=== PATIENT | female | born 1970 | race Caucasian/White ===

== ENCOUNTER 2017-05-04 23:06 | Inpatient (IN) | payer OTHER ==
[~2017-05-04] VITALS: Ht 165.1 cm; Wt 106.1 kg
[2017-05-05] VITALS (10 sets, daily range): BP systolic 104–139; BP diastolic 58–90
[2017-05-05] MEDS ORDERED: PROVENTIL HFA6.7 GM IH (00:58)
[2017-05-05] MEDS ORDERED: DEXT30CA6 PO (00:58)
[2017-05-05] MEDS ORDERED: FLUT1DIS5 IH (00:58)
[2017-05-05] MEDS ORDERED: BUSP10TA PO (00:58)
[2017-05-05] MEDS ORDERED: RIVA15TA PO (00:58)
[2017-05-05] MEDS ORDERED: TRAZ50TA15 PO (00:58)
[2017-05-05] MEDS ORDERED: METO100T11 PO (00:58)
[2017-05-05] MEDS ORDERED: TRAZ300T2 PO (00:58)
[2017-05-05] MEDS ORDERED: SUCR1TAB35 PO (00:58)
[2017-05-05] MEDS ORDERED: PANT40TA3 PO (00:58)
[2017-05-05] MEDS ORDERED: LOVA40TA2 PO (00:58)
[2017-05-05] MEDS ORDERED: ALPR0.5T PO (00:58)
[2017-05-05] MEDS ORDERED: MELO15TA23 PO (00:58)
[2017-05-05] MEDS ORDERED: TRAM50TA PO (00:58)
[2017-05-05] MEDS ORDERED: CYCL1DRO EACHEYE (00:58)
[2017-05-05] MEDS ORDERED: NON FORMULARY ITEM (Albuterol Sulfate (Proventil Hfa Inhaler) 2 PUFF) IH PRN (02:15)
[2017-05-05] MEDS ORDERED: ACETAMINOPHEN 325 MG TABLET. PO PRN (02:15)
[2017-05-05] MEDS ORDERED: traZODone 50 MG TABLET. PO PRN (02:15)
[2017-05-05] MEDS ORDERED: NON FORMULARY ITEM (Fluticasone/Salmeterol (Advair 500-50 Diskus) 1 PUFF) IH SCH (02:30)
[2017-05-05] MEDS: cycloSPORINE 0.05% OPTH 1 DROP DROPERETTE OU SCH ×3 (02:43→20:50)
[2017-05-05] MEDS: busPIRone 10 MG TABLET. PO SCH ×2 (02:43→20:50)
[2017-05-05] MEDS: CETIRIZINE HCL 10 MG TABLET. PO SCH ×2 (02:43→20:50)
[2017-05-05] MEDS: SUCRALFATE 1 GM TABLET. PO SCH ×5 (02:43→22:03)
[2017-05-05] MEDS: PANTOPRAZOLE 40 MG TABLET.DR. PO SCH ×3 (02:43→17:07)
[2017-05-05] MEDS: ALPRAZolam 0.5 MG TABLET PO PRN ×2 (02:43→22:16)
[2017-05-05] MEDS: traMADol 50 MG TABLET PO PRN ×3 (02:50→22:17)
[2017-05-05] MEDS: traZODone 100 MG TABLET. PO SCH ×2 (03:00→20:50)
[2017-05-05] MEDS ORDERED: ALBUTEROL SULFATE 2.5 MG/3 ML NEBU. NEB PRN (03:15)
[2017-05-05 05:49] LABS: BASO % 1 % (0-3); EOS % 4 % (0-3); HEMATOCRIT 31.9 % (36.0-47.0); LYMPH # 2.7 x10^3/uL (1.0-4.8); LYMPH % 39 % (24-48); MEAN CORPUSCULAR HEMOGLOBIN 31 pg (25-35); MEAN CORPUSCULAR HGB CONC 34 g/dL (31-37); MEAN CORPUSCULAR VOLUME 91 fL (79-100); MONO % 9 % (0-9); NEUT % 47 % (31-73); PLATELET COUNT 228 x10^3/uL (140-400); RED BLOOD COUNT 3.52 x10^6/uL (3.50-5.40); RED CELL DISTRIBUTION WIDTH 13.4 % (11.5-14.5)
[2017-05-05 06:03] LABS: INR 1.1 (0.8-1.1); PROTHROMBIN TIME PATIENT 13.5 SEC (11.7-14.0)
[2017-05-05 06:06] LABS: ALBUMIN/GLOBULIN RATIO 0.9 (1.0-1.7); CALCIUM 7.6 mg/dL (8.5-10.1); CREATININE 0.9 mg/dL (0.6-1.0); GFR 67.7; POTASSIUM 3.5 mmol/L (3.5-5.1); TOTAL BILIRUBIN 0.3 mg/dL (0.2-1.0); TOTAL PROTEIN 6.5 g/dL (6.4-8.2)
[2017-05-05] MEDS: BUDESONIDE 0.5 MG/2 ML NEBU. NEB SCH ×2 (07:31→20:09)
[2017-05-05] MEDS: ALBUTEROL SULFATE 2.5 MG/3 ML NEBU. NEB SCH ×4 (07:32→20:09)
[2017-05-05] MEDS: FLUTICASONE 50MCG/NASAL SPRAY 16GM BOTTLE. NS SCH (08:18)
[2017-05-05] MEDS: METOPROLOL SUCC 24HR ER 100 MG TAB.ER.24H. PO SCH (08:24)
[2017-05-05] MEDS: HYDROcodone/APAP 5/325MG 1 TAB TABLET PO PRN ×2 (08:37→19:57)
[2017-05-05] MEDS ORDERED: AMPHETAMINE PO SCH (09:00)
[2017-05-05] MEDS ORDERED: DEXTROAMPHETAMINE PO SCH (09:00)
--- NOTE | 2017-05-05 09:06 | PDOC1 ---
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 DID NOT TAKE this med. She then went to urinate, and had large amount of blood and blood clots in her underwear. She then had onset of abd pain, first in upper abdomen, then lower pain with some cramping consistency. Her PE was years ago , but she has persistently high D-dimer, without worsening dyspnea Pain currently 04/30, no stool since arriving here just after midnight. Past Medical History Cardiovascular: HTN, Hyperlipidemia Pulmonary: Pulmonary embolus GI: No pertinent hx Heme/Onc: No pertinent hx Hepatobiliary: No pertinent hx Psych: Anxiety Musculoskeletal: low back pain Rheumatologic: No pertinent hx ENT: No pertinent hx Renal/: No pertinent hx Endocrine: No pertinent hx Family History Family History: No Significant Social History Smoke: No ALCOHOL: none Drugs: None Current Medications Current Medications Current Medications Ondansetron HCl (Zofran) 4 mg PRN Q6HRS PRN IV NAUSEA/VOMITING; Start 05/05/17 at 02:15 Acetaminophen (Tylenol) 650 mg PRN Q6HRS PRN PO PAIN Last administered on 02:44; Start 05/05/17 at 02:15 Acetaminophen/ Hydrocodone Bitart (Lortab 5/325) 1 tab PRN Q6HRS PRN PO PAIN Last administered on 05/05/17 08:37; Start 05/05/17 at 02:15 Alprazolam (Xanax) 0.5 mg PRN DAILY PRN PO ANXIETY / AGITATION Last administered on 05/05/17 02:43; Start 05/05/17 at 02:15 Buspirone HCl (Buspar) 20 mg HS PO Last administered on 05/05/17 02:43; Start 05/05/17 at 02:30 Cyclosporine (Restasis) 1 drop BID OU Last administered on 05/05/17 08:18; Start 05/05/17 at 02:30 Metoprolol Succinate (Toprol Xl) 100 mg DAILY PO Last administered on 08:24; Start 05/05/17 at 09:00 Pantoprazole Sodium (Protonix) 40 mg BIDBFRMEAL PO Last administered on 08:17; Start 05/05/17 at 02:30 Sucralfate (Carafate) 1 gm QID PO Last administered on 05/05/17 08:17; Start 05/05/17 at 02:30 Tramadol HCl (Ultram) 100 mg PRN Q6HRS PRN PO PAIN Last administered on 02:50; Start 05/05/17 at 02:15 Trazodone HCl (Desyrel) 50 mg PRN DAILY PRN PO ANXIETY; Start 05/05/17 at 02:15 Non-Formulary Medication 2 puff PRN Q12HRS PRN IH FOR ASTHMA; Start 05/05/17 at 02:15; Status UNV Non-Formulary Medication 30 mg DAILY PO ; Start 05/05/17 at 09:00; Status UNV Non-Formulary Medication 1 puff BID IH ; Start 05/05/17 at 02:30; Status UNV Atorvastatin Calcium (Lipitor) 10 mg HS PO ; Start 05/05/17 at 21:00 Trazodone HCl (Desyrel) 300 mg HS PO Last administered on 05/05/17 03:00; Start 05/05/17 at 03:00 Cetirizine HCl (ZyrTEC) 10 mg QHS PO Last administered on 05/05/17 02:43; Start 05/05/17 at 02:30 Fluticasone Propionate (Flonase) 2 spray DAILY NS Last administered on 08:18; Start 05/05/17 at 09:00 Albuterol Sulfate (Ventolin Neb Soln) 2.5 mg PRN Q12HRS PRN NEB SHORTNESS OF BREATH; Start 05/05/17 at 03:15 Budesonide (Pulmicort) 0.5 mg RTBID NEB Last administered on 05/05/17 07:31; Start 05/05/17 at 08:00 Albuterol Sulfate (Ventolin Neb Soln) 2.5 mg RTQID NEB Last administered on 07:32; Start 05/05/17 at 08:00 Active Scripts Active Reported Restasis (Cyclosporine) 1 Each Droperette 1 Drop EACHEYE BID Proventil Hfa Inhaler (Albuterol Sulfate) 6.7 Gm Hfa.aer.ad 2 Puff IH PRN Q12HRS PRN Advair 500-50 Diskus (Fluticasone/Salmeterol) 1 Each Disk.w.dev 1 Puff IH BID Tramadol Hcl 50 Mg Tablet 100 Mg PO Q6H PRN Meloxicam 15 Mg Tablet 15 Mg PO DAILY Lovastatin 40 Mg Tablet 40 Mg PO HS Adderall Xr 30 Mg Capsule (Dextroamphetamine/Amphetamine) 30 Mg Cap.er.24h 30 Mg PO DAILY Xanax (Alprazolam) 0.5 Mg Tablet 0.5 Mg PO PRN DAILY PRN Trazodone Hcl 50 Mg Tablet 50 Mg PO PRN DAILY PRN Trazodone Hcl 300 Mg Tablet 300 Mg PO HS Protonix (Pantoprazole Sodium) 40 Mg Tablet.dr 40 Mg PO BID Carafate (Sucralfate) 1 Gm Tablet 1 Tab PO QID Xarelto (Rivaroxaban) 15 Mg Tablet 15 Mg PO DAILY Metoprolol Succinate ( Xl ) (Metoprolol Succinate) 100 Mg Tab.er.24h 100 Mg PO DAILY Buspirone Hcl 10 Mg Tablet 20 Mg PO HS Allergies Allergies: Coded Allergies: codeine (Verified Allergy, Unknown, 05/05/17) morphine (Verified Allergy, Unknown, 05/05/17) ROS General: YES: Malaise, No: Chills, Night Sweats, Fatigue, Appetite, Other PSYCHOLOGICAL ROS: YES: Anxiety, Sleep disturbances, No: Behavioral Disorder, Concentration difficultie, Decreased libido, Depression, Disorientation, Hallucinations, Hostility, Irritablity, Memory difficulties, Mood Swings, Obsessive thoughts, Physical abuse Eyes: No Blurry vision, No Decreased vision, No Double vision, No Dry eyes, No Excessive tearing, No Eye Pain, No Itchy Eyes, No Loss of vision, No Photophobia , No Scotomata, No Uses contacts, No Uses glasses, No Other HEENT: No: Heacaches, Visual Changes, Hearing change, Nasal congestion, Nasal discharge, Oral lesions, Sinus pain, Sore Throat, Epistaxis, Sneezing, Snoring, Tinnitus, Vertigo, Vocal changes, Other Respiratory: No: Cough, Hemoptysis, Orthopnea, Pleuritic Pain, Shortness of breath, SOB with excertion, Sputum Changes, Stridor, Tachypnea, Wheezing, Other Cardiovascular: No Chest Pain, No Palpitations, No Orthopnea, No Paroxysmal Noc. Dyspnea, No Edema, No Lt Headedness, No Other Gastrointestinal: Yes Abdominal Pain, Yes Hematochezia, No Nausea, No Vomiting, No Diarrhea, No Constipation, No Melena, No Other Genitourinary: No Dysuria, No Frequency, No Incontinence, No Hematuria, No Retention, No Discharge, No Urgency, No Pain, No Flank Pain, No Other, No , No , No , No , No , No , No Musculoskeletal: No Gait Disturbance, No Joint Pain, No Joint Stiffness, No Joint Swelling, No Muscle Pain, No Muscular Weakness, No Pain In:, No Swelling In:, No Other Neurological: No Behavorial Changes, No Bowel/Bladder ControlChng, No Confusion , No Dizziness, No Gait Disturbance, No Headaches, No Impaired Coord/balance, No Memory Loss, No Numbness/Tingling, No Seizures, No Speech Problems, No Tremors, No Visual Changes, No Weakness, No Other Skin: No Dry Skin, No Eczema, No Hair Changes, No Lumps, No Mole Changes, No Mottling, No Nail Changes, No Pruritus, No Rash, No Skin Lesion Changes, No Other, No Acne Physical Exam General: Alert, Oriented X3, Cooperative, mild distress HEENT: Atraumatic, PERRLA, Mucous membr. moist/pink Lungs: Clear to auscultation, Normal air movement Heart: S1S2, no murmurs Abdomen: Normal bowel sounds, Soft (tender, no peritoneal sign, no guarding, no rebound, ) Rectal Exam: not examined PELVIC: Nml ext uterus Extremities: No cyanosis, No edema, Normal pulses Neuro: Normal gait, Normal tone, Sensation intact Psych/Mental Status: Mood NL Vitals Vitals Vital Signs Date Time Temp Pulse Resp B/P (MAP) Pulse Ox O2 Delivery O2 Flow Rate FiO2 05/05/17 08:37 Room Air 05/05/17 08:24 78 107/77 05/05/17 07:32 94 05/05/17 07:00 97.9 16 97.9 Labs Labs Laboratory Tests Test 05/05/17 05:30 White Blood Count 7.0 x10^3/uL (4.0-11.0) Red Blood Count 3.52 x10^6/uL (3.50-5.40) Hemoglobin 11.0 g/dL (12.0-15.5) Hematocrit 31.9 % (36.0-47.0) Mean Corpuscular Volume 91 fL (79-100) Mean Corpuscular Hemoglobin 31 pg (25-35) Mean Corpuscular Hemoglobin Concent 34 g/dL (31-37) Red Cell Distribution Width 13.4 % (11.5-14.5) Platelet Count 228 x10^3/uL (140-400) Neutrophils (%) (Auto) 47 % (31-73) Lymphocytes (%) (Auto) 39 % (24-48) Monocytes (%) (Auto) 9 % (0-9) Eosinophils (%) (Auto) 4 % (0-3) Basophils (%) (Auto) 1 % (0-3) Neutrophils # (Auto) 3.3 x10^3uL (1.8-7.7) Lymphocytes # (Auto) 2.7 x10^3/uL (1.0-4.8) Monocytes # (Auto) 0.6 x10^3/uL (0.0-1.1) Eosinophils # (Auto) 0.3 x10^3/uL (0.0-0.7) Basophils # (Auto) 0.0 x10^3/uL (0.0-0.2) Prothrombin Time 13.5 SEC (11.7-14.0) Prothromb Time International Ratio 1.1 (0.8-1.1) Sodium Level 142 mmol/L (136-145) Potassium Level 3.5 mmol/L (3.5-5.1) Chloride Level 106 mmol/L (98-107) Carbon Dioxide Level 29 mmol/L (21-32) Anion Gap 7 (6-14) Blood Urea Nitrogen 11 mg/dL (7-20) Creatinine 0.9 mg/dL (0.6-1.0) Estimated GFR (Cockcroft-Gault) 67.7 BUN/Creatinine Ratio 12 (6-20) Glucose Level 98 mg/dL (70-99) Calcium Level 7.6 mg/dL (8.5-10.1) Total Bilirubin 0.3 mg/dL (0.2-1.0) Aspartate Amino Transf (AST/SGOT) 27 U/L (15-37) Alanine Aminotransferase (ALT/SGPT) 44 U/L (14-59) Alkaline Phosphatase 83 U/L (46-116) Total Protein 6.5 g/dL (6.4-8.2) Albumin 3.0 g/dL (3.4-5.0) Albumin/Globulin Ratio 0.9 (1.0-1.7) Laboratory Tests Test 05/05/17 05:30 White Blood Count 7.0 x10^3/uL (4.0-11.0) Red Blood Count 3.52 x10^6/uL (3.50-5.40) Hemoglobin 11.0 g/dL (12.0-15.5) Hematocrit 31.9 % (36.0-47.0) Mean Corpuscular Volume 91 fL (79-100) Mean Corpuscular Hemoglobin 31 pg (25-35) Mean Corpuscular Hemoglobin Concent 34 g/dL (31-37) Red Cell Distribution Width 13.4 % (11.5-14.5) Platelet Count 228 x10^3/uL (140-400) Neutrophils (%) (Auto) 47 % (31-73) Lymphocytes (%) (Auto) 39 % (24-48) Monocytes (%) (Auto) 9 % (0-9) Eosinophils (%) (Auto) 4 % (0-3) Basophils (%) (Auto) 1 % (0-3) Neutrophils # (Auto) 3.3 x10^3uL (1.8-7.7) Lymphocytes # (Auto) 2.7 x10^3/uL (1.0-4.8) Monocytes # (Auto) 0.6 x10^3/uL (0.0-1.1) Eosinophils # (Auto) 0.3 x10^3/uL (0.0-0.7) Basophils # (Auto) 0.0 x10^3/uL (0.0-0.2) Prothrombin Time 13.5 SEC (11.7-14.0) Prothromb Time International Ratio 1.1 (0.8-1.1) Sodium Level 142 mmol/L (136-145) Potassium Level 3.5 mmol/L (3.5-5.1) Chloride Level 106 mmol/L (98-107) Carbon Dioxide Level 29 mmol/L (21-32) Anion Gap 7 (6-14) Blood Urea Nitrogen 11 mg/dL (7-20) Creatinine 0.9 mg/dL (0.6-1.0) Estimated GFR (Cockcroft-Gault) 67.7 BUN/Creatinine Ratio 12 (6-20) Glucose Level 98 mg/dL (70-99) Calcium Level 7.6 mg/dL (8.5-10.1) Total Bilirubin 0.3 mg/dL (0.2-1.0) Aspartate Amino Transf (AST/SGOT) 27 U/L (15-37) Alanine Aminotransferase (ALT/SGPT) 44 U/L (14-59) Alkaline Phosphatase 83 U/L (46-116) Total Protein 6.5 g/dL (6.4-8.2) Albumin 3.0 g/dL (3.4-5.0) Albumin/Globulin Ratio 0.9 (1.0-1.7) VTE Prophylaxis Ordered VTE Prophylaxis Devices: Yes VTE Pharmacological Prophylaxi: Contraindicated Assessment/Plan Assessment/Plan BRBPR, Hematochezia, acute blood loss Prior PE, coagulopathy, 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 ANNELIESE CHAVES MD May 05, 2017 09:05
[2017-05-05] MEDS: POTASSIUM CL 20MEQ D5-0.45NACL 1,000 ML IV SCH ×2 (10:13→22:02)
--- NOTE | 2017-05-05 10:28 | PDOC2 ---
GI CONSULT Reason For Consult: Rectal bleeding HPI: HPI: 47 y/o female transferred from [facility]. PMH significant for PE, stopped Xarelto in 01/2017, was advised to restart yesterday but didn't. Takes ASA QD, Meloxicam QD , pantoprazole QD-BID, and Carafate QID. Had all teeth pulled earlier this month, additionally took 6-8 ibuprofen at a time, stopped 8 days ago. Has been vomiting nightly, no hematemesis. Yesterday passed blood clots w/ stool, then had another episode of straight red blood. Upper abd pain and "firmness" spreading down. Intentional weight loss, 11 pounds. Last EGD in 2013 w/ Dr. Caterina Condon, only hiatal hernia. Colonoscopy long ago. Hgb 11.5 (now 11), INR 1.1, CMP unremarkable, hemoccult positive. PMH: PMH: HTN, HLD, PE, asthma, KRISS, GERD, hiatal hernia, DM, nephrolithiasis, ADHD, anxiety, , hysterectomy, appendectomy, cholecystectomy FH: Family History: Other (Crohn's, pancreatitis) Social History: Smoke: <1 pack per day ALCOHOL: none Drugs: None ROS: GEN: Denies fevers, chills, sweats HEENT: Denies blurred vision, sore throat CV: Denies chest pain RESP: Denies shortness of air, cough GI: Per HPI : Denies hematuria, dysuria ENDO: +weight loss NEURO: Denies confusion, dizziness MSK: +fatigue +arthritis SKIN: Denies jaundice, pruritus Vitals: Vitals: Vital Signs Date Time Temp Pulse Resp B/P (MAP) Pulse Ox O2 Delivery O2 Flow Rate FiO2 05/05/17 09:40 Room Air 05/05/17 08:24 78 107/77 05/05/17 07:32 94 05/05/17 07:00 97.9 16 97.9 Labs: Labs: Laboratory Tests Test 05/05/17 05:30 White Blood Count 7.0 x10^3/uL (4.0-11.0) Red Blood Count 3.52 x10^6/uL (3.50-5.40) Hemoglobin 11.0 g/dL (12.0-15.5) Hematocrit 31.9 % (36.0-47.0) Mean Corpuscular Volume 91 fL (79-100) Mean Corpuscular Hemoglobin 31 pg (25-35) Mean Corpuscular Hemoglobin Concent 34 g/dL (31-37) Red Cell Distribution Width 13.4 % (11.5-14.5) Platelet Count 228 x10^3/uL (140-400) Neutrophils (%) (Auto) 47 % (31-73) Lymphocytes (%) (Auto) 39 % (24-48) Monocytes (%) (Auto) 9 % (0-9) Eosinophils (%) (Auto) 4 % (0-3) Basophils (%) (Auto) 1 % (0-3) Neutrophils # (Auto) 3.3 x10^3uL (1.8-7.7) Lymphocytes # (Auto) 2.7 x10^3/uL (1.0-4.8) Monocytes # (Auto) 0.6 x10^3/uL (0.0-1.1) Eosinophils # (Auto) 0.3 x10^3/uL (0.0-0.7) Basophils # (Auto) 0.0 x10^3/uL (0.0-0.2) Prothrombin Time 13.5 SEC (11.7-14.0) Prothromb Time International Ratio 1.1 (0.8-1.1) Sodium Level 142 mmol/L (136-145) Potassium Level 3.5 mmol/L (3.5-5.1) Chloride Level 106 mmol/L (98-107) Carbon Dioxide Level 29 mmol/L (21-32) Anion Gap 7 (6-14) Blood Urea Nitrogen 11 mg/dL (7-20) Creatinine 0.9 mg/dL (0.6-1.0) Estimated GFR (Cockcroft-Gault) 67.7 BUN/Creatinine Ratio 12 (6-20) Glucose Level 98 mg/dL (70-99) Calcium Level 7.6 mg/dL (8.5-10.1) Total Bilirubin 0.3 mg/dL (0.2-1.0) Aspartate Amino Transf (AST/SGOT) 27 U/L (15-37) Alanine Aminotransferase (ALT/SGPT) 44 U/L (14-59) Alkaline Phosphatase 83 U/L (46-116) Total Protein 6.5 g/dL (6.4-8.2) Albumin 3.0 g/dL (3.4-5.0) Albumin/Globulin Ratio 0.9 (1.0-1.7) Allergies: Coded Allergies: codeine (Verified Allergy, Unknown, 05/05/17) morphine (Verified Allergy, Unknown, 05/05/17) Medications: Current Medications Medications (Trade) Dose Ordered Sig/Nikki Route PRN Reason Start Time Stop Time Status Last Admin Dose Admin Acetaminophen (Tylenol) 650 mg PRN Q6HRS PRN PO PAIN 05/05/17 02:15 05/05/17 02:44 Acetaminophen/ Hydrocodone Bitart (Lortab 5/325) 1 tab PRN Q6HRS PRN PO PAIN 05/05/17 02:15 05/05/17 08:37 Alprazolam (Xanax) 0.5 mg PRN DAILY PRN PO ANXIETY / AGITATION 05/05/17 02:15 05/05/17 02:43 Buspirone HCl (Buspar) 20 mg HS PO 05/05/17 02:30 05/05/17 02:43 Cyclosporine (Restasis) 1 drop BID OU 05/05/17 02:30 05/05/17 08:18 Metoprolol Succinate (Toprol Xl) 100 mg DAILY PO 05/05/17 09:00 05/05/17 08:24 Pantoprazole Sodium (Protonix) 40 mg BIDBFRMEAL PO 05/05/17 02:30 05/05/17 08:17 Sucralfate (Carafate) 1 gm QID PO 05/05/17 02:30 05/05/17 08:17 Tramadol HCl (Ultram) 100 mg PRN Q6HRS PRN PO PAIN 05/05/17 02:15 05/05/17 02:50 Trazodone HCl (Desyrel) 300 mg HS PO 05/05/17 03:00 05/05/17 03:00 Cetirizine HCl (ZyrTEC) 10 mg QHS PO 05/05/17 02:30 05/05/17 02:43 Fluticasone Propionate (Flonase) 2 spray DAILY NS 05/05/17 09:00 05/05/17 08:18 Budesonide (Pulmicort) 0.5 mg RTBID NEB 05/05/17 08:00 05/05/17 07:31 Albuterol Sulfate (Ventolin Neb Soln) 2.5 mg RTQID NEB 05/05/17 08:00 05/05/17 07:32 Potassium Chloride/Dextrose/ Sod Cl 1,000 ml @ 125 mls/hr Q8H IV 05/05/17 09:15 05/05/17 10:13 Imaging: Imaging: Reviewed per [facility] recs. PE: GEN: NAD, overweight HEENT: Atraumatic, PERRL LUNGS: CTAB anteriorly HEART: RRR ABD: BS+, epigastric pain to BUQ, less so lower EXTREMITY: No edema SKIN: No rashes, no jaundice NEURO/PSYCH: A & O 3 A/P: A/P: Vomiting, rectal bleeding, abdominal pain, NSAID use -vomiting during the night recently -rectal bleeding started yesterday GERD -on PPI QD-BID -last EGD 2013 w/ hiatal hernia CRC screen -colonoscopy long ago H/o PE, elevated D-dimer recently -has not restarted Xarelto -per primary OA, recent dental extractions -- NPO for EGD this afternoon. If unrevealing, colonoscopy tomorrow after prep. Called to GI lab, medical receptionist assistant on floor. KARY VELASQUEZ May 05, 2017 10:28
[2017-05-05] MEDS ORDERED: NICOTINE POLACRILEX 2MG GUM PACKAGE of 12. BC PRN (11:45)
[2017-05-05] MEDS ORDERED: NICOTINE 21MG PATCH. TD PRN (11:45)
[2017-05-05] MEDS: ONDANSETRON PF 4 MG/2 ML VIAL. IV PRN ×2 (12:24→19:57)
[2017-05-05] MEDS: fentaNYL PF VIAL 100 MCG/2 ML VIAL IV PRN ×2 (12:25→15:53)
[2017-05-05 12:59] LABS: HEMATOCRIT 31.5 % (36.0-47.0); HEMOGLOBIN 10.9 g/dL (12.0-15.5)
[2017-05-05] MEDS ORDERED: IV NORMAL SALINE 1000ML BAG 1,000 ML IV SCH (14:00)
--- NOTE | 2017-05-05 14:26 | ACF ---
Admission Forms Criteria GASTROINTESTINAL BLEEDING Clinical Indications for Inpatient Care (Place 'X' for any and all applicable criteria): Ongoing inpatient care may be indicated for gastrointestinal bleeding with ANY ONE of the following (4)(20)(21)(22)(23)(24): [X ]I. Active bleeding (eg, fresh voluminous blood in emesis or nasogastric aspirate, or per rectum) [ ]II. Hemodynamic instability [ ]III. Anticoagulation therapy or coagulopathy ((eg, advanced liver disease, irreversible anticoagulation) [ ]IV. Ischemic colitis (22) [ ]V. Endoscopy showing arterial bleeding, adherent clot, nonbleeding visible vessel, varices, flat red spots, ulcer size greater than 2 cm, or portal hypertensive gastropathy [ ]. High-risk low platelet count [ ]VII. Anemia requiring inpatient care as indicated by ANY ONE of the following a)[ ] Cognitive impairment b)[ ] Syncope c)[ ] Heart failure d)[ ] Chest pain e)[ ] Dyspnea f)[ ] Other findings suggesting inadequate perfusion (eg, peripheral or myocardial ischemia, end organ dysfunction) [ ]VIII. High-risk low platelet count [ ]IX. Suspected variceal cause of bleeding as indicated by ANY ONE of the following(27)(28): a)[ ] Known varices b)[ ] Hepatomegaly or splenomegaly c)[ ] Ascites d)[ ] Jaundice or scleral icterus e)[ ] History of liver disease (eg, cirrhosis) f)[ ] Physical findings of portal hypertension (eg, caput medusa) g)[ ] Comorbid disorder indicating risk for portal vein thrombosis (eg , abdominal surgery, sepsis, shock, exchange transfusion, prior umbilical vein catheterization) Extended stay may be needed until ALL of the following are present(20)(38)(47): [ ]a) Hemodynamic stability [ ]b) No evidence of active bleeding (eg, stable Hematocrit) [ ]c) Platelet count, prothrombin time, and partial thromboplastin time acceptable for next level of care [ ]d) Surgical or other acute intervention not needed [ ]e) Oral hydration and diet tolerated The original [email or web address] content created by [employer] has been revised. The portions of the content which have been revised are identified through the use of italic text or in bold, and [employer] has neither reviewed nor approved the modified material. All other unmodified content is copyright [facility]. Please see references footnoted in the original [facility] edition 2016 Admission Criteria Met?: Yes GENIE KINGSLEY May 05, 2017 14:26
[2017-05-05] MEDS ORDERED: LIDOCAINE 2% PF Vial for OR 5 ML VIAL. ONE (14:39)
[2017-05-05] MEDS ORDERED: PROPOFOL 20 ML IV ONE (14:39)
--- NOTE | 2017-05-05 14:50 | PDOC4 ---
Operative Note Operative Note EGD Meds Propofol per anesthesia Pre-op dx melena/acute blood loss anemia Post-op dx non-erosive gastritis Plan clear liquids colonoscopy after prep in am YUKO DAMON MD May 05, 2017 14:50
[2017-05-05] MEDS ORDERED: BISACODYL 5 MG TABLET.DR. PO ONE ×3 (15:00→17:00)
[2017-05-05] MEDS ORDERED: POLYETHYLENE GLYCOL 3350 238 GM POWDER PO ONE (15:00)
--- NOTE | 2017-05-05 17:02 | PDOC ---
Provider Note Provider Note Hem Onc consult: -Hematochezia, acute blood loss - GI w/u ongoing. -Prior PE 2014, agree not to resume xarelto due to GI bleed. -Ecchymoses due to aspirin. see dictation [id number] KAYDEN MATHIS MD May 05, 2017 17:02
[2017-05-05 17:25] LABS: % SAT IRON 34 % (15-34); IRON,SERUM 87 ug/dL (50-170)
[2017-05-05 17:54] LABS: VITAMIN-B12 448 pg/mL (247-911)
[2017-05-05] MEDS ORDERED: ATORVASTATIN CALCIUM 10 MG TABLET. PO SCH (21:00)
[2017-05-06] VITALS (7 sets, daily range): BP systolic 110–145; BP diastolic 58–104
[2017-05-06] MEDS: POTASSIUM CL 20MEQ D5-0.45NACL 1,000 ML IV SCH ×3 (01:15→17:15)
[2017-05-06] MEDS: HYDROcodone/APAP 5/325MG 1 TAB TABLET PO PRN (03:32)
--- NOTE | 2017-05-06 03:41 | CONS ---
DATE OF CONSULTATION: 05/05/2017 REQUESTING PHYSICIAN: Dr. Lulu Man. REASON FOR CONSULTATION: Anemia due to GI bleed and history of pulmonary embolism and the patient has easy bruisability. HISTORY OF PRESENT ILLNESS: The patient is a 47-year-old female who reports having had a pneumonia in 02/2015 requiring hospitalization. On 04/27/2015, she developed pulmonary embolism and she was started on Xarelto. In 01/2017, the Xarelto was discontinued as her D-dimer had improved as per the patient. On 04/19/2017, she was noted to have an elevated D-dimer and she was asked to resume Xarelto, but she has not yet resumed it. She was evaluated by Hematology/Oncology at [facility] on 05/02/2017 for a consultation and she was recommended to resume Xarelto. She also underwent further laboratory evaluation on 05/02/2017 and her D-dimer was 1.06. Protein C activity was 114, protein S activity was 98, prothrombin gene mutation was negative. Beta-2 glycoprotein levels were normal. Cardiolipin IgM antibody was mildly elevated at 15. She denies any recurrence of pulmonary embolism. There is no history of DVT. She was started on aspirin on 05/02/2017 and then she noticed easy bruisability since the initiation of aspirin. On 05/04/2017, she noticed bright red blood in the stools and hence she came into the Emergency Room at [facility]. She underwent CT scan of the abdomen and pelvis that did not reveal any acute abnormalities and she was transferred to [facility]. She was evaluated by Gastroenterology and she underwent an upper endoscopy on 05/05/2017 that revealed nonerosive gastritis. She is going to have a colonoscopy on 05/06/2017. She denies nosebleeds or gum bleeding. No hematuria or hemoptysis, no hematemesis. She does have nausea, vomiting at times. PAST MEDICAL HISTORY: Hypertension, hyperlipidemia, pulmonary embolism in 2014, bronchial asthma, obstructive sleep apnea, GERD, hiatal hernia, diabetes mellitus, nephrolithiasis, ADHD, anxiety, caesarean section, hysterectomy, appendectomy, and cholecystectomy. FAMILY HISTORY: Positive for Crohn disease and pancreatitis. SOCIAL HISTORY: She smokes less than 1 pack a day. No alcohol abuse. REVIEW OF SYSTEMS: A 12-point review of system was performed. Pertinent positives are mentioned in the history of present illness. Rest of the system review is negative. PHYSICAL EXAMINATION: GENERAL APPEARANCE: The patient is a 47-year-old female who is in no acute cardiorespiratory distress. VITAL SIGNS: Blood pressure 135/90, temperature 97.7. HEENT: Atraumatic, normocephalic. Eyes: No icterus. NECK: Supple. CHEST: Bilaterally symmetrical. HEART: S1, S2 normal. ABDOMEN: Soft, nontender. CENTRAL NERVOUS SYSTEM: No focal neurological deficits. LYMPHATICS: No lymphadenopathy. SKIN: No rashes. PSYCHOLOGIC: Mood and affect are appropriate. MUSCULOSKELETAL: No joint effusions. LABORATORY DATA: WBC 7, hemoglobin 11, platelet count 228, creatinine 0.9. IMPRESSION AND PLAN: 1. Anemia secondary to gastrointestinal bleed. She has evidence of bright red blood in the stools. GI has been consulted. EGD was done on 05/05/2017 that revealed nonerosive gastritis. Colonoscopy is pending. She was started on aspirin on 05/02/2017. She has not resumed Xarelto as yet. I will await GI workup. I have advised her not to resume Xarelto because of the recent GI bleed, I have also advised her to follow up with her field radio operator at [facility] upon discharge. 2. Pulmonary embolism in 2014 and she was on Xarelto up until 01/2017. She was advised to resume Xarelto on 05/02/2017, but she has not yet done that. I would agree to defer Xarelto because of GI bleed. I have advised her to see her field radio operator at [facility]. 3. Gastrointestinal bleed, I appreciate gastroenterology evaluation and management. 4. Ecchymosis, which started on 05/03/2017. She started aspirin on 05/02/2017 which is the likely etiology of ecchymosis. I do not suspect a primary hematologic disorder. I do not suspect a bleeding disorder as she has had surgeries in the past which was not associated with any bleeding events. Hence, I do not suspect von Willebrand disease. KAYDEN MATHIS MD DR: VIKRAM/violetta JOB#: [id number] / [id number] MTDD
[2017-05-06] MEDS: IV RINGERS,LACTATED 1000ML 1,000 ML IV SCH ×2 (06:52→14:51)
[2017-05-06] MEDS ORDERED: MIDAZOLAM HCL/PF 2 MG/2 ML VIAL. IV PRN (07:00)
[2017-05-06] MEDS ORDERED: IV RINGERS,LACTATED 1000ML 1,000 ML IV SCH (07:00)
[2017-05-06] MEDS ORDERED: LIDOCAINE 1% 1 ML SYRINGE. ID PRN ×2 (07:00)
[2017-05-06] MEDS ORDERED: ONDANSETRON PF 4 MG/2 ML VIAL. IV PRN (07:00)
[2017-05-06] MEDS ORDERED: PROCHLORPERAZINE 10 MG/2 ML VIAL. IV PRN (07:00)
[2017-05-06] MEDS ORDERED: fentaNYL PF VIAL 100 MCG/2 ML VIAL IV PRN ×4 (07:00)
[2017-05-06] MEDS ORDERED: PROPOFOL 40 ML IV ONE (07:30)
[2017-05-06] MEDS ORDERED: LIDOCAINE 2% PF Vial for OR 5 ML VIAL. ONE (07:30)
[2017-05-06] MEDS: BUDESONIDE 0.5 MG/2 ML NEBU. NEB SCH ×2 (08:00→11:01)
[2017-05-06] MEDS: ALBUTEROL SULFATE 2.5 MG/3 ML NEBU. NEB SCH ×3 (08:00→15:27)
--- NOTE | 2017-05-06 08:00 | PDOC4 ---
Operative Note Operative Note Colonoscopy Meds propofol per anesthesia Pre-op dx acute blood loss anemia/hematochezia Post-op dx internal hemorrhoids Plan advance diet and activity resume anticoagulation YUKO DAMON MD May 06, 2017 08:00
[2017-05-06] MEDS: SUCRALFATE 1 GM TABLET. PO SCH ×3 (09:03→17:28)
[2017-05-06] MEDS: METOPROLOL SUCC 24HR ER 100 MG TAB.ER.24H. PO SCH (09:03)
[2017-05-06] MEDS: PANTOPRAZOLE 40 MG TABLET.DR. PO SCH ×2 (09:03→17:28)
[2017-05-06] MEDS: cycloSPORINE 0.05% OPTH 1 DROP DROPERETTE OU SCH (09:04)
[2017-05-06] MEDS: traMADol 50 MG TABLET PO PRN (09:04)
[2017-05-06] MEDS: FLUTICASONE 50MCG/NASAL SPRAY 16GM BOTTLE. NS SCH (09:08)
[2017-05-06 10:13] LABS: BASO % 1 % (0-3); EOS % 4 % (0-3); HEMATOCRIT 33.8 % (36.0-47.0); HEMOGLOBIN 11.1 g/dL (12.0-15.5); LYMPH # 2.1 x10^3/uL (1.0-4.8); LYMPH % 34 % (24-48); MEAN CORPUSCULAR HEMOGLOBIN 31 pg (25-35); MEAN CORPUSCULAR HGB CONC 33 g/dL (31-37); MEAN CORPUSCULAR VOLUME 94 fL (79-100); MONO % 7 % (0-9); NEUT % 54 % (31-73); PLATELET COUNT 223 x10^3/uL (140-400); RED CELL DISTRIBUTION WIDTH 13.5 % (11.5-14.5); WHITE BLOOD COUNT 6.1 x10^3/uL (4.0-11.0)
--- NOTE | 2017-05-06 11:17 | PDOC ---
PROGRESS NOTES Subjective Subjective c/c - f/u of anemia/ h/o PE Objective Objective Vital Signs Date Time Temp Pulse Resp B/P (MAP) Pulse Ox O2 Delivery O2 Flow Rate FiO2 05/06/17 11:04 95 Room Air 05/06/17 09:30 78 22 119/66 (83) 05/06/17 09:15 97.6 97.6 05/06/17 08:01 4 Intake and Output 05/06/17 07:00 Intake Total 1980 ml Output Total 1950 ml Balance 30 ml Intake Oral 1980 ml Output Urine Total 1250 ml Urine/Stool Mix 700 ml Physical Exam Heart: Normal S1, Normal S2 General: Alert, Oriented X3 Lungs: Clear to auscultation Neuro: Normal speech Psych/Mental Status: Mental status NL Assessment Assessment IMPRESSION AND PLAN: 1. Anemia secondary to gastrointestinal bleed. She has evidence of bright red blood in the stools. GI has been consulted. EGD was done on 05/05/2017 that revealed nonerosive gastritis. Colonoscopy 05/06/17: internal hemorrhoids. Her PE event followed a period of hospitalization for pneumonia, hence it was a provoked event. In view of her recent bleed, risks of anticoagulation outweigh benefits and hence I would not restart xarelto. I have also advised her to follow up with her assistant superintendent at [facility] upon discharge for his opinion. 2. Pulmonary embolism in 2014 and she was on Xarelto up until 01/2017. She was advised to resume Xarelto on 05/02/2017, but she has not yet done that. Her PE event followed a period of hospitalization for pneumonia, hence it was a provoked event. In view of her recent bleed, risks of anticoagulation outweigh benefits and hence I would not restart xarelto. I have advised her to see her assistant superintendent at [facility]. 3. Gastrointestinal bleed, I appreciate gastroenterology evaluation and management. 4. Ecchymosis, which started on 05/03/2017. She started aspirin on 05/02/2017 which is the likely etiology of ecchymosis. I do not suspect a primary hematologic disorder. I do not suspect a bleeding disorder as she has had surgeries in the past which was not associated with any bleeding events. Hence, I do not suspect von Willebrand disease. Comment Review of Relevant I have reviewed the following items mustapha (where applicable) has been applied. Labs Laboratory Tests Test 05/05/17 05:30 05/05/17 12:45 05/06/17 09:45 White Blood Count 7.0 x10^3/uL (4.0-11.0) 6.1 x10^3/uL (4.0-11.0) Red Blood Count 3.52 x10^6/uL (3.50-5.40) 3.60 x10^6/uL (3.50-5.40) Hemoglobin 11.0 g/dL (12.0-15.5) 10.9 g/dL (12.0-15.5) 11.1 g/dL (12.0-15.5) Hematocrit 31.9 % (36.0-47.0) 31.5 % (36.0-47.0) 33.8 % (36.0-47.0) Mean Corpuscular Volume 91 fL (79-100) 94 fL (79-100) Mean Corpuscular Hemoglobin 31 pg (25-35) 31 pg (25-35) Mean Corpuscular Hemoglobin Concent 34 g/dL (31-37) 35 g/dL (31-37) 33 g/dL (31-37) Red Cell Distribution Width 13.4 % (11.5-14.5) 13.5 % (11.5-14.5) Platelet Count 228 x10^3/uL (140-400) 223 x10^3/uL (140-400) Neutrophils (%) (Auto) 47 % (31-73) 54 % (31-73) Lymphocytes (%) (Auto) 39 % (24-48) 34 % (24-48) Monocytes (%) (Auto) 9 % (0-9) 7 % (0-9) Eosinophils (%) (Auto) 4 % (0-3) 4 % (0-3) Basophils (%) (Auto) 1 % (0-3) 1 % (0-3) Neutrophils # (Auto) 3.3 x10^3uL (1.8-7.7) 3.3 x10^3uL (1.8-7.7) Lymphocytes # (Auto) 2.7 x10^3/uL (1.0-4.8) 2.1 x10^3/uL (1.0-4.8) Monocytes # (Auto) 0.6 x10^3/uL (0.0-1.1) 0.4 x10^3/uL (0.0-1.1) Eosinophils # (Auto) 0.3 x10^3/uL (0.0-0.7) 0.3 x10^3/uL (0.0-0.7) Basophils # (Auto) 0.0 x10^3/uL (0.0-0.2) 0.0 x10^3/uL (0.0-0.2) Prothrombin Time 13.5 SEC (11.7-14.0) Prothromb Time International Ratio 1.1 (0.8-1.1) Sodium Level 142 mmol/L (136-145) Potassium Level 3.5 mmol/L (3.5-5.1) Chloride Level 106 mmol/L (98-107) Carbon Dioxide Level 29 mmol/L (21-32) Anion Gap 7 (6-14) Blood Urea Nitrogen 11 mg/dL (7-20) Creatinine 0.9 mg/dL (0.6-1.0) Estimated GFR (Cockcroft-Gault) 67.7 BUN/Creatinine Ratio 12 (6-20) Glucose Level 98 mg/dL (70-99) Calcium Level 7.6 mg/dL (8.5-10.1) Total Bilirubin 0.3 mg/dL (0.2-1.0) Aspartate Amino Transf (AST/SGOT) 27 U/L (15-37) Alanine Aminotransferase (ALT/SGPT) 44 U/L (14-59) Alkaline Phosphatase 83 U/L (46-116) Total Protein 6.5 g/dL (6.4-8.2) Albumin 3.0 g/dL (3.4-5.0) Albumin/Globulin Ratio 0.9 (1.0-1.7) Iron Level 87 ug/dL (50-170) Total Iron Binding Capacity 259 ug/dL (250-450) Iron Saturation 34 % (15-34) Ferritin 49 ng/mL (8-252) Vitamin B12 Level 448 pg/mL (247-911) Laboratory Tests Test 05/05/17 12:45 05/06/17 09:45 Hemoglobin 10.9 g/dL (12.0-15.5) 11.1 g/dL (12.0-15.5) Hematocrit 31.5 % (36.0-47.0) 33.8 % (36.0-47.0) Mean Corpuscular Hemoglobin Concent 35 g/dL (31-37) 33 g/dL (31-37) Iron Level 87 ug/dL (50-170) Total Iron Binding Capacity 259 ug/dL (250-450) Iron Saturation 34 % (15-34) Ferritin 49 ng/mL (8-252) Vitamin B12 Level 448 pg/mL (247-911) White Blood Count 6.1 x10^3/uL (4.0-11.0) Red Blood Count 3.60 x10^6/uL (3.50-5.40) Mean Corpuscular Volume 94 fL (79-100) Mean Corpuscular Hemoglobin 31 pg (25-35) Red Cell Distribution Width 13.5 % (11.5-14.5) Platelet Count 223 x10^3/uL (140-400) Neutrophils (%) (Auto) 54 % (31-73) Lymphocytes (%) (Auto) 34 % (24-48) Monocytes (%) (Auto) 7 % (0-9) Eosinophils (%) (Auto) 4 % (0-3) Basophils (%) (Auto) 1 % (0-3) Neutrophils # (Auto) 3.3 x10^3uL (1.8-7.7) Lymphocytes # (Auto) 2.1 x10^3/uL (1.0-4.8) Monocytes # (Auto) 0.4 x10^3/uL (0.0-1.1) Eosinophils # (Auto) 0.3 x10^3/uL (0.0-0.7) Basophils # (Auto) 0.0 x10^3/uL (0.0-0.2) Medications Current Medications Ondansetron HCl (Zofran) 4 mg PRN Q6HRS PRN IV NAUSEA/VOMITING Last administered on 05/05/17 19:57; Start 05/05/17 at 02:15 Acetaminophen (Tylenol) 650 mg PRN Q6HRS PRN PO PAIN Last administered on 02:44; Start 05/05/17 at 02:15 Acetaminophen/ Hydrocodone Bitart (Lortab 5/325) 1 tab PRN Q6HRS PRN PO PAIN Last administered on 05/06/17 03:32; Start 05/05/17 at 02:15 Alprazolam (Xanax) 0.5 mg PRN DAILY PRN PO ANXIETY / AGITATION Last administered on 05/05/17 22:16; Start 05/05/17 at 02:15 Buspirone HCl (Buspar) 20 mg HS PO Last administered on 05/05/17 20:50; Start 05/05/17 at 02:30 Cyclosporine (Restasis) 1 drop BID OU Last administered on 05/06/17 09:04; Start 05/05/17 at 02:30 Metoprolol Succinate (Toprol Xl) 100 mg DAILY PO Last administered on 09:03; Start 05/05/17 at 09:00 Pantoprazole Sodium (Protonix) 40 mg BIDBFRMEAL PO Last administered on 09:03; Start 05/05/17 at 02:30 Sucralfate (Carafate) 1 gm QID PO Last administered on 05/06/17 09:03; Start 05/05/17 at 02:30 Tramadol HCl (Ultram) 100 mg PRN Q6HRS PRN PO PAIN Last administered on 09:04; Start 05/05/17 at 02:15 Trazodone HCl (Desyrel) 50 mg PRN DAILY PRN PO ANXIETY; Start 05/05/17 at 02:15 Non-Formulary Medication 2 puff PRN Q12HRS PRN IH FOR ASTHMA; Start 05/05/17 at 02:15; Status UNV Non-Formulary Medication 30 mg DAILY PO ; Start 05/05/17 at 09:00; Stop at 10:24; Status DC Non-Formulary Medication 1 puff BID IH ; Start 05/05/17 at 02:30; Status UNV Atorvastatin Calcium (Lipitor) 10 mg HS PO Last administered on 05/05/17 20:50 ; Start 05/05/17 at 21:00 Trazodone HCl (Desyrel) 300 mg HS PO Last administered on 05/05/17 20:50; Start 05/05/17 at 03:00 Cetirizine HCl (ZyrTEC) 10 mg QHS PO Last administered on 05/05/17 20:50; Start 05/05/17 at 02:30 Fluticasone Propionate (Flonase) 2 spray DAILY NS Last administered on 09:08; Start 05/05/17 at 09:00 Albuterol Sulfate (Ventolin Neb Soln) 2.5 mg PRN Q12HRS PRN NEB SHORTNESS OF BREATH; Start 05/05/17 at 03:15 Budesonide (Pulmicort) 0.5 mg RTBID NEB Last administered on 05/06/17 11:01; Start 05/05/17 at 08:00 Albuterol Sulfate (Ventolin Neb Soln) 2.5 mg RTQID NEB Last administered on 11:01; Start 05/05/17 at 08:00 Potassium Chloride/Dextrose/ Sod Cl 1,000 ml @ 125 mls/hr Q8H IV Last administered on 05/06/17 09:04; Start 05/05/17 at 09:15 Nicotine (Nicoderm Cq 21mg) 1 patch PRN DAILY PRN TD SMOKING CESSATION Last administered on 05/05/17 12:24; Start 05/05/17 at 11:45 Nicotine Polacrilex (Nicorette Gum) 1 each PRN Q1HR PRN BC SMOKING CESSATION; Start 05/05/17 at 11:45 Fentanyl Citrate (Fentanyl 2ml Vial) 50 mcg PRN Q2HR PRN IV PAIN Last administered on 05/05/17 15:53; Start 05/05/17 at 12:00 Sodium Chloride 1,000 ml @ 0 mls/hr Q0M IV Last administered on 05/05/17 13: 51; Start 05/05/17 at 14:00 Propofol 20 ml @ As Directed STK-MED ONCE IV ; Start 05/05/17 at 14:39; Stop at 14:40; Status DC Lidocaine HCl (Lidocaine Pf 2% Vial) 5 ml STK-MED ONCE .ROUTE ; Start 05/05/17 at 14:39; Stop 05/05/17 at 14:40; Status DC Polyethylene Glycol (miraLAX Powder BULK BOTTLE) 238 gm 1X ONCE PO Last administered on 05/05/17 15:54; Start 05/05/17 at 15:00; Stop 05/05/17 at 15:01 ; Status DC Bisacodyl (Dulcolax Tab) 5 mg 1X ONCE PO Last administered on 05/05/17 15:54 ; Start 05/05/17 at 15:00; Stop 05/05/17 at 15:01; Status DC Ondansetron HCl (Zofran) 4 mg PRN Q6HRS PRN IV NAUSEA/VOMITING; Start 05/06/17 at 07:00; Stop 05/07/17 at 06:59 Fentanyl Citrate (Fentanyl 2ml Vial) 25 mcg PRN Q5MIN PRN IV MILD PAIN; Start 05/06/17 at 07:00; Stop 05/07/17 at 06:59 Fentanyl Citrate (Fentanyl 2ml Vial) 50 mcg PRN Q5MIN PRN IV MODERATE PAIN; Start 05/06/17 at 07:00; Stop 05/07/17 at 06:59 Ringer's Solution 1,000 ml @ 30 mls/hr Q24H IV Last administered on 05/06/17 06:52; Start 05/06/17 at 07:00; Stop 05/06/17 at 18:59 Lidocaine HCl 2 ml PRN 1X PRN ID PRIOR TO IV START; Start 05/06/17 at 07:00; Stop 05/07/17 at 06:59 Prochlorperazine Edisylate (Compazine) 5 mg PACU PRN PRN IV NAUSEA, MRX1; Start 05/06/17 at 07:00; Stop 05/07/17 at 06:59 Bisacodyl (Dulcolax Tab) 5 mg 1X ONCE PO Last administered on 05/05/17 15:54 ; Start 05/05/17 at 15:45; Stop 05/05/17 at 15:46; Status DC Bisacodyl (Dulcolax Tab) 10 mg 1X ONCE PO Last administered on 05/05/17 19:57 ; Start 05/05/17 at 17:00; Stop 05/05/17 at 17:01; Status DC Midazolam HCl (Versed) 2 mg PRN 1X PRN IV PRIOR TO PROCEDURE; Start 05/06/17 at 07:00; Stop 05/07/17 at 06:59 Fentanyl Citrate (Fentanyl 2ml Vial) 25 mcg PRN Q5MIN PRN IV X 2 DOSES FOR PAIN ; Start 05/06/17 at 07:00; Stop 05/07/17 at 06:59 Fentanyl Citrate (Fentanyl 2ml Vial) 50 mcg PRN Q5MIN PRN IV X 2 DOSES FOR PAIN ; Start 05/06/17 at 07:00; Stop 05/07/17 at 06:59 Ringer's Solution 1,000 ml @ 125 mls/hr Q8H IV Last administered on 05/06/17t 06:52; Start 05/06/17 at 06:51; Stop 05/06/17 at 18:50 Lidocaine HCl 2 ml 1X PRN PRN ID IV START; Start 05/06/17 at 07:00; Stop at 06:59 Propofol 40 ml @ As Directed STK-MED ONCE IV ; Start 05/06/17 at 07:30; Stop at 07:31; Status DC Lidocaine HCl (Lidocaine Pf 2% Vial) 5 ml STK-MED ONCE .ROUTE ; Start 05/06/17 at 07:30; Stop 05/06/17 at 07:31; Status DC Active Scripts Active Reported Restasis (Cyclosporine) 1 Each Droperette 1 Drop EACHEYE BID Proventil Hfa Inhaler (Albuterol Sulfate) 6.7 Gm Hfa.aer.ad 2 Puff IH PRN Q12HRS PRN Advair 500-50 Diskus (Fluticasone/Salmeterol) 1 Each Disk.w.dev 1 Puff IH BID Tramadol Hcl 50 Mg Tablet 100 Mg PO Q6H PRN Meloxicam 15 Mg Tablet 15 Mg PO DAILY Lovastatin 40 Mg Tablet 40 Mg PO HS Adderall Xr 30 Mg Capsule (Dextroamphetamine/Amphetamine) 30 Mg Cap.er.24h 30 Mg PO DAILY Xanax (Alprazolam) 0.5 Mg Tablet 0.5 Mg PO PRN DAILY PRN Trazodone Hcl 50 Mg Tablet 50 Mg PO PRN DAILY PRN Trazodone Hcl 300 Mg Tablet 300 Mg PO HS Protonix (Pantoprazole Sodium) 40 Mg Tablet.dr 40 Mg PO BID Carafate (Sucralfate) 1 Gm Tablet 1 Tab PO QID Xarelto (Rivaroxaban) 15 Mg Tablet 15 Mg PO DAILY Metoprolol Succinate ( Xl ) (Metoprolol Succinate) 100 Mg Tab.er.24h 100 Mg PO DAILY Buspirone Hcl 10 Mg Tablet 20 Mg PO HS Vitals/I & O Vital Sign - Last 24 Hours 05/05/17 05/05/17 05/05/17 05/05/17 11:18 12:25 13:42 14:50 Temp 98.0 97.7 98.0 97.7 Pulse 76 83 Resp 20 20 B/P (MAP) 119/76 Pulse Ox 93 99 99 O2 Delivery Room Air Room Air Room Air 05/05/17 05/05/17 05/05/17 05/05/17 15:05 15:17 15:30 15:37 Pulse 77 79 71 Resp 20 20 B/P (MAP) 110/63 107/61 139/76 (97) Pulse Ox 92 93 100 97 O2 Delivery Room Air 05/05/17 05/05/17 05/05/17 05/05/17 15:45 15:53 15:54 16:00 Pulse 78 89 B/P (MAP) 119/58 (78) 129/75 (93) Pulse Ox 98 98 O2 Delivery Room Air Room Air 05/05/17 05/05/17 05/05/17 05/05/17 16:15 16:30 17:07 19:00 Temp 98.5 98.5 Pulse 86 78 Resp 20 B/P (MAP) 135/90 (105) 113/73 (86) Pulse Ox 93 95 O2 Delivery Room Air Room Air Room Air 05/05/17 05/05/17 05/05/17 05/05/17 19:57 20:10 20:11 22:17 Resp 20 20 Pulse Ox 98 98 O2 Delivery Room Air Room Air Room Air Room Air 05/05/17 05/06/17 05/06/17 05/06/17 23:00 03:00 03:32 06:46 Temp 98.6 98.3 97.8 98.6 98.3 97.8 Pulse 88 84 70 Resp 20 20 20 20 B/P (MAP) 104/73 (83) 110/75 (87) Pulse Ox 94 95 98 O2 Delivery Room Air Room Air Room Air 05/06/17 05/06/17 05/06/17 05/06/17 06:49 08:00 08:01 08:15 Temp 96.9 96.9 Pulse 75 70 Resp 16 16 B/P (MAP) 99/54 100/69 Pulse Ox 93 97 O2 Delivery Room Air Room Air Nasal Cannula Room Air O2 Flow Rate 4 05/06/17 05/06/17 05/06/17 05/06/17 08:21 08:45 09:00 09:03 Temp 97.8 97.8 Pulse 60 91 96 74 Resp 18 20 18 B/P (MAP) 104/60 119/58 (78) 131/88 (102) 125/104 Pulse Ox 97 98 99 O2 Delivery Room Air Room Air Room Air 05/06/17 05/06/17 05/06/17 05/06/17 09:04 09:15 09:30 11:04 Temp 97.6 97.6 Pulse 82 78 Resp 20 22 B/P (MAP) 136/84 (101) 119/66 (83) Pulse Ox 98 98 95 O2 Delivery Room Air Room Air Intake and Output 05/05/17 05/05/17 05/06/17 15:00 23:00 07:00 Intake Total 500 ml 1000 ml 480 ml Output Total 1250 ml 700 ml Balance 500 ml -250 ml -220 ml KAYDEN MATHIS MD May 06, 2017 11:17
[2017-05-06] MEDS ORDERED: FOLIC/VIT B COMP W-C (RENAL) TABLET. PO SCH (11:45)
[2017-05-06] MEDS ORDERED: POTASSIUM CHLORIDE 20 MEQ TABLET.ER. PO ONE (11:45)
[2017-05-06] MEDS ORDERED: VITAMIN B12,B9,B6 COMPLEX 1 TABLET. PO SCH (11:45)
--- NOTE | 2017-05-06 11:50 | PDOC ---
PROGRESS NOTES Chief Complaint Chief Complaint BRBPR, Hematochezia, acute blood loss, internal hemorrhoid w. acute bleeding Prior PE, coagulopathy, may resume Xarelto obesity, BMI 39 anxity lipids asthma Vitals Vitals Vital Signs Date Time Temp Pulse Resp B/P (MAP) Pulse Ox O2 Delivery O2 Flow Rate FiO2 05/06/17 11:04 95 Room Air 05/06/17 10:00 82 16 117/78 (91) 05/06/17 09:15 97.6 97.6 05/06/17 08:01 4 Physical Exam General: Alert, Oriented X3 Heart: Normal S1, Normal S2 Abdomen: Normal bowel sounds, Soft Extremities: No cyanosis, No edema, Normal pulses Labs LABS Laboratory Tests Test 05/05/17 12:45 05/06/17 09:45 Hemoglobin 10.9 g/dL (12.0-15.5) 11.1 g/dL (12.0-15.5) Hematocrit 31.5 % (36.0-47.0) 33.8 % (36.0-47.0) Mean Corpuscular Hemoglobin Concent 35 g/dL (31-37) 33 g/dL (31-37) Iron Level 87 ug/dL (50-170) Total Iron Binding Capacity 259 ug/dL (250-450) Iron Saturation 34 % (15-34) Ferritin 49 ng/mL (8-252) Vitamin B12 Level 448 pg/mL (247-911) White Blood Count 6.1 x10^3/uL (4.0-11.0) Red Blood Count 3.60 x10^6/uL (3.50-5.40) Mean Corpuscular Volume 94 fL (79-100) Mean Corpuscular Hemoglobin 31 pg (25-35) Red Cell Distribution Width 13.5 % (11.5-14.5) Platelet Count 223 x10^3/uL (140-400) Neutrophils (%) (Auto) 54 % (31-73) Lymphocytes (%) (Auto) 34 % (24-48) Monocytes (%) (Auto) 7 % (0-9) Eosinophils (%) (Auto) 4 % (0-3) Basophils (%) (Auto) 1 % (0-3) Neutrophils # (Auto) 3.3 x10^3uL (1.8-7.7) Lymphocytes # (Auto) 2.1 x10^3/uL (1.0-4.8) Monocytes # (Auto) 0.4 x10^3/uL (0.0-1.1) Eosinophils # (Auto) 0.3 x10^3/uL (0.0-0.7) Basophils # (Auto) 0.0 x10^3/uL (0.0-0.2) Review of Systems Review of Systems no n.v.d Comment Review of Relevant I have reviewed the following items mustapha (where applicable) has been applied. Labs Laboratory Tests Test 05/05/17 05:30 05/05/17 12:45 05/06/17 09:45 White Blood Count 7.0 x10^3/uL (4.0-11.0) 6.1 x10^3/uL (4.0-11.0) Red Blood Count 3.52 x10^6/uL (3.50-5.40) 3.60 x10^6/uL (3.50-5.40) Hemoglobin 11.0 g/dL (12.0-15.5) 10.9 g/dL (12.0-15.5) 11.1 g/dL (12.0-15.5) Hematocrit 31.9 % (36.0-47.0) 31.5 % (36.0-47.0) 33.8 % (36.0-47.0) Mean Corpuscular Volume 91 fL (79-100) 94 fL (79-100) Mean Corpuscular Hemoglobin 31 pg (25-35) 31 pg (25-35) Mean Corpuscular Hemoglobin Concent 34 g/dL (31-37) 35 g/dL (31-37) 33 g/dL (31-37) Red Cell Distribution Width 13.4 % (11.5-14.5) 13.5 % (11.5-14.5) Platelet Count 228 x10^3/uL (140-400) 223 x10^3/uL (140-400) Neutrophils (%) (Auto) 47 % (31-73) 54 % (31-73) Lymphocytes (%) (Auto) 39 % (24-48) 34 % (24-48) Monocytes (%) (Auto) 9 % (0-9) 7 % (0-9) Eosinophils (%) (Auto) 4 % (0-3) 4 % (0-3) Basophils (%) (Auto) 1 % (0-3) 1 % (0-3) Neutrophils # (Auto) 3.3 x10^3uL (1.8-7.7) 3.3 x10^3uL (1.8-7.7) Lymphocytes # (Auto) 2.7 x10^3/uL (1.0-4.8) 2.1 x10^3/uL (1.0-4.8) Monocytes # (Auto) 0.6 x10^3/uL (0.0-1.1) 0.4 x10^3/uL (0.0-1.1) Eosinophils # (Auto) 0.3 x10^3/uL (0.0-0.7) 0.3 x10^3/uL (0.0-0.7) Basophils # (Auto) 0.0 x10^3/uL (0.0-0.2) 0.0 x10^3/uL (0.0-0.2) Prothrombin Time 13.5 SEC (11.7-14.0) Prothromb Time International Ratio 1.1 (0.8-1.1) Sodium Level 142 mmol/L (136-145) Potassium Level 3.5 mmol/L (3.5-5.1) Chloride Level 106 mmol/L (98-107) Carbon Dioxide Level 29 mmol/L (21-32) Anion Gap 7 (6-14) Blood Urea Nitrogen 11 mg/dL (7-20) Creatinine 0.9 mg/dL (0.6-1.0) Estimated GFR (Cockcroft-Gault) 67.7 BUN/Creatinine Ratio 12 (6-20) Glucose Level 98 mg/dL (70-99) Calcium Level 7.6 mg/dL (8.5-10.1) Total Bilirubin 0.3 mg/dL (0.2-1.0) Aspartate Amino Transf (AST/SGOT) 27 U/L (15-37) Alanine Aminotransferase (ALT/SGPT) 44 U/L (14-59) Alkaline Phosphatase 83 U/L (46-116) Total Protein 6.5 g/dL (6.4-8.2) Albumin 3.0 g/dL (3.4-5.0) Albumin/Globulin Ratio 0.9 (1.0-1.7) Iron Level 87 ug/dL (50-170) Total Iron Binding Capacity 259 ug/dL (250-450) Iron Saturation 34 % (15-34) Ferritin 49 ng/mL (8-252) Vitamin B12 Level 448 pg/mL (247-911) Laboratory Tests Test 05/05/17 12:45 05/06/17 09:45 Hemoglobin 10.9 g/dL (12.0-15.5) 11.1 g/dL (12.0-15.5) Hematocrit 31.5 % (36.0-47.0) 33.8 % (36.0-47.0) Mean Corpuscular Hemoglobin Concent 35 g/dL (31-37) 33 g/dL (31-37) Iron Level 87 ug/dL (50-170) Total Iron Binding Capacity 259 ug/dL (250-450) Iron Saturation 34 % (15-34) Ferritin 49 ng/mL (8-252) Vitamin B12 Level 448 pg/mL (247-911) White Blood Count 6.1 x10^3/uL (4.0-11.0) Red Blood Count 3.60 x10^6/uL (3.50-5.40) Mean Corpuscular Volume 94 fL (79-100) Mean Corpuscular Hemoglobin 31 pg (25-35) Red Cell Distribution Width 13.5 % (11.5-14.5) Platelet Count 223 x10^3/uL (140-400) Neutrophils (%) (Auto) 54 % (31-73) Lymphocytes (%) (Auto) 34 % (24-48) Monocytes (%) (Auto) 7 % (0-9) Eosinophils (%) (Auto) 4 % (0-3) Basophils (%) (Auto) 1 % (0-3) Neutrophils # (Auto) 3.3 x10^3uL (1.8-7.7) Lymphocytes # (Auto) 2.1 x10^3/uL (1.0-4.8) Monocytes # (Auto) 0.4 x10^3/uL (0.0-1.1) Eosinophils # (Auto) 0.3 x10^3/uL (0.0-0.7) Basophils # (Auto) 0.0 x10^3/uL (0.0-0.2) Medications Current Medications Ondansetron HCl (Zofran) 4 mg PRN Q6HRS PRN IV NAUSEA/VOMITING Last administered on 05/05/17 19:57; Start 05/05/17 at 02:15 Acetaminophen (Tylenol) 650 mg PRN Q6HRS PRN PO PAIN Last administered on 02:44; Start 05/05/17 at 02:15 Acetaminophen/ Hydrocodone Bitart (Lortab 5/325) 1 tab PRN Q6HRS PRN PO PAIN Last administered on 05/06/17 03:32; Start 05/05/17 at 02:15 Alprazolam (Xanax) 0.5 mg PRN DAILY PRN PO ANXIETY / AGITATION Last administered on 05/05/17 22:16; Start 05/05/17 at 02:15 Buspirone HCl (Buspar) 20 mg HS PO Last administered on 05/05/17 20:50; Start 05/05/17 at 02:30 Cyclosporine (Restasis) 1 drop BID OU Last administered on 05/06/17 09:04; Start 05/05/17 at 02:30 Metoprolol Succinate (Toprol Xl) 100 mg DAILY PO Last administered on 09:03; Start 05/05/17 at 09:00 Pantoprazole Sodium (Protonix) 40 mg BIDBFRMEAL PO Last administered on 09:03; Start 05/05/17 at 02:30 Sucralfate (Carafate) 1 gm QID PO Last administered on 05/06/17 09:03; Start 05/05/17 at 02:30 Tramadol HCl (Ultram) 100 mg PRN Q6HRS PRN PO PAIN Last administered on 09:04; Start 05/05/17 at 02:15 Trazodone HCl (Desyrel) 50 mg PRN DAILY PRN PO ANXIETY; Start 05/05/17 at 02:15 Non-Formulary Medication 2 puff PRN Q12HRS PRN IH FOR ASTHMA; Start 05/05/17 at 02:15; Status UNV Non-Formulary Medication 30 mg DAILY PO ; Start 05/05/17 at 09:00; Stop at 10:24; Status DC Non-Formulary Medication 1 puff BID IH ; Start 05/05/17 at 02:30; Status UNV Atorvastatin Calcium (Lipitor) 10 mg HS PO Last administered on 05/05/17 20:50 ; Start 05/05/17 at 21:00 Trazodone HCl (Desyrel) 300 mg HS PO Last administered on 05/05/17 20:50; Start 05/05/17 at 03:00 Cetirizine HCl (ZyrTEC) 10 mg QHS PO Last administered on 05/05/17 20:50; Start 05/05/17 at 02:30 Fluticasone Propionate (Flonase) 2 spray DAILY NS Last administered on 09:08; Start 05/05/17 at 09:00 Albuterol Sulfate (Ventolin Neb Soln) 2.5 mg PRN Q12HRS PRN NEB SHORTNESS OF BREATH; Start 05/05/17 at 03:15 Budesonide (Pulmicort) 0.5 mg RTBID NEB Last administered on 05/06/17 11:01; Start 05/05/17 at 08:00 Albuterol Sulfate (Ventolin Neb Soln) 2.5 mg RTQID NEB Last administered on 11:01; Start 05/05/17 at 08:00 Potassium Chloride/Dextrose/ Sod Cl 1,000 ml @ 125 mls/hr Q8H IV Last administered on 05/06/17 09:04; Start 05/05/17 at 09:15 Nicotine (Nicoderm Cq 21mg) 1 patch PRN DAILY PRN TD SMOKING CESSATION Last administered on 05/05/17 12:24; Start 05/05/17 at 11:45 Nicotine Polacrilex (Nicorette Gum) 1 each PRN Q1HR PRN BC SMOKING CESSATION; Start 05/05/17 at 11:45 Fentanyl Citrate (Fentanyl 2ml Vial) 50 mcg PRN Q2HR PRN IV PAIN Last administered on 05/05/17 15:53; Start 05/05/17 at 12:00 Sodium Chloride 1,000 ml @ 0 mls/hr Q0M IV Last administered on 05/05/17 13: 51; Start 05/05/17 at 14:00 Propofol 20 ml @ As Directed STK-MED ONCE IV ; Start 05/05/17 at 14:39; Stop at 14:40; Status DC Lidocaine HCl (Lidocaine Pf 2% Vial) 5 ml STK-MED ONCE .ROUTE ; Start 05/05/17 at 14:39; Stop 05/05/17 at 14:40; Status DC Polyethylene Glycol (miraLAX Powder BULK BOTTLE) 238 gm 1X ONCE PO Last administered on 05/05/17 15:54; Start 05/05/17 at 15:00; Stop 05/05/17 at 15:01 ; Status DC Bisacodyl (Dulcolax Tab) 5 mg 1X ONCE PO Last administered on 05/05/17 15:54 ; Start 05/05/17 at 15:00; Stop 05/05/17 at 15:01; Status DC Ondansetron HCl (Zofran) 4 mg PRN Q6HRS PRN IV NAUSEA/VOMITING; Start 05/06/17 at 07:00; Stop 05/07/17 at 06:59 Fentanyl Citrate (Fentanyl 2ml Vial) 25 mcg PRN Q5MIN PRN IV MILD PAIN; Start 05/06/17 at 07:00; Stop 05/07/17 at 06:59 Fentanyl Citrate (Fentanyl 2ml Vial) 50 mcg PRN Q5MIN PRN IV MODERATE PAIN; Start 05/06/17 at 07:00; Stop 05/07/17 at 06:59 Ringer's Solution 1,000 ml @ 30 mls/hr Q24H IV Last administered on 05/06/17 06:52; Start 05/06/17 at 07:00; Stop 05/06/17 at 18:59 Lidocaine HCl 2 ml PRN 1X PRN ID PRIOR TO IV START; Start 05/06/17 at 07:00; Stop 05/07/17 at 06:59 Prochlorperazine Edisylate (Compazine) 5 mg PACU PRN PRN IV NAUSEA, MRX1; Start 05/06/17 at 07:00; Stop 05/07/17 at 06:59 Bisacodyl (Dulcolax Tab) 5 mg 1X ONCE PO Last administered on 05/05/17 15:54 ; Start 05/05/17 at 15:45; Stop 05/05/17 at 15:46; Status DC Bisacodyl (Dulcolax Tab) 10 mg 1X ONCE PO Last administered on 05/05/17 19:57 ; Start 05/05/17 at 17:00; Stop 05/05/17 at 17:01; Status DC Midazolam HCl (Versed) 2 mg PRN 1X PRN IV PRIOR TO PROCEDURE; Start 05/06/17 at 07:00; Stop 05/07/17 at 06:59 Fentanyl Citrate (Fentanyl 2ml Vial) 25 mcg PRN Q5MIN PRN IV X 2 DOSES FOR PAIN ; Start 05/06/17 at 07:00; Stop 05/07/17 at 06:59 Fentanyl Citrate (Fentanyl 2ml Vial) 50 mcg PRN Q5MIN PRN IV X 2 DOSES FOR PAIN ; Start 05/06/17 at 07:00; Stop 05/07/17 at 06:59 Ringer's Solution 1,000 ml @ 125 mls/hr Q8H IV Last administered on 05/06/17 06:52; Start 05/06/17 at 06:51; Stop 05/06/17 at 18:50 Lidocaine HCl 2 ml 1X PRN PRN ID IV START; Start 05/06/17 at 07:00; Stop at 06:59 Propofol 40 ml @ As Directed STK-MED ONCE IV ; Start 05/06/17 at 07:30; Stop at 07:31; Status DC Lidocaine HCl (Lidocaine Pf 2% Vial) 5 ml STK-MED ONCE .ROUTE ; Start 05/06/17 at 07:30; Stop 05/06/17 at 07:31; Status DC Vitamin B Complex (Folbic Tablet) 1 tab DAILY PO ; Start 05/06/17 at 11:45 Vitamin B Complex/ Vitamin C (Deisy-Juan) 1 tab DAILY PO ; Start 05/06/17 at 11: 45 Potassium Chloride (Klor-Con) 20 meq 1X ONCE PO ; Start 05/06/17 at 11:45; Stop 05/06/17 at 11:46; Status DC Potassium Chloride (Klor-Con) 20 meq DAILYWBKFT PO ; Start 05/07/17 at 08:00 Active Scripts Active Reported Restasis (Cyclosporine) 1 Each Droperette 1 Drop EACHEYE BID Proventil Hfa Inhaler (Albuterol Sulfate) 6.7 Gm Hfa.aer.ad 2 Puff IH PRN Q12HRS PRN Advair 500-50 Diskus (Fluticasone/Salmeterol) 1 Each Disk.w.dev 1 Puff IH BID Tramadol Hcl 50 Mg Tablet 100 Mg PO Q6H PRN Meloxicam 15 Mg Tablet 15 Mg PO DAILY Lovastatin 40 Mg Tablet 40 Mg PO HS Adderall Xr 30 Mg Capsule (Dextroamphetamine/Amphetamine) 30 Mg Cap.er.24h 30 Mg PO DAILY Xanax (Alprazolam) 0.5 Mg Tablet 0.5 Mg PO PRN DAILY PRN Trazodone Hcl 50 Mg Tablet 50 Mg PO PRN DAILY PRN Trazodone Hcl 300 Mg Tablet 300 Mg PO HS Protonix (Pantoprazole Sodium) 40 Mg Tablet.dr 40 Mg PO BID Carafate (Sucralfate) 1 Gm Tablet 1 Tab PO QID Xarelto (Rivaroxaban) 15 Mg Tablet 15 Mg PO DAILY Metoprolol Succinate ( Xl ) (Metoprolol Succinate) 100 Mg Tab.er.24h 100 Mg PO DAILY Buspirone Hcl 10 Mg Tablet 20 Mg PO HS Vitals/I & O Vital Sign - Last 24 Hours 05/05/17 05/05/17 05/05/17 05/05/17 12:25 13:42 14:50 15:05 Temp 98.0 97.7 98.0 97.7 Pulse 76 83 77 Resp 20 20 20 B/P (MAP) 119/76 110/63 Pulse Ox 99 99 92 O2 Delivery Room Air Room Air 05/05/17 05/05/17 05/05/17 05/05/17 15:17 15:30 15:37 15:45 Pulse 79 71 78 Resp 20 B/P (MAP) 107/61 139/76 (97) 119/58 (78) Pulse Ox 93 100 97 98 O2 Delivery Room Air 05/05/17 05/05/17 05/05/17 05/05/17 15:53 15:54 16:00 16:15 Pulse 89 86 B/P (MAP) 129/75 (93) 135/90 (105) Pulse Ox 98 93 O2 Delivery Room Air Room Air 05/05/17 05/05/17 05/05/17 05/05/17 16:30 19:00 19:57 20:10 Temp 98.5 98.5 Pulse 78 Resp 20 20 B/P (MAP) 113/73 (86) Pulse Ox 95 98 O2 Delivery Room Air Room Air Room Air Room Air 05/05/17 05/05/17 05/05/17 05/06/17 20:11 22:17 23:00 03:00 Temp 98.6 98.3 98.6 98.3 Pulse 88 84 Resp 20 20 20 B/P (MAP) 104/73 (83) 110/75 (87) Pulse Ox 98 94 95 O2 Delivery Room Air Room Air Room Air Room Air 05/06/17 05/06/17 05/06/17 05/06/17 03:32 06:46 06:49 08:00 Temp 97.8 97.8 Pulse 70 Resp 20 20 Pulse Ox 98 O2 Delivery Room Air Room Air Room Air 05/06/17 05/06/17 05/06/17 05/06/17 08:01 08:15 08:21 08:45 Temp 96.9 97.8 96.9 97.8 Pulse 75 70 60 91 Resp 16 16 18 20 B/P (MAP) 99/54 100/69 104/60 119/58 (78) Pulse Ox 93 97 97 98 O2 Delivery Nasal Cannula Room Air Room Air Room Air O2 Flow Rate 4 05/06/17 05/06/17 05/06/17 05/06/17 08:45 09:00 09:00 09:03 Temp 97.5 97.5 Pulse 71 96 74 74 Resp 16 18 16 B/P (MAP) 139/85 (103) 131/88 (102) 125/104 (111) 125/104 Pulse Ox 96 99 96 O2 Delivery Room Air Room Air Room Air 05/06/17 05/06/17 05/06/17 05/06/17 09:04 09:15 09:15 09:30 Temp 97.6 97.6 Pulse 81 82 77 Resp 18 20 18 B/P (MAP) 131/89 (103) 136/84 (101) 139/91 (107) Pulse Ox 97 98 94 O2 Delivery Room Air Room Air Room Air 05/06/17 05/06/17 05/06/1705/06/17 09:30 10:00 10:10 11:04 Pulse 78 82 Resp 22 16 B/P (MAP) 119/66 (83) 117/78 (91) Pulse Ox 98 97 95 O2 Delivery Room Air Room Air Room Air Intake and Output 05/05/17 05/05/17 05/06/17 15:00 23:00 07:00 Intake Total 500 ml 1000 ml 480 ml Output Total 1250 ml 700 ml Balance 500 ml -250 ml -220 ml ANNELIESE CHAVES MD May 06, 2017 11:49
[2017-05-06] MEDS ORDERED: TRAM50TA PO (11:51)
--- NOTE | 2017-05-06 11:59 | PDOC3 ---
Discharge Summary Visit Information Date of Admission: May 05, 2017 Date of Discharge: May 06, 2017 Admitting Diagnosis: GI bleed Final Diagnosis BRBPR, Hematochezia, acute blood loss, internal hemorrhoid w. acute bleeding Prior PE, obesity, BMI 39 anxity lipids asthma Brief Hospital Course Allergies Allergies Coded Allergies Type Severity Reaction Last Updated Verified codeine Allergy Intermediate 05/06/17 Yes morphine Allergy Intermediate 05/06/17 Yes Vital Signs Vital Signs Date Time Temp Pulse Resp B/P (MAP) Pulse Ox O2 Delivery O2 Flow Rate FiO2 05/06/17 11:04 95 Room Air 05/06/17 10:00 82 16 117/78 (91) 05/06/17 09:15 97.6 97.6 05/06/17 08:01 4 Lab Results Laboratory Tests Test 05/05/17 05:30 05/05/17 12:45 05/06/17 09:45 White Blood Count 7.0 x10^3/uL (4.0-11.0) 6.1 x10^3/uL (4.0-11.0) Red Blood Count 3.52 x10^6/uL (3.50-5.40) 3.60 x10^6/uL (3.50-5.40) Hemoglobin 11.0 g/dL (12.0-15.5) 10.9 g/dL (12.0-15.5) 11.1 g/dL (12.0-15.5) Hematocrit 31.9 % (36.0-47.0) 31.5 % (36.0-47.0) 33.8 % (36.0-47.0) Mean Corpuscular Volume 91 fL (79-100) 94 fL (79-100) Mean Corpuscular Hemoglobin 31 pg (25-35) 31 pg (25-35) Mean Corpuscular Hemoglobin Concent 34 g/dL (31-37) 35 g/dL (31-37) 33 g/dL (31-37) Red Cell Distribution Width 13.4 % (11.5-14.5) 13.5 % (11.5-14.5) Platelet Count 228 x10^3/uL (140-400) 223 x10^3/uL (140-400) Neutrophils (%) (Auto) 47 % (31-73) 54 % (31-73) Lymphocytes (%) (Auto) 39 % (24-48) 34 % (24-48) Monocytes (%) (Auto) 9 % (0-9) 7 % (0-9) Eosinophils (%) (Auto) 4 % (0-3) 4 % (0-3) Basophils (%) (Auto) 1 % (0-3) 1 % (0-3) Neutrophils # (Auto) 3.3 x10^3uL (1.8-7.7) 3.3 x10^3uL (1.8-7.7) Lymphocytes # (Auto) 2.7 x10^3/uL (1.0-4.8) 2.1 x10^3/uL (1.0-4.8) Monocytes # (Auto) 0.6 x10^3/uL (0.0-1.1) 0.4 x10^3/uL (0.0-1.1) Eosinophils # (Auto) 0.3 x10^3/uL (0.0-0.7) 0.3 x10^3/uL (0.0-0.7) Basophils # (Auto) 0.0 x10^3/uL (0.0-0.2) 0.0 x10^3/uL (0.0-0.2) Prothrombin Time 13.5 SEC (11.7-14.0) Prothromb Time International Ratio 1.1 (0.8-1.1) Sodium Level 142 mmol/L (136-145) Potassium Level 3.5 mmol/L (3.5-5.1) Chloride Level 106 mmol/L (98-107) Carbon Dioxide Level 29 mmol/L (21-32) Anion Gap 7 (6-14) Blood Urea Nitrogen 11 mg/dL (7-20) Creatinine 0.9 mg/dL (0.6-1.0) Estimated GFR (Cockcroft-Gault) 67.7 BUN/Creatinine Ratio 12 (6-20) Glucose Level 98 mg/dL (70-99) Calcium Level 7.6 mg/dL (8.5-10.1) Total Bilirubin 0.3 mg/dL (0.2-1.0) Aspartate Amino Transf (AST/SGOT) 27 U/L (15-37) Alanine Aminotransferase (ALT/SGPT) 44 U/L (14-59) Alkaline Phosphatase 83 U/L (46-116) Total Protein 6.5 g/dL (6.4-8.2) Albumin 3.0 g/dL (3.4-5.0) Albumin/Globulin Ratio 0.9 (1.0-1.7) Iron Level 87 ug/dL (50-170) Total Iron Binding Capacity 259 ug/dL (250-450) Iron Saturation 34 % (15-34) Ferritin 49 ng/mL (8-252) Vitamin B12 Level 448 pg/mL (247-911) Serum Folate > 24.00 ng/ml (3.2-20.0) Laboratory Tests Test 05/05/17 12:45 05/06/17 09:45 Hemoglobin 10.9 g/dL (12.0-15.5) 11.1 g/dL (12.0-15.5) Hematocrit 31.5 % (36.0-47.0) 33.8 % (36.0-47.0) Mean Corpuscular Hemoglobin Concent 35 g/dL (31-37) 33 g/dL (31-37) Iron Level 87 ug/dL (50-170) Total Iron Binding Capacity 259 ug/dL (250-450) Iron Saturation 34 % (15-34) Ferritin 49 ng/mL (8-252) Vitamin B12 Level 448 pg/mL (247-911) Serum Folate > 24.00 ng/ml (3.2-20.0) White Blood Count 6.1 x10^3/uL (4.0-11.0) Red Blood Count 3.60 x10^6/uL (3.50-5.40) Mean Corpuscular Volume 94 fL (79-100) Mean Corpuscular Hemoglobin 31 pg (25-35) Red Cell Distribution Width 13.5 % (11.5-14.5) Platelet Count 223 x10^3/uL (140-400) Neutrophils (%) (Auto) 54 % (31-73) Lymphocytes (%) (Auto) 34 % (24-48) Monocytes (%) (Auto) 7 % (0-9) Eosinophils (%) (Auto) 4 % (0-3) Basophils (%) (Auto) 1 % (0-3) Neutrophils # (Auto) 3.3 x10^3uL (1.8-7.7) Lymphocytes # (Auto) 2.1 x10^3/uL (1.0-4.8) Monocytes # (Auto) 0.4 x10^3/uL (0.0-1.1) Eosinophils # (Auto) 0.3 x10^3/uL (0.0-0.7) Basophils # (Auto) 0.0 x10^3/uL (0.0-0.2) Brief Hospital Course Ms. Alejo is a 47 old female, admit with maroon and blood clots per rectum, acute onset, and resolved over 24 + hours EGD clear, prepped then colon, Scope showed internal roids, coagulopathy, may resume Xarelto f/u primary care Discharge Information Condition at Discharge: Improved Follow Up: Weeks Disposition/Orders: D/C to Home Scheduled Buspirone Hcl (Buspirone Hcl), 20 MG PO HS, (Reported) Cyclosporine (Restasis), 1 DROP EACHEYE BID, (Reported) Dextroamphetamine/Amphetamine (Adderall Xr 30 Mg Capsule), 30 MG PO DAILY, ( Reported) Fluticasone/Salmeterol (Advair 500-50 Diskus), 1 PUFF IH BID, (Reported) Lovastatin (Lovastatin), 40 MG PO HS, (Reported) Meloxicam (Meloxicam), 15 MG PO DAILY, (Reported) Metoprolol Succinate (Metoprolol Succinate ( Xl )), 100 MG PO DAILY, (Reported) Pantoprazole Sodium (Protonix), 40 MG PO BID, (Reported) Rivaroxaban (Xarelto), 15 MG PO DAILY, (Reported) Sucralfate (Carafate), 1 TAB PO QID, (Reported) Trazodone Hcl (Trazodone Hcl), 300 MG PO HS, (Reported) Scheduled PRN Albuterol Sulfate (Proventil Hfa Inhaler), 2 PUFF IH PRN Q12HRS PRN for FOR ASTHMA, (Reported) Alprazolam (Xanax), 0.5 MG PO PRN DAILY PRN for ANXIETY / AGITATION, (Reported) Tramadol Hcl (Tramadol Hcl), 50 MG PO Q6H PRN for PAIN Trazodone Hcl (Trazodone Hcl), 50 MG PO PRN DAILY PRN for ANXIETY, (Reported) Patient Instructions Patient Instructions time > 30min ANNELIESE CHAVES MD May 06, 2017 11:59
[2017-05-06 13:21] LABS: FOLATE > 20.00 ng/ml (3.2-20.0)
[2017-05-07] MEDS ORDERED: POTASSIUM CHLORIDE 20 MEQ TABLET.ER. PO SCH (08:00)
== END 2017-05-06 17:30 | disposition home or self-care (01) | DRG 394 ==
LOC: 5 SOUTH 05-05 00:11
PROVIDERS: ADMIT Internal Medicine; ATTEND Internal Medicine
PROC: 0DJ08ZZ Inspection of Upper Intestinal Tract, Via Natural or Artificial Opening Endoscopic (ICD-10-PCS; 2017-05-05)
PROC: 0DJD8ZZ Inspection of Lower Intestinal Tract, Via Natural or Artificial Opening Endoscopic (ICD-10-PCS; principal; 2017-05-06 07:30)
DX: K64.8 Other hemorrhoids (principal); D68.9 Coagulation defect, unspecified; D62 Acute posthemorrhagic anemia; K29.70 Gastritis, unspecified, without bleeding; E11.9 Type 2 diabetes mellitus without complications; E78.5 Hyperlipidemia, unspecified; F17.210 Nicotine dependence, cigarettes, uncomplicated; F41.9 Anxiety disorder, unspecified; F90.9 Attention-deficit hyperactivity disorder, unspecified type; G47.33 Obstructive sleep apnea (adult) (pediatric); E66.9 Obesity, unspecified; I10 Essential (primary) hypertension; K44.9 Diaphragmatic hernia without obstruction or gangrene; M19.90 Unspecified osteoarthritis, unspecified site; T39.395A Adverse effect of other nonsteroidal anti-inflammatory drugs [NSAID], initial encounter; K21.9 Gastro-esophageal reflux disease without esophagitis; J45.909 Unspecified asthma, uncomplicated; Z90.710 Acquired absence of both cervix and uterus; Z90.49 Acquired absence of other specified parts of digestive tract; Z79.01 Long term (current) use of anticoagulants; Z79.82 Long term (current) use of aspirin; Z86.711 Personal history of pulmonary embolism; Z87.442 Personal history of urinary calculi; Z68.38 Body mass index [BMI] 38.0-38.9, adult; Z88.5 Allergy status to narcotic agent; Z88.8 Allergy status to other drugs, medicaments and biological substances; Y92.89 Other specified places as the place of occurrence of the external cause; Z83.79 Family history of other diseases of the digestive system; Z79.899 Other long term (current) drug therapy
CPT/HCPCS: 36415; 80053; 82607; 82728; 82746; 83540; 83550; 85014; 85018; 85027; 85610; 94250; 94640; 94760; 99406; J2405; J2704; J3010; J7030; J7120

== ENCOUNTER → 2017-06-13 | Outpatient (CLI) | payer OTHER ==
[2017-05-06 15:00] VITALS: BP 145/98
[~2017-06-13] MED LIST: ALPR0.5T PO; BUSP10TA PO; CYCL1DRO EACHEYE; DEXT30CA6 PO; FLUT1DIS5 IH; GADOBUTROL 10 MMOL/10 ML VIAL IV ONE; LOVA40TA2 PO; MELO15TA23 PO; METO100T11 PO; PANT40TA3 PO; PROVENTIL HFA6.7 GM IH; RIVA15TA PO; SUCR1TAB35 PO; TRAM50TA PO; TRAZ300T2 PO; TRAZ50TA15 PO
--- NOTE | 2017-06-13 14:44 | KCIC ---
EXAM: Lumbar spine MRI without and with contrast. HISTORY: Pain. TECHNIQUE: Multiplanar, multisequence magnetic resonance imaging of the lumbar spine was performed prior to and following the administration of 10 cc Gadavist intravenous contrast. COMPARISON: None. FINDINGS: There is minimal retrolisthesis of L5 on S1. There is disc desiccation and endplate remodeling at this level. There is also degenerative endplate remodeling and Schmorl's node formation at T11-T12 and T12-L1. There are a few small hemangiomas. No suspicious osseous lesion is seen. There is no suspicious marrow or soft tissue edema. No suspicious enhancing lesion is seen. There is a 3.0 cm left renal cyst. At L1-L2, there is no stenosis. At L2-L3, there is minimal facet arthropathy. There is no stenosis. As L3-L4, there is minimal facet arthropathy. There is no stenosis At L4-L5, there is a minimal disc bulge. There is minimal facet arthropathy. There is no stenosis. At L5-S1, there is a shallow posterior central disc protrusion superimposed on a disc bulge and endplate remodeling. There are right hemilaminectomy changes. There is slight enhancement along the left paracentral to lateral recess disc margin possibly due to scar/granulation tissue status post microdiscectomy surgery. This slightly effaces the left lateral recess and abuts the traversing left S1 nerve root. There is minimal bilateral superior foraminal stenosis. IMPRESSION: 1. Findings consistent with right hemilaminectomy and possible microdiscectomy surgery at L5-S1. There is a shallow posterior central disc protrusion and slight effacement of the left lateral recess at this level resulting in abutment of the traversing left S1 nerve root. There is also minimal bilateral superior foraminal stenosis at this level. 2. Minimal degenerative change at the remainder of the lumbar levels. Electronically signed by: Mone Pandey MD (06/13/2017 2:41 PM) [place] [id number]
== END | disposition home or self-care (01) ==
LOC: KCIC MRI 13:35
PROVIDERS: ATTEND Family Medicine
DX: M51.36 Other intervertebral disc degeneration, lumbar region (principal); M54.42 Lumbago with sciatica, left side; G89.29 Other chronic pain
CPT/HCPCS: 72158; A9585

== ENCOUNTER → 2017-07-15 | Outpatient (CLI) | payer MEDICAID, OTHER ==
[~2017-07-15] VITALS: Ht 165.1 cm; Wt 104.3 kg
[~2017-07-15] MED LIST changes: -GADOBUTROL 10 MMOL/10 ML VIAL IV ONE
[2017-07-15 12:29] VITALS: BP 105/69
--- NOTE | 2017-07-15 16:11 | RAD ---
Ultrasound of the right breast Indication: Abnormality seen on prior ultrasound. Patient presents for biopsy. Technique: Grayscale and color Doppler ultrasound of the right breast at 12:00 performed. Comparison: Previous ultrasound from 07/04/2017 Findings: Patient was consented for biopsy. Risks and benefits of the procedures were explained. Real-time scanning in multiple planes in the region of previously seen abnormality demonstrated no convincing evidence of soft tissue lesion. Minimally prominent ducts were seen in this region. No abnormal blood flow seen in this region. Impression: No convincing evidence of soft tissue lesion in the region of previously seen abnormality. Follow-up ultrasound in 6 months recommended. BI-RADS 3: Probably benign. Follow-up targeted right breast ultrasound in 6 months.
== END | disposition home or self-care (01) ==
LOC: US 12:03
PROVIDERS: ATTEND Family Medicine
DX: N63 Unspecified lump in breast (principal); R92.1 Mammographic calcification found on diagnostic imaging of breast; N64.89 Other specified disorders of breast; I10 Essential (primary) hypertension; F17.200 Nicotine dependence, unspecified, uncomplicated; Z79.01 Long term (current) use of anticoagulants
CPT/HCPCS: 76641

== ENCOUNTER 2019-11-01 12:23 | Inpatient (IN) | payer OTHER ==
[~2019-11-01] VITALS: Ht 165.1 cm; Wt 123.6 kg
[2019-11-01] VITALS (8 sets, daily range): BP systolic 88–111; BP diastolic 40–78
[~2019-11-01 12:23] MED LIST changes: +ALBU2.5V8 INH; +ALPR0.5T6 PO; +ALPR1TAB2 PO; +AMLO5TAB10 PO; +BYSTOLIC20 MG PO; +CEFD300C PO; +CETI10TA24 PO; +CRESTOR40 MG PO; +CYCL10TA2 PO; +DEXA4TAB PO; +DULO60CA6 PO; +Doxycycline Hyclate PO; +ENOX120D3 SQ; +FLUT16SP NS; +FLUT1DIS3 IH; +Fentanyl TD; +GABA600T7 PO; +INSU100C4 SQ; +INSU100V13 SQ; +LACT1CAP19 PO; +LEVO500T59 PO; +LIDO700A21 TP; +LINZESS145 MCG PO; +LOVA20TA2 PO; +METH-38 PO; +METH4TAB2 PO; +METO-247 PO; -METO100T11 PO; +NITR0.4T22 SL; +NYST15PO9 TP; +ONDA-84 PO; +OXYC1TAB15 PO; -PANT40TA3 PO; +PANT40TA77 PO; +POLY17PO29 PO; +POLY2500 PO; +PRED20TA PO; +PREG150C PO; +SENN-161 PO; +TRAM-48 PO; +TRAZ-118 PO; -TRAZ50TA15 PO; +ZOLP10TA PO
[2019-11-01] MEDS ORDERED: HYDROmorphone 2 MG/ML VIAL IVP STA ×2 (12:59→16:21)
[2019-11-01] MEDS ORDERED: ONDANSETRON PF 4 MG/2 ML VIAL. IV ONE (13:00)
[2019-11-01] MEDS ORDERED: IV NORMAL SALINE 500ML BAG 500 ML IV ONE ×2 (13:00→16:30)
--- NOTE | 2019-11-01 13:12 | EKG ---
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
[2019-11-01 13:13] LABS: BASO # 0.4 x10^3/uL (0.0-0.2); BASO % 1 % (0-3); EOS # 0.4 x10^3/uL (0.0-0.7); EOS % 0 % (0-3); HEMATOCRIT 28.3 % (36.0-47.0); HEMOGLOBIN 9.1 g/dL (12.0-15.5); LYMPH # 5.5 x10^3/uL (1.0-4.8); LYMPH % 7 % (24-48); MEAN CORPUSCULAR HEMOGLOBIN 29 pg (25-35); MEAN CORPUSCULAR HGB CONC 32 g/dL (31-37); MEAN CORPUSCULAR VOLUME 90 fL (79-100); MONO % 3 % (0-9); NEUT # 72.9 x10^3/uL (1.8-7.7); NEUT % 90 % (31-73); PLATELET COUNT 527 x10^3/uL (140-400); RED BLOOD COUNT 3.14 x10^6/uL (3.50-5.40); RED CELL DISTRIBUTION WIDTH 15.3 % (11.5-14.5)
[2019-11-01 13:18] LABS: PROTHROMBIN TIME PATIENT 14.8 SEC (11.7-14.0)
[2019-11-01 13:21] LABS: WHITE BLOOD COUNT 81.2 x10^3/uL (4.0-11.0)
[2019-11-01 13:30] LABS: CALCIUM 8.3 mg/dL (8.5-10.1); GFR 59.4; POTASSIUM 4.2 mmol/L (3.5-5.1)
--- NOTE | 2019-11-01 13:34 | PHYS DOC ---
Past Medical History Past Medical History: Diabetes-Type II, Hypertension, Other Additional Past Medical Histor: ELEVATED D-DIMER, PALPITATIONS, BACK PAIN, PE, brain tumor Past Surgical History: Appendectomy, Cholecystectomy, , Hysterectomy, Other Additional Past Surgical Histo: LOW BACK Alcohol Use: None Drug Use: None Adult General Chief Complaint Chief Complaint: CHEST PAIN HPI HPI Patient is a 49 year old female who presents with multiple complaints. The pat radha was seen in the ER on October 19 and diagnosed with a brain tumor. The patient states that she's been having right-sided weakness due to this but states that today her left knee gave out started having left-sided weakness. The patient also been having intermittent chest pains been ongoing she states due to anxiety. The patient also states was on Lovenox her recent hospital visit and states she's been having abdominal bruising and pain to the right side of her abdomen. She also started having intermittent nosebleeds yesterday. Reports her pain is 10 out of 10 in severity. Review of Systems Review of Systems Constitutional: Denies fever or chills [] Eyes: Denies change in visual acuity, redness, or eye pain [] HENT: Denies nasal congestion or sore throat [] Respiratory: Denies cough or shortness of breath [] Cardiovascular: No additional information not addressed in HPI [] GI: Reports abdominal pain, Denies nausea, vomiting, bloody stools or diarrhea [] : Denies dysuria or hematuria [] Musculoskeletal: Denies back pain or joint pain [] Integument: Denies rash or skin lesions [] Neurologic: Reports headache, Right sided weakness, and weakness on left side. Endocrine: Denies polyuria or polydipsia [] Complete systems were reviewed and found to be within normal limits, except as documented in this note. Current Medications Current Medications Current Medications Medications (Trade) Dose Ordered Sig/Nikki Start Time Stop Time Status Last Admin Dose Admin Albuterol Sulfate (Ventolin Neb Soln) 2.5 mg PRN Q6HRS PRN 11/01/19 16:30 UNV Alprazolam (Xanax) 0.25 mg PRN TID PRN 11/01/19 16:30 UNV Amlodipine Besylate (Norvasc) 5 mg DAILY 11/02/19 09:00 UNV Cyclosporine (Restasis) 1 drop BID 11/01/19 21:00 UNV Dextrose (Dextrose 50%-Water Syringe) 12.5 gm PRN Q15MIN PRN 11/01/19 16:30 UNV Fluticasone Propionate (Flonase) 2 spray DAILY 11/02/19 09:00 UNV Hydromorphone HCl (Dilaudid) 0.5 mg 1X STAT 11/01/19 16:21 11/01/19 16:23 DC Info (CONTRAST GIVEN -- Rx MONITORING) 1 each PRN DAILY PRN 11/01/19 14:00 11/03/19 13:59 Insulin Human Lispro (HumaLOG) 0-9 UNITS TIDAC 11/01/19 16:30 UNV Iohexol (Omnipaque 300 Mg/ml) 75 ml 1X ONCE 11/01/19 13:45 11/01/19 13:46 DC 11/01/19 14:08 75 ML Lactobacillus Rhamnosus (Culturelle) 1 cap BID 11/01/19 21:00 UNV Lidocaine (Lidoderm) 1 patch DAILY 11/02/19 09:00 UNV Metoprolol Succinate (Toprol Xl) 100 mg HS 11/01/19 21:00 UNV Non-Formulary Medication (Insulin Detemir (Levemir)) 30 unit HS 11/01/19 21:00 UNV Non-Formulary Medication (Ondansetron Hcl ) 2 tab PRN Q8HRS PRN 11/01/19 16:30 UNV Non-Formulary Medication (Polyethylene Glycol 3350 ) 17 gm PRN PRN 11/01/19 16:30 UNV Non-Formulary Medication (Rosuvastatin Calcium (Crestor)) 0.5 tab DAILY 11/02/19 09:00 UNV Nystatin (Nystop) 1 lauren BID 11/01/19 21:00 UNV Ondansetron HCl (Zofran) 4 mg 1X ONCE 11/01/19 13:00 11/01/19 13:13 DC 11/01/19 13:26 4 MG Pantoprazole Sodium (Protonix) 40 mg DAILY 11/02/19 09:00 UNV Senna/Docusate Sodium (Senna Plus) 1 tab BID 11/01/19 21:00 UNV Sodium Chloride 500 ml @ 500 mls/hr 1X ONCE 11/01/19 16:30 11/01/19 17:29 Sucralfate (Carafate) 1 gm TID 11/01/19 21:00 UNV Tramadol HCl (Ultram) 50 mg PRN Q8HRS PRN 11/01/19 16:30 UNV Allergies Allergies Allergies Coded Allergies Type Severity Reaction Last Updated Verified azithromycin Allergy Intermediate 10/12/19 Yes codeine Allergy Intermediate 05/06/17 Yes morphine Allergy Intermediate 11/01/19 Yes Physical Exam Physical Exam Constitutional: Well developed, well nourished, no acute distress, non-toxic appearance. [] HENT: Normocephalic, atraumatic, bilateral external ears normal, oropharynx moist, no oral exudates, nose normal. [] Eyes: PERRLA, EOMI, conjunctiva normal, no discharge. [] Neck: Normal range of motion, no tenderness, supple, no stridor. [] Cardiovascular:Heart rate regular rhythm, no murmur [] Lungs & Thorax: Bilateral breath sounds clear to auscultation [] Abdomen: Bowel sounds normal, ecchymosis to R sided of abdomen, hard to touch, no masses, no pulsatile masses. [] Skin: Warm, dry, no erythema, no rash, pale Back: No tenderness, no CVA tenderness. [] Extremities: No tenderness, no cyanosis, no clubbing, ROM intact, no edema. [] Neurologic: Alert and oriented X 3, normal motor function, normal sensory function, no focal deficits noted. [] Psychologic: Affect normal, judgement normal, mood normal. [] Current Patient Data Vital Signs Vital Signs Date Time Temp Pulse Resp B/P (MAP) Pulse Ox O2 Delivery O2 Flow Rate FiO2 11/01/19 13:36 106 21 96/77 (83) 98 Room Air 11/01/19 12:37 98.3 98.3 Lab Values Laboratory Tests Test 11/01/19 12:55 11/01/19 13:50 White Blood Count 81.2 x10^3/uL (4.0-11.0) *H Red Blood Count 3.14 x10^6/uL (3.50-5.40) L Hemoglobin 9.1 g/dL (12.0-15.5) L Hematocrit 28.3 % (36.0-47.0) L Mean Corpuscular Volume 90 fL (79-100) Mean Corpuscular Hemoglobin 29 pg (25-35) Mean Corpuscular Hemoglobin Concent 32 g/dL (31-37) Red Cell Distribution Width 15.3 % (11.5-14.5) H Platelet Count 527 x10^3/uL (140-400) H Neutrophils (%) (Auto) 90 % (31-73) H Lymphocytes (%) (Auto) 7 % (24-48) L Monocytes (%) (Auto) 3 % (0-9) Eosinophils (%) (Auto) 0 % (0-3) Basophils (%) (Auto) 1 % (0-3) Neutrophils # (Auto) 72.9 x10^3/uL (1.8-7.7) H Lymphocytes # (Auto) 5.5 x10^3/uL (1.0-4.8) H Monocytes # (Auto) 2.0 x10^3/uL (0.0-1.1) H Eosinophils # (Auto) 0.4 x10^3/uL (0.0-0.7) Basophils # (Auto) 0.4 x10^3/uL (0.0-0.2) H Platelet Estimate Pending Prothrombin Time 14.8 SEC (11.7-14.0) H Prothrombin Time INR 1.2 (0.8-1.1) H Activated Partial Thromboplast Time 34 SEC (24-38) Sodium Level 135 mmol/L (136-145) L Potassium Level 4.2 mmol/L (3.5-5.1) Chloride Level 100 mmol/L (98-107) Carbon Dioxide Level 28 mmol/L (21-32) Anion Gap 7 (6-14) Blood Urea Nitrogen 31 mg/dL (7-20) H Creatinine 1.0 mg/dL (0.6-1.0) Estimated GFR (Cockcroft-Gault) 59.4 BUN/Creatinine Ratio 31 (6-20) H Glucose Level 364 mg/dL (70-99) H Calcium Level 8.3 mg/dL (8.5-10.1) L Magnesium Level 1.8 mg/dL (1.8-2.4) Total Bilirubin 0.5 mg/dL (0.2-1.0) Aspartate Amino Transferase (AST) 32 U/L (15-37) Alanine Aminotransferase (ALT) 56 U/L (14-59) Alkaline Phosphatase 61 U/L (46-116) Creatine Kinase 23 U/L (26-192) L Troponin I Quantitative < 0.017 ng/mL (0.000-0.055) Total Protein 6.0 g/dL (6.4-8.2) L Albumin 3.0 g/dL (3.4-5.0) L Albumin/Globulin Ratio 1.0 (1.0-1.7) Lactic Acid Level 2.6 mmol/L (0.4-2.0) H Laboratory Tests 11/01/19 12:55 Laboratory Tests 11/01/19 12:55 EKG EKG EKG interpreted by Dr. Peterson Sinus tachycardia at 101. [] Radiology/Procedures Radiology/Procedures [facility] [address] [place] [address] IMAGING REPORT Signed PATIENT: ANKIT MCGREGOR LACCOUNT: [id number] : 1970 LOCATION: ER AGE: 49 SEX: F EXAM STATUS: REG ER ORD. PHYSICIAN: YOSSI JONES APRN REASON: abd bruising, pain, RLQ PROCEDURE: CT ABD PELV W/ IV CONTRST ONLY CT ABD PELV W/ IV CONTRST ONLY Indication: Abdominal bruising, pain, right lower quadrant pain. Exposure: One or more of the following individualized dose reduction techniques were utilized for this examination: 1. Automated exposure control 2. Adjustment of the mA and/or kV according to patient size 3. Use of iterative reconstruction technique. Technique: Intravenous contrast was given. No oral contrast per request. Comparison: None FINDINGS: Linear atelectasis in the lung bases. Liver and spleen appear unremarkable. Pancreas appears unremarkable. No evidence of adrenal mass. Kidneys demonstrate symmetric enhancement. Low-density lesion lower pole left kidney measures 27 mm and 20 Hounsfield units, most likely a cyst. No hydronephrosis. Gallbladder surgically absent. Aorta is nonaneurysmal. Incidentally noted retroaortic left renal vein. No significant lymph node enlargement. No significant distention of distal esophagus and stomach. No significant small bowel distention. No evidence of acute colitis. Moderate stool throughout colon. The appendix is not clearly visualized. No evidence of pneumoperitoneum or ascites. Urinary bladder appears unremarkable. No evidence of pelvic mass. Large complex collection in the subcutaneous tissues of the right abdomen. Density characteristics suggest hemorrhagic content. The bulk of the primary collection measures about 23 cm AP by 8 cm wide by 15 cm height. There is some linear hyperdensity within the collection compatible with active extravasation of blood. Extensive stranding within the surrounding fat. There are numerous smaller areas of subcutaneous nodularity may represent additional small hematomas. Mass effect from the collection indents the abdominal wall slightly. Degenerative spondylosis. Mild anterior wedging of the T12 vertebrae. No acute fracture or aggressive bone destruction IMPRESSION: 1. Large complex collection in the right subcutaneous flank, compatible with a massive hematoma including a component of active hemorrhage. 2. Left renal lesion most compatible with a cyst. FOR INTERNAL CODING PURPOSES Critical result: Findings discussed with Dr. Yossi Jones in the emergency room by telephone at 11/01/2019 2:50 PM. RESULT CODE: (C) Electronically signed by: Yossi Mayfield MD (11/01/2019 2:51 PM) [id number] DICTATED and SIGNED BY: YOSSI MAYFIELD MD DATE: 11/01/19 1454 [][address] [id number] IMAGING REPORT Signed PATIENT: ANKIT MCGREGOR LACCOUNT: [id number] : 1970 LOCATION: ER AGE: 49 SEX: F EXAM STATUS: REG ER ORD. PHYSICIAN: YOSSI JONES APRN REASON: elevated white count, weakness PROCEDURE: PORTABLE CHEST 1V PORTABLE CHEST 1V History: Elevated white count. Weakness. Comparison: October 21, 2019. Findings: Right basilar patchy opacity, unchanged. No pleural effusion. No pneumothorax. Unchanged heart size. Elevation of the right hemidiaphragm, unchanged. Impression: 1. Patchy right basilar opacity, most likely atelectasis, unchanged. Electronically signed by: Sunny Whaley DO (11/01/2019 2:14 PM) [id number] DICTATED and SIGNED BY: SUNNY WHALEY DO DATE: 11/01/19 1414 Course & Med Decision Making Course & Med Decision Making Pertinent Labs and Imaging studies reviewed. (See chart for details) Will get labs, chest x-ray, ua, CT abdomen and give supportive care. Labs: Lactic 2.6 WBC 81.3 Hemoglobin 9.1 (Down from 14.2) Lactic is elevated at 2.6, do not believe this is from sepsis but will give a 1500 mL bolus of NS to cover sepsis fluids. IMPRESSION: 1. Large complex collection in the right subcutaneous flank, compatible with a massive hematoma including a component of active hemorrhage. 2. Left renal lesion most compatible with a cyst. Impression: 1. Patchy right basilar opacity, most likely atelectasis, unchanged. Discussed with Dr. Wadsworth at [address] report. He states patient is not a candidate for surgery at this time. Discussed with Dr. Pimentel at 1530 about WBC and he believes the WBC is reactive in nature. Will page Dr. Penn to discuss patient. Will also consult Dr. Clark from Neurosurgery. Discussed with Dr. Penn who agrees to admission. Dragon Disclaimer Dragon Disclaimer This electronic medical record was generated, in whole or in part, using a voice recognition dictation system. Departure Departure Impression: Primary Impression: Generalized weakness Additional Impressions: Abdominal hemorrhage Lactic acidosis Leukocytosis Disposition: ADMITTED INPATIENT Admitting Physician: MAGGI Condition: CRITICAL Referrals: LADY MOSLEY APRN (PCP) Problem Qualifiers Additional Impressions: Leukocytosis Leukocytosis type: unspecified Qualified Codes: D72.829 - Elevated white blood cell count, unspecified YOSSI JONES APRN Nov 01, 2019 13:34
[2019-11-01 13:39] LABS: MAGNESIUM 1.8 mg/dL (1.8-2.4); TOTAL BILIRUBIN 0.5 mg/dL (0.2-1.0)
[2019-11-01] MEDS ORDERED: IOHEXOL 300 MG/ML 100ML VIAL. IV ONE (13:45)
[2019-11-01] MEDS ORDERED: CONTRAST GIVEN. MC PRN (14:00)
--- NOTE | 2019-11-01 14:17 | RAD ---
PORTABLE CHEST 1V History: Elevated white count. Weakness. Comparison: October 21, 2019. Findings: Right basilar patchy opacity, unchanged. No pleural effusion. No pneumothorax. Unchanged heart size. Elevation of the right hemidiaphragm, unchanged. Impression: 1. Patchy right basilar opacity, most likely atelectasis, unchanged. Electronically signed by: Sunny Whaley DO (11/01/2019 2:14 PM) [id number]
--- NOTE | 2019-11-01 14:47 | PDOC1 ---
History and Physical Date of Admission Date of Admission DATE: 11/01/19 TIME: 14:47 Identification/Chief Complaint Chief Complaint Abdominal pain Source Source: Patient History of Present Illness History of Present Illness Ms Alejo is a 49-year-old female w/ PMHx Anxiety, CAD, Diabetes, High Cholesterol, Hypertension, Kidney Stones, Ovarian Cyst, Pneumonia, pulmonary embolism, tachycardia who comes to ED with presyncope. On her way to Oncology today her left leg gave out on her and she felt like she was floating. She's been having abdominal bruising and pain to the right side of her abdomen with swelling and the bruise feels so tense that she thinks an alien or baby is going to burst out. She also started having intermittent nosebleeds yesterday and again today. Reports her pain is 10 out of 10 in severity. . She is still a little confused, better than prior admit. She was feeling uncoordinated and notes her headache she has been having EKG shows a sinus rhythm at 94 bpm, normal axis, QTC 466 ms, no ST elevation. No CP or SOB. Labs concerning for WBC of 81 CT abdomen shows large right subcutaneous hematoma with active bleeding. Past Medical History Cardiovascular: HTN, Hyperlipidemia, Other Pulmonary: Asthma, Pulmonary embolus, Other CENTRAL NERVOUS SYSTEM: Periperal neuropathy, Other GI: Peptic Ulcer disease, Other Heme/Onc: No pertinent hx Hepatobiliary: No pertinent hx Psych: Anxiety, Depression, Other Musculoskeletal: low back pain Rheumatologic: No pertinent hx Infectious disease: No pertinent hx Renal/: Other Endocrine: Diabetes Past Surgical History Past Surgical History: Appendectomy, Cholecystectomy, , Hysterectomy, Other Family History Family History: Coronary Artery Disease, Hypertension Social History Smoke: No ALCOHOL: occassional Drugs: None Current Medications Current Medications Current Medications Sodium Chloride 500 ml @ 500 mls/hr 1X ONCE IV Last administered on 11/01/19at 13:00; Start 11/01/19 at 13:00; Stop 11/01/19 at 13:59; Status DC Ondansetron HCl (Zofran) 4 mg 1X ONCE IV Last administered on 11/01/19at 13:26; Start 11/01/19 at 13:00; Stop 11/01/19 at 13:13; Status DC Hydromorphone HCl (Dilaudid) 0.5 mg 1X STAT IVP Last administered on 11/01/19at 13:26; Start 11/01/19 at 12:59; Stop 11/01/19 at 13:13; Status DC Iohexol (Omnipaque 300 Mg/ml) 75 ml 1X ONCE IV Last administered on 11/01/19at 14:08; Start 11/01/19 at 13:45; Stop 11/01/19 at 13:46; Status DC Info (CONTRAST GIVEN -- Rx MONITORING) 1 each PRN DAILY PRN MC SEE COMMENTS; Start 11/01/19 at 14:00; Stop 11/03/19 at 13:59 Active Scripts Active Enoxaparin Sodium 120 Mg/0.8 Ml Disp.syrin 120 Mg SQ Q12HR 28 Days Dexamethasone 4 Mg Tablet 4 Mg PO BID 14 Days Culturelle (Lactobacillus Rhamnosus Gg) 1 Each Cap.sprink 1 Cap PO BID 30 Days Amlodipine Besylate 5 Mg Tablet 5 Mg PO DAILY 30 Days Cefdinir 300 Mg Capsule 300 Mg PO BID 10 Days Reported Cymbalta (Duloxetine Hcl) 60 Mg Capsule.dr 1 Cap PO BID Lyrica (Pregabalin) 150 Mg Capsule 1 Cap PO BID Novolog (Insulin Aspart) 100 Unit/1 Ml Cartridge 10-45 Unit SQ QIDACHS Levemir (Insulin Detemir) 100 Unit/1 Ml Vial 30 Unit SQ HS Linzess (Linaclotide) 145 Mcg Capsule 145 Mcg PO PRN PRN Crestor (Rosuvastatin Calcium) 40 Mg Tablet 0.5 Tab PO DAILY Polyethylene Glycol 3350 2,500 Gm Powder 17 Gm PO PRN PRN Xanax (Alprazolam) 1 Mg Tablet 1 Tab PO TID Restasis (Cyclosporine) 1 Each Droperette 1 Drop EACHEYE BID Proair Hfa Inhaler (Albuterol Sulfate) 8.5 Gm Hfa.aer.ad 1 Puff INH PRN Q6HRS PRN Tramadol Hcl 50 Mg Tablet 1 Tab PO PRN Q8HRS PRN Ondansetron Hcl 4 Mg Tablet 2 Tab PO PRN Q8HRS PRN Nystatin 15 Gm Powder 1 Raza TP BID Lidocaine PATCH (Lidocaine) 1 Each Adh..patch 1 Each TP DAILY Fluticasone Propionate Nasal Largo (Fluticasone Propionate) 16 Gm Largo.susp 2 Largo NS DAILY Percocet 5-325 Mg Tablet (Oxycodone/Acetaminophen) 1 Each Tablet 1-2 Tab PO Q4-6HRS PRN LAST DOSE AT NEXT DOSE Senna-Docusate Sodium Tablet (Sennosides/Docusate Sodium) 1 Each Tablet 1 Each PO BID LAST DOSE THIS AM NEXT DOSE TONIGHT Robaxin-750 (Methocarbamol) 750 Mg Tablet 1 Tab PO TID LAST DOSE AT 1400 (2PM) MAY HAVE THE NEXT DOSE AT 10 PM Protonix (Pantoprazole Sodium) 40 Mg Tablet.dr 40 Mg PO DAILY LST DOSE THIS AM NEXT DOSE TOMORROW AM Carafate (Sucralfate) 1 Gm Tablet 1 Tab PO TID Meds not given this hospital admission. May resume home medications as approved by Physician. MAY TAKE WHEN AVAILABLE Xarelto (Rivaroxaban) 15 Mg Tablet 15 Mg PO DAILY Meds not given this hospital admission. May resume home medications as approved by Physician. MAY RESUME WHEN AVAILABLE Metoprolol Succinate ( Xl ) (Metoprolol Succinate) 100 Mg Tab.er.24h 100 Mg PO HS LAST DOSE THIS AM NEXT DOSE TOMORROW AM Allergies Allergies: Coded Allergies: azithromycin (Verified Allergy, Intermediate, 10/12/19) codeine (Verified Allergy, Intermediate, 05/06/17) morphine (Verified Allergy, Intermediate, 11/01/19) Tolerates hydromorphone and oxycodone ROS General: YES: Fatigue, Malaise; No: Chills, Night Sweats, Appetite, Other PSYCHOLOGICAL ROS: YES: Anxiety, Disorientation; No: Behavioral Disorder, Concentration difficultie, Decreased libido, Depression, Hallucinations, Hostility, Irritablity, Memory difficulties, Mood Swings, Obsessive thoughts, Physical abuse, Sexual abuse, Sleep disturbances, Suicidal ideation, Other Eyes: No Blurry vision, No Decreased vision, No Double vision, No Dry eyes, No Excessive tearing, No Eye Pain, No Itchy Eyes, No Loss of vision, No Photophobia, No Scotomata, No Uses contacts, No Uses glasses, No Other HEENT: YES: Epistaxis; No: Heacaches, Visual Changes, Hearing change, Nasal congestion, Nasal discharge, Oral lesions, Sinus pain, Sore Throat, Sneezing, Snoring, Tinnitus, Vertigo, Vocal changes, Other ALLERGY AND IMMUNOLOGY: No: Hives, Insect Bite Sensitivity, Itchy/Watery Eyes, Nasal Congestion, Post Nasal Drip, Seasonal Allergies, Other Hematological and Lymphatic: YES: Bleeding Problems, Blood Clots; No: Blood Transfusions, Brusing, Night Sweats, Pallor, Swollen Lymph Nodes, Other ENDOCRINE: No: Breast Changes, Galactorrhea, Hair Pattern Changes, Hot Flashes, Malaise/lethargy, Mood Swings, Palpitations, Polydipsia/polyuria, Skin Changes, Temperature Intolerance, Unexpected Weight Changes, Other Breast: No New/Changing Breast Lumps, No Nipple changes, No Nipple discharge, No Other Respiratory: No: Cough, Hemoptysis, Orthopnea, Pleuritic Pain, Shortness of breath, SOB with excertion, Sputum Changes, Stridor, Tachypnea, Wheezing, Other Cardiovascular: No Chest Pain, No Palpitations, No Orthopnea, No Paroxysmal Noc. Dyspnea, No Edema, No Lt Headedness, No Other Gastrointestinal: Yes Nausea, Yes Abdominal Pain; No Vomiting, No Diarrhea, No Constipation, No Melena, No Hematochezia, No Other Genitourinary: No Dysuria, No Frequency, No Incontinence, No Hematuria, No Retention, No Discharge, No Urgency, No Pain, No Flank Pain, No Other, No , No , No , No , No , No , No Musculoskeletal: No Gait Disturbance, No Joint Pain, No Joint Stiffness, No Joint Swelling, No Muscle Pain, No Muscular Weakness, No Pain In:, No Swelling In:, No Other Neurological: No Behavorial Changes, No Bowel/Bladder ControlChng, No Confusion, No Dizziness, No Gait Disturbance, No Headaches, No Impaired Coord/balance, No Memory Loss, No Numbness/Tingling, No Seizures, No Speech Problems, No Tremors, No Visual Changes, No Weakness, No Other Skin: No Dry Skin, No Eczema, No Hair Changes, No Lumps, No Mole Changes, No Mottling, No Nail Changes, No Pruritus, No Rash, No Skin Lesion Changes, No Other, No Acne Physical Exam General: Alert, Cooperative, mild distress HEENT: Atraumatic, PERRLA, EOMI, Mucous membr. moist/pink Lungs: Clear to auscultation, Normal air movement Heart: S1S2, RRR, no thrills, no rubs, no gallops, no murmurs Abdomen: Normal bowel sounds, Other (RLQ tender and tense) Rectal Exam: not examined Extremities: No clubbing, No cyanosis, No edema, Normal pulses, No tenderness/swelling Skin: Other (Ecchymosis on right abdomen) Neuro: Normal speech, Strength at 5/5 X4 ext, Normal tone, Sensation intact, Cranial nerves 3-12 NL, Reflexes 2+ Vitals Vitals Vital Signs Date Time Temp Pulse Resp B/P (MAP) Pulse Ox O2 Delivery O2 Flow Rate FiO2 11/01/19 13:36 106 21 96/77 (83) 98 Room Air 11/01/19 12:37 98.3 98.3 Labs Labs Laboratory Tests Test 11/01/19 12:55 11/01/19 13:50 White Blood Count 81.2 x10^3/uL (4.0-11.0) Red Blood Count 3.14 x10^6/uL (3.50-5.40) Hemoglobin 9.1 g/dL (12.0-15.5) Hematocrit 28.3 % (36.0-47.0) Mean Corpuscular Volume 90 fL (79-100) Mean Corpuscular Hemoglobin 29 pg (25-35) Mean Corpuscular Hemoglobin Concent 32 g/dL (31-37) Red Cell Distribution Width 15.3 % (11.5-14.5) Platelet Count 527 x10^3/uL (140-400) Neutrophils (%) (Auto) 90 % (31-73) Lymphocytes (%) (Auto) 7 % (24-48) Monocytes (%) (Auto) 3 % (0-9) Eosinophils (%) (Auto) 0 % (0-3) Basophils (%) (Auto) 1 % (0-3) Neutrophils # (Auto) 72.9 x10^3/uL (1.8-7.7) Lymphocytes # (Auto) 5.5 x10^3/uL (1.0-4.8) Monocytes # (Auto) 2.0 x10^3/uL (0.0-1.1) Eosinophils # (Auto) 0.4 x10^3/uL (0.0-0.7) Basophils # (Auto) 0.4 x10^3/uL (0.0-0.2) Prothrombin Time 14.8 SEC (11.7-14.0) Prothromb Time International Ratio 1.2 (0.8-1.1) Activated Partial Thromboplast Time 34 SEC (24-38) Sodium Level 135 mmol/L (136-145) Potassium Level 4.2 mmol/L (3.5-5.1) Chloride Level 100 mmol/L (98-107) Carbon Dioxide Level 28 mmol/L (21-32) Anion Gap 7 (6-14) Blood Urea Nitrogen 31 mg/dL (7-20) Creatinine 1.0 mg/dL (0.6-1.0) Estimated GFR (Cockcroft-Gault) 59.4 BUN/Creatinine Ratio 31 (6-20) Glucose Level 364 mg/dL (70-99) Calcium Level 8.3 mg/dL (8.5-10.1) Magnesium Level 1.8 mg/dL (1.8-2.4) Total Bilirubin 0.5 mg/dL (0.2-1.0) Aspartate Amino Transf (AST/SGOT) 32 U/L (15-37) Alanine Aminotransferase (ALT/SGPT) 56 U/L (14-59) Alkaline Phosphatase 61 U/L (46-116) Creatine Kinase 23 U/L (26-192) Troponin I Quantitative < 0.017 ng/mL (0.000-0.055) Total Protein 6.0 g/dL (6.4-8.2) Albumin 3.0 g/dL (3.4-5.0) Albumin/Globulin Ratio 1.0 (1.0-1.7) Lactic Acid Level 2.6 mmol/L (0.4-2.0) Laboratory Tests Test 11/01/19 12:55 11/01/19 13:50 White Blood Count 81.2 x10^3/uL (4.0-11.0) Red Blood Count 3.14 x10^6/uL (3.50-5.40) Hemoglobin 9.1 g/dL (12.0-15.5) Hematocrit 28.3 % (36.0-47.0) Mean Corpuscular Volume 90 fL (79-100) Mean Corpuscular Hemoglobin 29 pg (25-35) Mean Corpuscular Hemoglobin Concent 32 g/dL (31-37) Red Cell Distribution Width 15.3 % (11.5-14.5) Platelet Count 527 x10^3/uL (140-400) Neutrophils (%) (Auto) 90 % (31-73) Lymphocytes (%) (Auto) 7 % (24-48) Monocytes (%) (Auto) 3 % (0-9) Eosinophils (%) (Auto) 0 % (0-3) Basophils (%) (Auto) 1 % (0-3) Neutrophils # (Auto) 72.9 x10^3/uL (1.8-7.7) Lymphocytes # (Auto) 5.5 x10^3/uL (1.0-4.8) Monocytes # (Auto) 2.0 x10^3/uL (0.0-1.1) Eosinophils # (Auto) 0.4 x10^3/uL (0.0-0.7) Basophils # (Auto) 0.4 x10^3/uL (0.0-0.2) Prothrombin Time 14.8 SEC (11.7-14.0) Prothromb Time International Ratio 1.2 (0.8-1.1) Activated Partial Thromboplast Time 34 SEC (24-38) Sodium Level 135 mmol/L (136-145) Potassium Level 4.2 mmol/L (3.5-5.1) Chloride Level 100 mmol/L (98-107) Carbon Dioxide Level 28 mmol/L (21-32) Anion Gap 7 (6-14) Blood Urea Nitrogen 31 mg/dL (7-20) Creatinine 1.0 mg/dL (0.6-1.0) Estimated GFR (Cockcroft-Gault) 59.4 BUN/Creatinine Ratio 31 (6-20) Glucose Level 364 mg/dL (70-99) Calcium Level 8.3 mg/dL (8.5-10.1) Magnesium Level 1.8 mg/dL (1.8-2.4) Total Bilirubin 0.5 mg/dL (0.2-1.0) Aspartate Amino Transf (AST/SGOT) 32 U/L (15-37) Alanine Aminotransferase (ALT/SGPT) 56 U/L (14-59) Alkaline Phosphatase 61 U/L (46-116) Creatine Kinase 23 U/L (26-192) Troponin I Quantitative < 0.017 ng/mL (0.000-0.055) Total Protein 6.0 g/dL (6.4-8.2) Albumin 3.0 g/dL (3.4-5.0) Albumin/Globulin Ratio 1.0 (1.0-1.7) Lactic Acid Level 2.6 mmol/L (0.4-2.0) Images Images CXR - Patchy right basilar opacity, most likely atelectasis, unchanged. CT abdomen - Linear atelectasis in the lung bases. Liver and spleen appear unrem arkable. Pancreas appears unremarkable. No evidence of adrenal mass. Kidneys demonstrate symmetric enhancement. Low-density lesion lower pole left kidney measures 27 mm and 20 Hounsfield units, most likely a cyst. No hydronephrosis. Gallbladder surgically absent. Aorta is nonaneurysmal. Incidentally noted retroaortic left renal vein. No significant lymph node enlargement. No significant distention of distal esophagus and stomach. No significant small bowel distention. No evidence of acute colitis. Moderate stool throughout colon. The appendix is not clearly visualized. No evidence of pneumoperitoneum or ascites. Urinary bladder appears unremarkable. No evidence of pelvic mass. Large complex collection in the subcutaneous tissues of the right abdomen. Density characteristics suggest hemorrhagic content. The bulk of the primary collection measures about 23 cm AP by 8 cm wide by 15 cm height. There is some linear hyperdensity within the collection compatible with active extravasation of blood. Extensive stranding within the surrounding fat. There are numerous smaller areas of subcutaneous nodularity may represent additional small hematom as. Mass effect from the collection indents the abdominal wall slightly. Degenerative spondylosis. Mild anterior wedging of the T12 vertebrae. No acute fracture or aggressive bone destruction IMPRESSION: 1. Large complex collection in the right subcutaneous flank, compatible with a massive hematoma including a component of active hemorrhage. 2. Left renal lesion most compatible with a cyst. VTE Prophylaxis Ordered VTE Prophylaxis Devices: Yes VTE Pharmacological Prophylaxi: No Assessment/Plan Assessment/Plan A/P: Abdominal pain - with swelling - large hematoma Elevated WBC - much higher now. This needs hematology. Will get smear with pathology Acute encephalopathy - likely metabolic with meds - narcotics and benzos and brain mass, possibly toxic as well Brain Mass - meningioma with midline shifting, vasogenic edema. On steroids - Left parietal extra-axial solid enhancing mass has imaging characteristicssuggestive of a meningioma. surgery planned this coming tuesday DM2 - basal bolus plus regimen of insulin Chronic Back Pain and Sciatica Rt Leg Hx PE - sees hematology, on xarelto transitioned to lovenox. Consult hematology for further recs Hypotension - new, will hold her amlodipine Epistaxis - possibly lovenox, though I am more concerned about a hematologic malignancy FEN - General diet PPX - Xarelto--> Lovenox FULL CODE Dispo - inpatient DEVEN BAZZI MD Nov 01, 2019 14:47
--- NOTE | 2019-11-01 14:54 | RAD ---
CT ABD PELV W/ IV CONTRST ONLY Indication: Abdominal bruising, pain, right lower quadrant pain. Exposure: One or more of the following individualized dose reduction techniques were utilized for this examination: 1. Automated exposure control 2. Adjustment of the mA and/or kV according to patient size 3. Use of iterative reconstruction technique. Technique: Intravenous contrast was given. No oral contrast per request. Comparison: None FINDINGS: Linear atelectasis in the lung bases. Liver and spleen appear unremarkable. Pancreas appears unremarkable. No evidence of adrenal mass. Kidneys demonstrate symmetric enhancement. Low-density lesion lower pole left kidney measures 27 mm and 20 Hounsfield units, most likely a cyst. No hydronephrosis. Gallbladder surgically absent. Aorta is nonaneurysmal. Incidentally noted retroaortic left renal vein. No significant lymph node enlargement. No significant distention of distal esophagus and stomach. No significant small bowel distention. No evidence of acute colitis. Moderate stool throughout colon. The appendix is not clearly visualized. No evidence of pneumoperitoneum or ascites. Urinary bladder appears unremarkable. No evidence of pelvic mass. Large complex collection in the subcutaneous tissues of the right abdomen. Density characteristics suggest hemorrhagic content. The bulk of the primary collection measures about 23 cm AP by 8 cm wide by 15 cm height. There is some linear hyperdensity within the collection compatible with active extravasation of blood. Extensive stranding within the surrounding fat. There are numerous smaller areas of subcutaneous nodularity may represent additional small hematomas. Mass effect from the collection indents the abdominal wall slightly. Degenerative spondylosis. Mild anterior wedging of the T12 vertebrae. No acute fracture or aggressive bone destruction IMPRESSION: 1. Large complex collection in the right subcutaneous flank, compatible with a massive hematoma including a component of active hemorrhage. 2. Left renal lesion most compatible with a cyst. FOR INTERNAL CODING PURPOSES Critical result: Findings discussed with Dr. Yossi Boateng in the emergency room by telephone at 11/01/2019 2:50 PM. RESULT CODE: (C) Electronically signed by: Yossi Mayfield MD (11/01/2019 2:51 PM) [id number]
[2019-11-01] MEDS ORDERED: ONDANSETRON PF 4 MG/2 ML VIAL. IV PRN (16:30)
[2019-11-01] MEDS ORDERED: traMADol 50 MG TABLET PO PRN (16:30)
[2019-11-01] MEDS ORDERED: ALBUTEROL SULFATE 2.5 MG/3 ML NEBU. INH PRN (16:30)
[2019-11-01] MEDS ORDERED: DEXTROSE 50% 25 GM / 50ML DISP.SYRIN. IV PRN (16:30)
[2019-11-01] MEDS ORDERED: ALPRAZolam 1 MG TABLET PO PRN (16:30)
[2019-11-01] MEDS ORDERED: IV NORMAL SALINE 1000ML BAG 1,000 ML IV ONE (16:30)
[2019-11-01 16:38] LABS: % BANDS 11 % (0-9); % LYMPHS 4 % (24-48); % METAS 6 % (0-0); % MONOS 2 % (0-10); % PROS 1 % (0-0)
[2019-11-01 16:42] LABS: PLT ESTIMATE INCREASED (ADEQUATE); POLYCHROMASIA SLIGHT
[2019-11-01 16:44] LABS: % MYELOS 15 % (0-0)
[2019-11-01] MEDS: INSULIN LISPRO 300 UNITS/3 ML VIAL. SQ SCH (18:21)
--- NOTE | 2019-11-01 18:23 | NUR ---
Patient arrived on unit at 1730. A/O, able to answer all admission requirements. Patient has large bruise that she states is related to Lovenox shots she was d/c with upon her last admission last week from [facility]. Large bruise on R lateral side of abdomen marked-- patient states its very painful. Pt's abdomen is purple and firm in area of bruise. Patient has cell phone, wallet, clothing in room. States she does not want anything stored in safe. States she has no money with her. No changes to home medications since patient's last admission, Pharmacy verified. See assessments, VS.
[2019-11-01] MEDS: cefTRIAXone IV Push 1 GM VIAL. IVP SCH (18:45)
[2019-11-01] MEDS: SENNOSIDES/DOCUSATE 8.6/50MG TABLET. PO SCH (20:40)
[2019-11-01] MEDS: NYSTATIN TOPICAL POWDER 15GM BOTTLE. TP SCH (20:40)
[2019-11-01] MEDS: LIDOCAINE (700MG/PATCH) PATCH. TP SCH (20:40)
[2019-11-01] MEDS: cycloSPORINE 0.05% OPHTH DROPERETTE. OU SCH (20:41)
[2019-11-01] MEDS: ATORVASTATIN CALCIUM 40 MG TABLET. PO SCH (20:41)
[2019-11-01] MEDS: LACTOBACILLUS RHAMNOSUS GG 1 CAPSULE. PO SCH (20:41)
[2019-11-01] MEDS: METOPROLOL SUCC 24HR ER 100 MG TAB.ER.24H. PO SCH (20:41)
[2019-11-01] MEDS: INSULIN GLARGINE SYRINGE. SQ SCH (20:42)
[2019-11-01] MEDS: HYDROmorphone 2 MG/ML VIAL IV PRN (20:42)
[2019-11-01] MEDS ORDERED: PATCH REMOVAL. MC SCH (21:00)
[2019-11-01] MEDS: ALPRAZolam 0.25 MG TABLET PO PRN (22:36)
[2019-11-02] VITALS (35 sets, daily range): BP systolic 72–116; BP diastolic 52–74
[2019-11-02] MEDS ORDERED: ALBUMIN HUMAN 5% 500 ML IV ONE (02:00)
[2019-11-02] MEDS: HYDROmorphone 2 MG/ML VIAL IV PRN ×4 (04:23→22:25)
[2019-11-02 06:20] LABS: BASO # 0.2 x10^3/uL (0.0-0.2); BASO % 0 % (0-3); EOS # 0.3 x10^3/uL (0.0-0.7); EOS % 0 % (0-3); HEMATOCRIT 21.3 % (36.0-47.0); LYMPH # 8.5 x10^3/uL (1.0-4.8); LYMPH % 12 % (24-48); MEAN CORPUSCULAR HEMOGLOBIN 28 pg (25-35); MEAN CORPUSCULAR HGB CONC 31 g/dL (31-37); MEAN CORPUSCULAR VOLUME 91 fL (79-100); MONO # 2.3 x10^3/uL (0.0-1.1); MONO % 3 % (0-9); NEUT # 62.9 x10^3/uL (1.8-7.7); NEUT % 85 % (31-73); PLATELET COUNT 450 x10^3/uL (140-400); RED BLOOD COUNT 2.33 x10^6/uL (3.50-5.40); RED CELL DISTRIBUTION WIDTH 15.7 % (11.5-14.5)
[2019-11-02 06:27] LABS: CALCIUM 7.5 mg/dL (8.5-10.1); CREATININE 0.9 mg/dL (0.6-1.0); GFR 67.1; POTASSIUM 4.2 mmol/L (3.5-5.1)
[2019-11-02 06:30] LABS: HEMOGLOBIN 6.6 g/dL (12.0-15.5); WHITE BLOOD COUNT 74.2 x10^3/uL (4.0-11.0)
[2019-11-02] MEDS ORDERED: diphenhydrAMINE ORAL ELIXIR 12.5 MG/5 ML ML PO PRN (06:45)
[2019-11-02] MEDS ORDERED: diphenhydrAMINE HCL 25 MG CAPSULE PO PRN (06:45)
[2019-11-02] MEDS ORDERED: ACETAMINOPHEN 325 MG TABLET. PO PRN (06:45)
[2019-11-02] MEDS: SUCRALFATE 1 GM TABLET. PO SCH ×4 (07:30→16:55)
[2019-11-02] MEDS: INSULIN LISPRO 300 UNITS/3 ML VIAL. SQ SCH ×4 (07:30→21:22)
[2019-11-02] MEDS: LACTOBACILLUS RHAMNOSUS GG 1 CAPSULE. PO SCH ×2 (07:45→21:16)
[2019-11-02] MEDS: ALPRAZolam 0.25 MG TABLET PO PRN ×2 (07:48→16:55)
[2019-11-02] MEDS: ONDANSETRON ODT 4 MG TAB.RAPDIS. PO PRN (07:48)
[2019-11-02] MEDS: PANTOPRAZOLE 40 MG TABLET.DR. PO SCH (07:50)
--- NOTE | 2019-11-02 08:26 | PDOC ---
PROGRESS NOTES Chief Complaint Chief Complaint A/P: Abdominal pain - with swelling - large hematoma. Pain control, consult general surgery Acute blood loss anemia - likely 2/2 large right sided abdominal wall hematoma. Given the acute drop in Hb this bleed is acute. Transfused 2u 11/02 Elevated WBC - much higher now. This needs hematology. Will get smear with pathology. Bone marrow biopsy is recommended Acute encephalopathy - likely metabolic with meds - narcotics and benzos and brain mass, possibly toxic as well Brain Mass - meningioma with midline shifting, vasogenic edema. On steroids - Left parietal extra-axial solid enhancing mass has imaging characteristics suggestive of a meningioma. surgery planned this coming tuesday DM2 - basal bolus plus regimen of insulin Chronic Back Pain and Sciatica Rt Leg Hx PE - sees hematology, on xarelto transitioned to lovenox. Consult hematology for further recs Hypotension - new, will hold her amlodipine Epistaxis - possibly lovenox, though I am more concerned about a hematologic malignancy FEN - General diet PPX - Contraindicated FULL CODE Dispo - inpatient History of Present Illness History of Present Illness Ms Alejo is a 49-year-old female w/ PMHx Anxiety, CAD, Diabetes, High Cholesterol, Hypertension, Kidney Stones, Ovarian Cyst, Pneumonia, pulmonary embolism, tachycardia who comes to ED with presyncope. On her way to Oncology today her left leg gave out on her and she felt like she was floating. She's been having abdominal bruising and pain to the right side of her abdomen with swelling and the bruise feels so tense that she thinks an alien or baby is going to burst out. CT abdomen shows large right subcutaneous hematoma with active bleeding. She also started having intermittent nosebleeds day prior to admit and again day of admission. EKG shows a sinus rhythm at 94 bpm, normal axis, QTC 466 ms, no ST elevation. Labs concerning for WBC of 81. Hb 6.6 today. ordered 2u PRBC. She is still a little confused, better than prior admit. She was feeling uncoordinated and notes her headache she has been having. Reports her pain is 10 out of 10 in severity. No CP or SOB. Vitals Vitals Vital Signs Date Time Temp Pulse Resp B/P (MAP) Pulse Ox O2 Delivery O2 Flow Rate FiO2 11/02/19 07:00 91 24 94/66 (75) 98 Room Air 11/02/19 05:20 2.0 11/01/19 20:00 98.0 98.0 Physical Exam General: Alert, Cooperative, mild distress Lungs: Wheezing Abdomen: Normal bowel sounds, Other (RLQ tender and tense) Extremities: No clubbing, No cyanosis, No edema, Normal pulses, No tenderness/swelling Skin: Other (Ecchymosis on right abdomen) Labs LABS Laboratory Tests Test 11/01/19 12:55 11/01/19 13:50 11/01/19 17:07 11/01/19 18:00 White Blood Count 81.2 x10^3/uL (4.0-11.0) Red Blood Count 3.14 x10^6/uL (3.50-5.40) Hemoglobin 9.1 g/dL (12.0-15.5) Hematocrit 28.3 % (36.0-47.0) Mean Corpuscular Volume 90 fL (79-100) Mean Corpuscular Hemoglobin 29 pg (25-35) Mean Corpuscular Hemoglobin Concent 32 g/dL (31-37) Red Cell Distribution Width 15.3 % (11.5-14.5) Platelet Count 527 x10^3/uL (140-400) Neutrophils (%) (Auto) 90 % (31-73) Lymphocytes (%) (Auto) 7 % (24-48) Monocytes (%) (Auto) 3 % (0-9) Eosinophils (%) (Auto) 0 % (0-3) Basophils (%) (Auto) 1 % (0-3) Neutrophils # (Auto) 72.9 x10^3/uL (1.8-7.7) Lymphocytes # (Auto) 5.5 x10^3/uL (1.0-4.8) Monocytes # (Auto) 2.0 x10^3/uL (0.0-1.1) Eosinophils # (Auto) 0.4 x10^3/uL (0.0-0.7) Basophils # (Auto) 0.4 x10^3/uL (0.0-0.2) Segmented Neutrophils % 61 % (35-66) Band Neutrophils % 11 % (0-9) Lymphocytes % 4 % (24-48) Monocytes % 2 % (0-10) Metamyelocytes % 6 % (0-0) Myelocytes % 15 % (0-0) Promyelocytes % 1 % (0-0) Platelet Estimate Increased (ADEQUATE) Large Platelets Few Giant Platelets Occ Polychromasia Slight Prothrombin Time 14.8 SEC (11.7-14.0) Prothromb Time International Ratio 1.2 (0.8-1.1) Activated Partial Thromboplast Time 34 SEC (24-38) Sodium Level 135 mmol/L (136-145) Potassium Level 4.2 mmol/L (3.5-5.1) Chloride Level 100 mmol/L (98-107) Carbon Dioxide Level 28 mmol/L (21-32) Anion Gap 7 (6-14) Blood Urea Nitrogen 31 mg/dL (7-20) Creatinine 1.0 mg/dL (0.6-1.0) Estimated GFR (Cockcroft-Gault) 59.4 BUN/Creatinine Ratio 31 (6-20) Glucose Level 364 mg/dL (70-99) Calcium Level 8.3 mg/dL (8.5-10.1) Magnesium Level 1.8 mg/dL (1.8-2.4) Total Bilirubin 0.5 mg/dL (0.2-1.0) Aspartate Amino Transf (AST/SGOT) 32 U/L (15-37) Alanine Aminotransferase (ALT/SGPT) 56 U/L (14-59) Alkaline Phosphatase 61 U/L (46-116) Creatine Kinase 23 U/L (26-192) Troponin I Quantitative < 0.017 ng/mL (0.000-0.055) Total Protein 6.0 g/dL (6.4-8.2) Albumin 3.0 g/dL (3.4-5.0) Albumin/Globulin Ratio 1.0 (1.0-1.7) Lactic Acid Level 2.6 mmol/L (0.4-2.0) 2.3 mmol/L (0.4-2.0) Glucose (Fingerstick) 248 mg/dL (70-99) Test 11/01/19 20:46 11/02/19 04:45 11/02/19 07:47 Glucose (Fingerstick) 165 mg/dL (70-99) 203 mg/dL (70-99) White Blood Count 74.2 x10^3/uL (4.0-11.0) Red Blood Count 2.33 x10^6/uL (3.50-5.40) Hemoglobin 6.6 g/dL (12.0-15.5) Hematocrit 21.3 % (36.0-47.0) Mean Corpuscular Volume 91 fL (79-100) Mean Corpuscular Hemoglobin 28 pg (25-35) Mean Corpuscular Hemoglobin Concent 31 g/dL (31-37) Red Cell Distribution Width 15.7 % (11.5-14.5) Platelet Count 450 x10^3/uL (140-400) Neutrophils (%) (Auto) 85 % (31-73) Lymphocytes (%) (Auto) 12 % (24-48) Monocytes (%) (Auto) 3 % (0-9) Eosinophils (%) (Auto) 0 % (0-3) Basophils (%) (Auto) 0 % (0-3) Neutrophils # (Auto) 62.9 x10^3/uL (1.8-7.7) Lymphocytes # (Auto) 8.5 x10^3/uL (1.0-4.8) Monocytes # (Auto) 2.3 x10^3/uL (0.0-1.1) Eosinophils # (Auto) 0.3 x10^3/uL (0.0-0.7) Basophils # (Auto) 0.2 x10^3/uL (0.0-0.2) Sodium Level 137 mmol/L (136-145) Potassium Level 4.2 mmol/L (3.5-5.1) Chloride Level 103 mmol/L (98-107) Carbon Dioxide Level 28 mmol/L (21-32) Anion Gap 6 (6-14) Blood Urea Nitrogen 29 mg/dL (7-20) Creatinine 0.9 mg/dL (0.6-1.0) Estimated GFR (Cockcroft-Gault) 67.1 Glucose Level 189 mg/dL (70-99) Calcium Level 7.5 mg/dL (8.5-10.1) Assessment and Plan Assessmemt and Plan Problems Medical Problems: (1) Abdominal hemorrhage Status: Acute (2) Generalized weakness Status: Acute (3) Lactic acidosis Status: Acute (4) Leukocytosis Status: Acute Comment Review of Relevant I have reviewed the following items mustapha (where applicable) has been applied. Labs Laboratory Tests Test 11/01/19 12:55 11/01/19 13:50 11/01/19 17:07 11/01/19 18:00 White Blood Count 81.2 x10^3/uL (4.0-11.0) Red Blood Count 3.14 x10^6/uL (3.50-5.40) Hemoglobin 9.1 g/dL (12.0-15.5) Hematocrit 28.3 % (36.0-47.0) Mean Corpuscular Volume 90 fL (79-100) Mean Corpuscular Hemoglobin 29 pg (25-35) Mean Corpuscular Hemoglobin Concent 32 g/dL (31-37) Red Cell Distribution Width 15.3 % (11.5-14.5) Platelet Count 527 x10^3/uL (140-400) Neutrophils (%) (Auto) 90 % (31-73) Lymphocytes (%) (Auto) 7 % (24-48) Monocytes (%) (Auto) 3 % (0-9) Eosinophils (%) (Auto) 0 % (0-3) Basophils (%) (Auto) 1 % (0-3) Neutrophils # (Auto) 72.9 x10^3/uL (1.8-7.7) Lymphocytes # (Auto) 5.5 x10^3/uL (1.0-4.8) Monocytes # (Auto) 2.0 x10^3/uL (0.0-1.1) Eosinophils # (Auto) 0.4 x10^3/uL (0.0-0.7) Basophils # (Auto) 0.4 x10^3/uL (0.0-0.2) Segmented Neutrophils % 61 % (35-66) Band Neutrophils % 11 % (0-9) Lymphocytes % 4 % (24-48) Monocytes % 2 % (0-10) Metamyelocytes % 6 % (0-0) Myelocytes % 15 % (0-0) Promyelocytes % 1 % (0-0) Platelet Estimate Increased (ADEQUATE) Large Platelets Few Giant Platelets Occ Polychromasia Slight Prothrombin Time 14.8 SEC (11.7-14.0) Prothromb Time International Ratio 1.2 (0.8-1.1) Activated Partial Thromboplast Time 34 SEC (24-38) Sodium Level 135 mmol/L (136-145) Potassium Level 4.2 mmol/L (3.5-5.1) Chloride Level 100 mmol/L (98-107) Carbon Dioxide Level 28 mmol/L (21-32) Anion Gap 7 (6-14) Blood Urea Nitrogen 31 mg/dL (7-20) Creatinine 1.0 mg/dL (0.6-1.0) Estimated GFR (Cockcroft-Gault) 59.4 BUN/Creatinine Ratio 31 (6-20) Glucose Level 364 mg/dL (70-99) Calcium Level 8.3 mg/dL (8.5-10.1) Magnesium Level 1.8 mg/dL (1.8-2.4) Total Bilirubin 0.5 mg/dL (0.2-1.0) Aspartate Amino Transf (AST/SGOT) 32 U/L (15-37) Alanine Aminotransferase (ALT/SGPT) 56 U/L (14-59) Alkaline Phosphatase 61 U/L (46-116) Creatine Kinase 23 U/L (26-192) Troponin I Quantitative < 0.017 ng/mL (0.000-0.055) Total Protein 6.0 g/dL (6.4-8.2) Albumin 3.0 g/dL (3.4-5.0) Albumin/Globulin Ratio 1.0 (1.0-1.7) Lactic Acid Level 2.6 mmol/L (0.4-2.0) 2.3 mmol/L (0.4-2.0) Glucose (Fingerstick) 248 mg/dL (70-99) Test 11/01/19 20:46 11/02/19 04:45 11/02/19 07:47 Glucose (Fingerstick) 165 mg/dL (70-99) 203 mg/dL (70-99) White Blood Count 74.2 x10^3/uL (4.0-11.0) Red Blood Count 2.33 x10^6/uL (3.50-5.40) Hemoglobin 6.6 g/dL (12.0-15.5) Hematocrit 21.3 % (36.0-47.0) Mean Corpuscular Volume 91 fL (79-100) Mean Corpuscular Hemoglobin 28 pg (25-35) Mean Corpuscular Hemoglobin Concent 31 g/dL (31-37) Red Cell Distribution Width 15.7 % (11.5-14.5) Platelet Count 450 x10^3/uL (140-400) Neutrophils (%) (Auto) 85 % (31-73) Lymphocytes (%) (Auto) 12 % (24-48) Monocytes (%) (Auto) 3 % (0-9) Eosinophils (%) (Auto) 0 % (0-3) Basophils (%) (Auto) 0 % (0-3) Neutrophils # (Auto) 62.9 x10^3/uL (1.8-7.7) Lymphocytes # (Auto) 8.5 x10^3/uL (1.0-4.8) Monocytes # (Auto) 2.3 x10^3/uL (0.0-1.1) Eosinophils # (Auto) 0.3 x10^3/uL (0.0-0.7) Basophils # (Auto) 0.2 x10^3/uL (0.0-0.2) Sodium Level 137 mmol/L (136-145) Potassium Level 4.2 mmol/L (3.5-5.1) Chloride Level 103 mmol/L (98-107) Carbon Dioxide Level 28 mmol/L (21-32) Anion Gap 6 (6-14) Blood Urea Nitrogen 29 mg/dL (7-20) Creatinine 0.9 mg/dL (0.6-1.0) Estimated GFR (Cockcroft-Gault) 67.1 Glucose Level 189 mg/dL (70-99) Calcium Level 7.5 mg/dL (8.5-10.1) Laboratory Tests Test 11/01/19 12:55 11/01/19 13:50 11/01/19 17:07 11/01/19 18:00 White Blood Count 81.2 x10^3/uL (4.0-11.0) Red Blood Count 3.14 x10^6/uL (3.50-5.40) Hemoglobin 9.1 g/dL (12.0-15.5) Hematocrit 28.3 % (36.0-47.0) Mean Corpuscular Volume 90 fL (79-100) Mean Corpuscular Hemoglobin 29 pg (25-35) Mean Corpuscular Hemoglobin Concent 32 g/dL (31-37) Red Cell Distribution Width 15.3 % (11.5-14.5) Platelet Count 527 x10^3/uL (140-400) Neutrophils (%) (Auto) 90 % (31-73) Lymphocytes (%) (Auto) 7 % (24-48) Monocytes (%) (Auto) 3 % (0-9) Eosinophils (%) (Auto) 0 % (0-3) Basophils (%) (Auto) 1 % (0-3) Neutrophils # (Auto) 72.9 x10^3/uL (1.8-7.7) Lymphocytes # (Auto) 5.5 x10^3/uL (1.0-4.8) Monocytes # (Auto) 2.0 x10^3/uL (0.0-1.1) Eosinophils # (Auto) 0.4 x10^3/uL (0.0-0.7) Basophils # (Auto) 0.4 x10^3/uL (0.0-0.2) Segmented Neutrophils % 61 % (35-66) Band Neutrophils % 11 % (0-9) Lymphocytes % 4 % (24-48) Monocytes % 2 % (0-10) Metamyelocytes % 6 % (0-0) Myelocytes % 15 % (0-0) Promyelocytes % 1 % (0-0) Platelet Estimate Increased (ADEQUATE) Large Platelets Few Giant Platelets Occ Polychromasia Slight Prothrombin Time 14.8 SEC (11.7-14.0) Prothromb Time International Ratio 1.2 (0.8-1.1) Activated Partial Thromboplast Time 34 SEC (24-38) Sodium Level 135 mmol/L (136-145) Potassium Level 4.2 mmol/L (3.5-5.1) Chloride Level 100 mmol/L (98-107) Carbon Dioxide Level 28 mmol/L (21-32) Anion Gap 7 (6-14) Blood Urea Nitrogen 31 mg/dL (7-20) Creatinine 1.0 mg/dL (0.6-1.0) Estimated GFR (Cockcroft-Gault) 59.4 BUN/Creatinine Ratio 31 (6-20) Glucose Level 364 mg/dL (70-99) Calcium Level 8.3 mg/dL (8.5-10.1) Magnesium Level 1.8 mg/dL (1.8-2.4) Total Bilirubin 0.5 mg/dL (0.2-1.0) Aspartate Amino Transf (AST/SGOT) 32 U/L (15-37) Alanine Aminotransferase (ALT/SGPT) 56 U/L (14-59) Alkaline Phosphatase 61 U/L (46-116) Creatine Kinase 23 U/L (26-192) Troponin I Quantitative < 0.017 ng/mL (0.000-0.055) Total Protein 6.0 g/dL (6.4-8.2) Albumin 3.0 g/dL (3.4-5.0) Albumin/Globulin Ratio 1.0 (1.0-1.7) Lactic Acid Level 2.6 mmol/L (0.4-2.0) 2.3 mmol/L (0.4-2.0) Glucose (Fingerstick) 248 mg/dL (70-99) Test 11/01/19 20:46 11/02/19 04:45 11/02/19 07:47 Glucose (Fingerstick) 165 mg/dL (70-99) 203 mg/dL (70-99) White Blood Count 74.2 x10^3/uL (4.0-11.0) Red Blood Count 2.33 x10^6/uL (3.50-5.40) Hemoglobin 6.6 g/dL (12.0-15.5) Hematocrit 21.3 % (36.0-47.0) Mean Corpuscular Volume 91 fL (79-100) Mean Corpuscular Hemoglobin 28 pg (25-35) Mean Corpuscular Hemoglobin Concent 31 g/dL (31-37) Red Cell Distribution Width 15.7 % (11.5-14.5) Platelet Count 450 x10^3/uL (140-400) Neutrophils (%) (Auto) 85 % (31-73) Lymphocytes (%) (Auto) 12 % (24-48) Monocytes (%) (Auto) 3 % (0-9) Eosinophils (%) (Auto) 0 % (0-3) Basophils (%) (Auto) 0 % (0-3) Neutrophils # (Auto) 62.9 x10^3/uL (1.8-7.7) Lymphocytes # (Auto) 8.5 x10^3/uL (1.0-4.8) Monocytes # (Auto) 2.3 x10^3/uL (0.0-1.1) Eosinophils # (Auto) 0.3 x10^3/uL (0.0-0.7) Basophils # (Auto) 0.2 x10^3/uL (0.0-0.2) Sodium Level 137 mmol/L (136-145) Potassium Level 4.2 mmol/L (3.5-5.1) Chloride Level 103 mmol/L (98-107) Carbon Dioxide Level 28 mmol/L (21-32) Anion Gap 6 (6-14) Blood Urea Nitrogen 29 mg/dL (7-20) Creatinine 0.9 mg/dL (0.6-1.0) Estimated GFR (Cockcroft-Gault) 67.1 Glucose Level 189 mg/dL (70-99) Calcium Level 7.5 mg/dL (8.5-10.1) Medications Current Medications Sodium Chloride 500 ml @ 500 mls/hr 1X ONCE IV Last administered on 11/01/19at 13:00; Start 11/01/19 at 13:00; Stop 11/01/19 at 13:59; Status DC Ondansetron HCl (Zofran) 4 mg 1X ONCE IV Last administered on 11/01/19at 13:26; Start 11/01/19 at 13:00; Stop 11/01/19 at 13:13; Status DC Hydromorphone HCl (Dilaudid) 0.5 mg 1X STAT IVP Last administered on 11/01/19at 13:26; Start 11/01/19 at 12:59; Stop 11/01/19 at 13:13; Status DC Iohexol (Omnipaque 300 Mg/ml) 75 ml 1X ONCE IV Last administered on 11/01/19at 14:08; Start 11/01/19 at 13:45; Stop 11/01/19 at 13:46; Status DC Info (CONTRAST GIVEN -- Rx MONITORING) 1 each PRN DAILY PRN MC SEE COMMENTS; Start 11/01/19 at 14:00; Stop 11/03/19 at 13:59 Hydromorphone HCl (Dilaudid) 0.5 mg 1X STAT IVP Last administered on 11/01/19at 16:53; Start 11/01/19 at 16:21; Stop 11/01/19 at 16:23; Status DC Sodium Chloride 1,000 ml @ 1,000 mls/hr 1X ONCE IV Last administered on 11/01 16:30; Start 11/01/19 at 16:30; Stop 11/01/19 at 17:29; Status DC Sodium Chloride 500 ml @ 500 mls/hr 1X ONCE IV Last administered on 11/01/19at 16:30; Start 11/01/19 at 16:30; Stop 11/01/19 at 17:29; Status DC Albuterol Sulfate (Ventolin Neb Soln) 2.5 mg PRN Q6HRS PRN INH SHORTNESS OF BREATH; Start 11/01/19 at 16:30 Alprazolam (Xanax) 0.25 mg PRN TID PRN PO anxiety; Start 11/01/19 at 16:30; Stop 11/01/19 at 17:11; Status DC Amlodipine Besylate (Norvasc) 5 mg DAILY PO ; Start 11/02/19 at 09:00 Cyclosporine (Restasis) 1 drop BID OU Last administered on 11/01/19at 20:41; Start 11/01/19 at 21:00 Fluticasone Propionate (Flonase) 2 spray DAILY NS ; Start 11/02/19 at 09:00 Lactobacillus Rhamnosus (Culturelle) 1 cap BID PO Last administered on 11/01/19at 20:41; Start 11/01/19 at 21:00 Lidocaine (Lidoderm) 1 patch DAILY TP ; Start 11/02/19 at 09:00; Stop 11/01/19 at 20:34; Status DC Metoprolol Succinate (Toprol Xl) 100 mg HS PO Last administered on 11/01/19at 20:41; Start 11/01/19 at 21:00 Nystatin (Nystop) 1 raza BID TP Last administered on 11/01/19 20:40; Start 11/01/19 at 21:00 Pantoprazole Sodium (Protonix) 40 mg DAILYAC PO Last administered on 11/02/19at 07:50; Start 11/02/19 at 07:30 Senna/Docusate Sodium (Senna Plus) 1 tab BID PO Last administered on 11/01/19at 20:40; Start 11/01/19 at 21:00 Sucralfate (Carafate) 1 gm TIDAC PO Last administered on 11/02/19at 07:30; Start 11/01/19 at 17:30 Tramadol HCl (Ultram) 50 mg PRN Q8HRS PRN PO PAIN; Start 11/01/19 at 16:30; Stop 11/01/19 at 19:43; Status DC Insulin Glargine (Lantus Syringe) 30 unit QHS SQ Last administered on 11/01/19at 20:42; Start 11/01/19 at 21:00 Ondansetron HCl (Zofran Odt) 8 mg PRN Q8HRS PRN PO NAUSEA/VOMITING Last administered on 11/02/19 07:48; Start 11/01/19 at 17:15 Polyethylene Glycol (miraLAX PACKET) 17 gm PRN DAILY PRN PO CONSTIPATION; Start 11/01/19 at 17:11 Atorvastatin Calcium (Lipitor) 80 mg QHS PO Last administered on 11/01/19at 20:41; Start 11/01/19 at 21:00 Insulin Human Lispro (HumaLOG) 0-9 UNITS TIDAC SQ Last administered on 11/01/19at 18:21; Start 11/01/19 at 16:30 Dextrose (Dextrose 50%-Water Syringe) 12.5 gm PRN Q15MIN PRN IV SEE COMMENTS; Start 11/01/19 at 16:30 Ondansetron HCl (Zofran) 4 mg PRN Q8HRS PRN IV NAUSEA/VOMITING; Start 11/01/19 at 16:30; Stop 11/02/19 at 16:29 Alprazolam (Xanax) 0.25 mg PRN TID PRN PO anxiety Last administered on 11/02 07:48; Start 11/01/19 at 17:11 Miscellaneous (Lidoderm Patch Removal) 1 ea QHS MC ; Start 11/01/19 at 21:00; Stop 11/01/19 at 20:34; Status DC Ceftriaxone Sodium (Rocephin) 1 gm QHS IVP Last administered on 11/01/19at 18:45; Start 11/01/19 at 18:45 Tramadol HCl (Ultram) 50 mg PRN Q8HRS PRN PO PAIN; Start 11/01/19 at 19:45 Hydromorphone HCl (Dilaudid) 1 mg PRN Q4HRS PRN IV PAIN Last administered on 11/02/19at 04:23; Start 11/01/19 at 20:15 Lidocaine (Lidoderm) 1 patch QHS TP Last administered on 11/01/19at 20:40; Start 11/01/19 at 21:00 Miscellaneous (Lidoderm Patch Removal) 1 ea DAILY MC ; Start 11/02/19 at 09:00 Albumin Human 500 ml @ 125 mls/hr 1X ONCE IV ; Start 11/02/19 at 02:00; Stop 11/02/19 at 05:59; Status Cancel Acetaminophen (Tylenol) 650 mg 1X PRN PRN PO PRE-TRANSFUSION; Start 11/02/19 at 06:45 Diphenhydramine HCl (Benadryl Oral Elixir) 12.5 mg 1X PRN PRN PO PRE- TRANSFUSION; Start 11/02/19 at 06:45 Diphenhydramine HCl (Benadryl) 25 mg PRN 1X PRN PO PRE-TRANSFUSION; Start 11/02/19 at 06:45 Active Scripts Active Enoxaparin Sodium 120 Mg/0.8 Ml Disp.syrin 120 Mg SQ Q12HR 28 Days Dexamethasone 4 Mg Tablet 4 Mg PO BID 14 Days Culturelle (Lactobacillus Rhamnosus Gg) 1 Each Cap.sprink 1 Cap PO BID 30 Days Amlodipine Besylate 5 Mg Tablet 5 Mg PO DAILY 30 Days Cefdinir 300 Mg Capsule 300 Mg PO BID 10 Days Reported Cymbalta (Duloxetine Hcl) 60 Mg Capsule.dr 1 Cap PO BID Lyrica (Pregabalin) 150 Mg Capsule 1 Cap PO BID Novolog (Insulin Aspart) 100 Unit/1 Ml Cartridge 10-45 Unit SQ QIDACHS Levemir (Insulin Detemir) 100 Unit/1 Ml Vial 30 Unit SQ HS Linzess (Linaclotide) 145 Mcg Capsule 145 Mcg PO PRN PRN Crestor (Rosuvastatin Calcium) 40 Mg Tablet 0.5 Tab PO DAILY Polyethylene Glycol 3350 2,500 Gm Powder 17 Gm PO PRN PRN Xanax (Alprazolam) 1 Mg Tablet 1 Tab PO TID Restasis (Cyclosporine) 1 Each Droperette 1 Drop EACHEYE BID Proair Hfa Inhaler (Albuterol Sulfate) 8.5 Gm Hfa.aer.ad 1 Puff INH PRN Q6HRS PRN Tramadol Hcl 50 Mg Tablet 1 Tab PO PRN Q8HRS PRN Ondansetron Hcl 4 Mg Tablet 2 Tab PO PRN Q8HRS PRN Nystatin 15 Gm Powder 1 Raza TP BID Lidocaine PATCH (Lidocaine) 1 Each Adh..patch 1 Each TP DAILY Fluticasone Propionate Nasal Rodanthe (Fluticasone Propionate) 16 Gm Rodanthe.susp 2 Rodanthe NS DAILY Percocet 5-325 Mg Tablet (Oxycodone/Acetaminophen) 1 Each Tablet 1-2 Tab PO Q4-6HRS PRN LAST DOSE AT NEXT DOSE Senna-Docusate Sodium Tablet (Sennosides/Docusate Sodium) 1 Each Tablet 1 Each PO BID LAST DOSE THIS AM NEXT DOSE TONIGHT Robaxin-750 (Methocarbamol) 750 Mg Tablet 1 Tab PO TID LAST DOSE AT 1400 (2PM) MAY HAVE THE NEXT DOSE AT 10 PM Protonix (Pantoprazole Sodium) 40 Mg Tablet.dr 40 Mg PO DAILY LST DOSE THIS AM NEXT DOSE TOMORROW AM Carafate (Sucralfate) 1 Gm Tablet 1 Tab PO TID Meds not given this hospital admission. May resume home medications as approved by Physician. MAY TAKE WHEN AVAILABLE Xarelto (Rivaroxaban) 15 Mg Tablet 15 Mg PO DAILY Meds not given this hospital admission. May resume home medications as approved by Physician. MAY RESUME WHEN AVAILABLE Metoprolol Succinate ( Xl ) (Metoprolol Succinate) 100 Mg Tab.er.24h 100 Mg PO HS LAST DOSE THIS AM NEXT DOSE TOMORROW AM Vitals/I & O Vital Sign - Last 24 Hours 11/01/19 11/01/19 11/01/19 11/01/19 12:37 13:06 13:26 13:36 Temp 98.3 98.3 Pulse 108 108 106 Resp 18 20 18 21 B/P (MAP) 99/63 (75) 91/71 (78) 96/77 (83) Pulse Ox 99 99 96 98 O2 Delivery Room Air Room Air Room Air Room Air 11/01/19 11/01/19 11/01/19 12/12/19 14:36 15:36 16:36 16:53 Pulse 106 114 110 Resp 22 19 17 18 B/P (MAP) 99/71 (80) 126/73 (90) 121/75 (90) Pulse Ox 98 96 100 95 O2 Delivery Room Air Room Air Room Air Room Air 11/01/19 11/01/19 11/01/19 11/01/19 17:30 18:00 18:00 18:05 Temp 98.9 98.9 Pulse 110 101 110 Resp 16 16 18 B/P (MAP) 104/78 (87) 99/75 (83) 103/70 (81) Pulse Ox 100 100 99 O2 Delivery Room Air Room Air Room Air Room Air 11/01/19 11/01/19 11/01/19 11/01/19 19:00 20:00 20:00 20:41 Temp 98.0 98.0 Pulse 99 100 99 Resp 20 20 B/P (MAP) 96/64 (75) 111/61 (78) 96/64 Pulse Ox 100 100 O2 Delivery Room Air Nasal Cannula Room Air O2 Flow Rate 2.0 11/01/19 11/01/19 11/01/19 11/01/19 20:42 21:00 22:00 23:00 Pulse 99 99 99 Resp 20 20 20 B/P (MAP) 88/40 (56) 94/59 (71) 103/68 (80) Pulse Ox 100 100 100 100 O2 Delivery Room Air Room Air Room Air Room Air 11/01/19 11/01/19 11/02/19 11/02/19 23:59 23:59 01:00 02:00 Pulse 100 100 101 Resp 23 23 28 B/P (MAP) 105/72 (83) 103/68 (80) 96/69 (78) Pulse Ox 100 93 96 O2 Delivery Room Air Room Air Room Air Room Air 11/02/19 11/02/19 11/02/19 11/02/19 03:00 04:00 04:00 04:23 Pulse 98 98 Resp 28 28 B/P (MAP) 97/72 (80) 94/63 (73) Pulse Ox 96 96 96 O2 Delivery Room Air Room Air Room Air Room Air O2 Flow Rate 2.0 11/02/19 11/02/19 11/02/19 11/02/19 05:00 05:20 06:02 07:00 Pulse 91 91 91 Resp 28 28 24 B/P (MAP) 97/68 (78) 97/68 (78) 94/66 (75) Pulse Ox 96 96 96 98 O2 Delivery Room Air Room Air Room Air Room Air O2 Flow Rate 2.0 Intake and Output 11/01/19 11/01/19 11/02/19 15:00 23:00 07:00 Intake Total 1000 ml 100 ml 0 ml Output Total 0 ml 0 ml Balance 1000 ml 100 ml 0 ml DEVEN [email or web address] MD Nov 02, 2019 08:26
--- NOTE | 2019-11-02 08:38 | PDOC2 ---
CONSULT Date of Consult Date of Consult DATE: 11/02/19 TIME: 08:26 Reason for consultation: Leukocytosis Consult: Hematology oncology, Dr. Enedelia Yousif History of present illness: She is a 49-year-old female who had been admitted recently with some mental status changes and a brain mass, mental status changes thought due to meds taken at home, given steroids, and planned for resection of meningioma this tuesday after treatment for pneumonia noted at last admit, had what we thought was a leukemoid reaction with white blood cells up to the 30,000 range on steroids but unfortunately they've risen to 80,000 and now there is a concern that this may be a leukemia or lymphoma process causing her brain mass and leukocytosis, associated with weight loss. Having abdominal pain, acute, severe, worsened due to Lovenox (was to be on indefinite anticoagulation for history of thrombosis) and active bleeding with hematoma, has improved a little bit with ice pack and since blood thinners have stopped, and she's in the ICU, her leg almost gave out on her yesterday and she was having some presyncope. Past medical history: Anxiety, depression Coronary artery disease Diabetes mellitus 2 Hyperlipidemia Hypertension Kidney stones Ovarian cyst Recent pneumonia History of pulmonary embolism Assessment Peripheral neuropathy Peptic ulcer disease Low back pain Past surgical history: Appendectomy Cholecystectomy section Hysterectomy Allergies: Azithromycin, codeine, morphine Medications: See attached list Social history: Occasional alcohol, no tobacco Family history: Coronary artery disease and hypertension and ovarian and liver cancer Review of systems: Numbness and tingling, back pain, headache, abdominal pain, anxiety with health, weight loss, hematoma on the abdomen, fatigue, slight confusion, left leg weakness, joint pains, otherwise 10 point review of systems negative. Physical exam: Vitals reviewed Gen.: Obese female, easily tearful, resting in bed HEENT: mucous membranes moist, head normocephalic atraumatic Neck: Supple, no lymphadenopathy Lymph nodes: No palpable lymphadenopathy neck or axilla on limited exam Lungs: Breathing comfortably w/o respiratory distress Heart: Regular rate and rhythm Abdomen: Soft, obese, tenderness over hematoma which is large and demarcated, some firm hematoma in the Center, has been decreasing a bit since blood thinners stopped Extremities: No cyanosis or edema Skin: No obvious rashes or skin breakdown other than significant bruising mainly over her abdomen Neuro: Alert and oriented 3 Psych: depressed mood and pleasant affect Lab reviewed: White blood cells 74,000, hemoglobin 6.6, platelets of 450, MCV of 91, early cells noted on manual differential INR 1.2 PTT of 34 Creatinine is 0.9 Rads reviewed: Chest x-ray with patchy right basilar opacity, most likely atelectasis, unchanged Abdominal pelvic CT 01 November 2019 showed large complex collection right subcutaneous flank consistent with massive hematoma including component of active hemorrhage, left renal lesion most consistent with a cyst Case discussed with: Patient, her nurse, admitting physician, and records reviewed in [facility] including labs and radiology, please see note for summary details. 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 with a recently noted brain mass that was thought to be meningioma pending resection however unfortunately she has had weight loss and increasing leukocytosis with early cells on her smear concerning for hematologic process such as high-grade leukemia or lymphoma with potentially [employer] SPECIALIST involvement Leukocytosis: Bone marrow biopsy today Hematoma: Improving a bit as anticoagulation has stopped Anemia: We'll check iron labs and she is getting 2 units today, but due to hemorrhage from this hematoma that has seemed to improve a bit after stopping a nticoagulation though we'll keep a close eye on CBCs Brain mass: Hematologic? Await bone marrow biopsy Thank you kindly for this consultation, will follow, on-call physician is available over the weekend but please don't hesitate to call with any questions. Past Medical History Cardiovascular: HTN, Hyperlipidemia, Other Pulmonary: Asthma, Pulmonary embolus, Other CENTRAL NERVOUS SYSTEM: Periperal neuropathy, Other GI: Peptic Ulcer disease, Other Heme/Onc: No pertinent hx Hepatobiliary: No pertinent hx Psych: Anxiety, Depression, Other Musculoskeletal: low back pain Rheumatologic: No pertinent hx Infectious disease: No pertinent hx Renal/: Other Endocrine: Diabetes Past Surgical History Past Surgical History: Appendectomy, Cholecystectomy, , Hysterectomy, Other Family History Family History: Coronary Artery Disease, Hypertension Social History No ALCOHOL: occassional Drugs: None Lives: with Family Current Problem List Problem List Problems Medical Problems: (1) Abdominal hemorrhage Status: Acute (2) Generalized weakness Status: Acute (3) Lactic acidosis Status: Acute (4) Leukocytosis Status: Acute Current Medications Current Medications Current Medications Sodium Chloride 500 ml @ 500 mls/hr 1X ONCE IV Last administered on 11/01/19at 13:00; Start 11/01/19 at 13:00; Stop 11/01/19 at 13:59; Status DC Ondansetron HCl (Zofran) 4 mg 1X ONCE IV Last administered on 11/01/19at 13:26; Start 11/01/19 at 13:00; Stop 11/01/19 at 13:13; Status DC Hydromorphone HCl (Dilaudid) 0.5 mg 1X STAT IVP Last administered on 11/01at 13:26; Start 11/01/19 at 12:59; Stop 11/01/19 at 13:13; Status DC Iohexol (Omnipaque 300 Mg/ml) 75 ml 1X ONCE IV Last administered on 11/01/19at 14:08; Start 11/01/19 at 13:45; Stop 11/01/19 at 13:46; Status DC Info (CONTRAST GIVEN -- Rx MONITORING) 1 each PRN DAILY PRN MC SEE COMMENTS; Start 11/01/19 at 14:00; Stop 11/03/19 at 13:59 Hydromorphone HCl (Dilaudid) 0.5 mg 1X STAT IVP Last administered on 11/01/19at 16:53; Start 11/01/19 at 16:21; Stop 11/01/19 at 16:23; Status DC Sodium Chloride 1,000 ml @ 1,000 mls/hr 1X ONCE IV Last administered on 11/01/19at 16:30; Start 11/01/19 at 16:30; Stop 11/01/19 at 17:29; Status DC Sodium Chloride 500 ml @ 500 mls/hr 1X ONCE IV Last administered on 11/01/19at 16:30; Start 11/01/19 at 16:30; Stop 11/01/19 at 17:29; Status DC Albuterol Sulfate (Ventolin Neb Soln) 2.5 mg PRN Q6HRS PRN INH SHORTNESS OF BREATH; Start 11/01/19 at 16:30 Alprazolam (Xanax) 0.25 mg PRN TID PRN PO anxiety; Start 11/01/19 at 16:30; Stop 11/01/19 at 17:11; Status DC Amlodipine Besylate (Norvasc) 5 mg DAILY PO ; Start 11/02/19 at 09:00 Cyclosporine (Restasis) 1 drop BID OU Last administered on 11/01/19 20:41; Start 11/01/19 at 21:00 Fluticasone Propionate (Flonase) 2 spray DAILY NS ; Start 11/02/19 at 09:00 Lactobacillus Rhamnosus (Culturelle) 1 cap BID PO Last administered on 11/01/19 20:41; Start 11/01/19 at 21:00 Lidocaine (Lidoderm) 1 patch DAILY TP ; Start 11/02/19 at 09:00; Stop 11/01/19 at 20:34; Status DC Metoprolol Succinate (Toprol Xl) 100 mg HS PO Last administered on 11/01/19 20:41; Start 11/01/19 at 21:00 Nystatin (Nystop) 1 raza BID TP Last administered on 11/01/19 20:40; Start 11/01/19 at 21:00 Pantoprazole Sodium (Protonix) 40 mg DAILYAC PO Last administered on 11/02/19 07:50; Start 11/02/19 at 07:30 Senna/Docusate Sodium (Senna Plus) 1 tab BID PO Last administered on 11/01/19 20:40; Start 11/01/19 at 21:00 Sucralfate (Carafate) 1 gm TIDAC PO Last administered on 11/02/19 07:30; Start 11/01/19 at 17:30 Tramadol HCl (Ultram) 50 mg PRN Q8HRS PRN PO PAIN; Start 11/01/19 at 16:30; Stop 11/01/19 at 19:43; Status DC Insulin Glargine (Lantus Syringe) 30 unit QHS SQ Last administered on 11/01/19 20:42; Start 11/01/19 at 21:00 Ondansetron HCl (Zofran Odt) 8 mg PRN Q8HRS PRN PO NAUSEA/VOMITING Last administered on 11/02/19 07:48; Start 11/01/19 at 17:15 Polyethylene Glycol (miraLAX PACKET) 17 gm PRN DAILY PRN PO CONSTIPATION; Start 11/01/19 at 17:11 Atorvastatin Calcium (Lipitor) 80 mg QHS PO Last administered on 11/01/19 20:41; Start 11/01/19 at 21:00 Insulin Human Lispro (HumaLOG) 0-9 UNITS TIDAC SQ Last administered on 11/01/19at 18:21; Start 11/01/19 at 16:30 Dextrose (Dextrose 50%-Water Syringe) 12.5 gm PRN Q15MIN PRN IV SEE COMMENTS; Start 11/01/19 at 16:30 Ondansetron HCl (Zofran) 4 mg PRN Q8HRS PRN IV NAUSEA/VOMITING; Start 11/01/19 at 16:30; Stop 11/02/19 at 16:29 Alprazolam (Xanax) 0.25 mg PRN TID PRN PO anxiety Last administered on 11/02/19at 07:48; Start 11/01/19 at 17:11 Miscellaneous (Lidoderm Patch Removal) 1 ea QHS MC ; Start 11/01/19 at 21:00; Stop 11/01/19 at 20:34; Status DC Ceftriaxone Sodium (Rocephin) 1 gm QHS IVP Last administered on 11/01/19at 18:45; Start 11/01/19 at 18:45 Tramadol HCl (Ultram) 50 mg PRN Q8HRS PRN PO PAIN; Start 11/01/19 at 19:45 Hydromorphone HCl (Dilaudid) 1 mg PRN Q4HRS PRN IV PAIN Last administered on 11/02/19at 04:23; Start 11/01/19 at 20:15 Lidocaine (Lidoderm) 1 patch QHS TP Last administered on 11/01/19at 20:40; Start 11/01/19 at 21:00 Miscellaneous (Lidoderm Patch Removal) 1 ea DAILY MC ; Start 11/02/19 at 09:00 Albumin Human 500 ml @ 125 mls/hr 1X ONCE IV ; Start 11/02/19 at 02:00; Stop 11/02/19 at 05:59; Status Cancel Acetaminophen (Tylenol) 650 mg 1X PRN PRN PO PRE-TRANSFUSION; Start 11/02/19 at 06:45 Diphenhydramine HCl (Benadryl Oral Elixir) 12.5 mg 1X PRN PRN PO PRE- TRANSFUSION; Start 11/02/19 at 06:45 Diphenhydramine HCl (Benadryl) 25 mg PRN 1X PRN PO PRE-TRANSFUSION; Start 11/02/19 at 06:45 Active Scripts Active Enoxaparin Sodium 120 Mg/0.8 Ml Disp.syrin 120 Mg SQ Q12HR 28 Days Dexamethasone 4 Mg Tablet 4 Mg PO BID 14 Days Culturelle (Lactobacillus Rhamnosus Gg) 1 Each Cap.sprink 1 Cap PO BID 30 Days Amlodipine Besylate 5 Mg Tablet 5 Mg PO DAILY 30 Days Cefdinir 300 Mg Capsule 300 Mg PO BID 10 Days Reported Cymbalta (Duloxetine Hcl) 60 Mg Capsule.dr 1 Cap PO BID Lyrica (Pregabalin) 150 Mg Capsule 1 Cap PO BID Novolog (Insulin Aspart) 100 Unit/1 Ml Cartridge 10-45 Unit SQ QIDACHS Levemir (Insulin Detemir) 100 Unit/1 Ml Vial 30 Unit SQ HS Linzess (Linaclotide) 145 Mcg Capsule 145 Mcg PO PRN PRN Crestor (Rosuvastatin Calcium) 40 Mg Tablet 0.5 Tab PO DAILY Polyethylene Glycol 3350 2,500 Gm Powder 17 Gm PO PRN PRN Xanax (Alprazolam) 1 Mg Tablet 1 Tab PO TID Restasis (Cyclosporine) 1 Each Droperette 1 Drop EACHEYE BID Proair Hfa Inhaler (Albuterol Sulfate) 8.5 Gm Hfa.aer.ad 1 Puff INH PRN Q6HRS PRN Tramadol Hcl 50 Mg Tablet 1 Tab PO PRN Q8HRS PRN Ondansetron Hcl 4 Mg Tablet 2 Tab PO PRN Q8HRS PRN Nystatin 15 Gm Powder 1 Raza TP BID Lidocaine PATCH (Lidocaine) 1 Each Adh..patch 1 Each TP DAILY Fluticasone Propionate Nasal [place] (Fluticasone Propionate) 16 Gm [place].susp 2 [place] NS DAILY Percocet 5-325 Mg Tablet (Oxycodone/Acetaminophen) 1 Each Tablet 1-2 Tab PO Q4-6HRS PRN LAST DOSE AT NEXT DOSE Senna-Docusate Sodium Tablet (Sennosides/Docusate Sodium) 1 Each Tablet 1 Each PO BID LAST DOSE THIS AM NEXT DOSE TONIGHT Robaxin-750 (Methocarbamol) 750 Mg Tablet 1 Tab PO TID LAST DOSE AT 1400 (2PM) MAY HAVE THE NEXT DOSE AT 10 PM Protonix (Pantoprazole Sodium) 40 Mg Tablet.dr 40 Mg PO DAILY LST DOSE THIS AM NEXT DOSE TOMORROW AM Carafate (Sucralfate) 1 Gm Tablet 1 Tab PO TID Meds not given this hospital admission. May resume home medications as approved by Physician. MAY TAKE WHEN AVAILABLE Xarelto (Rivaroxaban) 15 Mg Tablet 15 Mg PO DAILY Meds not given this hospital admission. May resume home medications as approved by Physician. MAY RESUME WHEN AVAILABLE Metoprolol Succinate ( Xl ) (Metoprolol Succinate) 100 Mg Tab.er.24h 100 Mg PO HS LAST DOSE THIS AM NEXT DOSE TOMORROW AM Allergies Allergies: Coded Allergies: azithromycin (Verified Allergy, Intermediate, 10/12/19) codeine (Verified Allergy, Intermediate, 05/06/17) morphine (Verified Allergy, Intermediate, 11/01/19) Tolerates hydromorphone and oxycodone Vitals VITALS Vital Signs Date Time Temp Pulse Resp B/P (MAP) Pulse Ox O2 Delivery O2 Flow Rate FiO2 11/02/19 07:00 91 24 94/66 (75) 98 Room Air 11/02/19 05:20 2.0 11/01/19 20:00 98.0 98.0 Labs Labs Laboratory Tests Test 11/01/19 12:55 11/01/19 13:50 11/01/19 17:07 11/01/19 18:00 White Blood Count 81.2 x10^3/uL (4.0-11.0) Red Blood Count 3.14 x10^6/uL (3.50-5.40) Hemoglobin 9.1 g/dL (12.0-15.5) Hematocrit 28.3 % (36.0-47.0) Mean Corpuscular Volume 90 fL (79-100) Mean Corpuscular Hemoglobin 29 pg (25-35) Mean Corpuscular Hemoglobin Concent 32 g/dL (31-37) Red Cell Distribution Width 15.3 % (11.5-14.5) Platelet Count 527 x10^3/uL (140-400) Neutrophils (%) (Auto) 90 % (31-73) Lymphocytes (%) (Auto) 7 % (24-48) Monocytes (%) (Auto) 3 % (0-9) Eosinophils (%) (Auto) 0 % (0-3) Basophils (%) (Auto) 1 % (0-3) Neutrophils # (Auto) 72.9 x10^3/uL (1.8-7.7) Lymphocytes # (Auto) 5.5 x10^3/uL (1.0-4.8) Monocytes # (Auto) 2.0 x10^3/uL (0.0-1.1) Eosinophils # (Auto) 0.4 x10^3/uL (0.0-0.7) Basophils # (Auto) 0.4 x10^3/uL (0.0-0.2) Segmented Neutrophils % 61 % (35-66) Band Neutrophils % 11 % (0-9) Lymphocytes % 4 % (24-48) Monocytes % 2 % (0-10) Metamyelocytes % 6 % (0-0) Myelocytes % 15 % (0-0) Promyelocytes % 1 % (0-0) Platelet Estimate Increased (ADEQUATE) Large Platelets Few Giant Platelets Occ Polychromasia Slight Prothrombin Time 14.8 SEC (11.7-14.0) Prothromb Time International Ratio 1.2 (0.8-1.1) Activated Partial Thromboplast Time 34 SEC (24-38) Sodium Level 135 mmol/L (136-145) Potassium Level 4.2 mmol/L (3.5-5.1) Chloride Level 100 mmol/L (98-107) Carbon Dioxide Level 28 mmol/L (21-32) Anion Gap 7 (6-14) Blood Urea Nitrogen 31 mg/dL (7-20) Creatinine 1.0 mg/dL (0.6-1.0) Estimated GFR (Cockcroft-Gault) 59.4 BUN/Creatinine Ratio 31 (6-20) Glucose Level 364 mg/dL (70-99) Calcium Level 8.3 mg/dL (8.5-10.1) Magnesium Level 1.8 mg/dL (1.8-2.4) Total Bilirubin 0.5 mg/dL (0.2-1.0) Aspartate Amino Transf (AST/SGOT) 32 U/L (15-37) Alanine Aminotransferase (ALT/SGPT) 56 U/L (14-59) Alkaline Phosphatase 61 U/L (46-116) Creatine Kinase 23 U/L (26-192) Troponin I Quantitative < 0.017 ng/mL (0.000-0.055) Total Protein 6.0 g/dL (6.4-8.2) Albumin 3.0 g/dL (3.4-5.0) Albumin/Globulin Ratio 1.0 (1.0-1.7) Lactic Acid Level 2.6 mmol/L (0.4-2.0) 2.3 mmol/L (0.4-2.0) Glucose (Fingerstick) 248 mg/dL (70-99) Test 11/01/19 20:46 11/02/19 04:45 11/02/19 07:47 Glucose (Fingerstick) 165 mg/dL (70-99) 203 mg/dL (70-99) White Blood Count 74.2 x10^3/uL (4.0-11.0) Red Blood Count 2.33 x10^6/uL (3.50-5.40) Hemoglobin 6.6 g/dL (12.0-15.5) Hematocrit 21.3 % (36.0-47.0) Mean Corpuscular Volume 91 fL (79-100) Mean Corpuscular Hemoglobin 28 pg (25-35) Mean Corpuscular Hemoglobin Concent 31 g/dL (31-37) Red Cell Distribution Width 15.7 % (11.5-14.5) Platelet Count 450 x10^3/uL (140-400) Neutrophils (%) (Auto) 85 % (31-73) Lymphocytes (%) (Auto) 12 % (24-48) Monocytes (%) (Auto) 3 % (0-9) Eosinophils (%) (Auto) 0 % (0-3) Basophils (%) (Auto) 0 % (0-3) Neutrophils # (Auto) 62.9 x10^3/uL (1.8-7.7) Lymphocytes # (Auto) 8.5 x10^3/uL (1.0-4.8) Monocytes # (Auto) 2.3 x10^3/uL (0.0-1.1) Eosinophils # (Auto) 0.3 x10^3/uL (0.0-0.7) Basophils # (Auto) 0.2 x10^3/uL (0.0-0.2) Sodium Level 137 mmol/L (136-145) Potassium Level 4.2 mmol/L (3.5-5.1) Chloride Level 103 mmol/L (98-107) Carbon Dioxide Level 28 mmol/L (21-32) Anion Gap 6 (6-14) Blood Urea Nitrogen 29 mg/dL (7-20) Creatinine 0.9 mg/dL (0.6-1.0) Estimated GFR (Cockcroft-Gault) 67.1 Glucose Level 189 mg/dL (70-99) Calcium Level 7.5 mg/dL (8.5-10.1) Laboratory Tests Test 11/01/19 12:55 11/01/19 13:50 11/01/19 17:07 11/01/19 18:00 White Blood Count 81.2 x10^3/uL (4.0-11.0) Red Blood Count 3.14 x10^6/uL (3.50-5.40) Hemoglobin 9.1 g/dL (12.0-15.5) Hematocrit 28.3 % (36.0-47.0) Mean Corpuscular Volume 90 fL (79-100) Mean Corpuscular Hemoglobin 29 pg (25-35) Mean Corpuscular Hemoglobin Concent 32 g/dL (31-37) Red Cell Distribution Width 15.3 % (11.5-14.5) Platelet Count 527 x10^3/uL (140-400) Neutrophils (%) (Auto) 90 % (31-73) Lymphocytes (%) (Auto) 7 % (24-48) Monocytes (%) (Auto) 3 % (0-9) Eosinophils (%) (Auto) 0 % (0-3) Basophils (%) (Auto) 1 % (0-3) Neutrophils # (Auto) 72.9 x10^3/uL (1.8-7.7) Lymphocytes # (Auto) 5.5 x10^3/uL (1.0-4.8) Monocytes # (Auto) 2.0 x10^3/uL (0.0-1.1) Eosinophils # (Auto) 0.4 x10^3/uL (0.0-0.7) Basophils # (Auto) 0.4 x10^3/uL (0.0-0.2) Segmented Neutrophils % 61 % (35-66) Band Neutrophils % 11 % (0-9) Lymphocytes % 4 % (24-48) Monocytes % 2 % (0-10) Metamyelocytes % 6 % (0-0) Myelocytes % 15 % (0-0) Promyelocytes % 1 % (0-0) Platelet Estimate Increased (ADEQUATE) Large Platelets Few Giant Platelets Occ Polychromasia Slight Prothrombin Time 14.8 SEC (11.7-14.0) Prothromb Time International Ratio 1.2 (0.8-1.1) Activated Partial Thromboplast Time 34 SEC (24-38) Sodium Level 135 mmol/L (136-145) Potassium Level 4.2 mmol/L (3.5-5.1) Chloride Level 100 mmol/L (98-107) Carbon Dioxide Level 28 mmol/L (21-32) Anion Gap 7 (6-14) Blood Urea Nitrogen 31 mg/dL (7-20) Creatinine 1.0 mg/dL (0.6-1.0) Estimated GFR (Cockcroft-Gault) 59.4 BUN/Creatinine Ratio 31 (6-20) Glucose Level 364 mg/dL (70-99) Calcium Level 8.3 mg/dL (8.5-10.1) Magnesium Level 1.8 mg/dL (1.8-2.4) Total Bilirubin 0.5 mg/dL (0.2-1.0) Aspartate Amino Transf (AST/SGOT) 32 U/L (15-37) Alanine Aminotransferase (ALT/SGPT) 56 U/L (14-59) Alkaline Phosphatase 61 U/L (46-116) Creatine Kinase 23 U/L (26-192) Troponin I Quantitative < 0.017 ng/mL (0.000-0.055) Total Protein 6.0 g/dL (6.4-8.2) Albumin 3.0 g/dL (3.4-5.0) Albumin/Globulin Ratio 1.0 (1.0-1.7) Lactic Acid Level 2.6 mmol/L (0.4-2.0) 2.3 mmol/L (0.4-2.0) Glucose (Fingerstick) 248 mg/dL (70-99) Test 11/01/19 20:46 11/02/19 04:45 11/02/19 07:47 Glucose (Fingerstick) 165 mg/dL (70-99) 203 mg/dL (70-99) White Blood Count 74.2 x10^3/uL (4.0-11.0) Red Blood Count 2.33 x10^6/uL (3.50-5.40) Hemoglobin 6.6 g/dL (12.0-15.5) Hematocrit 21.3 % (36.0-47.0) Mean Corpuscular Volume 91 fL (79-100) Mean Corpuscular Hemoglobin 28 pg (25-35) Mean Corpuscular Hemoglobin Concent 31 g/dL (31-37) Red Cell Distribution Width 15.7 % (11.5-14.5) Platelet Count 450 x10^3/uL (140-400) Neutrophils (%) (Auto) 85 % (31-73) Lymphocytes (%) (Auto) 12 % (24-48) Monocytes (%) (Auto) 3 % (0-9) Eosinophils (%) (Auto) 0 % (0-3) Basophils (%) (Auto) 0 % (0-3) Neutrophils # (Auto) 62.9 x10^3/uL (1.8-7.7) Lymphocytes # (Auto) 8.5 x10^3/uL (1.0-4.8) Monocytes # (Auto) 2.3 x10^3/uL (0.0-1.1) Eosinophils # (Auto) 0.3 x10^3/uL (0.0-0.7) Basophils # (Auto) 0.2 x10^3/uL (0.0-0.2) Sodium Level 137 mmol/L (136-145) Potassium Level 4.2 mmol/L (3.5-5.1) Chloride Level 103 mmol/L (98-107) Carbon Dioxide Level 28 mmol/L (21-32) Anion Gap 6 (6-14) Blood Urea Nitrogen 29 mg/dL (7-20) Creatinine 0.9 mg/dL (0.6-1.0) Estimated GFR (Cockcroft-Gault) 67.1 Glucose Level 189 mg/dL (70-99) Calcium Level 7.5 mg/dL (8.5-10.1) ENEDELIA YOUSIF MD Nov 02, 2019 08:38
[2019-11-02] MEDS: amLODIPine BESYLATE 5 MG TABLET PO SCH (09:00)
[2019-11-02] MEDS: PATCH REMOVAL. MC SCH (09:00)
[2019-11-02] MEDS ORDERED: LIDOCAINE (700MG/PATCH) PATCH. TP SCH (09:00)
--- NOTE | 2019-11-02 10:00 | PDOC2 ---
CONSULT Date of Consult Date of Consult DATE: 11/02/19 TIME: 09:55 Reason for Consult Reason for Consult: right flank hematoma Referring Physician Referring Physician: Dr. Penn Identification/Chief Complaint Chief Complaint right flank pain Source Source: Chart review, Patient History of Present Illness Reason for Visit: 49 yo F with right leg weakness and trauma to right flank. Has been on anticoagulants for hx of clotting. C/o right flank pain. Awake and appropriate currently. Past Medical History Cardiovascular: HTN, Hyperlipidemia, Other Pulmonary: Asthma, Pulmonary embolus, Other CENTRAL NERVOUS SYSTEM: Periperal neuropathy, Other GI: Peptic Ulcer disease, Other Heme/Onc: No pertinent hx Hepatobiliary: No pertinent hx Psych: Anxiety, Depression, Other Musculoskeletal: low back pain Rheumatologic: No pertinent hx Infectious disease: No pertinent hx Renal/: Other Endocrine: Diabetes Past Surgical History Past Surgical History: Appendectomy, Cholecystectomy, , Hysterectomy, Other Family History Family History: Coronary Artery Disease, Hypertension Social History No ALCOHOL: occassional Drugs: None Lives: with Family Current Problem List Problem List Problems Medical Problems: (1) Abdominal hemorrhage Status: Acute (2) Generalized weakness Status: Acute (3) Lactic acidosis Status: Acute (4) Leukocytosis Status: Acute Current Medications Current Medications Current Medications Sodium Chloride 500 ml @ 500 mls/hr 1X ONCE IV Last administered on 11/01/19at 13:00; Start 11/01/19 at 13:00; Stop 11/01/19 at 13:59; Status DC Ondansetron HCl (Zofran) 4 mg 1X ONCE IV Last administered on 11/01/19at 13:26; Start 11/01/19 at 13:00; Stop 11/01/19 at 13:13; Status DC Hydromorphone HCl (Dilaudid) 0.5 mg 1X STAT IVP Last administered on 11/01/19at 13:26; Start 11/01/19 at 12:59; Stop 11/01/19 at 13:13; Status DC Iohexol (Omnipaque 300 Mg/ml) 75 ml 1X ONCE IV Last administered on 11/01/19at 14:08; Start 11/01/19 at 13:45; Stop 11/01/19 at 13:46; Status DC Info (CONTRAST GIVEN -- Rx MONITORING) 1 each PRN DAILY PRN MC SEE COMMENTS; Start 11/01/19 at 14:00; Stop 11/03/19 at 13:59 Hydromorphone HCl (Dilaudid) 0.5 mg 1X STAT IVP Last administered on 11/01/19at 16:53; Start 11/01/19 at 16:21; Stop 11/01/19 at 16:23; Status DC Sodium Chloride 1,000 ml @ 1,000 mls/hr 1X ONCE IV Last administered on 11/01/19at 16:30; Start 11/01/19 at 16:30; Stop 11/01/19 at 17:29; Status DC Sodium Chloride 500 ml @ 500 mls/hr 1X ONCE IV Last administered on 11/01/19at 16:30; Start 11/01/19 at 16:30; Stop 11/01/19 at 17:29; Status DC Albuterol Sulfate (Ventolin Neb Soln) 2.5 mg PRN Q6HRS PRN INH SHORTNESS OF BREATH; Start 11/01/19 at 16:30 Alprazolam (Xanax) 0.25 mg PRN TID PRN PO anxiety; Start 11/01/19 at 16:30; Stop 11/01/19 at 17:11; Status DC Amlodipine Besylate (Norvasc) 5 mg DAILY PO ; Start 11/02/19 at 09:00 Cyclosporine (Restasis) 1 drop BID OU Last administered on 11/01/19at 20:41; Start 11/01/19 at 21:00 Fluticasone Propionate (Flonase) 2 spray DAILY NS ; Start 11/02/19 at 09:00 Lactobacillus Rhamnosus (Culturelle) 1 cap BID PO Last administered on at 20:41; Start 11/01/19 at 21:00 Lidocaine (Lidoderm) 1 patch DAILY TP ; Start 11/02/19 at 09:00; Stop 11/01/19 at 20:34; Status DC Metoprolol Succinate (Toprol Xl) 100 mg HS PO Last administered on 11/01/19at 20:41; Start 11/01/19 at 21:00 Nystatin (Nystop) 1 raza BID TP Last administered on 11/01/19at 20:40; Start 11/01/19 at 21:00 Pantoprazole Sodium (Protonix) 40 mg DAILYAC PO Last administered on 11/02/19 07:50; Start 11/02/19 at 07:30 Senna/Docusate Sodium (Senna Plus) 1 tab BID PO Last administered on 11/01/19 20:40; Start 11/01/19 at 21:00 Sucralfate (Carafate) 1 gm TIDAC PO Last administered on 11/02/19 07:30; Start 11/01/19 at 17:30 Tramadol HCl (Ultram) 50 mg PRN Q8HRS PRN PO PAIN; Start 11/01/19 at 16:30; Stop 11/01/19 at 19:43; Status DC Insulin Glargine (Lantus Syringe) 30 unit QHS SQ Last administered on 11/01/19 20:42; Start 11/01/19 at 21:00 Ondansetron HCl (Zofran Odt) 8 mg PRN Q8HRS PRN PO NAUSEA/VOMITING Last administered on 11/02/19 07:48; Start 11/01/19 at 17:15 Polyethylene Glycol (miraLAX PACKET) 17 gm PRN DAILY PRN PO CONSTIPATION; Start 11/01/19 at 17:11 Atorvastatin Calcium (Lipitor) 80 mg QHS PO Last administered on 11/01/19 20:41; Start 11/01/19 at 21:00 Insulin Human Lispro (HumaLOG) 0-9 UNITS TIDAC SQ Last administered on 11/01/19 18:21; Start 11/01/19 at 16:30 Dextrose (Dextrose 50%-Water Syringe) 12.5 gm PRN Q15MIN PRN IV SEE COMMENTS; Start 11/01/19 at 16:30 Ondansetron HCl (Zofran) 4 mg PRN Q8HRS PRN IV NAUSEA/VOMITING; Start 11/01/19 at 16:30; Stop 11/02/19 at 16:29 Alprazolam (Xanax) 0.25 mg PRN TID PRN PO anxiety Last administered on 11/02/19 07:48; Start 11/01/19 at 17:11 Miscellaneous (Lidoderm Patch Removal) 1 ea QHS MC ; Start 11/01/19 at 21:00; Stop 11/01/19 at 20:34; Status DC Ceftriaxone Sodium (Rocephin) 1 gm QHS IVP Last administered on 11/01/19at 18:45; Start 11/01/19 at 18:45 Tramadol HCl (Ultram) 50 mg PRN Q8HRS PRN PO PAIN; Start 11/01/19 at 19:45 Hydromorphone HCl (Dilaudid) 1 mg PRN Q4HRS PRN IV PAIN Last administered on 11/02/19at 04:23; Start 11/01/19 at 20:15 Lidocaine (Lidoderm) 1 patch QHS TP Last administered on 11/01/19at 20:40; Start 11/01/19 at 21:00 Miscellaneous (Lidoderm Patch Removal) 1 ea DAILY MC ; Start 11/02/19 at 09:00 Albumin Human 500 ml @ 125 mls/hr 1X ONCE IV ; Start 11/02/19 at 02:00; Stop 11/02/19 at 05:59; Status Cancel Acetaminophen (Tylenol) 650 mg 1X PRN PRN PO PRE-TRANSFUSION; Start 11/02/19 at 06:45 Diphenhydramine HCl (Benadryl Oral Elixir) 12.5 mg 1X PRN PRN PO PRE- TRANSFUSION; Start 11/02/19 at 06:45 Diphenhydramine HCl (Benadryl) 25 mg PRN 1X PRN PO PRE-TRANSFUSION; Start 11/02/19 at 06:45 Active Scripts Active Enoxaparin Sodium 120 Mg/0.8 Ml Disp.syrin 120 Mg SQ Q12HR 28 Days Dexamethasone 4 Mg Tablet 4 Mg PO BID 14 Days Culturelle (Lactobacillus Rhamnosus Gg) 1 Each Cap.sprink 1 Cap PO BID 30 Days Amlodipine Besylate 5 Mg Tablet 5 Mg PO DAILY 30 Days Cefdinir 300 Mg Capsule 300 Mg PO BID 10 Days Reported Cymbalta (Duloxetine Hcl) 60 Mg Capsule.dr 1 Cap PO BID Lyrica (Pregabalin) 150 Mg Capsule 1 Cap PO BID Novolog (Insulin Aspart) 100 Unit/1 Ml Cartridge 10-45 Unit SQ QIDACHS Levemir (Insulin Detemir) 100 Unit/1 Ml Vial 30 Unit SQ HS Linzess (Linaclotide) 145 Mcg Capsule 145 Mcg PO PRN PRN Crestor (Rosuvastatin Calcium) 40 Mg Tablet 0.5 Tab PO DAILY Polyethylene Glycol 3350 2,500 Gm Powder 17 Gm PO PRN PRN Xanax (Alprazolam) 1 Mg Tablet 1 Tab PO TID Restasis (Cyclosporine) 1 Each Droperette 1 Drop EACHEYE BID Proair Hfa Inhaler (Albuterol Sulfate) 8.5 Gm Hfa.aer.ad 1 Puff INH PRN Q6HRS PRN Tramadol Hcl 50 Mg Tablet 1 Tab PO PRN Q8HRS PRN Ondansetron Hcl 4 Mg Tablet 2 Tab PO PRN Q8HRS PRN Nystatin 15 Gm Powder 1 Raza TP BID Lidocaine PATCH (Lidocaine) 1 Each Adh..patch 1 Each TP DAILY Fluticasone Propionate Nasal [place] (Fluticasone Propionate) 16 Gm [place].susp 2 [place] NS DAILY Percocet 5-325 Mg Tablet (Oxycodone/Acetaminophen) 1 Each Tablet 1-2 Tab PO Q4-6HRS PRN LAST DOSE AT NEXT DOSE Senna-Docusate Sodium Tablet (Sennosides/Docusate Sodium) 1 Each Tablet 1 Each P O BID LAST DOSE THIS AM NEXT DOSE TONIGHT Robaxin-750 (Methocarbamol) 750 Mg Tablet 1 Tab PO TID LAST DOSE AT 1400 (2PM) MAY HAVE THE NEXT DOSE AT 10 PM Protonix (Pantoprazole Sodium) 40 Mg Tablet.dr 40 Mg PO DAILY LST DOSE THIS AM NEXT DOSE TOMORROW AM Carafate (Sucralfate) 1 Gm Tablet 1 Tab PO TID Meds not given this hospital admission. May resume home medications as approved by Physician. MAY TAKE WHEN AVAILABLE Xarelto (Rivaroxaban) 15 Mg Tablet 15 Mg PO DAILY Meds not given this hospital admission. May resume home medications as approved by Physician. MAY RESUME WHEN AVAILABLE Metoprolol Succinate ( Xl ) (Metoprolol Succinate) 100 Mg Tab.er.24h 100 Mg PO HS LAST DOSE THIS AM NEXT DOSE TOMORROW AM Allergies Allergies: Coded Allergies: azithromycin (Verified Allergy, Intermediate, 10/12/19) codeine (Verified Allergy, Intermediate, 05/06/17) morphine (Verified Allergy, Intermediate, 11/01/19) Tolerates hydromorphone and oxycodone ROS Gastrointestinal: Yes Abdominal Pain Musculoskeletal: Yes Muscular Weakness Physical Exam General: Alert, Oriented X3, Cooperative, moderate distress HEENT: Atraumatic Lungs: Normal air movement Abdomen: Soft, Other (morbidly obese, large (but appearing stable by markings) eccyhmosis of abd wall and right flank) Vitals VITALS Vital Signs Date Time Temp Pulse Resp B/P (MAP) Pulse Ox O2 Delivery O2 Flow Rate FiO2 11/02/19 08:55 98.6 88 20 80/59 98.6 11/02/19 07:00 98 Room Air 11/02/19 05:20 2.0 Labs Labs Laboratory Tests Test 11/01/19 12:55 11/01/19 13:50 11/01/19 17:07 11/01/19 18:00 White Blood Count 81.2 x10^3/uL (4.0-11.0) Red Blood Count 3.14 x10^6/uL (3.50-5.40) Hemoglobin 9.1 g/dL (12.0-15.5) Hematocrit 28.3 % (36.0-47.0) Mean Corpuscular Volume 90 fL (79-100) Mean Corpuscular Hemoglobin 29 pg (25-35) Mean Corpuscular Hemoglobin Concent 32 g/dL (31-37) Red Cell Distribution Width 15.3 % (11.5-14.5) Platelet Count 527 x10^3/uL (140-400) Neutrophils (%) (Auto) 90 % (31-73) Lymphocytes (%) (Auto) 7 % (24-48) Monocytes (%) (Auto) 3 % (0-9) Eosinophils (%) (Auto) 0 % (0-3) Basophils (%) (Auto) 1 % (0-3) Neutrophils # (Auto) 72.9 x10^3/uL (1.8-7.7) Lymphocytes # (Auto) 5.5 x10^3/uL (1.0-4.8) Monocytes # (Auto) 2.0 x10^3/uL (0.0-1.1) Eosinophils # (Auto) 0.4 x10^3/uL (0.0-0.7) Basophils # (Auto) 0.4 x10^3/uL (0.0-0.2) Segmented Neutrophils % 61 % (35-66) Band Neutrophils % 11 % (0-9) Lymphocytes % 4 % (24-48) Monocytes % 2 % (0-10) Metamyelocytes % 6 % (0-0) Myelocytes % 15 % (0-0) Promyelocytes % 1 % (0-0) Platelet Estimate Increased (ADEQUATE) Large Platelets Few Giant Platelets Occ Polychromasia Slight Prothrombin Time 14.8 SEC (11.7-14.0) Prothromb Time International Ratio 1.2 (0.8-1.1) Activated Partial Thromboplast Time 34 SEC (24-38) Sodium Level 135 mmol/L (136-145) Potassium Level 4.2 mmol/L (3.5-5.1) Chloride Level 100 mmol/L (98-107) Carbon Dioxide Level 28 mmol/L (21-32) Anion Gap 7 (6-14) Blood Urea Nitrogen 31 mg/dL (7-20) Creatinine 1.0 mg/dL (0.6-1.0) Estimated GFR (Cockcroft-Gault) 59.4 BUN/Creatinine Ratio 31 (6-20) Glucose Level 364 mg/dL (70-99) Calcium Level 8.3 mg/dL (8.5-10.1) Magnesium Level 1.8 mg/dL (1.8-2.4) Total Bilirubin 0.5 mg/dL (0.2-1.0) Aspartate Amino Transf (AST/SGOT) 32 U/L (15-37) Alanine Aminotransferase (ALT/SGPT) 56 U/L (14-59) Alkaline Phosphatase 61 U/L (46-116) Creatine Kinase 23 U/L (26-192) Troponin I Quantitative < 0.017 ng/mL (0.000-0.055) Total Protein 6.0 g/dL (6.4-8.2) Albumin 3.0 g/dL (3.4-5.0) Albumin/Globulin Ratio 1.0 (1.0-1.7) Lactic Acid Level 2.6 mmol/L (0.4-2.0) 2.3 mmol/L (0.4-2.0) Glucose (Fingerstick) 248 mg/dL (70-99) Test 11/01/19 20:46 11/02/19 04:45 11/02/19 07:47 Glucose (Fingerstick) 165 mg/dL (70-99) 203 mg/dL (70-99) White Blood Count 74.2 x10^3/uL (4.0-11.0) Red Blood Count 2.33 x10^6/uL (3.50-5.40) Hemoglobin 6.6 g/dL (12.0-15.5) Hematocrit 21.3 % (36.0-47.0) Mean Corpuscular Volume 91 fL (79-100) Mean Corpuscular Hemoglobin 28 pg (25-35) Mean Corpuscular Hemoglobin Concent 31 g/dL (31-37) Red Cell Distribution Width 15.7 % (11.5-14.5) Platelet Count 450 x10^3/uL (140-400) Neutrophils (%) (Auto) 85 % (31-73) Lymphocytes (%) (Auto) 12 % (24-48) Monocytes (%) (Auto) 3 % (0-9) Eosinophils (%) (Auto) 0 % (0-3) Basophils (%) (Auto) 0 % (0-3) Neutrophils # (Auto) 62.9 x10^3/uL (1.8-7.7) Lymphocytes # (Auto) 8.5 x10^3/uL (1.0-4.8) Monocytes # (Auto) 2.3 x10^3/uL (0.0-1.1) Eosinophils # (Auto) 0.3 x10^3/uL (0.0-0.7) Basophils # (Auto) 0.2 x10^3/uL (0.0-0.2) Sodium Level 137 mmol/L (136-145) Potassium Level 4.2 mmol/L (3.5-5.1) Chloride Level 103 mmol/L (98-107) Carbon Dioxide Level 28 mmol/L (21-32) Anion Gap 6 (6-14) Blood Urea Nitrogen 29 mg/dL (7-20) Creatinine 0.9 mg/dL (0.6-1.0) Estimated GFR (Cockcroft-Gault) 67.1 Glucose Level 189 mg/dL (70-99) Calcium Level 7.5 mg/dL (8.5-10.1) Iron Level 27 ug/dL (50-170) Total Iron Binding Capacity 233 ug/dL (250-450) Iron Saturation 12 % (15-34) Ferritin 82 ng/mL (8-252) Laboratory Tests Test 11/01/19 12:55 11/01/19 13:50 11/01/19 17:07 11/01/19 18:00 White Blood Count 81.2 x10^3/uL (4.0-11.0) Red Blood Count 3.14 x10^6/uL (3.50-5.40) Hemoglobin 9.1 g/dL (12.0-15.5) Hematocrit 28.3 % (36.0-47.0) Mean Corpuscular Volume 90 fL (79-100) Mean Corpuscular Hemoglobin 29 pg (25-35) Mean Corpuscular Hemoglobin Concent 32 g/dL (31-37) Red Cell Distribution Width 15.3 % (11.5-14.5) Platelet Count 527 x10^3/uL (140-400) Neutrophils (%) (Auto) 90 % (31-73) Lymphocytes (%) (Auto) 7 % (24-48) Monocytes (%) (Auto) 3 % (0-9) Eosinophils (%) (Auto) 0 % (0-3) Basophils (%) (Auto) 1 % (0-3) Neutrophils # (Auto) 72.9 x10^3/uL (1.8-7.7) Lymphocytes # (Auto) 5.5 x10^3/uL (1.0-4.8) Monocytes # (Auto) 2.0 x10^3/uL (0.0-1.1) Eosinophils # (Auto) 0.4 x10^3/uL (0.0-0.7) Basophils # (Auto) 0.4 x10^3/uL (0.0-0.2) Segmented Neutrophils % 61 % (35-66) Band Neutrophils % 11 % (0-9) Lymphocytes % 4 % (24-48) Monocytes % 2 % (0-10) Metamyelocytes % 6 % (0-0) Myelocytes % 15 % (0-0) Promyelocytes % 1 % (0-0) Platelet Estimate Increased (ADEQUATE) Large Platelets Few Giant Platelets Occ Polychromasia Slight Prothrombin Time 14.8 SEC (11.7-14.0) Prothromb Time International Ratio 1.2 (0.8-1.1) Activated Partial Thromboplast Time 34 SEC (24-38) Sodium Level 135 mmol/L (136-145) Potassium Level 4.2 mmol/L (3.5-5.1) Chloride Level 100 mmol/L (98-107) Carbon Dioxide Level 28 mmol/L (21-32) Anion Gap 7 (6-14) Blood Urea Nitrogen 31 mg/dL (7-20) Creatinine 1.0 mg/dL (0.6-1.0) Estimated GFR (Cockcroft-Gault) 59.4 BUN/Creatinine Ratio 31 (6-20) Glucose Level 364 mg/dL (70-99) Calcium Level 8.3 mg/dL (8.5-10.1) Magnesium Level 1.8 mg/dL (1.8-2.4) Total Bilirubin 0.5 mg/dL (0.2-1.0) Aspartate Amino Transf (AST/SGOT) 32 U/L (15-37) Alanine Aminotransferase (ALT/SGPT) 56 U/L (14-59) Alkaline Phosphatase 61 U/L (46-116) Creatine Kinase 23 U/L (26-192) Troponin I Quantitative < 0.017 ng/mL (0.000-0.055) Total Protein 6.0 g/dL (6.4-8.2) Albumin 3.0 g/dL (3.4-5.0) Albumin/Globulin Ratio 1.0 (1.0-1.7) Lactic Acid Level 2.6 mmol/L (0.4-2.0) 2.3 mmol/L (0.4-2.0) Glucose (Fingerstick) 248 mg/dL (70-99) Test 11/01/19 20:46 11/02/19 04:45 11/02/19 07:47 Glucose (Fingerstick) 165 mg/dL (70-99) 203 mg/dL (70-99) White Blood Count 74.2 x10^3/uL (4.0-11.0) Red Blood Count 2.33 x10^6/uL (3.50-5.40) Hemoglobin 6.6 g/dL (12.0-15.5) Hematocrit 21.3 % (36.0-47.0) Mean Corpuscular Volume 91 fL (79-100) Mean Corpuscular Hemoglobin 28 pg (25-35) Mean Corpuscular Hemoglobin Concent 31 g/dL (31-37) Red Cell Distribution Width 15.7 % (11.5-14.5) Platelet Count 450 x10^3/uL (140-400) Neutrophils (%) (Auto) 85 % (31-73) Lymphocytes (%) (Auto) 12 % (24-48) Monocytes (%) (Auto) 3 % (0-9) Eosinophils (%) (Auto) 0 % (0-3) Basophils (%) (Auto) 0 % (0-3) Neutrophils # (Auto) 62.9 x10^3/uL (1.8-7.7) Lymphocytes # (Auto) 8.5 x10^3/uL (1.0-4.8) Monocytes # (Auto) 2.3 x10^3/uL (0.0-1.1) Eosinophils # (Auto) 0.3 x10^3/uL (0.0-0.7) Basophils # (Auto) 0.2 x10^3/uL (0.0-0.2) Sodium Level 137 mmol/L (136-145) Potassium Level 4.2 mmol/L (3.5-5.1) Chloride Level 103 mmol/L (98-107) Carbon Dioxide Level 28 mmol/L (21-32) Anion Gap 6 (6-14) Blood Urea Nitrogen 29 mg/dL (7-20) Creatinine 0.9 mg/dL (0.6-1.0) Estimated GFR (Cockcroft-Gault) 67.1 Glucose Level 189 mg/dL (70-99) Calcium Level 7.5 mg/dL (8.5-10.1) Iron Level 27 ug/dL (50-170) Total Iron Binding Capacity 233 ug/dL (250-450) Iron Saturation 12 % (15-34) Ferritin 82 ng/mL (8-252) Images Images CT with right flank hematoma Assessment/Plan Assessment/Plan right flank hematoma, secondary to fall and anticoagulants agree with supportive care, holding anticoagulants and work up via hematology. Pt is unlikely to benefit from surgical intervention and should be self limiting will follow for possible intervention. Thanks for consult! MAXI DUKE MD Nov 02, 2019 10:00
--- NOTE | 2019-11-02 10:40 | RAD ---
Procedure: Ultrasound-guided placement of right internal jugular central venous [id number] 8:37 AM Clinical Indication: Venous Access for Blood Products Discussion: The risks and benefits of the procedure were discussed the patient and/or their outside sales representative insurance. Informed consent was obtained. A timeout procedure was performed. All elements of maximal sterile barrier technique including the use of a cap, mask, sterile gown, sterile gloves, large sterile sheet, appropriate hand hygiene, and 2% chlorhexidine for cutaneous antisepsis (or acceptable alternative antiseptic per current guidelines) were followed for this procedure. The patient was prepped and draped in the usual sterile fashion. Ultrasound interrogation of the right neck revealed patency and compressibility of the right internal jugular vein. A 21-gauge micropuncture was then used to gain access to this vein under ultrasound guidance. A hard copy ultrasound image was recorded. A guidewire was advanced centrally. 5 Polish sheath was placed. Over a wire following dilatation, a triple-lumen central venous catheter was advanced centrally. Catheter was found to flush and aspirate normally. Follow-up chest radiograph demonstrates tip at the cavoatrial junction. Catheter secured in place and a sterile dressing was applied. No immediate complications were identified. Impression: Successful ultrasound-guided placement of right internal jugular triple-lumen central venous catheter
--- NOTE | 2019-11-02 10:41 | NUR ---
SS following for discharge planning. SS reviewed pt chart. Pt is from home and is currently on room air. SS will continue to follow for discharge planning.
--- NOTE | 2019-11-02 11:27 | RAD ---
Examination: PORTABLE CHEST 1V History: Central line placement Comparison/Correlation: 11/01/2019 portable chest x-ray exam Findings: Supine portable frontal view of the chest was obtained. Right internal jugular catheter tip terminates overlying the right atrium. No pneumothorax. No definite effusion. Bony structures unremarkable. Right upper quadrant surgical clips are present. Impression: No infiltrate. An introducer catheter remains overlying the right atrium. No pneumothorax. Electronically signed by: Sen Pratt MD (11/02/2019 11:24 AM) [facility]
[2019-11-02] MEDS: IV NORMAL SALINE 1000ML BAG 1,000 ML IV SCH ×2 (12:00→22:24)
--- NOTE | 2019-11-02 12:06 | PDOC2 ---
CONSULT Date of Consult Date of Consult DATE: 11/02/19 TIME: 11:51 Reason for Consult Reason for Consult: f/u brain mass History of Present Illness Reason for Visit: 49F slated for craniotomy for brain mass debulking/resection next week presented to ED with near syncopal event and abdominal/flank hemorrhage. Also with reported uncontrolled epistaxis. Was on lovenox for chonic anticoagulation brid ge (normally on xarelto). Noted to have significantly increased leukocytosis WBC>80. Surgery was pending completion of abx tx of reported pneumonia and medical clearance optimization. Denies acute changes otherwise at this time. Past Medical History Cardiovascular: HTN, Hyperlipidemia, Other Pulmonary: Asthma, Pulmonary embolus, Other CENTRAL NERVOUS SYSTEM: Periperal neuropathy, Other GI: Peptic Ulcer disease, Other Heme/Onc: No pertinent hx Hepatobiliary: No pertinent hx Psych: Anxiety, Depression, Other Musculoskeletal: low back pain Rheumatologic: No pertinent hx Infectious disease: No pertinent hx Renal/: Other Endocrine: Diabetes Past Surgical History Past Surgical History: Appendectomy, Cholecystectomy, , Hysterectomy, Other Family History Family History: Coronary Artery Disease, Hypertension Social History No ALCOHOL: occassional Drugs: None Lives: with Family Current Problem List Problem List Problems Medical Problems: (1) Abdominal hemorrhage Status: Acute (2) Generalized weakness Status: Acute (3) Lactic acidosis Status: Acute (4) Leukocytosis Status: Acute Current Medications Current Medications Current Medications Sodium Chloride 500 ml @ 500 mls/hr 1X ONCE IV Last administered on 11/01/19at 13:00; Start 11/01/19 at 13:00; Stop 11/01/19 at 13:59; Status DC Ondansetron HCl (Zofran) 4 mg 1X ONCE IV Last administered on 11/01/19at 13:26; Start 11/01/19 at 13:00; Stop 11/01/19 at 13:13; Status DC Hydromorphone HCl (Dilaudid) 0.5 mg 1X STAT IVP Last administered on 11/01/19at 13:26; Start 11/01/19 at 12:59; Stop 11/01/19 at 13:13; Status DC Iohexol (Omnipaque 300 Mg/ml) 75 ml 1X ONCE IV Last administered on 11/01/19at 14:08; Start 11/01/19 at 13:45; Stop 11/01/19 at 13:46; Status DC Info (CONTRAST GIVEN -- Rx MONITORING) 1 each PRN DAILY PRN MC SEE COMMENTS; Start 11/01/19 at 14:00; Stop 11/03/19 at 13:59 Hydromorphone HCl (Dilaudid) 0.5 mg 1X STAT IVP Last administered on 11/01/19at 16:53; Start 11/01/19 at 16:21; Stop 11/01/19 at 16:23; Status DC Sodium Chloride 1,000 ml @ 1,000 mls/hr 1X ONCE IV Last administered on 11/01/19at 16:30; Start 11/01/19 at 16:30; Stop 11/01/19 at 17:29; Status DC Sodium Chloride 500 ml @ 500 mls/hr 1X ONCE IV Last administered on 11/01/19at 16:30; Start 11/01/19 at 16:30; Stop 11/01/19 at 17:29; Status DC Albuterol Sulfate (Ventolin Neb Soln) 2.5 mg PRN Q6HRS PRN INH SHORTNESS OF BREATH; Start 11/01/19 at 16:30 Alprazolam (Xanax) 0.25 mg PRN TID PRN PO anxiety; Start 11/01/19 at 16:30; Stop 11/01/19 at 17:11; Status DC Amlodipine Besylate (Norvasc) 5 mg DAILY PO ; Start 11/02/19 at 09:00 Cyclosporine (Restasis) 1 drop BID OU Last administered on 11/01/19at 20:41; Start 11/01/19 at 21:00 Fluticasone Propionate (Flonase) 2 spray DAILY NS ; Start 11/02/19 at 09:00 Lactobacillus Rhamnosus (Culturelle) 1 cap BID PO Last administered on 11/02/19at 07:45; Start 11/01/19 at 21:00 Lidocaine (Lidoderm) 1 patch DAILY TP ; Start 11/02/19 at 09:00; Stop 11/01/19 at 20:34; Status DC Metoprolol Succinate (Toprol Xl) 100 mg HS PO Last administered on 11/01/19at 20:41; Start 11/01/19 at 21:00 Nystatin (Nystop) 1 raza BID TP Last administered on 11/01/19 20:40; Start 11/01/19 at 21:00 Pantoprazole Sodium (Protonix) 40 mg DAILYAC PO Last administered on 11/02/19 07:50; Start 11/02/19 at 07:30 Senna/Docusate Sodium (Senna Plus) 1 tab BID PO Last administered on 11/01/19 20:40; Start 11/01/19 at 21:00 Sucralfate (Carafate) 1 gm TIDAC PO Last administered on 11/02/19 07:30; Start 11/01/19 at 17:30 Tramadol HCl (Ultram) 50 mg PRN Q8HRS PRN PO PAIN; Start 11/01/19 at 16:30; Stop 11/01/19 at 19:43; Status DC Insulin Glargine (Lantus Syringe) 30 unit QHS SQ Last administered on 9at 20:42; Start 11/01/19 at 21:00 Ondansetron HCl (Zofran Odt) 8 mg PRN Q8HRS PRN PO NAUSEA/VOMITING Last administered on 11/02/19 07:48; Start 11/01/19 at 17:15 Polyethylene Glycol (miraLAX PACKET) 17 gm PRN DAILY PRN PO CONSTIPATION; Start 11/01/19 at 17:11 Atorvastatin Calcium (Lipitor) 80 mg QHS PO Last administered on 11/01/19 20:41; Start 11/01/19 at 21:00 Insulin Human Lispro (HumaLOG) 0-9 UNITS TIDAC SQ Last administered on 11/01/19at 18:21; Start 11/01/19 at 16:30 Dextrose (Dextrose 50%-Water Syringe) 12.5 gm PRN Q15MIN PRN IV SEE COMMENTS; Start 11/01/19 at 16:30 Ondansetron HCl (Zofran) 4 mg PRN Q8HRS PRN IV NAUSEA/VOMITING; Start 11/01/19 at 16:30; Stop 11/02/19 at 16:29 Alprazolam (Xanax) 0.25 mg PRN TID PRN PO anxiety Last administered on 11/02/19 07:48; Start 11/01/19 at 17:11 Miscellaneous (Lidoderm Patch Removal) 1 ea QHS MC ; Start 11/01/19 at 21:00; Stop 11/01/19 at 20:34; Status DC Ceftriaxone Sodium (Rocephin) 1 gm QHS IVP Last administered on 11/01/19at 18:45; Start 11/01/19 at 18:45 Tramadol HCl (Ultram) 50 mg PRN Q8HRS PRN PO PAIN; Start 11/01/19 at 19:45 Hydromorphone HCl (Dilaudid) 1 mg PRN Q4HRS PRN IV PAIN Last administered on 11/02/19at 04:23; Start 11/01/19 at 20:15 Lidocaine (Lidoderm) 1 patch QHS TP Last administered on 11/01/19at 20:40; Start 11/01/19 at 21:00 Miscellaneous (Lidoderm Patch Removal) 1 ea DAILY MC Last administered on 11/02/19at 09:00; Start 11/02/19 at 09:00 Albumin Human 500 ml @ 125 mls/hr 1X ONCE IV ; Start 11/02/19 at 02:00; Stop 11/02/19 at 05:59; Status Cancel Acetaminophen (Tylenol) 650 mg 1X PRN PRN PO PRE-TRANSFUSION; Start 11/02/19 at 06:45 Diphenhydramine HCl (Benadryl Oral Elixir) 12.5 mg 1X PRN PRN PO PRE- TRANSFUSION; Start 11/02/19 at 06:45 Diphenhydramine HCl (Benadryl) 25 mg PRN 1X PRN PO PRE-TRANSFUSION; Start 11/02/19 at 06:45 Active Scripts Active Enoxaparin Sodium 120 Mg/0.8 Ml Disp.syrin 120 Mg SQ Q12HR 28 Days Dexamethasone 4 Mg Tablet 4 Mg PO BID 14 Days Culturelle (Lactobacillus Rhamnosus Gg) 1 Each Cap.sprink 1 Cap PO BID 30 Days Amlodipine Besylate 5 Mg Tablet 5 Mg PO DAILY 30 Days Cefdinir 300 Mg Capsule 300 Mg PO BID 10 Days Reported Cymbalta (Duloxetine Hcl) 60 Mg Capsule.dr 1 Cap PO BID Lyrica (Pregabalin) 150 Mg Capsule 1 Cap PO BID Novolog (Insulin Aspart) 100 Unit/1 Ml Cartridge 10-45 Unit SQ QIDACHS Levemir (Insulin Detemir) 100 Unit/1 Ml Vial 30 Unit SQ HS Linzess (Linaclotide) 145 Mcg Capsule 145 Mcg PO PRN PRN Crestor (Rosuvastatin Calcium) 40 Mg Tablet 0.5 Tab PO DAILY Polyethylene Glycol 3350 2,500 Gm Powder 17 Gm PO PRN PRN Xanax (Alprazolam) 1 Mg Tablet 1 Tab PO TID Restasis (Cyclosporine) 1 Each Droperette 1 Drop EACHEYE BID Proair Hfa Inhaler (Albuterol Sulfate) 8.5 Gm Hfa.aer.ad 1 Puff INH PRN Q6HRS PRN Tramadol Hcl 50 Mg Tablet 1 Tab PO PRN Q8HRS PRN Ondansetron Hcl 4 Mg Tablet 2 Tab PO PRN Q8HRS PRN Nystatin 15 Gm Powder 1 [place] TP BID Lidocaine PATCH (Lidocaine) 1 Each Adh..patch 1 Each TP DAILY Fluticasone Propionate Nasal [place] (Fluticasone Propionate) 16 Gm [place].susp 2 [place] NS DAILY Percocet 5-325 Mg Tablet (Oxycodone/Acetaminophen) 1 Each Tablet 1-2 Tab PO Q4-6HRS PRN LAST DOSE AT NEXT DOSE Senna-Docusate Sodium Tablet (Sennosides/Docusate Sodium) 1 Each Tablet 1 Each PO BID LAST DOSE THIS AM NEXT DOSE TONIGHT Robaxin-750 (Methocarbamol) 750 Mg Tablet 1 Tab PO TID LAST DOSE AT 1400 (2PM) MAY HAVE THE NEXT DOSE AT 10 PM Protonix (Pantoprazole Sodium) 40 Mg Tablet.dr 40 Mg PO DAILY LST DOSE THIS AM NEXT DOSE TOMORROW AM Carafate (Sucralfate) 1 Gm Tablet 1 Tab PO TID Meds not given this hospital admission. May resume home medications as approved by Physician. MAY TAKE WHEN AVAILABLE Xarelto (Rivaroxaban) 15 Mg Tablet 15 Mg PO DAILY Meds not given this hospital admission. May resume home medications as approved by Physician. MAY RESUME WHEN AVAILABLE Metoprolol Succinate ( Xl ) (Metoprolol Succinate) 100 Mg Tab.er.24h 100 Mg PO HS LAST DOSE THIS AM NEXT DOSE TOMORROW AM Allergies Allergies: Coded Allergies: azithromycin (Verified Allergy, Intermediate, 10/12/19) codeine (Verified Allergy, Intermediate, 05/06/17) morphine (Verified Allergy, Intermediate, 11/01/19) Tolerates hydromorphone and oxycodone Physical Exam Physical Exam AAOx4, NAD, depressed affect, CN 2-12 intact, LLANES 1/5 right DF/PF, 4/5 RLE RUE, 5/5 throughout LUE, LLE, sensation relatively altered LT left side relative to right Vitals VITALS Vital Signs Date Time Temp Pulse Resp B/P (MAP) Pulse Ox O2 Delivery O2 Flow Rate FiO2 11/02/19 11:32 98.6 77 16 116/65 98.6 11/02/19 11:00 99 Room Air 11/02/19 05:20 2.0 Labs Labs Laboratory Tests Test 11/01/19 12:55 11/01/19 13:50 11/01/19 17:07 11/01/19 18:00 White Blood Count 81.2 x10^3/uL (4.0-11.0) Red Blood Count 3.14 x10^6/uL (3.50-5.40) Hemoglobin 9.1 g/dL (12.0-15.5) Hematocrit 28.3 % (36.0-47.0) Mean Corpuscular Volume 90 fL (79-100) Mean Corpuscular Hemoglobin 29 pg (25-35) Mean Corpuscular Hemoglobin Concent 32 g/dL (31-37) Red Cell Distribution Width 15.3 % (11.5-14.5) Platelet Count 527 x10^3/uL (140-400) Neutrophils (%) (Auto) 90 % (31-73) Lymphocytes (%) (Auto) 7 % (24-48) Monocytes (%) (Auto) 3 % (0-9) Eosinophils (%) (Auto) 0 % (0-3) Basophils (%) (Auto) 1 % (0-3) Neutrophils # (Auto) 72.9 x10^3/uL (1.8-7.7) Lymphocytes # (Auto) 5.5 x10^3/uL (1.0-4.8) Monocytes # (Auto) 2.0 x10^3/uL (0.0-1.1) Eosinophils # (Auto) 0.4 x10^3/uL (0.0-0.7) Basophils # (Auto) 0.4 x10^3/uL (0.0-0.2) Segmented Neutrophils % 61 % (35-66) Band Neutrophils % 11 % (0-9) Lymphocytes % 4 % (24-48) Monocytes % 2 % (0-10) Metamyelocytes % 6 % (0-0) Myelocytes % 15 % (0-0) Promyelocytes % 1 % (0-0) Platelet Estimate Increased (ADEQUATE) Large Platelets Few Giant Platelets Occ Polychromasia Slight Prothrombin Time 14.8 SEC (11.7-14.0) Prothromb Time International Ratio 1.2 (0.8-1.1) Activated Partial Thromboplast Time 34 SEC (24-38) Sodium Level 135 mmol/L (136-145) Potassium Level 4.2 mmol/L (3.5-5.1) Chloride Level 100 mmol/L (98-107) Carbon Dioxide Level 28 mmol/L (21-32) Anion Gap 7 (6-14) Blood Urea Nitrogen 31 mg/dL (7-20) Creatinine 1.0 mg/dL (0.6-1.0) Estimated GFR (Cockcroft-Gault) 59.4 BUN/Creatinine Ratio 31 (6-20) Glucose Level 364 mg/dL (70-99) Calcium Level 8.3 mg/dL (8.5-10.1) Magnesium Level 1.8 mg/dL (1.8-2.4) Total Bilirubin 0.5 mg/dL (0.2-1.0) Aspartate Amino Transf (AST/SGOT) 32 U/L (15-37) Alanine Aminotransferase (ALT/SGPT) 56 U/L (14-59) Alkaline Phosphatase 61 U/L (46-116) Creatine Kinase 23 U/L (26-192) Troponin I Quantitative < 0.017 ng/mL (0.000-0.055) Total Protein 6.0 g/dL (6.4-8.2) Albumin 3.0 g/dL (3.4-5.0) Albumin/Globulin Ratio 1.0 (1.0-1.7) Lactic Acid Level 2.6 mmol/L (0.4-2.0) 2.3 mmol/L (0.4-2.0) Glucose (Fingerstick) 248 mg/dL (70-99) Test 11/01/19 20:46 11/02/19 04:45 11/02/19 07:47 11/02/19 11:41 Glucose (Fingerstick) 165 mg/dL (70-99) 203 mg/dL (70-99) 207 mg/dL (70-99) White Blood Count 74.2 x10^3/uL (4.0-11.0) Red Blood Count 2.33 x10^6/uL (3.50-5.40) Hemoglobin 6.6 g/dL (12.0-15.5) Hematocrit 21.3 % (36.0-47.0) Mean Corpuscular Volume 91 fL (79-100) Mean Corpuscular Hemoglobin 28 pg (25-35) Mean Corpuscular Hemoglobin Concent 31 g/dL (31-37) Red Cell Distribution Width 15.7 % (11.5-14.5) Platelet Count 450 x10^3/uL (140-400) Neutrophils (%) (Auto) 85 % (31-73) Lymphocytes (%) (Auto) 12 % (24-48) Monocytes (%) (Auto) 3 % (0-9) Eosinophils (%) (Auto) 0 % (0-3) Basophils (%) (Auto) 0 % (0-3) Neutrophils # (Auto) 62.9 x10^3/uL (1.8-7.7) Lymphocytes # (Auto) 8.5 x10^3/uL (1.0-4.8) Monocytes # (Auto) 2.3 x10^3/uL (0.0-1.1) Eosinophils # (Auto) 0.3 x10^3/uL (0.0-0.7) Basophils # (Auto) 0.2 x10^3/uL (0.0-0.2) Sodium Level 137 mmol/L (136-145) Potassium Level 4.2 mmol/L (3.5-5.1) Chloride Level 103 mmol/L (98-107) Carbon Dioxide Level 28 mmol/L (21-32) Anion Gap 6 (6-14) Blood Urea Nitrogen 29 mg/dL (7-20) Creatinine 0.9 mg/dL (0.6-1.0) Estimated GFR (Cockcroft-Gault) 67.1 Glucose Level 189 mg/dL (70-99) Calcium Level 7.5 mg/dL (8.5-10.1) Iron Level 27 ug/dL (50-170) Total Iron Binding Capacity 233 ug/dL (250-450) Iron Saturation 12 % (15-34) Ferritin 82 ng/mL (8-252) Laboratory Tests Test 11/01/19 12:55 11/01/19 13:50 11/01/19 17:07 11/01/19 18:00 White Blood Count 81.2 x10^3/uL (4.0-11.0) Red Blood Count 3.14 x10^6/uL (3.50-5.40) Hemoglobin 9.1 g/dL (12.0-15.5) Hematocrit 28.3 % (36.0-47.0) Mean Corpuscular Volume 90 fL (79-100) Mean Corpuscular Hemoglobin 29 pg (25-35) Mean Corpuscular Hemoglobin Concent 32 g/dL (31-37) Red Cell Distribution Width 15.3 % (11.5-14.5) Platelet Count 527 x10^3/uL (140-400) Neutrophils (%) (Auto) 90 % (31-73) Lymphocytes (%) (Auto) 7 % (24-48) Monocytes (%) (Auto) 3 % (0-9) Eosinophils (%) (Auto) 0 % (0-3) Basophils (%) (Auto) 1 % (0-3) Neutrophils # (Auto) 72.9 x10^3/uL (1.8-7.7) Lymphocytes # (Auto) 5.5 x10^3/uL (1.0-4.8) Monocytes # (Auto) 2.0 x10^3/uL (0.0-1.1) Eosinophils # (Auto) 0.4 x10^3/uL (0.0-0.7) Basophils # (Auto) 0.4 x10^3/uL (0.0-0.2) Segmented Neutrophils % 61 % (35-66) Band Neutrophils % 11 % (0-9) Lymphocytes % 4 % (24-48) Monocytes % 2 % (0-10) Metamyelocytes % 6 % (0-0) Myelocytes % 15 % (0-0) Promyelocytes % 1 % (0-0) Platelet Estimate Increased (ADEQUATE) Large Platelets Few Giant Platelets Occ Polychromasia Slight Prothrombin Time 14.8 SEC (11.7-14.0) Prothromb Time International Ratio 1.2 (0.8-1.1) Activated Partial Thromboplast Time 34 SEC (24-38) Sodium Level 135 mmol/L (136-145) Potassium Level 4.2 mmol/L (3.5-5.1) Chloride Level 100 mmol/L (98-107) Carbon Dioxide Level 28 mmol/L (21-32) Anion Gap 7 (6-14) Blood Urea Nitrogen 31 mg/dL (7-20) Creatinine 1.0 mg/dL (0.6-1.0) Estimated GFR (Cockcroft-Gault) 59.4 BUN/Creatinine Ratio 31 (6-20) Glucose Level 364 mg/dL (70-99) Calcium Level 8.3 mg/dL (8.5-10.1) Magnesium Level 1.8 mg/dL (1.8-2.4) Total Bilirubin 0.5 mg/dL (0.2-1.0) Aspartate Amino Transf (AST/SGOT) 32 U/L (15-37) Alanine Aminotransferase (ALT/SGPT) 56 U/L (14-59) Alkaline Phosphatase 61 U/L (46-116) Creatine Kinase 23 U/L (26-192) Troponin I Quantitative < 0.017 ng/mL (0.000-0.055) Total Protein 6.0 g/dL (6.4-8.2) Albumin 3.0 g/dL (3.4-5.0) Albumin/Globulin Ratio 1.0 (1.0-1.7) Lactic Acid Level 2.6 mmol/L (0.4-2.0) 2.3 mmol/L (0.4-2.0) Glucose (Fingerstick) 248 mg/dL (70-99) Test 11/01/19 20:46 11/02/19 04:45 11/02/19 07:47 11/02/19 11:41 Glucose (Fingerstick) 165 mg/dL (70-99) 203 mg/dL (70-99) 207 mg/dL (70-99) White Blood Count 74.2 x10^3/uL (4.0-11.0) Red Blood Count 2.33 x10^6/uL (3.50-5.40) Hemoglobin 6.6 g/dL (12.0-15.5) Hematocrit 21.3 % (36.0-47.0) Mean Corpuscular Volume 91 fL (79-100) Mean Corpuscular Hemoglobin 28 pg (25-35) Mean Corpuscular Hemoglobin Concent 31 g/dL (31-37) Red Cell Distribution Width 15.7 % (11.5-14.5) Platelet Count 450 x10^3/uL (140-400) Neutrophils (%) (Auto) 85 % (31-73) Lymphocytes (%) (Auto) 12 % (24-48) Monocytes (%) (Auto) 3 % (0-9) Eosinophils (%) (Auto) 0 % (0-3) Basophils (%) (Auto) 0 % (0-3) Neutrophils # (Auto) 62.9 x10^3/uL (1.8-7.7) Lymphocytes # (Auto) 8.5 x10^3/uL (1.0-4.8) Monocytes # (Auto) 2.3 x10^3/uL (0.0-1.1) Eosinophils # (Auto) 0.3 x10^3/uL (0.0-0.7) Basophils # (Auto) 0.2 x10^3/uL (0.0-0.2) Sodium Level 137 mmol/L (136-145) Potassium Level 4.2 mmol/L (3.5-5.1) Chloride Level 103 mmol/L (98-107) Carbon Dioxide Level 28 mmol/L (21-32) Anion Gap 6 (6-14) Blood Urea Nitrogen 29 mg/dL (7-20) Creatinine 0.9 mg/dL (0.6-1.0) Estimated GFR (Cockcroft-Gault) 67.1 Glucose Level 189 mg/dL (70-99) Calcium Level 7.5 mg/dL (8.5-10.1) Iron Level 27 ug/dL (50-170) Total Iron Binding Capacity 233 ug/dL (250-450) Iron Saturation 12 % (15-34) Ferritin 82 ng/mL (8-252) Assessment/Plan Assessment/Plan 49F with brain mass -hematology consult noted -bone bx pending medical stability -presently very high risk for craniotomy due to acute medical issues, will continue to follow and reassess BINH WELCH MD Nov 02, 2019 12:06
[2019-11-02 12:38] LABS: HEMATOCRIT 26.5 % (36.0-47.0); HEMOGLOBIN 8.5 g/dL (12.0-15.5)
[2019-11-02] MEDS: POLYETHYLENE GLYCOL 3350 17 GM PACKET. PO PRN (12:42)
[2019-11-02] MEDS: NYSTATIN TOPICAL POWDER 15GM BOTTLE. TP SCH ×2 (12:42→21:18)
[2019-11-02] MEDS: cycloSPORINE 0.05% OPHTH DROPERETTE. OU SCH ×2 (12:42→21:16)
[2019-11-02] MEDS: FLUTICASONE 50MCG/NASAL SPRAY 16GM BOTTLE. NS SCH (12:42)
[2019-11-02] MEDS: SENNOSIDES/DOCUSATE 8.6/50MG TABLET. PO SCH ×2 (12:42→21:16)
[2019-11-02] MEDS: traMADol 50 MG TABLET PO PRN (13:16)
--- NOTE | 2019-11-02 14:30 | NUR ---
Patient with active bleed to unstable for bone marrow biopsy at this time per Dr Alvarado.
[2019-11-02] MEDS: LACTULOSE for RECTAL 200 GM/300 ML SOLUTION. PR SCH ×2 (18:00→23:11)
[2019-11-02 18:49] LABS: HEMATOCRIT 24.7 % (36.0-47.0)
[2019-11-02 19:16] LABS: % SEGS 61 % (35-66)
[2019-11-02] MEDS: METOPROLOL SUCC 24HR ER 100 MG TAB.ER.24H. PO SCH (21:00)
[2019-11-02] MEDS: ATORVASTATIN CALCIUM 40 MG TABLET. PO SCH (21:16)
[2019-11-02] MEDS: cefTRIAXone IV Push 1 GM VIAL. IVP SCH (21:16)
[2019-11-02] MEDS: LIDOCAINE (700MG/PATCH) PATCH. TP SCH (21:17)
[2019-11-02] MEDS: INSULIN GLARGINE SYRINGE. SQ SCH (21:18)
[2019-11-03] VITALS (23 sets, daily range): BP systolic 87–123; BP diastolic 48–72
[2019-11-03] MEDS: LACTULOSE for RECTAL 200 GM/300 ML SOLUTION. PR SCH ×4 (04:43→23:21)
[2019-11-03] MEDS: HYDROmorphone 2 MG/ML VIAL IV PRN ×5 (06:10→21:19)
[2019-11-03 07:08] LABS: CALCIUM 7.4 mg/dL (8.5-10.1); CREATININE 0.6 mg/dL (0.6-1.0); GFR 107.2; POTASSIUM 3.9 mmol/L (3.5-5.1)
[2019-11-03 07:23] LABS: BASO # 0.1 x10^3/uL (0.0-0.2); BASO % 0 % (0-3); EOS # 0.1 x10^3/uL (0.0-0.7); EOS % 0 % (0-3); HEMATOCRIT 21.5 % (36.0-47.0); LYMPH # 4.1 x10^3/uL (1.0-4.8); LYMPH % 9 % (24-48); MEAN CORPUSCULAR HEMOGLOBIN 29 pg (25-35); MEAN CORPUSCULAR HGB CONC 33 g/dL (31-37); MEAN CORPUSCULAR VOLUME 89 fL (79-100); MONO # 1.3 x10^3/uL (0.0-1.1); MONO % 3 % (0-9); NEUT # 41.5 x10^3/uL (1.8-7.7); NEUT % 88 % (31-73); PLATELET COUNT 292 x10^3/uL (140-400); RED BLOOD COUNT 2.42 x10^6/uL (3.50-5.40); RED CELL DISTRIBUTION WIDTH 16.4 % (11.5-14.5)
[2019-11-03 07:49] LABS: WHITE BLOOD COUNT 47.1 x10^3/uL (4.0-11.0)
[2019-11-03] MEDS: IV NORMAL SALINE 1000ML BAG 1,000 ML IV SCH ×2 (07:51→17:38)
[2019-11-03] MEDS: traMADol 50 MG TABLET PO PRN (08:49)
[2019-11-03] MEDS: amLODIPine BESYLATE 5 MG TABLET PO SCH (09:00)
[2019-11-03] MEDS: PATCH REMOVAL. MC SCH (09:00)
--- NOTE | 2019-11-03 09:27 | PDOC ---
PROGRESS NOTES Chief Complaint Chief Complaint A/P: Abdominal pain - with swelling - large hematoma. Pain control, consult general surgery Acute blood loss anemia - likely 2/2 large right sided abdominal wall hematoma. Given the acute drop in Hb this bleed is acute. Transfused 2u 11/02 Elevated WBC - much higher now. This needs hematology. Will get smear with pathology. Bone marrow biopsy is recommended Acute encephalopathy - likely metabolic with meds - narcotics and benzos and brain mass, possibly toxic as well Brain Mass - meningioma with midline shifting, vasogenic edema. On steroids - Left parietal extra-axial solid enhancing mass has imaging characteristics suggestive of a meningioma. surgery planned this coming tuesday DM2 - basal bolus plus regimen of insulin Chronic Back Pain and Sciatica Rt Leg Hx PE - sees hematology, on xarelto transitioned to lovenox. Consult hematology for further recs Hypotension - new, will hold her amlodipine Epistaxis - possibly lovenox, though I am more concerned about a hematologic malignancy FEN - General diet PPX - Contraindicated FULL CODE Dispo - inpatient History of Present Illness History of Present Illness Ms Alejo is a 49-year-old female w/ PMHx Anxiety, CAD, Diabetes, High Cholesterol, Hypertension, Kidney Stones, Ovarian Cyst, Pneumonia, pulmonary embolism, tachycardia who comes to ED with presyncope. On her way to Oncology today her left leg gave out on her and she felt like she was floating. She's been having abdominal bruising and pain to the right side of her abdomen with swelling and the bruise feels so tense that she thinks an alien or baby is going to burst out. CT abdomen shows large right subcutaneous hematoma with active bleeding. She also started having intermittent nosebleeds day prior to admit and again day of admission. EKG shows a sinus rhythm at 94 bpm, normal axis, QTC 466 ms, no ST elevation. Labs concerning for WBC of 81. 11/02: Hb 6.6 today. ordered 2u PRBC. She is still a little confused, better than prior admit. She was feeling uncoordinated and notes her headache she has been having. Reports her pain is 10. Overnight had BM, pain better controlled. Hb 7 now s/p 2u PRBC. WBC 45. Still a bit confused. No further epistaxis. No CP or SOB. Vitals Vitals Vital Signs Date Time Temp Pulse Resp B/P (MAP) Pulse Ox O2 Delivery O2 Flow Rate FiO2 11/03/19 08:49 20 98 Room Air 11/03/19 07:00 94 96/57 (70) 11/03/19 06:10 2.0 11/03/19 05:00 98.6 98.6 Physical Exam General: Alert, Oriented X3, Cooperative, moderate distress Lungs: Wheezing Abdomen: Soft, Other (morbidly obese, large (but appearing stable by markings) eccyhmosis of abd wall and right flank) Extremities: No clubbing, No cyanosis, No edema, Normal pulses, No tenderness/swelling Skin: Other (Ecchymosis on right abdomen) Labs LABS Laboratory Tests Test 11/02/19 11:41 11/02/19 12:25 11/02/19 16:54 11/02/19 18:13 Glucose (Fingerstick) 207 mg/dL (70-99) 184 mg/dL (70-99) Hemoglobin 8.5 g/dL (12.0-15.5) 8.0 g/dL (12.0-15.5) Hematocrit 26.5 % (36.0-47.0) 24.7 % (36.0-47.0) Mean Corpuscular Hemoglobin Concent 32 g/dL (31-37) 33 g/dL (31-37) Test 11/02/19 21:20 11/03/19 06:30 Glucose (Fingerstick) 222 mg/dL (70-99) White Blood Count 47.1 x10^3/uL (4.0-11.0) Red Blood Count 2.42 x10^6/uL (3.50-5.40) Hemoglobin 7.0 g/dL (12.0-15.5) Hematocrit 21.5 % (36.0-47.0) Mean Corpuscular Volume 89 fL (79-100) Mean Corpuscular Hemoglobin 29 pg (25-35) Mean Corpuscular Hemoglobin Concent 33 g/dL (31-37) Red Cell Distribution Width 16.4 % (11.5-14.5) Platelet Count 292 x10^3/uL (140-400) Neutrophils (%) (Auto) 88 % (31-73) Lymphocytes (%) (Auto) 9 % (24-48) Monocytes (%) (Auto) 3 % (0-9) Eosinophils (%) (Auto) 0 % (0-3) Basophils (%) (Auto) 0 % (0-3) Neutrophils # (Auto) 41.5 x10^3/uL (1.8-7.7) Lymphocytes # (Auto) 4.1 x10^3/uL (1.0-4.8) Monocytes # (Auto) 1.3 x10^3/uL (0.0-1.1) Eosinophils # (Auto) 0.1 x10^3/uL (0.0-0.7) Basophils # (Auto) 0.1 x10^3/uL (0.0-0.2) Sodium Level 139 mmol/L (136-145) Potassium Level 3.9 mmol/L (3.5-5.1) Chloride Level 106 mmol/L (98-107) Carbon Dioxide Level 28 mmol/L (21-32) Anion Gap 5 (6-14) Blood Urea Nitrogen 21 mg/dL (7-20) Creatinine 0.6 mg/dL (0.6-1.0) Estimated GFR (Cockcroft-Gault) 107.2 Glucose Level 162 mg/dL (70-99) Calcium Level 7.4 mg/dL (8.5-10.1) Assessment and Plan Assessmemt and Plan Problems Medical Problems: (1) Abdominal hemorrhage Status: Acute (2) Generalized weakness Status: Acute (3) Lactic acidosis Status: Acute (4) Leukocytosis Status: Acute Comment Review of Relevant I have reviewed the following items mustapha (where applicable) has been applied. Labs Laboratory Tests Test 11/01/19 12:55 11/01/19 13:50 11/01/19 17:07 11/01/19 18:00 White Blood Count 81.2 x10^3/uL (4.0-11.0) Red Blood Count 3.14 x10^6/uL (3.50-5.40) Hemoglobin 9.1 g/dL (12.0-15.5) Hematocrit 28.3 % (36.0-47.0) Mean Corpuscular Volume 90 fL (79-100) Mean Corpuscular Hemoglobin 29 pg (25-35) Mean Corpuscular Hemoglobin Concent 32 g/dL (31-37) Red Cell Distribution Width 15.3 % (11.5-14.5) Platelet Count 527 x10^3/uL (140-400) Neutrophils (%) (Auto) 90 % (31-73) Lymphocytes (%) (Auto) 7 % (24-48) Monocytes (%) (Auto) 3 % (0-9) Eosinophils (%) (Auto) 0 % (0-3) Basophils (%) (Auto) 1 % (0-3) Neutrophils # (Auto) 72.9 x10^3/uL (1.8-7.7) Lymphocytes # (Auto) 5.5 x10^3/uL (1.0-4.8) Monocytes # (Auto) 2.0 x10^3/uL (0.0-1.1) Eosinophils # (Auto) 0.4 x10^3/uL (0.0-0.7) Basophils # (Auto) 0.4 x10^3/uL (0.0-0.2) Segmented Neutrophils % 61 % (35-66) Band Neutrophils % 11 % (0-9) Lymphocytes % 4 % (24-48) Monocytes % 2 % (0-10) Metamyelocytes % 6 % (0-0) Myelocytes % 15 % (0-0) Promyelocytes % 1 % (0-0) Platelet Estimate Increased (ADEQUATE) Large Platelets Few Giant Platelets Occ Polychromasia Slight Prothrombin Time 14.8 SEC (11.7-14.0) Prothromb Time International Ratio 1.2 (0.8-1.1) Activated Partial Thromboplast Time 34 SEC (24-38) Sodium Level 135 mmol/L (136-145) Potassium Level 4.2 mmol/L (3.5-5.1) Chloride Level 100 mmol/L (98-107) Carbon Dioxide Level 28 mmol/L (21-32) Anion Gap 7 (6-14) Blood Urea Nitrogen 31 mg/dL (7-20) Creatinine 1.0 mg/dL (0.6-1.0) Estimated GFR (Cockcroft-Gault) 59.4 BUN/Creatinine Ratio 31 (6-20) Glucose Level 364 mg/dL (70-99) Calcium Level 8.3 mg/dL (8.5-10.1) Magnesium Level 1.8 mg/dL (1.8-2.4) Total Bilirubin 0.5 mg/dL (0.2-1.0) Aspartate Amino Transf (AST/SGOT) 32 U/L (15-37) Alanine Aminotransferase (ALT/SGPT) 56 U/L (14-59) Alkaline Phosphatase 61 U/L (46-116) Creatine Kinase 23 U/L (26-192) Troponin I Quantitative < 0.017 ng/mL (0.000-0.055) Total Protein 6.0 g/dL (6.4-8.2) Albumin 3.0 g/dL (3.4-5.0) Albumin/Globulin Ratio 1.0 (1.0-1.7) Lactic Acid Level 2.6 mmol/L (0.4-2.0) 2.3 mmol/L (0.4-2.0) Glucose (Fingerstick) 248 mg/dL (70-99) Test 11/01/19 20:46 11/02/19 04:45 11/02/19 07:47 11/02/19 11:41 Glucose (Fingerstick) 165 mg/dL (70-99) 203 mg/dL (70-99) 207 mg/dL (70-99) White Blood Count 74.2 x10^3/uL (4.0-11.0) Red Blood Count 2.33 x10^6/uL (3.50-5.40) Hemoglobin 6.6 g/dL (12.0-15.5) Hematocrit 21.3 % (36.0-47.0) Mean Corpuscular Volume 91 fL (79-100) Mean Corpuscular Hemoglobin 28 pg (25-35) Mean Corpuscular Hemoglobin Concent 31 g/dL (31-37) Red Cell Distribution Width 15.7 % (11.5-14.5) Platelet Count 450 x10^3/uL (140-400) Neutrophils (%) (Auto) 85 % (31-73) Lymphocytes (%) (Auto) 12 % (24-48) Monocytes (%) (Auto) 3 % (0-9) Eosinophils (%) (Auto) 0 % (0-3) Basophils (%) (Auto) 0 % (0-3) Neutrophils # (Auto) 62.9 x10^3/uL (1.8-7.7) Lymphocytes # (Auto) 8.5 x10^3/uL (1.0-4.8) Monocytes # (Auto) 2.3 x10^3/uL (0.0-1.1) Eosinophils # (Auto) 0.3 x10^3/uL (0.0-0.7) Basophils # (Auto) 0.2 x10^3/uL (0.0-0.2) Sodium Level 137 mmol/L (136-145) Potassium Level 4.2 mmol/L (3.5-5.1) Chloride Level 103 mmol/L (98-107) Carbon Dioxide Level 28 mmol/L (21-32) Anion Gap 6 (6-14) Blood Urea Nitrogen 29 mg/dL (7-20) Creatinine 0.9 mg/dL (0.6-1.0) Estimated GFR (Cockcroft-Gault) 67.1 Glucose Level 189 mg/dL (70-99) Calcium Level 7.5 mg/dL (8.5-10.1) Iron Level 27 ug/dL (50-170) Total Iron Binding Capacity 233 ug/dL (250-450) Iron Saturation 12 % (15-34) Ferritin 82 ng/mL (8-252) Test 11/02/19 12:25 11/02/19 16:54 11/02/19 18:13 11/02/19 21:20 Hemoglobin 8.5 g/dL (12.0-15.5) 8.0 g/dL (12.0-15.5) Hematocrit 26.5 % (36.0-47.0) 24.7 % (36.0-47.0) Mean Corpuscular Hemoglobin Concent 32 g/dL (31-37) 33 g/dL (31-37) Glucose (Fingerstick) 184 mg/dL (70-99) 222 mg/dL (70-99) Test 11/03/19 06:30 White Blood Count 47.1 x10^3/uL (4.0-11.0) Red Blood Count 2.42 x10^6/uL (3.50-5.40) Hemoglobin 7.0 g/dL (12.0-15.5) Hematocrit 21.5 % (36.0-47.0) Mean Corpuscular Volume 89 fL (79-100) Mean Corpuscular Hemoglobin 29 pg (25-35) Mean Corpuscular Hemoglobin Concent 33 g/dL (31-37) Red Cell Distribution Width 16.4 % (11.5-14.5) Platelet Count 292 x10^3/uL (140-400) Neutrophils (%) (Auto) 88 % (31-73) Lymphocytes (%) (Auto) 9 % (24-48) Monocytes (%) (Auto) 3 % (0-9) Eosinophils (%) (Auto) 0 % (0-3) Basophils (%) (Auto) 0 % (0-3) Neutrophils # (Auto) 41.5 x10^3/uL (1.8-7.7) Lymphocytes # (Auto) 4.1 x10^3/uL (1.0-4.8) Monocytes # (Auto) 1.3 x10^3/uL (0.0-1.1) Eosinophils # (Auto) 0.1 x10^3/uL (0.0-0.7) Basophils # (Auto) 0.1 x10^3/uL (0.0-0.2) Sodium Level 139 mmol/L (136-145) Potassium Level 3.9 mmol/L (3.5-5.1) Chloride Level 106 mmol/L (98-107) Carbon Dioxide Level 28 mmol/L (21-32) Anion Gap 5 (6-14) Blood Urea Nitrogen 21 mg/dL (7-20) Creatinine 0.6 mg/dL (0.6-1.0) Estimated GFR (Cockcroft-Gault) 107.2 Glucose Level 162 mg/dL (70-99) Calcium Level 7.4 mg/dL (8.5-10.1) Laboratory Tests Test 11/02/19 11:41 11/02/19 12:25 11/02/19 16:54 11/02/19 18:13 Glucose (Fingerstick) 207 mg/dL (70-99) 184 mg/dL (70-99) Hemoglobin 8.5 g/dL (12.0-15.5) 8.0 g/dL (12.0-15.5) Hematocrit 26.5 % (36.0-47.0) 24.7 % (36.0-47.0) Mean Corpuscular Hemoglobin Concent 32 g/dL (31-37) 33 g/dL (31-37) Test 11/02/19 21:20 11/03/19 06:30 Glucose (Fingerstick) 222 mg/dL (70-99) White Blood Count 47.1 x10^3/uL (4.0-11.0) Red Blood Count 2.42 x10^6/uL (3.50-5.40) Hemoglobin 7.0 g/dL (12.0-15.5) Hematocrit 21.5 % (36.0-47.0) Mean Corpuscular Volume 89 fL (79-100) Mean Corpuscular Hemoglobin 29 pg (25-35) Mean Corpuscular Hemoglobin Concent 33 g/dL (31-37) Red Cell Distribution Width 16.4 % (11.5-14.5) Platelet Count 292 x10^3/uL (140-400) Neutrophils (%) (Auto) 88 % (31-73) Lymphocytes (%) (Auto) 9 % (24-48) Monocytes (%) (Auto) 3 % (0-9) Eosinophils (%) (Auto) 0 % (0-3) Basophils (%) (Auto) 0 % (0-3) Neutrophils # (Auto) 41.5 x10^3/uL (1.8-7.7) Lymphocytes # (Auto) 4.1 x10^3/uL (1.0-4.8) Monocytes # (Auto) 1.3 x10^3/uL (0.0-1.1) Eosinophils # (Auto) 0.1 x10^3/uL (0.0-0.7) Basophils # (Auto) 0.1 x10^3/uL (0.0-0.2) Sodium Level 139 mmol/L (136-145) Potassium Level 3.9 mmol/L (3.5-5.1) Chloride Level 106 mmol/L (98-107) Carbon Dioxide Level 28 mmol/L (21-32) Anion Gap 5 (6-14) Blood Urea Nitrogen 21 mg/dL (7-20) Creatinine 0.6 mg/dL (0.6-1.0) Estimated GFR (Cockcroft-Gault) 107.2 Glucose Level 162 mg/dL (70-99) Calcium Level 7.4 mg/dL (8.5-10.1) Microbiology 12/12/19 Blood Culture - Preliminary, Resulted NO GROWTH AFTER 1 DAY Medications Current Medications Sodium Chloride 500 ml @ 500 mls/hr 1X ONCE IV Last administered on 11/01/19at 13:00; Start 11/01/19 at 13:00; Stop 11/01/19 at 13:59; Status DC Ondansetron HCl (Zofran) 4 mg 1X ONCE IV Last administered on 11/01/19at 13: 26; Start 11/01/19 at 13:00; Stop 11/01/19 at 13:13; Status DC Hydromorphone HCl (Dilaudid) 0.5 mg 1X STAT IVP Last administered on 11/01/19at 13:26; Start 11/01/19 at 12:59; Stop 11/01/19 at 13:13; Status DC Iohexol (Omnipaque 300 Mg/ml) 75 ml 1X ONCE IV Last administered on 11/01/19at 14:08; Start 11/01/19 at 13:45; Stop 11/01/19 at 13:46; Status DC Info (CONTRAST GIVEN -- Rx MONITORING) 1 each PRN DAILY PRN MC SEE COMMENTS; Start 11/01/19 at 14:00; Stop 11/03/19 at 13:59 Hydromorphone HCl (Dilaudid) 0.5 mg 1X STAT IVP Last administered on 11/01/19at 16:53; Start 11/01/19 at 16:21; Stop 11/01/19 at 16:23; Status DC Sodium Chloride 1,000 ml @ 1,000 mls/hr 1X ONCE IV Last administered on 11/01/19at 16:30; Start 11/01/19 at 16:30; Stop 11/01/19 at 17:29; Status DC Sodium Chloride 500 ml @ 500 mls/hr 1X ONCE IV Last administered on 11/01/19at 16:30; Start 11/01/19 at 16:30; Stop 11/01/19 at 17:29; Status DC Albuterol Sulfate (Ventolin Neb Soln) 2.5 mg PRN Q6HRS PRN INH SHORTNESS OF BREATH; Start 11/01/19 at 16:30 Alprazolam (Xanax) 0.25 mg PRN TID PRN PO anxiety; Start 11/01/19 at 16:30; Stop 11/01/19 at 17:11; Status DC Amlodipine Besylate (Norvasc) 5 mg DAILY PO ; Start 11/02/19 at 09:00 Cyclosporine (Restasis) 1 drop BID OU Last administered on 11/02/19at 21:16; Start 11/01/19 at 21:00 Fluticasone Propionate (Flonase) 2 spray DAILY NS ; Start 11/02/19 at 09:00 Lactobacillus Rhamnosus (Culturelle) 1 cap BID PO Last administered on 11/02/19 21:16; Start 11/01/19 at 21:00 Lidocaine (Lidoderm) 1 patch DAILY TP ; Start 11/02/19 at 09:00; Stop 11/01/19 at 20:34; Status DC Metoprolol Succinate (Toprol Xl) 100 mg HS PO Last administered on 11/01/19 20:41; Start 11/01/19 at 21:00 Nystatin (Nystop) 1 raza BID TP Last administered on 11/02/19 21:18; Start 11/01/19 at 21:00 Pantoprazole Sodium (Protonix) 40 mg DAILYAC PO Last administered on 11/02/19 07:50; Start 11/02/19 at 07:30 Senna/Docusate Sodium (Senna Plus) 1 tab BID PO Last administered on 11/02/19 21:16; Start 11/01/19 at 21:00 Sucralfate (Carafate) 1 gm TIDAC PO Last administered on 11/02/19 16:55; Start 11/01/19 at 17:30 Tramadol HCl (Ultram) 50 mg PRN Q8HRS PRN PO PAIN; Start 11/01/19 at 16:30; Stop 11/01/19 at 19:43; Status DC Insulin Glargine (Lantus Syringe) 30 unit QHS SQ Last administered on 11/02/19 21:18; Start 11/01/19 at 21:00 Ondansetron HCl (Zofran Odt) 8 mg PRN Q8HRS PRN PO NAUSEA/VOMITING Last administered on 11/02/19 07:48; Start 11/01/19 at 17:15 Polyethylene Glycol (miraLAX PACKET) 17 gm PRN DAILY PRN PO CONSTIPATION Last administered on 11/02/19 12:42; Start 11/01/19 at 17:11 Atorvastatin Calcium (Lipitor) 80 mg QHS PO Last administered on 11/02/19 21:16; Start 11/01/19 at 21:00 Insulin Human Lispro (HumaLOG) 0-9 UNITS TIDAC SQ Last administered on 11/02/19 21:22; Start 11/01/19 at 16:30 Dextrose (Dextrose 50%-Water Syringe) 12.5 gm PRN Q15MIN PRN IV SEE COMMENTS; Start 11/01/19 at 16:30 Ondansetron HCl (Zofran) 4 mg PRN Q8HRS PRN IV NAUSEA/VOMITING; Start 11/01/19 at 16:30; Stop 11/02/19 at 16:29; Status DC Alprazolam (Xanax) 0.25 mg PRN TID PRN PO anxiety Last administered on 11/02/19 16:55; Start 11/01/19 at 17:11 Miscellaneous (Lidoderm Patch Removal) 1 ea QHS MC ; Start 11/01/19 at 21:00; Stop 11/01/19 at 20:34; Status DC Ceftriaxone Sodium (Rocephin) 1 gm QHS IVP Last administered on 11/02/19 21:16; Start 11/01/19 at 18:45 Tramadol HCl (Ultram) 50 mg PRN Q8HRS PRN PO PAIN Last administered on 11/03/19 08:49; Start 11/01/19 at 19:45 Hydromorphone HCl (Dilaudid) 1 mg PRN Q4HRS PRN IV PAIN Last administered on 11/03/19 06:10; Start 11/01/19 at 20:15 Lidocaine (Lidoderm) 1 patch QHS TP Last administered on 11/02/19 21:17; Start 11/01/19 at 21:00 Miscellaneous (Lidoderm Patch Removal) 1 ea DAILY MC Last administered on 11/02/19at 09:00; Start 11/02/19 at 09:00 Albumin Human 500 ml @ 125 mls/hr 1X ONCE IV ; Start 11/02/19 at 02:00; Stop 11/02/19 at 05:59; Status Cancel Acetaminophen (Tylenol) 650 mg 1X PRN PRN PO PRE-TRANSFUSION; Start 11/02/19 at 06:45 Diphenhydramine HCl (Benadryl Oral Elixir) 12.5 mg 1X PRN PRN PO PRE- TRANSFUSION; Start 11/02/19 at 06:45 Diphenhydramine HCl (Benadryl) 25 mg PRN 1X PRN PO PRE-TRANSFUSION; Start 11/02/19 at 06:45 Lactulose (LACTULOSE 300ML for RECTAL) 200 gm Q6HRS [place] Last administered on 11/02/19at 18:00; Start 11/02/19 at 18:00 Sodium Chloride 1,000 ml @ 100 mls/hr Q10H IV Last administered on 11/03/19at 07:51; Start 11/02/19 at 12:00 Active Scripts Active Enoxaparin Sodium 120 Mg/0.8 Ml Disp.syrin 120 Mg SQ Q12HR 28 Days Dexamethasone 4 Mg Tablet 4 Mg PO BID 14 Days Culturelle (Lactobacillus Rhamnosus Gg) 1 Each Cap.sprink 1 Cap PO BID 30 Days Amlodipine Besylate 5 Mg Tablet 5 Mg PO DAILY 30 Days Cefdinir 300 Mg Capsule 300 Mg PO BID 10 Days Reported Cymbalta (Duloxetine Hcl) 60 Mg Capsule.dr 1 Cap PO BID Lyrica (Pregabalin) 150 Mg Capsule 1 Cap PO BID Novolog (Insulin Aspart) 100 Unit/1 Ml Cartridge 10-45 Unit SQ QIDACHS Levemir (Insulin Detemir) 100 Unit/1 Ml Vial 30 Unit SQ HS Linzess (Linaclotide) 145 Mcg Capsule 145 Mcg PO PRN PRN Crestor (Rosuvastatin Calcium) 40 Mg Tablet 0.5 Tab PO DAILY Polyethylene Glycol 3350 2,500 Gm Powder 17 Gm PO PRN PRN Xanax (Alprazolam) 1 Mg Tablet 1 Tab PO TID Restasis (Cyclosporine) 1 Each Droperette 1 Drop EACHEYE BID Proair Hfa Inhaler (Albuterol Sulfate) 8.5 Gm Hfa.aer.ad 1 Puff INH PRN Q6HRS PRN Tramadol Hcl 50 Mg Tablet 1 Tab PO PRN Q8HRS PRN Ondansetron Hcl 4 Mg Tablet 2 Tab PO PRN Q8HRS PRN Nystatin 15 Gm Powder 1 [place]aza TP BID Lidocaine PATCH (Lidocaine) 1 Each Adh..patch 1 Each TP DAILY Fluticasone Propionate Nasal [place] (Fluticasone Propionate) 16 Gm [place].susp 2 [place] NS DAILY Percocet 5-325 Mg Tablet (Oxycodone/Acetaminophen) 1 Each Tablet 1-2 Tab PO Q4-6HRS PRN LAST DOSE AT NEXT DOSE Senna-Docusate Sodium Tablet (Sennosides/Docusate Sodium) 1 Each Tablet 1 Each PO BID LAST DOSE THIS AM NEXT DOSE TONIGHT Robaxin-750 (Methocarbamol) 750 Mg Tablet 1 Tab PO TID LAST DOSE AT 1400 (2PM) MAY HAVE THE NEXT DOSE AT 10 PM Protonix (Pantoprazole Sodium) 40 Mg Tablet.dr 40 Mg PO DAILY LST DOSE THIS AM NEXT DOSE TOMORROW AM Carafate (Sucralfate) 1 Gm Tablet 1 Tab PO TID Meds not given this hospital admission. May resume home medications as approved by Physician. MAY TAKE WHEN AVAILABLE Xarelto (Rivaroxaban) 15 Mg Tablet 15 Mg PO DAILY Meds not given this hospital admission. May resume home medications as approved by Physician. MAY RESUME WHEN AVAILABLE Metoprolol Succinate ( Xl ) (Metoprolol Succinate) 100 Mg Tab.er.24h 100 Mg PO HS LAST DOSE THIS AM NEXT DOSE TOMORROW AM Vitals/I & O Vital Sign - Last 24 Hours 11/02/19 11/02/19 11/02/19 11/02/19 09:30 09:45 10:00 10:19 Temp 99.3 99.3 Pulse 86 82 86 84 Resp 20 22 B/P (MAP) 91/62 (72) 95/57 (70) 97/60 (72) 97/60 Pulse Ox 96 O2 Delivery Room Air 11/02/19 11/02/19 11/02/19 11/02/19 10:34 10:53 11:00 11:32 Temp 99.3 98.6 99.3 98.6 Pulse 80 80 77 Resp 18 18 16 B/P (MAP) 98/64 96/59 (71) 116/65 Pulse Ox 99 O2 Delivery Room Air Room Air 11/02/19 11/02/19 11/02/19/13/19 12:00 12:00 13:00 13:16 Temp 98.6 98.6 Pulse 85 81 Resp 18 20 22 B/P (MAP) 101/54 (70) 107/74 (85) Pulse Ox 99 93 100 O2 Delivery Room Air Room Air Room Air Room Air 11/02/19 11/02/19 11/02/19 11/02/19 13:38 14:00 14:29 14:29 Pulse 79 Resp 22 20 16 16 B/P (MAP) 95/53 (67) Pulse Ox 98 92 95 95 O2 Delivery Room Air Room Air Room Air Room Air 11/02/19 11/02/19 11/02/19 11/02/19 15:00 15:55 16:00 17:00 Temp 98.9 98.9 Pulse 83 80 84 Resp 20 18 18 B/P (MAP) 97/55 (69) 87/63 (71) 115/74 (88) Pulse Ox 97 79 98 O2 Delivery Room Air Room Air Room Air Room Air 11/02/19 11/02/19 11/02/19 11/02/19 18:00 18:03 18:35 19:00 Pulse 84 97 Resp 18 20 16 22 B/P (MAP) 92/58 (69) 93/52 (66) Pulse Ox 98 99 99 98 O2 Delivery Room Air Room Air Room Air Room Air 11/02/19 11/02/19 11/02/19 11/02/19 20:00 20:00 21:00 21:00 Pulse 99 99 91 Resp 22 22 B/P (MAP) 96/55 (69) 96/55 101/56 (71) Pulse Ox 98 98 O2 Delivery Room Air Room Air Room Air 11/02/19 11/02/19 11/02/19 11/02/19 22:00 22:25 23:00 23:11 Pulse 94 94 Resp 20 20 B/P (MAP) 104/56 (72) 106/58 (74) Pulse Ox 98 98 98 98 O2 Delivery Room Air Room Air Room Air Room Air O2 Flow Rate 2.0 2.0 11/02/19 11/02/19 11/03/19 11/03/19 23:59 23:59 01:00 02:00 Pulse 93 92 88 Resp 20 20 16 B/P (MAP) 102/61 (75) 94/51 (65) 96/48 (64) Pulse Ox 95 95 95 O2 Delivery Room Air Room Air Room Air Room Air 11/03/19 11/03/19 11/03/19 11/03/19 03:00 04:00 04:00 05:00 Temp 98.6 98.6 98.6 98.6 Pulse 91 86 86 Resp 18 18 18 B/P (MAP) 90/52 (65) 87/50 (62) 87/50 (62) Pulse Ox 97 97 97 O2 Delivery Room Air Room Air Room Air Room Air 11/03/19 11/03/19 11/03/19 11/03/19 06:00 06:10 07:00 08:49 Pulse 100 94 Resp 20 20 20 B/P (MAP) 90/52 (65) 96/57 (70) Pulse Ox 97 97 96 98 O2 Delivery Room Air Room Air Room Air Room Air O2 Flow Rate 2.0 Intake and Output 11/02/19 11/02/19 11/03/19 15:00 23:00 07:00 Intake Total 2300 ml 794 ml 1025 ml Output Total 605 ml 395 ml 500 ml Balance 1695 ml 399 ml 525 ml Nutrition Consultation Dietary Evaluation: Recommendations by RD: Increase Calorie Intake, Protein supplementation Comments: REC ADA/cardiac diet, will adjust diet order as needed REC glucerna w/dinner trays and prn Ok to liberalize diet as needed to promote PO intake Expected Outcomes/Goals: PO intake to meet >75% est needs Interpretation of weight loss: >5% in 1 month Malnutrition Findings: Food and Nutrition Intake (Sev: <50% est energy req 5days Weight Status: Morbidly Obese DEVEN BAZZI MD Nov 03, 2019 09:27
--- NOTE | 2019-11-03 09:32 | PDOC ---
SURGICAL PROGRESS NOTE Subjective Pt reports feeling somewhat better today, kayla PO, passed stool with enema yesterday Vital Signs Vital Signs Date Time Temp Pulse Resp B/P (MAP) Pulse Ox O2 Delivery O2 Flow Rate FiO2 11/03/19 08:49 20 98 Room Air 11/03/19 07:00 94 96/57 (70) 11/03/19 06:10 2.0 11/03/19 05:00 98.6 98.6 I&O Intake and Output 11/03/19 07:00 Intake Total 4119 ml Output Total 1500 ml Balance 2619 ml Intake Oral 660 ml IV Total 1579 ml Blood Product IV Normal Saline Flush 1380 ml Other 500 ml Output Urine Total 1500 ml General: Alert, Cooperative, No acute distress Abdomen: Soft, Other (obese, diffuse TTP over ecchymosis) Labs Laboratory Tests Test 11/01/19 12:55 11/01/19 13:50 11/01/19 17:07 11/01/19 18:00 White Blood Count 81.2 x10^3/uL (4.0-11.0) Red Blood Count 3.14 x10^6/uL (3.50-5.40) Hemoglobin 9.1 g/dL (12.0-15.5) Hematocrit 28.3 % (36.0-47.0) Mean Corpuscular Volume 90 fL (79-100) Mean Corpuscular Hemoglobin 29 pg (25-35) Mean Corpuscular Hemoglobin Concent 32 g/dL (31-37) Red Cell Distribution Width 15.3 % (11.5-14.5) Platelet Count 527 x10^3/uL (140-400) Neutrophils (%) (Auto) 90 % (31-73) Lymphocytes (%) (Auto) 7 % (24-48) Monocytes (%) (Auto) 3 % (0-9) Eosinophils (%) (Auto) 0 % (0-3) Basophils (%) (Auto) 1 % (0-3) Neutrophils # (Auto) 72.9 x10^3/uL (1.8-7.7) Lymphocytes # (Auto) 5.5 x10^3/uL (1.0-4.8) Monocytes # (Auto) 2.0 x10^3/uL (0.0-1.1) Eosinophils # (Auto) 0.4 x10^3/uL (0.0-0.7) Basophils # (Auto) 0.4 x10^3/uL (0.0-0.2) Segmented Neutrophils % 61 % (35-66) Band Neutrophils % 11 % (0-9) Lymphocytes % 4 % (24-48) Monocytes % 2 % (0-10) Metamyelocytes % 6 % (0-0) Myelocytes % 15 % (0-0) Promyelocytes % 1 % (0-0) Platelet Estimate Increased (ADEQUATE) Large Platelets Few Giant Platelets Occ Polychromasia Slight Prothrombin Time 14.8 SEC (11.7-14.0) Prothromb Time International Ratio 1.2 (0.8-1.1) Activated Partial Thromboplast Time 34 SEC (24-38) Sodium Level 135 mmol/L (136-145) Potassium Level 4.2 mmol/L (3.5-5.1) Chloride Level 100 mmol/L (98-107) Carbon Dioxide Level 28 mmol/L (21-32) Anion Gap 7 (6-14) Blood Urea Nitrogen 31 mg/dL (7-20) Creatinine 1.0 mg/dL (0.6-1.0) Estimated GFR (Cockcroft-Gault) 59.4 BUN/Creatinine Ratio 31 (6-20) Glucose Level 364 mg/dL (70-99) Calcium Level 8.3 mg/dL (8.5-10.1) Magnesium Level 1.8 mg/dL (1.8-2.4) Total Bilirubin 0.5 mg/dL (0.2-1.0) Aspartate Amino Transf (AST/SGOT) 32 U/L (15-37) Alanine Aminotransferase (ALT/SGPT) 56 U/L (14-59) Alkaline Phosphatase 61 U/L (46-116) Creatine Kinase 23 U/L (26-192) Troponin I Quantitative < 0.017 ng/mL (0.000-0.055) Total Protein 6.0 g/dL (6.4-8.2) Albumin 3.0 g/dL (3.4-5.0) Albumin/Globulin Ratio 1.0 (1.0-1.7) Lactic Acid Level 2.6 mmol/L (0.4-2.0) 2.3 mmol/L (0.4-2.0) Glucose (Fingerstick) 248 mg/dL (70-99) Test 11/01/19 20:46 11/02/19 04:45 11/02/19 07:47 11/02/19 11:41 Glucose (Fingerstick) 165 mg/dL (70-99) 203 mg/dL (70-99) 207 mg/dL (70-99) White Blood Count 74.2 x10^3/uL (4.0-11.0) Red Blood Count 2.33 x10^6/uL (3.50-5.40) Hemoglobin 6.6 g/dL (12.0-15.5) Hematocrit 21.3 % (36.0-47.0) Mean Corpuscular Volume 91 fL (79-100) Mean Corpuscular Hemoglobin 28 pg (25-35) Mean Corpuscular Hemoglobin Concent 31 g/dL (31-37) Red Cell Distribution Width 15.7 % (11.5-14.5) Platelet Count 450 x10^3/uL (140-400) Neutrophils (%) (Auto) 85 % (31-73) Lymphocytes (%) (Auto) 12 % (24-48) Monocytes (%) (Auto) 3 % (0-9) Eosinophils (%) (Auto) 0 % (0-3) Basophils (%) (Auto) 0 % (0-3) Neutrophils # (Auto) 62.9 x10^3/uL (1.8-7.7) Lymphocytes # (Auto) 8.5 x10^3/uL (1.0-4.8) Monocytes # (Auto) 2.3 x10^3/uL (0.0-1.1) Eosinophils # (Auto) 0.3 x10^3/uL (0.0-0.7) Basophils # (Auto) 0.2 x10^3/uL (0.0-0.2) Sodium Level 137 mmol/L (136-145) Potassium Level 4.2 mmol/L (3.5-5.1) Chloride Level 103 mmol/L (98-107) Carbon Dioxide Level 28 mmol/L (21-32) Anion Gap 6 (6-14) Blood Urea Nitrogen 29 mg/dL (7-20) Creatinine 0.9 mg/dL (0.6-1.0) Estimated GFR (Cockcroft-Gault) 67.1 Glucose Level 189 mg/dL (70-99) Calcium Level 7.5 mg/dL (8.5-10.1) Iron Level 27 ug/dL (50-170) Total Iron Binding Capacity 233 ug/dL (250-450) Iron Saturation 12 % (15-34) Ferritin 82 ng/mL (8-252) Test 11/02/19 12:25 11/02/19 16:54 11/02/19 18:13 11/02/19 21:20 Hemoglobin 8.5 g/dL (12.0-15.5) 8.0 g/dL (12.0-15.5) Hematocrit 26.5 % (36.0-47.0) 24.7 % (36.0-47.0) Mean Corpuscular Hemoglobin Concent 32 g/dL (31-37) 33 g/dL (31-37) Glucose (Fingerstick) 184 mg/dL (70-99) 222 mg/dL (70-99) Test 11/03/19 06:30 White Blood Count 47.1 x10^3/uL (4.0-11.0) Red Blood Count 2.42 x10^6/uL (3.50-5.40) Hemoglobin 7.0 g/dL (12.0-15.5) Hematocrit 21.5 % (36.0-47.0) Mean Corpuscular Volume 89 fL (79-100) Mean Corpuscular Hemoglobin 29 pg (25-35) Mean Corpuscular Hemoglobin Concent 33 g/dL (31-37) Red Cell Distribution Width 16.4 % (11.5-14.5) Platelet Count 292 x10^3/uL (140-400) Neutrophils (%) (Auto) 88 % (31-73) Lymphocytes (%) (Auto) 9 % (24-48) Monocytes (%) (Auto) 3 % (0-9) Eosinophils (%) (Auto) 0 % (0-3) Basophils (%) (Auto) 0 % (0-3) Neutrophils # (Auto) 41.5 x10^3/uL (1.8-7.7) Lymphocytes # (Auto) 4.1 x10^3/uL (1.0-4.8) Monocytes # (Auto) 1.3 x10^3/uL (0.0-1.1) Eosinophils # (Auto) 0.1 x10^3/uL (0.0-0.7) Basophils # (Auto) 0.1 x10^3/uL (0.0-0.2) Sodium Level 139 mmol/L (136-145) Potassium Level 3.9 mmol/L (3.5-5.1) Chloride Level 106 mmol/L (98-107) Carbon Dioxide Level 28 mmol/L (21-32) Anion Gap 5 (6-14) Blood Urea Nitrogen 21 mg/dL (7-20) Creatinine 0.6 mg/dL (0.6-1.0) Estimated GFR (Cockcroft-Gault) 107.2 Glucose Level 162 mg/dL (70-99) Calcium Level 7.4 mg/dL (8.5-10.1) Laboratory Tests Test 11/02/19 11:41 11/02/19 12:25 11/02/19 16:54 11/02/19 18:13 Glucose (Fingerstick) 207 mg/dL (70-99) 184 mg/dL (70-99) Hemoglobin 8.5 g/dL (12.0-15.5) 8.0 g/dL (12.0-15.5) Hematocrit 26.5 % (36.0-47.0) 24.7 % (36.0-47.0) Mean Corpuscular Hemoglobin Concent 32 g/dL (31-37) 33 g/dL (31-37) Test 11/02/19 21:20 11/03/19 06:30 Glucose (Fingerstick) 222 mg/dL (70-99) White Blood Count 47.1 x10^3/uL (4.0-11.0) Red Blood Count 2.42 x10^6/uL (3.50-5.40) Hemoglobin 7.0 g/dL (12.0-15.5) Hematocrit 21.5 % (36.0-47.0) Mean Corpuscular Volume 89 fL (79-100) Mean Corpuscular Hemoglobin 29 pg (25-35) Mean Corpuscular Hemoglobin Concent 33 g/dL (31-37) Red Cell Distribution Width 16.4 % (11.5-14.5) Platelet Count 292 x10^3/uL (140-400) Neutrophils (%) (Auto) 88 % (31-73) Lymphocytes (%) (Auto) 9 % (24-48) Monocytes (%) (Auto) 3 % (0-9) Eosinophils (%) (Auto) 0 % (0-3) Basophils (%) (Auto) 0 % (0-3) Neutrophils # (Auto) 41.5 x10^3/uL (1.8-7.7) Lymphocytes # (Auto) 4.1 x10^3/uL (1.0-4.8) Monocytes # (Auto) 1.3 x10^3/uL (0.0-1.1) Eosinophils # (Auto) 0.1 x10^3/uL (0.0-0.7) Basophils # (Auto) 0.1 x10^3/uL (0.0-0.2) Sodium Level 139 mmol/L (136-145) Potassium Level 3.9 mmol/L (3.5-5.1) Chloride Level 106 mmol/L (98-107) Carbon Dioxide Level 28 mmol/L (21-32) Anion Gap 5 (6-14) Blood Urea Nitrogen 21 mg/dL (7-20) Creatinine 0.6 mg/dL (0.6-1.0) Estimated GFR (Cockcroft-Gault) 107.2 Glucose Level 162 mg/dL (70-99) Calcium Level 7.4 mg/dL (8.5-10.1) Problem List Problems Medical Problems: (1) Abdominal hemorrhage Status: Acute (2) Generalized weakness Status: Acute (3) Lactic acidosis Status: Acute (4) Leukocytosis Status: Acute Assessment/Plan abd wall echymosis cont supportive care and avoid anticoagulants, transfuse MAXI FREIRE MD Nov 03, 2019 09:31
[2019-11-03] MEDS: SUCRALFATE 1 GM TABLET. PO SCH ×3 (09:35→16:52)
[2019-11-03] MEDS: cycloSPORINE 0.05% OPHTH DROPERETTE. OU SCH ×2 (09:35→21:11)
[2019-11-03] MEDS: SENNOSIDES/DOCUSATE 8.6/50MG TABLET. PO SCH ×2 (09:35→21:18)
[2019-11-03] MEDS: PANTOPRAZOLE 40 MG TABLET.DR. PO SCH (09:35)
[2019-11-03] MEDS: LACTOBACILLUS RHAMNOSUS GG 1 CAPSULE. PO SCH ×2 (09:35→21:18)
[2019-11-03] MEDS: NYSTATIN TOPICAL POWDER 15GM BOTTLE. TP SCH ×2 (09:38→21:20)
[2019-11-03] MEDS: FLUTICASONE 50MCG/NASAL SPRAY 16GM BOTTLE. NS SCH (09:39)
--- NOTE | 2019-11-03 09:40 | PDOC ---
PROGRESS NOTES Subjective Subjective Denies acute changes. ROS - some headache, reports pressure/pain abdomen, reports unchanged sensation Objective Objective Vital Signs Date Time Temp Pulse Resp B/P (MAP) Pulse Ox O2 Delivery O2 Flow Rate FiO2 11/03/19 08:49 20 98 Room Air 11/03/19 07:00 94 96/57 (70) 11/03/19 06:10 2.0 11/03/19 05:00 98.6 98.6 Intake and Output 11/03/19 07:03 Intake Total 4119 ml Output Total 1500 ml Balance 2619 ml Intake Oral 660 ml IV Total 1579 ml Blood Product IV Normal Saline Flush 1380 ml Other 500 ml Output Urine Total 1500 ml Physical Exam Physical Exam AAOx3, NAD, LLANES strength unchanged, sensation unchanged to LT Assessment Assessment Problems Medical Problems: (1) Abdominal hemorrhage Status: Acute (2) Generalized weakness Status: Acute (3) Lactic acidosis Status: Acute (4) Leukocytosis Status: Acute Plan Plan of Care -marrow bx pending -craniotomy on hold/too high risk at this time Comment Review of Relevant I have reviewed the following items mustapha (where applicable) has been applied. Labs Laboratory Tests Test 11/01/19 12:55 11/01/19 13:50 11/01/19 17:07 11/01/19 18:00 White Blood Count 81.2 x10^3/uL (4.0-11.0) Red Blood Count 3.14 x10^6/uL (3.50-5.40) Hemoglobin 9.1 g/dL (12.0-15.5) Hematocrit 28.3 % (36.0-47.0) Mean Corpuscular Volume 90 fL (79-100) Mean Corpuscular Hemoglobin 29 pg (25-35) Mean Corpuscular Hemoglobin Concent 32 g/dL (31-37) Red Cell Distribution Width 15.3 % (11.5-14.5) Platelet Count 527 x10^3/uL (140-400) Neutrophils (%) (Auto) 90 % (31-73) Lymphocytes (%) (Auto) 7 % (24-48) Monocytes (%) (Auto) 3 % (0-9) Eosinophils (%) (Auto) 0 % (0-3) Basophils (%) (Auto) 1 % (0-3) Neutrophils # (Auto) 72.9 x10^3/uL (1.8-7.7) Lymphocytes # (Auto) 5.5 x10^3/uL (1.0-4.8) Monocytes # (Auto) 2.0 x10^3/uL (0.0-1.1) Eosinophils # (Auto) 0.4 x10^3/uL (0.0-0.7) Basophils # (Auto) 0.4 x10^3/uL (0.0-0.2) Segmented Neutrophils % 61 % (35-66) Band Neutrophils % 11 % (0-9) Lymphocytes % 4 % (24-48) Monocytes % 2 % (0-10) Metamyelocytes % 6 % (0-0) Myelocytes % 15 % (0-0) Promyelocytes % 1 % (0-0) Platelet Estimate Increased (ADEQUATE) Large Platelets Few Giant Platelets Occ Polychromasia Slight Prothrombin Time 14.8 SEC (11.7-14.0) Prothromb Time International Ratio 1.2 (0.8-1.1) Activated Partial Thromboplast Time 34 SEC (24-38) Sodium Level 135 mmol/L (136-145) Potassium Level 4.2 mmol/L (3.5-5.1) Chloride Level 100 mmol/L (98-107) Carbon Dioxide Level 28 mmol/L (21-32) Anion Gap 7 (6-14) Blood Urea Nitrogen 31 mg/dL (7-20) Creatinine 1.0 mg/dL (0.6-1.0) Estimated GFR (Cockcroft-Gault) 59.4 BUN/Creatinine Ratio 31 (6-20) Glucose Level 364 mg/dL (70-99) Calcium Level 8.3 mg/dL (8.5-10.1) Magnesium Level 1.8 mg/dL (1.8-2.4) Total Bilirubin 0.5 mg/dL (0.2-1.0) Aspartate Amino Transf (AST/SGOT) 32 U/L (15-37) Alanine Aminotransferase (ALT/SGPT) 56 U/L (14-59) Alkaline Phosphatase 61 U/L (46-116) Creatine Kinase 23 U/L (26-192) Troponin I Quantitative < 0.017 ng/mL (0.000-0.055) Total Protein 6.0 g/dL (6.4-8.2) Albumin 3.0 g/dL (3.4-5.0) Albumin/Globulin Ratio 1.0 (1.0-1.7) Lactic Acid Level 2.6 mmol/L (0.4-2.0) 2.3 mmol/L (0.4-2.0) Glucose (Fingerstick) 248 mg/dL (70-99) Test 11/01/19 20:46 11/02/19 04:45 11/02/19 07:47 11/02/19 11:41 Glucose (Fingerstick) 165 mg/dL (70-99) 203 mg/dL (70-99) 207 mg/dL (70-99) White Blood Count 74.2 x10^3/uL (4.0-11.0) Red Blood Count 2.33 x10^6/uL (3.50-5.40) Hemoglobin 6.6 g/dL (12.0-15.5) Hematocrit 21.3 % (36.0-47.0) Mean Corpuscular Volume 91 fL (79-100) Mean Corpuscular Hemoglobin 28 pg (25-35) Mean Corpuscular Hemoglobin Concent 31 g/dL (31-37) Red Cell Distribution Width 15.7 % (11.5-14.5) Platelet Count 450 x10^3/uL (140-400) Neutrophils (%) (Auto) 85 % (31-73) Lymphocytes (%) (Auto) 12 % (24-48) Monocytes (%) (Auto) 3 % (0-9) Eosinophils (%) (Auto) 0 % (0-3) Basophils (%) (Auto) 0 % (0-3) Neutrophils # (Auto) 62.9 x10^3/uL (1.8-7.7) Lymphocytes # (Auto) 8.5 x10^3/uL (1.0-4.8) Monocytes # (Auto) 2.3 x10^3/uL (0.0-1.1) Eosinophils # (Auto) 0.3 x10^3/uL (0.0-0.7) Basophils # (Auto) 0.2 x10^3/uL (0.0-0.2) Sodium Level 137 mmol/L (136-145) Potassium Level 4.2 mmol/L (3.5-5.1) Chloride Level 103 mmol/L (98-107) Carbon Dioxide Level 28 mmol/L (21-32) Anion Gap 6 (6-14) Blood Urea Nitrogen 29 mg/dL (7-20) Creatinine 0.9 mg/dL (0.6-1.0) Estimated GFR (Cockcroft-Gault) 67.1 Glucose Level 189 mg/dL (70-99) Calcium Level 7.5 mg/dL (8.5-10.1) Iron Level 27 ug/dL (50-170) Total Iron Binding Capacity 233 ug/dL (250-450) Iron Saturation 12 % (15-34) Ferritin 82 ng/mL (8-252) Test 11/02/19 12:25 11/02/19 16:54 11/02/19 18:13 11/02/19 21:20 Hemoglobin 8.5 g/dL (12.0-15.5) 8.0 g/dL (12.0-15.5) Hematocrit 26.5 % (36.0-47.0) 24.7 % (36.0-47.0) Mean Corpuscular Hemoglobin Concent 32 g/dL (31-37) 33 g/dL (31-37) Glucose (Fingerstick) 184 mg/dL (70-99) 222 mg/dL (70-99) Test 11/03/19 06:30 White Blood Count 47.1 x10^3/uL (4.0-11.0) Red Blood Count 2.42 x10^6/uL (3.50-5.40) Hemoglobin 7.0 g/dL (12.0-15.5) Hematocrit 21.5 % (36.0-47.0) Mean Corpuscular Volume 89 fL (79-100) Mean Corpuscular Hemoglobin 29 pg (25-35) Mean Corpuscular Hemoglobin Concent 33 g/dL (31-37) Red Cell Distribution Width 16.4 % (11.5-14.5) Platelet Count 292 x10^3/uL (140-400) Neutrophils (%) (Auto) 88 % (31-73) Lymphocytes (%) (Auto) 9 % (24-48) Monocytes (%) (Auto) 3 % (0-9) Eosinophils (%) (Auto) 0 % (0-3) Basophils (%) (Auto) 0 % (0-3) Neutrophils # (Auto) 41.5 x10^3/uL (1.8-7.7) Lymphocytes # (Auto) 4.1 x10^3/uL (1.0-4.8) Monocytes # (Auto) 1.3 x10^3/uL (0.0-1.1) Eosinophils # (Auto) 0.1 x10^3/uL (0.0-0.7) Basophils # (Auto) 0.1 x10^3/uL (0.0-0.2) Sodium Level 139 mmol/L (136-145) Potassium Level 3.9 mmol/L (3.5-5.1) Chloride Level 106 mmol/L (98-107) Carbon Dioxide Level 28 mmol/L (21-32) Anion Gap 5 (6-14) Blood Urea Nitrogen 21 mg/dL (7-20) Creatinine 0.6 mg/dL (0.6-1.0) Estimated GFR (Cockcroft-Gault) 107.2 Glucose Level 162 mg/dL (70-99) Calcium Level 7.4 mg/dL (8.5-10.1) Laboratory Tests Test 11/02/19 11:41 11/02/19 12:25 11/02/19 16:54 11/02/19 18:13 Glucose (Fingerstick) 207 mg/dL (70-99) 184 mg/dL (70-99) Hemoglobin 8.5 g/dL (12.0-15.5) 8.0 g/dL (12.0-15.5) Hematocrit 26.5 % (36.0-47.0) 24.7 % (36.0-47.0) Mean Corpuscular Hemoglobin Concent 32 g/dL (31-37) 33 g/dL (31-37) Test 11/02/19 21:20 11/03/19 06:30 Glucose (Fingerstick) 222 mg/dL (70-99) White Blood Count 47.1 x10^3/uL (4.0-11.0) Red Blood Count 2.42 x10^6/uL (3.50-5.40) Hemoglobin 7.0 g/dL (12.0-15.5) Hematocrit 21.5 % (36.0-47.0) Mean Corpuscular Volume 89 fL (79-100) Mean Corpuscular Hemoglobin 29 pg (25-35) Mean Corpuscular Hemoglobin Concent 33 g/dL (31-37) Red Cell Distribution Width 16.4 % (11.5-14.5) Platelet Count 292 x10^3/uL (140-400) Neutrophils (%) (Auto) 88 % (31-73) Lymphocytes (%) (Auto) 9 % (24-48) Monocytes (%) (Auto) 3 % (0-9) Eosinophils (%) (Auto) 0 % (0-3) Basophils (%) (Auto) 0 % (0-3) Neutrophils # (Auto) 41.5 x10^3/uL (1.8-7.7) Lymphocytes # (Auto) 4.1 x10^3/uL (1.0-4.8) Monocytes # (Auto) 1.3 x10^3/uL (0.0-1.1) Eosinophils # (Auto) 0.1 x10^3/uL (0.0-0.7) Basophils # (Auto) 0.1 x10^3/uL (0.0-0.2) Sodium Level 139 mmol/L (136-145) Potassium Level 3.9 mmol/L (3.5-5.1) Chloride Level 106 mmol/L (98-107) Carbon Dioxide Level 28 mmol/L (21-32) Anion Gap 5 (6-14) Blood Urea Nitrogen 21 mg/dL (7-20) Creatinine 0.6 mg/dL (0.6-1.0) Estimated GFR (Cockcroft-Gault) 107.2 Glucose Level 162 mg/dL (70-99) Calcium Level 7.4 mg/dL (8.5-10.1) Microbiology 11/01/19 Blood Culture - Preliminary, Resulted NO GROWTH AFTER 1 DAY Medications Current Medications Sodium Chloride 500 ml @ 500 mls/hr 1X ONCE IV Last administered on 10/21 01/09at 13:00; Start 11/01/19 at 13:00; Stop 11/01/19 at 13:59; Status DC Ondansetron HCl (Zofran) 4 mg 1X ONCE IV Last administered on 11/01/19at 13:26; Start 11/01/19 at 13:00; Stop 11/01/19 at 13:13; Status DC Hydromorphone HCl (Dilaudid) 0.5 mg 1X STAT IVP Last administered on 11/01/19at 13:26; Start 11/01/19 at 12:59; Stop 11/01/19 at 13:13; Status DC Iohexol (Omnipaque 300 Mg/ml) 75 ml 1X ONCE IV Last administered on 11/01/19at 14:08; Start 11/01/19 at 13:45; Stop 11/01/19 at 13:46; Status DC Info (CONTRAST GIVEN -- Rx MONITORING) 1 each PRN DAILY PRN MC SEE COMMENTS; Start 11/01/19 at 14:00; Stop 11/03/19 at 13:59 Hydromorphone HCl (Dilaudid) 0.5 mg 1X STAT IVP Last administered on 11/01/19at 16:53; Start 11/01/19 at 16:21; Stop 11/01/19 at 16:23; Status DC Sodium Chloride 1,000 ml @ 1,000 mls/hr 1X ONCE IV Last administered on 11/01/19at 16:30; Start 11/01/19 at 16:30; Stop 11/01/19 at 17:29; Status DC Sodium Chloride 500 ml @ 500 mls/hr 1X ONCE IV Last administered on 11/01/19at 16:30; Start 11/01/19 at 16:30; Stop 11/01/19 at 17:29; Status DC Albuterol Sulfate (Ventolin Neb Soln) 2.5 mg PRN Q6HRS PRN INH SHORTNESS OF BREATH; Start 11/01/19 at 16:30 Alprazolam (Xanax) 0.25 mg PRN TID PRN PO anxiety; Start 11/01/19 at 16:30; Stop 11/01/19 at 17:11; Status DC Amlodipine Besylate (Norvasc) 5 mg DAILY PO ; Start 11/02/19 at 09:00 Cyclosporine (Restasis) 1 drop BID OU Last administered on 11/02/19at 21:16; Start 11/01/19 at 21:00 Fluticasone Propionate (Flonase) 2 spray DAILY NS ; Start 11/02/19 at 09:00 Lactobacillus Rhamnosus (Culturelle) 1 cap BID PO Last administered on 11/02/19 21:16; Start 11/01/19 at 21:00 Lidocaine (Lidoderm) 1 patch DAILY TP ; Start 11/02/19 at 09:00; Stop 11/01/19 at 20:34; Status DC Metoprolol Succinate (Toprol Xl) 100 mg HS PO Last administered on 11/01/19 20:41; Start 11/01/19 at 21:00 Nystatin (Nystop) 1 raza BID TP Last administered on 11/02/19 21:18; Start 11/01/19 at 21:00 Pantoprazole Sodium (Protonix) 40 mg DAILYAC PO Last administered on 11/02/19 07:50; Start 11/02/19 at 07:30 Senna/Docusate Sodium (Senna Plus) 1 tab BID PO Last administered on 11/02/19 21:16; Start 11/01/19 at 21:00 Sucralfate (Carafate) 1 gm TIDAC PO Last administered on 11/02/19 16:55; Start 11/01/19 at 17:30 Tramadol HCl (Ultram) 50 mg PRN Q8HRS PRN PO PAIN; Start 11/01/19 at 16:30; Stop 11/01/19 at 19:43; Status DC Insulin Glargine (Lantus Syringe) 30 unit QHS SQ Last administered on 11/02/19 21:18; Start 11/01/19 at 21:00 Ondansetron HCl (Zofran Odt) 8 mg PRN Q8HRS PRN PO NAUSEA/VOMITING Last administered on 11/02/19 07:48; Start 11/01/19 at 17:15 Polyethylene Glycol (miraLAX PACKET) 17 gm PRN DAILY PRN PO CONSTIPATION Last administered on 11/02/19 12:42; Start 11/01/19 at 17:11 Atorvastatin Calcium (Lipitor) 80 mg QHS PO Last administered on 11/02/19 21:16; Start 11/01/19 at 21:00 Insulin Human Lispro (HumaLOG) 0-9 UNITS TIDAC SQ Last administered on 11/02/19 21:22; Start 11/01/19 at 16:30 Dextrose (Dextrose 50%-Water Syringe) 12.5 gm PRN Q15MIN PRN IV SEE COMMENTS; Start 11/01/19 at 16:30 Ondansetron HCl (Zofran) 4 mg PRN Q8HRS PRN IV NAUSEA/VOMITING; Start 11/01/19 at 16:30; Stop 11/02/19 at 16:29; Status DC Alprazolam (Xanax) 0.25 mg PRN TID PRN PO anxiety Last administered on 11/02/19at 16:55; Start 11/01/19 at 17:11 Miscellaneous (Lidoderm Patch Removal) 1 ea QHS MC ; Start 11/01/19 at 21:00; Stop 11/01/19 at 20:34; Status DC Ceftriaxone Sodium (Rocephin) 1 gm QHS IVP Last administered on 11/02/19at 21:16; Start 11/01/19 at 18:45 Tramadol HCl (Ultram) 50 mg PRN Q8HRS PRN PO PAIN Last administered on 11/03/19at 08:49; Start 11/01/19 at 19:45 Hydromorphone HCl (Dilaudid) 1 mg PRN Q4HRS PRN IV PAIN Last administered on 11/03/19at 06:10; Start 11/01/19 at 20:15 Lidocaine (Lidoderm) 1 patch QHS TP Last administered on 11/02/19at 21:17; Start 11/01/19 at 21:00 Miscellaneous (Lidoderm Patch Removal) 1 ea DAILY MC Last administered on 11/02/19at 09:00; Start 11/02/19 at 09:00 Albumin Human 500 ml @ 125 mls/hr 1X ONCE IV ; Start 11/02/19 at 02:00; Stop 11/02/19 at 05:59; Status Cancel Acetaminophen (Tylenol) 650 mg 1X PRN PRN PO PRE-TRANSFUSION; Start 11/02/19 at 06:45 Diphenhydramine HCl (Benadryl Oral Elixir) 12.5 mg 1X PRN PRN PO PRE-T RANSFUSION; Start 11/02/19 at 06:45 Diphenhydramine HCl (Benadryl) 25 mg PRN 1X PRN PO PRE-TRANSFUSION; Start 11/02/19 at 06:45 Lactulose (LACTULOSE 300ML for RECTAL) 200 gm Q6HRS MT Last administered on 11/02/19at 18:00; Start 11/02/19 at 18:00 Sodium Chloride 1,000 ml @ 100 mls/hr Q10H IV Last administered on 11/03/19at 07:51; Start 11/02/19 at 12:00 Active Scripts Active Enoxaparin Sodium 120 Mg/0.8 Ml Disp.syrin 120 Mg SQ Q12HR 28 Days Dexamethasone 4 Mg Tablet 4 Mg PO BID 14 Days Culturelle (Lactobacillus Rhamnosus Gg) 1 Each Cap.sprink 1 Cap PO BID 30 Days Amlodipine Besylate 5 Mg Tablet 5 Mg PO DAILY 30 Days Cefdinir 300 Mg Capsule 300 Mg PO BID 10 Days Reported Cymbalta (Duloxetine Hcl) 60 Mg Capsule.dr 1 Cap PO BID Lyrica (Pregabalin) 150 Mg Capsule 1 Cap PO BID Novolog (Insulin Aspart) 100 Unit/1 Ml Cartridge 10-45 Unit SQ QIDACHS Levemir (Insulin Detemir) 100 Unit/1 Ml Vial 30 Unit SQ HS Linzess (Linaclotide) 145 Mcg Capsule 145 Mcg PO PRN PRN Crestor (Rosuvastatin Calcium) 40 Mg Tablet 0.5 Tab PO DAILY Polyethylene Glycol 3350 2,500 Gm Powder 17 Gm PO PRN PRN Xanax (Alprazolam) 1 Mg Tablet 1 Tab PO TID Restasis (Cyclosporine) 1 Each Droperette 1 Drop EACHEYE BID Proair Hfa Inhaler (Albuterol Sulfate) 8.5 Gm Hfa.aer.ad 1 Puff INH PRN Q6HRS PRN Tramadol Hcl 50 Mg Tablet 1 Tab PO PRN Q8HRS PRN Ondansetron Hcl 4 Mg Tablet 2 Tab PO PRN Q8HRS PRN Nystatin 15 Gm Powder 1 Raza TP BID Lidocaine PATCH (Lidocaine) 1 Each Adh..patch 1 Each TP DAILY Fluticasone Propionate Nasal Hudson (Fluticasone Propionate) 16 Gm Hudson.susp 2 Hudson NS DAILY Percocet 5-325 Mg Tablet (Oxycodone/Acetaminophen) 1 Each Tablet 1-2 Tab PO Q4-6HRS PRN LAST DOSE AT NEXT DOSE Senna-Docusate Sodium Tablet (Sennosides/Docusate Sodium) 1 Each Tablet 1 Each PO BID LAST DOSE THIS AM NEXT DOSE TONIGHT Robaxin-750 (Methocarbamol) 750 Mg Tablet 1 Tab PO TID LAST DOSE AT 1400 (2PM) MAY HAVE THE NEXT DOSE AT 10 PM Protonix (Pantoprazole Sodium) 40 Mg Tablet.dr 40 Mg PO DAILY LST DOSE THIS AM NEXT DOSE TOMORROW AM Carafate (Sucralfate) 1 Gm Tablet 1 Tab PO TID Meds not given this hospital admission. May resume home medications as approved by Physician. MAY TAKE WHEN AVAILABLE Xarelto (Rivaroxaban) 15 Mg Tablet 15 Mg PO DAILY Meds not given this hospital admission. May resume home medications as approved by Physician. MAY RESUME WHEN AVAILABLE Metoprolol Succinate ( Xl ) (Metoprolol Succinate) 100 Mg Tab.er.24h 100 Mg PO HS LAST DOSE THIS AM NEXT DOSE TOMORROW AM Vitals/I & O Vital Sign - Last 24 Hours 11/02/19 11/02/19 11/02/19 11/02/19 09:45 10:00 10:19 10:34 Temp 99.3 99.3 99.3 99.3 Pulse 82 86 84 80 Resp 18 B/P (MAP) 95/57 (70) 97/60 (72) 97/60 98/64 Pulse Ox 96 O2 Delivery Room Air 11/02/19 11/02/19 11/02/19 11/02/19 10:53 11:00 11:32 12:00 Temp 98.6 98.6 Pulse 80 77 Resp 18 16 B/P (MAP) 96/59 (71) 116/65 Pulse Ox 99 O2 Delivery Room Air Room Air Room Air 11/02/19 11/02/19 11/02/19 11/02/19 12:00 13:00 13:16 13:38 Temp 98.6 98.6 Pulse 85 81 Resp 18 22 B/P (MAP) 101/54 (70) 107/74 (85) Pulse Ox 99 93 100 98 O2 Delivery Room Air Room Air Room Air Room Air 11/02/19 11/02/19 11/02/19 11/02/19 14:00 14:29 14:29 15:00 Pulse 79 83 Resp 20 16 16 20 B/P (MAP) 95/53 (67) 97/55 (69) Pulse Ox 92 95 95 97 O2 Delivery Room Air Room Air Room Air Room Air 11/02/19 11/02/19 11/02/19 11/02/19 15:55 16:00 17:00 18:00 Temp 98.9 98.9 Pulse 80 84 84 Resp 18 18 18 B/P (MAP) 87/63 (71) 115/74 (88) 92/58 (69) Pulse Ox 79 98 98 O2 Delivery Room Air Room Air Room Air Room Air 11/02/19 11/02/19 11/02/19 11/02/19 18:03 18:35 19:00 20:00 Pulse 97 99 Resp 20 16 22 22 B/P (MAP) 93/52 (66) 96/55 (69) Pulse Ox 99 99 98 98 O2 Delivery Room Air Room Air Room Air Room Air 11/02/19 11/02/19 11/02/19 11/02/19 20:00 21:00 21:00 22:00 Pulse 99 91 94 Resp 22 20 B/P (MAP) 96/55 101/56 (71) 104/56 (72) Pulse Ox 98 98 O2 Delivery Room Air Room Air Room Air 11/02/19 11/02/19 11/02/19 11/02/19 22:25 23:00 23:11 23:59 Pulse 94 93 Resp 20 20 B/P (MAP) 106/58 (74) 102/61 (75) Pulse Ox 98 98 98 95 O2 Delivery Room Air Room Air Room Air Room Air O2 Flow Rate 2.0 2.0 11/02/19 11/03/19 11/03/19 11/03/19 23:59 01:00 02:00 03:00 Pulse 92 88 91 Resp 20 16 18 B/P (MAP) 94/51 (65) 96/48 (64) 90/52 (65) Pulse Ox 95 95 97 O2 Delivery Room Air Room Air Room Air Room Air 11/03/19 11/03/19 11/03/19 11/03/19 04:00 04:00 05:00 06:00 Temp 98.6 98.6 98.6 98.6 Pulse 86 86 100 Resp 18 18 20 B/P (MAP) 87/50 (62) 87/50 (62) 90/52 (65) Pulse Ox 97 97 97 O2 Delivery Room Air Room Air Room Air Room Air 11/03/19 11/03/19 11/03/19 06:10 07:00 08:49 Pulse 94 Resp 20 20 B/P (MAP) 96/57 (70) Pulse Ox 97 96 98 O2 Delivery Room Air Room Air Room Air O2 Flow Rate 2.0 Intake and Output 11/02/19 11/02/19 11/03/19 15:03 23:03 07:03 Intake Total 2300 ml 794 ml 1025 ml Output Total 605 ml 395 ml 500 ml Balance 1695 ml 399 ml 525 ml Nutrition Consultation Dietary Evaluation: Recommendations by RD: Increase Calorie Intake, Protein supplementation Comments: REC ADA/cardiac diet, will adjust diet order as needed REC glucerna w/dinner trays and prn Ok to liberalize diet as needed to promote PO intake Expected Outcomes/Goals: PO intake to meet >75% est needs Interpretation of weight loss: >5% in 1 month Malnutrition Findings: Food and Nutrition Intake (Sev: <50% est energy req 5days Weight Status: Morbidly Obese BINH WELCH MD Nov 03, 2019 09:40
[2019-11-03 10:36] LABS: % BANDS 9 % (0-9); % LYMPHS 10 % (24-48); % METAS 6 % (0-0); % MONOS 2 % (0-10); % MYELOS 9 % (0-0); % PROS 4 % (0-0); % SEGS 60 % (35-66); NUCLEATED RBC 3; PLT ESTIMATE ADEQUATE (ADEQUATE)
[2019-11-03 10:37] LABS: ANISOCYTOSIS SLIGHT; POLYCHROMASIA OCCASIONAL
[2019-11-03] MEDS: INSULIN LISPRO 300 UNITS/3 ML VIAL. SQ SCH ×2 (12:21→16:30)
[2019-11-03] MEDS: METOPROLOL SUCC 24HR ER 100 MG TAB.ER.24H. PO SCH (21:00)
[2019-11-03] MEDS: INSULIN GLARGINE SYRINGE. SQ SCH (21:12)
[2019-11-03] MEDS: ATORVASTATIN CALCIUM 40 MG TABLET. PO SCH (21:18)
[2019-11-03] MEDS: LIDOCAINE (700MG/PATCH) PATCH. TP SCH (21:19)
[2019-11-03] MEDS: cefTRIAXone IV Push 1 GM VIAL. IVP SCH (21:19)
[2019-11-04] VITALS (18 sets, daily range): BP systolic 94–140; BP diastolic 58–87
[2019-11-04] MEDS: HYDROmorphone 2 MG/ML VIAL IV PRN ×5 (00:08→19:38)
[2019-11-04] MEDS: IV NORMAL SALINE 1000ML BAG 1,000 ML IV SCH ×2 (04:13→17:48)
[2019-11-04] MEDS: LACTULOSE for RECTAL 200 GM/300 ML SOLUTION. PR SCH ×2 (05:23→12:00)
[2019-11-04] MEDS: ALPRAZolam 0.25 MG TABLET PO PRN ×2 (05:58→21:53)
[2019-11-04] MEDS: traMADol 50 MG TABLET PO PRN ×3 (05:58→21:56)
[2019-11-04 06:35] LABS: BASO # 0.1 x10^3/uL (0.0-0.2); BASO % 0 % (0-3); EOS # 0.2 x10^3/uL (0.0-0.7); EOS % 1 % (0-3); HEMATOCRIT 21.1 % (36.0-47.0); LYMPH # 3.8 x10^3/uL (1.0-4.8); LYMPH % 10 % (24-48); MEAN CORPUSCULAR HEMOGLOBIN 30 pg (25-35); MEAN CORPUSCULAR HGB CONC 33 g/dL (31-37); MEAN CORPUSCULAR VOLUME 91 fL (79-100); MONO # 1.2 x10^3/uL (0.0-1.1); MONO % 3 % (0-9); NEUT % 86 % (31-73); PLATELET COUNT 275 x10^3/uL (140-400); RED BLOOD COUNT 2.33 x10^6/uL (3.50-5.40); RED CELL DISTRIBUTION WIDTH 16.5 % (11.5-14.5); WHITE BLOOD COUNT 37.2 x10^3/uL (4.0-11.0)
[2019-11-04 06:42] LABS: HEMOGLOBIN 6.9 g/dL (12.0-15.5)
[2019-11-04 06:46] LABS: CALCIUM 7.5 mg/dL (8.5-10.1); CREATININE 0.6 mg/dL (0.6-1.0); GFR 107.2; POTASSIUM 3.6 mmol/L (3.5-5.1)
[2019-11-04] MEDS: SENNOSIDES/DOCUSATE 8.6/50MG TABLET. PO SCH ×2 (07:40→21:54)
[2019-11-04] MEDS: LACTOBACILLUS RHAMNOSUS GG 1 CAPSULE. PO SCH ×2 (07:40→21:53)
[2019-11-04] MEDS: amLODIPine BESYLATE 5 MG TABLET PO SCH (07:41)
[2019-11-04] MEDS: SUCRALFATE 1 GM TABLET. PO SCH ×3 (07:41→16:30)
[2019-11-04] MEDS: PANTOPRAZOLE 40 MG TABLET.DR. PO SCH (07:41)
[2019-11-04] MEDS: NYSTATIN TOPICAL POWDER 15GM BOTTLE. TP SCH ×2 (07:41→21:00)
[2019-11-04] MEDS: FLUTICASONE 50MCG/NASAL SPRAY 16GM BOTTLE. NS SCH (07:42)
[2019-11-04] MEDS: PATCH REMOVAL. MC SCH (07:42)
[2019-11-04] MEDS: cycloSPORINE 0.05% OPHTH DROPERETTE. OU SCH ×2 (07:42→21:53)
[2019-11-04] MEDS: INSULIN LISPRO 300 UNITS/3 ML VIAL. SQ SCH ×3 (07:44→16:30)
--- NOTE | 2019-11-04 09:07 | PDOC ---
MONI [facility] TRIAL JUDGE 11/04/19 0907: SURGICAL PROGRESS NOTE Subjective still some pain--not getting worse Vital Signs Vital Signs Date Time Temp Pulse Resp B/P (MAP) Pulse Ox O2 Delivery O2 Flow Rate FiO2 11/04/19 08:13 98.3 101 16 116/72 98.3 11/04/19 07:23 97 11/04/19 07:22 Room Air 11/04/19 00:08 2.0 I&O Intake and Output 11/04/19 07:00 Intake Total 3242 ml Output Total 1225 ml Balance 2017 ml Intake Oral 980 ml IV Total 1102 ml Other 1160 ml Output Urine Total 1225 ml General: Alert, Oriented X3, Cooperative Abdomen: Soft, Other (right sided ecchymosis ) Labs Laboratory Tests Test 11/02/19 11:41 11/02/19 12:25 11/02/19 16:54 11/02/19 18:13 Glucose (Fingerstick) 207 mg/dL (70-99) 184 mg/dL (70-99) Hemoglobin 8.5 g/dL (12.0-15.5) 8.0 g/dL (12.0-15.5) Hematocrit 26.5 % (36.0-47.0) 24.7 % (36.0-47.0) Mean Corpuscular Hemoglobin Concent 32 g/dL (31-37) 33 g/dL (31-37) Test 11/02/19 21:20 11/03/19 06:30 11/03/19 12:17 11/03/19 16:50 Glucose (Fingerstick) 222 mg/dL (70-99) 178 mg/dL (70-99) 131 mg/dL (70-99) White Blood Count 47.1 x10^3/uL (4.0-11.0) Red Blood Count 2.42 x10^6/uL (3.50-5.40) Hemoglobin 7.0 g/dL (12.0-15.5) Hematocrit 21.5 % (36.0-47.0) Mean Corpuscular Volume 89 fL (79-100) Mean Corpuscular Hemoglobin 29 pg (25-35) Mean Corpuscular Hemoglobin Concent 33 g/dL (31-37) Red Cell Distribution Width 16.4 % (11.5-14.5) Platelet Count 292 x10^3/uL (140-400) Neutrophils (%) (Auto) 88 % (31-73) Lymphocytes (%) (Auto) 9 % (24-48) Monocytes (%) (Auto) 3 % (0-9) Eosinophils (%) (Auto) 0 % (0-3) Basophils (%) (Auto) 0 % (0-3) Neutrophils # (Auto) 41.5 x10^3/uL (1.8-7.7) Lymphocytes # (Auto) 4.1 x10^3/uL (1.0-4.8) Monocytes # (Auto) 1.3 x10^3/uL (0.0-1.1) Eosinophils # (Auto) 0.1 x10^3/uL (0.0-0.7) Basophils # (Auto) 0.1 x10^3/uL (0.0-0.2) Segmented Neutrophils % 60 % (35-66) Band Neutrophils % 9 % (0-9) Lymphocytes % 10 % (24-48) Monocytes % 2 % (0-10) Metamyelocytes % 6 % (0-0) Myelocytes % 9 % (0-0) Promyelocytes % 4 % (0-0) Nucleated Red Blood Cells 3 Platelet Estimate Adequate (ADEQUATE) Polychromasia Occasional Anisocytosis Slight Sodium Level 139 mmol/L (136-145) Potassium Level 3.9 mmol/L (3.5-5.1) Chloride Level 106 mmol/L (98-107) Carbon Dioxide Level 28 mmol/L (21-32) Anion Gap 5 (6-14) Blood Urea Nitrogen 21 mg/dL (7-20) Creatinine 0.6 mg/dL (0.6-1.0) Estimated GFR (Cockcroft-Gault) 107.2 Glucose Level 162 mg/dL (70-99) Calcium Level 7.4 mg/dL (8.5-10.1) Test 11/03/19 21:15 11/04/19 06:00 Glucose (Fingerstick) 172 mg/dL (70-99) White Blood Count 37.2 x10^3/uL (4.0-11.0) Red Blood Count 2.33 x10^6/uL (3.50-5.40) Hemoglobin 6.9 g/dL (12.0-15.5) Hematocrit 21.1 % (36.0-47.0) Mean Corpuscular Volume 91 fL (79-100) Mean Corpuscular Hemoglobin 30 pg (25-35) Mean Corpuscular Hemoglobin Concent 33 g/dL (31-37) Red Cell Distribution Width 16.5 % (11.5-14.5) Platelet Count 275 x10^3/uL (140-400) Neutrophils (%) (Auto) 86 % (31-73) Lymphocytes (%) (Auto) 10 % (24-48) Monocytes (%) (Auto) 3 % (0-9) Eosinophils (%) (Auto) 1 % (0-3) Basophils (%) (Auto) 0 % (0-3) Neutrophils # (Auto) 32.0 x10^3/uL (1.8-7.7) Lymphocytes # (Auto) 3.8 x10^3/uL (1.0-4.8) Monocytes # (Auto) 1.2 x10^3/uL (0.0-1.1) Eosinophils # (Auto) 0.2 x10^3/uL (0.0-0.7) Basophils # (Auto) 0.1 x10^3/uL (0.0-0.2) Sodium Level 138 mmol/L (136-145) Potassium Level 3.6 mmol/L (3.5-5.1) Chloride Level 103 mmol/L (98-107) Carbon Dioxide Level 29 mmol/L (21-32) Anion Gap 6 (6-14) Blood Urea Nitrogen 14 mg/dL (7-20) Creatinine 0.6 mg/dL (0.6-1.0) Estimated GFR (Cockcroft-Gault) 107.2 Glucose Level 154 mg/dL (70-99) Calcium Level 7.5 mg/dL (8.5-10.1) Laboratory Tests Test 11/03/19 12:17 11/03/19 16:50 11/03/19 21:15 11/04/19 06:00 Glucose (Fingerstick) 178 mg/dL (70-99) 131 mg/dL (70-99) 172 mg/dL (70-99) White Blood Count 37.2 x10^3/uL (4.0-11.0) Red Blood Count 2.33 x10^6/uL (3.50-5.40) Hemoglobin 6.9 g/dL (12.0-15.5) Hematocrit 21.1 % (36.0-47.0) Mean Corpuscular Volume 91 fL (79-100) Mean Corpuscular Hemoglobin 30 pg (25-35) Mean Corpuscular Hemoglobin Concent 33 g/dL (31-37) Red Cell Distribution Width 16.5 % (11.5-14.5) Platelet Count 275 x10^3/uL (140-400) Neutrophils (%) (Auto) 86 % (31-73) Lymphocytes (%) (Auto) 10 % (24-48) Monocytes (%) (Auto) 3 % (0-9) Eosinophils (%) (Auto) 1 % (0-3) Basophils (%) (Auto) 0 % (0-3) Neutrophils # (Auto) 32.0 x10^3/uL (1.8-7.7) Lymphocytes # (Auto) 3.8 x10^3/uL (1.0-4.8) Monocytes # (Auto) 1.2 x10^3/uL (0.0-1.1) Eosinophils # (Auto) 0.2 x10^3/uL (0.0-0.7) Basophils # (Auto) 0.1 x10^3/uL (0.0-0.2) Sodium Level 138 mmol/L (136-145) Potassium Level 3.6 mmol/L (3.5-5.1) Chloride Level 103 mmol/L (98-107) Carbon Dioxide Level 29 mmol/L (21-32) Anion Gap 6 (6-14) Blood Urea Nitrogen 14 mg/dL (7-20) Creatinine 0.6 mg/dL (0.6-1.0) Estimated GFR (Cockcroft-Gault) 107.2 Glucose Level 154 mg/dL (70-99) Calcium Level 7.5 mg/dL (8.5-10.1) Problem List Problems Medical Problems: (1) Abdominal hemorrhage Status: Acute (2) Generalized weakness Status: Acute (3) Lactic acidosis Status: Acute (4) Leukocytosis Status: Acute Assessment/Plan hematoma stable no surgical plans reviewed neurosurgery note MAXI DUKE MD 11/04/19 1625: SURGICAL PROGRESS NOTE Assessment/Plan Pt seen and examined. Agree with Ms. Choi's note Pt feels somewhat better abd soft cont supportive care. MONI CHOI APRN Nov 04, 2019 09:07 MAXI DUKE MD Nov 04, 2019 16:25
--- NOTE | 2019-11-04 10:52 | PDOC ---
PROGRESS NOTES Subjective Subjective Denies acute changes. Overall, states feels a little better. ROS - reports mild headache, reports tightness abdomen unchanged vs a little better, denies n/v Objective Objective Vital Signs Date Time Temp Pulse Resp B/P (MAP) Pulse Ox O2 Delivery O2 Flow Rate FiO2 11/04/19 10:17 17 98 Room Air 11/04/19 10:00 100 123/66 (85) 11/04/19 08:13 98.3 98.3 11/04/19 00:08 2.0 Intake and Output 11/04/19 07:00 Intake Total 3242 ml Output Total 1400 ml Balance 1842 ml Intake Oral 980 ml IV Total 1102 ml Other 1160 ml Output Urine Total 1400 ml Physical Exam Physical Exam AAOx4, NAD, LLANES, unchanged weakness RLE, sensation unchanged LT Assessment Assessment Problems Medical Problems: (1) Abdominal hemorrhage Status: Acute (2) Generalized weakness Status: Acute (3) Lactic acidosis Status: Acute (4) Leukocytosis Status: Acute Plan Plan of Care - neurologically with stable deficits - received tranfusion this AM - marrow bx pending Comment Review of Relevant I have reviewed the following items mustapha (where applicable) has been applied. Labs Laboratory Tests Test 11/02/19 11:41 11/02/19 12:25 11/02/19 16:54 11/02/19 18:13 Glucose (Fingerstick) 207 mg/dL (70-99) 184 mg/dL (70-99) Hemoglobin 8.5 g/dL (12.0-15.5) 8.0 g/dL (12.0-15.5) Hematocrit 26.5 % (36.0-47.0) 24.7 % (36.0-47.0) Mean Corpuscular Hemoglobin Concent 32 g/dL (31-37) 33 g/dL (31-37) Test 11/02/19 21:20 11/03/19 06:30 11/03/19 12:17 11/03/19 16:50 Glucose (Fingerstick) 222 mg/dL (70-99) 178 mg/dL (70-99) 131 mg/dL (70-99) White Blood Count 47.1 x10^3/uL (4.0-11.0) Red Blood Count 2.42 x10^6/uL (3.50-5.40) Hemoglobin 7.0 g/dL (12.0-15.5) Hematocrit 21.5 % (36.0-47.0) Mean Corpuscular Volume 89 fL (79-100) Mean Corpuscular Hemoglobin 29 pg (25-35) Mean Corpuscular Hemoglobin Concent 33 g/dL (31-37) Red Cell Distribution Width 16.4 % (11.5-14.5) Platelet Count 292 x10^3/uL (140-400) Neutrophils (%) (Auto) 88 % (31-73) Lymphocytes (%) (Auto) 9 % (24-48) Monocytes (%) (Auto) 3 % (0-9) Eosinophils (%) (Auto) 0 % (0-3) Basophils (%) (Auto) 0 % (0-3) Neutrophils # (Auto) 41.5 x10^3/uL (1.8-7.7) Lymphocytes # (Auto) 4.1 x10^3/uL (1.0-4.8) Monocytes # (Auto) 1.3 x10^3/uL (0.0-1.1) Eosinophils # (Auto) 0.1 x10^3/uL (0.0-0.7) Basophils # (Auto) 0.1 x10^3/uL (0.0-0.2) Segmented Neutrophils % 60 % (35-66) Band Neutrophils % 9 % (0-9) Lymphocytes % 10 % (24-48) Monocytes % 2 % (0-10) Metamyelocytes % 6 % (0-0) Myelocytes % 9 % (0-0) Promyelocytes % 4 % (0-0) Nucleated Red Blood Cells 3 Platelet Estimate Adequate (ADEQUATE) Polychromasia Occasional Anisocytosis Slight Sodium Level 139 mmol/L (136-145) Potassium Level 3.9 mmol/L (3.5-5.1) Chloride Level 106 mmol/L (98-107) Carbon Dioxide Level 28 mmol/L (21-32) Anion Gap 5 (6-14) Blood Urea Nitrogen 21 mg/dL (7-20) Creatinine 0.6 mg/dL (0.6-1.0) Estimated GFR (Cockcroft-Gault) 107.2 Glucose Level 162 mg/dL (70-99) Calcium Level 7.4 mg/dL (8.5-10.1) Test 11/03/19 21:15 11/04/19 06:00 Glucose (Fingerstick) 172 mg/dL (70-99) White Blood Count 37.2 x10^3/uL (4.0-11.0) Red Blood Count 2.33 x10^6/uL (3.50-5.40) Hemoglobin 6.9 g/dL (12.0-15.5) Hematocrit 21.1 % (36.0-47.0) Mean Corpuscular Volume 91 fL (79-100) Mean Corpuscular Hemoglobin 30 pg (25-35) Mean Corpuscular Hemoglobin Concent 33 g/dL (31-37) Red Cell Distribution Width 16.5 % (11.5-14.5) Platelet Count 275 x10^3/uL (140-400) Neutrophils (%) (Auto) 86 % (31-73) Lymphocytes (%) (Auto) 10 % (24-48) Monocytes (%) (Auto) 3 % (0-9) Eosinophils (%) (Auto) 1 % (0-3) Basophils (%) (Auto) 0 % (0-3) Neutrophils # (Auto) 32.0 x10^3/uL (1.8-7.7) Lymphocytes # (Auto) 3.8 x10^3/uL (1.0-4.8) Monocytes # (Auto) 1.2 x10^3/uL (0.0-1.1) Eosinophils # (Auto) 0.2 x10^3/uL (0.0-0.7) Basophils # (Auto) 0.1 x10^3/uL (0.0-0.2) Sodium Level 138 mmol/L (136-145) Potassium Level 3.6 mmol/L (3.5-5.1) Chloride Level 103 mmol/L (98-107) Carbon Dioxide Level 29 mmol/L (21-32) Anion Gap 6 (6-14) Blood Urea Nitrogen 14 mg/dL (7-20) Creatinine 0.6 mg/dL (0.6-1.0) Estimated GFR (Cockcroft-Gault) 107.2 Glucose Level 154 mg/dL (70-99) Calcium Level 7.5 mg/dL (8.5-10.1) Laboratory Tests Test 11/03/19 12:17 11/03/19 16:50 11/03/19 21:15 11/04/19 06:00 Glucose (Fingerstick) 178 mg/dL (70-99) 131 mg/dL (70-99) 172 mg/dL (70-99) White Blood Count 37.2 x10^3/uL (4.0-11.0) Red Blood Count 2.33 x10^6/uL (3.50-5.40) Hemoglobin 6.9 g/dL (12.0-15.5) Hematocrit 21.1 % (36.0-47.0) Mean Corpuscular Volume 91 fL (79-100) Mean Corpuscular Hemoglobin 30 pg (25-35) Mean Corpuscular Hemoglobin Concent 33 g/dL (31-37) Red Cell Distribution Width 16.5 % (11.5-14.5) Platelet Count 275 x10^3/uL (140-400) Neutrophils (%) (Auto) 86 % (31-73) Lymphocytes (%) (Auto) 10 % (24-48) Monocytes (%) (Auto) 3 % (0-9) Eosinophils (%) (Auto) 1 % (0-3) Basophils (%) (Auto) 0 % (0-3) Neutrophils # (Auto) 32.0 x10^3/uL (1.8-7.7) Lymphocytes # (Auto) 3.8 x10^3/uL (1.0-4.8) Monocytes # (Auto) 1.2 x10^3/uL (0.0-1.1) Eosinophils # (Auto) 0.2 x10^3/uL (0.0-0.7) Basophils # (Auto) 0.1 x10^3/uL (0.0-0.2) Sodium Level 138 mmol/L (136-145) Potassium Level 3.6 mmol/L (3.5-5.1) Chloride Level 103 mmol/L (98-107) Carbon Dioxide Level 29 mmol/L (21-32) Anion Gap 6 (6-14) Blood Urea Nitrogen 14 mg/dL (7-20) Creatinine 0.6 mg/dL (0.6-1.0) Estimated GFR (Cockcroft-Gault) 107.2 Glucose Level 154 mg/dL (70-99) Calcium Level 7.5 mg/dL (8.5-10.1) Microbiology 11/01/19 Blood Culture - Preliminary, Resulted NO GROWTH AFTER 2 DAYS Medications Current Medications Sodium Chloride 500 ml @ 500 mls/hr 1X ONCE IV Last administered on 11/01/19at 13:00; Start 11/01/19 at 13:00; Stop 11/01/19 at 13:59; Status DC Ondansetron HCl (Zofran) 4 mg 1X ONCE IV Last administered on 11/01/19at 13:26; Start 11/01/19 at 13:00; Stop 11/01/19 at 13:13; Status DC Hydromorphone HCl (Dilaudid) 0.5 mg 1X STAT IVP Last administered on 11/01/19at 13:26; Start 11/01/19 at 12:59; Stop 11/01/19 at 13:13; Status DC Iohexol (Omnipaque 300 Mg/ml) 75 ml 1X ONCE IV Last administered on 11/01/19at 14:08; Start 11/01/19 at 13:45; Stop 11/01/19 at 13:46; Status DC Info (CONTRAST GIVEN -- Rx MONITORING) 1 each PRN DAILY PRN MC SEE COMMENTS; Start 11/01/19 at 14:00; Stop 11/03/19 at 13:59; Status DC Hydromorphone HCl (Dilaudid) 0.5 mg 1X STAT IVP Last administered on 11/01/19at 16:53; Start 11/01/19 at 16:21; Stop 11/01/19 at 16:23; Status DC Sodium Chloride 1,000 ml @ 1,000 mls/hr 1X ONCE IV Last administered on 11/01/19at 16:30; Start 11/01/19 at 16:30; Stop 11/01/19 at 17:29; Status DC Sodium Chloride 500 ml @ 500 mls/hr 1X ONCE IV Last administered on 11/01/19at 16:30; Start 11/01/19 at 16:30; Stop 11/01/19 at 17:29; Status DC Albuterol Sulfate (Ventolin Neb Soln) 2.5 mg PRN Q6HRS PRN INH SHORTNESS OF BREATH; Start 11/01/19 at 16:30 Alprazolam (Xanax) 0.25 mg PRN TID PRN PO anxiety; Start 11/01/19 at 16:30; Stop 11/01/19 at 17:11; Status DC Amlodipine Besylate (Norvasc) 5 mg DAILY PO Last administered on 11/04/19 07:41; Start 11/02/19 at 09:00 Cyclosporine (Restasis) 1 drop BID OU Last administered on 11/04/19 07:42; Start 11/01/19 at 21:00 Fluticasone Propionate (Flonase) 2 spray DAILY NS Last administered on 11/04/19 07:42; Start 11/02/19 at 09:00 Lactobacillus Rhamnosus (Culturelle) 1 cap BID PO Last administered on 11/04/19 07:40; Start 11/01/19 at 21:00 Lidocaine (Lidoderm) 1 patch DAILY TP ; Start 11/02/19 at 09:00; Stop 11/01/19 at 20:34; Status DC Metoprolol Succinate (Toprol Xl) 100 mg HS PO Last administered on 11/01/19 20:41; Start 11/01/19 at 21:00 Nystatin (Nystop) 1 raza BID TP Last administered on 11/04/19 07:41; Start 11/01/19 at 21:00 Pantoprazole Sodium (Protonix) 40 mg DAILYAC PO Last administered on 11/04/19 07:41; Start 11/02/19 at 07:30 Senna/Docusate Sodium (Senna Plus) 1 tab BID PO Last administered on 11/04/19 07:40; Start 11/01/19 at 21:00 Sucralfate (Carafate) 1 gm TIDAC PO Last administered on 11/04/19 07:41; Start 11/01/19 at 17:30 Tramadol HCl (Ultram) 50 mg PRN Q8HRS PRN PO PAIN; Start 11/01/19 at 16:30; Stop 11/01/19 at 19:43; Status DC Insulin Glargine (Lantus Syringe) 30 unit QHS SQ Last administered on 11/03/19at 21:12; Start 11/01/19 at 21:00 Ondansetron HCl (Zofran Odt) 8 mg PRN Q8HRS PRN PO NAUSEA/VOMITING Last administered on 11/02/19 07:48; Start 11/01/19 at 17:15 Polyethylene Glycol (miraLAX PACKET) 17 gm PRN DAILY PRN PO CONSTIPATION Last administered on 11/02/19 12:42; Start 11/01/19 at 17:11 Atorvastatin Calcium (Lipitor) 80 mg QHS PO Last administered on 11/03/19 21:18; Start 11/01/19 at 21:00 Insulin Human Lispro (HumaLOG) 0-9 UNITS TIDAC SQ Last administered on 11/04/19 07:44; Start 11/01/19 at 16:30 Dextrose (Dextrose 50%-Water Syringe) 12.5 gm PRN Q15MIN PRN IV SEE COMMENTS; Start 11/01/19 at 16:30 Ondansetron HCl (Zofran) 4 mg PRN Q8HRS PRN IV NAUSEA/VOMITING; Start 11/01/19 at 16:30; Stop 11/02/19 at 16:29; Status DC Alprazolam (Xanax) 0.25 mg PRN TID PRN PO anxiety Last administered on 11/04/19 05:58; Start 11/01/19 at 17:11 Miscellaneous (Lidoderm Patch Removal) 1 ea QHS MC ; Start 11/01/19 at 21:00; Stop 11/01/19 at 20:34; Status DC Ceftriaxone Sodium (Rocephin) 1 gm QHS IVP Last administered on 11/03/19 21:19; Start 11/01/19 at 18:45 Tramadol HCl (Ultram) 50 mg PRN Q8HRS PRN PO PAIN Last administered on 10/21 05:58; Start 11/01/19 at 19:45 Hydromorphone HCl (Dilaudid) 1 mg PRN Q4HRS PRN IV PAIN Last administered on 11/04/19 09:29; Start 11/01/19 at 20:15 Lidocaine (Lidoderm) 1 patch QHS TP Last administered on 11/03/19 21:19; Start 11/01/19 at 21:00 Miscellaneous (Lidoderm Patch Removal) 1 ea DAILY MC Last administered on 12/15/19at 07:42; Start 11/02/19 at 09:00 Albumin Human 500 ml @ 125 mls/hr 1X ONCE IV ; Start 11/02/19 at 02:00; Stop 11/02/19 at 05:59; Status Cancel Acetaminophen (Tylenol) 650 mg 1X PRN PRN PO PRE-TRANSFUSION; Start 11/02/19 at 06:45; Stop 11/03/19 at 14:16; Status DC Diphenhydramine HCl (Benadryl Oral Elixir) 12.5 mg 1X PRN PRN PO PRE- TRANSFUSION; Start 11/02/19 at 06:45; Stop 11/03/19 at 14:16; Status DC Diphenhydramine HCl (Benadryl) 25 mg PRN 1X PRN PO PRE-TRANSFUSION; Start 11/02/19 at 06:45; Stop 11/03/19 at 14:16; Status DC Lactulose (LACTULOSE 300ML for RECTAL) 200 gm Q6HRS OK Last administered on 11/02/19at 18:00; Start 11/02/19 at 18:00 Sodium Chloride 1,000 ml @ 100 mls/hr Q10H IV Last administered on 11/04/19at 04:13; Start 11/02/19 at 12:00 Active Scripts Active Enoxaparin Sodium 120 Mg/0.8 Ml Disp.syrin 120 Mg SQ Q12HR 28 Days Dexamethasone 4 Mg Tablet 4 Mg PO BID 14 Days Culturelle (Lactobacillus Rhamnosus Gg) 1 Each Cap.sprink 1 Cap PO BID 30 Days Amlodipine Besylate 5 Mg Tablet 5 Mg PO DAILY 30 Days Cefdinir 300 Mg Capsule 300 Mg PO BID 10 Days Reported Cymbalta (Duloxetine Hcl) 60 Mg Capsule.dr 1 Cap PO BID Lyrica (Pregabalin) 150 Mg Capsule 1 Cap PO BID Novolog (Insulin Aspart) 100 Unit/1 Ml Cartridge 10-45 Unit SQ QIDACHS Levemir (Insulin Detemir) 100 Unit/1 Ml Vial 30 Unit SQ HS Linzess (Linaclotide) 145 Mcg Capsule 145 Mcg PO PRN PRN Crestor (Rosuvastatin Calcium) 40 Mg Tablet 0.5 Tab PO DAILY Polyethylene Glycol 3350 2,500 Gm Powder 17 Gm PO PRN PRN Xanax (Alprazolam) 1 Mg Tablet 1 Tab PO TID Restasis (Cyclosporine) 1 Each Droperette 1 Drop EACHEYE BID Proair Hfa Inhaler (Albuterol Sulfate) 8.5 Gm Hfa.aer.ad 1 Puff INH PRN Q6HRS PRN Tramadol Hcl 50 Mg Tablet 1 Tab PO PRN Q8HRS PRN Ondansetron Hcl 4 Mg Tablet 2 Tab PO PRN Q8HRS PRN Nystatin 15 Gm Powder 1 Raza TP BID Lidocaine PATCH (Lidocaine) 1 Each Adh..patch 1 Each TP DAILY Fluticasone Propionate Nasal [place] (Fluticasone Propionate) 16 Gm [place].susp 2 [place] NS DAILY Percocet 5-325 Mg Tablet (Oxycodone/Acetaminophen) 1 Each Tablet 1-2 Tab PO Q4-6HRS PRN LAST DOSE AT NEXT DOSE Senna-Docusate Sodium Tablet (Sennosides/Docusate Sodium) 1 Each Tablet 1 Each PO BID LAST DOSE THIS AM NEXT DOSE TONIGHT Robaxin-750 (Methocarbamol) 750 Mg Tablet 1 Tab PO TID LAST DOSE AT 1400 (2PM) MAY HAVE THE NEXT DOSE AT 10 PM Protonix (Pantoprazole Sodium) 40 Mg Tablet.dr 40 Mg PO DAILY LST DOSE THIS AM NEXT DOSE TOMORROW AM Carafate (Sucralfate) 1 Gm Tablet 1 Tab PO TID Meds not given this hospital admission. May resume home medications as approved by Physician. MAY TAKE WHEN AVAILABLE Xarelto (Rivaroxaban) 15 Mg Tablet 15 Mg PO DAILY Meds not given this hospital admission. May resume home medications as approved by Physician. MAY RESUME WHEN AVAILABLE Metoprolol Succinate ( Xl ) (Metoprolol Succinate) 100 Mg Tab.er.24h 100 Mg PO HS LAST DOSE THIS AM NEXT DOSE TOMORROW AM Vitals/I & O Vital Sign - Last 24 Hours 11/03/19 11/03/19 11/03/19 11/03/19 11:00 12:00 12:00 12:06 Temp 98.1 98.1 Pulse 90 88 Resp 19 16 16 B/P (MAP) 99/53 (68) 99/59 (72) Pulse Ox 98 95 98 O2 Delivery Room Air Room Air Room Air Room Air O2 Flow Rate 2.0 11/03/19 11/03/19 11/03/19 11/03/19 13:00 13:59 14:00 15:00 Pulse 98 94 97 Resp 16 14 17 16 B/P (MAP) 104/66 (79) 113/59 (77) 112/64 (80) Pulse Ox 100 100 99 99 O2 Delivery Room Air Room Air Room Air Room Air O2 Flow Rate 2.0 11/03/19 11/03/19 11/03/19 11/03/19 15:43 16:00 16:00 16:44 Temp 99.0 99.0 Pulse 98 Resp 20 20 12 B/P (MAP) 109/58 (75) Pulse Ox 100 99 100 O2 Delivery Room Air Room Air Room Air Room Air O2 Flow Rate 2.0 2.0 11/03/19 11/03/19 11/03/19 11/03/19 17:00 18:00 18:14 19:00 Pulse 108 100 99 Resp 22 20 22 20 B/P (MAP) 116/65 (82) 104/66 (79) 99/60 (73) Pulse Ox 96 96 100 96 O2 Delivery Room Air Room Air Room Air Room Air O2 Flow Rate 2.0 11/03/19 11/03/19 11/03/19 11/03/19 20:00 20:00 21:00 21:00 Temp 98.4 98.4 Pulse 110 110 99 Resp 20 20 B/P (MAP) 107/60 (76) 92/60 112/60 (77) Pulse Ox 96 97 O2 Delivery Room Air Room Air Room Air 11/03/19 11/03/19 11/03/19 11/03/19 21:19 22:00 23:00 23:52 Pulse 116 114 Resp 20 20 B/P (MAP) 120/70 (87) 123/71 (88) Pulse Ox 96 95 98 O2 Delivery Room Air Room Air Room Air Room Air O2 Flow Rate 2.0 11/04/19 11/04/19 11/04/19 11/04/19 00:08 01:00 02:00 04:00 Temp 98.3 98.3 Pulse 115 110 105 Resp 20 20 20 B/P (MAP) 126/68 (87) 117/71 (86) 120/73 (89) Pulse Ox 98 96 97 97 O2 Delivery Room Air Room Air Room Air Room Air O2 Flow Rate 2.0 11/04/19 11/04/19 11/04/19 11/04/19 04:15 05:00 06:00 07:00 Pulse 106 101 103 Resp 20 16 17 B/P (MAP) 118/73 (88) 137/77 (97) 123/71 (88) Pulse Ox 95 98 97 O2 Delivery Room Air Room Air Room Air Room Air 11/04/19 11/04/19 11/04/19 11/04/19 07:22 07:23 07:41 08:00 Temp 98.3 98.3 Pulse 103 100 Resp 17 17 17 B/P (MAP) 123/71 116/72 (87) Pulse Ox 97 97 96 O2 Delivery Room Air Room Air 11/04/19 11/04/19 11/04/19 11/04/19 08:00 08:13 09:00 09:29 Temp 98.3 98.3 Pulse 101 104 Resp 16 18 22 B/P (MAP) 116/72 140/87 (104) Pulse Ox 98 98 O2 Delivery Room Air Room Air Room Air 11/04/19 11/04/19 10:00 10:17 Pulse 100 Resp 16 17 B/P (MAP) 123/66 (85) Pulse Ox 98 98 O2 Delivery Room Air Room Air Intake and Output 11/03/19 11/03/19 11/04/19 15:00 23:00 07:00 Intake Total 240 ml 1400 ml 1602 ml Output Total 550 ml 275 ml 575 ml Balance -310 ml 1125 ml 1027 ml Nutrition Consultation Dietary Evaluation: Recommendations by RD: Increase Calorie Intake, Protein supplementation Comments: REC ADA/cardiac diet, will adjust diet order as needed REC glucerna w/dinner trays and prn Ok to liberalize diet as needed to promote PO intake Expected Outcomes/Goals: PO intake to meet >75% est needs Interpretation of weight loss: >5% in 1 month Malnutrition Findings: Food and Nutrition Intake (Sev: <50% est energy req 5days Weight Status: Morbidly Obese BINH WELCH MD Nov 04, 2019 10:52
--- NOTE | 2019-11-04 14:42 | PDOC ---
PROGRESS NOTES Chief Complaint Chief Complaint A/P: Abdominal pain - with swelling - large hematoma. Pain control, consult general surgery Acute blood loss anemia - likely 2/2 large right sided abdominal wall hematoma. Given the acute drop in Hb this bleed is acute. Transfused 2u 11/02 Elevated WBC - much higher now. This needs hematology. Will get smear with pathology. Bone marrow biopsy is recommended Acute encephalopathy - likely metabolic with meds - narcotics and benzos and brain mass, possibly toxic as well Brain Mass - meningioma with midline shifting, vasogenic edema. On steroids - Left parietal extra-axial solid enhancing mass has imaging characteristics suggestive of a meningioma. surgery planned this coming tuesday DM2 - basal bolus plus regimen of insulin Chronic Back Pain and Sciatica Rt Leg Hx PE - sees hematology, on xarelto transitioned to lovenox. Consult hematology for further recs Hypotension - new, will hold her amlodipine Epistaxis - possibly lovenox, though I am more concerned about a hematologic malignancy FEN - General diet PPX - Contraindicated FULL CODE Dispo - inpatient History of Present Illness History of Present Illness Ms Alejo is a 49-year-old female w/ PMHx Anxiety, CAD, Diabetes, High Cholesterol, Hypertension, Kidney Stones, Ovarian Cyst, Pneumonia, pulmonary embolism, tachycardia who comes to ED with presyncope. On her way to Oncology today her left leg gave out on her and she felt like she was floating. She's been having abdominal bruising and pain to the right side of her abdomen with swelling and the bruise feels so tense that she thinks an alien or baby is going to burst out. CT abdomen shows large right subcutaneous hematoma with active bleeding. She also started having intermittent nosebleeds day prior to admit and again day of admission. EKG shows a sinus rhythm at 94 bpm, normal axis, QTC 466 ms, no ST elevation. Labs concerning for WBC of 81. 11/02: Hb 6.6 today. ordered 2u PRBC. She is still a little confused, better than prior admit. She was feeling uncoordinated and notes her headache she has been having. Reports her pain is 10. 11/03: Overnight had BM, pain better controlled. Hb 7 now s/p 2u PRBC. WBC 45. Still a bit confused. No further epistaxis. No CP or SOB. WBC 27 today, Hb 6.9. D/w patient she states she is usually tachycardic. Her hematoma is slightly smaller today. Will defer transfusion for now. No CP or SOB. She has abdominal pain getting quite a bit of dilaudid, will transition to po oxycodone Vitals Vitals Vital Signs Date Time Temp Pulse Resp B/P (MAP) Pulse Ox O2 Delivery O2 Flow Rate FiO2 11/04/19 14:11 19 Room Air 11/04/19 14:00 112 96/62 (73) 11/04/19 13:48 98 2.0 11/04/19 12:00 98.3 98.3 Physical Exam General: Alert, Oriented X3, Cooperative Lungs: Wheezing Abdomen: Soft, Other (right sided ecchymosis ) Extremities: No clubbing, No cyanosis, No edema, Normal pulses, No tenderness/swelling Skin: Other (Ecchymosis on right abdomen) Labs LABS Laboratory Tests Test 11/03/19 16:50 11/03/19 21:15 11/04/19 06:00 11/04/19 11:50 Glucose (Fingerstick) 131 mg/dL (70-99) 172 mg/dL (70-99) 148 mg/dL (70-99) White Blood Count 37.2 x10^3/uL (4.0-11.0) Red Blood Count 2.33 x10^6/uL (3.50-5.40) Hemoglobin 6.9 g/dL (12.0-15.5) Hematocrit 21.1 % (36.0-47.0) Mean Corpuscular Volume 91 fL (79-100) Mean Corpuscular Hemoglobin 30 pg (25-35) Mean Corpuscular Hemoglobin Concent 33 g/dL (31-37) Red Cell Distribution Width 16.5 % (11.5-14.5) Platelet Count 275 x10^3/uL (140-400) Neutrophils (%) (Auto) 86 % (31-73) Lymphocytes (%) (Auto) 10 % (24-48) Monocytes (%) (Auto) 3 % (0-9) Eosinophils (%) (Auto) 1 % (0-3) Basophils (%) (Auto) 0 % (0-3) Neutrophils # (Auto) 32.0 x10^3/uL (1.8-7.7) Lymphocytes # (Auto) 3.8 x10^3/uL (1.0-4.8) Monocytes # (Auto) 1.2 x10^3/uL (0.0-1.1) Eosinophils # (Auto) 0.2 x10^3/uL (0.0-0.7) Basophils # (Auto) 0.1 x10^3/uL (0.0-0.2) Sodium Level 138 mmol/L (136-145) Potassium Level 3.6 mmol/L (3.5-5.1) Chloride Level 103 mmol/L (98-107) Carbon Dioxide Level 29 mmol/L (21-32) Anion Gap 6 (6-14) Blood Urea Nitrogen 14 mg/dL (7-20) Creatinine 0.6 mg/dL (0.6-1.0) Estimated GFR (Cockcroft-Gault) 107.2 Glucose Level 154 mg/dL (70-99) Calcium Level 7.5 mg/dL (8.5-10.1) Assessment and Plan Assessmemt and Plan Problems Medical Problems: (1) Abdominal hemorrhage Status: Acute (2) Generalized weakness Status: Acute (3) Lactic acidosis Status: Acute (4) Leukocytosis Status: Acute Comment Review of Relevant I have reviewed the following items mustapha (where applicable) has been applied. Labs Laboratory Tests Test 11/02/19 16:54 11/02/19 18:13 11/02/19 21:20 11/03/19 06:30 Glucose (Fingerstick) 184 mg/dL (70-99) 222 mg/dL (70-99) Hemoglobin 8.0 g/dL (12.0-15.5) 7.0 g/dL (12.0-15.5) Hematocrit 24.7 % (36.0-47.0) 21.5 % (36.0-47.0) Mean Corpuscular Hemoglobin Concent 33 g/dL (31-37) 33 g/dL (31-37) White Blood Count 47.1 x10^3/uL (4.0-11.0) Red Blood Count 2.42 x10^6/uL (3.50-5.40) Mean Corpuscular Volume 89 fL (79-100) Mean Corpuscular Hemoglobin 29 pg (25-35) Red Cell Distribution Width 16.4 % (11.5-14.5) Platelet Count 292 x10^3/uL (140-400) Neutrophils (%) (Auto) 88 % (31-73) Lymphocytes (%) (Auto) 9 % (24-48) Monocytes (%) (Auto) 3 % (0-9) Eosinophils (%) (Auto) 0 % (0-3) Basophils (%) (Auto) 0 % (0-3) Neutrophils # (Auto) 41.5 x10^3/uL (1.8-7.7) Lymphocytes # (Auto) 4.1 x10^3/uL (1.0-4.8) Monocytes # (Auto) 1.3 x10^3/uL (0.0-1.1) Eosinophils # (Auto) 0.1 x10^3/uL (0.0-0.7) Basophils # (Auto) 0.1 x10^3/uL (0.0-0.2) Segmented Neutrophils % 60 % (35-66) Band Neutrophils % 9 % (0-9) Lymphocytes % 10 % (24-48) Monocytes % 2 % (0-10) Metamyelocytes % 6 % (0-0) Myelocytes % 9 % (0-0) Promyelocytes % 4 % (0-0) Nucleated Red Blood Cells 3 Platelet Estimate Adequate (ADEQUATE) Polychromasia Occasional Anisocytosis Slight Sodium Level 139 mmol/L (136-145) Potassium Level 3.9 mmol/L (3.5-5.1) Chloride Level 106 mmol/L (98-107) Carbon Dioxide Level 28 mmol/L (21-32) Anion Gap 5 (6-14) Blood Urea Nitrogen 21 mg/dL (7-20) Creatinine 0.6 mg/dL (0.6-1.0) Estimated GFR (Cockcroft-Gault) 107.2 Glucose Level 162 mg/dL (70-99) Calcium Level 7.4 mg/dL (8.5-10.1) Test 11/03/19 12:17 11/03/19 16:50 11/03/19 21:15 11/04/19 06:00 Glucose (Fingerstick) 178 mg/dL (70-99) 131 mg/dL (70-99) 172 mg/dL (70-99) White Blood Count 37.2 x10^3/uL (4.0-11.0) Red Blood Count 2.33 x10^6/uL (3.50-5.40) Hemoglobin 6.9 g/dL (12.0-15.5) Hematocrit 21.1 % (36.0-47.0) Mean Corpuscular Volume 91 fL (79-100) Mean Corpuscular Hemoglobin 30 pg (25-35) Mean Corpuscular Hemoglobin Concent 33 g/dL (31-37) Red Cell Distribution Width 16.5 % (11.5-14.5) Platelet Count 275 x10^3/uL (140-400) Neutrophils (%) (Auto) 86 % (31-73) Lymphocytes (%) (Auto) 10 % (24-48) Monocytes (%) (Auto) 3 % (0-9) Eosinophils (%) (Auto) 1 % (0-3) Basophils (%) (Auto) 0 % (0-3) Neutrophils # (Auto) 32.0 x10^3/uL (1.8-7.7) Lymphocytes # (Auto) 3.8 x10^3/uL (1.0-4.8) Monocytes # (Auto) 1.2 x10^3/uL (0.0-1.1) Eosinophils # (Auto) 0.2 x10^3/uL (0.0-0.7) Basophils # (Auto) 0.1 x10^3/uL (0.0-0.2) Sodium Level 138 mmol/L (136-145) Potassium Level 3.6 mmol/L (3.5-5.1) Chloride Level 103 mmol/L (98-107) Carbon Dioxide Level 29 mmol/L (21-32) Anion Gap 6 (6-14) Blood Urea Nitrogen 14 mg/dL (7-20) Creatinine 0.6 mg/dL (0.6-1.0) Estimated GFR (Cockcroft-Gault) 107.2 Glucose Level 154 mg/dL (70-99) Calcium Level 7.5 mg/dL (8.5-10.1) Test 11/04/19 11:50 Glucose (Fingerstick) 148 mg/dL (70-99) Laboratory Tests Test 11/03/19 16:50 11/03/19 21:15 11/04/19 06:00 11/04/19 11:50 Glucose (Fingerstick) 131 mg/dL (70-99) 172 mg/dL (70-99) 148 mg/dL (70-99) White Blood Count 37.2 x10^3/uL (4.0-11.0) Red Blood Count 2.33 x10^6/uL (3.50-5.40) Hemoglobin 6.9 g/dL (12.0-15.5) Hematocrit 21.1 % (36.0-47.0) Mean Corpuscular Volume 91 fL (79-100) Mean Corpuscular Hemoglobin 30 pg (25-35) Mean Corpuscular Hemoglobin Concent 33 g/dL (31-37) Red Cell Distribution Width 16.5 % (11.5-14.5) Platelet Count 275 x10^3/uL (140-400) Neutrophils (%) (Auto) 86 % (31-73) Lymphocytes (%) (Auto) 10 % (24-48) Monocytes (%) (Auto) 3 % (0-9) Eosinophils (%) (Auto) 1 % (0-3) Basophils (%) (Auto) 0 % (0-3) Neutrophils # (Auto) 32.0 x10^3/uL (1.8-7.7) Lymphocytes # (Auto) 3.8 x10^3/uL (1.0-4.8) Monocytes # (Auto) 1.2 x10^3/uL (0.0-1.1) Eosinophils # (Auto) 0.2 x10^3/uL (0.0-0.7) Basophils # (Auto) 0.1 x10^3/uL (0.0-0.2) Sodium Level 138 mmol/L (136-145) Potassium Level 3.6 mmol/L (3.5-5.1) Chloride Level 103 mmol/L (98-107) Carbon Dioxide Level 29 mmol/L (21-32) Anion Gap 6 (6-14) Blood Urea Nitrogen 14 mg/dL (7-20) Creatinine 0.6 mg/dL (0.6-1.0) Estimated GFR (Cockcroft-Gault) 107.2 Glucose Level 154 mg/dL (70-99) Calcium Level 7.5 mg/dL (8.5-10.1) Microbiology 11/01/19 Blood Culture - Preliminary, Resulted NO GROWTH AFTER 2 DAYS Medications Current Medications Sodium Chloride 500 ml @ 500 mls/hr 1X ONCE IV Last administered on 11/01/19 at 13:00; Start 11/01/19 at 13:00; Stop 11/01/19 at 13:59; Status DC Ondansetron HCl (Zofran) 4 mg 1X ONCE IV Last administered on 11/01/19at 13:26; Start 11/01/19 at 13:00; Stop 11/01/19 at 13:13; Status DC Hydromorphone HCl (Dilaudid) 0.5 mg 1X STAT IVP Last administered on 11/01/19at 13:26; Start 11/01/19 at 12:59; Stop 11/01/19 at 13:13; Status DC Iohexol (Omnipaque 300 Mg/ml) 75 ml 1X ONCE IV Last administered on 11/01/19at 14:08; Start 11/01/19 at 13:45; Stop 11/01/19 at 13:46; Status DC Info (CONTRAST GIVEN -- Rx MONITORING) 1 each PRN DAILY PRN MC SEE COMMENTS; Start 11/01/19 at 14:00; Stop 11/03/19 at 13:59; Status DC Hydromorphone HCl (Dilaudid) 0.5 mg 1X STAT IVP Last administered on 11/01/19at 16:53; Start 11/01/19 at 16:21; Stop 11/01/19 at 16:23; Status DC Sodium Chloride 1,000 ml @ 1,000 mls/hr 1X ONCE IV Last administered on 11/01/19at 16:30; Start 11/01/19 at 16:30; Stop 11/01/19 at 17:29; Status DC Sodium Chloride 500 ml @ 500 mls/hr 1X ONCE IV Last administered on 11/01/19at 16:30; Start 11/01/19 at 16:30; Stop 11/01/19 at 17:29; Status DC Albuterol Sulfate (Ventolin Neb Soln) 2.5 mg PRN Q6HRS PRN INH SHORTNESS OF BREATH; Start 11/01/19 at 16:30 Alprazolam (Xanax) 0.25 mg PRN TID PRN PO anxiety; Start 11/01/19 at 16:30; Stop 11/01/19 at 17:11; Status DC Amlodipine Besylate (Norvasc) 5 mg DAILY PO Last administered on 11/04/19 07:41; Start 11/02/19 at 09:00 Cyclosporine (Restasis) 1 drop BID OU Last administered on 11/04/19 07:42; Start 11/01/19 at 21:00 Fluticasone Propionate (Flonase) 2 spray DAILY NS Last administered on 11/04/19 07:42; Start 11/02/19 at 09:00 Lactobacillus Rhamnosus (Culturelle) 1 cap BID PO Last administered on 11/04/19 07:40; Start 11/01/19 at 21:00 Lidocaine (Lidoderm) 1 patch DAILY TP ; Start 11/02/19 at 09:00; Stop 11/01/19 at 20:34; Status DC Metoprolol Succinate (Toprol Xl) 100 mg HS PO Last administered on 11/01/19 20:41; Start 11/01/19 at 21:00 Nystatin (Nystop) 1 raza BID TP Last administered on 11/04/19 07:41; Start 11/01/19 at 21:00 Pantoprazole Sodium (Protonix) 40 mg DAILYAC PO Last administered on 11/04/19 07:41; Start 11/02/19 at 07:30 Senna/Docusate Sodium (Senna Plus) 1 tab BID PO Last administered on 11/04/19 07:40; Start 11/01/19 at 21:00 Sucralfate (Carafate) 1 gm TIDAC PO Last administered on 11/04/19at 11:37; Start 11/01/19 at 17:30 Tramadol HCl (Ultram) 50 mg PRN Q8HRS PRN PO PAIN; Start 11/01/19 at 16:30; Stop 11/01/19 at 19:43; Status DC Insulin Glargine (Lantus Syringe) 30 unit QHS SQ Last administered on 11/03/19 21:12; Start 11/01/19 at 21:00 Ondansetron HCl (Zofran Odt) 8 mg PRN Q8HRS PRN PO NAUSEA/VOMITING Last administered on 11/02/19 07:48; Start 11/01/19 at 17:15 Polyethylene Glycol (miraLAX PACKET) 17 gm PRN DAILY PRN PO CONSTIPATION Last administered on 11/02/19 12:42; Start 11/01/19 at 17:11 Atorvastatin Calcium (Lipitor) 80 mg QHS PO Last administered on 11/03/19 21:18; Start 11/01/19 at 21:00 Insulin Human Lispro (HumaLOG) 0-9 UNITS TIDAC SQ Last administered on 11/04/19 07:44; Start 11/01/19 at 16:30 Dextrose (Dextrose 50%-Water Syringe) 12.5 gm PRN Q15MIN PRN IV SEE COMMENTS; Start 11/01/19 at 16:30 Ondansetron HCl (Zofran) 4 mg PRN Q8HRS PRN IV NAUSEA/VOMITING; Start 11/01/19 at 16:30; Stop 11/02/19 at 16:29; Status DC Alprazolam (Xanax) 0.25 mg PRN TID PRN PO anxiety Last administered on 11/04/19 05:58; Start 11/01/19 at 17:11 Miscellaneous (Lidoderm Patch Removal) 1 ea QHS MC ; Start 11/01/19 at 21:00; Stop 11/01/19 at 20:34; Status DC Ceftriaxone Sodium (Rocephin) 1 gm QHS IVP Last administered on 11/03/19 21:19; Start 11/01/19 at 18:45 Tramadol HCl (Ultram) 50 mg PRN Q8HRS PRN PO PAIN Last administered on 11/04/19 12:54; Start 11/01/19 at 19:45 Hydromorphone HCl (Dilaudid) 1 mg PRN Q4HRS PRN IV PAIN Last administered on 11/04/19 13:48; Start 11/01/19 at 20:15 Lidocaine (Lidoderm) 1 patch QHS TP Last administered on 11/03/19 21:19; Start 11/01/19 at 21:00 Miscellaneous (Lidoderm Patch Removal) 1 ea DAILY MC Last administered on 11/04/19 07:42; Start 11/02/19 at 09:00 Albumin Human 500 ml @ 125 mls/hr 1X ONCE IV ; Start 11/02/19 at 02:00; Stop 11/02/19 at 05:59; Status Cancel Acetaminophen (Tylenol) 650 mg 1X PRN PRN PO PRE-TRANSFUSION; Start 11/02/19 at 06:45; Stop 11/03/19 at 14:16; Status DC Diphenhydramine HCl (Benadryl Oral Elixir) 12.5 mg 1X PRN PRN PO PRE-TRANSFUS ION; Start 11/02/19 at 06:45; Stop 11/03/19 at 14:16; Status DC Diphenhydramine HCl (Benadryl) 25 mg PRN 1X PRN PO PRE-TRANSFUSION; Start 11/02/19 at 06:45; Stop 11/03/19 at 14:16; Status DC Lactulose (LACTULOSE 300ML for RECTAL) 200 gm Q6HRS ID Last administered on 11/02/19at 18:00; Start 11/02/19 at 18:00 Sodium Chloride 1,000 ml @ 100 mls/hr Q10H IV Last administered on 11/04/19at 04:13; Start 11/02/19 at 12:00 Active Scripts Active Enoxaparin Sodium 120 Mg/0.8 Ml Disp.syrin 120 Mg SQ Q12HR 28 Days Dexamethasone 4 Mg Tablet 4 Mg PO BID 14 Days Culturelle (Lactobacillus Rhamnosus Gg) 1 Each Cap.sprink 1 Cap PO BID 30 Days Amlodipine Besylate 5 Mg Tablet 5 Mg PO DAILY 30 Days Cefdinir 300 Mg Capsule 300 Mg PO BID 10 Days Reported Cymbalta (Duloxetine Hcl) 60 Mg Capsule.dr 1 Cap PO BID Lyrica (Pregabalin) 150 Mg Capsule 1 Cap PO BID Novolog (Insulin Aspart) 100 Unit/1 Ml Cartridge 10-45 Unit SQ QIDACHS Levemir (Insulin Detemir) 100 Unit/1 Ml Vial 30 Unit SQ HS Linzess (Linaclotide) 145 Mcg Capsule 145 Mcg PO PRN PRN Crestor (Rosuvastatin Calcium) 40 Mg Tablet 0.5 Tab PO DAILY Polyethylene Glycol 3350 2,500 Gm Powder 17 Gm PO PRN PRN Xanax (Alprazolam) 1 Mg Tablet 1 Tab PO TID Restasis (Cyclosporine) 1 Each Droperette 1 Drop EACHEYE BID Proair Hfa Inhaler (Albuterol Sulfate) 8.5 Gm Hfa.aer.ad 1 Puff INH PRN Q6HRS PRN Tramadol Hcl 50 Mg Tablet 1 Tab PO PRN Q8HRS PRN Ondansetron Hcl 4 Mg Tablet 2 Tab PO PRN Q8HRS PRN Nystatin 15 Gm Powder 1 Raza TP BID Lidocaine PATCH (Lidocaine) 1 Each Adh..patch 1 Each TP DAILY Fluticasone Propionate Nasal Wel[place] (Fluticasone Propionate) 16 Gm Weldon.susp 2 [place]don NS DAILY Percocet 5-325 Mg Tablet (Oxycodone/Acetaminophen) 1 Each Tablet 1-2 Tab PO Q4-6HRS PRN LAST DOSE AT NEXT DOSE Senna-Docusate Sodium Tablet (Sennosides/Docusate Sodium) 1 Each Tablet 1 Each PO BID LAST DOSE THIS AM NEXT DOSE TONIGHT Robaxin-750 (Methocarbamol) 750 Mg Tablet 1 Tab PO TID LAST DOSE AT 1400 (2PM) MAY HAVE THE NEXT DOSE AT 10 PM Protonix (Pantoprazole Sodium) 40 Mg Tablet.dr 40 Mg PO DAILY LST DOSE THIS AM NEXT DOSE TOMORROW AM Carafate (Sucralfate) 1 Gm Tablet 1 Tab PO TID Meds not given this hospital admission. May resume home medications as approved by Physician. MAY TAKE WHEN AVAILABLE Xarelto (Rivaroxaban) 15 Mg Tablet 15 Mg PO DAILY Meds not given this hospital admission. May resume home medications as approved by Physician. MAY RESUME WHEN AVAILABLE Metoprolol Succinate ( Xl ) (Metoprolol Succinate) 100 Mg Tab.er.24h 100 Mg PO HS LAST DOSE THIS AM NEXT DOSE TOMORROW AM Vitals/I & O Vital Sign - Last 24 Hours 11/03/19 11/03/19 11/03/19 11/03/19 15:00 15:43 16:00 16:00 Temp 99.0 99.0 Pulse 97 98 Resp 16 20 20 B/P (MAP) 112/64 (80) 109/58 (75) Pulse Ox 99 100 99 O2 Delivery Room Air Room Air Room Air Room Air O2 Flow Rate 2.0 11/03/19 11/03/19 11/03/19 11/03/19 16:44 17:00 18:00 18:14 Pulse 108 100 Resp 12 22 20 22 B/P (MAP) 116/65 (82) 104/66 (79) Pulse Ox 100 96 96 100 O2 Delivery Room Air Room Air Room Air Room Air O2 Flow Rate 2.0 2.0 11/03/19 11/03/19 11/03/19 11/03/19 19:00 20:00 20:00 21:00 Temp 98.4 98.4 Pulse 99 110 110 Resp 20 20 B/P (MAP) 99/60 (73) 107/60 (76) 92/60 Pulse Ox 96 96 O2 Delivery Room Air Room Air Room Air 11/03/19 11/03/19 11/03/19 11/03/19 21:00 21:19 22:00 23:00 Pulse 99 116 114 Resp 20 20 20 B/P (MAP) 112/60 (77) 120/70 (87) 123/71 (88) Pulse Ox 97 96 95 98 O2 Delivery Room Air Room Air Room Air Room Air O2 Flow Rate 2.0 11/03/19 11/04/19 11/04/19 11/04/19 23:52 00:08 01:00 02:00 Pulse 115 110 Resp 20 20 B/P (MAP) 126/68 (87) 117/71 (86) Pulse Ox 98 96 97 O2 Delivery Room Air Room Air Room Air Room Air O2 Flow Rate 2.0 11/04/19 11/04/19 11/04/19 11/04/19 04:00 04:15 05:00 06:00 Temp 98.3 98.3 Pulse 105 106 101 Resp 20 20 16 B/P (MAP) 120/73 (89) 118/73 (88) 137/77 (97) Pulse Ox 97 95 98 O2 Delivery Room Air Room Air Room Air Room Air 11/04/19 11/04/19 11/04/19 11/04/19 07:00 07:22 07:23 07:41 Pulse 103 103 Resp 17 17 17 B/P (MAP) 123/71 (88) 123/71 Pulse Ox 97 97 97 O2 Delivery Room Air Room Air 11/04/19 11/04/19 11/04/19 11/04/19 08:00 08:00 08:13 09:00 Temp 98.3 98.3 98.3 98.3 Pulse 100 101 104 Resp 17 16 18 B/P (MAP) 116/72 (87) 116/72 140/87 (104) Pulse Ox 96 98 O2 Delivery Room Air Room Air Room Air 11/04/19 11/04/19 11/04/19 11/04/19 09:29 10:00 10:17 10:30 Temp 98.4 98.4 Pulse 100 99 Resp 22 16 17 16 B/P (MAP) 123/66 (85) 134/71 Pulse Ox 98 98 98 O2 Delivery Room Air Room Air Room Air 11/04/19 11/04/19 11/04/19 11/04/19 11:00 12:00 12:00 12:54 Temp 98.3 98.3 Pulse 100 104 Resp 16 20 17 B/P (MAP) 134/71 (92) 94/62 (73) Pulse Ox 98 98 O2 Delivery Room Air Room Air Room Air Room Air O2 Flow Rate 2.0 11/04/19 11/04/19 11/04/19 11/04/19 13:00 13:48 14:00 14:11 Pulse 108 112 Resp 19 21 19 B/P (MAP) 103/58 (73) 96/62 (73) Pulse Ox 98 O2 Delivery Room Air Room Air Room Air Room Air O2 Flow Rate 2.0 11/04/19 14:11 Resp 19 O2 Delivery Room Air Intake and Output 11/03/19 11/03/19 11/04/19 15:00 23:00 07:00 Intake Total 240 ml 1400 ml 1602 ml Output Total 550 ml 275 ml 575 ml Balance -310 ml 1125 ml 1027 ml Nutrition Consultation Dietary Evaluation: Recommendations by RD: Increase Calorie Intake, Protein supplementation Comments: REC ADA/cardiac diet, will adjust diet order as needed REC glucerna w/dinner trays and prn Ok to liberalize diet as needed to promote PO intake Expected Outcomes/Goals: PO intake to meet >75% est needs Interpretation of weight loss: >5% in 1 month Malnutrition Findings: Food and Nutrition Intake (Sev: <50% est energy req 5days Weight Status: Morbidly Obese DEVEN BAZZI MD Nov 04, 2019 14:42
[2019-11-04] MEDS ORDERED: LACTULOSE 20 GM/30 ML SOLUTION. PO PRN (14:45)
--- NOTE | 2019-11-04 16:55 | NUR ---
Received orders to transfer pt to medical floor. Report called. VSS. PT here working with pt. Assisted pt to w/c. Pt to 563 per w/c. 2 bags of personal belongings, phone, and chargers all transferred with pt.
[2019-11-04] MEDS: oxyCODONE IR 5 MG TABLET PO PRN (17:47)
[2019-11-04] MEDS: INSULIN GLARGINE SYRINGE. SQ SCH (21:00)
[2019-11-04] MEDS: ATORVASTATIN CALCIUM 40 MG TABLET. PO SCH (21:53)
[2019-11-04] MEDS: cefTRIAXone IV Push 1 GM VIAL. IVP SCH (21:54)
[2019-11-04] MEDS: LIDOCAINE (700MG/PATCH) PATCH. TP SCH (21:55)
[2019-11-04] MEDS: METOPROLOL SUCC 24HR ER 100 MG TAB.ER.24H. PO SCH (21:56)
[2019-11-05] VITALS (18 sets, daily range): BP systolic 96–169; BP diastolic 59–99
[2019-11-05] MEDS: HYDROmorphone 2 MG/ML VIAL IV PRN ×5 (00:01→22:43)
[2019-11-05] MEDS: IV NORMAL SALINE 1000ML BAG 1,000 ML IV SCH ×3 (03:31→17:38)
[2019-11-05] MEDS: oxyCODONE IR 5 MG TABLET PO PRN ×3 (03:31→17:38)
[2019-11-05] MEDS: INSULIN LISPRO 300 UNITS/3 ML VIAL. SQ SCH ×3 (07:30→16:30)
[2019-11-05] MEDS: SUCRALFATE 1 GM TABLET. PO SCH ×3 (07:30→17:38)
[2019-11-05] MEDS ORDERED: LIDOCAINE WITH 8.4% SOD BICARB 3 ML DISP.SYRIN. ONE ×2 (08:13→08:14)
[2019-11-05] MEDS ORDERED: fentaNYL PF VIAL 100 MCG/2 ML VIAL ONE (08:40)
[2019-11-05] MEDS ORDERED: MIDAZOLAM HCL/PF 2 MG/2 ML VIAL. ONE (08:40)
[2019-11-05] MEDS ORDERED: MIDAZOLAM HCL/PF 2 MG/2 ML VIAL. IV ONE (08:45)
[2019-11-05] MEDS ORDERED: LIDOCAINE WITH 8.4% SOD BICARB 3 ML DISP.SYRIN. IJ ONE (08:45)
[2019-11-05] MEDS ORDERED: fentaNYL PF VIAL 100 MCG/2 ML VIAL IV ONE (08:45)
[2019-11-05] MEDS: PATCH REMOVAL. MC SCH (09:00)
--- NOTE | 2019-11-05 09:47 | PDOC ---
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 BMBx done today (was too unstable tuesday) Leukocytosis: Bone marrow biopsy done today, temperature 100.9, on antibiotics Hematoma: Improving as anticoagulation has stopped (held currently) Anemia: transfuse prn Hb <7, suspect AOCI Brain mass: Hematologic? Await bone marrow biopsy, recheck CT head as her VYAS is worsening, not on steroids Thank you kindly and please do not hesitate to call with questions. OBJECTIVE Vital Signs Vital Signs Date Time Temp Pulse Resp B/P (MAP) Pulse Ox O2 Delivery O2 Flow Rate FiO2 11/05/19 09:15 91 19 148/95 (112) 91 Nasal Cannula 2.0 11/05/19 09:05 95 16 100 Nasal Cannula 2.0 11/05/19 09:05 95 16 100 Nasal Cannula 2.0 11/05/19 09:00 101 10 100 Nasal Cannula 2.0 11/05/19 08:55 92 17 100 Nasal Cannula 2.0 11/05/19 08:50 92 20 100 Nasal Cannula 2.0 11/05/19 08:45 16 100 Nasal Cannula 2.0 11/05/19 07:00 97.8 89 19 126/77 (93) 93 Room Air 97.8 11/05/19 03:15 97.4 61 18 169/78 (108) 93 Room Air 97.4 11/04/19 23:00 100.9 116 20 114/74 (87) 98 Room Air 100.9 11/04/19 21:56 115 120/79 11/04/19 20:00 Room Air 11/04/19 18:00 99.1 120 20 108/66 (80) 96 Room Air 99.1 11/04/19 17:47 Room Air 11/04/19 15:00 98.3 110 20 118/68 (85) Room Air 98.3 11/04/19 14:11 19 Room Air 11/04/19 14:11 19 Room Air 11/04/19 14:00 112 21 96/62 (73) Room Air 11/04/19 13:48 21 98 Room Air 2.0 11/04/19 13:00 108 19 103/58 (73) Room Air 11/04/19 12:54 17 98 Room Air 2.0 11/04/19 12:00 Room Air 11/04/19 12:00 98.3 104 20 94/62 (73) Room Air 98.3 11/04/19 11:00 100 16 134/71 (92) 98 Room Air 11/04/19 10:30 98.4 99 16 134/71 98.4 11/04/19 10:17 17 98 Room Air 11/04/19 10:00 100 16 123/66 (85) 98 Room Air I & O Intake and Output 11/05/19 07:00 Intake Total 1540 ml Output Total 6250 ml Balance -4710 ml Intake Oral 490 ml IV Total 1000 ml Blood Product IV Normal Saline Flush 50 ml Output Urine Total 6250 ml COMMENT Lab Laboratory Tests Test 11/04/19 11:50 11/04/19 18:29 11/04/19 21:12 11/05/19 08:00 Glucose (Fingerstick) 148 mg/dL (70-99) 141 mg/dL (70-99) 158 mg/dL (70-99) 163 mg/dL (70-99) Nutrition Consultation Dietary Evaluation: Recommendations by RD: Increase Calorie Intake, Protein supplementation Comments: REC ADA/cardiac diet, will adjust diet order as needed REC glucerna w/dinner trays and prn Ok to liberalize diet as needed to promote PO intake Expected Outcomes/Goals: PO intake to meet >75% est needs Interpretation of weight loss: >5% in 1 month Malnutrition Findings: Food and Nutrition Intake (Sev: <50% est energy req 5days Weight Status: Morbidly Obese ENEDELIA HUYNH MD Nov 05, 2019 09:47
--- NOTE | 2019-11-05 10:18 | PDOC ---
PROGRESS NOTES Subjective Subjective Reports VYAS somewhat increased. Received marrow bx this AM. ROS - denies n/v, denies soa, denies cp Objective Objective Vital Signs Date Time Temp Pulse Resp B/P (MAP) Pulse Ox O2 Delivery O2 Flow Rate FiO2 11/05/19 09:15 91 19 148/95 (112) 91 Nasal Cannula 2.0 11/05/19 07:00 97.8 97.8 Intake and Output 11/05/19 07:00 Intake Total 1540 ml Output Total 6250 ml Balance -4710 ml Intake Oral 490 ml IV Total 1000 ml Blood Product IV Normal Saline Flush 50 ml Output Urine Total 6250 ml Physical Exam Physical Exam AAOx4, NAD, LLANES stable, sensation unchanged Assessment Assessment Problems Medical Problems: (1) Abdominal hemorrhage Status: Acute (2) Generalized weakness Status: Acute (3) Lactic acidosis Status: Acute (4) Leukocytosis Status: Acute Plan Plan of Care -await marrow bx result -crani on hold for now in light of new issues -review CT head when complete Comment Review of Relevant I have reviewed the following items mustapha (where applicable) has been applied. Labs Laboratory Tests Test 11/03/19 12:17 11/03/19 16:50 11/03/19 21:15 11/04/19 06:00 Glucose (Fingerstick) 178 mg/dL (70-99) 131 mg/dL (70-99) 172 mg/dL (70-99) White Blood Count 37.2 x10^3/uL (4.0-11.0) Red Blood Count 2.33 x10^6/uL (3.50-5.40) Hemoglobin 6.9 g/dL (12.0-15.5) Hematocrit 21.1 % (36.0-47.0) Mean Corpuscular Volume 91 fL (79-100) Mean Corpuscular Hemoglobin 30 pg (25-35) Mean Corpuscular Hemoglobin Concent 33 g/dL (31-37) Red Cell Distribution Width 16.5 % (11.5-14.5) Platelet Count 275 x10^3/uL (140-400) Neutrophils (%) (Auto) 86 % (31-73) Lymphocytes (%) (Auto) 10 % (24-48) Monocytes (%) (Auto) 3 % (0-9) Eosinophils (%) (Auto) 1 % (0-3) Basophils (%) (Auto) 0 % (0-3) Neutrophils # (Auto) 32.0 x10^3/uL (1.8-7.7) Lymphocytes # (Auto) 3.8 x10^3/uL (1.0-4.8) Monocytes # (Auto) 1.2 x10^3/uL (0.0-1.1) Eosinophils # (Auto) 0.2 x10^3/uL (0.0-0.7) Basophils # (Auto) 0.1 x10^3/uL (0.0-0.2) Sodium Level 138 mmol/L (136-145) Potassium Level 3.6 mmol/L (3.5-5.1) Chloride Level 103 mmol/L (98-107) Carbon Dioxide Level 29 mmol/L (21-32) Anion Gap 6 (6-14) Blood Urea Nitrogen 14 mg/dL (7-20) Creatinine 0.6 mg/dL (0.6-1.0) Estimated GFR (Cockcroft-Gault) 107.2 Glucose Level 154 mg/dL (70-99) Calcium Level 7.5 mg/dL (8.5-10.1) Test 11/04/19 11:50 11/04/19 18:29 11/04/19 21:12 11/05/19 08:00 Glucose (Fingerstick) 148 mg/dL (70-99) 141 mg/dL (70-99) 158 mg/dL (70-99) 163 mg/dL (70-99) Laboratory Tests Test 11/04/19 11:50 11/04/19 18:29 11/04/19 21:12 11/05/19 08:00 Glucose (Fingerstick) 148 mg/dL (70-99) 141 mg/dL (70-99) 158 mg/dL (70-99) 163 mg/dL (70-99) Microbiology 11/01/19 Blood Culture - Preliminary, Resulted NO GROWTH AFTER 3 DAYS Medications Current Medications Sodium Chloride 500 ml @ 500 mls/hr 1X ONCE IV Last administered on 11/01/19at 13:00; Start 11/01/19 at 13:00; Stop 11/01/19 at 13:59; Status DC Ondansetron HCl (Zofran) 4 mg 1X ONCE IV Last administered on 11/01/19at 13:26; Start 11/01/19 at 13:00; Stop 11/01/19 at 13:13; Status DC Hydromorphone HCl (Dilaudid) 0.5 mg 1X STAT IVP Last administered on 11/01/19at 13:26; Start 11/01/19 at 12:59; Stop 11/01/19 at 13:13; Status DC Iohexol (Omnipaque 300 Mg/ml) 75 ml 1X ONCE IV Last administered on 11/01/19at 14:08; Start 11/01/19 at 13:45; Stop 11/01/19 at 13:46; Status DC Info (CONTRAST GIVEN -- Rx MONITORING) 1 each PRN DAILY PRN MC SEE COMMENTS; Start 11/01/19 at 14:00; Stop 11/03/19 at 13:59; Status DC Hydromorphone HCl (Dilaudid) 0.5 mg 1X STAT IVP Last administered on 11/01/19at 16:53; Start 11/01/19 at 16:21; Stop 11/01/19 at 16:23; Status DC Sodium Chloride 1,000 ml @ 1,000 mls/hr 1X ONCE IV Last administered on 11/01/19at 16:30; Start 11/01/19 at 16:30; Stop 11/01/19 at 17:29; Status DC Sodium Chloride 500 ml @ 500 mls/hr 1X ONCE IV Last administered on 11/01/19at 16:30; Start 11/01/19 at 16:30; Stop 11/01/19 at 17:29; Status DC Albuterol Sulfate (Ventolin Neb Soln) 2.5 mg PRN Q6HRS PRN INH SHORTNESS OF BREATH; Start 11/01/19 at 16:30 Alprazolam (Xanax) 0.25 mg PRN TID PRN PO anxiety; Start 11/01/19 at 16:30; Stop 11/01/19 at 17:11; Status DC Amlodipine Besylate (Norvasc) 5 mg DAILY PO Last administered on 11/04/19at 07:41; Start 11/02/19 at 09:00 Cyclosporine (Restasis) 1 drop BID OU Last administered on 11/04/19at 21:53; Start 11/01/19 at 21:00 Fluticasone Propionate (Flonase) 2 spray DAILY NS Last administered on 11/04/19 07:42; Start 11/02/19 at 09:00 Lactobacillus Rhamnosus (Culturelle) 1 cap BID PO Last administered on 11/04/19 21:53; Start 11/01/19 at 21:00 Lidocaine (Lidoderm) 1 patch DAILY TP ; Start 11/02/19 at 09:00; Stop 11/01/19 at 20:34; Status DC Metoprolol Succinate (Toprol Xl) 100 mg HS PO Last administered on 11/04/19 21:56; Start 11/01/19 at 21:00 Nystatin (Nystop) 1 raza BID TP Last administered on 11/04/19 07:41; Start 11/01/19 at 21:00 Pantoprazole Sodium (Protonix) 40 mg DAILYAC PO Last administered on 11/04/19 07:41; Start 11/02/19 at 07:30 Senna/Docusate Sodium (Senna Plus) 1 tab BID PO Last administered on 11/04/19 21:54; Start 11/01/19 at 21:00 Sucralfate (Carafate) 1 gm TIDAC PO Last administered on 11/04/19 11:37; Start 11/01/19 at 17:30 Tramadol HCl (Ultram) 50 mg PRN Q8HRS PRN PO PAIN; Start 11/01/19 at 16:30; Stop 11/01/19 at 19:43; Status DC Insulin Glargine (Lantus Syringe) 30 unit QHS SQ Last administered on 11/04/19 21:00; Start 11/01/19 at 21:00 Ondansetron HCl (Zofran Odt) 8 mg PRN Q8HRS PRN PO NAUSEA/VOMITING Last administered on 11/02/19 07:48; Start 11/01/19 at 17:15 Polyethylene Glycol (miraLAX PACKET) 17 gm PRN DAILY PRN PO CONSTIPATION Last administered on 11/02/19 12:42; Start 11/01/19 at 17:11 Atorvastatin Calcium (Lipitor) 80 mg QHS PO Last administered on 11/04/19 21:53; Start 11/01/19 at 21:00 Insulin Human Lispro (HumaLOG) 0-9 UNITS TIDAC SQ Last administered on 11/04/19at 07:44; Start 11/01/19 at 16:30 Dextrose (Dextrose 50%-Water Syringe) 12.5 gm PRN Q15MIN PRN IV SEE COMMENTS; Start 11/01/19 at 16:30 Ondansetron HCl (Zofran) 4 mg PRN Q8HRS PRN IV NAUSEA/VOMITING; Start 11/01/19 at 16:30; Stop 11/02/19 at 16:29; Status DC Alprazolam (Xanax) 0.25 mg PRN TID PRN PO anxiety Last administered on 11/04/19 21:53; Start 11/01/19 at 17:11 Miscellaneous (Lidoderm Patch Removal) 1 ea QHS MC ; Start 11/01/19 at 21:00; Stop 11/01/19 at 20:34; Status DC Ceftriaxone Sodium (Rocephin) 1 gm QHS IVP Last administered on 11/04/19at 21:54; Start 11/01/19 at 18:45 Tramadol HCl (Ultram) 50 mg PRN Q8HRS PRN PO PAIN Last administered on 11/04 21:56; Start 11/01/19 at 19:45 Hydromorphone HCl (Dilaudid) 1 mg PRN Q4HRS PRN IV PAIN Last administered on 11/05/19 07:27; Start 11/01/19 at 20:15 Lidocaine (Lidoderm) 1 patch QHS TP Last administered on 11/04/19at 21:55; Start 11/01/19 at 21:00 Miscellaneous (Lidoderm Patch Removal) 1 ea DAILY MC Last administered on 11/04/19at 07:42; Start 11/02/19 at 09:00 Albumin Human 500 ml @ 125 mls/hr 1X ONCE IV ; Start 11/02/19 at 02:00; Stop 11/02/19 at 05:59; Status Cancel Acetaminophen (Tylenol) 650 mg 1X PRN PRN PO PRE-TRANSFUSION; Start 11/02/19 at 06:45; Stop 11/03/19 at 14:16; Status DC Diphenhydramine HCl (Benadryl Oral Elixir) 12.5 mg 1X PRN PRN PO PRE- TRANSFUSION; Start 11/02/19 at 06:45; Stop 11/03/19 at 14:16; Status DC Diphenhydramine HCl (Benadryl) 25 mg PRN 1X PRN PO PRE-TRANSFUSION; Start 11/02/19 at 06:45; Stop 11/03/19 at 14:16; Status DC Lactulose (LACTULOSE 300ML for RECTAL) 200 gm Q6HRS SD Last administered on 11/02/19at 18:00; Start 11/02/19 at 18:00; Stop 11/04/19 at 14:44; Status DC Sodium Chloride 1,000 ml @ 100 mls/hr Q10H IV Last administered on 11/05/19at 03:31; Start 11/02/19 at 12:00 Lactulose (Lactulose) 20 gm PRN DAILY PRN PO CONSTIPATION; Start 11/04/19 at 14:45 Oxycodone HCl (Roxicodone) 5 mg PRN Q6HRS PRN PO MODERATE TO SEVERE PAIN Last administered on 11/05/19at 03:31; Start 11/04/19 at 14:45 Lidocaine HCl (Buffered Lidocaine 1%) 3 ml STK-MED ONCE .ROUTE ; Start 11/05/19 at 08:13; Stop 11/05/19 at 08:13; Status DC Lidocaine HCl (Buffered Lidocaine 1%) 3 ml STK-MED ONCE .ROUTE ; Start 11/05/19 at 08:14; Stop 11/05/19 at 08:14; Status DC Midazolam HCl (Versed) 2 mg STK-MED ONCE .ROUTE ; Start 11/05/19 at 08:40; Stop 11/05/19 at 08:40; Status DC Fentanyl Citrate (Fentanyl 2ml Vial) 100 mcg STK-MED ONCE .ROUTE ; Start 11/05/19 at 08:40; Stop 11/05/19 at 08:41; Status DC Lidocaine HCl (Buffered Lidocaine 1%) 3 ml 1X ONCE IJ Last administered on 11/05/19at 08:45; Start 11/05/19 at 08:45; Stop 11/05/19 at 08:50; Status DC Midazolam HCl (Versed) 2 mg 1X ONCE IV Last administered on 11/05/19at 08:45; Start 11/05/19 at 08:45; Stop 11/05/19 at 08:50; Status DC Fentanyl Citrate (Fentanyl 2ml Vial) 100 mcg 1X ONCE IV Last administered on 11/05/19at 08:45; Start 11/05/19 at 08:45; Stop 11/05/19 at 08:50; Status DC Active Scripts Active Enoxaparin Sodium 120 Mg/0.8 Ml Disp.syrin 120 Mg SQ Q12HR 28 Days Dexamethasone 4 Mg Tablet 4 Mg PO BID 14 Days Culturelle (Lactobacillus Rhamnosus Gg) 1 Each Cap.sprink 1 Cap PO BID 30 Days Amlodipine Besylate 5 Mg Tablet 5 Mg PO DAILY 30 Days Cefdinir 300 Mg Capsule 300 Mg PO BID 10 Days Reported Cymbalta (Duloxetine Hcl) 60 Mg Capsule.dr 1 Cap PO BID Lyrica (Pregabalin) 150 Mg Capsule 1 Cap PO BID Novolog (Insulin Aspart) 100 Unit/1 Ml Cartridge 10-45 Unit SQ QIDACHS Levemir (Insulin Detemir) 100 Unit/1 Ml Vial 30 Unit SQ HS Linzess (Linaclotide) 145 Mcg Capsule 145 Mcg PO PRN PRN Crestor (Rosuvastatin Calcium) 40 Mg Tablet 0.5 Tab PO DAILY Polyethylene Glycol 3350 2,500 Gm Powder 17 Gm PO PRN PRN Xanax (Alprazolam) 1 Mg Tablet 1 Tab PO TID Restasis (Cyclosporine) 1 Each Droperette 1 Drop EACHEYE BID Proair Hfa Inhaler (Albuterol Sulfate) 8.5 Gm Hfa.aer.ad 1 Puff INH PRN Q6HRS PRN Tramadol Hcl 50 Mg Tablet 1 Tab PO PRN Q8HRS PRN Ondansetron Hcl 4 Mg Tablet 2 Tab PO PRN Q8HRS PRN Nystatin 15 Gm Powder 1 Raza TP BID Lidocaine PATCH (Lidocaine) 1 Each Adh..patch 1 Each TP DAILY Fluticasone Propionate Nasal [place] (Fluticasone Propionate) 16 Gm [place].susp 2 [place] NS DAILY Percocet 5-325 Mg Tablet (Oxycodone/Acetaminophen) 1 Each Tablet 1-2 Tab PO Q4-6HRS PRN LAST DOSE AT NEXT DOSE Senna-Docusate Sodium Tablet (Sennosides/Docusate Sodium) 1 Each Tablet 1 Each PO BID LAST DOSE THIS AM NEXT DOSE TONIGHT Robaxin-750 (Methocarbamol) 750 Mg Tablet 1 Tab PO TID LAST DOSE AT 1400 (2PM) MAY HAVE THE NEXT DOSE AT 10 PM Protonix (Pantoprazole Sodium) 40 Mg Tablet.dr 40 Mg PO DAILY LST DOSE THIS AM NEXT DOSE TOMORROW AM Carafate (Sucralfate) 1 Gm Tablet 1 Tab PO TID Meds not given this hospital admission. May resume home medications as approved by Physician. MAY TAKE WHEN AVAILABLE Xarelto (Rivaroxaban) 15 Mg Tablet 15 Mg PO DAILY Meds not given this hospital admission. May resume home medications as approved by Physician. MAY RESUME WHEN AVAILABLE Metoprolol Succinate ( Xl ) (Metoprolol Succinate) 100 Mg Tab.er.24h 100 Mg PO HS LAST DOSE THIS AM NEXT DOSE TOMORROW AM Vitals/I & O Vital Sign - Last 24 Hours 11/04/19 11/04/19 11/04/19 11/04/19 10:17 10:30 11:00 12:00 Temp 98.4 98.3 98.4 98.3 Pulse 99 100 104 Resp 17 16 16 20 B/P (MAP) 134/71 134/71 (92) 94/62 (73) Pulse Ox 98 98 O2 Delivery Room Air Room Air Room Air 11/04/19 11/04/19 11/04/19 11/04/19 12:00 12:54 13:00 13:48 Pulse 108 Resp 17 19 21 B/P (MAP) 103/58 (73) Pulse Ox 98 98 O2 Delivery Room Air Room Air Room Air Room Air O2 Flow Rate 2.0 2.0 11/04/19 11/04/19 11/04/19 11/04/19 14:00 14:11 14:11 15:00 Temp 98.3 98.3 Pulse 112 110 Resp 21 19 19 20 B/P (MAP) 96/62 (73) 118/68 (85) O2 Delivery Room Air Room Air Room Air Room Air 11/04/19 11/04/19 11/04/19 11/04/19 17:47 18:00 20:00 21:56 Temp 99.1 99.1 Pulse 120 115 Resp 20 B/P (MAP) 108/66 (80) 120/79 Pulse Ox 96 O2 Delivery Room Air Room Air Room Air 11/04/19 11/05/19 11/05/19 11/05/19 23:00 03:15 07:00 08:45 Temp 100.9 97.4 97.8 100.9 97.4 97.8 Pulse 116 61 89 Resp 20 18 19 16 B/P (MAP) 114/74 (87) 169/78 (108) 126/77 (93) Pulse Ox 98 93 93 100 O2 Delivery Room Air Room Air Room Air Nasal Cannula O2 Flow Rate 2.0 11/05/19 11/05/19 11/05/19 11/05/19 08:50 08:55 09:00 09:05 Pulse 92 92 101 95 Resp 20 17 10 16 Pulse Ox 100 100 100 100 O2 Delivery Nasal Cannula Nasal Cannula Nasal Cannula Nasal Cannula O2 Flow Rate 2.0 2.0 2.0 2.0 11/05/19 11/05/19 09:05 09:15 Pulse 95 91 Resp 16 19 B/P (MAP) 148/95 (112) Pulse Ox 100 91 O2 Delivery Nasal Cannula Nasal Cannula O2 Flow Rate 2.0 2.0 Intake and Output 11/04/19 11/04/19 11/05/19 15:00 23:00 07:00 Intake Total 290 ml 1250 ml Output Total 550 ml 3000 ml 2700 ml Balance -260 ml -3000 ml -1450 ml Nutrition Consultation Dietary Evaluation: Recommendations by RD: Increase Calorie Intake, Protein supplementation Comments: REC ADA/cardiac diet, will adjust diet order as needed REC glucerna w/dinner trays and prn Ok to liberalize diet as needed to promote PO intake Expected Outcomes/Goals: PO intake to meet >75% est needs Interpretation of weight loss: >5% in 1 month Malnutrition Findings: Food and Nutrition Intake (Sev: <50% est energy req 5days Weight Status: Morbidly Obese BINH WELCH MD Nov 05, 2019 10:18
--- NOTE | 2019-11-05 10:53 | RAD ---
CT-guided bone marrow biopsy. 11/05/2019 8:49 AM Indication: 49 yo f w/ wbc 81, brain mass, early cells on smear, lymph/leuk? wt loss Discussion: The risks and benefits of the procedure, including but not limited to, bleeding and infection were discussed patient. Informed consent was obtained. The patient was brought to the CT scanner and placed in the prone position. A timeout procedure was performed. Trial Judge CT imaging of the pelvis demonstrated left ilium amenable to bone marrow biopsy. The overlying soft tissues were prepped and draped using maximum sterile barrier technique. 1% lidocaine without epinephrine was administered for local anesthesia. Under intermittent CT guidance, an OncControl needle was advanced into the bone marrow of the left iliac crest. 2 Aspirates and 1 core biopsy samples were obtained. Samples were delivered to pathology was present at the time of procedure. The needle was removed and manual pressure held to achieve hemostasis. No immediate complications were identified. The procedure was performed under conscious sedation including continuous cardiopulmonary monitoring via dedicated sedation nurse. Sedation time: 20 minutes Impression: Successful CT-guided bone marrow biopsy of the left iliac crest . PQRS Compliance Statement: One or more of the following individualized dose reduction techniques were utilized for this examination: 1. Automated exposure control 2. Adjustment of the mA and/or kV according to patient size 3. Use of iterative reconstruction technique
[2019-11-05] MEDS: cycloSPORINE 0.05% OPHTH DROPERETTE. OU SCH ×2 (11:18→21:58)
[2019-11-05] MEDS: PANTOPRAZOLE 40 MG TABLET.DR. PO SCH (11:18)
[2019-11-05] MEDS: amLODIPine BESYLATE 5 MG TABLET PO SCH (11:18)
[2019-11-05] MEDS: SENNOSIDES/DOCUSATE 8.6/50MG TABLET. PO SCH ×2 (11:18→21:58)
[2019-11-05] MEDS: LACTOBACILLUS RHAMNOSUS GG 1 CAPSULE. PO SCH ×2 (11:19→21:58)
--- NOTE | 2019-11-05 11:26 | RAD ---
CT HEAD WO CONTRAST History: Worsening headache. Right-sided weakness. History of meningioma. Comparison: MRI brain October 19, 2019. Technique: Noncontrast CT imaging was performed of the head. Exposure: One or more of the following individualized dose reduction techniques were utilized for this examination: 1. Automated exposure control 2. Adjustment of the mA and/or kV according to patient size 3. Use of iterative reconstruction technique. Findings: Left frontal parietal extra-axial mass, difficult to characterize on noncontrast examination. Increased adjacent vasogenic edema within the left frontal lobe. Increased local mass effect. No hydrocephalus. No intracranial hemorrhage. Imaged orbits are unremarkable. Imaged paranasal sinuses and mastoid air cells are clear. Impression: 1. Left frontoparietal extra-axial mass with increased underlying vasogenic edema. Recommend MRI with and without contrast to further evaluate. Electronically signed by: Sunny Whaley DO (11/05/2019 11:23 AM) [id number]
--- NOTE | 2019-11-05 11:38 | PDOC ---
PROGRESS NOTES Chief Complaint Chief Complaint A/P: Abdominal pain - with swelling - large hematoma. Pain control, consult general surgery Acute blood loss anemia - likely 2/2 large right sided abdominal wall hematoma. Given the acute drop in Hb this bleed is acute. Transfused 2u 11/02 Elevated WBC - much higher now. This needs hematology. Will get smear with pathology. Bone marrow biopsy is recommended Acute encephalopathy - likely metabolic with meds - narcotics and benzos and brain mass, possibly toxic as well Brain Mass - meningioma with midline shifting, vasogenic edema. On steroids - Left parietal extra-axial solid enhancing mass has imaging characteristics suggestive of a meningioma. surgery planned this coming tuesday DM2 - basal bolus plus regimen of insulin Chronic Back Pain and Sciatica Rt Leg Hx PE - sees hematology, on xarelto transitioned to lovenox. 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 Hgb 6.9 yesterday - no result yet today heme onc on case WBc 37, PLAN: ff up rpt CBC today transfuse if hgb < 7 dw lab - did not draw yet, doing it now ff up CT head results - inc headache maintain bateman, inserted 11/02 Vitals Vitals Vital Signs Date Time Temp Pulse Resp B/P (MAP) Pulse Ox O2 Delivery O2 Flow Rate FiO2 11/05/19 11:18 88 126/75 11/05/19 10:30 19 99 Nasal Cannula 2.0 11/05/19 07:00 97.8 97.8 Physical Exam General: Alert, Oriented X3, Cooperative Heart: Regular rate, Normal S1, Normal S2 Lungs: Wheezing Abdomen: Soft, Other (right sided ecchymosis ) Extremities: No clubbing, No cyanosis, No edema, Normal pulses, No tenderness/swelling Skin: Other (Ecchymosis on right abdomen) Labs LABS Laboratory Tests Test 11/04/19 11:50 11/04/19 18:29 11/04/19 21:12 11/05/19 08:00 Glucose (Fingerstick) 148 mg/dL (70-99) 141 mg/dL (70-99) 158 mg/dL (70-99) 163 mg/dL (70-99) Review of Systems Review of Systems headache, weak, all else neg 14 pt Assessment and Plan Assessmemt and Plan Problems Medical Problems: (1) Abdominal hemorrhage Status: Acute (2) Generalized weakness Status: Acute (3) Lactic acidosis Status: Acute (4) Leukocytosis Status: Acute Comment Review of Relevant I have reviewed the following items mustapha (where applicable) has been applied. Labs Laboratory Tests Test 11/03/19 12:17 11/03/19 16:50 11/03/19 21:15 11/04/19 06:00 Glucose (Fingerstick) 178 mg/dL (70-99) 131 mg/dL (70-99) 172 mg/dL (70-99) White Blood Count 37.2 x10^3/uL (4.0-11.0) Red Blood Count 2.33 x10^6/uL (3.50-5.40) Hemoglobin 6.9 g/dL (12.0-15.5) Hematocrit 21.1 % (36.0-47.0) Mean Corpuscular Volume 91 fL (79-100) Mean Corpuscular Hemoglobin 30 pg (25-35) Mean Corpuscular Hemoglobin Concent 33 g/dL (31-37) Red Cell Distribution Width 16.5 % (11.5-14.5) Platelet Count 275 x10^3/uL (140-400) Neutrophils (%) (Auto) 86 % (31-73) Lymphocytes (%) (Auto) 10 % (24-48) Monocytes (%) (Auto) 3 % (0-9) Eosinophils (%) (Auto) 1 % (0-3) Basophils (%) (Auto) 0 % (0-3) Neutrophils # (Auto) 32.0 x10^3/uL (1.8-7.7) Lymphocytes # (Auto) 3.8 x10^3/uL (1.0-4.8) Monocytes # (Auto) 1.2 x10^3/uL (0.0-1.1) Eosinophils # (Auto) 0.2 x10^3/uL (0.0-0.7) Basophils # (Auto) 0.1 x10^3/uL (0.0-0.2) Sodium Level 138 mmol/L (136-145) Potassium Level 3.6 mmol/L (3.5-5.1) Chloride Level 103 mmol/L (98-107) Carbon Dioxide Level 29 mmol/L (21-32) Anion Gap 6 (6-14) Blood Urea Nitrogen 14 mg/dL (7-20) Creatinine 0.6 mg/dL (0.6-1.0) Estimated GFR (Cockcroft-Gault) 107.2 Glucose Level 154 mg/dL (70-99) Calcium Level 7.5 mg/dL (8.5-10.1) Test 11/04/19 11:50 11/04/19 18:29 11/04/19 21:12 11/05/19 08:00 Glucose (Fingerstick) 148 mg/dL (70-99) 141 mg/dL (70-99) 158 mg/dL (70-99) 163 mg/dL (70-99) Laboratory Tests Test 11/04/19 11:50 11/04/19 18:29 11/04/19 21:12 11/05/19 08:00 Glucose (Fingerstick) 148 mg/dL (70-99) 141 mg/dL (70-99) 158 mg/dL (70-99) 163 mg/dL (70-99) Microbiology 11/01/19 Blood Culture - Preliminary, Resulted NO GROWTH AFTER 3 DAYS Medications Current Medications Sodium Chloride 500 ml @ 500 mls/hr 1X ONCE IV Last administered on 11/01/19a t 13:00; Start 11/01/19 at 13:00; Stop 11/01/19 at 13:59; Status DC Ondansetron HCl (Zofran) 4 mg 1X ONCE IV Last administered on 11/01/19at 13:26; Start 11/01/19 at 13:00; Stop 11/01/19 at 13:13; Status DC Hydromorphone HCl (Dilaudid) 0.5 mg 1X STAT IVP Last administered on 11/01/19at 13:26; Start 11/01/19 at 12:59; Stop 11/01/19 at 13:13; Status DC Iohexol (Omnipaque 300 Mg/ml) 75 ml 1X ONCE IV Last administered on 11/01/19at 14:08; Start 11/01/19 at 13:45; Stop 11/01/19 at 13:46; Status DC Info (CONTRAST GIVEN -- Rx MONITORING) 1 each PRN DAILY PRN MC SEE COMMENTS; Start 11/01/19 at 14:00; Stop 11/03/19 at 13:59; Status DC Hydromorphone HCl (Dilaudid) 0.5 mg 1X STAT IVP Last administered on 11/01/19at 16:53; Start 11/01/19 at 16:21; Stop 11/01/19 at 16:23; Status DC Sodium Chloride 1,000 ml @ 1,000 mls/hr 1X ONCE IV Last administered on 11/01/19at 16:30; Start 11/01/19 at 16:30; Stop 11/01/19 at 17:29; Status DC Sodium Chloride 500 ml @ 500 mls/hr 1X ONCE IV Last administered on 11/01/19at 16:30; Start 11/01/19 at 16:30; Stop 11/01/19 at 17:29; Status DC Albuterol Sulfate (Ventolin Neb Soln) 2.5 mg PRN Q6HRS PRN INH SHORTNESS OF BREATH; Start 11/01/19 at 16:30 Alprazolam (Xanax) 0.25 mg PRN TID PRN PO anxiety; Start 11/01/19 at 16:30; Stop 11/01/19 at 17:11; Status DC Amlodipine Besylate (Norvasc) 5 mg DAILY PO Last administered on 11/05/19at 11:18; Start 11/02/19 at 09:00 Cyclosporine (Restasis) 1 drop BID OU Last administered on 11/05/19at 11:18; Start 11/01/19 at 21:00 Fluticasone Propionate (Flonase) 2 spray DAILY NS Last administered on 11/04/19at 07:42; Start 11/02/19 at 09:00 Lactobacillus Rhamnosus (Culturelle) 1 cap BID PO Last administered on 11/05/19at 11:19; Start 11/01/19 at 21:00 Lidocaine (Lidoderm) 1 patch DAILY TP ; Start 11/02/19 at 09:00; Stop 11/01/19 at 20:34; Status DC Metoprolol Succinate (Toprol Xl) 100 mg HS PO Last administered on 11/04/19at 21:56; Start 11/01/19 at 21:00 Nystatin (Nystop) 1 raza BID TP Last administered on 11/04/19at 07:41; Start 11/01/19 at 21:00 Pantoprazole Sodium (Protonix) 40 mg DAILYAC PO Last administered on 11/05/19 11:18; Start 11/02/19 at 07:30 Senna/Docusate Sodium (Senna Plus) 1 tab BID PO Last administered on 11/05/19 11:18; Start 11/01/19 at 21:00 Sucralfate (Carafate) 1 gm TIDAC PO Last administered on 11/05/19 11:18; Start 11/01/19 at 17:30 Tramadol HCl (Ultram) 50 mg PRN Q8HRS PRN PO PAIN; Start 11/01/19 at 16:30; Stop 11/01/19 at 19:43; Status DC Insulin Glargine (Lantus Syringe) 30 unit QHS SQ Last administered on 11/04/19at 21:00; Start 11/01/19 at 21:00 Ondansetron HCl (Zofran Odt) 8 mg PRN Q8HRS PRN PO NAUSEA/VOMITING Last administered on 11/02/19 07:48; Start 11/01/19 at 17:15 Polyethylene Glycol (miraLAX PACKET) 17 gm PRN DAILY PRN PO CONSTIPATION Last administered on 11/02/19 12:42; Start 11/01/19 at 17:11 Atorvastatin Calcium (Lipitor) 80 mg QHS PO Last administered on 11/04/19at 21:53; Start 11/01/19 at 21:00 Insulin Human Lispro (HumaLOG) 0-9 UNITS TIDAC SQ Last administered on 11/04/19 07:44; Start 11/01/19 at 16:30 Dextrose (Dextrose 50%-Water Syringe) 12.5 gm PRN Q15MIN PRN IV SEE COMMENTS; Start 11/01/19 at 16:30 Ondansetron HCl (Zofran) 4 mg PRN Q8HRS PRN IV NAUSEA/VOMITING; Start 11/01/19 at 16:30; Stop 11/02/19 at 16:29; Status DC Alprazolam (Xanax) 0.25 mg PRN TID PRN PO anxiety Last administered on 11/04/19 21:53; Start 11/01/19 at 17:11 Miscellaneous (Lidoderm Patch Removal) 1 ea QHS MC ; Start 11/01/19 at 21:00; Stop 11/01/19 at 20:34; Status DC Ceftriaxone Sodium (Rocephin) 1 gm QHS IVP Last administered on 11/04/19at 21:54; Start 11/01/19 at 18:45 Tramadol HCl (Ultram) 50 mg PRN Q8HRS PRN PO PAIN Last administered on 11/04/19 21:56; Start 11/01/19 at 19:45 Hydromorphone HCl (Dilaudid) 1 mg PRN Q4HRS PRN IV PAIN Last administered on 11/05/19 07:27; Start 11/01/19 at 20:15 Lidocaine (Lidoderm) 1 patch QHS TP Last administered on 11/04/19 21:55; Start 11/01/19 at 21:00 Miscellaneous (Lidoderm Patch Removal) 1 ea DAILY MC Last administered on 11/04/19at 07:42; Start 11/02/19 at 09:00 Albumin Human 500 ml @ 125 mls/hr 1X ONCE IV ; Start 11/02/19 at 02:00; Stop 11/02/19 at 05:59; Status Cancel Acetaminophen (Tylenol) 650 mg 1X PRN PRN PO PRE-TRANSFUSION; Start 11/02/19 at 06:45; Stop 11/03/19 at 14:16; Status DC Diphenhydramine HCl (Benadryl Oral Elixir) 12.5 mg 1X PRN PRN PO PRE-TRANSFUSI ON; Start 11/02/19 at 06:45; Stop 11/03/19 at 14:16; Status DC Diphenhydramine HCl (Benadryl) 25 mg PRN 1X PRN PO PRE-TRANSFUSION; Start 11/02/19 at 06:45; Stop 11/03/19 at 14:16; Status DC Lactulose (LACTULOSE 300ML for RECTAL) 200 gm Q6HRS ND Last administered on 11/02/19at 18:00; Start 11/02/19 at 18:00; Stop 11/04/19 at 14:44; Status DC Sodium Chloride 1,000 ml @ 100 mls/hr Q10H IV Last administered on 11/05/19at 11:22; Start 11/02/19 at 12:00 Lactulose (Lactulose) 20 gm PRN DAILY PRN PO CONSTIPATION; Start 11/04/19 at 14:45 Oxycodone HCl (Roxicodone) 5 mg PRN Q6HRS PRN PO MODERATE TO SEVERE PAIN Last administered on 11/05/19at 10:25; Start 11/04/19 at 14:45 Lidocaine HCl (Buffered Lidocaine 1%) 3 ml STK-MED ONCE .ROUTE ; Start 11/05/19 at 08:13; Stop 11/05/19 at 08:13; Status DC Lidocaine HCl (Buffered Lidocaine 1%) 3 ml STK-MED ONCE .ROUTE ; Start 11/05/19 at 08:14; Stop 11/05/19 at 08:14; Status DC Midazolam HCl (Versed) 2 mg STK-MED ONCE .ROUTE ; Start 11/05/19 at 08:40; Stop 11/05/19 at 08:40; Status DC Fentanyl Citrate (Fentanyl 2ml Vial) 100 mcg STK-MED ONCE .ROUTE ; Start 11/05/19 at 08:40; Stop 11/05/19 at 08:41; Status DC Lidocaine HCl (Buffered Lidocaine 1%) 3 ml 1X ONCE IJ Last administered on 11/05/19at 08:45; Start 11/05/19 at 08:45; Stop 11/05/19 at 08:50; Status DC Midazolam HCl (Versed) 2 mg 1X ONCE IV Last administered on 11/05/19at 08:45; Start 11/05/19 at 08:45; Stop 11/05/19 at 08:50; Status DC Fentanyl Citrate (Fentanyl 2ml Vial) 100 mcg 1X ONCE IV Last administered on 11/05/19at 08:45; Start 11/05/19 at 08:45; Stop 11/05/19 at 08:50; Status DC Active Scripts Active Enoxaparin Sodium 120 Mg/0.8 Ml Disp.syrin 120 Mg SQ Q12HR 28 Days Dexamethasone 4 Mg Tablet 4 Mg PO BID 14 Days Culturelle (Lactobacillus Rhamnosus Gg) 1 Each Cap.sprink 1 Cap PO BID 30 Days Amlodipine Besylate 5 Mg Tablet 5 Mg PO DAILY 30 Days Cefdinir 300 Mg Capsule 300 Mg PO BID 10 Days Reported Cymbalta (Duloxetine Hcl) 60 Mg Capsule.dr 1 Cap PO BID Lyrica (Pregabalin) 150 Mg Capsule 1 Cap PO BID Novolog (Insulin Aspart) 100 Unit/1 Ml Cartridge 10-45 Unit SQ QIDACHS Levemir (Insulin Detemir) 100 Unit/1 Ml Vial 30 Unit SQ HS Linzess (Linaclotide) 145 Mcg Capsule 145 Mcg PO PRN PRN Crestor (Rosuvastatin Calcium) 40 Mg Tablet 0.5 Tab PO DAILY Polyethylene Glycol 3350 2,500 Gm Powder 17 Gm PO PRN PRN Xanax (Alprazolam) 1 Mg Tablet 1 Tab PO TID Restasis (Cyclosporine) 1 Each Droperette 1 Drop EACHEYE BID Proair Hfa Inhaler (Albuterol Sulfate) 8.5 Gm Hfa.aer.ad 1 Puff INH PRN Q6HRS PRN Tramadol Hcl 50 Mg Tablet 1 Tab PO PRN Q8HRS PRN Ondansetron Hcl 4 Mg Tablet 2 Tab PO PRN Q8HRS PRN Nystatin 15 Gm Powder 1 Raza TP BID Lidocaine PATCH (Lidocaine) 1 Each Adh..patch 1 Each TP DAILY Fluticasone Propionate Nasal Wideman (Fluticasone Propionate) 16 Gm Wideman.susp 2 Wideman NS DAILY Percocet 5-325 Mg Tablet (Oxycodone/Acetaminophen) 1 Each Tablet 1-2 Tab PO Q4-6HRS PRN LAST DOSE AT NEXT DOSE Senna-Docusate Sodium Tablet (Sennosides/Docusate Sodium) 1 Each Tablet 1 Each PO BID LAST DOSE THIS AM NEXT DOSE TONIGHT Robaxin-750 (Methocarbamol) 750 Mg Tablet 1 Tab PO TID LAST DOSE AT 1400 (2PM) MAY HAVE THE NEXT DOSE AT 10 PM Protonix (Pantoprazole Sodium) 40 Mg Tablet.dr 40 Mg PO DAILY LST DOSE THIS AM NEXT DOSE TOMORROW AM Carafate (Sucralfate) 1 Gm Tablet 1 Tab PO TID Meds not given this hospital admission. May resume home medications as approved by Physician. MAY TAKE WHEN AVAILABLE Xarelto (Rivaroxaban) 15 Mg Tablet 15 Mg PO DAILY Meds not given this hospital admission. May resume home medications as approved by Physician. MAY RESUME WHEN AVAILABLE Metoprolol Succinate ( Xl ) (Metoprolol Succinate) 100 Mg Tab.er.24h 100 Mg PO HS LAST DOSE THIS AM NEXT DOSE TOMORROW AM Vitals/I & O Vital Sign - Last 24 Hours 11/04/19 11/04/19 11/04/19 11/04/19 12:00 12:00 12:54 13:00 Temp 98.3 98.3 Pulse 104 108 Resp 19 B/P (MAP) 94/62 (73) 103/58 (73) Pulse Ox 98 O2 Delivery Room Air Room Air Room Air Room Air O2 Flow Rate 2.0 11/04/19 11/04/19 11/04/19 11/04/19 13:48 14:00 14:11 14:11 Pulse 112 Resp 19 B/P (MAP) 96/62 (73) Pulse Ox 98 O2 Delivery Room Air Room Air Room Air Room Air O2 Flow Rate 2.0 11/04/19 11/04/19 11/04/19 11/04/19 15:00 17:47 18:00 20:00 Temp 98.3 99.1 98.3 99.1 Pulse 110 120 Resp 20 B/P (MAP) 118/68 (85) 108/66 (80) Pulse Ox 96 O2 Delivery Room Air Room Air Room Air Room Air 11/04/19 11/04/19 11/05/19 11/05/19 21:56 23:00 03:15 07:00 Temp 100.9 97.4 97.8 100.9 97.4 97.8 Pulse 115 116 61 89 Resp 20 18 19 B/P (MAP) 120/79 114/74 (87) 169/78 (108) 126/77 (93) Pulse Ox 98 93 93 O2 Delivery Room Air Room Air Room Air 11/05/19 11/05/19 11/05/19 11/05/19 08:45 08:50 08:55 09:00 Pulse 92 92 101 Resp 16 20 17 10 Pulse Ox 100 100 100 100 O2 Delivery Nasal Cannula Nasal Cannula Nasal Cannula Nasal Cannula O2 Flow Rate 2.0 2.0 2.0 2.0 11/05/19 11/05/19 11/05/19 11/05/19 09:05 09:05 09:15 09:15 Pulse 95 95 91 91 Resp B/P (MAP) 148/95 (112) 148/95 (112) Pulse Ox 100 100 91 91 O2 Delivery Nasal Cannula Nasal Cannula Nasal Cannula Nasal Cannula O2 Flow Rate 2.0 2.0 2.0 2.0 11/05/19 11/05/19 11/05/19 11/05/19 09:30 09:45 10:00 10:30 Pulse 88 89 82 85 Resp B/P (MAP) 143/83 (103) 141/82 (101) 125/77 (93) 124/79 (94) Pulse Ox 99 98 98 99 O2 Delivery Nasal Cannula Nasal Cannula Nasal Cannula Nasal Cannula O2 Flow Rate 2.0 2.0 2.0 2.0 11/05/19 11:18 Pulse 88 B/P (MAP) 126/75 Intake and Output 11/04/19 11/04/19 11/05/19 15:00 23:00 07:00 Intake Total 290 ml 1250 ml Output Total 550 ml 3000 ml 2700 ml Balance -260 ml -3000 ml -1450 ml Nutrition Consultation Dietary Evaluation: Recommendations by RD: Increase Calorie Intake, Protein supplementation Comments: REC ADA/cardiac diet, will adjust diet order as needed REC glucerna w/dinner trays and prn Ok to liberalize diet as needed to promote PO intake Expected Outcomes/Goals: PO intake to meet >75% est needs Interpretation of weight loss: >5% in 1 month Malnutrition Findings: Food and Nutrition Intake (Sev: <50% est energy req 5days Weight Status: Morbidly Obese RAFAEL CAT MD Nov 05, 2019 11:38
--- NOTE | 2019-11-05 11:41 | PDOC ---
MONI CHOI BUILDING MECHANIC 11/05/19 1141: SURGICAL PROGRESS NOTE Subjective down for CT Vital Signs Vital Signs Date Time Temp Pulse Resp B/P (MAP) Pulse Ox O2 Delivery O2 Flow Rate FiO2 11/05/19 11:18 88 126/75 11/05/19 10:30 19 99 Nasal Cannula 2.0 11/05/19 07:00 97.8 97.8 I&O Intake and Output 11/05/19 06:59 Intake Total 1540 ml Output Total 6325 ml Balance -4785 ml Intake Oral 490 ml IV Total 1000 ml Blood Product IV Normal Saline Flush 50 ml Output Urine Total 6325 ml Labs Laboratory Tests Test 11/03/19 12:17 11/03/19 16:50 11/03/19 21:15 11/04/19 06:00 Glucose (Fingerstick) 178 mg/dL (70-99) 131 mg/dL (70-99) 172 mg/dL (70-99) White Blood Count 37.2 x10^3/uL (4.0-11.0) Red Blood Count 2.33 x10^6/uL (3.50-5.40) Hemoglobin 6.9 g/dL (12.0-15.5) Hematocrit 21.1 % (36.0-47.0) Mean Corpuscular Volume 91 fL (79-100) Mean Corpuscular Hemoglobin 30 pg (25-35) Mean Corpuscular Hemoglobin Concent 33 g/dL (31-37) Red Cell Distribution Width 16.5 % (11.5-14.5) Platelet Count 275 x10^3/uL (140-400) Neutrophils (%) (Auto) 86 % (31-73) Lymphocytes (%) (Auto) 10 % (24-48) Monocytes (%) (Auto) 3 % (0-9) Eosinophils (%) (Auto) 1 % (0-3) Basophils (%) (Auto) 0 % (0-3) Neutrophils # (Auto) 32.0 x10^3/uL (1.8-7.7) Lymphocytes # (Auto) 3.8 x10^3/uL (1.0-4.8) Monocytes # (Auto) 1.2 x10^3/uL (0.0-1.1) Eosinophils # (Auto) 0.2 x10^3/uL (0.0-0.7) Basophils # (Auto) 0.1 x10^3/uL (0.0-0.2) Sodium Level 138 mmol/L (136-145) Potassium Level 3.6 mmol/L (3.5-5.1) Chloride Level 103 mmol/L (98-107) Carbon Dioxide Level 29 mmol/L (21-32) Anion Gap 6 (6-14) Blood Urea Nitrogen 14 mg/dL (7-20) Creatinine 0.6 mg/dL (0.6-1.0) Estimated GFR (Cockcroft-Gault) 107.2 Glucose Level 154 mg/dL (70-99) Calcium Level 7.5 mg/dL (8.5-10.1) Test 11/04/19 11:50 11/04/19 18:29 11/04/19 21:12 11/05/19 08:00 Glucose (Fingerstick) 148 mg/dL (70-99) 141 mg/dL (70-99) 158 mg/dL (70-99) 163 mg/dL (70-99) Laboratory Tests Test 11/04/19 11:50 11/04/19 18:29 11/04/19 21:12 11/05/19 08:00 Glucose (Fingerstick) 148 mg/dL (70-99) 141 mg/dL (70-99) 158 mg/dL (70-99) 163 mg/dL (70-99) Problem List Problems Medical Problems: (1) Abdominal hemorrhage Status: Acute (2) Generalized weakness Status: Acute (3) Lactic acidosis Status: Acute (4) Leukocytosis Status: Acute MAXI DUKE MD 11/05/19 1614: SURGICAL PROGRESS NOTE Assessment/Plan Pt seen and examined. Agree with Ms. Choi's note Pt feels better working with PT cont supportive care. MONI CHOI APRN Nov 05, 2019 11:41 MAXI DUKE MD Nov 05, 2019 16:14
[2019-11-05 12:15] LABS: BASO # 0.1 x10^3/uL (0.0-0.2); BASO % 0 % (0-3); EOS # 0.4 x10^3/uL (0.0-0.7); EOS % 1 % (0-3); HEMOGLOBIN 8.5 g/dL (12.0-15.5); LYMPH # 2.6 x10^3/uL (1.0-4.8); LYMPH % 9 % (24-48); MEAN CORPUSCULAR HEMOGLOBIN 30 pg (25-35); MEAN CORPUSCULAR HGB CONC 33 g/dL (31-37); MEAN CORPUSCULAR VOLUME 90 fL (79-100); MONO % 3 % (0-9); NEUT # 25.9 x10^3/uL (1.8-7.7); NEUT % 86 % (31-73); PLATELET COUNT 274 x10^3/uL (140-400); RED CELL DISTRIBUTION WIDTH 15.9 % (11.5-14.5)
[2019-11-05] MEDS: NYSTATIN TOPICAL POWDER 15GM BOTTLE. TP SCH ×2 (12:48→21:00)
[2019-11-05] MEDS: FLUTICASONE 50MCG/NASAL SPRAY 16GM BOTTLE. NS SCH (12:49)
--- NOTE | 2019-11-05 12:49 | NUR ---
SW following for discharge planning. Chart reviewed, discussed with RN, pt is a transfer from ICU. Pt having a bone marrow biopsy today. SW will continue to follow for discharge planning needs.
[2019-11-05] MEDS: LIDOCAINE (700MG/PATCH) PATCH. TP SCH (21:00)
[2019-11-05] MEDS: ALPRAZolam 0.25 MG TABLET PO PRN (21:58)
[2019-11-05] MEDS: METOPROLOL SUCC 24HR ER 100 MG TAB.ER.24H. PO SCH (21:58)
[2019-11-05] MEDS: cefTRIAXone IV Push 1 GM VIAL. IVP SCH (21:59)
[2019-11-05] MEDS: ATORVASTATIN CALCIUM 40 MG TABLET. PO SCH (21:59)
[2019-11-05] MEDS: traMADol 50 MG TABLET PO PRN (22:04)
[2019-11-05] MEDS: INSULIN GLARGINE SYRINGE. SQ SCH (22:14)
[2019-11-06] MEDS: IV NORMAL SALINE 1000ML BAG 1,000 ML IV SCH ×2 (03:37→17:51)
[2019-11-06] MEDS: HYDROmorphone 2 MG/ML VIAL IV PRN ×4 (03:37→19:29)
--- NOTE | 2019-11-06 04:46 | NUR ---
Patient had requested to hold the nystop and lidocaine patch at 2100, kept on mrad until this time, as patient not received.
[2019-11-06 06:06] LABS: BASO # 0.2 x10^3/uL (0.0-0.2); BASO % 1 % (0-3); EOS # 0.5 x10^3/uL (0.0-0.7); EOS % 2 % (0-3); HEMATOCRIT 25.3 % (36.0-47.0); HEMOGLOBIN 8.2 g/dL (12.0-15.5); LYMPH # 2.7 x10^3/uL (1.0-4.8); LYMPH % 9 % (24-48); MEAN CORPUSCULAR HEMOGLOBIN 29 pg (25-35); MEAN CORPUSCULAR HGB CONC 33 g/dL (31-37); MEAN CORPUSCULAR VOLUME 91 fL (79-100); MONO % 4 % (0-9); NEUT # 24.5 x10^3/uL (1.8-7.7); NEUT % 85 % (31-73); PLATELET COUNT 305 x10^3/uL (140-400); RED CELL DISTRIBUTION WIDTH 15.9 % (11.5-14.5); WHITE BLOOD COUNT 28.9 x10^3/uL (4.0-11.0)
[2019-11-06 07:00] VITALS: BP 116/61
[2019-11-06] MEDS: INSULIN LISPRO 300 UNITS/3 ML VIAL. SQ SCH ×3 (07:30→17:58)
[2019-11-06] MEDS: PATCH REMOVAL. MC SCH (09:00)
--- NOTE | 2019-11-06 09:03 | PDOC ---
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 BMBx pending, edema increasing on CT Leukocytosis: Bone marrow biopsy pending, low grade temp, on ceftriaxone Hematoma: Improving as anticoagulation has stopped (held currently) Anemia: transfuse prn Hb <7, suspect AOCI in addition to superficial abdom bleed w/ hematoma Brain mass: Hematologic? Await bone marrow biopsy, back on dex for edema increasing, defer further MRI to Neurosurg (apprec their assistance), w/ R leg weakness h/o clotting and RLE swelling: will check u/s RLE Thank you kindly and please do not hesitate to call with questions. OBJECTIVE Vital Signs Vital Signs Date Time Temp Pulse Resp B/P (MAP) Pulse Ox O2 Delivery O2 Flow Rate FiO2 11/06/19 07:00 97.8 81 19 116/61 (79) 97 Nasal Cannula 2.0 97.8 11/06/19 04:07 20 Nasal Cannula 11/06/19 03:37 18 Room Air 11/05/19 23:04 20 Room Air 11/05/19 23:04 20 Room Air 11/05/19 23:00 100.3 107 18 132/88 (103) 94 100.3 11/05/19 22:43 20 Nasal Cannula 11/05/19 22:04 20 Room Air 11/05/19 21:58 105 131/80 11/05/19 20:20 Room Air 11/05/19 19:08 19 Room Air 11/05/19 19:00 98.8 105 20 131/80 (97) 96 98.8 11/05/19 18:39 97 Room Air 2.0 11/05/19 18:38 Room Air 11/05/19 14:56 97.9 90 19 120/64 (82) 97 Nasal Cannula 2.0 97.9 11/05/19 13:31 94 19 115/59 (77) 98 Room Air 11/05/19 12:30 90 17 96/66 (76) 97 Room Air 11/05/19 11:30 85 19 139/79 (99) 97 Room Air 11/05/19 11:18 88 126/75 11/05/19 11:00 83 19 126/75 (92) 98 Room Air 11/05/19 10:30 85 19 124/79 (94) 99 Nasal Cannula 2.0 11/05/19 10:00 82 19 125/77 (93) 98 Nasal Cannula 2.0 11/05/19 09:45 89 19 141/82 (101) 98 Nasal Cannula 2.0 11/05/19 09:30 88 19 143/83 (103) 99 Nasal Cannula 2.0 11/05/19 09:15 91 19 148/95 (112) 91 Nasal Cannula 2.0 11/05/19 09:15 91 19 148/95 (112) 91 Nasal Cannula 2.0 11/05/19 09:05 95 16 100 Nasal Cannula 2.0 11/05/19 09:05 95 16 100 Nasal Cannula 2.0 11/05/19 09:00 101 10 100 Nasal Cannula 2.0 I & O Intake and Output 11/06/19 07:00 Intake Total 1600 ml Output Total 5100 ml Balance -3500 ml Intake Oral 600 ml IV Total 1000 ml Output Urine Total 5100 ml COMMENT Lab Laboratory Tests Test 11/05/19 11:36 11/05/19 12:05 11/05/19 16:40 11/05/19 21:17 Glucose (Fingerstick) 172 mg/dL (70-99) 137 mg/dL (70-99) 179 mg/dL (70-99) White Blood Count 30.0 x10^3/uL (4.0-11.0) Red Blood Count 2.90 x10^6/uL (3.50-5.40) Hemoglobin 8.5 g/dL (12.0-15.5) Hematocrit 26.0 % (36.0-47.0) Mean Corpuscular Volume 90 fL (79-100) Mean Corpuscular Hemoglobin 30 pg (25-35) Mean Corpuscular Hemoglobin Concent 33 g/dL (31-37) Red Cell Distribution Width 15.9 % (11.5-14.5) Platelet Count 274 x10^3/uL (140-400) Neutrophils (%) (Auto) 86 % (31-73) Lymphocytes (%) (Auto) 9 % (24-48) Monocytes (%) (Auto) 3 % (0-9) Eosinophils (%) (Auto) 1 % (0-3) Basophils (%) (Auto) 0 % (0-3) Neutrophils # (Auto) 25.9 x10^3/uL (1.8-7.7) Lymphocytes # (Auto) 2.6 x10^3/uL (1.0-4.8) Monocytes # (Auto) 1.0 x10^3/uL (0.0-1.1) Eosinophils # (Auto) 0.4 x10^3/uL (0.0-0.7) Basophils # (Auto) 0.1 x10^3/uL (0.0-0.2) Test 11/06/19 05:35 11/06/19 07:25 White Blood Count 28.9 x10^3/uL (4.0-11.0) Red Blood Count 2.80 x10^6/uL (3.50-5.40) Hemoglobin 8.2 g/dL (12.0-15.5) Hematocrit 25.3 % (36.0-47.0) Mean Corpuscular Volume 91 fL (79-100) Mean Corpuscular Hemoglobin 29 pg (25-35) Mean Corpuscular Hemoglobin Concent 33 g/dL (31-37) Red Cell Distribution Width 15.9 % (11.5-14.5) Platelet Count 305 x10^3/uL (140-400) Neutrophils (%) (Auto) 85 % (31-73) Lymphocytes (%) (Auto) 9 % (24-48) Monocytes (%) (Auto) 4 % (0-9) Eosinophils (%) (Auto) 2 % (0-3) Basophils (%) (Auto) 1 % (0-3) Neutrophils # (Auto) 24.5 x10^3/uL (1.8-7.7) Lymphocytes # (Auto) 2.7 x10^3/uL (1.0-4.8) Monocytes # (Auto) 1.0 x10^3/uL (0.0-1.1) Eosinophils # (Auto) 0.5 x10^3/uL (0.0-0.7) Basophils # (Auto) 0.2 x10^3/uL (0.0-0.2) Glucose (Fingerstick) 148 mg/dL (70-99) Nutrition Consultation Dietary Evaluation: Recommendations by RD: Increase Calorie Intake, Protein supplementation Comments: REC ADA/cardiac diet, will adjust diet order as needed REC glucerna w/dinner trays and prn Ok to liberalize diet as needed to promote PO intake Expected Outcomes/Goals: PO intake to meet >75% est needs Interpretation of weight loss: >5% in 1 month Malnutrition Findings: Food and Nutrition Intake (Sev: <50% est energy req 5days Weight Status: Morbidly Obese ENEDELIA HUYNH MD Nov 06, 2019 09:03
[2019-11-06] MEDS: cycloSPORINE 0.05% OPHTH DROPERETTE. OU SCH ×2 (09:29→20:50)
[2019-11-06] MEDS: PANTOPRAZOLE 40 MG TABLET.DR. PO SCH (09:29)
[2019-11-06] MEDS: SENNOSIDES/DOCUSATE 8.6/50MG TABLET. PO SCH ×2 (09:30→20:50)
[2019-11-06] MEDS: SUCRALFATE 1 GM TABLET. PO SCH ×3 (09:30→17:52)
[2019-11-06] MEDS: LACTOBACILLUS RHAMNOSUS GG 1 CAPSULE. PO SCH ×2 (09:30→20:50)
[2019-11-06] MEDS: amLODIPine BESYLATE 5 MG TABLET PO SCH (09:30)
[2019-11-06] MEDS: NYSTATIN TOPICAL POWDER 15GM BOTTLE. TP SCH ×2 (09:36→20:53)
[2019-11-06] MEDS: FLUTICASONE 50MCG/NASAL SPRAY 16GM BOTTLE. NS SCH (09:36)
--- NOTE | 2019-11-06 10:08 | RAD ---
EXAM: Right lower extremity venous Doppler. HISTORY: Right lower extremity pain/swelling. Prior deep venous thrombosis. COMPARISON: None. FINDINGS: Grayscale and Doppler analysis of the right lower extremity deep venous system was performed with graded compression and augmentation. The common femoral, greater saphenous, superficial femoral, popliteal and calf veins were assessed. There is no evidence of deep venous thrombosis. IMPRESSION: 1. No evidence of deep venous thrombosis. Electronically signed by: Tay Head MD (11/06/2019 10:05 AM) [facility]
[2019-11-06] MEDS: DEXAMETHASONE SOD PHOS 4 MG/ML VIAL IVP SCH ×3 (10:13→17:52)
[2019-11-06] MEDS: ALPRAZolam 0.25 MG TABLET PO PRN ×2 (10:20→21:22)
--- NOTE | 2019-11-06 10:44 | PDOC ---
MONI CHOI ASSISTANT BRANCH MANAGER 11/06/19 1044: SURGICAL PROGRESS NOTE Subjective less abdominal pain Vital Signs Vital Signs Date Time Temp Pulse Resp B/P (MAP) Pulse Ox O2 Delivery O2 Flow Rate FiO2 11/06/19 10:13 Room Air 11/06/19 09:31 3.0 11/06/19 09:30 81 116/61 11/06/19 07:00 97.8 19 97 97.8 I&O Intake and Output 11/06/19 07:00 Intake Total 1600 ml Output Total 5100 ml Balance -3500 ml Intake Oral 600 ml IV Total 1000 ml Output Urine Total 5100 ml General: Alert, Cooperative Abdomen: Soft, Other (eechymosis improving) Labs Laboratory Tests Test 11/04/19 11:50 11/04/19 18:29 11/04/19 21:12 11/05/19 08:00 Glucose (Fingerstick) 148 mg/dL (70-99) 141 mg/dL (70-99) 158 mg/dL (70-99) 163 mg/dL (70-99) Test 11/05/19 11:36 11/05/19 12:05 11/05/19 16:40 11/05/19 21:17 Glucose (Fingerstick) 172 mg/dL (70-99) 137 mg/dL (70-99) 179 mg/dL (70-99) White Blood Count 30.0 x10^3/uL (4.0-11.0) Red Blood Count 2.90 x10^6/uL (3.50-5.40) Hemoglobin 8.5 g/dL (12.0-15.5) Hematocrit 26.0 % (36.0-47.0) Mean Corpuscular Volume 90 fL (79-100) Mean Corpuscular Hemoglobin 30 pg (25-35) Mean Corpuscular Hemoglobin Concent 33 g/dL (31-37) Red Cell Distribution Width 15.9 % (11.5-14.5) Platelet Count 274 x10^3/uL (140-400) Neutrophils (%) (Auto) 86 % (31-73) Lymphocytes (%) (Auto) 9 % (24-48) Monocytes (%) (Auto) 3 % (0-9) Eosinophils (%) (Auto) 1 % (0-3) Basophils (%) (Auto) 0 % (0-3) Neutrophils # (Auto) 25.9 x10^3/uL (1.8-7.7) Lymphocytes # (Auto) 2.6 x10^3/uL (1.0-4.8) Monocytes # (Auto) 1.0 x10^3/uL (0.0-1.1) Eosinophils # (Auto) 0.4 x10^3/uL (0.0-0.7) Basophils # (Auto) 0.1 x10^3/uL (0.0-0.2) Test 11/06/19 05:35 11/06/19 07:25 White Blood Count 28.9 x10^3/uL (4.0-11.0) Red Blood Count 2.80 x10^6/uL (3.50-5.40) Hemoglobin 8.2 g/dL (12.0-15.5) Hematocrit 25.3 % (36.0-47.0) Mean Corpuscular Volume 91 fL (79-100) Mean Corpuscular Hemoglobin 29 pg (25-35) Mean Corpuscular Hemoglobin Concent 33 g/dL (31-37) Red Cell Distribution Width 15.9 % (11.5-14.5) Platelet Count 305 x10^3/uL (140-400) Neutrophils (%) (Auto) 85 % (31-73) Lymphocytes (%) (Auto) 9 % (24-48) Monocytes (%) (Auto) 4 % (0-9) Eosinophils (%) (Auto) 2 % (0-3) Basophils (%) (Auto) 1 % (0-3) Neutrophils # (Auto) 24.5 x10^3/uL (1.8-7.7) Lymphocytes # (Auto) 2.7 x10^3/uL (1.0-4.8) Monocytes # (Auto) 1.0 x10^3/uL (0.0-1.1) Eosinophils # (Auto) 0.5 x10^3/uL (0.0-0.7) Basophils # (Auto) 0.2 x10^3/uL (0.0-0.2) Glucose (Fingerstick) 148 mg/dL (70-99) Laboratory Tests Test 11/05/19 11:36 11/05/19 12:05 11/05/19 16:40 11/05/19 21:17 Glucose (Fingerstick) 172 mg/dL (70-99) 137 mg/dL (70-99) 179 mg/dL (70-99) White Blood Count 30.0 x10^3/uL (4.0-11.0) Red Blood Count 2.90 x10^6/uL (3.50-5.40) Hemoglobin 8.5 g/dL (12.0-15.5) Hematocrit 26.0 % (36.0-47.0) Mean Corpuscular Volume 90 fL (79-100) Mean Corpuscular Hemoglobin 30 pg (25-35) Mean Corpuscular Hemoglobin Concent 33 g/dL (31-37) Red Cell Distribution Width 15.9 % (11.5-14.5) Platelet Count 274 x10^3/uL (140-400) Neutrophils (%) (Auto) 86 % (31-73) Lymphocytes (%) (Auto) 9 % (24-48) Monocytes (%) (Auto) 3 % (0-9) Eosinophils (%) (Auto) 1 % (0-3) Basophils (%) (Auto) 0 % (0-3) Neutrophils # (Auto) 25.9 x10^3/uL (1.8-7.7) Lymphocytes # (Auto) 2.6 x10^3/uL (1.0-4.8) Monocytes # (Auto) 1.0 x10^3/uL (0.0-1.1) Eosinophils # (Auto) 0.4 x10^3/uL (0.0-0.7) Basophils # (Auto) 0.1 x10^3/uL (0.0-0.2) Test 11/06/19 05:35 11/06/19 07:25 White Blood Count 28.9 x10^3/uL (4.0-11.0) Red Blood Count 2.80 x10^6/uL (3.50-5.40) Hemoglobin 8.2 g/dL (12.0-15.5) Hematocrit 25.3 % (36.0-47.0) Mean Corpuscular Volume 91 fL (79-100) Mean Corpuscular Hemoglobin 29 pg (25-35) Mean Corpuscular Hemoglobin Concent 33 g/dL (31-37) Red Cell Distribution Width 15.9 % (11.5-14.5) Platelet Count 305 x10^3/uL (140-400) Neutrophils (%) (Auto) 85 % (31-73) Lymphocytes (%) (Auto) 9 % (24-48) Monocytes (%) (Auto) 4 % (0-9) Eosinophils (%) (Auto) 2 % (0-3) Basophils (%) (Auto) 1 % (0-3) Neutrophils # (Auto) 24.5 x10^3/uL (1.8-7.7) Lymphocytes # (Auto) 2.7 x10^3/uL (1.0-4.8) Monocytes # (Auto) 1.0 x10^3/uL (0.0-1.1) Eosinophils # (Auto) 0.5 x10^3/uL (0.0-0.7) Basophils # (Auto) 0.2 x10^3/uL (0.0-0.2) Glucose (Fingerstick) 148 mg/dL (70-99) Problem List Problems Medical Problems: (1) Abdominal hemorrhage Status: Acute (2) Generalized weakness Status: Acute (3) Lactic acidosis Status: Acute (4) Leukocytosis Status: Acute Assessment/Plan hematoma-stable, no surgical needs MAXI DUKE MD 11/06/19 1419: SURGICAL PROGRESS NOTE Assessment/Plan Pt seen and examined. Agree with Ms. Choi's note Pt feels better abd soft, obese cont supportive care No surgical plans, will sign off, but please call for questions. MONI CHOI APRN Nov 06, 2019 10:44 MAXI DUKE MD Nov 06, 2019 14:19
[2019-11-06 10:52] VITALS: BP 104/52
[2019-11-06] MEDS: oxyCODONE IR 5 MG TABLET PO PRN ×2 (11:41→17:52)
--- NOTE | 2019-11-06 11:45 | PDOC ---
PROGRESS NOTES Chief Complaint Chief Complaint FRonto parietal axial mass with increasing vasogenic edema - interval CT 11/05 Difftls include HIgh grade lymphoma, leukemia new dx S.p BOne marrow biopsy 11/05 Abdominal pain - with swelling - large hematoma. Acute blood loss anemia - s/p Transfused 2u 11/02 Elevated WBC - ALL vs Lymphoma Acute encephalopathy -POA, resolved HEadaches DM2 - basal bolus plus regimen of insulin Chronic Back Pain and Sciatica Rt Leg Hx PE - sees hematology, on xarelto POA History of Present Illness History of Present Illness large belly bruise stable HGb 8 after BT HEadaches stable iNterval CT worse brain edema has fransico has peripheral line eating ok, sleeping ok PLAN: Consult neuro Start decadron IV CLose neuro checks Ff up bone marrow biopsy - not yet avail today (could be ALL vs lymphoma) Updated pt - aware\\- left copy of CT head at bedside EARLIER ENTRY was on blood thinner LAST GREASER WBC 20s - 30s maintain bateman Vitals Vitals Vital Signs Date Time Temp Pulse Resp B/P (MAP) Pulse Ox O2 Delivery O2 Flow Rate FiO2 11/06/19 10:52 97.7 91 19 104/52 (69) 97 Room Air 97.7 11/06/19 09:31 3.0 Physical Exam General: Alert, Cooperative Heart: Regular rate, Normal S1, Normal S2 Lungs: Wheezing Abdomen: Soft, Other (eechymosis improving) Extremities: No clubbing, No cyanosis, No edema, Normal pulses, No tenderness/swelling Skin: Other (Ecchymosis on right abdomen) Labs LABS Laboratory Tests Test 11/05/19 12:05 11/05/19 16:40 11/05/19 21:17 11/06/19 05:35 White Blood Count 30.0 x10^3/uL (4.0-11.0) 28.9 x10^3/uL (4.0-11.0) Red Blood Count 2.90 x10^6/uL (3.50-5.40) 2.80 x10^6/uL (3.50-5.40) Hemoglobin 8.5 g/dL (12.0-15.5) 8.2 g/dL (12.0-15.5) Hematocrit 26.0 % (36.0-47.0) 25.3 % (36.0-47.0) Mean Corpuscular Volume 90 fL (79-100) 91 fL (79-100) Mean Corpuscular Hemoglobin 30 pg (25-35) 29 pg (25-35) Mean Corpuscular Hemoglobin Concent 33 g/dL (31-37) 33 g/dL (31-37) Red Cell Distribution Width 15.9 % (11.5-14.5) 15.9 % (11.5-14.5) Platelet Count 274 x10^3/uL (140-400) 305 x10^3/uL (140-400) Neutrophils (%) (Auto) 86 % (31-73) 85 % (31-73) Lymphocytes (%) (Auto) 9 % (24-48) 9 % (24-48) Monocytes (%) (Auto) 3 % (0-9) 4 % (0-9) Eosinophils (%) (Auto) 1 % (0-3) 2 % (0-3) Basophils (%) (Auto) 0 % (0-3) 1 % (0-3) Neutrophils # (Auto) 25.9 x10^3/uL (1.8-7.7) 24.5 x10^3/uL (1.8-7.7) Lymphocytes # (Auto) 2.6 x10^3/uL (1.0-4.8) 2.7 x10^3/uL (1.0-4.8) Monocytes # (Auto) 1.0 x10^3/uL (0.0-1.1) 1.0 x10^3/uL (0.0-1.1) Eosinophils # (Auto) 0.4 x10^3/uL (0.0-0.7) 0.5 x10^3/uL (0.0-0.7) Basophils # (Auto) 0.1 x10^3/uL (0.0-0.2) 0.2 x10^3/uL (0.0-0.2) Glucose (Fingerstick) 137 mg/dL (70-99) 179 mg/dL (70-99) Test 11/06/19 07:25 Glucose (Fingerstick) 148 mg/dL (70-99) Review of Systems Review of Systems headache, weak, all else neg Assessment and Plan Assessmemt and Plan Problems Medical Problems: (1) Abdominal hemorrhage Status: Acute (2) Generalized weakness Status: Acute (3) Lactic acidosis Status: Acute (4) Leukocytosis Status: Acute Comment Review of Relevant I have reviewed the following items mustapha (where applicable) has been applied. Labs Laboratory Tests Test 11/04/19 11:50 11/04/19 18:29 11/04/19 21:12 11/05/19 08:00 Glucose (Fingerstick) 148 mg/dL (70-99) 141 mg/dL (70-99) 158 mg/dL (70-99) 163 mg/dL (70-99) Test 11/05/19 11:36 11/05/19 12:05 11/05/19 16:40 11/05/19 21:17 Glucose (Fingerstick) 172 mg/dL (70-99) 137 mg/dL (70-99) 179 mg/dL (70-99) White Blood Count 30.0 x10^3/uL (4.0-11.0) Red Blood Count 2.90 x10^6/uL (3.50-5.40) Hemoglobin 8.5 g/dL (12.0-15.5) Hematocrit 26.0 % (36.0-47.0) Mean Corpuscular Volume 90 fL (79-100) Mean Corpuscular Hemoglobin 30 pg (25-35) Mean Corpuscular Hemoglobin Concent 33 g/dL (31-37) Red Cell Distribution Width 15.9 % (11.5-14.5) Platelet Count 274 x10^3/uL (140-400) Neutrophils (%) (Auto) 86 % (31-73) Lymphocytes (%) (Auto) 9 % (24-48) Monocytes (%) (Auto) 3 % (0-9) Eosinophils (%) (Auto) 1 % (0-3) Basophils (%) (Auto) 0 % (0-3) Neutrophils # (Auto) 25.9 x10^3/uL (1.8-7.7) Lymphocytes # (Auto) 2.6 x10^3/uL (1.0-4.8) Monocytes # (Auto) 1.0 x10^3/uL (0.0-1.1) Eosinophils # (Auto) 0.4 x10^3/uL (0.0-0.7) Basophils # (Auto) 0.1 x10^3/uL (0.0-0.2) Test 11/06/19 05:35 11/06/19 07:25 White Blood Count 28.9 x10^3/uL (4.0-11.0) Red Blood Count 2.80 x10^6/uL (3.50-5.40) Hemoglobin 8.2 g/dL (12.0-15.5) Hematocrit 25.3 % (36.0-47.0) Mean Corpuscular Volume 91 fL (79-100) Mean Corpuscular Hemoglobin 29 pg (25-35) Mean Corpuscular Hemoglobin Concent 33 g/dL (31-37) Red Cell Distribution Width 15.9 % (11.5-14.5) Platelet Count 305 x10^3/uL (140-400) Neutrophils (%) (Auto) 85 % (31-73) Lymphocytes (%) (Auto) 9 % (24-48) Monocytes (%) (Auto) 4 % (0-9) Eosinophils (%) (Auto) 2 % (0-3) Basophils (%) (Auto) 1 % (0-3) Neutrophils # (Auto) 24.5 x10^3/uL (1.8-7.7) Lymphocytes # (Auto) 2.7 x10^3/uL (1.0-4.8) Monocytes # (Auto) 1.0 x10^3/uL (0.0-1.1) Eosinophils # (Auto) 0.5 x10^3/uL (0.0-0.7) Basophils # (Auto) 0.2 x10^3/uL (0.0-0.2) Glucose (Fingerstick) 148 mg/dL (70-99) Laboratory Tests Test 11/05/19 12:05 11/05/19 16:40 11/05/19 21:17 11/06/19 05:35 White Blood Count 30.0 x10^3/uL (4.0-11.0) 28.9 x10^3/uL (4.0-11.0) Red Blood Count 2.90 x10^6/uL (3.50-5.40) 2.80 x10^6/uL (3.50-5.40) Hemoglobin 8.5 g/dL (12.0-15.5) 8.2 g/dL (12.0-15.5) Hematocrit 26.0 % (36.0-47.0) 25.3 % (36.0-47.0) Mean Corpuscular Volume 90 fL (79-100) 91 fL (79-100) Mean Corpuscular Hemoglobin 30 pg (25-35) 29 pg (25-35) Mean Corpuscular Hemoglobin Concent 33 g/dL (31-37) 33 g/dL (31-37) Red Cell Distribution Width 15.9 % (11.5-14.5) 15.9 % (11.5-14.5) Platelet Count 274 x10^3/uL (140-400) 305 x10^3/uL (140-400) Neutrophils (%) (Auto) 86 % (31-73) 85 % (31-73) Lymphocytes (%) (Auto) 9 % (24-48) 9 % (24-48) Monocytes (%) (Auto) 3 % (0-9) 4 % (0-9) Eosinophils (%) (Auto) 1 % (0-3) 2 % (0-3) Basophils (%) (Auto) 0 % (0-3) 1 % (0-3) Neutrophils # (Auto) 25.9 x10^3/uL (1.8-7.7) 24.5 x10^3/uL (1.8-7.7) Lymphocytes # (Auto) 2.6 x10^3/uL (1.0-4.8) 2.7 x10^3/uL (1.0-4.8) Monocytes # (Auto) 1.0 x10^3/uL (0.0-1.1) 1.0 x10^3/uL (0.0-1.1) Eosinophils # (Auto) 0.4 x10^3/uL (0.0-0.7) 0.5 x10^3/uL (0.0-0.7) Basophils # (Auto) 0.1 x10^3/uL (0.0-0.2) 0.2 x10^3/uL (0.0-0.2) Glucose (Fingerstick) 137 mg/dL (70-99) 179 mg/dL (70-99) Test 11/06/19 07:25 Glucose (Fingerstick) 148 mg/dL (70-99) Microbiology 11/01/19 Blood Culture - Preliminary, Resulted NO GROWTH AFTER 4 DAYS Medications Current Medications Sodium Chloride 500 ml @ 500 mls/hr 1X ONCE IV Last administered on 11/01/19at 13:00; Start 11/01/19 at 13:00; Stop 11/01/19 at 13:59; Status DC Ondansetron HCl (Zofran) 4 mg 1X ONCE IV Last administered on 11/01/19at 13:26; Start 11/01/19 at 13:00; Stop 11/01/19 at 13:13; Status DC Hydromorphone HCl (Dilaudid) 0.5 mg 1X STAT IVP Last administered on 11/01/19at 13:26; Start 11/01/19 at 12:59; Stop 11/01/19 at 13:13; Status DC Iohexol (Omnipaque 300 Mg/ml) 75 ml 1X ONCE IV Last administered on 11/01/19at 14:08; Start 11/01/19 at 13:45; Stop 11/01/19 at 13:46; Status DC Info (CONTRAST GIVEN -- Rx MONITORING) 1 each PRN DAILY PRN MC SEE COMMENTS; Start 11/01/19 at 14:00; Stop 11/03/19 at 13:59; Status DC Hydromorphone HCl (Dilaudid) 0.5 mg 1X STAT IVP Last administered on 11/01/19at 16:53; Start 11/01/19 at 16:21; Stop 11/01/19 at 16:23; Status DC Sodium Chloride 1,000 ml @ 1,000 mls/hr 1X ONCE IV Last administered on 11/01/19at 16:30; Start 11/01/19 at 16:30; Stop 11/01/19 at 17:29; Status DC Sodium Chloride 500 ml @ 500 mls/hr 1X ONCE IV Last administered on 11/01/19at 16:30; Start 11/01/19 at 16:30; Stop 11/01/19 at 17:29; Status DC Albuterol Sulfate (Ventolin Neb Soln) 2.5 mg PRN Q6HRS PRN INH SHORTNESS OF BREATH; Start 11/01/19 at 16:30 Alprazolam (Xanax) 0.25 mg PRN TID PRN PO anxiety; Start 11/01/19 at 16:30; Stop 11/01/19 at 17:11; Status DC Amlodipine Besylate (Norvasc) 5 mg DAILY PO Last administered on 11/06/19 09:30; Start 11/02/19 at 09:00 Cyclosporine (Restasis) 1 drop BID OU Last administered on 11/06/19 09:29; Start 11/01/19 at 21:00 Fluticasone Propionate (Flonase) 2 spray DAILY NS Last administered on 11/06/19 09:36; Start 11/02/19 at 09:00 Lactobacillus Rhamnosus (Culturelle) 1 cap BID PO Last administered on 11/06/19at 09:30; Start 11/01/19 at 21:00 Lidocaine (Lidoderm) 1 patch DAILY TP ; Start 11/02/19 at 09:00; Stop 11/01/19 at 20:34; Status DC Metoprolol Succinate (Toprol Xl) 100 mg HS PO Last administered on 11/05/19at 21:58; Start 11/01/19 at 21:00 Nystatin (Nystop) 1 raza BID TP Last administered on 11/06/19 09:36; Start 11/01/19 at 21:00 Pantoprazole Sodium (Protonix) 40 mg DAILYAC PO Last administered on 11/06/19at 09:29; Start 11/02/19 at 07:30 Senna/Docusate Sodium (Senna Plus) 1 tab BID PO Last administered on 11/06/19at 09:30; Start 11/01/19 at 21:00 Sucralfate (Carafate) 1 gm TIDAC PO Last administered on 11/06/19 09:30; Start 11/01/19 at 17:30 Tramadol HCl (Ultram) 50 mg PRN Q8HRS PRN PO PAIN; Start 11/01/19 at 16:30; Stop 11/01/19 at 19:43; Status DC Insulin Glargine (Lantus Syringe) 30 unit QHS SQ Last administered on 11/05/19at 22:14; Start 11/01/19 at 21:00 Ondansetron HCl (Zofran Odt) 8 mg PRN Q8HRS PRN PO NAUSEA/VOMITING Last administered on 11/02/19 07:48; Start 11/01/19 at 17:15 Polyethylene Glycol (miraLAX PACKET) 17 gm PRN DAILY PRN PO CONSTIPATION, 1ST CHOICE Last administered on 11/02/19 12:42; Start 11/01/19 at 17:11 Atorvastatin Calcium (Lipitor) 80 mg QHS PO Last administered on 11/05/19 21:59; Start 11/01/19 at 21:00 Insulin Human Lispro (HumaLOG) 0-9 UNITS TIDAC SQ Last administered on 11/05/19 12:58; Start 11/01/19 at 16:30 Dextrose (Dextrose 50%-Water Syringe) 12.5 gm PRN Q15MIN PRN IV SEE COMMENTS; Start 11/01/19 at 16:30 Ondansetron HCl (Zofran) 4 mg PRN Q8HRS PRN IV NAUSEA/VOMITING; Start 11/01/19 at 16:30; Stop 11/02/19 at 16:29; Status DC Alprazolam (Xanax) 0.25 mg PRN TID PRN PO anxiety Last administered on 11/06 10:20; Start 11/01/19 at 17:11 Miscellaneous (Lidoderm Patch Removal) 1 ea QHS MC ; Start 11/01/19 at 21:00; Stop 11/01/19 at 20:34; Status DC Ceftriaxone Sodium (Rocephin) 1 gm QHS IVP Last administered on 11/05/19at 21:59; Start 11/01/19 at 18:45 Tramadol HCl (Ultram) 50 mg PRN Q8HRS PRN PO MILD PAIN 1-3 Last administered on 11/05/19 22:04; Start 11/01/19 at 19:45 Hydromorphone HCl (Dilaudid) 1 mg PRN Q4HRS PRN IV PAIN Last administered on 11/06/19 09:31; Start 11/01/19 at 20:15 Lidocaine (Lidoderm) 1 patch QHS TP Last administered on 11/04/19 21:55; Start 11/01/19 at 21:00 Miscellaneous (Lidoderm Patch Removal) 1 ea DAILY MC Last administered on 11/06/19at 09:00; Start 11/02/19 at 09:00 Albumin Human 500 ml @ 125 mls/hr 1X ONCE IV ; Start 11/02/19 at 02:00; Stop 11/02/19 at 05:59; Status Cancel Acetaminophen (Tylenol) 650 mg 1X PRN PRN PO PRE-TRANSFUSION; Start 11/02/19 at 06:45; Stop 11/03/19 at 14:16; Status DC Diphenhydramine HCl (Benadryl Oral Elixir) 12.5 mg 1X PRN PRN PO PRE- TRANSFUSION; Start 11/02/19 at 06:45; Stop 11/03/19 at 14:16; Status DC Diphenhydramine HCl (Benadryl) 25 mg PRN 1X PRN PO PRE-TRANSFUSION; Start 11/02/19 at 06:45; Stop 11/03/19 at 14:16; Status DC Lactulose (LACTULOSE 300ML for RECTAL) 200 gm Q6HRS FL Last administered on 11/02/19at 18:00; Start 11/02/19 at 18:00; Stop 11/04/19 at 14:44; Status DC Sodium Chloride 1,000 ml @ 100 mls/hr Q10H IV Last administered on 11/06/19at 03:37; Start 11/02/19 at 12:00 Lactulose (Lactulose) 20 gm PRN DAILY PRN PO CONSTIPATION, 2ND CHOICE; Start 11/04/19 at 14:45 Oxycodone HCl (Roxicodone) 5 mg PRN Q6HRS PRN PO MODERATE TO SEVERE PAIN Last administered on 11/05/19at 17:38; Start 11/04/19 at 14:45 Lidocaine HCl (Buffered Lidocaine 1%) 3 ml STK-MED ONCE .ROUTE ; Start 11/05/19 at 08:13; Stop 11/05/19 at 08:13; Status DC Lidocaine HCl (Buffered Lidocaine 1%) 3 ml STK-MED ONCE .ROUTE ; Start 11/05/19 at 08:14; Stop 11/05/19 at 08:14; Status DC Midazolam HCl (Versed) 2 mg STK-MED ONCE .ROUTE ; Start 11/05/19 at 08:40; Stop 11/05/19 at 08:40; Status DC Fentanyl Citrate (Fentanyl 2ml Vial) 100 mcg STK-MED ONCE .ROUTE ; Start 11/05/19 at 08:40; Stop 11/05/19 at 08:41; Status DC Lidocaine HCl (Buffered Lidocaine 1%) 3 ml 1X ONCE IJ Last administered on 11/05/19at 08:45; Start 11/05/19 at 08:45; Stop 11/05/19 at 08:50; Status DC Midazolam HCl (Versed) 2 mg 1X ONCE IV Last administered on 11/05/19at 08:45; Start 11/05/19 at 08:45; Stop 11/05/19 at 08:50; Status DC Fentanyl Citrate (Fentanyl 2ml Vial) 100 mcg 1X ONCE IV Last administered on 11/05/19at 08:45; Start 11/05/19 at 08:45; Stop 11/05/19 at 08:50; Status DC Dexamethasone Sodium Phosphate (Decadron) 4 mg Q6HRS IVP Last administered on 11/06/19at 10:13; Start 11/06/19 at 09:00 Active Scripts Active Enoxaparin Sodium 120 Mg/0.8 Ml Disp.syrin 120 Mg SQ Q12HR 28 Days Dexamethasone 4 Mg Tablet 4 Mg PO BID 14 Days Culturelle (Lactobacillus Rhamnosus Gg) 1 Each Cap.sprink 1 Cap PO BID 30 Days Amlodipine Besylate 5 Mg Tablet 5 Mg PO DAILY 30 Days Cefdinir 300 Mg Capsule 300 Mg PO BID 10 Days Reported Cymbalta (Duloxetine Hcl) 60 Mg Capsule.dr 1 Cap PO BID Lyrica (Pregabalin) 150 Mg Capsule 1 Cap PO BID Novolog (Insulin Aspart) 100 Unit/1 Ml Cartridge 10-45 Unit SQ QIDACHS Levemir (Insulin Detemir) 100 Unit/1 Ml Vial 30 Unit SQ HS Linzess (Linaclotide) 145 Mcg Capsule 145 Mcg PO PRN PRN Crestor (Rosuvastatin Calcium) 40 Mg Tablet 0.5 Tab PO DAILY Polyethylene Glycol 3350 2,500 Gm Powder 17 Gm PO PRN PRN Xanax (Alprazolam) 1 Mg Tablet 1 Tab PO TID Restasis (Cyclosporine) 1 Each Droperette 1 Drop EACHEYE BID Proair Hfa Inhaler (Albuterol Sulfate) 8.5 Gm Hfa.aer.ad 1 Puff INH PRN Q6HRS PRN Tramadol Hcl 50 Mg Tablet 1 Tab PO PRN Q8HRS PRN Ondansetron Hcl 4 Mg Tablet 2 Tab PO PRN Q8HRS PRN Nystatin 15 Gm Powder 1 [place] TP BID Lidocaine PATCH (Lidocaine) 1 Each Adh..patch 1 Each TP DAILY Fluticasone Propionate Nasal [place] (Fluticasone Propionate) 16 Gm [place].susp 2 [place] NS DAILY Percocet 5-325 Mg Tablet (Oxycodone/Acetaminophen) 1 Each Tablet 1-2 Tab PO Q4-6HRS PRN LAST DOSE AT NEXT DOSE Senna-Docusate Sodium Tablet (Sennosides/Docusate Sodium) 1 Each Tablet 1 Each PO BID LAST DOSE THIS AM NEXT DOSE TONIGHT Robaxin-750 (Methocarbamol) 750 Mg Tablet 1 Tab PO TID LAST DOSE AT 1400 (2PM) MAY HAVE THE NEXT DOSE AT 10 PM Protonix (Pantoprazole Sodium) 40 Mg Tablet.dr 40 Mg PO DAILY LST DOSE THIS AM NEXT DOSE TOMORROW AM Carafate (Sucralfate) 1 Gm Tablet 1 Tab PO TID Meds not given this hospital admission. May resume home medications as approved by Physician. MAY TAKE WHEN AVAILABLE Xarelto (Rivaroxaban) 15 Mg Tablet 15 Mg PO DAILY Meds not given this hospital admission. May resume home medications as approved by Physician. MAY RESUME WHEN AVAILABLE Metoprolol Succinate ( Xl ) (Metoprolol Succinate) 100 Mg Tab.er.24h 100 Mg PO HS LAST DOSE THIS AM NEXT DOSE TOMORROW AM Vitals/I & O Vital Sign - Last 24 Hours 11/05/19 11/05/19 11/05/19 11/05/19 12:30 13:31 14:56 18:38 Temp 97.9 97.9 Pulse 90 94 90 Resp B/P (MAP) 96/66 (76) 115/59 (77) 120/64 (82) Pulse Ox 97 98 97 O2 Delivery Room Air Room Air Nasal Cannula Room Air O2 Flow Rate 2.0 11/05/19 11/05/19 11/05/19 11/05/19 18:39 19:00 19:08 20:20 Temp 98.8 98.8 Pulse 105 Resp 20 19 B/P (MAP) 131/80 (97) Pulse Ox 97 96 O2 Delivery Room Air Room Air Room Air O2 Flow Rate 2.0 11/05/19 11/05/19 11/05/19 11/05/19 21:58 22:04 22:43 23:00 Temp 100.3 100.3 Pulse 105 107 Resp 20 20 18 B/P (MAP) 131/80 132/88 (103) Pulse Ox 94 O2 Delivery Room Air Nasal Cannula 11/05/19 11/05/19 11/06/19 11/06/19 23:04 23:04 03:37 04:07 Resp 20 20 18 20 O2 Delivery Room Air Room Air Room Air Nasal Cannula 11/06/19 11/06/19 11/06/19 11/06/19 07:00 09:30 09:31 10:13 Temp 97.8 97.8 Pulse 81 81 Resp 19 B/P (MAP) 116/61 (79) 116/61 Pulse Ox 97 O2 Delivery Nasal Cannula Nasal Cannula Room Air O2 Flow Rate 2.0 3.0 11/06/19 10:52 Temp 97.7 97.7 Pulse 91 Resp 19 B/P (MAP) 104/52 (69) Pulse Ox 97 O2 Delivery Room Air Intake and Output 11/05/19 11/05/19 11/06/19 15:00 23:00 07:00 Intake Total 300 ml 300 ml 1000 ml Output Total 850 ml 850 ml 3400 ml Balance -550 ml -550 ml -2400 ml Nutrition Consultation Dietary Evaluation: Recommendations by RD: Increase Calorie Intake, Protein supplementation Comments: REC ADA/cardiac diet, will adjust diet order as needed REC glucerna w/dinner trays and prn Ok to liberalize diet as needed to promote PO intake Expected Outcomes/Goals: PO intake to meet >75% est needs Interpretation of weight loss: >5% in 1 month Malnutrition Findings: Food and Nutrition Intake (Sev: <50% est energy req 5days Weight Status: Morbidly Obese RAFAEL CAT MD Nov 06, 2019 11:45
--- NOTE | 2019-11-06 13:53 | PDOC2 ---
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 Vasogenic edema with 4 mm left to right midline shift Headaches. Cognitive impairment. Staring spells. HTN. HLD. DM. KRISS. ADHD. PE Hx. Leukocytosis. Obesity. RECOMMENDATIONS/PLAN: Pain control for headache. Decadron 4 mg IV q6h. Continue Lipitor HS. EEG. Treat medical diseases. Consulted Neurosurgery and Oncology.. Weight reduction. OT/PT. History of Present Illness This is a 49-year-old female patient with history of CAD, Diabetes, High Cholesterol, Hypertension, Kidney Stones, Ovarian Cyst, Pneumonia, pulmonary embolism, tachycardia was brought to the ER of [facility] with complaints of headaches and presyncope. She stated that she has been having chronic headaches in her left side frontal and temporal head for about 2 years and right LE weakness that gradually became worse and she was unable to walk. She was revealed a brain tumor in 09/2019, but her headaches and right LE weakness progressed. She has nausea but no vomiting. Past Medical History Cardiovascular: HTN, Hyperlipidemia, Other (tachycardia) Pulmonary: Asthma, Pulmonary embolus ( DVT, on [place]), Other (sleep apnea) CENTRAL NERVOUS SYSTEM: Periperal neuropathy, Other (right L5 radiculopathy) GI: Peptic Ulcer disease, Other (pancreatitis, hiatal hernia) Psych: Anxiety, Depression, Other (ADHD) Musculoskeletal: low back pain Renal/: Other (nephrolithiasis) Endocrine: Diabetes Past Surgical History Appendectomy, Cholecystectomy, , Hysterectomy (fbrioids), Other (lumbar laminectomy) Family History Cancer, CAD Social History ex smoker, no alcohol, disabled Allergies Coded Allergies: azithromycin (Verified Allergy, Intermediate, 10/12/19) codeine (Verified Allergy, Intermediate, 05/06/17) morphine (Verified Allergy, Intermediate, 05/06/17) ROS Negative for fever, chills, weight loss, shortness of breath, chest pain, indigestion, hematochezia, melena, and dysuria. Full 14-point review of systems is negative. MEDICATIONS: Refer to [facility] PHYSICAL EXAMINATION: General appearance in subacute distress. HEENT: Normocephalic and nontraumatic. Eyes, nose, ears, and throat are unremarkable. Hearing decrease. Neck is supple. No lymphadenopathy. No Crepitus. Cardiovascular: S1, S2, regular rate and rhythm. Pulmonary: Clear to auscultation bilaterally. Abdomen: Bowel sounds are positive. Abdomen is soft, nontender, and nondistended. Extremities: No rash, lesions, or edema. No restriction of range of motion NEUROLOGICAL EXAMINATION: Alert. Oriented to time, place and person. PERRL. EOMI. CN: no focal findings. Muscle tone: within normal. Muscle strength: 4 right UE, 1-2 right LE, 4+ left side. DTR: 1 Plantar reflex: Flexor response bilaterally Gait: not able to walk. Sensory exam: seemed mildly decreased to light touch in right LE below the knee. No cerebellar signs elicited. F-T-N test fine. Current Medications Current Medications Current Medications Sodium Chloride 500 ml @ 500 mls/hr 1X ONCE IV Last administered on 11/01/19at 13:00; Start 11/01/19 at 13:00; Stop 11/01/19 at 13:59; Status DC Ondansetron HCl (Zofran) 4 mg 1X ONCE IV Last administered on 11/01/19at 13:26; Start 11/01/19 at 13:00; Stop 11/01/19 at 13:13; Status DC Hydromorphone HCl (Dilaudid) 0.5 mg 1X STAT IVP Last administered on 11/01/19at 13:26; Start 11/01/19 at 12:59; Stop 11/01/19 at 13:13; Status DC Iohexol (Omnipaque 300 Mg/ml) 75 ml 1X ONCE IV Last administered on 11/01/19at 14:08; Start 11/01/19 at 13:45; Stop 11/01/19 at 13:46; Status DC Info (CONTRAST GIVEN -- Rx MONITORING) 1 each PRN DAILY PRN MC SEE COMMENTS; Start 11/01/19 at 14:00; Stop 11/03/19 at 13:59; Status DC Hydromorphone HCl (Dilaudid) 0.5 mg 1X STAT IVP Last administered on 11/01/19at 16:53; Start 11/01/19 at 16:21; Stop 11/01/19 at 16:23; Status DC Sodium Chloride 1,000 ml @ 1,000 mls/hr 1X ONCE IV Last administered on 11/01/19at 16:30; Start 11/01/19 at 16:30; Stop 11/01/19 at 17:29; Status DC Sodium Chloride 500 ml @ 500 mls/hr 1X ONCE IV Last administered on 11/01/19at 16:30; Start 11/01/19 at 16:30; Stop 11/01/19 at 17:29; Status DC Albuterol Sulfate (Ventolin Neb Soln) 2.5 mg PRN Q6HRS PRN INH SHORTNESS OF ASYRA ATH; Start 11/01/19 at 16:30 Alprazolam (Xanax) 0.25 mg PRN TID PRN PO anxiety; Start 11/01/19 at 16:30; Stop 11/01/19 at 17:11; Status DC Amlodipine Besylate (Norvasc) 5 mg DAILY PO Last administered on 11/06/19at 09:30; Start 11/02/19 at 09:00 Cyclosporine (Restasis) 1 drop BID OU Last administered on 11/06/19at 09:29; Start 11/01/19 at 21:00 Fluticasone Propionate (Flonase) 2 spray DAILY NS Last administered on 11/06/19 09:36; Start 11/02/19 at 09:00 Lactobacillus Rhamnosus (Culturelle) 1 cap BID PO Last administered on 11/06/19at 09:30; Start 11/01/19 at 21:00 Lidocaine (Lidoderm) 1 patch DAILY TP ; Start 11/02/19 at 09:00; Stop 11/01/19 at 20:34; Status DC Metoprolol Succinate (Toprol Xl) 100 mg HS PO Last administered on 11/05/19at 2 1:58; Start 11/01/19 at 21:00 Nystatin (Nystop) 1 raza BID TP Last administered on 11/06/19 09:36; Start 11/01/19 at 21:00 Pantoprazole Sodium (Protonix) 40 mg DAILYAC PO Last administered on 11/06/19at 09:29; Start 11/02/19 at 07:30 Senna/Docusate Sodium (Senna Plus) 1 tab BID PO Last administered on 11/06/19at 09:30; Start 11/01/19 at 21:00 Sucralfate (Carafate) 1 gm TIDAC PO Last administered on 11/06/19at 11:41; Start 11/01/19 at 17:30 Tramadol HCl (Ultram) 50 mg PRN Q8HRS PRN PO PAIN; Start 11/01/19 at 16:30; Stop 11/01/19 at 19:43; Status DC Insulin Glargine (Lantus Syringe) 30 unit QHS SQ Last administered on 1 01/06/19at 22:14; Start 11/01/19 at 21:00 Ondansetron HCl (Zofran Odt) 8 mg PRN Q8HRS PRN PO NAUSEA/VOMITING Last administered on 11/02/19at 07:48; Start 11/01/19 at 17:15 Polyethylene Glycol (miraLAX PACKET) 17 gm PRN DAILY PRN PO CONSTIPATION, 1ST CHOICE Last administered on 11/02/19at 12:42; Start 11/01/19 at 17:11 Atorvastatin Calcium (Lipitor) 80 mg QHS PO Last administered on 11/05/19at 21:59; Start 11/01/19 at 21:00 Insulin Human Lispro (HumaLOG) 0-9 UNITS TIDAC SQ Last administered on 9at 11:46; Start 11/01/19 at 16:30 Dextrose (Dextrose 50%-Water Syringe) 12.5 gm PRN Q15MIN PRN IV SEE COMMENTS; Start 11/01/19 at 16:30 Ondansetron HCl (Zofran) 4 mg PRN Q8HRS PRN IV NAUSEA/VOMITING; Start 11/01/19 at 16:30; Stop 11/02/19 at 16:29; Status DC Alprazolam (Xanax) 0.25 mg PRN TID PRN PO anxiety Last administered on 11/06/19at 10:20; Start 11/01/19 at 17:11 Miscellaneous (Lidoderm Patch Removal) 1 ea QHS MC ; Start 11/01/19 at 21:00; Stop 11/01/19 at 20:34; Status DC Ceftriaxone Sodium (Rocephin) 1 gm QHS IVP Last administered on 11/05/19at 21:59; Start 11/01/19 at 18:45 Tramadol HCl (Ultram) 50 mg PRN Q8HRS PRN PO MILD PAIN 1-3 Last administered on 11/05/19 22:04; Start 11/01/19 at 19:45 Hydromorphone HCl (Dilaudid) 1 mg PRN Q4HRS PRN IV PAIN Last administered on 11/06/19 09:31; Start 11/01/19 at 20:15 Lidocaine (Lidoderm) 1 patch QHS TP Last administered on 11/04/19at 21:55; Start 11/01/19 at 21:00 Miscellaneous (Lidoderm Patch Removal) 1 ea DAILY MC Last administered on 11/06/19 09:00; Start 11/02/19 at 09:00 Albumin Human 500 ml @ 125 mls/hr 1X ONCE IV ; Start 11/02/19 at 02:00; Stop 11/02/19 at 05:59; Status Cancel Acetaminophen (Tylenol) 650 mg 1X PRN PRN PO PRE-TRANSFUSION; Start 11/02/19 at 06:45; Stop 11/03/19 at 14:16; Status DC Diphenhydramine HCl (Benadryl Oral Elixir) 12.5 mg 1X PRN PRN PO PRE- TRANSFUSION; Start 11/02/19 at 06:45; Stop 11/03/19 at 14:16; Status DC Diphenhydramine HCl (Benadryl) 25 mg PRN 1X PRN PO PRE-TRANSFUSION; Start 11/02/19 at 06:45; Stop 11/03/19 at 14:16; Status DC Lactulose (LACTULOSE 300ML for RECTAL) 200 gm Q6HRS [place] Last administered on at 18:00; Start 11/02/19 at 18:00; Stop 11/04/19 at 14:44; Status DC Sodium Chloride 1,000 ml @ 100 mls/hr Q10H IV Last administered on 11/06/19at 03:37; Start 11/02/19 at 12:00 Lactulose (Lactulose) 20 gm PRN DAILY PRN PO CONSTIPATION, 2ND CHOICE; Start 11/04/19 at 14:45 Oxycodone HCl (Roxicodone) 5 mg PRN Q6HRS PRN PO MODERATE TO SEVERE PAIN Last administered on 11/06/19at 11:41; Start 11/04/19 at 14:45 Lidocaine HCl (Buffered Lidocaine 1%) 3 ml STK-MED ONCE .ROUTE ; Start 11/05/19 at 08:13; Stop 11/05/19 at 08:13; Status DC Lidocaine HCl (Buffered Lidocaine 1%) 3 ml STK-MED ONCE .ROUTE ; Start 11/05/19 at 08:14; Stop 11/05/19 at 08:14; Status DC Midazolam HCl (Versed) 2 mg STK-MED ONCE .ROUTE ; Start 11/05/19 at 08:40; Stop 11/05/19 at 08:40; Status DC Fentanyl Citrate (Fentanyl 2ml Vial) 100 mcg STK-MED ONCE .ROUTE ; Start 11/05/19 at 08:40; Stop 11/05/19 at 08:41; Status DC Lidocaine HCl (Buffered Lidocaine 1%) 3 ml 1X ONCE IJ Last administered on 11/05/19at 08:45; Start 11/05/19 at 08:45; Stop 11/05/19 at 08:50; Status DC Midazolam HCl (Versed) 2 mg 1X ONCE IV Last administered on 11/05/19at 08:45; Start 11/05/19 at 08:45; Stop 11/05/19 at 08:50; Status DC Fentanyl Citrate (Fentanyl 2ml Vial) 100 mcg 1X ONCE IV Last administered on 11/05/19at 08:45; Start 11/05/19 at 08:45; Stop 11/05/19 at 08:50; Status DC Dexamethasone Sodium Phosphate (Decadron) 4 mg Q6HRS IVP Last administered on 11/06/19at 10:13; Start 11/06/19 at 09:00 Active Scripts Active Enoxaparin Sodium 120 Mg/0.8 Ml Disp.syrin 120 Mg SQ Q12HR 28 Days Dexamethasone 4 Mg Tablet 4 Mg PO BID 14 Days Culturelle (Lactobacillus Rhamnosus Gg) 1 Each Cap.sprink 1 Cap PO BID 30 Days Amlodipine Besylate 5 Mg Tablet 5 Mg PO DAILY 30 Days Cefdinir 300 Mg Capsule 300 Mg PO BID 10 Days Reported Cymbalta (Duloxetine Hcl) 60 Mg Capsule.dr 1 Cap PO BID Lyrica (Pregabalin) 150 Mg Capsule 1 Cap PO BID Novolog (Insulin Aspart) 100 Unit/1 Ml Cartridge 10-45 Unit SQ QIDACHS Levemir (Insulin Detemir) 100 Unit/1 Ml Vial 30 Unit SQ HS Linzess (Linaclotide) 145 Mcg Capsule 145 Mcg PO PRN PRN Crestor (Rosuvastatin Calcium) 40 Mg Tablet 0.5 Tab PO DAILY Polyethylene Glycol 3350 2,500 Gm Powder 17 Gm PO PRN PRN Xanax (Alprazolam) 1 Mg Tablet 1 Tab PO TID Restasis (Cyclosporine) 1 Each Droperette 1 Drop EACHEYE BID Proair Hfa Inhaler (Albuterol Sulfate) 8.5 Gm Hfa.aer.ad 1 Puff INH PRN Q6HRS PRN Tramadol Hcl 50 Mg Tablet 1 Tab PO PRN Q8HRS PRN Ondansetron Hcl 4 Mg Tablet 2 Tab PO PRN Q8HRS PRN Nystatin 15 Gm Powder 1 Raza TP BID Lidocaine PATCH (Lidocaine) 1 Each Adh..patch 1 Each TP DAILY Fluticasone Propionate Nasal Kersey (Fluticasone Propionate) 16 Gm Kersey.susp 2 Kersey NS DAILY Percocet 5-325 Mg Tablet (Oxycodone/Acetaminophen) 1 Each Tablet 1-2 Tab PO Q4-6HRS PRN LAST DOSE AT NEXT DOSE Senna-Docusate Sodium Tablet (Sennosides/Docusate Sodium) 1 Each Tablet 1 Each PO BID LAST DOSE THIS AM NEXT DOSE TONIGHT Robaxin-750 (Methocarbamol) 750 Mg Tablet 1 Tab PO TID LAST DOSE AT 1400 (2PM) MAY HAVE THE NEXT DOSE AT 10 PM Protonix (Pantoprazole Sodium) 40 Mg Tablet.dr 40 Mg PO DAILY LST DOSE THIS AM NEXT DOSE TOMORROW AM Carafate (Sucralfate) 1 Gm Tablet 1 Tab PO TID Meds not given this hospital admission. May resume home medications as approved by Physician. MAY TAKE WHEN AVAILABLE Xarelto (Rivaroxaban) 15 Mg Tablet 15 Mg PO DAILY Meds not given this hospital admission. May resume home medications as approved by Physician. MAY RESUME WHEN AVAILABLE Metoprolol Succinate ( Xl ) (Metoprolol Succinate) 100 Mg Tab.er.24h 100 Mg PO HS LAST DOSE THIS AM NEXT DOSE TOMORROW AM Allergies Allergies: Allergies Coded Allergies Type Severity Reaction Last Updated Verified azithromycin Allergy Intermediate 10/12/19 Yes codeine Allergy Intermediate 05/06/17 Yes morphine Allergy Intermediate 11/01/19 Yes ROS Review of System The patient denies any associated fevers, chills, headache, ear pain, rhinorrhea, sore throat, stiff neck, productive cough, chest pain, shortness of breath, back or flank pain, abdominal pain, nausea, vomiting, diarrhea, constipation, dysuria, rash, numbness, weakness, tingling, incontinence, difficulty ambulating, or diaphoresis. Physical Exam Physical Exam General: Well developed, well nourished, no acute distress, well appearing HEENT: Pupils equally round and reactive to light, EOMI, no discharge, normal conjunctiva Neck: Supple, no nuchal rigidity, no JVD, trachea midline, no tenderness Cardiac: RRR, no murmurs, no gallops, no rubs Chest/Lungs: CTAB, no wheeze, no rhonchi, no crackles Abdomen: soft, non-distended, no guarding, no peritoneal signs, non-tender Back: No tenderness Extremities: no edema, pulses intact, non-tender,capillary refill <3 sec bilateral upper and lower extremities, Neuro: Alert and oriented x 4, no focal deficits, normal speech Vitals Vitals: Vital Signs Date Time Temp Pulse Resp B/P (MAP) Pulse Ox O2 Delivery O2 Flow Rate FiO2 11/06/19 11:41 Room Air 11/06/19 10:52 97.7 91 19 104/52 (69) 97 97.7 11/06/19 09:31 3.0 Labs Labs Laboratory Tests Test 11/04/19 18:29 11/04/19 21:12 11/05/19 08:00 11/05/19 11:36 Glucose (Fingerstick) 141 mg/dL (70-99) 158 mg/dL (70-99) 163 mg/dL (70-99) 172 mg/dL (70-99) Test 11/05/19 12:05 11/05/19 16:40 11/05/19 21:17 11/06/19 05:35 White Blood Count 30.0 x10^3/uL (4.0-11.0) 28.9 x10^3/uL (4.0-11.0) Red Blood Count 2.90 x10^6/uL (3.50-5.40) 2.80 x10^6/uL (3.50-5.40) Hemoglobin 8.5 g/dL (12.0-15.5) 8.2 g/dL (12.0-15.5) Hematocrit 26.0 % (36.0-47.0) 25.3 % (36.0-47.0) Mean Corpuscular Volume 90 fL (79-100) 91 fL (79-100) Mean Corpuscular Hemoglobin 30 pg (25-35) 29 pg (25-35) Mean Corpuscular Hemoglobin Concent 33 g/dL (31-37) 33 g/dL (31-37) Red Cell Distribution Width 15.9 % (11.5-14.5) 15.9 % (11.5-14.5) Platelet Count 274 x10^3/uL (140-400) 305 x10^3/uL (140-400) Neutrophils (%) (Auto) 86 % (31-73) 85 % (31-73) Lymphocytes (%) (Auto) 9 % (24-48) 9 % (24-48) Monocytes (%) (Auto) 3 % (0-9) 4 % (0-9) Eosinophils (%) (Auto) 1 % (0-3) 2 % (0-3) Basophils (%) (Auto) 0 % (0-3) 1 % (0-3) Neutrophils # (Auto) 25.9 x10^3/uL (1.8-7.7) 24.5 x10^3/uL (1.8-7.7) Lymphocytes # (Auto) 2.6 x10^3/uL (1.0-4.8) 2.7 x10^3/uL (1.0-4.8) Monocytes # (Auto) 1.0 x10^3/uL (0.0-1.1) 1.0 x10^3/uL (0.0-1.1) Eosinophils # (Auto) 0.4 x10^3/uL (0.0-0.7) 0.5 x10^3/uL (0.0-0.7) Basophils # (Auto) 0.1 x10^3/uL (0.0-0.2) 0.2 x10^3/uL (0.0-0.2) Glucose (Fingerstick) 137 mg/dL (70-99) 179 mg/dL (70-99) Test 11/06/19 07:25 11/06/19 11:32 Glucose (Fingerstick) 148 mg/dL (70-99) 204 mg/dL (70-99) Laboratory Tests Test 11/05/19 16:40 11/05/19 21:17 11/06/19 05:35 11/06/19 07:25 Glucose (Fingerstick) 137 mg/dL (70-99) 179 mg/dL (70-99) 148 mg/dL (70-99) White Blood Count 28.9 x10^3/uL (4.0-11.0) Red Blood Count 2.80 x10^6/uL (3.50-5.40) Hemoglobin 8.2 g/dL (12.0-15.5) Hematocrit 25.3 % (36.0-47.0) Mean Corpuscular Volume 91 fL (79-100) Mean Corpuscular Hemoglobin 29 pg (25-35) Mean Corpuscular Hemoglobin Concent 33 g/dL (31-37) Red Cell Distribution Width 15.9 % (11.5-14.5) Platelet Count 305 x10^3/uL (140-400) Neutrophils (%) (Auto) 85 % (31-73) Lymphocytes (%) (Auto) 9 % (24-48) Monocytes (%) (Auto) 4 % (0-9) Eosinophils (%) (Auto) 2 % (0-3) Basophils (%) (Auto) 1 % (0-3) Neutrophils # (Auto) 24.5 x10^3/uL (1.8-7.7) Lymphocytes # (Auto) 2.7 x10^3/uL (1.0-4.8) Monocytes # (Auto) 1.0 x10^3/uL (0.0-1.1) Eosinophils # (Auto) 0.5 x10^3/uL (0.0-0.7) Basophils # (Auto) 0.2 x10^3/uL (0.0-0.2) Test 11/06/19 11:32 Glucose (Fingerstick) 204 mg/dL (70-99) JOHNATHON OGLESBY MD Nov 06, 2019 13:53
[2019-11-06 15:00] VITALS: BP 110/64
--- NOTE | 2019-11-06 15:29 | PDOC ---
PROGRESS NOTES Subjective Subjective Denies acute changes. ROS - unchanged headache, RLE weakness grossly unchanged, denies soa or cp Objective Objective Vital Signs Date Time Temp Pulse Resp B/P (MAP) Pulse Ox O2 Delivery O2 Flow Rate FiO2 11/06/19 15:00 97.7 90 19 110/64 (79) 91 Room Air 97.7 11/06/19 09:31 3.0 Intake and Output 11/06/19 07:00 Intake Total 1600 ml Output Total 5100 ml Balance -3500 ml Intake Oral 600 ml IV Total 1000 ml Output Urine Total 5100 ml Physical Exam Physical Exam AAOx4, NAD, PERRL, EOMI, LLANES RDF and PF 2/5, sensation unchanged LT CT head some increased edema otherwise no other acute changes Assessment Assessment Problems Medical Problems: (1) Abdominal hemorrhage Status: Acute (2) Generalized weakness Status: Acute (3) Lactic acidosis Status: Acute (4) Leukocytosis Status: Acute Plan Plan of Care -marrow bx result pending - confer with heme regarding overall definitive plan/timing of potential interventions largely based on this result -agree with steroid re-initiation -continue to monitor for changes Comment Review of Relevant I have reviewed the following items mustapha (where applicable) has been applied. Labs Laboratory Tests Test 11/04/19 18:29 11/04/19 21:12 11/05/19 08:00 11/05/19 11:36 Glucose (Fingerstick) 141 mg/dL (70-99) 158 mg/dL (70-99) 163 mg/dL (70-99) 172 mg/dL (70-99) Test 11/05/19 12:05 11/05/19 16:40 11/05/19 21:17 11/06/19 05:35 White Blood Count 30.0 x10^3/uL (4.0-11.0) 28.9 x10^3/uL (4.0-11.0) Red Blood Count 2.90 x10^6/uL (3.50-5.40) 2.80 x10^6/uL (3.50-5.40) Hemoglobin 8.5 g/dL (12.0-15.5) 8.2 g/dL (12.0-15.5) Hematocrit 26.0 % (36.0-47.0) 25.3 % (36.0-47.0) Mean Corpuscular Volume 90 fL (79-100) 91 fL (79-100) Mean Corpuscular Hemoglobin 30 pg (25-35) 29 pg (25-35) Mean Corpuscular Hemoglobin Concent 33 g/dL (31-37) 33 g/dL (31-37) Red Cell Distribution Width 15.9 % (11.5-14.5) 15.9 % (11.5-14.5) Platelet Count 274 x10^3/uL (140-400) 305 x10^3/uL (140-400) Neutrophils (%) (Auto) 86 % (31-73) 85 % (31-73) Lymphocytes (%) (Auto) 9 % (24-48) 9 % (24-48) Monocytes (%) (Auto) 3 % (0-9) 4 % (0-9) Eosinophils (%) (Auto) 1 % (0-3) 2 % (0-3) Basophils (%) (Auto) 0 % (0-3) 1 % (0-3) Neutrophils # (Auto) 25.9 x10^3/uL (1.8-7.7) 24.5 x10^3/uL (1.8-7.7) Lymphocytes # (Auto) 2.6 x10^3/uL (1.0-4.8) 2.7 x10^3/uL (1.0-4.8) Monocytes # (Auto) 1.0 x10^3/uL (0.0-1.1) 1.0 x10^3/uL (0.0-1.1) Eosinophils # (Auto) 0.4 x10^3/uL (0.0-0.7) 0.5 x10^3/uL (0.0-0.7) Basophils # (Auto) 0.1 x10^3/uL (0.0-0.2) 0.2 x10^3/uL (0.0-0.2) Glucose (Fingerstick) 137 mg/dL (70-99) 179 mg/dL (70-99) Test 11/06/19 07:25 11/06/19 11:32 Glucose (Fingerstick) 148 mg/dL (70-99) 204 mg/dL (70-99) Laboratory Tests Test 11/05/19 16:40 11/05/19 21:17 11/06/19 05:35 11/06/19 07:25 Glucose (Fingerstick) 137 mg/dL (70-99) 179 mg/dL (70-99) 148 mg/dL (70-99) White Blood Count 28.9 x10^3/uL (4.0-11.0) Red Blood Count 2.80 x10^6/uL (3.50-5.40) Hemoglobin 8.2 g/dL (12.0-15.5) Hematocrit 25.3 % (36.0-47.0) Mean Corpuscular Volume 91 fL (79-100) Mean Corpuscular Hemoglobin 29 pg (25-35) Mean Corpuscular Hemoglobin Concent 33 g/dL (31-37) Red Cell Distribution Width 15.9 % (11.5-14.5) Platelet Count 305 x10^3/uL (140-400) Neutrophils (%) (Auto) 85 % (31-73) Lymphocytes (%) (Auto) 9 % (24-48) Monocytes (%) (Auto) 4 % (0-9) Eosinophils (%) (Auto) 2 % (0-3) Basophils (%) (Auto) 1 % (0-3) Neutrophils # (Auto) 24.5 x10^3/uL (1.8-7.7) Lymphocytes # (Auto) 2.7 x10^3/uL (1.0-4.8) Monocytes # (Auto) 1.0 x10^3/uL (0.0-1.1) Eosinophils # (Auto) 0.5 x10^3/uL (0.0-0.7) Basophils # (Auto) 0.2 x10^3/uL (0.0-0.2) Test 11/06/19 11:32 Glucose (Fingerstick) 204 mg/dL (70-99) Microbiology 11/01/19 Blood Culture - Preliminary, Resulted NO GROWTH AFTER 4 DAYS Medications Current Medications Sodium Chloride 500 ml @ 500 mls/hr 1X ONCE IV Last administered on 11/01/19at 13:00; Start 11/01/19 at 13:00; Stop 11/01/19 at 13:59; Status DC Ondansetron HCl (Zofran) 4 mg 1X ONCE IV Last administered on 11/01/19at 13:26; Start 11/01/19 at 13:00; Stop 11/01/19 at 13:13; Status DC Hydromorphone HCl (Dilaudid) 0.5 mg 1X STAT IVP Last administered on 11/01/19at 13:26; Start 11/01/19 at 12:59; Stop 11/01/19 at 13:13; Status DC Iohexol (Omnipaque 300 Mg/ml) 75 ml 1X ONCE IV Last administered on 11/01/19at 14:08; Start 11/01/19 at 13:45; Stop 11/01/19 at 13:46; Status DC Info (CONTRAST GIVEN -- Rx MONITORING) 1 each PRN DAILY PRN MC SEE COMMENTS; Start 11/01/19 at 14:00; Stop 11/03/19 at 13:59; Status DC Hydromorphone HCl (Dilaudid) 0.5 mg 1X STAT IVP Last administered on 11/01/19at 16:53; Start 11/01/19 at 16:21; Stop 11/01/19 at 16:23; Status DC Sodium Chloride 1,000 ml @ 1,000 mls/hr 1X ONCE IV Last administered on 11/01/19at 16:30; Start 11/01/19 at 16:30; Stop 11/01/19 at 17:29; Status DC Sodium Chloride 500 ml @ 500 mls/hr 1X ONCE IV Last administered on 11/01/19at 16:30; Start 11/01/19 at 16:30; Stop 11/01/19 at 17:29; Status DC Albuterol Sulfate (Ventolin Neb Soln) 2.5 mg PRN Q6HRS PRN INH SHORTNESS OF BREATH; Start 11/01/19 at 16:30 Alprazolam (Xanax) 0.25 mg PRN TID PRN PO anxiety; Start 11/01/19 at 16:30; Stop 11/01/19 at 17:11; Status DC Amlodipine Besylate (Norvasc) 5 mg DAILY PO Last administered on 11/06/19at 09:30; Start 11/02/19 at 09:00 Cyclosporine (Restasis) 1 drop BID OU Last administered on 11/06/19at 09:29; Start 11/01/19 at 21:00 Fluticasone Propionate (Flonase) 2 spray DAILY NS Last administered on 11/06/19 09:36; Start 11/02/19 at 09:00 Lactobacillus Rhamnosus (Culturelle) 1 cap BID PO Last administered on 11/06/19 09:30; Start 11/01/19 at 21:00 Lidocaine (Lidoderm) 1 patch DAILY TP ; Start 11/02/19 at 09:00; Stop 11/01/19 at 20:34; Status DC Metoprolol Succinate (Toprol Xl) 100 mg HS PO Last administered on 11/05/19 21:58; Start 11/01/19 at 21:00 Nystatin (Nystop) 1 raza BID TP Last administered on 11/06/19 09:36; Start 11/01/19 at 21:00 Pantoprazole Sodium (Protonix) 40 mg DAILYAC PO Last administered on 11/06/19 09:29; Start 11/02/19 at 07:30 Senna/Docusate Sodium (Senna Plus) 1 tab BID PO Last administered on 11/06/19 09:30; Start 11/01/19 at 21:00 Sucralfate (Carafate) 1 gm TIDAC PO Last administered on 11/06/19 11:41; Start 11/01/19 at 17:30 Tramadol HCl (Ultram) 50 mg PRN Q8HRS PRN PO PAIN; Start 11/01/19 at 16:30; Stop 11/01/19 at 19:43; Status DC Insulin Glargine (Lantus Syringe) 30 unit QHS SQ Last administered on 11/05/19 22:14; Start 11/01/19 at 21:00 Ondansetron HCl (Zofran Odt) 8 mg PRN Q8HRS PRN PO NAUSEA/VOMITING Last administered on 11/02/19 07:48; Start 11/01/19 at 17:15 Polyethylene Glycol (miraLAX PACKET) 17 gm PRN DAILY PRN PO CONSTIPATION, 1ST CHOICE Last administered on 11/02/19 12:42; Start 11/01/19 at 17:11 Atorvastatin Calcium (Lipitor) 80 mg QHS PO Last administered on 12/16/19at 21:59; Start 11/01/19 at 21:00 Insulin Human Lispro (HumaLOG) 0-9 UNITS TIDAC SQ Last administered on 11/06/19at 11:46; Start 11/01/19 at 16:30 Dextrose (Dextrose 50%-Water Syringe) 12.5 gm PRN Q15MIN PRN IV SEE COMMENTS; Start 11/01/19 at 16:30 Ondansetron HCl (Zofran) 4 mg PRN Q8HRS PRN IV NAUSEA/VOMITING; Start 11/01/19 at 16:30; Stop 11/02/19 at 16:29; Status DC Alprazolam (Xanax) 0.25 mg PRN TID PRN PO anxiety Last administered on at 10:20; Start 11/01/19 at 17:11 Miscellaneous (Lidoderm Patch Removal) 1 ea QHS MC ; Start 11/01/19 at 21:00; Stop 11/01/19 at 20:34; Status DC Ceftriaxone Sodium (Rocephin) 1 gm QHS IVP Last administered on 11/05/19at 21:59; Start 11/01/19 at 18:45 Tramadol HCl (Ultram) 50 mg PRN Q8HRS PRN PO MILD PAIN 1-3 Last administered on 11/05/19at 22:04; Start 11/01/19 at 19:45 Hydromorphone HCl (Dilaudid) 1 mg PRN Q4HRS PRN IV PAIN Last administered on 11/06/19at 14:42; Start 11/01/19 at 20:15 Lidocaine (Lidoderm) 1 patch QHS TP Last administered on 11/04/19at 21:55; Start 11/01/19 at 21:00 Miscellaneous (Lidoderm Patch Removal) 1 ea DAILY MC Last administered on 11/06/19at 09:00; Start 11/02/19 at 09:00 Albumin Human 500 ml @ 125 mls/hr 1X ONCE IV ; Start 11/02/19 at 02:00; Stop 11/02/19 at 05:59; Status Cancel Acetaminophen (Tylenol) 650 mg 1X PRN PRN PO PRE-TRANSFUSION; Start 11/02/19 at 06:45; Stop 11/03/19 at 14:16; Status DC Diphenhydramine HCl (Benadryl Oral Elixir) 12.5 mg 1X PRN PRN PO PRE- TRANSFUSION; Start 11/02/19 at 06:45; Stop 11/03/19 at 14:16; Status DC Diphenhydramine HCl (Benadryl) 25 mg PRN 1X PRN PO PRE-TRANSFUSION; Start 11/02/19 at 06:45; Stop 11/03/19 at 14:16; Status DC Lactulose (LACTULOSE 300ML for RECTAL) 200 gm Q6HRS AR Last administered on 11/02/19at 18:00; Start 11/02/19 at 18:00; Stop 11/04/19 at 14:44; Status DC Sodium Chloride 1,000 ml @ 100 mls/hr Q10H IV Last administered on 11/06/19at 03:37; Start 11/02/19 at 12:00 Lactulose (Lactulose) 20 gm PRN DAILY PRN PO CONSTIPATION, 2ND CHOICE; Start 11/04/19 at 14:45 Oxycodone HCl (Roxicodone) 5 mg PRN Q6HRS PRN PO MODERATE TO SEVERE PAIN Last administered on 11/06/19at 11:41; Start 11/04/19 at 14:45 Lidocaine HCl (Buffered Lidocaine 1%) 3 ml STK-MED ONCE .ROUTE ; Start 11/05/19 at 08:13; Stop 11/05/19 at 08:13; Status DC Lidocaine HCl (Buffered Lidocaine 1%) 3 ml STK-MED ONCE .ROUTE ; Start 11/05/19 at 08:14; Stop 11/05/19 at 08:14; Status DC Midazolam HCl (Versed) 2 mg STK-MED ONCE .ROUTE ; Start 11/05/19 at 08:40; Stop 11/05/19 at 08:40; Status DC Fentanyl Citrate (Fentanyl 2ml Vial) 100 mcg STK-MED ONCE .ROUTE ; Start 11/05/19 at 08:40; Stop 11/05/19 at 08:41; Status DC Lidocaine HCl (Buffered Lidocaine 1%) 3 ml 1X ONCE IJ Last administered on 11/05/19at 08:45; Start 11/05/19 at 08:45; Stop 11/05/19 at 08:50; Status DC Midazolam HCl (Versed) 2 mg 1X ONCE IV Last administered on 11/05/19at 08:45; Start 11/05/19 at 08:45; Stop 11/05/19 at 08:50; Status DC Fentanyl Citrate (Fentanyl 2ml Vial) 100 mcg 1X ONCE IV Last administered on 11/05/19at 08:45; Start 11/05/19 at 08:45; Stop 11/05/19 at 08:50; Status DC Dexamethasone Sodium Phosphate (Decadron) 4 mg Q6HRS IVP Last administered on 11/06/19at 13:30; Start 11/06/19 at 09:00 Active Scripts Active Enoxaparin Sodium 120 Mg/0.8 Ml Disp.syrin 120 Mg SQ Q12HR 28 Days Dexamethasone 4 Mg Tablet 4 Mg PO BID 14 Days Culturelle (Lactobacillus Rhamnosus Gg) 1 Each Cap.sprink 1 Cap PO BID 30 Days Amlodipine Besylate 5 Mg Tablet 5 Mg PO DAILY 30 Days Cefdinir 300 Mg Capsule 300 Mg PO BID 10 Days Reported Cymbalta (Duloxetine Hcl) 60 Mg Capsule.dr 1 Cap PO BID Lyrica (Pregabalin) 150 Mg Capsule 1 Cap PO BID Novolog (Insulin Aspart) 100 Unit/1 Ml Cartridge 10-45 Unit SQ QIDACHS Levemir (Insulin Detemir) 100 Unit/1 Ml Vial 30 Unit SQ HS Linzess (Linaclotide) 145 Mcg Capsule 145 Mcg PO PRN PRN Crestor (Rosuvastatin Calcium) 40 Mg Tablet 0.5 Tab PO DAILY Polyethylene Glycol 3350 2,500 Gm Powder 17 Gm PO PRN PRN Xanax (Alprazolam) 1 Mg Tablet 1 Tab PO TID Restasis (Cyclosporine) 1 Each Droperette 1 Drop EACHEYE BID Proair Hfa Inhaler (Albuterol Sulfate) 8.5 Gm Hfa.aer.ad 1 Puff INH PRN Q6HRS PRN Tramadol Hcl 50 Mg Tablet 1 Tab PO PRN Q8HRS PRN Ondansetron Hcl 4 Mg Tablet 2 Tab PO PRN Q8HRS PRN Nystatin 15 Gm Powder 1 Raza TP BID Lidocaine PATCH (Lidocaine) 1 Each Adh..patch 1 Each TP DAILY Fluticasone Propionate Nasal Radcliffe (Fluticasone Propionate) 16 Gm Radcliffe.susp 2 Radcliffe NS DAILY Percocet 5-325 Mg Tablet (Oxycodone/Acetaminophen) 1 Each Tablet 1-2 Tab PO Q4-6HRS PRN LAST DOSE AT NEXT DOSE Senna-Docusate Sodium Tablet (Sennosides/Docusate Sodium) 1 Each Tablet 1 Each PO BID LAST DOSE THIS AM NEXT DOSE TONIGHT Robaxin-750 (Methocarbamol) 750 Mg Tablet 1 Tab PO TID LAST DOSE AT 1400 (2PM) MAY HAVE THE NEXT DOSE AT 10 PM Protonix (Pantoprazole Sodium) 40 Mg Tablet.dr 40 Mg PO DAILY LST DOSE THIS AM NEXT DOSE TOMORROW AM Carafate (Sucralfate) 1 Gm Tablet 1 Tab PO TID Meds not given this hospital admission. May resume home medications as approved by Physician. MAY TAKE WHEN AVAILABLE Xarelto (Rivaroxaban) 15 Mg Tablet 15 Mg PO DAILY Meds not given this hospital admission. May resume home medications as approved by Physician. MAY RESUME WHEN AVAILABLE Metoprolol Succinate ( Xl ) (Metoprolol Succinate) 100 Mg Tab.er.24h 100 Mg PO HS LAST DOSE THIS AM NEXT DOSE TOMORROW AM Vitals/I & O Vital Sign - Last 24 Hours 11/05/19 11/05/19 11/05/19 11/05/19 18:38 18:39 19:00 19:08 Temp 98.8 98.8 Pulse 105 Resp 20 19 B/P (MAP) 131/80 (97) Pulse Ox 97 96 O2 Delivery Room Air Room Air Room Air O2 Flow Rate 2.0 11/05/19 11/05/19 11/05/19 11/05/19 20:20 21:58 22:04 22:43 Pulse 105 Resp 20 20 B/P (MAP) 131/80 O2 Delivery Room Air Room Air Nasal Cannula 11/05/19 11/05/19 11/05/19 11/06/19 23:00 23:04 23:04 03:37 Temp 100.3 100.3 Pulse 107 Resp 18 20 20 18 B/P (MAP) 132/88 (103) Pulse Ox 94 O2 Delivery Room Air Room Air Room Air 11/06/19 11/06/19 11/06/19 11/06/19 04:07 07:00 08:00 09:30 Temp 97.8 97.8 Pulse 81 81 Resp 20 19 B/P (MAP) 116/61 (79) 116/61 Pulse Ox 97 O2 Delivery Nasal Cannula Nasal Cannula Room Air O2 Flow Rate 2.0 11/06/19 11/06/19 11/06/19 11/06/19 09:31 10:13 10:52 11:41 Temp 97.7 97.7 Pulse 91 Resp 19 B/P (MAP) 104/52 (69) Pulse Ox 97 O2 Delivery Nasal Cannula Room Air Room Air Room Air O2 Flow Rate 3.0 11/06/19 11/06/19 11/06/19 13:30 14:42 15:00 Temp 97.7 97.7 Pulse 90 Resp 19 B/P (MAP) 110/64 (79) Pulse Ox 91 O2 Delivery Room Air Room Air Room Air Intake and Output 11/05/19 11/05/19 11/06/19 15:00 23:00 07:00 Intake Total 300 ml 300 ml 1000 ml Output Total 850 ml 850 ml 3400 ml Balance -550 ml -550 ml -2400 ml Nutrition Consultation Dietary Evaluation: Recommendations by RD: Increase Calorie Intake, Protein supplementation Comments: REC ADA/cardiac diet, will adjust diet order as needed REC glucerna w/dinner trays and prn Ok to liberalize diet as needed to promote PO intake Expected Outcomes/Goals: PO intake to meet >75% est needs Interpretation of weight loss: >5% in 1 month Malnutrition Findings: Food and Nutrition Intake (Sev: <50% est energy req 5days Weight Status: Morbidly Obese BINH WELCH MD Nov 06, 2019 15:29
--- NOTE | 2019-11-06 18:25 | EEG ---
DATE OF SERVICE: 11/06/2019 EEG NUMBER: [id number]. OBJECTIVE: This is a 49-year-old female patient with history of headache, confusional episode and seizure-like episode and she was found to have a brain tumor. EEG was requested to help rule out seizure. METHODS: Twenty electrodes were applied according to the international 10-20 electrode placement system. EKG monitoring, hyperventilation, intermittent photic stimulation, monopolar and bipolar montages are routinely utilized. The record was obtained on a digital system with video monitoring. FINDINGS: 1. Background: The patient was recorded in the awake and drowsy states. No actual sleep state was recorded. The overall background amplitude is 10-25 microvolts. A posterior dominant rhythm of 8-10 Hz is observed. 2. Abnormalities: No specific epileptiform discharge or electrographic seizure is seen. No focal or diffuse slowing. 3. Activation: Hyperventilation was performed with good efforts and normal response. Intermittent photic stimulation was performed with photic driving. No specific epileptiform discharge or electrographic seizure induced by hyperventilation or intermittent photic stimulation. IMPRESSION: This EEG is a normal study for the awake and drowsy states. No actual sleep state was recorded. No focal, lateralizing, specific epileptiform discharge or electrographic seizure is seen. JOHNATHON OGLESBY MD DR: ROSINA/violetta JOB#: [id number] / [id number] EDU
[2019-11-06 19:00] VITALS: BP 112/64
[2019-11-06] MEDS: ATORVASTATIN CALCIUM 40 MG TABLET. PO SCH (20:50)
[2019-11-06] MEDS: cefTRIAXone IV Push 1 GM VIAL. IVP SCH (20:50)
[2019-11-06] MEDS: LIDOCAINE (700MG/PATCH) PATCH. TP SCH (20:52)
[2019-11-06] MEDS: POLYETHYLENE GLYCOL 3350 17 GM PACKET. PO PRN (21:08)
[2019-11-06] MEDS: METOPROLOL SUCC 24HR ER 100 MG TAB.ER.24H. PO SCH (21:08)
[2019-11-06] MEDS: INSULIN GLARGINE SYRINGE. SQ SCH (21:16)
[2019-11-06 22:44] VITALS: BP 107/67
[2019-11-07] MEDS: DEXAMETHASONE SOD PHOS 4 MG/ML VIAL IVP SCH ×4 (00:02→17:14)
[2019-11-07] MEDS: HYDROmorphone 2 MG/ML VIAL IV PRN ×5 (00:04→17:15)
[2019-11-07] MEDS: oxyCODONE IR 5 MG TABLET PO PRN ×4 (01:19→21:41)
[2019-11-07 03:00] VITALS: BP 123/71
[2019-11-07] MEDS: IV NORMAL SALINE 1000ML BAG 1,000 ML IV SCH ×3 (03:57→21:43)
[2019-11-07] MEDS: ONDANSETRON ODT 4 MG TAB.RAPDIS. PO PRN ×2 (05:20→13:05)
[2019-11-07] MEDS: ALPRAZolam 0.25 MG TABLET PO PRN (05:20)
[2019-11-07 07:00] VITALS: BP 125/70
[2019-11-07] MEDS: PANTOPRAZOLE 40 MG TABLET.DR. PO SCH (07:22)
[2019-11-07] MEDS: SUCRALFATE 1 GM TABLET. PO SCH ×3 (07:22→17:14)
[2019-11-07] MEDS: SENNOSIDES/DOCUSATE 8.6/50MG TABLET. PO SCH ×2 (08:56→21:00)
[2019-11-07] MEDS: LACTOBACILLUS RHAMNOSUS GG 1 CAPSULE. PO SCH ×2 (08:57→21:41)
[2019-11-07] MEDS: amLODIPine BESYLATE 5 MG TABLET PO SCH (08:58)
[2019-11-07] MEDS: cycloSPORINE 0.05% OPHTH DROPERETTE. OU SCH ×2 (08:58→21:00)
[2019-11-07] MEDS: PATCH REMOVAL. MC SCH (09:00)
[2019-11-07] MEDS: NYSTATIN TOPICAL POWDER 15GM BOTTLE. TP SCH ×2 (09:00→21:00)
[2019-11-07] MEDS: FLUTICASONE 50MCG/NASAL SPRAY 16GM BOTTLE. NS SCH (09:00)
[2019-11-07] MEDS: INSULIN LISPRO 300 UNITS/3 ML VIAL. SQ SCH ×4 (09:07→17:25)
--- NOTE | 2019-11-07 09:31 | PDOC ---
PROGRESS NOTES Chief Complaint Chief Complaint FRonto parietal axial mass with increasing vasogenic edema - interval CT 11/05 Difftls include HIgh grade lymphoma, leukemia new dx S.p BOne marrow biopsy 11/05 Abdominal pain - with swelling - large hematoma. Acute blood loss anemia - s/p Transfused 2u 11/02 Elevated WBC - ALL vs Lymphoma Acute encephalopathy -POA, resolved HEadaches DM2 - basal bolus plus regimen of insulin Chronic Back Pain and Sciatica Rt Leg Hx PE - sees hematology, on xarelto POA History of Present Illness History of Present Illness Stable headache Anxious bec of all these going on and possible dx - has xanax 0.25 on file and has received 9 doses I Asked RN to ff up path results of BMA done this tuesday bec NS, heme onc all relying on this to see appropritae tx plan large belly bruise stable HGb 8 after BT has bateman has peripheral line eating ok, sleeping ok PLAN: cont decadron IV EEG CLose neuro checks Ff up bone marrow biopsy - EARLIER ENTRY 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 on 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 20s - 30s maintain bateman Vitals Vitals Vital Signs Date Time Temp Pulse Resp B/P (MAP) Pulse Ox O2 Delivery O2 Flow Rate FiO2 11/07/19 08:58 77 125/70 11/07/19 07:28 20 98 Nasal Cannula 3.0 11/07/19 07:00 97.4 97.4 Physical Exam General: Alert, Cooperative Heart: Regular rate, Normal S1, Normal S2 Lungs: Wheezing Abdomen: Soft, Other (eechymosis improving) Extremities: No clubbing, No cyanosis, No edema, Normal pulses, No tenderness/swelling Skin: Other (Ecchymosis on right abdomen) Labs LABS Laboratory Tests Test 11/06/19 11:32 11/06/19 17:07 11/06/19 21:11 11/07/19 07:58 Glucose (Fingerstick) 204 mg/dL (70-99) 292 mg/dL (70-99) 301 mg/dL (70-99) 343 mg/dL (70-99) Review of Systems Review of Systems headache, anxious, all else 14 pt neg Assessment and Plan Assessmemt and Plan Problems Medical Problems: (1) Abdominal hemorrhage Status: Acute (2) Generalized weakness Status: Acute (3) Lactic acidosis Status: Acute (4) Leukocytosis Status: Acute Comment Review of Relevant I have reviewed the following items mustapha (where applicable) has been applied. Labs Laboratory Tests Test 11/05/19 11:36 11/05/19 12:05 11/05/19 16:40 11/05/19 21:17 Glucose (Fingerstick) 172 mg/dL (70-99) 137 mg/dL (70-99) 179 mg/dL (70-99) White Blood Count 30.0 x10^3/uL (4.0-11.0) Red Blood Count 2.90 x10^6/uL (3.50-5.40) Hemoglobin 8.5 g/dL (12.0-15.5) Hematocrit 26.0 % (36.0-47.0) Mean Corpuscular Volume 90 fL (79-100) Mean Corpuscular Hemoglobin 30 pg (25-35) Mean Corpuscular Hemoglobin Concent 33 g/dL (31-37) Red Cell Distribution Width 15.9 % (11.5-14.5) Platelet Count 274 x10^3/uL (140-400) Neutrophils (%) (Auto) 86 % (31-73) Lymphocytes (%) (Auto) 9 % (24-48) Monocytes (%) (Auto) 3 % (0-9) Eosinophils (%) (Auto) 1 % (0-3) Basophils (%) (Auto) 0 % (0-3) Neutrophils # (Auto) 25.9 x10^3/uL (1.8-7.7) Lymphocytes # (Auto) 2.6 x10^3/uL (1.0-4.8) Monocytes # (Auto) 1.0 x10^3/uL (0.0-1.1) Eosinophils # (Auto) 0.4 x10^3/uL (0.0-0.7) Basophils # (Auto) 0.1 x10^3/uL (0.0-0.2) Test 11/06/19 05:35 11/06/19 07:25 11/06/19 11:32 11/06/19 17:07 White Blood Count 28.9 x10^3/uL (4.0-11.0) Red Blood Count 2.80 x10^6/uL (3.50-5.40) Hemoglobin 8.2 g/dL (12.0-15.5) Hematocrit 25.3 % (36.0-47.0) Mean Corpuscular Volume 91 fL (79-100) Mean Corpuscular Hemoglobin 29 pg (25-35) Mean Corpuscular Hemoglobin Concent 33 g/dL (31-37) Red Cell Distribution Width 15.9 % (11.5-14.5) Platelet Count 305 x10^3/uL (140-400) Neutrophils (%) (Auto) 85 % (31-73) Lymphocytes (%) (Auto) 9 % (24-48) Monocytes (%) (Auto) 4 % (0-9) Eosinophils (%) (Auto) 2 % (0-3) Basophils (%) (Auto) 1 % (0-3) Neutrophils # (Auto) 24.5 x10^3/uL (1.8-7.7) Lymphocytes # (Auto) 2.7 x10^3/uL (1.0-4.8) Monocytes # (Auto) 1.0 x10^3/uL (0.0-1.1) Eosinophils # (Auto) 0.5 x10^3/uL (0.0-0.7) Basophils # (Auto) 0.2 x10^3/uL (0.0-0.2) Glucose (Fingerstick) 148 mg/dL (70-99) 204 mg/dL (70-99) 292 mg/dL (70-99) Test 11/06/19 21:11 11/07/19 07:58 Glucose (Fingerstick) 301 mg/dL (70-99) 343 mg/dL (70-99) Laboratory Tests Test 11/06/19 11:32 11/06/19 17:07 11/06/19 21:11 11/07/19 07:58 Glucose (Fingerstick) 204 mg/dL (70-99) 292 mg/dL (70-99) 301 mg/dL (70-99) 343 mg/dL (70-99) Microbiology 11/01/19 Blood Culture - Final, Complete NO GROWTH AFTER 5 DAYS Medications Current Medications Sodium Chloride 500 ml @ 500 mls/hr 1X ONCE IV Last administered on 11/01/19at 13:00; Start 11/01/19 at 13:00; Stop 11/01/19 at 13:59; Status DC Ondansetron HCl (Zofran) 4 mg 1X ONCE IV Last administered on 11/01/19at 13:26; Start 11/01/19 at 13:00; Stop 11/01/19 at 13:13; Status DC Hydromorphone HCl (Dilaudid) 0.5 mg 1X STAT IVP Last administered on 11/01/19at 13:26; Start 11/01/19 at 12:59; Stop 11/01/19 at 13:13; Status DC Iohexol (Omnipaque 300 Mg/ml) 75 ml 1X ONCE IV Last administered on 11/01/19at 14:08; Start 11/01/19 at 13:45; Stop 11/01/19 at 13:46; Status DC Info (CONTRAST GIVEN -- Rx MONITORING) 1 each PRN DAILY PRN MC SEE COMMENTS; Start 11/01/19 at 14:00; Stop 11/03/19 at 13:59; Status DC Hydromorphone HCl (Dilaudid) 0.5 mg 1X STAT IVP Last administered on 11/01/19at 16:53; Start 11/01/19 at 16:21; Stop 11/01/19 at 16:23; Status DC Sodium Chloride 1,000 ml @ 1,000 mls/hr 1X ONCE IV Last administered on 11/08at 16:30; Start 11/01/19 at 16:30; Stop 11/01/19 at 17:29; Status DC Sodium Chloride 500 ml @ 500 mls/hr 1X ONCE IV Last administered on 11/01/19at 16:30; Start 11/01/19 at 16:30; Stop 11/01/19 at 17:29; Status DC Albuterol Sulfate (Ventolin Neb Soln) 2.5 mg PRN Q6HRS PRN INH SHORTNESS OF BREATH; Start 11/01/19 at 16:30 Alprazolam (Xanax) 0.25 mg PRN TID PRN PO anxiety; Start 11/01/19 at 16:30; Stop 11/01/19 at 17:11; Status DC Amlodipine Besylate (Norvasc) 5 mg DAILY PO Last administered on 11/07/19at 08:58; Start 11/02/19 at 09:00 Cyclosporine (Restasis) 1 drop BID OU Last administered on 11/07/19at 08:58; Start 11/01/19 at 21:00 Fluticasone Propionate (Flonase) 2 spray DAILY NS Last administered on 11/07/19 09:00; Start 11/02/19 at 09:00 Lactobacillus Rhamnosus (Culturelle) 1 cap BID PO Last administered on 11/07/19 08:57; Start 11/01/19 at 21:00 Lidocaine (Lidoderm) 1 patch DAILY TP ; Start 11/02/19 at 09:00; Stop 11/01/19 at 20:34; Status DC Metoprolol Succinate (Toprol Xl) 100 mg HS PO Last administered on 11/06/19 21:08; Start 11/01/19 at 21:00 Nystatin (Nystop) 1 raza BID TP Last administered on 11/07/19 09:00; Start 11/01/19 at 21:00 Pantoprazole Sodium (Protonix) 40 mg DAILYAC PO Last administered on 11/07/19 07:22; Start 11/02/19 at 07:30 Senna/Docusate Sodium (Senna Plus) 1 tab BID PO Last administered on 11/07/19 08:56; Start 11/01/19 at 21:00 Sucralfate (Carafate) 1 gm TIDAC PO Last administered on 11/07/19 07:22; Start 11/01/19 at 17:30 Tramadol HCl (Ultram) 50 mg PRN Q8HRS PRN PO PAIN; Start 11/01/19 at 16:30; Stop 11/01/19 at 19:43; Status DC Insulin Glargine (Lantus Syringe) 30 unit QHS SQ Last administered on 11/06/19 21:16; Start 11/01/19 at 21:00 Ondansetron HCl (Zofran Odt) 8 mg PRN Q8HRS PRN PO NAUSEA/VOMITING Last administered on 11/07/19 05:20; Start 11/01/19 at 17:15 Polyethylene Glycol (miraLAX PACKET) 17 gm PRN DAILY PRN PO CONSTIPATION, 1ST CHOICE Last administered on 11/06/19 21:08; Start 11/01/19 at 17:11 Atorvastatin Calcium (Lipitor) 80 mg QHS PO Last administered on 12/17/19at 20:50; Start 11/01/19 at 21:00 Insulin Human Lispro (HumaLOG) 0-9 UNITS TIDAC SQ Last administered on 11/07/19at 09:07; Start 11/01/19 at 16:30 Dextrose (Dextrose 50%-Water Syringe) 12.5 gm PRN Q15MIN PRN IV SEE COMMENTS; Start 11/01/19 at 16:30 Ondansetron HCl (Zofran) 4 mg PRN Q8HRS PRN IV NAUSEA/VOMITING; Start 11/01/19 at 16:30; Stop 11/02/19 at 16:29; Status DC Alprazolam (Xanax) 0.25 mg PRN TID PRN PO anxiety Last administered on 11/07/19at 05:20; Start 11/01/19 at 17:11 Miscellaneous (Lidoderm Patch Removal) 1 ea QHS MC ; Start 11/01/19 at 21:00; Stop 11/01/19 at 20:34; Status DC Ceftriaxone Sodium (Rocephin) 1 gm QHS IVP Last administered on 11/06/19at 20:50; Start 11/01/19 at 18:45 Tramadol HCl (Ultram) 50 mg PRN Q8HRS PRN PO MILD PAIN 1-3 Last administered on 11/05/19at 22:04; Start 11/01/19 at 19:45 Hydromorphone HCl (Dilaudid) 1 mg PRN Q4HRS PRN IV PAIN Last administered on 11/07/19at 08:58; Start 11/01/19 at 20:15 Lidocaine (Lidoderm) 1 patch QHS TP Last administered on 11/04/19at 21:55; Start 11/01/19 at 21:00 Miscellaneous (Lidoderm Patch Removal) 1 ea DAILY MC Last administered on 11/07/19at 09:00; Start 11/02/19 at 09:00 Albumin Human 500 ml @ 125 mls/hr 1X ONCE IV ; Start 11/02/19 at 02:00; Stop 11/02/19 at 05:59; Status Cancel Acetaminophen (Tylenol) 650 mg 1X PRN PRN PO PRE-TRANSFUSION; Start 11/02/19 at 06:45; Stop 11/03/19 at 14:16; Status DC Diphenhydramine HCl (Benadryl Oral Elixir) 12.5 mg 1X PRN PRN PO PRE- TRANSFUSION; Start 11/02/19 at 06:45; Stop 11/03/19 at 14:16; Status DC Diphenhydramine HCl (Benadryl) 25 mg PRN 1X PRN PO PRE-TRANSFUSION; Start 11/02/19 at 06:45; Stop 11/03/19 at 14:16; Status DC Lactulose (LACTULOSE 300ML for RECTAL) [address] Last administered on 11/02/19at 18:00; Start 11/02/19 at 18:00; Stop 11/04/19 at 14:44; Status DC Sodium Chloride 1,000 ml @ 100 mls/hr Q10H IV Last administered on 11/07/19at 03:57; Start 11/02/19 at 12:00 Lactulose (Lactulose) 20 gm PRN DAILY PRN PO CONSTIPATION, 2ND CHOICE; Start 11/04/19 at 14:45 Oxycodone HCl (Roxicodone) 5 mg PRN Q6HRS PRN PO MODERATE TO SEVERE PAIN Last administered on 11/07/19at 07:28; Start 11/04/19 at 14:45 Lidocaine HCl (Buffered Lidocaine 1%) 3 ml STK-MED ONCE .ROUTE ; Start 11/05/19 at 08:13; Stop 11/05/19 at 08:13; Status DC Lidocaine HCl (Buffered Lidocaine 1%) 3 ml STK-MED ONCE .ROUTE ; Start 11/05/19 at 08:14; Stop 11/05/19 at 08:14; Status DC Midazolam HCl (Versed) 2 mg STK-MED ONCE .ROUTE ; Start 11/05/19 at 08:40; Stop 11/05/19 at 08:40; Status DC Fentanyl Citrate (Fentanyl 2ml Vial) 100 mcg STK-MED ONCE .ROUTE ; Start 11/05/19 at 08:40; Stop 11/05/19 at 08:41; Status DC Lidocaine HCl (Buffered Lidocaine 1%) 3 ml 1X ONCE IJ Last administered on 11/05/19at 08:45; Start 11/05/19 at 08:45; Stop 11/05/19 at 08:50; Status DC Midazolam HCl (Versed) 2 mg 1X ONCE IV Last administered on 11/05/19at 08:45; Start 11/05/19 at 08:45; Stop 11/05/19 at 08:50; Status DC Fentanyl Citrate (Fentanyl 2ml Vial) 100 mcg 1X ONCE IV Last administered on 11/05/19at 08:45; Start 11/05/19 at 08:45; Stop 11/05/19 at 08:50; Status DC Dexamethasone Sodium Phosphate (Decadron) 4 mg Q6HRS IVP Last administered on 11/07/19at 06:38; Start 11/06/19 at 09:00 Active Scripts Active Enoxaparin Sodium 120 Mg/0.8 Ml Disp.syrin 120 Mg SQ Q12HR 28 Days Dexamethasone 4 Mg Tablet 4 Mg PO BID 14 Days Culturelle (Lactobacillus Rhamnosus Gg) 1 Each Cap.sprink 1 Cap PO BID 30 Days Amlodipine Besylate 5 Mg Tablet 5 Mg PO DAILY 30 Days Cefdinir 300 Mg Capsule 300 Mg PO BID 10 Days Reported Cymbalta (Duloxetine Hcl) 60 Mg Capsule.dr 1 Cap PO BID Lyrica (Pregabalin) 150 Mg Capsule 1 Cap PO BID Novolog (Insulin Aspart) 100 Unit/1 Ml Cartridge 10-45 Unit SQ QIDACHS Levemir (Insulin Detemir) 100 Unit/1 Ml Vial 30 Unit SQ HS Linzess (Linaclotide) 145 Mcg Capsule 145 Mcg PO PRN PRN Crestor (Rosuvastatin Calcium) 40 Mg Tablet 0.5 Tab PO DAILY Polyethylene Glycol 3350 2,500 Gm Powder 17 Gm PO PRN PRN Xanax (Alprazolam) 1 Mg Tablet 1 Tab PO TID Restasis (Cyclosporine) 1 Each Droperette 1 Drop EACHEYE BID Proair Hfa Inhaler (Albuterol Sulfate) 8.5 Gm Hfa.aer.ad 1 Puff INH PRN Q6HRS PRN Tramadol Hcl 50 Mg Tablet 1 Tab PO PRN Q8HRS PRN Ondansetron Hcl 4 Mg Tablet 2 Tab PO PRN Q8HRS PRN Nystatin 15 Gm Powder 1 Raza TP BID Lidocaine PATCH (Lidocaine) 1 Each Adh..patch 1 Each TP DAILY Fluticasone Propionate Nasal Wellpinit (Fluticasone Propionate) 16 Gm Wellpinit.susp 2 Wellpinit NS DAILY Percocet 5-325 Mg Tablet (Oxycodone/Acetaminophen) 1 Each Tablet 1-2 Tab PO Q4-6HRS PRN LAST DOSE AT NEXT DOSE Senna-Docusate Sodium Tablet (Sennosides/Docusate Sodium) 1 Each Tablet 1 Each PO BID LAST DOSE THIS AM NEXT DOSE TONIGHT Robaxin-750 (Methocarbamol) 750 Mg Tablet 1 Tab PO TID LAST DOSE AT 1400 (2PM) MAY HAVE THE NEXT DOSE AT 10 PM Protonix (Pantoprazole Sodium) 40 Mg Tablet.dr 40 Mg PO DAILY LST DOSE THIS AM NEXT DOSE TOMORROW AM Carafate (Sucralfate) 1 Gm Tablet 1 Tab PO TID Meds not given this hospital admission. May resume home medications as approved by Physician. MAY TAKE WHEN AVAILABLE Xarelto (Rivaroxaban) 15 Mg Tablet 15 Mg PO DAILY Meds not given this hospital admission. May resume home medications as approved by Physician. MAY RESUME WHEN AVAILABLE Metoprolol Succinate ( Xl ) (Metoprolol Succinate) 100 Mg Tab.er.24h 100 Mg PO HS LAST DOSE THIS AM NEXT DOSE TOMORROW AM Vitals/I & O Vital Sign - Last 24 Hours 11/06/19 11/06/19 11/06/19 11/06/19 09:30 09:31 10:13 10:52 Temp 97.7 97.7 Pulse 81 91 Resp 19 B/P (MAP) 116/61 104/52 (69) Pulse Ox 97 O2 Delivery Nasal Cannula Room Air Room Air O2 Flow Rate 3.0 11/06/19 11/06/19 11/06/19 11/06/19 11:41 13:30 14:42 15:00 Temp 97.7 97.7 Pulse 90 Resp 19 B/P (MAP) 110/64 (79) Pulse Ox 91 O2 Delivery Room Air Room Air Room Air Room Air 11/06/19 11/06/19 11/06/19 11/06/19 17:52 17:58 19:00 19:29 Temp 98.0 98.0 Pulse 100 Resp 18 20 B/P (MAP) 112/64 (80) Pulse Ox 93 91 O2 Delivery Room Air Room Air Room Air Room Air O2 Flow Rate 3.0 12/1711/06/19 11/06/19 11/06/19 19:59 20:00 20:40 21:08 Pulse 100 Resp 18 B/P (MAP) 112/64 Pulse Ox 98 O2 Delivery Room Air Room Air Room Air O2 Flow Rate 3.0 11/06/19 11/07/19 11/07/19 11/07/19 22:44 00:04 00:34 01:19 Temp 98.4 98.4 Pulse 102 Resp 18 18 20 16 B/P (MAP) 107/67 (80) Pulse Ox 94 94 98 94 O2 Delivery Room Air Room Air Room Air Room Air O2 Flow Rate 3.0 3.0 11/07/19 11/07/19 11/07/19 11/07/19 02:19 03:00 04:08 04:38 Temp 98.0 98.0 Pulse 95 Resp 18 18 18 18 B/P (MAP) 123/71 (88) Pulse Ox 98 98 98 98 O2 Delivery Room Air Room Air Room Air Room Air O2 Flow Rate 3.0 3.0 3.0 11/07/19 11/07/19 11/07/19 07:00 07:28 08:58 Temp 97.4 97.4 Pulse 77 77 Resp 17 20 B/P (MAP) 125/70 (88) 125/70 Pulse Ox 97 98 O2 Delivery Room Air Nasal Cannula O2 Flow Rate 3.0 Intake and Output 11/06/19 11/06/19 11/07/19 15:00 23:00 07:00 Intake Total 300 ml 1000 ml Output Total 3450 ml 1250 ml Balance 300 ml -2450 ml -1250 ml Nutrition Consultation Dietary Evaluation: Recommendations by RD: Dietary education by RD, Increase Calorie Intake, Protein supplementation Comments: REC continue ADA/cardiac diet ,glucerna w/dinner Expected Outcomes/Goals: PO intake to meet >75% est needs- met at times, goal ongoing Interpretation of weight loss: >5% in 1 month Malnutrition Findings: Food and Nutrition Intake (Sev: <50% est energy req 5days Weight Status: Morbidly Obese RAFAEL CAT MD Nov 07, 2019 09:31
--- NOTE | 2019-11-07 09:31 | PDOC ---
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 BMBx pending, RUBBER TILE FLOOR LAYER edema and sx improved on steroids Leukocytosis: Bone marrow biopsy pending, low grade temp resolved, on ceftriaxone, prelim no acute leukemia or lymphoma, great, CML? spleen not big, plt's not high, baso's not high, we'll see, bcr/able pending, no need for [facility] transfer at the moment Hematoma: Improving as anticoagulation has stopped (held currently) Anemia: transfuse prn Hb <7, suspect AOCI in addition to superficial abdom bleed w/ hematoma Brain mass: Hematologic? aggressive meningioma? Await bone marrow biopsy final read, back on dex for edema increasing, w/ improved sx, defer further MRI to Neurosurg (apprec their assistance, likely get one pre-op) h/o clotting and RLE swelling: u/s RLE neg, swelling improved, great Thank you kindly and please do not hesitate to call with questions, i will return on tuesday but am avail by phone in the interim. OBJECTIVE Vital Signs Vital Signs Date Time Temp Pulse Resp B/P (MAP) Pulse Ox O2 Delivery O2 Flow Rate FiO2 11/07/19 08:58 77 125/70 11/07/19 07:28 20 98 Nasal Cannula 3.0 11/07/19 07:00 97.4 77 17 125/70 (88) 97 Room Air 97.4 11/07/19 04:38 18 98 Room Air 3.0 11/07/19 04:08 18 98 Room Air 3.0 11/07/19 03:00 98.0 95 18 123/71 (88) 98 Room Air 98.0 11/07/19 02:19 18 98 Room Air 3.0 11/07/19 01:19 16 94 Room Air 3.0 11/07/19 00:34 20 98 Room Air 3.0 11/07/19 00:04 18 94 Room Air 11/06/19 22:44 98.4 102 18 107/67 (80) 94 Room Air 98.4 11/06/19 21:08 100 112/64 11/06/19 20:40 Room Air 11/06/19 20:00 Room Air 11/06/19 19:59 18 98 Room Air 3.0 11/06/19 19:29 20 91 Room Air 3.0 11/06/19 19:00 98.0 100 18 112/64 (80) 93 Room Air 98.0 11/06/19 17:58 Room Air 11/06/19 17:52 Room Air 11/06/19 15:00 97.7 90 19 110/64 (79) 91 Room Air 97.7 11/06/19 14:42 Room Air 11/06/19 13:30 Room Air 11/06/19 11:41 Room Air 11/06/19 10:52 97.7 91 19 104/52 (69) 97 Room Air 97.7 11/06/19 10:13 Room Air 11/06/19 09:31 Nasal Cannula 3.0 11/06/19 09:30 81 116/61 I & O Intake and Output 11/07/19 07:00 Intake Total 1300 ml Output Total 4700 ml Balance -3400 ml Intake Oral 300 ml IV Total 1000 ml Output Urine Total 4700 ml COMMENT Lab Laboratory Tests Test 11/06/19 11:32 11/06/19 17:07 11/06/19 21:11 11/07/19 07:58 Glucose (Fingerstick) 204 mg/dL (70-99) 292 mg/dL (70-99) 301 mg/dL (70-99) 343 mg/dL (70-99) Nutrition Consultation Dietary Evaluation: Recommendations by RD: Dietary education by RD, Increase Calorie Intake, Pro tein supplementation Comments: REC continue ADA/cardiac diet ,glucerna w/dinner Expected Outcomes/Goals: PO intake to meet >75% est needs- met at times, goal ongoing Interpretation of weight loss: >5% in 1 month Malnutrition Findings: Food and Nutrition Intake (Sev: <50% est energy req 5days Weight Status: Morbidly Obese ENEDELIA HUYNH MD Nov 07, 2019 09:31
--- NOTE | 2019-11-07 10:50 | PDOC ---
PROGRESS NOTES Subjective Subjective Stable headache. Right leg moving better. ROS - denies cp, soa, n/v Objective Objective Vital Signs Date Time Temp Pulse Resp B/P (MAP) Pulse Ox O2 Delivery O2 Flow Rate FiO2 11/07/19 08:58 77 125/70 11/07/19 08:00 Nasal Cannula 3.0 11/07/19 07:28 20 98 11/07/19 07:00 97.4 97.4 Intake and Output 11/07/19 07:00 Intake Total 1300 ml Output Total 4700 ml Balance -3400 ml Intake Oral 300 ml IV Total 1000 ml Output Urine Total 4700 ml Physical Exam Physical Exam AAOx4, NAD, PERRL, LLANES, right ankle DF and PF now 4/5, sensation stable LT Assessment Assessment Problems Medical Problems: (1) Abdominal hemorrhage Status: Acute (2) Generalized weakness Status: Acute (3) Lactic acidosis Status: Acute (4) Leukocytosis Status: Acute Plan Plan of Care -final marrow bx result pending - confer with heme -neurologically improved after steroid re-initiation -continue to monitor for changes Comment Review of Relevant I have reviewed the following items mustapha (where applicable) has been applied. Labs Laboratory Tests Test 11/05/19 11:36 11/05/19 12:05 11/05/19 16:40 11/05/19 21:17 Glucose (Fingerstick) 172 mg/dL (70-99) 137 mg/dL (70-99) 179 mg/dL (70-99) White Blood Count 30.0 x10^3/uL (4.0-11.0) Red Blood Count 2.90 x10^6/uL (3.50-5.40) Hemoglobin 8.5 g/dL (12.0-15.5) Hematocrit 26.0 % (36.0-47.0) Mean Corpuscular Volume 90 fL (79-100) Mean Corpuscular Hemoglobin 30 pg (25-35) Mean Corpuscular Hemoglobin Concent 33 g/dL (31-37) Red Cell Distribution Width 15.9 % (11.5-14.5) Platelet Count 274 x10^3/uL (140-400) Neutrophils (%) (Auto) 86 % (31-73) Lymphocytes (%) (Auto) 9 % (24-48) Monocytes (%) (Auto) 3 % (0-9) Eosinophils (%) (Auto) 1 % (0-3) Basophils (%) (Auto) 0 % (0-3) Neutrophils # (Auto) 25.9 x10^3/uL (1.8-7.7) Lymphocytes # (Auto) 2.6 x10^3/uL (1.0-4.8) Monocytes # (Auto) 1.0 x10^3/uL (0.0-1.1) Eosinophils # (Auto) 0.4 x10^3/uL (0.0-0.7) Basophils # (Auto) 0.1 x10^3/uL (0.0-0.2) Test 11/06/19 05:35 11/06/19 07:25 11/06/19 11:32 11/06/19 17:07 White Blood Count 28.9 x10^3/uL (4.0-11.0) Red Blood Count 2.80 x10^6/uL (3.50-5.40) Hemoglobin 8.2 g/dL (12.0-15.5) Hematocrit 25.3 % (36.0-47.0) Mean Corpuscular Volume 91 fL (79-100) Mean Corpuscular Hemoglobin 29 pg (25-35) Mean Corpuscular Hemoglobin Concent 33 g/dL (31-37) Red Cell Distribution Width 15.9 % (11.5-14.5) Platelet Count 305 x10^3/uL (140-400) Neutrophils (%) (Auto) 85 % (31-73) Lymphocytes (%) (Auto) 9 % (24-48) Monocytes (%) (Auto) 4 % (0-9) Eosinophils (%) (Auto) 2 % (0-3) Basophils (%) (Auto) 1 % (0-3) Neutrophils # (Auto) 24.5 x10^3/uL (1.8-7.7) Lymphocytes # (Auto) 2.7 x10^3/uL (1.0-4.8) Monocytes # (Auto) 1.0 x10^3/uL (0.0-1.1) Eosinophils # (Auto) 0.5 x10^3/uL (0.0-0.7) Basophils # (Auto) 0.2 x10^3/uL (0.0-0.2) Glucose (Fingerstick) 148 mg/dL (70-99) 204 mg/dL (70-99) 292 mg/dL (70-99) Test 11/06/19 21:11 11/07/19 07:58 Glucose (Fingerstick) 301 mg/dL (70-99) 343 mg/dL (70-99) Laboratory Tests Test 11/06/19 11:32 11/06/19 17:07 11/06/19 21:11 11/07/19 07:58 Glucose (Fingerstick) 204 mg/dL (70-99) 292 mg/dL (70-99) 301 mg/dL (70-99) 343 mg/dL (70-99) Microbiology 11/01/19 Blood Culture - Final, Complete NO GROWTH AFTER 5 DAYS Medications Current Medications Sodium Chloride 500 ml @ 500 mls/hr 1X ONCE IV Last administered on 11/01/19at 13:00; Start 11/01/19 at 13:00; Stop 11/01/19 at 13:59; Status DC Ondansetron HCl (Zofran) 4 mg 1X ONCE IV Last administered on 11/01/19at 13:26; Start 11/01/19 at 13:00; Stop 11/01/19 at 13:13; Status DC Hydromorphone HCl (Dilaudid) 0.5 mg 1X STAT IVP Last administered on 11/01/19at 13:26; Start 11/01/19 at 12:59; Stop 11/01/19 at 13:13; Status DC Iohexol (Omnipaque 300 Mg/ml) 75 ml 1X ONCE IV Last administered on 11/01/19at 14:08; Start 11/01/19 at 13:45; Stop 11/01/19 at 13:46; Status DC Info (CONTRAST GIVEN -- Rx MONITORING) 1 each PRN DAILY PRN MC SEE COMMENTS; Start 11/01/19 at 14:00; Stop 11/03/19 at 13:59; Status DC Hydromorphone HCl (Dilaudid) 0.5 mg 1X STAT IVP Last administered on 11/01/19at 16:53; Start 11/01/19 at 16:21; Stop 11/01/19 at 16:23; Status DC Sodium Chloride 1,000 ml @ 1,000 mls/hr 1X ONCE IV Last administered on 10/21 01/09at 16:30; Start 11/01/19 at 16:30; Stop 11/01/19 at 17:29; Status DC Sodium Chloride 500 ml @ 500 mls/hr 1X ONCE IV Last administered on 11/01/19 16:30; Start 11/01/19 at 16:30; Stop 11/01/19 at 17:29; Status DC Albuterol Sulfate (Ventolin Neb Soln) 2.5 mg PRN Q6HRS PRN INH SHORTNESS OF BREATH; Start 11/01/19 at 16:30 Alprazolam (Xanax) 0.25 mg PRN TID PRN PO anxiety; Start 11/01/19 at 16:30; Stop 11/01/19 at 17:11; Status DC Amlodipine Besylate (Norvasc) 5 mg DAILY PO Last administered on 11/07/19at 08:58; Start 11/02/19 at 09:00 Cyclosporine (Restasis) 1 drop BID OU Last administered on 11/07/19 08:58; S tart 11/01/19 at 21:00 Fluticasone Propionate (Flonase) 2 spray DAILY NS Last administered on 11/07/19 09:00; Start 11/02/19 at 09:00 Lactobacillus Rhamnosus (Culturelle) 1 cap BID PO Last administered on 11/07/19at 08:57; Start 11/01/19 at 21:00 Lidocaine (Lidoderm) 1 patch DAILY TP ; Start 11/02/19 at 09:00; Stop 11/01/19 at 20:34; Status DC Metoprolol Succinate (Toprol Xl) 100 mg HS PO Last administered on 11/06/19at 21:08; Start 11/01/19 at 21:00 Nystatin (Nystop) 1 raza BID TP Last administered on 11/07/19at 09:00; Start 11/01/19 at 21:00 Pantoprazole Sodium (Protonix) 40 mg DAILYAC PO Last administered on 11/07/19at 07:22; Start 11/02/19 at 07:30 Senna/Docusate Sodium (Senna Plus) 1 tab BID PO Last administered on 11/07/19at 08:56; Start 11/01/19 at 21:00 Sucralfate (Carafate) 1 gm TIDAC PO Last administered on 11/07/19at 07:22; Start 11/01/19 at 17:30 Tramadol HCl (Ultram) 50 mg PRN Q8HRS PRN PO PAIN; Start 11/01/19 at 16:30; Stop 11/01/19 at 19:43; Status DC Insulin Glargine (Lantus Syringe) 30 unit QHS SQ Last administered on 11/06/19at 21:16; Start 11/01/19 at 21:00 Ondansetron HCl (Zofran Odt) 8 mg PRN Q8HRS PRN PO NAUSEA/VOMITING Last administered on 11/07/19at 05:20; Start 11/01/19 at 17:15 Polyethylene Glycol (miraLAX PACKET) 17 gm PRN DAILY PRN PO CONSTIPATION, 1ST CHOICE Last administered on 11/06/19at 21:08; Start 11/01/19 at 17:11 Atorvastatin Calcium (Lipitor) 80 mg QHS PO Last administered on 11/06/19at 20:50; Start 11/01/19 at 21:00 Insulin Human Lispro (HumaLOG) 0-9 UNITS TIDAC SQ Last administered on 11/07/19at 09:07; Start 11/01/19 at 16:30 Dextrose (Dextrose 50%-Water Syringe) 12.5 gm PRN Q15MIN PRN IV SEE COMMENTS; Start 11/01/19 at 16:30 Ondansetron HCl (Zofran) 4 mg PRN Q8HRS PRN IV NAUSEA/VOMITING; Start 11/01/19 at 16:30; Stop 11/02/19 at 16:29; Status DC Alprazolam (Xanax) 0.25 mg PRN TID PRN PO anxiety Last administered on 11/07/19at 05:20; Start 11/01/19 at 17:11 Miscellaneous (Lidoderm Patch Removal) 1 ea QHS MC ; Start 11/01/19 at 21:00; Stop 11/01/19 at 20:34; Status DC Ceftriaxone Sodium (Rocephin) 1 gm QHS IVP Last administered on 11/06/19at 20:50; Start 11/01/19 at 18:45 Tramadol HCl (Ultram) 50 mg PRN Q8HRS PRN PO MILD PAIN 1-3 Last administered on 11/05/19 22:04; Start 11/01/19 at 19:45 Hydromorphone HCl (Dilaudid) 1 mg PRN Q4HRS PRN IV PAIN Last administered on 11/07/19 08:58; Start 11/01/19 at 20:15 Lidocaine (Lidoderm) 1 patch QHS TP Last administered on 11/04/19at 21:55; Start 11/01/19 at 21:00 Miscellaneous (Lidoderm Patch Removal) 1 ea DAILY MC Last administered on 11/07/19 09:00; Start 11/02/19 at 09:00 Albumin Human 500 ml @ 125 mls/hr 1X ONCE IV ; Start 11/02/19 at 02:00; Stop 11/02/19 at 05:59; Status Cancel Acetaminophen (Tylenol) 650 mg 1X PRN PRN PO PRE-TRANSFUSION; Start 11/02/19 at 06:45; Stop 11/03/19 at 14:16; Status DC Diphenhydramine HCl (Benadryl Oral Elixir) 12.5 mg 1X PRN PRN PO PRE- TRANSFUSION; Start 11/02/19 at 06:45; Stop 11/03/19 at 14:16; Status DC Diphenhydramine HCl (Benadryl) 25 mg PRN 1X PRN PO PRE-TRANSFUSION; Start 11/02/19 at 06:45; Stop 11/03/19 at 14:16; Status DC Lactulose (LACTULOSE 300ML for RECTAL) 200 gm Q6HRS NC Last administered on 11/02/19at 18:00; Start 11/02/19 at 18:00; Stop 11/04/19 at 14:44; Status DC Sodium Chloride 1,000 ml @ 100 mls/hr Q10H IV Last administered on 11/07/19at 03:57; Start 11/02/19 at 12:00 Lactulose (Lactulose) 20 gm PRN DAILY PRN PO CONSTIPATION, 2ND CHOICE; Start 11/04/19 at 14:45 Oxycodone HCl (Roxicodone) 5 mg PRN Q6HRS PRN PO MODERATE TO SEVERE PAIN Last administered on 11/07/19at 07:28; Start 11/04/19 at 14:45 Lidocaine HCl (Buffered Lidocaine 1%) 3 ml STK-MED ONCE .ROUTE ; Start 11/05/19 at 08:13; Stop 11/05/19 at 08:13; Status DC Lidocaine HCl (Buffered Lidocaine 1%) 3 ml STK-MED ONCE .ROUTE ; Start 11/05/19 at 08:14; Stop 11/05/19 at 08:14; Status DC Midazolam HCl (Versed) 2 mg STK-MED ONCE .ROUTE ; Start 11/05/19 at 08:40; Stop 11/05/19 at 08:40; Status DC Fentanyl Citrate (Fentanyl 2ml Vial) 100 mcg STK-MED ONCE .ROUTE ; Start 11/05/19 at 08:40; Stop 11/05/19 at 08:41; Status DC Lidocaine HCl (Buffered Lidocaine 1%) 3 ml 1X ONCE IJ Last administered on 11/05/19at 08:45; Start 11/05/19 at 08:45; Stop 11/05/19 at 08:50; Status DC Midazolam HCl (Versed) 2 mg 1X ONCE IV Last administered on 11/05/19at 08:45; Start 11/05/19 at 08:45; Stop 11/05/19 at 08:50; Status DC Fentanyl Citrate (Fentanyl 2ml Vial) 100 mcg 1X ONCE IV Last administered on 11/05/19at 08:45; Start 11/05/19 at 08:45; Stop 11/05/19 at 08:50; Status DC Dexamethasone Sodium Phosphate (Decadron) 4 mg Q6HRS IVP Last administered on 11/07/19at 06:38; Start 11/06/19 at 09:00 Active Scripts Active Enoxaparin Sodium 120 Mg/0.8 Ml Disp.syrin 120 Mg SQ Q12HR 28 Days Dexamethasone 4 Mg Tablet 4 Mg PO BID 14 Days Culturelle (Lactobacillus Rhamnosus Gg) 1 Each Cap.sprink 1 Cap PO BID 30 Days Amlodipine Besylate 5 Mg Tablet 5 Mg PO DAILY 30 Days Cefdinir 300 Mg Capsule 300 Mg PO BID 10 Days Reported Cymbalta (Duloxetine Hcl) 60 Mg Capsule.dr 1 Cap PO BID Lyrica (Pregabalin) 150 Mg Capsule 1 Cap PO BID Novolog (Insulin Aspart) 100 Unit/1 Ml Cartridge 10-45 Unit SQ QIDACHS Levemir (Insulin Detemir) 100 Unit/1 Ml Vial 30 Unit SQ HS Linzess (Linaclotide) 145 Mcg Capsule 145 Mcg PO PRN PRN Crestor (Rosuvastatin Calcium) 40 Mg Tablet 0.5 Tab PO DAILY Polyethylene Glycol 3350 2,500 Gm Powder 17 Gm PO PRN PRN Xanax (Alprazolam) 1 Mg Tablet 1 Tab PO TID Restasis (Cyclosporine) 1 Each Droperette 1 Drop EACHEYE BID Proair Hfa Inhaler (Albuterol Sulfate) 8.5 Gm Hfa.aer.ad 1 Puff INH PRN Q6HRS PRN Tramadol Hcl 50 Mg Tablet 1 Tab PO PRN Q8HRS PRN Ondansetron Hcl 4 Mg Tablet 2 Tab PO PRN Q8HRS PRN Nystatin 15 Gm Powder 1 [place] TP BID Lidocaine PATCH (Lidocaine) 1 Each Adh..patch 1 Each TP DAILY Fluticasone Propionate Nasal [place] (Fluticasone Propionate) 16 Gm [place].susp 2 [place] NS DAILY Percocet 5-325 Mg Tablet (Oxycodone/Acetaminophen) 1 Each Tablet 1-2 Tab PO Q4-6HRS PRN LAST DOSE AT NEXT DOSE Senna-Docusate Sodium Tablet (Sennosides/Docusate Sodium) 1 Each Tablet 1 Each PO BID LAST DOSE THIS AM NEXT DOSE TONIGHT Robaxin-750 (Methocarbamol) 750 Mg Tablet 1 Tab PO TID LAST DOSE AT 1400 (2PM) MAY HAVE THE NEXT DOSE AT 10 PM Protonix (Pantoprazole Sodium) 40 Mg Tablet.dr 40 Mg PO DAILY LST DOSE THIS AM NEXT DOSE TOMORROW AM Carafate (Sucralfate) 1 Gm Tablet 1 Tab PO TID Meds not given this hospital admission. May resume home medications as approved by Physician. MAY TAKE WHEN AVAILABLE Xarelto (Rivaroxaban) 15 Mg Tablet 15 Mg PO DAILY Meds not given this hospital admission. May resume home medications as approved by Physician. MAY RESUME WHEN AVAILABLE Metoprolol Succinate ( Xl ) (Metoprolol Succinate) 100 Mg Tab.er.24h 100 Mg PO HS LAST DOSE THIS AM NEXT DOSE TOMORROW AM Vitals/I & O Vital Sign - Last 24 Hours 11/06/19 11/06/19 11/06/19 11/06/19 10:52 11:41 13:30 14:42 Temp 97.7 97.7 Pulse 91 Resp 19 B/P (MAP) 104/52 (69) Pulse Ox 97 O2 Delivery Room Air Room Air Room Air Room Air 11/06/19 11/06/19 11/06/19 11/06/19 15:00 17:52 17:58 19:00 Temp 97.7 98.0 97.7 98.0 Pulse 90 100 Resp 19 18 B/P (MAP) 110/64 (79) 112/64 (80) Pulse Ox 91 93 O2 Delivery Room Air Room Air Room Air Room Air 11/06/19 11/06/19 11/06/19 11/06/19 19:29 19:59 20:00 20:40 Resp 20 18 Pulse Ox 91 98 O2 Delivery Room Air Room Air Room Air Room Air O2 Flow Rate 3.0 3.0 11/06/19 11/06/19 11/07/19 11/07/19 21:08 22:44 00:04 00:34 Temp 98.4 98.4 Pulse 100 102 Resp 18 18 20 B/P (MAP) 112/64 107/67 (80) Pulse Ox 94 94 98 O2 Delivery Room Air Room Air Room Air O2 Flow Rate 3.0 11/07/19 11/07/19 11/07/19 11/07/19 01:19 02:19 03:00 04:08 Temp 98.0 98.0 Pulse 95 Resp 16 18 18 18 B/P (MAP) 123/71 (88) Pulse Ox 94 98 98 98 O2 Delivery Room Air Room Air Room Air Room Air O2 Flow Rate 3.0 3.0 3.0 11/07/19 11/07/19 11/07/19 11/07/19 04:38 07:00 07:28 08:00 Temp 97.4 97.4 Pulse 77 Resp 18 17 20 B/P (MAP) 125/70 (88) Pulse Ox 98 97 98 O2 Delivery Room Air Room Air Nasal Cannula Nasal Cannula O2 Flow Rate 3.0 3.0 3.0 11/07/19 08:58 Pulse 77 B/P (MAP) 125/70 Intake and Output 11/06/19 11/06/19 11/07/19 15:00 23:00 07:00 Intake Total 300 ml 1000 ml Output Total 3450 ml 1250 ml Balance 300 ml -2450 ml -1250 ml Nutrition Consultation Dietary Evaluation: Recommendations by RD: Dietary education by RD, Increase Calorie Intake, Protein supplementation Comments: REC continue ADA/cardiac diet ,glucerna w/dinner Expected Outcomes/Goals: PO intake to meet >75% est needs- met at times, goal ongoing Interpretation of weight loss: >5% in 1 month Malnutrition Findings: Food and Nutrition Intake (Sev: <50% est energy req 5days Weight Status: Morbidly Obese BINH WELCH MD Nov 07, 2019 10:50
[2019-11-07 11:00] VITALS: BP 99/64
[2019-11-07] MEDS: POLYETHYLENE GLYCOL 3350 17 GM PACKET. PO PRN (12:09)
--- NOTE | 2019-11-07 13:36 | NUR ---
SW following. Discussed with RN, bone marrow biopsy results pending. PT/OT ordered. SW will continue to follow.
[2019-11-07 15:00] VITALS: BP 105/60
--- NOTE | 2019-11-07 17:57 | PDOC ---
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 Vasogenic edema with 4 mm left to right midline shift Headaches. Cognitive impairment. Staring spells. HTN. HLD. DM. KRISS. ADHD. PE Hx. Leukocytosis. Obesity. RECOMMENDATIONS/PLAN: Pain control for headache. Decadron 4 mg IV q6h. Continue Lipitor HS. Treat medical diseases. Consulted Neurosurgery and Oncology.. Weight reduction. OT/PT. EEG on 11/06/19; normal. History of Present Illness This is a 49-year-old female patient with history of CAD, Diabetes, High Cholesterol, Hypertension, Kidney Stones, Ovarian Cyst, Pneumonia, pulmonary embolism, tachycardia was brought to the ER of [facility] with complaints of headaches and presyncope. She stated that she has been having chronic headaches in her left side frontal and temporal head for about 2 years and right LE weakness that gradually became worse and she was unable to walk. She was revealed a brain tumor in 09/2019, but her headaches and right LE weakness progressed. She has nausea but no vomiting. 11/07/19: still has some headaches. Past Medical History Cardiovascular: HTN, Hyperlipidemia, Other (tachycardia) Pulmonary: Asthma, Pulmonary embolus ( DVT, on [place]), Other (sleep apnea) CENTRAL NERVOUS SYSTEM: Periperal neuropathy, Other (right L5 radiculopathy) GI: Peptic Ulcer disease, Other (pancreatitis, hiatal hernia) Psych: Anxiety, Depression, Other (ADHD) Musculoskeletal: low back pain Renal/: Other (nephrolithiasis) Endocrine: Diabetes Past Surgical History Appendectomy, Cholecystectomy, , Hysterectomy (fbrioids), Other (lumbar laminectomy) Family History Cancer, CAD Social History ex smoker, no alcohol, disabled Allergies Coded Allergies: azithromycin (Verified Allergy, Intermediate, 10/12/19) codeine (Verified Allergy, Intermediate, 05/06/17) morphine (Verified Allergy, Intermediate, 05/06/17) ROS Negative for fever, chills, weight loss, shortness of breath, chest pain, indigestion, hematochezia, melena, and dysuria. Full 14-point review of systems is negative. MEDICATIONS: Refer to [facility] PHYSICAL EXAMINATION: General appearance in subacute distress. HEENT: Normocephalic and nontraumatic. Eyes, nose, ears, and throat are unremarkable. Hearing decrease. Neck is supple. No lymphadenopathy. No Crepitus. Cardiovascular: S1, S2, regular rate and rhythm. Pulmonary: Clear to auscultation bilaterally. Abdomen: Bowel sounds are positive. Abdomen is soft, nontender, and nondistended. Extremities: No rash, lesions, or edema. No restriction of range of motion NEUROLOGICAL EXAMINATION: Alert. Oriented to time, place and person. PERRL. EOMI. CN: no focal findings. Muscle tone: within normal. Muscle strength: 4 right UE, 1-2 right LE, 4+ left side. DTR: 1 Plantar reflex: Flexor response bilaterally Gait: not able to walk. Sensory exam: seemed mildly decreased to light touch in right LE below the knee. No cerebellar signs elicited. F-T-N test fine. Objective Objective Vital Signs Date Time Temp Pulse Resp B/P (MAP) Pulse Ox O2 Delivery O2 Flow Rate FiO2 11/07/19 15:00 98.1 83 17 105/60 (75) 93 Nasal Cannula 2.0 98.1 Intake and Output 11/07/19 07:00 Intake Total 1300 ml Output Total 4700 ml Balance -3400 ml Intake Oral 300 ml IV Total 1000 ml Output Urine Total 4700 ml Vitals Signs Vitals VS - Last 72 Hours, by Label Date Time Temp Pulse Resp B/P (MAP) Pulse Ox O2 Delivery O2 Flow Rate FiO2 11/07/19 15:00 98.1 83 17 105/60 (75) 93 Nasal Cannula 2.0 98.1 11/07/19 13:05 98 Nasal Cannula 3.0 11/07/19 12:09 98 Nasal Cannula 3.0 11/07/19 11:00 97.7 78 17 99/64 (76) 95 Room Air 97.7 11/07/19 08:58 77 125/70 11/07/19 08:00 Nasal Cannula 3.0 11/07/19 07:28 20 98 Nasal Cannula 3.0 11/07/19 07:00 97.4 77 17 125/70 (88) 97 Room Air 97.4 11/07/19 04:38 18 98 Room Air 3.0 11/07/19 04:08 18 98 Room Air 3.0 11/07/19 03:00 98.0 95 18 123/71 (88) 98 Room Air 98.0 11/07/19 02:19 18 98 Room Air 3.0 11/07/19 01:19 16 94 Room Air 3.0 11/07/19 00:34 20 98 Room Air 3.0 11/07/19 00:04 18 94 Room Air 11/06/19 22:44 98.4 102 18 107/67 (80) 94 Room Air 98.4 11/06/19 21:08 100 112/64 11/06/19 20:40 Room Air 11/06/19 20:00 Room Air 11/06/19 19:59 18 98 Room Air 3.0 11/06/19 19:29 20 91 Room Air 3.0 11/06/19 19:00 98.0 100 18 112/64 (80) 93 Room Air 98.0 11/06/19 17:58 Room Air 11/06/19 17:52 Room Air 11/06/19 15:00 97.7 90 19 110/64 (79) 91 Room Air 97.7 11/06/19 14:42 Room Air 11/06/19 13:30 Room Air 11/06/19 11:41 Room Air 11/06/19 10:52 97.7 91 19 104/52 (69) 97 Room Air 97.7 11/06/19 10:13 Room Air 11/06/19 09:31 Nasal Cannula 3.0 11/06/19 09:30 81 116/61 11/06/19 08:00 Room Air 11/06/19 07:00 97.8 81 19 116/61 (79) 97 Nasal Cannula 2.0 97.8 Laboratory Laboratory Laboratory Tests Test 11/06/19 21:11 11/07/19 07:58 11/07/19 11:40 11/07/19 16:38 Glucose (Fingerstick) 301 mg/dL (70-99) 343 mg/dL (70-99) 426 mg/dL (70-99) 382 mg/dL (70-99) Microbiology 11/01/19 Blood Culture - Final, Complete NO GROWTH AFTER 5 DAYS Medication Medications Current Medications Insulin Glargine (Lantus Syringe) 40 unit QHS SQ ; Start 11/07/19 at 21:00 Insulin Human Lispro (HumaLOG) 0-9 UNITS TIDWMEALS SQ Last administered on 11/07/19at 17:25; Start 11/07/19 at 17:00 Insulin Human Lispro (HumaLOG) 10 units TIDAC SQ Last administered on 11/07at 17:23; Start 11/07/19 at 16:30 Comment Review of Relevant I have reviewed the following items mustapha (where applicable) has been applied. JOHNATHON OGLESBY MD Nov 07, 2019 17:57
[2019-11-07 19:00] VITALS: BP 113/60
[2019-11-07] MEDS: LIDOCAINE (700MG/PATCH) PATCH. TP SCH (21:00)
[2019-11-07] MEDS: cefTRIAXone IV Push 1 GM VIAL. IVP SCH (21:40)
[2019-11-07] MEDS: ATORVASTATIN CALCIUM 40 MG TABLET. PO SCH (21:41)
[2019-11-07] MEDS: METOPROLOL SUCC 24HR ER 100 MG TAB.ER.24H. PO SCH (21:41)
[2019-11-07] MEDS: INSULIN GLARGINE SYRINGE. SQ SCH (21:46)
[2019-11-07 23:00] VITALS: BP 117/70
[2019-11-08] MEDS: DEXAMETHASONE SOD PHOS 4 MG/ML VIAL IVP SCH ×4 (00:37→18:50)
[2019-11-08] MEDS: HYDROmorphone 2 MG/ML VIAL IV PRN ×5 (00:38→21:35)
[2019-11-08 07:00] VITALS: BP 101/64
[2019-11-08] MEDS: NYSTATIN TOPICAL POWDER 15GM BOTTLE. TP SCH ×2 (09:00→21:00)
[2019-11-08] MEDS: PATCH REMOVAL. MC SCH (09:00)
[2019-11-08] MEDS: FLUTICASONE 50MCG/NASAL SPRAY 16GM BOTTLE. NS SCH (09:32)
[2019-11-08] MEDS: SUCRALFATE 1 GM TABLET. PO SCH ×3 (09:32→16:53)
[2019-11-08] MEDS: PANTOPRAZOLE 40 MG TABLET.DR. PO SCH (09:32)
[2019-11-08] MEDS: LACTOBACILLUS RHAMNOSUS GG 1 CAPSULE. PO SCH ×2 (09:32→21:32)
[2019-11-08] MEDS: SENNOSIDES/DOCUSATE 8.6/50MG TABLET. PO SCH ×2 (09:32→21:32)
[2019-11-08] MEDS: cycloSPORINE 0.05% OPHTH DROPERETTE. OU SCH ×2 (09:32→21:32)
--- NOTE | 2019-11-08 09:36 | NUR ---
Lidocaine patch not in place at this time. This RN nonadministered Lidocaine patch removal for this reason. Will continue to monitor pt.
[2019-11-08] MEDS: INSULIN LISPRO 300 UNITS/3 ML VIAL. SQ SCH ×6 (09:40→17:36)
[2019-11-08] MEDS: POLYETHYLENE GLYCOL 3350 17 GM PACKET. PO PRN (10:00)
[2019-11-08 11:00] VITALS: BP_SYST 101; BP_SYST 111; BP_DIAS 64; BP_DIAS 73
--- NOTE | 2019-11-08 11:03 | PDOC ---
PROGRESS NOTES Chief Complaint Chief Complaint impression FRonto parietal axial mass with increasing vasogenic edema - interval CT 11/05 Difftls include HIgh grade lymphoma, leukemia new dx S.p BOne marrow biopsy 11/05 Abdominal pain - with swelling - large hematoma. Acute blood loss anemia - s/p Transfused 2u 11/02 Elevated WBC - ALL vs Lymphoma Acute encephalopathy -POA, resolved HEadaches DM2 - basal bolus plus regimen of insulin Chronic Back Pain and Sciatica Rt Leg Hx PE - sees hematology, on xarelto POA Large complex collection in the right subcutaneous flank, compatible with a massive hematoma including a component of active hemorrhage. plan Decadron 4 mg IV q6h. Continue Lipitor HS. Treat medical diseases. Consulted Neurosurgery consult Oncology.. bone marrow bx 11/02 39 min pt exam, chart revieqw, > 50% of time spent with exam, chart review, pt care coordination History of Present Illness History of Present Illness Stable headache Anxious bec of all these going on and possible dx - has xanax 0.25 on file and has received 9 doses I Asked RN to ff up path results of BMA done this tuesday bec NS, heme onc following large belly bruise stable HGb 8 after BT has bateman peripheral line eating ok, sleeping ok PLAN: cont decadron IV EEG CLose neuro checks Ff up bone marrow biopsy - EARLIER ENTRY was on blood thinner [employer] WBC 20s - 30s maintain bateman Vitals Vitals Vital Signs Date Time Temp Pulse Resp B/P (MAP) Pulse Ox O2 Delivery O2 Flow Rate FiO2 11/08/19 07:00 97.6 66 18 101/64 (76) 92 Room Air 97.6 11/08/19 05:06 2.0 Physical Exam General: Alert, Cooperative Heart: Regular rate, Normal S1, Normal S2 Lungs: Wheezing Abdomen: Soft, Other (eechymosis improving) Extremities: No clubbing, No cyanosis, No edema, Normal pulses, No tenderness/swelling Skin: Other (Ecchymosis on right abdomen) Labs LABS Indication: Abdominal bruising, pain, right lower quadrant pain. Exposure: One or more of the following individualized dose reduction techniques were utilized for this examination: 1. Automated exposure control 2. Adjustment of the mA and/or kV according to patient size 3. Use of iterative reconstruction technique. Technique: Intravenous contrast was given. No oral contrast per request. Comparison: None FINDINGS: Linear atelectasis in the lung bases. Liver and spleen appear unremarkable. Pancreas appears unremarkable. No evidence of adrenal mass. Kidneys demonstrate symmetric enhancement. Low-density lesion lower pole left kidney measures 27 mm and 20 Hounsfield units, most likely a cyst. No hydronephrosis. Gallbladder surgically absent. Aorta is nonaneurysmal. Incidentally noted retroaortic left renal vein. No significant lymph node enlargement. No significant distention of distal esophagus and stomach. No significant small bowel distention. No evidence of acute colitis. Moderate stool throughout colon. The appendix is not clearly visualized. No evidence of pneumoperitoneum or ascites. Urinary bladder appears unremarkable. No evidence of pelvic mass. Large complex collection in the subcutaneous tissues of the right abdomen. Density characteristics suggest hemorrhagic content. The bulk of the primary collection measures about 23 cm AP by 8 cm wide by 15 cm height. There is some linear hyperdensity within the collection compatible with active extravasation of blood. Extensive stranding within the surrounding fat. There are numerous smaller areas of subcutaneous nodularity may represent additional small hematomas. Mass effect from the collection indents the abdominal wall slightly. Degenerative spondylosis. Mild anterior wedging of the T12 vertebrae. No acute fracture or aggressive bone destruction IMPRESSION: 1. Large complex collection in the right subcutaneous flank, compatible with a massive hematoma including a component of active hemorrhage. 2. Left renal lesion most compatible with a cyst. FOR INTERNAL CODING PURPOSES Critical result: Findings discussed with Dr. Yossi Boateng in the emergency room by telephone at 11/01/2019 2:50 PM. Laboratory Tests Test 11/07/19 11:40 11/07/19 16:38 11/07/19 21:19 11/08/19 07:58 Glucose (Fingerstick) 426 mg/dL (70-99) 382 mg/dL (70-99) 359 mg/dL (70-99) 348 mg/dL (70-99) Assessment and Plan Assessmemt and Plan Problems Medical Problems: (1) Abdominal hemorrhage Status: Acute (2) Generalized weakness Status: Acute (3) Lactic acidosis Status: Acute (4) Leukocytosis Status: Acute Comment Review of Relevant I have reviewed the following items mustapha (where applicable) has been applied. Labs Laboratory Tests Test 11/06/19 11:32 11/06/19 17:07 11/06/19 21:11 11/07/19 07:58 Glucose (Fingerstick) 204 mg/dL (70-99) 292 mg/dL (70-99) 301 mg/dL (70-99) 343 mg/dL (70-99) Test 11/07/19 11:40 11/07/19 16:38 11/07/19 21:19 11/08/19 07:58 Glucose (Fingerstick) 426 mg/dL (70-99) 382 mg/dL (70-99) 359 mg/dL (70-99) 348 mg/dL (70-99) Laboratory Tests Test 11/07/19 11:40 11/07/19 16:38 11/07/19 21:19 11/08/19 07:58 Glucose (Fingerstick) 426 mg/dL (70-99) 382 mg/dL (70-99) 359 mg/dL (70-99) 348 mg/dL (70-99) Microbiology 11/01/19 Blood Culture - Final, Complete NO GROWTH AFTER 5 DAYS Medications Current Medications Sodium Chloride 500 ml @ 500 mls/hr 1X ONCE IV Last administered on 11/01/19at 13:00; Start 11/01/19 at 13:00; Stop 11/01/19 at 13:59; Status DC Ondansetron HCl (Zofran) 4 mg 1X ONCE IV Last administered on 11/01/19at 13:26; Start 11/01/19 at 13:00; Stop 11/01/19 at 13:13; Status DC Hydromorphone HCl (Dilaudid) 0.5 mg 1X STAT IVP Last administered on 11/01/19at 13:26; Start 11/01/19 at 12:59; Stop 11/01/19 at 13:13; Status DC Iohexol (Omnipaque 300 Mg/ml) 75 ml 1X ONCE IV Last administered on 11/01/19at 14:08; Start 11/01/19 at 13:45; Stop 11/01/19 at 13:46; Status DC Info (CONTRAST GIVEN -- Rx MONITORING) 1 each PRN DAILY PRN MC SEE COMMENTS; Start 11/01/19 at 14:00; Stop 11/03/19 at 13:59; Status DC Hydromorphone HCl (Dilaudid) 0.5 mg 1X STAT IVP Last administered on 11/01/19at 16:53; Start 11/01/19 at 16:21; Stop 11/01/19 at 16:23; Status DC Sodium Chloride 1,000 ml @ 1,000 mls/hr 1X ONCE IV Last administered on 1 01/02/19 16:30; Start 11/01/19 at 16:30; Stop 11/01/19 at 17:29; Status DC Sodium Chloride 500 ml @ 500 mls/hr 1X ONCE IV Last administered on 11/01/19 16:30; Start 11/01/19 at 16:30; Stop 11/01/19 at 17:29; Status DC Albuterol Sulfate (Ventolin Neb Soln) 2.5 mg PRN Q6HRS PRN INH SHORTNESS OF BREATH; Start 11/01/19 at 16:30 Alprazolam (Xanax) 0.25 mg PRN TID PRN PO anxiety; Start 11/01/19 at 16:30; Stop 11/01/19 at 17:11; Status DC Amlodipine Besylate (Norvasc) 5 mg DAILY PO Last administered on 11/07/19 08:58; Start 11/02/19 at 09:00 Cyclosporine (Restasis) 1 drop BID OU Last administered on 11/08/19 09:32; Start 11/01/19 at 21:00 Fluticasone Propionate (Flonase) 2 spray DAILY NS Last administered on 11/08/19 09:32; Start 11/02/19 at 09:00 Lactobacillus Rhamnosus (Culturelle) 1 cap BID PO Last administered on 11/08/19at 09:32; Start 11/01/19 at 21:00 Lidocaine (Lidoderm) 1 patch DAILY TP ; Start 11/02/19 at 09:00; Stop 11/01/19 at 20:34; Status DC Metoprolol Succinate (Toprol Xl) 100 mg HS PO Last administered on 11/07/19 21:41; Start 11/01/19 at 21:00 Nystatin (Nystop) 1 raza BID TP Last administered on 11/07/19 09:00; Start 11/01/19 at 21:00 Pantoprazole Sodium (Protonix) 40 mg DAILYAC PO Last administered on 11/08/19 09:32; Start 11/02/19 at 07:30 Senna/Docusate Sodium (Senna Plus) 1 tab BID PO Last administered on 11/08/19 09:32; Start 11/01/19 at 21:00 Sucralfate (Carafate) 1 gm TIDAC PO Last administered on 11/08/19 09:32; Start 11/01/19 at 17:30 Tramadol HCl (Ultram) 50 mg PRN Q8HRS PRN PO PAIN; Start 11/01/19 at 16:30; Stop 11/01/19 at 19:43; Status DC Insulin Glargine (Lantus Syringe) 30 unit QHS SQ Last administered on 11/06/19 21:16; Start 11/01/19 at 21:00; Stop 11/07/19 at 15:56; Status DC Ondansetron HCl (Zofran Odt) 8 mg PRN Q8HRS PRN PO NAUSEA/VOMITING Last administered on 11/07/19at 13:05; Start 11/01/19 at 17:15 Polyethylene Glycol (miraLAX PACKET) 17 gm PRN DAILY PRN PO CONSTIPATION, 1ST CHOICE Last administered on 11/08/19 10:00; Start 11/01/19 at 17:11 Atorvastatin Calcium (Lipitor) 80 mg QHS PO Last administered on 11/07/19at 21:41; Start 11/01/19 at 21:00 Insulin Human Lispro (HumaLOG) 0-9 UNITS TIDAC SQ Last administered on 11/07/19at 12:20; Start 11/01/19 at 16:30; Stop 11/07/19 at 15:56; Status DC Dextrose (Dextrose 50%-Water Syringe) 12.5 gm PRN Q15MIN PRN IV SEE COMMENTS; Start 11/01/19 at 16:30 Ondansetron HCl (Zofran) 4 mg PRN Q8HRS PRN IV NAUSEA/VOMITING; Start 11/01/19 at 16:30; Stop 11/02/19 at 16:29; Status DC Alprazolam (Xanax) 0.25 mg PRN TID PRN PO anxiety Last administered on 11/07/19 05:20; Start 11/01/19 at 17:11 Miscellaneous (Lidoderm Patch Removal) 1 ea QHS MC ; Start 11/01/19 at 21:00; Stop 11/01/19 at 20:34; Status DC Ceftriaxone Sodium (Rocephin) 1 gm QHS IVP Last administered on 11/07/19at 21:40; Start 11/01/19 at 18:45 Tramadol HCl (Ultram) 50 mg PRN Q8HRS PRN PO MILD PAIN 1-3 Last administered on 11/05/19at 22:04; Start 11/01/19 at 19:45 Hydromorphone HCl (Dilaudid) 1 mg PRN Q4HRS PRN IV PAIN Last administered on 11/08/19at 10:01; Start 11/01/19 at 20:15 Lidocaine (Lidoderm) 1 patch QHS TP Last administered on 11/04/19at 21:55; Start 11/01/19 at 21:00 Miscellaneous (Lidoderm Patch Removal) 1 ea DAILY MC Last administered on 11/07/19at 09:00; Start 11/02/19 at 09:00 Albumin Human 500 ml @ 125 mls/hr 1X ONCE IV ; Start 11/02/19 at 02:00; Stop 11/02/19 at 05:59; Status Cancel Acetaminophen (Tylenol) 650 mg 1X PRN PRN PO PRE-TRANSFUSION; Start 11/02/19 at 06:45; Stop 11/03/19 at 14:16; Status DC Diphenhydramine HCl (Benadryl Oral Elixir) 12.5 mg 1X PRN PRN PO PRE- TRANSFUSION; Start 11/02/19 at 06:45; Stop 11/03/19 at 14:16; Status DC Diphenhydramine HCl (Benadryl) 25 mg PRN 1X PRN PO PRE-TRANSFUSION; Start 11/02/19 at 06:45; Stop 11/03/19 at 14:16; Status DC Lactulose (LACTULOSE 300ML for RECTAL) 200 gm Q6HRS [place] Last administered on at 18:00; Start 11/02/19 at 18:00; Stop 11/04/19 at 14:44; Status DC Sodium Chloride 1,000 ml @ 100 mls/hr Q10H IV Last administered on 11/07/19at 21:43; Start 11/02/19 at 12:00 Lactulose (Lactulose) 20 gm PRN DAILY PRN PO CONSTIPATION, 2ND CHOICE; Start 11/04/19 at 14:45 Oxycodone HCl (Roxicodone) 5 mg PRN Q6HRS PRN PO MODERATE TO SEVERE PAIN Last administered on 11/07/19at 21:41; Start 11/04/19 at 14:45 Lidocaine HCl (Buffered Lidocaine 1%) 3 ml STK-MED ONCE .ROUTE ; Start 11/05/19 at 08:13; Stop 11/05/19 at 08:13; Status DC Lidocaine HCl (Buffered Lidocaine 1%) 3 ml STK-MED ONCE .ROUTE ; Start 11/05/19 at 08:14; Stop 11/05/19 at 08:14; Status DC Midazolam HCl (Versed) 2 mg STK-MED ONCE .ROUTE ; Start 11/05/19 at 08:40; Stop 11/05/19 at 08:40; Status DC Fentanyl Citrate (Fentanyl 2ml Vial) 100 mcg STK-MED ONCE .ROUTE ; Start 11/05/19 at 08:40; Stop 11/05/19 at 08:41; Status DC Lidocaine HCl (Buffered Lidocaine 1%) 3 ml 1X ONCE IJ Last administered on 11/05/19at 08:45; Start 11/05/19 at 08:45; Stop 11/05/19 at 08:50; Status DC Midazolam HCl (Versed) 2 mg 1X ONCE IV Last administered on 11/05/19at 08:45; Start 11/05/19 at 08:45; Stop 11/05/19 at 08:50; Status DC Fentanyl Citrate (Fentanyl 2ml Vial) 100 mcg 1X ONCE IV Last administered on 11/05/19at 08:45; Start 11/05/19 at 08:45; Stop 11/05/19 at 08:50; Status DC Dexamethasone Sodium Phosphate (Decadron) 4 mg Q6HRS IVP Last administered on 11/08/19at 04:39; Start 11/06/19 at 09:00 Insulin Glargine (Lantus Syringe) 40 unit QHS SQ Last administered on 11/07/19at 21:46; Start 11/07/19 at 21:00 Insulin Human Lispro (HumaLOG) 10 units TIDAC SQ Last administered on 11/08/19at 09:40; Start 11/07/19 at 16:30 Insulin Human Lispro (HumaLOG) 0-9 UNITS TIDWMEALS SQ Last administered on 11/08/19at 09:41; Start 11/07/19 at 17:00 Active Scripts Active Enoxaparin Sodium 120 Mg/0.8 Ml Disp.syrin 120 Mg SQ Q12HR 28 Days Dexamethasone 4 Mg Tablet 4 Mg PO BID 14 Days Culturelle (Lactobacillus Rhamnosus Gg) 1 Each Cap.sprink 1 Cap PO BID 30 Days Amlodipine Besylate 5 Mg Tablet 5 Mg PO DAILY 30 Days Cefdinir 300 Mg Capsule 300 Mg PO BID 10 Days Reported Cymbalta (Duloxetine Hcl) 60 Mg Capsule.dr 1 Cap PO BID Lyrica (Pregabalin) 150 Mg Capsule 1 Cap PO BID Novolog (Insulin Aspart) 100 Unit/1 Ml Cartridge 10-45 Unit SQ QIDACHS Levemir (Insulin Detemir) 100 Unit/1 Ml Vial 30 Unit SQ HS Linzess (Linaclotide) 145 Mcg Capsule 145 Mcg PO PRN PRN Crestor (Rosuvastatin Calcium) 40 Mg Tablet 0.5 Tab PO DAILY Polyethylene Glycol 3350 2,500 Gm Powder 17 Gm PO PRN PRN Xanax (Alprazolam) 1 Mg Tablet 1 Tab PO TID Restasis (Cyclosporine) 1 Each Droperette 1 Drop EACHEYE BID Proair Hfa Inhaler (Albuterol Sulfate) 8.5 Gm Hfa.aer.ad 1 Puff INH PRN Q6HRS PRN Tramadol Hcl 50 Mg Tablet 1 Tab PO PRN Q8HRS PRN Ondansetron Hcl 4 Mg Tablet 2 Tab PO PRN Q8HRS PRN Nystatin 15 Gm Powder 1 [place] TP BID Lidocaine PATCH (Lidocaine) 1 Each Adh..patch 1 Each TP DAILY Fluticasone Propionate Nasal [place] (Fluticasone Propionate) 16 Gm [place].susp 2 [place] NS DAILY Percocet 5-325 Mg Tablet (Oxycodone/Acetaminophen) 1 Each Tablet 1-2 Tab PO Q4-6HRS PRN LAST DOSE AT NEXT DOSE Senna-Docusate Sodium Tablet (Sennosides/Docusate Sodium) 1 Each Tablet 1 Each PO BID LAST DOSE THIS AM NEXT DOSE TONIGHT Robaxin-750 (Methocarbamol) 750 Mg Tablet 1 Tab PO TID LAST DOSE AT 1400 (2PM) MAY HAVE THE NEXT DOSE AT 10 PM Protonix (Pantoprazole Sodium) 40 Mg Tablet.dr 40 Mg PO DAILY LST DOSE THIS AM NEXT DOSE TOMORROW AM Carafate (Sucralfate) 1 Gm Tablet 1 Tab PO TID Meds not given this hospital admission. May resume home medications as approved by Physician. MAY TAKE WHEN AVAILABLE Xarelto (Rivaroxaban) 15 Mg Tablet 15 Mg PO DAILY Meds not given this hospital admission. May resume home medications as approved by Physician. MAY RESUME WHEN AVAILABLE Metoprolol Succinate ( Xl ) (Metoprolol Succinate) 100 Mg Tab.er.24h 100 Mg PO HS LAST DOSE THIS AM NEXT DOSE TOMORROW AM Vitals/I & O Vital Sign - Last 24 Hours 11/07/19 11/07/19 11/07/19 11/07/19 12:09 13:05 15:00 19:00 Temp 98.1 98.0 98.1 98.0 Pulse 83 91 Resp 17 18 B/P (MAP) 105/60 (75) 113/60 (77) Pulse Ox 98 98 93 95 O2 Delivery Nasal Cannula Nasal Cannula Nasal Cannula Room Air O2 Flow Rate 3.0 3.0 2.0 11/07/19 11/07/19 11/07/19 11/07/19 20:05 21:41 21:41 22:41 Pulse 91 B/P (MAP) 113/60 Pulse Ox 95 O2 Delivery Room Air Room Air Room Air O2 Flow Rate 2.0 11/07/19 11/08/19 11/08/19 11/08/19 23:00 00:38 01:08 04:36 Temp 98.0 98.0 Pulse 78 Resp 18 B/P (MAP) 117/70 (86) Pulse Ox 94 94 94 O2 Delivery Room Air Room Air Room Air Room Air O2 Flow Rate 2.0 2.0 11/08/19 11/08/19 05:06 07:00 Temp 97.6 97.6 Pulse 66 Resp 18 B/P (MAP) 101/64 (76) Pulse Ox 92 O2 Delivery Nasal Cannula Room Air O2 Flow Rate 2.0 Intake and Output 11/07/19 11/07/19 11/08/19 15:00 23:00 07:00 Intake Total 500 ml Output Total 600 ml 3300 ml Balance -600 ml -2800 ml Nutrition Consultation Dietary Evaluation: Recommendations by RD: Dietary education by RD, Increase Calorie Intake, Protein supplementation Comments: REC continue ADA/cardiac diet ,glucerna w/dinner Expected Outcomes/Goals: PO intake to meet >75% est needs- met at times, goal ongoing Interpretation of weight loss: >5% in 1 month Malnutrition Findings: Food and Nutrition Intake (Sev: <50% est energy req 5days Weight Status: Morbidly Obese LUANNE OWUSU MD Nov 08, 2019 11:03
[2019-11-08] MEDS: IV NORMAL SALINE 1000ML BAG 1,000 ML IV SCH ×2 (11:17→21:31)
[2019-11-08] MEDS: oxyCODONE IR 5 MG TABLET PO PRN ×2 (12:46→18:50)
[2019-11-08] MEDS: ALPRAZolam 0.25 MG TABLET PO PRN ×2 (12:47→21:58)
[2019-11-08] MEDS: amLODIPine BESYLATE 5 MG TABLET PO SCH (12:51)
--- NOTE | 2019-11-08 13:11 | PDOC ---
PROGRESS NOTES Subjective Subjective Reports headache persists. Reports right leg strength overall improved. States can use right leg to push herself up in bed now. ROS: denies cp, soa, emesis Objective Objective Vital Signs Date Time Temp Pulse Resp B/P (MAP) Pulse Ox O2 Delivery O2 Flow Rate FiO2 11/08/19 12:51 71 111/73 11/08/19 11:00 97.4 18 96 Room Air 97.4 Intake and Output 11/08/19 07:00 Intake Total 500 ml Output Total 3900 ml Balance -3400 ml Intake Oral 500 ml Output Urine Total 3900 ml Physical Exam Physical Exam AAOX4, LLANES, 4/5 right DF and PF, sensation stable LT Assessment Assessment Problems Medical Problems: (1) Abdominal hemorrhage Status: Acute (2) Generalized weakness Status: Acute (3) Lactic acidosis Status: Acute (4) Leukocytosis Status: Acute Plan Plan of Care -overall neurologically improved -await final bx result Comment Review of Relevant I have reviewed the following items mustapha (where applicable) has been applied. Labs Laboratory Tests Test 11/06/19 17:07 11/06/19 21:11 11/07/19 07:58 11/07/19 11:40 Glucose (Fingerstick) 292 mg/dL (70-99) 301 mg/dL (70-99) 343 mg/dL (70-99) 426 mg/dL (70-99) Test 11/07/19 16:38 11/07/19 21:19 11/08/19 07:58 11/08/19 12:18 Glucose (Fingerstick) 382 mg/dL (70-99) 359 mg/dL (70-99) 348 mg/dL (70-99) 326 mg/dL (70-99) Laboratory Tests Test 11/07/19 16:38 11/07/19 21:19 11/08/19 07:58 11/08/19 12:18 Glucose (Fingerstick) 382 mg/dL (70-99) 359 mg/dL (70-99) 348 mg/dL (70-99) 326 mg/dL (70-99) Microbiology 11/01/19 Blood Culture - Final, Complete NO GROWTH AFTER 5 DAYS Medications Current Medications Sodium Chloride 500 ml @ 500 mls/hr 1X ONCE IV Last administered on 11/01/19at 13:00; Start 11/01/19 at 13:00; Stop 11/01/19 at 13:59; Status DC Ondansetron HCl (Zofran) 4 mg 1X ONCE IV Last administered on 11/01/19at 13:26; Start 11/01/19 at 13:00; Stop 11/01/19 at 13:13; Status DC Hydromorphone HCl (Dilaudid) 0.5 mg 1X STAT IVP Last administered on at 13:26; Start 11/01/19 at 12:59; Stop 11/01/19 at 13:13; Status DC Iohexol (Omnipaque 300 Mg/ml) 75 ml 1X ONCE IV Last administered on 11/01/19at 14:08; Start 11/01/19 at 13:45; Stop 11/01/19 at 13:46; Status DC Info (CONTRAST GIVEN -- Rx MONITORING) 1 each PRN DAILY PRN MC SEE COMMENTS; Start 11/01/19 at 14:00; Stop 11/03/19 at 13:59; Status DC Hydromorphone HCl (Dilaudid) 0.5 mg 1X STAT IVP Last administered on 11/01/19at 16:53; Start 11/01/19 at 16:21; Stop 11/01/19 at 16:23; Status DC Sodium Chloride 1,000 ml @ 1,000 mls/hr 1X ONCE IV Last administered on 11/01/19at 16:30; Start 11/01/19 at 16:30; Stop 11/01/19 at 17:29; Status DC Sodium Chloride 500 ml @ 500 mls/hr 1X ONCE IV Last administered on 11/01/19at 16:30; Start 11/01/19 at 16:30; Stop 11/01/19 at 17:29; Status DC Albuterol Sulfate (Ventolin Neb Soln) 2.5 mg PRN Q6HRS PRN INH SHORTNESS OF BREATH; Start 11/01/19 at 16:30 Alprazolam (Xanax) 0.25 mg PRN TID PRN PO anxiety; Start 11/01/19 at 16:30; Stop 11/01/19 at 17:11; Status DC Amlodipine Besylate (Norvasc) 5 mg DAILY PO Last administered on 11/08/19at 12:51; Start 11/02/19 at 09:00 Cyclosporine (Restasis) 1 drop BID OU Last administered on 11/08/19 09:32; Start 11/01/19 at 21:00 Fluticasone Propionate (Flonase) 2 spray DAILY NS Last administered on 11/08/19 09:32; Start 11/02/19 at 09:00 Lactobacillus Rhamnosus (Culturelle) 1 cap BID PO Last administered on 11/08/19 09:32; Start 11/01/19 at 21:00 Lidocaine (Lidoderm) 1 patch DAILY TP ; Start 11/02/19 at 09:00; Stop 11/01/19 at 20:34; Status DC Metoprolol Succinate (Toprol Xl) 100 mg HS PO Last administered on 11/07/19 21:41; Start 11/01/19 at 21:00 Nystatin (Nystop) 1 raza BID TP Last administered on 11/07/19 09:00; Start 11/01/19 at 21:00 Pantoprazole Sodium (Protonix) 40 mg DAILYAC PO Last administered on 11/08/19 09:32; Start 11/02/19 at 07:30 Senna/Docusate Sodium (Senna Plus) 1 tab BID PO Last administered on 11/08/19 09:32; Start 11/01/19 at 21:00 Sucralfate (Carafate) 1 gm TIDAC PO Last administered on 11/08/19 12:51; Start 11/01/19 at 17:30 Tramadol HCl (Ultram) 50 mg PRN Q8HRS PRN PO PAIN; Start 11/01/19 at 16:30; Stop 11/01/19 at 19:43; Status DC Insulin Glargine (Lantus Syringe) 30 unit QHS SQ Last administered on 11/06/19 21:16; Start 11/01/19 at 21:00; Stop 11/07/19 at 15:56; Status DC Ondansetron HCl (Zofran Odt) 8 mg PRN Q8HRS PRN PO NAUSEA/VOMITING Last administered on 11/07/19 13:05; Start 11/01/19 at 17:15 Polyethylene Glycol (miraLAX PACKET) 17 gm PRN DAILY PRN PO CONSTIPATION, 1ST CHOICE Last administered on 11/08/19 10:00; Start 11/01/19 at 17:11 Atorvastatin Calcium (Lipitor) 80 mg QHS PO Last administered on 11/07/19 21:41; Start 11/01/19 at 21:00 Insulin Human Lispro (HumaLOG) 0-9 UNITS TIDAC SQ Last administered on 11/07/19 12:20; Start 11/01/19 at 16:30; Stop 11/07/19 at 15:56; Status DC Dextrose (Dextrose 50%-Water Syringe) 12.5 gm PRN Q15MIN PRN IV SEE COMMENTS; Start 11/01/19 at 16:30 Ondansetron HCl (Zofran) 4 mg PRN Q8HRS PRN IV NAUSEA/VOMITING; Start 11/01/19 at 16:30; Stop 11/02/19 at 16:29; Status DC Alprazolam (Xanax) 0.25 mg PRN TID PRN PO anxiety Last administered on 11/08/19 12:47; Start 11/01/19 at 17:11 Miscellaneous (Lidoderm Patch Removal) 1 ea QHS MC ; Start 11/01/19 at 21:00; Stop 11/01/19 at 20:34; Status DC Ceftriaxone Sodium (Rocephin) 1 gm QHS IVP Last administered on 11/07/19at 21:40; Start 11/01/19 at 18:45 Tramadol HCl (Ultram) 50 mg PRN Q8HRS PRN PO MILD PAIN 1-3 Last administered on 11/05/19 22:04; Start 11/01/19 at 19:45 Hydromorphone HCl (Dilaudid) 1 mg PRN Q4HRS PRN IV PAIN Last administered on 11/08/19 10:01; Start 11/01/19 at 20:15 Lidocaine (Lidoderm) 1 patch QHS TP Last administered on 11/04/19 21:55; Start 11/01/19 at 21:00 Miscellaneous (Lidoderm Patch Removal) 1 ea DAILY MC Last administered on 11/07/19at 09:00; Start 11/02/19 at 09:00 Albumin Human 500 ml @ 125 mls/hr 1X ONCE IV ; Start 11/02/19 at 02:00; Stop 11/02/19 at 05:59; Status Cancel Acetaminophen (Tylenol) 650 mg 1X PRN PRN PO PRE-TRANSFUSION; Start 11/02/19 at 06:45; Stop 11/03/19 at 14:16; Status DC Diphenhydramine HCl (Benadryl Oral Elixir) 12.5 mg 1X PRN PRN PO PRE- TRANSFUSION; Start 11/02/19 at 06:45; Stop 11/03/19 at 14:16; Status DC Diphenhydramine HCl (Benadryl) 25 mg PRN 1X PRN PO PRE-TRANSFUSION; Start 11/02/19 at 06:45; Stop 11/03/19 at 14:16; Status DC Lactulose (LACTULOSE 300ML for RECTAL) 200 gm Q6HRS [place] Last administered on 11/02/19at 18:00; Start 11/02/19 at 18:00; Stop 11/04/19 at 14:44; Status DC Sodium Chloride 1,000 ml @ 100 mls/hr Q10H IV Last administered on 11/08/19at 11:17; Start 11/02/19 at 12:00 Lactulose (Lactulose) 20 gm PRN DAILY PRN PO CONSTIPATION, 2ND CHOICE; Start 11/04/19 at 14:45 Oxycodone HCl (Roxicodone) 5 mg PRN Q6HRS PRN PO MODERATE TO SEVERE PAIN Last administered on 11/08/19at 12:46; Start 11/04/19 at 14:45 Lidocaine HCl (Buffered Lidocaine 1%) 3 ml STK-MED ONCE .ROUTE ; Start 11/05/19 at 08:13; Stop 11/05/19 at 08:13; Status DC Lidocaine HCl (Buffered Lidocaine 1%) 3 ml STK-MED ONCE .ROUTE ; Start 11/05/19 at 08:14; Stop 11/05/19 at 08:14; Status DC Midazolam HCl (Versed) 2 mg STK-MED ONCE .ROUTE ; Start 11/05/19 at 08:40; Stop 11/05/19 at 08:40; Status DC Fentanyl Citrate (Fentanyl 2ml Vial) 100 mcg STK-MED ONCE .ROUTE ; Start 11/05/19 at 08:40; Stop 11/05/19 at 08:41; Status DC Lidocaine HCl (Buffered Lidocaine 1%) 3 ml 1X ONCE IJ Last administered on 11/05/19at 08:45; Start 11/05/19 at 08:45; Stop 11/05/19 at 08:50; Status DC Midazolam HCl (Versed) 2 mg 1X ONCE IV Last administered on 11/05/19at 08:45; Start 11/05/19 at 08:45; Stop 11/05/19 at 08:50; Status DC Fentanyl Citrate (Fentanyl 2ml Vial) 100 mcg 1X ONCE IV Last administered on 11/05/19at 08:45; Start 11/05/19 at 08:45; Stop 11/05/19 at 08:50; Status DC Dexamethasone Sodium Phosphate (Decadron) 4 mg Q6HRS IVP Last administered on 11/08/19at 12:47; Start 11/06/19 at 09:00 Insulin Glargine (Lantus Syringe) 40 unit QHS SQ Last administered on 11/07/19at 21:46; Start 11/07/19 at 21:00 Insulin Human Lispro (HumaLOG) 10 units TIDAC SQ Last administered on 11/08/19at 12:59; Start 11/07/19 at 16:30 Insulin Human Lispro (HumaLOG) 0-9 UNITS TIDWMEALS SQ Last administered on 11/08/19at 13:00; Start 11/07/19 at 17:00 Active Scripts Active Enoxaparin Sodium 120 Mg/0.8 Ml Disp.syrin 120 Mg SQ Q12HR 28 Days Dexamethasone 4 Mg Tablet 4 Mg PO BID 14 Days Culturelle (Lactobacillus Rhamnosus Gg) 1 Each Cap.sprink 1 Cap PO BID 30 Days Amlodipine Besylate 5 Mg Tablet 5 Mg PO DAILY 30 Days Cefdinir 300 Mg Capsule 300 Mg PO BID 10 Days Reported Cymbalta (Duloxetine Hcl) 60 Mg Capsule. 1 Cap PO BID Lyrica (Pregabalin) 150 Mg Capsule 1 Cap PO BID Novolog (Insulin Aspart) 100 Unit/1 Ml Cartridge 10-45 Unit SQ QIDACHS Levemir (Insulin Detemir) 100 Unit/1 Ml Vial 30 Unit SQ HS Linzess (Linaclotide) 145 Mcg Capsule 145 Mcg PO PRN PRN Crestor (Rosuvastatin Calcium) 40 Mg Tablet 0.5 Tab PO DAILY Polyethylene Glycol 3350 2,500 Gm Powder 17 Gm PO PRN PRN Xanax (Alprazolam) 1 Mg Tablet 1 Tab PO TID Restasis (Cyclosporine) 1 Each Droperette 1 Drop EACHEYE BID Proair Hfa Inhaler (Albuterol Sulfate) 8.5 Gm Hfa.aer.ad 1 Puff INH PRN Q6HRS PRN Tramadol Hcl 50 Mg Tablet 1 Tab PO PRN Q8HRS PRN Ondansetron Hcl 4 Mg Tablet 2 Tab PO PRN Q8HRS PRN Nystatin 15 Gm Powder 1 Raza TP BID Lidocaine PATCH (Lidocaine) 1 Each Adh..patch 1 Each TP DAILY Fluticasone Propionate Nasal Formoso (Fluticasone Propionate) 16 Gm Formoso.susp 2 Formoso NS DAILY Percocet 5-325 Mg Tablet (Oxycodone/Acetaminophen) 1 Each Tablet 1-2 Tab PO Q4-6HRS PRN LAST DOSE AT NEXT DOSE Senna-Docusate Sodium Tablet (Sennosides/Docusate Sodium) 1 Each Tablet 1 Each P O BID LAST DOSE THIS AM NEXT DOSE TONIGHT Robaxin-750 (Methocarbamol) 750 Mg Tablet 1 Tab PO TID LAST DOSE AT 1400 (2PM) MAY HAVE THE NEXT DOSE AT 10 PM Protonix (Pantoprazole Sodium) 40 Mg Tablet.dr 40 Mg PO DAILY LST DOSE THIS AM NEXT DOSE TOMORROW AM Carafate (Sucralfate) 1 Gm Tablet 1 Tab PO TID Meds not given this hospital admission. May resume home medications as approved by Physician. MAY TAKE WHEN AVAILABLE Xarelto (Rivaroxaban) 15 Mg Tablet 15 Mg PO DAILY Meds not given this hospital admission. May resume home medications as approved by Physician. MAY RESUME WHEN AVAILABLE Metoprolol Succinate ( Xl ) (Metoprolol Succinate) 100 Mg Tab.er.24h 100 Mg PO HS LAST DOSE THIS AM NEXT DOSE TOMORROW AM Vitals/I & O Vital Sign - Last 24 Hours 11/07/19 11/07/19 11/07/19 11/07/19 15:00 19:00 20:05 21:41 Temp 98.1 98.0 98.1 98.0 Pulse 83 91 91 Resp 17 18 B/P (MAP) 105/60 (75) 113/60 (77) 113/60 Pulse Ox 93 95 O2 Delivery Nasal Cannula Room Air Room Air O2 Flow Rate 2.0 11/07/19 11/07/19 11/07/19 11/08/19 21:41 22:41 23:00 00:38 Temp 98.0 98.0 Pulse 78 Resp 18 B/P (MAP) 117/70 (86) Pulse Ox 95 94 O2 Delivery Room Air Room Air Room Air Room Air O2 Flow Rate 2.0 11/08/19 11/08/19 11/08/19 11/08/19 01:08 04:36 05:06 07:00 Temp 97.6 97.6 Pulse 66 Resp 18 B/P (MAP) 101/64 (76) Pulse Ox 94 94 92 O2 Delivery Room Air Room Air Nasal Cannula Room Air O2 Flow Rate 2.0 2.0 2.0 11/08/19 11/08/19 11/08/19 11:00 11:00 12:51 Temp 97.4 97.4 97.4 97.4 Pulse 71 71 71 Resp 18 18 B/P (MAP) 111/73 (86) 111/73 (86) 111/73 Pulse Ox 96 96 O2 Delivery Room Air Room Air O2 Flow Rate Intake and Output 11/07/19 11/07/19 11/08/19 15:00 23:00 07:00 Intake Total 500 ml Output Total 600 ml 3300 ml Balance -600 ml -2800 ml Nutrition Consultation Dietary Evaluation: Recommendations by RD: Dietary education by RD, Increase Calorie Intake, Protein supplementation Comments: REC continue ADA/cardiac diet ,glucerna w/dinner Expected Outcomes/Goals: PO intake to meet >75% est needs- met at times, goal ongoing Interpretation of weight loss: >5% in 1 month Malnutrition Findings: Food and Nutrition Intake (Sev: <50% est energy req 5days Weight Status: Morbidly Obese BINH WELCH MD Nov 08, 2019 13:11
--- NOTE | 2019-11-08 14:07 | NUR ---
SW following. Discussed with RN, PT recommending home. bone marrow biopsy results pending. SW will continue to follow.
[2019-11-08 15:00] VITALS: BP 106/61
--- NOTE | 2019-11-08 16:24 | PDOC ---
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 Vasogenic edema with 4 mm left to right midline shift Headaches. Cognitive impairment. Staring spells. HTN. HLD. DM. KRISS. ADHD. PE Hx. Leukocytosis. Obesity. RECOMMENDATIONS/PLAN: Pain control for headache. Continue Decadron 4 mg IV q6h. Continue Lipitor HS. Treat medical diseases. Consulted Neurosurgery and Oncology. Weight reduction. OT/PT. EEG on 11/06/19; normal. History of Present Illness This is a 49-year-old female patient with history of CAD, Diabetes, High Cholesterol, Hypertension, Kidney Stones, Ovarian Cyst, Pneumonia, pulmonary embolism, tachycardia was brought to the ER of [facility] with complaints of headaches and presyncope. She stated that she has been having chronic headaches in her left side frontal and temporal head for about 2 years and right LE weakness that gradually became worse and she was unable to walk. She was revealed a brain tumor in 09/2019, but her headaches and right LE weakness progressed. She has nausea but no vomiting. 11/08/19: still has some headaches, but right L:E weakness improved. Past Medical History Cardiovascular: HTN, Hyperlipidemia, Other (tachycardia) Pulmonary: Asthma, Pulmonary embolus ( DVT, on [place]), Other (sleep apnea) CENTRAL NERVOUS SYSTEM: Periperal neuropathy, Other (right L5 radiculopathy) GI: Peptic Ulcer disease, Other (pancreatitis, hiatal hernia) Psych: Anxiety, Depression, Other (ADHD) Musculoskeletal: low back pain Renal/: Other (nephrolithiasis) Endocrine: Diabetes Past Surgical History Appendectomy, Cholecystectomy, , Hysterectomy (fbrioids), Other (lumbar laminectomy) Family History Cancer, CAD Social History ex smoker, no alcohol, disabled Allergies Coded Allergies: azithromycin (Verified Allergy, Intermediate, 10/12/19) codeine (Verified Allergy, Intermediate, 05/06/17) morphine (Verified Allergy, Intermediate, 05/06/17) ROS Negative for fever, chills, weight loss, shortness of breath, chest pain, indigestion, hematochezia, melena, and dysuria. Full 14-point review of systems is negative. MEDICATIONS: Refer to MAR PHYSICAL EXAMINATION: General appearance in subacute distress. HEENT: Normocephalic and nontraumatic. Eyes, nose, ears, and throat are unremarkable. Hearing decrease. Neck is supple. No lymphadenopathy. No Crepitus. Cardiovascular: S1, S2, regular rate and rhythm. Pulmonary: Clear to auscultation bilaterally. Abdomen: Bowel sounds are positive. Abdomen is soft, nontender, and nondistended. Extremities: No rash, lesions, or edema. No restriction of range of motion NEUROLOGICAL EXAMINATION: Alert. Oriented to time, place and person. PERRL. EOMI. CN: no focal findings. Muscle tone: within normal. Muscle strength: 4 right UE, 3-4 right LE, 4+ left side. DTR: 1 Plantar reflex: Flexor response bilaterally Gait: Able to walk a few steps. Sensory exam: seemed mildly decreased to light touch in right LE below the knee. No cerebellar signs elicited. F-T-N test fine. Objective Objective Vital Signs Date Time Temp Pulse Resp B/P (MAP) Pulse Ox O2 Delivery O2 Flow Rate FiO2 11/08/19 15:16 Room Air 11/08/19 15:00 98.7 78 18 106/61 (76) 94 98.7 11/08/19 11:00 Intake and Output 11/08/19 07:00 Intake Total 500 ml Output Total 3900 ml Balance -3400 ml Intake Oral 500 ml Output Urine Total 3900 ml Vitals Signs Vitals VS - Last 72 Hours, by Label Date Time Temp Pulse Resp B/P (MAP) Pulse Ox O2 Delivery O2 Flow Rate FiO2 11/08/19 15:16 Room Air 11/08/19 15:13 Room Air 11/08/19 15:00 98.7 78 18 106/61 (76) 94 Room Air 98.7 11/08/19 12:51 71 111/73 11/08/19 11:00 97.4 71 18 111/73 (86) 96 Room Air 97.4 11/08/19 11:00 97.4 71 18 111/73 (86) 96 Room Air 97.4 11/08/19 08:00 Room Air 11/08/19 07:00 97.6 66 18 101/64 (76) 92 Room Air 97.6 11/08/19 05:06 Nasal Cannula 2.0 11/08/19 04:36 94 Room Air 2.0 11/08/19 01:08 94 Room Air 2.0 11/08/19 00:38 Room Air 11/07/19 23:00 98.0 78 18 117/70 (86) 94 Room Air 98.0 11/07/19 22:41 95 Room Air 2.0 11/07/19 21:41 Room Air 11/07/19 21:41 91 113/60 11/07/19 20:05 Room Air 11/07/19 19:00 98.0 91 18 113/60 (77) 95 Room Air 98.0 11/07/19 15:00 98.1 83 17 105/60 (75) 93 Nasal Cannula 2.0 98.1 11/07/19 13:05 98 Nasal Cannula 3.0 11/07/19 12:09 98 Nasal Cannula 3.0 11/07/19 11:00 97.7 78 17 99/64 (76) 95 Room Air 97.7 11/07/19 08:58 77 125/70 11/07/19 08:00 Nasal Cannula 3.0 11/07/19 07:28 20 98 Nasal Cannula 3.0 11/07/19 07:00 97.4 77 17 125/70 (88) 97 Room Air 97.4 Laboratory Laboratory Laboratory Tests Test 11/07/19 16:38 11/07/19 21:19 11/08/19 07:58 11/08/19 12:18 Glucose (Fingerstick) 382 mg/dL (70-99) 359 mg/dL (70-99) 348 mg/dL (70-99) 326 mg/dL (70-99) Microbiology 11/01/19 Blood Culture - Final, Complete NO GROWTH AFTER 5 DAYS Medication Medications Current Medications Insulin Glargine (Lantus Syringe) 40 unit QHS SQ Last administered on 11/07/19at 21:46; Start 11/07/19 at 21:00 Insulin Human Lispro (HumaLOG) 0-9 UNITS TIDWMEALS SQ Last administered on 11/08/19at 13:00; Start 11/07/19 at 17:00 Insulin Human Lispro (HumaLOG) 10 units TIDAC SQ Last administered on 11/08/19at 12:59; Start 11/07/19 at 16:30 Comment Review of Relevant I have reviewed the following items mustapha (where applicable) has been applied. JOHNATHON OGLESBY MD Nov 08, 2019 16:24
[2019-11-08 19:00] VITALS: BP 113/63
[2019-11-08] MEDS: LIDOCAINE (700MG/PATCH) PATCH. TP SCH (21:00)
[2019-11-08] MEDS: cefTRIAXone IV Push 1 GM VIAL. IVP SCH (21:32)
[2019-11-08] MEDS: ATORVASTATIN CALCIUM 40 MG TABLET. PO SCH (21:32)
[2019-11-08] MEDS: METOPROLOL SUCC 24HR ER 100 MG TAB.ER.24H. PO SCH (21:33)
[2019-11-08] MEDS: INSULIN GLARGINE SYRINGE. SQ SCH (21:44)
[2019-11-08 23:00] VITALS: BP 110/69
[2019-11-09] MEDS: DEXAMETHASONE SOD PHOS 4 MG/ML VIAL IVP SCH ×4 (00:05→18:14)
[2019-11-09] MEDS: HYDROmorphone 2 MG/ML VIAL IV PRN ×5 (01:46→21:33)
[2019-11-09 03:00] VITALS: BP 110/73
[2019-11-09] MEDS: oxyCODONE IR 5 MG TABLET PO PRN ×2 (04:42→18:14)
[2019-11-09 07:00] VITALS: BP 127/60
[2019-11-09] MEDS: IV NORMAL SALINE 1000ML BAG 1,000 ML IV SCH ×2 (08:27→18:02)
[2019-11-09] MEDS: amLODIPine BESYLATE 5 MG TABLET PO SCH (08:28)
[2019-11-09] MEDS: SENNOSIDES/DOCUSATE 8.6/50MG TABLET. PO SCH ×2 (08:28→21:28)
[2019-11-09] MEDS: SUCRALFATE 1 GM TABLET. PO SCH ×3 (08:28→18:02)
[2019-11-09] MEDS: LACTOBACILLUS RHAMNOSUS GG 1 CAPSULE. PO SCH (08:28)
[2019-11-09] MEDS: PANTOPRAZOLE 40 MG TABLET.DR. PO SCH ×2 (08:28→18:12)
[2019-11-09] MEDS: cycloSPORINE 0.05% OPHTH DROPERETTE. OU SCH ×2 (08:28→21:29)
[2019-11-09] MEDS: NYSTATIN TOPICAL POWDER 15GM BOTTLE. TP SCH ×2 (08:29→21:30)
[2019-11-09] MEDS: FLUTICASONE 50MCG/NASAL SPRAY 16GM BOTTLE. NS SCH (08:29)
[2019-11-09] MEDS: POLYETHYLENE GLYCOL 3350 17 GM PACKET. PO PRN (08:29)
[2019-11-09] MEDS: PATCH REMOVAL. MC SCH (08:30)
[2019-11-09] MEDS: INSULIN LISPRO 300 UNITS/3 ML VIAL. SQ SCH ×6 (08:36→18:09)
[2019-11-09] MEDS: ALPRAZolam 0.25 MG TABLET PO PRN ×2 (08:46→21:28)
--- NOTE | 2019-11-09 09:27 | PDOC ---
PROGRESS NOTES Subjective Subjective Denies acute changes. ROS - stable headache, right leg stable, denies cp, soa Objective Objective Vital Signs Date Time Temp Pulse Resp B/P (MAP) Pulse Ox O2 Delivery O2 Flow Rate FiO2 11/09/19 08:28 69 127/60 11/09/19 07:00 97.9 16 94 Room Air 97.9 11/09/19 05:50 2.0 Intake and Output 11/09/19 07:00 Intake Total 1120 ml Balance 1120 ml Intake Oral 120 ml IV Total 1000 ml Physical Exam Physical Exam AAOx4, NAD, LLANES stable weakness, sensation unchanged LT Assessment Assessment Problems Medical Problems: (1) Abdominal hemorrhage Status: Acute (2) Generalized weakness Status: Acute (3) Lactic acidosis Status: Acute (4) Leukocytosis Status: Acute Plan Plan of Care -confer with heme Comment Review of Relevant I have reviewed the following items mustapha (where applicable) has been applied. Labs Laboratory Tests Test 11/07/19 11:40 11/07/19 16:38 11/07/19 21:19 11/08/19 07:58 Glucose (Fingerstick) 426 mg/dL (70-99) 382 mg/dL (70-99) 359 mg/dL (70-99) 348 mg/dL (70-99) Test 11/08/19 12:18 11/08/19 17:23 11/08/19 21:36 11/09/19 07:47 Glucose (Fingerstick) 326 mg/dL (70-99) 268 mg/dL (70-99) 378 mg/dL (70-99) 317 mg/dL (70-99) Laboratory Tests Test 11/08/19 12:18 11/08/19 17:23 11/08/19 21:36 11/09/19 07:47 Glucose (Fingerstick) 326 mg/dL (70-99) 268 mg/dL (70-99) 378 mg/dL (70-99) 317 mg/dL (70-99) Microbiology 11/01/19 Blood Culture - Final, Complete NO GROWTH AFTER 5 DAYS Medications Current Medications Sodium Chloride 500 ml @ 500 mls/hr 1X ONCE IV Last administered on 11/01/19at 13:00; Start 11/01/19 at 13:00; Stop 11/01/19 at 13:59; Status DC Ondansetron HCl (Zofran) 4 mg 1X ONCE IV Last administered on 11/01/19at 13:2 6; Start 11/01/19 at 13:00; Stop 11/01/19 at 13:13; Status DC Hydromorphone HCl (Dilaudid) 0.5 mg 1X STAT IVP Last administered on 11/01/19at 13:26; Start 11/01/19 at 12:59; Stop 11/01/19 at 13:13; Status DC Iohexol (Omnipaque 300 Mg/ml) 75 ml 1X ONCE IV Last administered on 11/01/19at 14:08; Start 11/01/19 at 13:45; Stop 11/01/19 at 13:46; Status DC Info (CONTRAST GIVEN -- Rx MONITORING) 1 each PRN DAILY PRN MC SEE COMMENTS; Start 11/01/19 at 14:00; Stop 11/03/19 at 13:59; Status DC Hydromorphone HCl (Dilaudid) 0.5 mg 1X STAT IVP Last administered on 11/01/19at 16:53; Start 11/01/19 at 16:21; Stop 11/01/19 at 16:23; Status DC Sodium Chloride 1,000 ml @ 1,000 mls/hr 1X ONCE IV Last administered on 11/01/19at 16:30; Start 11/01/19 at 16:30; Stop 11/01/19 at 17:29; Status DC Sodium Chloride 500 ml @ 500 mls/hr 1X ONCE IV Last administered on 11/01/19at 16:30; Start 11/01/19 at 16:30; Stop 11/01/19 at 17:29; Status DC Albuterol Sulfate (Ventolin Neb Soln) 2.5 mg PRN Q6HRS PRN INH SHORTNESS OF BREATH; Start 11/01/19 at 16:30 Alprazolam (Xanax) 0.25 mg PRN TID PRN PO anxiety; Start 11/01/19 at 16:30; Stop 11/01/19 at 17:11; Status DC Amlodipine Besylate (Norvasc) 5 mg DAILY PO Last administered on 11/09/19at 08:28; Start 11/02/19 at 09:00 Cyclosporine (Restasis) 1 drop BID OU Last administered on 11/09/19 08:28; Start 11/01/19 at 21:00 Fluticasone Propionate (Flonase) 2 spray DAILY NS Last administered on 11/09/19 08:29; Start 11/02/19 at 09:00 Lactobacillus Rhamnosus (Culturelle) 1 cap BID PO Last administered on 11/09/19 08:28; Start 11/01/19 at 21:00 Lidocaine (Lidoderm) 1 patch DAILY TP ; Start 11/02/19 at 09:00; Stop 11/01/19 at 20:34; Status DC Metoprolol Succinate (Toprol Xl) 100 mg HS PO Last administered on 11/08/19 21:33; Start 11/01/19 at 21:00 Nystatin (Nystop) 1 raza BID TP Last administered on 11/07/19 09:00; Start 11/01/19 at 21:00 Pantoprazole Sodium (Protonix) 40 mg DAILYAC PO Last administered on 11/09/19 08:28; Start 11/02/19 at 07:30 Senna/Docusate Sodium (Senna Plus) 1 tab BID PO Last administered on 11/09/19 08:28; Start 11/01/19 at 21:00 Sucralfate (Carafate) 1 gm TIDAC PO Last administered on 11/09/19 08:28; Start 11/01/19 at 17:30 Tramadol HCl (Ultram) 50 mg PRN Q8HRS PRN PO PAIN; Start 11/01/19 at 16:30; Stop 11/01/19 at 19:43; Status DC Insulin Glargine (Lantus Syringe) 30 unit QHS SQ Last administered on 11/06/19 21:16; Start 11/01/19 at 21:00; Stop 11/07/19 at 15:56; Status DC Ondansetron HCl (Zofran Odt) 8 mg PRN Q8HRS PRN PO NAUSEA/VOMITING Last administered on 11/07/19 13:05; Start 11/01/19 at 17:15 Polyethylene Glycol (miraLAX PACKET) 17 gm PRN DAILY PRN PO CONSTIPATION, 1ST CHOICE Last administered on 11/09/19 08:29; Start 11/01/19 at 17:11 Atorvastatin Calcium (Lipitor) 80 mg QHS PO Last administered on 11/08/19 21:32; Start 11/01/19 at 21:00 Insulin Human Lispro (HumaLOG) 0-9 UNITS TIDAC SQ Last administered on 11/07/19at 12:20; Start 11/01/19 at 16:30; Stop 11/07/19 at 15:56; Status DC Dextrose (Dextrose 50%-Water Syringe) 12.5 gm PRN Q15MIN PRN IV SEE COMMENTS; Start 11/01/19 at 16:30 Ondansetron HCl (Zofran) 4 mg PRN Q8HRS PRN IV NAUSEA/VOMITING; Start 11/01/19 at 16:30; Stop 11/02/19 at 16:29; Status DC Alprazolam (Xanax) 0.25 mg PRN TID PRN PO anxiety Last administered on 11/09/19 08:46; Start 11/01/19 at 17:11 Miscellaneous (Lidoderm Patch Removal) 1 ea QHS MC ; Start 11/01/19 at 21:00; Stop 11/01/19 at 20:34; Status DC Ceftriaxone Sodium (Rocephin) 1 gm QHS IVP Last administered on 11/08/19 21:32; Start 11/01/19 at 18:45 Tramadol HCl (Ultram) 50 mg PRN Q8HRS PRN PO MILD PAIN 1-3 Last administered on 11/05/19at 22:04; Start 11/01/19 at 19:45 Hydromorphone HCl (Dilaudid) 1 mg PRN Q4HRS PRN IV PAIN Last administered on 11/09/19 05:50; Start 11/01/19 at 20:15 Lidocaine (Lidoderm) 1 patch QHS TP Last administered on 11/04/19 21:55; Start 11/01/19 at 21:00 Miscellaneous (Lidoderm Patch Removal) 1 ea DAILY MC Last administered on 11/07/19at 09:00; Start 11/02/19 at 09:00 Albumin Human 500 ml @ 125 mls/hr 1X ONCE IV ; Start 11/02/19 at 02:00; Stop 11/02/19 at 05:59; Status Cancel Acetaminophen (Tylenol) 650 mg 1X PRN PRN PO PRE-TRANSFUSION; Start 11/02/19 at 06:45; Stop 11/03/19 at 14:16; Status DC Diphenhydramine HCl (Benadryl Oral Elixir) 12.5 mg 1X PRN PRN PO PRE- TRANSFUSION; Start 11/02/19 at 06:45; Stop 11/03/19 at 14:16; Status DC Diphenhydramine HCl (Benadryl) 25 mg PRN 1X PRN PO PRE-TRANSFUSION; Start 11/02/19 at 06:45; Stop 11/03/19 at 14:16; Status DC Lactulose (LACTULOSE 300ML for RECTAL) 200 gm Q6HRS CO Last administered on 11/02/19at 18:00; Start 11/02/19 at 18:00; Stop 11/04/19 at 14:44; Status DC Sodium Chloride 1,000 ml @ 100 mls/hr Q10H IV Last administered on 11/09/19at 08:27; Start 11/02/19 at 12:00 Lactulose (Lactulose) 20 gm PRN DAILY PRN PO CONSTIPATION, 2ND CHOICE; Start 11/04/19 at 14:45 Oxycodone HCl (Roxicodone) 5 mg PRN Q6HRS PRN PO MODERATE TO SEVERE PAIN Last administered on 11/09/19at 04:42; Start 11/04/19 at 14:45 Lidocaine HCl (Buffered Lidocaine 1%) 3 ml STK-MED ONCE .ROUTE ; Start 11/05/19 at 08:13; Stop 11/05/19 at 08:13; Status DC Lidocaine HCl (Buffered Lidocaine 1%) 3 ml STK-MED ONCE .ROUTE ; Start 11/05/19 at 08:14; Stop 11/05/19 at 08:14; Status DC Midazolam HCl (Versed) 2 mg STK-MED ONCE .ROUTE ; Start 11/05/19 at 08:40; Stop 11/05/19 at 08:40; Status DC Fentanyl Citrate (Fentanyl 2ml Vial) 100 mcg STK-MED ONCE .ROUTE ; Start 11/05/19 at 08:40; Stop 11/05/19 at 08:41; Status DC Lidocaine HCl (Buffered Lidocaine 1%) 3 ml 1X ONCE IJ Last administered on 11/05/19at 08:45; Start 11/05/19 at 08:45; Stop 11/05/19 at 08:50; Status DC Midazolam HCl (Versed) 2 mg 1X ONCE IV Last administered on 11/05/19at 08:45; Start 11/05/19 at 08:45; Stop 11/05/19 at 08:50; Status DC Fentanyl Citrate (Fentanyl 2ml Vial) 100 mcg 1X ONCE IV Last administered on 11/05/19at 08:45; Start 11/05/19 at 08:45; Stop 11/05/19 at 08:50; Status DC Dexamethasone Sodium Phosphate (Decadron) 4 mg Q6HRS IVP Last administered on 11/09/19at 05:50; Start 11/06/19 at 09:00 Insulin Glargine (Lantus Syringe) 40 unit QHS SQ Last administered on 11/08/19at 21:44; Start 11/07/19 at 21:00 Insulin Human Lispro (HumaLOG) 10 units TIDAC SQ Last administered on 11/09/19at 08:36; Start 11/07/19 at 16:30 Insulin Human Lispro (HumaLOG) 0-9 UNITS TIDWMEALS SQ Last administered on 11/09/19at 08:37; Start 11/07/19 at 17:00 Active Scripts Active Enoxaparin Sodium 120 Mg/0.8 Ml Disp.syrin 120 Mg SQ Q12HR 28 Days Dexamethasone 4 Mg Tablet 4 Mg PO BID 14 Days Culturelle (Lactobacillus Rhamnosus Gg) 1 Each Cap.sprink 1 Cap PO BID 30 Days Amlodipine Besylate 5 Mg Tablet 5 Mg PO DAILY 30 Days Cefdinir 300 Mg Capsule 300 Mg PO BID 10 Days Reported Cymbalta (Duloxetine Hcl) 60 Mg Capsule.dr 1 Cap PO BID Lyrica (Pregabalin) 150 Mg Capsule 1 Cap PO BID Novolog (Insulin Aspart) 100 Unit/1 Ml Cartridge 10-45 Unit SQ QIDACHS Levemir (Insulin Detemir) 100 Unit/1 Ml Vial 30 Unit SQ HS Linzess (Linaclotide) 145 Mcg Capsule 145 Mcg PO PRN PRN Crestor (Rosuvastatin Calcium) 40 Mg Tablet 0.5 Tab PO DAILY Polyethylene Glycol 3350 2,500 Gm Powder 17 Gm PO PRN PRN Xanax (Alprazolam) 1 Mg Tablet 1 Tab PO TID Restasis (Cyclosporine) 1 Each Droperette 1 Drop EACHEYE BID Proair Hfa Inhaler (Albuterol Sulfate) 8.5 Gm Hfa.aer.ad 1 Puff INH PRN Q6HRS PRN Tramadol Hcl 50 Mg Tablet 1 Tab PO PRN Q8HRS PRN Ondansetron Hcl 4 Mg Tablet 2 Tab PO PRN Q8HRS PRN Nystatin 15 Gm Powder 1 Raza TP BID Lidocaine PATCH (Lidocaine) 1 Each Adh..patch 1 Each TP DAILY Fluticasone Propionate Nasal [place] (Fluticasone Propionate) 16 Gm [place].susp 2 [place] NS DAILY Percocet 5-325 Mg Tablet (Oxycodone/Acetaminophen) 1 Each Tablet 1-2 Tab PO Q4-6HRS PRN LAST DOSE AT NEXT DOSE Senna-Docusate Sodium Tablet (Sennosides/Docusate Sodium) 1 Each Tablet 1 Each PO BID LAST DOSE THIS AM NEXT DOSE TONIGHT Robaxin-750 (Methocarbamol) 750 Mg Tablet 1 Tab PO TID LAST DOSE AT 1400 (2PM) MAY HAVE THE NEXT DOSE AT 10 PM Protonix (Pantoprazole Sodium) 40 Mg Tablet.dr 40 Mg PO DAILY LST DOSE THIS AM NEXT DOSE TOMORROW AM Carafate (Sucralfate) 1 Gm Tablet 1 Tab PO TID Meds not given this hospital admission. May resume home medications as approved by Physician. MAY TAKE WHEN AVAILABLE Xarelto (Rivaroxaban) 15 Mg Tablet 15 Mg PO DAILY Meds not given this hospital admission. May resume home medications as approved by Physician. MAY RESUME WHEN AVAILABLE Metoprolol Succinate ( Xl ) (Metoprolol Succinate) 100 Mg Tab.er.24h 100 Mg PO HS LAST DOSE THIS AM NEXT DOSE TOMORROW AM Vitals/I & O Vital Sign - Last 24 Hours 11/08/19 11/08/19 11/08/19 11/08/19 11:00 11:00 12:51 15:00 Temp 97.4 97.4 98.7 97.4 97.4 98.7 Pulse 71 71 71 78 Resp 18 18 18 B/P (MAP) 111/73 (86) 111/73 (86) 111/73 106/61 (76) Pulse Ox 96 96 94 O2 Delivery Room Air Room Air Room Air O2 Flow Rate 11/08/19 11/08/19 11/08/19 11/08/19 15:13 15:16 19:00 20:04 Temp 98.1 98.1 Pulse 82 Resp 18 B/P (MAP) 113/63 (80) Pulse Ox 91 O2 Delivery Room Air Room Air Room Air Room Air 11/08/19 11/08/19 11/08/19 11/08/19 21:33 21:35 21:45 22:10 Pulse 82 Resp 16 16 16 B/P (MAP) 113/63 Pulse Ox 91 O2 Delivery Room Air Room Air Room Air 11/08/19 11/09/19 11/09/19 11/09/19 23:00 01:46 02:20 03:00 Temp 98.6 97.9 98.6 97.9 Pulse 85 71 Resp 18 16 16 18 B/P (MAP) 110/69 (83) 110/73 (85) Pulse Ox 94 96 O2 Delivery Room Air Room Air Room Air Room Air O2 Flow Rate 2.0 2.0 11/09/19 11/09/19 11/09/19 11/09/19 04:42 05:49 05:50 07:00 Temp 97.9 97.9 Pulse 69 Resp 16 16 16 16 B/P (MAP) 127/60 (82) Pulse Ox 96 96 94 O2 Delivery Room Air Room Air Room Air Room Air O2 Flow Rate 2.0 2.0 2.0 11/09/19 08:28 Pulse 69 B/P (MAP) 127/60 Intake and Output 11/08/19 11/08/19 11/09/19 15:00 23:00 07:00 Intake Total 1000 ml 120 ml Balance 1000 ml 120 ml Nutrition Consultation Dietary Evaluation: Recommendations by RD: Dietary education by RD, Increase Calorie Intake, Protein supplementation Comments: REC continue ADA/cardiac diet ,glucerna w/dinner Expected Outcomes/Goals: PO intake to meet >75% est needs- met at times, goal ongoing Interpretation of weight loss: >5% in 1 month Malnutrition Findings: Food and Nutrition Intake (Sev: <50% est energy req 5days Weight Status: Morbidly Obese BINH WELCH MD Nov 09, 2019 09:27
--- NOTE | 2019-11-09 09:52 | PDOC ---
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 prior to admit with a recently noted brain mass c/w meningioma (though w/ edema and RLE weakness) pending resection however unfortunately she has had weight loss and increasing leukocytosis with early cells on her smear concerning for hematologic process w/ poss [employer] involvement, 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 Need continued multidisciplinary discussion... h/o clotting: Restart anticoagulation when safe Thank you kindly and please do not hesitate to call with questions. OBJECTIVE Vital Signs Vital Signs Date Time Temp Pulse Resp B/P (MAP) Pulse Ox O2 Delivery O2 Flow Rate FiO2 11/09/19 08:28 69 127/60 11/09/19 07:00 97.9 69 16 127/60 (82) 94 Room Air 97.9 11/09/19 05:50 16 96 Room Air 2.0 11/09/19 05:49 16 96 Room Air 2.0 11/09/19 04:42 16 Room Air 2.0 11/09/19 03:00 97.9 71 18 110/73 (85) 96 Room Air 97.9 11/09/19 02:20 16 Room Air 2.0 11/09/19 01:46 16 Room Air 2.0 11/08/19 23:00 98.6 85 18 110/69 (83) 94 Room Air 98.6 11/08/19 22:10 16 Room Air 11/08/19 21:45 16 91 Room Air 11/08/19 21:35 16 Room Air 11/08/19 21:33 82 113/63 11/08/19 20:04 Room Air 11/08/19 19:00 98.1 82 18 113/63 (80) 91 Room Air 98.1 11/08/19 15:16 Room Air 11/08/19 15:13 Room Air 11/08/19 15:00 98.7 78 18 106/61 (76) 94 Room Air 98.7 11/08/19 12:51 71 111/73 11/08/19 11:00 97.4 71 18 111/73 (86) 96 Room Air 97.4 11/08/19 11:00 97.4 71 18 111/73 (86) 96 Room Air 97.4 I & O Intake and Output 11/09/19 07:00 Intake Total 1120 ml Balance 1120 ml Intake Oral 120 ml IV Total 1000 ml COMMENT Lab Laboratory Tests Test 11/08/19 12:18 11/08/19 17:23 11/08/19 21:36 11/09/19 07:47 Glucose (Fingerstick) 326 mg/dL (70-99) 268 mg/dL (70-99) 378 mg/dL (70-99) 317 mg/dL (70-99) Nutrition Consultation Dietary Evaluation: Recommendations by RD: Dietary education by RD, Increase Calorie Intake, Protein supplementation Comments: REC continue ADA/cardiac diet ,glucerna w/dinner Expected Outcomes/Goals: PO intake to meet >75% est needs- met at times, goal ongoing Interpretation of weight loss: >5% in 1 month Malnutrition Findings: Food and Nutrition Intake (Sev: <50% est energy req 5days Weight Status: Morbidly Obese ENEDELIA HUYNH MD Nov 09, 2019 09:52
--- NOTE | 2019-11-09 10:37 | PDOC ---
PROGRESS NOTES Chief Complaint Chief Complaint impression FRonto parietal axial mass with increasing vasogenic edema - interval CT 11/05 CHRONIC MYELOGINOUS LEUKEMIA S.p BOne marrow biopsy 11/05 Abdominal pain - with swelling - large hematoma. Acute blood loss anemia - s/p Transfused 2u 11/02 Elevated WBC - ALL vs Lymphoma Acute encephalopathy -POA, resolved HEadaches DM2 - basal bolus plus regimen of insulin Chronic Back Pain and Sciatica Rt Leg Hx PE - sees hematology, on xarelto POA Large complex collection in the right subcutaneous flank, compatible with a massive hematoma including a component of active hemorrhage. plan Decadron 4 mg IV q6h. Continue Lipitor HS. Treat medical diseases. Consulted Neurosurgery consult Oncology.. bone marrow bx 11/02 39 min pt exam, chart revieqw, > 50% of time spent with exam, chart review, pt care coordination History of Present Illness History of Present Illness Stable headache Anxious bec of all these going on and possible dx - has xanax 0.25 on file and has received 9 doses I Asked RN to ff up path results of BMA done this tuesday bec NS, heme onc following large belly bruise stable HGb 8 after BT has bateman peripheral line eating ok, sleeping ok PLAN: cont decadron IV EEG CLose neuro checks Ff up bone marrow biopsy - EARLIER ENTRY was on blood thinner PERSONNEL MONITOR WBC 20s - 30s maintain bateman Vitals Vitals Vital Signs Date Time Temp Pulse Resp B/P (MAP) Pulse Ox O2 Delivery O2 Flow Rate FiO2 11/09/19 08:28 69 127/60 11/09/19 07:00 97.9 16 94 Room Air 97.9 11/09/19 05:50 2.0 Physical Exam General: Alert, Cooperative Heart: Regular rate, Normal S1, Normal S2 Lungs: Wheezing Abdomen: Soft, Other (eechymosis improving) Extremities: No clubbing, No cyanosis, No edema, Normal pulses, No tenderness/swelling Skin: Other (Ecchymosis on right abdomen) Labs LABS Laboratory Tests Test 11/08/19 12:18 11/08/19 17:23 11/08/19 21:36 11/09/19 07:47 Glucose (Fingerstick) 326 mg/dL (70-99) 268 mg/dL (70-99) 378 mg/dL (70-99) 317 mg/dL (70-99) Assessment and Plan Assessmemt and Plan Problems Medical Problems: (1) Abdominal hemorrhage Status: Acute (2) Generalized weakness Status: Acute (3) Lactic acidosis Status: Acute (4) Leukocytosis Status: Acute Comment Review of Relevant I have reviewed the following items mustapha (where applicable) has been applied. Labs Laboratory Tests Test 11/07/19 11:40 11/07/19 16:38 11/07/19 21:19 11/08/19 07:58 Glucose (Fingerstick) 426 mg/dL (70-99) 382 mg/dL (70-99) 359 mg/dL (70-99) 348 mg/dL (70-99) Test 11/08/19 12:18 11/08/19 17:23 11/08/19 21:36 11/09/19 07:47 Glucose (Fingerstick) 326 mg/dL (70-99) 268 mg/dL (70-99) 378 mg/dL (70-99) 317 mg/dL (70-99) Laboratory Tests Test 11/08/19 12:18 11/08/19 17:23 11/08/19 21:36 11/09/19 07:47 Glucose (Fingerstick) 326 mg/dL (70-99) 268 mg/dL (70-99) 378 mg/dL (70-99) 317 mg/dL (70-99) Microbiology 11/01/19 Blood Culture - Final, Complete NO GROWTH AFTER 5 DAYS Medications Current Medications Sodium Chloride 500 ml @ 500 mls/hr 1X ONCE IV Last administered on 11/01/19at 13:00; Start 11/01/19 at 13:00; Stop 11/01/19 at 13:59; Status DC Ondansetron HCl (Zofran) 4 mg 1X ONCE IV Last administered on 11/01/19at 13:26; Start 11/01/19 at 13:00; Stop 11/01/19 at 13:13; Status DC Hydromorphone HCl (Dilaudid) 0.5 mg 1X STAT IVP Last administered on 11/01/19at 13:26; Start 11/01/19 at 12:59; Stop 11/01/19 at 13:13; Status DC Iohexol (Omnipaque 300 Mg/ml) 75 ml 1X ONCE IV Last administered on 11/01/19at 14:08; Start 11/01/19 at 13:45; Stop 11/01/19 at 13:46; Status DC Info (CONTRAST GIVEN -- Rx MONITORING) 1 each PRN DAILY PRN MC SEE COMMENTS; Start 11/01/19 at 14:00; Stop 11/03/19 at 13:59; Status DC Hydromorphone HCl (Dilaudid) 0.5 mg 1X STAT IVP Last administered on 11/01/19at 16:53; Start 11/01/19 at 16:21; Stop 11/01/19 at 16:23; Status DC Sodium Chloride 1,000 ml @ 1,000 mls/hr 1X ONCE IV Last administered on 11/01/19at 16:30; Start 11/01/19 at 16:30; Stop 11/01/19 at 17:29; Status DC Sodium Chloride 500 ml @ 500 mls/hr 1X ONCE IV Last administered on 11/01/19at 16:30; Start 11/01/19 at 16:30; Stop 11/01/19 at 17:29; Status DC Albuterol Sulfate (Ventolin Neb Soln) 2.5 mg PRN Q6HRS PRN INH SHORTNESS OF BREATH; Start 11/01/19 at 16:30 Alprazolam (Xanax) 0.25 mg PRN TID PRN PO anxiety; Start 11/01/19 at 16:30; Stop 11/01/19 at 17:11; Status DC Amlodipine Besylate (Norvasc) 5 mg DAILY PO Last administered on 11/09/19at 08:28; Start 11/02/19 at 09:00 Cyclosporine (Restasis) 1 drop BID OU Last administered on 11/09/19at 08:28; Start 11/01/19 at 21:00 Fluticasone Propionate (Flonase) 2 spray DAILY NS Last administered on 11/09/19at 08:29; Start 11/02/19 at 09:00 Lactobacillus Rhamnosus (Culturelle) 1 cap BID PO Last administered on 11/09/19at 08:28; Start 11/01/19 at 21:00 Lidocaine (Lidoderm) 1 patch DAILY TP ; Start 11/02/19 at 09:00; Stop 11/01/19 at 20:34; Status DC Metoprolol Succinate (Toprol Xl) 100 mg HS PO Last administered on 11/08/19 21:33; Start 11/01/19 at 21:00 Nystatin (Nystop) 1 raza BID TP Last administered on 11/07/19 09:00; Start 11/01/19 at 21:00 Pantoprazole Sodium (Protonix) 40 mg DAILYAC PO Last administered on 11/09/19 08:28; Start 11/02/19 at 07:30 Senna/Docusate Sodium (Senna Plus) 1 tab BID PO Last administered on 11/09/19 08:28; Start 11/01/19 at 21:00 Sucralfate (Carafate) 1 gm TIDAC PO Last administered on 11/09/19 08:28; Start 11/01/19 at 17:30 Tramadol HCl (Ultram) 50 mg PRN Q8HRS PRN PO PAIN; Start 11/01/19 at 16:30; Stop 11/01/19 at 19:43; Status DC Insulin Glargine (Lantus Syringe) 30 unit QHS SQ Last administered on 11/06/19 21:16; Start 11/01/19 at 21:00; Stop 11/07/19 at 15:56; Status DC Ondansetron HCl (Zofran Odt) 8 mg PRN Q8HRS PRN PO NAUSEA/VOMITING Last a dministered on 11/07/19 13:05; Start 11/01/19 at 17:15 Polyethylene Glycol (miraLAX PACKET) 17 gm PRN DAILY PRN PO CONSTIPATION, 1ST CHOICE Last administered on 11/09/19 08:29; Start 11/01/19 at 17:11 Atorvastatin Calcium (Lipitor) 80 mg QHS PO Last administered on 11/08/19 21:32; Start 11/01/19 at 21:00 Insulin Human Lispro (HumaLOG) 0-9 UNITS TIDAC SQ Last administered on 11/07/19 12:20; Start 11/01/19 at 16:30; Stop 11/07/19 at 15:56; Status DC Dextrose (Dextrose 50%-Water Syringe) 12.5 gm PRN Q15MIN PRN IV SEE COMMENTS; Start 11/01/19 at 16:30 Ondansetron HCl (Zofran) 4 mg PRN Q8HRS PRN IV NAUSEA/VOMITING; Start 11/01/19 at 16:30; Stop 11/02/19 at 16:29; Status DC Alprazolam (Xanax) 0.25 mg PRN TID PRN PO anxiety Last administered on 11/09/19at 08:46; Start 11/01/19 at 17:11 Miscellaneous (Lidoderm Patch Removal) 1 ea QHS MC ; Start 11/01/19 at 21:00; Stop 11/01/19 at 20:34; Status DC Ceftriaxone Sodium (Rocephin) 1 gm QHS IVP Last administered on 11/08/19at 21:32; Start 11/01/19 at 18:45 Tramadol HCl (Ultram) 50 mg PRN Q8HRS PRN PO MILD PAIN 1-3 Last administered on 11/05/19at 22:04; Start 11/01/19 at 19:45 Hydromorphone HCl (Dilaudid) 1 mg PRN Q4HRS PRN IV PAIN Last administered on 11/09/19at 10:32; Start 11/01/19 at 20:15 Lidocaine (Lidoderm) 1 patch QHS TP Last administered on 11/04/19at 21:55; Start 11/01/19 at 21:00 Miscellaneous (Lidoderm Patch Removal) 1 ea DAILY MC Last administered on 11/07/19at 09:00; Start 11/02/19 at 09:00 Albumin Human 500 ml @ 125 mls/hr 1X ONCE IV ; Start 11/02/19 at 02:00; Stop 11/02/19 at 05:59; Status Cancel Acetaminophen (Tylenol) 650 mg 1X PRN PRN PO PRE-TRANSFUSION; Start 11/02/19 at 06:45; Stop 11/03/19 at 14:16; Status DC Diphenhydramine HCl (Benadryl Oral Elixir) 12.5 mg 1X PRN PRN PO PRE- TRANSFUSION; Start 11/02/19 at 06:45; Stop 11/03/19 at 14:16; Status DC Diphenhydramine HCl (Benadryl) 25 mg PRN 1X PRN PO PRE-TRANSFUSION; Start 11/02/19 at 06:45; Stop 11/03/19 at 14:16; Status DC Lactulose (LACTULOSE 300ML for RECTAL) 200 gm Q6HRS LA Last administered on 11/02/19at 18:00; Start 11/02/19 at 18:00; Stop 11/04/19 at 14:44; Status DC Sodium Chloride 1,000 ml @ 100 mls/hr Q10H IV Last administered on 11/09/19at 08:27; Start 11/02/19 at 12:00 Lactulose (Lactulose) 20 gm PRN DAILY PRN PO CONSTIPATION, 2ND CHOICE; Start 11/04/19 at 14:45 Oxycodone HCl (Roxicodone) 5 mg PRN Q6HRS PRN PO MODERATE TO SEVERE PAIN Last administered on 11/09/19at 04:42; Start 11/04/19 at 14:45 Lidocaine HCl (Buffered Lidocaine 1%) 3 ml STK-MED ONCE .ROUTE ; Start 11/05/19 at 08:13; Stop 11/05/19 at 08:13; Status DC Lidocaine HCl (Buffered Lidocaine 1%) 3 ml STK-MED ONCE .ROUTE ; Start 11/05/19 at 08:14; Stop 11/05/19 at 08:14; Status DC Midazolam HCl (Versed) 2 mg STK-MED ONCE .ROUTE ; Start 11/05/19 at 08:40; Stop 11/05/19 at 08:40; Status DC Fentanyl Citrate (Fentanyl 2ml Vial) 100 mcg STK-MED ONCE .ROUTE ; Start 11/05/19 at 08:40; Stop 11/05/19 at 08:41; Status DC Lidocaine HCl (Buffered Lidocaine 1%) 3 ml 1X ONCE IJ Last administered on 11/05/19at 08:45; Start 11/05/19 at 08:45; Stop 11/05/19 at 08:50; Status DC Midazolam HCl (Versed) 2 mg 1X ONCE IV Last administered on 11/05/19at 08:45; Start 11/05/19 at 08:45; Stop 11/05/19 at 08:50; Status DC Fentanyl Citrate (Fentanyl 2ml Vial) 100 mcg 1X ONCE IV Last administered on 11/05/19at 08:45; Start 11/05/19 at 08:45; Stop 11/05/19 at 08:50; Status DC Dexamethasone Sodium Phosphate (Decadron) 4 mg Q6HRS IVP Last administered on 11/09/19at 05:50; Start 11/06/19 at 09:00 Insulin Glargine (Lantus Syringe) 40 unit QHS SQ Last administered on 11/08/19at 21:44; Start 11/07/19 at 21:00 Insulin Human Lispro (HumaLOG) 10 units TIDAC SQ Last administered on 11/09/19at 08:36; Start 11/07/19 at 16:30 Insulin Human Lispro (HumaLOG) 0-9 UNITS TIDWMEALS SQ Last administered on 11/09/19at 08:37; Start 11/07/19 at 17:00 Active Scripts Active Enoxaparin Sodium 120 Mg/0.8 Ml Disp.syrin 120 Mg SQ Q12HR 28 Days Dexamethasone 4 Mg Tablet 4 Mg PO BID 14 Days Culturelle (Lactobacillus Rhamnosus Gg) 1 Each Cap.sprink 1 Cap PO BID 30 Days Amlodipine Besylate 5 Mg Tablet 5 Mg PO DAILY 30 Days Cefdinir 300 Mg Capsule 300 Mg PO BID 10 Days Reported Cymbalta (Duloxetine Hcl) 60 Mg Capsule.dr 1 Cap PO BID Lyrica (Pregabalin) 150 Mg Capsule 1 Cap PO BID Novolog (Insulin Aspart) 100 Unit/1 Ml Cartridge 10-45 Unit SQ QIDACHS Levemir (Insulin Detemir) 100 Unit/1 Ml Vial 30 Unit SQ HS Linzess (Linaclotide) 145 Mcg Capsule 145 Mcg PO PRN PRN Crestor (Rosuvastatin Calcium) 40 Mg Tablet 0.5 Tab PO DAILY Polyethylene Glycol 3350 2,500 Gm Powder 17 Gm PO PRN PRN Xanax (Alprazolam) 1 Mg Tablet 1 Tab PO TID Restasis (Cyclosporine) 1 Each Droperette 1 Drop EACHEYE BID Proair Hfa Inhaler (Albuterol Sulfate) 8.5 Gm Hfa.aer.ad 1 Puff INH PRN Q6HRS PRN Tramadol Hcl 50 Mg Tablet 1 Tab PO PRN Q8HRS PRN Ondansetron Hcl 4 Mg Tablet 2 Tab PO PRN Q8HRS PRN Nystatin 15 Gm Powder 1 Raza TP BID Lidocaine PATCH (Lidocaine) 1 Each Adh..patch 1 Each TP DAILY Fluticasone Propionate Nasal Bob White (Fluticasone Propionate) 16 Gm Bob White.susp 2 Bob White NS DAILY Percocet 5-325 Mg Tablet (Oxycodone/Acetaminophen) 1 Each Tablet 1-2 Tab PO Q4-6HRS PRN LAST DOSE AT NEXT DOSE Senna-Docusate Sodium Tablet (Sennosides/Docusate Sodium) 1 Each Tablet 1 Each PO BID LAST DOSE THIS AM NEXT DOSE TONIGHT Robaxin-750 (Methocarbamol) 750 Mg Tablet 1 Tab PO TID LAST DOSE AT 1400 (2PM) MAY HAVE THE NEXT DOSE AT 10 PM Protonix (Pantoprazole Sodium) 40 Mg Tablet.dr 40 Mg PO DAILY LST DOSE THIS AM NEXT DOSE TOMORROW AM Carafate (Sucralfate) 1 Gm Tablet 1 Tab PO TID Meds not given this hospital admission. May resume home medications as approved by Physician. MAY TAKE WHEN AVAILABLE Xarelto (Rivaroxaban) 15 Mg Tablet 15 Mg PO DAILY Meds not given this hospital admission. May resume home medications as approved by Physician. MAY RESUME WHEN AVAILABLE Metoprolol Succinate ( Xl ) (Metoprolol Succinate) 100 Mg Tab.er.24h 100 Mg PO HS LAST DOSE THIS AM NEXT DOSE TOMORROW AM Vitals/I & O Vital Sign - Last 24 Hours 11/08/19 11/08/19 11/08/19 11/08/19 11:00 11:00 12:51 15:00 Temp 97.4 97.4 98.7 97.4 97.4 98.7 Pulse 71 71 71 78 Resp 18 18 18 B/P (MAP) 111/73 (86) 111/73 (86) 111/73 106/61 (76) Pulse Ox 96 96 94 O2 Delivery Room Air Room Air Room Air O2 Flow Rate 11/08/19 11/08/19 11/08/19 11/08/19 15:13 15:16 19:00 20:04 Temp 98.1 98.1 Pulse 82 Resp 18 B/P (MAP) 113/63 (80) Pulse Ox 91 O2 Delivery Room Air Room Air Room Air Room Air 11/08/19 11/08/19 11/08/19 11/08/19 21:33 21:35 21:45 22:10 Pulse 82 Resp 16 16 16 B/P (MAP) 113/63 Pulse Ox 91 O2 Delivery Room Air Room Air Room Air 11/08/19 11/09/19 11/09/19 11/09/19 23:00 01:46 02:20 03:00 Temp 98.6 97.9 98.6 97.9 Pulse 85 71 Resp 18 16 16 18 B/P (MAP) 110/69 (83) 110/73 (85) Pulse Ox 94 96 O2 Delivery Room Air Room Air Room Air Room Air O2 Flow Rate 2.0 2.0 11/09/19 11/09/19 11/09/19 11/09/19 04:42 05:49 05:50 07:00 Temp 97.9 97.9 Pulse 69 Resp 16 16 16 16 B/P (MAP) 127/60 (82) Pulse Ox 96 96 94 O2 Delivery Room Air Room Air Room Air Room Air O2 Flow Rate 2.0 2.0 2.0 11/09/19 08:28 Pulse 69 B/P (MAP) 127/60 Intake and Output 11/08/19 11/08/19 11/09/19 15:00 23:00 07:00 Intake Total 1000 ml 120 ml Balance 1000 ml 120 ml Nutrition Consultation Dietary Evaluation: Recommendations by RD: Dietary education by RD, Increase Calorie Intake, Protein supplementation Comments: REC continue ADA/cardiac diet ,glucerna w/dinner Expected Outcomes/Goals: PO intake to meet >75% est needs- met at times, goal ongoing Interpretation of weight loss: >5% in 1 month Malnutrition Findings: Food and Nutrition Intake (Sev: <50% est energy req 5days Weight Status: Morbidly Obese LUANNE OWUSU MD Nov 09, 2019 10:37
[2019-11-09 11:00] VITALS: BP 114/58
--- NOTE | 2019-11-09 11:51 | NUR ---
Pt's BS 379 at this time. This RN notified Dr. Lubin. Orders received to give 19 units Humalog now and recheck in 1 hr. Will continue to monitor.
--- NOTE | 2019-11-09 12:03 | NUR ---
This RN nonadministered pt's scheduled dose of Humalog 10 units and sliding scale due to Dr. Lubin giving new orders.
[2019-11-09] MEDS ORDERED: INSULIN LISPRO 300 UNITS/3 ML VIAL. SQ ONE ×2 (12:15→13:30)
[2019-11-09 12:20] LABS: BASO # 0.1 x10^3/uL (0.0-0.2); BASO % 0 % (0-3); EOS % 0 % (0-3); HEMATOCRIT 27.6 % (36.0-47.0); HEMOGLOBIN 8.8 g/dL (12.0-15.5); LYMPH # 1.7 x10^3/uL (1.0-4.8); LYMPH % 4 % (24-48); MEAN CORPUSCULAR HEMOGLOBIN 29 pg (25-35); MEAN CORPUSCULAR HGB CONC 32 g/dL (31-37); MEAN CORPUSCULAR VOLUME 92 fL (79-100); MONO # 1.1 x10^3/uL (0.0-1.1); MONO % 3 % (0-9); NEUT # 42.9 x10^3/uL (1.8-7.7); NEUT % 94 % (31-73); PLATELET COUNT 468 x10^3/uL (140-400); RED BLOOD COUNT 3.01 x10^6/uL (3.50-5.40); RED CELL DISTRIBUTION WIDTH 16.5 % (11.5-14.5)
[2019-11-09 12:28] LABS: WHITE BLOOD COUNT 45.8 x10^3/uL (4.0-11.0)
--- NOTE | 2019-11-09 13:18 | NUR ---
Glucose recheck performed. Pt's blood sugar 371. Dr. Lubin notified of this update. Orders received for 5 units Humalog now and recheck in 1 hour. Will administer and monitor this pt.
--- NOTE | 2019-11-09 13:44 | NUR ---
SW following. Discussed with RN. RN advised pt requested to see SW for assistance with some paperwork. SW met with pt, pt has jury duty notice for 12/03/2019, stating to be excused a medical note is needed from a medical professional. LORRAINE discussed with Dr. Lubin, he is agreeable to sign a letter, requested SW type the letter. SW awaiting Dr. Lubin's signature in order to fax to the court (fax: [phone]). Pt needs to complete the questionnaire before letter can be faxed. Sw showed typed letter to pt, pt agreeable to the contents of the letter, and gives permission for letter to be faxed. Pt has new cancer dx, surgery next week. SW will continue to follow.
--- NOTE | 2019-11-09 14:31 | PDOC ---
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 Vasogenic edema with 4 mm left to right midline shift Headaches. Cognitive impairment. Staring spells. CML. HTN. HLD. DM. KRISS. ADHD. PE Hx. Leukocytosis. Obesity. RECOMMENDATIONS/PLAN: Pain control for headache. Continue Decadron 4 mg IV q6h. Continue Lipitor HS. Treat medical diseases. Consulted Neurosurgery and Oncology. Surgery planned for next week. Weight reduction. OT/PT. EEG on 11/06/19: normal. History of Present Illness This is a 49-year-old female patient with history of CAD, Diabetes, High Cholesterol, Hypertension, Kidney Stones, Ovarian Cyst, Pneumonia, pulmonary embolism, tachycardia was brought to the ER of [facility] with complaints of headaches and presyncope. She stated that she has been having chronic headaches in her left side frontal and temporal head for about 2 years and right LE weakness that gradually became worse and she was unable to walk. She was revealed a brain tumor in 09/2019, but her headaches and right LE weakness progressed. She has nausea but no vomiting. 11/09/19: still has some headaches. Right L:E weakness improved. Past Medical History Cardiovascular: HTN, Hyperlipidemia, Other (tachycardia) Pulmonary: Asthma, Pulmonary embolus ( DVT, on Xaral[place]), Other (sleep apnea) CENTRAL NERVOUS SYSTEM: Periperal neuropathy, Other (right L5 radiculopathy) GI: Peptic Ulcer disease, Other (pancreatitis, hiatal hernia) Psych: Anxiety, Depression, Other (ADHD) Musculoskeletal: low back pain Renal/: Other (nephrolithiasis) Endocrine: Diabetes Past Surgical History Appendectomy, Cholecystectomy, , Hysterectomy (fbrioids), Other (lumbar laminectomy) Family History Cancer, CAD Social History ex smoker, no alcohol, disabled Allergies Coded Allergies: azithromycin (Verified Allergy, Intermediate, 10/12/19) codeine (Verified Allergy, Intermediate, 05/06/17) morphine (Verified Allergy, Intermediate, 05/06/17) ROS Negative for fever, chills, weight loss, shortness of breath, chest pain, indigestion, hematochezia, melena, and dysuria. Full 14-point review of systems is negative. MEDICATIONS: Refer to MAR PHYSICAL EXAMINATION: General appearance in subacute distress. HEENT: Normocephalic and nontraumatic. Eyes, nose, ears, and throat are unremarkable. Hearing decrease. Neck is supple. No lymphadenopathy. No Crepitus. Cardiovascular: S1, S2, regular rate and rhythm. Pulmonary: Clear to auscultation bilaterally. Abdomen: Bowel sounds are positive. Abdomen is soft, nontender, and nondistended. Extremities: No rash, lesions, or edema. No restriction of range of motion NEUROLOGICAL EXAMINATION: Alert. Oriented to time, place and person. PERRL. EOMI. CN: no focal findings. Muscle tone: within normal. Muscle strength: 4 right UE, 3-4 right LE, 4+ left side. DTR: 1 Plantar reflex: Flexor response bilaterally Gait: Able to walk a few steps. Sensory exam: seemed mildly decreased to light touch in right LE below the knee. No cerebellar signs elicited. F-T-N test fine. Objective Objective Vital Signs Date Time Temp Pulse Resp B/P (MAP) Pulse Ox O2 Delivery O2 Flow Rate FiO2 11/09/19 11:00 98.6 82 16 114/58 (76) 94 Room Air 98.6 11/09/19 05:50 2.0 Intake and Output 11/09/19 07:00 Intake Total 1120 ml Balance 1120 ml Intake Oral 120 ml IV Total 1000 ml Vitals Signs Vitals VS - Last 72 Hours, by Label Date Time Temp Pulse Resp B/P (MAP) Pulse Ox O2 Delivery O2 Flow Rate FiO2 11/09/19 11:00 98.6 82 16 114/58 (76) 94 Room Air 98.6 11/09/19 08:28 69 127/60 11/09/19 08:00 Room Air 11/09/19 07:00 97.9 69 16 127/60 (82) 94 Room Air 97.9 11/09/19 05:50 16 96 Room Air 2.0 11/09/19 05:49 16 96 Room Air 2.0 11/09/19 04:42 16 Room Air 2.0 11/09/19 03:00 97.9 71 18 110/73 (85) 96 Room Air 97.9 11/09/19 02:20 16 Room Air 2.0 11/09/19 01:46 16 Room Air 2.0 11/08/19 23:00 98.6 85 18 110/69 (83) 94 Room Air 98.6 11/08/19 22:10 16 Room Air 11/08/19 21:45 16 91 Room Air 11/08/19 21:35 16 Room Air 11/08/19 21:33 82 113/63 11/08/19 20:04 Room Air 11/08/19 19:00 98.1 82 18 113/63 (80) 91 Room Air 98.1 11/08/19 15:16 Room Air 11/08/19 15:13 Room Air 11/08/19 15:00 98.7 78 18 106/61 (76) 94 Room Air 98.7 11/08/19 12:51 71 111/73 11/08/19 11:00 97.4 71 18 111/73 (86) 96 Room Air 97.4 11/08/19 11:00 97.4 71 18 111/73 (86) 96 Room Air 97.4 11/08/19 08:00 Room Air 11/08/19 07:00 97.6 66 18 101/64 (76) 92 Room Air 97.6 Laboratory Laboratory Laboratory Tests Test 11/08/19 17:23 11/08/19 21:36 11/09/19 07:47 11/09/19 11:40 Glucose (Fingerstick) 268 mg/dL (70-99) 378 mg/dL (70-99) 317 mg/dL (70-99) White Blood Count 45.8 x10^3/uL (4.0-11.0) Red Blood Count 3.01 x10^6/uL (3.50-5.40) Hemoglobin 8.8 g/dL (12.0-15.5) Hematocrit 27.6 % (36.0-47.0) Mean Corpuscular Volume 92 fL (79-100) Mean Corpuscular Hemoglobin 29 pg (25-35) Mean Corpuscular Hemoglobin Concent 32 g/dL (31-37) Red Cell Distribution Width 16.5 % (11.5-14.5) Platelet Count 468 x10^3/uL (140-400) Neutrophils (%) (Auto) 94 % (31-73) Lymphocytes (%) (Auto) 4 % (24-48) Monocytes (%) (Auto) 3 % (0-9) Eosinophils (%) (Auto) 0 % (0-3) Basophils (%) (Auto) 0 % (0-3) Neutrophils # (Auto) 42.9 x10^3/uL (1.8-7.7) Lymphocytes # (Auto) 1.7 x10^3/uL (1.0-4.8) Monocytes # (Auto) 1.1 x10^3/uL (0.0-1.1) Eosinophils # (Auto) 0.0 x10^3/uL (0.0-0.7) Basophils # (Auto) 0.1 x10^3/uL (0.0-0.2) Hepatitis A IgM Antibody Nonreactive (Nonreactive) Hepatitis B Surface Antigen Nonreactive (Nonreactive) Hepatitis B Surface Antibody Nonreactive Hepatitis B Core Total Antibody Nonreactive (Nonreactive) Hepatitis B Core IgM Antibody Nonreactive (Nonreactive) Hepatitis C IgG Antibody Nonreactive (Nonreactive) Test 11/09/19 11:48 11/09/19 13:10 Glucose (Fingerstick) 379 mg/dL (70-99) 371 mg/dL (70-99) Microbiology 11/01/19 Blood Culture - Final, Complete NO GROWTH AFTER 5 DAYS Medication Medications Current Medications Insulin Human Lispro (HumaLOG) 5 units 1X ONCE SQ Last administered on 11/09/19at 13:52; Start 11/09/19 at 13:30; Stop 11/09/19 at 13:31; Status DC Insulin Human Lispro (HumaLOG) 19 units 1X ONCE SQ Last administered on 11/09/19at 12:41; Start 11/09/19 at 12:15; Stop 11/09/19 at 12:16; Status DC Comment Review of Relevant I have reviewed the following items mustapha (where applicable) has been applied. JOHNATHON OGLESBY MD Nov 09, 2019 14:31
[2019-11-09 15:00] VITALS: BP 97/60
--- NOTE | 2019-11-09 15:49 | NUR ---
SW faxed Jury excuse letter to Court. Pt is provided with letter, copies and fax confirmation page. SW encouraged pt to f/u with jury duty department to make sure fax is received. Pt reports she has more paperwork to send them and verbalized understanding. Pt denies other needs.
[2019-11-09] MEDS ORDERED: SPRYCEL PO SCH (16:30)
--- NOTE | 2019-11-09 17:27 | NUR ---
This RN spoke to Dr. Clark in regards to pt's surgery. He stated it would be November 12. This RN also spoke to Dr. Yousif, who wanted chemotherapy to be held until after surgery takes place. This RN will pass along.
[2019-11-09 19:00] VITALS: BP 136/76
[2019-11-09] MEDS: ATORVASTATIN CALCIUM 40 MG TABLET. PO SCH (21:28)
[2019-11-09] MEDS: METOPROLOL SUCC 24HR ER 100 MG TAB.ER.24H. PO SCH (21:29)
[2019-11-09] MEDS: LIDOCAINE (700MG/PATCH) PATCH. TP SCH (21:29)
[2019-11-09] MEDS: cefTRIAXone IV Push 1 GM VIAL. IVP SCH (21:29)
[2019-11-09] MEDS: INSULIN GLARGINE SYRINGE. SQ SCH (21:44)
[2019-11-09] MEDS: levETIRAcetam 500 MG TABLET PO SCH (21:45)
[2019-11-09 23:00] VITALS: BP 119/68
[2019-11-10] MEDS: DEXAMETHASONE SOD PHOS 4 MG/ML VIAL IVP SCH ×5 (00:02→23:30)
[2019-11-10] MEDS: HYDROmorphone 2 MG/ML VIAL IV PRN ×6 (01:52→23:30)
[2019-11-10] MEDS: IV NORMAL SALINE 1000ML BAG 1,000 ML IV SCH ×4 (04:01→23:45)
[2019-11-10] MEDS: oxyCODONE IR 5 MG TABLET PO PRN ×3 (04:09→18:20)
[2019-11-10] MEDS: PANTOPRAZOLE 40 MG TABLET.DR. PO SCH (06:10)
[2019-11-10] MEDS: SUCRALFATE 1 GM TABLET. PO SCH ×3 (06:11→17:17)
[2019-11-10 07:59] VITALS: BP 113/58
[2019-11-10] MEDS: cycloSPORINE 0.05% OPHTH DROPERETTE. OU SCH ×2 (08:23→21:49)
[2019-11-10] MEDS: SENNOSIDES/DOCUSATE 8.6/50MG TABLET. PO SCH ×2 (08:24→21:50)
[2019-11-10] MEDS: amLODIPine BESYLATE 5 MG TABLET PO SCH (08:24)
[2019-11-10] MEDS: levETIRAcetam 500 MG TABLET PO SCH ×2 (08:24→21:49)
[2019-11-10] MEDS: PATCH REMOVAL. MC SCH (08:25)
[2019-11-10] MEDS: ALPRAZolam 0.25 MG TABLET PO PRN ×2 (08:25→23:29)
[2019-11-10] MEDS: INSULIN LISPRO 300 UNITS/3 ML VIAL. SQ SCH ×6 (08:38→17:25)
[2019-11-10] MEDS: POLYETHYLENE GLYCOL 3350 17 GM PACKET. PO PRN (08:41)
[2019-11-10] MEDS: NYSTATIN TOPICAL POWDER 15GM BOTTLE. TP SCH ×2 (08:57→21:00)
[2019-11-10] MEDS: FLUTICASONE 50MCG/NASAL SPRAY 16GM BOTTLE. NS SCH (08:57)
--- NOTE | 2019-11-10 10:02 | PDOC ---
PROGRESS NOTES Subjective Subjective Denies acute changes. ROS - stable VYAS, denies cp,soa,emesis Objective Objective Vital Signs Date Time Temp Pulse Resp B/P (MAP) Pulse Ox O2 Delivery O2 Flow Rate FiO2 11/10/19 08:24 68 113/58 11/10/19 07:59 98.0 16 98 Nasal Cannula 2.0 98.0 Intake and Output 11/10/19 07:00 Intake Total 2680 ml Output Total 5475 ml Balance -2795 ml Intake Oral 680 ml IV Total 2000 ml Output Urine Total 5475 ml Physical Exam Physical Exam AAOx4, NAD, LLANES stable weakness, sensation stable LT Assessment Assessment Problems Medical Problems: (1) Abdominal hemorrhage Status: Acute (2) Generalized weakness Status: Acute (3) Lactic acidosis Status: Acute (4) Leukocytosis Status: Acute Plan Plan of Care -brain mass, CML -discussed situation with team -plan for craniotomy Monday 11/12 Comment Review of Relevant I have reviewed the following items mustapha (where applicable) has been applied. Labs Laboratory Tests Test 11/08/19 12:18 11/08/19 17:23 11/08/19 21:36 11/09/19 07:47 Glucose (Fingerstick) 326 mg/dL (70-99) 268 mg/dL (70-99) 378 mg/dL (70-99) 317 mg/dL (70-99) Test 11/09/19 11:40 11/09/19 11:48 11/09/19 13:10 11/09/19 17:09 White Blood Count 45.8 x10^3/uL (4.0-11.0) Red Blood Count 3.01 x10^6/uL (3.50-5.40) Hemoglobin 8.8 g/dL (12.0-15.5) Hematocrit 27.6 % (36.0-47.0) Mean Corpuscular Volume 92 fL (79-100) Mean Corpuscular Hemoglobin 29 pg (25-35) Mean Corpuscular Hemoglobin Concent 32 g/dL (31-37) Red Cell Distribution Width 16.5 % (11.5-14.5) Platelet Count 468 x10^3/uL (140-400) Neutrophils (%) (Auto) 94 % (31-73) Lymphocytes (%) (Auto) 4 % (24-48) Monocytes (%) (Auto) 3 % (0-9) Eosinophils (%) (Auto) 0 % (0-3) Basophils (%) (Auto) 0 % (0-3) Neutrophils # (Auto) 42.9 x10^3/uL (1.8-7.7) Lymphocytes # (Auto) 1.7 x10^3/uL (1.0-4.8) Monocytes # (Auto) 1.1 x10^3/uL (0.0-1.1) Eosinophils # (Auto) 0.0 x10^3/uL (0.0-0.7) Basophils # (Auto) 0.1 x10^3/uL (0.0-0.2) Hepatitis A IgM Antibody Nonreactive (Nonreactive) Hepatitis B Surface Antigen Nonreactive (Nonreactive) Hepatitis B Surface Antibody Nonreactive Hepatitis B Core Total Antibody Nonreactive (Nonreactive) Hepatitis B Core IgM Antibody Nonreactive (Nonreactive) Hepatitis C IgG Antibody Nonreactive (Nonreactive) Glucose (Fingerstick) 379 mg/dL (70-99) 371 mg/dL (70-99) 233 mg/dL (70-99) Test 11/09/19 21:06 11/10/19 07:25 Glucose (Fingerstick) 300 mg/dL (70-99) 340 mg/dL (70-99) Laboratory Tests Test 11/09/19 11:40 11/09/19 11:48 11/09/19 13:10 11/09/19 17:09 White Blood Count 45.8 x10^3/uL (4.0-11.0) Red Blood Count 3.01 x10^6/uL (3.50-5.40) Hemoglobin 8.8 g/dL (12.0-15.5) Hematocrit 27.6 % (36.0-47.0) Mean Corpuscular Volume 92 fL (79-100) Mean Corpuscular Hemoglobin 29 pg (25-35) Mean Corpuscular Hemoglobin Concent 32 g/dL (31-37) Red Cell Distribution Width 16.5 % (11.5-14.5) Platelet Count 468 x10^3/uL (140-400) Neutrophils (%) (Auto) 94 % (31-73) Lymphocytes (%) (Auto) 4 % (24-48) Monocytes (%) (Auto) 3 % (0-9) Eosinophils (%) (Auto) 0 % (0-3) Basophils (%) (Auto) 0 % (0-3) Neutrophils # (Auto) 42.9 x10^3/uL (1.8-7.7) Lymphocytes # (Auto) 1.7 x10^3/uL (1.0-4.8) Monocytes # (Auto) 1.1 x10^3/uL (0.0-1.1) Eosinophils # (Auto) 0.0 x10^3/uL (0.0-0.7) Basophils # (Auto) 0.1 x10^3/uL (0.0-0.2) Hepatitis A IgM Antibody Nonreactive (Nonreactive) Hepatitis B Surface Antigen Nonreactive (Nonreactive) Hepatitis B Surface Antibody Nonreactive Hepatitis B Core Total Antibody Nonreactive (Nonreactive) Hepatitis B Core IgM Antibody Nonreactive (Nonreactive) Hepatitis C IgG Antibody Nonreactive (Nonreactive) Glucose (Fingerstick) 379 mg/dL (70-99) 371 mg/dL (70-99) 233 mg/dL (70-99) Test 11/09/19 21:06 11/10/19 07:25 Glucose (Fingerstick) 300 mg/dL (70-99) 340 mg/dL (70-99) Microbiology 11/01/19 Blood Culture - Final, Complete NO GROWTH AFTER 5 DAYS Medications Current Medications Sodium Chloride 500 ml @ 500 mls/hr 1X ONCE IV Last administered on 11/01/19at 13:00; Start 11/01/19 at 13:00; Stop 11/01/19 at 13:59; Status DC Ondansetron HCl (Zofran) 4 mg 1X ONCE IV Last administered on 11/01/19at 13:26; Start 11/01/19 at 13:00; Stop 11/01/19 at 13:13; Status DC Hydromorphone HCl (Dilaudid) 0.5 mg 1X STAT IVP Last administered on 11/01/19at 13:26; Start 11/01/19 at 12:59; Stop 11/01/19 at 13:13; Status DC Iohexol (Omnipaque 300 Mg/ml) 75 ml 1X ONCE IV Last administered on 11/01/19at 14:08; Start 11/01/19 at 13:45; Stop 11/01/19 at 13:46; Status DC Info (CONTRAST GIVEN -- Rx MONITORING) 1 each PRN DAILY PRN MC SEE COMMENTS; Start 11/01/19 at 14:00; Stop 11/03/19 at 13:59; Status DC Hydromorphone HCl (Dilaudid) 0.5 mg 1X STAT IVP Last administered on 11/01/19at 16:53; Start 11/01/19 at 16:21; Stop 11/01/19 at 16:23; Status DC Sodium Chloride 1,000 ml @ 1,000 mls/hr 1X ONCE IV Last administered on 11/01/19at 16:30; Start 11/01/19 at 16:30; Stop 11/01/19 at 17:29; Status DC Sodium Chloride 500 ml @ 500 mls/hr 1X ONCE IV Last administered on 11/01/19at 16:30; Start 11/01/19 at 16:30; Stop 11/01/19 at 17:29; Status DC Albuterol Sulfate (Ventolin Neb Soln) 2.5 mg PRN Q6HRS PRN INH SHORTNESS OF BREATH; Start 11/01/19 at 16:30; Status Cancel Alprazolam (Xanax) 0.25 mg PRN TID PRN PO anxiety; Start 11/01/19 at 16:30; Stop 11/01/19 at 17:11; Status DC Amlodipine Besylate (Norvasc) 5 mg DAILY PO Last administered on 11/10/19at 08:24; Start 11/02/19 at 09:00 Cyclosporine (Restasis) 1 drop BID OU Last administered on 11/10/19at 08:23; Start 11/01/19 at 21:00 Fluticasone Propionate (Flonase) 2 spray DAILY NS Last administered on 11/10/19at 08:57; Start 11/02/19 at 09:00 Lactobacillus Rhamnosus (Culturelle) 1 cap BID PO Last administered on 11/09/19at 08:28; Start 11/01/19 at 21:00; Stop 11/09/19 at 16:57; Status DC Lidocaine (Lidoderm) 1 patch DAILY TP ; Start 11/02/19 at 09:00; Stop 11/01/19 at 20:34; Status DC Metoprolol Succinate (Toprol Xl) 100 mg HS PO Last administered on 11/09/19at 21:29; Start 11/01/19 at 21:00 Nystatin (Nystop) 1 raza BID TP Last administered on 11/10/19at 08:57; Start 11/01/19 at 21:00 Pantoprazole Sodium (Protonix) 40 mg DAILYAC PO Last administered on 11/09/19at 08:28; Start 11/02/19 at 07:30; Stop 11/09/19 at 16:54; Status DC Senna/Docusate Sodium (Senna Plus) 1 tab BID PO Last administered on 11/10/19at 08:24; Start 11/01/19 at 21:00 Sucralfate (Carafate) 1 gm TIDAC PO Last administered on 11/10/19at 06:11; Start 11/01/19 at 17:30 Tramadol HCl (Ultram) 50 mg PRN Q8HRS PRN PO PAIN; Start 11/01/19 at 16:30; Stop 11/01/19 at 19:43; Status DC Insulin Glargine (Lantus Syringe) 30 unit QHS SQ Last administered on 11/06/19at 21:16; Start 11/01/19 at 21:00; Stop 11/07/19 at 15:56; Status DC Ondansetron HCl (Zofran Odt) 8 mg PRN Q8HRS PRN PO NAUSEA/VOMITING Last administered on 11/07/19at 13:05; Start 11/01/19 at 17:15 Polyethylene Glycol (miraLAX PACKET) 17 gm PRN DAILY PRN PO CONSTIPATION, 1ST CHOICE Last administered on 11/10/19at 08:41; Start 11/01/19 at 17:11 Atorvastatin Calcium (Lipitor) 80 mg QHS PO Last administered on 11/09/19at 21:28; Start 11/01/19 at 21:00 Insulin Human Lispro (HumaLOG) 0-9 UNITS TIDAC SQ Last administered on 11/07/19at 12:20; Start 11/01/19 at 16:30; Stop 11/07/19 at 15:56; Status DC Dextrose (Dextrose 50%-Water Syringe) 12.5 gm PRN Q15MIN PRN IV SEE COMMENTS; Start 11/01/19 at 16:30 Ondansetron HCl (Zofran) 4 mg PRN Q8HRS PRN IV NAUSEA/VOMITING; Start 11/01/19 at 16:30; Stop 11/02/19 at 16:29; Status DC Alprazolam (Xanax) 0.25 mg PRN TID PRN PO anxiety Last administered on 11/10/19at 08:25; Start 11/01/19 at 17:11 Miscellaneous (Lidoderm Patch Removal) 1 ea QHS MC ; Start 11/01/19 at 21:00; Stop 11/01/19 at 20:34; Status DC Ceftriaxone Sodium (Rocephin) 1 gm QHS IVP Last administered on 11/09/19at 21:29; Start 11/01/19 at 18:45 Tramadol HCl (Ultram) 50 mg PRN Q8HRS PRN PO MILD PAIN 1-3 Last administered on 11/05/19at 22:04; Start 11/01/19 at 19:45 Hydromorphone HCl (Dilaudid) 1 mg PRN Q4HRS PRN IV PAIN Last administered on 11/10/19at 06:04; Start 11/01/19 at 20:15 Lidocaine (Lidoderm) 1 patch QHS TP Last administered on 11/04/19at 21:55; Start 11/01/19 at 21:00 Miscellaneous (Lidoderm Patch Removal) 1 ea DAILY MC Last administered on 11/07/19at 09:00; Start 11/02/19 at 09:00 Albumin Human 500 ml @ 125 mls/hr 1X ONCE IV ; Start 11/02/19 at 02:00; Stop 11/02/19 at 05:59; Status Cancel Acetaminophen (Tylenol) 650 mg 1X PRN PRN PO PRE-TRANSFUSION; Start 11/02/19 at 06:45; Stop 11/03/19 at 14:16; Status DC Diphenhydramine HCl (Benadryl Oral Elixir) 12.5 mg 1X PRN PRN PO PRE- TRANSFUSION; Start 11/02/19 at 06:45; Stop 11/03/19 at 14:16; Status DC Diphenhydramine HCl (Benadryl) 25 mg PRN 1X PRN PO PRE-TRANSFUSION; Start 11/02/19 at 06:45; Stop 11/03/19 at 14:16; Status DC Lactulose (LACTULOSE 300ML for RECTAL) 200 gm Q6HRS OR Last administered on 11/02/19at 18:00; Start 11/02/19 at 18:00; Stop 11/04/19 at 14:44; Status DC Sodium Chloride 1,000 ml @ 100 mls/hr Q10H IV Last administered on 11/10/19at 04:01; Start 11/02/19 at 12:00 Lactulose (Lactulose) 20 gm PRN DAILY PRN PO CONSTIPATION, 2ND CHOICE; Start 11/04/19 at 14:45 Oxycodone HCl (Roxicodone) 5 mg PRN Q6HRS PRN PO MODERATE TO SEVERE PAIN Last administered on 11/10/19at 04:09; Start 11/04/19 at 14:45 Lidocaine HCl (Buffered Lidocaine 1%) 3 ml STK-MED ONCE .ROUTE ; Start 11/05/19 at 08:13; Stop 11/05/19 at 08:13; Status DC Lidocaine HCl (Buffered Lidocaine 1%) 3 ml STK-MED ONCE .ROUTE ; Start 11/05/19 at 08:14; Stop 11/05/19 at 08:14; Status DC Midazolam HCl (Versed) 2 mg STK-MED ONCE .ROUTE ; Start 11/05/19 at 08:40; Stop 11/05/19 at 08:40; Status DC Fentanyl Citrate (Fentanyl 2ml Vial) 100 mcg STK-MED ONCE .ROUTE ; Start 11/05/19 at 08:40; Stop 11/05/19 at 08:41; Status DC Lidocaine HCl (Buffered Lidocaine 1%) 3 ml 1X ONCE IJ Last administered on 11/05/19at 08:45; Start 11/05/19 at 08:45; Stop 11/05/19 at 08:50; Status DC Midazolam HCl (Versed) 2 mg 1X ONCE IV Last administered on 11/05/19at 08:45; Start 11/05/19 at 08:45; Stop 11/05/19 at 08:50; Status DC Fentanyl Citrate (Fentanyl 2ml Vial) 100 mcg 1X ONCE IV Last administered on 11/05/19at 08:45; Start 11/05/19 at 08:45; Stop 11/05/19 at 08:50; Status DC Dexamethasone Sodium Phosphate (Decadron) 4 mg Q6HRS IVP Last administered on 11/10/19at 06:03; Start 11/06/19 at 09:00 Insulin Glargine (Lantus Syringe) 40 unit QHS SQ Last administered on 11/09/19at 21:44; Start 11/07/19 at 21:00 Insulin Human Lispro (HumaLOG) 10 units TIDAC SQ Last administered on 11/10/19at 08:39; Start 11/07/19 at 16:30 Insulin Human Lispro (HumaLOG) 0-9 UNITS TIDWMEALS SQ Last administered on 11/10/19at 08:38; Start 11/07/19 at 17:00 Insulin Human Lispro (HumaLOG) 19 units 1X ONCE SQ Last administered on 11/09/19at 12:41; Start 11/09/19 at 12:15; Stop 11/09/19 at 12:16; Status DC Insulin Human Lispro (HumaLOG) 5 units 1X ONCE SQ Last administered on 11/09/19at 13:52; Start 11/09/19 at 13:30; Stop 11/09/19 at 13:31; Status DC Non-Formulary Medication 1 ea DAILY PO ; Start 11/09/19 at 16:30; Status Cancel Ondansetron HCl (Zofran) 4 mg PRN Q6HRS PRN IV NAUSEA/VOMITING; Start 11/12/19 at 07:00; Stop 11/13/19 at 06:59 Fentanyl Citrate (Fentanyl 2ml Vial) 25 mcg PRN Q5MIN PRN IV MILD PAIN 1-3; Start 11/12/19 at 07:00; Stop 11/13/19 at 06:59 Fentanyl Citrate (Fentanyl 2ml Vial) 50 mcg PRN Q5MIN PRN IV MODERATE TO SEVERE PAIN; Start 11/12/19 at 07:00; Stop 11/13/19 at 06:59 Morphine Sulfate (Morphine Sulfate) 1 mg PRN Q10MIN PRN IV SEVERE PAIN 7-10; Start 11/12/19 at 07:00; Stop 11/09/19 at 17:30; Status DC Ringer's Solution 1,000 ml @ 30 mls/hr Q24H IV ; Start 11/12/19 at 07:00; Stop 11/12/19 at 18:59 Lidocaine HCl (Xylocaine-Mpf 1% 2ml Vial) 2 ml PRN 1X PRN ID PRIOR TO IV START; Start 11/12/19 at 07:00; Stop 11/13/19 at 06:59 Hydromorphone HCl (Dilaudid) 0.5 mg PRN Q10MIN PRN IV SEV PAIN, Second choice; Start 11/12/19 at 07:00; Stop 11/13/19 at 06:59 Prochlorperazine Edisylate (Compazine) 5 mg PACU PRN PRN IV NAUSEA, MRX1; Start 11/12/19 at 07:00; Stop 11/13/19 at 06:59 Pantoprazole Sodium (Protonix) 40 mg DAILYAC PO Last administered on 11/10/19at 06:10; Start 11/09/19 at 18:30 Levetiracetam (Keppra) 500 mg BID PO Last administered on 11/10/19at 08:24; Start 11/09/19 at 21:00 Non-Formulary Medication 1 ea DAILY PO ; Start 11/12/19 at 09:00 Active Scripts Active Enoxaparin Sodium 120 Mg/0.8 Ml Disp.syrin 120 Mg SQ Q12HR 28 Days Dexamethasone 4 Mg Tablet 4 Mg PO BID 14 Days Culturelle (Lactobacillus Rhamnosus Gg) 1 Each Cap.sprink 1 Cap PO BID 30 Days Amlodipine Besylate 5 Mg Tablet 5 Mg PO DAILY 30 Days Cefdinir 300 Mg Capsule 300 Mg PO BID 10 Days Reported Cymbalta (Duloxetine Hcl) 60 Mg Capsule.dr 1 Cap PO BID Lyrica (Pregabalin) 150 Mg Capsule 1 Cap PO BID Novolog (Insulin Aspart) 100 Unit/1 Ml Cartridge 10-45 Unit SQ QIDACHS Levemir (Insulin Detemir) 100 Unit/1 Ml Vial 30 Unit SQ HS Linzess (Linaclotide) 145 Mcg Capsule 145 Mcg PO PRN PRN Crestor (Rosuvastatin Calcium) 40 Mg Tablet 0.5 Tab PO DAILY Polyethylene Glycol 3350 2,500 Gm Powder 17 Gm PO PRN PRN Xanax (Alprazolam) 1 Mg Tablet 1 Tab PO TID Restasis (Cyclosporine) 1 Each Droperette 1 Drop EACHEYE BID Proair Hfa Inhaler (Albuterol Sulfate) 8.5 Gm Hfa.aer.ad 1 Puff INH PRN Q6HRS PRN Tramadol Hcl 50 Mg Tablet 1 Tab PO PRN Q8HRS PRN Ondansetron Hcl 4 Mg Tablet 2 Tab PO PRN Q8HRS PRN Nystatin 15 Gm Powder 1 [place] TP BID Lidocaine PATCH (Lidocaine) 1 Each Adh..patch 1 Each TP DAILY Fluticasone Propionate Nasal [place] (Fluticasone Propionate) 16 Gm [place].susp 2 [place] NS DAILY Percocet 5-325 Mg Tablet (Oxycodone/Acetaminophen) 1 Each Tablet 1-2 Tab PO Q4-6HRS PRN LAST DOSE AT NEXT DOSE Senna-Docusate Sodium Tablet (Sennosides/Docusate Sodium) 1 Each Tablet 1 Each PO BID LAST DOSE THIS AM NEXT DOSE TONIGHT Robaxin-750 (Methocarbamol) 750 Mg Tablet 1 Tab PO TID LAST DOSE AT 1400 (2PM) MAY HAVE THE NEXT DOSE AT 10 PM Protonix (Pantoprazole Sodium) 40 Mg Tablet.dr 40 Mg PO DAILY LST DOSE THIS AM NEXT DOSE TOMORROW AM Carafate (Sucralfate) 1 Gm Tablet 1 Tab PO TID Meds not given this hospital admission. May resume home medications as approved by Physician. MAY TAKE WHEN AVAILABLE Xarelto (Rivaroxaban) 15 Mg Tablet 15 Mg PO DAILY Meds not given this hospital admission. May resume home medications as approved by Physician. MAY RESUME WHEN AVAILABLE Metoprolol Succinate ( Xl ) (Metoprolol Succinate) 100 Mg Tab.er.24h 100 Mg PO HS LAST DOSE THIS AM NEXT DOSE TOMORROW AM Vitals/I & O Vital Sign - Last 24 Hours 11/09/19 11/09/19 11/09/19 11/09/19 11:00 14:59 15:00 19:00 Temp 98.6 98.2 99.0 98.6 98.2 99.0 Pulse 82 88 85 Resp 16 16 20 B/P (MAP) 114/58 (76) 97/60 (72) 136/76 (96) Pulse Ox 94 98 98 O2 Delivery Room Air Nasal Cannula Room Air Room Air 12/11/09/19 11/09/19 11/09/19 19:14 20:00 21:29 21:33 Pulse 85 B/P (MAP) 136/76 Pulse Ox 98 98 O2 Delivery Room Air Room Air Room Air 11/09/19 11/09/19 11/10/19 11/10/19 22:03 23:00 01:52 02:22 Temp 98.6 98.6 Pulse 82 Resp 20 B/P (MAP) 119/68 (85) Pulse Ox 98 96 96 96 O2 Delivery Room Air Room Air Nasal Cannula Nasal Cannula O2 Flow Rate 2.0 2.0 11/10/19 11/10/19 11/10/19 11/10/19 04:09 05:12 06:04 06:43 Pulse Ox 96 96 96 96 O2 Delivery Nasal Cannula Nasal Cannula Nasal Cannula Nasal Cannula O2 Flow Rate 2.0 2.0 2.0 2.0 11/10/19 11/10/19 07:59 08:24 Temp 98.0 98.0 Pulse 68 68 Resp 16 B/P (MAP) 113/58 (76) 113/58 Pulse Ox 98 O2 Delivery Nasal Cannula O2 Flow Rate 2.0 Intake and Output 11/09/19 11/09/19 11/10/19 15:00 23:00 07:00 Intake Total 1000 ml 1240 ml 440 ml Output Total 1500 ml 1475 ml 2500 ml Balance -500 ml -235 ml -2060 ml Nutrition Consultation Dietary Evaluation: Recommendations by RD: Dietary education by RD, Increase Calorie Intake, Protein supplementation Comments: REC continue ADA/cardiac diet ,glucerna Expected Outcomes/Goals: PO intake to meet >75% est needs- met at times, goal ongoing Interpretation of weight loss: >5% in 1 month Malnutrition Findings: Food and Nutrition Intake (Sev: <50% est energy req 5days Weight Status: Morbidly Obese BINH WELCH MD Nov 10, 2019 10:02
--- NOTE | 2019-11-10 10:51 | PDOC ---
PROGRESS NOTES Chief Complaint Chief Complaint impression FRonto parietal axial mass with increasing vasogenic edema - interval CT 11/05 CHRONIC MYELOGINOUS LEUKEMIA S.p BOne marrow biopsy 11/05 Abdominal pain - with swelling - large hematoma. Acute blood loss anemia - s/p Transfused 2u 11/02 Elevated WBC - ALL vs Lymphoma Acute encephalopathy -POA, resolved HEadaches DM2 - basal bolus plus regimen of insulin Chronic Back Pain and Sciatica Rt Leg Hx PE - sees hematology, on xarelto POA Large complex collection in the right subcutaneous flank, compatible with a massive hematoma including a component of active hemorrhage. plan Decadron 4 mg IV q6h. Continue Lipitor HS. Treat medical diseases. Consulted Neurosurgery consult Oncology.. bone marrow bx 11/02 -plan for craniotomy Monday 11/12 36 min pt exam, chart revieqw, > 50% of time spent with exam, chart review, pt care coordination History of Present Illness History of Present Illness Stable headache heme onc following large belly bruise stable HGb 8 after BT [place]eman peripheral line eating ok, sleeping ok PLAN: cont decadron IV EEG CLose neuro checks Ff up bone marrow biopsy - Vitals Vitals Vital Signs Date Time Temp Pulse Resp B/P (MAP) Pulse Ox O2 Delivery O2 Flow Rate FiO2 11/10/19 10:35 Room Air 11/10/19 08:24 68 113/58 11/10/19 07:59 98.0 16 98 2.0 98.0 Physical Exam General: Alert, Cooperative Heart: Regular rate, Normal S1, Normal S2 Lungs: Wheezing Abdomen: Soft, Other (eechymosis improving) Extremities: No clubbing, No cyanosis, No edema, Normal pulses, No tenderness/swelling Skin: Other (Ecchymosis on right abdomen) Labs LABS Pulmonary Valve PV Peak Velocity 103.0cm/s Tricuspid Valve TR P. Velocity 293cm/s TR Peak Gr. 34mmHg LEFT VENTRICLE The left ventricle is normal size. There is mild concentric left ventricular hypertrophy. The left ventricular systolic function is normal. The ejection fraction is estimated at 60-65%. There is normal LV segmental wall motion. Transmitral Doppler flow pattern is Grade I-abnormal relaxation pattern. No left ventricle thrombus noted on this study. There is no ventricular septal defect visualized. There is no left ventricular aneurysm. There is no mass noted in the left ventricle. RIGHT VENTRICLE The right ventricle is normal size. The right ventricular systolic function is normal. ATRIA The left atrium is mildly dilated. 4.3cm The right atrium size is normal. The interatrial septum is intact with no evidence for an atrial septal defect or patent foramen ovale as noted on 2-D or Doppler imaging. AORTIC VALVE The aortic valve is normal in structure and function. Doppler and Color Flow revealed no significant aortic regurgitation. There is no significant aortic valvular stenosis. There is no aortic valvular vegetation. MITRAL VALVE The mitral valve is normal in structure and function. There is no evidence of mitral valve prolapse. There is no mitral valve stenosis. Doppler and Color Flow revealed no mitral valve regurgitation noted. TRICUSPID VALVE The tricuspid valve is normal in structure and function. Doppler and Color Flow revealed no tricuspid valve regurgitation noted. There is trace tricuspid valve prolapse or vegetation. There is no tricuspid valve stenosis. PULMONIC VALVE The pulmonary valve is normal in structure and function. Doppler and Color Flow revealed no pulmonic valvular regurgitation. There is no pulmonic valvular stenosis. GREAT VESSELS The aortic root is mildly enlarged. The ascending aorta is Moderately dilated. The IVC was not visualized. PERICARDIAL EFFUSION There is no pleural effusion. There is no evidence of significant pericardial effusion. Critical Notification Critical Value: No <Conclusion> The left ventricular systolic function is normal. The ejection fraction is estimated at 60-65%. There is normal LV segmental wall motion. Transmitral Doppler flow pattern is Grade I-abnormal relaxation pattern. There is no evidence of significant pericardial effusion. Signed by : Aryan Feliz, Electronically Approved : 11/27/2017 14:02:50 Laboratory Tests Test 11/09/19 11:40 11/09/19 11:48 11/09/19 13:10 11/09/19 17:09 White Blood Count 45.8 x10^3/uL (4.0-11.0) Red Blood Count 3.01 x10^6/uL (3.50-5.40) Hemoglobin 8.8 g/dL (12.0-15.5) Hematocrit 27.6 % (36.0-47.0) Mean Corpuscular Volume 92 fL (79-100) Mean Corpuscular Hemoglobin 29 pg (25-35) Mean Corpuscular Hemoglobin Concent 32 g/dL (31-37) Red Cell Distribution Width 16.5 % (11.5-14.5) Platelet Count 468 x10^3/uL (140-400) Neutrophils (%) (Auto) 94 % (31-73) Lymphocytes (%) (Auto) 4 % (24-48) Monocytes (%) (Auto) 3 % (0-9) Eosinophils (%) (Auto) 0 % (0-3) Basophils (%) (Auto) 0 % (0-3) Neutrophils # (Auto) 42.9 x10^3/uL (1.8-7.7) Lymphocytes # (Auto) 1.7 x10^3/uL (1.0-4.8) Monocytes # (Auto) 1.1 x10^3/uL (0.0-1.1) Eosinophils # (Auto) 0.0 x10^3/uL (0.0-0.7) Basophils # (Auto) 0.1 x10^3/uL (0.0-0.2) Hepatitis A IgM Antibody Nonreactive (Nonreactive) Hepatitis B Surface Antigen Nonreactive (Nonreactive) Hepatitis B Surface Antibody Nonreactive Hepatitis B Core Total Antibody Nonreactive (Nonreactive) Hepatitis B Core IgM Antibody Nonreactive (Nonreactive) Hepatitis C IgG Antibody Nonreactive (Nonreactive) Glucose (Fingerstick) 379 mg/dL (70-99) 371 mg/dL (70-99) 233 mg/dL (70-99) Test 11/09/19 21:06 11/10/19 07:25 Glucose (Fingerstick) 300 mg/dL (70-99) 340 mg/dL (70-99) Assessment and Plan Assessmemt and Plan Problems Medical Problems: (1) Abdominal hemorrhage Status: Acute (2) Generalized weakness Status: Acute (3) Lactic acidosis Status: Acute (4) Leukocytosis Status: Acute Comment Review of Relevant I have reviewed the following items mustapha (where applicable) has been applied. Labs Laboratory Tests Test 11/08/19 12:18 11/08/19 17:23 11/08/19 21:36 11/09/19 07:47 Glucose (Fingerstick) 326 mg/dL (70-99) 268 mg/dL (70-99) 378 mg/dL (70-99) 317 mg/dL (70-99) Test 11/09/19 11:40 11/09/19 11:48 11/09/19 13:10 11/09/19 17:09 White Blood Count 45.8 x10^3/uL (4.0-11.0) Red Blood Count 3.01 x10^6/uL (3.50-5.40) Hemoglobin 8.8 g/dL (12.0-15.5) Hematocrit 27.6 % (36.0-47.0) Mean Corpuscular Volume 92 fL (79-100) Mean Corpuscular Hemoglobin 29 pg (25-35) Mean Corpuscular Hemoglobin Concent 32 g/dL (31-37) Red Cell Distribution Width 16.5 % (11.5-14.5) Platelet Count 468 x10^3/uL (140-400) Neutrophils (%) (Auto) 94 % (31-73) Lymphocytes (%) (Auto) 4 % (24-48) Monocytes (%) (Auto) 3 % (0-9) Eosinophils (%) (Auto) 0 % (0-3) Basophils (%) (Auto) 0 % (0-3) Neutrophils # (Auto) 42.9 x10^3/uL (1.8-7.7) Lymphocytes # (Auto) 1.7 x10^3/uL (1.0-4.8) Monocytes # (Auto) 1.1 x10^3/uL (0.0-1.1) Eosinophils # (Auto) 0.0 x10^3/uL (0.0-0.7) Basophils # (Auto) 0.1 x10^3/uL (0.0-0.2) Hepatitis A IgM Antibody Nonreactive (Nonreactive) Hepatitis B Surface Antigen Nonreactive (Nonreactive) Hepatitis B Surface Antibody Nonreactive Hepatitis B Core Total Antibody Nonreactive (Nonreactive) Hepatitis B Core IgM Antibody Nonreactive (Nonreactive) Hepatitis C IgG Antibody Nonreactive (Nonreactive) Glucose (Fingerstick) 379 mg/dL (70-99) 371 mg/dL (70-99) 233 mg/dL (70-99) Test 11/09/19 21:06 11/10/19 07:25 Glucose (Fingerstick) 300 mg/dL (70-99) 340 mg/dL (70-99) Laboratory Tests Test 11/09/19 11:40 11/09/19 11:48 11/09/19 13:10 11/09/19 17:09 White Blood Count 45.8 x10^3/uL (4.0-11.0) Red Blood Count 3.01 x10^6/uL (3.50-5.40) Hemoglobin 8.8 g/dL (12.0-15.5) Hematocrit 27.6 % (36.0-47.0) Mean Corpuscular Volume 92 fL (79-100) Mean Corpuscular Hemoglobin 29 pg (25-35) Mean Corpuscular Hemoglobin Concent 32 g/dL (31-37) Red Cell Distribution Width 16.5 % (11.5-14.5) Platelet Count 468 x10^3/uL (140-400) Neutrophils (%) (Auto) 94 % (31-73) Lymphocytes (%) (Auto) 4 % (24-48) Monocytes (%) (Auto) 3 % (0-9) Eosinophils (%) (Auto) 0 % (0-3) Basophils (%) (Auto) 0 % (0-3) Neutrophils # (Auto) 42.9 x10^3/uL (1.8-7.7) Lymphocytes # (Auto) 1.7 x10^3/uL (1.0-4.8) Monocytes # (Auto) 1.1 x10^3/uL (0.0-1.1) Eosinophils # (Auto) 0.0 x10^3/uL (0.0-0.7) Basophils # (Auto) 0.1 x10^3/uL (0.0-0.2) Hepatitis A IgM Antibody Nonreactive (Nonreactive) Hepatitis B Surface Antigen Nonreactive (Nonreactive) Hepatitis B Surface Antibody Nonreactive Hepatitis B Core Total Antibody Nonreactive (Nonreactive) Hepatitis B Core IgM Antibody Nonreactive (Nonreactive) Hepatitis C IgG Antibody Nonreactive (Nonreactive) Glucose (Fingerstick) 379 mg/dL (70-99) 371 mg/dL (70-99) 233 mg/dL (70-99) Test 11/09/19 21:06 11/10/19 07:25 Glucose (Fingerstick) 300 mg/dL (70-99) 340 mg/dL (70-99) Microbiology 11/01/19 Blood Culture - Final, Complete NO GROWTH AFTER 5 DAYS Medications Current Medications Sodium Chloride 500 ml @ 500 mls/hr 1X ONCE IV Last administered on 11/01/19at 13:00; Start 11/01/19 at 13:00; Stop 11/01/19 at 13:59; Status DC Ondansetron HCl (Zofran) 4 mg 1X ONCE IV Last administered on 11/01/19at 13:26; Start 11/01/19 at 13:00; Stop 11/01/19 at 13:13; Status DC Hydromorphone HCl (Dilaudid) 0.5 mg 1X STAT IVP Last administered on 11/01/19at 13:26; Start 11/01/19 at 12:59; Stop 11/01/19 at 13:13; Status DC Iohexol (Omnipaque 300 Mg/ml) 75 ml 1X ONCE IV Last administered on 11/01/19at 14:08; Start 11/01/19 at 13:45; Stop 11/01/19 at 13:46; Status DC Info (CONTRAST GIVEN -- Rx MONITORING) 1 each PRN DAILY PRN MC SEE COMMENTS; Start 11/01/19 at 14:00; Stop 11/03/19 at 13:59; Status DC Hydromorphone HCl (Dilaudid) 0.5 mg 1X STAT IVP Last administered on 11/01/19at 16:53; Start 11/01/19 at 16:21; Stop 11/01/19 at 16:23; Status DC Sodium Chloride 1,000 ml @ 1,000 mls/hr 1X ONCE IV Last administered on 11/01/19at 16:30; Start 11/01/19 at 16:30; Stop 11/01/19 at 17:29; Status DC Sodium Chloride 500 ml @ 500 mls/hr 1X ONCE IV Last administered on 11/01/19at 16:30; Start 11/01/19 at 16:30; Stop 11/01/19 at 17:29; Status DC Albuterol Sulfate (Ventolin Neb Soln) 2.5 mg PRN Q6HRS PRN INH SHORTNESS OF BREATH; Start 11/01/19 at 16:30; Status Cancel Alprazolam (Xanax) 0.25 mg PRN TID PRN PO anxiety; Start 11/01/19 at 16:30; Stop 11/01/19 at 17:11; Status DC Amlodipine Besylate (Norvasc) 5 mg DAILY PO Last administered on 11/10/19 08:24; Start 11/02/19 at 09:00 Cyclosporine (Restasis) 1 drop BID OU Last administered on 11/10/19 08:23; Start 11/01/19 at 21:00 Fluticasone Propionate (Flonase) 2 spray DAILY NS Last administered on 11/10/19 08:57; Start 11/02/19 at 09:00 Lactobacillus Rhamnosus (Culturelle) 1 cap BID PO Last administered on 11/09/19 08:28; Start 11/01/19 at 21:00; Stop 11/09/19 at 16:57; Status DC Lidocaine (Lidoderm) 1 patch DAILY TP ; Start 11/02/19 at 09:00; Stop 11/01/19 at 20:34; Status DC Metoprolol Succinate (Toprol Xl) 100 mg HS PO Last administered on 11/09/19 21:29; Start 11/01/19 at 21:00 Nystatin (Nystop) 1 raza BID TP Last administered on 11/10/19 08:57; Start 11/01/19 at 21:00 Pantoprazole Sodium (Protonix) 40 mg DAILYAC PO Last administered on 11/09/19 08:28; Start 11/02/19 at 07:30; Stop 11/09/19 at 16:54; Status DC Senna/Docusate Sodium (Senna Plus) 1 tab BID PO Last administered on 11/10/19 08:24; Start 11/01/19 at 21:00 Sucralfate (Carafate) 1 gm TIDAC PO Last administered on 11/10/19at 06:11; Start 11/01/19 at 17:30 Tramadol HCl (Ultram) 50 mg PRN Q8HRS PRN PO PAIN; Start 11/01/19 at 16:30; Stop 11/01/19 at 19:43; Status DC Insulin Glargine (Lantus Syringe) 30 unit QHS SQ Last administered on 11/06/19 21:16; Start 11/01/19 at 21:00; Stop 11/07/19 at 15:56; Status DC Ondansetron HCl (Zofran Odt) 8 mg PRN Q8HRS PRN PO NAUSEA/VOMITING Last administered on 12/18/19at 13:05; Start 11/01/19 at 17:15 Polyethylene Glycol (miraLAX PACKET) 17 gm PRN DAILY PRN PO CONSTIPATION, 1ST CHOICE Last administered on 11/10/19 08:41; Start 11/01/19 at 17:11 Atorvastatin Calcium (Lipitor) 80 mg QHS PO Last administered on 11/09/19 21:28; Start 11/01/19 at 21:00 Insulin Human Lispro (HumaLOG) 0-9 UNITS TIDAC SQ Last administered on 11/07/19at 12:20; Start 11/01/19 at 16:30; Stop 11/07/19 at 15:56; Status DC Dextrose (Dextrose 50%-Water Syringe) 12.5 gm PRN Q15MIN PRN IV SEE COMMENTS; Start 11/01/19 at 16:30 Ondansetron HCl (Zofran) 4 mg PRN Q8HRS PRN IV NAUSEA/VOMITING; Start 11/01/19 at 16:30; Stop 11/02/19 at 16:29; Status DC Alprazolam (Xanax) 0.25 mg PRN TID PRN PO anxiety Last administered on 11/10/19 08:25; Start 11/01/19 at 17:11 Miscellaneous (Lidoderm Patch Removal) 1 ea QHS MC ; Start 11/01/19 at 21:00; Stop 11/01/19 at 20:34; Status DC Ceftriaxone Sodium (Rocephin) 1 gm QHS IVP Last administered on 11/09/19at 21:29; Start 11/01/19 at 18:45 Tramadol HCl (Ultram) 50 mg PRN Q8HRS PRN PO MILD PAIN 1-3 Last administered on 11/05/19 22:04; Start 11/01/19 at 19:45 Hydromorphone HCl (Dilaudid) 1 mg PRN Q4HRS PRN IV PAIN Last administered on 11/10/19at 10:35; Start 11/01/19 at 20:15 Lidocaine (Lidoderm) 1 patch QHS TP Last administered on 11/04/19 21:55; Start 11/01/19 at 21:00 Miscellaneous (Lidoderm Patch Removal) 1 ea DAILY MC Last administered on 11/07/19 09:00; Start 11/02/19 at 09:00 Albumin Human 500 ml @ 125 mls/hr 1X ONCE IV ; Start 11/02/19 at 02:00; Stop 11/02/19 at 05:59; Status Cancel Acetaminophen (Tylenol) 650 mg 1X PRN PRN PO PRE-TRANSFUSION; Start 11/02/19 at 06:45; Stop 11/03/19 at 14:16; Status DC Diphenhydramine HCl (Benadryl Oral Elixir) 12.5 mg 1X PRN PRN PO PRE- TRANSFUSION; Start 11/02/19 at 06:45; Stop 11/03/19 at 14:16; Status DC Diphenhydramine HCl (Benadryl) 25 mg PRN 1X PRN PO PRE-TRANSFUSION; Start 11/02/19 at 06:45; Stop 11/03/19 at 14:16; Status DC Lactulose (LACTULOSE 300ML for RECTAL) 200 gm Q6HRS NV Last administered on 11/02/19at 18:00; Start 11/02/19 at 18:00; Stop 11/04/19 at 14:44; Status DC Sodium Chloride 1,000 ml @ 100 mls/hr Q10H IV Last administered on 11/10/19at 04:01; Start 11/02/19 at 12:00 Lactulose (Lactulose) 20 gm PRN DAILY PRN PO CONSTIPATION, 2ND CHOICE; Start 11/04/19 at 14:45 Oxycodone HCl (Roxicodone) 5 mg PRN Q6HRS PRN PO MODERATE TO SEVERE PAIN Last administered on 11/10/19at 04:09; Start 11/04/19 at 14:45 Lidocaine HCl (Buffered Lidocaine 1%) 3 ml STK-MED ONCE .ROUTE ; Start 11/05/19 at 08:13; Stop 11/05/19 at 08:13; Status DC Lidocaine HCl (Buffered Lidocaine 1%) 3 ml STK-MED ONCE .ROUTE ; Start 11/05/19 at 08:14; Stop 11/05/19 at 08:14; Status DC Midazolam HCl (Versed) 2 mg STK-MED ONCE .ROUTE ; Start 11/05/19 at 08:40; Stop 11/05/19 at 08:40; Status DC Fentanyl Citrate (Fentanyl 2ml Vial) 100 mcg STK-MED ONCE .ROUTE ; Start 1 01/06/19 at 08:40; Stop 11/05/19 at 08:41; Status DC Lidocaine HCl (Buffered Lidocaine 1%) 3 ml 1X ONCE IJ Last administered on 11/05/19at 08:45; Start 11/05/19 at 08:45; Stop 11/05/19 at 08:50; Status DC Midazolam HCl (Versed) 2 mg 1X ONCE IV Last administered on 11/05/19at 08:45; Start 11/05/19 at 08:45; Stop 11/05/19 at 08:50; Status DC Fentanyl Citrate (Fentanyl 2ml Vial) 100 mcg 1X ONCE IV Last administered on 11/05/19at 08:45; Start 11/05/19 at 08:45; Stop 11/05/19 at 08:50; Status DC Dexamethasone Sodium Phosphate (Decadron) 4 mg Q6HRS IVP Last administered on 11/10/19at 06:03; Start 11/06/19 at 09:00 Insulin Glargine (Lantus Syringe) 40 unit QHS SQ Last administered on 11/09/19at 21:44; Start 11/07/19 at 21:00 Insulin Human Lispro (HumaLOG) 10 units TIDAC SQ Last administered on 11/10/19at 08:39; Start 11/07/19 at 16:30 Insulin Human Lispro (HumaLOG) 0-9 UNITS TIDWMEALS SQ Last administered on 11/10/19at 08:38; Start 11/07/19 at 17:00 Insulin Human Lispro (HumaLOG) 19 units 1X ONCE SQ Last administered on 11/09/19at 12:41; Start 11/09/19 at 12:15; Stop 11/09/19 at 12:16; Status DC Insulin Human Lispro (HumaLOG) 5 units 1X ONCE SQ Last administered on 11/09/19at 13:52; Start 11/09/19 at 13:30; Stop 11/09/19 at 13:31; Status DC Non-Formulary Medication 1 ea DAILY PO ; Start 11/09/19 at 16:30; Status Cancel Ondansetron HCl (Zofran) 4 mg PRN Q6HRS PRN IV NAUSEA/VOMITING; Start 11/12/19 at 07:00; Stop 11/13/19 at 06:59 Fentanyl Citrate (Fentanyl 2ml Vial) 25 mcg PRN Q5MIN PRN IV MILD PAIN 1-3; Start 11/12/19 at 07:00; Stop 11/13/19 at 06:59 Fentanyl Citrate (Fentanyl 2ml Vial) 50 mcg PRN Q5MIN PRN IV MODERATE TO SEVERE PAIN; Start 11/12/19 at 07:00; Stop 11/13/19 at 06:59 Morphine Sulfate (Morphine Sulfate) 1 mg PRN Q10MIN PRN IV SEVERE PAIN 7-10; Start 11/12/19 at 07:00; Stop 11/09/19 at 17:30; Status DC Ringer's Solution 1,000 ml @ 30 mls/hr Q24H IV ; Start 11/12/19 at 07:00; Stop 11/12/19 at 18:59 Lidocaine HCl (Xylocaine-Mpf 1% 2ml Vial) 2 ml PRN 1X PRN ID PRIOR TO IV START; Start 11/12/19 at 07:00; Stop 11/13/19 at 06:59 Hydromorphone HCl (Dilaudid) 0.5 mg PRN Q10MIN PRN IV SEV PAIN, Second choice; Start 11/12/19 at 07:00; Stop 11/13/19 at 06:59 Prochlorperazine Edisylate (Compazine) 5 mg PACU PRN PRN IV NAUSEA, MRX1; Start 11/12/19 at 07:00; Stop 11/13/19 at 06:59 Pantoprazole Sodium (Protonix) 40 mg DAILYAC PO Last administered on 11/10/19at 06:10; Start 11/09/19 at 18:30 Levetiracetam (Keppra) 500 mg BID PO Last administered on 11/10/19at 08:24; Start 11/09/19 at 21:00 Non-Formulary Medication 1 ea DAILY PO ; Start 11/12/19 at 09:00 Active Scripts Active Enoxaparin Sodium 120 Mg/0.8 Ml Disp.syrin 120 Mg SQ Q12HR 28 Days Dexamethasone 4 Mg Tablet 4 Mg PO BID 14 Days Culturelle (Lactobacillus Rhamnosus Gg) 1 Each Cap.sprink 1 Cap PO BID 30 Days Amlodipine Besylate 5 Mg Tablet 5 Mg PO DAILY 30 Days Cefdinir 300 Mg Capsule 300 Mg PO BID 10 Days Reported Cymbalta (Duloxetine Hcl) 60 Mg Capsule. 1 Cap PO BID Lyrica (Pregabalin) 150 Mg Capsule 1 Cap PO BID Novolog (Insulin Aspart) 100 Unit/1 Ml Cartridge 10-45 Unit SQ QIDACHS Levemir (Insulin Detemir) 100 Unit/1 Ml Vial 30 Unit SQ HS Linzess (Linaclotide) 145 Mcg Capsule 145 Mcg PO PRN PRN Crestor (Rosuvastatin Calcium) 40 Mg Tablet 0.5 Tab PO DAILY Polyethylene Glycol 3350 2,500 Gm Powder 17 Gm PO PRN PRN Xanax (Alprazolam) 1 Mg Tablet 1 Tab PO TID Restasis (Cyclosporine) 1 Each Droperette 1 Drop EACHEYE BID Proair Hfa Inhaler (Albuterol Sulfate) 8.5 Gm Hfa.aer.ad 1 Puff INH PRN Q6HRS PRN Tramadol Hcl 50 Mg Tablet 1 Tab PO PRN Q8HRS PRN Ondansetron Hcl 4 Mg Tablet 2 Tab PO PRN Q8HRS PRN Nystatin 15 Gm Powder 1 [place] TP BID Lidocaine PATCH (Lidocaine) 1 Each Adh..patch 1 Each TP DAILY Fluticasone Propionate Nasal [place] (Fluticasone Propionate) 16 Gm [place].susp 2 [place] NS DAILY Percocet 5-325 Mg Tablet (Oxycodone/Acetaminophen) 1 Each Tablet 1-2 Tab PO Q4-6HRS PRN LAST DOSE AT NEXT DOSE Senna-Docusate Sodium Tablet (Sennosides/Docusate Sodium) 1 Each Tablet 1 Each PO BID LAST DOSE THIS AM NEXT DOSE TONIGHT Robaxin-750 (Methocarbamol) 750 Mg Tablet 1 Tab PO TID LAST DOSE AT 1400 (2PM) MAY HAVE THE NEXT DOSE AT 10 PM Protonix (Pantoprazole Sodium) 40 Mg Tablet.dr 40 Mg PO DAILY LST DOSE THIS AM NEXT DOSE TOMORROW AM Carafate (Sucralfate) 1 Gm Tablet 1 Tab PO TID Meds not given this hospital admission. May resume home medications as approved by Physician. MAY TAKE WHEN AVAILABLE Xarelto (Rivaroxaban) 15 Mg Tablet 15 Mg PO DAILY Meds not given this hospital admission. May resume home medications as approved by Physician. MAY RESUME WHEN AVAILABLE Metoprolol Succinate ( Xl ) (Metoprolol Succinate) 100 Mg Tab.er.24h 100 Mg PO HS LAST DOSE THIS AM NEXT DOSE TOMORROW AM Vitals/I & O Vital Sign - Last 24 Hours 11/09/19 11/09/19 11/09/19 11/09/19 11:00 14:59 15:00 19:00 Temp 98.6 98.2 99.0 98.6 98.2 99.0 Pulse 82 88 85 Resp 16 16 20 B/P (MAP) 114/58 (76) 97/60 (72) 136/76 (96) Pulse Ox 94 98 98 O2 Delivery Room Air Nasal Cannula Room Air Room Air 11/09/19 11/09/19 11/09/19 11/09/19 19:14 20:00 21:29 21:33 Pulse 85 B/P (MAP) 136/76 Pulse Ox 98 98 O2 Delivery Room Air Room Air Room Air 11/09/19 11/09/19 11/10/19 11/10/19 22:03 23:00 01:52 02:22 Temp 98.6 98.6 Pulse 82 Resp 20 B/P (MAP) 119/68 (85) Pulse Ox 98 96 96 96 O2 Delivery Room Air Room Air Nasal Cannula Nasal Cannula O2 Flow Rate 2.0 2.0 11/10/19 11/10/19 11/10/19 11/10/19 04:09 05:12 06:04 06:43 Pulse Ox 96 96 96 96 O2 Delivery Nasal Cannula Nasal Cannula Nasal Cannula Nasal Cannula O2 Flow Rate 2.0 2.0 2.0 2.0 11/10/19 11/10/19 11/10/19 07:59 08:24 10:35 Temp 98.0 98.0 Pulse 68 68 Resp 16 B/P (MAP) 113/58 (76) 113/58 Pulse Ox 98 O2 Delivery Nasal Cannula Room Air O2 Flow Rate 2.0 Intake and Output 11/09/19 11/09/19 11/10/19 15:00 23:00 07:00 Intake Total 1000 ml 1240 ml 440 ml Output Total 1500 ml 1475 ml 2500 ml Balance -500 ml -235 ml -2060 ml Nutrition Consultation Dietary Evaluation: Recommendations by RD: Dietary education by RD, Increase Calorie Intake, Protein supplementation Comments: REC continue ADA/cardiac diet ,glucerna Expected Outcomes/Goals: PO intake to meet >75% est needs- met at times, goal ongoing Interpretation of weight loss: >5% in 1 month Malnutrition Findings: Food and Nutrition Intake (Sev: <50% est energy req 5days Weight Status: Morbidly Obese LUANNE OWUSU MD Nov 10, 2019 10:51
[2019-11-10 11:59] VITALS: BP 123/69
--- NOTE | 2019-11-10 12:13 | NUR ---
Patients lunch blood sugar was 359, Dr. Lubin on unit was made aware. Received orders to give her 10 units of Humalog scheduled, plus sliding scale of 9 units of Humalog and add 8 units of Humalog 1X since it was over 350. Recheck in 1 hour. Will continue to monitor patient.
[2019-11-10] MEDS ORDERED: INSULIN LISPRO 300 UNITS/3 ML VIAL. SQ ONE (12:15)
[2019-11-10 13:50] LABS: BILIRUBIN,URINE NEGATIVE (NEG); CLARITY,URINE CLEAR; COLOR,URINE YELLOW; NITRITE,URINE NEGATIVE (NEG); PH,URINE 6.5; PROTEIN,URINE NEGATIVE (NEG-TRACE)
[2019-11-10 14:20] LABS: BACTERIA,URINE MODERATE /HPF (0-FEW); RBC,URINE 0 /HPF (0-2); YEAST,URINE PRESENT /HPF
[2019-11-10 15:22] VITALS: BP 114/73
[2019-11-10 19:00] VITALS: BP 121/71
[2019-11-10] MEDS: LIDOCAINE (700MG/PATCH) PATCH. TP SCH (21:00)
[2019-11-10] MEDS: cefTRIAXone IV Push 1 GM VIAL. IVP SCH (21:49)
[2019-11-10] MEDS: ATORVASTATIN CALCIUM 40 MG TABLET. PO SCH (21:50)
[2019-11-10] MEDS: METOPROLOL SUCC 24HR ER 100 MG TAB.ER.24H. PO SCH (21:51)
[2019-11-10] MEDS: INSULIN GLARGINE SYRINGE. SQ SCH (22:03)
[2019-11-10 23:00] VITALS: BP 122/69
[2019-11-11] MEDS: oxyCODONE IR 5 MG TABLET PO PRN ×4 (00:37→19:46)
[2019-11-11] MEDS: HYDROmorphone 2 MG/ML VIAL IV PRN ×5 (03:33→20:36)
[2019-11-11] MEDS: ALPRAZolam 0.25 MG TABLET PO PRN ×3 (03:41→21:59)
[2019-11-11] MEDS: DEXAMETHASONE SOD PHOS 4 MG/ML VIAL IVP SCH ×3 (06:28→18:13)
[2019-11-11] MEDS: SUCRALFATE 1 GM TABLET. PO SCH ×3 (06:29→16:23)
[2019-11-11] MEDS: PANTOPRAZOLE 40 MG TABLET.DR. PO SCH (06:29)
[2019-11-11 07:59] VITALS: BP 123/82
[2019-11-11] MEDS: SENNOSIDES/DOCUSATE 8.6/50MG TABLET. PO SCH ×2 (08:18→21:46)
[2019-11-11] MEDS: cycloSPORINE 0.05% OPHTH DROPERETTE. OU SCH ×2 (08:18→21:46)
[2019-11-11] MEDS: levETIRAcetam 500 MG TABLET PO SCH ×2 (08:18→21:46)
[2019-11-11] MEDS: POLYETHYLENE GLYCOL 3350 17 GM PACKET. PO PRN (08:18)
[2019-11-11] MEDS: NYSTATIN TOPICAL POWDER 15GM BOTTLE. TP SCH ×2 (08:19→21:00)
[2019-11-11] MEDS: FLUTICASONE 50MCG/NASAL SPRAY 16GM BOTTLE. NS SCH (08:19)
[2019-11-11] MEDS: PATCH REMOVAL. MC SCH (08:19)
[2019-11-11] MEDS: INSULIN LISPRO 300 UNITS/3 ML VIAL. SQ SCH ×6 (08:27→17:14)
[2019-11-11] MEDS: amLODIPine BESYLATE 5 MG TABLET PO SCH (09:19)
--- NOTE | 2019-11-11 09:27 | PDOC ---
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 prior to admit with a recently noted brain mass c/w meningioma (though w/ edema and RLE weakness) pending resection however unfortunately she has had weight loss and increasing leukocytosis with early cells on her smear concerning for hematologic process w/ poss [employer] involvement, 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 await path post op h/o clotting: Restart anticoagulation when safe Thank you kindly and please do not hesitate to call with questions. OBJECTIVE Vital Signs Vital Signs Date Time Temp Pulse Resp B/P (MAP) Pulse Ox O2 Delivery O2 Flow Rate FiO2 11/11/19 09:19 80 123/82 11/11/19 08:19 Nasal Cannula 2.0 11/11/19 07:33 20 96 Nasal Cannula 2.0 11/11/19 07:30 20 96 Nasal Cannula 2.0 11/11/19 06:30 20 96 Nasal Cannula 2.0 11/11/19 04:03 20 96 Nasal Cannula 2.0 11/11/19 03:33 18 96 Nasal Cannula 2.0 11/11/19 01:37 18 96 Nasal Cannula 2.0 11/11/19 00:37 20 96 Room Air 2.0 11/11/19 00:00 16 96 Nasal Cannula 2.0 11/10/19 23:30 18 96 Room Air 2.0 11/10/19 23:00 98.1 86 18 122/69 (86) 96 Room Air 98.1 11/10/19 21:51 91 121/71 11/10/19 20:00 Nasal Cannula 11/10/19 19:59 18 96 Nasal Cannula 2.0 11/10/19 19:29 20 95 Room Air 2.0 11/10/19 19:23 Room Air 11/10/19 19:00 98.3 91 18 121/71 (88) 94 Room Air 98.3 11/10/19 18:20 Room Air 11/10/19 15:45 Room Air 11/10/19 15:22 98.2 16 114/73 (87) 95 Room Air 98.2 11/10/19 14:53 Room Air 11/10/19 14:18 Room Air 11/10/19 12:19 Room Air 11/10/19 12:18 Room Air 11/10/19 11:59 98.2 78 16 123/69 (87) 97 Room Air 98.2 11/10/19 10:35 Room Air I & O Intake and Output 11/11/19 07:00 Intake Total 720 ml Output Total 4700 ml Balance -3980 ml Intake Oral 720 ml Output Urine Total 4700 ml # Bowel Movements 1 COMMENT Lab Laboratory Tests Test 11/10/19 12:01 11/10/19 13:30 11/10/19 14:56 11/10/19 17:02 Glucose (Fingerstick) 359 mg/dL (70-99) 240 mg/dL (70-99) 262 mg/dL (70-99) Urine Collection Type Unknown Urine Color Yellow Urine Clarity Clear Urine pH 6.5 Urine Specific [place] 1.025 Urine Protein Negative mg/dL (NEG-TRACE) Urine Glucose (UA) >=1000 mg/dL (NEG) Urine Ketones (Stick) Negative mg/dL (NEG) Urine Blood Negative (NEG) Urine Nitrite Negative (NEG) Urine Bilirubin Negative (NEG) Urine Urobilinogen Dipstick 1.0 mg/dL (0.2 mg/dL) Urine Leukocyte Esterase Trace (NEG) Urine RBC 0 /HPF (0-2) Urine WBC 5-10 /HPF (0-4) Urine Bacteria Moderate /HPF (0-FEW) Urine Yeast Present /HPF Test 11/10/19 20:39 Glucose (Fingerstick) 264 mg/dL (70-99) Nutrition Consultation Dietary Evaluation: Recommendations by RD: Dietary education by RD, Increase Calorie Intake, Protein supplementation Comments: REC continue ADA/cardiac diet ,glucerna Expected Outcomes/Goals: PO intake to meet >75% est needs- met at times, goal ongoing Interpretation of weight loss: >5% in 1 month Malnutrition Findings: Food and Nutrition Intake (Sev: <50% est energy req 5days Weight Status: Morbidly Obese ENEDELIA HUYNH MD Nov 11, 2019 09:27
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
[2019-11-11 11:59] VITALS: BP 110/60
--- NOTE | 2019-11-11 13:49 | PDOC ---
PROGRESS NOTES Subjective Subjective Reports stable headache. ROS - nausea without emesis, denies cp, soa Objective Objective Vital Signs Date Time Temp Pulse Resp B/P (MAP) Pulse Ox O2 Delivery O2 Flow Rate FiO2 11/11/19 13:39 Room Air 11/11/19 11:59 97.9 82 20 110/60 (77) 98 2.0 97.9 Intake and Output 11/11/19 07:00 Intake Total 720 ml Output Total 4700 ml Balance -3980 ml Intake Oral 720 ml Output Urine Total 4700 ml # Bowel Movements 1 Physical Exam Physical Exam AAOx4, NAD, LLANES stable weakness, sensation unchanged LT Assessment Assessment Problems Medical Problems: (1) Abdominal hemorrhage Status: Acute (2) Generalized weakness Status: Acute (3) Lactic acidosis Status: Acute (4) Leukocytosis Status: Acute Plan Plan of Care stereotactic craniotomy for mass in AM Comment Review of Relevant I have reviewed the following items mustapha (where applicable) has been applied. Labs Laboratory Tests Test 11/09/19 17:09 11/09/19 21:06 11/10/19 07:25 11/10/19 12:01 Glucose (Fingerstick) 233 mg/dL (70-99) 300 mg/dL (70-99) 340 mg/dL (70-99) 359 mg/dL (70-99) Test 11/10/19 13:30 11/10/19 14:56 11/10/19 17:02 11/10/19 20:39 Urine Collection Type Unknown Urine Color Yellow Urine Clarity Clear Urine pH 6.5 Urine Specific Driver 1.025 Urine Protein Negative mg/dL (NEG-TRACE) Urine Glucose (UA) >=1000 mg/dL (NEG) Urine Ketones (Stick) Negative mg/dL (NEG) Urine Blood Negative (NEG) Urine Nitrite Negative (NEG) Urine Bilirubin Negative (NEG) Urine Urobilinogen Dipstick 1.0 mg/dL (0.2 mg/dL) Urine Leukocyte Esterase Trace (NEG) Urine RBC 0 /HPF (0-2) Urine WBC 5-10 /HPF (0-4) Urine Bacteria Moderate /HPF (0-FEW) Urine Yeast Present /HPF Glucose (Fingerstick) 240 mg/dL (70-99) 262 mg/dL (70-99) 264 mg/dL (70-99) Test 11/11/19 08:04 11/11/19 11:45 Glucose (Fingerstick) 302 mg/dL (70-99) 345 mg/dL (70-99) Laboratory Tests Test 11/10/19 14:56 11/10/19 17:02 11/10/19 20:39 11/11/19 08:04 Glucose (Fingerstick) 240 mg/dL (70-99) 262 mg/dL (70-99) 264 mg/dL (70-99) 302 mg/dL (70-99) Test 11/11/19 11:45 Glucose (Fingerstick) 345 mg/dL (70-99) Microbiology 11/01/19 Blood Culture - Final, Complete NO GROWTH AFTER 5 DAYS Medications Current Medications Sodium Chloride 500 ml @ 500 mls/hr 1X ONCE IV Last administered on 11/01/19at 13:00; Start 11/01/19 at 13:00; Stop 11/01/19 at 13:59; Status DC Ondansetron HCl (Zofran) 4 mg 1X ONCE IV Last administered on 11/01/19at 13:26; Start 11/01/19 at 13:00; Stop 11/01/19 at 13:13; Status DC Hydromorphone HCl (Dilaudid) 0.5 mg 1X STAT IVP Last administered on 11/01/19at 13:26; Start 11/01/19 at 12:59; Stop 11/01/19 at 13:13; Status DC Iohexol (Omnipaque 300 Mg/ml) 75 ml 1X ONCE IV Last administered on 11/01/19at 14:08; Start 11/01/19 at 13:45; Stop 11/01/19 at 13:46; Status DC Info (CONTRAST GIVEN -- Rx MONITORING) 1 each PRN DAILY PRN MC SEE COMMENTS; Start 11/01/19 at 14:00; Stop 11/03/19 at 13:59; Status DC Hydromorphone HCl (Dilaudid) 0.5 mg 1X STAT IVP Last administered on 11/01/19at 16:53; Start 11/01/19 at 16:21; Stop 11/01/19 at 16:23; Status DC Sodium Chloride 1,000 ml @ 1,000 mls/hr 1X ONCE IV Last administered on 11/01/19at 16:30; Start 11/01/19 at 16:30; Stop 11/01/19 at 17:29; Status DC Sodium Chloride 500 ml @ 500 mls/hr 1X ONCE IV Last administered on 11/01/19at 16:30; Start 11/01/19 at 16:30; Stop 11/01/19 at 17:29; Status DC Albuterol Sulfate (Ventolin Neb Soln) 2.5 mg PRN Q6HRS PRN INH SHORTNESS OF BREATH; Start 11/01/19 at 16:30; Status Cancel Alprazolam (Xanax) 0.25 mg PRN TID PRN PO anxiety; Start 11/01/19 at 16:30; Stop 11/01/19 at 17:11; Status DC Amlodipine Besylate (Norvasc) 5 mg DAILY PO Last administered on 11/11/19at 09:19; Start 11/02/19 at 09:00 Cyclosporine (Restasis) 1 drop BID OU Last administered on 11/11/19at 08:18; Start 11/01/19 at 21:00 Fluticasone Propionate (Flonase) 2 spray DAILY NS Last administered on 11/11/19at 08:19; Start 11/02/19 at 09:00 Lactobacillus Rhamnosus (Culturelle) 1 cap BID PO Last administered on 11/09/19at 08:28; Start 11/01/19 at 21:00; Stop 11/09/19 at 16:57; Status DC Lidocaine (Lidoderm) 1 patch DAILY TP ; Start 11/02/19 at 09:00; Stop 11/01/19 at 20:34; Status DC Metoprolol Succinate (Toprol Xl) 100 mg HS PO Last administered on 11/10/19at 21:51; Start 11/01/19 at 21:00 Nystatin (Nystop) 1 raza BID TP Last administered on 11/11/19at 08:19; Start 11/01/19 at 21:00 Pantoprazole Sodium (Protonix) 40 mg DAILYAC PO Last administered on 11/09/19at 08:28; Start 11/02/19 at 07:30; Stop 11/09/19 at 16:54; Status DC Senna/Docusate Sodium (Senna Plus) 1 tab BID PO Last administered on 11/11/19at 08:18; Start 11/01/19 at 21:00 Sucralfate (Carafate) 1 gm TIDAC PO Last administered on 11/11/19at 12:04; Start 11/01/19 at 17:30 Tramadol HCl (Ultram) 50 mg PRN Q8HRS PRN PO PAIN; Start 11/01/19 at 16:30; Stop 11/01/19 at 19:43; Status DC Insulin Glargine (Lantus Syringe) 30 unit QHS SQ Last administered on 11/06/19at 21:16; Start 11/01/19 at 21:00; Stop 11/07/19 at 15:56; Status DC Ondansetron HCl (Zofran Odt) 8 mg PRN Q8HRS PRN PO NAUSEA/VOMITING Last administered on 11/07/19at 13:05; Start 11/01/19 at 17:15 Polyethylene Glycol (miraLAX PACKET) 17 gm PRN DAILY PRN PO CONSTIPATION, 1ST CHOICE Last administered on 11/11/19 08:18; Start 11/01/19 at 17:11 Atorvastatin Calcium (Lipitor) 80 mg QHS PO Last administered on 11/10/19at 21:50; Start 11/01/19 at 21:00 Insulin Human Lispro (HumaLOG) 0-9 UNITS TIDAC SQ Last administered on 11/07/19at 12:20; Start 11/01/19 at 16:30; Stop 11/07/19 at 15:56; Status DC Dextrose (Dextrose 50%-Water Syringe) 12.5 gm PRN Q15MIN PRN IV SEE COMMENTS; Start 11/01/19 at 16:30 Ondansetron HCl (Zofran) 4 mg PRN Q8HRS PRN IV NAUSEA/VOMITING; Start 11/01/19 at 16:30; Stop 11/02/19 at 16:29; Status DC Alprazolam (Xanax) 0.25 mg PRN TID PRN PO anxiety Last administered on 11/11/19at 12:03; Start 11/01/19 at 17:11 Miscellaneous (Lidoderm Patch Removal) 1 ea QHS MC ; Start 11/01/19 at 21:00; Stop 11/01/19 at 20:34; Status DC Ceftriaxone Sodium (Rocephin) 1 gm QHS IVP Last administered on 11/10/19at 21:49; Start 11/01/19 at 18:45 Tramadol HCl (Ultram) 50 mg PRN Q8HRS PRN PO MILD PAIN 1-3 Last administered on 11/05/19at 22:04; Start 11/01/19 at 19:45 Hydromorphone HCl (Dilaudid) 1 mg PRN Q4HRS PRN IV PAIN Last administered on 11/11/19 12:04; Start 11/01/19 at 20:15 Lidocaine (Lidoderm) 1 patch QHS TP Last administered on 11/04/19at 21:55; Start 11/01/19 at 21:00 Miscellaneous (Lidoderm Patch Removal) 1 ea DAILY MC Last administered on 11/07/19at 09:00; Start 11/02/19 at 09:00 Albumin Human 500 ml @ 125 mls/hr 1X ONCE IV ; Start 11/02/19 at 02:00; Stop 11/02/19 at 05:59; Status Cancel Acetaminophen (Tylenol) 650 mg 1X PRN PRN PO PRE-TRANSFUSION; Start 11/02/19 at 06:45; Stop 11/03/19 at 14:16; Status DC Diphenhydramine HCl (Benadryl Oral Elixir) 12.5 mg 1X PRN PRN PO PRE- TRANSFUSION; Start 11/02/19 at 06:45; Stop 11/03/19 at 14:16; Status DC Diphenhydramine HCl (Benadryl) 25 mg PRN 1X PRN PO PRE-TRANSFUSION; Start 11/02/19 at 06:45; Stop 11/03/19 at 14:16; Status DC Lactulose (LACTULOSE 300ML for RECTAL) 200 gm Q6HRS SD Last administered on 11/02/19at 18:00; Start 11/02/19 at 18:00; Stop 11/04/19 at 14:44; Status DC Sodium Chloride 1,000 ml @ 100 mls/hr Q10H IV Last administered on 11/10/19at 23:45; Start 11/02/19 at 12:00 Lactulose (Lactulose) 20 gm PRN DAILY PRN PO CONSTIPATION, 2ND CHOICE; Start 11/04/19 at 14:45 Oxycodone HCl (Roxicodone) 5 mg PRN Q6HRS PRN PO MODERATE TO SEVERE PAIN Last administered on 11/11/19at 13:39; Start 11/04/19 at 14:45 Lidocaine HCl (Buffered Lidocaine 1%) 3 ml STK-MED ONCE .ROUTE ; Start 11/05/19 at 08:13; Stop 11/05/19 at 08:13; Status DC Lidocaine HCl (Buffered Lidocaine 1%) 3 ml STK-MED ONCE .ROUTE ; Start 11/05/19 at 08:14; Stop 11/05/19 at 08:14; Status DC Midazolam HCl (Versed) 2 mg STK-MED ONCE .ROUTE ; Start 11/05/19 at 08:40; Stop 11/05/19 at 08:40; Status DC Fentanyl Citrate (Fentanyl 2ml Vial) 100 mcg STK-MED ONCE .ROUTE ; Start 11/05/19 at 08:40; Stop 11/05/19 at 08:41; Status DC Lidocaine HCl (Buffered Lidocaine 1%) 3 ml 1X ONCE IJ Last administered on 11/05/19at 08:45; Start 11/05/19 at 08:45; Stop 11/05/19 at 08:50; Status DC Midazolam HCl (Versed) 2 mg 1X ONCE IV Last administered on 11/05/19at 08:45; Start 11/05/19 at 08:45; Stop 11/05/19 at 08:50; Status DC Fentanyl Citrate (Fentanyl 2ml Vial) 100 mcg 1X ONCE IV Last administered on 11/05/19at 08:45; Start 11/05/19 at 08:45; Stop 11/05/19 at 08:50; Status DC Dexamethasone Sodium Phosphate (Decadron) 4 mg Q6HRS IVP Last administered on 11/11/19at 12:03; Start 11/06/19 at 09:00 Insulin Glargine (Lantus Syringe) 40 unit QHS SQ Last administered on 11/10/19at 22:03; Start 11/07/19 at 21:00 Insulin Human Lispro (HumaLOG) 10 units TIDAC SQ Last administered on 11/11/19at 12:35; Start 11/07/19 at 16:30 Insulin Human Lispro (HumaLOG) 0-9 UNITS TIDWMEALS SQ Last administered on 11/11/19at 12:30; Start 11/07/19 at 17:00 Insulin Human Lispro (HumaLOG) 19 units 1X ONCE SQ Last administered on 11/09/19at 12:41; Start 11/09/19 at 12:15; Stop 11/09/19 at 12:16; Status DC Insulin Human Lispro (HumaLOG) 5 units 1X ONCE SQ Last administered on 11/09/19at 13:52; Start 11/09/19 at 13:30; Stop 11/09/19 at 13:31; Status DC Non-Formulary Medication 1 ea DAILY PO ; Start 11/09/19 at 16:30; Status Cancel Ondansetron HCl (Zofran) 4 mg PRN Q6HRS PRN IV NAUSEA/VOMITING; Start 11/12/19 at 07:00; Stop 11/13/19 at 06:59 Fentanyl Citrate (Fentanyl 2ml Vial) 25 mcg PRN Q5MIN PRN IV MILD PAIN 1-3; Start 11/12/19 at 07:00; Stop 11/13/19 at 06:59 Fentanyl Citrate (Fentanyl 2ml Vial) 50 mcg PRN Q5MIN PRN IV MODERATE TO SEVERE PAIN; Start 11/12/19 at 07:00; Stop 11/13/19 at 06:59 Morphine Sulfate (Morphine Sulfate) 1 mg PRN Q10MIN PRN IV SEVERE PAIN 7-10; Start 11/12/19 at 07:00; Stop 11/09/19 at 17:30; Status DC Ringer's Solution 1,000 ml @ 30 mls/hr Q24H IV ; Start 11/12/19 at 07:00; Stop 11/12/19 at 18:59 Lidocaine HCl (Xylocaine-Mpf 1% 2ml Vial) 2 ml PRN 1X PRN ID PRIOR TO IV START; Start 11/12/19 at 07:00; Stop 11/13/19 at 06:59 Hydromorphone HCl (Dilaudid) 0.5 mg PRN Q10MIN PRN IV SEV PAIN, Second choice; Start 11/12/19 at 07:00; Stop 11/13/19 at 06:59 Prochlorperazine Edisylate (Compazine) 5 mg PACU PRN PRN IV NAUSEA, MRX1; Start 11/12/19 at 07:00; Stop 11/13/19 at 06:59 Pantoprazole Sodium (Protonix) 40 mg DAILYAC PO Last administered on 11/11/19at 06:29; Start 11/09/19 at 18:30 Levetiracetam (Keppra) 500 mg BID PO Last administered on 11/11/19at 08:18; Start 11/09/19 at 21:00 Non-Formulary Medication 1 ea DAILY PO ; Start 11/12/19 at 09:00 Insulin Human Lispro (HumaLOG) 8 units 1X ONCE SQ Last administered on 11/10/19at 12:32; Start 11/10/19 at 12:15; Stop 11/10/19 at 12:16; Status DC Active Scripts Active Enoxaparin Sodium 120 Mg/0.8 Ml Disp.syrin 120 Mg SQ Q12HR 28 Days Dexamethasone 4 Mg Tablet 4 Mg PO BID 14 Days Culturelle (Lactobacillus Rhamnosus Gg) 1 Each Cap.sprink 1 Cap PO BID 30 Days Amlodipine Besylate 5 Mg Tablet 5 Mg PO DAILY 30 Days Cefdinir 300 Mg Capsule 300 Mg PO BID 10 Days Reported Cymbalta (Duloxetine Hcl) 60 Mg Capsule.dr 1 Cap PO BID Lyrica (Pregabalin) 150 Mg Capsule 1 Cap PO BID Novolog (Insulin Aspart) 100 Unit/1 Ml Cartridge 10-45 Unit SQ QIDACHS Levemir (Insulin Detemir) 100 Unit/1 Ml Vial 30 Unit SQ HS Linzess (Linaclotide) 145 Mcg Capsule 145 Mcg PO PRN PRN Crestor (Rosuvastatin Calcium) 40 Mg Tablet 0.5 Tab PO DAILY Polyethylene Glycol 3350 2,500 Gm Powder 17 Gm PO PRN PRN Xanax (Alprazolam) 1 Mg Tablet 1 Tab PO TID Restasis (Cyclosporine) 1 Each Droperette 1 Drop EACHEYE BID Proair Hfa Inhaler (Albuterol Sulfate) 8.5 Gm Hfa.aer.ad 1 Puff INH PRN Q6HRS PRN Tramadol Hcl 50 Mg Tablet 1 Tab PO PRN Q8HRS PRN Ondansetron Hcl 4 Mg Tablet 2 Tab PO PRN Q8HRS PRN Nystatin 15 Gm Powder 1 [place] TP BID Lidocaine PATCH (Lidocaine) 1 Each Adh..patch 1 Each TP DAILY Fluticasone Propionate Nasal [place] (Fluticasone Propionate) 16 Gm [place].susp 2 [place] NS DAILY Percocet 5-325 Mg Tablet (Oxycodone/Acetaminophen) 1 Each Tablet 1-2 Tab PO Q4-6HRS PRN LAST DOSE AT NEXT DOSE Senna-Docusate Sodium Tablet (Sennosides/Docusate Sodium) 1 Each Tablet 1 Each PO BID LAST DOSE THIS AM NEXT DOSE TONIGHT Robaxin-750 (Methocarbamol) 750 Mg Tablet 1 Tab PO TID LAST DOSE AT 1400 (2PM) MAY HAVE THE NEXT DOSE AT 10 PM Protonix (Pantoprazole Sodium) 40 Mg Tablet.dr 40 Mg PO DAILY LST DOSE THIS AM NEXT DOSE TOMORROW AM Carafate (Sucralfate) 1 Gm Tablet 1 Tab PO TID Meds not given this hospital admission. May resume home medications as approved by Physician. MAY TAKE WHEN AVAILABLE Xarelto (Rivaroxaban) 15 Mg Tablet 15 Mg PO DAILY Meds not given this hospital admission. May resume home medications as approved by Physician. MAY RESUME WHEN AVAILABLE Metoprolol Succinate ( Xl ) (Metoprolol Succinate) 100 Mg Tab.er.24h 100 Mg PO HS LAST DOSE THIS AM NEXT DOSE TOMORROW AM Vitals/I & O Vital Sign - Last 24 Hours 11/10/19 11/10/19 11/10/19 11/10/19 14:18 14:53 15:22 15:45 Temp 98.2 98.2 Resp 16 B/P (MAP) 114/73 (87) Pulse Ox 95 O2 Delivery Room Air Room Air Room Air Room Air 11/10/19 11/10/19 11/10/19 11/10/19 18:20 19:00 19:23 19:29 Temp 98.3 98.3 Pulse 91 Resp 18 20 B/P (MAP) 121/71 (88) Pulse Ox 94 95 O2 Delivery Room Air Room Air Room Air Room Air O2 Flow Rate 2.0 11/10/19 11/10/19 11/10/19 11/10/19 19:59 20:00 21:51 23:00 Temp 98.1 98.1 Pulse 91 86 Resp 18 18 B/P (MAP) 121/71 122/69 (86) Pulse Ox 96 96 O2 Delivery Nasal Cannula Nasal Cannula Room Air O2 Flow Rate 2.0 11/10/19 11/11/19 11/11/19 11/11/19 23:30 00:00 00:37 01:37 Resp 18 16 20 18 Pulse Ox 96 96 96 96 O2 Delivery Room Air Nasal Cannula Room Air Nasal Cannula O2 Flow Rate 2.0 2.0 2.0 2.0 11/11/19 11/11/19 11/11/19 11/11/19 03:33 04:03 06:30 07:30 Resp 18 20 20 20 Pulse Ox 96 96 96 96 O2 Delivery Nasal Cannula Nasal Cannula Nasal Cannula Nasal Cannula O2 Flow Rate 2.0 2.0 2.0 2.0 11/11/19 11/11/19 11/11/19 11/11/19 07:33 07:45 07:59 08:19 Temp 97.3 97.3 Pulse 80 Resp 20 20 B/P (MAP) 123/82 (96) Pulse Ox 96 99 O2 Delivery Nasal Cannula Room Air Room Air Nasal Cannula O2 Flow Rate 2.0 2.0 11/11/19 11/11/19 11/11/19 11/11/19 09:19 11:59 12:04 12:35 Temp 97.9 97.9 Pulse 80 82 Resp 20 B/P (MAP) 123/82 110/60 (77) Pulse Ox 98 O2 Delivery Nasal Cannula Room Air Room Air O2 Flow Rate 2.0 11/11/19 13:39 O2 Delivery Room Air Intake and Output 11/10/19 11/10/19 11/11/19 15:00 23:00 07:00 Intake Total 240 ml 480 ml Output Total 1100 ml 1200 ml 2400 ml Balance -1100 ml -960 ml -1920 ml Nutrition Consultation Dietary Evaluation: Recommendations by RD: Dietary education by RD, Increase Calorie Intake, Protein supplementation Comments: REC continue ADA/cardiac diet ,glucerna Expected Outcomes/Goals: PO intake to meet >75% est needs- met at times, goal ongoing Interpretation of weight loss: >5% in 1 month Malnutrition Findings: Food and Nutrition Intake (Sev: <50% est energy req 5days Weight Status: Morbidly Obese BINH WELCH MD Nov 11, 2019 13:48
[2019-11-11 15:59] VITALS: BP_SYST 122; BP_SYST 136; BP_DIAS 67; BP_DIAS 95
[2019-11-11] MEDS: IV NORMAL SALINE 1000ML BAG 1,000 ML IV SCH (17:08)
[2019-11-11 19:00] VITALS: BP 127/68
[2019-11-11] MEDS: LIDOCAINE (700MG/PATCH) PATCH. TP SCH (21:00)
[2019-11-11] MEDS: cefTRIAXone IV Push 1 GM VIAL. IVP SCH (21:45)
[2019-11-11] MEDS: ATORVASTATIN CALCIUM 40 MG TABLET. PO SCH (21:45)
[2019-11-11] MEDS: METOPROLOL SUCC 24HR ER 100 MG TAB.ER.24H. PO SCH (21:46)
[2019-11-11] MEDS: INSULIN GLARGINE SYRINGE. SQ SCH (22:13)
[2019-11-11 23:00] VITALS: BP 125/63
[2019-11-12] VITALS (13 sets, daily range): BP systolic 103–138; BP diastolic 68–84
[2019-11-12] MEDS: DEXAMETHASONE SOD PHOS 4 MG/ML VIAL IVP SCH ×5 (00:28→23:59)
[2019-11-12] MEDS: HYDROmorphone 2 MG/ML VIAL IV PRN ×5 (00:28→23:58)
[2019-11-12] MEDS: IV NORMAL SALINE 1000ML BAG 1,000 ML IV SCH (02:14)
[2019-11-12] MEDS: oxyCODONE IR 5 MG TABLET PO PRN (02:14)
[2019-11-12] MEDS: ALPRAZolam 0.25 MG TABLET PO PRN (04:37)
[2019-11-12 05:17] LABS: PROTHROMBIN TIME PATIENT 13.4 SEC (11.7-14.0)
[2019-11-12 05:22] LABS: BASO # 0.1 x10^3/uL (0.0-0.2); BASO % 0 % (0-3); CALCIUM 8.1 mg/dL (8.5-10.1); CREATININE 0.7 mg/dL (0.6-1.0); EOS % 0 % (0-3); GFR 89.7; HEMATOCRIT 30.8 % (36.0-47.0); HEMOGLOBIN 9.9 g/dL (12.0-15.5); LYMPH # 1.2 x10^3/uL (1.0-4.8); LYMPH % 3 % (24-48); MEAN CORPUSCULAR HEMOGLOBIN 29 pg (25-35); MEAN CORPUSCULAR HGB CONC 32 g/dL (31-37); MEAN CORPUSCULAR VOLUME 92 fL (79-100); MONO # 0.8 x10^3/uL (0.0-1.1); MONO % 2 % (0-9); NEUT # 40.8 x10^3/uL (1.8-7.7); NEUT % 95 % (31-73); PLATELET COUNT 461 x10^3/uL (140-400); POTASSIUM 4.4 mmol/L (3.5-5.1); RED BLOOD COUNT 3.36 x10^6/uL (3.50-5.40); RED CELL DISTRIBUTION WIDTH 17.2 % (11.5-14.5)
[2019-11-12 05:39] LABS: WHITE BLOOD COUNT 42.9 x10^3/uL (4.0-11.0)
[2019-11-12] MEDS ORDERED: PROCHLORPERAZINE 10 MG/2 ML VIAL. IV PRN (07:00)
[2019-11-12] MEDS ORDERED: ONDANSETRON PF 4 MG/2 ML VIAL. IV PRN (07:00)
[2019-11-12] MEDS ORDERED: IV RINGERS,LACTATED 1000ML 1,000 ML IV SCH (07:00)
[2019-11-12] MEDS ORDERED: fentaNYL PF VIAL 100 MCG/2 ML VIAL IV PRN ×2 (07:00)
[2019-11-12] MEDS ORDERED: MORPHINE SULFATE 2 MG/ML VIAL. IV PRN (07:00)
[2019-11-12] MEDS ORDERED: HYDROmorphone 2 MG/ML VIAL IV PRN ×2 (07:00→15:15)
[2019-11-12] MEDS ORDERED: LIDOCAINE 1% PF 2 ML VIAL. ID PRN (07:00)
[2019-11-12 07:05] LABS: % BANDS 9 % (0-9); % LYMPHS 3 % (24-48); % METAS 6 % (0-0); % MONOS 1 % (0-10); % MYELOS 5 % (0-0); % SEGS 76 % (35-66); PLT ESTIMATE INCREASED (ADEQUATE)
[2019-11-12 07:06] LABS: ANISOCYTOSIS MOD; POLYCHROMASIA MOD
[2019-11-12] MEDS: PANTOPRAZOLE 40 MG TABLET.DR. PO SCH (07:30)
[2019-11-12] MEDS: INSULIN LISPRO 300 UNITS/3 ML VIAL. SQ SCH ×3 (07:30→20:08)
[2019-11-12] MEDS: SUCRALFATE 1 GM TABLET. PO SCH (07:30)
[2019-11-12] MEDS ORDERED: DEXAMETHASONE SOD PHOS 20 MG/5 ML VIAL. ONE (07:48)
[2019-11-12] MEDS ORDERED: PHENYLEPHRINE 10 MG/ML VIAL. ONE (07:48)
[2019-11-12] MEDS ORDERED: PROPOFOL 50 ML IV ONE (07:48)
[2019-11-12] MEDS ORDERED: REMIFENTANIL 2 MG VIAL. IV ONE (07:48)
[2019-11-12] MEDS ORDERED: LIDOCAINE 2% PF 5 ML VIAL. ONE (07:48)
[2019-11-12] MEDS ORDERED: PROPOFOL 20 ML IV ONE (07:48)
[2019-11-12] MEDS ORDERED: ROCURONIUM 50 MG/5 ML VIAL. ONE ×2 (07:48→09:11)
[2019-11-12] MEDS ORDERED: ONDANSETRON PF 4 MG/2 ML VIAL. ONE (07:48)
[2019-11-12] MEDS ORDERED: 0.9 % SODIUM CHLORIDE 20 ML VIAL. IJ ONE ×2 (07:49→07:57)
[2019-11-12] MEDS ORDERED: MINERAL OIL/PETROLATUM,WHITE OPHTH OINT 3.5GM TUBE. ONE (07:49)
[2019-11-12] MEDS ORDERED: BACITRACIN 50,000 UNIT in IV NORMAL SALINE 1000ML BAG 1,000 ML IRR ONE (07:57)
[2019-11-12] MEDS ORDERED: LIDOCAINE 1%/EPI 1:100,000 20 ML VIAL. ONE (07:59)
[2019-11-12] MEDS ORDERED: SURGICEL HEMOSTAT 4X8 EACH. ONE (07:59)
[2019-11-12] MEDS ORDERED: GELATIN SPONGE SIZE 100. ONE ×2 (07:59→12:26)
[2019-11-12] MEDS ORDERED: BACITRACIN TOPICAL OINT PACKET. TP ONE (08:00)
[2019-11-12] MEDS ORDERED: THROMBIN TOPICAL 20,000 UNIT SPRAY.SYRN KIT TP ONE ×3 (08:00→13:32)
[2019-11-12] MEDS ORDERED: PROPOFOL 100 ML IV ONE ×2 (08:02→09:22)
--- NOTE | 2019-11-12 08:09 | PDOC ---
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 Pain control, consulted general surgery Leukocytosis - likely CML and steroid related Acute encephalopathy -POA, resolved Headaches DM2 - basal bolus plus regimen of insulin Chronic Back Pain and Sciatica Rt Leg Acute blood loss anemia - likely 2/2 large right sided abdominal wall hematoma. Given the acute drop in Hb this bleed is acute. Transfused 2u 11/02 Brain Mass - meningioma with midline shifting, vasogenic edema. On steroids - Left parietal extra-axial solid enhancing mass has imaging characteristics suggestive of a meningioma. surgery planned 11/12/19 Hx PE - sees hematology, on xarelto transitioned to lovenox. Consult hematology for further recs Hypotension - new, will hold her amlodipine Epistaxis - possibly lovenox, though I am more concerned about a hematologic malignancy FEN - NPO PPX - Contraindicated FULL CODE Dispo - inpatient History of Present Illness History of Present Illness Ms Alejo is a 49-year-old female w/ PMHx Anxiety, CAD, Diabetes, High Ch olesterol, Hypertension, Kidney Stones, Ovarian Cyst, Pneumonia, pulmonary embolism, tachycardia, recent dx of meningioma (symptomatic) who comes to ED with presyncope. On her way to Oncology day of admit her left leg gave out on her and she felt like she was floating. She's been having abdominal bruising and pain to the right side of her abdomen with swelling and the bruise feels so tense that she thinks an alien or baby is going to burst out. CT abdomen shows large right subcutaneous hematoma with active bleeding. She also started having intermittent nosebleeds day prior to admit and again day of admission. EKG shows a sinus rhythm at 94 bpm, normal axis, QTC 466 ms, no ST elevation. Labs concerning for WBC of 81. 11/02: Hb 6.6 today. ordered 2u PRBC. She is still a little confused, better than prior admit. She was feeling uncoordinated and notes her headache she has been having. Reports her pain is 10. 14: Overnight had BM, pain better controlled. Hb 7 now s/p 2u PRBC. WBC 45. Still a bit confused. No further epistaxis. No CP or SOB. 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 Plan for craniotomy today. heme onc following large belly bruise stable HGb 8 after BT [place] peripheral line eating ok, sleeping ok PLAN: cont decadron IV EEG Close neuro checks Decadron 4 mg IV q6h. Continue Lipitor HS. Treat medical diseases. Consulted Neurosurgery consult Oncology.. -plan for craniotomy Monday 11/12 ICU after surgery 36 min pt exam, chart revieqw, > 50% of time spent with exam, chart review, pt care coordination Vitals Vitals Vital Signs Date Time Temp Pulse Resp B/P (MAP) Pulse Ox O2 Delivery O2 Flow Rate FiO2 11/12/19 07:50 Room Air 11/12/19 04:59 20 94 2.0 11/11/19 23:00 98.0 83 125/63 (83) 98.0 Physical Exam General: Alert, Cooperative Heart: Regular rate, Normal S1, Normal S2 Lungs: Wheezing Abdomen: Soft, Other (eechymosis improving) Extremities: No clubbing, No cyanosis, No edema, Normal pulses, No tende rness/swelling Skin: Other (Ecchymosis on right abdomen) Labs LABS Laboratory Tests Test 11/11/19 08:04 11/11/19 11:45 11/11/19 16:38 11/11/19 20:37 Glucose (Fingerstick) 302 mg/dL (70-99) 345 mg/dL (70-99) 350 mg/dL (70-99) 288 mg/dL (70-99) Test 11/12/19 04:55 11/12/19 07:43 White Blood Count 42.9 x10^3/uL (4.0-11.0) Red Blood Count 3.36 x10^6/uL (3.50-5.40) Hemoglobin 9.9 g/dL (12.0-15.5) Hematocrit 30.8 % (36.0-47.0) Mean Corpuscular Volume 92 fL (79-100) Mean Corpuscular Hemoglobin 29 pg (25-35) Mean Corpuscular Hemoglobin Concent 32 g/dL (31-37) Red Cell Distribution Width 17.2 % (11.5-14.5) Platelet Count 461 x10^3/uL (140-400) Neutrophils (%) (Auto) 95 % (31-73) Lymphocytes (%) (Auto) 3 % (24-48) Monocytes (%) (Auto) 2 % (0-9) Eosinophils (%) (Auto) 0 % (0-3) Basophils (%) (Auto) 0 % (0-3) Neutrophils # (Auto) 40.8 x10^3/uL (1.8-7.7) Lymphocytes # (Auto) 1.2 x10^3/uL (1.0-4.8) Monocytes # (Auto) 0.8 x10^3/uL (0.0-1.1) Eosinophils # (Auto) 0.0 x10^3/uL (0.0-0.7) Basophils # (Auto) 0.1 x10^3/uL (0.0-0.2) Segmented Neutrophils % 76 % (35-66) Band Neutrophils % 9 % (0-9) Lymphocytes % 3 % (24-48) Monocytes % 1 % (0-10) Metamyelocytes % 6 % (0-0) Myelocytes % 5 % (0-0) Platelet Estimate Increased (ADEQUATE) Polychromasia Mod Anisocytosis Mod Prothrombin Time 13.4 SEC (11.7-14.0) Prothromb Time International Ratio 1.1 (0.8-1.1) Activated Partial Thromboplast Time 22 SEC (24-38) Sodium Level 137 mmol/L (136-145) Potassium Level 4.4 mmol/L (3.5-5.1) Chloride Level 100 mmol/L (98-107) Carbon Dioxide Level 28 mmol/L (21-32) Anion Gap 9 (6-14) Blood Urea Nitrogen 23 mg/dL (7-20) Creatinine 0.7 mg/dL (0.6-1.0) Estimated GFR (Cockcroft-Gault) 89.7 Glucose Level 384 mg/dL (70-99) Calcium Level 8.1 mg/dL (8.5-10.1) Glucose (Fingerstick) 360 mg/dL (70-99) Assessment and Plan Assessmemt and Plan Problems Medical Problems: (1) Abdominal hemorrhage Status: Acute (2) Generalized weakness Status: Acute (3) Lactic acidosis Status: Acute (4) Leukocytosis Status: Acute Comment Review of Relevant I have reviewed the following items mustapha (where applicable) has been applied. Labs Laboratory Tests Test 11/10/19 12:01 11/10/19 13:30 11/10/19 14:56 11/10/19 17:02 Glucose (Fingerstick) 359 mg/dL (70-99) 240 mg/dL (70-99) 262 mg/dL (70-99) Urine Collection Type Unknown Urine Color Yellow Urine Clarity Clear Urine pH 6.5 Urine Specific [place] 1.025 Urine Protein Negative mg/dL (NEG-TRACE) Urine Glucose (UA) >=1000 mg/dL (NEG) Urine Ketones (Stick) Negative mg/dL (NEG) Urine Blood Negative (NEG) Urine Nitrite Negative (NEG) Urine Bilirubin Negative (NEG) Urine Urobilinogen Dipstick 1.0 mg/dL (0.2 mg/dL) Urine Leukocyte Esterase Trace (NEG) Urine RBC 0 /HPF (0-2) Urine WBC 5-10 /HPF (0-4) Urine Bacteria Moderate /HPF (0-FEW) Urine Yeast Present /HPF Test 11/10/19 20:39 11/11/19 08:04 11/11/19 11:45 11/11/19 16:38 Glucose (Fingerstick) 264 mg/dL (70-99) 302 mg/dL (70-99) 345 mg/dL (70-99) 350 mg/dL (70-99) Test 11/11/19 20:37 11/12/19 04:55 11/12/19 07:43 Glucose (Fingerstick) 288 mg/dL (70-99) 360 mg/dL (70-99) White Blood Count 42.9 x10^3/uL (4.0-11.0) Red Blood Count 3.36 x10^6/uL (3.50-5.40) Hemoglobin 9.9 g/dL (12.0-15.5) Hematocrit 30.8 % (36.0-47.0) Mean Corpuscular Volume 92 fL (79-100) Mean Corpuscular Hemoglobin 29 pg (25-35) Mean Corpuscular Hemoglobin Concent 32 g/dL (31-37) Red Cell Distribution Width 17.2 % (11.5-14.5) Platelet Count 461 x10^3/uL (140-400) Neutrophils (%) (Auto) 95 % (31-73) Lymphocytes (%) (Auto) 3 % (24-48) Monocytes (%) (Auto) 2 % (0-9) Eosinophils (%) (Auto) 0 % (0-3) Basophils (%) (Auto) 0 % (0-3) Neutrophils # (Auto) 40.8 x10^3/uL (1.8-7.7) Lymphocytes # (Auto) 1.2 x10^3/uL (1.0-4.8) Monocytes # (Auto) 0.8 x10^3/uL (0.0-1.1) Eosinophils # (Auto) 0.0 x10^3/uL (0.0-0.7) Basophils # (Auto) 0.1 x10^3/uL (0.0-0.2) Segmented Neutrophils % 76 % (35-66) Band Neutrophils % 9 % (0-9) Lymphocytes % 3 % (24-48) Monocytes % 1 % (0-10) Metamyelocytes % 6 % (0-0) Myelocytes % 5 % (0-0) Platelet Estimate Increased (ADEQUATE) Polychromasia Mod Anisocytosis Mod Prothrombin Time 13.4 SEC (11.7-14.0) Prothromb Time International Ratio 1.1 (0.8-1.1) Activated Partial Thromboplast Time 22 SEC (24-38) Sodium Level 137 mmol/L (136-145) Potassium Level 4.4 mmol/L (3.5-5.1) Chloride Level 100 mmol/L (98-107) Carbon Dioxide Level 28 mmol/L (21-32) Anion Gap 9 (6-14) Blood Urea Nitrogen 23 mg/dL (7-20) Creatinine 0.7 mg/dL (0.6-1.0) Estimated GFR (Cockcroft-Gault) 89.7 Glucose Level 384 mg/dL (70-99) Calcium Level 8.1 mg/dL (8.5-10.1) Laboratory Tests Test 11/11/19 08:04 11/11/19 11:45 11/11/19 16:38 11/11/19 20:37 Glucose (Fingerstick) 302 mg/dL (70-99) 345 mg/dL (70-99) 350 mg/dL (70-99) 288 mg/dL (70-99) Test 11/12/19 04:55 11/12/19 07:43 White Blood Count 42.9 x10^3/uL (4.0-11.0) Red Blood Count 3.36 x10^6/uL (3.50-5.40) Hemoglobin 9.9 g/dL (12.0-15.5) Hematocrit 30.8 % (36.0-47.0) Mean Corpuscular Volume 92 fL (79-100) Mean Corpuscular Hemoglobin 29 pg (25-35) Mean Corpuscular Hemoglobin Concent 32 g/dL (31-37) Red Cell Distribution Width 17.2 % (11.5-14.5) Platelet Count 461 x10^3/uL (140-400) Neutrophils (%) (Auto) 95 % (31-73) Lymphocytes (%) (Auto) 3 % (24-48) Monocytes (%) (Auto) 2 % (0-9) Eosinophils (%) (Auto) 0 % (0-3) Basophils (%) (Auto) 0 % (0-3) Neutrophils # (Auto) 40.8 x10^3/uL (1.8-7.7) Lymphocytes # (Auto) 1.2 x10^3/uL (1.0-4.8) Monocytes # (Auto) 0.8 x10^3/uL (0.0-1.1) Eosinophils # (Auto) 0.0 x10^3/uL (0.0-0.7) Basophils # (Auto) 0.1 x10^3/uL (0.0-0.2) Segmented Neutrophils % 76 % (35-66) Band Neutrophils % 9 % (0-9) Lymphocytes % 3 % (24-48) Monocytes % 1 % (0-10) Metamyelocytes % 6 % (0-0) Myelocytes % 5 % (0-0) Platelet Estimate Increased (ADEQUATE) Polychromasia Mod Anisocytosis Mod Prothrombin Time 13.4 SEC (11.7-14.0) Prothromb Time International Ratio 1.1 (0.8-1.1) Activated Partial Thromboplast Time 22 SEC (24-38) Sodium Level 137 mmol/L (136-145) Potassium Level 4.4 mmol/L (3.5-5.1) Chloride Level 100 mmol/L (98-107) Carbon Dioxide Level 28 mmol/L (21-32) Anion Gap 9 (6-14) Blood Urea Nitrogen 23 mg/dL (7-20) Creatinine 0.7 mg/dL (0.6-1.0) Estimated GFR (Cockcroft-Gault) 89.7 Glucose Level 384 mg/dL (70-99) Calcium Level 8.1 mg/dL (8.5-10.1) Glucose (Fingerstick) 360 mg/dL (70-99) Microbiology 11/01/19 Blood Culture - Final, Complete NO GROWTH AFTER 5 DAYS Medications Current Medications Sodium Chloride 500 ml @ 500 mls/hr 1X ONCE IV Last administered on 11/01/19at 13:00; Start 11/01/19 at 13:00; Stop 11/01/19 at 13:59; Status DC Ondansetron HCl (Zofran) 4 mg 1X ONCE IV Last administered on 11/01/19at 13:26; Start 11/01/19 at 13:00; Stop 11/01/19 at 13:13; Status DC Hydromorphone HCl (Dilaudid) 0.5 mg 1X STAT IVP Last administered on 11/01/19at 13:26; Start 11/01/19 at 12:59; Stop 11/01/19 at 13:13; Status DC Iohexol (Omnipaque 300 Mg/ml) 75 ml 1X ONCE IV Last administered on 11/01/19at 14:08; Start 11/01/19 at 13:45; Stop 11/01/19 at 13:46; Status DC Info (CONTRAST GIVEN -- Rx MONITORING) 1 each PRN DAILY PRN MC SEE COMMENTS; Start 11/01/19 at 14:00; Stop 11/03/19 at 13:59; Status DC Hydromorphone HCl (Dilaudid) 0.5 mg 1X STAT IVP Last administered on 11/01/19a t 16:53; Start 11/01/19 at 16:21; Stop 11/01/19 at 16:23; Status DC Sodium Chloride 1,000 ml @ 1,000 mls/hr 1X ONCE IV Last administered on 11/01/19at 16:30; Start 11/01/19 at 16:30; Stop 11/01/19 at 17:29; Status DC Sodium Chloride 500 ml @ 500 mls/hr 1X ONCE IV Last administered on 11/01/19at 16:30; Start 11/01/19 at 16:30; Stop 11/01/19 at 17:29; Status DC Albuterol Sulfate (Ventolin Neb Soln) 2.5 mg PRN Q6HRS PRN INH SHORTNESS OF BREATH; Start 11/01/19 at 16:30; Status Cancel Alprazolam (Xanax) 0.25 mg PRN TID PRN PO anxiety; Start 11/01/19 at 16:30; Stop 11/01/19 at 17:11; Status DC Amlodipine Besylate (Norvasc) 5 mg DAILY PO Last administered on 11/11/19at 09:19; Start 11/02/19 at 09:00 Cyclosporine (Restasis) 1 drop BID OU Last administered on 11/11/19at 21:46; Start 11/01/19 at 21:00 Fluticasone Propionate (Flonase) 2 spray DAILY NS Last administered on 11/11/19at 08:19; Start 11/02/19 at 09:00 Lactobacillus Rhamnosus (Culturelle) 1 cap BID PO Last administered on 11/09/19 at 08:28; Start 11/01/19 at 21:00; Stop 11/09/19 at 16:57; Status DC Lidocaine (Lidoderm) 1 patch DAILY TP ; Start 11/02/19 at 09:00; Stop 11/01/19 at 20:34; Status DC Metoprolol Succinate (Toprol Xl) 100 mg HS PO Last administered on 11/11/19at 21:46; Start 11/01/19 at 21:00 Nystatin (Nystop) 1 raza BID TP Last administered on 11/11/19at 08:19; Start 11/01/19 at 21:00 Pantoprazole Sodium (Protonix) 40 mg DAILYAC PO Last administered on 11/09/19at 08:28; Start 11/02/19 at 07:30; Stop 11/09/19 at 16:54; Status DC Senna/Docusate Sodium (Senna Plus) 1 tab BID PO Last administered on 11/11/19at 21:46; Start 11/01/19 at 21:00 Sucralfate (Carafate) 1 gm TIDAC PO Last administered on 11/11/19at 16:23; Start 11/01/19 at 17:30 Tramadol HCl (Ultram) 50 mg PRN Q8HRS PRN PO PAIN; Start 11/01/19 at 16:30; Stop 11/01/19 at 19:43; Status DC Insulin Glargine (Lantus Syringe) 30 unit QHS SQ Last administered on 11/06/19at 21:16; Start 11/01/19 at 21:00; Stop 11/07/19 at 15:56; Status DC Ondansetron HCl (Zofran Odt) 8 mg PRN Q8HRS PRN PO NAUSEA/VOMITING Last administered on 11/07/19at 13:05; Start 11/01/19 at 17:15 Polyethylene Glycol (miraLAX PACKET) 17 gm PRN DAILY PRN PO CONSTIPATION, 1ST CHOICE Last administered on 11/11/19at 08:18; Start 11/01/19 at 17:11 Atorvastatin Calcium (Lipitor) 80 mg QHS PO Last administered on 11/11/19at 21:45; Start 11/01/19 at 21:00 Insulin Human Lispro (HumaLOG) 0-9 UNITS TIDAC SQ Last administered on 11/07/19at 12:20; Start 11/01/19 at 16:30; Stop 11/07/19 at 15:56; Status DC Dextrose (Dextrose 50%-Water Syringe) 12.5 gm PRN Q15MIN PRN IV SEE COMMENTS; Start 11/01/19 at 16:30 Ondansetron HCl (Zofran) 4 mg PRN Q8HRS PRN IV NAUSEA/VOMITING; Start 11/01/19 at 16:30; Stop 11/02/19 at 16:29; Status DC Alprazolam (Xanax) 0.25 mg PRN TID PRN PO anxiety Last administered on 11/12/19at 04:37; Start 11/01/19 at 17:11 Miscellaneous (Lidoderm Patch Removal) 1 ea QHS MC ; Start 11/01/19 at 21:00; Stop 11/01/19 at 20:34; Status DC Ceftriaxone Sodium (Rocephin) 1 gm QHS IVP Last administered on 11/11/19at 21:45; Start 11/01/19 at 18:45 Tramadol HCl (Ultram) 50 mg PRN Q8HRS PRN PO MILD PAIN 1-3 Last administered on 11/05/19at 22:04; Start 11/01/19 at 19:45 Hydromorphone HCl (Dilaudid) 1 mg PRN Q4HRS PRN IV PAIN Last administered on 11/12/19 04:29; Start 11/01/19 at 20:15 Lidocaine (Lidoderm) 1 patch QHS TP Last administered on 11/04/19at 21:55; Start 11/01/19 at 21:00 Miscellaneous (Lidoderm Patch Removal) 1 ea DAILY MC Last administered on 11/07/19at 09:00; Start 11/02/19 at 09:00 Albumin Human 500 ml @ 125 mls/hr 1X ONCE IV ; Start 11/02/19 at 02:00; Stop 11/02/19 at 05:59; Status Cancel Acetaminophen (Tylenol) 650 mg 1X PRN PRN PO PRE-TRANSFUSION; Start 11/02/19 at 06:45; Stop 11/03/19 at 14:16; Status DC Diphenhydramine HCl (Benadryl Oral Elixir) 12.5 mg 1X PRN PRN PO PRE- TRANSFUSION; Start 11/02/19 at 06:45; Stop 11/03/19 at 14:16; Status DC Diphenhydramine HCl (Benadryl) 25 mg PRN 1X PRN PO PRE-TRANSFUSION; Start 11/02/19 at 06:45; Stop 11/03/19 at 14:16; Status DC Lactulose (LACTULOSE 300ML for RECTAL) 200 gm Q6HRS NV Last administered on 11/02/19at 18:00; Start 11/02/19 at 18:00; Stop 11/04/19 at 14:44; Status DC Sodium Chloride 1,000 ml @ 100 mls/hr Q10H IV Last administered on 11/12/19at 02:14; Start 11/02/19 at 12:00 Lactulose (Lactulose) 20 gm PRN DAILY PRN PO CONSTIPATION, 2ND CHOICE; Start 11/04/19 at 14:45 Oxycodone HCl (Roxicodone) 5 mg PRN Q6HRS PRN PO MODERATE TO SEVERE PAIN Last administered on 11/12/19at 02:14; Start 11/04/19 at 14:45 Lidocaine HCl (Buffered Lidocaine 1%) 3 ml STK-MED ONCE .ROUTE ; Start 11/05/19 at 08:13; Stop 11/05/19 at 08:13; Status DC Lidocaine HCl (Buffered Lidocaine 1%) 3 ml STK-MED ONCE .ROUTE ; Start 11/05/19 at 08:14; Stop 11/05/19 at 08:14; Status DC Midazolam HCl (Versed) 2 mg STK-MED ONCE .ROUTE ; Start 11/05/19 at 08:40; Stop 11/05/19 at 08:40; Status DC Fentanyl Citrate (Fentanyl 2ml Vial) 100 mcg STK-MED ONCE .ROUTE ; Start 11/05/19 at 08:40; Stop 11/05/19 at 08:41; Status DC Lidocaine HCl (Buffered Lidocaine 1%) 3 ml 1X ONCE IJ Last administered on 11/05/19at 08:45; Start 11/05/19 at 08:45; Stop 11/05/19 at 08:50; Status DC Midazolam HCl (Versed) 2 mg 1X ONCE IV Last administered on 11/05/19at 08:45; Start 11/05/19 at 08:45; Stop 11/05/19 at 08:50; Status DC Fentanyl Citrate (Fentanyl 2ml Vial) 100 mcg 1X ONCE IV Last administered on 1 01/06/19at 08:45; Start 11/05/19 at 08:45; Stop 11/05/19 at 08:50; Status DC Dexamethasone Sodium Phosphate (Decadron) 4 mg Q6HRS IVP Last administered on 11/12/19at 05:35; Start 11/06/19 at 09:00 Insulin Glargine (Lantus Syringe) 40 unit QHS SQ Last administered on 11/11/19at 22:13; Start 11/07/19 at 21:00 Insulin Human Lispro (HumaLOG) 10 units TIDAC SQ Last administered on 11/11/19at 17:14; Start 11/07/19 at 16:30 Insulin Human Lispro (HumaLOG) 0-9 UNITS TIDWMEALS SQ Last administered on 11/11/19at 17:13; Start 11/07/19 at 17:00 Insulin Human Lispro (HumaLOG) 19 units 1X ONCE SQ Last administered on 11/09/19at 12:41; Start 11/09/19 at 12:15; Stop 11/09/19 at 12:16; Status DC Insulin Human Lispro (HumaLOG) 5 units 1X ONCE SQ Last administered on 11/09/19at 13:52; Start 11/09/19 at 13:30; Stop 11/09/19 at 13:31; Status DC Non-Formulary Medication 1 ea DAILY PO ; Start 11/09/19 at 16:30; Status Cancel Ondansetron HCl (Zofran) 4 mg PRN Q6HRS PRN IV NAUSEA/VOMITING; Start 11/12/19 at 07:00; Stop 11/13/19 at 06:59 Fentanyl Citrate (Fentanyl 2ml Vial) 25 mcg PRN Q5MIN PRN IV MILD PAIN 1-3; Start 11/12/19 at 07:00; Stop 11/13/19 at 06:59 Fentanyl Citrate (Fentanyl 2ml Vial) 50 mcg PRN Q5MIN PRN IV MODERATE TO SEVERE PAIN; Start 11/12/19 at 07:00; Stop 11/13/19 at 06:59 Morphine Sulfate (Morphine Sulfate) 1 mg PRN Q10MIN PRN IV SEVERE PAIN 7-10; Start 11/12/19 at 07:00; Stop 11/09/19 at 17:30; Status DC Ringer's Solution 1,000 ml @ 30 mls/hr Q24H IV ; Start 11/12/19 at 07:00; Sto p 11/12/19 at 18:59 Lidocaine HCl (Xylocaine-Mpf 1% 2ml Vial) 2 ml PRN 1X PRN ID PRIOR TO IV START; Start 11/12/19 at 07:00; Stop 11/13/19 at 06:59 Hydromorphone HCl (Dilaudid) 0.5 mg PRN Q10MIN PRN IV SEV PAIN, Second choice; Start 11/12/19 at 07:00; Stop 11/13/19 at 06:59 Prochlorperazine Edisylate (Compazine) 5 mg PACU PRN PRN IV NAUSEA, MRX1; Start 11/12/19 at 07:00; Stop 11/13/19 at 06:59 Pantoprazole Sodium (Protonix) 40 mg DAILYAC PO Last administered on 11/11/19at 06:29; Start 11/09/19 at 18:30 Levetiracetam (Keppra) 500 mg BID PO Last administered on 11/11/19at 21:46; Start 11/09/19 at 21:00 Non-Formulary Medication 1 ea DAILY PO ; Start 11/12/19 at 09:00 Insulin Human Lispro (HumaLOG) 8 units 1X ONCE SQ Last administered on 11/10/19at 12:32; Start 11/10/19 at 12:15; Stop 11/10/19 at 12:16; Status DC Propofol 20 ml @ As Directed STK-MED ONCE IV ; Start 11/12/19 at 07:48; Stop 11/12/19 at 07:48; Status DC Dexamethasone Sodium Phosphate (Decadron) 20 mg STK-MED ONCE .ROUTE ; Start 11/12/19 at 07:48; Stop 11/12/19 at 07:48; Status DC Lidocaine HCl (Lidocaine Pf 2% Vial) 5 ml STK-MED ONCE .ROUTE ; Start 11/12/19 at 07:48; Stop 11/12/19 at 07:48; Status DC Ondansetron HCl (Zofran) 4 mg STK-MED ONCE .ROUTE ; Start 11/12/19 at 07:48; Stop 11/12/19 at 07:48; Status DC Phenylephrine HCl (Tony-Synephrine Inj) 10 mg STK-MED ONCE .ROUTE ; Start 11/12/19 at 07:48; Stop 11/12/19 at 07:48; Status DC Propofol 50 ml @ As Directed STK-MED ONCE IV ; Start 11/12/19 at 07:48; Stop 11/12/19 at 07:48; Status DC Rocuronium [place] (Zemuron) 50 mg STK-MED ONCE .ROUTE ; Start 11/12/19 at 07:48; Stop 11/12/19 at 07:48; Status DC Remifentanil HCl (Ultiva) 2 mg STK-MED ONCE IV ; Start 11/12/19 at 07:48; Stop 11/12/19 at 07:49; Status DC Sodium Chloride (SODIUM CHLORIDE 20ml) 20 ml STK-MED ONCE IJ ; Start 11/12/19 at 07:49; Stop 11/12/19 at 07:49; Status DC Multi-Ingred Cream/Lotion/Oil/ Oint (Artificial Tears Eye Ointment) 7 raza STK- MED ONCE .ROUTE ; Start 11/12/19 at 07:49; Stop 11/12/19 at 07:49; Status DC Bacitracin 07117 unit/Sodium Chloride 1,000 ml @ 1,000 mls/hr 1X ONCE IRR ; Start 11/12/19 at 07:57; Stop 11/12/19 at 08:56 Sodium Chloride (SODIUM CHLORIDE 20ml) 20 ml STK-MED ONCE IJ ; Start 11/12/19 at 07:57; Stop 11/12/19 at 07:57; Status DC Gelatin (Gelfoam Size 100) 1 each STK-MED ONCE .ROUTE ; Start 11/12/19 at 07:59; Stop 11/12/19 at 07:59; Status DC Cellulose (Surgicel Hemostat 4x8) 1 each STK-MED ONCE .ROUTE ; Start 11/12/19 at 07:59; Stop 11/12/19 at 08:00; Status DC Lidocaine/ Epinephrine (LIDOCAINE 1%-EPI 1:100,000 Multi-Dose) 20 ml STK-MED ONCE .ROUTE ; Start 11/12/19 at 07:59; Stop 11/12/19 at 08:00; Status DC Active Scripts Active Enoxaparin Sodium 120 Mg/0.8 Ml Disp.syrin 120 Mg SQ Q12HR 28 Days Dexamethasone 4 Mg Tablet 4 Mg PO BID 14 Days Culturelle (Lactobacillus Rhamnosus Gg) 1 Each Cap.sprink 1 Cap PO BID 30 Days Amlodipine Besylate 5 Mg Tablet 5 Mg PO DAILY 30 Days Cefdinir 300 Mg Capsule 300 Mg PO BID 10 Days Reported Cymbalta (Duloxetine Hcl) 60 Mg Capsule.dr 1 Cap PO BID Lyrica (Pregabalin) 150 Mg Capsule 1 Cap PO BID Novolog (Insulin Aspart) 100 Unit/1 Ml Cartridge 10-45 Unit SQ QIDACHS Levemir (Insulin Detemir) 100 Unit/1 Ml Vial 30 Unit SQ HS Linzess (Linaclotide) 145 Mcg Capsule 145 Mcg PO PRN PRN Crestor (Rosuvastatin Calcium) 40 Mg Tablet 0.5 Tab PO DAILY Polyethylene Glycol 3350 2,500 Gm Powder 17 Gm PO PRN PRN Xanax (Alprazolam) 1 Mg Tablet 1 Tab PO TID Restasis (Cyclosporine) 1 Each Droperette 1 Drop EACHEYE BID Proair Hfa Inhaler (Albuterol Sulfate) 8.5 Gm Hfa.aer.ad 1 Puff INH PRN Q6HRS PRN Tramadol Hcl 50 Mg Tablet 1 Tab PO PRN Q8HRS PRN Ondansetron Hcl 4 Mg Tablet 2 Tab PO PRN Q8HRS PRN Nystatin 15 Gm Powder 1 [place] TP BID Lidocaine PATCH (Lidocaine) 1 Each Adh..patch 1 Each TP DAILY Fluticasone Propionate Nasal [place] (Fluticasone Propionate) 16 Gm [place].susp 2 [place] NS DAILY Percocet 5-325 Mg Tablet (Oxycodone/Acetaminophen) 1 Each Tablet 1-2 Tab PO Q4-6HRS PRN LAST DOSE AT NEXT DOSE Senna-Docusate Sodium Tablet (Sennosides/Docusate Sodium) 1 Each Tablet 1 Each PO BID LAST DOSE THIS AM NEXT DOSE TONIGHT Robaxin-750 (Methocarbamol) 750 Mg Tablet 1 Tab PO TID LAST DOSE AT 1400 (2PM) MAY HAVE THE NEXT DOSE AT 10 PM Protonix (Pantoprazole Sodium) 40 Mg Tablet.dr 40 Mg PO DAILY LST DOSE THIS AM NEXT DOSE TOMORROW AM Carafate (Sucralfate) 1 Gm Tablet 1 Tab PO TID Meds not given this hospital admission. May resume home medications as approved by Physician. MAY TAKE WHEN AVAILABLE Xarelto (Rivaroxaban) 15 Mg Tablet 15 Mg PO DAILY Meds not given this hospital admission. May resume home medications as approved by Physician. MAY RESUME WHEN AVAILABLE Metoprolol Succinate ( Xl ) (Metoprolol Succinate) 100 Mg Tab.er.24h 100 Mg PO HS LAST DOSE THIS AM NEXT DOSE TOMORROW AM Vitals/I & O Vital Sign - Last 24 Hours 11/11/19 11/11/19 11/11/19 11/11/19 08:19 09:19 11:59 12:04 Temp 97.9 97.9 Pulse 80 82 Resp 20 B/P (MAP) 123/82 110/60 (77) Pulse Ox 98 O2 Delivery Nasal Cannula Nasal Cannula Room Air O2 Flow Rate 2.0 2.0 11/11/19 11/11/19 11/11/19 11/11/19 12:35 13:39 15:00 15:59 Temp 98.0 98.0 Pulse 78 Resp 20 B/P (MAP) 122/67 (85) Pulse Ox 98 O2 Delivery Room Air Room Air Room Air Nasal Cannula O2 Flow Rate 2.0 11/11/19 11/11/19 11/11/19 11/11/19 16:24 17:06 19:00 19:46 Temp 98.2 98.2 Pulse 86 Resp 18 18 B/P (MAP) 127/68 (87) Pulse Ox 96 98 O2 Delivery Room Air Room Air Room Air Room Air O2 Flow Rate 2.0 2.0 11/11/19 11/11/19 11/11/19 11/11/19 20:00 20:36 20:46 21:06 Resp 20 16 18 Pulse Ox 98 98 98 O2 Delivery Room Air Room Air Room Air Room Air O2 Flow Rate 2.0 2.0 2.0 11/11/19 11/11/19 11/12/19 11/12/19 21:46 23:00 00:28 00:58 Temp 98.0 98.0 Pulse 86 83 Resp 18 18 18 B/P (MAP) 127/68 125/63 (83) Pulse Ox 94 94 94 O2 Delivery Room Air Room Air Room Air O2 Flow Rate 2.0 2.0 11/12/19 11/12/19 11/12/19 11/12/19 02:14 03:14 04:29 04:59 Resp 20 18 16 20 Pulse Ox 94 94 94 94 O2 Delivery Room Air Room Air Room Air Room Air O2 Flow Rate 2.0 2.0 2.0 2.0 11/12/19 07:50 O2 Delivery Room Air Intake and Output 11/11/19 11/11/19 11/12/19 15:00 23:00 07:00 Intake Total 0 ml Output Total 2900 ml 2050 ml Balance -2900 ml -2050 ml Nutrition Consultation Dietary Evaluation: Recommendations by RD: Dietary education by RD, Increase Calorie Intake, Protein supplementation Comments: REC continue ADA/cardiac diet ,glucerna Expected Outcomes/Goals: PO intake to meet >75% est needs- met at times, goal ongoing Interpretation of weight loss: >5% in 1 month Malnutrition Findings: Food and Nutrition Intake (Sev: <50% est energy req 5days Weight Status: Morbidly Obese DEVEN BAZZI MD Nov 12, 2019 08:09
[2019-11-12] MEDS ORDERED: DESFLURANE > 120 MINUTES IH ONE (08:11)
[2019-11-12] MEDS ORDERED: INSULIN REGULAR VIAL 100 UNIT in IV NORMAL SALINE 100ML IV ONE (08:15)
[2019-11-12] MEDS ORDERED: GADOTERATE 7.5 MMOL/15ML VIAL. IVP ONE (08:15)
[2019-11-12] MEDS ORDERED: INSULIN LISPRO 300 UNITS/3 ML VIAL. SQ ONE (08:15)
--- NOTE | 2019-11-12 08:15 | NUR ---
PATIENT LEAVES THE UNIT FOR MRI PER BED THEN TO SURGERY, EMOTIONAL SUPPORT GIVEN, FAMILY MEMBERS AT THE BEDSIDE AND ENCOURAGED PER THIS PRODUCE INSPECTOR TO GO DOWN TO SURGERY WAITING ROOM TO BE KEPT INFORMED OF PATIENTS STATUS IN SURGERY, EMOTIONAL SUPPORT GIVEN, AM MEDS HELD DUE TO PATIENT NPO AT THIS TIME.
[2019-11-12] MEDS ORDERED: MIDAZOLAM HCL/PF 2 MG/2 ML VIAL. ONE (08:20)
[2019-11-12] MEDS ORDERED: fentaNYL PF VIAL 100 MCG/2 ML VIAL ONE (08:20)
[2019-11-12] MEDS: amLODIPine BESYLATE 5 MG TABLET PO SCH (09:00)
[2019-11-12] MEDS ORDERED: MANNITOL 25% 12.5 G/50 ML VIAL FOR OR. ONE (09:22)
[2019-11-12] MEDS ORDERED: LIDOCAINE 1% PF 2 ML VIAL. ONE (09:24)
--- NOTE | 2019-11-12 09:34 | PDOC ---
PROGRESS NOTES Subjective Subjective Denies acute changes. ROS - denies cp, soa, emesis Objective Objective Vital Signs Date Time Temp Pulse Resp B/P (MAP) Pulse Ox O2 Delivery O2 Flow Rate FiO2 11/12/19 08:10 19 92 Room Air 11/12/19 07:00 97.9 71 134/78 (96) 97.9 11/12/19 04:59 2.0 Intake and Output 11/12/19 07:00 Intake Total 0 ml Output Total 4950 ml Balance -4950 ml Intake Oral 0 ml Output Urine Total 4950 ml Physical Exam Physical Exam AAOx4, NAD, LLANES stable, sensation unchanged LT Assessment Assessment Problems Medical Problems: (1) Abdominal hemorrhage Status: Acute (2) Generalized weakness Status: Acute (3) Lactic acidosis Status: Acute (4) Leukocytosis Status: Acute Plan Plan of Care -craniotomy for brain mass today Comment Review of Relevant I have reviewed the following items mustapha (where applicable) has been applied. Labs Laboratory Tests Test 11/10/19 12:01 11/10/19 13:30 11/10/19 14:56 11/10/19 17:02 Glucose (Fingerstick) 359 mg/dL (70-99) 240 mg/dL (70-99) 262 mg/dL (70-99) Urine Collection Type Unknown Urine Color Yellow Urine Clarity Clear Urine pH 6.5 Urine Specific [place] 1.025 Urine Protein Negative mg/dL (NEG-TRACE) Urine Glucose (UA) >=1000 mg/dL (NEG) Urine Ketones (Stick) Negative mg/dL (NEG) Urine Blood Negative (NEG) Urine Nitrite Negative (NEG) Urine Bilirubin Negative (NEG) Urine Urobilinogen Dipstick 1.0 mg/dL (0.2 mg/dL) Urine Leukocyte Esterase Trace (NEG) Urine RBC 0 /HPF (0-2) Urine WBC 5-10 /HPF (0-4) Urine Bacteria Moderate /HPF (0-FEW) Urine Yeast Present /HPF Test 11/10/19 20:39 11/11/19 08:04 11/11/19 11:45 11/11/19 16:38 Glucose (Fingerstick) 264 mg/dL (70-99) 302 mg/dL (70-99) 345 mg/dL (70-99) 350 mg/dL (70-99) Test 11/11/19 20:37 11/12/19 04:55 11/12/19 07:43 Glucose (Fingerstick) 288 mg/dL (70-99) 360 mg/dL (70-99) White Blood Count 42.9 x10^3/uL (4.0-11.0) Red Blood Count 3.36 x10^6/uL (3.50-5.40) Hemoglobin 9.9 g/dL (12.0-15.5) Hematocrit 30.8 % (36.0-47.0) Mean Corpuscular Volume 92 fL (79-100) Mean Corpuscular Hemoglobin 29 pg (25-35) Mean Corpuscular Hemoglobin Concent 32 g/dL (31-37) Red Cell Distribution Width 17.2 % (11.5-14.5) Platelet Count 461 x10^3/uL (140-400) Neutrophils (%) (Auto) 95 % (31-73) Lymphocytes (%) (Auto) 3 % (24-48) Monocytes (%) (Auto) 2 % (0-9) Eosinophils (%) (Auto) 0 % (0-3) Basophils (%) (Auto) 0 % (0-3) Neutrophils # (Auto) 40.8 x10^3/uL (1.8-7.7) Lymphocytes # (Auto) 1.2 x10^3/uL (1.0-4.8) Monocytes # (Auto) 0.8 x10^3/uL (0.0-1.1) Eosinophils # (Auto) 0.0 x10^3/uL (0.0-0.7) Basophils # (Auto) 0.1 x10^3/uL (0.0-0.2) Segmented Neutrophils % 76 % (35-66) Band Neutrophils % 9 % (0-9) Lymphocytes % 3 % (24-48) Monocytes % 1 % (0-10) Metamyelocytes % 6 % (0-0) Myelocytes % 5 % (0-0) Platelet Estimate Increased (ADEQUATE) Polychromasia Mod Anisocytosis Mod Prothrombin Time 13.4 SEC (11.7-14.0) Prothromb Time International Ratio 1.1 (0.8-1.1) Activated Partial Thromboplast Time 22 SEC (24-38) Sodium Level 137 mmol/L (136-145) Potassium Level 4.4 mmol/L (3.5-5.1) Chloride Level 100 mmol/L (98-107) Carbon Dioxide Level 28 mmol/L (21-32) Anion Gap 9 (6-14) Blood Urea Nitrogen 23 mg/dL (7-20) Creatinine 0.7 mg/dL (0.6-1.0) Estimated GFR (Cockcroft-Gault) 89.7 Glucose Level 384 mg/dL (70-99) Calcium Level 8.1 mg/dL (8.5-10.1) Laboratory Tests Test 11/11/19 11:45 11/11/19 16:38 11/11/19 20:37 11/12/19 04:55 Glucose (Fingerstick) 345 mg/dL (70-99) 350 mg/dL (70-99) 288 mg/dL (70-99) White Blood Count 42.9 x10^3/uL (4.0-11.0) Red Blood Count 3.36 x10^6/uL (3.50-5.40) Hemoglobin 9.9 g/dL (12.0-15.5) Hematocrit 30.8 % (36.0-47.0) Mean Corpuscular Volume 92 fL (79-100) Mean Corpuscular Hemoglobin 29 pg (25-35) Mean Corpuscular Hemoglobin Concent 32 g/dL (31-37) Red Cell Distribution Width 17.2 % (11.5-14.5) Platelet Count 461 x10^3/uL (140-400) Neutrophils (%) (Auto) 95 % (31-73) Lymphocytes (%) (Auto) 3 % (24-48) Monocytes (%) (Auto) 2 % (0-9) Eosinophils (%) (Auto) 0 % (0-3) Basophils (%) (Auto) 0 % (0-3) Neutrophils # (Auto) 40.8 x10^3/uL (1.8-7.7) Lymphocytes # (Auto) 1.2 x10^3/uL (1.0-4.8) Monocytes # (Auto) 0.8 x10^3/uL (0.0-1.1) Eosinophils # (Auto) 0.0 x10^3/uL (0.0-0.7) Basophils # (Auto) 0.1 x10^3/uL (0.0-0.2) Segmented Neutrophils % 76 % (35-66) Band Neutrophils % 9 % (0-9) Lymphocytes % 3 % (24-48) Monocytes % 1 % (0-10) Metamyelocytes % 6 % (0-0) Myelocytes % 5 % (0-0) Platelet Estimate Increased (ADEQUATE) Polychromasia Mod Anisocytosis Mod Prothrombin Time 13.4 SEC (11.7-14.0) Prothromb Time International Ratio 1.1 (0.8-1.1) Activated Partial Thromboplast Time 22 SEC (24-38) Sodium Level 137 mmol/L (136-145) Potassium Level 4.4 mmol/L (3.5-5.1) Chloride Level 100 mmol/L (98-107) Carbon Dioxide Level 28 mmol/L (21-32) Anion Gap 9 (6-14) Blood Urea Nitrogen 23 mg/dL (7-20) Creatinine 0.7 mg/dL (0.6-1.0) Estimated GFR (Cockcroft-Gault) 89.7 Glucose Level 384 mg/dL (70-99) Calcium Level 8.1 mg/dL (8.5-10.1) Test 11/12/19 07:43 Glucose (Fingerstick) 360 mg/dL (70-99) Microbiology 11/01/19 Blood Culture - Final, Complete NO GROWTH AFTER 5 DAYS Medications Current Medications Sodium Chloride 500 ml @ 500 mls/hr 1X ONCE IV Last administered on 11/01/19at 13:00; Start 11/01/19 at 13:00; Stop 11/01/19 at 13:59; Status DC Ondansetron HCl (Zofran) 4 mg 1X ONCE IV Last administered on 11/01/19at 13:26; Start 11/01/19 at 13:00; Stop 11/01/19 at 13:13; Status DC Hydromorphone HCl (Dilaudid) 0.5 mg 1X STAT IVP Last administered on 11/01/19at 13:26; Start 11/01/19 at 12:59; Stop 11/01/19 at 13:13; Status DC Iohexol (Omnipaque 300 Mg/ml) 75 ml 1X ONCE IV Last administered on 11/01/19at 14:08; Start 11/01/19 at 13:45; Stop 11/01/19 at 13:46; Status DC Info (CONTRAST GIVEN -- Rx MONITORING) 1 each PRN DAILY PRN MC SEE COMMENTS; Start 11/01/19 at 14:00; Stop 11/03/19 at 13:59; Status DC Hydromorphone HCl (Dilaudid) 0.5 mg 1X STAT IVP Last administered on 11/01/19at 16:53; Start 11/01/19 at 16:21; Stop 11/01/19 at 16:23; Status DC Sodium Chloride 1,000 ml @ 1,000 mls/hr 1X ONCE IV Last administered on 11/01at 16:30; Start 11/01/19 at 16:30; Stop 11/01/19 at 17:29; Status DC Sodium Chloride 500 ml @ 500 mls/hr 1X ONCE IV Last administered on 11/01/19at 16:30; Start 11/01/19 at 16:30; Stop 11/01/19 at 17:29; Status DC Albuterol Sulfate (Ventolin Neb Soln) 2.5 mg PRN Q6HRS PRN INH SHORTNESS OF BREATH; Start 11/01/19 at 16:30; Status Cancel Alprazolam (Xanax) 0.25 mg PRN TID PRN PO anxiety; Start 11/01/19 at 16:30; Stop 11/01/19 at 17:11; Status DC Amlodipine Besylate (Norvasc) 5 mg DAILY PO Last administered on 11/11/19at 09:19; Start 11/02/19 at 09:00 Cyclosporine (Restasis) 1 drop BID OU Last administered on 11/11/19at 21:46; Start 11/01/19 at 21:00 Fluticasone Propionate (Flonase) 2 spray DAILY NS Last administered on 11/11/19at 08:19; Start 11/02/19 at 09:00 Lactobacillus Rhamnosus (Culturelle) 1 cap BID PO Last administered on 11/09/19at 08:28; Start 11/01/19 at 21:00; Stop 11/09/19 at 16:57; Status DC Lidocaine (Lidoderm) 1 patch DAILY TP ; Start 11/02/19 at 09:00; Stop 11/01/19 at 20:34; Status DC Metoprolol Succinate (Toprol Xl) 100 mg HS PO Last administered on 11/11/19at 21:46; Start 11/01/19 at 21:00 Nystatin (Nystop) 1 raza BID TP Last administered on 11/11/19at 08:19; Start 11/01/19 at 21:00 Pantoprazole Sodium (Protonix) 40 mg DAILYAC PO Last administered on 11/09/19 08:28; Start 11/02/19 at 07:30; Stop 11/09/19 at 16:54; Status DC Senna/Docusate Sodium (Senna Plus) 1 tab BID PO Last administered on 11/11/19at 21:46; Start 11/01/19 at 21:00 Sucralfate (Carafate) 1 gm TIDAC PO Last administered on 11/11/19at 16:23; Start 11/01/19 at 17:30 Tramadol HCl (Ultram) 50 mg PRN Q8HRS PRN PO PAIN; Start 11/01/19 at 16:30; Stop 11/01/19 at 19:43; Status DC Insulin Glargine (Lantus Syringe) 30 unit QHS SQ Last administered on 11/06/19at 21:16; Start 11/01/19 at 21:00; Stop 11/07/19 at 15:56; Status DC Ondansetron HCl (Zofran Odt) 8 mg PRN Q8HRS PRN PO NAUSEA/VOMITING Last administered on 11/07/19at 13:05; Start 11/01/19 at 17:15 Polyethylene Glycol (miraLAX PACKET) 17 gm PRN DAILY PRN PO CONSTIPATION, 1ST CHOICE Last administered on 11/11/19at 08:18; Start 11/01/19 at 17:11 Atorvastatin Calcium (Lipitor) 80 mg QHS PO Last administered on 11/11/19at 21:45; Start 11/01/19 at 21:00 Insulin Human Lispro (HumaLOG) 0-9 UNITS TIDAC SQ Last administered on 11/07/19at 12:20; Start 11/01/19 at 16:30; Stop 11/07/19 at 15:56; Status DC Dextrose (Dextrose 50%-Water Syringe) 12.5 gm PRN Q15MIN PRN IV SEE COMMENTS; Start 11/01/19 at 16:30 Ondansetron HCl (Zofran) 4 mg PRN Q8HRS PRN IV NAUSEA/VOMITING; Start 11/01/19 at 16:30; Stop 11/02/19 at 16:29; Status DC Alprazolam (Xanax) 0.25 mg PRN TID PRN PO anxiety Last administered on 11/12/19at 04:37; Start 11/01/19 at 17:11 Miscellaneous (Lidoderm Patch Removal) 1 ea QHS MC ; Start 11/01/19 at 21:00; Stop 11/01/19 at 20:34; Status DC Ceftriaxone Sodium (Rocephin) 1 gm QHS IVP Last administered on 11/11/19at 21:45; Start 11/01/19 at 18:45 Tramadol HCl (Ultram) 50 mg PRN Q8HRS PRN PO MILD PAIN 1-3 Last administered on 11/05/19at 22:04; Start 11/01/19 at 19:45 Hydromorphone HCl (Dilaudid) 1 mg PRN Q4HRS PRN IV PAIN Last administered on 11/12/19at 08:10; Start 11/01/19 at 20:15 Lidocaine (Lidoderm) 1 patch QHS TP Last administered on 11/04/19at 21:55; Start 11/01/19 at 21:00 Miscellaneous (Lidoderm Patch Removal) 1 ea DAILY MC Last administered on 11/07/19at 09:00; Start 11/02/19 at 09:00 Albumin Human 500 ml @ 125 mls/hr 1X ONCE IV ; Start 11/02/19 at 02:00; Stop 11/02/19 at 05:59; Status Cancel Acetaminophen (Tylenol) 650 mg 1X PRN PRN PO PRE-TRANSFUSION; Start 11/02/19 at 06:45; Stop 11/03/19 at 14:16; Status DC Diphenhydramine HCl (Benadryl Oral Elixir) 12.5 mg 1X PRN PRN PO PRE- TRANSFUSION; Start 11/02/19 at 06:45; Stop 11/03/19 at 14:16; Status DC Diphenhydramine HCl (Benadryl) 25 mg PRN 1X PRN PO PRE-TRANSFUSION; Start 11/02/19 at 06:45; Stop 11/03/19 at 14:16; Status DC Lactulose (LACTULOSE 300ML for RECTAL) 200 gm Q6HRS KS Last administered on 11/02/19at 18:00; Start 11/02/19 at 18:00; Stop 11/04/19 at 14:44; Status DC Sodium Chloride 1,000 ml @ 100 mls/hr Q10H IV Last administered on 11/12/19at 02:14; Start 11/02/19 at 12:00 Lactulose (Lactulose) 20 gm PRN DAILY PRN PO CONSTIPATION, 2ND CHOICE; Start 11/04/19 at 14:45 Oxycodone HCl (Roxicodone) 5 mg PRN Q6HRS PRN PO MODERATE TO SEVERE PAIN Last administered on 11/12/19at 02:14; Start 11/04/19 at 14:45 Lidocaine HCl (Buffered Lidocaine 1%) 3 ml STK-MED ONCE .ROUTE ; Start 11/05/19 at 08:13; Stop 11/05/19 at 08:13; Status DC Lidocaine HCl (Buffered Lidocaine 1%) 3 ml STK-MED ONCE .ROUTE ; Start 11/05/19 at 08:14; Stop 11/05/19 at 08:14; Status DC Midazolam HCl (Versed) 2 mg STK-MED ONCE .ROUTE ; Start 11/05/19 at 08:40; Stop 11/05/19 at 08:40; Status DC Fentanyl Citrate (Fentanyl 2ml Vial) 100 mcg STK-MED ONCE .ROUTE ; Start 11/05/19 at 08:40; Stop 11/05/19 at 08:41; Status DC Lidocaine HCl (Buffered Lidocaine 1%) 3 ml 1X ONCE IJ Last administered on 11/05/19at 08:45; Start 11/05/19 at 08:45; Stop 11/05/19 at 08:50; Status DC Midazolam HCl (Versed) 2 mg 1X ONCE IV Last administered on 11/05/19at 08:45; Start 11/05/19 at 08:45; Stop 11/05/19 at 08:50; Status DC Fentanyl Citrate (Fentanyl 2ml Vial) 100 mcg 1X ONCE IV Last administered on 11/05/19at 08:45; Start 11/05/19 at 08:45; Stop 11/05/19 at 08:50; Status DC Dexamethasone Sodium Phosphate (Decadron) 4 mg Q6HRS IVP Last administered on 11/12/19at 05:35; Start 11/06/19 at 09:00 Insulin Glargine (Lantus Syringe) 40 unit QHS SQ Last administered on 9at 22:13; Start 11/07/19 at 21:00 Insulin Human Lispro (HumaLOG) 10 units TIDAC SQ Last administered on 11/11/19at 17:14; Start 11/07/19 at 16:30 Insulin Human Lispro (HumaLOG) 0-9 UNITS TIDWMEALS SQ Last administered on 11/11/19at 17:13; Start 11/07/19 at 17:00 Insulin Human Lispro (HumaLOG) 19 units 1X ONCE SQ Last administered on 11/09/19at 12:41; Start 11/09/19 at 12:15; Stop 11/09/19 at 12:16; Status DC Insulin Human Lispro (HumaLOG) 5 units 1X ONCE SQ Last administered on 11/09/19at 13:52; Start 11/09/19 at 13:30; Stop 11/09/19 at 13:31; Status DC Non-Formulary Medication 1 ea DAILY PO ; Start 11/09/19 at 16:30; Status Cancel Ondansetron HCl (Zofran) 4 mg PRN Q6HRS PRN IV NAUSEA/VOMITING; Start 11/12/19 at 07:00; Stop 11/13/19 at 06:59 Fentanyl Citrate (Fentanyl 2ml Vial) 25 mcg PRN Q5MIN PRN IV MILD PAIN 1-3; Start 11/12/19 at 07:00; Stop 11/13/19 at 06:59 Fentanyl Citrate (Fentanyl 2ml Vial) 50 mcg PRN Q5MIN PRN IV MODERATE TO SEVERE PAIN; Start 11/12/19 at 07:00; Stop 11/13/19 at 06:59 Morphine Sulfate (Morphine Sulfate) 1 mg PRN Q10MIN PRN IV SEVERE PAIN 7-10; Start 11/12/19 at 07:00; Stop 11/09/19 at 17:30; Status DC Ringer's Solution 1,000 ml @ 30 mls/hr Q24H IV ; Start 11/12/19 at 07:00; Stop 11/12/19 at 18:59 Lidocaine HCl (Xylocaine-Mpf 1% 2ml Vial) 2 ml PRN 1X PRN ID PRIOR TO IV START; Start 11/12/19 at 07:00; Stop 11/13/19 at 06:59 Hydromorphone HCl (Dilaudid) 0.5 mg PRN Q10MIN PRN IV SEV PAIN, Second choice; Start 11/12/19 at 07:00; Stop 11/13/19 at 06:59 Prochlorperazine Edisylate (Compazine) 5 mg PACU PRN PRN IV NAUSEA, MRX1; Start 11/12/19 at 07:00; Stop 11/13/19 at 06:59 Pantoprazole Sodium (Protonix) 40 mg DAILYAC PO Last administered on 11/11/19at 06:29; Start 11/09/19 at 18:30 Levetiracetam (Keppra) 500 mg BID PO Last administered on 11/11/19at 21:46; Start 11/09/19 at 21:00 Non-Formulary Medication 1 ea DAILY PO ; Start 11/12/19 at 09:00 Insulin Human Lispro (HumaLOG) 8 units 1X ONCE SQ Last administered on 11/10/19at 12:32; Start 11/10/19 at 12:15; Stop 11/10/19 at 12:16; Status DC Propofol 20 ml @ As Directed STK-MED ONCE IV ; Start 11/12/19 at 07:48; Stop 11/12/19 at 07:48; Status DC Dexamethasone Sodium Phosphate (Decadron) 20 mg STK-MED ONCE .ROUTE ; Start 11/12/19 at 07:48; Stop 11/12/19 at 07:48; Status DC Lidocaine HCl (Lidocaine Pf 2% Vial) 5 ml STK-MED ONCE .ROUTE ; Start 11/12/19 at 07:48; Stop 11/12/19 at 07:48; Status DC Ondansetron HCl (Zofran) 4 mg STK-MED ONCE .ROUTE ; Start 11/12/19 at 07:48; Stop 11/12/19 at 07:48; Status DC Phenylephrine HCl (Tony-Synephrine Inj) 10 mg STK-MED ONCE .ROUTE ; Start 11/12/19 at 07:48; Stop 11/12/19 at 07:48; Status DC Propofol 50 ml @ As Directed STK-MED ONCE IV ; Start 11/12/19 at 07:48; Stop 11/12/19 at 07:48; Status DC Rocuronium [place] (Zemuron) 50 mg STK-MED ONCE .ROUTE ; Start 11/12/19 at 07:48; Stop 11/12/19 at 07:48; Status DC Remifentanil HCl (Ultiva) 2 mg STK-MED ONCE IV ; Start 11/12/19 at 07:48; Stop 11/12/19 at 07:49; Status DC Sodium Chloride (SODIUM CHLORIDE 20ml) 20 ml STK-MED ONCE IJ ; Start 11/12/19 at 07:49; Stop 11/12/19 at 07:49; Status DC Multi-Ingred Cream/Lotion/Oil/ Oint (Artificial Tears Eye Ointment) 7 raza STK- MED ONCE .ROUTE ; Start 11/12/19 at 07:49; Stop 11/12/19 at 07:49; Status DC Bacitracin 80017 unit/Sodium Chloride 1,000 ml @ 1,000 mls/hr 1X ONCE IRR ; Start 11/12/19 at 07:57; Stop 11/12/19 at 08:56; Status DC Sodium Chloride (SODIUM CHLORIDE 20ml) 20 ml STK-MED ONCE IJ ; Start 11/12/19 at 07:57; Stop 11/12/19 at 07:57; Status DC Gelatin (Gelfoam Size 100) 1 each STK-MED ONCE .ROUTE ; Start 11/12/19 at 07:59; Stop 11/12/19 at 07:59; Status DC Cellulose (Surgicel Hemostat 4x8) 1 each STK-MED ONCE .ROUTE ; Start 11/12/19 at 07:59; Stop 11/12/19 at 08:00; Status DC Lidocaine/ Epinephrine (LIDOCAINE 1%-EPI 1:100,000 Multi-Dose) 20 ml STK-MED ONCE .ROUTE ; Start 11/12/19 at 07:59; Stop 11/12/19 at 08:00; Status DC Thrombin 20,000 unit STK-MED ONCE TP ; Start 11/12/19 at 08:00; Stop 11/12/19 at 08:00; Status DC Bacitracin (Bacitracin Zinc Oint Pkt) 1 pkt STK-MED ONCE TP ; Start 11/12/19 at 08:00; Stop 11/12/19 at 08:00; Status DC Propofol 200 ml @ As Directed STK-MED ONCE IV ; Start 11/12/19 at 08:02; Stop 11/12/19 at 08:02; Status DC Insulin Human Lispro (HumaLOG) 11 units 1X ONCE SQ Last administered on 11/12/19at 08:15; Start 11/12/19 at 08:15; Stop 11/12/19 at 08:16; Status DC Gadoterate Meglumine (Dotarem) 24.8 ml 1X ONCE IVP Last administered on 11/12/19at 08:15; Start 11/12/19 at 08:15; Stop 11/12/19 at 08:16; Status DC Insulin Human Regular 100 unit/ Sodium Chloride 101 ml @ 12.484 mls/ hr ONCE ONCE IV ; Start 11/12/19 at 08:15; Stop 11/12/19 at 16:20 Desflurane (Suprane) 90 ml STK-MED ONCE IH ; Start 11/12/19 at 08:11; Stop 11/12/19 at 08:11; Status DC Fentanyl Citrate (Fentanyl 2ml Vial) 100 mcg STK-MED ONCE .ROUTE ; Start 11/12/19 at 08:20; Stop 11/12/19 at 08:20; Status DC Midazolam HCl (Versed) 2 mg STK-MED ONCE .ROUTE ; Start 11/12/19 at 08:20; Stop 11/12/19 at 08:20; Status DC Rocuronium [place] (Zemuron) 50 mg STK-MED ONCE .ROUTE ; Start 11/12/19 at 09:11; Stop 11/12/19 at 09:12; Status DC Mannitol (Mannitol) 12.5 g STK-MED ONCE .ROUTE ; Start 11/12/19 at 09:22; Stop 11/12/19 at 09:23; Status DC Propofol 100 ml @ As Directed STK-MED ONCE IV ; Start 11/12/19 at 09:22; Stop 11/12/19 at 09:23; Status DC Lidocaine HCl (Xylocaine-Mpf 1% 2ml Vial) 2 ml STK-MED ONCE .ROUTE ; Start 11/12/19 at 09:24; Stop 11/12/19 at 09:24; Status DC Active Scripts Active Enoxaparin Sodium 120 Mg/0.8 Ml Disp.syrin 120 Mg SQ Q12HR 28 Days Dexamethasone 4 Mg Tablet 4 Mg PO BID 14 Days Culturelle (Lactobacillus Rhamnosus Gg) 1 Each Cap.sprink 1 Cap PO BID 30 Days Amlodipine Besylate 5 Mg Tablet 5 Mg PO DAILY 30 Days Cefdinir 300 Mg Capsule 300 Mg PO BID 10 Days Reported Cymbalta (Duloxetine Hcl) 60 Mg Capsule.dr 1 Cap PO BID Lyrica (Pregabalin) 150 Mg Capsule 1 Cap PO BID Novolog (Insulin Aspart) 100 Unit/1 Ml Cartridge 10-45 Unit SQ QIDACHS Levemir (Insulin Detemir) 100 Unit/1 Ml Vial 30 Unit SQ HS Linzess (Linaclotide) 145 Mcg Capsule 145 Mcg PO PRN PRN Crestor (Rosuvastatin Calcium) 40 Mg Tablet 0.5 Tab PO DAILY Polyethylene Glycol 3350 2,500 Gm Powder 17 Gm PO PRN PRN Xanax (Alprazolam) 1 Mg Tablet 1 Tab PO TID Restasis (Cyclosporine) 1 Each Droperette 1 Drop EACHEYE BID Proair Hfa Inhaler (Albuterol Sulfate) 8.5 Gm Hfa.aer.ad 1 Puff INH PRN Q6HRS PRN Tramadol Hcl 50 Mg Tablet 1 Tab PO PRN Q8HRS PRN Ondansetron Hcl 4 Mg Tablet 2 Tab PO PRN Q8HRS PRN Nystatin 15 Gm Powder 1 [place] TP BID Lidocaine PATCH (Lidocaine) 1 Each Adh..patch 1 Each TP DAILY Fluticasone Propionate Nasal [place] (Fluticasone Propionate) 16 Gm [place].susp 2 [place] NS DAILY Percocet 5-325 Mg Tablet (Oxycodone/Acetaminophen) 1 Each Tablet 1-2 Tab PO Q4-6HRS PRN LAST DOSE AT NEXT DOSE Senna-Docusate Sodium Tablet (Sennosides/Docusate Sodium) 1 Each Tablet 1 Each PO BID LAST DOSE THIS AM NEXT DOSE TONIGHT Robaxin-750 (Methocarbamol) 750 Mg Tablet 1 Tab PO TID LAST DOSE AT 1400 (2PM) MARCH HAVE THE NEXT DOSE AT 10 PM Protonix (Pantoprazole Sodium) 40 Mg Tablet.dr 40 Mg PO DAILY LST DOSE THIS AM NEXT DOSE TOMORROW AM Carafate (Sucralfate) 1 Gm Tablet 1 Tab PO TID Meds not given this hospital admission. May resume home medications as approved by Physician. MAY TAKE WHEN AVAILABLE Xarelto (Rivaroxaban) 15 Mg Tablet 15 Mg PO DAILY Meds not given this hospital admission. May resume home medications as approved by Physician. MAY RESUME WHEN AVAILABLE Metoprolol Succinate ( Xl ) (Metoprolol Succinate) 100 Mg Tab.er.24h 100 Mg PO HS LAST DOSE THIS AM NEXT DOSE TOMORROW AM Vitals/I & O Vital Sign - Last 24 Hours 11/11/19 11/11/19 11/11/19 11/11/19 11:59 12:04 12:35 13:39 Temp 97.9 97.9 Pulse 82 Resp 20 B/P (MAP) 110/60 (77) Pulse Ox 98 O2 Delivery Nasal Cannula Room Air Room Air Room Air O2 Flow Rate 2.0 11/11/19 11/11/19 11/11/19 11/11/19 15:00 15:59 16:24 17:06 Temp 98.0 98.0 Pulse 78 Resp 20 B/P (MAP) 122/67 (85) Pulse Ox 98 O2 Delivery Room Air Nasal Cannula Room Air Room Air O2 Flow Rate 2.0 2.0 11/11/19 11/11/19 11/11/19 11/11/19 19:00 19:46 20:00 20:36 Temp 98.2 98.2 Pulse 86 Resp 18 18 20 B/P (MAP) 127/68 (87) Pulse Ox 96 98 98 O2 Delivery Room Air Room Air Room Air Room Air O2 Flow Rate 2.0 2.0 11/11/19 11/11/19 11/11/19 11/11/19 20:46 21:06 21:46 23:00 Temp 98.0 98.0 Pulse 86 83 Resp 16 18 18 B/P (MAP) 127/68 125/63 (83) Pulse Ox 98 98 94 O2 Delivery Room Air Room Air Room Air O2 Flow Rate 2.0 2.0 11/12/19 11/12/19 11/12/19 11/12/19 00:28 00:58 02:14 03:14 Resp 18 18 20 18 Pulse Ox 94 94 94 94 O2 Delivery Room Air Room Air Room Air Room Air O2 Flow Rate 2.0 2.0 2.0 2.0 11/12/19 11/12/19 11/12/19 11/12/19 04:29 04:59 07:00 07:50 Temp 97.9 97.9 Pulse 71 Resp 16 20 18 B/P (MAP) 134/78 (96) Pulse Ox 94 94 97 O2 Delivery Room Air Room Air Room Air Room Air O2 Flow Rate 2.0 2.0 11/12/19 08:10 Resp 19 Pulse Ox 92 O2 Delivery Room Air Intake and Output 11/11/19 11/11/19 11/12/19 15:00 23:00 07:00 Intake Total 0 ml Output Total 2900 ml 2050 ml Balance -2900 ml -2050 ml Nutrition Consultation Dietary Evaluation: Recommendations by RD: Dietary education by RD, Increase Calorie Intake, Protein supplementation Comments: REC continue ADA/cardiac diet ,glucerna Expected Outcomes/Goals: PO intake to meet >75% est needs- met at times, goal ongoing Interpretation of weight loss: >5% in 1 month Malnutrition Findings: Food and Nutrition Intake (Sev: <50% est energy req 5days Weight Status: Morbidly Obese BINH WELCH MD Nov 12, 2019 09:34
--- NOTE | 2019-11-12 10:01 | RAD ---
MR brain with contrast 03/13/2019 INDICATION: Stereotactic craniotomy on 11/12/2019. COMPARISON: MRI brain 10/19/2019. TECHNIQUE: T1 postcontrast images of the brain were obtained in axial dimension. FINDINGS: Imaging performed for stereotactic planning of craniotomy. There is redemonstration of a homogeneously enhancing left parietal convexity extra-axial mass measuring 3.8 x 3.9 x 3.3 cm with associated dural tail. The mass abuts the superior sagittal sinus without definite involvement on this examination. Associated vasogenic edema with minimal mass effect and midline shift to the right by approximately 8 mm, stable. There is persistent mass effect on the atria of the left lateral ventricle without hydrocephalus. No significant hypertrophied vessels are identified. IMPRESSION: Stable left parietal extra-axial mass, most suggestive of meningioma as described in detail above. Electronically signed by: Candice Romo MD (11/12/2019 9:58 AM) [id number]
[2019-11-12] MEDS ORDERED: ceFAZolin SODIUM 3 GM in IV DEXTROSE 5% 100ML 100 ML IV ONE (10:30)
--- NOTE | 2019-11-12 11:04 | NUR ---
SW following. Discussed with RN, pt having a craniotomy today. Possibility of being transferred to another floor after surgery. SW will continue to follow.
[2019-11-12] MEDS ORDERED: GELATIN SPONGE SIZE 12-7MM SPONGE. ONE ×4 (11:59→13:59)
--- NOTE | 2019-11-12 14:06 | PATHOLOGY ---
[facility] Accession Number: [id number] . 01 Material submitted: . PART A: bone - BONE MARROW BIOPSY PART B: bone - BONE MARROW CLOT PART C: bone - BONE MARROW ASPIRATE SLIDES PART D: bone - PERIPHERAL BLOOD SMEARS PART E: bone - BONE MARROW FLOW . 01 Clinical history: . Leukocytosis; brain mass, anemia, and rigth flank hematoma. . 02 Diagnosis: Peripheral smear: - Moderate neutrophilic leukocytosis with left shift, myelocyte bulge, and leukoerythroblastic reaction. - Moderate normocytic normochromic anemia. . Bone marrow, aspirate smears, clot section, and core biopsy: - Moderately to markedly hypercellular marrow showing trilineage hematopoiesis, granulocytic hyperplasia with left shift and myelocyte bulge, megakaryocytic hyperplasia with increase of dwarf megakaryocytes, and presence of BCR/ABL1 fusion or t(9;22) - findings are indicative of chronic myelogenous leukemia, chronic phase. - Absent iron stores. . (JPM:[facility]; 11/12/2019) S 11/12/2019 1312 Local . 02 Comment: The peripheral smear shows a moderate neutrophilic leukocytosis with left shift, myelocyte bulge, and leukoerythroblastic reaction, and a moderate normocytic normochromic anemia. The bone marrow is moderately to markedly hypercellular and shows trilineage hematopoiesis, granulocytic hyperplasia with left shift and myelocyte bulge, and megakaryocytic hyperplasia with increase of small (dwarf) megakaryocytes. Bone marrow submitted for cytogenetic analysis shows BCR/ABL1 fusion or t(9;22) present in 97.0% of analyzed nuclei. The findings are supportive of the diagnosis of chronic myelogenous leukemia, chronic phase. Bone marrow submitted for flow cytometric analysis revealed a small monoclonal plasma cell population. Immunophenotypic studies performed on the bone marrow biopsy and clot section reveal approximately 5% plasma cells which appear polyclonal. . (JPM:[facility]; 11/12/2019) . . Special stains performed: Iron stain on B1 and C1, retic stain on A1, immunoperoxidase stain for CD138 on A1 and B1, and in situ hybridization for kappa light chain on A1 and B1, and for lambda light chain A1 and B1. . 02 Electronically signed: . Raffaele Cerda MD, Pathologist NPI- [id number] . 01 Gross description: . A. Received in formalin labeled "Vero Alejo, A," and additionally labeled on the requisition as "BM BX," are 4 fragments of needle cores of gibbs bone ranging from 0.4-0.9 cm in length and measuring 0.2 cm each in diameter. The specimen is submitted entirely in cassette A1, following decalcification. . B. Received in formalin labeled "Vero Alejo, B," is an aggregate of dark gibbs blood clot measuring 2.5 x 1.7 x 0.1 cm. The specimen is filtered and entirely submitted in cassette B1. (TSD; 11/05/2019) TOB/TOB 11/05/2019 2209 Local . 02 Microscopic: . Laboratory Data: The WBC count is 30 K/CMM, and the WBC differential reveals 86% neutrophils, 9% lymphs, 3% monos, and 1% eos. The RBC count is 2.90 M/CMM, hemoglobin 8.5 G/DL, hematocrit 26.0%, MCV 90 FL, MCH 30 PG, MCHC 33 G/DL, and the RDW is 15.9%. The platelet count is 274 K/CMM. The total protein is 6.0 G/DL, albumin 3.0 G/DL, and the globulin is 3.0 G/DL. The serum ferritin is 82 NG/ML, serum iron 27 UG/DL, TIBC 233 UG/DL and iron saturation 12%. The patient was transfused with two units of red blood cells on 11/02/19 and one unit of red blood cells on 11/04/19. . Peripheral Smear: The peripheral smear is reviewed. There is a moderate neutrophilic leukocytosis. There is a predominance of segmented neutrophils. There is a neutrophilic left shift with several metamyelocytes and a myelocyte bulge. There is only a rare blast identified. There are a few circulating nucleated red blood cells. There are small populations of lymphocytes and monocytes. Red blood cells predominantly appear normochromic and normocytic. There is mild polychromasia. Red blood cells show no significant anisopoikilocytosis. Platelets appear normal in number and morphology with occasional large platelets noted. . Aspirate Smears: Two Villalobos's-stained and one iron-stained aspirate smears are examined. The smears contain multiple marrow particles which are obviously hypercellular for age. There is a granulocytic hyperplasia. The M/E ratio is mildly to moderately increased. Erythroid maturation appears normoblastic. There are no megaloblastic or overt dysplastic changes. There is a left shift of granulopoiesis with an increase of myelocytes (myelocyte bulge). There is no increase of blasts. Granulocytic maturation appears normal. Megakaryocytes are increased. Although megakaryocytes are of variable ploidy, there is an increased portion of small megakaryocytes having hypolobated nuclei (dwarf megakaryocytes). Only occasional plasma cells are noted. There is no significant increase of plasma cells. Lymphocytes are not increased. There are no cells foreign to the marrow. The iron stained aspirate smear shows absent iron stores. No ringed sideroblasts are identified. . Bone Marrow Biopsy and Clot Section: Sections of the bone marrow biopsy reveal segments of bone marrow which range between 60-70% and 80-90% cellular. The clot section also contains multiple marrow particles which show a similar range of cellularity. There is trilineage hematopoiesis with granulocytic hyperplasia. There is a good admixture of erythroid and granulocytic precursors, which are present in varying stages of maturation. Granulocytic precursors are present in all stages of maturation, with areas showing an increase of medium-sized immature mononuclear cells compatible with a left shift of granulopoiesis and myelocyte bulge. There is no increase of blasts. Megakaryocytes are increased and focally clustered. Although the megakaryocytes are of variable ploidy, there is an increase of small megakaryocytes having hypolobated nuclei (dwarf megakaryocytes). Plasma cells do not appear increased and there are no solid clusters of plasma cells. There are no abnormal lymphoid aggregates, granulomas, or cells foreign to the marrow. To confirm flow cytometric findings and characterize the target cells in a tissue architectural distribution, immunoperoxidase stains for CD138 and in situ hybridization for kappa and lambda light chain are obtained and yield the following results: . CD138 (A1): plasma cells positive having a scattered interstitial and focal perivascular distribution; plasma cells comprise approximately 5% of nucleated marrow cells. Sumner and lambda LEATHA (A1): plasma cells appear polyclonal. . CD138 (B1): plasma cells positive having a scattered interstitial and focal perivascular distribution; plasma cells comprise approximately 5% of nucleated marrow cells. Sumner and lambda LEATHA (B1): plasma cells appear polyclonal. . A reticulin stain obtained on the bone marrow biopsy shows focal mildly increased reticulin fibers. . An iron stain obtained on the clot section shows absent iron stores. . Special Studies: Bone marrow submitted for flow cytometric analysis has a viability of 98.9%. Granulocytes comprise 93.1% of total cells and show phenotypic evidence of maturation. Monocytes comprise 1.5% of total cells and show phenotypic evidence of maturation. CD45 dim, CD34 positive cells comprise 0.4% of total cells. Lymphocytes comprise 4.1% of total cells. T-cells comprise 76% of lymphoid cells and show a CD4/CD8 ratio of 1.9. NK-cells comprise 3% of lymphoid cells. Mature B-cells comprise 20% of lymphoid cells and are polyclonal with a kappa: lambda ratio of 1.6. Plasma cells comprise 0.3% of total cells and show cytoplasmic kappa light chain restriction with a kappa/lambda ratio of 11.0. The plasma cells are CD45 (dim), CD38 (moderate), CD138 (moderate) and cytoplasmic kappa (moderate) positive. The plasma cells are CD19 (aberrant), CD20, CD56, and CD117 negative. . Bone marrow submitted for FISH analysis reveals BCR/ABL1 fusion or t(9;22) in 97.0% of analyzed nuclei. . (JPM:[facility]; 11/08/2019) . 02 Pathologist provided ICD-10: D72.820, D75.9, D64.9 . 02 CPT . 569814, 120126, 673306, 319336, 840624, 968763, [id number], [id number], [id number], [id number], [id number] Specimen Comment: A courtesy copy of this report has been sent to [phone], [phone] Specimen Comment: [phone], , Specimen Comment: Report sent to , , Dr.MELANY Specimen Comment: and Performed at: 01 [facility] [address], [place], [place] [id number] MD Barry Gan MD Phone: [phone] Performed at: 02 [facility] [address] [place], [place] [id number] MD Raffaele Cerda MD Phone: [phone]
[2019-11-12 14:23] LABS: HEMATOCRIT 28.7 % (36.0-47.0); HEMOGLOBIN 8.9 g/dL (12.0-15.5)
[2019-11-12 14:28] LABS: WHITE BLOOD COUNT 73.4 x10^3/uL (4.0-11.0)
[2019-11-12 14:30] LABS: CALCIUM 7.2 mg/dL (8.5-10.1); CREATININE 0.6 mg/dL (0.6-1.0); GFR 107.2; POTASSIUM 4.3 mmol/L (3.5-5.1)
[2019-11-12 14:36] LABS: ALBUMIN 2.3 g/dL (3.4-5.0); ALBUMIN/GLOBULIN RATIO 0.9 (1.0-1.7); TOTAL BILIRUBIN 0.9 mg/dL (0.2-1.0)
--- NOTE | 2019-11-12 15:10 | PDOC ---
BRIEF OPERATIVE NOTE Date: Nov 12, 2019 Pre-Op Diagnosis brain mass Post-Op Diagnosis same Procedure Performed stereotactic left frontoparietal craniotomy, debulking of left parietal mass Surgeon Amber Zinc Furnace Charger none Anesthesiologist Mercedes Anesthesia Type: General Blood Loss 150mL Specimens Obtained frozen and permanent, frozen = "diagnostic tissue" Findings mass lesion, edema of adjacent parenchyma, significant adherence to adjacent sinus Complications none apparent BINH WELCH MD Nov 12, 2019 15:10
[2019-11-12] MEDS ORDERED: 0.9 % SODIUM CHLORIDE 10 ML DISP.SYRIN. IV PRN (15:15)
[2019-11-12] MEDS ORDERED: hydrALAZINE 20 MG/ML VIAL. IVP PRN (15:15)
[2019-11-12] MEDS ORDERED: IV DEXTROSE 5% 250 ML BAG. IV PRN (15:15)
[2019-11-12] MEDS ORDERED: CALCIUM CARBONATE 500 MG TAB.CHEW PO PRN (15:15)
[2019-11-12] MEDS ORDERED: diphenhydrAMINE HCL 25 MG CAPSULE PO PRN (15:15)
[2019-11-12] MEDS ORDERED: MAG HYDROX/ALUMINUM HYD/SIMETH 30 ML ORAL.SUSP PO PRN (15:15)
[2019-11-12] MEDS ORDERED: DEXTROSE 50% 25 GM / 50ML DISP.SYRIN. IV PRN (15:15)
[2019-11-12] MEDS ORDERED: diphenhydrAMINE 50 MG/ML VIAL IV PRN (15:15)
[2019-11-12] MEDS ORDERED: LABETALOL 20 MG/4 ML DISP.SYRIN. IVP PRN (15:15)
[2019-11-12] MEDS ORDERED: INSULIN LISPRO 100 UNIT/ML 3ML VIAL for OP,RR ONLY. SQ PRN (16:00)
--- NOTE | 2019-11-12 16:35 | RAD ---
Examination: CT HEAD WO CONTRAST History: Right-sided weakness. Removal of brain tumor. Comparison/Correlation: 11/05/2019 CT head without contrast Findings: Axial images of the head were obtained without contrast. Skin edd are noted at the vertex to the left of the midline. Postoperative left vertex craniotomy findings are present with associated plates. Left lateral vertex hematoma collection which may represent epidural or subdural collection is evident measuring up to 2.7 cm longitudinal by 0.9 cm transverse by 4.3 cm anteroposterior. Parafalcine hemorrhage also noted at the posterior vertex level and this extends along the left tentorium. Small hematoma involving the left vertex deep white matter measuring up to 0.9 cm diameter is present within region of vasogenic edema which involves the frontoparietal vertex.. Smaller intraparenchymal hematoma also is present more superiorly within the left vertex. This is within regions left parasagittal gyrus. Mass previously seen on the preoperative exam is not currently delineated on this noncontrast CT exam. Mild atrophy is present. Very small left maxillary sinus fluid level is present. Globes and optic nerves are unremarkable. Impression: Left lateral vertex level hematoma which may represent subdural or epidural hematoma in this postoperative patient. Left vertex intraparenchymal hematomas also are seen. Parafalcine hemorrhage which extends along the left tentorium also noted. Postoperative findings are present with the left vertex level mass no longer being delineated. Left maxillary sinusitis. On 11/12/2019 at 1630, results were reported to Shania of the ICU. PQRS Compliance Statement: One or more of the following individualized dose reduction techniques were utilized for this examination: 1. Automated exposure control 2. Adjustment of the mA and/or kV according to patient size 3. Use of iterative reconstruction technique Electronically signed by: Sen Pratt MD (11/12/2019 4:33 PM) [facility]
[2019-11-12] MEDS ORDERED: INSULIN LISPRO 100 UNIT/ML 3ML VIAL for OP,RR ONLY. SQ ONE (16:45)
--- NOTE | 2019-11-12 19:49 | NUR ---
Post op patient to ICU after CT (negative) All am meds remain undocumented form the floor. See EMR documentation for this nurse from 1600 on . IV Insulin gtt not started in OR. Post BG 193 w ordered 2H BG (1830) 228. Med req for SSI sent to pharm. Will administer when to unit. Awakens w neuro checks. Less lethargic as sedation wears off. More Effient neuro checks when aware. Speech slow /sl slurred but understandable. 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 Follows command. tracks, PEERL. cont POC
[2019-11-12] MEDS: SENNOSIDES/DOCUSATE 8.6/50MG TABLET. PO SCH (21:00)
[2019-11-12] MEDS: PATCH REMOVAL. MC SCH (21:00)
[2019-11-12] MEDS: cycloSPORINE 0.05% OPHTH DROPERETTE. OU SCH (21:00)
[2019-11-12] MEDS: LIDOCAINE (700MG/PATCH) PATCH. TP SCH (21:00)
[2019-11-12] MEDS: INSULIN GLARGINE SYRINGE. SQ SCH (21:04)
[2019-11-12] MEDS: ATORVASTATIN CALCIUM 40 MG TABLET. PO SCH (21:06)
[2019-11-12] MEDS: METOPROLOL SUCC 24HR ER 100 MG TAB.ER.24H. PO SCH (21:07)
[2019-11-12] MEDS: levETIRAcetam 500 MG TABLET PO SCH (21:09)
[2019-11-12] MEDS: NYSTATIN TOPICAL POWDER 15GM BOTTLE. TP SCH (21:10)
[2019-11-12] MEDS: cefTRIAXone IV Push 1 GM VIAL. IVP SCH (21:11)
[2019-11-13] VITALS (24 sets, daily range): BP systolic 98–128; BP diastolic 56–82
[2019-11-13] MEDS: HYDROmorphone 2 MG/ML VIAL IV PRN ×5 (04:45→21:05)
[2019-11-13] MEDS: DEXAMETHASONE SOD PHOS 4 MG/ML VIAL IVP SCH ×3 (06:04→18:02)
[2019-11-13 06:28] LABS: BASO # 0.1 x10^3/uL (0.0-0.2); BASO % 0 % (0-3); EOS % 0 % (0-3); HEMOGLOBIN 8.6 g/dL (12.0-15.5); LYMPH # 1.7 x10^3/uL (1.0-4.8); LYMPH % 4 % (24-48); MEAN CORPUSCULAR HEMOGLOBIN 29 pg (25-35); MEAN CORPUSCULAR HGB CONC 32 g/dL (31-37); MEAN CORPUSCULAR VOLUME 92 fL (79-100); MONO # 0.9 x10^3/uL (0.0-1.1); MONO % 2 % (0-9); NEUT % 94 % (31-73); PLATELET COUNT 402 x10^3/uL (140-400); RED BLOOD COUNT 2.94 x10^6/uL (3.50-5.40); RED CELL DISTRIBUTION WIDTH 17.3 % (11.5-14.5)
[2019-11-13 06:43] LABS: ALBUMIN 2.3 g/dL (3.4-5.0); ALBUMIN/GLOBULIN RATIO 0.8 (1.0-1.7); CALCIUM 8.1 mg/dL (8.5-10.1); CREATININE 0.5 mg/dL (0.6-1.0); GFR 132.2; POTASSIUM 4.2 mmol/L (3.5-5.1); TOTAL PROTEIN 5.2 g/dL (6.4-8.2)
[2019-11-13 06:58] LABS: WHITE BLOOD COUNT 43.7 x10^3/uL (4.0-11.0)
[2019-11-13] MEDS: INSULIN LISPRO 300 UNITS/3 ML VIAL. SQ SCH ×6 (07:30→17:39)
[2019-11-13] MEDS: amLODIPine BESYLATE 5 MG TABLET PO SCH (09:00)
[2019-11-13] MEDS: SENNOSIDES/DOCUSATE 8.6/50MG TABLET. PO SCH ×2 (09:00→21:08)
[2019-11-13] MEDS: FLUTICASONE 50MCG/NASAL SPRAY 16GM BOTTLE. NS SCH (09:00)
--- NOTE | 2019-11-13 09:26 | NUR ---
SS following for discharge planning. Pt transferred to ICU s/p Craniotomy on 11/12/2019. Pt is currently requiring oxygen. SS will continue to follow for discharge planning.
--- NOTE | 2019-11-13 09:39 | PDOC ---
PROGRESS NOTES Subjective Subjective Right side weakness. In good spirits. Objective Objective Vital Signs Date Time Temp Pulse Resp B/P (MAP) Pulse Ox O2 Delivery O2 Flow Rate FiO2 11/13/19 08:47 22 98 Nasal Cannula 3.0 11/13/19 06:06 15 102/61 (75) 11/13/19 04:00 98.7 98.7 Intake and Output 11/13/19 07:03 Intake Total 5405 ml Output Total 4120 ml Balance 1285 ml Intake Oral 50 ml IV Total 5355 ml Output Urine Total 3970 ml Estimated Blood Loss 150 ml Physical Exam Physical Exam AAOx4, some slurring of speech, face symmetric, RUE 0/5, RLE wiggles toes slightly, sensation altered to LT RUE and RLE but able to detect Assessment Assessment Problems Medical Problems: (1) Abdominal hemorrhage Status: Acute (2) Generalized weakness Status: Acute (3) Lactic acidosis Status: Acute (4) Leukocytosis Status: Acute Plan Plan of Care -CT head essentially with expected post-op changes -will acquire MRI brain today - potentially could downgrade from ICU pending result from NS standpoint -PT/OT/ST Comment Review of Relevant I have reviewed the following items mustapha (where applicable) has been applied. Labs Laboratory Tests Test 11/11/19 11:45 11/11/19 16:38 11/11/19 20:37 11/12/19 04:55 Glucose (Fingerstick) 345 mg/dL (70-99) 350 mg/dL (70-99) 288 mg/dL (70-99) White Blood Count 42.9 x10^3/uL (4.0-11.0) Red Blood Count 3.36 x10^6/uL (3.50-5.40) Hemoglobin 9.9 g/dL (12.0-15.5) Hematocrit 30.8 % (36.0-47.0) Mean Corpuscular Volume 92 fL (79-100) Mean Corpuscular Hemoglobin 29 pg (25-35) Mean Corpuscular Hemoglobin Concent 32 g/dL (31-37) Red Cell Distribution Width 17.2 % (11.5-14.5) Platelet Count 461 x10^3/uL (140-400) Neutrophils (%) (Auto) 95 % (31-73) Lymphocytes (%) (Auto) 3 % (24-48) Monocytes (%) (Auto) 2 % (0-9) Eosinophils (%) (Auto) 0 % (0-3) Basophils (%) (Auto) 0 % (0-3) Neutrophils # (Auto) 40.8 x10^3/uL (1.8-7.7) Lymphocytes # (Auto) 1.2 x10^3/uL (1.0-4.8) Monocytes # (Auto) 0.8 x10^3/uL (0.0-1.1) Eosinophils # (Auto) 0.0 x10^3/uL (0.0-0.7) Basophils # (Auto) 0.1 x10^3/uL (0.0-0.2) Segmented Neutrophils % 76 % (35-66) Band Neutrophils % 9 % (0-9) Lymphocytes % 3 % (24-48) Monocytes % 1 % (0-10) Metamyelocytes % 6 % (0-0) Myelocytes % 5 % (0-0) Platelet Estimate Increased (ADEQUATE) Polychromasia Mod Anisocytosis Mod Prothrombin Time 13.4 SEC (11.7-14.0) Prothromb Time International Ratio 1.1 (0.8-1.1) Activated Partial Thromboplast Time 22 SEC (24-38) Sodium Level 137 mmol/L (136-145) Potassium Level 4.4 mmol/L (3.5-5.1) Chloride Level 100 mmol/L (98-107) Carbon Dioxide Level 28 mmol/L (21-32) Anion Gap 9 (6-14) Blood Urea Nitrogen 23 mg/dL (7-20) Creatinine 0.7 mg/dL (0.6-1.0) Estimated GFR (Cockcroft-Gault) 89.7 Glucose Level 384 mg/dL (70-99) Calcium Level 8.1 mg/dL (8.5-10.1) Test 11/12/19 07:43 11/12/19 11:14 11/12/19 11:45 11/12/19 12:16 Glucose (Fingerstick) 360 mg/dL (70-99) 308 mg/dL (70-99) 272 mg/dL (70-99) 252 mg/dL (70-99) Test 11/12/19 12:46 11/12/19 13:18 11/12/19 13:44 11/12/19 14:05 Glucose (Fingerstick) 234 mg/dL (70-99) 219 mg/dL (70-99) 207 mg/dL (70-99) White Blood Count 73.4 x10^3/uL (4.0-11.0) Hemoglobin 8.9 g/dL (12.0-15.5) Hematocrit 28.7 % (36.0-47.0) Platelet Count 620 x10^3/uL (140-400) Sodium Level 136 mmol/L (136-145) Potassium Level 4.3 mmol/L (3.5-5.1) Chloride Level 104 mmol/L (98-107) Carbon Dioxide Level 25 mmol/L (21-32) Anion Gap 7 (6-14) Blood Urea Nitrogen 22 mg/dL (7-20) Creatinine 0.6 mg/dL (0.6-1.0) Estimated GFR (Cockcroft-Gault) 107.2 BUN/Creatinine Ratio 37 (6-20) Glucose Level 214 mg/dL (70-99) Calcium Level 7.2 mg/dL (8.5-10.1) Total Bilirubin 0.9 mg/dL (0.2-1.0) Aspartate Amino Transf (AST/SGOT) 40 U/L (15-37) Alanine Aminotransferase (ALT/SGPT) 77 U/L (14-59) Alkaline Phosphatase 71 U/L (46-116) Total Protein 5.0 g/dL (6.4-8.2) Albumin 2.3 g/dL (3.4-5.0) Albumin/Globulin Ratio 0.9 (1.0-1.7) Test 11/12/19 15:10 11/12/19 18:39 11/12/19 21:02 11/12/19 23:56 Glucose (Fingerstick) 197 mg/dL (70-99) 228 mg/dL (70-99) 218 mg/dL (70-99) 176 mg/dL (70-99) Test 11/13/19 06:00 11/13/19 06:03 11/13/19 08:00 White Blood Count 43.7 x10^3/uL (4.0-11.0) Red Blood Count 2.94 x10^6/uL (3.50-5.40) Hemoglobin 8.6 g/dL (12.0-15.5) Hematocrit 27.0 % (36.0-47.0) Mean Corpuscular Volume 92 fL (79-100) Mean Corpuscular Hemoglobin 29 pg (25-35) Mean Corpuscular Hemoglobin Concent 32 g/dL (31-37) Red Cell Distribution Width 17.3 % (11.5-14.5) Platelet Count 402 x10^3/uL (140-400) Neutrophils (%) (Auto) 94 % (31-73) Lymphocytes (%) (Auto) 4 % (24-48) Monocytes (%) (Auto) 2 % (0-9) Eosinophils (%) (Auto) 0 % (0-3) Basophils (%) (Auto) 0 % (0-3) Neutrophils # (Auto) 41.0 x10^3/uL (1.8-7.7) Lymphocytes # (Auto) 1.7 x10^3/uL (1.0-4.8) Monocytes # (Auto) 0.9 x10^3/uL (0.0-1.1) Eosinophils # (Auto) 0.0 x10^3/uL (0.0-0.7) Basophils # (Auto) 0.1 x10^3/uL (0.0-0.2) Sodium Level 138 mmol/L (136-145) Potassium Level 4.2 mmol/L (3.5-5.1) Chloride Level 103 mmol/L (98-107) Carbon Dioxide Level 31 mmol/L (21-32) Anion Gap 4 (6-14) Blood Urea Nitrogen 20 mg/dL (7-20) Creatinine 0.5 mg/dL (0.6-1.0) Estimated GFR (Cockcroft-Gault) 132.2 BUN/Creatinine Ratio 40 (6-20) Glucose Level 153 mg/dL (70-99) Calcium Level 8.1 mg/dL (8.5-10.1) Total Bilirubin 1.0 mg/dL (0.2-1.0) Aspartate Amino Transf (AST/SGOT) 34 U/L (15-37) Alanine Aminotransferase (ALT/SGPT) 68 U/L (14-59) Alkaline Phosphatase 60 U/L (46-116) Total Protein 5.2 g/dL (6.4-8.2) Albumin 2.3 g/dL (3.4-5.0) Albumin/Globulin Ratio 0.8 (1.0-1.7) Glucose (Fingerstick) 145 mg/dL (70-99) 135 mg/dL (70-99) Laboratory Tests Test 11/12/19 11:14 11/12/19 11:45 11/12/19 12:16 11/12/19 12:46 Glucose (Fingerstick) 308 mg/dL (70-99) 272 mg/dL (70-99) 252 mg/dL (70-99) 234 mg/dL (70-99) Test 11/12/19 13:18 11/12/19 13:44 11/12/19 14:05 11/12/19 15:10 Glucose (Fingerstick) 219 mg/dL (70-99) 207 mg/dL (70-99) 197 mg/dL (70-99) White Blood Count 73.4 x10^3/uL (4.0-11.0) Hemoglobin 8.9 g/dL (12.0-15.5) Hematocrit 28.7 % (36.0-47.0) Platelet Count 620 x10^3/uL (140-400) Sodium Level 136 mmol/L (136-145) Potassium Level 4.3 mmol/L (3.5-5.1) Chloride Level 104 mmol/L (98-107) Carbon Dioxide Level 25 mmol/L (21-32) Anion Gap 7 (6-14) Blood Urea Nitrogen 22 mg/dL (7-20) Creatinine 0.6 mg/dL (0.6-1.0) Estimated GFR (Cockcroft-Gault) 107.2 BUN/Creatinine Ratio 37 (6-20) Glucose Level 214 mg/dL (70-99) Calcium Level 7.2 mg/dL (8.5-10.1) Total Bilirubin 0.9 mg/dL (0.2-1.0) Aspartate Amino Transf (AST/SGOT) 40 U/L (15-37) Alanine Aminotransferase (ALT/SGPT) 77 U/L (14-59) Alkaline Phosphatase 71 U/L (46-116) Total Protein 5.0 g/dL (6.4-8.2) Albumin 2.3 g/dL (3.4-5.0) Albumin/Globulin Ratio 0.9 (1.0-1.7) Test 11/12/19 18:39 11/12/19 21:02 11/12/19 23:56 11/13/19 06:00 Glucose (Fingerstick) 228 mg/dL (70-99) 218 mg/dL (70-99) 176 mg/dL (70-99) White Blood Count 43.7 x10^3/uL (4.0-11.0) Red Blood Count 2.94 x10^6/uL (3.50-5.40) Hemoglobin 8.6 g/dL (12.0-15.5) Hematocrit 27.0 % (36.0-47.0) Mean Corpuscular Volume 92 fL (79-100) Mean Corpuscular Hemoglobin 29 pg (25-35) Mean Corpuscular Hemoglobin Concent 32 g/dL (31-37) Red Cell Distribution Width 17.3 % (11.5-14.5) Platelet Count 402 x10^3/uL (140-400) Neutrophils (%) (Auto) 94 % (31-73) Lymphocytes (%) (Auto) 4 % (24-48) Monocytes (%) (Auto) 2 % (0-9) Eosinophils (%) (Auto) 0 % (0-3) Basophils (%) (Auto) 0 % (0-3) Neutrophils # (Auto) 41.0 x10^3/uL (1.8-7.7) Lymphocytes # (Auto) 1.7 x10^3/uL (1.0-4.8) Monocytes # (Auto) 0.9 x10^3/uL (0.0-1.1) Eosinophils # (Auto) 0.0 x10^3/uL (0.0-0.7) Basophils # (Auto) 0.1 x10^3/uL (0.0-0.2) Sodium Level 138 mmol/L (136-145) Potassium Level 4.2 mmol/L (3.5-5.1) Chloride Level 103 mmol/L (98-107) Carbon Dioxide Level 31 mmol/L (21-32) Anion Gap 4 (6-14) Blood Urea Nitrogen 20 mg/dL (7-20) Creatinine 0.5 mg/dL (0.6-1.0) Estimated GFR (Cockcroft-Gault) 132.2 BUN/Creatinine Ratio 40 (6-20) Glucose Level 153 mg/dL (70-99) Calcium Level 8.1 mg/dL (8.5-10.1) Total Bilirubin 1.0 mg/dL (0.2-1.0) Aspartate Amino Transf (AST/SGOT) 34 U/L (15-37) Alanine Aminotransferase (ALT/SGPT) 68 U/L (14-59) Alkaline Phosphatase 60 U/L (46-116) Total Protein 5.2 g/dL (6.4-8.2) Albumin 2.3 g/dL (3.4-5.0) Albumin/Globulin Ratio 0.8 (1.0-1.7) Test 11/13/19 06:03 11/13/19 08:00 Glucose (Fingerstick) 145 mg/dL (70-99) 135 mg/dL (70-99) Microbiology 11/01/19 Blood Culture - Final, Complete NO GROWTH AFTER 5 DAYS Medications Current Medications Sodium Chloride 500 ml @ 500 mls/hr 1X ONCE IV Last administered on 11/01/19at 13:00; Start 11/01/19 at 13:00; Stop 11/01/19 at 13:59; Status DC Ondansetron HCl (Zofran) 4 mg 1X ONCE IV Last administered on 11/01/19at 13:26; Start 11/01/19 at 13:00; Stop 11/01/19 at 13:13; Status DC Hydromorphone HCl (Dilaudid) 0.5 mg 1X STAT IVP Last administered on 11/01/19at 13:26; Start 11/01/19 at 12:59; Stop 11/01/19 at 13:13; Status DC Iohexol (Omnipaque 300 Mg/ml) 75 ml 1X ONCE IV Last administered on 11/01/19at 14:08; Start 11/01/19 at 13:45; Stop 11/01/19 at 13:46; Status DC Info (CONTRAST GIVEN -- Rx MONITORING) 1 each PRN DAILY PRN MC SEE COMMENTS; Start 11/01/19 at 14:00; Stop 11/03/19 at 13:59; Status DC Hydromorphone HCl (Dilaudid) 0.5 mg 1X STAT IVP Last administered on 11/01/19at 16:53; Start 11/01/19 at 16:21; Stop 11/01/19 at 16:23; Status DC Sodium Chloride 1,000 ml @ 1,000 mls/hr 1X ONCE IV Last administered on 11/01/19at 16:30; Start 11/01/19 at 16:30; Stop 11/01/19 at 17:29; Status DC Sodium Chloride 500 ml @ 500 mls/hr 1X ONCE IV Last administered on 11/01/19at 16:30; Start 11/01/19 at 16:30; Stop 11/01/19 at 17:29; Status DC Albuterol Sulfate (Ventolin Neb Soln) 2.5 mg PRN Q6HRS PRN INH SHORTNESS OF BREATH; Start 11/01/19 at 16:30; Status Cancel Alprazolam (Xanax) 0.25 mg PRN TID PRN PO anxiety; Start 11/01/19 at 16:30; Stop 11/01/19 at 17:11; Status DC Amlodipine Besylate (Norvasc) 5 mg DAILY PO Last administered on 11/11/19at 09:19; Start 11/02/19 at 09:00 Cyclosporine (Restasis) 1 drop BID OU Last administered on 11/12/19at 21:00; Start 11/01/19 at 21:00 Fluticasone Propionate (Flonase) 2 spray DAILY NS Last administered on 11/11/19at 08:19; Start 11/02/19 at 09:00 Lactobacillus Rhamnosus (Culturelle) 1 cap BID PO Last administered on 11/09/19at 08:28; Start 11/01/19 at 21:00; Stop 11/09/19 at 16:57; Status DC Lidocaine (Lidoderm) 1 patch DAILY TP ; Start 11/02/19 at 09:00; Stop 11/01/19 at 20:34; Status DC Metoprolol Succinate (Toprol Xl) 100 mg HS PO Last administered on 11/12/19at 21:07; Start 11/01/19 at 21:00 Nystatin (Nystop) 1 raza BID TP Last administered on 11/12/19at 21:10; Start 11/01/19 at 21:00 Pantoprazole Sodium (Protonix) 40 mg DAILYAC PO Last administered on 11/09/19at 08:28; Start 11/02/19 at 07:30; Stop 11/09/19 at 16:54; Status DC Senna/Docusate Sodium (Senna Plus) 1 tab BID PO Last administered on 11/11/19at 21:46; Start 11/01/19 at 21:00 Sucralfate (Carafate) 1 gm TIDAC PO Last administered on 11/11/19at 16:23; Start 11/01/19 at 17:30 Tramadol HCl (Ultram) 50 mg PRN Q8HRS PRN PO PAIN; Start 11/01/19 at 16:30; Stop 11/01/19 at 19:43; Status DC Insulin Glargine (Lantus Syringe) 30 unit QHS SQ Last administered on at 21:16; Start 11/01/19 at 21:00; Stop 11/07/19 at 15:56; Status DC Ondansetron HCl (Zofran Odt) 8 mg PRN Q8HRS PRN PO NAUSEA/VOMITING Last administered on 11/07/19at 13:05; Start 11/01/19 at 17:15 Polyethylene Glycol (miraLAX PACKET) 17 gm PRN DAILY PRN PO CONSTIPATION, 1ST CHOICE Last administered on 11/11/19at 08:18; Start 11/01/19 at 17:11 Atorvastatin Calcium (Lipitor) 80 mg QHS PO Last administered on 11/12/19at 21:06; Start 11/01/19 at 21:00 Insulin Human Lispro (HumaLOG) 0-9 UNITS TIDAC SQ Last administered on 11/07/19at 12:20; Start 11/01/19 at 16:30; Stop 11/07/19 at 15:56; Status DC Dextrose (Dextrose 50%-Water Syringe) 12.5 gm PRN Q15MIN PRN IV SEE COMMENTS; Start 11/01/19 at 16:30; Stop 11/12/19 at 15:36; Status DC Ondansetron HCl (Zofran) 4 mg PRN Q8HRS PRN IV NAUSEA/VOMITING; Start 11/01/19 at 16:30; Stop 11/02/19 at 16:29; Status DC Alprazolam (Xanax) 0.25 mg PRN TID PRN PO anxiety Last administered on 11/12/19 04:37; Start 11/01/19 at 17:11 Miscellaneous (Lidoderm Patch Removal) 1 ea QHS MC ; Start 11/01/19 at 21:00; Stop 11/01/19 at 20:34; Status DC Ceftriaxone Sodium (Rocephin) 1 gm QHS IVP Last administered on 11/12/19at 21:11; Start 11/01/19 at 18:45 Tramadol HCl (Ultram) 50 mg PRN Q8HRS PRN PO MILD PAIN 1-3 Last administered on 11/05/19at 22:04; Start 11/01/19 at 19:45 Hydromorphone HCl (Dilaudid) 1 mg PRN Q4HRS PRN IV SEVERE PAIN Last administered on 11/13/19 08:47; Start 11/01/19 at 20:15 Lidocaine (Lidoderm) 1 patch QHS TP Last administered on 11/04/19at 21:55; Start 11/01/19 at 21:00 Miscellaneous (Lidoderm Patch Removal) 1 ea DAILY MC Last administered on 11/07/19at 09:00; Start 11/02/19 at 09:00 Albumin Human 500 ml @ 125 mls/hr 1X ONCE IV ; Start 11/02/19 at 02:00; Stop 11/02/19 at 05:59; Status Cancel Acetaminophen (Tylenol) 650 mg 1X PRN PRN PO PRE-TRANSFUSION; Start 11/02/19 at 06:45; Stop 11/03/19 at 14:16; Status DC Diphenhydramine HCl (Benadryl Oral Elixir) 12.5 mg 1X PRN PRN PO PRE- TRANSFUSION; Start 11/02/19 at 06:45; Stop 11/03/19 at 14:16; Status DC Diphenhydramine HCl (Benadryl) 25 mg PRN 1X PRN PO PRE-TRANSFUSION; Start 11/02/19 at 06:45; Stop 11/03/19 at 14:16; Status DC Lactulose (LACTULOSE 300ML for RECTAL) 200 gm Q6HRS MT Last administered on 11/02/19at 18:00; Start 11/02/19 at 18:00; Stop 11/04/19 at 14:44; Status DC Sodium Chloride 1,000 ml @ 100 mls/hr Q10H IV Last administered on 11/12/19at 02:14; Start 11/02/19 at 12:00 Lactulose (Lactulose) 20 gm PRN DAILY PRN PO CONSTIPATION, 2ND CHOICE; Start 11/04/19 at 14:45 Oxycodone HCl (Roxicodone) 5 mg PRN Q6HRS PRN PO MODERATE TO SEVERE PAIN Last administered on 11/12/19at 02:14; Start 11/04/19 at 14:45 Lidocaine HCl (Buffered Lidocaine 1%) 3 ml STK-MED ONCE .ROUTE ; Start 11/05/19 at 08:13; Stop 11/05/19 at 08:13; Status DC Lidocaine HCl (Buffered Lidocaine 1%) 3 ml STK-MED ONCE .ROUTE ; Start 11/05/19 at 08:14; Stop 11/05/19 at 08:14; Status DC Midazolam HCl (Versed) 2 mg STK-MED ONCE .ROUTE ; Start 11/05/19 at 08:40; Stop 11/05/19 at 08:40; Status DC Fentanyl Citrate (Fentanyl 2ml Vial) 100 mcg STK-MED ONCE .ROUTE ; Start 11/05/19 at 08:40; Stop 11/05/19 at 08:41; Status DC Lidocaine HCl (Buffered Lidocaine 1%) 3 ml 1X ONCE IJ Last administered on 11/05/19at 08:45; Start 11/05/19 at 08:45; Stop 11/05/19 at 08:50; Status DC Midazolam HCl (Versed) 2 mg 1X ONCE IV Last administered on 11/05/19at 08:45; Start 11/05/19 at 08:45; Stop 11/05/19 at 08:50; Status DC Fentanyl Citrate (Fentanyl 2ml Vial) 100 mcg 1X ONCE IV Last administered on 11/05/19at 08:45; Start 11/05/19 at 08:45; Stop 11/05/19 at 08:50; Status DC Dexamethasone Sodium Phosphate (Decadron) 4 mg Q6HRS IVP Last administered on 11/13/19at 06:04; Start 11/06/19 at 09:00 Insulin Glargine (Lantus Syringe) 40 unit QHS SQ Last administered on 11/12/19at 21:04; Start 11/07/19 at 21:00 Insulin Human Lispro (HumaLOG) 10 units TIDAC SQ Last administered on 11/11/19at 17:14; Start 11/07/19 at 16:30 Insulin Human Lispro (HumaLOG) 0-9 UNITS TIDWMEALS SQ Last administered on 11/11/19at 17:13; Start 11/07/19 at 17:00; Stop 11/12/19 at 15:37; Status DC Insulin Human Lispro (HumaLOG) 19 units 1X ONCE SQ Last administered on 11/09/19at 12:41; Start 11/09/19 at 12:15; Stop 11/09/19 at 12:16; Status DC Insulin Human Lispro (HumaLOG) 5 units 1X ONCE SQ Last administered on 11/09/19at 13:52; Start 11/09/19 at 13:30; Stop 11/09/19 at 13:31; Status DC Non-Formulary Medication 1 ea DAILY PO ; Start 11/09/19 at 16:30; Status Cancel Ondansetron HCl (Zofran) 4 mg PRN Q6HRS PRN IV NAUSEA/VOMITING; Start 11/12/19 at 07:00; Stop 11/12/19 at 19:56; Status DC Fentanyl Citrate (Fentanyl 2ml Vial) 25 mcg PRN Q5MIN PRN IV MILD PAIN 1-3; Start 11/12/19 at 07:00; Stop 11/12/19 at 19:56; Status DC Fentanyl Citrate (Fentanyl 2ml Vial) 50 mcg PRN Q5MIN PRN IV MODERATE TO SEVERE PAIN; Start 11/12/19 at 07:00; Stop 11/12/19 at 19:56; Status DC Morphine Sulfate (Morphine Sulfate) 1 mg PRN Q10MIN PRN IV SEVERE PAIN 7-10; Start 11/12/19 at 07:00; Stop 11/09/19 at 17:30; Status DC Ringer's Solution 1,000 ml @ 30 mls/hr Q24H IV Last administered on 11/12/19at 10:00; Start 11/12/19 at 07:00; Stop 11/12/19 at 18:59; Status DC Lidocaine HCl (Xylocaine-Mpf 1% 2ml Vial) 2 ml PRN 1X PRN ID PRIOR TO IV START; Start 11/12/19 at 07:00; Stop 11/12/19 at 19:56; Status DC Hydromorphone HCl (Dilaudid) 0.5 mg PRN Q10MIN PRN IV SEV PAIN, Second choice; Start 11/12/19 at 07:00; Stop 11/12/19 at 19:56; Status DC Prochlorperazine Edisylate (Compazine) 5 mg PACU PRN PRN IV NAUSEA, MRX1; S tart 11/12/19 at 07:00; Stop 11/12/19 at 19:56; Status DC Pantoprazole Sodium (Protonix) 40 mg DAILYAC PO Last administered on 11/11/19at 06:29; Start 11/09/19 at 18:30 Levetiracetam (Keppra) 500 mg BID PO Last administered on 11/12/19at 21:09; Start 11/09/19 at 21:00 Non-Formulary Medication 1 ea DAILY PO ; Start 11/12/19 at 09:00 Insulin Human Lispro (HumaLOG) 8 units 1X ONCE SQ Last administered on 11/10/19at 12:32; Start 11/10/19 at 12:15; Stop 11/10/19 at 12:16; Status DC Propofol 20 ml @ As Directed STK-MED ONCE IV ; Start 11/12/19 at 07:48; Stop 11/12/19 at 07:48; Status DC Dexamethasone Sodium Phosphate (Decadron) 20 mg STK-MED ONCE .ROUTE ; Start 11/12/19 at 07:48; Stop 11/12/19 at 07:48; Status DC Lidocaine HCl (Lidocaine Pf 2% Vial) 5 ml STK-MED ONCE .ROUTE ; Start 11/12/19 at 07:48; Stop 11/12/19 at 07:48; Status DC Ondansetron HCl (Zofran) 4 mg STK-MED ONCE .ROUTE ; Start 11/12/19 at 07:48; Stop 11/12/19 at 07:48; Status DC Phenylephrine HCl (Tony-Synephrine Inj) 10 mg STK-MED ONCE .ROUTE ; Start 11/12/19 at 07:48; Stop 11/12/19 at 07:48; Status DC Propofol 50 ml @ As Directed STK-MED ONCE IV ; Start 11/12/19 at 07:48; Stop 11/12/19 at 07:48; Status DC Rocuronium [place] (Zemuron) 50 mg STK-MED ONCE .ROUTE ; Start 11/12/19 at 07:48; Stop 11/12/19 at 07:48; Status DC Remifentanil HCl (Ultiva) 2 mg STK-MED ONCE IV ; Start 11/12/19 at 07:48; Stop 11/12/19 at 07:49; Status DC Sodium Chloride (SODIUM CHLORIDE 20ml) 20 ml STK-MED ONCE IJ ; Start 11/12/19 at 07:49; Stop 11/12/19 at 07:49; Status DC Multi-Ingred Cream/Lotion/Oil/ Oint (Artificial Tears Eye Ointment) 7 raza STK- MED ONCE .ROUTE ; Start 11/12/19 at 07:49; Stop 11/12/19 at 07:49; Status DC Bacitracin 32705 unit/Sodium Chloride 1,000 ml @ 1,000 mls/hr 1X ONCE IRR Last administered on 11/12/19 11:26; Start 11/12/19 at 07:57; Stop 11/12/19 at 08:56; Status DC Sodium Chloride (SODIUM CHLORIDE 20ml) 20 ml STK-MED ONCE IJ ; Start 11/12/19 at 07:57; Stop 11/12/19 at 07:57; Status DC Gelatin (Gelfoam Size 100) 1 each STK-MED ONCE .ROUTE Last administered on 11/12/19at 11:26; Start 11/12/19 at 07:59; Stop 11/12/19 at 07:59; Status DC Cellulose (Surgicel Hemostat 4x8) 1 each STK-MED ONCE .ROUTE Last administered on 11/12/19at 12:01; Start 11/12/19 at 07:59; Stop 11/12/19 at 08:00; Status DC Lidocaine/ Epinephrine (LIDOCAINE 1%-EPI 1:100,000 Multi-Dose) 20 ml STK-MED ONCE .ROUTE Last administered on 11/12/19 11:26; Start 11/12/19 at 07:59; Stop 11/12/19 at 08:00; Status DC Thrombin 20,000 unit STK-MED ONCE TP Last administered on 11/12/19at 11:26; Start 11/12/19 at 08:00; Stop 11/12/19 at 08:00; Status DC Bacitracin (Bacitracin Zinc Oint Pkt) 1 pkt STK-MED ONCE TP ; Start 11/12/19 at 08:00; Stop 11/12/19 at 08:00; Status DC Propofol 100 ml @ As Directed STK-MED ONCE IV ; Start 11/12/19 at 08:02; Stop 11/12/19 at 08:02; Status DC Insulin Human Lispro (HumaLOG) 11 units 1X ONCE SQ Last administered on 11/12/19at 08:15; Start 11/12/19 at 08:15; Stop 11/12/19 at 08:16; Status DC Gadoterate Meglumine (Dotarem) 24.8 ml 1X ONCE IVP Last administered on 11/12/19at 08:15; Start 11/12/19 at 08:15; Stop 11/12/19 at 08:16; Status DC Insulin Human Regular 100 unit/ Sodium Chloride 101 ml @ 12.484 mls/ hr ONCE ONCE IV ; Start 11/12/19 at 08:15; Stop 11/12/19 at 16:20; Status DC Desflurane (Suprane) 90 ml STK-MED ONCE IH ; Start 11/12/19 at 08:11; Stop 11/12/19 at 08:11; Status DC Fentanyl Citrate (Fentanyl 2ml Vial) 100 mcg STK-MED ONCE .ROUTE ; Start 11/12/19 at 08:20; Stop 11/12/19 at 08:20; Status DC Midazolam HCl (Versed) 2 mg STK-MED ONCE .ROUTE ; Start 11/12/19 at 08:20; Stop 11/12/19 at 08:20; Status DC Rocuronium [place] (Zemuron) 50 mg STK-MED ONCE .ROUTE ; Start 11/12/19 at 09:11; Stop 11/12/19 at 09:12; Status DC Mannitol (Mannitol) 12.5 g STK-MED ONCE .ROUTE ; Start 11/12/19 at 09:22; Stop 11/12/19 at 09:23; Status DC Propofol 100 ml @ As Directed STK-MED ONCE IV ; Start 11/12/19 at 09:22; Stop 11/12/19 at 09:23; Status DC Lidocaine HCl (Xylocaine-Mpf 1% 2ml Vial) 2 ml STK-MED ONCE .ROUTE ; Start 11/12/19 at 09:24; Stop 11/12/19 at 09:24; Status DC Cefazolin Sodium 3 gm/Dextrose 100 ml @ 200 mls/hr 1X PREOP ONCE IV Last administered on 11/12/19at 10:53; Start 11/12/19 at 10:30; Stop 11/12/19 at 10:59; Status DC Gelatin (Gelfoam Size 12-7mm) 1 each STK-MED ONCE .ROUTE Last administered on 11/12/19 12:03; Start 11/12/19 at 11:59; Stop 11/12/19 at 12:01; Status DC Thrombin 20,000 unit STK-MED ONCE TP Last administered on 11/12/19 12:04; Start 11/12/19 at 12:00; Stop 11/12/19 at 12:01; Status DC Gelatin (Gelfoam Size 100) 1 each STK-MED ONCE .ROUTE Last administered on 11/12/19 12:25; Start 11/12/19 at 12:26; Stop 11/12/19 at 12:26; Status DC Gelatin (Gelfoam Size 12-7mm) 1 each STK-MED ONCE .ROUTE Last administered on 11/12/19 13:35; Start 11/12/19 at 13:32; Stop 11/12/19 at 13:33; Status DC Thrombin 20,000 unit STK-MED ONCE TP Last administered on 11/12/19at 13:35; Start 11/12/19 at 13:32; Stop 11/12/19 at 13:33; Status DC Gelatin (Gelfoam Size 12-7mm) 1 each STK-MED ONCE .ROUTE Last administered on 11/12/19at 13:55; Start 11/12/19 at 13:55; Stop 11/12/19 at 13:55; Status DC Gelatin (Gelf[place]am Size 12-7mm) 1 each STK-MED ONCE .ROUTE Last administered on 11/12/19at 13:59; Start 11/12/19 at 13:59; Stop 11/12/19 at 13:59; Status DC Labetalol HCl (Normodyne Iv Push) 5 mg PRN Q15MIN PRN IVP HYPERTENSION; Start 11/12/19 at 15:15 Nicardipine HCl 50 mg/Sodium Chloride 250 ml @ 25 mls/hr TITRATE PRN IV SBP 90-140; Start 11/12/19 at 15:15 Hydralazine HCl (Apresoline Inj) 5 mg PRN Q6HRS PRN IVP TO KEEP SBP<140mmHg; Start 11/12/19 at 15:15 Al Hydroxide/Mg Hydroxide (Mylanta Plus Xs) 30 ml PRN Q3HRS PRN PO HEARTBURN / GAS; Start 11/12/19 at 15:15 Calcium Carbonate/ Glycine (Tums) 500 mg PRN Q3HRS PRN PO INDIGESTION; Start 11/12/19 at 15:15 Diphenhydramine HCl (Benadryl) 25 mg PRN Q6HRS PRN PO ITCHING; Start 11/12/19 at 15:15 Diphenhydramine HCl (Benadryl) 25 mg PRN Q6HRS PRN IV ITCHING; Start 11/12/19 at 15:15 Sodium Chloride (Normal Saline Flush) 3 ml QSHIFT PRN IV AFTER MEDS AND BLOOD DRAWS; Start 11/12/19 at 15:15 Insulin Human Lispro (HumaLOG) 0-5 UNITS TIDWMEALS SQ Last administered on 11/12/19at 20:08; Start 11/12/19 at 17:00 Dextrose (Dextrose 50%-Water Syringe) 12.5 gm PRN Q15MIN PRN IV SEE COMMENTS; Start 11/12/19 at 15:15 Dextrose (Iv Dextrose 5%) 250 ml PRN Q15MIN PRN IV SEE COMMENTS; Start 11/12/19 at 15:15 Hydromorphone HCl (Dilaudid) 0.2 mg PRN Q1HR PRN IV MODERATE PAIN; Start 11/12/19 at 15:15 Insulin Human Lispro (HumaLOG VIAL for OP,RR ONLY) 0-10 units PRN Q1HR PRN SQ PER PROTOCOL Last administered on 11/12/19at 15:50; Start 11/12/19 at 16:00; Stop 11/12/19 at 19:54; Status DC Insulin Human Lispro (HumaLOG VIAL for OP,RR ONLY) 4 unit 1X ONCE SQ ; Start 11/12/19 at 16:45; Stop 11/12/19 at 16:46; Status DC Active Scripts Active Enoxaparin Sodium 120 Mg/0.8 Ml Disp.syrin 120 Mg SQ Q12HR 28 Days Dexamethasone 4 Mg Tablet 4 Mg PO BID 14 Days Culturelle (Lactobacillus Rhamnosus Gg) 1 Each Cap.sprink 1 Cap PO BID 30 Days Amlodipine Besylate 5 Mg Tablet 5 Mg PO DAILY 30 Days Cefdinir 300 Mg Capsule 300 Mg PO BID 10 Days Reported Cymbalta (Duloxetine Hcl) 60 Mg Capsule.dr 1 Cap PO BID Lyrica (Pregabalin) 150 Mg Capsule 1 Cap PO BID Novolog (Insulin Aspart) 100 Unit/1 Ml Cartridge 10-45 Unit SQ QIDACHS Levemir (Insulin Detemir) 100 Unit/1 Ml Vial 30 Unit SQ HS Linzess (Linaclotide) 145 Mcg Capsule 145 Mcg PO PRN PRN Crestor (Rosuvastatin Calcium) 40 Mg Tablet 0.5 Tab PO DAILY Polyethylene Glycol 3350 2,500 Gm Powder 17 Gm PO PRN PRN Xanax (Alprazolam) 1 Mg Tablet 1 Tab PO TID Restasis (Cyclosporine) 1 Each Droperette 1 Drop EACHEYE BID Proair Hfa Inhaler (Albuterol Sulfate) 8.5 Gm Hfa.aer.ad 1 Puff INH PRN Q6HRS PRN Tramadol Hcl 50 Mg Tablet 1 Tab PO PRN Q8HRS PRN Ondansetron Hcl 4 Mg Tablet 2 Tab PO PRN Q8HRS PRN Nystatin 15 Gm Powder 1 Raza TP BID Lidocaine PATCH (Lidocaine) 1 Each Adh..patch 1 Each TP DAILY Fluticasone Propionate Nasal Lisle (Fluticasone Propionate) 16 Gm Lisle.susp 2 Lisle NS DAILY Percocet 5-325 Mg Tablet (Oxycodone/Acetaminophen) 1 Each Tablet 1-2 Tab PO Q4-6HRS PRN LAST DOSE AT NEXT DOSE Senna-Docusate Sodium Tablet (Sennosides/Docusate Sodium) 1 Each Tablet 1 Each PO BID LAST DOSE THIS AM NEXT DOSE EMY Robaxin-750 (Methocarbamol) 750 Mg Tablet 1 Tab PO TID LAST DOSE AT 1400 (2PM) MAY HAVE THE NEXT DOSE AT 10 PM Protonix (Pantoprazole Sodium) 40 Mg Tablet.dr 40 Mg PO DAILY LST DOSE THIS AM NEXT DOSE TOMORROW AM Carafate (Sucralfate) 1 Gm Tablet 1 Tab PO TID Meds not given this hospital admission. May resume home medications as approved by Physician. MAY TAKE WHEN AVAILABLE Xarelto (Rivaroxaban) 15 Mg Tablet 15 Mg PO DAILY Meds not given this hospital admission. May resume home medications as approved by Physician. MAY RESUME WHEN AVAILABLE Metoprolol Succinate ( Xl ) (Metoprolol Succinate) 100 Mg Tab.er.24h 100 Mg PO HS LAST DOSE THIS AM NEXT DOSE TOMORROW AM Vitals/I & O Vital Sign - Last 24 Hours 11/12/19 11/12/19 11/12/19 11/12/19 09:50 15:00 15:00 15:15 Temp 97.9 98.4 98.4 97.9 98.4 98.4 Pulse 68 88 80 Resp 20 17 17 B/P (MAP) 111/70 98/54 102/96 100/67 100/67 Pulse Ox 98 100 100 O2 Delivery Room Air Simple Mask Mask Simple Mask O2 Flow Rate 10 10 10 11/12/19 11/12/19 11/12/19 11/12/19 15:30 15:50 16:15 16:30 Temp 98.4 98.4 98.0 98.4 98.4 98.0 Pulse 80 84 62 62 Resp 15 15 14 16 B/P (MAP) 92/64 84/66 108/68 (81) 124/70 (88) 110/61 Pulse Ox 100 100 95 100 O2 Delivery Simple Mask Simple Mask Simple Mask Simple Mask O2 Flow Rate 10 10 4.0 4.0 11/12/19 11/12/19 11/12/19 11/12/19 16:44 17:00 17:30 18:00 Temp 98.0 98.0 Pulse 66 66 66 74 Resp 12 18 19 B/P (MAP) 128/72 (90) 134/74 (94) 134/74 (94) 138/74 (95) Pulse Ox 100 100 100 100 O2 Delivery Simple Mask Simple Mask Simple Mask Simple Mask O2 Flow Rate 4.0 4.0 4.0 4.0 11/12/19 11/12/19 11/12/19 11/12/19 18:42 19:00 20:00 20:00 Temp 98.5 98.5 Pulse 78 81 Resp 18 16 16 B/P (MAP) 121/70 (87) 111/76 (88) Pulse Ox 100 100 100 O2 Delivery Simple Mask Simple Mask Mask Simple Mask O2 Flow Rate 4.0 4.0 4.0 4.0 11/12/19 11/12/19 11/12/19 11/12/19 21:00 21:07 22:00 23:00 Pulse 82 81 85 89 Resp 16 17 18 B/P (MAP) 103/84 (90) 111/76 115/73 (87) 104/68 (80) Pulse Ox 100 98 98 O2 Delivery Nasal Cannula Nasal Cannula Nasal Cannula O2 Flow Rate 3.0 3.0 3.0 11/12/19 11/12/19 11/12/19 11/13/19 23:58 23:59 23:59 01:00 Temp 98.5 98.5 Pulse 97 63 Resp 15 17 15 B/P (MAP) 103/69 (80) 98/62 (74) Pulse Ox 98 98 99 O2 Delivery Mask Nasal Cannula Nasal Cannula O2 Flow Rate 3.0 4.0 3.0 3.0 11/13/19 11/13/19 11/13/19 11/13/19 02:00 02:36 03:00 04:00 Temp 98.7 98.7 Pulse 63 18 86 Resp 20 20 20 B/P (MAP) 106/68 (81) 104/64 (77) 103/66 (78) Pulse Ox 99 99 99 98 O2 Delivery Nasal Cannula Nasal Cannula Nasal Cannula O2 Flow Rate 3.0 3.0 3.0 3.0 11/13/19 11/13/19 11/13/19 11/13/19 04:00 04:45 05:11 06:06 Pulse 17 15 Resp 12 18 18 B/P (MAP) 103/62 (76) 102/61 (75) Pulse Ox 98 99 99 O2 Delivery Mask Nasal Cannula Nasal Cannula O2 Flow Rate 4.0 3.0 3.0 3.0 11/13/19 11/13/19 07:30 08:47 Resp 22 Pulse Ox 98 O2 Delivery Nasal Cannula Nasal Cannula O2 Flow Rate 3.0 3.0 Intake and Output 11/12/19 11/12/19 11/13/19 15:03 23:03 07:03 Intake Total 4300 ml 50 ml 1055 ml Output Total 1470 ml 1750 ml 900 ml Balance 2830 ml -1700 ml 155 ml Nutrition Consultation Dietary Evaluation: Recommendations by RD: Dietary education by RD, Increase Calorie Intake, Protein supplementation Comments: REC continue ADA/cardiac diet ,glucerna Expected Outcomes/Goals: PO intake to meet >75% est needs- met at times, goal ongoing Interpretation of weight loss: >5% in 1 month Malnutrition Findings: Food and Nutrition Intake (Sev: <50% est energy req 5days Weight Status: Morbidly Obese BINH WELCH MD Nov 13, 2019 09:39
--- NOTE | 2019-11-13 09:55 | PDOC ---
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 The mass abuts the superior sagittal sinus without definite involvement on this examination. Associated vasogenic edema with minimal mass effect and midline shift to the right by approximately 8 mm, stable. There is persistent mass effect on the atria of the left lateral ventricle without hydrocephalus. head ct 11/12 post op:Left lateral vertex level hematoma which may represent subdural or epidural hematoma in this postoperative patient. Left vertex intraparenchymal hematomas also are seen. Parafalcine hemorrhage which extends along the left tentorium also noted. Postoperative findings are present with the left vertex level mass no longer being delineated. Left maxillary sinusitis. 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 await path post op, per NSG, apprec Dr Clark's help h/o clotting: Restart anticoagulation when safe, likely ppx lovenox on thurs if no concern for bleeding progression post op, pending f/u MRI likely Thank you kindly and please do not hesitate to call with questions. OBJECTIVE Vital Signs Vital Signs Date Time Temp Pulse Resp B/P (MAP) Pulse Ox O2 Delivery O2 Flow Rate FiO2 11/13/19 08:47 22 98 Nasal Cannula 3.0 11/13/19 07:30 Nasal Cannula 3.0 11/13/19 06:06 15 18 102/61 (75) 99 Nasal Cannula 3.0 11/13/19 05:11 17 18 103/62 (76) 99 Nasal Cannula 3.0 11/13/19 04:45 12 98 3.0 11/13/19 04:00 Mask 4.0 11/13/19 04:00 98.7 86 20 103/66 (78) 98 Nasal Cannula 3.0 98.7 11/13/19 03:00 18 20 104/64 (77) 99 Nasal Cannula 3.0 11/13/19 02:36 99 3.0 11/13/19 02:00 63 20 106/68 (81) 99 Nasal Cannula 3.0 11/13/19 01:00 63 15 98/62 (74) 99 Nasal Cannula 3.0 11/12/19 23:59 98.5 97 17 103/69 (80) 98 Nasal Cannula 3.0 98.5 11/12/19 23:59 Mask 4.0 11/12/19 23:58 15 98 3.0 11/12/19 23:00 89 18 104/68 (80) 98 Nasal Cannula 3.0 11/12/19 22:00 85 17 115/73 (87) 98 Nasal Cannula 3.0 11/12/19 21:07 81 111/76 11/12/19 21:00 82 16 103/84 (90) 100 Nasal Cannula 3.0 11/12/19 20:00 98.5 81 16 111/76 (88) 100 Simple Mask 4.0 98.5 11/12/19 20:00 Mask 4.0 11/12/19 19:00 78 16 121/70 (87) 100 Simple Mask 4.0 11/12/19 18:42 18 100 Simple Mask 4.0 11/12/19 18:00 74 19 138/74 (95) 100 Simple Mask 4.0 11/12/19 17:30 98.0 66 134/74 (94) 100 Simple Mask 4.0 98.0 11/12/19 17:00 66 18 134/74 (94) 100 Simple Mask 4.0 11/12/19 16:44 66 12 128/72 (90) 100 Simple Mask 4.0 11/12/19 16:30 62 16 124/70 (88) 100 Simple Mask 4.0 11/12/19 16:15 98.0 62 14 108/68 (81) 95 Simple Mask 4.0 98.0 11/12/19 15:50 98.4 84 15 84/66 100 Simple Mask 10 98.4 11/12/19 15:30 98.4 80 15 92/64 100 Simple Mask 10 98.4 110/61 11/12/19 15:15 98.4 80 17 102/96 100 Simple Mask 10 98.4 100/67 11/12/19 15:00 Mask 10 11/12/19 15:00 98.4 88 17 98/54 100 Simple Mask 10 98.4 100/67 11/12/19 09:50 97.9 68 20 111/70 98 Room Air 97.9 I & O Intake and Output 11/13/19 07:00 Intake Total 5405 ml Output Total 4120 ml Balance 1285 ml Intake Oral 50 ml IV Total 5355 ml Output Urine Total 3970 ml Estimated Blood Loss 150 ml COMMENT Lab Laboratory Tests Test 11/12/19 11:14 11/12/19 11:45 11/12/19 12:16 11/12/19 12:46 Glucose (Fingerstick) 308 mg/dL (70-99) 272 mg/dL (70-99) 252 mg/dL (70-99) 234 mg/dL (70-99) Test 11/12/19 13:18 11/12/19 13:44 11/12/19 14:05 11/12/19 15:10 Glucose (Fingerstick) 219 mg/dL (70-99) 207 mg/dL (70-99) 197 mg/dL (70-99) White Blood Count 73.4 x10^3/uL (4.0-11.0) Hemoglobin 8.9 g/dL (12.0-15.5) Hematocrit 28.7 % (36.0-47.0) Platelet Count 620 x10^3/uL (140-400) Sodium Level 136 mmol/L (136-145) Potassium Level 4.3 mmol/L (3.5-5.1) Chloride Level 104 mmol/L (98-107) Carbon Dioxide Level 25 mmol/L (21-32) Anion Gap 7 (6-14) Blood Urea Nitrogen 22 mg/dL (7-20) Creatinine 0.6 mg/dL (0.6-1.0) Estimated GFR (Cockcroft-Gault) 107.2 BUN/Creatinine Ratio 37 (6-20) Glucose Level 214 mg/dL (70-99) Calcium Level 7.2 mg/dL (8.5-10.1) Total Bilirubin 0.9 mg/dL (0.2-1.0) Aspartate Amino Transf (AST/SGOT) 40 U/L (15-37) Alanine Aminotransferase (ALT/SGPT) 77 U/L (14-59) Alkaline Phosphatase 71 U/L (46-116) Total Protein 5.0 g/dL (6.4-8.2) Albumin 2.3 g/dL (3.4-5.0) Albumin/Globulin Ratio 0.9 (1.0-1.7) Test 11/12/19 18:39 11/12/19 21:02 11/12/19 23:56 11/13/19 06:00 Glucose (Fingerstick) 228 mg/dL (70-99) 218 mg/dL (70-99) 176 mg/dL (70-99) White Blood Count 43.7 x10^3/uL (4.0-11.0) Red Blood Count 2.94 x10^6/uL (3.50-5.40) Hemoglobin 8.6 g/dL (12.0-15.5) Hematocrit 27.0 % (36.0-47.0) Mean Corpuscular Volume 92 fL (79-100) Mean Corpuscular Hemoglobin 29 pg (25-35) Mean Corpuscular Hemoglobin Concent 32 g/dL (31-37) Red Cell Distribution Width 17.3 % (11.5-14.5) Platelet Count 402 x10^3/uL (140-400) Neutrophils (%) (Auto) 94 % (31-73) Lymphocytes (%) (Auto) 4 % (24-48) Monocytes (%) (Auto) 2 % (0-9) Eosinophils (%) (Auto) 0 % (0-3) Basophils (%) (Auto) 0 % (0-3) Neutrophils # (Auto) 41.0 x10^3/uL (1.8-7.7) Lymphocytes # (Auto) 1.7 x10^3/uL (1.0-4.8) Monocytes # (Auto) 0.9 x10^3/uL (0.0-1.1) Eosinophils # (Auto) 0.0 x10^3/uL (0.0-0.7) Basophils # (Auto) 0.1 x10^3/uL (0.0-0.2) Sodium Level 138 mmol/L (136-145) Potassium Level 4.2 mmol/L (3.5-5.1) Chloride Level 103 mmol/L (98-107) Carbon Dioxide Level 31 mmol/L (21-32) Anion Gap 4 (6-14) Blood Urea Nitrogen 20 mg/dL (7-20) Creatinine 0.5 mg/dL (0.6-1.0) Estimated GFR (Cockcroft-Gault) 132.2 BUN/Creatinine Ratio 40 (6-20) Glucose Level 153 mg/dL (70-99) Calcium Level 8.1 mg/dL (8.5-10.1) Total Bilirubin 1.0 mg/dL (0.2-1.0) Aspartate Amino Transf (AST/SGOT) 34 U/L (15-37) Alanine Aminotransferase (ALT/SGPT) 68 U/L (14-59) Alkaline Phosphatase 60 U/L (46-116) Total Protein 5.2 g/dL (6.4-8.2) Albumin 2.3 g/dL (3.4-5.0) Albumin/Globulin Ratio 0.8 (1.0-1.7) Test 11/13/19 06:03 11/13/19 08:00 Glucose (Fingerstick) 145 mg/dL (70-99) 135 mg/dL (70-99) Nutrition Consultation Dietary Evaluation: Recommendations by RD: Dietary education by RD, Increase Calorie Intake, Protein supplementation Comments: REC continue ADA/cardiac diet ,glucerna Expected Outcomes/Goals: PO intake to meet >75% est needs- met at times, goal ongoing Interpretation of weight loss: >5% in 1 month Malnutrition Findings: Food and Nutrition Intake (Sev: <50% est energy req 5days Weight Status: Morbidly Obese ENEDELIA HUYNH MD Nov 13, 2019 09:55
[2019-11-13] MEDS: oxyCODONE IR 5 MG TABLET PO PRN ×3 (10:42→23:00)
[2019-11-13] MEDS: PANTOPRAZOLE 40 MG TABLET.DR. PO SCH (10:44)
[2019-11-13] MEDS: ALPRAZolam 0.25 MG TABLET PO PRN (10:44)
[2019-11-13] MEDS: levETIRAcetam 500 MG TABLET PO SCH ×2 (10:45→21:08)
[2019-11-13] MEDS: cycloSPORINE 0.05% OPHTH DROPERETTE. OU SCH ×2 (10:45→21:04)
[2019-11-13] MEDS: NYSTATIN TOPICAL POWDER 15GM BOTTLE. TP SCH ×2 (10:46→21:06)
[2019-11-13] MEDS: FERROUS SULFATE ORAL 300 MG/5 ML SOLUTION. PO SCH (10:46)
--- NOTE | 2019-11-13 11:52 | PDOC ---
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 Vasogenic edema with 4 mm left to right midline shift Headaches. Cognitive impairment. Staring spells. CML. HTN. HLD. DM. KRISS. ADHD. PE Hx. Leukocytosis. Abdominal hemorrhage Obesity. L5 radiculopathy Status-post craniotomy on 11/12 Plan As per neurosurgery Levetiracetam Decadron taper per neurosurgery Will follow Subjective Denies pain Objective Vital Signs Date Time Temp Pulse Resp B/P (MAP) Pulse Ox O2 Delivery O2 Flow Rate FiO2 11/13/19 11:00 76 17 126/70 (88) 97 Nasal Cannula 3.0 11/13/19 08:00 98.7 98.7 Intake and Output 11/13/19 07:00 Intake Total 5405 ml Output Total 4320 ml Balance 1085 ml Intake Oral 50 ml IV Total 5355 ml Output Urine Total 4170 ml Estimated Blood Loss 150 ml PHYSICAL EXAM Physical Exam: Alert. Oriented to time, place and person. PERRL. EOMI. CN: no focal findings. Muscle tone: normal. Muscle strength: 4 right UE, 3-4 right LE, 4+ left side DTR: 1+ Plantar reflex: flexor Gait: not examined in bed. Sensory exam: no abnormal findings. No cerebellar signs elicited. Review of Relevant I have reviewed the following items mustapha (where applicable) has been applied. Labs Laboratory Tests Test 11/11/19 16:38 11/11/19 20:37 11/12/19 04:55 11/12/19 07:43 Glucose (Fingerstick) 350 mg/dL (70-99) 288 mg/dL (70-99) 360 mg/dL (70-99) White Blood Count 42.9 x10^3/uL (4.0-11.0) Red Blood Count 3.36 x10^6/uL (3.50-5.40) Hemoglobin 9.9 g/dL (12.0-15.5) Hematocrit 30.8 % (36.0-47.0) Mean Corpuscular Volume 92 fL (79-100) Mean Corpuscular Hemoglobin 29 pg (25-35) Mean Corpuscular Hemoglobin Concent 32 g/dL (31-37) Red Cell Distribution Width 17.2 % (11.5-14.5) Platelet Count 461 x10^3/uL (140-400) Neutrophils (%) (Auto) 95 % (31-73) Lymphocytes (%) (Auto) 3 % (24-48) Monocytes (%) (Auto) 2 % (0-9) Eosinophils (%) (Auto) 0 % (0-3) Basophils (%) (Auto) 0 % (0-3) Neutrophils # (Auto) 40.8 x10^3/uL (1.8-7.7) Lymphocytes # (Auto) 1.2 x10^3/uL (1.0-4.8) Monocytes # (Auto) 0.8 x10^3/uL (0.0-1.1) Eosinophils # (Auto) 0.0 x10^3/uL (0.0-0.7) Basophils # (Auto) 0.1 x10^3/uL (0.0-0.2) Segmented Neutrophils % 76 % (35-66) Band Neutrophils % 9 % (0-9) Lymphocytes % 3 % (24-48) Monocytes % 1 % (0-10) Metamyelocytes % 6 % (0-0) Myelocytes % 5 % (0-0) Platelet Estimate Increased (ADEQUATE) Polychromasia Mod Anisocytosis Mod Prothrombin Time 13.4 SEC (11.7-14.0) Prothromb Time International Ratio 1.1 (0.8-1.1) Activated Partial Thromboplast Time 22 SEC (24-38) Sodium Level 137 mmol/L (136-145) Potassium Level 4.4 mmol/L (3.5-5.1) Chloride Level 100 mmol/L (98-107) Carbon Dioxide Level 28 mmol/L (21-32) Anion Gap 9 (6-14) Blood Urea Nitrogen 23 mg/dL (7-20) Creatinine 0.7 mg/dL (0.6-1.0) Estimated GFR (Cockcroft-Gault) 89.7 Glucose Level 384 mg/dL (70-99) Calcium Level 8.1 mg/dL (8.5-10.1) Test 11/12/19 11:14 11/12/19 11:45 11/12/19 12:16 11/12/19 12:46 Glucose (Fingerstick) 308 mg/dL (70-99) 272 mg/dL (70-99) 252 mg/dL (70-99) 234 mg/dL (70-99) Test 11/12/19 13:18 11/12/19 13:44 11/12/19 14:05 11/12/19 15:10 Glucose (Fingerstick) 219 mg/dL (70-99) 207 mg/dL (70-99) 197 mg/dL (70-99) White Blood Count 73.4 x10^3/uL (4.0-11.0) Hemoglobin 8.9 g/dL (12.0-15.5) Hematocrit 28.7 % (36.0-47.0) Platelet Count 620 x10^3/uL (140-400) Sodium Level 136 mmol/L (136-145) Potassium Level 4.3 mmol/L (3.5-5.1) Chloride Level 104 mmol/L (98-107) Carbon Dioxide Level 25 mmol/L (21-32) Anion Gap 7 (6-14) Blood Urea Nitrogen 22 mg/dL (7-20) Creatinine 0.6 mg/dL (0.6-1.0) Estimated GFR (Cockcroft-Gault) 107.2 BUN/Creatinine Ratio 37 (6-20) Glucose Level 214 mg/dL (70-99) Calcium Level 7.2 mg/dL (8.5-10.1) Total Bilirubin 0.9 mg/dL (0.2-1.0) Aspartate Amino Transf (AST/SGOT) 40 U/L (15-37) Alanine Aminotransferase (ALT/SGPT) 77 U/L (14-59) Alkaline Phosphatase 71 U/L (46-116) Total Protein 5.0 g/dL (6.4-8.2) Albumin 2.3 g/dL (3.4-5.0) Albumin/Globulin Ratio 0.9 (1.0-1.7) Test 11/12/19 18:39 11/12/19 21:02 11/12/19 23:56 11/13/19 06:00 Glucose (Fingerstick) 228 mg/dL (70-99) 218 mg/dL (70-99) 176 mg/dL (70-99) White Blood Count 43.7 x10^3/uL (4.0-11.0) Red Blood Count 2.94 x10^6/uL (3.50-5.40) Hemoglobin 8.6 g/dL (12.0-15.5) Hematocrit 27.0 % (36.0-47.0) Mean Corpuscular Volume 92 fL (79-100) Mean Corpuscular Hemoglobin 29 pg (25-35) Mean Corpuscular Hemoglobin Concent 32 g/dL (31-37) Red Cell Distribution Width 17.3 % (11.5-14.5) Platelet Count 402 x10^3/uL (140-400) Neutrophils (%) (Auto) 94 % (31-73) Lymphocytes (%) (Auto) 4 % (24-48) Monocytes (%) (Auto) 2 % (0-9) Eosinophils (%) (Auto) 0 % (0-3) Basophils (%) (Auto) 0 % (0-3) Neutrophils # (Auto) 41.0 x10^3/uL (1.8-7.7) Lymphocytes # (Auto) 1.7 x10^3/uL (1.0-4.8) Monocytes # (Auto) 0.9 x10^3/uL (0.0-1.1) Eosinophils # (Auto) 0.0 x10^3/uL (0.0-0.7) Basophils # (Auto) 0.1 x10^3/uL (0.0-0.2) Sodium Level 138 mmol/L (136-145) Potassium Level 4.2 mmol/L (3.5-5.1) Chloride Level 103 mmol/L (98-107) Carbon Dioxide Level 31 mmol/L (21-32) Anion Gap 4 (6-14) Blood Urea Nitrogen 20 mg/dL (7-20) Creatinine 0.5 mg/dL (0.6-1.0) Estimated GFR (Cockcroft-Gault) 132.2 BUN/Creatinine Ratio 40 (6-20) Glucose Level 153 mg/dL (70-99) Calcium Level 8.1 mg/dL (8.5-10.1) Total Bilirubin 1.0 mg/dL (0.2-1.0) Aspartate Amino Transf (AST/SGOT) 34 U/L (15-37) Alanine Aminotransferase (ALT/SGPT) 68 U/L (14-59) Alkaline Phosphatase 60 U/L (46-116) Total Protein 5.2 g/dL (6.4-8.2) Albumin 2.3 g/dL (3.4-5.0) Albumin/Globulin Ratio 0.8 (1.0-1.7) Test 11/13/19 06:03 11/13/19 08:00 Glucose (Fingerstick) 145 mg/dL (70-99) 135 mg/dL (70-99) Laboratory Tests Test 11/12/19 12:16 11/12/19 12:46 11/12/19 13:18 11/12/19 13:44 Glucose (Fingerstick) 252 mg/dL (70-99) 234 mg/dL (70-99) 219 mg/dL (70-99) 207 mg/dL (70-99) Test 11/12/19 14:05 11/12/19 15:10 11/12/19 18:39 11/12/19 21:02 White Blood Count 73.4 x10^3/uL (4.0-11.0) Hemoglobin 8.9 g/dL (12.0-15.5) Hematocrit 28.7 % (36.0-47.0) Platelet Count 620 x10^3/uL (140-400) Sodium Level 136 mmol/L (136-145) Potassium Level 4.3 mmol/L (3.5-5.1) Chloride Level 104 mmol/L (98-107) Carbon Dioxide Level 25 mmol/L (21-32) Anion Gap 7 (6-14) Blood Urea Nitrogen 22 mg/dL (7-20) Creatinine 0.6 mg/dL (0.6-1.0) Estimated GFR (Cockcroft-Gault) 107.2 BUN/Creatinine Ratio 37 (6-20) Glucose Level 214 mg/dL (70-99) Calcium Level 7.2 mg/dL (8.5-10.1) Total Bilirubin 0.9 mg/dL (0.2-1.0) Aspartate Amino Transf (AST/SGOT) 40 U/L (15-37) Alanine Aminotransferase (ALT/SGPT) 77 U/L (14-59) Alkaline Phosphatase 71 U/L (46-116) Total Protein 5.0 g/dL (6.4-8.2) Albumin 2.3 g/dL (3.4-5.0) Albumin/Globulin Ratio 0.9 (1.0-1.7) Glucose (Fingerstick) 197 mg/dL (70-99) 228 mg/dL (70-99) 218 mg/dL (70-99) Test 11/12/19 23:56 11/13/19 06:00 11/13/19 06:03 11/13/19 08:00 Glucose (Fingerstick) 176 mg/dL (70-99) 145 mg/dL (70-99) 135 mg/dL (70-99) White Blood Count 43.7 x10^3/uL (4.0-11.0) Red Blood Count 2.94 x10^6/uL (3.50-5.40) Hemoglobin 8.6 g/dL (12.0-15.5) Hematocrit 27.0 % (36.0-47.0) Mean Corpuscular Volume 92 fL (79-100) Mean Corpuscular Hemoglobin 29 pg (25-35) Mean Corpuscular Hemoglobin Concent 32 g/dL (31-37) Red Cell Distribution Width 17.3 % (11.5-14.5) Platelet Count 402 x10^3/uL (140-400) Neutrophils (%) (Auto) 94 % (31-73) Lymphocytes (%) (Auto) 4 % (24-48) Monocytes (%) (Auto) 2 % (0-9) Eosinophils (%) (Auto) 0 % (0-3) Basophils (%) (Auto) 0 % (0-3) Neutrophils # (Auto) 41.0 x10^3/uL (1.8-7.7) Lymphocytes # (Auto) 1.7 x10^3/uL (1.0-4.8) Monocytes # (Auto) 0.9 x10^3/uL (0.0-1.1) Eosinophils # (Auto) 0.0 x10^3/uL (0.0-0.7) Basophils # (Auto) 0.1 x10^3/uL (0.0-0.2) Sodium Level 138 mmol/L (136-145) Potassium Level 4.2 mmol/L (3.5-5.1) Chloride Level 103 mmol/L (98-107) Carbon Dioxide Level 31 mmol/L (21-32) Anion Gap 4 (6-14) Blood Urea Nitrogen 20 mg/dL (7-20) Creatinine 0.5 mg/dL (0.6-1.0) Estimated GFR (Cockcroft-Gault) 132.2 BUN/Creatinine Ratio 40 (6-20) Glucose Level 153 mg/dL (70-99) Calcium Level 8.1 mg/dL (8.5-10.1) Total Bilirubin 1.0 mg/dL (0.2-1.0) Aspartate Amino Transf (AST/SGOT) 34 U/L (15-37) Alanine Aminotransferase (ALT/SGPT) 68 U/L (14-59) Alkaline Phosphatase 60 U/L (46-116) Total Protein 5.2 g/dL (6.4-8.2) Albumin 2.3 g/dL (3.4-5.0) Albumin/Globulin Ratio 0.8 (1.0-1.7) Microbiology 11/01/19 Blood Culture - Final, Complete NO GROWTH AFTER 5 DAYS Medications Current Medications Sodium Chloride 500 ml @ 500 mls/hr 1X ONCE IV Last administered on 11/01/19at 13:00; Start 11/01/19 at 13:00; Stop 11/01/19 at 13:59; Status DC Ondansetron HCl (Zofran) 4 mg 1X ONCE IV Last administered on 11/01/19at 13:26; Start 11/01/19 at 13:00; Stop 11/01/19 at 13:13; Status DC Hydromorphone HCl (Dilaudid) 0.5 mg 1X STAT IVP Last administered on 11/01/19at 13:26; Start 11/01/19 at 12:59; Stop 11/01/19 at 13:13; Status DC Iohexol (Omnipaque 300 Mg/ml) 75 ml 1X ONCE IV Last administered on 11/01/19at 14:08; Start 11/01/19 at 13:45; Stop 11/01/19 at 13:46; Status DC Info (CONTRAST GIVEN -- Rx MONITORING) 1 each PRN DAILY PRN MC SEE COMMENTS; Start 11/01/19 at 14:00; Stop 11/03/19 at 13:59; Status DC Hydromorphone HCl (Dilaudid) 0.5 mg 1X STAT IVP Last administered on 11/01/19at 16:53; Start 11/01/19 at 16:21; Stop 11/01/19 at 16:23; Status DC Sodium Chloride 1,000 ml @ 1,000 mls/hr 1X ONCE IV Last administered on 11/01/19at 16:30; Start 11/01/19 at 16:30; Stop 11/01/19 at 17:29; Status DC Sodium Chloride 500 ml @ 500 mls/hr 1X ONCE IV Last administered on 11/01/19at 16:30; Start 11/01/19 at 16:30; Stop 11/01/19 at 17:29; Status DC Albuterol Sulfate (Ventolin Neb Soln) 2.5 mg PRN Q6HRS PRN INH SHORTNESS OF BREATH; Start 11/01/19 at 16:30; Status Cancel Alprazolam (Xanax) 0.25 mg PRN TID PRN PO anxiety; Start 11/01/19 at 16:30; Stop 11/01/19 at 17:11; Status DC Amlodipine Besylate (Norvasc) 5 mg DAILY PO Last administered on 11/11/19at 09:19; Start 11/02/19 at 09:00 Cyclosporine (Restasis) 1 drop BID OU Last administered on 11/13/19at 10:45; Start 11/01/19 at 21:00 Fluticasone Propionate (Flonase) 2 spray DAILY NS Last administered on 11/11/19at 08:19; Start 11/02/19 at 09:00 Lactobacillus Rhamnosus (Culturelle) 1 cap BID PO Last administered on 11/09/19at 08:28; Start 11/01/19 at 21:00; Stop 11/09/19 at 16:57; Status DC Lidocaine (Lidoderm) 1 patch DAILY TP ; Start 11/02/19 at 09:00; Stop 11/01/19 at 20:34; Status DC Metoprolol Succinate (Toprol Xl) 100 mg HS PO Last administered on 11/12/19at 21:07; Start 11/01/19 at 21:00 Nystatin (Nystop) 1 raza BID TP Last administered on 11/13/19 10:46; Start 11/01/19 at 21:00 Pantoprazole Sodium (Protonix) 40 mg DAILYAC PO Last administered on 11/09/19 08:28; Start 11/02/19 at 07:30; Stop 11/09/19 at 16:54; Status DC Senna/Docusate Sodium (Senna Plus) 1 tab BID PO Last administered on 11/11/19at 21:46; Start 11/01/19 at 21:00 Sucralfate (Carafate) 1 gm TIDAC PO Last administered on 11/11/19at 16:23; Start 11/01/19 at 17:30 Tramadol HCl (Ultram) 50 mg PRN Q8HRS PRN PO PAIN; Start 11/01/19 at 16:30; Stop 11/01/19 at 19:43; Status DC Insulin Glargine (Lantus Syringe) 30 unit QHS SQ Last administered on 11/06/19at 21:16; Start 11/01/19 at 21:00; Stop 11/07/19 at 15:56; Status DC Ondansetron HCl (Zofran Odt) 8 mg PRN Q8HRS PRN PO NAUSEA/VOMITING Last administered on 11/07/19at 13:05; Start 11/01/19 at 17:15 Polyethylene Glycol (miraLAX PACKET) 17 gm PRN DAILY PRN PO CONSTIPATION, 1ST CHOICE Last administered on 11/11/19 08:18; Start 11/01/19 at 17:11 Atorvastatin Calcium (Lipitor) 80 mg QHS PO Last administered on 11/12/19at 21:06; Start 11/01/19 at 21:00 Insulin Human Lispro (HumaLOG) 0-9 UNITS TIDAC SQ Last administered on 11/07/19at 12:20; Start 11/01/19 at 16:30; Stop 11/07/19 at 15:56; Status DC Dextrose (Dextrose 50%-Water Syringe) 12.5 gm PRN Q15MIN PRN IV SEE COMMENTS; Start 11/01/19 at 16:30; Stop 11/12/19 at 15:36; Status DC Ondansetron HCl (Zofran) 4 mg PRN Q8HRS PRN IV NAUSEA/VOMITING; Start 11/01/19 at 16:30; Stop 11/02/19 at 16:29; Status DC Alprazolam (Xanax) 0.25 mg PRN TID PRN PO anxiety Last administered on 11/13/19at 10:44; Start 11/01/19 at 17:11 Miscellaneous (Lidoderm Patch Removal) 1 ea QHS MC ; Start 11/01/19 at 21:00; Stop 11/01/19 at 20:34; Status DC Ceftriaxone Sodium (Rocephin) 1 gm QHS IVP Last administered on 11/12/19at 21:11; Start 11/01/19 at 18:45 Tramadol HCl (Ultram) 50 mg PRN Q8HRS PRN PO MILD PAIN 1-3 Last administered on 11/05/19at 22:04; Start 11/01/19 at 19:45 Hydromorphone HCl (Dilaudid) 1 mg PRN Q4HRS PRN IV SEVERE PAIN Last administered on 11/13/19 08:47; Start 11/01/19 at 20:15 Lidocaine (Lidoderm) 1 patch QHS TP Last administered on 11/04/19at 21:55; Start 11/01/19 at 21:00 Miscellaneous (Lidoderm Patch Removal) 1 ea DAILY MC Last administered on 11/07/19at 09:00; Start 11/02/19 at 09:00 Albumin Human 500 ml @ 125 mls/hr 1X ONCE IV ; Start 11/02/19 at 02:00; Stop 11/02/19 at 05:59; Status Cancel Acetaminophen (Tylenol) 650 mg 1X PRN PRN PO PRE-TRANSFUSION; Start 11/02/19 at 06:45; Stop 11/03/19 at 14:16; Status DC Diphenhydramine HCl (Benadryl Oral Elixir) 12.5 mg 1X PRN PRN PO PRE- TRANSFUSION; Start 11/02/19 at 06:45; Stop 11/03/19 at 14:16; Status DC Diphenhydramine HCl (Benadryl) 25 mg PRN 1X PRN PO PRE-TRANSFUSION; Start 11/02/19 at 06:45; Stop 11/03/19 at 14:16; Status DC Lactulose (LACTULOSE 300ML for RECTAL) 200 gm Q6HRS MA Last administered on 11/02/19at 18:00; Start 11/02/19 at 18:00; Stop 11/04/19 at 14:44; Status DC Sodium Chloride 1,000 ml @ 100 mls/hr Q10H IV Last administered on 11/12/19at 02:14; Start 11/02/19 at 12:00 Lactulose (Lactulose) 20 gm PRN DAILY PRN PO CONSTIPATION, 2ND CHOICE; Start 11/04/19 at 14:45 Oxycodone HCl (Roxicodone) 5 mg PRN Q6HRS PRN PO MODERATE TO SEVERE PAIN Last administered on 11/13/19at 10:42; Start 11/04/19 at 14:45 Lidocaine HCl (Buffered Lidocaine 1%) 3 ml STK-MED ONCE .ROUTE ; Start 11/05/19 at 08:13; Stop 11/05/19 at 08:13; Status DC Lidocaine HCl (Buffered Lidocaine 1%) 3 ml STK-MED ONCE .ROUTE ; Start 11/05/19 at 08:14; Stop 11/05/19 at 08:14; Status DC Midazolam HCl (Versed) 2 mg STK-MED ONCE .ROUTE ; Start 11/05/19 at 08:40; Stop 11/05/19 at 08:40; Status DC Fentanyl Citrate (Fentanyl 2ml Vial) 100 mcg STK-MED ONCE .ROUTE ; Start 11/05/19 at 08:40; Stop 11/05/19 at 08:41; Status DC Lidocaine HCl (Buffered Lidocaine 1%) 3 ml 1X ONCE IJ Last administered on 11/05/19at 08:45; Start 11/05/19 at 08:45; Stop 11/05/19 at 08:50; Status DC Midazolam HCl (Versed) 2 mg 1X ONCE IV Last administered on 11/05/19at 08:45; Start 11/05/19 at 08:45; Stop 11/05/19 at 08:50; Status DC Fentanyl Citrate (Fentanyl 2ml Vial) 100 mcg 1X ONCE IV Last administered on 11/05/19at 08:45; Start 11/05/19 at 08:45; Stop 11/05/19 at 08:50; Status DC Dexamethasone Sodium Phosphate (Decadron) 4 mg Q6HRS IVP Last administered on 11/13/19at 11:38; Start 11/06/19 at 09:00 Insulin Glargine (Lantus Syringe) 40 unit QHS SQ Last administered on 11/12/19at 21:04; Start 11/07/19 at 21:00 Insulin Human Lispro (HumaLOG) 10 units TIDAC SQ Last administered on 11/11/19at 17:14; Start 11/07/19 at 16:30 Insulin Human Lispro (HumaLOG) 0-9 UNITS TIDWMEALS SQ Last administered on 11/11/19at 17:13; Start 11/07/19 at 17:00; Stop 11/12/19 at 15:37; Status DC Insulin Human Lispro (HumaLOG) 19 units 1X ONCE SQ Last administered on 11/09/19at 12:41; Start 11/09/19 at 12:15; Stop 11/09/19 at 12:16; Status DC Insulin Human Lispro (HumaLOG) 5 units 1X ONCE SQ Last administered on 11/09/19at 13:52; Start 11/09/19 at 13:30; Stop 11/09/19 at 13:31; Status DC Non-Formulary Medication 1 ea DAILY PO ; Start 11/09/19 at 16:30; Status Cancel Ondansetron HCl (Zofran) 4 mg PRN Q6HRS PRN IV NAUSEA/VOMITING; Start 11/12/19 at 07:00; Stop 11/12/19 at 19:56; Status DC Fentanyl Citrate (Fentanyl 2ml Vial) 25 mcg PRN Q5MIN PRN IV MILD PAIN 1-3; Start 11/12/19 at 07:00; Stop 11/12/19 at 19:56; Status DC Fentanyl Citrate (Fentanyl 2ml Vial) 50 mcg PRN Q5MIN PRN IV MODERATE TO SEVERE PAIN; Start 11/12/19 at 07:00; Stop 11/12/19 at 19:56; Status DC Morphine Sulfate (Morphine Sulfate) 1 mg PRN Q10MIN PRN IV SEVERE PAIN 7-10; Start 11/12/19 at 07:00; Stop 11/09/19 at 17:30; Status DC Ringer's Solution 1,000 ml @ 30 mls/hr Q24H IV Last administered on 11/12/19at 10:00; Start 11/12/19 at 07:00; Stop 11/12/19 at 18:59; Status DC Lidocaine HCl (Xylocaine-Mpf 1% 2ml Vial) 2 ml PRN 1X PRN ID PRIOR TO IV START; Start 11/12/19 at 07:00; Stop 11/12/19 at 19:56; Status DC Hydromorphone HCl (Dilaudid) 0.5 mg PRN Q10MIN PRN IV SEV PAIN, Second choice; Start 11/12/19 at 07:00; Stop 11/12/19 at 19:56; Status DC Prochlorperazine Edisylate (Compazine) 5 mg PACU PRN PRN IV NAUSEA, MRX1; Start 11/12/19 at 07:00; Stop 11/12/19 at 19:56; Status DC Pantoprazole Sodium (Protonix) 40 mg DAILYAC PO Last administered on 11/13/19at 10:44; Start 11/09/19 at 18:30 Levetiracetam (Keppra) 500 mg BID PO Last administered on 11/13/19at 10:45; Start 11/09/19 at 21:00 Non-Formulary Medication 1 ea DAILY PO ; Start 11/12/19 at 09:00 Insulin Human Lispro (HumaLOG) 8 units 1X ONCE SQ Last administered on 11/10/19at 12:32; Start 11/10/19 at 12:15; Stop 11/10/19 at 12:16; Status DC Propofol 20 ml @ As Directed STK-MED ONCE IV ; Start 11/12/19 at 07:48; Stop 11/12/19 at 07:48; Status DC Dexamethasone Sodium Phosphate (Decadron) 20 mg STK-MED ONCE .ROUTE ; Start 11/12/19 at 07:48; Stop 11/12/19 at 07:48; Status DC Lidocaine HCl (Lidocaine Pf 2% Vial) 5 ml STK-MED ONCE .ROUTE ; Start 11/12/19 at 07:48; Stop 11/12/19 at 07:48; Status DC Ondansetron HCl (Zofran) 4 mg STK-MED ONCE .ROUTE ; Start 11/12/19 at 07:48; Stop 11/12/19 at 07:48; Status DC Phenylephrine HCl (Tony-Synephrine Inj) 10 mg STK-MED ONCE .ROUTE ; Start 11/12/19 at 07:48; Stop 11/12/19 at 07:48; Status DC Propofol 50 ml @ As Directed STK-MED ONCE IV ; Start 11/12/19 at 07:48; Stop 11/12/19 at 07:48; Status DC Rocuronium [place] (Zemuron) 50 mg STK-MED ONCE .ROUTE ; Start 11/12/19 at 07:48; Stop 11/12/19 at 07:48; Status DC Remifentanil HCl (Ultiva) 2 mg STK-MED ONCE IV ; Start 11/12/19 at 07:48; Stop 11/12/19 at 07:49; Status DC Sodium Chloride (SODIUM CHLORIDE 20ml) 20 ml STK-MED ONCE IJ ; Start 11/12/19 at 07:49; Stop 11/12/19 at 07:49; Status DC Multi-Ingred Cream/Lotion/Oil/ Oint (Artificial Tears Eye Ointment) 7 raza STK- MED ONCE .ROUTE ; Start 11/12/19 at 07:49; Stop 11/12/19 at 07:49; Status DC Bacitracin 36115 unit/Sodium Chloride 1,000 ml @ 1,000 mls/hr 1X ONCE IRR Last administered on 11/12/19at 11:26; Start 11/12/19 at 07:57; Stop 11/12/19 at 08:56; Status DC Sodium Chloride (SODIUM CHLORIDE 20ml) 20 ml STK-MED ONCE IJ ; Start 11/12/19 at 07:57; Stop 11/12/19 at 07:57; Status DC Gelatin (Gelfoam Size 100) 1 each STK-MED ONCE .ROUTE Last administered on 11/12/19at 11:26; Start 11/12/19 at 07:59; Stop 11/12/19 at 07:59; Status DC Cellulose (Surgicel Hemostat 4x8) 1 each STK-MED ONCE .ROUTE Last administered on 11/12/19at 12:01; Start 11/12/19 at 07:59; Stop 11/12/19 at 08:00; Status DC Lidocaine/ Epinephrine (LIDOCAINE 1%-EPI 1:100,000 Multi-Dose) 20 ml STK-MED ONCE .ROUTE Last administered on 11/12/19 11:26; Start 11/12/19 at 07:59; Stop 11/12/19 at 08:00; Status DC Thrombin 20,000 unit STK-MED ONCE TP Last administered on 11/12/19at 11:26; Start 11/12/19 at 08:00; Stop 11/12/19 at 08:00; Status DC Bacitracin (Bacitracin Zinc Oint Pkt) 1 pkt STK-MED ONCE TP ; Start 11/12/19 at 08:00; Stop 11/12/19 at 08:00; Status DC Propofol 100 ml @ As Directed STK-MED ONCE IV ; Start 11/12/19 at 08:02; Stop 11/12/19 at 08:02; Status DC Insulin Human Lispro (HumaLOG) 11 units 1X ONCE SQ Last administered on 11/12/19at 08:15; Start 11/12/19 at 08:15; Stop 11/12/19 at 08:16; Status DC Gadoterate Meglumine (Dotarem) 24.8 ml 1X ONCE IVP Last administered on 11/12/19at 08:15; Start 11/12/19 at 08:15; Stop 11/12/19 at 08:16; Status DC Insulin Human Regular 100 unit/ Sodium Chloride 101 ml @ 12.484 mls/ hr ONCE ONCE IV ; Start 11/12/19 at 08:15; Stop 11/12/19 at 16:20; Status DC Desflurane (Suprane) 90 ml STK-MED ONCE IH ; Start 11/12/19 at 08:11; Stop 11/12/19 at 08:11; Status DC Fentanyl Citrate (Fentanyl 2ml Vial) 100 mcg STK-MED ONCE .ROUTE ; Start 11/12/19 at 08:20; Stop 11/12/19 at 08:20; Status DC Midazolam HCl (Versed) 2 mg STK-MED ONCE .ROUTE ; Start 11/12/19 at 08:20; Stop 11/12/19 at 08:20; Status DC Rocuronium [place] (Zemuron) 50 mg STK-MED ONCE .ROUTE ; Start 11/12/19 at 09:11; Stop 11/12/19 at 09:12; Status DC Mannitol (Mannitol) 12.5 g STK-MED ONCE .ROUTE ; Start 11/12/19 at 09:22; Stop 11/12/19 at 09:23; Status DC Propofol 100 ml @ As Directed STK-MED ONCE IV ; Start 11/12/19 at 09:22; Stop 11/12/19 at 09:23; Status DC Lidocaine HCl (Xylocaine-Mpf 1% 2ml Vial) 2 ml STK-MED ONCE .ROUTE ; Start 11/12/19 at 09:24; Stop 11/12/19 at 09:24; Status DC Cefazolin Sodium 3 gm/Dextrose 100 ml @ 200 mls/hr 1X PREOP ONCE IV Last administered on 11/12/19at 10:53; Start 11/12/19 at 10:30; Stop 11/12/19 at 10:59; Status DC Gelatin (Gelfoam Size 12-7mm) 1 each STK-MED ONCE .ROUTE Last administered on 11/12/19 12:03; Start 11/12/19 at 11:59; Stop 11/12/19 at 12:01; Status DC Thrombin 20,000 unit STK-MED ONCE TP Last administered on 11/12/19 12:04; Start 11/12/19 at 12:00; Stop 11/12/19 at 12:01; Status DC Gelatin (Gelfoam Size 100) 1 each STK-MED ONCE .ROUTE Last administered on 11/12/19at 12:25; Start 11/12/19 at 12:26; Stop 11/12/19 at 12:26; Status DC Gelatin (Gelfoam Size 12-7mm) 1 each STK-MED ONCE .ROUTE Last administered on 11/12/19 13:35; Start 11/12/19 at 13:32; Stop 11/12/19 at 13:33; Status DC Thrombin 20,000 unit STK-MED ONCE TP Last administered on 11/12/19 13:35; Start 11/12/19 at 13:32; Stop 11/12/19 at 13:33; Status DC Gelatin (Gelfoam Size 12-7mm) 1 each STK-MED ONCE .ROUTE Last administered on 11/12/19 13:55; Start 11/12/19 at 13:55; Stop 11/12/19 at 13:55; Status DC Gelatin (Gelfoam Size 12-7mm) 1 each STK-MED ONCE .ROUTE Last administered on 11/12/19at 13:59; Start 11/12/19 at 13:59; Stop 11/12/19 at 13:59; Status DC Labetalol HCl (Normodyne Iv Push) 5 mg PRN Q15MIN PRN IVP HYPERTENSION; Start 11/12/19 at 15:15 Nicardipine HCl 50 mg/Sodium Chloride 250 ml @ 25 mls/hr TITRATE PRN IV SBP 90-140; Start 11/12/19 at 15:15 Hydralazine HCl (Apresoline Inj) 5 mg PRN Q6HRS PRN IVP TO KEEP SBP<140mmHg; Start 11/12/19 at 15:15 Al Hydroxide/Mg Hydroxide (Mylanta Plus Xs) 30 ml PRN Q3HRS PRN PO HEARTBURN / GAS; Start 11/12/19 at 15:15 Calcium Carbonate/ Glycine (Tums) 500 mg PRN Q3HRS PRN PO INDIGESTION; Start 11/12/19 at 15:15 Diphenhydramine HCl (Benadryl) 25 mg PRN Q6HRS PRN PO ITCHING; Start 11/12/19 at 15:15 Diphenhydramine HCl (Benadryl) 25 mg PRN Q6HRS PRN IV ITCHING; Start 11/12/19 at 15:15 Sodium Chloride (Normal Saline Flush) 3 ml QSHIFT PRN IV AFTER MEDS AND BLOOD DRAWS; Start 11/12/19 at 15:15 Insulin Human Lispro (HumaLOG) 0-5 UNITS TIDWMEALS SQ Last administered on 11/12/19at 20:08; Start 11/12/19 at 17:00 Dextrose (Dextrose 50%-Water Syringe) 12.5 gm PRN Q15MIN PRN IV SEE COMMENTS; Start 11/12/19 at 15:15 Dextrose (Iv Dextrose 5%) 250 ml PRN Q15MIN PRN IV SEE COMMENTS; Start 11/12/19 at 15:15 Hydromorphone HCl (Dilaudid) 0.2 mg PRN Q1HR PRN IV MODERATE PAIN; Start 11/12/19 at 15:15 Insulin Human Lispro (HumaLOG VIAL for OP,RR ONLY) 0-10 units PRN Q1HR PRN SQ PER PROTOCOL Last administered on 11/12/19at 15:50; Start 11/12/19 at 16:00; Stop 11/12/19 at 19:54; Status DC Insulin Human Lispro (HumaLOG VIAL for OP,RR ONLY) 4 unit 1X ONCE SQ ; Start 11/12/19 at 16:45; Stop 11/12/19 at 16:46; Status DC Ferrous Sulfate (Iron Oral Solution) 300 mg QD PO Last administered on 11/13/19at 10:46; Start 11/13/19 at 10:00 Active Scripts Active Enoxaparin Sodium 120 Mg/0.8 Ml Disp.syrin 120 Mg SQ Q12HR 28 Days Dexamethasone 4 Mg Tablet 4 Mg PO BID 14 Days Culturelle (Lactobacillus Rhamnosus Gg) 1 Each Cap.sprink 1 Cap PO BID 30 Days Amlodipine Besylate 5 Mg Tablet 5 Mg PO DAILY 30 Days Cefdinir 300 Mg Capsule 300 Mg PO BID 10 Days Reported Cymbalta (Duloxetine Hcl) 60 Mg Capsule.dr 1 Cap PO BID Lyrica (Pregabalin) 150 Mg Capsule 1 Cap PO BID Novolog (Insulin Aspart) 100 Unit/1 Ml Cartridge 10-45 Unit SQ QIDACHS Levemir (Insulin Detemir) 100 Unit/1 Ml Vial 30 Unit SQ HS Linzess (Linaclotide) 145 Mcg Capsule 145 Mcg PO PRN PRN Crestor (Rosuvastatin Calcium) 40 Mg Tablet 0.5 Tab PO DAILY Polyethylene Glycol 3350 2,500 Gm Powder 17 Gm PO PRN PRN Xanax (Alprazolam) 1 Mg Tablet 1 Tab PO TID Restasis (Cyclosporine) 1 Each Droperette 1 Drop EACHEYE BID Proair Hfa Inhaler (Albuterol Sulfate) 8.5 Gm Hfa.aer.ad 1 Puff INH PRN Q6HRS PRN Tramadol Hcl 50 Mg Tablet 1 Tab PO PRN Q8HRS PRN Ondansetron Hcl 4 Mg Tablet 2 Tab PO PRN Q8HRS PRN Nystatin 15 Gm Powder 1 Raza TP BID Lidocaine PATCH (Lidocaine) 1 Each Adh..patch 1 Each TP DAILY Fluticasone Propionate Nasal [place] (Fluticasone Propionate) 16 Gm [place].susp 2 [place] NS DAILY Percocet 5-325 Mg Tablet (Oxycodone/Acetaminophen) 1 Each Tablet 1-2 Tab PO Q4-6HRS PRN LAST DOSE AT NEXT DOSE Senna-Docusate Sodium Tablet (Sennosides/Docusate Sodium) 1 Each Tablet 1 Each PO BID LAST DOSE THIS AM NEXT DOSE TONCLIVE Robaxin-750 (Methocarbamol) 750 Mg Tablet 1 Tab PO TID LAST DOSE AT 1400 (2PM) MAY HAVE THE NEXT DOSE AT 10 PM Protonix (Pantoprazole Sodium) 40 Mg Tablet.dr 40 Mg PO DAILY LST DOSE THIS AM NEXT DOSE TOMORROW AM Carafate (Sucralfate) 1 Gm Tablet 1 Tab PO TID Meds not given this hospital admission. May resume home medications as approved by Physician. MAY TAKE WHEN AVAILABLE Xarelto (Rivaroxaban) 15 Mg Tablet 15 Mg PO DAILY Meds not given this hospital admission. May resume home medications as approved by Physician. MAY RESUME WHEN AVAILABLE Metoprolol Succinate ( Xl ) (Metoprolol Succinate) 100 Mg Tab.er.24h 100 Mg PO HS LAST DOSE THIS AM NEXT DOSE TOMORROW AM Vitals/I & O Vital Sign - Last 24 Hours 11/12/19 11/12/19 11/12/19 11/12/19 15:00 15:00 15:15 15:30 Temp 98.4 98.4 98.4 98.4 98.4 98.4 Pulse 88 80 80 Resp 17 17 15 B/P (MAP) 98/54 102/96 92/64 100/67 100/67 110/61 Pulse Ox 100 100 100 O2 Delivery Simple Mask Mask Simple Mask Simple Mask O2 Flow Rate 10 10 10 10 11/12/19 11/12/19 11/12/19 11/12/19 15:50 16:15 16:30 16:44 Temp 98.4 98.0 98.4 98.0 Pulse 84 62 62 66 Resp 15 14 16 12 B/P (MAP) 84/66 108/68 (81) 124/70 (88) 128/72 (90) Pulse Ox 100 95 100 100 O2 Delivery Simple Mask Simple Mask Simple Mask Simple Mask O2 Flow Rate 10 4.0 4.0 4.0 11/12/19 11/12/19 11/12/19 11/12/19 17:00 17:30 18:00 18:42 Temp 98.0 98.0 Pulse 66 66 74 Resp 18 19 18 B/P (MAP) 134/74 (94) 134/74 (94) 138/74 (95) Pulse Ox 100 100 100 100 O2 Delivery Simple Mask Simple Mask Simple Mask Simple Mask O2 Flow Rate 4.0 4.0 4.0 4.0 11/12/19 11/12/19 11/12/19 11/12/19 19:00 20:00 20:00 21:00 Temp 98.5 98.5 Pulse 78 81 82 Resp 16 16 16 B/P (MAP) 121/70 (87) 111/76 (88) 103/84 (90) Pulse Ox 100 100 100 O2 Delivery Simple Mask Mask Simple Mask Nasal Cannula O2 Flow Rate 4.0 4.0 4.0 3.0 11/12/19 11/12/19 11/12/19 11/12/19 21:07 22:00 23:00 23:58 Pulse 81 85 89 Resp 17 18 15 B/P (MAP) 111/76 115/73 (87) 104/68 (80) Pulse Ox 98 98 98 O2 Delivery Nasal Cannula Nasal Cannula O2 Flow Rate 3.0 3.0 3.0 11/12/19 11/12/19 11/13/19 11/13/19 23:59 23:59 01:00 02:00 Temp 98.5 98.5 Pulse 97 63 63 Resp 17 15 20 B/P (MAP) 103/69 (80) 98/62 (74) 106/68 (81) Pulse Ox 98 99 99 O2 Delivery Mask Nasal Cannula Nasal Cannula Nasal Cannula O2 Flow Rate 4.0 3.0 3.0 3.0 11/13/19 11/13/19 11/13/19 11/13/19 02:36 03:00 04:00 04:00 Temp 98.7 98.7 Pulse 18 86 Resp 20 20 B/P (MAP) 104/64 (77) 103/66 (78) Pulse Ox 99 99 98 O2 Delivery Nasal Cannula Nasal Cannula Mask O2 Flow Rate 3.0 3.0 3.0 4.0 11/13/19 11/13/19 11/13/19 11/13/19 04:45 05:11 06:06 07:00 Pulse 17 15 76 Resp 12 18 18 15 B/P (MAP) 103/62 (76) 102/61 (75) 112/61 (78) Pulse Ox 98 99 99 99 O2 Delivery Nasal Cannula Nasal Cannula Nasal Cannula O2 Flow Rate 3.0 3.0 3.0 3.0 11/13/19 11/13/19 11/13/19 11/13/19 07:30 08:00 08:40 08:47 Temp 98.7 98.7 Pulse 86 Resp 17 17 22 B/P (MAP) 115/66 (82) Pulse Ox 99 98 98 O2 Delivery Nasal Cannula Nasal Cannula Nasal Cannula Nasal Cannula O2 Flow Rate 3.0 3.0 3.0 3.0 11/13/19 11/13/19 11/13/19 11/13/19 09:00 09:17 10:00 10:42 Pulse 79 83 Resp 14 14 28 17 B/P (MAP) 101/66 (78) 128/68 (88) Pulse Ox 96 96 97 96 O2 Delivery Nasal Cannula Nasal Cannula Nasal Cannula Nasal Cannula O2 Flow Rate 3.0 3.0 3.0 3.0 11/13/19 11:00 Pulse 76 Resp 17 B/P (MAP) 126/70 (88) Pulse Ox 97 O2 Delivery Nasal Cannula O2 Flow Rate 3.0 Intake and Output 11/12/19 11/12/19 11/13/19 15:00 23:00 07:00 Intake Total 4300 ml 50 ml 1055 ml Output Total 1470 ml 1750 ml 1100 ml Balance 2830 ml -1700 ml -45 ml CISCO KLEIN MD Nov 13, 2019 11:52
--- NOTE | 2019-11-13 12:04 | PDOC ---
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 On her way to Oncology day of admit her left leg gave out on her and she felt like she was floating. She's been having abdominal bruising and pain to the right side of her abdomen with swelling and the bruise feels so tense that she thinks an alien or baby is going to burst out. CT abdomen shows large right subcutaneous hematoma with active bleeding. She also started having intermittent nosebleeds day prior to admit and again day of admission. EKG shows a sinus rhythm at 94 bpm, normal axis, QTC 466 ms, no ST elevation. Labs concerning for WBC of 81. 11/02: Hb 6.6 today. ordered 2u PRBC. She is still a little confused, better than prior admit. She was feeling uncoordinated and notes her headache she has been having. Reports her pain is 10. 11/03: Overnight had BM, pain better controlled. Hb 7 now s/p 2u PRBC. WBC 45. Still a bit confused. No further epistaxis. No CP or SOB. 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 Plan for craniotomy today. heme onc following large belly bruise stable HGb 8 after BT bateman peripheral line eating ok, sleeping ok PLAN: cont decadron IV EEG Close neuro checks Decadron 4 mg IV q6h. Continue Lipitor HS. Treat medical diseases. Consulted Neurosurgery consult Oncology.. -plan for craniotomy Monday 11/12 ICU after surgery 36 min pt exam, chart revieqw, > 50% of time spent with exam, chart review, pt care coordination 11/13/19 Patient seen and examined in the ICU She has a large cranial incision with clean dry intact dressing Now not able to move her right side too much but is able to wiggle her right toes Has an art line in Discussed with RN Chart reviewed She is critically ill Vitals/I&O Vitals/I&O: Vital Signs Date Time Temp Pulse Resp B/P (MAP) Pulse Ox O2 Delivery O2 Flow Rate FiO2 11/13/19 11:00 76 17 126/70 (88) 97 Nasal Cannula 3.0 11/13/19 08:00 98.7 98.7 I & O 11/12/19 11/12/19 11/13/19 15:00 23:00 07:00 Intake Total 4300 ml 50 ml 1055 ml Output Total 1470 ml 1750 ml 1100 ml Balance 2830 ml -1700 ml -45 ml Physical Exam General: Cooperative, mild distress, Other (extremely weak and depressed) Heart: Regular rate, Normal S1, Normal S2 Lungs: Wheezing Abdomen: Soft, Other (eechymosis improving) Extremities: No clubbing, No cyanosis, No edema, Normal pulses, No tenderness/swelling Skin: No rashes, No breakdown, Other (Ecchymosis on right abdomen) Labs Labs: Laboratory Tests Test 11/12/19 12:16 11/12/19 12:46 11/12/19 13:18 11/12/19 13:44 Glucose (Fingerstick) 252 mg/dL (70-99) 234 mg/dL (70-99) 219 mg/dL (70-99) 207 mg/dL (70-99) Test 11/12/19 14:05 11/12/19 15:10 11/12/19 18:39 11/12/19 21:02 White Blood Count 73.4 x10^3/uL (4.0-11.0) Hemoglobin 8.9 g/dL (12.0-15.5) Hematocrit 28.7 % (36.0-47.0) Platelet Count 620 x10^3/uL (140-400) Sodium Level 136 mmol/L (136-145) Potassium Level 4.3 mmol/L (3.5-5.1) Chloride Level 104 mmol/L (98-107) Carbon Dioxide Level 25 mmol/L (21-32) Anion Gap 7 (6-14) Blood Urea Nitrogen 22 mg/dL (7-20) Creatinine 0.6 mg/dL (0.6-1.0) Estimated GFR (Cockcroft-Gault) 107.2 BUN/Creatinine Ratio 37 (6-20) Glucose Level 214 mg/dL (70-99) Calcium Level 7.2 mg/dL (8.5-10.1) Total Bilirubin 0.9 mg/dL (0.2-1.0) Aspartate Amino Transf (AST/SGOT) 40 U/L (15-37) Alanine Aminotransferase (ALT/SGPT) 77 U/L (14-59) Alkaline Phosphatase 71 U/L (46-116) Total Protein 5.0 g/dL (6.4-8.2) Albumin 2.3 g/dL (3.4-5.0) Albumin/Globulin Ratio 0.9 (1.0-1.7) Glucose (Fingerstick) 197 mg/dL (70-99) 228 mg/dL (70-99) 218 mg/dL (70-99) Test 11/12/19 23:56 11/13/19 06:00 11/13/19 06:03 11/13/19 08:00 Glucose (Fingerstick) 176 mg/dL (70-99) 145 mg/dL (70-99) 135 mg/dL (70-99) White Blood Count 43.7 x10^3/uL (4.0-11.0) Red Blood Count 2.94 x10^6/uL (3.50-5.40) Hemoglobin 8.6 g/dL (12.0-15.5) Hematocrit 27.0 % (36.0-47.0) Mean Corpuscular Volume 92 fL (79-100) Mean Corpuscular Hemoglobin 29 pg (25-35) Mean Corpuscular Hemoglobin Concent 32 g/dL (31-37) Red Cell Distribution Width 17.3 % (11.5-14.5) Platelet Count 402 x10^3/uL (140-400) Neutrophils (%) (Auto) 94 % (31-73) Lymphocytes (%) (Auto) 4 % (24-48) Monocytes (%) (Auto) 2 % (0-9) Eosinophils (%) (Auto) 0 % (0-3) Basophils (%) (Auto) 0 % (0-3) Neutrophils # (Auto) 41.0 x10^3/uL (1.8-7.7) Lymphocytes # (Auto) 1.7 x10^3/uL (1.0-4.8) Monocytes # (Auto) 0.9 x10^3/uL (0.0-1.1) Eosinophils # (Auto) 0.0 x10^3/uL (0.0-0.7) Basophils # (Auto) 0.1 x10^3/uL (0.0-0.2) Sodium Level 138 mmol/L (136-145) Potassium Level 4.2 mmol/L (3.5-5.1) Chloride Level 103 mmol/L (98-107) Carbon Dioxide Level 31 mmol/L (21-32) Anion Gap 4 (6-14) Blood Urea Nitrogen 20 mg/dL (7-20) Creatinine 0.5 mg/dL (0.6-1.0) Estimated GFR (Cockcroft-Gault) 132.2 BUN/Creatinine Ratio 40 (6-20) Glucose Level 153 mg/dL (70-99) Calcium Level 8.1 mg/dL (8.5-10.1) Total Bilirubin 1.0 mg/dL (0.2-1.0) Aspartate Amino Transf (AST/SGOT) 34 U/L (15-37) Alanine Aminotransferase (ALT/SGPT) 68 U/L (14-59) Alkaline Phosphatase 60 U/L (46-116) Total Protein 5.2 g/dL (6.4-8.2) Albumin 2.3 g/dL (3.4-5.0) Albumin/Globulin Ratio 0.8 (1.0-1.7) Test 11/13/19 11:36 Glucose (Fingerstick) 176 mg/dL (70-99) Assessment and Plan Assessmemt and Plan Problems Medical Problems: (1) Abdominal hemorrhage Status: Acute (2) Generalized weakness Status: Acute (3) Lactic acidosis Status: Acute (4) Leukocytosis Status: Acute Postop day 1 craniotomy with meningioma resection Chronic Myelogenous Leukemia - s/p bone marrow biopsy 11/05 Abdominal pain Leukocytosis Acute encephalopathy -POA, resolved Headaches DM2 Chronic Back Pain and Sciatica Rt Leg Acute blood loss anemia Brain Mass Hx PE Hypotension Epistaxis Plan ICU monitoring Monitoring blood pressure with RN Aggressive PT and OT if possible Wound residential medications Appreciate subspecialist input Prognosis long-term guarded She is critically ill Total time 32 minutes Comment Review of Relevant I have reviewed the following items mustapha (where applicable) has been applied. Medications: Current Medications Medications (Trade) Dose Ordered Sig/Nikki Route PRN Reason Start Time Stop Time Status Last Admin Dose Admin Gelatin (Gelfoam Size 100) 1 each STK-MED ONCE .ROUTE 11/12/19 12:26 11/12/19 12:26 DC 11/12/19 12:25 Gelatin (Gelfoam Size 12-7mm) 1 each STK-MED ONCE .ROUTE 11/12/19 13:32 11/12/19 13:33 DC 11/12/19 13:35 Thrombin 20,000 unit STK-MED ONCE TP 11/12/19 13:32 11/12/19 13:33 DC 11/12/19 13:35 Gelatin (Gelfoam Size 12-7mm) 1 each STK-MED ONCE .ROUTE 11/12/19 13:55 11/12/19 13:55 DC 11/12/19 13:55 Gelatin (Gelfoam Size 12-7mm) 1 each STK-MED ONCE .ROUTE 11/12/19 13:59 11/12/19 13:59 DC 11/12/19 13:59 Insulin Human Lispro (HumaLOG) 0-5 UNITS TIDWMEALS SQ 11/12/19 17:00 11/12/19 20:08 Insulin Human Lispro (HumaLOG VIAL for OP,RR ONLY) 0-10 units PRN Q1HR PRN SQ PER PROTOCOL 11/12/19 16:00 11/12/19 19:54 DC 11/12/19 15:50 Ferrous Sulfate (Iron Oral Solution) 300 mg QD PO 11/13/19 10:00 11/13/19 10:46 VANGIE MAC K III DO Nov 13, 2019 12:04
[2019-11-13] MEDS: SUCRALFATE 1 GM TABLET. PO SCH ×2 (12:47→16:53)
[2019-11-13] MEDS ORDERED: GADOTERATE 5 MMOL/10ML VIAL. IVP ONE (14:45)
[2019-11-13] MEDS ORDERED: GADOTERATE 7.5 MMOL/15ML VIAL. IVP ONE (14:45)
[2019-11-13] MEDS: IV NORMAL SALINE 1000ML BAG 1,000 ML IV SCH (15:30)
--- NOTE | 2019-11-13 16:04 | RAD ---
MRI of the Brain without and with Contrast 11/13/2019 Clinical History: Post meningioma resection. Technique: Unenhanced T1-weighted sagittal and axial and FLAIR, T2-weighted and diffusion-weighted axial images of the brain were obtained. After the intravenous administration of 24 cc of DOTAREM, enhanced T1-weighted axial, sagittal and coronal images of the brain were obtained. Findings: Comparison is made to patient's MRI of the brain dated 11/12/2019 along with the patient's CT scan of the head dated 11/12/2019. The patient is post left parietal craniotomy. The 4 cm enhancing mass in the left superior parietal region has largely been resected. Residual enhancing mass is seen superiorly and medially in the left parietal region which measures 2.8 x 1.7 x 1.1 cm in AP, craniocaudal and transverse dimensions. Hemorrhage is seen within the left superior parietal lobe. An extra-axial hematoma is seen laterally within the left parietal lobe which measures 1 cm in thickness. A subdural hematoma is seen within the posterior interhemispheric fissure which measures 6 mm in thickness. This extends inferiorly to involve the left aspect of the tentorium. These areas of hemorrhage have not significantly changed when compared to the patient's CT scan from yesterday. There is mild associated mass effect which is unchanged. Edema is seen involving the left parietal lobe which has not significant changed. The ventricles are not dilated. Patchy and small scattered areas of increased signal intensity are seen within the periventricular and subcortical white matter along with the garret on the FLAIR and T2-weighted images consistent with areas of small vessel ischemic disease. These are unchanged. Mild mucosal thickening is seen scattered throughout the ethmoid air cells bilaterally. There are small bilateral mastoid effusions. Normal flow voids are seen within the major vascular structures surrounding the brain parenchyma. IMPRESSION: Post left parietal craniotomy with resection of the extra-axial mass from the left parietal region. Residual enhancing mass is seen superiorly and medially within the left region which measures 2.8 cm in size. Intraparenchymal and extra-axial hemorrhage is seen within the left parietal region as discussed above. Edema is seen involving the left parietal lobe. The hemorrhage and edema does not appear significantly changed since the patient's CT scan from yesterday. Electronically signed by: Alexis Samano MD (11/13/2019 4:01 PM) [place] [id number]
[2019-11-13] MEDS: LIDOCAINE (700MG/PATCH) PATCH. TP SCH (20:56)
[2019-11-13] MEDS: INSULIN GLARGINE SYRINGE. SQ SCH (21:01)
[2019-11-13] MEDS: ATORVASTATIN CALCIUM 40 MG TABLET. PO SCH (21:04)
[2019-11-13] MEDS: METOPROLOL SUCC 24HR ER 100 MG TAB.ER.24H. PO SCH (21:04)
[2019-11-13] MEDS: cefTRIAXone IV Push 1 GM VIAL. IVP SCH (21:08)
[2019-11-14] VITALS (15 sets, daily range): BP systolic 92–111; BP diastolic 49–64
[2019-11-14] MEDS: DEXAMETHASONE SOD PHOS 4 MG/ML VIAL IVP SCH ×4 (00:04→17:24)
[2019-11-14] MEDS: HYDROmorphone 2 MG/ML VIAL IV PRN ×6 (01:27→21:43)
[2019-11-14] MEDS: oxyCODONE IR 5 MG TABLET PO PRN ×3 (04:42→20:31)
--- NOTE | 2019-11-14 05:39 | NUR ---
0200 patient pulse drop into the 40"s decreased Precedex to 0.4mg. with little improvement decrease Precedex again to 0.02mg. [address] Carrion informed him of patient pulse, increasing bp and increased restlessness. Changed medication to Haldol to 1-2 mg iv q 1hr. Dr. Carrion states if this doesnt help bp call [facility]/ 0530 bp at 160/[address] Sav dunbar Haldol 5 mg q 4hrs pn Addendum: 11/14/19 at 0548 by ZULEIMA MCINTYRE RN please disreagard above noted.
--- NOTE | 2019-11-14 05:48 | NUR ---
0200 patient pulse drop into the 40"s decreased Precedex to 0.4mg. with little improvement decrease Precedex again to 0.02mg. [address] Carrion informed him of patient pulse, increasing bp and increased restlessness. Changed medication to Haldol to 1-2 mg iv q 1hr. Dr. Carrion states if this doesnt help bp call pcp/ 0530 bp at 160/[address] Ang ordered Haldol 5 mg q 4hrs pn
[2019-11-14 06:19] LABS: HEMATOCRIT 25.2 % (36.0-47.0); RED BLOOD COUNT 2.72 x10^6/uL (3.50-5.40); RED CELL DISTRIBUTION WIDTH 18.2 % (11.5-14.5); WHITE BLOOD COUNT 31.4 x10^3/uL (4.0-11.0)
[2019-11-14 06:35] LABS: ALBUMIN 2.2 g/dL (3.4-5.0); ALBUMIN/GLOBULIN RATIO 0.8 (1.0-1.7); CALCIUM 7.8 mg/dL (8.5-10.1); CREATININE 0.5 mg/dL (0.6-1.0); GFR 132.2
[2019-11-14] MEDS: SUCRALFATE 1 GM TABLET. PO SCH ×3 (07:00→17:23)
[2019-11-14] MEDS: SENNOSIDES/DOCUSATE 8.6/50MG TABLET. PO SCH ×2 (08:19→21:45)
[2019-11-14] MEDS: levETIRAcetam 500 MG TABLET PO SCH ×2 (08:19→21:45)
[2019-11-14] MEDS: PANTOPRAZOLE 40 MG TABLET.DR. PO SCH (08:19)
[2019-11-14] MEDS: LIDOCAINE (700MG/PATCH) PATCH. TP SCH (08:19)
[2019-11-14] MEDS: INSULIN LISPRO 300 UNITS/3 ML VIAL. SQ SCH ×6 (08:20→17:32)
[2019-11-14] MEDS: amLODIPine BESYLATE 5 MG TABLET PO SCH (09:00)
[2019-11-14] MEDS: NYSTATIN TOPICAL POWDER 15GM BOTTLE. TP SCH ×2 (09:00→21:52)
[2019-11-14] MEDS: FLUTICASONE 50MCG/NASAL SPRAY 16GM BOTTLE. NS SCH (09:00)
[2019-11-14] MEDS: PATCH REMOVAL. MC SCH (09:00)
[2019-11-14] MEDS: cycloSPORINE 0.05% OPHTH DROPERETTE. OU SCH ×2 (09:46→21:44)
--- NOTE | 2019-11-14 11:16 | PDOC ---
PROGRESS NOTES Subjective Subjective Denies acute changes ON. Objective Objective Vital Signs Date Time Temp Pulse Resp B/P (MAP) Pulse Ox O2 Delivery O2 Flow Rate FiO2 11/14/19 10:00 77 14 101/56 (71) 94 Nasal Cannula 3.0 11/14/19 07:00 97.9 97.9 Intake and Output 11/14/19 07:00 Intake Total 1442 ml Output Total 3525 ml Balance -2083 ml Intake Oral 360 ml IV Total 1082 ml Output Urine Total 3525 ml Physical Exam Physical Exam AAOx4, speech slur, minimal wiggle right toe, 0/5 RUE, sensation reports slightly improved to LT RUE and RLE, dressing c/d/i MRI brain with expected small residual mass along sinus, small restricted diffusion white matter, persistent edema of adjacent parenchyma Assessment Assessment Problems Medical Problems: (1) Abdominal hemorrhage Status: Acute (2) Generalized weakness Status: Acute (3) Lactic acidosis Status: Acute (4) Leukocytosis Status: Acute Plan Plan of Care POD 2 craniotomy -okay to downgrade from ICU from NS standpoint -aggressive PT/OT/ST -continue steroid for edema Comment Review of Relevant I have reviewed the following items mustapha (where applicable) has been applied. Labs Laboratory Tests Test 11/12/19 11:14 11/12/19 11:45 11/12/19 12:16 11/12/19 12:46 Glucose (Fingerstick) 308 mg/dL (70-99) 272 mg/dL (70-99) 252 mg/dL (70-99) 234 mg/dL (70-99) Test 11/12/19 13:18 11/12/19 13:44 11/12/19 14:05 11/12/19 15:10 Glucose (Fingerstick) 219 mg/dL (70-99) 207 mg/dL (70-99) 197 mg/dL (70-99) White Blood Count 73.4 x10^3/uL (4.0-11.0) Hemoglobin 8.9 g/dL (12.0-15.5) Hematocrit 28.7 % (36.0-47.0) Platelet Count 620 x10^3/uL (140-400) Sodium Level 136 mmol/L (136-145) Potassium Level 4.3 mmol/L (3.5-5.1) Chloride Level 104 mmol/L (98-107) Carbon Dioxide Level 25 mmol/L (21-32) Anion Gap 7 (6-14) Blood Urea Nitrogen 22 mg/dL (7-20) Creatinine 0.6 mg/dL (0.6-1.0) Estimated GFR (Cockcroft-Gault) 107.2 BUN/Creatinine Ratio 37 (6-20) Glucose Level 214 mg/dL (70-99) Calcium Level 7.2 mg/dL (8.5-10.1) Total Bilirubin 0.9 mg/dL (0.2-1.0) Aspartate Amino Transf (AST/SGOT) 40 U/L (15-37) Alanine Aminotransferase (ALT/SGPT) 77 U/L (14-59) Alkaline Phosphatase 71 U/L (46-116) Total Protein 5.0 g/dL (6.4-8.2) Albumin 2.3 g/dL (3.4-5.0) Albumin/Globulin Ratio 0.9 (1.0-1.7) Test 11/12/19 18:39 11/12/19 21:02 11/12/19 23:56 11/13/19 06:00 Glucose (Fingerstick) 228 mg/dL (70-99) 218 mg/dL (70-99) 176 mg/dL (70-99) White Blood Count 43.7 x10^3/uL (4.0-11.0) Red Blood Count 2.94 x10^6/uL (3.50-5.40) Hemoglobin 8.6 g/dL (12.0-15.5) Hematocrit 27.0 % (36.0-47.0) Mean Corpuscular Volume 92 fL (79-100) Mean Corpuscular Hemoglobin 29 pg (25-35) Mean Corpuscular Hemoglobin Concent 32 g/dL (31-37) Red Cell Distribution Width 17.3 % (11.5-14.5) Platelet Count 402 x10^3/uL (140-400) Neutrophils (%) (Auto) 94 % (31-73) Lymphocytes (%) (Auto) 4 % (24-48) Monocytes (%) (Auto) 2 % (0-9) Eosinophils (%) (Auto) 0 % (0-3) Basophils (%) (Auto) 0 % (0-3) Neutrophils # (Auto) 41.0 x10^3/uL (1.8-7.7) Lymphocytes # (Auto) 1.7 x10^3/uL (1.0-4.8) Monocytes # (Auto) 0.9 x10^3/uL (0.0-1.1) Eosinophils # (Auto) 0.0 x10^3/uL (0.0-0.7) Basophils # (Auto) 0.1 x10^3/uL (0.0-0.2) Sodium Level 138 mmol/L (136-145) Potassium Level 4.2 mmol/L (3.5-5.1) Chloride Level 103 mmol/L (98-107) Carbon Dioxide Level 31 mmol/L (21-32) Anion Gap 4 (6-14) Blood Urea Nitrogen 20 mg/dL (7-20) Creatinine 0.5 mg/dL (0.6-1.0) Estimated GFR (Cockcroft-Gault) 132.2 BUN/Creatinine Ratio 40 (6-20) Glucose Level 153 mg/dL (70-99) Calcium Level 8.1 mg/dL (8.5-10.1) Total Bilirubin 1.0 mg/dL (0.2-1.0) Aspartate Amino Transf (AST/SGOT) 34 U/L (15-37) Alanine Aminotransferase (ALT/SGPT) 68 U/L (14-59) Alkaline Phosphatase 60 U/L (46-116) Total Protein 5.2 g/dL (6.4-8.2) Albumin 2.3 g/dL (3.4-5.0) Albumin/Globulin Ratio 0.8 (1.0-1.7) Test 11/13/19 06:03 11/13/19 08:00 11/13/19 11:36 11/13/19 16:58 Glucose (Fingerstick) 145 mg/dL (70-99) 135 mg/dL (70-99) 176 mg/dL (70-99) 214 mg/dL (70-99) Test 11/13/19 21:02 11/14/19 06:10 Glucose (Fingerstick) 192 mg/dL (70-99) White Blood Count 31.4 x10^3/uL (4.0-11.0) Red Blood Count 2.72 x10^6/uL (3.50-5.40) Hemoglobin 8.0 g/dL (12.0-15.5) Hematocrit 25.2 % (36.0-47.0) Mean Corpuscular Volume 92 fL (79-100) Mean Corpuscular Hemoglobin 30 pg (25-35) Mean Corpuscular Hemoglobin Concent 32 g/dL (31-37) Red Cell Distribution Width 18.2 % (11.5-14.5) Platelet Count 361 x10^3/uL (140-400) Sodium Level 136 mmol/L (136-145) Potassium Level 4.0 mmol/L (3.5-5.1) Chloride Level 101 mmol/L (98-107) Carbon Dioxide Level 30 mmol/L (21-32) Anion Gap 5 (6-14) Blood Urea Nitrogen 24 mg/dL (7-20) Creatinine 0.5 mg/dL (0.6-1.0) Estimated GFR (Cockcroft-Gault) 132.2 BUN/Creatinine Ratio 48 (6-20) Glucose Level 279 mg/dL (70-99) Calcium Level 7.8 mg/dL (8.5-10.1) Total Bilirubin 1.0 mg/dL (0.2-1.0) Aspartate Amino Transf (AST/SGOT) 23 U/L (15-37) Alanine Aminotransferase (ALT/SGPT) 56 U/L (14-59) Alkaline Phosphatase 58 U/L (46-116) Total Protein 5.0 g/dL (6.4-8.2) Albumin 2.2 g/dL (3.4-5.0) Albumin/Globulin Ratio 0.8 (1.0-1.7) Laboratory Tests Test 11/13/19 11:36 11/13/19 16:58 11/13/19 21:02 11/14/19 06:10 Glucose (Fingerstick) 176 mg/dL (70-99) 214 mg/dL (70-99) 192 mg/dL (70-99) White Blood Count 31.4 x10^3/uL (4.0-11.0) Red Blood Count 2.72 x10^6/uL (3.50-5.40) Hemoglobin 8.0 g/dL (12.0-15.5) Hematocrit 25.2 % (36.0-47.0) Mean Corpuscular Volume 92 fL (79-100) Mean Corpuscular Hemoglobin 30 pg (25-35) Mean Corpuscular Hemoglobin Concent 32 g/dL (31-37) Red Cell Distribution Width 18.2 % (11.5-14.5) Platelet Count 361 x10^3/uL (140-400) Sodium Level 136 mmol/L (136-145) Potassium Level 4.0 mmol/L (3.5-5.1) Chloride Level 101 mmol/L (98-107) Carbon Dioxide Level 30 mmol/L (21-32) Anion Gap 5 (6-14) Blood Urea Nitrogen 24 mg/dL (7-20) Creatinine 0.5 mg/dL (0.6-1.0) Estimated GFR (Cockcroft-Gault) 132.2 BUN/Creatinine Ratio 48 (6-20) Glucose Level 279 mg/dL (70-99) Calcium Level 7.8 mg/dL (8.5-10.1) Total Bilirubin 1.0 mg/dL (0.2-1.0) Aspartate Amino Transf (AST/SGOT) 23 U/L (15-37) Alanine Aminotransferase (ALT/SGPT) 56 U/L (14-59) Alkaline Phosphatase 58 U/L (46-116) Total Protein 5.0 g/dL (6.4-8.2) Albumin 2.2 g/dL (3.4-5.0) Albumin/Globulin Ratio 0.8 (1.0-1.7) Microbiology 11/10/19 Urine Culture - Preliminary, Resulted 11/10/19 Urine Culture Result 1 (СВЕТЛАНА) - Preliminary, Resulted 11/01/19 Blood Culture - Final, Complete NO GROWTH AFTER 5 DAYS Medications Current Medications Sodium Chloride 500 ml @ 500 mls/hr 1X ONCE IV Last administered on 11/01/19at 13:00; Start 11/01/19 at 13:00; Stop 11/01/19 at 13:59; Status DC Ondansetron HCl (Zofran) 4 mg 1X ONCE IV Last administered on 11/01/19at 13:26; Start 11/01/19 at 13:00; Stop 11/01/19 at 13:13; Status DC Hydromorphone HCl (Dilaudid) 0.5 mg 1X STAT IVP Last administered on 11/01/19at 13:26; Start 11/01/19 at 12:59; Stop 11/01/19 at 13:13; Status DC Iohexol (Omnipaque 300 Mg/ml) 75 ml 1X ONCE IV Last administered on 11/01/19at 14:08; Start 11/01/19 at 13:45; Stop 11/01/19 at 13:46; Status DC Info (CONTRAST GIVEN -- Rx MONITORING) 1 each PRN DAILY PRN MC SEE COMMENTS; Start 11/01/19 at 14:00; Stop 11/03/19 at 13:59; Status DC Hydromorphone HCl (Dilaudid) 0.5 mg 1X STAT IVP Last administered on 11/01/19at 16:53; Start 11/01/19 at 16:21; Stop 11/01/19 at 16:23; Status DC Sodium Chloride 1,000 ml @ 1,000 mls/hr 1X ONCE IV Last administered on 11/01at 16:30; Start 11/01/19 at 16:30; Stop 11/01/19 at 17:29; Status DC Sodium Chloride 500 ml @ 500 mls/hr 1X ONCE IV Last administered on 11/01/19at 16:30; Start 11/01/19 at 16:30; Stop 11/01/19 at 17:29; Status DC Albuterol Sulfate (Ventolin Neb Soln) 2.5 mg PRN Q6HRS PRN INH SHORTNESS OF BREATH; Start 11/01/19 at 16:30; Status Cancel Alprazolam (Xanax) 0.25 mg PRN TID PRN PO anxiety; Start 11/01/19 at 16:30; Stop 11/01/19 at 17:11; Status DC Amlodipine Besylate (Norvasc) 5 mg DAILY PO Last administered on 11/11/19at 09:19; Start 11/02/19 at 09:00 Cyclosporine (Restasis) 1 drop BID OU Last administered on 11/14/19at 09:46; Start 11/01/19 at 21:00 Fluticasone Propionate (Flonase) 2 spray DAILY NS Last administered on 11/11/19at 08:19; Start 11/02/19 at 09:00 Lactobacillus Rhamnosus (Culturelle) 1 cap BID PO Last administered on 11/09/19 08:28; Start 11/01/19 at 21:00; Stop 11/09/19 at 16:57; Status DC Lidocaine (Lidoderm) 1 patch DAILY TP ; Start 11/02/19 at 09:00; Stop 11/01/19 at 20:34; Status DC Metoprolol Succinate (Toprol Xl) 100 mg HS PO Last administered on 11/13/19 21:04; Start 11/01/19 at 21:00 Nystatin (Nystop) 1 raza BID TP Last administered on 11/13/19 21:06; Start 11/01/19 at 21:00 Pantoprazole Sodium (Protonix) 40 mg DAILYAC PO Last administered on 11/09/19 08:28; Start 11/02/19 at 07:30; Stop 11/09/19 at 16:54; Status DC Senna/Docusate Sodium (Senna Plus) 1 tab BID PO Last administered on 11/14/19 08:19; Start 11/01/19 at 21:00 Sucralfate (Carafate) 1 gm TIDAC PO Last administered on 11/14/19 08:19; Start 11/01/19 at 17:30 Tramadol HCl (Ultram) 50 mg PRN Q8HRS PRN PO PAIN; Start 11/01/19 at 16:30; Stop 11/01/19 at 19:43; Status DC Insulin Glargine (Lantus Syringe) 30 unit QHS SQ Last administered on 11/06/19at 21:16; Start 11/01/19 at 21:00; Stop 11/07/19 at 15:56; Status DC Ondansetron HCl (Zofran Odt) 8 mg PRN Q8HRS PRN PO NAUSEA/VOMITING Last administered on 11/07/19at 13:05; Start 11/01/19 at 17:15 Polyethylene Glycol (miraLAX PACKET) 17 gm PRN DAILY PRN PO CONSTIPATION, 1ST CHOICE Last administered on 11/11/19 08:18; Start 11/01/19 at 17:11 Atorvastatin Calcium (Lipitor) 80 mg QHS PO Last administered on 11/13/19 21:04; Start 11/01/19 at 21:00 Insulin Human Lispro (HumaLOG) 0-9 UNITS TIDAC SQ Last administered on 11/07/19 12:20; Start 11/01/19 at 16:30; Stop 11/07/19 at 15:56; Status DC Dextrose (Dextrose 50%-Water Syringe) 12.5 gm PRN Q15MIN PRN IV SEE COMMENTS; Start 11/01/19 at 16:30; Stop 11/12/19 at 15:36; Status DC Ondansetron HCl (Zofran) 4 mg PRN Q8HRS PRN IV NAUSEA/VOMITING; Start 11/01/19 at 16:30; Stop 11/02/19 at 16:29; Status DC Alprazolam (Xanax) 0.25 mg PRN TID PRN PO anxiety Last administered on 11/13/19 10:44; Start 11/01/19 at 17:11 Miscellaneous (Lidoderm Patch Removal) 1 ea QHS MC ; Start 11/01/19 at 21:00; Stop 11/01/19 at 20:34; Status DC Ceftriaxone Sodium (Rocephin) 1 gm QHS IVP Last administered on 11/13/19 21:08; Start 11/01/19 at 18:45 Tramadol HCl (Ultram) 50 mg PRN Q8HRS PRN PO MILD PAIN 1-3 Last administered on 11/05/19at 22:04; Start 11/01/19 at 19:45 Hydromorphone HCl (Dilaudid) 1 mg PRN Q4HRS PRN IV SEVERE PAIN Last administered on 11/14/19 09:47; Start 11/01/19 at 20:15 Lidocaine (Lidoderm) 1 patch QHS TP Last administered on 11/14/19 08:19; Start 11/01/19 at 21:00 Miscellaneous (Lidoderm Patch Removal) 1 ea DAILY MC Last administered on 11/14/19 09:00; Start 11/02/19 at 09:00 Albumin Human 500 ml @ 125 mls/hr 1X ONCE IV ; Start 11/02/19 at 02:00; Stop 11/02/19 at 05:59; Status Cancel Acetaminophen (Tylenol) 650 mg 1X PRN PRN PO PRE-TRANSFUSION; Start 11/02/19 at 06:45; Stop 11/03/19 at 14:16; Status DC Diphenhydramine HCl (Benadryl Oral Elixir) 12.5 mg 1X PRN PRN PO PRE- TRANSFUSION; Start 11/02/19 at 06:45; Stop 11/03/19 at 14:16; Status DC Diphenhydramine HCl (Benadryl) 25 mg PRN 1X PRN PO PRE-TRANSFUSION; Start 10/21 02/06 at 06:45; Stop 11/03/19 at 14:16; Status DC Lactulose (LACTULOSE 300ML for RECTAL) 200 gm Q6HRS MO Last administered on 11/02/19at 18:00; Start 11/02/19 at 18:00; Stop 11/04/19 at 14:44; Status DC Sodium Chloride 1,000 ml @ 100 mls/hr Q10H IV Last administered on 11/13/19at 15:30; Start 11/02/19 at 12:00 Lactulose (Lactulose) 20 gm PRN DAILY PRN PO CONSTIPATION, 2ND CHOICE; Start 11/04/19 at 14:45 Oxycodone HCl (Roxicodone) 5 mg PRN Q6HRS PRN PO MODERATE TO SEVERE PAIN Last administered on 11/14/19at 04:42; Start 11/04/19 at 14:45 Lidocaine HCl (Buffered Lidocaine 1%) 3 ml STK-MED ONCE .ROUTE ; Start 11/05/19 at 08:13; Stop 11/05/19 at 08:13; Status DC Lidocaine HCl (Buffered Lidocaine 1%) 3 ml STK-MED ONCE .ROUTE ; Start 11/05/19 at 08:14; Stop 11/05/19 at 08:14; Status DC Midazolam HCl (Versed) 2 mg STK-MED ONCE .ROUTE ; Start 11/05/19 at 08:40; Stop 11/05/19 at 08:40; Status DC Fentanyl Citrate (Fentanyl 2ml Vial) 100 mcg STK-MED ONCE .ROUTE ; Start 11/05/19 at 08:40; Stop 11/05/19 at 08:41; Status DC Lidocaine HCl (Buffered Lidocaine 1%) 3 ml 1X ONCE IJ Last administered on 11/05/19at 08:45; Start 11/05/19 at 08:45; Stop 11/05/19 at 08:50; Status DC Midazolam HCl (Versed) 2 mg 1X ONCE IV Last administered on 11/05/19at 08:45; Start 11/05/19 at 08:45; Stop 11/05/19 at 08:50; Status DC Fentanyl Citrate (Fentanyl 2ml Vial) 100 mcg 1X ONCE IV Last administered on 11/05/19at 08:45; Start 11/05/19 at 08:45; Stop 11/05/19 at 08:50; Status DC Dexamethasone Sodium Phosphate (Decadron) 4 mg Q6HRS IVP Last administered on 11/14/19at 06:06; Start 11/06/19 at 09:00 Insulin Glargine (Lantus Syringe) 40 unit QHS SQ Last administered on 11/13/19at 21:01; Start 11/07/19 at 21:00 Insulin Human Lispro (HumaLOG) 10 units TIDAC SQ Last administered on 11/14/19at 08:21; Start 11/07/19 at 16:30 Insulin Human Lispro (HumaLOG) 0-9 UNITS TIDWMEALS SQ Last administered on 11/11/19at 17:13; Start 11/07/19 at 17:00; Stop 11/12/19 at 15:37; Status DC Insulin Human Lispro (HumaLOG) 19 units 1X ONCE SQ Last administered on 11/09/19at 12:41; Start 11/09/19 at 12:15; Stop 11/09/19 at 12:16; Status DC Insulin Human Lispro (HumaLOG) 5 units 1X ONCE SQ Last administered on 11/09/19at 13:52; Start 11/09/19 at 13:30; Stop 11/09/19 at 13:31; Status DC Non-Formulary Medication 1 ea DAILY PO ; Start 11/09/19 at 16:30; Status Cancel Ondansetron HCl (Zofran) 4 mg PRN Q6HRS PRN IV NAUSEA/VOMITING; Start 11/12/19 at 07:00; Stop 11/12/19 at 19:56; Status DC Fentanyl Citrate (Fentanyl 2ml Vial) 25 mcg PRN Q5MIN PRN IV MILD PAIN 1-3; Start 11/12/19 at 07:00; Stop 11/12/19 at 19:56; Status DC Fentanyl Citrate (Fentanyl 2ml Vial) 50 mcg PRN Q5MIN PRN IV MODERATE TO SEVERE PAIN; Start 11/12/19 at 07:00; Stop 11/12/19 at 19:56; Status DC Morphine Sulfate (Morphine Sulfate) 1 mg PRN Q10MIN PRN IV SEVERE PAIN 7-10; Start 11/12/19 at 07:00; Stop 11/09/19 at 17:30; Status DC Ringer's Solution 1,000 ml @ 30 mls/hr Q24H IV Last administered on 11/12/19at 10:00; Start 11/12/19 at 07:00; Stop 11/12/19 at 18:59; Status DC Lidocaine HCl (Xylocaine-Mpf 1% 2ml Vial) 2 ml PRN 1X PRN ID PRIOR TO IV START; Start 11/12/19 at 07:00; Stop 11/12/19 at 19:56; Status DC Hydromorphone HCl (Dilaudid) 0.5 mg PRN Q10MIN PRN IV SEV PAIN, Second choice; Start 11/12/19 at 07:00; Stop 11/12/19 at 19:56; Status DC Prochlorperazine Edisylate (Compazine) 5 mg PACU PRN PRN IV NAUSEA, MRX1; Start 11/12/19 at 07:00; Stop 11/12/19 at 19:56; Status DC Pantoprazole Sodium (Protonix) 40 mg DAILYAC PO Last administered on 11/14/19at 08:19; Start 11/09/19 at 18:30 Levetiracetam (Keppra) 500 mg BID PO Last administered on 11/14/19at 08:19; Start 11/09/19 at 21:00 Non-Formulary Medication 1 ea DAILY PO Last administered on 11/13/19at 09:00; Start 11/12/19 at 09:00 Insulin Human Lispro (HumaLOG) 8 units 1X ONCE SQ Last administered on 11/10/19at 12:32; Start 11/10/19 at 12:15; Stop 11/10/19 at 12:16; Status DC Propofol 20 ml @ As Directed STK-MED ONCE IV ; Start 11/12/19 at 07:48; Stop 11/12/19 at 07:48; Status DC Dexamethasone Sodium Phosphate (Decadron) 20 mg STK-MED ONCE .ROUTE ; Start 11/12/19 at 07:48; Stop 11/12/19 at 07:48; Status DC Lidocaine HCl (Lidocaine Pf 2% Vial) 5 ml STK-MED ONCE .ROUTE ; Start 11/12/19 at 07:48; Stop 11/12/19 at 07:48; Status DC Ondansetron HCl (Zofran) 4 mg STK-MED ONCE .ROUTE ; Start 11/12/19 at 07:48; Stop 11/12/19 at 07:48; Status DC Phenylephrine HCl (Tony-Synephrine Inj) 10 mg STK-MED ONCE .ROUTE ; Start 11/12/19 at 07:48; Stop 11/12/19 at 07:48; Status DC Propofol 50 ml @ As Directed STK-MED ONCE IV ; Start 11/12/19 at 07:48; Stop 11/12/19 at 07:48; Status DC Rocuronium Arnold (Zemuron) 50 mg STK-MED ONCE .ROUTE ; Start 11/12/19 at 07:48; Stop 11/12/19 at 07:48; Status DC Remifentanil HCl (Ultiva) 2 mg STK-MED ONCE IV ; Start 11/12/19 at 07:48; Stop 11/12/19 at 07:49; Status DC Sodium Chloride (SODIUM CHLORIDE 20ml) 20 ml STK-MED ONCE IJ ; Start 11/12/19 at 07:49; Stop 11/12/19 at 07:49; Status DC Multi-Ingred Cream/Lotion/Oil/ Oint (Artificial Tears Eye Ointment) 7 raza STK- MED ONCE .ROUTE ; Start 11/12/19 at 07:49; Stop 11/12/19 at 07:49; Status DC Bacitracin 34384 unit/Sodium Chloride 1,000 ml @ 1,000 mls/hr 1X ONCE IRR Last administered on 11/12/19at 11:26; Start 11/12/19 at 07:57; Stop 11/12/19 at 08:56; Status DC Sodium Chloride (SODIUM CHLORIDE 20ml) 20 ml STK-MED ONCE IJ ; Start 11/12/19 at 07:57; Stop 11/12/19 at 07:57; Status DC Gelatin (Gelfoam Size 100) 1 each STK-MED ONCE .ROUTE Last administered on 11/12/19 11:26; Start 11/12/19 at 07:59; Stop 11/12/19 at 07:59; Status DC Cellulose (Surgicel Hemostat 4x8) 1 each STK-MED ONCE .ROUTE Last administered on 11/12/19at 12:01; Start 11/12/19 at 07:59; Stop 11/12/19 at 08:00; Status DC Lidocaine/ Epinephrine (LIDOCAINE 1%-EPI 1:100,000 Multi-Dose) 20 ml STK-MED ONCE .ROUTE Last administered on 11/12/19at 11:26; Start 11/12/19 at 07:59; Stop 11/12/19 at 08:00; Status DC Thrombin 20,000 unit STK-MED ONCE TP Last administered on 11/12/19 11:26; Start 11/12/19 at 08:00; Stop 11/12/19 at 08:00; Status DC Bacitracin (Bacitracin Zinc Oint Pkt) 1 pkt STK-MED ONCE TP ; Start 11/12/19 at 08:00; Stop 11/12/19 at 08:00; Status DC Propofol 100 ml @ As Directed STK-MED ONCE IV ; Start 11/12/19 at 08:02; Stop 11/12/19 at 08:02; Status DC Insulin Human Lispro (HumaLOG) 11 units 1X ONCE SQ Last administered on 11/12/19at 08:15; Start 11/12/19 at 08:15; Stop 11/12/19 at 08:16; Status DC Gadoterate Meglumine (Dotarem) 24.8 ml 1X ONCE IVP Last administered on at 08:15; Start 11/12/19 at 08:15; Stop 11/12/19 at 08:16; Status DC Insulin Human Regular 100 unit/ Sodium Chloride 101 ml @ 12.484 mls/ hr ONCE ONCE IV ; Start 11/12/19 at 08:15; Stop 11/12/19 at 16:20; Status DC Desflurane (Suprane) 90 ml STK-MED ONCE IH ; Start 11/12/19 at 08:11; Stop 11/12/19 at 08:11; Status DC Fentanyl Citrate (Fentanyl 2ml Vial) 100 mcg STK-MED ONCE .ROUTE ; Start 11/12/19 at 08:20; Stop 11/12/19 at 08:20; Status DC Midazolam HCl (Versed) 2 mg STK-MED ONCE .ROUTE ; Start 11/12/19 at 08:20; Stop 11/12/19 at 08:20; Status DC Rocuronium Arnold (Zemuron) 50 mg STK-MED ONCE .ROUTE ; Start 11/12/19 at 09:11; Stop 11/12/19 at 09:12; Status DC Mannitol (Mannitol) 12.5 g STK-MED ONCE .ROUTE ; Start 11/12/19 at 09:22; Stop 11/12/19 at 09:23; Status DC Propofol 100 ml @ As Directed STK-MED ONCE IV ; Start 11/12/19 at 09:22; Stop 11/12/19 at 09:23; Status DC Lidocaine HCl (Xylocaine-Mpf 1% 2ml Vial) 2 ml STK-MED ONCE .ROUTE ; Start 11/12/19 at 09:24; Stop 11/12/19 at 09:24; Status DC Cefazolin Sodium 3 gm/Dextrose 100 ml @ 200 mls/hr 1X PREOP ONCE IV Last administered on 11/12/19at 10:53; Start 11/12/19 at 10:30; Stop 11/12/19 at 10:59; Status DC Gelatin (Gelfoam Size 12-7mm) 1 each STK-MED ONCE .ROUTE Last administered on 11/12/19at 12:03; Start 11/12/19 at 11:59; Stop 11/12/19 at 12:01; Status DC Thrombin 20,000 unit STK-MED ONCE TP Last administered on 11/12/19at 12:04; Start 11/12/19 at 12:00; Stop 11/12/19 at 12:01; Status DC Gelatin (Gelfoam Size 100) 1 each STK-MED ONCE .ROUTE Last administered on 11/12/19at 12:25; Start 11/12/19 at 12:26; Stop 11/12/19 at 12:26; Status DC Gelatin (Gelfoam Size 12-7mm) 1 each STK-MED ONCE .ROUTE Last administered on 11/12/19at 13:35; Start 11/12/19 at 13:32; Stop 11/12/19 at 13:33; Status DC Thrombin 20,000 unit STK-MED ONCE TP Last administered on 11/12/19at 13:35; Start 11/12/19 at 13:32; Stop 11/12/19 at 13:33; Status DC Gelatin (Gelfoam Size 12-7mm) 1 each STK-MED ONCE .ROUTE Last administered on 11/12/19at 13:55; Start 11/12/19 at 13:55; Stop 11/12/19 at 13:55; Status DC Gelatin (Gelfoam Size 12-7mm) 1 each STK-MED ONCE .ROUTE Last administered on 11/12/19at 13:59; Start 11/12/19 at 13:59; Stop 11/12/19 at 13:59; Status DC Labetalol HCl (Normodyne Iv Push) 5 mg PRN Q15MIN PRN IVP HYPERTENSION; Start 11/12/19 at 15:15 Nicardipine HCl 50 mg/Sodium Chloride 250 ml @ 25 mls/hr TITRATE PRN IV SBP 90-140; Start 11/12/19 at 15:15 Hydralazine HCl (Apresoline Inj) 5 mg PRN Q6HRS PRN IVP TO KEEP SBP<140mmHg; Start 11/12/19 at 15:15 Al Hydroxide/Mg Hydroxide (Mylanta Plus Xs) 30 ml PRN Q3HRS PRN PO HEARTBURN / GAS; Start 11/12/19 at 15:15 Calcium Carbonate/ Glycine (Tums) 500 mg PRN Q3HRS PRN PO INDIGESTION; Start 11/12/19 at 15:15 Diphenhydramine HCl (Benadryl) 25 mg PRN Q6HRS PRN PO ITCHING; Start 11/12/19 at 15:15 Diphenhydramine HCl (Benadryl) 25 mg PRN Q6HRS PRN IV ITCHING; Start 11/12/19 at 15:15 Sodium Chloride (Normal Saline Flush) 3 ml QSHIFT PRN IV AFTER MEDS AND BLOOD DRAWS; Start 11/12/19 at 15:15 Insulin Human Lispro (HumaLOG) 0-5 UNITS TIDWMEALS SQ Last administered on 11/14/19at 08:20; Start 11/12/19 at 17:00 Dextrose (Dextrose 50%-Water Syringe) 12.5 gm PRN Q15MIN PRN IV SEE COMMENTS; Start 11/12/19 at 15:15 Dextrose (Iv Dextrose 5%) 250 ml PRN Q15MIN PRN IV SEE COMMENTS; Start 11/12/19 at 15:15 Hydromorphone HCl (Dilaudid) 0.2 mg PRN Q1HR PRN IV MODERATE PAIN; Start 11/12/19 at 15:15 Insulin Human Lispro (HumaLOG VIAL for OP,RR ONLY) 0-10 units PRN Q1HR PRN SQ PER PROTOCOL Last administered on 11/12/19at 15:50; Start 11/12/19 at 16:00; Stop 11/12/19 at 19:54; Status DC Insulin Human Lispro (HumaLOG VIAL for OP,RR ONLY) 4 unit 1X ONCE SQ ; Start 11/12/19 at 16:45; Stop 11/12/19 at 16:46; Status DC Ferrous Sulfate (Iron Oral Solution) 300 mg QD PO Last administered on 11/13/19at 10:46; Start 11/13/19 at 10:00 Gadoterate Meglumine (Dotarem) 10 ml 1X ONCE IVP Last administered on 11/13/19at 15:00; Start 11/13/19 at 14:45; Stop 11/13/19 at 14:48; Status DC Gadoterate Meglumine (Dotarem) 15 ml 1X ONCE IVP Last administered on 11/13/19at 15:00; Start 11/13/19 at 14:45; Stop 11/13/19 at 14:48; Status DC Active Scripts Active Enoxaparin Sodium 120 Mg/0.8 Ml Disp.syrin 120 Mg SQ Q12HR 28 Days Dexamethasone 4 Mg Tablet 4 Mg PO BID 14 Days Culturelle (Lactobacillus Rhamnosus Gg) 1 Each Cap.sprink 1 Cap PO BID 30 Days Amlodipine Besylate 5 Mg Tablet 5 Mg PO DAILY 30 Days Cefdinir 300 Mg Capsule 300 Mg PO BID 10 Days Reported Cymbalta (Duloxetine Hcl) 60 Mg Capsule.dr 1 Cap PO BID Lyrica (Pregabalin) 150 Mg Capsule 1 Cap PO BID Novolog (Insulin Aspart) 100 Unit/1 Ml Cartridge 10-45 Unit SQ QIDACHS Levemir (Insulin Detemir) 100 Unit/1 Ml Vial 30 Unit SQ HS Linzess (Linaclotide) 145 Mcg Capsule 145 Mcg PO PRN PRN Crestor (Rosuvastatin Calcium) 40 Mg Tablet 0.5 Tab PO DAILY Polyethylene Glycol 3350 2,500 Gm Powder 17 Gm PO PRN PRN Xanax (Alprazolam) 1 Mg Tablet 1 Tab PO TID Restasis (Cyclosporine) 1 Each Droperette 1 Drop EACHEYE BID Proair Hfa Inhaler (Albuterol Sulfate) 8.5 Gm Hfa.aer.ad 1 Puff INH PRN Q6HRS PRN Tramadol Hcl 50 Mg Tablet 1 Tab PO PRN Q8HRS PRN Ondansetron Hcl 4 Mg Tablet 2 Tab PO PRN Q8HRS PRN Nystatin 15 Gm Powder 1 [place]aza TP BID Lidocaine PATCH (Lidocaine) 1 Each Adh..patch 1 Each TP DAILY Fluticasone Propionate Nasal [place] (Fluticasone Propionate) 16 Gm [place].susp 2 [place] NS DAILY Percocet 5-325 Mg Tablet (Oxycodone/Acetaminophen) 1 Each Tablet 1-2 Tab PO Q4-6HRS PRN LAST DOSE AT NEXT DOSE Senna-Docusate Sodium Tablet (Sennosides/Docusate Sodium) 1 Each Tablet 1 Each PO BID LAST DOSE THIS AM NEXT DOSE TONIGHT Robaxin-750 (Methocarbamol) 750 Mg Tablet 1 Tab PO TID LAST DOSE AT 1400 (2PM) MAY HAVE THE NEXT DOSE AT 10 PM Protonix (Pantoprazole Sodium) 40 Mg Tablet.dr 40 Mg PO DAILY LST DOSE THIS AM NEXT DOSE TOMORROW AM Carafate (Sucralfate) 1 Gm Tablet 1 Tab PO TID Meds not given this hospital admission. May resume home medications as approved by Physician. MAY TAKE WHEN AVAILABLE Xarelto (Rivaroxaban) 15 Mg Tablet 15 Mg PO DAILY Meds not given this hospital admission. May resume home medications as approved by Physician. MAY RESUME WHEN AVAILABLE Metoprolol Succinate ( Xl ) (Metoprolol Succinate) 100 Mg Tab.er.24h 100 Mg PO HS LAST DOSE THIS AM NEXT DOSE TOMORROW AM Vitals/I & O Vital Sign - Last 24 Hours 11/13/19 11/13/19 11/13/19 11/13/19 11:42 12:00 12:00 12:47 Temp 98.6 98.6 Pulse 86 Resp 21 21 16 B/P (MAP) 121/82 (95) Pulse Ox 98 98 97 O2 Delivery Nasal Cannula Nasal Cannula Nasal Cannula Nasal Cannula O2 Flow Rate 3.0 3.0 3.0 3.0 11/13/19 11/13/19 11/13/19 11/13/19 13:00 13:17 14:00 15:00 Pulse 80 96 82 Resp 20 20 15 16 B/P (MAP) 120/70 (87) 112/66 (81) 104/57 (73) Pulse Ox 98 98 97 98 O2 Delivery Nasal Cannula Nasal Cannula Nasal Cannula Nasal Cannula O2 Flow Rate 3.0 3.0 3.0 3.0 11/13/19 11/13/19 11/13/19 11/13/19 16:00 16:00 16:53 16:54 Temp 98.5 98.5 Pulse 92 Resp 16 16 16 B/P (MAP) 106/58 (74) Pulse Ox 99 99 99 O2 Delivery Nasal Cannula Nasal Cannula Nasal Cannula Nasal Cannula O2 Flow Rate 3.0 3.0 3.0 3.0 11/13/19 11/13/19 11/13/19 11/13/19 17:00 17:23 18:00 19:54 Pulse 90 94 104 Resp 13 18 15 20 B/P (MAP) 114/67 (83) 120/67 (84) 113/60 (77) Pulse Ox 100 100 100 100 O2 Delivery Nasal Cannula Nasal Cannula Nasal Cannula Nasal Cannula O2 Flow Rate 3.0 3.0 3.0 3.0 11/13/19 11/13/19 11/13/19 11/13/19 20:00 20:00 21:00 21:04 Temp 98.6 98.6 Pulse 90 98 90 Resp 18 18 B/P (MAP) 119/67 (84) 103/56 (72) 119/67 Pulse Ox 100 100 O2 Delivery Nasal Cannula Nasal Cannula Nasal Cannula O2 Flow Rate 3.0 3.0 3.0 11/13/19 11/13/19 11/13/19 11/13/19 21:05 22:00 23:00 23:00 Pulse 80 Resp 21 B/P (MAP) 99/60 (73) Pulse Ox 100 100 100 100 O2 Delivery Nasal Cannula Nasal Cannula Nasal Cannula Nasal Cannula O2 Flow Rate 3.0 3.0 3.0 3.0 11/13/19 11/13/19 11/13/19 11/14/19 23:00 23:59 23:59 00:04 Temp 98.7 98.7 Pulse 80 81 Resp 21 21 B/P (MAP) 101/57 (72) 102/57 (72) Pulse Ox 98 98 100 O2 Delivery Nasal Cannula Nasal Cannula Nasal Cannula Nasal Cannula O2 Flow Rate 3.0 3.0 3.0 3.0 11/14/19 11/14/19 11/14/19 11/14/19 01:00 01:27 02:00 03:00 Pulse 77 71 70 Resp 18 16 14 B/P (MAP) 101/53 (69) 103/63 (76) 95/57 (70) Pulse Ox 98 100 98 98 O2 Delivery Nasal Cannula Nasal Cannula Nasal Cannula Nasal Cannula O2 Flow Rate 3.0 3.0 3.0 3.0 11/14/19 11/14/19 11/14/19 11/14/19 03:13 03:13 04:00 04:00 Temp 98.5 98.5 Pulse 74 Resp 12 B/P (MAP) 93/51 (65) Pulse Ox 98 98 98 O2 Delivery Nasal Cannula Nasal Cannula Nasal Cannula Nasal Cannula O2 Flow Rate 3.0 3.0 3.0 3.0 11/14/19 11/14/19 11/14/19 11/14/19 04:42 05:00 06:06 07:00 Temp 97.9 97.9 Pulse 76 73 71 Resp 12 12 16 B/P (MAP) 95/61 (72) 92/49 (63) 101/53 (69) Pulse Ox 98 98 98 100 O2 Delivery Nasal Cannula Nasal Cannula Nasal Cannula Nasal Cannula O2 Flow Rate 3.0 3.0 3.0 3.0 11/14/19 11/14/19 11/14/19 11/14/19 07:32 08:00 08:00 09:00 Pulse 70 78 Resp 16 18 16 B/P (MAP) 97/59 (72) 96/59 (71) Pulse Ox 95 92 O2 Delivery Nasal Cannula Nasal Cannula Nasal Cannula Nasal Cannula O2 Flow Rate 2.0 3.0 3.0 3.0 11/14/19 11/14/19 09:47 10:00 Pulse 77 Resp 22 14 B/P (MAP) 101/56 (71) Pulse Ox 94 O2 Delivery Nasal Cannula O2 Flow Rate 3.0 Intake and Output 11/13/19 11/13/19 11/14/19 15:00 23:00 07:00 Intake Total 240 ml 120 ml 1082 ml Output Total 1325 ml 1125 ml 1075 ml Balance -1085 ml -1005 ml 7 ml Nutrition Consultation Dietary Evaluation: Recommendations by RD: Dietary education by RD, Increase Calorie Intake, Protein supplementation Comments: REC continue ADA/cardiac diet ,glucerna Expected Outcomes/Goals: PO intake to meet >75% est needs- met at times, goal ongoing Interpretation of weight loss: >5% in 1 month Malnutrition Findings: Food and Nutrition Intake (Sev: <50% est energy req 5days Weight Status: Morbidly Obese BINH WELCH MD Nov 14, 2019 11:16
--- NOTE | 2019-11-14 11:25 | NUR ---
[facility] held today per Dr. Clark verbal instructions and Dr. Yousif's progress note; plan is to start on .
[2019-11-14] MEDS: FERROUS SULFATE ORAL 300 MG/5 ML SOLUTION. PO SCH (11:52)
--- NOTE | 2019-11-14 12:27 | PDOC ---
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 On her way to Oncology day of admit her left leg gave out on her and she felt like she was floating. She's been having abdominal bruising and pain to the right side of her abdomen with swelling and the bruise feels so tense that she thinks an alien or baby is going to burst out. CT abdomen shows large right subcutaneous hematoma with active bleeding. She also started having intermittent nosebleeds day prior to admit and again day of admission. EKG shows a sinus rhythm at 94 bpm, normal axis, QTC 466 ms, no ST elevation. Labs concerning for WBC of 81. 11/02: Hb 6.6 today. ordered 2u PRBC. She is still a little confused, better than prior admit. She was feeling uncoordinated and notes her headache she has been having. Reports her pain is 10. 11/03: Overnight had BM, pain better controlled. Hb 7 now s/p 2u PRBC. WBC 45. Still a bit confused. No further epistaxis. No CP or SOB. 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 Plan for craniotomy today. heme onc following large belly bruise stable HGb 8 after BT bateman peripheral line eating ok, sleeping ok PLAN: cont decadron IV EEG Close neuro checks Decadron 4 mg IV q6h. Continue Lipitor HS. Treat medical diseases. Consulted Neurosurgery consult Oncology.. -plan for craniotomy Monday 11/12 ICU after surgery 36 min pt exam, chart revieqw, > 50% of time spent with exam, chart review, pt care coordination 11/13/19 Patient seen and examined in the ICU She has a large cranial incision with clean dry intact dressing Now not able to move her right side too much but is able to wiggle her right toes Has an art line in Discussed with RN Chart reviewed She is critically ill 11/14/19 Patient seen and examined in the intensive care unit I spoke with her neurosurgeon Dr. Clark Patient is still quite ill She is on IV steroids for cerebral edema She can't move her right side Chart reviewed Discussed with RN Vitals/I&O Vitals/I&O: Vital Signs Date Time Temp Pulse Resp B/P (MAP) Pulse Ox O2 Delivery O2 Flow Rate FiO2 11/14/19 11:24 Room Air 11/14/19 11:00 94 14 103/51 (68) 97 11/14/19 10:00 3.0 11/14/19 07:00 97.9 97.9 I & O 11/13/19 11/13/19 11/14/19 15:00 23:00 07:00 Intake Total 240 ml 120 ml 1082 ml Output Total 1325 ml 1125 ml 1075 ml Balance -1085 ml -1005 ml 7 ml Physical Exam General: Cooperative, mild distress, Other (extremely weak and depressed) Heart: Regular rate, Normal S1, Normal S2 Lungs: Wheezing Abdomen: Soft, Other (eechymosis improving) Extremities: No clubbing, No cyanosis, No edema, Normal pulses, No tenderness/swelling Skin: No rashes, No breakdown, Other (Ecchymosis on right abdomen) Labs Labs: Laboratory Tests Test 11/13/19 16:58 11/13/19 21:02 11/14/19 06:10 11/14/19 11:46 Glucose (Fingerstick) 214 mg/dL (70-99) 192 mg/dL (70-99) 263 mg/dL (70-99) White Blood Count 31.4 x10^3/uL (4.0-11.0) Red Blood Count 2.72 x10^6/uL (3.50-5.40) Hemoglobin 8.0 g/dL (12.0-15.5) Hematocrit 25.2 % (36.0-47.0) Mean Corpuscular Volume 92 fL (79-100) Mean Corpuscular Hemoglobin 30 pg (25-35) Mean Corpuscular Hemoglobin Concent 32 g/dL (31-37) Red Cell Distribution Width 18.2 % (11.5-14.5) Platelet Count 361 x10^3/uL (140-400) Sodium Level 136 mmol/L (136-145) Potassium Level 4.0 mmol/L (3.5-5.1) Chloride Level 101 mmol/L (98-107) Carbon Dioxide Level 30 mmol/L (21-32) Anion Gap 5 (6-14) Blood Urea Nitrogen 24 mg/dL (7-20) Creatinine 0.5 mg/dL (0.6-1.0) Estimated GFR (Cockcroft-Gault) 132.2 BUN/Creatinine Ratio 48 (6-20) Glucose Level 279 mg/dL (70-99) Calcium Level 7.8 mg/dL (8.5-10.1) Total Bilirubin 1.0 mg/dL (0.2-1.0) Aspartate Amino Transf (AST/SGOT) 23 U/L (15-37) Alanine Aminotransferase (ALT/SGPT) 56 U/L (14-59) Alkaline Phosphatase 58 U/L (46-116) Total Protein 5.0 g/dL (6.4-8.2) Albumin 2.2 g/dL (3.4-5.0) Albumin/Globulin Ratio 0.8 (1.0-1.7) Assessment and Plan Assessmemt and Plan Problems Medical Problems: (1) Abdominal hemorrhage Status: Acute (2) Generalized weakness Status: Acute (3) Lactic acidosis Status: Acute (4) Leukocytosis Status: Acute Postop day 2 craniotomy with meningioma resection Chronic Myelogenous Leukemia - s/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 Medications: Current Medications Medications (Trade) Dose Ordered Sig/Nikki Route PRN Reason Start Time Stop Time Status Last Admin Dose Admin Gadoterate Meglumine (Dotarem) 10 ml 1X ONCE IVP 11/13/19 14:45 11/13/19 14:48 DC 12/24/19 15:00 Gadoterate Meglumine (Dotarem) 15 ml 1X ONCE IVP 11/13/19 14:45 11/13/19 14:48 DC 11/13/19 15:00 VANGIE MAC III DO Nov 14, 2019 12:27
[2019-11-14] MEDS: ALPRAZolam 0.25 MG TABLET PO PRN ×2 (14:02→21:45)
[2019-11-14] MEDS: traMADol 50 MG TABLET PO PRN (15:29)
[2019-11-14] MEDS: ONDANSETRON ODT 4 MG TAB.RAPDIS. PO PRN (17:23)
[2019-11-14] MEDS: cefTRIAXone IV Push 1 GM VIAL. IVP SCH (21:44)
[2019-11-14] MEDS: ATORVASTATIN CALCIUM 40 MG TABLET. PO SCH (21:44)
[2019-11-14] MEDS: METOPROLOL SUCC 24HR ER 100 MG TAB.ER.24H. PO SCH (21:45)
[2019-11-14] MEDS: INSULIN GLARGINE SYRINGE. SQ SCH (21:56)
[2019-11-15] MEDS: DEXAMETHASONE SOD PHOS 4 MG/ML VIAL IVP SCH ×5 (00:35→23:32)
[2019-11-15] MEDS: HYDROmorphone 2 MG/ML VIAL IV PRN ×6 (02:16→23:32)
[2019-11-15 03:00] VITALS: BP 109/60
[2019-11-15] MEDS: oxyCODONE IR 5 MG TABLET PO PRN ×2 (05:30→14:07)
[2019-11-15 07:00] VITALS: BP 106/63
[2019-11-15] MEDS: INSULIN LISPRO 300 UNITS/3 ML VIAL. SQ SCH ×6 (08:15→17:09)
[2019-11-15] MEDS: amLODIPine BESYLATE 5 MG TABLET PO SCH (09:00)
[2019-11-15] MEDS: FLUTICASONE 50MCG/NASAL SPRAY 16GM BOTTLE. NS SCH (09:00)
[2019-11-15] MEDS ORDERED: INSULIN GLARGINE SYRINGE. SQ SCH (09:00)
[2019-11-15] MEDS: PATCH REMOVAL. MC SCH (09:00)
[2019-11-15] MEDS: cycloSPORINE 0.05% OPHTH DROPERETTE. OU SCH ×2 (09:09→21:22)
[2019-11-15] MEDS: NYSTATIN TOPICAL POWDER 15GM BOTTLE. TP SCH ×2 (09:10→23:33)
[2019-11-15] MEDS: levETIRAcetam 500 MG TABLET PO SCH ×2 (09:11→21:23)
[2019-11-15] MEDS: SENNOSIDES/DOCUSATE 8.6/50MG TABLET. PO SCH ×2 (09:11→21:23)
[2019-11-15] MEDS: SUCRALFATE 1 GM TABLET. PO SCH ×3 (09:11→17:03)
[2019-11-15] MEDS: POLYETHYLENE GLYCOL 3350 17 GM PACKET. PO PRN (09:14)
--- NOTE | 2019-11-15 09:37 | PDOC ---
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 Vasogenic edema with 4 mm left to right midline shift Headaches. Cognitive impairment. Staring spells. CML. HTN. HLD. DM. KRISS. ADHD. PE Hx. Leukocytosis. Abdominal hemorrhage Obesity. L5 radiculopathy Status-post craniotomy on 11/12 Plan As per neurosurgery Levetiracetam Decadron taper per neurosurgery Will follow She will need inpatient rehabilitation Subjective No complaints Objective Vital Signs Date Time Temp Pulse Resp B/P (MAP) Pulse Ox O2 Delivery O2 Flow Rate FiO2 11/15/19 07:06 20 Nasal Cannula 2.0 11/15/19 07:00 98.4 64 106/63 (77) 95 98.4 Intake and Output 11/15/19 07:00 Intake Total 360 ml Output Total 2100 ml Balance -1740 ml Intake Oral 360 ml Output Urine Total 2100 ml # Voids 1 PHYSICAL EXAM Alert. Oriented to time, place and person. PERRL. EOMI. CN: no focal findings. Muscle tone: normal. Muscle strength: 4 right UE, 3-4 right LE, 4+ left side DTR: 1+ Plantar reflex: flexor Gait: not examined in bed. Sensory exam: no abnormal findings. No cerebellar signs elicited. Review of Relevant I have reviewed the following items mustapha (where applicable) has been applied. Labs Laboratory Tests Test 11/13/19 11:36 11/13/19 16:58 11/13/19 21:02 11/14/19 06:10 Glucose (Fingerstick) 176 mg/dL (70-99) 214 mg/dL (70-99) 192 mg/dL (70-99) White Blood Count 31.4 x10^3/uL (4.0-11.0) Red Blood Count 2.72 x10^6/uL (3.50-5.40) Hemoglobin 8.0 g/dL (12.0-15.5) Hematocrit 25.2 % (36.0-47.0) Mean Corpuscular Volume 92 fL (79-100) Mean Corpuscular Hemoglobin 30 pg (25-35) Mean Corpuscular Hemoglobin Concent 32 g/dL (31-37) Red Cell Distribution Width 18.2 % (11.5-14.5) Platelet Count 361 x10^3/uL (140-400) Sodium Level 136 mmol/L (136-145) Potassium Level 4.0 mmol/L (3.5-5.1) Chloride Level 101 mmol/L (98-107) Carbon Dioxide Level 30 mmol/L (21-32) Anion Gap 5 (6-14) Blood Urea Nitrogen 24 mg/dL (7-20) Creatinine 0.5 mg/dL (0.6-1.0) Estimated GFR (Cockcroft-Gault) 132.2 BUN/Creatinine Ratio 48 (6-20) Glucose Level 279 mg/dL (70-99) Calcium Level 7.8 mg/dL (8.5-10.1) Total Bilirubin 1.0 mg/dL (0.2-1.0) Aspartate Amino Transf (AST/SGOT) 23 U/L (15-37) Alanine Aminotransferase (ALT/SGPT) 56 U/L (14-59) Alkaline Phosphatase 58 U/L (46-116) Total Protein 5.0 g/dL (6.4-8.2) Albumin 2.2 g/dL (3.4-5.0) Albumin/Globulin Ratio 0.8 (1.0-1.7) Test 11/14/19 11:46 11/14/19 16:52 11/14/19 20:46 11/15/19 08:08 Glucose (Fingerstick) 263 mg/dL (70-99) 320 mg/dL (70-99) 378 mg/dL (70-99) 308 mg/dL (70-99) Laboratory Tests Test 11/14/19 11:46 11/14/19 16:52 11/14/19 20:46 11/15/19 08:08 Glucose (Fingerstick) 263 mg/dL (70-99) 320 mg/dL (70-99) 378 mg/dL (70-99) 308 mg/dL (70-99) Microbiology 11/10/19 Urine Culture - Preliminary, Resulted 11/10/19 Urine Culture Result 1 (СВЕТЛАНА) - Preliminary, Resulted 11/01/19 Blood Culture - Final, Complete NO GROWTH AFTER 5 DAYS Medications Current Medications Sodium Chloride 500 ml @ 500 mls/hr 1X ONCE IV Last administered on 10/21 13:00; Start 11/01/19 at 13:00; Stop 11/01/19 at 13:59; Status DC Ondansetron HCl (Zofran) 4 mg 1X ONCE IV Last administered on 11/01/19 13:26; Start 11/01/19 at 13:00; Stop 11/01/19 at 13:13; Status DC Hydromorphone HCl (Dilaudid) 0.5 mg 1X STAT IVP Last administered on 11/01/19at 13:26; Start 11/01/19 at 12:59; Stop 11/01/19 at 13:13; Status DC Iohexol (Omnipaque 300 Mg/ml) 75 ml 1X ONCE IV Last administered on 11/01/19at 14:08; Start 11/01/19 at 13:45; Stop 11/01/19 at 13:46; Status DC Info (CONTRAST GIVEN -- Rx MONITORING) 1 each PRN DAILY PRN MC SEE COMMENTS; Start 11/01/19 at 14:00; Stop 11/03/19 at 13:59; Status DC Hydromorphone HCl (Dilaudid) 0.5 mg 1X STAT IVP Last administered on 11/01/19at 16:53; Start 11/01/19 at 16:21; Stop 11/01/19 at 16:23; Status DC Sodium Chloride 1,000 ml @ 1,000 mls/hr 1X ONCE IV Last administered on 11/01/19at 16:30; Start 11/01/19 at 16:30; Stop 11/01/19 at 17:29; Status DC Sodium Chloride 500 ml @ 500 mls/hr 1X ONCE IV Last administered on 11/01/19at 16:30; Start 11/01/19 at 16:30; Stop 11/01/19 at 17:29; Status DC Albuterol Sulfate (Ventolin Neb Soln) 2.5 mg PRN Q6HRS PRN INH SHORTNESS OF BREATH; Start 11/01/19 at 16:30; Status Cancel Alprazolam (Xanax) 0.25 mg PRN TID PRN PO anxiety; Start 11/01/19 at 16:30; Stop 11/01/19 at 17:11; Status DC Amlodipine Besylate (Norvasc) 5 mg DAILY PO Last administered on 11/11/19at 09:19; Start 11/02/19 at 09:00 Cyclosporine (Restasis) 1 drop BID OU Last administered on 11/15/19at 09:09; Start 11/01/19 at 21:00 Fluticasone Propionate (Flonase) 2 spray DAILY NS Last administered on 11/11/19 08:19; Start 11/02/19 at 09:00 Lactobacillus Rhamnosus (Culturelle) 1 cap BID PO Last administered on 11/09/19at 08:28; Start 11/01/19 at 21:00; Stop 11/09/19 at 16:57; Status DC Lidocaine (Lidoderm) 1 patch DAILY TP ; Start 11/02/19 at 09:00; Stop 11/01/19 at 20:34; Status DC Metoprolol Succinate (Toprol Xl) 100 mg HS PO Last administered on 11/14/19at 21:45; Start 11/01/19 at 21:00 Nystatin (Nystop) 1 raza BID TP Last administered on 11/15/19at 09:10; Start 11/01/19 at 21:00 Pantoprazole Sodium (Protonix) 40 mg DAILYAC PO Last administered on 11/09/19at 08:28; Start 11/02/19 at 07:30; Stop 11/09/19 at 16:54; Status DC Senna/Docusate Sodium (Senna Plus) 1 tab BID PO Last administered on 11/15/19at 09:11; Start 11/01/19 at 21:00 Sucralfate (Carafate) 1 gm TIDAC PO Last administered on 11/15/19at 09:11; Start 11/01/19 at 17:30 Tramadol HCl (Ultram) 50 mg PRN Q8HRS PRN PO PAIN; Start 11/01/19 at 16:30; Stop 11/01/19 at 19:43; Status DC Insulin Glargine (Lantus Syringe) 30 unit QHS SQ Last administered on 11/06/19at 21:16; Start 11/01/19 at 21:00; Stop 11/07/19 at 15:56; Status DC Ondansetron HCl (Zofran Odt) 8 mg PRN Q8HRS PRN PO NAUSEA/VOMITING Last administered on 11/14/19 17:23; Start 11/01/19 at 17:15 Polyethylene Glycol (miraLAX PACKET) 17 gm PRN DAILY PRN PO CONSTIPATION, 1ST CHOICE Last administered on 11/15/19 09:14; Start 11/01/19 at 17:11 Atorvastatin Calcium (Lipitor) 80 mg QHS PO Last administered on 11/14/19 21:44; Start 11/01/19 at 21:00 Insulin Human Lispro (HumaLOG) 0-9 UNITS TIDAC SQ Last administered on 11/07/19 12:20; Start 11/01/19 at 16:30; Stop 11/07/19 at 15:56; Status DC Dextrose (Dextrose 50%-Water Syringe) 12.5 gm PRN Q15MIN PRN IV SEE COMMENTS; Start 11/01/19 at 16:30; Stop 11/12/19 at 15:36; Status DC Ondansetron HCl (Zofran) 4 mg PRN Q8HRS PRN IV NAUSEA/VOMITING; Start 11/01/19 at 16:30; Stop 11/02/19 at 16:29; Status DC Alprazolam (Xanax) 0.25 mg PRN TID PRN PO anxiety Last administered on 11/14/19 21:45; Start 11/01/19 at 17:11 Miscellaneous (Lidoderm Patch Removal) 1 ea QHS MC ; Start 11/01/19 at 21:00; Stop 11/01/19 at 20:34; Status DC Ceftriaxone Sodium (Rocephin) 1 gm QHS IVP Last administered on 11/14/19 21:44; Start 11/01/19 at 18:45 Tramadol HCl (Ultram) 50 mg PRN Q8HRS PRN PO MILD PAIN 1-3 Last administered on 11/14/19 15:29; Start 11/01/19 at 19:45 Hydromorphone HCl (Dilaudid) 1 mg PRN Q4HRS PRN IV SEVERE PAIN Last administered on 11/15/19 06:36; Start 11/01/19 at 20:15 Lidocaine (Lidoderm) 1 patch QHS TP Last administered on 11/14/19 08:19; Start 11/01/19 at 21:00 Miscellaneous (Lidoderm Patch Removal) 1 ea DAILY MC Last administered on 11/14/19at 09:00; Start 11/02/19 at 09:00 Albumin Human 500 ml @ 125 mls/hr 1X ONCE IV ; Start 11/02/19 at 02:00; Stop 11/02/19 at 05:59; Status Cancel Acetaminophen (Tylenol) 650 mg 1X PRN PRN PO PRE-TRANSFUSION; Start 11/02/19 at 06:45; Stop 11/03/19 at 14:16; Status DC Diphenhydramine HCl (Benadryl Oral Elixir) 12.5 mg 1X PRN PRN PO PRE- TRANSFUSION; Start 11/02/19 at 06:45; Stop 11/03/19 at 14:16; Status DC Diphenhydramine HCl (Benadryl) 25 mg PRN 1X PRN PO PRE-TRANSFUSION; Start 11/02/19 at 06:45; Stop 11/03/19 at 14:16; Status DC Lactulose (LACTULOSE 300ML for RECTAL) 200 gm Q6HRS HI Last administered on 11/02/19at 18:00; Start 11/02/19 at 18:00; Stop 11/04/19 at 14:44; Status DC Sodium Chloride 1,000 ml @ 100 mls/hr Q10H IV Last administered on 11/13/19at 15:30; Start 11/02/19 at 12:00; Stop 11/14/19 at 11:28; Status DC Lactulose (Lactulose) 20 gm PRN DAILY PRN PO CONSTIPATION, 2ND CHOICE; Start 11/04/19 at 14:45 Oxycodone HCl (Roxicodone) 5 mg PRN Q6HRS PRN PO MODERATE TO SEVERE PAIN Last administered on 11/15/19at 05:30; Start 11/04/19 at 14:45 Lidocaine HCl (Buffered Lidocaine 1%) 3 ml STK-MED ONCE .ROUTE ; Start 11/05/19 at 08:13; Stop 11/05/19 at 08:13; Status DC Lidocaine HCl (Buffered Lidocaine 1%) 3 ml STK-MED ONCE .ROUTE ; Start 11/05/19 at 08:14; Stop 11/05/19 at 08:14; Status DC Midazolam HCl (Versed) 2 mg STK-MED ONCE .ROUTE ; Start 11/05/19 at 08:40; Stop 11/05/19 at 08:40; Status DC Fentanyl Citrate (Fentanyl 2ml Vial) 100 mcg STK-MED ONCE .ROUTE ; Start 11/05/19 at 08:40; Stop 11/05/19 at 08:41; Status DC Lidocaine HCl (Buffered Lidocaine 1%) 3 ml 1X ONCE IJ Last administered on 11/05/19at 08:45; Start 11/05/19 at 08:45; Stop 11/05/19 at 08:50; Status DC Midazolam HCl (Versed) 2 mg 1X ONCE IV Last administered on 11/05/19at 08:45; Start 11/05/19 at 08:45; Stop 11/05/19 at 08:50; Status DC Fentanyl Citrate (Fentanyl 2ml Vial) 100 mcg 1X ONCE IV Last administered on 11/05/19 08:45; Start 11/05/19 at 08:45; Stop 11/05/19 at 08:50; Status DC Dexamethasone Sodium Phosphate (Decadron) 4 mg Q6HRS IVP Last administered on 11/15/19at 06:36; Start 11/06/19 at 09:00 Insulin Glargine (Lantus Syringe) 40 unit QHS SQ Last administered on 11/14/19at 21:56; Start 11/07/19 at 21:00 Insulin Human Lispro (HumaLOG) 10 units TIDAC SQ Last administered on 11/14/19 17:31; Start 11/07/19 at 16:30; Stop 11/15/19 at 08:16; Status DC Insulin Human Lispro (HumaLOG) 0-9 UNITS TIDWMEALS SQ Last administered on 11/11/19at 17:13; Start 11/07/19 at 17:00; Stop 11/12/19 at 15:37; Status DC Insulin Human Lispro (HumaLOG) 19 units 1X ONCE SQ Last administered on 11/09/19at 12:41; Start 11/09/19 at 12:15; Stop 11/09/19 at 12:16; Status DC Insulin Human Lispro (HumaLOG) 5 units 1X ONCE SQ Last administered on 11/09/19at 13:52; Start 11/09/19 at 13:30; Stop 11/09/19 at 13:31; Status DC Non-Formulary Medication 1 ea DAILY PO ; Start 11/09/19 at 16:30; Status Cancel Ondansetron HCl (Zofran) 4 mg PRN Q6HRS PRN IV NAUSEA/VOMITING; Start 11/12/19 at 07:00; Stop 11/12/19 at 19:56; Status DC Fentanyl Citrate (Fentanyl 2ml Vial) 25 mcg PRN Q5MIN PRN IV MILD PAIN 1-3; Start 11/12/19 at 07:00; Stop 11/12/19 at 19:56; Status DC Fentanyl Citrate (Fentanyl 2ml Vial) 50 mcg PRN Q5MIN PRN IV MODERATE TO SEVERE PAIN; Start 11/12/19 at 07:00; Stop 11/12/19 at 19:56; Status DC Morphine Sulfate (Morphine Sulfate) 1 mg PRN Q10MIN PRN IV SEVERE PAIN 7-10; Start 11/12/19 at 07:00; Stop 11/09/19 at 17:30; Status DC Ringer's Solution 1,000 ml @ 30 mls/hr Q24H IV Last administered on 11/12/19at 10:00; Start 11/12/19 at 07:00; Stop 11/12/19 at 18:59; Status DC Lidocaine HCl (Xylocaine-Mpf 1% 2ml Vial) 2 ml PRN 1X PRN ID PRIOR TO IV START; Start 11/12/19 at 07:00; Stop 11/12/19 at 19:56; Status DC Hydromorphone HCl (Dilaudid) 0.5 mg PRN Q10MIN PRN IV SEV PAIN, Second choice; Start 11/12/19 at 07:00; Stop 11/12/19 at 19:56; Status DC Prochlorperazine Edisylate (Compazine) 5 mg PACU PRN PRN IV NAUSEA, MRX1; Start 11/12/19 at 07:00; Stop 11/12/19 at 19:56; Status DC Pantoprazole Sodium (Protonix) 40 mg DAILYAC PO Last administered on 11/14/19at 08:19; Start 11/09/19 at 18:30; Stop 11/15/19 at 09:25; Status DC Levetiracetam (Keppra) 500 mg BID PO Last administered on 11/15/19at 09:11; Start 11/09/19 at 21:00 Non-Formulary Medication 1 ea DAILY PO Last administered on 11/15/19at 09:00; Start 11/12/19 at 09:00 Insulin Human Lispro (HumaLOG) 8 units 1X ONCE SQ Last administered on 11/10/19at 12:32; Start 11/10/19 at 12:15; Stop 11/10/19 at 12:16; Status DC Propofol 20 ml @ As Directed STK-MED ONCE IV ; Start 11/12/19 at 07:48; Stop 11/12/19 at 07:48; Status DC Dexamethasone Sodium Phosphate (Decadron) 20 mg STK-MED ONCE .ROUTE ; Start 11/12/19 at 07:48; Stop 11/12/19 at 07:48; Status DC Lidocaine HCl (Lidocaine Pf 2% Vial) 5 ml STK-MED ONCE .ROUTE ; Start 11/12/19 at 07:48; Stop 11/12/19 at 07:48; Status DC Ondansetron HCl (Zofran) 4 mg STK-MED ONCE .ROUTE ; Start 11/12/19 at 07:48; Stop 11/12/19 at 07:48; Status DC Phenylephrine HCl (Tony-Synephrine Inj) 10 mg STK-MED ONCE .ROUTE ; Start 11/12/19 at 07:48; Stop 11/12/19 at 07:48; Status DC Propofol 50 ml @ As Directed STK-MED ONCE IV ; Start 11/12/19 at 07:48; Stop 11/12/19 at 07:48; Status DC Rocuronium [place] (Zemuron) 50 mg STK-MED ONCE .ROUTE ; Start 11/12/19 at 07:48; Stop 11/12/19 at 07:48; Status DC Remifentanil HCl (Ultiva) 2 mg STK-MED ONCE IV ; Start 11/12/19 at 07:48; Stop 11/12/19 at 07:49; Status DC Sodium Chloride (SODIUM CHLORIDE 20ml) 20 ml STK-MED ONCE IJ ; Start 11/12/19 at 07:49; Stop 11/12/19 at 07:49; Status DC Multi-Ingred Cream/Lotion/Oil/ Oint (Artificial Tears Eye Ointment) 7 raza STK- MED ONCE .ROUTE ; Start 11/12/19 at 07:49; Stop 11/12/19 at 07:49; Status DC Bacitracin 44540 unit/Sodium Chloride 1,000 ml @ 1,000 mls/hr 1X ONCE IRR Last administered on 11/12/19at 11:26; Start 11/12/19 at 07:57; Stop 11/12/19 at 08:56; Status DC Sodium Chloride (SODIUM CHLORIDE 20ml) 20 ml STK-MED ONCE IJ ; Start 11/12/19 at 07:57; Stop 11/12/19 at 07:57; Status DC Gelatin (Gelfoam Size 100) 1 each STK-MED ONCE .ROUTE Last administered on 11/12/19at 11:26; Start 11/12/19 at 07:59; Stop 11/12/19 at 07:59; Status DC Cellulose (Surgicel Hemostat 4x8) 1 each STK-MED ONCE .ROUTE Last administered on 11/12/19at 12:01; Start 11/12/19 at 07:59; Stop 11/12/19 at 08:00; Status DC Lidocaine/ Epinephrine (LIDOCAINE 1%-EPI 1:100,000 Multi-Dose) 20 ml STK-MED ONCE .ROUTE Last administered on 11/12/19at 11:26; Start 11/12/19 at 07:59; Stop 11/12/19 at 08:00; Status DC Thrombin 20,000 unit STK-MED ONCE TP Last administered on 11/12/19at 11:26; Start 11/12/19 at 08:00; Stop 11/12/19 at 08:00; Status DC Bacitracin (Bacitracin Zinc Oint Pkt) 1 pkt STK-MED ONCE TP ; Start 11/12/19 at 08:00; Stop 11/12/19 at 08:00; Status DC Propofol 100 ml @ As Directed STK-MED ONCE IV ; Start 11/12/19 at 08:02; Stop 11/12/19 at 08:02; Status DC Insulin Human Lispro (HumaLOG) 11 units 1X ONCE SQ Last administered on 11/12/19at 08:15; Start 11/12/19 at 08:15; Stop 11/12/19 at 08:16; Status DC Gadoterate Meglumine (Dotarem) 24.8 ml 1X ONCE IVP Last administered on 11/12/19at 08:15; Start 11/12/19 at 08:15; Stop 11/12/19 at 08:16; Status DC Insulin Human Regular 100 unit/ Sodium Chloride 101 ml @ 12.484 mls/ hr ONCE ONCE IV ; Start 11/12/19 at 08:15; Stop 11/12/19 at 16:20; Status DC Desflurane (Suprane) 90 ml STK-MED ONCE IH ; Start 11/12/19 at 08:11; Stop 11/12/19 at 08:11; Status DC Fentanyl Citrate (Fentanyl 2ml Vial) 100 mcg STK-MED ONCE .ROUTE ; Start 11/12/19 at 08:20; Stop 11/12/19 at 08:20; Status DC Midazolam HCl (Versed) 2 mg STK-MED ONCE .ROUTE ; Start 11/12/19 at 08:20; Stop 11/12/19 at 08:20; Status DC Rocuronium [place] (Zemuron) 50 mg STK-MED ONCE .ROUTE ; Start 11/12/19 at 09:11; Stop 11/12/19 at 09:12; Status DC Mannitol (Mannitol) 12.5 g STK-MED ONCE .ROUTE ; Start 11/12/19 at 09:22; Stop 11/12/19 at 09:23; Status DC Propofol 100 ml @ As Directed STK-MED ONCE IV ; Start 11/12/19 at 09:22; Stop 11/12/19 at 09:23; Status DC Lidocaine HCl (Xylocaine-Mpf 1% 2ml Vial) 2 ml STK-MED ONCE .ROUTE ; Start 11/12/19 at 09:24; Stop 11/12/19 at 09:24; Status DC Cefazolin Sodium 3 gm/Dextrose 100 ml @ 200 mls/hr 1X PREOP ONCE IV Last administered on 11/12/19at 10:53; Start 11/12/19 at 10:30; Stop 11/12/19 at 10:59; Status DC Gelatin (Gelfoam Size 12-7mm) 1 each STK-MED ONCE .ROUTE Last administered on 11/12/19at 12:03; Start 11/12/19 at 11:59; Stop 11/12/19 at 12:01; Status DC Thrombin 20,000 unit STK-MED ONCE TP Last administered on 11/12/19at 12:04; Start 11/12/19 at 12:00; Stop 11/12/19 at 12:01; Status DC Gelatin (Gelfoam Size 100) 1 each STK-MED ONCE .ROUTE Last administered on 11/12/19at 12:25; Start 11/12/19 at 12:26; Stop 11/12/19 at 12:26; Status DC Gelatin (Gelfoam Size 12-7mm) 1 each STK-MED ONCE .ROUTE Last administered on 11/12/19at 13:35; Start 11/12/19 at 13:32; Stop 11/12/19 at 13:33; Status DC Thrombin 20,000 unit STK-MED ONCE TP Last administered on 11/12/19at 13:35; Start 11/12/19 at 13:32; Stop 11/12/19 at 13:33; Status DC Gelatin (Gelfoam Size 12-7mm) 1 each STK-MED ONCE .ROUTE Last administered on 11/12/19at 13:55; Start 11/12/19 at 13:55; Stop 11/12/19 at 13:55; Status DC Gelatin (Gelfoam Size 12-7mm) 1 each STK-MED ONCE .ROUTE Last administered on 11/12/19at 13:59; Start 11/12/19 at 13:59; Stop 11/12/19 at 13:59; Status DC Labetalol HCl (Normodyne Iv Push) 5 mg PRN Q15MIN PRN IVP HYPERTENSION; Start 11/12/19 at 15:15 Nicardipine HCl 50 mg/Sodium Chloride 250 ml @ 25 mls/hr TITRATE PRN IV SBP 90-140; Start 11/12/19 at 15:15; Stop 11/15/19 at 08:16; Status DC Hydralazine HCl (Apresoline Inj) 5 mg PRN Q6HRS PRN IVP TO KEEP SBP<140mmHg; Start 11/12/19 at 15:15 Al Hydroxide/Mg Hydroxide (Mylanta Plus Xs) 30 ml PRN Q3HRS PRN PO HEARTBURN / GAS; Start 11/12/19 at 15:15 Calcium Carbonate/ Glycine (Tums) 500 mg PRN Q3HRS PRN PO INDIGESTION; Start 11/12/19 at 15:15 Diphenhydramine HCl (Benadryl) 25 mg PRN Q6HRS PRN PO ITCHING; Start 11/12/19 at 15:15 Diphenhydramine HCl (Benadryl) 25 mg PRN Q6HRS PRN IV ITCHING; Start 11/12/19 at 15:15 Sodium Chloride (Normal Saline Flush) 3 ml QSHIFT PRN IV AFTER MEDS AND BLOOD DRAWS; Start 11/12/19 at 15:15 Insulin Human Lispro (HumaLOG) 0-5 UNITS TIDWMEALS SQ Last administered on 11/15/19at 09:21; Start 11/12/19 at 17:00 Dextrose (Dextrose 50%-Water Syringe) 12.5 gm PRN Q15MIN PRN IV SEE COMMENTS; Start 11/12/19 at 15:15 Dextrose (Iv Dextrose 5%) 250 ml PRN Q15MIN PRN IV SEE COMMENTS; Start 11/12/19 at 15:15 Hydromorphone HCl (Dilaudid) 0.2 mg PRN Q1HR PRN IV MODERATE PAIN; Start 11/12/19 at 15:15 Insulin Human Lispro (HumaLOG VIAL for OP,RR ONLY) 0-10 units PRN Q1HR PRN SQ PER PROTOCOL Last administered on 11/12/19at 15:50; Start 11/12/19 at 16:00; Stop 11/12/19 at 19:54; Status DC Insulin Human Lispro (HumaLOG VIAL for OP,RR ONLY) 4 unit 1X ONCE SQ ; Start 11/12/19 at 16:45; Stop 11/12/19 at 16:46; Status DC Ferrous Sulfate (Iron Oral Solution) 300 mg QD PO Last administered on 11/14/19at 11:52; Start 11/13/19 at 10:00 Gadoterate Meglumine (Dotarem) 10 ml 1X ONCE IVP Last administered on 11/13/19at 15:00; Start 11/13/19 at 14:45; Stop 11/13/19 at 14:48; Status DC Gadoterate Meglumine (Dotarem) 15 ml 1X ONCE IVP Last administered on 11/13/19at 15:00; Start 11/13/19 at 14:45; Stop 12/24/19 at 14:48; Status DC Insulin Human Lispro (HumaLOG) 15 units TIDAC SQ Last administered on 11/15/19at 08:15; Start 11/15/19 at 08:15 Insulin Glargine (Lantus Syringe) 20 unit DAILY SQ Last administered on 11/15/19at 09:20; Start 11/15/19 at 09:00 Active Scripts Active Enoxaparin Sodium 120 Mg/0.8 Ml Disp.syrin 120 Mg SQ Q12HR 28 Days Dexamethasone 4 Mg Tablet 4 Mg PO BID 14 Days Culturelle (Lactobacillus Rhamnosus Gg) 1 Each Cap.sprink 1 Cap PO BID 30 Days Amlodipine Besylate 5 Mg Tablet 5 Mg PO DAILY 30 Days Cefdinir 300 Mg Capsule 300 Mg PO BID 10 Days Reported Cymbalta (Duloxetine Hcl) 60 Mg Capsule.dr 1 Cap PO BID Lyrica (Pregabalin) 150 Mg Capsule 1 Cap PO BID Novolog (Insulin Aspart) 100 Unit/1 Ml Cartridge 10-45 Unit SQ QIDACHS Levemir (Insulin Detemir) 100 Unit/1 Ml Vial 30 Unit SQ HS Linzess (Linaclotide) 145 Mcg Capsule 145 Mcg PO PRN PRN Crestor (Rosuvastatin Calcium) 40 Mg Tablet 0.5 Tab PO DAILY Polyethylene Glycol 3350 2,500 Gm Powder 17 Gm PO PRN PRN Xanax (Alprazolam) 1 Mg Tablet 1 Tab PO TID Restasis (Cyclosporine) 1 Each Droperette 1 Drop EACHEYE BID Proair Hfa Inhaler (Albuterol Sulfate) 8.5 Gm Hfa.aer.ad 1 Puff INH PRN Q6HRS PRN Tramadol Hcl 50 Mg Tablet 1 Tab PO PRN Q8HRS PRN Ondansetron Hcl 4 Mg Tablet 2 Tab PO PRN Q8HRS PRN Nystatin 15 Gm Powder 1 Raza TP BID Lidocaine PATCH (Lidocaine) 1 Each Adh..patch 1 Each TP DAILY Fluticasone Propionate Nasal Britt (Fluticasone Propionate) 16 Gm Britt.susp 2 Britt NS DAILY Percocet 5-325 Mg Tablet (Oxycodone/Acetaminophen) 1 Each Tablet 1-2 Tab PO Q4-6HRS PRN LAST DOSE AT NEXT DOSE Senna-Docusate Sodium Tablet (Sennosides/Docusate Sodium) 1 Each Tablet 1 Each PO BID LAST DOSE THIS AM NEXT DOSE TONCLIVE Robaxin-750 (Methocarbamol) 750 Mg Tablet 1 Tab PO TID LAST DOSE AT 1400 (2PM) MAY HAVE THE NEXT DOSE AT 10 PM Protonix (Pantoprazole Sodium) 40 Mg Tablet.dr 40 Mg PO DAILY LST DOSE THIS AM NEXT DOSE TOMORROW AM Carafate (Sucralfate) 1 Gm Tablet 1 Tab PO TID Meds not given this hospital admission. May resume home medications as approved by Physician. MAY TAKE WHEN AVAILABLE Xarelto (Rivaroxaban) 15 Mg Tablet 15 Mg PO DAILY Meds not given this hospital admission. May resume home medications as approved by Physician. MAY RESUME WHEN AVAILABLE Metoprolol Succinate ( Xl ) (Metoprolol Succinate) 100 Mg Tab.er.24h 100 Mg PO HS LAST DOSE THIS AM NEXT DOSE TOMORROW AM Vitals/I & O Vital Sign - Last 24 Hours 11/14/19 11/14/19 11/14/19 11/14/19 09:47 10:00 11:00 11:24 Pulse 77 94 Resp 22 14 14 B/P (MAP) 101/56 (71) 103/51 (68) Pulse Ox 94 97 O2 Delivery Nasal Cannula Room Air Room Air O2 Flow Rate 3.0 11/14/19 11/14/19 11/14/19 11/14/19 12:00 12:00 13:57 13:57 Temp 98.1 98.1 Pulse 89 Resp 14 B/P (MAP) 111/64 (80) Pulse Ox 97 97 97 O2 Delivery Room Air Room Air Room Air Room Air O2 Flow Rate 3.0 3.0 11/14/19 11/14/19 11/14/19 11/14/19 13:57 13:57 14:00 15:29 Pulse Ox 97 97 97 O2 Delivery Room Air Room Air Nasal Cannula Room Air O2 Flow Rate 3.0 3.0 3.0 3.0 11/14/19 11/14/19 11/14/19 11/14/19 15:37 16:50 17:24 18:19 Temp 97.7 97.7 Pulse 89 Resp 18 B/P (MAP) 97/58 (71) Pulse Ox 96 96 96 96 O2 Delivery Room Air Nasal Cannula Nasal Cannula Nasal Cannula O2 Flow Rate 3.0 3.0 3.0 11/14/19 11/14/19 11/14/19 11/14/19 19:00 20:05 20:31 21:31 Temp 98.1 98.1 Pulse 106 Resp 14 20 20 B/P (MAP) 110/63 (79) Pulse Ox 95 O2 Delivery Room Air Room Air Room Air Room Air 11/14/19 11/14/19 11/14/19 11/14/19 21:43 21:45 22:13 23:00 Temp 99.0 99.0 Pulse 106 96 Resp 20 20 14 B/P (MAP) 110/63 106/62 (77) Pulse Ox 97 O2 Delivery Room Air Room Air Nasal Cannula O2 Flow Rate 2.0 11/15/19 11/15/19 11/15/19 11/15/19 02:16 02:46 03:00 05:30 Temp 98.2 98.2 Pulse 74 Resp 20 20 18 20 B/P (MAP) 109/60 (76) Pulse Ox 98 O2 Delivery Nasal Cannula Nasal Cannula Nasal Cannula Room Air O2 Flow Rate 2.0 2.0 2.0 11/15/19 11/15/19 11/15/19 11/15/19 06:30 06:36 07:00 07:06 Temp 98.4 98.4 Pulse 64 Resp 20 20 18 20 B/P (MAP) 106/63 (77) Pulse Ox 95 O2 Delivery Nasal Cannula Nasal Cannula Room Air Nasal Cannula O2 Flow Rate 2.0 2.0 2.0 Intake and Output 11/14/19 11/14/19 11/15/19 15:00 23:00 07:00 Intake Total 240 ml 120 ml Output Total 1000 ml 450 ml 650 ml Balance -760 ml -330 ml -650 ml CISCO KLEIN MD Nov 15, 2019 09:37
--- NOTE | 2019-11-15 09:39 | PDOC ---
SUBJECTIVE Subjective S: Had debulking of parietal mass on 11/12, with resultant right-sided weakness still, stable MRI on 11/13 O: Physical exam: Gen.: obese, resting in chair, NAD, head shaved at site of craniotomy, still unable to move R side Lungs: Breathing comfortably Psychiatric: Pleasant mood and affect Labs: Ferritin 82, iron sat 12%, TIBC low White blood cell 31, hemoglobin 8.0, platelets 361 Creatinine 0.5 BM showed CML in CP Path Pending from craniotomy brain mri 11/12 pre op: homogeneously enhancing left parietal convexity extra- axial mass measuring 3.8 x 3.9 x 3.3 cm with associated dural tail. The mass abuts the superior sagittal sinus without definite involvement onthis examination. Associated vasogenic edema with minimal mass effect and midline shift to the right by approximately 8 mm, stable. There is persistent mass effect on the atria of the left lateral ventricle without hydrocephalus. head ct 11/12 post op:Left lateral vertex level hematoma which may represent subdural or epidural hematoma in this postoperative patient. Left vertex intraparenchymal hematomas also are seen. Parafalcine hemorrhage which extends along the left tentorium also noted. Postoperative findings are present with the left vertex level mass no longer being delineated. Left maxillary sinusitis. brain MRI 11/13 MPRESSION: Post left parietal craniotomy with resection of the extra-axial mass from the left parietal region. Residual enhancing mass is seen superiorly and medially within the left region which measures 2.8 cm in size. Intraparenchymal and extra-axial hemorrhage is seen within the left parietal region as discussed above. Edema is seen involving the left parietal lobe. The hemorrhage and edema does not appear significantly changed since the patient's CT scan from yesterday. 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 await path post op, per NSG, apprec Dr Clark's help h/o clotting: Restart anticoagulation ppx today, as long as OK w/ Dr Clark Thank you kindly and please do not hesitate to call with questions. OBJECTIVE Vital Signs Vital Signs Date Time Temp Pulse Resp B/P (MAP) Pulse Ox O2 Delivery O2 Flow Rate FiO2 11/15/19 07:06 20 Nasal Cannula 2.0 11/15/19 07:00 98.4 64 18 106/63 (77) 95 Room Air 98.4 11/15/19 06:36 20 Nasal Cannula 2.0 11/15/19 06:30 20 Nasal Cannula 2.0 11/15/19 05:30 20 Room Air 11/15/19 03:00 98.2 74 18 109/60 (76) 98 Nasal Cannula 2.0 98.2 11/15/19 02:46 20 Nasal Cannula 2.0 11/15/19 02:16 20 Nasal Cannula 2.0 11/14/19 23:00 99.0 96 14 106/62 (77) 97 Nasal Cannula 2.0 99.0 11/14/19 22:13 20 Room Air 11/14/19 21:45 106 110/63 11/14/19 21:43 20 Room Air 11/14/19 21:31 20 Room Air 11/14/19 20:31 20 Room Air 11/14/19 20:05 Room Air 11/14/19 19:00 98.1 106 14 110/63 (79) 95 Room Air 98.1 11/14/19 18:19 96 Nasal Cannula 3.0 11/14/19 17:24 96 Nasal Cannula 3.0 11/14/19 16:50 96 Nasal Cannula 3.0 11/14/19 15:37 97.7 89 18 97/58 (71) 96 Room Air 97.7 11/14/19 15:29 97 Room Air 3.0 11/14/19 14:00 Nasal Cannula 3.0 11/14/19 13:57 97 Room Air 3.0 11/14/19 13:57 97 Room Air 3.0 11/14/19 13:57 97 Room Air 3.0 11/14/19 13:57 97 Room Air 3.0 11/14/19 12:00 98.1 89 14 111/64 (80) 97 Room Air 98.1 11/14/19 12:00 Room Air 11/14/19 11:24 Room Air 11/14/19 11:00 94 14 103/51 (68) 97 Room Air 11/14/19 10:00 77 14 101/56 (71) 94 Nasal Cannula 3.0 11/14/19 09:47 22 I & O Intake and Output 11/15/19 07:00 Intake Total 360 ml Output Total 2100 ml Balance -1740 ml Intake Oral 360 ml Output Urine Total 2100 ml # Voids 1 COMMENT Lab Laboratory Tests Test 11/14/19 11:46 11/14/19 16:52 11/14/19 20:46 11/15/19 08:08 Glucose (Fingerstick) 263 mg/dL (70-99) 320 mg/dL (70-99) 378 mg/dL (70-99) 308 mg/dL (70-99) Nutrition Consultation Dietary Evaluation: Recommendations by RD: Dietary education by RD, Increase Calorie Intake, Protein supplementation Comments: REC continue ADA/cardiac diet ,glucerna Expected Outcomes/Goals: PO intake to meet >75% est needs- met at times, goal ongoing Interpretation of weight loss: >5% in 1 month Malnutrition Findings: Food and Nutrition Intake (Sev: <50% est energy req 5days Weight Status: Morbidly Obese ENEDELIA HUYNH MD Nov 15, 2019 09:39
[2019-11-15] MEDS: traMADol 50 MG TABLET PO PRN ×2 (10:10→17:56)
[2019-11-15] MEDS: FERROUS SULFATE ORAL 300 MG/5 ML SOLUTION. PO SCH (10:10)
[2019-11-15] MEDS: ALPRAZolam 0.25 MG TABLET PO PRN ×2 (10:45→19:26)
[2019-11-15 11:00] VITALS: BP 111/62
[2019-11-15] MEDS: ENOXAPARIN 40 MG/0.4 ML SYRINGE. SQ SCH ×2 (11:01→23:36)
--- NOTE | 2019-11-15 11:11 | PDOC ---
PROGRESS NOTES Subjective Subjective Denies apparent acute changes. Objective Objective Vital Signs Date Time Temp Pulse Resp B/P (MAP) Pulse Ox O2 Delivery O2 Flow Rate FiO2 11/15/19 10:42 22 Room Air 11/15/19 07:06 2.0 11/15/19 07:00 98.4 64 106/63 (77) 95 98.4 Intake and Output 11/15/19 07:00 Intake Total 360 ml Output Total 2100 ml Balance -1740 ml Intake Oral 360 ml Output Urine Total 2100 ml # Voids 1 Physical Exam Physical Exam AAOx4, NAD, RUE 0/5, RLE now 2-/5 at knee and ankle, reports improving sensation to LT in RUE and RLE, incision c/d/i with edd Assessment Assessment Problems Medical Problems: (1) Abdominal hemorrhage Status: Acute (2) Generalized weakness Status: Acute (3) Lactic acidosis Status: Acute (4) Leukocytosis Status: Acute Plan Plan of Care -continue decadron - taper will be over weeks -okay for anticoagulant pharmacological prophylaxis -aggressive therapies -inpt rehab Comment Review of Relevant I have reviewed the following items mustapha (where applicable) has been applied. Labs Laboratory Tests Test 11/13/19 11:36 11/13/19 16:58 11/13/19 21:02 11/14/19 06:10 Glucose (Fingerstick) 176 mg/dL (70-99) 214 mg/dL (70-99) 192 mg/dL (70-99) White Blood Count 31.4 x10^3/uL (4.0-11.0) Red Blood Count 2.72 x10^6/uL (3.50-5.40) Hemoglobin 8.0 g/dL (12.0-15.5) Hematocrit 25.2 % (36.0-47.0) Mean Corpuscular Volume 92 fL (79-100) Mean Corpuscular Hemoglobin 30 pg (25-35) Mean Corpuscular Hemoglobin Concent 32 g/dL (31-37) Red Cell Distribution Width 18.2 % (11.5-14.5) Platelet Count 361 x10^3/uL (140-400) Sodium Level 136 mmol/L (136-145) Potassium Level 4.0 mmol/L (3.5-5.1) Chloride Level 101 mmol/L (98-107) Carbon Dioxide Level 30 mmol/L (21-32) Anion Gap 5 (6-14) Blood Urea Nitrogen 24 mg/dL (7-20) Creatinine 0.5 mg/dL (0.6-1.0) Estimated GFR (Cockcroft-Gault) 132.2 BUN/Creatinine Ratio 48 (6-20) Glucose Level 279 mg/dL (70-99) Calcium Level 7.8 mg/dL (8.5-10.1) Total Bilirubin 1.0 mg/dL (0.2-1.0) Aspartate Amino Transf (AST/SGOT) 23 U/L (15-37) Alanine Aminotransferase (ALT/SGPT) 56 U/L (14-59) Alkaline Phosphatase 58 U/L (46-116) Total Protein 5.0 g/dL (6.4-8.2) Albumin 2.2 g/dL (3.4-5.0) Albumin/Globulin Ratio 0.8 (1.0-1.7) Test 11/14/19 11:46 11/14/19 16:52 11/14/19 20:46 11/15/19 08:08 Glucose (Fingerstick) 263 mg/dL (70-99) 320 mg/dL (70-99) 378 mg/dL (70-99) 308 mg/dL (70-99) Laboratory Tests Test 11/14/19 11:46 11/14/19 16:52 11/14/19 20:46 11/15/19 08:08 Glucose (Fingerstick) 263 mg/dL (70-99) 320 mg/dL (70-99) 378 mg/dL (70-99) 308 mg/dL (70-99) Microbiology 11/10/19 Urine Culture - Preliminary, Resulted 11/10/19 Urine Culture Result 1 (СВЕТЛАНА) - Preliminary, Resulted 11/01/19 Blood Culture - Final, Complete NO GROWTH AFTER 5 DAYS Medications Current Medications Sodium Chloride 500 ml @ 500 mls/hr 1X ONCE IV Last administered on 11/01/19at 13:00; Start 11/01/19 at 13:00; Stop 11/01/19 at 13:59; Status DC Ondansetron HCl (Zofran) 4 mg 1X ONCE IV Last administered on 11/01/19at 13:26; Start 11/01/19 at 13:00; Stop 11/01/19 at 13:13; Status DC Hydromorphone HCl (Dilaudid) 0.5 mg 1X STAT IVP Last administered on 11/01/19at 13:26; Start 11/01/19 at 12:59; Stop 11/01/19 at 13:13; Status DC Iohexol (Omnipaque 300 Mg/ml) 75 ml 1X ONCE IV Last administered on 11/01/19at 14:08; Start 11/01/19 at 13:45; Stop 11/01/19 at 13:46; Status DC Info (CONTRAST GIVEN -- Rx MONITORING) 1 each PRN DAILY PRN MC SEE COMMENTS; Start 11/01/19 at 14:00; Stop 11/03/19 at 13:59; Status DC Hydromorphone HCl (Dilaudid) 0.5 mg 1X STAT IVP Last administered on 11/01/19at 16:53; Start 11/01/19 at 16:21; Stop 11/01/19 at 16:23; Status DC Sodium Chloride 1,000 ml @ 1,000 mls/hr 1X ONCE IV Last administered on 11/01/19at 16:30; Start 11/01/19 at 16:30; Stop 11/01/19 at 17:29; Status DC Sodium Chloride 500 ml @ 500 mls/hr 1X ONCE IV Last administered on 11/01/19a t 16:30; Start 11/01/19 at 16:30; Stop 11/01/19 at 17:29; Status DC Albuterol Sulfate (Ventolin Neb Soln) 2.5 mg PRN Q6HRS PRN INH SHORTNESS OF BREATH; Start 11/01/19 at 16:30; Status Cancel Alprazolam (Xanax) 0.25 mg PRN TID PRN PO anxiety; Start 11/01/19 at 16:30; Stop 11/01/19 at 17:11; Status DC Amlodipine Besylate (Norvasc) 5 mg DAILY PO Last administered on 11/11/19at 09:19; Start 11/02/19 at 09:00 Cyclosporine (Restasis) 1 drop BID OU Last administered on 11/15/19at 09:09; Start 11/01/19 at 21:00 Fluticasone Propionate (Flonase) 2 spray DAILY NS Last administered on 11/11/19 08:19; Start 11/02/19 at 09:00 Lactobacillus Rhamnosus (Culturelle) 1 cap BID PO Last administered on 11/09/19 08:28; Start 11/01/19 at 21:00; Stop 11/09/19 at 16:57; Status DC Lidocaine (Lidoderm) 1 patch DAILY TP ; Start 11/02/19 at 09:00; Stop 11/01/19 at 20:34; Status DC Metoprolol Succinate (Toprol Xl) 100 mg HS PO Last administered on 11/14/19 21:45; Start 11/01/19 at 21:00 Nystatin (Nystop) 1 raza BID TP Last administered on 11/15/19 09:10; Start 11/01/19 at 21:00 Pantoprazole Sodium (Protonix) 40 mg DAILYAC PO Last administered on 11/09/19 08:28; Start 11/02/19 at 07:30; Stop 11/09/19 at 16:54; Status DC Senna/Docusate Sodium (Senna Plus) 1 tab BID PO Last administered on 11/15/19 09:11; Start 11/01/19 at 21:00 Sucralfate (Carafate) 1 gm TIDAC PO Last administered on 11/15/19 09:11; Start 11/01/19 at 17:30 Tramadol HCl (Ultram) 50 mg PRN Q8HRS PRN PO PAIN; Start 11/01/19 at 16:30; Stop 11/01/19 at 19:43; Status DC Insulin Glargine (Lantus Syringe) 30 unit QHS SQ Last administered on 11/06/19at 21:16; Start 11/01/19 at 21:00; Stop 11/07/19 at 15:56; Status DC Ondansetron HCl (Zofran Odt) 8 mg PRN Q8HRS PRN PO NAUSEA/VOMITING Last administered on 11/14/19 17:23; Start 11/01/19 at 17:15 Polyethylene Glycol (miraLAX PACKET) 17 gm PRN DAILY PRN PO CONSTIPATION, 1ST CHOICE Last administered on 11/15/19 09:14; Start 11/01/19 at 17:11 Atorvastatin Calcium (Lipitor) 80 mg QHS PO Last administered on 11/14/19 21:44; Start 11/01/19 at 21:00 Insulin Human Lispro (HumaLOG) 0-9 UNITS TIDAC SQ Last administered on 11/07/19at 12:20; Start 11/01/19 at 16:30; Stop 11/07/19 at 15:56; Status DC Dextrose (Dextrose 50%-Water Syringe) 12.5 gm PRN Q15MIN PRN IV SEE COMMENTS; Start 11/01/19 at 16:30; Stop 11/12/19 at 15:36; Status DC Ondansetron HCl (Zofran) 4 mg PRN Q8HRS PRN IV NAUSEA/VOMITING; Start 11/01/19 at 16:30; Stop 11/02/19 at 16:29; Status DC Alprazolam (Xanax) 0.25 mg PRN TID PRN PO anxiety Last administered on 11/15/19at 10:45; Start 11/01/19 at 17:11 Miscellaneous (Lidoderm Patch Removal) 1 ea QHS MC ; Start 11/01/19 at 21:00; Stop 11/01/19 at 20:34; Status DC Ceftriaxone Sodium (Rocephin) 1 gm QHS IVP Last administered on 11/14/19at 21:44; Start 11/01/19 at 18:45 Tramadol HCl (Ultram) 50 mg PRN Q8HRS PRN PO MILD PAIN 1-3 Last administered on 11/15/19at 10:10; Start 11/01/19 at 19:45 Hydromorphone HCl (Dilaudid) 1 mg PRN Q4HRS PRN IV SEVERE PAIN Last ad ministered on 11/15/19at 10:42; Start 11/01/19 at 20:15 Lidocaine (Lidoderm) 1 patch QHS TP Last administered on 11/14/19 08:19; Start 11/01/19 at 21:00 Miscellaneous (Lidoderm Patch Removal) 1 ea DAILY MC Last administered on 11/15/19at 09:00; Start 11/02/19 at 09:00 Albumin Human 500 ml @ 125 mls/hr 1X ONCE IV ; Start 11/02/19 at 02:00; Stop 11/02/19 at 05:59; Status Cancel Acetaminophen (Tylenol) 650 mg 1X PRN PRN PO PRE-TRANSFUSION; Start 11/02/19 at 06:45; Stop 11/03/19 at 14:16; Status DC Diphenhydramine HCl (Benadryl Oral Elixir) 12.5 mg 1X PRN PRN PO PRE- TRANSFUSION; Start 11/02/19 at 06:45; Stop 11/03/19 at 14:16; Status DC Diphenhydramine HCl (Benadryl) 25 mg PRN 1X PRN PO PRE-TRANSFUSION; Start 11/02/19 at 06:45; Stop 11/03/19 at 14:16; Status DC Lactulose (LACTULOSE 300ML for RECTAL) 200 gm Q6HRS MA Last administered on 11/02/19at 18:00; Start 11/02/19 at 18:00; Stop 11/04/19 at 14:44; Status DC Sodium Chloride 1,000 ml @ 100 mls/hr Q10H IV Last administered on 11/13/19at 15:30; Start 11/02/19 at 12:00; Stop 11/14/19 at 11:28; Status DC Lactulose (Lactulose) 20 gm PRN DAILY PRN PO CONSTIPATION, 2ND CHOICE; Start 11/04/19 at 14:45 Oxycodone HCl (Roxicodone) 5 mg PRN Q6HRS PRN PO MODERATE TO SEVERE PAIN Last administered on 11/15/19at 05:30; Start 11/04/19 at 14:45 Lidocaine HCl (Buffered Lidocaine 1%) 3 ml STK-MED ONCE .ROUTE ; Start 11/05/19 at 08:13; Stop 11/05/19 at 08:13; Status DC Lidocaine HCl (Buffered Lidocaine 1%) 3 ml STK-MED ONCE .ROUTE ; Start 11/05/19 at 08:14; Stop 11/05/19 at 08:14; Status DC Midazolam HCl (Versed) 2 mg STK-MED ONCE .ROUTE ; Start 11/05/19 at 08:40; Stop 11/05/19 at 08:40; Status DC Fentanyl Citrate (Fentanyl 2ml Vial) 100 mcg STK-MED ONCE .ROUTE ; Start 11/05/19 at 08:40; Stop 11/05/19 at 08:41; Status DC Lidocaine HCl (Buffered Lidocaine 1%) 3 ml 1X ONCE IJ Last administered on 11/05/19at 08:45; Start 11/05/19 at 08:45; Stop 11/05/19 at 08:50; Status DC Midazolam HCl (Versed) 2 mg 1X ONCE IV Last administered on 11/05/19at 08:45; Start 11/05/19 at 08:45; Stop 11/05/19 at 08:50; Status DC Fentanyl Citrate (Fentanyl 2ml Vial) 100 mcg 1X ONCE IV Last administered on 11/05/19at 08:45; Start 11/05/19 at 08:45; Stop 11/05/19 at 08:50; Status DC Dexamethasone Sodium Phosphate (Decadron) 4 mg Q6HRS IVP Last administered on 11/15/19at 06:36; Start 11/06/19 at 09:00 Insulin Glargine (Lantus Syringe) 40 unit QHS SQ Last administered on 11/14/19at 21:56; Start 11/07/19 at 21:00 Insulin Human Lispro (HumaLOG) 10 units TIDAC SQ Last administered on 11/14/19at 17:31; Start 11/07/19 at 16:30; Stop 11/15/19 at 08:16; Status DC Insulin Human Lispro (HumaLOG) 0-9 UNITS TIDWMEALS SQ Last administered on 11/11/19at 17:13; Start 11/07/19 at 17:00; Stop 11/12/19 at 15:37; Status DC Insulin Human Lispro (HumaLOG) 19 units 1X ONCE SQ Last administered on 11/09/19at 12:41; Start 11/09/19 at 12:15; Stop 11/09/19 at 12:16; Status DC Insulin Human Lispro (HumaLOG) 5 units 1X ONCE SQ Last administered on 11/09/19at 13:52; Start 11/09/19 at 13:30; Stop 11/09/19 at 13:31; Status DC Non-Formulary Medication 1 ea DAILY PO ; Start 11/09/19 at 16:30; Status Cancel Ondansetron HCl (Zofran) 4 mg PRN Q6HRS PRN IV NAUSEA/VOMITING; Start 11/12/19 at 07:00; Stop 11/12/19 at 19:56; Status DC Fentanyl Citrate (Fentanyl 2ml Vial) 25 mcg PRN Q5MIN PRN IV MILD PAIN 1-3; Start 11/12/19 at 07:00; Stop 11/12/19 at 19:56; Status DC Fentanyl Citrate (Fentanyl 2ml Vial) 50 mcg PRN Q5MIN PRN IV MODERATE TO SEVERE PAIN; Start 11/12/19 at 07:00; Stop 11/12/19 at 19:56; Status DC Morphine Sulfate (Morphine Sulfate) 1 mg PRN Q10MIN PRN IV SEVERE PAIN 7-10; Start 11/12/19 at 07:00; Stop 11/09/19 at 17:30; Status DC Ringer's Solution 1,000 ml @ 30 mls/hr Q24H IV Last administered on 11/12/19at 10:00; Start 11/12/19 at 07:00; Stop 11/12/19 at 18:59; Status DC Lidocaine HCl (Xylocaine-Mpf 1% 2ml Vial) 2 ml PRN 1X PRN ID PRIOR TO IV START; Start 11/12/19 at 07:00; Stop 11/12/19 at 19:56; Status DC Hydromorphone HCl (Dilaudid) 0.5 mg PRN Q10MIN PRN IV SEV PAIN, Second choice; Start 11/12/19 at 07:00; Stop 11/12/19 at 19:56; Status DC Prochlorperazine Edisylate (Compazine) 5 mg PACU PRN PRN IV NAUSEA, MRX1; Start 11/12/19 at 07:00; Stop 11/12/19 at 19:56; Status DC Pantoprazole Sodium (Protonix) 40 mg DAILYAC PO Last administered on 11/14/19at 08:19; Start 11/09/19 at 18:30; Stop 11/15/19 at 09:25; Status DC Levetiracetam (Keppra) 500 mg BID PO Last administered on 11/15/19at 09:11; Start 11/09/19 at 21:00 Non-Formulary Medication 1 ea DAILY PO Last administered on 11/15/19at 09:00; Start 11/12/19 at 09:00 Insulin Human Lispro (HumaLOG) 8 units 1X ONCE SQ Last administered on 11/10/19at 12:32; Start 11/10/19 at 12:15; Stop 11/10/19 at 12:16; Status DC Propofol 20 ml @ As Directed STK-MED ONCE IV ; Start 11/12/19 at 07:48; Stop 11/12/19 at 07:48; Status DC Dexamethasone Sodium Phosphate (Decadron) 20 mg STK-MED ONCE .ROUTE ; Start 11/12/19 at 07:48; Stop 11/12/19 at 07:48; Status DC Lidocaine HCl (Lidocaine Pf 2% Vial) 5 ml STK-MED ONCE .ROUTE ; Start 11/12/19 at 07:48; Stop 11/12/19 at 07:48; Status DC Ondansetron HCl (Zofran) 4 mg STK-MED ONCE .ROUTE ; Start 11/12/19 at 07:48; Stop 11/12/19 at 07:48; Status DC Phenylephrine HCl (Tony-Synephrine Inj) 10 mg STK-MED ONCE .ROUTE ; Start 11/12/19 at 07:48; Stop 11/12/19 at 07:48; Status DC Propofol 50 ml @ As Directed STK-MED ONCE IV ; Start 11/12/19 at 07:48; Stop 11/12/19 at 07:48; Status DC Rocuronium Andrews (Zemuron) 50 mg STK-MED ONCE .ROUTE ; Start 11/12/19 at 07:48; Stop 11/12/19 at 07:48; Status DC Remifentanil HCl (Ultiva) 2 mg STK-MED ONCE IV ; Start 11/12/19 at 07:48; Stop 11/12/19 at 07:49; Status DC Sodium Chloride (SODIUM CHLORIDE 20ml) 20 ml STK-MED ONCE IJ ; Start 11/12/19 at 07:49; Stop 11/12/19 at 07:49; Status DC Multi-Ingred Cream/Lotion/Oil/ Oint (Artificial Tears Eye Ointment) 7 raza STK- MED ONCE .ROUTE ; Start 11/12/19 at 07:49; Stop 11/12/19 at 07:49; Status DC Bacitracin 29245 unit/Sodium Chloride 1,000 ml @ 1,000 mls/hr 1X ONCE IRR Last administered on 11/12/19at 11:26; Start 11/12/19 at 07:57; Stop 11/12/19 at 08:56; Status DC Sodium Chloride (SODIUM CHLORIDE 20ml) 20 ml STK-MED ONCE IJ ; Start 11/12/19 at 07:57; Stop 11/12/19 at 07:57; Status DC Gelatin (Gelfoam Size 100) 1 each STK-MED ONCE .ROUTE Last administered on 11/12/19 11:26; Start 11/12/19 at 07:59; Stop 11/12/19 at 07:59; Status DC Cellulose (Surgicel Hemostat 4x8) 1 each STK-MED ONCE .ROUTE Last administered on 11/12/19at 12:01; Start 11/12/19 at 07:59; Stop 11/12/19 at 08:00; Status DC Lidocaine/ Epinephrine (LIDOCAINE 1%-EPI 1:100,000 Multi-Dose) 20 ml STK-MED ONCE .ROUTE Last administered on 11/12/19at 11:26; Start 11/12/19 at 07:59; Stop 11/12/19 at 08:00; Status DC Thrombin 20,000 unit STK-MED ONCE TP Last administered on 11/12/19 11:26; Start 11/12/19 at 08:00; Stop 11/12/19 at 08:00; Status DC Bacitracin (Bacitracin Zinc Oint Pkt) 1 pkt STK-MED ONCE TP ; Start 11/12/19 at 08:00; Stop 11/12/19 at 08:00; Status DC Propofol 100 ml @ As Directed STK-MED ONCE IV ; Start 11/12/19 at 08:02; Stop 11/12/19 at 08:02; Status DC Insulin Human Lispro (HumaLOG) 11 units 1X ONCE SQ Last administered on 11/12/19at 08:15; Start 11/12/19 at 08:15; Stop 11/12/19 at 08:16; Status DC Gadoterate Meglumine (Dotarem) 24.8 ml 1X ONCE IVP Last administered on 11/12/19at 08:15; Start 11/12/19 at 08:15; Stop 11/12/19 at 08:16; Status DC Insulin Human Regular 100 unit/ Sodium Chloride 101 ml @ 12.484 mls/ hr ONCE ONCE IV ; Start 11/12/19 at 08:15; Stop 11/12/19 at 16:20; Status DC Desflurane (Suprane) 90 ml STK-MED ONCE IH ; Start 11/12/19 at 08:11; Stop 11/12/19 at 08:11; Status DC Fentanyl Citrate (Fentanyl 2ml Vial) 100 mcg STK-MED ONCE .ROUTE ; Start 11/12/19 at 08:20; Stop 11/12/19 at 08:20; Status DC Midazolam HCl (Versed) 2 mg STK-MED ONCE .ROUTE ; Start 11/12/19 at 08:20; Stop 11/12/19 at 08:20; Status DC Rocuronium Andrews (Zemuron) 50 mg STK-MED ONCE .ROUTE ; Start 11/12/19 at 09:11; Stop 11/12/19 at 09:12; Status DC Mannitol (Mannitol) 12.5 g STK-MED ONCE .ROUTE ; Start 11/12/19 at 09:22; Stop 11/12/19 at 09:23; Status DC Propofol 100 ml @ As Directed STK-MED ONCE IV ; Start 11/12/19 at 09:22; Stop 11/12/19 at 09:23; Status DC Lidocaine HCl (Xylocaine-Mpf 1% 2ml Vial) 2 ml STK-MED ONCE .ROUTE ; Start 11/12/19 at 09:24; Stop 11/12/19 at 09:24; Status DC Cefazolin Sodium 3 gm/Dextrose 100 ml @ 200 mls/hr 1X PREOP ONCE IV Last administered on 11/12/19at 10:53; Start 11/12/19 at 10:30; Stop 11/12/19 at 10:59; Status DC Gelatin (Gelfoam Size 12-7mm) 1 each STK-MED ONCE .ROUTE Last administered on 11/12/19at 12:03; Start 11/12/19 at 11:59; Stop 11/12/19 at 12:01; Status DC Thrombin 20,000 unit STK-MED ONCE TP Last administered on 11/12/19at 12:04; Start 11/12/19 at 12:00; Stop 11/12/19 at 12:01; Status DC Gelatin (Gelfoam Size 100) 1 each STK-MED ONCE .ROUTE Last administered on 11/12/19at 12:25; Start 11/12/19 at 12:26; Stop 11/12/19 at 12:26; Status DC Gelatin (Gelfoam Size 12-7mm) 1 each STK-MED ONCE .ROUTE Last administered on 11/12/19at 13:35; Start 11/12/19 at 13:32; Stop 11/12/19 at 13:33; Status DC Thrombin 20,000 unit STK-MED ONCE TP Last administered on 11/12/19at 13:35; Start 11/12/19 at 13:32; Stop 11/12/19 at 13:33; Status DC Gelatin (Gelfoam Size 12-7mm) 1 each STK-MED ONCE .ROUTE Last administered on 11/12/19at 13:55; Start 11/12/19 at 13:55; Stop 11/12/19 at 13:55; Status DC Gelatin (Gelfoam Size 12-7mm) 1 each STK-MED ONCE .ROUTE Last administered on 11/12/19at 13:59; Start 11/12/19 at 13:59; Stop 11/12/19 at 13:59; Status DC Labetalol HCl (Normodyne Iv Push) 5 mg PRN Q15MIN PRN IVP HYPERTENSION; Start 11/12/19 at 15:15 Nicardipine HCl 50 mg/Sodium Chloride 250 ml @ 25 mls/hr TITRATE PRN IV SBP 90-140; Start 11/12/19 at 15:15; Stop 11/15/19 at 08:16; Status DC Hydralazine HCl (Apresoline Inj) 5 mg PRN Q6HRS PRN IVP TO KEEP SBP<140mmHg; Start 11/12/19 at 15:15 Al Hydroxide/Mg Hydroxide (Mylanta Plus Xs) 30 ml PRN Q3HRS PRN PO HEARTBURN / GAS; Start 11/12/19 at 15:15 Calcium Carbonate/ Glycine (Tums) 500 mg PRN Q3HRS PRN PO INDIGESTION; Start 11/12/19 at 15:15 Diphenhydramine HCl (Benadryl) 25 mg PRN Q6HRS PRN PO ITCHING; Start 11/12/19 at 15:15 Diphenhydramine HCl (Benadryl) 25 mg PRN Q6HRS PRN IV ITCHING; Start 11/12/19 at 15:15 Sodium Chloride (Normal Saline Flush) 3 ml QSHIFT PRN IV AFTER MEDS AND BLOOD DRAWS; Start 11/12/19 at 15:15 Insulin Human Lispro (HumaLOG) 0-5 UNITS TIDWMEALS SQ Last administered on 11/15/19at 09:21; Start 11/12/19 at 17:00 Dextrose (Dextrose 50%-Water Syringe) 12.5 gm PRN Q15MIN PRN IV SEE COMMENTS; Start 11/12/19 at 15:15 Dextrose (Iv Dextrose 5%) 250 ml PRN Q15MIN PRN IV SEE COMMENTS; Start 11/12/19 at 15:15 Hydromorphone HCl (Dilaudid) 0.2 mg PRN Q1HR PRN IV MODERATE PAIN; Start 11/12/19 at 15:15 Insulin Human Lispro (HumaLOG VIAL for OP,RR ONLY) 0-10 units PRN Q1HR PRN SQ PER PROTOCOL Last administered on 11/12/19at 15:50; Start 11/12/19 at 16:00; Stop 11/12/19 at 19:54; Status DC Insulin Human Lispro (HumaLOG VIAL for OP,RR ONLY) 4 unit 1X ONCE SQ ; Start 11/12/19 at 16:45; Stop 11/12/19 at 16:46; Status DC Ferrous Sulfate (Iron Oral Solution) 300 mg QD PO Last administered on 11/15/19at 10:10; Start 11/13/19 at 10:00 Gadoterate Meglumine (Dotarem) 10 ml 1X ONCE IVP Last administered on 11/13/19at 15:00; Start 11/13/19 at 14:45; Stop 11/13/19 at 14:48; Status DC Gadoterate Meglumine (Dotarem) 15 ml 1X ONCE IVP Last administered on 11/13/19at 15:00; Start 11/13/19 at 14:45; Stop 11/13/19 at 14:48; Status DC Insulin Human Lispro (HumaLOG) 15 units TIDAC SQ Last administered on 11/15/19at 08:15; Start 11/15/19 at 08:15 Insulin Glargine (Lantus Syringe) 20 unit DAILY SQ Last administered on 11/15/19at 09:20; Start 11/15/19 at 09:00 Enoxaparin Sodium (Lovenox 40mg Syringe) 40 mg Q12H SQ Last administered on 11/15/19at 11:01; Start 11/15/19 at 10:00 Active Scripts Active Enoxaparin Sodium 120 Mg/0.8 Ml Disp.syrin 120 Mg SQ Q12HR 28 Days Dexamethasone 4 Mg Tablet 4 Mg PO BID 14 Days Culturelle (Lactobacillus Rhamnosus Gg) 1 Each Cap.sprink 1 Cap PO BID 30 Days Amlodipine Besylate 5 Mg Tablet 5 Mg PO DAILY 30 Days Cefdinir 300 Mg Capsule 300 Mg PO BID 10 Days Reported Cymbalta (Duloxetine Hcl) 60 Mg Capsule.dr 1 Cap PO BID Lyrica (Pregabalin) 150 Mg Capsule 1 Cap PO BID Novolog (Insulin Aspart) 100 Unit/1 Ml Cartridge 10-45 Unit SQ QIDACHS Levemir (Insulin Detemir) 100 Unit/1 Ml Vial 30 Unit SQ HS Linzess (Linaclotide) 145 Mcg Capsule 145 Mcg PO PRN PRN Crestor (Rosuvastatin Calcium) 40 Mg Tablet 0.5 Tab PO DAILY Polyethylene Glycol 3350 2,500 Gm Powder 17 Gm PO PRN PRN Xanax (Alprazolam) 1 Mg Tablet 1 Tab PO TID Restasis (Cyclosporine) 1 Each Droperette 1 Drop EACHEYE BID Proair Hfa Inhaler (Albuterol Sulfate) 8.5 Gm Hfa.aer.ad 1 Puff INH PRN Q6HRS PRN Tramadol Hcl 50 Mg Tablet 1 Tab PO PRN Q8HRS PRN Ondansetron Hcl 4 Mg Tablet 2 Tab PO PRN Q8HRS PRN Nystatin 15 Gm Powder 1 Raza TP BID Lidocaine PATCH (Lidocaine) 1 Each Adh..patch 1 Each TP DAILY Fluticasone Propionate Nasal Sunman (Fluticasone Propionate) 16 Gm Sunman.susp 2 Sunman NS DAILY Percocet 5-325 Mg Tablet (Oxycodone/Acetaminophen) 1 Each Tablet 1-2 Tab PO Q4-6HRS PRN LAST DOSE AT NEXT DOSE Senna-Docusate Sodium Tablet (Sennosides/Docusate Sodium) 1 Each Tablet 1 Each PO BID LAST DOSE THIS AM NEXT DOSE TONIGHT Robaxin-750 (Methocarbamol) 750 Mg Tablet 1 Tab PO TID LAST DOSE AT 1400 (2PM) MAY HAVE THE NEXT DOSE AT 10 PM Protonix (Pantoprazole Sodium) 40 Mg Tablet.dr 40 Mg PO DAILY LST DOSE THIS AM NEXT DOSE TOMORROW AM Carafate (Sucralfate) 1 Gm Tablet 1 Tab PO TID Meds not given this hospital admission. May resume home medications as approved by Physician. MAY TAKE WHEN AVAILABLE Xarelto (Rivaroxaban) 15 Mg Tablet 15 Mg PO DAILY Meds not given this hospital admission. May resume home medications as approved by Physician. MAY RESUME WHEN AVAILABLE Metoprolol Succinate ( Xl ) (Metoprolol Succinate) 100 Mg Tab.er.24h 100 Mg PO HS LAST DOSE THIS AM NEXT DOSE TOMORROW AM Vitals/I & O Vital Sign - Last 24 Hours 11/14/19 11/14/19 11/14/19 11/14/19 11:24 12:00 12:00 13:57 Temp 98.1 98.1 Pulse 89 Resp 14 B/P (MAP) 111/64 (80) Pulse Ox 97 97 O2 Delivery Room Air Room Air Room Air Room Air O2 Flow Rate 3.0 11/14/19 11/14/19 11/14/19 11/14/19 13:57 13:57 13:57 14:00 Pulse Ox 97 97 97 O2 Delivery Room Air Room Air Room Air Nasal Cannula O2 Flow Rate 3.0 3.0 3.0 3.0 11/14/19 11/14/19 11/14/19 11/14/19 15:29 15:37 16:50 17:24 Temp 97.7 97.7 Pulse 89 Resp 18 B/P (MAP) 97/58 (71) Pulse Ox 97 96 96 96 O2 Delivery Room Air Room Air Nasal Cannula Nasal Cannula O2 Flow Rate 3.0 3.0 3.0 11/14/19 11/14/19 11/14/19 11/14/19 18:19 19:00 20:05 20:31 Temp 98.1 98.1 Pulse 106 Resp 14 20 B/P (MAP) 110/63 (79) Pulse Ox 96 95 O2 Delivery Nasal Cannula Room Air Room Air Room Air O2 Flow Rate 3.0 11/14/19 11/14/19 11/14/1911/14/19 21:31 21:43 21:45 22:13 Pulse 106 Resp 20 20 20 B/P (MAP) 110/63 O2 Delivery Room Air Room Air Room Air 11/14/19 11/15/19 11/15/19 11/15/19 23:00 02:16 02:46 03:00 Temp 99.0 98.2 99.0 98.2 Pulse 96 74 Resp 14 20 20 18 B/P (MAP) 106/62 (77) 109/60 (76) Pulse Ox 97 98 O2 Delivery Nasal Cannula Nasal Cannula Nasal Cannula Nasal Cannula O2 Flow Rate 2.0 2.0 2.0 2.0 11/15/19 11/15/19 11/15/19 11/15/19 05:30 06:30 06:36 07:00 Temp 98.4 98.4 Pulse 64 Resp 20 20 20 18 B/P (MAP) 106/63 (77) Pulse Ox 95 O2 Delivery Room Air Nasal Cannula Nasal Cannula Room Air O2 Flow Rate 2.0 2.0 11/15/19 11/15/19 11/15/19 11/15/19 07:06 08:00 10:10 10:42 Resp 20 16 22 O2 Delivery Nasal Cannula Room Air Room Air Room Air O2 Flow Rate 2.0 Intake and Output 11/14/19 11/14/19 11/15/19 15:00 23:00 07:00 Intake Total 240 ml 120 ml Output Total 1000 ml 450 ml 650 ml Balance -760 ml -330 ml -650 ml Nutrition Consultation Dietary Evaluation: Recommendations by RD: Dietary education by RD, Increase Calorie Intake, Protein supplementation Comments: REC continue ADA/cardiac diet ,glucerna Expected Outcomes/Goals: PO intake to meet >75% est needs- met at times, goal ongoing Interpretation of weight loss: >5% in 1 month Malnutrition Findings: Food and Nutrition Intake (Sev: <50% est energy req 5days Weight Status: Morbidly Obese BINH WELCH MD Nov 15, 2019 11:11
--- NOTE | 2019-11-15 12:10 | PDOC ---
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 Vitals Vitals Vital Signs Date Time Temp Pulse Resp B/P (MAP) Pulse Ox O2 Delivery O2 Flow Rate FiO2 11/15/19 11:07 16 Room Air 11/15/19 11:00 98.1 84 111/62 (78) 95 98.1 11/15/19 07:06 2.0 Physical Exam General: Cooperative, mild distress, Other (extremely weak and depressed) Heart: Regular rate, Normal S1, Normal S2 Lungs: Wheezing Abdomen: Soft, Other (eechymosis improving) Extremities: No clubbing, No cyanosis, No edema, Normal pulses, No tenderness/swelling Skin: No rashes, No breakdown, Other (Ecchymosis on right abdomen) Labs LABS Laboratory Tests Test 11/14/19 16:52 11/14/19 20:46 11/15/19 08:08 Glucose (Fingerstick) 320 mg/dL (70-99) 378 mg/dL (70-99) 308 mg/dL (70-99) Review of Systems Review of Systems weak, all else 14 pt neg, no headache, able to move rt leg Assessment and Plan Assessmemt and Plan Problems Medical Problems: (1) Abdominal hemorrhage Status: Acute (2) Generalized weakness Status: Acute (3) Lactic acidosis Status: Acute (4) Leukocytosis Status: Acute Comment Review of Relevant I have reviewed the following items mustapha (where applicable) has been applied. Labs Laboratory Tests Test 11/13/19 16:58 11/13/19 21:02 11/14/19 06:10 11/14/19 11:46 Glucose (Fingerstick) 214 mg/dL (70-99) 192 mg/dL (70-99) 263 mg/dL (70-99) White Blood Count 31.4 x10^3/uL (4.0-11.0) Red Blood Count 2.72 x10^6/uL (3.50-5.40) Hemoglobin 8.0 g/dL (12.0-15.5) Hematocrit 25.2 % (36.0-47.0) Mean Corpuscular Volume 92 fL (79-100) Mean Corpuscular Hemoglobin 30 pg (25-35) Mean Corpuscular Hemoglobin Concent 32 g/dL (31-37) Red Cell Distribution Width 18.2 % (11.5-14.5) Platelet Count 361 x10^3/uL (140-400) Sodium Level 136 mmol/L (136-145) Potassium Level 4.0 mmol/L (3.5-5.1) Chloride Level 101 mmol/L (98-107) Carbon Dioxide Level 30 mmol/L (21-32) Anion Gap 5 (6-14) Blood Urea Nitrogen 24 mg/dL (7-20) Creatinine 0.5 mg/dL (0.6-1.0) Estimated GFR (Cockcroft-Gault) 132.2 BUN/Creatinine Ratio 48 (6-20) Glucose Level 279 mg/dL (70-99) Calcium Level 7.8 mg/dL (8.5-10.1) Total Bilirubin 1.0 mg/dL (0.2-1.0) Aspartate Amino Transf (AST/SGOT) 23 U/L (15-37) Alanine Aminotransferase (ALT/SGPT) 56 U/L (14-59) Alkaline Phosphatase 58 U/L (46-116) Total Protein 5.0 g/dL (6.4-8.2) Albumin 2.2 g/dL (3.4-5.0) Albumin/Globulin Ratio 0.8 (1.0-1.7) Test 11/14/19 16:52 11/14/19 20:46 11/15/19 08:08 Glucose (Fingerstick) 320 mg/dL (70-99) 378 mg/dL (70-99) 308 mg/dL (70-99) Laboratory Tests Test 11/14/19 16:52 11/14/19 20:46 11/15/19 08:08 Glucose (Fingerstick) 320 mg/dL (70-99) 378 mg/dL (70-99) 308 mg/dL (70-99) Microbiology 11/10/19 Urine Culture - Preliminary, Resulted 11/10/19 Urine Culture Result 1 (СВЕТЛАНА) - Preliminary, Resulted 11/01/19 Blood Culture - Final, Complete NO GROWTH AFTER 5 DAYS Medications Current Medications Sodium Chloride 500 ml @ 500 mls/hr 1X ONCE IV Last administered on 11/01/19at 13:00; Start 11/01/19 at 13:00; Stop 11/01/19 at 13:59; Status DC Ondansetron HCl (Zofran) 4 mg 1X ONCE IV Last administered on 11/01/19at 13:26; Start 11/01/19 at 13:00; Stop 11/01/19 at 13:13; Status DC Hydromorphone HCl (Dilaudid) 0.5 mg 1X STAT IVP Last administered on 11/01/19at 13:26; Start 11/01/19 at 12:59; Stop 11/01/19 at 13:13; Status DC Iohexol (Omnipaque 300 Mg/ml) 75 ml 1X ONCE IV Last administered on 11/01/19at 14:08; Start 11/01/19 at 13:45; Stop 11/01/19 at 13:46; Status DC Info (CONTRAST GIVEN -- Rx MONITORING) 1 each PRN DAILY PRN MC SEE COMMENTS; Start 11/01/19 at 14:00; Stop 11/03/19 at 13:59; Status DC Hydromorphone HCl (Dilaudid) 0.5 mg 1X STAT IVP Last administered on 11/01/19at 16:53; Start 11/01/19 at 16:21; Stop 11/01/19 at 16:23; Status DC Sodium Chloride 1,000 ml @ 1,000 mls/hr 1X ONCE IV Last administered on 11/01/19at 16:30; Start 11/01/19 at 16:30; Stop 11/01/19 at 17:29; Status DC Sodium Chloride 500 ml @ 500 mls/hr 1X ONCE IV Last administered on 11/01/19at 16:30; Start 11/01/19 at 16:30; Stop 11/01/19 at 17:29; Status DC Albuterol Sulfate (Ventolin Neb Soln) 2.5 mg PRN Q6HRS PRN INH SHORTNESS OF BREATH; Start 11/01/19 at 16:30; Status Cancel Alprazolam (Xanax) 0.25 mg PRN TID PRN PO anxiety; Start 11/01/19 at 16:30; Stop 11/01/19 at 17:11; Status DC Amlodipine Besylate (Norvasc) 5 mg DAILY PO Last administered on 11/11/19at 09:19; Start 11/02/19 at 09:00 Cyclosporine (Restasis) 1 drop BID OU Last administered on 11/15/19at 09:09; Start 11/01/19 at 21:00 Fluticasone Propionate (Flonase) 2 spray DAILY NS Last administered on 11/11/19at 08:19; Start 11/02/19 at 09:00 Lactobacillus Rhamnosus (Culturelle) 1 cap BID PO Last administered on 11/09/19at 08:28; Start 11/01/19 at 21:00; Stop 11/09/19 at 16:57; Status DC Lidocaine (Lidoderm) 1 patch DAILY TP ; Start 11/02/19 at 09:00; Stop 11/01/19 at 20:34; Status DC Metoprolol Succinate (Toprol Xl) 100 mg HS PO Last administered on 11/14/19at 21:45; Start 11/01/19 at 21:00 Nystatin (Nystop) 1 raza BID TP Last administered on 11/15/19at 09:10; Start 11/01/19 at 21:00 Pantoprazole Sodium (Protonix) 40 mg DAILYAC PO Last administered on 11/09/19at 08:28; Start 11/02/19 at 07:30; Stop 11/09/19 at 16:54; Status DC Senna/Docusate Sodium (Senna Plus) 1 tab BID PO Last administered on 11/15/19at 09:11; Start 11/01/19 at 21:00 Sucralfate (Carafate) 1 gm TIDAC PO Last administered on 11/15/19 09:11; Start 11/01/19 at 17:30 Tramadol HCl (Ultram) 50 mg PRN Q8HRS PRN PO PAIN; Start 11/01/19 at 16:30; Stop 11/01/19 at 19:43; Status DC Insulin Glargine (Lantus Syringe) 30 unit QHS SQ Last administered on 21:16; Start 11/01/19 at 21:00; Stop 11/07/19 at 15:56; Status DC Ondansetron HCl (Zofran Odt) 8 mg PRN Q8HRS PRN PO NAUSEA/VOMITING Last administered on 11/14/19 17:23; Start 11/01/19 at 17:15 Polyethylene Glycol (miraLAX PACKET) 17 gm PRN DAILY PRN PO CONSTIPATION, 1ST CHOICE Last administered on 11/15/19 09:14; Start 11/01/19 at 17:11 Atorvastatin Calcium (Lipitor) 80 mg QHS PO Last administered on 11/14/19 21:44; Start 11/01/19 at 21:00 Insulin Human Lispro (HumaLOG) 0-9 UNITS TIDAC SQ Last administered on 11/07/19at 12:20; Start 11/01/19 at 16:30; Stop 11/07/19 at 15:56; Status DC Dextrose (Dextrose 50%-Water Syringe) 12.5 gm PRN Q15MIN PRN IV SEE COMMENTS; Start 11/01/19 at 16:30; Stop 11/12/19 at 15:36; Status DC Ondansetron HCl (Zofran) 4 mg PRN Q8HRS PRN IV NAUSEA/VOMITING; Start 11/01/19 at 16:30; Stop 11/02/19 at 16:29; Status DC Alprazolam (Xanax) 0.25 mg PRN TID PRN PO anxiety Last administered on 11/15/19at 10:45; Start 11/01/19 at 17:11 Miscellaneous (Lidoderm Patch Removal) 1 ea QHS MC ; Start 11/01/19 at 21:00; Stop 11/01/19 at 20:34; Status DC Ceftriaxone Sodium (Rocephin) 1 gm QHS IVP Last administered on 12/25/19at 21:44; Start 11/01/19 at 18:45 Tramadol HCl (Ultram) 50 mg PRN Q8HRS PRN PO MILD PAIN 1-3 Last administered on 11/15/19at 10:10; Start 11/01/19 at 19:45 Hydromorphone HCl (Dilaudid) 1 mg PRN Q4HRS PRN IV SEVERE PAIN Last administered on 11/15/19at 10:42; Start 11/01/19 at 20:15 Lidocaine (Lidoderm) 1 patch QHS TP Last administered on 11/14/19at 08:19; Start 11/01/19 at 21:00 Miscellaneous (Lidoderm Patch Removal) 1 ea DAILY MC Last administered on 11/15/19at 09:00; Start 11/02/19 at 09:00 Albumin Human 500 ml @ 125 mls/hr 1X ONCE IV ; Start 11/02/19 at 02:00; Stop 11/02/19 at 05:59; Status Cancel Acetaminophen (Tylenol) 650 mg 1X PRN PRN PO PRE-TRANSFUSION; Start 11/02/19 at 06:45; Stop 11/03/19 at 14:16; Status DC Diphenhydramine HCl (Benadryl Oral Elixir) 12.5 mg 1X PRN PRN PO PRE- TRANSFUSION; Start 11/02/19 at 06:45; Stop 11/03/19 at 14:16; Status DC Diphenhydramine HCl (Benadryl) 25 mg PRN 1X PRN PO PRE-TRANSFUSION; Start 11/02/19 at 06:45; Stop 11/03/19 at 14:16; Status DC Lactulose (LACTULOSE 300ML for RECTAL) 200 gm Q6HRS DC Last administered on 11/02/19at 18:00; Start 11/02/19 at 18:00; Stop 11/04/19 at 14:44; Status DC Sodium Chloride 1,000 ml @ 100 mls/hr Q10H IV Last administered on 11/13/19at 15:30; Start 11/02/19 at 12:00; Stop 11/14/19 at 11:28; Status DC Lactulose (Lactulose) 20 gm PRN DAILY PRN PO CONSTIPATION, 2ND CHOICE; Start 11/04/19 at 14:45 Oxycodone HCl (Roxicodone) 5 mg PRN Q6HRS PRN PO MODERATE TO SEVERE PAIN Last administered on 11/15/19at 05:30; Start 11/04/19 at 14:45 Lidocaine HCl (Buffered Lidocaine 1%) 3 ml STK-MED ONCE .ROUTE ; Start 11/05/19 at 08:13; Stop 11/05/19 at 08:13; Status DC Lidocaine HCl (Buffered Lidocaine 1%) 3 ml STK-MED ONCE .ROUTE ; Start 11/05/19 at 08:14; Stop 11/05/19 at 08:14; Status DC Midazolam HCl (Versed) 2 mg STK-MED ONCE .ROUTE ; Start 11/05/19 at 08:40; Stop 11/05/19 at 08:40; Status DC Fentanyl Citrate (Fentanyl 2ml Vial) 100 mcg STK-MED ONCE .ROUTE ; Start 11/05 at 08:40; Stop 11/05/19 at 08:41; Status DC Lidocaine HCl (Buffered Lidocaine 1%) 3 ml 1X ONCE IJ Last administered on 1 01/06/19at 08:45; Start 11/05/19 at 08:45; Stop 11/05/19 at 08:50; Status DC Midazolam HCl (Versed) 2 mg 1X ONCE IV Last administered on 11/05/19at 08:45; Start 11/05/19 at 08:45; Stop 11/05/19 at 08:50; Status DC Fentanyl Citrate (Fentanyl 2ml Vial) 100 mcg 1X ONCE IV Last administered on 11/05/19at 08:45; Start 11/05/19 at 08:45; Stop 11/05/19 at 08:50; Status DC Dexamethasone Sodium Phosphate (Decadron) 4 mg Q6HRS IVP Last administered on 11/15/19at 06:36; Start 11/06/19 at 09:00 Insulin Glargine (Lantus Syringe) 40 unit QHS SQ Last administered on 11/14/19at 21:56; Start 11/07/19 at 21:00 Insulin Human Lispro (HumaLOG) 10 units TIDAC SQ Last administered on 11/14/19at 17:31; Start 11/07/19 at 16:30; Stop 11/15/19 at 08:16; Status DC Insulin Human Lispro (HumaLOG) 0-9 UNITS TIDWMEALS SQ Last administered on 11/11/19at 17:13; Start 11/07/19 at 17:00; Stop 11/12/19 at 15:37; Status DC Insulin Human Lispro (HumaLOG) 19 units 1X ONCE SQ Last administered on 11/09/19at 12:41; Start 11/09/19 at 12:15; Stop 11/09/19 at 12:16; Status DC Insulin Human Lispro (HumaLOG) 5 units 1X ONCE SQ Last administered on at 13:52; Start 11/09/19 at 13:30; Stop 11/09/19 at 13:31; Status DC Non-Formulary Medication 1 ea DAILY PO ; Start 11/09/19 at 16:30; Status Cancel Ondansetron HCl (Zofran) 4 mg PRN Q6HRS PRN IV NAUSEA/VOMITING; Start 11/12/19 at 07:00; Stop 11/12/19 at 19:56; Status DC Fentanyl Citrate (Fentanyl 2ml Vial) 25 mcg PRN Q5MIN PRN IV MILD PAIN 1-3; Start 11/12/19 at 07:00; Stop 11/12/19 at 19:56; Status DC Fentanyl Citrate (Fentanyl 2ml Vial) 50 mcg PRN Q5MIN PRN IV MODERATE TO SEVERE PAIN; Start 11/12/19 at 07:00; Stop 11/12/19 at 19:56; Status DC Morphine Sulfate (Morphine Sulfate) 1 mg PRN Q10MIN PRN IV SEVERE PAIN 7-10; Start 11/12/19 at 07:00; Stop 11/09/19 at 17:30; Status DC Ringer's Solution 1,000 ml @ 30 mls/hr Q24H IV Last administered on 11/12/19at 10:00; Start 11/12/19 at 07:00; Stop 11/12/19 at 18:59; Status DC Lidocaine HCl (Xylocaine-Mpf 1% 2ml Vial) 2 ml PRN 1X PRN ID PRIOR TO IV START; Start 11/12/19 at 07:00; Stop 11/12/19 at 19:56; Status DC Hydromorphone HCl (Dilaudid) 0.5 mg PRN Q10MIN PRN IV SEV PAIN, Second choice; Start 11/12/19 at 07:00; Stop 11/12/19 at 19:56; Status DC Prochlorperazine Edisylate (Compazine) 5 mg PACU PRN PRN IV NAUSEA, MRX1; Start 11/12/19 at 07:00; Stop 11/12/19 at 19:56; Status DC Pantoprazole Sodium (Protonix) 40 mg DAILYAC PO Last administered on 11/14/19at 08:19; Start 11/09/19 at 18:30; Stop 11/15/19 at 09:25; Status DC Levetiracetam (Keppra) 500 mg BID PO Last administered on 11/15/19at 09:11; Start 11/09/19 at 21:00 Non-Formulary Medication 1 ea DAILY PO Last administered on 11/15/19at 09:00; Start 11/12/19 at 09:00 Insulin Human Lispro (HumaLOG) 8 units 1X ONCE SQ Last administered on 11/10/19at 12:32; Start 11/10/19 at 12:15; Stop 11/10/19 at 12:16; Status DC Propofol 20 ml @ As Directed STK-MED ONCE IV ; Start 11/12/19 at 07:48; Stop 11/12/19 at 07:48; Status DC Dexamethasone Sodium Phosphate (Decadron) 20 mg STK-MED ONCE .ROUTE ; Start 11/12/19 at 07:48; Stop 11/12/19 at 07:48; Status DC Lidocaine HCl (Lidocaine Pf 2% Vial) 5 ml STK-MED ONCE .ROUTE ; Start 11/12/19 at 07:48; Stop 11/12/19 at 07:48; Status DC Ondansetron HCl (Zofran) 4 mg STK-MED ONCE .ROUTE ; Start 11/12/19 at 07:48; Stop 11/12/19 at 07:48; Status DC Phenylephrine HCl (Tony-Synephrine Inj) 10 mg STK-MED ONCE .ROUTE ; Start 11/12/19 at 07:48; Stop 11/12/19 at 07:48; Status DC Propofol 50 ml @ As Directed STK-MED ONCE IV ; Start 11/12/19 at 07:48; Stop 11/12/19 at 07:48; Status DC Rocuronium [place] (Zemuron) 50 mg STK-MED ONCE .ROUTE ; Start 11/12/19 at 07:48; Stop 11/12/19 at 07:48; Status DC Remifentanil HCl (Ultiva) 2 mg STK-MED ONCE IV ; Start 11/12/19 at 07:48; Stop 11/12/19 at 07:49; Status DC Sodium Chloride (SODIUM CHLORIDE 20ml) 20 ml STK-MED ONCE IJ ; Start 11/12/19 at 07:49; Stop 11/12/19 at 07:49; Status DC Multi-Ingred Cream/Lotion/Oil/ Oint (Artificial Tears Eye Ointment) 7 raza STK- MED ONCE .ROUTE ; Start 11/12/19 at 07:49; Stop 11/12/19 at 07:49; Status DC Bacitracin 36481 unit/Sodium Chloride 1,000 ml @ 1,000 mls/hr 1X ONCE IRR Last administered on 11/12/19 11:26; Start 11/12/19 at 07:57; Stop 11/12/19 at 08:56; Status DC Sodium Chloride (SODIUM CHLORIDE 20ml) 20 ml STK-MED ONCE IJ ; Start 11/12/19 at 07:57; Stop 11/12/19 at 07:57; Status DC Gelatin (Gelfoam Size 100) 1 each STK-MED ONCE .ROUTE Last administered on 11/12/19 11:26; Start 11/12/19 at 07:59; Stop 11/12/19 at 07:59; Status DC Cellulose (Surgicel Hemostat 4x8) 1 each STK-MED ONCE .ROUTE Last administered on 11/12/19at 12:01; Start 11/12/19 at 07:59; Stop 11/12/19 at 08:00; Status DC Lidocaine/ Epinephrine (LIDOCAINE 1%-EPI 1:100,000 Multi-Dose) 20 ml STK-MED ONCE .ROUTE Last administered on 11/12/19 11:26; Start 11/12/19 at 07:59; Stop 11/12/19 at 08:00; Status DC Thrombin 20,000 unit STK-MED ONCE TP Last administered on 11/12/19 11:26; Start 11/12/19 at 08:00; Stop 11/12/19 at 08:00; Status DC Bacitracin (Bacitracin Zinc Oint Pkt) 1 pkt STK-MED ONCE TP ; Start 11/12/19 at 08:00; Stop 11/12/19 at 08:00; Status DC Propofol 100 ml @ As Directed STK-MED ONCE IV ; Start 11/12/19 at 08:02; Stop 11/12/19 at 08:02; Status DC Insulin Human Lispro (HumaLOG) 11 units 1X ONCE SQ Last administered on 11/12/19at 08:15; Start 11/12/19 at 08:15; Stop 11/12/19 at 08:16; Status DC Gadoterate Meglumine (Dotarem) 24.8 ml 1X ONCE IVP Last administered on 11/12/19at 08:15; Start 11/12/19 at 08:15; Stop 11/12/19 at 08:16; Status DC Insulin Human Regular 100 unit/ Sodium Chloride 101 ml @ 12.484 mls/ hr ONCE ONCE IV ; Start 11/12/19 at 08:15; Stop 11/12/19 at 16:20; Status DC Desflurane (Suprane) 90 ml STK-MED ONCE IH ; Start 11/12/19 at 08:11; Stop 11/12/19 at 08:11; Status DC Fentanyl Citrate (Fentanyl 2ml Vial) 100 mcg STK-MED ONCE .ROUTE ; Start 11/12/19 at 08:20; Stop 11/12/19 at 08:20; Status DC Midazolam HCl (Versed) 2 mg STK-MED ONCE .ROUTE ; Start 11/12/19 at 08:20; Stop 11/12/19 at 08:20; Status DC Rocuronium [place] (Zemuron) 50 mg STK-MED ONCE .ROUTE ; Start 11/12/19 at 09:11; Stop 11/12/19 at 09:12; Status DC Mannitol (Mannitol) 12.5 g STK-MED ONCE .ROUTE ; Start 11/12/19 at 09:22; Stop 11/12/19 at 09:23; Status DC Propofol 100 ml @ As Directed STK-MED ONCE IV ; Start 11/12/19 at 09:22; Stop 11/12/19 at 09:23; Status DC Lidocaine HCl (Xylocaine-Mpf 1% 2ml Vial) 2 ml STK-MED ONCE .ROUTE ; Start 11/12/19 at 09:24; Stop 12/23/19 at 09:24; Status DC Cefazolin Sodium 3 gm/Dextrose 100 ml @ 200 mls/hr 1X PREOP ONCE IV Last administered on 11/12/19at 10:53; Start 11/12/19 at 10:30; Stop 11/12/19 at 10:59; Status DC Gelatin (Gelfoam Size 12-7mm) 1 each STK-MED ONCE .ROUTE Last administered on 11/12/19 12:03; Start 11/12/19 at 11:59; Stop 11/12/19 at 12:01; Status DC Thrombin 20,000 unit STK-MED ONCE TP Last administered on 11/12/19 12:04; Start 11/12/19 at 12:00; Stop 11/12/19 at 12:01; Status DC Gelatin (Gelfoam Size 100) 1 each STK-MED ONCE .ROUTE Last administered on 11/12/19at 12:25; Start 11/12/19 at 12:26; Stop 11/12/19 at 12:26; Status DC Gelatin (Gelfoam Size 12-7mm) 1 each STK-MED ONCE .ROUTE Last administered on 11/12/19 13:35; Start 11/12/19 at 13:32; Stop 11/12/19 at 13:33; Status DC Thrombin 20,000 unit STK-MED ONCE TP Last administered on 11/12/19 13:35; Start 11/12/19 at 13:32; Stop 11/12/19 at 13:33; Status DC Gelatin (Gelfoam Size 12-7mm) 1 each STK-MED ONCE .ROUTE Last administered on 11/12/19at 13:55; Start 11/12/19 at 13:55; Stop 11/12/19 at 13:55; Status DC Gelatin (Gelfoam Size 12-7mm) 1 each STK-MED ONCE .ROUTE Last administered on 11/12/19at 13:59; Start 11/12/19 at 13:59; Stop 11/12/19 at 13:59; Status DC Labetalol HCl (Normodyne Iv Push) 5 mg PRN Q15MIN PRN IVP HYPERTENSION; Start 11/12/19 at 15:15 Nicardipine HCl 50 mg/Sodium Chloride 250 ml @ 25 mls/hr TITRATE PRN IV SBP 90-140; Start 11/12/19 at 15:15; Stop 11/15/19 at 08:16; Status DC Hydralazine HCl (Apresoline Inj) 5 mg PRN Q6HRS PRN IVP TO KEEP SBP<140mmHg; Start 11/12/19 at 15:15 Al Hydroxide/Mg Hydroxide (Mylanta Plus Xs) 30 ml PRN Q3HRS PRN PO HEARTBURN / GAS; Start 11/12/19 at 15:15 Calcium Carbonate/ Glycine (Tums) 500 mg PRN Q3HRS PRN PO INDIGESTION; Start 11/12/19 at 15:15 Diphenhydramine HCl (Benadryl) 25 mg PRN Q6HRS PRN PO ITCHING; Start 11/12/19 at 15:15 Diphenhydramine HCl (Benadryl) 25 mg PRN Q6HRS PRN IV ITCHING; Start 11/12/19 at 15:15 Sodium Chloride (Normal Saline Flush) 3 ml QSHIFT PRN IV AFTER MEDS AND BLOOD DRAWS; Start 11/12/19 at 15:15 Insulin Human Lispro (HumaLOG) 0-5 UNITS TIDWMEALS SQ Last administered on 11/15/19at 09:21; Start 11/12/19 at 17:00 Dextrose (Dextrose 50%-Water Syringe) 12.5 gm PRN Q15MIN PRN IV SEE COMMENTS; Start 11/12/19 at 15:15 Dextrose (Iv Dextrose 5%) 250 ml PRN Q15MIN PRN IV SEE COMMENTS; Start 11/12/19 at 15:15 Hydromorphone HCl (Dilaudid) 0.2 mg PRN Q1HR PRN IV MODERATE PAIN; Start 11/12/19 at 15:15 Insulin Human Lispro (HumaLOG VIAL for OP,RR ONLY) 0-10 units PRN Q1HR PRN SQ PER PROTOCOL Last administered on 11/12/19at 15:50; Start 11/12/19 at 16:00; Stop 11/12/19 at 19:54; Status DC Insulin Human Lispro (HumaLOG VIAL for OP,RR ONLY) 4 unit 1X ONCE SQ ; Start 11/12/19 at 16:45; Stop 11/12/19 at 16:46; Status DC Ferrous Sulfate (Iron Oral Solution) 300 mg QD PO Last administered on 11/15/19at 10:10; Start 11/13/19 at 10:00 Gadoterate Meglumine (Dotarem) 10 ml 1X ONCE IVP Last administered on 11/13/19at 15:00; Start 11/13/19 at 14:45; Stop 11/13/19 at 14:48; Status DC Gadoterate Meglumine (Dotarem) 15 ml 1X ONCE IVP Last administered on 11/13/19at 15:00; Start 11/13/19 at 14:45; Stop 11/13/19 at 14:48; Status DC Insulin Human Lispro (HumaLOG) 15 units TIDAC SQ Last administered on 11/15/19at 08:15; Start 11/15/19 at 08:15 Insulin Glargine (Lantus Syringe) 20 unit DAILY SQ Last administered on 11/15/19at 09:20; Start 11/15/19 at 09:00 Enoxaparin Sodium (Lovenox 40mg Syringe) 40 mg Q12H SQ Last administered on 11/15/19at 11:01; Start 11/15/19 at 10:00 Active Scripts Active Enoxaparin Sodium 120 Mg/0.8 Ml Disp.syrin 120 Mg SQ Q12HR 28 Days Dexamethasone 4 Mg Tablet 4 Mg PO BID 14 Days Culturelle (Lactobacillus Rhamnosus Gg) 1 Each Cap.sprink 1 Cap PO BID 30 Days Amlodipine Besylate 5 Mg Tablet 5 Mg PO DAILY 30 Days Cefdinir 300 Mg Capsule 300 Mg PO BID 10 Days Reported Cymbalta (Duloxetine Hcl) 60 Mg Capsule.dr 1 Cap PO BID Lyrica (Pregabalin) 150 Mg Capsule 1 Cap PO BID Novolog (Insulin Aspart) 100 Unit/1 Ml Cartridge 10-45 Unit SQ QIDACHS Levemir (Insulin Detemir) 100 Unit/1 Ml Vial 30 Unit SQ HS Linzess (Linaclotide) 145 Mcg Capsule 145 Mcg PO PRN PRN Crestor (Rosuvastatin Calcium) 40 Mg Tablet 0.5 Tab PO DAILY Polyethylene Glycol 3350 2,500 Gm Powder 17 Gm PO PRN PRN Xanax (Alprazolam) 1 Mg Tablet 1 Tab PO TID Restasis (Cyclosporine) 1 Each Droperette 1 Drop EACHEYE BID Proair Hfa Inhaler (Albuterol Sulfate) 8.5 Gm Hfa.aer.ad 1 Puff INH PRN Q6HRS PRN Tramadol Hcl 50 Mg Tablet 1 Tab PO PRN Q8HRS PRN Ondansetron Hcl 4 Mg Tablet 2 Tab PO PRN Q8HRS PRN Nystatin 15 Gm Powder 1 [place] TP BID Lidocaine PATCH (Lidocaine) 1 Each Adh..patch 1 Each TP DAILY Fluticasone Propionate Nasal [place] (Fluticasone Propionate) 16 Gm [place].susp 2 [place] NS DAILY Percocet 5-325 Mg Tablet (Oxycodone/Acetaminophen) 1 Each Tablet 1-2 Tab PO Q4-6HRS PRN LAST DOSE AT NEXT DOSE Senna-Docusate Sodium Tablet (Sennosides/Docusate Sodium) 1 Each Tablet 1 Each PO BID LAST DOSE THIS AM NEXT DOSE TONIGHT Robaxin-750 (Methocarbamol) 750 Mg Tablet 1 Tab PO TID LAST DOSE AT 1400 (2PM) MAY HAVE THE NEXT DOSE AT 10 PM Protonix (Pantoprazole Sodium) 40 Mg Tablet.dr 40 Mg PO DAILY LST DOSE THIS AM NEXT DOSE TOMORROW AM Carafate (Sucralfate) 1 Gm Tablet 1 Tab PO TID Meds not given this hospital admission. May resume home medications as approved by Physician. MAY TAKE WHEN AVAILABLE Xarelto (Rivaroxaban) 15 Mg Tablet 15 Mg PO DAILY Meds not given this hospital admission. May resume home medications as approved by Physician. MAY RESUME WHEN AVAILABLE Metoprolol Succinate ( Xl ) (Metoprolol Succinate) 100 Mg Tab.er.24h 100 Mg PO HS LAST DOSE THIS AM NEXT DOSE TOMORROW AM Vitals/I & O Vital Sign - Last 24 Hours 11/14/19 11/14/19 11/14/19 11/14/19 13:57 13:57 13:57 13:57 Pulse Ox 97 97 97 97 O2 Delivery Room Air Room Air Room Air Room Air O2 Flow Rate 3.0 3.0 3.0 3.0 11/14/19 11/14/19 11/14/19 11/14/19 14:00 15:29 15:37 16:50 Temp 97.7 97.7 Pulse 89 Resp 18 B/P (MAP) 97/58 (71) Pulse Ox 97 96 96 O2 Delivery Nasal Cannula Room Air Room Air Nasal Cannula O2 Flow Rate 3.0 3.0 3.0 11/14/19 11/14/19 11/14/19 11/14/19 17:24 18:19 19:00 20:05 Temp 98.1 98.1 Pulse 106 Resp 14 B/P (MAP) 110/63 (79) Pulse Ox 96 96 95 O2 Delivery Nasal Cannula Nasal Cannula Room Air Room Air O2 Flow Rate 3.0 3.0 11/14/19 11/14/19 11/14/19 11/14/19 20:31 21:31 21:43 21:45 Pulse 106 Resp 20 20 20 B/P (MAP) 110/63 O2 Delivery Room Air Room Air Room Air 11/14/19 11/14/19 11/15/19 11/15/19 22:13 23:00 02:16 02:46 Temp 99.0 99.0 Pulse 96 Resp 20 14 20 20 B/P (MAP) 106/62 (77) Pulse Ox 97 O2 Delivery Room Air Nasal Cannula Nasal Cannula Nasal Cannula O2 Flow Rate 2.0 2.0 2.0 11/15/19 11/15/19 11/15/19 11/15/19 03:00 05:30 06:30 06:36 Temp 98.2 98.2 Pulse 74 Resp 18 20 20 20 B/P (MAP) 109/60 (76) Pulse Ox 98 O2 Delivery Nasal Cannula Room Air Nasal Cannula Nasal Cannula O2 Flow Rate 2.0 2.0 2.0 11/15/19 11/15/19 11/15/19 11/15/19 07:00 07:06 08:00 10:10 Temp 98.4 98.4 Pulse 64 Resp 18 20 16 B/P (MAP) 106/63 (77) Pulse Ox 95 O2 Delivery Room Air Nasal Cannula Room Air Room Air O2 Flow Rate 2.0 11/15/19 11/15/19 11/15/19 11/15/19 10:42 11:00 11:07 11:07 Temp 98.1 98.1 Pulse 84 Resp 22 16 16 16 B/P (MAP) 111/62 (78) Pulse Ox 95 O2 Delivery Room Air Room Air Room Air Intake and Output 11/14/19 11/14/19 11/15/19 15:00 23:00 07:00 Intake Total 240 ml 120 ml Output Total 1000 ml 450 ml 650 ml Balance -760 ml -330 ml -650 ml Nutrition Consultation Dietary Evaluation: Recommendations by RD: Dietary education by RD, Increase Calorie Intake, Protein supplementation Comments: REC continue ADA/cardiac diet ,glucerna Expected Outcomes/Goals: PO intake to meet >75% est needs- met at times, goal ongoing Interpretation of weight loss: >5% in 1 month Malnutrition Findings: Food and Nutrition Intake (Sev: <50% est energy req 5days Weight Status: Morbidly Obese RAFAEL CAT MD Nov 15, 2019 12:10
[2019-11-15 15:00] VITALS: BP 100/53
--- NOTE | 2019-11-15 15:18 | NUR ---
SW following. Chart reviewed, discussed with RN. PT/OT/ST recommending Acute Rehab. SW met with pt, pt agreeable and wants [facility] as it is the closest one to her home. Pt's referral is very very large, LORRAINE spoke with Trisha at [facility] - Trisha requested the face sheet and H&P and advised someone from [facility] will come collect the rest of the packet for review. RN notified. LORRAINE will continue to follow.
[2019-11-15 19:00] VITALS: BP 129/69
[2019-11-15] MEDS: INSULIN GLARGINE SYRINGE. SQ SCH (21:00)
[2019-11-15] MEDS: METOPROLOL SUCC 24HR ER 100 MG TAB.ER.24H. PO SCH (21:23)
[2019-11-15] MEDS: ATORVASTATIN CALCIUM 40 MG TABLET. PO SCH (21:23)
[2019-11-15] MEDS: cefTRIAXone IV Push 1 GM VIAL. IVP SCH (21:26)
[2019-11-15 23:00] VITALS: BP 113/64
[2019-11-15] MEDS: LIDOCAINE (700MG/PATCH) PATCH. TP SCH (23:33)
[2019-11-16] MEDS: oxyCODONE IR 5 MG TABLET PO PRN ×3 (02:23→16:05)
[2019-11-16 03:00] VITALS: BP 123/70
[2019-11-16] MEDS: ALPRAZolam 0.25 MG TABLET PO PRN ×3 (03:32→22:19)
[2019-11-16] MEDS: HYDROmorphone 2 MG/ML VIAL IV PRN ×5 (03:35→22:19)
[2019-11-16] MEDS: DEXAMETHASONE SOD PHOS 4 MG/ML VIAL IVP SCH ×4 (06:25→23:57)
[2019-11-16 07:00] VITALS: BP 106/58
--- NOTE | 2019-11-16 08:22 | NUR ---
IP: Pt has a + urine culture of (R) E.coli with ESBL requiring contact precautions.
[2019-11-16] MEDS: cycloSPORINE 0.05% OPHTH DROPERETTE. OU SCH ×2 (08:45→21:26)
[2019-11-16] MEDS: SENNOSIDES/DOCUSATE 8.6/50MG TABLET. PO SCH ×2 (08:47→21:25)
[2019-11-16] MEDS: SUCRALFATE 1 GM TABLET. PO SCH ×3 (08:47→16:05)
[2019-11-16] MEDS: ONDANSETRON ODT 4 MG TAB.RAPDIS. PO PRN (08:47)
[2019-11-16] MEDS: amLODIPine BESYLATE 5 MG TABLET PO SCH (08:47)
[2019-11-16] MEDS: levETIRAcetam 500 MG TABLET PO SCH ×2 (08:47→21:25)
[2019-11-16] MEDS: NYSTATIN TOPICAL POWDER 15GM BOTTLE. TP SCH ×2 (08:48→21:00)
[2019-11-16] MEDS: ENOXAPARIN 40 MG/0.4 ML SYRINGE. SQ SCH (08:48)
[2019-11-16] MEDS: FERROUS SULFATE ORAL 300 MG/5 ML SOLUTION. PO SCH (08:48)
[2019-11-16] MEDS: FLUTICASONE 50MCG/NASAL SPRAY 16GM BOTTLE. NS SCH (08:51)
[2019-11-16] MEDS: PATCH REMOVAL. MC SCH (08:53)
[2019-11-16] MEDS: INSULIN GLARGINE SYRINGE. SQ SCH ×2 (09:00→21:37)
[2019-11-16] MEDS: INSULIN LISPRO 300 UNITS/3 ML VIAL. SQ SCH ×5 (09:02→17:05)
[2019-11-16] MEDS ORDERED: INSULIN GLARGINE SYRINGE. SQ ONE (09:15)
--- NOTE | 2019-11-16 09:24 | PDOC ---
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 Vasogenic edema with 4 mm left to right midline shift Headaches. Cognitive impairment. Staring spells. CML. HTN. HLD. DM. KRISS. ADHD. PE Hx. Leukocytosis. Abdominal hemorrhage Obesity. L5 radiculopathy Status-post craniotomy on 11/12 Plan Awaiting pathology report As per neurosurgery Levetiracetam Decadron taper per neurosurgery Will follow She will need inpatient rehabilitation Subjective No complaints Objective Vital Signs Date Time Temp Pulse Resp B/P (MAP) Pulse Ox O2 Delivery O2 Flow Rate FiO2 11/16/19 08:47 98 Room Air 11/16/19 08:47 75 106/58 11/16/19 07:00 98.2 16 98.2 11/15/19 07:06 2.0 Intake and Output 11/16/19 06:59 Intake Total 1534 ml Output Total 3700 ml Balance -2166 ml Intake Oral 1534 ml Output Urine Total 3700 ml PHYSICAL EXAM Alert. Oriented to time, place and person. PERRL. EOMI. CN: no focal findings. Muscle tone: normal. Muscle strength: 4 right UE, 3-4 right LE, 4+ left side DTR: 1+ Plantar reflex: flexor Gait: not examined in bed. Sensory exam: no abnormal findings. No cerebellar signs elicited. Review of Relevant I have reviewed the following items mustapha (where applicable) has been applied. Labs Laboratory Tests Test 11/14/19 11:46 11/14/19 16:52 11/14/19 20:46 11/15/19 08:08 Glucose (Fingerstick) 263 mg/dL (70-99) 320 mg/dL (70-99) 378 mg/dL (70-99) 308 mg/dL (70-99) Test 11/15/19 11:46 11/15/19 16:55 11/15/19 20:00 11/16/19 07:40 Glucose (Fingerstick) 391 mg/dL (70-99) 307 mg/dL (70-99) 326 mg/dL (70-99) 341 mg/dL (70-99) Laboratory Tests Test 11/15/19 11:46 11/15/19 16:55 11/15/19 20:00 11/16/19 07:40 Glucose (Fingerstick) 391 mg/dL (70-99) 307 mg/dL (70-99) 326 mg/dL (70-99) 341 mg/dL (70-99) Microbiology 11/10/19 Urine Culture - Final, Complete 11/10/19 Urine Culture Result 1 (СВЕТЛАНА) - Final, Complete 11/10/19 Antimicrobic Susceptibility - Final, Complete 11/01/19 Blood Culture - Final, Complete NO GROWTH AFTER 5 DAYS Medications Current Medications Sodium Chloride 500 ml @ 500 mls/hr 1X ONCE IV Last administered on 11/01/19at 13:00; Start 11/01/19 at 13:00; Stop 11/01/19 at 13:59; Status DC Ondansetron HCl (Zofran) 4 mg 1X ONCE IV Last administered on 11/01/19at 13:26; Start 11/01/19 at 13:00; Stop 11/01/19 at 13:13; Status DC Hydromorphone HCl (Dilaudid) 0.5 mg 1X STAT IVP Last administered on 11/01/19at 13:26; Start 11/01/19 at 12:59; Stop 11/01/19 at 13:13; Status DC Iohexol (Omnipaque 300 Mg/ml) 75 ml 1X ONCE IV Last administered on 11/01/19at 14:08; Start 11/01/19 at 13:45; Stop 11/01/19 at 13:46; Status DC Info (CONTRAST GIVEN -- Rx MONITORING) 1 each PRN DAILY PRN MC SEE COMMENTS; Start 11/01/19 at 14:00; Stop 11/03/19 at 13:59; Status DC Hydromorphone HCl (Dilaudid) 0.5 mg 1X STAT IVP Last administered on 11/01/19at 16:53; Start 11/01/19 at 16:21; Stop 11/01/19 at 16:23; Status DC Sodium Chloride 1,000 ml @ 1,000 mls/hr 1X ONCE IV Last administered on 11/01/19at 16:30; Start 11/01/19 at 16:30; Stop 11/01/19 at 17:29; Status DC Sodium Chloride 500 ml @ 500 mls/hr 1X ONCE IV Last administered on 11/01/19at 16:30; Start 11/01/19 at 16:30; Stop 11/01/19 at 17:29; Status DC Albuterol Sulfate (Ventolin Neb Soln) 2.5 mg PRN Q6HRS PRN INH SHORTNESS OF BREATH; Start 11/01/19 at 16:30; Status Cancel Alprazolam (Xanax) 0.25 mg PRN TID PRN PO anxiety; Start 11/01/19 at 16:30; Stop 11/01/19 at 17:11; Status DC Amlodipine Besylate (Norvasc) 5 mg DAILY PO Last administered on 11/16/19at 08:47; Start 11/02/19 at 09:00 Cyclosporine (Restasis) 1 drop BID OU Last administered on 11/16/19at 08:45; Start 11/01/19 at 21:00 Fluticasone Propionate (Flonase) 2 spray DAILY NS Last administered on 11/11/19at 08:19; Start 11/02/19 at 09:00 Lactobacillus Rhamnosus (Culturelle) 1 cap BID PO Last administered on 11/09/19at 08:28; Start 11/01/19 at 21:00; Stop 11/09/19 at 16:57; Status DC Lidocaine (Lidoderm) 1 patch DAILY TP ; Start 11/02/19 at 09:00; Stop 11/01/19 at 20:34; Status DC Metoprolol Succinate (Toprol Xl) 100 mg HS PO Last administered on 11/15/19at 21:23; Start 11/01/19 at 21:00 Nystatin (Nystop) 1 raza BID TP Last administered on 11/16/19at 08:48; Start 1 01/02/19 at 21:00 Pantoprazole Sodium (Protonix) 40 mg DAILYAC PO Last administered on 11/09/19at 08:28; Start 11/02/19 at 07:30; Stop 11/09/19 at 16:54; Status DC Senna/Docusate Sodium (Senna Plus) 1 tab BID PO Last administered on 11/16/19at 08:47; Start 11/01/19 at 21:00 Sucralfate (Carafate) 1 gm TIDAC PO Last administered on 11/16/19 08:47; Start 11/01/19 at 17:30 Tramadol HCl (Ultram) 50 mg PRN Q8HRS PRN PO PAIN; Start 11/01/19 at 16:30; Stop 11/01/19 at 19:43; Status DC Insulin Glargine (Lantus Syringe) 30 unit QHS SQ Last administered on 11/06/19at 21:16; Start 11/01/19 at 21:00; Stop 11/07/19 at 15:56; Status DC Ondansetron HCl (Zofran Odt) 8 mg PRN Q8HRS PRN PO NAUSEA/VOMITING Last administered on 11/16/19 08:47; Start 11/01/19 at 17:15 Polyethylene Glycol (miraLAX PACKET) 17 gm PRN DAILY PRN PO CONSTIPATION, 1ST CHOICE Last administered on 11/15/19at 09:14; Start 11/01/19 at 17:11 Atorvastatin Calcium (Lipitor) 80 mg QHS PO Last administered on 11/15/19at 21:23; Start 11/01/19 at 21:00 Insulin Human Lispro (HumaLOG) 0-9 UNITS TIDAC SQ Last administered on 11/07/19at 12:20; Start 11/01/19 at 16:30; Stop 11/07/19 at 15:56; Status DC Dextrose (Dextrose 50%-Water Syringe) 12.5 gm PRN Q15MIN PRN IV SEE COMMENTS; Start 11/01/19 at 16:30; Stop 11/12/19 at 15:36; Status DC Ondansetron HCl (Zofran) 4 mg PRN Q8HRS PRN IV NAUSEA/VOMITING; Start 11/01/19 at 16:30; Stop 11/02/19 at 16:29; Status DC Alprazolam (Xanax) 0.25 mg PRN TID PRN PO anxiety Last administered on 9at 03:32; Start 11/01/19 at 17:11 Miscellaneous (Lidoderm Patch Removal) 1 ea QHS MC ; Start 11/01/19 at 21:00; Stop 11/01/19 at 20:34; Status DC Ceftriaxone Sodium (Rocephin) 1 gm QHS IVP Last administered on 11/15/19at 21:26; Start 11/01/19 at 18:45; Stop 11/16/19 at 08:52; Status DC Tramadol HCl (Ultram) 50 mg PRN Q8HRS PRN PO MILD PAIN 1-3 Last administered on 11/15/19at 17:56; Start 11/01/19 at 19:45 Hydromorphone HCl (Dilaudid) 1 mg PRN Q4HRS PRN IV SEVERE PAIN Last administered on 11/16/19at 03:35; Start 11/01/19 at 20:15 Lidocaine (Lidoderm) 1 patch QHS TP Last administered on 11/15/19at 23:33; Start 11/01/19 at 21:00 Miscellaneous (Lidoderm Patch Removal) 1 ea DAILY MC Last administered on 11/16/19at 08:53; Start 11/02/19 at 09:00 Albumin Human 500 ml @ 125 mls/hr 1X ONCE IV ; Start 11/02/19 at 02:00; Stop 11/02/19 at 05:59; Status Cancel Acetaminophen (Tylenol) 650 mg 1X PRN PRN PO PRE-TRANSFUSION; Start 11/02/19 at 06:45; Stop 11/03/19 at 14:16; Status DC Diphenhydramine HCl (Benadryl Oral Elixir) 12.5 mg 1X PRN PRN PO PRE- TRANSFUSION; Start 11/02/19 at 06:45; Stop 11/03/19 at 14:16; Status DC Diphenhydramine HCl (Benadryl) 25 mg PRN 1X PRN PO PRE-TRANSFUSION; Start 11/02/19 at 06:45; Stop 11/03/19 at 14:16; Status DC Lactulose (LACTULOSE 300ML for RECTAL) 200 gm Q6HRS IL Last administered on 11/02/19at 18:00; Start 11/02/19 at 18:00; Stop 11/04/19 at 14:44; Status DC Sodium Chloride 1,000 ml @ 100 mls/hr Q10H IV Last administered on 11/13/19at 15:30; Start 11/02/19 at 12:00; Stop 11/14/19 at 11:28; Status DC Lactulose (Lactulose) 20 gm PRN DAILY PRN PO CONSTIPATION, 2ND CHOICE; Start 11/04/19 at 14:45 Oxycodone HCl (Roxicodone) 5 mg PRN Q6HRS PRN PO MODERATE TO SEVERE PAIN Last administered on 11/16/19at 08:47; Start 11/04/19 at 14:45 Lidocaine HCl (Buffered Lidocaine 1%) 3 ml STK-MED ONCE .ROUTE ; Start 11/05/19 at 08:13; Stop 11/05/19 at 08:13; Status DC Lidocaine HCl (Buffered Lidocaine 1%) 3 ml STK-MED ONCE .ROUTE ; Start 11/05/19 at 08:14; Stop 11/05/19 at 08:14; Status DC Midazolam HCl (Versed) 2 mg STK-MED ONCE .ROUTE ; Start 11/05/19 at 08:40; Stop 11/05/19 at 08:40; Status DC Fentanyl Citrate (Fentanyl 2ml Vial) 100 mcg STK-MED ONCE .ROUTE ; Start 11/05/19 at 08:40; Stop 11/05/19 at 08:41; Status DC Lidocaine HCl (Buffered Lidocaine 1%) 3 ml 1X ONCE IJ Last administered on 11/05/19at 08:45; Start 11/05/19 at 08:45; Stop 11/05/19 at 08:50; Status DC Midazolam HCl (Versed) 2 mg 1X ONCE IV Last administered on 11/05/19at 08:45; Start 11/05/19 at 08:45; Stop 11/05/19 at 08:50; Status DC Fentanyl Citrate (Fentanyl 2ml Vial) 100 mcg 1X ONCE IV Last administered on 11/05/19at 08:45; Start 11/05/19 at 08:45; Stop 11/05/19 at 08:50; Status DC Dexamethasone Sodium Phosphate (Decadron) 4 mg Q6HRS IVP Last administered on 11/16/19at 06:25; Start 11/06/19 at 09:00 Insulin Glargine (Lantus Syringe) 40 unit QHS SQ Last administered on 11/15/19at 21:00; Start 11/07/19 at 21:00; Stop 11/16/19 at 08:53; Status DC Insulin Human Lispro (HumaLOG) 10 units TIDAC SQ Last administered on 11/14/19at 17:31; Start 11/07/19 at 16:30; Stop 11/15/19 at 08:16; Status DC Insulin Human Lispro (HumaLOG) 0-9 UNITS TIDWMEALS SQ Last administered on 11/11/19at 17:13; Start 11/07/19 at 17:00; Stop 11/12/19 at 15:37; Status DC Insulin Human Lispro (HumaLOG) 19 units 1X ONCE SQ Last administered on 11/09/19at 12:41; Start 11/09/19 at 12:15; Stop 11/09/19 at 12:16; Status DC Insulin Human Lispro (HumaLOG) 5 units 1X ONCE SQ Last administered on 11/09/19at 13:52; Start 11/09/19 at 13:30; Stop 11/09/19 at 13:31; Status DC Non-Formulary Medication 1 ea DAILY PO ; Start 11/09/19 at 16:30; Status Cancel Ondansetron HCl (Zofran) 4 mg PRN Q6HRS PRN IV NAUSEA/VOMITING; Start 11/12/19 at 07:00; Stop 11/12/19 at 19:56; Status DC Fentanyl Citrate (Fentanyl 2ml Vial) 25 mcg PRN Q5MIN PRN IV MILD PAIN 1-3; Start 11/12/19 at 07:00; Stop 11/12/19 at 19:56; Status DC Fentanyl Citrate (Fentanyl 2ml Vial) 50 mcg PRN Q5MIN PRN IV MODERATE TO SEVERE PAIN; Start 11/12/19 at 07:00; Stop 11/12/19 at 19:56; Status DC Morphine Sulfate (Morphine Sulfate) 1 mg PRN Q10MIN PRN IV SEVERE PAIN 7-10; Start 11/12/19 at 07:00; Stop 11/09/19 at 17:30; Status DC Ringer's Solution 1,000 ml @ 30 mls/hr Q24H IV Last administered on 11/12/19at 10:00; Start 11/12/19 at 07:00; Stop 11/12/19 at 18:59; Status DC Lidocaine HCl (Xylocaine-Mpf 1% 2ml Vial) 2 ml PRN 1X PRN ID PRIOR TO IV START; Start 11/12/19 at 07:00; Stop 11/12/19 at 19:56; Status DC Hydromorphone HCl (Dilaudid) 0.5 mg PRN Q10MIN PRN IV SEV PAIN, Second choice; Start 11/12/19 at 07:00; Stop 11/12/19 at 19:56; Status DC Prochlorperazine Edisylate (Compazine) 5 mg PACU PRN PRN IV NAUSEA, MRX1; Start 11/12/19 at 07:00; Stop 11/12/19 at 19:56; Status DC Pantoprazole Sodium (Protonix) 40 mg DAILYAC PO Last administered on 11/14/19at 08:19; Start 11/09/19 at 18:30; Stop 11/15/19 at 09:25; Status DC Levetiracetam (Keppra) 500 mg BID PO Last administered on 11/16/19at 08:47; Start 11/09/19 at 21:00 Non-Formulary Medication 1 ea DAILY PO Last administered on 11/16/19at 08:47; Start 11/12/19 at 09:00 Insulin Human Lispro (HumaLOG) 8 units 1X ONCE SQ Last administered on 11/10/19at 12:32; Start 11/10/19 at 12:15; Stop 11/10/19 at 12:16; Status DC Propofol 20 ml @ As Directed STK-MED ONCE IV ; Start 11/12/19 at 07:48; Stop 11/12/19 at 07:48; Status DC Dexamethasone Sodium Phosphate (Decadron) 20 mg STK-MED ONCE .ROUTE ; Start 11/12/19 at 07:48; Stop 11/12/19 at 07:48; Status DC Lidocaine HCl (Lidocaine Pf 2% Vial) 5 ml STK-MED ONCE .ROUTE ; Start 11/12/19 at 07:48; Stop 11/12/19 at 07:48; Status DC Ondansetron HCl (Zofran) 4 mg STK-MED ONCE .ROUTE ; Start 11/12/19 at 07:48; Stop 11/12/19 at 07:48; Status DC Phenylephrine HCl (Tony-Synephrine Inj) 10 mg STK-MED ONCE .ROUTE ; Start 11/12/19 at 07:48; Stop 11/12/19 at 07:48; Status DC Propofol 50 ml @ As Directed STK-MED ONCE IV ; Start 11/12/19 at 07:48; Stop 11/12/19 at 07:48; Status DC Rocuronium [place] (Zemuron) 50 mg STK-MED ONCE .ROUTE ; Start 11/12/19 at 07:48; Stop 11/12/19 at 07:48; Status DC Remifentanil HCl (Ultiva) 2 mg STK-MED ONCE IV ; Start 11/12/19 at 07:48; Stop 11/12/19 at 07:49; Status DC Sodium Chloride (SODIUM CHLORIDE 20ml) 20 ml STK-MED ONCE IJ ; Start 11/12/19 at 07:49; Stop 11/12/19 at 07:49; Status DC Multi-Ingred Cream/Lotion/Oil/ Oint (Artificial Tears Eye Ointment) 7 raza STK- MED ONCE .ROUTE ; Start 11/12/19 at 07:49; Stop 11/12/19 at 07:49; Status DC Bacitracin 22427 unit/Sodium Chloride 1,000 ml @ 1,000 mls/hr 1X ONCE IRR Last administered on 11/12/19 11:26; Start 11/12/19 at 07:57; Stop 11/12/19 at 08:56; Status DC Sodium Chloride (SODIUM CHLORIDE 20ml) 20 ml STK-MED ONCE IJ ; Start 11/12/19 at 07:57; Stop 11/12/19 at 07:57; Status DC Gelatin (Gelfoam Size 100) 1 each STK-MED ONCE .ROUTE Last administered on 11/12/19 11:26; Start 11/12/19 at 07:59; Stop 11/12/19 at 07:59; Status DC Cellulose (Surgicel Hemostat 4x8) 1 each STK-MED ONCE .ROUTE Last administered on 11/12/19at 12:01; Start 11/12/19 at 07:59; Stop 11/12/19 at 08:00; Status DC Lidocaine/ Epinephrine (LIDOCAINE 1%-EPI 1:100,000 Multi-Dose) 20 ml STK-MED ONCE .ROUTE Last administered on 11/12/19 11:26; Start 11/12/19 at 07:59; Stop 11/12/19 at 08:00; Status DC Thrombin 20,000 unit STK-MED ONCE TP Last administered on 12/23/19at 11:26; Start 11/12/19 at 08:00; Stop 11/12/19 at 08:00; Status DC Bacitracin (Bacitracin Zinc Oint Pkt) 1 pkt STK-MED ONCE TP ; Start 11/12/19 at 08:00; Stop 11/12/19 at 08:00; Status DC Propofol 100 ml @ As Directed STK-MED ONCE IV ; Start 11/12/19 at 08:02; Stop 11/12/19 at 08:02; Status DC Insulin Human Lispro (HumaLOG) 11 units 1X ONCE SQ Last administered on 11/12/19at 08:15; Start 11/12/19 at 08:15; Stop 11/12/19 at 08:16; Status DC Gadoterate Meglumine (Dotarem) 24.8 ml 1X ONCE IVP Last administered on 11/12/19at 08:15; Start 11/12/19 at 08:15; Stop 11/12/19 at 08:16; Status DC Insulin Human Regular 100 unit/ Sodium Chloride 101 ml @ 12.484 mls/ hr ONCE ONCE IV ; Start 11/12/19 at 08:15; Stop 11/12/19 at 16:20; Status DC Desflurane (Suprane) 90 ml STK-MED ONCE IH ; Start 11/12/19 at 08:11; Stop 11/12/19 at 08:11; Status DC Fentanyl Citrate (Fentanyl 2ml Vial) 100 mcg STK-MED ONCE .ROUTE ; Start at 08:20; Stop 11/12/19 at 08:20; Status DC Midazolam HCl (Versed) 2 mg STK-MED ONCE .ROUTE ; Start 11/12/19 at 08:20; St op 11/12/19 at 08:20; Status DC Rocuronium [place] (Zemuron) 50 mg STK-MED ONCE .ROUTE ; Start 11/12/19 at 09:11; Stop 11/12/19 at 09:12; Status DC Mannitol (Mannitol) 12.5 g STK-MED ONCE .ROUTE ; Start 11/12/19 at 09:22; Stop 11/12/19 at 09:23; Status DC Propofol 100 ml @ As Directed STK-MED ONCE IV ; Start 11/12/19 at 09:22; Stop 11/12/19 at 09:23; Status DC Lidocaine HCl (Xylocaine-Mpf 1% 2ml Vial) 2 ml STK-MED ONCE .ROUTE ; Start 11/12/19 at 09:24; Stop 11/12/19 at 09:24; Status DC Cefazolin Sodium 3 gm/Dextrose 100 ml @ 200 mls/hr 1X PREOP ONCE IV Last administered on 11/12/19 10:53; Start 11/12/19 at 10:30; Stop 11/12/19 at 10:59; Status DC Gelatin (Gelfoam Size 12-7mm) 1 each STK-MED ONCE .ROUTE Last administered on 11/12/19 12:03; Start 11/12/19 at 11:59; Stop 11/12/19 at 12:01; Status DC Thrombin 20,000 unit STK-MED ONCE TP Last administered on 11/12/19 12:04; Start 11/12/19 at 12:00; Stop 11/12/19 at 12:01; Status DC Gelatin (Gelfoam Size 100) 1 each STK-MED ONCE .ROUTE Last administered on 11/12/19 12:25; Start 11/12/19 at 12:26; Stop 11/12/19 at 12:26; Status DC Gelatin (Gelfoam Size 12-7mm) 1 each STK-MED ONCE .ROUTE Last administered on 11/12/19 13:35; Start 11/12/19 at 13:32; Stop 11/12/19 at 13:33; Status DC Thrombin 20,000 unit STK-MED ONCE TP Last administered on 11/12/19 13:35; Start 11/12/19 at 13:32; Stop 11/12/19 at 13:33; Status DC Gelatin (Gelfoam Size 12-7mm) 1 each STK-MED ONCE .ROUTE Last administered on 11/12/19at 13:55; Start 11/12/19 at 13:55; Stop 11/12/19 at 13:55; Status DC Gelatin (Gelfoam Size 12-7mm) 1 each STK-MED ONCE .ROUTE Last administered on 11/12/19 13:59; Start 11/12/19 at 13:59; Stop 11/12/19 at 13:59; Status DC Labetalol HCl (Normodyne Iv Push) 5 mg PRN Q15MIN PRN IVP HYPERTENSION; Start 11/12/19 at 15:15 Nicardipine HCl 50 mg/Sodium Chloride 250 ml @ 25 mls/hr TITRATE PRN IV SBP 90-140; Start 11/12/19 at 15:15; Stop 11/15/19 at 08:16; Status DC Hydralazine HCl (Apresoline Inj) 5 mg PRN Q6HRS PRN IVP TO KEEP SBP<140mmHg; Start 11/12/19 at 15:15 Al Hydroxide/Mg Hydroxide (Mylanta Plus Xs) 30 ml PRN Q3HRS PRN PO HEARTBURN / GAS; Start 11/12/19 at 15:15 Calcium Carbonate/ Glycine (Tums) 500 mg PRN Q3HRS PRN PO INDIGESTION; Start 11/12/19 at 15:15 Diphenhydramine HCl (Benadryl) 25 mg PRN Q6HRS PRN PO ITCHING; Start 11/12/19 at 15:15 Diphenhydramine HCl (Benadryl) 25 mg PRN Q6HRS PRN IV ITCHING; Start 11/12/19 at 15:15 Sodium Chloride (Normal Saline Flush) 3 ml QSHIFT PRN IV AFTER MEDS AND BLOOD DRAWS; Start 11/12/19 at 15:15 Insulin Human Lispro (HumaLOG) 0-5 UNITS TIDWMEALS SQ Last administered on 11/16/19at 09:02; Start 11/12/19 at 17:00 Dextrose (Dextrose 50%-Water Syringe) 12.5 gm PRN Q15MIN PRN IV SEE COMMENTS; Start 11/12/19 at 15:15 Dextrose (Iv Dextrose 5%) 250 ml PRN Q15MIN PRN IV SEE COMMENTS; Start 11/12/19 at 15:15 Hydromorphone HCl (Dilaudid) 0.2 mg PRN Q1HR PRN IV MODERATE PAIN; Start 11/12/19 at 15:15 Insulin Human Lispro (HumaLOG VIAL for OP,RR ONLY) 0-10 units PRN Q1HR PRN SQ PER PROTOCOL Last administered on 11/12/19at 15:50; Start 11/12/19 at 16:00; Stop 11/12/19 at 19:54; Status DC Insulin Human Lispro (HumaLOG VIAL for OP,RR ONLY) 4 unit 1X ONCE SQ ; Start 11/12/19 at 16:45; Stop 11/12/19 at 16:46; Status DC Ferrous Sulfate (Iron Oral Solution) 300 mg QD PO Last administered on 11/16/19at 08:48; Start 11/13/19 at 10:00 Gadoterate Meglumine (Dotarem) 10 ml 1X ONCE IVP Last administered on 11/13/19at 15:00; Start 11/13/19 at 14:45; Stop 11/13/19 at 14:48; Status DC Gadoterate Meglumine (Dotarem) 15 ml 1X ONCE IVP Last administered on 11/13/19at 15:00; Start 11/13/19 at 14:45; Stop 11/13/19 at 14:48; Status DC Insulin Human Lispro (HumaLOG) 15 units TIDAC SQ Last administered on 11/15/19at 17:08; Start 11/15/19 at 08:15; Stop 11/16/19 at 08:53; Status DC Insulin Glargine (Lantus Syringe) 20 unit DAILY SQ Last administered on 11/15/19at 09:20; Start 11/15/19 at 09:00; Stop 11/16/19 at 08:53; Status DC Enoxaparin Sodium (Lovenox 40mg Syringe) 40 mg Q12H SQ Last administered on 11/15/19at 23:36; Start 11/15/19 at 10:00; Stop 11/16/19 at 07:50; Status DC Enoxaparin Sodium (Lovenox 40mg Syringe) 40 mg DAILY SQ Last administered on 11/16/19at 08:48; Start 11/16/19 at 09:00 Meropenem 1 gm/ Sodium Chloride 100 ml @ 200 mls/hr Q8HRS IV ; Start 11/16/19 at 14:00 Insulin Glargine (Lantus Syringe) 40 unit BID SQ ; Start 11/16/19 at 09:00 Insulin Human Lispro (HumaLOG) 20 units TIDAC SQ ; Start 11/16/19 at 11:30 Insulin Glargine (Lantus Syringe) 20 unit 1X ONCE SQ ; Start 11/16/19 at 09:15; Stop 11/16/19 at 09:16; Status DC Active Scripts Active Enoxaparin Sodium 120 Mg/0.8 Ml Disp.syrin 120 Mg SQ Q12HR 28 Days Dexamethasone 4 Mg Tablet 4 Mg PO BID 14 Days Culturelle (Lactobacillus Rhamnosus Gg) 1 Each Cap.sprink 1 Cap PO BID 30 Days Amlodipine Besylate 5 Mg Tablet 5 Mg PO DAILY 30 Days Cefdinir 300 Mg Capsule 300 Mg PO BID 10 Days Reported Cymbalta (Duloxetine Hcl) 60 Mg Capsule.dr 1 Cap PO BID Lyrica (Pregabalin) 150 Mg Capsule 1 Cap PO BID Novolog (Insulin Aspart) 100 Unit/1 Ml Cartridge 10-45 Unit SQ QIDACHS Levemir (Insulin Detemir) 100 Unit/1 Ml Vial 30 Unit SQ HS Linzess (Linaclotide) 145 Mcg Capsule 145 Mcg PO PRN PRN Crestor (Rosuvastatin Calcium) 40 Mg Tablet 0.5 Tab PO DAILY Polyethylene Glycol 3350 2,500 Gm Powder 17 Gm PO PRN PRN Xanax (Alprazolam) 1 Mg Tablet 1 Tab PO TID Restasis (Cyclosporine) 1 Each Droperette 1 Drop EACHEYE BID Proair Hfa Inhaler (Albuterol Sulfate) 8.5 Gm Hfa.aer.ad 1 Puff INH PRN Q6HRS PRN Tramadol Hcl 50 Mg Tablet 1 Tab PO PRN Q8HRS PRN Ondansetron Hcl 4 Mg Tablet 2 Tab PO PRN Q8HRS PRN Nystatin 15 Gm Powder 1 Raza TP BID Lidocaine PATCH (Lidocaine) 1 Each Adh..patch 1 Each TP DAILY Fluticasone Propionate Nasal [place]rie (Fluticasone Propionate) 16 Gm Guthrie.susp 2 [place]rie NS DAILY Percocet 5-325 Mg Tablet (Oxycodone/Acetaminophen) 1 Each Tablet 1-2 Tab PO Q4-6HRS PRN LAST DOSE AT NEXT DOSE Senna-Docusate Sodium Tablet (Sennosides/Docusate Sodium) 1 Each Tablet 1 Each PO BID LAST DOSE THIS AM NEXT DOSE TONIGHT Robaxin-750 (Methocarbamol) 750 Mg Tablet 1 Tab PO TID LAST DOSE AT 1400 (2PM) MAY HAVE THE NEXT DOSE AT 10 PM Protonix (Pantoprazole Sodium) 40 Mg Tablet. 40 Mg PO DAILY LST DOSE THIS AM NEXT DOSE TOMORROW AM Carafate (Sucralfate) 1 Gm Tablet 1 Tab PO TID Meds not given this hospital admission. May resume home medications as approved by Physician. MAY TAKE WHEN AVAILABLE Xarelto (Rivaroxaban) 15 Mg Tablet 15 Mg PO DAILY Meds not given this hospital admission. May resume home medications as approved by Physician. MAY RESUME WHEN AVAILABLE Metoprolol Succinate ( Xl ) (Metoprolol Succinate) 100 Mg Tab.er.24h 100 Mg PO HS LAST DOSE THIS AM NEXT DOSE TOMORROW AM Vitals/I & O Vital Sign - Last 24 Hours 11/15/19 11/15/19 11/15/19 11/15/19 10:10 10:42 11:00 11:07 Temp 98.1 98.1 Pulse 84 Resp 16 22 16 16 B/P (MAP) 111/62 (78) Pulse Ox 95 O2 Delivery Room Air Room Air Room Air 11/15/19 11/15/19 11/15/19 11/15/19 11:07 14:07 15:00 15:20 Temp 98.3 98.3 Pulse 97 Resp 16 16 17 16 B/P (MAP) 100/53 (69) Pulse Ox 96 O2 Delivery Room Air Room Air Room Air Room Air 11/15/19 11/15/19 11/15/19 11/15/19 15:21 15:55 17:56 18:56 Resp 16 16 16 20 O2 Delivery Room Air Room Air Room Air Room Air 11/15/19 11/15/19 11/15/19 11/15/19 19:00 19:28 19:35 19:58 Temp 97.4 97.4 Pulse 102 Resp 16 20 20 B/P (MAP) 129/69 (89) Pulse Ox 95 O2 Delivery Room Air Room Air Room Air 11/15/19 11/15/19 11/15/19 11/16/19 21:23 23:00 23:32 00:02 Temp 97.9 97.9 Pulse 102 91 Resp 18 20 20 B/P (MAP) 129/69 113/64 (80) Pulse Ox 96 O2 Delivery Room Air Room Air 12/27/19 12/27/19 12/27/19 12/27/19 02:23 03:00 03:23 03:35 Temp 98.0 98.0 Pulse 88 Resp 20 18 20 20 B/P (MAP) 123/70 (87) Pulse Ox 95 O2 Delivery Room Air Room Air Room Air 11/16/19 11/16/19 11/16/19 11/16/19 04:05 07:00 07:42 08:47 Temp 98.2 98.2 Pulse 75 75 Resp 20 16 B/P (MAP) 106/58 (74) 106/58 Pulse Ox 98 O2 Delivery Room Air Room Air Room Air 11/16/19 08:47 Pulse Ox 98 O2 Delivery Room Air Intake and Output 11/15/19 11/15/19 11/16/19 14:59 22:59 06:59 Intake Total 834 ml 220 ml 480 ml Output Total 1500 ml 2200 ml Balance 834 ml -1280 ml -1720 ml CISCO KLEIN MD Nov 16, 2019 09:24
--- NOTE | 2019-11-16 09:42 | PDOC ---
SUBJECTIVE Subjective S: Had debulking of parietal mass on 11/12, with resultant right-sided weakness still, stable MRI on 11/13, able to move R leg a bit yesterday, still w/ VYAS, better w/ meds O: Physical exam: Gen.: obese, resting on side of bed, NAD, head shaved at site of craniotomy, R sided weakness, incision at scalp Lungs: Breathing comfortably Psychiatric: Pleasant mood and affect Labs: Ferritin 82, iron sat 12%, TIBC low White blood cell 31, hemoglobin 8.0, platelets 361 BM showed CML in CP Path Pending from craniotomy brain mri 11/12 pre op: homogeneously enhancing left parietal convexity extra- axial mass measuring 3.8 x 3.9 x 3.3 cm with associated dural tail. The mass abuts the superior sagittal sinus without definite involvement onthis examination. Associated vasogenic edema with minimal mass effect and midline shift to the right by approximately 8 mm, stable. There is persistent mass effect on the atria of the left lateral ventricle without hydrocephalus. head ct 11/12 post op:Left lateral vertex level hematoma which may represent subdural or epidural hematoma in this postoperative patient. Left vertex intraparenchymal hematomas also are seen. Parafalcine hemorrhage which extends along the left tentorium also noted. Postoperative findings are present with the left vertex level mass no longer being delineated. Left maxillary sinusitis. brain MRI 11/13 MPRESSION: Post left parietal craniotomy with resection of the extra-axial mass from the left parietal region. Residual enhancing mass is seen superiorly and medially within the left region which measures 2.8 cm in size. Intraparenchymal and extra-axial hemorrhage is seen within the left parietal region as discussed above. Edema is seen involving the left parietal lobe. The hemorrhage and edema does not appear significantly changed since the patient's CT scan from yesterday. 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 await path post op, per NSG, apprec Dr Clark's help h/o clotting: only on ppx lovenox at the moment Thank you kindly and please do not hesitate to call with questions. OBJECTIVE Vital Signs Vital Signs Date Time Temp Pulse Resp B/P (MAP) Pulse Ox O2 Delivery O2 Flow Rate FiO2 11/16/19 08:47 98 Room Air 11/16/19 08:47 75 106/58 11/16/19 07:42 Room Air 11/16/19 07:00 98.2 75 16 106/58 (74) 98 Room Air 98.2 11/16/19 04:05 20 Room Air 11/16/19 03:35 20 Room Air 11/16/19 03:23 20 Room Air 11/16/19 03:00 98.0 88 18 123/70 (87) 95 98.0 11/16/19 02:23 20 Room Air 11/16/19 00:02 20 Room Air 11/15/19 23:32 20 Room Air 11/15/19 23:00 97.9 91 18 113/64 (80) 96 97.9 11/15/19 21:23 102 129/69 11/15/19 19:58 20 Room Air 11/15/19 19:35 Room Air 11/15/19 19:28 20 Room Air 11/15/19 19:00 97.4 102 16 129/69 (89) 95 97.4 11/15/19 18:56 20 Room Air 11/15/19 17:56 16 Room Air 11/15/19 15:55 16 Room Air 11/15/19 15:21 16 Room Air 11/15/19 15:20 16 Room Air 11/15/19 15:00 98.3 97 17 100/53 (69) 96 Room Air 98.3 11/15/19 14:07 16 Room Air 11/15/19 11:07 16 Room Air 11/15/19 11:07 16 Room Air 11/15/19 11:00 98.1 84 16 111/62 (78) 95 98.1 11/15/19 10:42 22 Room Air 11/15/19 10:10 16 Room Air I & O Intake and Output 11/16/19 07:00 Intake Total 1534 ml Output Total 3700 ml Balance -2166 ml Intake Oral 1534 ml Output Urine Total 3700 ml COMMENT Lab Laboratory Tests Test 11/15/19 11:46 11/15/19 16:55 11/15/19 20:00 11/16/19 07:40 Glucose (Fingerstick) 391 mg/dL (70-99) 307 mg/dL (70-99) 326 mg/dL (70-99) 341 mg/dL (70-99) Nutrition Consultation Dietary Evaluation: Recommendations by RD: Dietary education by RD, Increase Calorie Intake, Protein supplementation Comments: REC continue ADA/cardiac diet ,glucerna Expected Outcomes/Goals: PO intake to meet >75% est needs- met at times, goal ongoing Interpretation of weight loss: >5% in 1 month Malnutrition Findings: Food and Nutrition Intake (Sev: <50% est energy req 5days Weight Status: Morbidly Obese ENEDELIA HUYNH MD Nov 16, 2019 09:42
[2019-11-16 11:00] VITALS: BP 102/54
--- NOTE | 2019-11-16 11:18 | PDOC ---
PROGRESS NOTES Chief Complaint Chief Complaint Postop day 4 craniotomy with meningioma resection (11/12) Chronic Myelogenous Leukemia - s/p bone marrow biopsy 11/05 Abdominal pain Leukocytosis Acute encephalopathy -POA, resolved Headaches DM2 uncontrolled on decadron IV Chronic Back Pain and Sciatica Rt Leg Acute blood loss anemia Brain Mass Hx PE Hypotension resolved Epistaxis resolved GEnw eakness, - REhab on dc History of Present Illness History of Present Illness transferred out of ICU 11.14 PAssed swallow (reg diet thin liq) ABle to move RT leg! 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 rehab screen on the works by LORRAINE bateman Po rex PT OT while here SLated/targeted dc tuesday to rehab Vitals Vitals Vital Signs Date Time Temp Pulse Resp B/P (MAP) Pulse Ox O2 Delivery O2 Flow Rate FiO2 11/16/19 09:59 98 Room Air 11/16/19 08:47 75 106/58 11/16/19 07:00 98.2 16 98.2 11/15/19 07:06 2.0 Physical Exam General: Cooperative, mild distress, Other (extremely weak and depressed) Heart: Regular rate, Normal S1, Normal S2 Lungs: Wheezing Abdomen: Soft, Other (eechymosis improving) Extremities: No clubbing, No cyanosis, No edema, Normal pulses, No tenderness/swelling Skin: No rashes, No breakdown, Other (Ecchymosis on right abdomen) Labs LABS Laboratory Tests Test 11/15/19 11:46 11/15/19 16:55 11/15/19 20:00 11/16/19 07:40 Glucose (Fingerstick) 391 mg/dL (70-99) 307 mg/dL (70-99) 326 mg/dL (70-99) 341 mg/dL (70-99) Review of Systems Review of Systems headcahes, 07/31 at its worst, weak left arm, able to move left leg and RT body no probs dw RN at bedside Assessment and Plan Assessmemt and Plan Problems Medical Problems: (1) Abdominal hemorrhage Status: Acute (2) Generalized weakness Status: Acute (3) Lactic acidosis Status: Acute (4) Leukocytosis Status: Acute Comment Review of Relevant I have reviewed the following items mustapha (where applicable) has been applied. Labs Laboratory Tests Test 11/14/19 11:46 11/14/19 16:52 11/14/19 20:46 11/15/19 08:08 Glucose (Fingerstick) 263 mg/dL (70-99) 320 mg/dL (70-99) 378 mg/dL (70-99) 308 mg/dL (70-99) Test 11/15/19 11:46 11/15/19 16:55 11/15/19 20:00 11/16/19 07:40 Glucose (Fingerstick) 391 mg/dL (70-99) 307 mg/dL (70-99) 326 mg/dL (70-99) 341 mg/dL (70-99) Laboratory Tests Test 11/15/19 11:46 11/15/19 16:55 11/15/19 20:00 11/16/19 07:40 Glucose (Fingerstick) 391 mg/dL (70-99) 307 mg/dL (70-99) 326 mg/dL (70-99) 341 mg/dL (70-99) Microbiology 11/10/19 Urine Culture - Final, Complete 11/10/19 Urine Culture Result 1 (СВЕТЛАНА) - Final, Complete 11/10/19 Antimicrobic Susceptibility - Final, Complete 11/01/19 Blood Culture - Final, Complete NO GROWTH AFTER 5 DAYS Medications Current Medications Sodium Chloride 500 ml @ 500 mls/hr 1X ONCE IV Last administered on 11/01/19at 13:00; Start 11/01/19 at 13:00; Stop 11/01/19 at 13:59; Status DC Ondansetron HCl (Zofran) 4 mg 1X ONCE IV Last administered on 11/01/19at 13:26; Start 11/01/19 at 13:00; Stop 11/01/19 at 13:13; Status DC Hydromorphone HCl (Dilaudid) 0.5 mg 1X STAT IVP Last administered on 11/01/19at 13:26; Start 11/01/19 at 12:59; Stop 11/01/19 at 13:13; Status DC Iohexol (Omnipaque 300 Mg/ml) 75 ml 1X ONCE IV Last administered on 11/01/19at 14:08; Start 11/01/19 at 13:45; Stop 11/01/19 at 13:46; Status DC Info (CONTRAST GIVEN -- Rx MONITORING) 1 each PRN DAILY PRN MC SEE COMMENTS; Start 11/01/19 at 14:00; Stop 11/03/19 at 13:59; Status DC Hydromorphone HCl (Dilaudid) 0.5 mg 1X STAT IVP Last administered on 11/01/19at 16:53; Start 11/01/19 at 16:21; Stop 11/01/19 at 16:23; Status DC Sodium Chloride 1,000 ml @ 1,000 mls/hr 1X ONCE IV Last administered on 11/01/19at 16:30; Start 11/01/19 at 16:30; Stop 11/01/19 at 17:29; Status DC Sodium Chloride 500 ml @ 500 mls/hr 1X ONCE IV Last administered on 11/01/19at 16:30; Start 11/01/19 at 16:30; Stop 11/01/19 at 17:29; Status DC Albuterol Sulfate (Ventolin Neb Soln) 2.5 mg PRN Q6HRS PRN INH SHORTNESS OF BREATH; Start 11/01/19 at 16:30; Status Cancel Alprazolam (Xanax) 0.25 mg PRN TID PRN PO anxiety; Start 11/01/19 at 16:30; Stop 11/01/19 at 17:11; Status DC Amlodipine Besylate (Norvasc) 5 mg DAILY PO Last administered on 11/16/19at 08:47; Start 11/02/19 at 09:00 Cyclosporine (Restasis) 1 drop BID OU Last administered on 11/16/19at 08:45; S tart 11/01/19 at 21:00 Fluticasone Propionate (Flonase) 2 spray DAILY NS Last administered on 11/11/19 08:19; Start 11/02/19 at 09:00 Lactobacillus Rhamnosus (Culturelle) 1 cap BID PO Last administered on 11/09/19 08:28; Start 11/01/19 at 21:00; Stop 11/09/19 at 16:57; Status DC Lidocaine (Lidoderm) 1 patch DAILY TP ; Start 11/02/19 at 09:00; Stop 11/01/19 at 20:34; Status DC Metoprolol Succinate (Toprol Xl) 100 mg HS PO Last administered on 11/15/19 21:23; Start 11/01/19 at 21:00 Nystatin (Nystop) 1 raza BID TP Last administered on 11/16/19 08:48; Start 11/01/19 at 21:00 Pantoprazole Sodium (Protonix) 40 mg DAILYAC PO Last administered on 11/09/19 08:28; Start 11/02/19 at 07:30; Stop 11/09/19 at 16:54; Status DC Senna/Docusate Sodium (Senna Plus) 1 tab BID PO Last administered on 11/16/19 08:47; Start 11/01/19 at 21:00 Sucralfate (Carafate) 1 gm TIDAC PO Last administered on 11/16/19 08:47; Start 11/01/19 at 17:30 Tramadol HCl (Ultram) 50 mg PRN Q8HRS PRN PO PAIN; Start 11/01/19 at 16:30; Stop 11/01/19 at 19:43; Status DC Insulin Glargine (Lantus Syringe) 30 unit QHS SQ Last administered on 10/21 21:16; Start 11/01/19 at 21:00; Stop 11/07/19 at 15:56; Status DC Ondansetron HCl (Zofran Odt) 8 mg PRN Q8HRS PRN PO NAUSEA/VOMITING Last administered on 11/16/19 08:47; Start 11/01/19 at 17:15 Polyethylene Glycol (miraLAX PACKET) 17 gm PRN DAILY PRN PO CONSTIPATION, 1ST CHOICE Last administered on 11/15/19 09:14; Start 11/01/19 at 17:11 Atorvastatin Calcium (Lipitor) 80 mg QHS PO Last administered on 11/15/19at 21:23; Start 11/01/19 at 21:00 Insulin Human Lispro (HumaLOG) 0-9 UNITS TIDAC SQ Last administered on 11/07/19at 12:20; Start 11/01/19 at 16:30; Stop 11/07/19 at 15:56; Status DC Dextrose (Dextrose 50%-Water Syringe) 12.5 gm PRN Q15MIN PRN IV SEE COMMENTS; Start 11/01/19 at 16:30; Stop 11/12/19 at 15:36; Status DC Ondansetron HCl (Zofran) 4 mg PRN Q8HRS PRN IV NAUSEA/VOMITING; Start 11/01/19 at 16:30; Stop 11/02/19 at 16:29; Status DC Alprazolam (Xanax) 0.25 mg PRN TID PRN PO anxiety Last administered on 11/16/19at 03:32; Start 11/01/19 at 17:11 Miscellaneous (Lidoderm Patch Removal) 1 ea QHS MC ; Start 11/01/19 at 21:00; Stop 11/01/19 at 20:34; Status DC Ceftriaxone Sodium (Rocephin) 1 gm QHS IVP Last administered on 11/15/19at 21:26; Start 11/01/19 at 18:45; Stop 11/16/19 at 08:52; Status DC Tramadol HCl (Ultram) 50 mg PRN Q8HRS PRN PO MILD PAIN 1-3 Last administered on 11/15/19at 17:56; Start 11/01/19 at 19:45 Hydromorphone HCl (Dilaudid) 1 mg PRN Q4HRS PRN IV SEVERE PAIN Last administered on 11/16/19at 09:43; Start 11/01/19 at 20:15 Lidocaine (Lidoderm) 1 patch QHS TP Last administered on 11/15/19at 23:33; Start 11/01/19 at 21:00 Miscellaneous (Lidoderm Patch Removal) 1 ea DAILY MC Last administered on 11/16/19at 08:53; Start 11/02/19 at 09:00 Albumin Human 500 ml @ 125 mls/hr 1X ONCE IV ; Start 11/02/19 at 02:00; Stop 11/02/19 at 05:59; Status Cancel Acetaminophen (Tylenol) 650 mg 1X PRN PRN PO PRE-TRANSFUSION; Start 11/02/19 at 06:45; Stop 11/03/19 at 14:16; Status DC Diphenhydramine HCl (Benadryl Oral Elixir) 12.5 mg 1X PRN PRN PO PRE-TRANS FUSION; Start 11/02/19 at 06:45; Stop 11/03/19 at 14:16; Status DC Diphenhydramine HCl (Benadryl) 25 mg PRN 1X PRN PO PRE-TRANSFUSION; Start 11/02/19 at 06:45; Stop 11/03/19 at 14:16; Status DC Lactulose (LACTULOSE 300ML for RECTAL) 200 gm Q6HRS [place] Last administered on 11/02/19at 18:00; Start 11/02/19 at 18:00; Stop 11/04/19 at 14:44; Status DC Sodium Chloride 1,000 ml @ 100 mls/hr Q10H IV Last administered on 11/13/19at 15:30; Start 11/02/19 at 12:00; Stop 11/14/19 at 11:28; Status DC Lactulose (Lactulose) 20 gm PRN DAILY PRN PO CONSTIPATION, 2ND CHOICE; Start 11/04/19 at 14:45 Oxycodone HCl (Roxicodone) 5 mg PRN Q6HRS PRN PO MODERATE TO SEVERE PAIN Last administered on 11/16/19at 08:47; Start 11/04/19 at 14:45 Lidocaine HCl (Buffered Lidocaine 1%) 3 ml STK-MED ONCE .ROUTE ; Start 11/05/19 at 08:13; Stop 11/05/19 at 08:13; Status DC Lidocaine HCl (Buffered Lidocaine 1%) 3 ml STK-MED ONCE .ROUTE ; Start 11/05/19 at 08:14; Stop 11/05/19 at 08:14; Status DC Midazolam HCl (Versed) 2 mg STK-MED ONCE .ROUTE ; Start 11/05/19 at 08:40; Stop 11/05/19 at 08:40; Status DC Fentanyl Citrate (Fentanyl 2ml Vial) 100 mcg STK-MED ONCE .ROUTE ; Start 11/05/19 at 08:40; Stop 11/05/19 at 08:41; Status DC Lidocaine HCl (Buffered Lidocaine 1%) 3 ml 1X ONCE IJ Last administered on 11/05/19at 08:45; Start 11/05/19 at 08:45; Stop 11/05/19 at 08:50; Status DC Midazolam HCl (Versed) 2 mg 1X ONCE IV Last administered on 11/05/19at 08:45; Start 11/05/19 at 08:45; Stop 11/05/19 at 08:50; Status DC Fentanyl Citrate (Fentanyl 2ml Vial) 100 mcg 1X ONCE IV Last administered on 11/05/19at 08:45; Start 11/05/19 at 08:45; Stop 11/05/19 at 08:50; Status DC Dexamethasone Sodium Phosphate (Decadron) 4 mg Q6HRS IVP Last administered on 11/16/19at 06:25; Start 11/06/19 at 09:00 Insulin Glargine (Lantus Syringe) 40 unit QHS SQ Last administered on 11/15/19at 21:00; Start 11/07/19 at 21:00; Stop 11/16/19 at 08:53; Status DC Insulin Human Lispro (HumaLOG) 10 units TIDAC SQ Last administered on 11/14/19 t 17:31; Start 11/07/19 at 16:30; Stop 11/15/19 at 08:16; Status DC Insulin Human Lispro (HumaLOG) 0-9 UNITS TIDWMEALS SQ Last administered on 11/11/19at 17:13; Start 11/07/19 at 17:00; Stop 11/12/19 at 15:37; Status DC Insulin Human Lispro (HumaLOG) 19 units 1X ONCE SQ Last administered on 11/09/19at 12:41; Start 11/09/19 at 12:15; Stop 11/09/19 at 12:16; Status DC Insulin Human Lispro (HumaLOG) 5 units 1X ONCE SQ Last administered on 11/09/19at 13:52; Start 11/09/19 at 13:30; Stop 11/09/19 at 13:31; Status DC Non-Formulary Medication 1 ea DAILY PO ; Start 11/09/19 at 16:30; Status Cancel Ondansetron HCl (Zofran) 4 mg PRN Q6HRS PRN IV NAUSEA/VOMITING; Start 11/12/19 at 07:00; Stop 11/12/19 at 19:56; Status DC Fentanyl Citrate (Fentanyl 2ml Vial) 25 mcg PRN Q5MIN PRN IV MILD PAIN 1-3; Start 11/12/19 at 07:00; Stop 11/12/19 at 19:56; Status DC Fentanyl Citrate (Fentanyl 2ml Vial) 50 mcg PRN Q5MIN PRN IV MODERATE TO SEVERE PAIN; Start 11/12/19 at 07:00; Stop 11/12/19 at 19:56; Status DC Morphine Sulfate (Morphine Sulfate) 1 mg PRN Q10MIN PRN IV SEVERE PAIN 7-10; Start 11/12/19 at 07:00; Stop 11/09/19 at 17:30; Status DC Ringer's Solution 1,000 ml @ 30 mls/hr Q24H IV Last administered on 11/12/19at 10:00; Start 11/12/19 at 07:00; Stop 11/12/19 at 18:59; Status DC Lidocaine HCl (Xylocaine-Mpf 1% 2ml Vial) 2 ml PRN 1X PRN ID PRIOR TO IV START; Start 11/12/19 at 07:00; Stop 11/12/19 at 19:56; Status DC Hydromorphone HCl (Dilaudid) 0.5 mg PRN Q10MIN PRN IV SEV PAIN, Second choice; Start 11/12/19 at 07:00; Stop 11/12/19 at 19:56; Status DC Prochlorperazine Edisylate (Compazine) 5 mg PACU PRN PRN IV NAUSEA, MRX1; Start 11/12/19 at 07:00; Stop 11/12/19 at 19:56; Status DC Pantoprazole Sodium (Protonix) 40 mg DAILYAC PO Last administered on 11/14/19at 08:19; Start 11/09/19 at 18:30; Stop 11/15/19 at 09:25; Status DC Levetiracetam (Keppra) 500 mg BID PO Last administered on 11/16/19at 08:47; Start 11/09/19 at 21:00 Non-Formulary Medication 1 ea DAILY PO Last administered on 11/16/19at 08:47; Start 11/12/19 at 09:00 Insulin Human Lispro (HumaLOG) 8 units 1X ONCE SQ Last administered on 10/22 12/09at 12:32; Start 11/10/19 at 12:15; Stop 11/10/19 at 12:16; Status DC Propofol 20 ml @ As Directed STK-MED ONCE IV ; Start 11/12/19 at 07:48; Stop 11/12/19 at 07:48; Status DC Dexamethasone Sodium Phosphate (Decadron) 20 mg STK-MED ONCE .ROUTE ; Start 11/12/19 at 07:48; Stop 11/12/19 at 07:48; Status DC Lidocaine HCl (Lidocaine Pf 2% Vial) 5 ml STK-MED ONCE .ROUTE ; Start 11/12/19 at 07:48; Stop 11/12/19 at 07:48; Status DC Ondansetron HCl (Zofran) 4 mg STK-MED ONCE .ROUTE ; Start 11/12/19 at 07:48; Stop 11/12/19 at 07:48; Status DC Phenylephrine HCl (Tony-Synephrine Inj) 10 mg STK-MED ONCE .ROUTE ; Start 11/12/19 at 07:48; Stop 11/12/19 at 07:48; Status DC Propofol 50 ml @ As Directed STK-MED ONCE IV ; Start 11/12/19 at 07:48; Stop 11/12/19 at 07:48; Status DC Rocuronium Willmar (Zemuron) 50 mg STK-MED ONCE .ROUTE ; Start 11/12/19 at 07:48; Stop 11/12/19 at 07:48; Status DC Remifentanil HCl (Ultiva) 2 mg STK-MED ONCE IV ; Start 11/12/19 at 07:48; Stop 11/12/19 at 07:49; Status DC Sodium Chloride (SODIUM CHLORIDE 20ml) 20 ml STK-MED ONCE IJ ; Start 11/12/19 at 07:49; Stop 11/12/19 at 07:49; Status DC Multi-Ingred Cream/Lotion/Oil/ Oint (Artificial Tears Eye Ointment) 7 raza STK- MED ONCE .ROUTE ; Start 11/12/19 at 07:49; Stop 11/12/19 at 07:49; Status DC Bacitracin 48308 unit/Sodium Chloride 1,000 ml @ 1,000 mls/hr 1X ONCE IRR Last administered on 11/12/19 11:26; Start 11/12/19 at 07:57; Stop 11/12/19 at 08:56; Status DC Sodium Chloride (SODIUM CHLORIDE 20ml) 20 ml STK-MED ONCE IJ ; Start 11/12/19 at 07:57; Stop 11/12/19 at 07:57; Status DC Gelatin (Gelfoam Size 100) 1 each STK-MED ONCE .ROUTE Last administered on 11/12/19 11:26; Start 11/12/19 at 07:59; Stop 11/12/19 at 07:59; Status DC Cellulose (Surgicel Hemostat 4x8) 1 each STK-MED ONCE .ROUTE Last administered on 11/12/19 12:01; Start 11/12/19 at 07:59; Stop 11/12/19 at 08:00; Status DC Lidocaine/ Epinephrine (LIDOCAINE 1%-EPI 1:100,000 Multi-Dose) 20 ml STK-MED ONCE .ROUTE Last administered on 11/12/19 11:26; Start 11/12/19 at 07:59; Stop 11/12/19 at 08:00; Status DC Thrombin 20,000 unit STK-MED ONCE TP Last administered on 11/12/19 11:26; Start 11/12/19 at 08:00; Stop 11/12/19 at 08:00; Status DC Bacitracin (Bacitracin Zinc Oint Pkt) 1 pkt STK-MED ONCE TP ; Start 11/12/19 at 08:00; Stop 11/12/19 at 08:00; Status DC Propofol 100 ml @ As Directed STK-MED ONCE IV ; Start 11/12/19 at 08:02; Stop 11/12/19 at 08:02; Status DC Insulin Human Lispro (HumaLOG) 11 units 1X ONCE SQ Last administered on 11/12/19 08:15; Start 11/12/19 at 08:15; Stop 11/12/19 at 08:16; Status DC Gadoterate Meglumine (Dotarem) 24.8 ml 1X ONCE IVP Last administered on 11/12/19 08:15; Start 11/12/19 at 08:15; Stop 11/12/19 at 08:16; Status DC Insulin Human Regular 100 unit/ Sodium Chloride 101 ml @ 12.484 mls/ hr ONCE ONCE IV ; Start 11/12/19 at 08:15; Stop 11/12/19 at 16:20; Status DC Desflurane (Suprane) 90 ml STK-MED ONCE IH ; Start 11/12/19 at 08:11; Stop 11/12/19 at 08:11; Status DC Fentanyl Citrate (Fentanyl 2ml Vial) 100 mcg STK-MED ONCE .ROUTE ; Start 11/12/19 at 08:20; Stop 11/12/19 at 08:20; Status DC Midazolam HCl (Versed) 2 mg STK-MED ONCE .ROUTE ; Start 11/12/19 at 08:20; Stop 11/12/19 at 08:20; Status DC Rocuronium Willmar (Zemuron) 50 mg STK-MED ONCE .ROUTE ; Start 11/12/19 at 09:11; Stop 11/12/19 at 09:12; Status DC Mannitol (Mannitol) 12.5 g STK-MED ONCE .ROUTE ; Start 11/12/19 at 09:22; Stop 11/12/19 at 09:23; Status DC Propofol 100 ml @ As Directed STK-MED ONCE IV ; Start 11/12/19 at 09:22; Stop 11/12/19 at 09:23; Status DC Lidocaine HCl (Xylocaine-Mpf 1% 2ml Vial) 2 ml STK-MED ONCE .ROUTE ; Start 11/12/19 at 09:24; Stop 11/12/19 at 09:24; Status DC Cefazolin Sodium 3 gm/Dextrose 100 ml @ 200 mls/hr 1X PREOP ONCE IV Last administered on 11/12/19at 10:53; Start 11/12/19 at 10:30; Stop 11/12/19 at 10:59; Status DC Gelatin (Gelfoam Size 12-7mm) 1 each STK-MED ONCE .ROUTE Last administered on 11/12/19at 12:03; Start 11/12/19 at 11:59; Stop 11/12/19 at 12:01; Status DC Thrombin 20,000 unit STK-MED ONCE TP Last administered on 11/12/19at 12:04; Start 11/12/19 at 12:00; Stop 11/12/19 at 12:01; Status DC Gelatin (Gelfoam Size 100) 1 each STK-MED ONCE .ROUTE Last administered on 11/12/19at 12:25; Start 11/12/19 at 12:26; Stop 11/12/19 at 12:26; Status DC Gelatin (Gelfoam Size 12-7mm) 1 each STK-MED ONCE .ROUTE Last administered on 11/12/19at 13:35; Start 11/12/19 at 13:32; Stop 11/12/19 at 13:33; Status DC Thrombin 20,000 unit STK-MED ONCE TP Last administered on 11/12/19at 13:35; Start 11/12/19 at 13:32; Stop 11/12/19 at 13:33; Status DC Gelatin (Gelfoam Size 12-7mm) 1 each STK-MED ONCE .ROUTE Last administered on 11/12/19at 13:55; Start 11/12/19 at 13:55; Stop 11/12/19 at 13:55; Status DC Gelatin (Gelfoam Size 12-7mm) 1 each STK-MED ONCE .ROUTE Last administered on 11/12/19at 13:59; Start 11/12/19 at 13:59; Stop 11/12/19 at 13:59; Status DC Labetalol HCl (Normodyne Iv Push) 5 mg PRN Q15MIN PRN IVP HYPERTENSION; Start 11/12/19 at 15:15 Nicardipine HCl 50 mg/Sodium Chloride 250 ml @ 25 mls/hr TITRATE PRN IV SBP 90-140; Start 11/12/19 at 15:15; Stop 11/15/19 at 08:16; Status DC Hydralazine HCl (Apresoline Inj) 5 mg PRN Q6HRS PRN IVP TO KEEP SBP<140mmHg; Start 11/12/19 at 15:15 Al Hydroxide/Mg Hydroxide (Mylanta Plus Xs) 30 ml PRN Q3HRS PRN PO HEARTBURN / GAS; Start 11/12/19 at 15:15 Calcium Carbonate/ Glycine (Tums) 500 mg PRN Q3HRS PRN PO INDIGESTION; Start 11/12/19 at 15:15 Diphenhydramine HCl (Benadryl) 25 mg PRN Q6HRS PRN PO ITCHING; Start 11/12/19 at 15:15 Diphenhydramine HCl (Benadryl) 25 mg PRN Q6HRS PRN IV ITCHING; Start 11/12/19 at 15:15 Sodium Chloride (Normal Saline Flush) 3 ml QSHIFT PRN IV AFTER MEDS AND BLOOD DRAWS; Start 11/12/19 at 15:15 Insulin Human Lispro (HumaLOG) 0-5 UNITS TIDWMEALS SQ Last administered on 11/16/19at 09:02; Start 11/12/19 at 17:00 Dextrose (Dextrose 50%-Water Syringe) 12.5 gm PRN Q15MIN PRN IV SEE COMMENTS; Start 11/12/19 at 15:15 Dextrose (Iv Dextrose 5%) 250 ml PRN Q15MIN PRN IV SEE COMMENTS; Start 11/12/19 at 15:15 Hydromorphone HCl (Dilaudid) 0.2 mg PRN Q1HR PRN IV MODERATE PAIN; Start 11/12/19 at 15:15 Insulin Human Lispro (HumaLOG VIAL for OP,RR ONLY) 0-10 units PRN Q1HR PRN SQ PER PROTOCOL Last administered on 11/12/19at 15:50; Start 11/12/19 at 16:00; Stop 11/12/19 at 19:54; Status DC Insulin Human Lispro (HumaLOG VIAL for OP,RR ONLY) 4 unit 1X ONCE SQ ; Start 11/12/19 at 16:45; Stop 11/12/19 at 16:46; Status DC Ferrous Sulfate (Iron Oral Solution) 300 mg QD PO Last administered on 11/16/19at 08:48; Start 11/13/19 at 10:00 Gadoterate Meglumine (Dotarem) 10 ml 1X ONCE IVP Last administered on 11/13/19at 15:00; Start 11/13/19 at 14:45; Stop 11/13/19 at 14:48; Status DC Gadoterate Meglumine (Dotarem) 15 ml 1X ONCE IVP Last administered on 11/13/19at 15:00; Start 11/13/19 at 14:45; Stop 11/13/19 at 14:48; Status DC Insulin Human Lispro (HumaLOG) 15 units TIDAC SQ Last administered on 11/15/19at 17:08; Start 11/15/19 at 08:15; Stop 11/16/19 at 08:53; Status DC Insulin Glargine (Lantus Syringe) 20 unit DAILY SQ Last administered on 11/15/19at 09:20; Start 11/15/19 at 09:00; Stop 11/16/19 at 08:53; Status DC Enoxaparin Sodium (Lovenox 40mg Syringe) 40 mg Q12H SQ Last administered on 11/15/19at 23:36; Start 11/15/19 at 10:00; Stop 11/16/19 at 07:50; Status DC Enoxaparin Sodium (Lovenox 40mg Syringe) 40 mg DAILY SQ Last administered on 11/16/19at 08:48; Start 11/16/19 at 09:00 Meropenem 1 gm/ Sodium Chloride 100 ml @ 200 mls/hr Q8HRS IV ; Start 11/16/19 at 14:00 Insulin Glargine (Lantus Syringe) 40 unit BID SQ ; Start 11/16/19 at 09:00 Insulin Human Lispro (HumaLOG) 20 units TIDAC SQ ; Start 11/16/19 at 11:30 Insulin Glargine (Lantus Syringe) 20 unit 1X ONCE SQ Last administered on 11/16/19at 09:48; Start 11/16/19 at 09:15; Stop 11/16/19 at 09:16; Status DC Active Scripts Active Enoxaparin Sodium 120 Mg/0.8 Ml Disp.syrin 120 Mg SQ Q12HR 28 Days Dexamethasone 4 Mg Tablet 4 Mg PO BID 14 Days Culturelle (Lactobacillus Rhamnosus Gg) 1 Each Cap.sprink 1 Cap PO BID 30 Days Amlodipine Besylate 5 Mg Tablet 5 Mg PO DAILY 30 Days Cefdinir 300 Mg Capsule 300 Mg PO BID 10 Days Reported Cymbalta (Duloxetine Hcl) 60 Mg Capsule. 1 Cap PO BID Lyrica (Pregabalin) 150 Mg Capsule 1 Cap PO BID Novolog (Insulin Aspart) 100 Unit/1 Ml Cartridge 10-45 Unit SQ QIDACHS Levemir (Insulin Detemir) 100 Unit/1 Ml Vial 30 Unit SQ HS Linzess (Linaclotide) 145 Mcg Capsule 145 Mcg PO PRN PRN Crestor (Rosuvastatin Calcium) 40 Mg Tablet 0.5 Tab PO DAILY Polyethylene Glycol 3350 2,500 Gm Powder 17 Gm PO PRN PRN Xanax (Alprazolam) 1 Mg Tablet 1 Tab PO TID Restasis (Cyclosporine) 1 Each Droperette 1 Drop EACHEYE BID Proair Hfa Inhaler (Albuterol Sulfate) 8.5 Gm Hfa.aer.ad 1 Puff INH PRN Q6HRS PRN Tramadol Hcl 50 Mg Tablet 1 Tab PO PRN Q8HRS PRN Ondansetron Hcl 4 Mg Tablet 2 Tab PO PRN Q8HRS PRN Nystatin 15 Gm Powder 1 Raza TP BID Lidocaine PATCH (Lidocaine) 1 Each Adh..patch 1 Each TP DAILY Fluticasone Propionate Nasal Tracy (Fluticasone Propionate) 16 Gm Tracy.susp 2 Tracy NS DAILY Percocet 5-325 Mg Tablet (Oxycodone/Acetaminophen) 1 Each Tablet 1-2 Tab PO Q4-6HRS PRN LAST DOSE AT NEXT DOSE Senna-Docusate Sodium Tablet (Sennosides/Docusate Sodium) 1 Each Tablet 1 Each PO BID LAST DOSE THIS AM NEXT DOSE TONIGHT Robaxin-750 (Methocarbamol) 750 Mg Tablet 1 Tab PO TID LAST DOSE AT 1400 (2PM) MAY HAVE THE NEXT DOSE AT 10 PM Protonix (Pantoprazole Sodium) 40 Mg Tablet.dr 40 Mg PO DAILY LST DOSE THIS AM NEXT DOSE TOMORROW AM Carafate (Sucralfate) 1 Gm Tablet 1 Tab PO TID Meds not given this hospital admission. May resume home medications as approved by Physician. MAY TAKE WHEN AVAILABLE Xarelto (Rivaroxaban) 15 Mg Tablet 15 Mg PO DAILY Meds not given this hospital admission. May resume home medications as approved by Physician. MAY RESUME WHEN AVAILABLE Metoprolol Succinate ( Xl ) (Metoprolol Succinate) 100 Mg Tab.er.24h 100 Mg PO HS LAST DOSE THIS AM NEXT DOSE TOMORROW AM Vitals/I & O Vital Sign - Last 24 Hours 11/15/19 11/15/19 11/15/19 11/15/19 14:07 15:00 15:20 15:21 Temp 98.3 98.3 Pulse 97 Resp 16 17 16 16 B/P (MAP) 100/53 (69) Pulse Ox 96 O2 Delivery Room Air Room Air Room Air Room Air 11/15/19 11/15/19 11/15/19 11/15/19 15:55 17:56 18:56 19:00 Temp 97.4 97.4 Pulse 102 Resp 16 16 20 16 B/P (MAP) 129/69 (89) Pulse Ox 95 O2 Delivery Room Air Room Air Room Air 11/15/19 11/15/19 11/15/19 11/15/19 19:28 19:35 19:58 21:23 Pulse 102 Resp 20 20 B/P (MAP) 129/69 O2 Delivery Room Air Room Air Room Air 11/15/19 11/15/19 11/16/19 11/16/19 23:00 23:32 00:02 02:23 Temp 97.9 97.9 Pulse 91 Resp 18 20 20 20 B/P (MAP) 113/64 (80) Pulse Ox 96 O2 Delivery Room Air Room Air Room Air 11/16/19 11/16/19 11/16/19 11/16/19 03:00 03:23 03:35 04:05 Temp 98.0 98.0 Pulse 88 Resp 18 20 20 20 B/P (MAP) 123/70 (87) Pulse Ox 95 O2 Delivery Room Air Room Air Room Air 11/16/19 11/16/19 11/16/19 11/16/19 07:00 07:42 08:47 08:47 Temp 98.2 98.2 Pulse 75 75 Resp 16 B/P (MAP) 106/58 (74) 106/58 Pulse Ox 98 98 O2 Delivery Room Air Room Air Room Air 11/16/19 11/16/19 11/16/19 09:43 09:59 09:59 Pulse Ox 98 98 98 O2 Delivery Room Air Room Air Room Air Intake and Output 11/15/19 11/15/19 11/16/19 15:00 23:00 07:00 Intake Total 834 ml 220 ml 480 ml Output Total 1500 ml 2200 ml Balance 834 ml -1280 ml -1720 ml Nutrition Consultation Dietary Evaluation: Recommendations by RD: Dietary education by RD, Increase Calorie Intake, Protein supplementation Comments: REC continue ADA/cardiac diet ,glucerna Expected Outcomes/Goals: PO intake to meet >75% est needs- met at times, goal ongoing Interpretation of weight loss: >5% in 1 month Malnutrition Findings: Food and Nutrition Intake (Sev: <50% est energy req 5days Weight Status: Morbidly Obese RAFAEL CAT MD Nov 16, 2019 11:18
--- NOTE | 2019-11-16 11:44 | NUR ---
Lacey from [facility] picked up referral. Admission pending. Discussed with Pt's significant other (ex) via phone.
[2019-11-16] MEDS ORDERED: FOSFOMYCIN TROMETHAMINE 3 GM PACKET PO ONE (12:30)
--- NOTE | 2019-11-16 12:33 | PDOC ---
Infectious Disease Note Subjective: Subjective Pt seen and examined ID consult dictated Vital Signs: Vital Signs Vital Signs Date Time Temp Pulse Resp B/P (MAP) Pulse Ox O2 Delivery O2 Flow Rate FiO2 11/16/19 11:00 98.1 75 18 102/54 (70) 75 Room Air 98.1 11/15/19 07:06 2.0 Medications: Inpatient Meds: Current Medications Medications (Trade) Dose Ordered Sig/Nikki Start Time Stop Time Status Last Admin Dose Admin Acetaminophen (Tylenol) 650 mg 1X PRN PRN 11/02/19 06:45 11/03/19 14:16 DC Al Hydroxide/Mg Hydroxide (Mylanta Plus Xs) 30 ml PRN Q3HRS PRN 11/12/19 15:15 Albumin Human 500 ml @ 125 mls/hr 1X ONCE 11/02/19 02:00 11/02/19 05:59 Cancel Albuterol Sulfate (Ventolin Neb Soln) 2.5 mg PRN Q6HRS PRN 11/01/19 16:30 Cancel Alprazolam (Xanax) 0.25 mg PRN TID PRN 11/01/19 17:11 11/16/19 03:32 0.25 MG Amlodipine Besylate (Norvasc) 5 mg DAILY 11/02/19 09:00 11/16/19 08:47 5 MG Atorvastatin Calcium (Lipitor) 80 mg QHS 11/01/19 21:00 11/15/19 21:23 80 MG Bacitracin (Bacitracin Zinc Oint Pkt) 1 pkt STK-MED ONCE 11/12/19 08:00 11/12/19 08:00 DC Bacitracin 46147 unit/Sodium Chloride 1,000 ml @ 1,000 mls/hr 1X ONCE 11/12/19 07:57 11/12/19 08:56 DC 11/12/19 11:26 Calcium Carbonate/ Glycine (Tums) 500 mg PRN Q3HRS PRN 11/12/19 15:15 Cefazolin Sodium 3 gm/Dextrose 100 ml @ 200 mls/hr 1X PREOP ONCE 11/12/19 10:30 11/12/19 10:59 DC 11/12/19 10:53 200 MLS/HR Ceftriaxone Sodium (Rocephin) 1 gm QHS 11/01/19 18:45 11/16/19 08:52 DC 11/15/19 21:26 1 GM Cellulose (Surgicel Hemostat 4x8) 1 each STK-MED ONCE 11/12/19 07:59 11/12/19 08:00 DC 11/12/19 12:01 1 EACH Cyclosporine (Restasis) 1 drop BID 11/01/19 21:00 11/16/19 08:45 1 DROP Desflurane (Suprane) 90 ml STK-MED ONCE 11/12/19 08:11 11/12/19 08:11 DC Dexamethasone Sodium Phosphate (Decadron) 20 mg STK-MED ONCE 11/12/19 07:48 11/12/19 07:48 DC Dextrose (Dextrose 50%-Water Syringe) 12.5 gm PRN Q15MIN PRN 11/12/19 15:15 Dextrose (Iv Dextrose 5%) 250 ml PRN Q15MIN PRN 11/12/19 15:15 Diphenhydramine HCl (Benadryl Oral Elixir) 12.5 mg 1X PRN PRN 11/02/19 06:45 11/03/19 14:16 DC Diphenhydramine HCl (Benadryl) 25 mg PRN Q6HRS PRN 11/12/19 15:15 Enoxaparin Sodium (Lovenox 40mg Syringe) 40 mg DAILY 11/16/19 09:00 11/16/19 08:48 40 MG Fentanyl Citrate (Fentanyl 2ml Vial) 100 mcg STK-MED ONCE 11/12/19 08:20 11/12/19 08:20 DC Ferrous Sulfate (Iron Oral Solution) 300 mg QD 11/13/19 10:00 11/16/19 08:48 300 MG Fluticasone Propionate (Flonase) 2 spray DAILY 11/02/19 09:00 11/11/19 08:19 2 SPRAY Gadoterate Meglumine (Dotarem) 15 ml 1X ONCE 11/13/19 14:45 11/13/19 14:48 DC 11/13/19 15:00 15 ML Gelatin (Gelfoam Size 12-7mm) 1 each STK-MED ONCE 11/12/19 13:59 11/12/19 13:59 DC 11/12/19 13:59 1 EACH Gelatin (Gelfoam Size 100) 1 each STK-MED ONCE 11/12/19 12:26 11/12/19 12:26 DC 11/12/19 12:25 1 EACH Hydralazine HCl (Apresoline Inj) 5 mg PRN Q6HRS PRN 11/12/19 15:15 Hydromorphone HCl (Dilaudid) 0.2 mg PRN Q1HR PRN 11/12/19 15:15 Info (CONTRAST GIVEN -- Rx MONITORING) 1 each PRN DAILY PRN 11/01/19 14:00 11/03/19 13:59 DC Insulin Glargine (Lantus Syringe) 20 unit 1X ONCE 11/16/19 09:15 11/16/19 09:16 DC 11/16/19 09:48 20 UNIT Insulin Human Lispro (HumaLOG VIAL for OP,RR ONLY) 4 unit 1X ONCE 11/12/19 16:45 11/12/19 16:46 DC Insulin Human Lispro (HumaLOG) 20 units TIDAC 11/16/19 11:30 11/16/19 11:27 20 UNITS Insulin Human Regular 100 unit/ Sodium Chloride 101 ml @ 12.484 mls/ hr ONCE ONCE 11/12/19 08:15 11/12/19 16:20 DC Iohexol (Omnipaque 300 Mg/ml) 75 ml 1X ONCE 11/01/19 13:45 11/01/19 13:46 DC 11/01/19 14:08 75 ML Labetalol HCl (Normodyne Iv Push) 5 mg PRN Q15MIN PRN 11/12/19 15:15 Lactobacillus Rhamnosus (Culturelle) 1 cap BID 11/01/19 21:00 11/09/19 16:57 DC 11/09/19 08:28 1 CAP Lactulose (LACTULOSE 300ML for RECTAL) 200 gm Q6HRS 11/02/19 18:00 11/04/19 14:44 DC 11/02/19 18:00 200 GM Lactulose (Lactulose) 20 gm PRN DAILY PRN 11/04/19 14:45 Levetiracetam (Keppra) 500 mg BID 11/09/19 21:00 11/16/19 08:47 500 MG Lidocaine (Lidoderm) 1 patch QHS 11/01/19 21:00 11/15/19 23:33 1 PATCH Lidocaine HCl (Buffered Lidocaine 1%) 3 ml 1X ONCE 11/05/19 08:45 11/05/19 08:50 DC 11/05/19 08:45 12 ML Lidocaine HCl (Lidocaine Pf 2% Vial) 5 ml STK-MED ONCE 11/12/19 07:48 11/12/19 07:48 DC Lidocaine HCl (Xylocaine-Mpf 1% 2ml Vial) 2 ml STK-MED ONCE 11/12/19 09:24 11/12/19 09:24 DC Lidocaine/ Epinephrine (LIDOCAINE 1%-EPI 1:100,000 Multi-Dose) 20 ml STK-MED ONCE 11/12/19 07:59 11/12/19 08:00 DC 11/12/19 11:26 10 ML Mannitol (Mannitol) 12.5 g STK-MED ONCE 11/12/19 09:22 11/12/19 09:23 DC Meropenem 1 gm/ Sodium Chloride 100 ml @ 200 mls/hr Q8HRS 11/16/19 14:00 Metoprolol Succinate (Toprol Xl) 100 mg HS 11/01/19 21:00 11/15/19 21:23 100 MG Midazolam HCl (Versed) 2 mg STK-MED ONCE 11/12/19 08:20 11/12/19 08:20 DC Miscellaneous (Lidoderm Patch Removal) 1 ea DAILY 11/02/19 09:00 11/16/19 08:53 1 EA Morphine Sulfate (Morphine Sulfate) 1 mg PRN Q10MIN PRN 11/12/19 07:00 11/09/19 17:30 DC Multi-Ingred Cream/Lotion/Oil/ Oint (Artificial Tears Eye Ointment) 7 lauren STK-MED ONCE 11/12/19 07:49 11/12/19 07:49 DC Nicardipine HCl 50 mg/Sodium Chloride 250 ml @ 25 mls/hr TITRATE PRN 11/12/19 15:15 11/15/19 08:16 DC Non-Formulary Medication 1 ea DAILY 11/12/19 09:00 11/16/19 08:47 1 EA Nystatin (Nystop) 1 lauren BID 11/01/19 21:00 11/16/19 08:48 1 LAUREN Ondansetron HCl (Zofran Odt) 8 mg PRN Q8HRS PRN 11/01/19 17:15 11/16/19 08:47 8 MG Ondansetron HCl (Zofran) 4 mg STK-MED ONCE 11/12/19 07:48 11/12/19 07:48 DC Oxycodone HCl (Roxicodone) 5 mg PRN Q6HRS PRN 11/04/19 14:45 11/16/19 08:47 5 MG Pantoprazole Sodium (Protonix) 40 mg DAILYAC 11/09/19 18:30 11/15/19 09:25 DC 11/14/19 08:19 40 MG Phenylephrine HCl (Tony-Synephrine Inj) 10 mg STK-MED ONCE 11/12/19 07:48 11/12/19 07:48 DC Polyethylene Glycol (miraLAX PACKET) 17 gm PRN DAILY PRN 11/01/19 17:11 11/15/19 09:14 17 GM Prochlorperazine Edisylate (Compazine) 5 mg PACU PRN PRN 11/12/19 07:00 11/12/19 19:56 DC Propofol 100 ml @ As Directed STK-MED ONCE 11/12/19 09:22 11/12/19 09:23 DC Remifentanil HCl (Ultiva) 2 mg STK-MED ONCE 11/12/19 07:48 11/12/19 07:49 DC Ringer's Solution 1,000 ml @ 30 mls/hr Q24H 11/12/19 07:00 11/12/19 18:59 DC 11/12/19 10:00 30 MLS/HR Rocuronium [place] (Zemuron) 50 mg STK-MED ONCE 11/12/19 09:11 11/12/19 09:12 DC Senna/Docusate Sodium (Senna Plus) 1 tab BID 11/01/19 21:00 11/16/19 08:47 1 TAB Sodium Chloride (Normal Saline Flush) 3 ml QSHIFT PRN 11/12/19 15:15 Sodium Chloride (SODIUM CHLORIDE 20ml) 20 ml STK-MED ONCE 11/12/19 07:57 11/12/19 07:57 DC Sucralfate (Carafate) 1 gm TIDAC 11/01/19 17:30 11/16/19 11:22 1 GM Thrombin 20,000 unit STK-MED ONCE 11/12/19 13:32 11/12/19 13:33 DC 11/12/19 13:35 20,000 UNIT Tramadol HCl (Ultram) 50 mg PRN Q8HRS PRN 11/01/19 19:45 11/15/19 17:56 50 MG Labs: Lab Laboratory Tests Test 11/15/19 16:55 11/15/19 20:00 11/16/19 07:40 11/16/19 11:12 Glucose (Fingerstick) 307 mg/dL (70-99) 326 mg/dL (70-99) 341 mg/dL (70-99) 315 mg/dL (70-99) Objective: Assessment: ESBL E Coli UTI on antiseizure meds frontoparietal mass CML Plan: Plan of Care pato merrem fosfomycin q48hrs pato bateman f/u path report FATOU SIMMONS MD Nov 16, 2019 12:33
--- NOTE | 2019-11-16 12:42 | PDOC ---
PROGRESS NOTES Subjective Subjective Denies acute changes. In good spirits. Objective Objective Vital Signs Date Time Temp Pulse Resp B/P (MAP) Pulse Ox O2 Delivery O2 Flow Rate FiO2 11/16/19 11:00 98.1 75 18 102/54 (70) 75 Room Air 98.1 11/15/19 07:06 2.0 Intake and Output 11/16/19 07:00 Intake Total 1534 ml Output Total 3700 ml Balance -2166 ml Intake Oral 1534 ml Output Urine Total 3700 ml Physical Exam Physical Exam AAOx4, NAD, slur speech, strength unchanged compared to yesterday, sensation unchanged LT, incision c/d/i with edd Assessment Assessment Problems Medical Problems: (1) Abdominal hemorrhage Status: Acute (2) Generalized weakness Status: Acute (3) Lactic acidosis Status: Acute (4) Leukocytosis Status: Acute Plan Plan of Care -final cranial path pending -continue therapies -continue steroid -abx for urine Comment Review of Relevant I have reviewed the following items mustapha (where applicable) has been applied. Labs Laboratory Tests Test 11/14/19 16:52 11/14/19 20:46 11/15/19 08:08 11/15/19 11:46 Glucose (Fingerstick) 320 mg/dL (70-99) 378 mg/dL (70-99) 308 mg/dL (70-99) 391 mg/dL (70-99) Test 11/15/19 16:55 11/15/19 20:00 11/16/19 07:40 11/16/19 11:12 Glucose (Fingerstick) 307 mg/dL (70-99) 326 mg/dL (70-99) 341 mg/dL (70-99) 315 mg/dL (70-99) Laboratory Tests Test 11/15/19 16:55 11/15/19 20:00 11/16/19 07:40 11/16/19 11:12 Glucose (Fingerstick) 307 mg/dL (70-99) 326 mg/dL (70-99) 341 mg/dL (70-99) 315 mg/dL (70-99) Microbiology 11/10/19 Urine Culture - Final, Complete 11/10/19 Urine Culture Result 1 (СВЕТЛАНА) - Final, Complete 11/10/19 Antimicrobic Susceptibility - Final, Complete 11/01/19 Blood Culture - Final, Complete NO GROWTH AFTER 5 DAYS Medications Current Medications Sodium Chloride 500 ml @ 500 mls/hr 1X ONCE IV Last administered on 11/01/19at 13:00; Start 11/01/19 at 13:00; Stop 11/01/19 at 13:59; Status DC Ondansetron HCl (Zofran) 4 mg 1X ONCE IV Last administered on 11/01/19at 13:26; Start 11/01/19 at 13:00; Stop 11/01/19 at 13:13; Status DC Hydromorphone HCl (Dilaudid) 0.5 mg 1X STAT IVP Last administered on 11/01/19at 13:26; Start 11/01/19 at 12:59; Stop 11/01/19 at 13:13; Status DC Iohexol (Omnipaque 300 Mg/ml) 75 ml 1X ONCE IV Last administered on 11/01/19at 14:08; Start 11/01/19 at 13:45; Stop 11/01/19 at 13:46; Status DC Info (CONTRAST GIVEN -- Rx MONITORING) 1 each PRN DAILY PRN MC SEE COMMENTS; Start 11/01/19 at 14:00; Stop 11/03/19 at 13:59; Status DC Hydromorphone HCl (Dilaudid) 0.5 mg 1X STAT IVP Last administered on 11/01/19at 16:53; Start 11/01/19 at 16:21; Stop 11/01/19 at 16:23; Status DC Sodium Chloride 1,000 ml @ 1,000 mls/hr 1X ONCE IV Last administered on 11/08at 16:30; Start 11/01/19 at 16:30; Stop 11/01/19 at 17:29; Status DC Sodium Chloride 500 ml @ 500 mls/hr 1X ONCE IV Last administered on 11/01/19at 16:30; Start 11/01/19 at 16:30; Stop 11/01/19 at 17:29; Status DC Albuterol Sulfate (Ventolin Neb Soln) 2.5 mg PRN Q6HRS PRN INH SHORTNESS OF BREATH; Start 11/01/19 at 16:30; Status Cancel Alprazolam (Xanax) 0.25 mg PRN TID PRN PO anxiety; Start 11/01/19 at 16:30; Stop 11/01/19 at 17:11; Status DC Amlodipine Besylate (Norvasc) 5 mg DAILY PO Last administered on 11/16/19 08:47; Start 11/02/19 at 09:00 Cyclosporine (Restasis) 1 drop BID OU Last administered on 11/16/19 08:45; Start 11/01/19 at 21:00 Fluticasone Propionate (Flonase) 2 spray DAILY NS Last administered on 11/11/19 08:19; Start 11/02/19 at 09:00 Lactobacillus Rhamnosus (Culturelle) 1 cap BID PO Last administered on 11/09/19 08:28; Start 11/01/19 at 21:00; Stop 11/09/19 at 16:57; Status DC Lidocaine (Lidoderm) 1 patch DAILY TP ; Start 11/02/19 at 09:00; Stop 11/01/19 at 20:34; Status DC Metoprolol Succinate (Toprol Xl) 100 mg HS PO Last administered on 11/15/19 21:23; Start 11/01/19 at 21:00 Nystatin (Nystop) 1 raza BID TP Last administered on 11/16/19 08:48; Start 11/01/19 at 21:00 Pantoprazole Sodium (Protonix) 40 mg DAILYAC PO Last administered on 11/09/19 08:28; Start 11/02/19 at 07:30; Stop 11/09/19 at 16:54; Status DC Senna/Docusate Sodium (Senna Plus) 1 tab BID PO Last administered on 11/16/19 08:47; Start 11/01/19 at 21:00 Sucralfate (Carafate) 1 gm TIDAC PO Last administered on 11/16/19 11:22; Start 11/01/19 at 17:30 Tramadol HCl (Ultram) 50 mg PRN Q8HRS PRN PO PAIN; Start 11/01/19 at 16:30; Stop 11/01/19 at 19:43; Status DC Insulin Glargine (Lantus Syringe) 30 unit QHS SQ Last administered on 11/06/19at 21:16; Start 11/01/19 at 21:00; Stop 11/07/19 at 15:56; Status DC Ondansetron HCl (Zofran Odt) 8 mg PRN Q8HRS PRN PO NAUSEA/VOMITING Last administered on 11/16/19 08:47; Start 11/01/19 at 17:15 Polyethylene Glycol (miraLAX PACKET) 17 gm PRN DAILY PRN PO CONSTIPATION, 1ST CHOICE Last administered on 11/15/19 09:14; Start 11/01/19 at 17:11 Atorvastatin Calcium (Lipitor) 80 mg QHS PO Last administered on 11/15/19 21:23; Start 11/01/19 at 21:00 Insulin Human Lispro (HumaLOG) 0-9 UNITS TIDAC SQ Last administered on 11/07/19 12:20; Start 11/01/19 at 16:30; Stop 11/07/19 at 15:56; Status DC Dextrose (Dextrose 50%-Water Syringe) 12.5 gm PRN Q15MIN PRN IV SEE COMMENTS; Start 11/01/19 at 16:30; Stop 11/12/19 at 15:36; Status DC Ondansetron HCl (Zofran) 4 mg PRN Q8HRS PRN IV NAUSEA/VOMITING; Start 11/01/19 at 16:30; Stop 11/02/19 at 16:29; Status DC Alprazolam (Xanax) 0.25 mg PRN TID PRN PO anxiety Last administered on 11/16/19 03:32; Start 11/01/19 at 17:11 Miscellaneous (Lidoderm Patch Removal) 1 ea QHS MC ; Start 11/01/19 at 21:00; Stop 11/01/19 at 20:34; Status DC Ceftriaxone Sodium (Rocephin) 1 gm QHS IVP Last administered on 11/15/19 21:26; Start 11/01/19 at 18:45; Stop 11/16/19 at 08:52; Status DC Tramadol HCl (Ultram) 50 mg PRN Q8HRS PRN PO MILD PAIN 1-3 Last administered on 11/15/19 17:56; Start 11/01/19 at 19:45 Hydromorphone HCl (Dilaudid) 1 mg PRN Q4HRS PRN IV SEVERE PAIN Last administered on 11/16/19 09:43; Start 11/01/19 at 20:15 Lidocaine (Lidoderm) 1 patch QHS TP Last administered on 11/15/19at 23:33; Start 11/01/19 at 21:00 Miscellaneous (Lidoderm Patch Removal) 1 ea DAILY MC Last administered on 11/16/19at 08:53; Start 11/02/19 at 09:00 Albumin Human 500 ml @ 125 mls/hr 1X ONCE IV ; Start 11/02/19 at 02:00; Stop 11/02/19 at 05:59; Status Cancel Acetaminophen (Tylenol) 650 mg 1X PRN PRN PO PRE-TRANSFUSION; Start 11/02/19 at 06:45; Stop 11/03/19 at 14:16; Status DC Diphenhydramine HCl (Benadryl Oral Elixir) 12.5 mg 1X PRN PRN PO PRE- TRANSFUSION; Start 11/02/19 at 06:45; Stop 11/03/19 at 14:16; Status DC Diphenhydramine HCl (Benadryl) 25 mg PRN 1X PRN PO PRE-TRANSFUSION; Start 11/02/19 at 06:45; Stop 11/03/19 at 14:16; Status DC Lactulose (LACTULOSE 300ML for RECTAL) 200 gm Q6HRS OR Last administered on 11/02/19at 18:00; Start 11/02/19 at 18:00; Stop 11/04/19 at 14:44; Status DC Sodium Chloride 1,000 ml @ 100 mls/hr Q10H IV Last administered on 11/13/19at 15:30; Start 11/02/19 at 12:00; Stop 11/14/19 at 11:28; Status DC Lactulose (Lactulose) 20 gm PRN DAILY PRN PO CONSTIPATION, 2ND CHOICE; Start 11/04/19 at 14:45 Oxycodone HCl (Roxicodone) 5 mg PRN Q6HRS PRN PO MODERATE TO SEVERE PAIN Last administered on 11/16/19at 08:47; Start 11/04/19 at 14:45 Lidocaine HCl (Buffered Lidocaine 1%) 3 ml STK-MED ONCE .ROUTE ; Start 11/05/19 at 08:13; Stop 11/05/19 at 08:13; Status DC Lidocaine HCl (Buffered Lidocaine 1%) 3 ml STK-MED ONCE .ROUTE ; Start 11/05/19 at 08:14; Stop 11/05/19 at 08:14; Status DC Midazolam HCl (Versed) 2 mg STK-MED ONCE .ROUTE ; Start 11/05/19 at 08:40; Stop 11/05/19 at 08:40; Status DC Fentanyl Citrate (Fentanyl 2ml Vial) 100 mcg STK-MED ONCE .ROUTE ; Start 11/05/19 at 08:40; Stop 11/05/19 at 08:41; Status DC Lidocaine HCl (Buffered Lidocaine 1%) 3 ml 1X ONCE IJ Last administered on 11/05/19at 08:45; Start 11/05/19 at 08:45; Stop 11/05/19 at 08:50; Status DC Midazolam HCl (Versed) 2 mg 1X ONCE IV Last administered on 11/05/19at 08:45; Start 11/05/19 at 08:45; Stop 11/05/19 at 08:50; Status DC Fentanyl Citrate (Fentanyl 2ml Vial) 100 mcg 1X ONCE IV Last administered on 11/05/19at 08:45; Start 11/05/19 at 08:45; Stop 11/05/19 at 08:50; Status DC Dexamethasone Sodium Phosphate (Decadron) 4 mg Q6HRS IVP Last administered on 1 01/17/19at 11:23; Start 11/06/19 at 09:00 Insulin Glargine (Lantus Syringe) 40 unit QHS SQ Last administered on 11/15/19at 21:00; Start 11/07/19 at 21:00; Stop 11/16/19 at 08:53; Status DC Insulin Human Lispro (HumaLOG) 10 units TIDAC SQ Last administered on 11/14/19at 17:31; Start 11/07/19 at 16:30; Stop 11/15/19 at 08:16; Status DC Insulin Human Lispro (HumaLOG) 0-9 UNITS TIDWMEALS SQ Last administered on 11/11/19at 17:13; Start 11/07/19 at 17:00; Stop 11/12/19 at 15:37; Status DC Insulin Human Lispro (HumaLOG) 19 units 1X ONCE SQ Last administered on 11/09/19at 12:41; Start 11/09/19 at 12:15; Stop 11/09/19 at 12:16; Status DC Insulin Human Lispro (HumaLOG) 5 units 1X ONCE SQ Last administered on 11/09/19at 13:52; Start 11/09/19 at 13:30; Stop 11/09/19 at 13:31; Status DC Non-Formulary Medication 1 ea DAILY PO ; Start 11/09/19 at 16:30; Status Cancel Ondansetron HCl (Zofran) 4 mg PRN Q6HRS PRN IV NAUSEA/VOMITING; Start 11/12/19 at 07:00; Stop 11/12/19 at 19:56; Status DC Fentanyl Citrate (Fentanyl 2ml Vial) 25 mcg PRN Q5MIN PRN IV MILD PAIN 1-3; Start 11/12/19 at 07:00; Stop 11/12/19 at 19:56; Status DC Fentanyl Citrate (Fentanyl 2ml Vial) 50 mcg PRN Q5MIN PRN IV MODERATE TO SEVERE PAIN; Start 11/12/19 at 07:00; Stop 11/12/19 at 19:56; Status DC Morphine Sulfate (Morphine Sulfate) 1 mg PRN Q10MIN PRN IV SEVERE PAIN 7-10; Start 11/12/19 at 07:00; Stop 11/09/19 at 17:30; Status DC Ringer's Solution 1,000 ml @ 30 mls/hr Q24H IV Last administered on 11/12/19at 10:00; Start 11/12/19 at 07:00; Stop 11/12/19 at 18:59; Status DC Lidocaine HCl (Xylocaine-Mpf 1% 2ml Vial) 2 ml PRN 1X PRN ID PRIOR TO IV START; Start 11/12/19 at 07:00; Stop 11/12/19 at 19:56; Status DC Hydromorphone HCl (Dilaudid) 0.5 mg PRN Q10MIN PRN IV SEV PAIN, Second choice; Start 11/12/19 at 07:00; Stop 11/12/19 at 19:56; Status DC Prochlorperazine Edisylate (Compazine) 5 mg PACU PRN PRN IV NAUSEA, MRX1; Start 11/12/19 at 07:00; Stop 11/12/19 at 19:56; Status DC Pantoprazole Sodium (Protonix) 40 mg DAILYAC PO Last administered on 11/14/19at 08:19; Start 11/09/19 at 18:30; Stop 11/15/19 at 09:25; Status DC Levetiracetam (Keppra) 500 mg BID PO Last administered on 11/16/19at 08:47; Start 11/09/19 at 21:00 Non-Formulary Medication 1 ea DAILY PO Last administered on 11/16/19at 08:47; Start 11/12/19 at 09:00 Insulin Human Lispro (HumaLOG) 8 units 1X ONCE SQ Last administered on 11/10/19at 12:32; Start 11/10/19 at 12:15; Stop 11/10/19 at 12:16; Status DC Propofol 20 ml @ As Directed STK-MED ONCE IV ; Start 11/12/19 at 07:48; Stop 11/12/19 at 07:48; Status DC Dexamethasone Sodium Phosphate (Decadron) 20 mg STK-MED ONCE .ROUTE ; Start 11/12/19 at 07:48; Stop 11/12/19 at 07:48; Status DC Lidocaine HCl (Lidocaine Pf 2% Vial) 5 ml STK-MED ONCE .ROUTE ; Start 11/12/19 at 07:48; Stop 11/12/19 at 07:48; Status DC Ondansetron HCl (Zofran) 4 mg STK-MED ONCE .ROUTE ; Start 11/12/19 at 07:48; Stop 11/12/19 at 07:48; Status DC Phenylephrine HCl (Tony-Synephrine Inj) 10 mg STK-MED ONCE .ROUTE ; Start 11/12/19 at 07:48; Stop 11/12/19 at 07:48; Status DC Propofol 50 ml @ As Directed STK-MED ONCE IV ; Start 11/12/19 at 07:48; Stop 11/12/19 at 07:48; Status DC Rocuronium [place] (Zemuron) 50 mg STK-MED ONCE .ROUTE ; Start 11/12/19 at 07:48; Stop 11/12/19 at 07:48; Status DC Remifentanil HCl (Ultiva) 2 mg STK-MED ONCE IV ; Start 11/12/19 at 07:48; Stop 11/12/19 at 07:49; Status DC Sodium Chloride (SODIUM CHLORIDE 20ml) 20 ml STK-MED ONCE IJ ; Start 11/12/19 at 07:49; Stop 11/12/19 at 07:49; Status DC Multi-Ingred Cream/Lotion/Oil/ Oint (Artificial Tears Eye Ointment) 7 raza STK- MED ONCE .ROUTE ; Start 11/12/19 at 07:49; Stop 11/12/19 at 07:49; Status DC Bacitracin 72401 unit/Sodium Chloride 1,000 ml @ 1,000 mls/hr 1X ONCE IRR Last administered on 11/12/19 11:26; Start 11/12/19 at 07:57; Stop 11/12/19 at 08:56; Status DC Sodium Chloride (SODIUM CHLORIDE 20ml) 20 ml STK-MED ONCE IJ ; Start 11/12/19 at 07:57; Stop 11/12/19 at 07:57; Status DC Gelatin (Gelfoam Size 100) 1 each STK-MED ONCE .ROUTE Last administered on 11/12/19 11:26; Start 11/12/19 at 07:59; Stop 11/12/19 at 07:59; Status DC Cellulose (Surgicel Hemostat 4x8) 1 each STK-MED ONCE .ROUTE Last administered on 11/12/19at 12:01; Start 11/12/19 at 07:59; Stop 11/12/19 at 08:00; Status DC Lidocaine/ Epinephrine (LIDOCAINE 1%-EPI 1:100,000 Multi-Dose) 20 ml STK-MED ONCE .ROUTE Last administered on 11/12/19 11:26; Start 11/12/19 at 07:59; Stop 11/12/19 at 08:00; Status DC Thrombin 20,000 unit STK-MED ONCE TP Last administered on 11/12/19at 11:26; Start 11/12/19 at 08:00; Stop 11/12/19 at 08:00; Status DC Bacitracin (Bacitracin Zinc Oint Pkt) 1 pkt STK-MED ONCE TP ; Start 11/12/19 at 08:00; Stop 11/12/19 at 08:00; Status DC Propofol 100 ml @ As Directed STK-MED ONCE IV ; Start 11/12/19 at 08:02; Stop 11/12/19 at 08:02; Status DC Insulin Human Lispro (HumaLOG) 11 units 1X ONCE SQ Last administered on 11/12/19at 08:15; Start 11/12/19 at 08:15; Stop 11/12/19 at 08:16; Status DC Gadoterate Meglumine (Dotarem) 24.8 ml 1X ONCE IVP Last administered on 11/12/19at 08:15; Start 11/12/19 at 08:15; Stop 11/12/19 at 08:16; Status DC Insulin Human Regular 100 unit/ Sodium Chloride 101 ml @ 12.484 mls/ hr ONCE ONCE IV ; Start 11/12/19 at 08:15; Stop 11/12/19 at 16:20; Status DC Desflurane (Suprane) 90 ml STK-MED ONCE IH ; Start 11/12/19 at 08:11; Stop 11/12/19 at 08:11; Status DC Fentanyl Citrate (Fentanyl 2ml Vial) 100 mcg STK-MED ONCE .ROUTE ; Start 11/12/19 at 08:20; Stop 11/12/19 at 08:20; Status DC Midazolam HCl (Versed) 2 mg STK-MED ONCE .ROUTE ; Start 11/12/19 at 08:20; Stop 11/12/19 at 08:20; Status DC Rocuronium [place] (Zemuron) 50 mg STK-MED ONCE .ROUTE ; Start 11/12/19 at 09:11; Stop 11/12/19 at 09:12; Status DC Mannitol (Mannitol) 12.5 g STK-MED ONCE .ROUTE ; Start 11/12/19 at 09:22; Stop 11/12/19 at 09:23; Status DC Propofol 100 ml @ As Directed STK-MED ONCE IV ; Start 11/12/19 at 09:22; Stop 11/12/19 at 09:23; Status DC Lidocaine HCl (Xylocaine-Mpf 1% 2ml Vial) 2 ml STK-MED ONCE .ROUTE ; Start 11/12/19 at 09:24; Stop 11/12/19 at 09:24; Status DC Cefazolin Sodium 3 gm/Dextrose 100 ml @ 200 mls/hr 1X PREOP ONCE IV Last administered on 11/12/19at 10:53; Start 11/12/19 at 10:30; Stop 11/12/19 at 10:59; Status DC Gelatin (Gelfoam Size 12-7mm) 1 each STK-MED ONCE .ROUTE Last administered on 11/12/19 12:03; Start 11/12/19 at 11:59; Stop 11/12/19 at 12:01; Status DC Thrombin 20,000 unit STK-MED ONCE TP Last administered on 11/12/19at 12:04; Start 11/12/19 at 12:00; Stop 11/12/19 at 12:01; Status DC Gelatin (Gelfoam Size 100) 1 each STK-MED ONCE .ROUTE Last administered on 11/12/19at 12:25; Start 11/12/19 at 12:26; Stop 11/12/19 at 12:26; Status DC Gelatin (Gelfoam Size 12-7mm) 1 each STK-MED ONCE .ROUTE Last administered on 11/12/19 13:35; Start 11/12/19 at 13:32; Stop 11/12/19 at 13:33; Status DC Thrombin 20,000 unit STK-MED ONCE TP Last administered on 11/12/19 13:35; Start 11/12/19 at 13:32; Stop 11/12/19 at 13:33; Status DC Gelatin (Gelfoam Size 12-7mm) 1 each STK-MED ONCE .ROUTE Last administered on 11/12/19 13:55; Start 11/12/19 at 13:55; Stop 11/12/19 at 13:55; Status DC Gelatin (Gelfoam Size 12-7mm) 1 each STK-MED ONCE .ROUTE Last administered on 11/12/19 13:59; Start 11/12/19 at 13:59; Stop 11/12/19 at 13:59; Status DC Labetalol HCl (Normodyne Iv Push) 5 mg PRN Q15MIN PRN IVP HYPERTENSION; Start 11/12/19 at 15:15 Nicardipine HCl 50 mg/Sodium Chloride 250 ml @ 25 mls/hr TITRATE PRN IV SBP 90-140; Start 11/12/19 at 15:15; Stop 11/15/19 at 08:16; Status DC Hydralazine HCl (Apresoline Inj) 5 mg PRN Q6HRS PRN IVP TO KEEP SBP<140mmHg; Start 11/12/19 at 15:15 Al Hydroxide/Mg Hydroxide (Mylanta Plus Xs) 30 ml PRN Q3HRS PRN PO HEARTBURN / GAS; Start 11/12/19 at 15:15 Calcium Carbonate/ Glycine (Tums) 500 mg PRN Q3HRS PRN PO INDIGESTION; Start 11/12/19 at 15:15 Diphenhydramine HCl (Benadryl) 25 mg PRN Q6HRS PRN PO ITCHING; Start 11/12/19 at 15:15 Diphenhydramine HCl (Benadryl) 25 mg PRN Q6HRS PRN IV ITCHING; Start 11/12/19 at 15:15 Sodium Chloride (Normal Saline Flush) 3 ml QSHIFT PRN IV AFTER MEDS AND BLOOD DRAWS; Start 11/12/19 at 15:15 Insulin Human Lispro (HumaLOG) 0-5 UNITS TIDWMEALS SQ Last administered on 11/16/19at 11:27; Start 11/12/19 at 17:00 Dextrose (Dextrose 50%-Water Syringe) 12.5 gm PRN Q15MIN PRN IV SEE COMMENTS; Start 11/12/19 at 15:15 Dextrose (Iv Dextrose 5%) 250 ml PRN Q15MIN PRN IV SEE COMMENTS; Start 11/12/19 at 15:15 Hydromorphone HCl (Dilaudid) 0.2 mg PRN Q1HR PRN IV MODERATE PAIN; Start 11/12/19 at 15:15 Insulin Human Lispro (HumaLOG VIAL for OP,RR ONLY) 0-10 units PRN Q1HR PRN SQ PER PROTOCOL Last administered on 11/12/19at 15:50; Start 11/12/19 at 16:00; Stop 11/12/19 at 19:54; Status DC Insulin Human Lispro (HumaLOG VIAL for OP,RR ONLY) 4 unit 1X ONCE SQ ; Start 11/12/19 at 16:45; Stop 11/12/19 at 16:46; Status DC Ferrous Sulfate (Iron Oral Solution) 300 mg QD PO Last administered on 11/16/19at 08:48; Start 11/13/19 at 10:00 Gadoterate Meglumine (Dotarem) 10 ml 1X ONCE IVP Last administered on 11/13/19at 15:00; Start 11/13/19 at 14:45; Stop 11/13/19 at 14:48; Status DC Gadoterate Meglumine (Dotarem) 15 ml 1X ONCE IVP Last administered on 11/13/19at 15:00; Start 11/13/19 at 14:45; Stop 11/13/19 at 14:48; Status DC Insulin Human Lispro (HumaLOG) 15 units TIDAC SQ Last administered on 11/15/19at 17:08; Start 11/15/19 at 08:15; Stop 11/16/19 at 08:53; Status DC Insulin Glargine (Lantus Syringe) 20 unit DAILY SQ Last administered on 11/15/19at 09:20; Start 11/15/19 at 09:00; Stop 11/16/19 at 08:53; Status DC Enoxaparin Sodium (Lovenox 40mg Syringe) 40 mg Q12H SQ Last administered on 11/15/19at 23:36; Start 11/15/19 at 10:00; Stop 11/16/19 at 07:50; Status DC Enoxaparin Sodium (Lovenox 40mg Syringe) 40 mg DAILY SQ Last administered on 11/16/19at 08:48; Start 11/16/19 at 09:00 Meropenem 1 gm/ Sodium Chloride 100 ml @ 200 mls/hr Q8HRS IV ; Start 11/16/19 at 14:00; Stop 11/16/19 at 12:31; Status DC Insulin Glargine (Lantus Syringe) 40 unit BID SQ ; Start 11/16/19 at 09:00 Insulin Human Lispro (HumaLOG) 20 units TIDAC SQ Last administered on 11/16/19at 11:27; Start 11/16/19 at 11:30 Insulin Glargine (Lantus Syringe) 20 unit 1X ONCE SQ Last administered on 11/16/19at 09:48; Start 11/16/19 at 09:15; Stop 11/16/19 at 09:16; Status DC Fosfomycin Tromethamine (Monurol) 3 gm 1X ONCE PO ; Start 11/16/19 at 12:30; Stop 11/16/19 at 12:33; Status DC Fosfomycin Tromethamine (Monurol) 3 gm 1X ONCE PO ; Start 11/18/19 at 09:00; Stop 11/18/19 at 09:01 Active Scripts Active Enoxaparin Sodium 120 Mg/0.8 Ml Disp.syrin 120 Mg SQ Q12HR 28 Days Dexamethasone 4 Mg Tablet 4 Mg PO BID 14 Days Culturelle (Lactobacillus Rhamnosus Gg) 1 Each Cap.sprink 1 Cap PO BID 30 Days Amlodipine Besylate 5 Mg Tablet 5 Mg PO DAILY 30 Days Cefdinir 300 Mg Capsule 300 Mg PO BID 10 Days Reported Cymbalta (Duloxetine Hcl) 60 Mg Capsule.dr 1 Cap PO BID Lyrica (Pregabalin) 150 Mg Capsule 1 Cap PO BID Novolog (Insulin Aspart) 100 Unit/1 Ml Cartridge 10-45 Unit SQ QIDACHS Levemir (Insulin Detemir) 100 Unit/1 Ml Vial 30 Unit SQ HS Linzess (Linaclotide) 145 Mcg Capsule 145 Mcg PO PRN PRN Crestor (Rosuvastatin Calcium) 40 Mg Tablet 0.5 Tab PO DAILY Polyethylene Glycol 3350 2,500 Gm Powder 17 Gm PO PRN PRN Xanax (Alprazolam) 1 Mg Tablet 1 Tab PO TID Restasis (Cyclosporine) 1 Each Droperette 1 Drop EACHEYE BID Proair Hfa Inhaler (Albuterol Sulfate) 8.5 Gm Hfa.aer.ad 1 Puff INH PRN Q6HRS PRN Tramadol Hcl 50 Mg Tablet 1 Tab PO PRN Q8HRS PRN Ondansetron Hcl 4 Mg Tablet 2 Tab PO PRN Q8HRS PRN Nystatin 15 Gm Powder 1 Raza TP BID Lidocaine PATCH (Lidocaine) 1 Each Adh..patch 1 Each TP DAILY Fluticasone Propionate Nasal Prentice (Fluticasone Propionate) 16 Gm Prentice.susp 2 Prentice NS DAILY Percocet 5-325 Mg Tablet (Oxycodone/Acetaminophen) 1 Each Tablet 1-2 Tab PO Q4-6HRS PRN LAST DOSE AT NEXT DOSE Senna-Docusate Sodium Tablet (Sennosides/Docusate Sodium) 1 Each Tablet 1 Each PO BID LAST DOSE THIS AM NEXT DOSE TONIGHT Robaxin-750 (Methocarbamol) 750 Mg Tablet 1 Tab PO TID LAST DOSE AT 1400 (2PM) MAY HAVE THE NEXT DOSE AT 10 PM Protonix (Pantoprazole Sodium) 40 Mg Tablet.dr 40 Mg PO DAILY LST DOSE THIS AM NEXT DOSE TOMORROW AM Carafate (Sucralfate) 1 Gm Tablet 1 Tab PO TID Meds not given this hospital admission. May resume home medications as approved by Physician. MAY TAKE WHEN AVAILABLE Xarelto (Rivaroxaban) 15 Mg Tablet 15 Mg PO DAILY Meds not given this hospital admission. May resume home medications as approved by Physician. MAY RESUME WHEN AVAILABLE Metoprolol Succinate ( Xl ) (Metoprolol Succinate) 100 Mg Tab.er.24h 100 Mg PO HS LAST DOSE THIS AM NEXT DOSE TOMORROW AM Vitals/I & O Vital Sign - Last 24 Hours 11/15/19 11/15/19 11/15/19 11/15/19 14:07 15:00 15:20 15:21 Temp 98.3 98.3 Pulse 97 Resp 16 17 16 16 B/P (MAP) 100/53 (69) Pulse Ox 96 O2 Delivery Room Air Room Air Room Air Room Air 11/15/19 11/15/19 11/15/19 11/15/19 15:55 17:56 18:56 19:00 Temp 97.4 97.4 Pulse 102 Resp 16 16 20 16 B/P (MAP) 129/69 (89) Pulse Ox 95 O2 Delivery Room Air Room Air Room Air 11/15/19 11/15/19 11/15/19 11/15/19 19:28 19:35 19:58 21:23 Pulse 102 Resp 20 20 B/P (MAP) 129/69 O2 Delivery Room Air Room Air Room Air 11/15/19 11/15/19 11/16/19 11/16/19 23:00 23:32 00:02 02:23 Temp 97.9 97.9 Pulse 91 Resp 18 20 20 20 B/P (MAP) 113/64 (80) Pulse Ox 96 O2 Delivery Room Air Room Air Room Air 11/16/19 11/16/19 11/16/19 11/16/19 03:00 03:23 03:35 04:05 Temp 98.0 98.0 Pulse 88 Resp 18 20 20 20 B/P (MAP) 123/70 (87) Pulse Ox 95 O2 Delivery Room Air Room Air Room Air 11/16/19 11/16/19 11/16/19 11/16/19 07:00 07:42 08:47 08:47 Temp 98.2 98.2 Pulse 75 75 Resp 16 B/P (MAP) 106/58 (74) 106/58 Pulse Ox 98 98 O2 Delivery Room Air Room Air Room Air 11/16/19 11/16/19 11/16/19 11/16/19 09:43 09:59 09:59 11:00 Temp 98.1 98.1 Pulse 75 Resp 18 B/P (MAP) 102/54 (70) Pulse Ox 98 98 98 75 O2 Delivery Room Air Room Air Room Air Room Air Intake and Output 11/15/19 11/15/19 11/16/19 15:00 23:00 07:00 Intake Total 834 ml 220 ml 480 ml Output Total 1500 ml 2200 ml Balance 834 ml -1280 ml -1720 ml Nutrition Consultation Dietary Evaluation: Recommendations by RD: Dietary education by RD, Increase Calorie Intake, Protein supplementation Comments: REC continue ADA/cardiac diet ,glucerna Expected Outcomes/Goals: PO intake to meet >75% est needs- met at times, goal ongoing Interpretation of weight loss: >5% in 1 month Malnutrition Findings: Food and Nutrition Intake (Sev: <50% est energy req 5days Weight Status: Morbidly Obese BINH WELCH MD Nov 16, 2019 12:42
[2019-11-16] MEDS ORDERED: MEROPENEM 1 GM in IV NORMAL SALINE 100ML 100 ML IV SCH (14:00)
[2019-11-16 15:00] VITALS: BP 103/57
--- NOTE | 2019-11-16 15:05 | CONS ---
DATE OF CONSULTATION: 11/16/2019 REFERRING PHYSICIAN: Dr. Infante. REASON FOR CONSULTATION: Possible ESBL, E. coli UTI. HISTORY OF PRESENT ILLNESS: A 49-year-old female well known to our service from last admission, see initial consult 10/23/2019 for full details. The patient underwent debulking of parietal mass on 11/12 with resultant right-sided weakness. The patient was also diagnosed with chronic myelogenous leukemia from bone marrow biopsy 11/05/2019 . Hematology team is following . The patient underwent urine cultures on 11/10, which showed ESBL, MDR UTI. The patient had been on Rocephin from admission until now. She was started on meropenem today. She has nausea and vomiting, which she attributes to being started on chemo. She denies any fevers, chills, does have headache, right-sided weakness. Pathology report is still pending from surgery. She also had vasogenic edema with 4 mm [id number] midline shift. The patient does have some cognitive impairment. She has been on levetiracetam and Decadron taper per Neurosurgery. She has been followed by Oncology for CML. The patient also had abdominal hematoma, which improved with stopping her anticoagulation. PAST MEDICAL HISTORY: Parietal mass, status post debulking 11/12, pathology pending at this time with vasogenic edema, right-sided weakness, headache, cognitive impairment, CML, hypertension, hyperlipidemia, asthma, pulmonary embolus, pneumonia, peripheral neuropathy, peptic ulcer disease, depression, anxiety, low back pain, diabetes. PAST SURGICAL HISTORY: Status post appendectomy, cholecystectomy, , hysterectomy, back surgery. SOCIAL HISTORY: Quit smoking in 12/2018. No alcohol, no drugs. Lives at home with family. FAMILY HISTORY: As per HPI. CURRENT MEDICATIONS: IV meropenem, was on IV Rocephin. Other medications reviewed in medication list. ALLERGIES: ERYTHROMYCIN, CODEINE, MORPHINE. REVIEW OF SYSTEMS: Negative except for above in HPI. PHYSICAL EXAMINATION: VITAL SIGNS: Temperature 98.1, pulse 75, respiratory rate 18, blood pressure 102/54, oxygen saturation 75% on room air. GENERAL: Obese, alert female, eating lunch, sitting upright in chair, oriented to time, place, and person. HEENT: Anicteric, no thrush. Oral mucosa moist. No oropharyngeal lesion. Scalp incision well approximated, no drainage, no surrounding redness, edd intact. NECK: Supple. Right IJ in place, clean. LUNGs: Clear bilaterally HEART: S1, S2. No gallops or murmurs. ABDOMEN: Soft, nontender. Ecchymosis present improving per patient, nontender. EXTREMITIES: Right lower extremity edema. Left lower extremity, no edema. No cyanosis. DERMATOLOGIC: Warm and dry. No generalized rash except for above on abdominal wall. PSYCHIATRIC: Pleasant mood and affect. LABORATORY DATA: WBC 31.4, was 43.7, hemoglobin 8, hematocrit 25.2, platelets 361. Sodium 136, potassium 4.0, chloride 101, bicarbonate 30, BUN 24, creatinine 0.5, glucose 279, calcium 7.8, total bilirubin 1.0, AST 23, ALT 56, alkaline phosphatase 58, albumin 2.2. UA 11/10, leukocyte esterase trace, wbc's 5-10. IMAGING: Last abdominal CT 11/01 shows large complex collection in the right subcutaneous flank compatible with massive hematoma including a ____ hemorrhage, left renal lesion most likely compatible with cyst. MICROBIOLOGY: Urine culture 11/10 shows a possible ESBL, sensitive to ceftazidime, imipenem, meropenem, nitrofurantoin, tetracycline, Tygacil. IMPRESSION: 1. Extended-spectrum beta-lactamase, Escherichia coli urinary tract infection. 2. Left frontoparietal lobe tumor, status post debulking 11/12/2019, pathology pending at this time. 3. Chronic Headache. 4. Cognitive impairment. 5. Staring spells. On Keppra. 6. Chronic myelogenous leukemia diagnosed 11/05, 7. Abdominal hemorrhage attributed to anticoagulation, now stable. 8. Status post craniotomy 11/12. 9. Diabetes mellitus 2. 10. History of pulmonary embolism. 11. Obstructive sleep apnea. 12. Attention deficit hyperactivity disorder. 13. Obesity. 14. Right-sided weakness . 15. Generalized debility. 16. Chronic back pain and sciatica, right leg. RECOMMENDATIONS: 1. Agree to discontinue [place]. 2. Discontinue meropenem . 3. We will start the patient on fosfomycin 3 gm po q 48hr for 2 doses. 4. Continue supportive care. Thank you, Dr. Infante, for consulting Infectious Disease to participate in this patient's care. Discussed with [id number] at bedside. FATOU SIMMONS MD DR: DEBBIE/violetta JOB#: [id number] / [id number] EDU
[2019-11-16 19:00] VITALS: BP 103/57
[2019-11-16] MEDS: ATORVASTATIN CALCIUM 40 MG TABLET. PO SCH (21:24)
[2019-11-16] MEDS: METOPROLOL SUCC 24HR ER 100 MG TAB.ER.24H. PO SCH (21:25)
[2019-11-16] MEDS: LIDOCAINE (700MG/PATCH) PATCH. TP SCH (21:26)
[2019-11-16 23:00] VITALS: BP 105/55
[2019-11-16 23:07] LABS: HEMOGLOBIN A1C 7.5 % (4.8-5.6)
[2019-11-17] MEDS: HYDROmorphone 2 MG/ML VIAL IV PRN ×5 (02:20→21:04)
[2019-11-17 03:00] VITALS: BP 99/57
[2019-11-17] MEDS: DEXAMETHASONE SOD PHOS 4 MG/ML VIAL IVP SCH (06:03)
[2019-11-17] MEDS: SUCRALFATE 1 GM TABLET. PO SCH ×3 (06:18→16:26)
[2019-11-17 06:27] LABS: BASO % 0 % (0-3); EOS % 0 % (0-3); HEMATOCRIT 26.7 % (36.0-47.0); HEMOGLOBIN 8.5 g/dL (12.0-15.5); LYMPH # 0.9 x10^3/uL (1.0-4.8); LYMPH % 5 % (24-48); MEAN CORPUSCULAR HEMOGLOBIN 30 pg (25-35); MEAN CORPUSCULAR HGB CONC 32 g/dL (31-37); MEAN CORPUSCULAR VOLUME 93 fL (79-100); MONO # 0.4 x10^3/uL (0.0-1.1); MONO % 2 % (0-9); NEUT # 17.2 x10^3/uL (1.8-7.7); NEUT % 93 % (31-73); PLATELET COUNT 348 x10^3/uL (140-400); RED BLOOD COUNT 2.87 x10^6/uL (3.50-5.40); RED CELL DISTRIBUTION WIDTH 18.8 % (11.5-14.5); WHITE BLOOD COUNT 18.5 x10^3/uL (4.0-11.0)
[2019-11-17 06:41] LABS: CALCIUM 8.4 mg/dL (8.5-10.1); CREATININE 0.6 mg/dL (0.6-1.0); GFR 107.2
[2019-11-17 07:29] VITALS: BP 96/52
[2019-11-17] MEDS: FERROUS SULFATE ORAL 300 MG/5 ML SOLUTION. PO SCH (08:29)
[2019-11-17] MEDS: levETIRAcetam 500 MG TABLET PO SCH ×2 (08:29→21:04)
[2019-11-17] MEDS: SENNOSIDES/DOCUSATE 8.6/50MG TABLET. PO SCH ×2 (08:30→21:04)
[2019-11-17] MEDS: cycloSPORINE 0.05% OPHTH DROPERETTE. OU SCH ×2 (08:30→21:05)
[2019-11-17] MEDS: PATCH REMOVAL. MC SCH (08:30)
[2019-11-17] MEDS: oxyCODONE IR 5 MG TABLET PO PRN ×2 (08:30→17:43)
[2019-11-17] MEDS: ENOXAPARIN 40 MG/0.4 ML SYRINGE. SQ SCH (08:30)
[2019-11-17] MEDS: POLYETHYLENE GLYCOL 3350 17 GM PACKET. PO PRN (08:30)
[2019-11-17] MEDS: amLODIPine BESYLATE 5 MG TABLET PO SCH (08:31)
[2019-11-17] MEDS: NYSTATIN TOPICAL POWDER 15GM BOTTLE. TP SCH ×2 (08:32→21:12)
[2019-11-17] MEDS: INSULIN LISPRO 300 UNITS/3 ML VIAL. SQ SCH ×6 (08:39→17:43)
[2019-11-17] MEDS ORDERED: IV DEXTROSE 5% 250 ML BAG. IV PRN (09:00)
[2019-11-17] MEDS ORDERED: DEXTROSE 50% 25 GM / 50ML DISP.SYRIN. IV PRN (09:00)
[2019-11-17] MEDS: ALPRAZolam 0.25 MG TABLET PO PRN ×2 (09:43→21:05)
[2019-11-17] MEDS: FLUTICASONE 50MCG/NASAL SPRAY 16GM BOTTLE. NS SCH (09:43)
[2019-11-17] MEDS: INSULIN GLARGINE SYRINGE. SQ SCH ×2 (09:48→21:25)
--- NOTE | 2019-11-17 10:22 | PDOC ---
Infectious Disease Note Subjective Subjective No BM few days, took some Doyle-a-Lax this morning Mild abdominal cramps Purewick in place for incontinence Not very hungry Denies N/V/D/F/C/SOA ROS ROS per HPI Vital Sign Vital Signs Vital Signs Date Time Temp Pulse Resp B/P (MAP) Pulse Ox O2 Delivery O2 Flow Rate FiO2 11/17/19 09:48 Room Air 11/17/19 08:31 68 96/52 11/17/19 08:30 96.0 11/17/19 07:29 98.4 16 96 98.4 Physical Exam PHYSICAL EXAM GENERAL: Propped up in bed, alert, in NAD HEENT: Oral mucosa moist. No oropharyngeal lesion. Scalp incision well approximated, no drainage, no surrounding redness NECK: Supple. LUNGS: Clear bilaterally HEART: S1, S2. No gallops or murmurs. ABDOMEN: Obese, soft, nontender, bowel sounds active. Ecchymosis present EXTREMITIES: Right lower extremity edema. No cyanosis. SKIN: Warm and dry. No rash RIJ clean Labs Lab Laboratory Tests Test 11/16/19 11:12 11/16/19 16:45 11/16/19 20:48 11/17/19 05:10 Glucose (Fingerstick) 315 mg/dL (70-99) 223 mg/dL (70-99) 236 mg/dL (70-99) White Blood Count 18.5 x10^3/uL (4.0-11.0) Red Blood Count 2.87 x10^6/uL (3.50-5.40) Hemoglobin 8.5 g/dL (12.0-15.5) Hematocrit 26.7 % (36.0-47.0) Mean Corpuscular Volume 93 fL (79-100) Mean Corpuscular Hemoglobin 30 pg (25-35) Mean Corpuscular Hemoglobin Concent 32 g/dL (31-37) Red Cell Distribution Width 18.8 % (11.5-14.5) Platelet Count 348 x10^3/uL (140-400) Neutrophils (%) (Auto) 93 % (31-73) Lymphocytes (%) (Auto) 5 % (24-48) Monocytes (%) (Auto) 2 % (0-9) Eosinophils (%) (Auto) 0 % (0-3) Basophils (%) (Auto) 0 % (0-3) Neutrophils # (Auto) 17.2 x10^3/uL (1.8-7.7) Lymphocytes # (Auto) 0.9 x10^3/uL (1.0-4.8) Monocytes # (Auto) 0.4 x10^3/uL (0.0-1.1) Eosinophils # (Auto) 0.0 x10^3/uL (0.0-0.7) Basophils # (Auto) 0.0 x10^3/uL (0.0-0.2) Sodium Level 135 mmol/L (136-145) Potassium Level 4.0 mmol/L (3.5-5.1) Chloride Level 101 mmol/L (98-107) Carbon Dioxide Level 31 mmol/L (21-32) Anion Gap 3 (6-14) Blood Urea Nitrogen 27 mg/dL (7-20) Creatinine 0.6 mg/dL (0.6-1.0) Estimated GFR (Cockcroft-Gault) 107.2 Glucose Level 237 mg/dL (70-99) Calcium Level 8.4 mg/dL (8.5-10.1) Micro 11/10. URINE CULTURE RES 1 Final Escherichia coli Greater than 100,000 colony forming units per mL Multi-Drug Resistant Organism Susceptibility profile is consistent with a probable ESBL. MICS are expressed in micrograms per mL Antibiotic RSLT#1 Amikacin S<=2 Amoxicillin/Clavulanic Acid R>=32 Ampicillin R>=32 Ampicillin/Sulbactam R>=32 Cefazolin R>=64 Cefepime R>=64 Cefotaxime R>=64 Ceftazidime S =4 Ceftriaxone R>=64 Cefuroxime R>=64 Ciprofloxacin R>=4 Gentamicin S<=1 Imipenem S<=1 Levofloxacin R>=8 Meropenem S<=0.25 Nitrofurantoin S<=16 Piperacillin/Tazobactam I =64 Tetracycline S<=1 Tigecycline S<=0.5 Tobramycin S<=1 Trimethoprim/Sulfa S<=20 11/01/19 Blood Culture - Final, Complete NO GROWTH AFTER 5 DAYS Objective Assessment ESBL positive Escherichia coli urinary tract infection, 11/10. BC neg Left frontoparietal lobe tumor, s/p craniotomy/debulking 11/12/2019, pathology pending Chronic Headache. Cognitive impairment. Staring spells. On Keppra. Chronic myelogenous leukemia diagnosed 11/05, on dasatinib post-op, Dr. Yousif following Abdominal hemorrhage attributed to anticoagulation, now stable. Diabetes mellitus 2. History of pulmonary embolism. Generalized debility. Chronic back pain and sciatica, right leg. Plan Plan of Care Fosfomycin q48hrs (1st dose was 11/16) On steriods and Keppra f/u path report Contact isolation D/w nursing Some urinary retention requiring straight cath Celine in head - clean Dose Fosfomycin 11/18 Attending Co-Sign Attending Co-Sign The patient was seen and interviewed as well as examined at the bedside. The chart was reviewed. The case was discussed. Agree with the plan of care. KRISHNA GRIFFIN APRN Nov 17, 2019 10:22 CHI NOBLE MD Nov 17, 2019 17:32
[2019-11-17 11:00] VITALS: BP 106/56
--- NOTE | 2019-11-17 11:02 | PDOC ---
PROGRESS NOTES Chief Complaint Chief Complaint Postop day 5 craniotomy with meningioma resection (11/12) Chronic Myelogenous Leukemia - s/p bone marrow biopsy 11/05 Abdominal pain Leukocytosis on decadron - has gotten 44 iV doses Acute encephalopathy -POA, resolved Headaches DM2 uncontrolled on decadron IV Chronic Back Pain and Sciatica Rt Leg Acute blood loss anemia Brain Mass Hx PE Hypotension resolved Epistaxis resolved GEnw eakness, - REhab on dc History of Present Illness History of Present Illness transferred out of ICU 11.14 PAssed swallow (reg diet thin liq) ABle to move RT leg! 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 ESBL MDR UTI on urine cx RESISTANT TO ROCEPHIN HAs been getting rocephin for a while now ID consuklted 11.16 - now on PO abx x 2 doses q48 hrs apart bateman out 11.16 - voding freely so far PLAN; AB PO per ID, next dose tmr fro MDR ESBL UTI Rehab Tueadders can protocol Shift to PO decadron, same dose and freq - should help the BS Keep current insulin regimen for now - dw RN and pt SLated/targeted dc tuesday to rehab Vitals Vitals Vital Signs Date Time Temp Pulse Resp B/P (MAP) Pulse Ox O2 Delivery O2 Flow Rate FiO2 11/17/19 09:48 Room Air 11/17/19 08:31 68 96/52 11/17/19 08:30 96.0 11/17/19 07:29 98.4 16 96 98.4 Physical Exam Physical Exam GENERAL: Propped up in bed, alert, in NAD HEENT: Oral mucosa moist. No oropharyngeal lesion. Scalp incision well approximated, no drainage, no surrounding redness NECK: Supple. LUNGS: Clear bilaterally HEART: S1, S2. No gallops or murmurs. ABDOMEN: Obese, soft, nontender, bowel sounds active. Ecchymosis present EXTREMITIES: Right lower extremity edema. No cyanosis. SKIN: Warm and dry. No rash RIJ clean General: Cooperative, mild distress, Other (extremely weak and depressed) Heart: Regular rate, Normal S1, Normal S2 Lungs: Wheezing Abdomen: Soft, Other (eechymosis improving) Extremities: No clubbing, No cyanosis, No edema, Normal pulses, No tenderness/swelling Skin: No rashes, No breakdown, Other (Ecchymosis on right abdomen) Labs LABS Laboratory Tests Test 11/16/19 11:12 11/16/19 16:45 11/16/19 20:48 11/17/19 05:10 Glucose (Fingerstick) 315 mg/dL (70-99) 223 mg/dL (70-99) 236 mg/dL (70-99) White Blood Count 18.5 x10^3/uL (4.0-11.0) Red Blood Count 2.87 x10^6/uL (3.50-5.40) Hemoglobin 8.5 g/dL (12.0-15.5) Hematocrit 26.7 % (36.0-47.0) Mean Corpuscular Volume 93 fL (79-100) Mean Corpuscular Hemoglobin 30 pg (25-35) Mean Corpuscular Hemoglobin Concent 32 g/dL (31-37) Red Cell Distribution Width 18.8 % (11.5-14.5) Platelet Count 348 x10^3/uL (140-400) Neutrophils (%) (Auto) 93 % (31-73) Lymphocytes (%) (Auto) 5 % (24-48) Monocytes (%) (Auto) 2 % (0-9) Eosinophils (%) (Auto) 0 % (0-3) Basophils (%) (Auto) 0 % (0-3) Neutrophils # (Auto) 17.2 x10^3/uL (1.8-7.7) Lymphocytes # (Auto) 0.9 x10^3/uL (1.0-4.8) Monocytes # (Auto) 0.4 x10^3/uL (0.0-1.1) Eosinophils # (Auto) 0.0 x10^3/uL (0.0-0.7) Basophils # (Auto) 0.0 x10^3/uL (0.0-0.2) Sodium Level 135 mmol/L (136-145) Potassium Level 4.0 mmol/L (3.5-5.1) Chloride Level 101 mmol/L (98-107) Carbon Dioxide Level 31 mmol/L (21-32) Anion Gap 3 (6-14) Blood Urea Nitrogen 27 mg/dL (7-20) Creatinine 0.6 mg/dL (0.6-1.0) Estimated GFR (Cockcroft-Gault) 107.2 Glucose Level 237 mg/dL (70-99) Calcium Level 8.4 mg/dL (8.5-10.1) Test 11/17/19 07:21 11/17/19 10:20 Glucose (Fingerstick) 216 mg/dL (70-99) 315 mg/dL (70-99) Review of Systems Review of Systems headaches, weak, stable, dec sensation to void at times, all else neg, Assessment and Plan Assessmemt and Plan Problems Medical Problems: (1) Abdominal hemorrhage Status: Acute (2) Generalized weakness Status: Acute (3) Lactic acidosis Status: Acute (4) Leukocytosis Status: Acute Comment Review of Relevant I have reviewed the following items mustapha (where applicable) has been applied. Labs Laboratory Tests Test 11/15/19 11:46 11/15/19 16:55 11/15/19 20:00 11/16/19 07:40 Glucose (Fingerstick) 391 mg/dL (70-99) 307 mg/dL (70-99) 326 mg/dL (70-99) 341 mg/dL (70-99) Test 11/16/19 09:45 11/16/19 11:12 11/16/19 16:45 11/16/19 20:48 Hemoglobin A1c 7.5 % (4.8-5.6) Glucose (Fingerstick) 315 mg/dL (70-99) 223 mg/dL (70-99) 236 mg/dL (70-99) Test 11/17/19 05:10 11/17/19 07:21 11/17/19 10:20 White Blood Count 18.5 x10^3/uL (4.0-11.0) Red Blood Count 2.87 x10^6/uL (3.50-5.40) Hemoglobin 8.5 g/dL (12.0-15.5) Hematocrit 26.7 % (36.0-47.0) Mean Corpuscular Volume 93 fL (79-100) Mean Corpuscular Hemoglobin 30 pg (25-35) Mean Corpuscular Hemoglobin Concent 32 g/dL (31-37) Red Cell Distribution Width 18.8 % (11.5-14.5) Platelet Count 348 x10^3/uL (140-400) Neutrophils (%) (Auto) 93 % (31-73) Lymphocytes (%) (Auto) 5 % (24-48) Monocytes (%) (Auto) 2 % (0-9) Eosinophils (%) (Auto) 0 % (0-3) Basophils (%) (Auto) 0 % (0-3) Neutrophils # (Auto) 17.2 x10^3/uL (1.8-7.7) Lymphocytes # (Auto) 0.9 x10^3/uL (1.0-4.8) Monocytes # (Auto) 0.4 x10^3/uL (0.0-1.1) Eosinophils # (Auto) 0.0 x10^3/uL (0.0-0.7) Basophils # (Auto) 0.0 x10^3/uL (0.0-0.2) Sodium Level 135 mmol/L (136-145) Potassium Level 4.0 mmol/L (3.5-5.1) Chloride Level 101 mmol/L (98-107) Carbon Dioxide Level 31 mmol/L (21-32) Anion Gap 3 (6-14) Blood Urea Nitrogen 27 mg/dL (7-20) Creatinine 0.6 mg/dL (0.6-1.0) Estimated GFR (Cockcroft-Gault) 107.2 Glucose Level 237 mg/dL (70-99) Calcium Level 8.4 mg/dL (8.5-10.1) Glucose (Fingerstick) 216 mg/dL (70-99) 315 mg/dL (70-99) Laboratory Tests Test 11/16/19 11:12 11/16/19 16:45 11/16/19 20:48 11/17/19 05:10 Glucose (Fingerstick) 315 mg/dL (70-99) 223 mg/dL (70-99) 236 mg/dL (70-99) White Blood Count 18.5 x10^3/uL (4.0-11.0) Red Blood Count 2.87 x10^6/uL (3.50-5.40) Hemoglobin 8.5 g/dL (12.0-15.5) Hematocrit 26.7 % (36.0-47.0) Mean Corpuscular Volume 93 fL (79-100) Mean Corpuscular Hemoglobin 30 pg (25-35) Mean Corpuscular Hemoglobin Concent 32 g/dL (31-37) Red Cell Distribution Width 18.8 % (11.5-14.5) Platelet Count 348 x10^3/uL (140-400) Neutrophils (%) (Auto) 93 % (31-73) Lymphocytes (%) (Auto) 5 % (24-48) Monocytes (%) (Auto) 2 % (0-9) Eosinophils (%) (Auto) 0 % (0-3) Basophils (%) (Auto) 0 % (0-3) Neutrophils # (Auto) 17.2 x10^3/uL (1.8-7.7) Lymphocytes # (Auto) 0.9 x10^3/uL (1.0-4.8) Monocytes # (Auto) 0.4 x10^3/uL (0.0-1.1) Eosinophils # (Auto) 0.0 x10^3/uL (0.0-0.7) Basophils # (Auto) 0.0 x10^3/uL (0.0-0.2) Sodium Level 135 mmol/L (136-145) Potassium Level 4.0 mmol/L (3.5-5.1) Chloride Level 101 mmol/L (98-107) Carbon Dioxide Level 31 mmol/L (21-32) Anion Gap 3 (6-14) Blood Urea Nitrogen 27 mg/dL (7-20) Creatinine 0.6 mg/dL (0.6-1.0) Estimated GFR (Cockcroft-Gault) 107.2 Glucose Level 237 mg/dL (70-99) Calcium Level 8.4 mg/dL (8.5-10.1) Test 11/17/19 07:21 11/17/19 10:20 Glucose (Fingerstick) 216 mg/dL (70-99) 315 mg/dL (70-99) Microbiology 11/10/19 Urine Culture - Final, Complete 11/10/19 Urine Culture Result 1 (СВЕТЛАНА) - Final, Complete 11/10/19 Antimicrobic Susceptibility - Final, Complete 11/01/19 Blood Culture - Final, Complete NO GROWTH AFTER 5 DAYS Medications Current Medications Sodium Chloride 500 ml @ 500 mls/hr 1X ONCE IV Last administered on 11/01/19at 13:00; Start 11/01/19 at 13:00; Stop 11/01/19 at 13:59; Status DC Ondansetron HCl (Zofran) 4 mg 1X ONCE IV Last administered on 11/01/19at 13:26; Start 11/01/19 at 13:00; Stop 11/01/19 at 13:13; Status DC Hydromorphone HCl (Dilaudid) 0.5 mg 1X STAT IVP Last administered on 11/01/19at 13:26; Start 11/01/19 at 12:59; Stop 11/01/19 at 13:13; Status DC Iohexol (Omnipaque 300 Mg/ml) 75 ml 1X ONCE IV Last administered on 11/01/19at 14:08; Start 11/01/19 at 13:45; Stop 11/01/19 at 13:46; Status DC Info (CONTRAST GIVEN -- Rx MONITORING) 1 each PRN DAILY PRN MC SEE COMMENTS; Start 11/01/19 at 14:00; Stop 11/03/19 at 13:59; Status DC Hydromorphone HCl (Dilaudid) 0.5 mg 1X STAT IVP Last administered on 11/01/19at 16:53; Start 11/01/19 at 16:21; Stop 11/01/19 at 16:23; Status DC Sodium Chloride 1,000 ml @ 1,000 mls/hr 1X ONCE IV Last administered on 11/01/19at 16:30; Start 11/01/19 at 16:30; Stop 11/01/19 at 17:29; Status DC Sodium Chloride 500 ml @ 500 mls/hr 1X ONCE IV Last administered on 11/01/19at 16:30; Start 11/01/19 at 16:30; Stop 11/01/19 at 17:29; Status DC Albuterol Sulfate (Ventolin Neb Soln) 2.5 mg PRN Q6HRS PRN INH SHORTNESS OF BREATH; Start 11/01/19 at 16:30; Status Cancel Alprazolam (Xanax) 0.25 mg PRN TID PRN PO anxiety; Start 11/01/19 at 16:30; Stop 11/01/19 at 17:11; Status DC Amlodipine Besylate (Norvasc) 5 mg DAILY PO Last administered on 11/16/19 08:47; Start 11/02/19 at 09:00 Cyclosporine (Restasis) 1 drop BID OU Last administered on 11/17/19 08:30; Start 11/01/19 at 21:00 Fluticasone Propionate (Flonase) 2 spray DAILY NS Last administered on 11/17 09:43; Start 11/02/19 at 09:00 Lactobacillus Rhamnosus (Culturelle) 1 cap BID PO Last administered on 11/09/19 08:28; Start 11/01/19 at 21:00; Stop 11/09/19 at 16:57; Status DC Lidocaine (Lidoderm) 1 patch DAILY TP ; Start 11/02/19 at 09:00; Stop 11/01/19 at 20:34; Status DC Metoprolol Succinate (Toprol Xl) 100 mg HS PO Last administered on 11/16/19 21:25; Start 11/01/19 at 21:00 Nystatin (Nystop) 1 raza BID TP Last administered on 11/17/19 08:32; Start 11/01/19 at 21:00 Pantoprazole Sodium (Protonix) 40 mg DAILYAC PO Last administered on 11/09/19 08:28; Start 11/02/19 at 07:30; Stop 11/09/19 at 16:54; Status DC Senna/Docusate Sodium (Senna Plus) 1 tab BID PO Last administered on 11/17/19 08:30; Start 11/01/19 at 21:00 Sucralfate (Carafate) 1 gm TIDAC PO Last administered on 11/17/19 06:18; Start 11/01/19 at 17:30 Tramadol HCl (Ultram) 50 mg PRN Q8HRS PRN PO PAIN; Start 11/01/19 at 16:30; Stop 11/01/19 at 19:43; Status DC Insulin Glargine (Lantus Syringe) 30 unit QHS SQ Last administered on 11/06/19at 21:16; Start 11/01/19 at 21:00; Stop 11/07/19 at 15:56; Status DC Ondansetron HCl (Zofran Odt) 8 mg PRN Q8HRS PRN PO NAUSEA/VOMITING Last administered on 11/16/19 08:47; Start 11/01/19 at 17:15 Polyethylene Glycol (miraLAX PACKET) 17 gm PRN DAILY PRN PO CONSTIPATION, 1ST CHOICE Last administered on 11/17/19 08:30; Start 11/01/19 at 17:11 Atorvastatin Calcium (Lipitor) 80 mg QHS PO Last administered on 11/16/19 21:24; Start 11/01/19 at 21:00 Insulin Human Lispro (HumaLOG) 0-9 UNITS TIDAC SQ Last administered on 11/07/19 12:20; Start 11/01/19 at 16:30; Stop 11/07/19 at 15:56; Status DC Dextrose (Dextrose 50%-Water Syringe) 12.5 gm PRN Q15MIN PRN IV SEE COMMENTS; Start 11/01/19 at 16:30; Stop 11/12/19 at 15:36; Status DC Ondansetron HCl (Zofran) 4 mg PRN Q8HRS PRN IV NAUSEA/VOMITING; Start 11/01/19 at 16:30; Stop 11/02/19 at 16:29; Status DC Alprazolam (Xanax) 0.25 mg PRN TID PRN PO anxiety Last administered on 11/17/19 09:43; Start 11/01/19 at 17:11 Miscellaneous (Lidoderm Patch Removal) 1 ea QHS MC ; Start 11/01/19 at 21:00; Stop 11/01/19 at 20:34; Status DC Ceftriaxone Sodium (Rocephin) 1 gm QHS IVP Last administered on 11/15/19at 21:26; Start 11/01/19 at 18:45; Stop 11/16/19 at 08:52; Status DC Tramadol HCl (Ultram) 50 mg PRN Q8HRS PRN PO MILD PAIN 1-3 Last administered on 11/15/19 17:56; Start 11/01/19 at 19:45 Hydromorphone HCl (Dilaudid) 1 mg PRN Q4HRS PRN IV SEVERE PAIN Last administered on 12/28/19at 06:20; Start 11/01/19 at 20:15 Lidocaine (Lidoderm) 1 patch QHS TP Last administered on 11/16/19at 21:26; Start 11/01/19 at 21:00 Miscellaneous (Lidoderm Patch Removal) 1 ea DAILY MC Last administered on 11/17/19 08:30; Start 11/02/19 at 09:00 Albumin Human 500 ml @ 125 mls/hr 1X ONCE IV ; Start 11/02/19 at 02:00; Stop 11/02/19 at 05:59; Status Cancel Acetaminophen (Tylenol) 650 mg 1X PRN PRN PO PRE-TRANSFUSION; Start 11/02/19 at 06:45; Stop 11/03/19 at 14:16; Status DC Diphenhydramine HCl (Benadryl Oral Elixir) 12.5 mg 1X PRN PRN PO PRE- TRANSFUSION; Start 11/02/19 at 06:45; Stop 11/03/19 at 14:16; Status DC Diphenhydramine HCl (Benadryl) 25 mg PRN 1X PRN PO PRE-TRANSFUSION; Start 11/02/19 at 06:45; Stop 11/03/19 at 14:16; Status DC Lactulose (LACTULOSE 300ML for RECTAL) 200 gm Q6HRS MO Last administered on 11/02/19at 18:00; Start 11/02/19 at 18:00; Stop 11/04/19 at 14:44; Status DC Sodium Chloride 1,000 ml @ 100 mls/hr Q10H IV Last administered on 11/13/19at 15:30; Start 11/02/19 at 12:00; Stop 11/14/19 at 11:28; Status DC Lactulose (Lactulose) 20 gm PRN DAILY PRN PO CONSTIPATION, 2ND CHOICE; Start 11/04/19 at 14:45 Oxycodone HCl (Roxicodone) 5 mg PRN Q6HRS PRN PO MODERATE TO SEVERE PAIN Last administered on 11/17/19at 08:30; Start 11/04/19 at 14:45 Lidocaine HCl (Buffered Lidocaine 1%) 3 ml STK-MED ONCE .ROUTE ; Start 11/05/19 at 08:13; Stop 11/05/19 at 08:13; Status DC Lidocaine HCl (Buffered Lidocaine 1%) 3 ml STK-MED ONCE .ROUTE ; Start 11/05/19 at 08:14; Stop 11/05/19 at 08:14; Status DC Midazolam HCl (Versed) 2 mg STK-MED ONCE .ROUTE ; Start 11/05/19 at 08:40; Stop 11/05/19 at 08:40; Status DC Fentanyl Citrate (Fentanyl 2ml Vial) 100 mcg STK-MED ONCE .ROUTE ; Start 11/05/19 at 08:40; Stop 11/05/19 at 08:41; Status DC Lidocaine HCl (Buffered Lidocaine 1%) 3 ml 1X ONCE IJ Last administered on 11/05/19at 08:45; Start 11/05/19 at 08:45; Stop 11/05/19 at 08:50; Status DC Midazolam HCl (Versed) 2 mg 1X ONCE IV Last administered on 11/05/19at 08:45; Start 11/05/19 at 08:45; Stop 11/05/19 at 08:50; Status DC Fentanyl Citrate (Fentanyl 2ml Vial) 100 mcg 1X ONCE IV Last administered on 11/05/19at 08:45; Start 11/05/19 at 08:45; Stop 11/05/19 at 08:50; Status DC Dexamethasone Sodium Phosphate (Decadron) 4 mg Q6HRS IVP Last administered on 11/17/19at 06:03; Start 11/06/19 at 09:00; Stop 11/17/19 at 08:53; Status DC Insulin Glargine (Lantus Syringe) 40 unit QHS SQ Last administered on 11/15/19at 21:00; Start 11/07/19 at 21:00; Stop 11/16/19 at 08:53; Status DC Insulin Human Lispro (HumaLOG) 10 units TIDAC SQ Last administered on 11/14/19at 17:31; Start 11/07/19 at 16:30; Stop 11/15/19 at 08:16; Status DC Insulin Human Lispro (HumaLOG) 0-9 UNITS TIDWMEALS SQ Last administered on 11/11/19at 17:13; Start 11/07/19 at 17:00; Stop 11/12/19 at 15:37; Status DC Insulin Human Lispro (HumaLOG) 19 units 1X ONCE SQ Last administered on 11/09/19at 12:41; Start 11/09/19 at 12:15; Stop 11/09/19 at 12:16; Status DC Insulin Human Lispro (HumaLOG) 5 units 1X ONCE SQ Last administered on 11/09/19at 13:52; Start 11/09/19 at 13:30; Stop 11/09/19 at 13:31; Status DC Non-Formulary Medication 1 ea DAILY PO ; Start 11/09/19 at 16:30; Status Cancel Ondansetron HCl (Zofran) 4 mg PRN Q6HRS PRN IV NAUSEA/VOMITING; Start 11/12/19 at 07:00; Stop 11/12/19 at 19:56; Status DC Fentanyl Citrate (Fentanyl 2ml Vial) 25 mcg PRN Q5MIN PRN IV MILD PAIN 1-3; Start 11/12/19 at 07:00; Stop 11/12/19 at 19:56; Status DC Fentanyl Citrate (Fentanyl 2ml Vial) 50 mcg PRN Q5MIN PRN IV MODERATE TO SEVERE PAIN; Start 11/12/19 at 07:00; Stop 11/12/19 at 19:56; Status DC Morphine Sulfate (Morphine Sulfate) 1 mg PRN Q10MIN PRN IV SEVERE PAIN 7-10; Start 11/12/19 at 07:00; Stop 11/09/19 at 17:30; Status DC Ringer's Solution 1,000 ml @ 30 mls/hr Q24H IV Last administered on 11/12/19at 10:00; Start 11/12/19 at 07:00; Stop 11/12/19 at 18:59; Status DC Lidocaine HCl (Xylocaine-Mpf 1% 2ml Vial) 2 ml PRN 1X PRN ID PRIOR TO IV START; Start 11/12/19 at 07:00; Stop 11/12/19 at 19:56; Status DC Hydromorphone HCl (Dilaudid) 0.5 mg PRN Q10MIN PRN IV SEV PAIN, Second choice; Start 11/12/19 at 07:00; Stop 11/12/19 at 19:56; Status DC Prochlorperazine Edisylate (Compazine) 5 mg PACU PRN PRN IV NAUSEA, MRX1; Start 11/12/19 at 07:00; Stop 11/12/19 at 19:56; Status DC Pantoprazole Sodium (Protonix) 40 mg DAILYAC PO Last administered on 11/14/19at 08:19; Start 11/09/19 at 18:30; Stop 11/15/19 at 09:25; Status DC Levetiracetam (Keppra) 500 mg BID PO Last administered on 11/17/19at 08:29; Start 11/09/19 at 21:00 Non-Formulary Medication 1 ea DAILY PO Last administered on 11/17/19at 09:44; Start 11/12/19 at 09:00 Insulin Human Lispro (HumaLOG) 8 units 1X ONCE SQ Last administered on 11/10/19at 12:32; Start 11/10/19 at 12:15; Stop 11/10/19 at 12:16; Status DC Propofol 20 ml @ As Directed STK-MED ONCE IV ; Start 11/12/19 at 07:48; Stop 11/12/19 at 07:48; Status DC Dexamethasone Sodium Phosphate (Decadron) 20 mg STK-MED ONCE .ROUTE ; Start 11/12/19 at 07:48; Stop 11/12/19 at 07:48; Status DC Lidocaine HCl (Lidocaine Pf 2% Vial) 5 ml STK-MED ONCE .ROUTE ; Start 11/12/19 at 07:48; Stop 11/12/19 at 07:48; Status DC Ondansetron HCl (Zofran) 4 mg STK-MED ONCE .ROUTE ; Start 11/12/19 at 07:48; Stop 11/12/19 at 07:48; Status DC Phenylephrine HCl (Tony-Synephrine Inj) 10 mg STK-MED ONCE .ROUTE ; Start 11/12/19 at 07:48; Stop 11/12/19 at 07:48; Status DC Propofol 50 ml @ As Directed STK-MED ONCE IV ; Start 11/12/19 at 07:48; Stop 11/12/19 at 07:48; Status DC Rocuronium [place] (Zemuron) 50 mg STK-MED ONCE .ROUTE ; Start 11/12/19 at 07:48; Stop 11/12/19 at 07:48; Status DC Remifentanil HCl (Ultiva) 2 mg STK-MED ONCE IV ; Start 11/12/19 at 07:48; Stop 11/12/19 at 07:49; Status DC Sodium Chloride (SODIUM CHLORIDE 20ml) 20 ml STK-MED ONCE IJ ; Start 11/12/19 at 07:49; Stop 11/12/19 at 07:49; Status DC Multi-Ingred Cream/Lotion/Oil/ Oint (Artificial Tears Eye Ointment) 7 raza STK- MED ONCE .ROUTE ; Start 11/12/19 at 07:49; Stop 11/12/19 at 07:49; Status DC Bacitracin 01815 unit/Sodium Chloride 1,000 ml @ 1,000 mls/hr 1X ONCE IRR Last administered on 11/12/19 11:26; Start 11/12/19 at 07:57; Stop 11/12/19 at 08:56; Status DC Sodium Chloride (SODIUM CHLORIDE 20ml) 20 ml STK-MED ONCE IJ ; Start 11/12/19 at 07:57; Stop 11/12/19 at 07:57; Status DC Gelatin (Gelfoam Size 100) 1 each STK-MED ONCE .ROUTE Last administered on 11/12/19 11:26; Start 11/12/19 at 07:59; Stop 11/12/19 at 07:59; Status DC Cellulose (Surgicel Hemostat 4x8) 1 each STK-MED ONCE .ROUTE Last administered on 11/12/19at 12:01; Start 11/12/19 at 07:59; Stop 11/12/19 at 08:00; Status DC Lidocaine/ Epinephrine (LIDOCAINE 1%-EPI 1:100,000 Multi-Dose) 20 ml STK-MED ONCE .ROUTE Last administered on 11/12/19 11:26; Start 11/12/19 at 07:59; Stop 11/12/19 at 08:00; Status DC Thrombin 20,000 unit STK-MED ONCE TP Last administered on 11/12/19at 11:26; Start 11/12/19 at 08:00; Stop 11/12/19 at 08:00; Status DC Bacitracin (Bacitracin Zinc Oint Pkt) 1 pkt STK-MED ONCE TP ; Start 11/12/19 at 08:00; Stop 11/12/19 at 08:00; Status DC Propofol 100 ml @ As Directed STK-MED ONCE IV ; Start 11/12/19 at 08:02; Stop 11/12/19 at 08:02; Status DC Insulin Human Lispro (HumaLOG) 11 units 1X ONCE SQ Last administered on 11/12/19at 08:15; Start 11/12/19 at 08:15; Stop 11/12/19 at 08:16; Status DC Gadoterate Meglumine (Dotarem) 24.8 ml 1X ONCE IVP Last administered on 11/12/19at 08:15; Start 11/12/19 at 08:15; Stop 11/12/19 at 08:16; Status DC Insulin Human Regular 100 unit/ Sodium Chloride 101 ml @ 12.484 mls/ hr ONCE ONCE IV ; Start 11/12/19 at 08:15; Stop 11/12/19 at 16:20; Status DC Desflurane (Suprane) 90 ml STK-MED ONCE IH ; Start 11/12/19 at 08:11; Stop 11/12/19 at 08:11; Status DC Fentanyl Citrate (Fentanyl 2ml Vial) 100 mcg STK-MED ONCE .ROUTE ; Start 11/12/19 at 08:20; Stop 11/12/19 at 08:20; Status DC Midazolam HCl (Versed) 2 mg STK-MED ONCE .ROUTE ; Start 11/12/19 at 08:20; Stop 11/12/19 at 08:20; Status DC Rocuronium [place] (Zemuron) 50 mg STK-MED ONCE .ROUTE ; Start 11/12/19 at 09:11; Stop 11/12/19 at 09:12; Status DC Mannitol (Mannitol) 12.5 g STK-MED ONCE .ROUTE ; Start 11/12/19 at 09:22; Stop 11/12/19 at 09:23; Status DC Propofol 100 ml @ As Directed STK-MED ONCE IV ; Start 11/12/19 at 09:22; Stop 11/12/19 at 09:23; Status DC Lidocaine HCl (Xylocaine-Mpf 1% 2ml Vial) 2 ml STK-MED ONCE .ROUTE ; Start 11/12/19 at 09:24; Stop 11/12/19 at 09:24; Status DC Cefazolin Sodium 3 gm/Dextrose 100 ml @ 200 mls/hr 1X PREOP ONCE IV Last administered on 11/12/19at 10:53; Start 11/12/19 at 10:30; Stop 11/12/19 at 10:59; Status DC Gelatin (Gelfoam Size 12-7mm) 1 each STK-MED ONCE .ROUTE Last administered on 11/12/19 12:03; Start 11/12/19 at 11:59; Stop 11/12/19 at 12:01; Status DC Thrombin 20,000 unit STK-MED ONCE TP Last administered on 11/12/19 12:04; Start 11/12/19 at 12:00; Stop 11/12/19 at 12:01; Status DC Gelatin (Gelfoam Size 100) 1 each STK-MED ONCE .ROUTE Last administered on 11/12/19 12:25; Start 11/12/19 at 12:26; Stop 11/12/19 at 12:26; Status DC Gelatin (Gelfoam Size 12-7mm) 1 each STK-MED ONCE .ROUTE Last administered on 11/12/19 13:35; Start 11/12/19 at 13:32; Stop 11/12/19 at 13:33; Status DC Thrombin 20,000 unit STK-MED ONCE TP Last administered on 11/12/19 13:35; Start 11/12/19 at 13:32; Stop 11/12/19 at 13:33; Status DC Gelatin (Gelfoam Size 12-7mm) 1 each STK-MED ONCE .ROUTE Last administered on 11/12/19 13:55; Start 11/12/19 at 13:55; Stop 11/12/19 at 13:55; Status DC Gelatin (Gelfoam Size 12-7mm) 1 each STK-MED ONCE .ROUTE Last administered on 11/12/19at 13:59; Start 11/12/19 at 13:59; Stop 11/12/19 at 13:59; Status DC Labetalol HCl (Normodyne Iv Push) 5 mg PRN Q15MIN PRN IVP HYPERTENSION; Start 11/12/19 at 15:15 Nicardipine HCl 50 mg/Sodium Chloride 250 ml @ 25 mls/hr TITRATE PRN IV SBP 90-140; Start 11/12/19 at 15:15; Stop 11/15/19 at 08:16; Status DC Hydralazine HCl (Apresoline Inj) 5 mg PRN Q6HRS PRN IVP TO KEEP SBP<140mmHg; Start 11/12/19 at 15:15 Al Hydroxide/Mg Hydroxide (Mylanta Plus Xs) 30 ml PRN Q3HRS PRN PO HEARTBURN / GAS; Start 11/12/19 at 15:15 Calcium Carbonate/ Glycine (Tums) 500 mg PRN Q3HRS PRN PO INDIGESTION; Start 11/12/19 at 15:15 Diphenhydramine HCl (Benadryl) 25 mg PRN Q6HRS PRN PO ITCHING; Start 11/12/19 at 15:15 Diphenhydramine HCl (Benadryl) 25 mg PRN Q6HRS PRN IV ITCHING; Start 11/12/19 at 15:15 Sodium Chloride (Normal Saline Flush) 3 ml QSHIFT PRN IV AFTER MEDS AND BLOOD DRAWS; Start 11/12/19 at 15:15 Insulin Human Lispro (HumaLOG) 0-5 UNITS TIDWMEALS SQ Last administered on 11/17/19at 08:39; Start 11/12/19 at 17:00; Stop 11/17/19 at 08:54; Status DC Dextrose (Dextrose 50%-Water Syringe) 12.5 gm PRN Q15MIN PRN IV SEE COMMENTS; Start 11/12/19 at 15:15 Dextrose (Iv Dextrose 5%) 250 ml PRN Q15MIN PRN IV SEE COMMENTS; Start 9 at 15:15 Hydromorphone HCl (Dilaudid) 0.2 mg PRN Q1HR PRN IV MODERATE PAIN; Start 11/12/19 at 15:15 Insulin Human Lispro (HumaLOG VIAL for OP,RR ONLY) 0-10 units PRN Q1HR PRN SQ PER PROTOCOL Last administered on 11/12/19at 15:50; Start 11/12/19 at 16:00; Stop 11/12/19 at 19:54; Status DC Insulin Human Lispro (HumaLOG VIAL for OP,RR ONLY) 4 unit 1X ONCE SQ ; Start 11/12/19 at 16:45; Stop 11/12/19 at 16:46; Status DC Ferrous Sulfate (Iron Oral Solution) 300 mg QD PO Last administered on 11/17/19at 08:29; Start 11/13/19 at 10:00 Gadoterate Meglumine (Dotarem) 10 ml 1X ONCE IVP Last administered on 11/13/19at 15:00; Start 11/13/19 at 14:45; Stop 11/13/19 at 14:48; Status DC Gadoterate Meglumine (Dotarem) 15 ml 1X ONCE IVP Last administered on 11/13/19at 15:00; Start 11/13/19 at 14:45; Stop 11/13/19 at 14:48; Status DC Insulin Human Lispro (HumaLOG) 15 units TIDAC SQ Last administered on 11/15/19at 17:08; Start 11/15/19 at 08:15; Stop 11/16/19 at 08:53; Status DC Insulin Glargine (Lantus Syringe) 20 unit DAILY SQ Last administered on 11/15/19at 09:20; Start 11/15/19 at 09:00; Stop 11/16/19 at 08:53; Status DC Enoxaparin Sodium (Lovenox 40mg Syringe) 40 mg Q12H SQ Last administered on 11/15/19at 23:36; Start 11/15/19 at 10:00; Stop 11/16/19 at 07:50; Status DC Enoxaparin Sodium (Lovenox 40mg Syringe) 40 mg DAILY SQ Last administered on 11/17/19at 08:30; Start 11/16/19 at 09:00 Meropenem 1 gm/ Sodium Chloride 100 ml @ 200 mls/hr Q8HRS IV ; Start 11/16/19 at 14:00; Stop 11/16/19 at 12:31; Status DC Insulin Glargine (Lantus Syringe) 40 unit BID SQ Last administered on 11/17/19at 09:48; Start 11/16/19 at 09:00 Insulin Human Lispro (HumaLOG) 20 units TIDAC SQ Last administered on 11/17/19at 08:40; Start 11/16/19 at 11:30 Insulin Glargine (Lantus Syringe) 20 unit 1X ONCE SQ Last administered on 11/16/19at 09:48; Start 11/16/19 at 09:15; Stop 11/16/19 at 09:16; Status DC Fosfomycin Tromethamine (Monurol) 3 gm 1X ONCE PO Last administered on 11/16/19at 12:49; Start 11/16/19 at 12:30; Stop 11/16/19 at 12:33; Status DC Fosfomycin Tromethamine (Monurol) 3 gm 1X ONCE PO ; Start 11/18/19 at 09:00; Stop 11/18/19 at 09:01 Dexamethasone (Decadron) 4 mg QID PO ; Start 11/17/19 at 13:00 Insulin Human Lispro (HumaLOG) 0-9 UNITS TIDWMEALS SQ ; Start 11/17/19 at 12:00 Dextrose (Dextrose 50%-Water Syringe) 12.5 gm PRN Q15MIN PRN IV SEE COMMENTS; Start 11/17/19 at 09:00; Status UNV Dextrose (Iv Dextrose 5%) 250 ml PRN Q15MIN PRN IV SEE COMMENTS; Start 11/17/19 at 09:00 Active Scripts Active Enoxaparin Sodium 120 Mg/0.8 Ml Disp.syrin 120 Mg SQ Q12HR 28 Days Dexamethasone 4 Mg Tablet 4 Mg PO BID 14 Days Culturelle (Lactobacillus Rhamnosus Gg) 1 Each Cap.sprink 1 Cap PO BID 30 Days Amlodipine Besylate 5 Mg Tablet 5 Mg PO DAILY 30 Days Cefdinir 300 Mg Capsule 300 Mg PO BID 10 Days Reported Cymbalta (Duloxetine Hcl) 60 Mg Capsule.dr 1 Cap PO BID Lyrica (Pregabalin) 150 Mg Capsule 1 Cap PO BID Novolog (Insulin Aspart) 100 Unit/1 Ml Cartridge 10-45 Unit SQ QIDACHS Levemir (Insulin Detemir) 100 Unit/1 Ml Vial 30 Unit SQ HS Linzess (Linaclotide) 145 Mcg Capsule 145 Mcg PO PRN PRN Crestor (Rosuvastatin Calcium) 40 Mg Tablet 0.5 Tab PO DAILY Polyethylene Glycol 3350 2,500 Gm Powder 17 Gm PO PRN PRN Xanax (Alprazolam) 1 Mg Tablet 1 Tab PO TID Restasis (Cyclosporine) 1 Each Droperette 1 Drop EACHEYE BID Proair Hfa Inhaler (Albuterol Sulfate) 8.5 Gm Hfa.aer.ad 1 Puff INH PRN Q6HRS PRN Tramadol Hcl 50 Mg Tablet 1 Tab PO PRN Q8HRS PRN Ondansetron Hcl 4 Mg Tablet 2 Tab PO PRN Q8HRS PRN Nystatin 15 Gm Powder 1 Raza TP BID Lidocaine PATCH (Lidocaine) 1 Each Adh..patch 1 Each TP DAILY Fluticasone Propionate Nasal [place] (Fluticasone Propionate) 16 Gm [place].susp 2 [place] NS DAILY Percocet 5-325 Mg Tablet (Oxycodone/Acetaminophen) 1 Each Tablet 1-2 Tab PO Q4-6HRS PRN LAST DOSE AT NEXT DOSE Senna-Docusate Sodium Tablet (Sennosides/Docusate Sodium) 1 Each Tablet 1 Each PO BID LAST DOSE THIS AM NEXT DOSE TONIGHT Robaxin-750 (Methocarbamol) 750 Mg Tablet 1 Tab PO TID LAST DOSE AT 1400 (2PM) MAY HAVE THE NEXT DOSE AT 10 PM Protonix (Pantoprazole Sodium) 40 Mg Tablet.dr 40 Mg PO DAILY LST DOSE THIS AM NEXT DOSE TOMORROW AM Carafate (Sucralfate) 1 Gm Tablet 1 Tab PO TID Meds not given this hospital admission. May resume home medications as approved by Physician. MAY TAKE WHEN AVAILABLE Xarelto (Rivaroxaban) 15 Mg Tablet 15 Mg PO DAILY Meds not given this hospital admission. May resume home medications as approved by Physician. MAY RESUME WHEN AVAILABLE Metoprolol Succinate ( Xl ) (Metoprolol Succinate) 100 Mg Tab.er.24h 100 Mg PO HS LAST DOSE THIS AM NEXT DOSE TOMORROW AM Vitals/I & O Vital Sign - Last 24 Hours 11/16/19 11/16/19 11/16/19 11/16/19 11:00 13:59 14:51 15:00 Temp 98.1 97.9 98.1 97.9 Pulse 75 97 Resp 18 18 B/P (MAP) 102/54 (70) 103/57 (72) Pulse Ox 75 75 75 96 O2 Delivery Room Air Room Air Room Air Room Air 11/16/19 11/16/19 11/16/19 11/16/19 16:05 17:05 18:00 18:30 O2 Delivery Room Air Room Air Room Air Room Air 11/16/19 11/16/19 11/16/19 11/16/19 19:00 19:40 21:25 22:19 Temp 98.6 98.6 Pulse 101 101 Resp 18 B/P (MAP) 103/57 (72) 103/57 Pulse Ox 98 O2 Delivery Room Air Room Air Room Air 11/16/19 11/16/19 11/17/19 11/17/19 23:00 23:24 02:20 02:58 Temp 99.0 99.0 Pulse 84 Resp 18 B/P (MAP) 105/55 (72) Pulse Ox 96 O2 Delivery Room Air Room Air Room Air Room Air 11/17/19 11/17/19 11/17/19 11/17/19 03:00 06:20 07:08 07:10 Temp 98.4 98.4 Pulse 68 Resp 18 B/P (MAP) 99/57 (71) Pulse Ox 94 O2 Delivery Room Air Room Air Room Air Room Air 11/17/19 11/17/19 11/17/19 11/17/19 07:29 08:30 08:31 09:48 Temp 98.4 98.4 Pulse 68 68 Resp 16 B/P (MAP) 96/52 (67) 96/52 Pulse Ox 96 O2 Delivery Room Air Room Air Room Air O2 Flow Rate 96.0 l Intake and Output 11/16/19 11/16/19 11/17/19 15:00 23:00 07:00 Intake Total 600 ml 800 ml Output Total 1200 ml 500 ml Balance -600 ml 300 ml Nutrition Consultation Dietary Evaluation: Recommendations by RD: Dietary education by RD, Increase Calorie Intake, Protein supplementation Comments: REC ADA/cardiac diet ,glucerna tid Expected Outcomes/Goals: PO intake to meet >75% est needs- met at times, goal ongoing Interpretation of weight loss: >5% in 1 month Malnutrition Findings: Food and Nutrition Intake (Sev: <50% est energy req 5days Weight Status: Morbidly Obese RAFAEL CAT MD Nov 17, 2019 11:02
--- NOTE | 2019-11-17 11:33 | NUR ---
Dr. Infante and Dr. Clark notified of bladder scan of [facility]. Verbal orders received from Dr. Infante.
--- NOTE | 2019-11-17 11:40 | PDOC ---
PROGRESS NOTES Subjective Subjective Reports some nausea. No recent BM. Denies acute changes otherwise. Objective Objective Vital Signs Date Time Temp Pulse Resp B/P (MAP) Pulse Ox O2 Delivery O2 Flow Rate FiO2 11/17/19 11:22 Room Air 11/17/19 11:00 98.3 88 16 106/56 (73) 98 98.3 11/17/19 08:30 96.0 Intake and Output 11/17/19 07:00 Intake Total 1400 ml Output Total 1700 ml Balance -300 ml Intake Oral 1400 ml Output Urine Total 1700 ml # Voids 2 Physical Exam Physical Exam AAOx4, speech stable with some slurring, RLE stable, RUE EE noted 2-/5 today, sensation stable LT, incision c/d/i with edd Assessment Assessment Problems Medical Problems: (1) Abdominal hemorrhage Status: Acute (2) Generalized weakness Status: Acute (3) Lactic acidosis Status: Acute (4) Leukocytosis Status: Acute Plan Plan of Care -final path pending but initial report c/w meningioma - possible atypical component - was sent to [place] for confirmation -cont steroid - slow taper when d/c over weeks -aggressive therapy, slated for inpt rehab soon -abx UTI -bowel regimen Comment Review of Relevant I have reviewed the following items mustapha (where applicable) has been applied. Labs Laboratory Tests Test 11/15/19 11:46 11/15/19 16:55 11/15/19 20:00 11/16/19 07:40 Glucose (Fingerstick) 391 mg/dL (70-99) 307 mg/dL (70-99) 326 mg/dL (70-99) 341 mg/dL (70-99) Test 11/16/19 09:45 11/16/19 11:12 11/16/19 16:45 11/16/19 20:48 Hemoglobin A1c 7.5 % (4.8-5.6) Glucose (Fingerstick) 315 mg/dL (70-99) 223 mg/dL (70-99) 236 mg/dL (70-99) Test 11/17/19 05:10 11/17/19 07:21 11/17/19 10:20 White Blood Count 18.5 x10^3/uL (4.0-11.0) Red Blood Count 2.87 x10^6/uL (3.50-5.40) Hemoglobin 8.5 g/dL (12.0-15.5) Hematocrit 26.7 % (36.0-47.0) Mean Corpuscular Volume 93 fL (79-100) Mean Corpuscular Hemoglobin 30 pg (25-35) Mean Corpuscular Hemoglobin Concent 32 g/dL (31-37) Red Cell Distribution Width 18.8 % (11.5-14.5) Platelet Count 348 x10^3/uL (140-400) Neutrophils (%) (Auto) 93 % (31-73) Lymphocytes (%) (Auto) 5 % (24-48) Monocytes (%) (Auto) 2 % (0-9) Eosinophils (%) (Auto) 0 % (0-3) Basophils (%) (Auto) 0 % (0-3) Neutrophils # (Auto) 17.2 x10^3/uL (1.8-7.7) Lymphocytes # (Auto) 0.9 x10^3/uL (1.0-4.8) Monocytes # (Auto) 0.4 x10^3/uL (0.0-1.1) Eosinophils # (Auto) 0.0 x10^3/uL (0.0-0.7) Basophils # (Auto) 0.0 x10^3/uL (0.0-0.2) Sodium Level 135 mmol/L (136-145) Potassium Level 4.0 mmol/L (3.5-5.1) Chloride Level 101 mmol/L (98-107) Carbon Dioxide Level 31 mmol/L (21-32) Anion Gap 3 (6-14) Blood Urea Nitrogen 27 mg/dL (7-20) Creatinine 0.6 mg/dL (0.6-1.0) Estimated GFR (Cockcroft-Gault) 107.2 Glucose Level 237 mg/dL (70-99) Calcium Level 8.4 mg/dL (8.5-10.1) Glucose (Fingerstick) 216 mg/dL (70-99) 315 mg/dL (70-99) Laboratory Tests Test 11/16/19 16:45 11/16/19 20:48 11/17/19 05:10 11/17/19 07:21 Glucose (Fingerstick) 223 mg/dL (70-99) 236 mg/dL (70-99) 216 mg/dL (70-99) White Blood Count 18.5 x10^3/uL (4.0-11.0) Red Blood Count 2.87 x10^6/uL (3.50-5.40) Hemoglobin 8.5 g/dL (12.0-15.5) Hematocrit 26.7 % (36.0-47.0) Mean Corpuscular Volume 93 fL (79-100) Mean Corpuscular Hemoglobin 30 pg (25-35) Mean Corpuscular Hemoglobin Concent 32 g/dL (31-37) Red Cell Distribution Width 18.8 % (11.5-14.5) Platelet Count 348 x10^3/uL (140-400) Neutrophils (%) (Auto) 93 % (31-73) Lymphocytes (%) (Auto) 5 % (24-48) Monocytes (%) (Auto) 2 % (0-9) Eosinophils (%) (Auto) 0 % (0-3) Basophils (%) (Auto) 0 % (0-3) Neutrophils # (Auto) 17.2 x10^3/uL (1.8-7.7) Lymphocytes # (Auto) 0.9 x10^3/uL (1.0-4.8) Monocytes # (Auto) 0.4 x10^3/uL (0.0-1.1) Eosinophils # (Auto) 0.0 x10^3/uL (0.0-0.7) Basophils # (Auto) 0.0 x10^3/uL (0.0-0.2) Sodium Level 135 mmol/L (136-145) Potassium Level 4.0 mmol/L (3.5-5.1) Chloride Level 101 mmol/L (98-107) Carbon Dioxide Level 31 mmol/L (21-32) Anion Gap 3 (6-14) Blood Urea Nitrogen 27 mg/dL (7-20) Creatinine 0.6 mg/dL (0.6-1.0) Estimated GFR (Cockcroft-Gault) 107.2 Glucose Level 237 mg/dL (70-99) Calcium Level 8.4 mg/dL (8.5-10.1) Test 11/17/19 10:20 Glucose (Fingerstick) 315 mg/dL (70-99) Microbiology 11/10/19 Urine Culture - Final, Complete 11/10/19 Urine Culture Result 1 (СВЕТЛАНА) - Final, Complete 11/10/19 Antimicrobic Susceptibility - Final, Complete 11/01/19 Blood Culture - Final, Complete NO GROWTH AFTER 5 DAYS Medications Current Medications Sodium Chloride 500 ml @ 500 mls/hr 1X ONCE IV Last administered on 11/01/19at 13:00; Start 11/01/19 at 13:00; Stop 11/01/19 at 13:59; Status DC Ondansetron HCl (Zofran) 4 mg 1X ONCE IV Last administered on 11/01/19at 13:26; Start 11/01/19 at 13:00; Stop 11/01/19 at 13:13; Status DC Hydromorphone HCl (Dilaudid) 0.5 mg 1X STAT IVP Last administered on 11/01/19at 13:26; Start 11/01/19 at 12:59; Stop 11/01/19 at 13:13; Status DC Iohexol (Omnipaque 300 Mg/ml) 75 ml 1X ONCE IV Last administered on 11/01/19at 14:08; Start 11/01/19 at 13:45; Stop 11/01/19 at 13:46; Status DC Info (CONTRAST GIVEN -- Rx MONITORING) 1 each PRN DAILY PRN MC SEE COMMENTS; Start 11/01/19 at 14:00; Stop 11/03/19 at 13:59; Status DC Hydromorphone HCl (Dilaudid) 0.5 mg 1X STAT IVP Last administered on 11/01/19at 16:53; Start 11/01/19 at 16:21; Stop 11/01/19 at 16:23; Status DC Sodium Chloride 1,000 ml @ 1,000 mls/hr 1X ONCE IV Last administered on 11/01/19at 16:30; Start 11/01/19 at 16:30; Stop 11/01/19 at 17:29; Status DC Sodium Chloride 500 ml @ 500 mls/hr 1X ONCE IV Last administered on 11/01/19at 16:30; Start 11/01/19 at 16:30; Stop 11/01/19 at 17:29; Status DC Albuterol Sulfate (Ventolin Neb Soln) 2.5 mg PRN Q6HRS PRN INH SHORTNESS OF BREATH; Start 11/01/19 at 16:30; Status Cancel Alprazolam (Xanax) 0.25 mg PRN TID PRN PO anxiety; Start 11/01/19 at 16:30; Stop 11/01/19 at 17:11; Status DC Amlodipine Besylate (Norvasc) 5 mg DAILY PO Last administered on 11/16/19 08:47; Start 11/02/19 at 09:00 Cyclosporine (Restasis) 1 drop BID OU Last administered on 11/17/19 08:30; Start 11/01/19 at 21:00 Fluticasone Propionate (Flonase) 2 spray DAILY NS Last administered on 11/17/19 09:43; Start 11/02/19 at 09:00 Lactobacillus Rhamnosus (Culturelle) 1 cap BID PO Last administered on 11/09/19 08:28; Start 11/01/19 at 21:00; Stop 11/09/19 at 16:57; Status DC Lidocaine (Lidoderm) 1 patch DAILY TP ; Start 11/02/19 at 09:00; Stop 11/01/19 at 20:34; Status DC Metoprolol Succinate (Toprol Xl) 100 mg HS PO Last administered on 11/16/19 21:25; Start 11/01/19 at 21:00 Nystatin (Nystop) 1 raza BID TP Last administered on 11/17/19 08:32; Start 11/01/19 at 21:00 Pantoprazole Sodium (Protonix) 40 mg DAILYAC PO Last administered on 11/09/19 08:28; Start 11/02/19 at 07:30; Stop 11/09/19 at 16:54; Status DC Senna/Docusate Sodium (Senna Plus) 1 tab BID PO Last administered on 11/17/19 08:30; Start 11/01/19 at 21:00 Sucralfate (Carafate) 1 gm TIDAC PO Last administered on 11/17/19 11:22; Start 11/01/19 at 17:30 Tramadol HCl (Ultram) 50 mg PRN Q8HRS PRN PO PAIN; Start 11/01/19 at 16:30; Stop 11/01/19 at 19:43; Status DC Insulin Glargine (Lantus Syringe) 30 unit QHS SQ Last administered on 11/06/19 21:16; Start 11/01/19 at 21:00; Stop 11/07/19 at 15:56; Status DC Ondansetron HCl (Zofran Odt) 8 mg PRN Q8HRS PRN PO NAUSEA/VOMITING Last administered on 11/16/19 08:47; Start 11/01/19 at 17:15 Polyethylene Glycol (miraLAX PACKET) 17 gm PRN DAILY PRN PO CONSTIPATION, 1ST CHOICE Last administered on 11/17/19 08:30; Start 11/01/19 at 17:11 Atorvastatin Calcium (Lipitor) 80 mg QHS PO Last administered on 11/16/19 21:24; Start 11/01/19 at 21:00 Insulin Human Lispro (HumaLOG) 0-9 UNITS TIDAC SQ Last administered on 11/07/19 12:20; Start 11/01/19 at 16:30; Stop 11/07/19 at 15:56; Status DC Dextrose (Dextrose 50%-Water Syringe) 12.5 gm PRN Q15MIN PRN IV SEE COMMENTS; Start 11/01/19 at 16:30; Stop 11/12/19 at 15:36; Status DC Ondansetron HCl (Zofran) 4 mg PRN Q8HRS PRN IV NAUSEA/VOMITING; Start 11/01/19 at 16:30; Stop 11/02/19 at 16:29; Status DC Alprazolam (Xanax) 0.25 mg PRN TID PRN PO anxiety Last administered on 11/17/19at 09:43; Start 11/01/19 at 17:11 Miscellaneous (Lidoderm Patch Removal) 1 ea QHS MC ; Start 11/01/19 at 21:00; Stop 11/01/19 at 20:34; Status DC Ceftriaxone Sodium (Rocephin) 1 gm QHS IVP Last administered on 11/15/19 21:26; Start 11/01/19 at 18:45; Stop 11/16/19 at 08:52; Status DC Tramadol HCl (Ultram) 50 mg PRN Q8HRS PRN PO MILD PAIN 1-3 Last administered on 11/15/19at 17:56; Start 11/01/19 at 19:45 Hydromorphone HCl (Dilaudid) 1 mg PRN Q4HRS PRN IV SEVERE PAIN Last administered on 11/17/19at 11:22; Start 11/01/19 at 20:15 Lidocaine (Lidoderm) 1 patch QHS TP Last administered on 11/16/19at 21:26; Start 11/01/19 at 21:00 Miscellaneous (Lidoderm Patch Removal) 1 ea DAILY MC Last administered on 11/17/19at 08:30; Start 11/02/19 at 09:00 Albumin Human 500 ml @ 125 mls/hr 1X ONCE IV ; Start 11/02/19 at 02:00; Stop 11/02/19 at 05:59; Status Cancel Acetaminophen (Tylenol) 650 mg 1X PRN PRN PO PRE-TRANSFUSION; Start 11/02/19 at 06:45; Stop 11/03/19 at 14:16; Status DC Diphenhydramine HCl (Benadryl Oral Elixir) 12.5 mg 1X PRN PRN PO PRE- TRANSFUSION; Start 11/02/19 at 06:45; Stop 11/03/19 at 14:16; Status DC Diphenhydramine HCl (Benadryl) 25 mg PRN 1X PRN PO PRE-TRANSFUSION; Start 11/02/19 at 06:45; Stop 11/03/19 at 14:16; Status DC Lactulose (LACTULOSE 300ML for RECTAL) 200 gm Q6HRS [place] Last administered on 11/02/19at 18:00; Start 11/02/19 at 18:00; Stop 11/04/19 at 14:44; Status DC Sodium Chloride 1,000 ml @ 100 mls/hr Q10H IV Last administered on 11/13/19at 15:30; Start 11/02/19 at 12:00; Stop 11/14/19 at 11:28; Status DC Lactulose (Lactulose) 20 gm PRN DAILY PRN PO CONSTIPATION, 2ND CHOICE; Start 11/04/19 at 14:45 Oxycodone HCl (Roxicodone) 5 mg PRN Q6HRS PRN PO MODERATE TO SEVERE PAIN Last administered on 11/17/19at 08:30; Start 11/04/19 at 14:45 Lidocaine HCl (Buffered Lidocaine 1%) 3 ml STK-MED ONCE .ROUTE ; Start 11/05/19 at 08:13; Stop 11/05/19 at 08:13; Status DC Lidocaine HCl (Buffered Lidocaine 1%) 3 ml STK-MED ONCE .ROUTE ; Start 11/05/19 at 08:14; Stop 11/05/19 at 08:14; Status DC Midazolam HCl (Versed) 2 mg STK-MED ONCE .ROUTE ; Start 11/05/19 at 08:40; Stop 11/05/19 at 08:40; Status DC Fentanyl Citrate (Fentanyl 2ml Vial) 100 mcg STK-MED ONCE .ROUTE ; Start 11/05/19 at 08:40; Stop 11/05/19 at 08:41; Status DC Lidocaine HCl (Buffered Lidocaine 1%) 3 ml 1X ONCE IJ Last administered on 11/05/19at 08:45; Start 11/05/19 at 08:45; Stop 11/05/19 at 08:50; Status DC Midazolam HCl (Versed) 2 mg 1X ONCE IV Last administered on 11/05/19at 08:45; Start 11/05/19 at 08:45; Stop 11/05/19 at 08:50; Status DC Fentanyl Citrate (Fentanyl 2ml Vial) 100 mcg 1X ONCE IV Last administered on 11/05/19at 08:45; Start 11/05/19 at 08:45; Stop 11/05/19 at 08:50; Status DC Dexamethasone Sodium Phosphate (Decadron) 4 mg Q6HRS IVP Last administered on 11/17/19at 06:03; Start 11/06/19 at 09:00; Stop 11/17/19 at 08:53; Status DC Insulin Glargine (Lantus Syringe) 40 unit QHS SQ Last administered on 11/15/19at 21:00; Start 11/07/19 at 21:00; Stop 11/16/19 at 08:53; Status DC Insulin Human Lispro (HumaLOG) 10 units TIDAC SQ Last administered on 11/14/19at 17:31; Start 11/07/19 at 16:30; Stop 11/15/19 at 08:16; Status DC Insulin Human Lispro (HumaLOG) 0-9 UNITS TIDWMEALS SQ Last administered on 11/11/19at 17:13; Start 11/07/19 at 17:00; Stop 11/12/19 at 15:37; Status DC Insulin Human Lispro (HumaLOG) 19 units 1X ONCE SQ Last administered on 11/09/19at 12:41; Start 11/09/19 at 12:15; Stop 11/09/19 at 12:16; Status DC Insulin Human Lispro (HumaLOG) 5 units 1X ONCE SQ Last administered on 11/09/19at 13:52; Start 11/09/19 at 13:30; Stop 11/09/19 at 13:31; Status DC Non-Formulary Medication 1 ea DAILY PO ; Start 11/09/19 at 16:30; Status Cancel Ondansetron HCl (Zofran) 4 mg PRN Q6HRS PRN IV NAUSEA/VOMITING; Start 11/12/19 at 07:00; Stop 11/12/19 at 19:56; Status DC Fentanyl Citrate (Fentanyl 2ml Vial) 25 mcg PRN Q5MIN PRN IV MILD PAIN 1-3; Start 11/12/19 at 07:00; Stop 11/12/19 at 19:56; Status DC Fentanyl Citrate (Fentanyl 2ml Vial) 50 mcg PRN Q5MIN PRN IV MODERATE TO SEVERE PAIN; Start 11/12/19 at 07:00; Stop 11/12/19 at 19:56; Status DC Morphine Sulfate (Morphine Sulfate) 1 mg PRN Q10MIN PRN IV SEVERE PAIN 7-10; Start 11/12/19 at 07:00; Stop 11/09/19 at 17:30; Status DC Ringer's Solution 1,000 ml @ 30 mls/hr Q24H IV Last administered on 11/12/19at 10:00; Start 11/12/19 at 07:00; Stop 11/12/19 at 18:59; Status DC Lidocaine HCl (Xylocaine-Mpf 1% 2ml Vial) 2 ml PRN 1X PRN ID PRIOR TO IV START; Start 11/12/19 at 07:00; Stop 11/12/19 at 19:56; Status DC Hydromorphone HCl (Dilaudid) 0.5 mg PRN Q10MIN PRN IV SEV PAIN, Second choice; Start 11/12/19 at 07:00; Stop 11/12/19 at 19:56; Status DC Prochlorperazine Edisylate (Compazine) 5 mg PACU PRN PRN IV NAUSEA, MRX1; Start 11/12/19 at 07:00; Stop 11/12/19 at 19:56; Status DC Pantoprazole Sodium (Protonix) 40 mg DAILYAC PO Last administered on 11/14/19at 08:19; Start 11/09/19 at 18:30; Stop 11/15/19 at 09:25; Status DC Levetiracetam (Keppra) 500 mg BID PO Last administered on 11/17/19at 08:29; Start 11/09/19 at 21:00 Non-Formulary Medication 1 ea DAILY PO Last administered on 11/17/19at 09:44; Start 11/12/19 at 09:00 Insulin Human Lispro (HumaLOG) 8 units 1X ONCE SQ Last administered on 11/10/19at 12:32; Start 11/10/19 at 12:15; Stop 11/10/19 at 12:16; Status DC Propofol 20 ml @ As Directed STK-MED ONCE IV ; Start 11/12/19 at 07:48; Stop 11/12/19 at 07:48; Status DC Dexamethasone Sodium Phosphate (Decadron) 20 mg STK-MED ONCE .ROUTE ; Start 11/12/19 at 07:48; Stop 11/12/19 at 07:48; Status DC Lidocaine HCl (Lidocaine Pf 2% Vial) 5 ml STK-MED ONCE .ROUTE ; Start 11/12/19 at 07:48; Stop 11/12/19 at 07:48; Status DC Ondansetron HCl (Zofran) 4 mg STK-MED ONCE .ROUTE ; Start 11/12/19 at 07:48; Stop 11/12/19 at 07:48; Status DC Phenylephrine HCl (Tony-Synephrine Inj) 10 mg STK-MED ONCE .ROUTE ; Start 11/12/19 at 07:48; Stop 11/12/19 at 07:48; Status DC Propofol 50 ml @ As Directed STK-MED ONCE IV ; Start 11/12/19 at 07:48; Stop 11/12/19 at 07:48; Status DC Rocuronium Quin[place] (Zemuron) 50 mg STK-MED ONCE .ROUTE ; Start 11/12/19 at 07:48; Stop 11/12/19 at 07:48; Status DC Remifentanil HCl (Ultiva) 2 mg STK-MED ONCE IV ; Start 11/12/19 at 07:48; Stop 11/12/19 at 07:49; Status DC Sodium Chloride (SODIUM CHLORIDE 20ml) 20 ml STK-MED ONCE IJ ; Start 11/12/19 at 07:49; Stop 11/12/19 at 07:49; Status DC Multi-Ingred Cream/Lotion/Oil/ Oint (Artificial Tears Eye Ointment) 7 raza STK- MED ONCE .ROUTE ; Start 11/12/19 at 07:49; Stop 11/12/19 at 07:49; Status DC Bacitracin 29154 unit/Sodium Chloride 1,000 ml @ 1,000 mls/hr 1X ONCE IRR Last administered on 11/12/19at 11:26; Start 11/12/19 at 07:57; Stop 11/12/19 at 08:56; Status DC Sodium Chloride (SODIUM CHLORIDE 20ml) 20 ml STK-MED ONCE IJ ; Start 11/12/19 at 07:57; Stop 11/12/19 at 07:57; Status DC Gelatin (Gelfoam Size 100) 1 each STK-MED ONCE .ROUTE Last administered on 11/12/19at 11:26; Start 11/12/19 at 07:59; Stop 11/12/19 at 07:59; Status DC Cellulose (Surgicel Hemostat 4x8) 1 each STK-MED ONCE .ROUTE Last administered on 11/12/19at 12:01; Start 11/12/19 at 07:59; Stop 11/12/19 at 08:00; Status DC Lidocaine/ Epinephrine (LIDOCAINE 1%-EPI 1:100,000 Multi-Dose) 20 ml STK-MED ONCE .ROUTE Last administered on 11/12/19at 11:26; Start 11/12/19 at 07:59; Stop 11/12/19 at 08:00; Status DC Thrombin 20,000 unit STK-MED ONCE TP Last administered on 11/12/19at 11:26; Start 11/12/19 at 08:00; Stop 11/12/19 at 08:00; Status DC Bacitracin (Bacitracin Zinc Oint Pkt) 1 pkt STK-MED ONCE TP ; Start 11/12/19 at 08:00; Stop 11/12/19 at 08:00; Status DC Propofol 100 ml @ As Directed STK-MED ONCE IV ; Start 11/12/19 at 08:02; Stop 11/12/19 at 08:02; Status DC Insulin Human Lispro (HumaLOG) 11 units 1X ONCE SQ Last administered on 11/12/19at 08:15; Start 11/12/19 at 08:15; Stop 11/12/19 at 08:16; Status DC Gadoterate Meglumine (Dotarem) 24.8 ml 1X ONCE IVP Last administered on 11/12/19at 08:15; Start 11/12/19 at 08:15; Stop 11/12/19 at 08:16; Status DC Insulin Human Regular 100 unit/ Sodium Chloride 101 ml @ 12.484 mls/ hr ONCE ONCE IV ; Start 11/12/19 at 08:15; Stop 11/12/19 at 16:20; Status DC Desflurane (Suprane) 90 ml STK-MED ONCE IH ; Start 11/12/19 at 08:11; Stop 11/12/19 at 08:11; Status DC Fentanyl Citrate (Fentanyl 2ml Vial) 100 mcg STK-MED ONCE .ROUTE ; Start at 08:20; Stop 11/12/19 at 08:20; Status DC Midazolam HCl (Versed) 2 mg STK-MED ONCE .ROUTE ; Start 11/12/19 at 08:20; Stop 11/12/19 at 08:20; Status DC Rocuronium Quin[place] (Zemuron) 50 mg STK-MED ONCE .ROUTE ; Start 11/12/19 at 09:11; Stop 11/12/19 at 09:12; Status DC Mannitol (Mannitol) 12.5 g STK-MED ONCE .ROUTE ; Start 11/12/19 at 09:22; Stop 11/12/19 at 09:23; Status DC Propofol 100 ml @ As Directed STK-MED ONCE IV ; Start 11/12/19 at 09:22; Stop 11/12/19 at 09:23; Status DC Lidocaine HCl (Xylocaine-Mpf 1% 2ml Vial) 2 ml STK-MED ONCE .ROUTE ; Start 11/12/19 at 09:24; Stop 11/12/19 at 09:24; Status DC Cefazolin Sodium 3 gm/Dextrose 100 ml @ 200 mls/hr 1X PREOP ONCE IV Last administered on 11/12/19 10:53; Start 11/12/19 at 10:30; Stop 11/12/19 at 10:59; Status DC Gelatin (Gelfoam Size 12-7mm) 1 each STK-MED ONCE .ROUTE Last administered on 11/12/19 12:03; Start 11/12/19 at 11:59; Stop 11/12/19 at 12:01; Status DC Thrombin 20,000 unit STK-MED ONCE TP Last administered on 11/12/19 12:04; Start 11/12/19 at 12:00; Stop 11/12/19 at 12:01; Status DC Gelatin (Gelfoam Size 100) 1 each STK-MED ONCE .ROUTE Last administered on 11/12/19 12:25; Start 11/12/19 at 12:26; Stop 11/12/19 at 12:26; Status DC Gelatin (Gelfoam Size 12-7mm) 1 each STK-MED ONCE .ROUTE Last administered on 11/12/19 13:35; Start 11/12/19 at 13:32; Stop 11/12/19 at 13:33; Status DC Thrombin 20,000 unit STK-MED ONCE TP Last administered on 11/12/19 13:35; Start 11/12/19 at 13:32; Stop 11/12/19 at 13:33; Status DC Gelatin (Gelfoam Size 12-7mm) 1 each STK-MED ONCE .ROUTE Last administered on 11/12/19 13:55; Start 11/12/19 at 13:55; Stop 11/12/19 at 13:55; Status DC Gelatin (Gelfoam Size 12-7mm) 1 each STK-MED ONCE .ROUTE Last administered on 11/12/19 13:59; Start 11/12/19 at 13:59; Stop 11/12/19 at 13:59; Status DC Labetalol HCl (Normodyne Iv Push) 5 mg PRN Q15MIN PRN IVP HYPERTENSION; Start 11/12/19 at 15:15 Nicardipine HCl 50 mg/Sodium Chloride 250 ml @ 25 mls/hr TITRATE PRN IV SBP 90-140; Start 11/12/19 at 15:15; Stop 11/15/19 at 08:16; Status DC Hydralazine HCl (Apresoline Inj) 5 mg PRN Q6HRS PRN IVP TO KEEP SBP<140mmHg; Start 11/12/19 at 15:15 Al Hydroxide/Mg Hydroxide (Mylanta Plus Xs) 30 ml PRN Q3HRS PRN PO HEARTBURN / GAS; Start 11/12/19 at 15:15 Calcium Carbonate/ Glycine (Tums) 500 mg PRN Q3HRS PRN PO INDIGESTION; Start 11/12/19 at 15:15 Diphenhydramine HCl (Benadryl) 25 mg PRN Q6HRS PRN PO ITCHING; Start 11/12/19 at 15:15 Diphenhydramine HCl (Benadryl) 25 mg PRN Q6HRS PRN IV ITCHING; Start 11/12/19 at 15:15 Sodium Chloride (Normal Saline Flush) 3 ml QSHIFT PRN IV AFTER MEDS AND BLOOD DRAWS; Start 11/12/19 at 15:15 Insulin Human Lispro (HumaLOG) 0-5 UNITS TIDWMEALS SQ Last administered on 11/17/19at 08:39; Start 11/12/19 at 17:00; Stop 11/17/19 at 08:54; Status DC Dextrose (Dextrose 50%-Water Syringe) 12.5 gm PRN Q15MIN PRN IV SEE COMMENTS; Start 11/12/19 at 15:15 Dextrose (Iv Dextrose 5%) 250 ml PRN Q15MIN PRN IV SEE COMMENTS; Start 11/12/19 at 15:15 Hydromorphone HCl (Dilaudid) 0.2 mg PRN Q1HR PRN IV MODERATE PAIN; Start 11/12/19 at 15:15 Insulin Human Lispro (HumaLOG VIAL for OP,RR ONLY) 0-10 units PRN Q1HR PRN SQ PER PROTOCOL Last administered on 11/12/19at 15:50; Start 11/12/19 at 16:00; Stop 11/12/19 at 19:54; Status DC Insulin Human Lispro (HumaLOG VIAL for OP,RR ONLY) 4 unit 1X ONCE SQ ; Start 11/12/19 at 16:45; Stop 11/12/19 at 16:46; Status DC Ferrous Sulfate (Iron Oral Solution) 300 mg QD PO Last administered on 11/17/19at 08:29; Start 11/13/19 at 10:00 Gadoterate Meglumine (Dotarem) 10 ml 1X ONCE IVP Last administered on 11/13/19at 15:00; Start 11/13/19 at 14:45; Stop 11/13/19 at 14:48; Status DC Gadoterate Meglumine (Dotarem) 15 ml 1X ONCE IVP Last administered on at 15:00; Start 11/13/19 at 14:45; Stop 11/13/19 at 14:48; Status DC Insulin Human Lispro (HumaLOG) 15 units TIDAC SQ Last administered on 11/15/19at 17:08; Start 11/15/19 at 08:15; Stop 11/16/19 at 08:53; Status DC Insulin Glargine (Lantus Syringe) 20 unit DAILY SQ Last administered on 11/15/19at 09:20; Start 11/15/19 at 09:00; Stop 11/16/19 at 08:53; Status DC Enoxaparin Sodium (Lovenox 40mg Syringe) 40 mg Q12H SQ Last administered on 11/15/19at 23:36; Start 11/15/19 at 10:00; Stop 11/16/19 at 07:50; Status DC Enoxaparin Sodium (Lovenox 40mg Syringe) 40 mg DAILY SQ Last administered on 11/17/19at 08:30; Start 11/16/19 at 09:00 Meropenem 1 gm/ Sodium Chloride 100 ml @ 200 mls/hr Q8HRS IV ; Start 11/16/19 at 14:00; Stop 11/16/19 at 12:31; Status DC Insulin Glargine (Lantus Syringe) 40 unit BID SQ Last administered on 11/17/19at 09:48; Start 11/16/19 at 09:00 Insulin Human Lispro (HumaLOG) 20 units TIDAC SQ Last administered on 11/17/19at 08:40; Start 11/16/19 at 11:30 Insulin Glargine (Lantus Syringe) 20 unit 1X ONCE SQ Last administered on 11/16/19at 09:48; Start 11/16/19 at 09:15; Stop 11/16/19 at 09:16; Status DC Fosfomycin Tromethamine (Monurol) 3 gm 1X ONCE PO Last administered on 11/16/19at 12:49; Start 11/16/19 at 12:30; Stop 11/16/19 at 12:33; Status DC Fosfomycin Tromethamine (Monurol) 3 gm 1X ONCE PO ; Start 11/18/19 at 09:00; Stop 11/18/19 at 09:01 Dexamethasone (Decadron) 4 mg QID PO ; Start 11/17/19 at 13:00 Insulin Human Lispro (HumaLOG) 0-9 UNITS TIDWMEALS SQ ; Start 11/17/19 at 12:00 Dextrose (Dextrose 50%-Water Syringe) 12.5 gm PRN Q15MIN PRN IV SEE COMMENTS; Start 11/17/19 at 09:00; Status UNV Dextrose (Iv Dextrose 5%) 250 ml PRN Q15MIN PRN IV SEE COMMENTS; Start 11/17/19 at 09:00 Active Scripts Active Enoxaparin Sodium 120 Mg/0.8 Ml Disp.syrin 120 Mg SQ Q12HR 28 Days Dexamethasone 4 Mg Tablet 4 Mg PO BID 14 Days Culturelle (Lactobacillus Rhamnosus Gg) 1 Each Cap.sprink 1 Cap PO BID 30 Days Amlodipine Besylate 5 Mg Tablet 5 Mg PO DAILY 30 Days Cefdinir 300 Mg Capsule 300 Mg PO BID 10 Days Reported Cymbalta (Duloxetine Hcl) 60 Mg Capsule.dr 1 Cap PO BID Lyrica (Pregabalin) 150 Mg Capsule 1 Cap PO BID Novolog (Insulin Aspart) 100 Unit/1 Ml Cartridge 10-45 Unit SQ QIDACHS Levemir (Insulin Detemir) 100 Unit/1 Ml Vial 30 Unit SQ HS Linzess (Linaclotide) 145 Mcg Capsule 145 Mcg PO PRN PRN Crestor (Rosuvastatin Calcium) 40 Mg Tablet 0.5 Tab PO DAILY Polyethylene Glycol 3350 2,500 Gm Powder 17 Gm PO PRN PRN Xanax (Alprazolam) 1 Mg Tablet 1 Tab PO TID Restasis (Cyclosporine) 1 Each Droperette 1 Drop EACHEYE BID Proair Hfa Inhaler (Albuterol Sulfate) 8.5 Gm Hfa.aer.ad 1 Puff INH PRN Q6HRS PRN Tramadol Hcl 50 Mg Tablet 1 Tab PO PRN Q8HRS PRN Ondansetron Hcl 4 Mg Tablet 2 Tab PO PRN Q8HRS PRN Nystatin 15 Gm Powder 1 Raza TP BID Lidocaine PATCH (Lidocaine) 1 Each Adh..patch 1 Each TP DAILY Fluticasone Propionate Nasal [place] (Fluticasone Propionate) 16 Gm [place].susp 2 [place] NS DAILY Percocet 5-325 Mg Tablet (Oxycodone/Acetaminophen) 1 Each Tablet 1-2 Tab PO Q4-6HRS PRN LAST DOSE AT NEXT DOSE Senna-Docusate Sodium Tablet (Sennosides/Docusate Sodium) 1 Each Tablet 1 Each PO BID LAST DOSE THIS AM NEXT DOSE TONIGHT Robaxin-750 (Methocarbamol) 750 Mg Tablet 1 Tab PO TID LAST DOSE AT 1400 (2PM) MAY HAVE THE NEXT DOSE AT 10 PM Protonix (Pantoprazole Sodium) 40 Mg Tablet.dr 40 Mg PO DAILY LST DOSE THIS AM NEXT DOSE TOMORROW AM Carafate (Sucralfate) 1 Gm Tablet 1 Tab PO TID Meds not given this hospital admission. May resume home medications as approved by Physician. MAY TAKE WHEN AVAILABLE Xarelto (Rivaroxaban) 15 Mg Tablet 15 Mg PO DAILY Meds not given this hospital admission. May resume home medications as approved by Physician. MAY RESUME WHEN AVAILABLE Metoprolol Succinate ( Xl ) (Metoprolol Succinate) 100 Mg Tab.er.24h 100 Mg PO HS LAST DOSE THIS AM NEXT DOSE TOMORROW AM Vitals/I & O Vital Sign - Last 24 Hours 11/16/19 11/16/19 11/16/19 11/16/19 13:59 14:51 15:00 16:05 Temp 97.9 97.9 Pulse 97 Resp 18 B/P (MAP) 103/57 (72) Pulse Ox 75 75 96 O2 Delivery Room Air Room Air Room Air Room Air 11/16/19 11/16/19 11/16/19 11/16/19 17:05 18:00 18:30 19:00 Temp 98.6 98.6 Pulse 101 Resp 18 B/P (MAP) 103/57 (72) Pulse Ox 98 O2 Delivery Room Air Room Air Room Air Room Air 12/11/16/19 11/16/19 11/16/19 19:40 21:25 22:19 23:00 Temp 99.0 99.0 Pulse 101 84 Resp 18 B/P (MAP) 103/57 105/55 (72) Pulse Ox 96 O2 Delivery Room Air Room Air Room Air 11/16/19 11/17/19 11/17/19 11/17/19 23:24 02:20 02:58 03:00 Temp 98.4 98.4 Pulse 68 Resp 18 B/P (MAP) 99/57 (71) Pulse Ox 94 O2 Delivery Room Air Room Air Room Air Room Air 11/17/19 11/17/19 11/17/19 11/17/19 06:20 07:08 07:10 07:29 Temp 98.4 98.4 Pulse 68 Resp 16 B/P (MAP) 96/52 (67) Pulse Ox 96 O2 Delivery Room Air Room Air Room Air Room Air 11/17/19 11/17/19 11/17/19 11/17/19 08:30 08:31 09:48 11:00 Temp 98.3 98.3 Pulse 68 88 Resp 16 B/P (MAP) 96/52 106/56 (73) Pulse Ox 98 O2 Delivery Room Air Room Air Room Air O2 Flow Rate 96.0 11/17/19 11:22 O2 Delivery Room Air Intake and Output 11/16/19 11/16/19 11/17/19 15:00 23:00 07:00 Intake Total 600 ml 800 ml Output Total 1200 ml 500 ml Balance -600 ml 300 ml Nutrition Consultation Dietary Evaluation: Recommendations by RD: Dietary education by RD, Increase Calorie Intake, Protein supplementation Comments: REC ADA/cardiac diet ,glucerna tid Expected Outcomes/Goals: PO intake to meet >75% est needs- met at times, goal ongoing Interpretation of weight loss: >5% in 1 month Malnutrition Findings: Food and Nutrition Intake (Sev: <50% est energy req 5days Weight Status: Morbidly Obese BINH WELCH MD Nov 17, 2019 11:40
[2019-11-17] MEDS: DEXAMETHASONE 4 MG TABLET PO SCH ×3 (12:12→21:04)
[2019-11-17] MEDS: ONDANSETRON ODT 4 MG TAB.RAPDIS. PO PRN (12:12)
--- NOTE | 2019-11-17 12:30 | NUR ---
800cc of clear yellow urine returned. Pt. states she is feeling better after emptying her bladder.
[2019-11-17 15:00] VITALS: BP 116/48
--- NOTE | 2019-11-17 18:00 | NUR ---
Pt. not able to void, bladder scanned, 255cc noted.
[2019-11-17 19:00] VITALS: BP 104/56
[2019-11-17] MEDS: LIDOCAINE (700MG/PATCH) PATCH. TP SCH (21:03)
[2019-11-17] MEDS: ATORVASTATIN CALCIUM 40 MG TABLET. PO SCH (21:05)
[2019-11-17] MEDS: METOPROLOL SUCC 24HR ER 100 MG TAB.ER.24H. PO SCH (21:05)
[2019-11-17 23:01] VITALS: BP 105/50
--- NOTE | 2019-11-18 00:30 | NUR ---
Patient not able to void since 1999, bladder scan showed 350cc of urine in bladder. Patient was straight catheterized and returned 900cc of clear yellow urine. RN will continue to monitor urine output.
[2019-11-18] MEDS: HYDROmorphone 2 MG/ML VIAL IV PRN ×6 (01:17→21:48)
[2019-11-18 02:13] VITALS: BP 97/55
[2019-11-18] MEDS: SUCRALFATE 1 GM TABLET. PO SCH ×3 (06:25→16:50)
[2019-11-18 07:00] VITALS: BP 109/55
[2019-11-18] MEDS: INSULIN LISPRO 300 UNITS/3 ML VIAL. SQ SCH ×7 (08:00→16:50)
[2019-11-18] MEDS: ALPRAZolam 0.25 MG TABLET PO PRN ×2 (08:31→20:52)
[2019-11-18] MEDS: oxyCODONE IR 5 MG TABLET PO PRN ×3 (08:32→20:46)
[2019-11-18] MEDS ORDERED: FOSFOMYCIN TROMETHAMINE 3 GM PACKET PO ONE (09:00)
[2019-11-18] MEDS: PATCH REMOVAL. MC SCH (09:00)
[2019-11-18] MEDS: ENOXAPARIN 40 MG/0.4 ML SYRINGE. SQ SCH (09:36)
[2019-11-18] MEDS: FERROUS SULFATE ORAL 300 MG/5 ML SOLUTION. PO SCH (09:36)
[2019-11-18] MEDS: cycloSPORINE 0.05% OPHTH DROPERETTE. OU SCH ×2 (09:37→20:46)
[2019-11-18] MEDS: levETIRAcetam 500 MG TABLET PO SCH ×2 (09:37→20:47)
[2019-11-18] MEDS: SENNOSIDES/DOCUSATE 8.6/50MG TABLET. PO SCH ×2 (09:37→20:49)
[2019-11-18] MEDS: DEXAMETHASONE 4 MG TABLET PO SCH ×4 (09:37→20:48)
[2019-11-18] MEDS: FLUTICASONE 50MCG/NASAL SPRAY 16GM BOTTLE. NS SCH (09:37)
--- NOTE | 2019-11-18 09:47 | PDOC ---
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 Leukocytosis on decadron - has gotten 44 iV doses, shifted to PO decadron 11.17 Acute encephalopathy -POA, resolved Headaches stable DM2 uncontrolled on decadron IV Chronic Back Pain and Sciatica Rt Leg Acute blood loss anemia Brain Mass Hx PE Hypotension resolved Epistaxis resolved GEnw eakness, - REhab on dc Urnary retention off bateman 11/17 MDR ESBL UTI History of Present Illness History of Present Illness BS still high despite my inc insulin coverage NEeded to be straight cath'd at least 3x - had bateman for about a week MDR ESBL UTI< was on rocephin for longest time NOW on PO x 2 doses q48 hrs per Dr Mitchel suero STable headache Slated for Rehab tuesday CAN TAKE OUT RT CENTRAL LINE ON TUESDAY PRIOR TO DC EARLIER ENTRY transferred out of ICU 12. PAssed swallow (reg diet thin liq) ABle to move RT leg! 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 PLAN; REHAb tuesday TAKE OUT CENTRAL LINE BEFORE DC MAke sure ABX PO by ID FOR MDR ESBL UTI before dc if needed NO bateman for now, I THINK SHE is regaining her bladder muscle back Further inc lispro to 30 TID with emals from 20 TID COnt long acting 40 BID COnt PO decadron 4 QID on dc FF UP NS as instructed by service Vitals Vitals Vital Signs Date Time Temp Pulse Resp B/P (MAP) Pulse Ox O2 Delivery O2 Flow Rate FiO2 11/18/19 08:32 16 Room Air 11/18/19 07:00 97.6 72 109/55 (73) 96 97.6 11/17/19 08:30 96.0 Physical Exam Physical Exam GENERAL: Propped up in bed, alert, in NAD HEENT: Oral mucosa moist. No oropharyngeal lesion. Scalp incision well approximated, no drainage, no surrounding redness NECK: Supple. LUNGS: Clear bilaterally HEART: S1, S2. No gallops or murmurs. ABDOMEN: Obese, soft, nontender, bowel sounds active. Ecchymosis present EXTREMITIES: Right lower extremity edema. No cyanosis. SKIN: Warm and dry. No rash RIJ clean General: Cooperative, mild distress, Other (extremely weak and depressed) Heart: Regular rate, Normal S1, Normal S2 Lungs: Wheezing Abdomen: Soft, Other (eechymosis improving) Extremities: No clubbing, No cyanosis, No edema, Normal pulses, No tenderness/swelling Skin: No rashes, No breakdown, Other (Ecchymosis on right abdomen) Labs LABS Laboratory Tests Test 11/17/19 10:20 11/17/19 16:43 11/17/19 20:45 Glucose (Fingerstick) 315 mg/dL (70-99) 251 mg/dL (70-99) 209 mg/dL (70-99) Review of Systems Review of Systems stable headaches, all else is neg Assessment and Plan Assessmemt and Plan Problems Medical Problems: (1) Abdominal hemorrhage Status: Acute (2) Generalized weakness Status: Acute (3) Lactic acidosis Status: Acute (4) Leukocytosis Status: Acute Comment Review of Relevant I have reviewed the following items mustapha (where applicable) has been applied. Labs Laboratory Tests Test 11/16/19 09:45 11/16/19 11:12 11/16/19 16:45 11/16/19 20:48 Hemoglobin A1c 7.5 % (4.8-5.6) Glucose (Fingerstick) 315 mg/dL (70-99) 223 mg/dL (70-99) 236 mg/dL (70-99) Test 11/17/19 05:10 11/17/19 07:21 11/17/19 10:20 11/17/19 16:43 White Blood Count 18.5 x10^3/uL (4.0-11.0) Red Blood Count 2.87 x10^6/uL (3.50-5.40) Hemoglobin 8.5 g/dL (12.0-15.5) Hematocrit 26.7 % (36.0-47.0) Mean Corpuscular Volume 93 fL (79-100) Mean Corpuscular Hemoglobin 30 pg (25-35) Mean Corpuscular Hemoglobin Concent 32 g/dL (31-37) Red Cell Distribution Width 18.8 % (11.5-14.5) Platelet Count 348 x10^3/uL (140-400) Neutrophils (%) (Auto) 93 % (31-73) Lymphocytes (%) (Auto) 5 % (24-48) Monocytes (%) (Auto) 2 % (0-9) Eosinophils (%) (Auto) 0 % (0-3) Basophils (%) (Auto) 0 % (0-3) Neutrophils # (Auto) 17.2 x10^3/uL (1.8-7.7) Lymphocytes # (Auto) 0.9 x10^3/uL (1.0-4.8) Monocytes # (Auto) 0.4 x10^3/uL (0.0-1.1) Eosinophils # (Auto) 0.0 x10^3/uL (0.0-0.7) Basophils # (Auto) 0.0 x10^3/uL (0.0-0.2) Sodium Level 135 mmol/L (136-145) Potassium Level 4.0 mmol/L (3.5-5.1) Chloride Level 101 mmol/L (98-107) Carbon Dioxide Level 31 mmol/L (21-32) Anion Gap 3 (6-14) Blood Urea Nitrogen 27 mg/dL (7-20) Creatinine 0.6 mg/dL (0.6-1.0) Estimated GFR (Cockcroft-Gault) 107.2 Glucose Level 237 mg/dL (70-99) Calcium Level 8.4 mg/dL (8.5-10.1) Glucose (Fingerstick) 216 mg/dL (70-99) 315 mg/dL (70-99) 251 mg/dL (70-99) Test 11/17/19 20:45 Glucose (Fingerstick) 209 mg/dL (70-99) Laboratory Tests Test 11/17/19 10:20 11/17/19 16:43 11/17/19 20:45 Glucose (Fingerstick) 315 mg/dL (70-99) 251 mg/dL (70-99) 209 mg/dL (70-99) Microbiology 11/10/19 Urine Culture - Final, Complete 11/10/19 Urine Culture Result 1 (СВЕТЛАНА) - Final, Complete 11/10/19 Antimicrobic Susceptibility - Final, Complete 11/01/19 Blood Culture - Final, Complete NO GROWTH AFTER 5 DAYS Medications Current Medications Sodium Chloride 500 ml @ 500 mls/hr 1X ONCE IV Last administered on 11/01/19at 13:00; Start 11/01/19 at 13:00; Stop 11/01/19 at 13:59; Status DC Ondansetron HCl (Zofran) 4 mg 1X ONCE IV Last administered on 11/01/19at 13:26; Start 11/01/19 at 13:00; Stop 11/01/19 at 13:13; Status DC Hydromorphone HCl (Dilaudid) 0.5 mg 1X STAT IVP Last administered on 11/01/19at 13:26; Start 11/01/19 at 12:59; Stop 11/01/19 at 13:13; Status DC Iohexol (Omnipaque 300 Mg/ml) 75 ml 1X ONCE IV Last administered on 11/01/19at 14:08; Start 11/01/19 at 13:45; Stop 11/01/19 at 13:46; Status DC Info (CONTRAST GIVEN -- Rx MONITORING) 1 each PRN DAILY PRN MC SEE COMMENTS; Start 11/01/19 at 14:00; Stop 11/03/19 at 13:59; Status DC Hydromorphone HCl (Dilaudid) 0.5 mg 1X STAT IVP Last administered on 11/01/19at 16:53; Start 11/01/19 at 16:21; Stop 11/01/19 at 16:23; Status DC Sodium Chloride 1,000 ml @ 1,000 mls/hr 1X ONCE IV Last administered on 11/08at 16:30; Start 11/01/19 at 16:30; Stop 11/01/19 at 17:29; Status DC Sodium Chloride 500 ml @ 500 mls/hr 1X ONCE IV Last administered on 11/01/19at 16:30; Start 11/01/19 at 16:30; Stop 11/01/19 at 17:29; Status DC Albuterol Sulfate (Ventolin Neb Soln) 2.5 mg PRN Q6HRS PRN INH SHORTNESS OF BREATH; Start 11/01/19 at 16:30; Status Cancel Alprazolam (Xanax) 0.25 mg PRN TID PRN PO anxiety; Start 11/01/19 at 16:30; Stop 11/01/19 at 17:11; Status DC Amlodipine Besylate (Norvasc) 5 mg DAILY PO Last administered on 11/16/19at 08:47; Start 11/02/19 at 09:00; Stop 11/18/19 at 09:18; Status DC Cyclosporine (Restasis) 1 drop BID OU Last administered on 11/17/19at 21:05; Start 11/01/19 at 21:00 Fluticasone Propionate (Flonase) 2 spray DAILY NS Last administered on 11/17/19 09:43; Start 11/02/19 at 09:00 Lactobacillus Rhamnosus (Culturelle) 1 cap BID PO Last administered on 11/09/19 08:28; Start 11/01/19 at 21:00; Stop 11/09/19 at 16:57; Status DC Lidocaine (Lidoderm) 1 patch DAILY TP ; Start 11/02/19 at 09:00; Stop 11/01/19 at 20:34; Status DC Metoprolol Succinate (Toprol Xl) 100 mg HS PO Last administered on 11/17/19at 21:05; Start 11/01/19 at 21:00; Stop 11/18/19 at 09:18; Status DC Nystatin (Nystop) 1 raza BID TP Last administered on 11/17/19at 21:12; Start 11/01/19 at 21:00 Pantoprazole Sodium (Protonix) 40 mg DAILYAC PO Last administered on 11/09/19at 08:28; Start 11/02/19 at 07:30; Stop 11/09/19 at 16:54; Status DC Senna/Docusate Sodium (Senna Plus) 1 tab BID PO Last administered on 11/17/19at 21:04; Start 11/01/19 at 21:00 Sucralfate (Carafate) 1 gm TIDAC PO Last administered on 11/18/19at 06:25; Start 11/01/19 at 17:30 Tramadol HCl (Ultram) 50 mg PRN Q8HRS PRN PO PAIN; Start 11/01/19 at 16:30; Stop 11/01/19 at 19:43; Status DC Insulin Glargine (Lantus Syringe) 30 unit QHS SQ Last administered on 11/06/19 21:16; Start 11/01/19 at 21:00; Stop 11/07/19 at 15:56; Status DC Ondansetron HCl (Zofran Odt) 8 mg PRN Q8HRS PRN PO NAUSEA/VOMITING Last administered on 11/17/19 12:12; Start 11/01/19 at 17:15 Polyethylene Glycol (miraLAX PACKET) 17 gm PRN DAILY PRN PO CONSTIPATION, 1ST CHOICE Last administered on 11/17/19 08:30; Start 11/01/19 at 17:11 Atorvastatin Calcium (Lipitor) 80 mg QHS PO Last administered on 11/17/19 21:05; Start 11/01/19 at 21:00 Insulin Human Lispro (HumaLOG) 0-9 UNITS TIDAC SQ Last administered on 11/07/19 12:20; Start 11/01/19 at 16:30; Stop 11/07/19 at 15:56; Status DC Dextrose (Dextrose 50%-Water Syringe) 12.5 gm PRN Q15MIN PRN IV SEE COMMENTS; Start 11/01/19 at 16:30; Stop 11/12/19 at 15:36; Status DC Ondansetron HCl (Zofran) 4 mg PRN Q8HRS PRN IV NAUSEA/VOMITING; Start 11/01/19 at 16:30; Stop 11/02/19 at 16:29; Status DC Alprazolam (Xanax) 0.25 mg PRN TID PRN PO anxiety Last administered on 11/18/19at 08:31; Start 11/01/19 at 17:11 Miscellaneous (Lidoderm Patch Removal) 1 ea QHS MC ; Start 11/01/19 at 21:00; Stop 11/01/19 at 20:34; Status DC Ceftriaxone Sodium (Rocephin) 1 gm QHS IVP Last administered on 11/15/19 21:26; Start 11/01/19 at 18:45; Stop 11/16/19 at 08:52; Status DC Tramadol HCl (Ultram) 50 mg PRN Q8HRS PRN PO MILD PAIN 1-3 Last administered on 11/15/19at 17:56; Start 11/01/19 at 19:45 Hydromorphone HCl (Dilaudid) 1 mg PRN Q4HRS PRN IV SEVERE PAIN Last administered on 11/18/19at 05:21; Start 11/01/19 at 20:15 Lidocaine (Lidoderm) 1 patch QHS TP Last administered on 11/17/19at 21:03; Start 11/01/19 at 21:00 Miscellaneous (Lidoderm Patch Removal) 1 ea DAILY MC Last administered on 11/17/19at 08:30; Start 11/02/19 at 09:00 Albumin Human 500 ml @ 125 mls/hr 1X ONCE IV ; Start 11/02/19 at 02:00; Stop 11/02/19 at 05:59; Status Cancel Acetaminophen (Tylenol) 650 mg 1X PRN PRN PO PRE-TRANSFUSION; Start 11/02/19 at 06:45; Stop 11/03/19 at 14:16; Status DC Diphenhydramine HCl (Benadryl Oral Elixir) 12.5 mg 1X PRN PRN PO PRE- TRANSFUSION; Start 11/02/19 at 06:45; Stop 11/03/19 at 14:16; Status DC Diphenhydramine HCl (Benadryl) 25 mg PRN 1X PRN PO PRE-TRANSFUSION; Start 11/02/19 at 06:45; Stop 11/03/19 at 14:16; Status DC Lactulose (LACTULOSE 300ML for RECTAL) 200 gm Q6HRS AR Last administered on 11/02/19at 18:00; Start 11/02/19 at 18:00; Stop 11/04/19 at 14:44; Status DC Sodium Chloride 1,000 ml @ 100 mls/hr Q10H IV Last administered on 11/13/19at 15:30; Start 11/02/19 at 12:00; Stop 11/14/19 at 11:28; Status DC Lactulose (Lactulose) 20 gm PRN DAILY PRN PO CONSTIPATION, 2ND CHOICE; Start 11/04/19 at 14:45 Oxycodone HCl (Roxicodone) 5 mg PRN Q6HRS PRN PO MODERATE TO SEVERE PAIN Last administered on 11/18/19at 08:32; Start 11/04/19 at 14:45 Lidocaine HCl (Buffered Lidocaine 1%) 3 ml STK-MED ONCE .ROUTE ; Start 11/05/19 at 08:13; Stop 11/05/19 at 08:13; Status DC Lidocaine HCl (Buffered Lidocaine 1%) 3 ml STK-MED ONCE .ROUTE ; Start 11/05/19 at 08:14; Stop 11/05/19 at 08:14; Status DC Midazolam HCl (Versed) 2 mg STK-MED ONCE .ROUTE ; Start 11/05/19 at 08:40; Stop 11/05/19 at 08:40; Status DC Fentanyl Citrate (Fentanyl 2ml Vial) 100 mcg STK-MED ONCE .ROUTE ; Start 11/05/19 at 08:40; Stop 11/05/19 at 08:41; Status DC Lidocaine HCl (Buffered Lidocaine 1%) 3 ml 1X ONCE IJ Last administered on at 08:45; Start 11/05/19 at 08:45; Stop 11/05/19 at 08:50; Status DC Midazolam HCl (Versed) 2 mg 1X ONCE IV Last administered on 11/05/19at 08:45; Start 11/05/19 at 08:45; Stop 11/05/19 at 08:50; Status DC Fentanyl Citrate (Fentanyl 2ml Vial) 100 mcg 1X ONCE IV Last administered on 11/05/19at 08:45; Start 11/05/19 at 08:45; Stop 11/05/19 at 08:50; Status DC Dexamethasone Sodium Phosphate (Decadron) 4 mg Q6HRS IVP Last administered on 11/17/19at 06:03; Start 11/06/19 at 09:00; Stop 11/17/19 at 08:53; Status DC Insulin Glargine (Lantus Syringe) 40 unit QHS SQ Last administered on 11/15/19at 21:00; Start 11/07/19 at 21:00; Stop 11/16/19 at 08:53; Status DC Insulin Human Lispro (HumaLOG) 10 units TIDAC SQ Last administered on 11/14/19 t 17:31; Start 11/07/19 at 16:30; Stop 11/15/19 at 08:16; Status DC Insulin Human Lispro (HumaLOG) 0-9 UNITS TIDWMEALS SQ Last administered on 11/11/19at 17:13; Start 11/07/19 at 17:00; Stop 11/12/19 at 15:37; Status DC Insulin Human Lispro (HumaLOG) 19 units 1X ONCE SQ Last administered on 11/09/19at 12:41; Start 11/09/19 at 12:15; Stop 11/09/19 at 12:16; Status DC Insulin Human Lispro (HumaLOG) 5 units 1X ONCE SQ Last administered on 11/09/19at 13:52; Start 11/09/19 at 13:30; Stop 11/09/19 at 13:31; Status DC Non-Formulary Medication 1 ea DAILY PO ; Start 11/09/19 at 16:30; Status Cancel Ondansetron HCl (Zofran) 4 mg PRN Q6HRS PRN IV NAUSEA/VOMITING; Start 11/12/19 at 07:00; Stop 11/12/19 at 19:56; Status DC Fentanyl Citrate (Fentanyl 2ml Vial) 25 mcg PRN Q5MIN PRN IV MILD PAIN 1-3; Start 11/12/19 at 07:00; Stop 11/12/19 at 19:56; Status DC Fentanyl Citrate (Fentanyl 2ml Vial) 50 mcg PRN Q5MIN PRN IV MODERATE TO SEVERE PAIN; Start 11/12/19 at 07:00; Stop 11/12/19 at 19:56; Status DC Morphine Sulfate (Morphine Sulfate) 1 mg PRN Q10MIN PRN IV SEVERE PAIN 7-10; Start 11/12/19 at 07:00; Stop 11/09/19 at 17:30; Status DC Ringer's Solution 1,000 ml @ 30 mls/hr Q24H IV Last administered on 11/12/19at 10:00; Start 11/12/19 at 07:00; Stop 11/12/19 at 18:59; Status DC Lidocaine HCl (Xylocaine-Mpf 1% 2ml Vial) 2 ml PRN 1X PRN ID PRIOR TO IV START; Start 11/12/19 at 07:00; Stop 11/12/19 at 19:56; Status DC Hydromorphone HCl (Dilaudid) 0.5 mg PRN Q10MIN PRN IV SEV PAIN, Second choice; Start 11/12/19 at 07:00; Stop 11/12/19 at 19:56; Status DC Prochlorperazine Edisylate (Compazine) 5 mg PACU PRN PRN IV NAUSEA, MRX1; Start 11/12/19 at 07:00; Stop 11/12/19 at 19:56; Status DC Pantoprazole Sodium (Protonix) 40 mg DAILYAC PO Last administered on 11/14/19at 08:19; Start 11/09/19 at 18:30; Stop 11/15/19 at 09:25; Status DC Levetiracetam (Keppra) 500 mg BID PO Last administered on 11/17/19at 21:04; Start 11/09/19 at 21:00 Non-Formulary Medication 1 ea DAILY PO Last administered on 11/17/19at 09:44; Start 11/12/19 at 09:00 Insulin Human Lispro (HumaLOG) 8 units 1X ONCE SQ Last administered on 10/22 12/09at 12:32; Start 11/10/19 at 12:15; Stop 11/10/19 at 12:16; Status DC Propofol 20 ml @ As Directed STK-MED ONCE IV ; Start 11/12/19 at 07:48; Stop 11/12/19 at 07:48; Status DC Dexamethasone Sodium Phosphate (Decadron) 20 mg STK-MED ONCE .ROUTE ; Start 11/12/19 at 07:48; Stop 11/12/19 at 07:48; Status DC Lidocaine HCl (Lidocaine Pf 2% Vial) 5 ml STK-MED ONCE .ROUTE ; Start 11/12/19 at 07:48; Stop 11/12/19 at 07:48; Status DC Ondansetron HCl (Zofran) 4 mg STK-MED ONCE .ROUTE ; Start 11/12/19 at 07:48; Stop 11/12/19 at 07:48; Status DC Phenylephrine HCl (Tony-Synephrine Inj) 10 mg STK-MED ONCE .ROUTE ; Start 11/12/19 at 07:48; Stop 11/12/19 at 07:48; Status DC Propofol 50 ml @ As Directed STK-MED ONCE IV ; Start 11/12/19 at 07:48; Stop 11/12/19 at 07:48; Status DC Rocuronium Freeman (Zemuron) 50 mg STK-MED ONCE .ROUTE ; Start 11/12/19 at 07:48; Stop 11/12/19 at 07:48; Status DC Remifentanil HCl (Ultiva) 2 mg STK-MED ONCE IV ; Start 11/12/19 at 07:48; Stop 11/12/19 at 07:49; Status DC Sodium Chloride (SODIUM CHLORIDE 20ml) 20 ml STK-MED ONCE IJ ; Start 11/12/19 at 07:49; Stop 11/12/19 at 07:49; Status DC Multi-Ingred Cream/Lotion/Oil/ Oint (Artificial Tears Eye Ointment) 7 raza STK- MED ONCE .ROUTE ; Start 11/12/19 at 07:49; Stop 11/12/19 at 07:49; Status DC Bacitracin 20573 unit/Sodium Chloride 1,000 ml @ 1,000 mls/hr 1X ONCE IRR Last administered on 11/12/19at 11:26; Start 11/12/19 at 07:57; Stop 11/12/19 at 08:56; Status DC Sodium Chloride (SODIUM CHLORIDE 20ml) 20 ml STK-MED ONCE IJ ; Start 11/12/19 at 07:57; Stop 11/12/19 at 07:57; Status DC Gelatin (Gelfoam Size 100) 1 each STK-MED ONCE .ROUTE Last administered on 11/12/19 11:26; Start 11/12/19 at 07:59; Stop 11/12/19 at 07:59; Status DC Cellulose (Surgicel Hemostat 4x8) 1 each STK-MED ONCE .ROUTE Last administered on 11/12/19at 12:01; Start 11/12/19 at 07:59; Stop 11/12/19 at 08:00; Status DC Lidocaine/ Epinephrine (LIDOCAINE 1%-EPI 1:100,000 Multi-Dose) 20 ml STK-MED ONCE .ROUTE Last administered on 11/12/19 11:26; Start 11/12/19 at 07:59; Stop 11/12/19 at 08:00; Status DC Thrombin 20,000 unit STK-MED ONCE TP Last administered on 11/12/19 11:26; Start 11/12/19 at 08:00; Stop 11/12/19 at 08:00; Status DC Bacitracin (Bacitracin Zinc Oint Pkt) 1 pkt STK-MED ONCE TP ; Start 11/12/19 at 08:00; Stop 11/12/19 at 08:00; Status DC Propofol 100 ml @ As Directed STK-MED ONCE IV ; Start 11/12/19 at 08:02; Stop 11/12/19 at 08:02; Status DC Insulin Human Lispro (HumaLOG) 11 units 1X ONCE SQ Last administered on 11/12/19at 08:15; Start 11/12/19 at 08:15; Stop 11/12/19 at 08:16; Status DC Gadoterate Meglumine (Dotarem) 24.8 ml 1X ONCE IVP Last administered on 11/12/19at 08:15; Start 11/12/19 at 08:15; Stop 11/12/19 at 08:16; Status DC Insulin Human Regular 100 unit/ Sodium Chloride 101 ml @ 12.484 mls/ hr ONCE ONCE IV ; Start 11/12/19 at 08:15; Stop 11/12/19 at 16:20; Status DC Desflurane (Suprane) 90 ml STK-MED ONCE IH ; Start 11/12/19 at 08:11; Stop 11/12/19 at 08:11; Status DC Fentanyl Citrate (Fentanyl 2ml Vial) 100 mcg STK-MED ONCE .ROUTE ; Start 11/12/19 at 08:20; Stop 11/12/19 at 08:20; Status DC Midazolam HCl (Versed) 2 mg STK-MED ONCE .ROUTE ; Start 11/12/19 at 08:20; Stop 11/12/19 at 08:20; Status DC Rocuronium Freeman (Zemuron) 50 mg STK-MED ONCE .ROUTE ; Start 11/12/19 at 09:11; Stop 11/12/19 at 09:12; Status DC Mannitol (Mannitol) 12.5 g STK-MED ONCE .ROUTE ; Start 11/12/19 at 09:22; Stop 11/12/19 at 09:23; Status DC Propofol 100 ml @ As Directed STK-MED ONCE IV ; Start 11/12/19 at 09:22; Stop 11/12/19 at 09:23; Status DC Lidocaine HCl (Xylocaine-Mpf 1% 2ml Vial) 2 ml STK-MED ONCE .ROUTE ; Start 11/12/19 at 09:24; Stop 11/12/19 at 09:24; Status DC Cefazolin Sodium 3 gm/Dextrose 100 ml @ 200 mls/hr 1X PREOP ONCE IV Last administered on 11/12/19 10:53; Start 11/12/19 at 10:30; Stop 11/12/19 at 10:59; Status DC Gelatin (Gelfoam Size 12-7mm) 1 each STK-MED ONCE .ROUTE Last administered on 11/12/19 12:03; Start 11/12/19 at 11:59; Stop 11/12/19 at 12:01; Status DC Thrombin 20,000 unit STK-MED ONCE TP Last administered on 11/12/19 12:04; Start 11/12/19 at 12:00; Stop 11/12/19 at 12:01; Status DC Gelatin (Gelfoam Size 100) 1 each STK-MED ONCE .ROUTE Last administered on 11/12/19 12:25; Start 11/12/19 at 12:26; Stop 11/12/19 at 12:26; Status DC Gelatin (Gelfoam Size 12-7mm) 1 each STK-MED ONCE .ROUTE Last administered on 11/12/19 13:35; Start 11/12/19 at 13:32; Stop 11/12/19 at 13:33; Status DC Thrombin 20,000 unit STK-MED ONCE TP Last administered on 11/12/19 13:35; Start 11/12/19 at 13:32; Stop 11/12/19 at 13:33; Status DC Gelatin (Gelfoam Size 12-7mm) 1 each STK-MED ONCE .ROUTE Last administered on 11/12/19 13:55; Start 11/12/19 at 13:55; Stop 11/12/19 at 13:55; Status DC Gelatin (Gelfoam Size 12-7mm) 1 each STK-MED ONCE .ROUTE Last administered on 11/12/19at 13:59; Start 11/12/19 at 13:59; Stop 11/12/19 at 13:59; Status DC Labetalol HCl (Normodyne Iv Push) 5 mg PRN Q15MIN PRN IVP HYPERTENSION; Start 11/12/19 at 15:15 Nicardipine HCl 50 mg/Sodium Chloride 250 ml @ 25 mls/hr TITRATE PRN IV SBP 90-140; Start 11/12/19 at 15:15; Stop 11/15/19 at 08:16; Status DC Hydralazine HCl (Apresoline Inj) 5 mg PRN Q6HRS PRN IVP TO KEEP SBP<140mmHg; Start 11/12/19 at 15:15 Al Hydroxide/Mg Hydroxide (Mylanta Plus Xs) 30 ml PRN Q3HRS PRN PO HEARTBURN / GAS; Start 11/12/19 at 15:15 Calcium Carbonate/ Glycine (Tums) 500 mg PRN Q3HRS PRN PO INDIGESTION; Start 11/12/19 at 15:15 Diphenhydramine HCl (Benadryl) 25 mg PRN Q6HRS PRN PO ITCHING; Start 11/12/19 at 15:15 Diphenhydramine HCl (Benadryl) 25 mg PRN Q6HRS PRN IV ITCHING; Start 11/12/19 at 15:15 Sodium Chloride (Normal Saline Flush) 3 ml QSHIFT PRN IV AFTER MEDS AND BLOOD DRAWS; Start 11/12/19 at 15:15 Insulin Human Lispro (HumaLOG) 0-5 UNITS TIDWMEALS SQ Last administered on 11/17/19at 08:39; Start 11/12/19 at 17:00; Stop 11/17/19 at 08:54; Status DC Dextrose (Dextrose 50%-Water Syringe) 12.5 gm PRN Q15MIN PRN IV SEE COMMENTS; Start 11/12/19 at 15:15 Dextrose (Iv Dextrose 5%) 250 ml PRN Q15MIN PRN IV SEE COMMENTS; Start 11/12/19 at 15:15; Stop 11/18/19 at 08:17; Status DC Hydromorphone HCl (Dilaudid) 0.2 mg PRN Q1HR PRN IV MODERATE PAIN; Start 11/12/19 at 15:15 Insulin Human Lispro (HumaLOG VIAL for OP,RR ONLY) 0-10 units PRN Q1HR PRN SQ PER PROTOCOL Last administered on 11/12/19at 15:50; Start 11/12/19 at 16:00; Stop 11/12/19 at 19:54; Status DC Insulin Human Lispro (HumaLOG VIAL for OP,RR ONLY) 4 unit 1X ONCE SQ ; Start 11/12/19 at 16:45; Stop 11/12/19 at 16:46; Status DC Ferrous Sulfate (Iron Oral Solution) 300 mg QD PO Last administered on 11/17/19at 08:29; Start 11/13/19 at 10:00 Gadoterate Meglumine (Dotarem) 10 ml 1X ONCE IVP Last administered on 11/13/19at 15:00; Start 11/13/19 at 14:45; Stop 11/13/19 at 14:48; Status DC Gadoterate Meglumine (Dotarem) 15 ml 1X ONCE IVP Last administered on 11/13/19at 15:00; Start 11/13/19 at 14:45; Stop 11/13/19 at 14:48; Status DC Insulin Human Lispro (HumaLOG) 15 units TIDAC SQ Last administered on at 17:08; Start 11/15/19 at 08:15; Stop 11/16/19 at 08:53; Status DC Insulin Glargine (Lantus Syringe) 20 unit DAILY SQ Last administered on 11/15/19at 09:20; Start 11/15/19 at 09:00; Stop 11/16/19 at 08:53; Status DC Enoxaparin Sodium (Lovenox 40mg Syringe) 40 mg Q12H SQ Last administered on 11/15/19at 23:36; Start 11/15/19 at 10:00; Stop 11/16/19 at 07:50; Status DC Enoxaparin Sodium (Lovenox 40mg Syringe) 40 mg DAILY SQ Last administered on 11/17/19at 08:30; Start 11/16/19 at 09:00 Meropenem 1 gm/ Sodium Chloride 100 ml @ 200 mls/hr Q8HRS IV ; Start 11/16/19 at 14:00; Stop 11/16/19 at 12:31; Status DC Insulin Glargine (Lantus Syringe) 40 unit BID SQ Last administered on 11/17/19at 21:25; Start 11/16/19 at 09:00 Insulin Human Lispro (HumaLOG) 20 units TIDAC SQ Last administered on 11/18/19at 08:35; Start 11/16/19 at 11:30; Stop 11/18/19 at 09:19; Status DC Insulin Glargine (Lantus Syringe) 20 unit 1X ONCE SQ Last administered on 11/16/19at 09:48; Start 11/16/19 at 09:15; Stop 11/16/19 at 09:16; Status DC Fosfomycin Tromethamine (Monurol) 3 gm 1X ONCE PO Last administered on 11/16/19at 12:49; Start 11/16/19 at 12:30; Stop 11/16/19 at 12:33; Status DC Fosfomycin Tromethamine (Monurol) 3 gm 1X ONCE PO ; Start 11/18/19 at 09:00; Stop 11/18/19 at 09:01; Status DC Dexamethasone (Decadron) 4 mg QID PO Last administered on 11/17/19at 21:04; Start 11/17/19 at 13:00 Insulin Human Lispro (HumaLOG) 0-9 UNITS TIDWMEALS SQ Last administered on 11/17/19at 17:43; Start 11/17/19 at 12:00 Dextrose (Dextrose 50%-Water Syringe) 12.5 gm PRN Q15MIN PRN IV SEE COMMENTS; Start 11/17/19 at 09:00; Status UNV Dextrose (Iv Dextrose 5%) 250 ml PRN Q15MIN PRN IV SEE COMMENTS; Start 11/17/19 at 09:00 Metoprolol Succinate (Toprol Xl) 50 mg HS PO ; Start 11/18/19 at 21:00 Insulin Human Lispro (HumaLOG) 30 units TIDAC SQ ; Start 11/18/19 at 09:30 Active Scripts Active Enoxaparin Sodium 120 Mg/0.8 Ml Disp.syrin 120 Mg SQ Q12HR 28 Days Dexamethasone 4 Mg Tablet 4 Mg PO BID 14 Days Culturelle (Lactobacillus Rhamnosus Gg) 1 Each Cap.sprink 1 Cap PO BID 30 Days Amlodipine Besylate 5 Mg Tablet 5 Mg PO DAILY 30 Days Cefdinir 300 Mg Capsule 300 Mg PO BID 10 Days Reported Cymbalta (Duloxetine Hcl) 60 Mg Capsule. 1 Cap PO BID Lyrica (Pregabalin) 150 Mg Capsule 1 Cap PO BID Novolog (Insulin Aspart) 100 Unit/1 Ml Cartridge 10-45 Unit SQ QIDACHS Levemir (Insulin Detemir) 100 Unit/1 Ml Vial 30 Unit SQ HS Linzess (Linaclotide) 145 Mcg Capsule 145 Mcg PO PRN PRN Crestor (Rosuvastatin Calcium) 40 Mg Tablet 0.5 Tab PO DAILY Polyethylene Glycol 3350 2,500 Gm Powder 17 Gm PO PRN PRN Xanax (Alprazolam) 1 Mg Tablet 1 Tab PO TID Restasis (Cyclosporine) 1 Each Droperette 1 Drop EACHEYE BID Proair Hfa Inhaler (Albuterol Sulfate) 8.5 Gm Hfa.aer.ad 1 Puff INH PRN Q6HRS PRN Tramadol Hcl 50 Mg Tablet 1 Tab PO PRN Q8HRS PRN Ondansetron Hcl 4 Mg Tablet 2 Tab PO PRN Q8HRS PRN Nystatin 15 Gm Powder 1 Raza TP BID Lidocaine PATCH (Lidocaine) 1 Each Adh..patch 1 Each TP DAILY Fluticasone Propionate Nasal [place] (Fluticasone Propionate) 16 Gm [place].susp 2 [place] NS DAILY Percocet 5-325 Mg Tablet (Oxycodone/Acetaminophen) 1 Each Tablet 1-2 Tab PO Q4-6HRS PRN LAST DOSE AT NEXT DOSE Senna-Docusate Sodium Tablet (Sennosides/Docusate Sodium) 1 Each Tablet 1 Each PO BID LAST DOSE THIS AM NEXT DOSE TONIGHT Robaxin-750 (Methocarbamol) 750 Mg Tablet 1 Tab PO TID LAST DOSE AT 1400 (2PM) MAY HAVE THE NEXT DOSE AT 10 PM Protonix (Pantoprazole Sodium) 40 Mg Tablet.dr 40 Mg PO DAILY LST DOSE THIS AM NEXT DOSE TOMORROW AM Carafate (Sucralfate) 1 Gm Tablet 1 Tab PO TID Meds not given this hospital admission. May resume home medications as approved by Physician. MAY TAKE WHEN AVAILABLE Xarelto (Rivaroxaban) 15 Mg Tablet 15 Mg PO DAILY Meds not given this hospital admission. May resume home medications as approved by Physician. MAY RESUME WHEN AVAILABLE Metoprolol Succinate ( Xl ) (Metoprolol Succinate) 100 Mg Tab.er.24h 100 Mg PO HS LAST DOSE THIS AM NEXT DOSE TOMORROW AM Vitals/I & O Vital Sign - Last 24 Hours 11/17/19 11/17/19 11/17/19 11/17/19 09:48 11:00 11:22 12:13 Temp 98.3 98.3 Pulse 88 Resp 16 B/P (MAP) 106/56 (73) Pulse Ox 98 O2 Delivery Room Air Room Air Room Air Room Air 11/17/19 11/17/19 11/17/19 11/17/19 15:00 16:27 17:41 17:43 Temp 97.8 97.8 Pulse 87 Resp 18 B/P (MAP) 116/48 (70) Pulse Ox 95 O2 Delivery Room Air Room Air Room Air Room Air 11/17/19 11/17/19 11/17/19 11/17/19 19:00 19:06 19:45 21:04 Temp 99.4 99.4 Pulse 72 Resp 12 B/P (MAP) 104/56 (72) O2 Delivery Room Air Room Air Room Air Room Air 11/17/19 11/17/19 11/17/19 11/18/19 21:05 21:34 23:01 01:17 Temp 99.4 99.4 Pulse 72 68 Resp 12 B/P (MAP) 104/56 105/50 (68) Pulse Ox 96 O2 Delivery Room Air Room Air Room Air 11/18/19 11/18/19 11/18/19 11/18/19 01:47 02:13 05:21 05:51 Temp 98.6 98.6 Pulse 69 Resp 12 B/P (MAP) 97/55 (69) Pulse Ox 99 99 99 O2 Delivery Room Air Room Air Room Air Room Air 11/18/19 11/18/19 07:00 08:32 Temp 97.6 97.6 Pulse 72 Resp 18 16 B/P (MAP) 109/55 (73) Pulse Ox 96 O2 Delivery Room Air Room Air Intake and Output 11/17/19 11/17/19 11/18/19 15:00 23:00 07:00 Intake Total 300 ml 450 ml Output Total 900 ml 1500 ml Balance -900 ml 300 ml -1050 ml Nutrition Consultation Dietary Evaluation: Recommendations by RD: Dietary education by RD, Increase Calorie Intake, Protein supplementation Comments: REC ADA/cardiac diet ,glucerna tid Expected Outcomes/Goals: PO intake to meet >75% est needs- met at times, goal ongoing Interpretation of weight loss: >5% in 1 month Malnutrition Findings: Food and Nutrition Intake (Sev: <50% est energy req 5days Weight Status: Morbidly Obese TERMULO,RAFAEL Y MD Nov 18, 2019 09:47
[2019-11-18] MEDS: INSULIN GLARGINE SYRINGE. SQ SCH ×2 (09:49→20:56)
[2019-11-18] MEDS: NYSTATIN TOPICAL POWDER 15GM BOTTLE. TP SCH ×2 (09:49→20:56)
[2019-11-18 11:00] VITALS: BP 102/49
--- NOTE | 2019-11-18 11:10 | PDOC ---
Infectious Disease Note Subjective Subjective Hot flash Mild abdominal cramps Purewick removed. s/p straight cath Says vision is better Denies N/V/D/F/C/SOA ROS ROS per HPI Vital Sign Vital Signs Vital Signs Date Time Temp Pulse Resp B/P (MAP) Pulse Ox O2 Delivery O2 Flow Rate FiO2 11/18/19 10:16 16 Room Air 11/18/19 07:00 97.6 72 109/55 (73) 96 97.6 11/17/19 08:30 96.0 Physical Exam PHYSICAL EXAM GENERAL: Propped up in bed, alert, in NAD HEENT: Oral mucosa moist. No oropharyngeal lesion. Scalp incision well approximated w/ stables. no drainage or no surrounding redness NECK: Supple. LUNGS: Clear bilaterally HEART: S1, S2. No gallops or murmurs. ABDOMEN: Obese, soft, nontender, bowel sounds active. Ecchymosis present EXTREMITIES: Right lower extremity edema. No cyanosis. SKIN: Warm and dry. No rash CONTRACT ADMINISTRATION COORDINATOR: Alert and oriented. Right-sided weakness, unable to move arm or leg; able to distinguish cold sensation. [facility] clean Labs Lab Laboratory Tests Test 11/17/19 16:43 11/17/19 20:45 Glucose (Fingerstick) 251 mg/dL (70-99) 209 mg/dL (70-99) Micro 11/10. URINE CULTURE RES 1 Final Escherichia coli Greater than 100,000 colony forming units per mL Multi-Drug Resistant Organism Susceptibility profile is consistent with a probable ESBL. MICS are expressed in micrograms per mL Antibiotic RSLT#1 Amikacin S<=2 Amoxicillin/Clavulanic Acid R>=32 Ampicillin R>=32 Ampicillin/Sulbactam R>=32 Cefazolin R>=64 Cefepime R>=64 Cefotaxime R>=64 Ceftazidime S =4 Ceftriaxone R>=64 Cefuroxime R>=64 Ciprofloxacin R>=4 Gentamicin S<=1 Imipenem S<=1 Levofloxacin R>=8 Meropenem S<=0.25 Nitrofurantoin S<=16 Piperacillin/Tazobactam I =64 Tetracycline S<=1 Tigecycline S<=0.5 Tobramycin S<=1 Trimethoprim/Sulfa S<=20 11/01/19 Blood Culture - Final, Complete NO GROWTH AFTER 5 DAYS Objective Assessment ESBL positive Escherichia coli urinary tract infection, 11/10. 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 Cognitive impairment. Staring spells. On Keppra. Chronic myelogenous leukemia diagnosed 11/05, on dasatinib post-op, Dr. Yousif following Abdominal hemorrhage attributed to anticoagulation, now stable. Diabetes mellitus 2. History of pulmonary embolism. Generalized debility. Chronic back pain and sciatica, right leg. Plan Plan of Care Fosfomycin (1st dose was 11/16; 2nd 11/18) On steriods and Keppra f/u path report Contact isolation Feels much better after 2 BMs - less pressure Attending Co-Sign Attending Co-Sign The patient was seen and interviewed as well as examined at the bedside. The chart was reviewed. The case was discussed. Agree with the plan of care. KRISHNA GRIFFIN APRN Nov 18, 2019 11:10 CHI NOBLE MD Nov 18, 2019 16:17
--- NOTE | 2019-11-18 13:26 | PDOC ---
PROGRESS NOTES Subjective Subjective Denies acute changes. Reports having couple BMs. Objective Objective Vital Signs Date Time Temp Pulse Resp B/P (MAP) Pulse Ox O2 Delivery O2 Flow Rate FiO2 11/18/19 11:00 97.9 87 18 102/49 (66) 96 Room Air 97.9 11/17/19 08:30 96.0 Intake and Output 11/18/19 07:00 Intake Total 750 ml Output Total 2400 ml Balance -1650 ml Intake Oral 750 ml Output Urine Total 2400 ml # Voids 1 # Bowel Movements 1 Physical Exam Physical Exam AAOx4, NAD, speech stable, strength stable compared to yesterday, sensation reports slight improved to LT RUE and RLE compared to yesterday, incision c/d/i with edd Assessment Assessment Problems Medical Problems: (1) Abdominal hemorrhage Status: Acute (2) Generalized weakness Status: Acute (3) Lactic acidosis Status: Acute (4) Leukocytosis Status: Acute Plan Plan of Care -continue steroid - when d/c from hospital, would gradually taper steroid to off over four weeks -rex per neurology recs -continue therapies/slated for inpt rehab Comment Review of Relevant I have reviewed the following items mustapha (where applicable) has been applied. Labs Laboratory Tests Test 11/16/19 16:45 11/16/19 20:48 11/17/19 05:10 11/17/19 07:21 Glucose (Fingerstick) 223 mg/dL (70-99) 236 mg/dL (70-99) 216 mg/dL (70-99) White Blood Count 18.5 x10^3/uL (4.0-11.0) Red Blood Count 2.87 x10^6/uL (3.50-5.40) Hemoglobin 8.5 g/dL (12.0-15.5) Hematocrit 26.7 % (36.0-47.0) Mean Corpuscular Volume 93 fL (79-100) Mean Corpuscular Hemoglobin 30 pg (25-35) Mean Corpuscular Hemoglobin Concent 32 g/dL (31-37) Red Cell Distribution Width 18.8 % (11.5-14.5) Platelet Count 348 x10^3/uL (140-400) Neutrophils (%) (Auto) 93 % (31-73) Lymphocytes (%) (Auto) 5 % (24-48) Monocytes (%) (Auto) 2 % (0-9) Eosinophils (%) (Auto) 0 % (0-3) Basophils (%) (Auto) 0 % (0-3) Neutrophils # (Auto) 17.2 x10^3/uL (1.8-7.7) Lymphocytes # (Auto) 0.9 x10^3/uL (1.0-4.8) Monocytes # (Auto) 0.4 x10^3/uL (0.0-1.1) Eosinophils # (Auto) 0.0 x10^3/uL (0.0-0.7) Basophils # (Auto) 0.0 x10^3/uL (0.0-0.2) Sodium Level 135 mmol/L (136-145) Potassium Level 4.0 mmol/L (3.5-5.1) Chloride Level 101 mmol/L (98-107) Carbon Dioxide Level 31 mmol/L (21-32) Anion Gap 3 (6-14) Blood Urea Nitrogen 27 mg/dL (7-20) Creatinine 0.6 mg/dL (0.6-1.0) Estimated GFR (Cockcroft-Gault) 107.2 Glucose Level 237 mg/dL (70-99) Calcium Level 8.4 mg/dL (8.5-10.1) Test 11/17/19 10:20 11/17/19 16:43 11/17/19 20:45 11/18/19 07:14 Glucose (Fingerstick) 315 mg/dL (70-99) 251 mg/dL (70-99) 209 mg/dL (70-99) 198 mg/dL (70-99) Test 11/18/19 10:59 Glucose (Fingerstick) 277 mg/dL (70-99) Laboratory Tests Test 11/17/19 16:43 11/17/19 20:45 11/18/19 07:14 11/18/19 10:59 Glucose (Fingerstick) 251 mg/dL (70-99) 209 mg/dL (70-99) 198 mg/dL (70-99) 277 mg/dL (70-99) Microbiology 11/10/19 Urine Culture - Final, Complete 11/10/19 Urine Culture Result 1 (СВЕТЛАНА) - Final, Complete 11/10/19 Antimicrobic Susceptibility - Final, Complete 11/01/19 Blood Culture - Final, Complete NO GROWTH AFTER 5 DAYS Medications Current Medications Sodium Chloride 500 ml @ 500 mls/hr 1X ONCE IV Last administered on 11/01/19at 13:00; Start 11/01/19 at 13:00; Stop 11/01/19 at 13:59; Status DC Ondansetron HCl (Zofran) 4 mg 1X ONCE IV Last administered on 11/01/19at 13:26; Start 11/01/19 at 13:00; Stop 11/01/19 at 13:13; Status DC Hydromorphone HCl (Dilaudid) 0.5 mg 1X STAT IVP Last administered on 11/01/19at 13:26; Start 11/01/19 at 12:59; Stop 11/01/19 at 13:13; Status DC Iohexol (Omnipaque 300 Mg/ml) 75 ml 1X ONCE IV Last administered on 11/01/19at 14:08; Start 11/01/19 at 13:45; Stop 11/01/19 at 13:46; Status DC Info (CONTRAST GIVEN -- Rx MONITORING) 1 each PRN DAILY PRN MC SEE COMMENTS; Start 11/01/19 at 14:00; Stop 11/03/19 at 13:59; Status DC Hydromorphone HCl (Dilaudid) 0.5 mg 1X STAT IVP Last administered on 11/01at 16:53; Start 11/01/19 at 16:21; Stop 11/01/19 at 16:23; Status DC Sodium Chloride 1,000 ml @ 1,000 mls/hr 1X ONCE IV Last administered on 11/01/19at 16:30; Start 11/01/19 at 16:30; Stop 11/01/19 at 17:29; Status DC Sodium Chloride 500 ml @ 500 mls/hr 1X ONCE IV Last administered on 11/01/19at 16:30; Start 11/01/19 at 16:30; Stop 11/01/19 at 17:29; Status DC Albuterol Sulfate (Ventolin Neb Soln) 2.5 mg PRN Q6HRS PRN INH SHORTNESS OF BREATH; Start 11/01/19 at 16:30; Status Cancel Alprazolam (Xanax) 0.25 mg PRN TID PRN PO anxiety; Start 11/01/19 at 16:30; Stop 11/01/19 at 17:11; Status DC Amlodipine Besylate (Norvasc) 5 mg DAILY PO Last administered on 11/16/19 08:47; Start 11/02/19 at 09:00; Stop 11/18/19 at 09:18; Status DC Cyclosporine (Restasis) 1 drop BID OU Last administered on 11/18/19 09:37; Start 11/01/19 at 21:00 Fluticasone Propionate (Flonase) 2 spray DAILY NS Last administered on 11/18/19 09:37; Start 11/02/19 at 09:00 Lactobacillus Rhamnosus (Culturelle) 1 cap BID PO Last administered on 11/09/19 08:28; Start 11/01/19 at 21:00; Stop 11/09/19 at 16:57; Status DC Lidocaine (Lidoderm) 1 patch DAILY TP ; Start 11/02/19 at 09:00; Stop 11/01/19 at 20:34; Status DC Metoprolol Succinate (Toprol Xl) 100 mg HS PO Last administered on 11/17/19 21:05; Start 11/01/19 at 21:00; Stop 11/18/19 at 09:18; Status DC Nystatin (Nystop) 1 raza BID TP Last administered on 11/18/19 09:49; Start 11/01/19 at 21:00 Pantoprazole Sodium (Protonix) 40 mg DAILYAC PO Last administered on 11/09/19 08:28; Start 11/02/19 at 07:30; Stop 11/09/19 at 16:54; Status DC Senna/Docusate Sodium (Senna Plus) 1 tab BID PO Last administered on 11/18/19 09:37; Start 11/01/19 at 21:00 Sucralfate (Carafate) 1 gm TIDAC PO Last administered on 11/18/19at 11:08; Start 11/01/19 at 17:30 Tramadol HCl (Ultram) 50 mg PRN Q8HRS PRN PO PAIN; Start 11/01/19 at 16:30; Stop 11/01/19 at 19:43; Status DC Insulin Glargine (Lantus Syringe) 30 unit QHS SQ Last administered on 11/06/19 21:16; Start 11/01/19 at 21:00; Stop 11/07/19 at 15:56; Status DC Ondansetron HCl (Zofran Odt) 8 mg PRN Q8HRS PRN PO NAUSEA/VOMITING Last administered on 11/17/19 12:12; Start 11/01/19 at 17:15 Polyethylene Glycol (miraLAX PACKET) 17 gm PRN DAILY PRN PO CONSTIPATION, 1ST CHOICE Last administered on 11/17/19 08:30; Start 11/01/19 at 17:11 Atorvastatin Calcium (Lipitor) 80 mg QHS PO Last administered on 11/17/19 21:05; Start 11/01/19 at 21:00 Insulin Human Lispro (HumaLOG) 0-9 UNITS TIDAC SQ Last administered on 11/07/19at 12:20; Start 11/01/19 at 16:30; Stop 11/07/19 at 15:56; Status DC Dextrose (Dextrose 50%-Water Syringe) 12.5 gm PRN Q15MIN PRN IV SEE COMMENTS; Start 11/01/19 at 16:30; Stop 11/12/19 at 15:36; Status DC Ondansetron HCl (Zofran) 4 mg PRN Q8HRS PRN IV NAUSEA/VOMITING; Start 11/01/19 at 16:30; Stop 11/02/19 at 16:29; Status DC Alprazolam (Xanax) 0.25 mg PRN TID PRN PO anxiety Last administered on 11/18/19 08:31; Start 11/01/19 at 17:11 Miscellaneous (Lidoderm Patch Removal) 1 ea QHS MC ; Start 11/01/19 at 21:00; Stop 11/01/19 at 20:34; Status DC Ceftriaxone Sodium (Rocephin) 1 gm QHS IVP Last administered on 11/15/19at 21:26; Start 11/01/19 at 18:45; Stop 11/16/19 at 08:52; Status DC Tramadol HCl (Ultram) 50 mg PRN Q8HRS PRN PO MILD PAIN 1-3 Last administered on 11/15/19at 17:56; Start 11/01/19 at 19:45 Hydromorphone HCl (Dilaudid) 1 mg PRN Q4HRS PRN IV SEVERE PAIN Last administered on 11/18/19at 09:36; Start 11/01/19 at 20:15 Lidocaine (Lidoderm) 1 patch QHS TP Last administered on 11/17/19at 21:03; Start 11/01/19 at 21:00 Miscellaneous (Lidoderm Patch Removal) 1 ea DAILY MC Last administered on 11/18/19at 09:00; Start 11/02/19 at 09:00 Albumin Human 500 ml @ 125 mls/hr 1X ONCE IV ; Start 11/02/19 at 02:00; Stop 11/02/19 at 05:59; Status Cancel Acetaminophen (Tylenol) 650 mg 1X PRN PRN PO PRE-TRANSFUSION; Start 11/02/19 at 06:45; Stop 11/03/19 at 14:16; Status DC Diphenhydramine HCl (Benadryl Oral Elixir) 12.5 mg 1X PRN PRN PO PRE- TRANSFUSION; Start 11/02/19 at 06:45; Stop 11/03/19 at 14:16; Status DC Diphenhydramine HCl (Benadryl) 25 mg PRN 1X PRN PO PRE-TRANSFUSION; Start 11/02/19 at 06:45; Stop 11/03/19 at 14:16; Status DC Lactulose (LACTULOSE 300ML for RECTAL) 200 gm Q6HRS MS Last administered on 11/02/19at 18:00; Start 11/02/19 at 18:00; Stop 11/04/19 at 14:44; Status DC Sodium Chloride 1,000 ml @ 100 mls/hr Q10H IV Last administered on 11/13/19at 15:30; Start 11/02/19 at 12:00; Stop 11/14/19 at 11:28; Status DC Lactulose (Lactulose) 20 gm PRN DAILY PRN PO CONSTIPATION, 2ND CHOICE; Start 11/04/19 at 14:45 Oxycodone HCl (Roxicodone) 5 mg PRN Q6HRS PRN PO MODERATE TO SEVERE PAIN Last administered on 11/18/19at 08:32; Start 11/04/19 at 14:45 Lidocaine HCl (Buffered Lidocaine 1%) 3 ml STK-MED ONCE .ROUTE ; Start 11/05/19 at 08:13; Stop 11/05/19 at 08:13; Status DC Lidocaine HCl (Buffered Lidocaine 1%) 3 ml STK-MED ONCE .ROUTE ; Start 11/05/19 at 08:14; Stop 11/05/19 at 08:14; Status DC Midazolam HCl (Versed) 2 mg STK-MED ONCE .ROUTE ; Start 11/05/19 at 08:40; Stop 11/05/19 at 08:40; Status DC Fentanyl Citrate (Fentanyl 2ml Vial) 100 mcg STK-MED ONCE .ROUTE ; Start 11/05/19 at 08:40; Stop 11/05/19 at 08:41; Status DC Lidocaine HCl (Buffered Lidocaine 1%) 3 ml 1X ONCE IJ Last administered on 11/05/19at 08:45; Start 11/05/19 at 08:45; Stop 11/05/19 at 08:50; Status DC Midazolam HCl (Versed) 2 mg 1X ONCE IV Last administered on 11/05/19at 08:45; Start 11/05/19 at 08:45; Stop 11/05/19 at 08:50; Status DC Fentanyl Citrate (Fentanyl 2ml Vial) 100 mcg 1X ONCE IV Last administered on 11/05/19at 08:45; Start 11/05/19 at 08:45; Stop 11/05/19 at 08:50; Status DC Dexamethasone Sodium Phosphate (Decadron) 4 mg Q6HRS IVP Last administered on 11/17/19at 06:03; Start 11/06/19 at 09:00; Stop 11/17/19 at 08:53; Status DC Insulin Glargine (Lantus Syringe) 40 unit QHS SQ Last administered on 9at 21:00; Start 11/07/19 at 21:00; Stop 11/16/19 at 08:53; Status DC Insulin Human Lispro (HumaLOG) 10 units TIDAC SQ Last administered on 11/14/19at 17:31; Start 11/07/19 at 16:30; Stop 11/15/19 at 08:16; Status DC Insulin Human Lispro (HumaLOG) 0-9 UNITS TIDWMEALS SQ Last administered on 11/11/19at 17:13; Start 11/07/19 at 17:00; Stop 11/12/19 at 15:37; Status DC Insulin Human Lispro (HumaLOG) 19 units 1X ONCE SQ Last administered on 11/09/19at 12:41; Start 11/09/19 at 12:15; Stop 11/09/19 at 12:16; Status DC Insulin Human Lispro (HumaLOG) 5 units 1X ONCE SQ Last administered on 11/09/19at 13:52; Start 11/09/19 at 13:30; Stop 11/09/19 at 13:31; Status DC Non-Formulary Medication 1 ea DAILY PO ; Start 11/09/19 at 16:30; Status Cancel Ondansetron HCl (Zofran) 4 mg PRN Q6HRS PRN IV NAUSEA/VOMITING; Start 11/12/19 at 07:00; Stop 11/12/19 at 19:56; Status DC Fentanyl Citrate (Fentanyl 2ml Vial) 25 mcg PRN Q5MIN PRN IV MILD PAIN 1-3; Start 11/12/19 at 07:00; Stop 11/12/19 at 19:56; Status DC Fentanyl Citrate (Fentanyl 2ml Vial) 50 mcg PRN Q5MIN PRN IV MODERATE TO SEVERE PAIN; Start 11/12/19 at 07:00; Stop 11/12/19 at 19:56; Status DC Morphine Sulfate (Morphine Sulfate) 1 mg PRN Q10MIN PRN IV SEVERE PAIN 7-10; Start 11/12/19 at 07:00; Stop 11/09/19 at 17:30; Status DC Ringer's Solution 1,000 ml @ 30 mls/hr Q24H IV Last administered on 11/12/19at 10:00; Start 11/12/19 at 07:00; Stop 11/12/19 at 18:59; Status DC Lidocaine HCl (Xylocaine-Mpf 1% 2ml Vial) 2 ml PRN 1X PRN ID PRIOR TO IV START; Start 11/12/19 at 07:00; Stop 11/12/19 at 19:56; Status DC Hydromorphone HCl (Dilaudid) 0.5 mg PRN Q10MIN PRN IV SEV PAIN, Second choice; Start 11/12/19 at 07:00; Stop 11/12/19 at 19:56; Status DC Prochlorperazine Edisylate (Compazine) 5 mg PACU PRN PRN IV NAUSEA, MRX1; Start 11/12/19 at 07:00; Stop 11/12/19 at 19:56; Status DC Pantoprazole Sodium (Protonix) 40 mg DAILYAC PO Last administered on 11/14/19at 08:19; Start 11/09/19 at 18:30; Stop 11/15/19 at 09:25; Status DC Levetiracetam (Keppra) 500 mg BID PO Last administered on 11/18/19at 09:37; Start 11/09/19 at 21:00 Non-Formulary Medication 1 ea DAILY PO Last administered on 11/18/19at 09:58; Start 11/12/19 at 09:00 Insulin Human Lispro (HumaLOG) 8 units 1X ONCE SQ Last administered on 11/10/19at 12:32; Start 11/10/19 at 12:15; Stop 11/10/19 at 12:16; Status DC Propofol 20 ml @ As Directed STK-MED ONCE IV ; Start 11/12/19 at 07:48; Stop 11/12/19 at 07:48; Status DC Dexamethasone Sodium Phosphate (Decadron) 20 mg STK-MED ONCE .ROUTE ; Start 11/12/19 at 07:48; Stop 11/12/19 at 07:48; Status DC Lidocaine HCl (Lidocaine Pf 2% Vial) 5 ml STK-MED ONCE .ROUTE ; Start 11/12/19 at 07:48; Stop 11/12/19 at 07:48; Status DC Ondansetron HCl (Zofran) 4 mg STK-MED ONCE .ROUTE ; Start 11/12/19 at 07:48; Stop 11/12/19 at 07:48; Status DC Phenylephrine HCl (Tony-Synephrine Inj) 10 mg STK-MED ONCE .ROUTE ; Start 11/12/19 at 07:48; Stop 11/12/19 at 07:48; Status DC Propofol 50 ml @ As Directed STK-MED ONCE IV ; Start 11/12/19 at 07:48; Stop 11/12/19 at 07:48; Status DC Rocuronium [place] (Zemuron) 50 mg STK-MED ONCE .ROUTE ; Start 11/12/19 at 07:48; Stop 11/12/19 at 07:48; Status DC Remifentanil HCl (Ultiva) 2 mg STK-MED ONCE IV ; Start 11/12/19 at 07:48; Stop 11/12/19 at 07:49; Status DC Sodium Chloride (SODIUM CHLORIDE 20ml) 20 ml STK-MED ONCE IJ ; Start 11/12/19 at 07:49; Stop 11/12/19 at 07:49; Status DC Multi-Ingred Cream/Lotion/Oil/ Oint (Artificial Tears Eye Ointment) 7 raza STK- MED ONCE .ROUTE ; Start 11/12/19 at 07:49; Stop 11/12/19 at 07:49; Status DC Bacitracin 03306 unit/Sodium Chloride 1,000 ml @ 1,000 mls/hr 1X ONCE IRR Last administered on 11/12/19at 11:26; Start 11/12/19 at 07:57; Stop 11/12/19 at 08:56; Status DC Sodium Chloride (SODIUM CHLORIDE 20ml) 20 ml STK-MED ONCE IJ ; Start 11/12/19 at 07:57; Stop 11/12/19 at 07:57; Status DC Gelatin (Gelfoam Size 100) 1 each STK-MED ONCE .ROUTE Last administered on 11/12/19 11:26; Start 11/12/19 at 07:59; Stop 11/12/19 at 07:59; Status DC Cellulose (Surgicel Hemostat 4x8) 1 each STK-MED ONCE .ROUTE Last administered on 11/12/19at 12:01; Start 11/12/19 at 07:59; Stop 11/12/19 at 08:00; Status DC Lidocaine/ Epinephrine (LIDOCAINE 1%-EPI 1:100,000 Multi-Dose) 20 ml STK-MED ONCE .ROUTE Last administered on 11/12/19 11:26; Start 11/12/19 at 07:59; Stop 11/12/19 at 08:00; Status DC Thrombin 20,000 unit STK-MED ONCE TP Last administered on 11/12/19 11:26; Start 11/12/19 at 08:00; Stop 11/12/19 at 08:00; Status DC Bacitracin (Bacitracin Zinc Oint Pkt) 1 pkt STK-MED ONCE TP ; Start 11/12/19 at 08:00; Stop 11/12/19 at 08:00; Status DC Propofol 100 ml @ As Directed STK-MED ONCE IV ; Start 11/12/19 at 08:02; Stop 11/12/19 at 08:02; Status DC Insulin Human Lispro (HumaLOG) 11 units 1X ONCE SQ Last administered on 11/12/19at 08:15; Start 11/12/19 at 08:15; Stop 11/12/19 at 08:16; Status DC Gadoterate Meglumine (Dotarem) 24.8 ml 1X ONCE IVP Last administered on 11/12/19at 08:15; Start 11/12/19 at 08:15; Stop 11/12/19 at 08:16; Status DC Insulin Human Regular 100 unit/ Sodium Chloride 101 ml @ 12.484 mls/ hr ONCE ONCE IV ; Start 11/12/19 at 08:15; Stop 11/12/19 at 16:20; Status DC Desflurane (Suprane) 90 ml STK-MED ONCE IH ; Start 11/12/19 at 08:11; Stop 11/12/19 at 08:11; Status DC Fentanyl Citrate (Fentanyl 2ml Vial) 100 mcg STK-MED ONCE .ROUTE ; Start 11/12/19 at 08:20; Stop 11/12/19 at 08:20; Status DC Midazolam HCl (Versed) 2 mg STK-MED ONCE .ROUTE ; Start 11/12/19 at 08:20; Stop 11/12/19 at 08:20; Status DC Rocuronium [place] (Zemuron) 50 mg STK-MED ONCE .ROUTE ; Start 11/12/19 at 09:11; Stop 11/12/19 at 09:12; Status DC Mannitol (Mannitol) 12.5 g STK-MED ONCE .ROUTE ; Start 11/12/19 at 09:22; Stop 11/12/19 at 09:23; Status DC Propofol 100 ml @ As Directed STK-MED ONCE IV ; Start 11/12/19 at 09:22; Stop 11/12/19 at 09:23; Status DC Lidocaine HCl (Xylocaine-Mpf 1% 2ml Vial) 2 ml STK-MED ONCE .ROUTE ; Start 11/12/19 at 09:24; Stop 11/12/19 at 09:24; Status DC Cefazolin Sodium 3 gm/Dextrose 100 ml @ 200 mls/hr 1X PREOP ONCE IV Last administered on 11/12/19 10:53; Start 11/12/19 at 10:30; Stop 11/12/19 at 10:59; Status DC Gelatin (Gelfoam Size 12-7mm) 1 each STK-MED ONCE .ROUTE Last administered on 11/12/19 12:03; Start 11/12/19 at 11:59; Stop 11/12/19 at 12:01; Status DC Thrombin 20,000 unit STK-MED ONCE TP Last administered on 11/12/19 12:04; Start 11/12/19 at 12:00; Stop 11/12/19 at 12:01; Status DC Gelatin (Gelfoam Size 100) 1 each STK-MED ONCE .ROUTE Last administered on 11/12/19 12:25; Start 11/12/19 at 12:26; Stop 11/12/19 at 12:26; Status DC Gelatin (Gelfoam Size 12-7mm) 1 each STK-MED ONCE .ROUTE Last administered on 11/12/19 13:35; Start 11/12/19 at 13:32; Stop 11/12/19 at 13:33; Status DC Thrombin 20,000 unit STK-MED ONCE TP Last administered on 11/12/19 13:35; Start 11/12/19 at 13:32; Stop 11/12/19 at 13:33; Status DC Gelatin (Gelfoam Size 12-7mm) 1 each STK-MED ONCE .ROUTE Last administered on 11/12/19 13:55; Start 11/12/19 at 13:55; Stop 11/12/19 at 13:55; Status DC Gelatin (Gelfoam Size 12-7mm) 1 each STK-MED ONCE .ROUTE Last administered on 11/12/19 13:59; Start 11/12/19 at 13:59; Stop 11/12/19 at 13:59; Status DC Labetalol HCl (Normodyne Iv Push) 5 mg PRN Q15MIN PRN IVP HYPERTENSION; Start 11/12/19 at 15:15 Nicardipine HCl 50 mg/Sodium Chloride 250 ml @ 25 mls/hr TITRATE PRN IV SBP 90-140; Start 11/12/19 at 15:15; Stop 11/15/19 at 08:16; Status DC Hydralazine HCl (Apresoline Inj) 5 mg PRN Q6HRS PRN IVP TO KEEP SBP<140mmHg; Start 11/12/19 at 15:15 Al Hydroxide/Mg Hydroxide (Mylanta Plus Xs) 30 ml PRN Q3HRS PRN PO HEARTBURN / GAS; Start 11/12/19 at 15:15 Calcium Carbonate/ Glycine (Tums) 500 mg PRN Q3HRS PRN PO INDIGESTION; Start 11/12/19 at 15:15 Diphenhydramine HCl (Benadryl) 25 mg PRN Q6HRS PRN PO ITCHING; Start 11/12/19 at 15:15 Diphenhydramine HCl (Benadryl) 25 mg PRN Q6HRS PRN IV ITCHING; Start 11/12/19 at 15:15 Sodium Chloride (Normal Saline Flush) 3 ml QSHIFT PRN IV AFTER MEDS AND BLOOD DRAWS; Start 11/12/19 at 15:15 Insulin Human Lispro (HumaLOG) 0-5 UNITS TIDWMEALS SQ Last administered on 11/17/19at 08:39; Start 11/12/19 at 17:00; Stop 11/17/19 at 08:54; Status DC Dextrose (Dextrose 50%-Water Syringe) 12.5 gm PRN Q15MIN PRN IV SEE COMMENTS; Start 11/12/19 at 15:15 Dextrose (Iv Dextrose 5%) 250 ml PRN Q15MIN PRN IV SEE COMMENTS; Start 11/12/19 at 15:15; Stop 11/18/19 at 08:17; Status DC Hydromorphone HCl (Dilaudid) 0.2 mg PRN Q1HR PRN IV MODERATE PAIN; Start 11/12/19 at 15:15 Insulin Human Lispro (HumaLOG VIAL for OP,RR ONLY) 0-10 units PRN Q1HR PRN SQ PER PROTOCOL Last administered on 11/12/19at 15:50; Start 11/12/19 at 16:00; Stop 11/12/19 at 19:54; Status DC Insulin Human Lispro (HumaLOG VIAL for OP,RR ONLY) 4 unit 1X ONCE SQ ; Start 11/12/19 at 16:45; Stop 11/12/19 at 16:46; Status DC Ferrous Sulfate (Iron Oral Solution) 300 mg QD PO Last administered on 11/18/19 09:36; Start 11/13/19 at 10:00 Gadoterate Meglumine (Dotarem) 10 ml 1X ONCE IVP Last administered on 11/13/19at 15:00; Start 11/13/19 at 14:45; Stop 11/13/19 at 14:48; Status DC Gadoterate Meglumine (Dotarem) 15 ml 1X ONCE IVP Last administered on 1 01/14/19at 15:00; Start 11/13/19 at 14:45; Stop 11/13/19 at 14:48; Status DC Insulin Human Lispro (HumaLOG) 15 units TIDAC SQ Last administered on 11/15/19 17:08; Start 11/15/19 at 08:15; Stop 11/16/19 at 08:53; Status DC Insulin Glargine (Lantus Syringe) 20 unit DAILY SQ Last administered on 11/15/19 09:20; Start 11/15/19 at 09:00; Stop 11/16/19 at 08:53; Status DC Enoxaparin Sodium (Lovenox 40mg Syringe) 40 mg Q12H SQ Last administered on 11/15/19at 23:36; Start 11/15/19 at 10:00; Stop 11/16/19 at 07:50; Status DC Enoxaparin Sodium (Lovenox 40mg Syringe) 40 mg DAILY SQ Last administered on 11/18/19 09:36; Start 11/16/19 at 09:00 Meropenem 1 gm/ Sodium Chloride 100 ml @ 200 mls/hr Q8HRS IV ; Start 11/16/19 at 14:00; Stop 11/16/19 at 12:31; Status DC Insulin Glargine (Lantus Syringe) 40 unit BID SQ Last administered on 11/18/19 09:49; Start 11/16/19 at 09:00 Insulin Human Lispro (HumaLOG) 20 units TIDAC SQ Last administered on 11/18/19 08:35; Start 11/16/19 at 11:30; Stop 11/18/19 at 09:19; Status DC Insulin Glargine (Lantus Syringe) 20 unit 1X ONCE SQ Last administered on 11/16/19at 09:48; Start 11/16/19 at 09:15; Stop 11/16/19 at 09:16; Status DC Fosfomycin Tromethamine (Monurol) 3 gm 1X ONCE PO Last administered on 11/16/19at 12:49; Start 11/16/19 at 12:30; Stop 11/16/19 at 12:33; Status DC Fosfomycin Tromethamine (Monurol) 3 gm 1X ONCE PO Last administered on 11/18/19at 09:57; Start 11/18/19 at 09:00; Stop 11/18/19 at 09:01; Status DC Dexamethasone (Decadron) 4 mg QID PO Last administered on 11/18/19at 12:36; Start 11/17/19 at 13:00 Insulin Human Lispro (HumaLOG) 0-9 UNITS TIDWMEALS SQ Last administered on 11/18/19at 11:30; Start 11/17/19 at 12:00 Dextrose (Dextrose 50%-Water Syringe) 12.5 gm PRN Q15MIN PRN IV SEE COMMENTS; Start 11/17/19 at 09:00; Status UNV Dextrose (Iv Dextrose 5%) 250 ml PRN Q15MIN PRN IV SEE COMMENTS; Start 11/17/19 at 09:00 Metoprolol Succinate (Toprol Xl) 50 mg HS PO ; Start 11/18/19 at 21:00 Insulin Human Lispro (HumaLOG) 30 units TIDAC SQ Last administered on 11/18/19at 11:29; Start 11/18/19 at 09:30 Active Scripts Active Enoxaparin Sodium 120 Mg/0.8 Ml Disp.syrin 120 Mg SQ Q12HR 28 Days Dexamethasone 4 Mg Tablet 4 Mg PO BID 14 Days Culturelle (Lactobacillus Rhamnosus Gg) 1 Each Cap.sprink 1 Cap PO BID 30 Days Amlodipine Besylate 5 Mg Tablet 5 Mg PO DAILY 30 Days Cefdinir 300 Mg Capsule 300 Mg PO BID 10 Days Reported Cymbalta (Duloxetine Hcl) 60 Mg Capsule.dr 1 Cap PO BID Lyrica (Pregabalin) 150 Mg Capsule 1 Cap PO BID Novolog (Insulin Aspart) 100 Unit/1 Ml Cartridge 10-45 Unit SQ QIDACHS Levemir (Insulin Detemir) 100 Unit/1 Ml Vial 30 Unit SQ HS Linzess (Linaclotide) 145 Mcg Capsule 145 Mcg PO PRN PRN Crestor (Rosuvastatin Calcium) 40 Mg Tablet 0.5 Tab PO DAILY Polyethylene Glycol 3350 2,500 Gm Powder 17 Gm PO PRN PRN Xanax (Alprazolam) 1 Mg Tablet 1 Tab PO TID Restasis (Cyclosporine) 1 Each Droperette 1 Drop EACHEYE BID Proair Hfa Inhaler (Albuterol Sulfate) 8.5 Gm Hfa.aer.ad 1 Puff INH PRN Q6HRS PRN Tramadol Hcl 50 Mg Tablet 1 Tab PO PRN Q8HRS PRN Ondansetron Hcl 4 Mg Tablet 2 Tab PO PRN Q8HRS PRN Nystatin 15 Gm Powder 1 Raza TP BID Lidocaine PATCH (Lidocaine) 1 Each Adh..patch 1 Each TP DAILY Fluticasone Propionate Nasal [place] (Fluticasone Propionate) 16 Gm [place].susp 2 [place] NS DAILY Percocet 5-325 Mg Tablet (Oxycodone/Acetaminophen) 1 Each Tablet 1-2 Tab PO Q4-6HRS PRN LAST DOSE AT NEXT DOSE Senna-Docusate Sodium Tablet (Sennosides/Docusate Sodium) 1 Each Tablet 1 Each PO BID LAST DOSE THIS AM NEXT DOSE TONIGHT Robaxin-750 (Methocarbamol) 750 Mg Tablet 1 Tab PO TID LAST DOSE AT 1400 (2PM) MAY HAVE THE NEXT DOSE AT 10 PM Protonix (Pantoprazole Sodium) 40 Mg Tablet.dr 40 Mg PO DAILY LST DOSE THIS AM NEXT DOSE TOMORROW AM Carafate (Sucralfate) 1 Gm Tablet 1 Tab PO TID Meds not given this hospital admission. May resume home medications as approved by Physician. MAY TAKE WHEN AVAILABLE Xarelto (Rivaroxaban) 15 Mg Tablet 15 Mg PO DAILY Meds not given this hospital admission. May resume home medications as approved by Physician. MAY RESUME WHEN AVAILABLE Metoprolol Succinate ( Xl ) (Metoprolol Succinate) 100 Mg Tab.er.24h 100 Mg PO HS LAST DOSE THIS AM NEXT DOSE TOMORROW AM Vitals/I & O Vital Sign - Last 24 Hours 11/17/19 11/17/19 11/17/19 11/17/19 15:00 16:27 17:41 17:43 Temp 97.8 97.8 Pulse 87 Resp 18 B/P (MAP) 116/48 (70) Pulse Ox 95 O2 Delivery Room Air Room Air Room Air Room Air 11/17/19 11/17/19 11/17/19 11/17/19 19:00 19:06 19:45 21:04 Temp 99.4 99.4 Pulse 72 Resp 12 B/P (MAP) 104/56 (72) O2 Delivery Room Air Room Air Room Air Room Air 11/17/19 11/17/19 11/17/19 11/18/19 21:05 21:34 23:01 01:17 Temp 99.4 99.4 Pulse 72 68 Resp 12 B/P (MAP) 104/56 105/50 (68) Pulse Ox 96 O2 Delivery Room Air Room Air Room Air 11/18/19 11/18/19 11/18/19 11/18/19 01:47 02:13 05:21 05:51 Temp 98.6 98.6 Pulse 69 Resp 12 B/P (MAP) 97/55 (69) Pulse Ox 99 99 99 O2 Delivery Room Air Room Air Room Air Room Air 11/18/19 11/18/19 11/18/19 11/18/19 07:00 08:00 08:32 09:36 Temp 97.6 97.6 Pulse 72 Resp 18 16 16 B/P (MAP) 109/55 (73) Pulse Ox 96 O2 Delivery Room Air Room Air Room Air Room Air 11/18/19 11/18/19 11/18/19 09:50 10:16 11:00 Temp 97.9 97.9 Pulse 87 Resp 16 16 18 B/P (MAP) 102/49 (66) Pulse Ox 96 O2 Delivery Room Air Room Air Room Air Intake and Output 11/17/19 11/17/19 11/18/19 15:00 23:00 07:00 Intake Total 300 ml 450 ml Output Total 900 ml 1500 ml Balance -900 ml 300 ml -1050 ml Nutrition Consultation Dietary Evaluation: Recommendations by RD: Dietary education by RD, Increase Calorie Intake, Protein supplementation Comments: REC ADA/cardiac diet ,glucerna tid Expected Outcomes/Goals: PO intake to meet >75% est needs- met at times, goal ongoing Interpretation of weight loss: >5% in 1 month Malnutrition Findings: Food and Nutrition Intake (Sev: <50% est energy req 5days Weight Status: Morbidly Obese BINH WELCH MD Nov 18, 2019 13:26
[2019-11-18 15:00] VITALS: BP 108/55
[2019-11-18 19:00] VITALS: BP 93/46
[2019-11-18] MEDS: ATORVASTATIN CALCIUM 40 MG TABLET. PO SCH (20:47)
[2019-11-18] MEDS: METOPROLOL SUCC 24HR ER 50 MG TAB.ER.24H. PO SCH (20:48)
[2019-11-18] MEDS: LIDOCAINE (700MG/PATCH) PATCH. TP SCH (20:49)
[2019-11-18 23:00] VITALS: BP 93/53
[2019-11-19] MEDS: HYDROmorphone 2 MG/ML VIAL IV PRN ×6 (01:39→22:57)
[2019-11-19 02:59] VITALS: BP 110/59
[2019-11-19] MEDS: oxyCODONE IR 5 MG TABLET PO PRN ×3 (03:56→20:55)
[2019-11-19 07:00] VITALS: BP 104/51
--- NOTE | 2019-11-19 08:18 | PDOC ---
Infectious Disease Note Subjective: Subjective Pt says doing ok still has some nausea no vomiting no dysuria Denies N/V/D/F/C/SOA Vital Signs: Vital Signs Vital Signs Date Time Temp Pulse Resp B/P (MAP) Pulse Ox O2 Delivery O2 Flow Rate FiO2 11/19/19 06:23 100 Room Air 2.0 11/19/19 02:59 97.9 80 19 110/59 (76) 97.9 Physical Exam: PHYSICAL EXAM GENERAL: Propped up in bed, alert, in NAD HEENT: Oral mucosa moist. No oropharyngeal lesion. Scalp incision well approximated w/ stables. no drainage or no surrounding redness NECK: Supple. LUNGS: Clear bilaterally HEART: S1, S2. No gallops or murmurs. ABDOMEN: Obese, soft, nontender, bowel sounds active. Ecchymosis present EXTREMITIES: Right lower extremity edema. No cyanosis. SKIN: Warm and dry. 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 Right-sided weakness, unable to move arm or leg; able to distinguish cold sensation. RIJ clean Medications: Inpatient Meds: Current Medications Medications (Trade) Dose Ordered Sig/Nikki Start Time Stop Time Status Last Admin Dose Admin Acetaminophen (Tylenol) 650 mg 1X PRN PRN 11/02/19 06:45 11/03/19 14:16 DC Al Hydroxide/Mg Hydroxide (Mylanta Plus Xs) 30 ml PRN Q3HRS PRN 11/12/19 15:15 Albumin Human 500 ml @ 125 mls/hr 1X ONCE 11/02/19 02:00 11/02/19 05:59 Cancel Albuterol Sulfate (Ventolin Neb Soln) 2.5 mg PRN Q6HRS PRN 11/01/19 16:30 Cancel Alprazolam (Xanax) 0.25 mg PRN TID PRN 11/01/19 17:11 11/18/19 20:52 0.25 MG Amlodipine Besylate (Norvasc) 5 mg DAILY 11/02/19 09:00 11/18/19 09:18 DC 11/16/19 08:47 5 MG Atorvastatin Calcium (Lipitor) 80 mg QHS 11/01/19 21:00 11/18/19 20:47 80 MG Bacitracin (Bacitracin Zinc Oint Pkt) 1 pkt STK-MED ONCE 11/12/19 08:00 11/12/19 08:00 DC Bacitracin 31097 unit/Sodium Chloride 1,000 ml @ 1,000 mls/hr 1X ONCE 11/12/19 07:57 11/12/19 08:56 DC 11/12/19 11:26 Calcium Carbonate/ Glycine (Tums) 500 mg PRN Q3HRS PRN 11/12/19 15:15 Cefazolin Sodium 3 gm/Dextrose 100 ml @ 200 mls/hr 1X PREOP ONCE 11/12/19 10:30 11/12/19 10:59 DC 11/12/19 10:53 200 MLS/HR Ceftriaxone Sodium (Rocephin) 1 gm QHS 11/01/19 18:45 11/16/19 08:52 DC 11/15/19 21:26 1 GM Cellulose (Surgicel Hemostat 4x8) 1 each STK-MED ONCE 11/12/19 07:59 11/12/19 08:00 DC 11/12/19 12:01 1 EACH Cyclosporine (Restasis) 1 drop BID 11/01/19 21:00 11/18/19 20:46 1 DROP Desflurane (Suprane) 90 ml STK-MED ONCE 11/12/19 08:11 11/12/19 08:11 DC Dexamethasone (Decadron) 4 mg QID 11/17/19 13:00 11/18/19 20:48 4 MG Dexamethasone Sodium Phosphate (Decadron) 20 mg STK-MED ONCE 11/12/19 07:48 11/12/19 07:48 DC Dextrose (Dextrose 50%-Water Syringe) 12.5 gm PRN Q15MIN PRN 11/17/19 09:00 UNV Dextrose (Iv Dextrose 5%) 250 ml PRN Q15MIN PRN 11/17/19 09:00 Diphenhydramine HCl (Benadryl Oral Elixir) 12.5 mg 1X PRN PRN 11/02/19 06:45 11/03/19 14:16 DC Diphenhydramine HCl (Benadryl) 25 mg PRN Q6HRS PRN 11/12/19 15:15 Enoxaparin Sodium (Lovenox 40mg Syringe) 40 mg DAILY 11/16/19 09:00 11/18/19 09:36 40 MG Fentanyl Citrate (Fentanyl 2ml Vial) 100 mcg STK-MED ONCE 11/12/19 08:20 11/12/19 08:20 DC Ferrous Sulfate (Iron Oral Solution) 300 mg QD 11/13/19 10:00 11/18/19 09:36 300 MG Fluticasone Propionate (Flonase) 2 spray DAILY 11/02/19 09:00 11/18/19 09:37 2 SPRAY Fosfomycin Tromethamine (Monurol) 3 gm 1X ONCE 11/18/19 09:00 11/18/19 09:01 DC 11/18/19 09:57 3 GM Gadoterate Meglumine (Dotarem) 15 ml 1X ONCE 11/13/19 14:45 11/13/19 14:48 DC 11/13/19 15:00 15 ML Gelatin (Gelfoam Size 12-7mm) 1 each STK-MED ONCE 11/12/19 13:59 11/12/19 13:59 DC 11/12/19 13:59 1 EACH Gelatin (Gelfoam Size 100) 1 each STK-MED ONCE 11/12/19 12:26 11/12/19 12:26 DC 11/12/19 12:25 1 EACH Hydralazine HCl (Apresoline Inj) 5 mg PRN Q6HRS PRN 11/12/19 15:15 Hydromorphone HCl (Dilaudid) 0.2 mg PRN Q1HR PRN 11/12/19 15:15 11/19/19 03:58 0.2 MG Info (CONTRAST GIVEN -- Rx MONITORING) 1 each PRN DAILY PRN 11/01/19 14:00 11/03/19 13:59 DC Insulin Glargine (Lantus Syringe) 20 unit 1X ONCE 11/16/19 09:15 11/16/19 09:16 DC 11/16/19 09:48 20 UNIT Insulin Human Lispro (HumaLOG VIAL for OP,RR ONLY) 4 unit 1X ONCE 11/12/19 16:45 11/12/19 16:46 DC Insulin Human Lispro (HumaLOG) 30 units TIDAC 11/18/19 09:30 11/18/19 11:29 30 UNITS Insulin Human Regular 100 unit/ Sodium Chloride 101 ml @ 12.484 mls/ hr ONCE ONCE 11/12/19 08:15 11/12/19 16:20 DC Iohexol (Omnipaque 300 Mg/ml) 75 ml 1X ONCE 11/01/19 13:45 11/01/19 13:46 DC 11/01/19 14:08 75 ML Labetalol HCl (Normodyne Iv Push) 5 mg PRN Q15MIN PRN 11/12/19 15:15 Lactobacillus Rhamnosus (Culturelle) 1 cap BID 11/01/19 21:00 11/09/19 16:57 DC 11/09/19 08:28 1 CAP Lactulose (LACTULOSE 300ML for RECTAL) 200 gm Q6HRS 11/02/19 18:00 11/04/19 14:44 DC 11/02/19 18:00 200 GM Lactulose (Lactulose) 20 gm PRN DAILY PRN 11/04/19 14:45 Levetiracetam (Keppra) 500 mg BID 11/09/19 21:00 11/18/19 20:47 500 MG Lidocaine (Lidoderm) 1 patch QHS 11/01/19 21:00 11/18/19 20:49 1 PATCH Lidocaine HCl (Buffered Lidocaine 1%) 3 ml 1X ONCE 11/05/19 08:45 11/05/19 08:50 DC 11/05/19 08:45 12 ML Lidocaine HCl (Lidocaine Pf 2% Vial) 5 ml STK-MED ONCE 11/12/19 07:48 11/12/19 07:48 DC Lidocaine HCl (Xylocaine-Mpf 1% 2ml Vial) 2 ml STK-MED ONCE 11/12/19 09:24 11/12/19 09:24 DC Lidocaine/ Epinephrine (LIDOCAINE 1%-EPI 1:100,000 Multi-Dose) 20 ml STK-MED ONCE 11/12/19 07:59 11/12/19 08:00 DC 11/12/19 11:26 10 ML Mannitol (Mannitol) 12.5 g STK-MED ONCE 11/12/19 09:22 11/12/19 09:23 DC Meropenem 1 gm/ Sodium Chloride 100 ml @ 200 mls/hr Q8HRS 11/16/19 14:00 11/16/19 12:31 DC Metoprolol Succinate (Toprol Xl) 50 mg HS 11/18/19 21:00 Midazolam HCl (Versed) 2 mg STK-MED ONCE 11/12/19 08:20 11/12/19 08:20 DC Miscellaneous (Lidoderm Patch Removal) 1 ea DAILY 11/02/19 09:00 11/18/19 09:00 1 EA Morphine Sulfate (Morphine Sulfate) 1 mg PRN Q10MIN PRN 11/12/19 07:00 11/09/19 17:30 DC Multi-Ingred Cream/Lotion/Oil/ Oint (Artificial Tears Eye Ointment) 7 lauren STK-MED ONCE 11/12/19 07:49 11/12/19 07:49 DC Nicardipine HCl 50 mg/Sodium Chloride 250 ml @ 25 mls/hr TITRATE PRN 11/12/19 15:15 11/15/19 08:16 DC Non-Formulary Medication 1 ea DAILY 11/12/19 09:00 11/18/19 09:58 1 EA Nystatin (Nystop) 1 lauren BID 11/01/19 21:00 11/18/19 20:56 1 LAUREN Ondansetron HCl (Zofran Odt) 8 mg PRN Q8HRS PRN 11/01/19 17:15 11/17/19 12:12 8 MG Ondansetron HCl (Zofran) 4 mg STK-MED ONCE 11/12/19 07:48 11/12/19 07:48 DC Oxycodone HCl (Roxicodone) 5 mg PRN Q6HRS PRN 11/04/19 14:45 11/19/19 03:56 5 MG Pantoprazole Sodium (Protonix) 40 mg DAILYAC 11/09/19 18:30 11/15/19 09:25 DC 11/14/19 08:19 40 MG Phenylephrine HCl (Tony-Synephrine Inj) 10 mg STK-MED ONCE 11/12/19 07:48 11/12/19 07:48 DC Polyethylene Glycol (miraLAX PACKET) 17 gm PRN DAILY PRN 11/01/19 17:11 11/17/19 08:30 17 GM Prochlorperazine Edisylate (Compazine) 5 mg PACU PRN PRN 11/12/19 07:00 11/12/19 19:56 DC Propofol 100 ml @ As Directed STK-MED ONCE 11/12/19 09:22 11/12/19 09:23 DC Remifentanil HCl (Ultiva) 2 mg STK-MED ONCE 11/12/19 07:48 11/12/19 07:49 DC Ringer's Solution 1,000 ml @ 30 mls/hr Q24H 11/12/19 07:00 11/12/19 18:59 DC 11/12/19 10:00 30 MLS/HR Rocuronium [place] (Zemuron) 50 mg STK-MED ONCE 11/12/19 09:11 11/12/19 09:12 DC Senna/Docusate Sodium (Senna Plus) 1 tab BID 11/01/19 21:00 11/18/19 09:37 1 TAB Sodium Chloride (Normal Saline Flush) 3 ml QSHIFT PRN 11/12/19 15:15 Sodium Chloride (SODIUM CHLORIDE 20ml) 20 ml STK-MED ONCE 11/12/19 07:57 11/12/19 07:57 DC Sucralfate (Carafate) 1 gm TIDAC 11/01/19 17:30 11/18/19 16:50 1 GM Thrombin 20,000 unit STK-MED ONCE 11/12/19 13:32 11/12/19 13:33 DC 11/12/19 13:35 20,000 UNIT Tramadol HCl (Ultram) 50 mg PRN Q8HRS PRN 11/01/19 19:45 11/15/19 17:56 50 MG Labs: Lab Laboratory Tests Test 11/18/19 10:59 11/18/19 16:42 11/18/19 20:29 11/19/19 07:13 Glucose (Fingerstick) 277 mg/dL (70-99) 102 mg/dL (70-99) 269 mg/dL (70-99) 204 mg/dL (70-99) Objective: Assessment: ESBL E Coli UTI on antiseizure meds frontoparietal mass CML Plan: Plan of Care Fosfomycin (1st dose was 11/16; 2nd 11/18) On steriods and Keppra f/u path report Contact isolation FATOU SIMMONS MD Nov 19, 2019 08:17
[2019-11-19] MEDS: ALPRAZolam 0.25 MG TABLET PO PRN ×3 (08:53→22:58)
[2019-11-19] MEDS: levETIRAcetam 500 MG TABLET PO SCH ×2 (08:53→20:55)
[2019-11-19] MEDS: SUCRALFATE 1 GM TABLET. PO SCH ×3 (08:53→17:13)
[2019-11-19] MEDS: cycloSPORINE 0.05% OPHTH DROPERETTE. OU SCH ×2 (08:54→21:00)
[2019-11-19] MEDS: FLUTICASONE 50MCG/NASAL SPRAY 16GM BOTTLE. NS SCH (08:54)
[2019-11-19] MEDS: SENNOSIDES/DOCUSATE 8.6/50MG TABLET. PO SCH ×2 (08:54→21:00)
[2019-11-19] MEDS: DEXAMETHASONE 4 MG TABLET PO SCH ×4 (08:54→20:55)
[2019-11-19] MEDS: FERROUS SULFATE ORAL 300 MG/5 ML SOLUTION. PO SCH (08:55)
[2019-11-19] MEDS: ENOXAPARIN 40 MG/0.4 ML SYRINGE. SQ SCH (08:55)
[2019-11-19] MEDS: NYSTATIN TOPICAL POWDER 15GM BOTTLE. TP SCH ×2 (08:56→20:55)
[2019-11-19] MEDS: PATCH REMOVAL. MC SCH (08:56)
[2019-11-19] MEDS: INSULIN LISPRO 300 UNITS/3 ML VIAL. SQ SCH ×6 (09:07→17:17)
[2019-11-19] MEDS: INSULIN GLARGINE SYRINGE. SQ SCH ×2 (09:08→23:07)
--- NOTE | 2019-11-19 09:37 | PDOC ---
SUBJECTIVE Subjective S: Had debulking of parietal mass on 11/12, with resultant right-sided weakness still, stable MRI on 11/13, wbc improving O: Physical exam: Gen.: obese, resting in bed, NAD, R sided weakness, incision at scalp healing Lungs: Breathing comfortably Psychiatric: Pleasant mood and affect Labs: Ferritin 82, iron sat 12%, TIBC low White blood cell 18, hemoglobin 8.5, platelets 348 BM showed CML in CP Path Pending from craniotomy brain mri 11/12 pre op: homogeneously enhancing left parietal convexity extra- axial mass measuring 3.8 x 3.9 x 3.3 cm with associated dural tail. The mass abuts the superior sagittal sinus without definite involvement onthis examination. Associated vasogenic edema with minimal mass effect and midline shift to the right by approximately 8 mm, stable. There is persistent mass effect on the atria of the left lateral ventricle without hydrocephalus. head ct 11/12 post op:Left lateral vertex level hematoma which may represent subdural or epidural hematoma in this postoperative patient. Left vertex intraparenchymal hematomas also are seen. Parafalcine hemorrhage which extends along the left tentorium also noted. Postoperative findings are present with the left vertex level mass no longer being delineated. Left maxillary sinusitis. brain MRI 11/13 MPRESSION: Post left parietal craniotomy with resection of the extra-axial mass from the left parietal region. Residual enhancing mass is seen superiorly and medially within the left region which measures 2.8 cm in size. Intraparenchymal and extra-axial hemorrhage is seen within the left parietal region as discussed above. Edema is seen involving the left parietal lobe. The hemorrhage and edema does not appear significantly changed since the patient's CT scan from yesterday. 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 await path post op, per NSG, apprec Dr Clark's help h/o clotting: only on ppx lovenox at the moment Dispo: to rehab, we'll f/u as outpt prn Thank you kindly and please do not hesitate to call with questions. OBJECTIVE Vital Signs Vital Signs Date Time Temp Pulse Resp B/P (MAP) Pulse Ox O2 Delivery O2 Flow Rate FiO2 11/19/19 07:00 98.2 70 16 104/51 (68) 99 Room Air 98.2 11/19/19 06:23 100 Room Air 2.0 11/19/19 05:53 100 Room Air 2.0 11/19/19 04:56 Room Air 11/19/19 04:28 100 Room Air 2.0 11/19/19 03:58 100 Room Air 2.0 11/19/19 03:56 Nasal Cannula 2.0 11/19/19 02:59 97.9 80 19 110/59 (76) 100 Room Air 97.9 11/19/19 02:09 99 Room Air 2.0 11/19/19 01:39 99 Room Air 2.0 11/18/19 23:00 97.9 91 19 93/53 (66) 99 Nasal Cannula 2.0 97.9 11/18/19 22:18 Room Air 11/18/19 21:48 Room Air 11/18/19 21:46 Room Air 11/18/19 20:48 92 93/46 11/18/19 20:46 Room Air 11/18/19 19:14 Room Air 11/18/19 19:00 98.2 92 20 93/46 (62) 95 Nasal Cannula 98.2 11/18/19 18:18 16 Room Air 11/18/19 18:01 16 Room Air 11/18/19 16:04 16 Room Air 11/18/19 15:00 98.1 94 16 108/55 (72) 96 Room Air 98.1 11/18/19 14:34 16 Room Air 11/18/19 14:31 16 Room Air 11/18/19 14:04 16 Room Air 11/18/19 11:00 97.9 87 18 102/49 (66) 96 Room Air 97.9 11/18/19 10:16 16 Room Air 11/18/19 09:50 16 Room Air 11/18/19 09:36 16 Room Air COMMENT Lab Laboratory Tests Test 11/18/19 10:59 11/18/19 16:42 11/18/19 20:29 11/19/19 07:13 Glucose (Fingerstick) 277 mg/dL (70-99) 102 mg/dL (70-99) 269 mg/dL (70-99) 204 mg/dL (70-99) Nutrition Consultation Dietary Evaluation: Recommendations by RD: Dietary education by RD, Increase Calorie Intake, Protein supplementation Comments: REC ADA/cardiac diet ,glucerna tid Expected Outcomes/Goals: PO intake to meet >75% est needs- met at times, goal ongoing Interpretation of weight loss: >5% in 1 month Malnutrition Findings: Food and Nutrition Intake (Sev: <50% est energy req 5days Weight Status: Morbidly Obese ENEDELIA HUYNH MD Nov 19, 2019 09:37
[2019-11-19 11:00] VITALS: BP 107/48
--- NOTE | 2019-11-19 11:07 | NUR ---
LORRAINE following. Discussed with RN. PETERS awaiting acceptance decision from [facility]. RN notified. Addendum: 11/19/19 at 1301 by BLAS PETERS LORRAINE faxed updated therapy notes to [facility].
--- NOTE | 2019-11-19 12:08 | SNU/HH DC ---
DISCHARGE ORDERS DISCHARGE INFORMATION: FINAL DIAGNOSIS Problems Medical Problems: (1) Abdominal hemorrhage Status: Acute (2) Generalized weakness Status: Acute (3) Lactic acidosis Status: Acute (4) Leukocytosis Status: Acute CONDITION ON DISCHARGE: Stable CODE STATUS: Code Status: Full [facility]: SNF STAY <30 DAYS: No HOSPICE: HOSPICE: No HOSPICE EVAL & TREAT: No LTAC: ADMIT TO LTAC: Yes POST DISCHARGE ORDERS: ACTIVITY ORDERS: Activity as tolerated WEIGHT BEARING STATUS: As tolerated BATHING ORDERS: Shower-keep dressing dry, No Tub Bath until see DIET AFTER DISCHARGE: Cardiac WOUND/INCISION CARE: Ice to area for comfort, Keep wound/cast CDI CHECKS AFTER DISCHARGE: CHECKS AFTER DISCHARGE: Check blood sugar, ac/hs, Check your Temp as needed, Weigh Yourself Daily TREATMENT/EQUIPMENT ORDERS: ADAPTIVE EQUIPMENT NEEDED: Front wheeled walker Physical Therapy For: Evalulation/Treatment Occupational Therapy For: Evaluation/Treatment Speech Language Pathology For: Evaluation/Treatment DISCHARGE MEDICATIONS: Home Meds Active Scripts Enoxaparin Sodium (ENOXAPARIN SODIUM) 120 Mg/0.8 Ml Disp.syrin, 120 MG SQ Q12HR for dvt for 28 Days, #48 DIS.SYR Prov:LUANNE OWUSU MD 10/24/19 Dexamethasone (DEXAMETHASONE) 4 Mg Tablet, 4 MG PO BID for headache for 14 Days, #28 TAB Prov:LUANNE OWUSU MD 10/24/19 Lactobacillus Rhamnosus Gg (CULTURELLE) 1 Each Cap.sprink, 1 CAP PO BID for supplement for 30 Days, #60 CAP Prov:LUANNE OWUSU MD 10/24/19 Amlodipine Besylate (AMLODIPINE BESYLATE) 5 Mg Tablet, 5 MG PO DAILY for blood pressure for 30 Days, #30 TAB Prov:LUANNE OWUSU MD 10/24/19 Cefdinir (CEFDINIR) 300 Mg Capsule, 300 MG PO BID for infection for 10 Days, #20 CAP Prov:LUANNE OWUSU MD 10/24/19 Reported Medications Duloxetine Hcl (CYMBALTA) 60 Mg Capsule.dr, 1 CAP PO BID for Depression, #90 CAP 3 Refills 10/19/19 Pregabalin (LYRICA) 150 Mg Capsule, 1 CAP PO BID for PAIN, #60 CAP 5 Refills 10/19/19 Insulin Aspart (NOVOLOG) 100 Unit/1 Ml Cartridge, 10-45 UNIT SQ QIDACHS for blood sugar, EACH 10/19/19 Insulin Detemir (LEVEMIR) 100 Unit/1 Ml Vial, 30 UNIT SQ HS for Blood Sugar, VIAL 10/19/19 Linaclotide (LINZESS) 145 Mcg Capsule, 145 MCG PO PRN PRN for CONSTIPATION, CAP 10/19/19 Rosuvastatin Calcium (CRESTOR) 40 Mg Tablet, 0.5 TAB PO DAILY for HLD, #30 TAB 5 Refills 10/19/19 Polyethylene Glycol 3350 (POLYETHYLENE GLYCOL 3350) 2,500 Gm Powder, 17 GM PO PRN PRN for CONSTIPATION, #255 GM 0 Refills 10/19/19 Alprazolam (XANAX) 1 Mg Tablet, 1 TAB PO TID for Anxiety, #90 TAB 10/19/19 Cyclosporine (RESTASIS) 1 Each Droperette, 1 DROP EACHEYE BID, #60 VIAL 3 Refills 11/26/17 Albuterol Sulfate (PROAIR HFA INHALER) 8.5 Gm Hfa.aer.ad, 1 PUFF INH PRN Q6HRS PRN for SHORTNESS OF BREATH, INHALER 0 Refills 11/25/17 Tramadol Hcl (TRAMADOL HCL) 50 Mg Tablet, 1 TAB PO PRN Q8HRS PRN for PAIN, #30 TAB 11/25/17 Ondansetron Hcl (ONDANSETRON HCL) 4 Mg Tablet, 2 TAB PO PRN Q8HRS PRN for NAUSEA/VOMITING, #10 TAB 1 Refill 11/25/17 Nystatin (NYSTATIN) 15 Gm Powder, 1 BRET TP BID, #1 BOTTLE 11/25/17 Lidocaine (Lidocaine PATCH ) 1 Each Adh..patch, 1 EACH TP DAILY, PATCH 11/25/17 Fluticasone Propionate (FLUTICASONE PROPIONATE NASAL SPRAY) 16 Gm [place].susp, 2 SPRAY NS DAILY, #1 INHALER 11 Refills 11/25/17 Oxycodone/Apap 5-325 (PERCOCET 5-325 MG TABLET ) 1 Each Tablet, 1-2 TAB PO Q4- 6HRS PRN for PAIN, #90 TAB 0 Refills LAST DOSE AT NEXT DOSE 12/20/17 Sennosides/Docusate Sodium (SENNA-DOCUSATE SODIUM TABLET) 1 Each Tablet, 1 EACH PO BID for CONSTIPATION, #60 TAB 0 Refills LAST DOSE THIS AM NEXT DOSE TONIGHT 11/09/17 Methocarbamol (ROBAXIN-750) 750 Mg Tablet, 1 TAB PO TID for MUSCLE SPASMS, #90 TAB 0 Refills LAST DOSE AT 1400 (2PM) MAY HAVE THE NEXT DOSE AT 10 PM 11/09/17 Pantoprazole Sodium (PROTONIX ) 40 Mg Tablet.dr, 40 MG PO DAILY for STOMACH, TAB LST DOSE THIS AM NEXT DOSE TOMORROW AM 05/05/17 Sucralfate (CARAFATE) 1 Gm Tablet, 1 TAB PO TID, #120 TAB 3 Refills Meds not given this hospital admission. May resume home medications as approved by Physician. MAY TAKE WHEN AVAILABLE 05/05/17 Rivaroxaban (XARELTO) 15 Mg Tablet, 15 MG PO DAILY for BLOOD THINNER, TAB Meds not given this hospital admission. May resume home medications as approved by Physician. MAY RESUME WHEN AVAILABLE 05/05/17 Metoprolol Succinate (METOPROLOL SUCCINATE ( XL )) 100 Mg Tab.er.24h, 100 MG PO HS for FOR HYPERTENSION, #30 TAB 0 Refills LAST DOSE THIS AM NEXT DOSE TOMORROW AM 05/05/17 VANGIE MAC III DO Nov 19, 2019 12:08
--- NOTE | 2019-11-19 12:16 | PDOC ---
PROGRESS NOTES Subjective Subjective Denies acute changes. Objective Objective Vital Signs Date Time Temp Pulse Resp B/P (MAP) Pulse Ox O2 Delivery O2 Flow Rate FiO2 11/19/19 12:00 98 Room Air 11/19/19 11:00 97.6 95 18 107/48 (67) 97.6 11/19/19 06:23 2.0 Intake and Output 11/19/19 07:00 # Voids 3 # Bowel Movements 2 Physical Exam Physical Exam AAOx4, NAD, speech slightly less slurred compared to yesterday, strength stable compared to yesterday in RUE, RLE slightly improved strength today, sensation reports stable LT RUE and RLE compared to yesterday but improved overall, incision c/d/i with edd Assessment Assessment Problems Medical Problems: (1) Abdominal hemorrhage Status: Acute (2) Generalized weakness Status: Acute (3) Lactic acidosis Status: Acute (4) Leukocytosis Status: Acute Plan Plan of Care -final path report still pending -upon d/c from hospital, gradually taper steroid/decadron to off over four weeks -rex per neurology recs -will need f/u with NS, staple removal approx next 1week-10days [phone] -continue aggressive therapies/reportedly slated for inpt rehab today Comment Review of Relevant I have reviewed the following items mustapha (where applicable) has been applied. Labs Laboratory Tests Test 11/17/19 16:43 11/17/19 20:45 11/18/19 07:14 11/18/19 10:59 Glucose (Fingerstick) 251 mg/dL (70-99) 209 mg/dL (70-99) 198 mg/dL (70-99) 277 mg/dL (70-99) Test 11/18/19 16:42 11/18/19 20:29 11/19/19 07:13 11/19/19 11:44 Glucose (Fingerstick) 102 mg/dL (70-99) 269 mg/dL (70-99) 204 mg/dL (70-99) 183 mg/dL (70-99) Laboratory Tests Test 11/18/19 16:42 11/18/19 20:29 11/19/19 07:13 11/19/19 11:44 Glucose (Fingerstick) 102 mg/dL (70-99) 269 mg/dL (70-99) 204 mg/dL (70-99) 183 mg/dL (70-99) Microbiology 11/10/19 Urine Culture - Final, Complete 11/10/19 Urine Culture Result 1 (СВЕТЛАНА) - Final, Complete 11/10/19 Antimicrobic Susceptibility - Final, Complete 11/01/19 Blood Culture - Final, Complete NO GROWTH AFTER 5 DAYS Medications Current Medications Sodium Chloride 500 ml @ 500 mls/hr 1X ONCE IV Last administered on 11/01/19at 13:00; Start 11/01/19 at 13:00; Stop 11/01/19 at 13:59; Status DC Ondansetron HCl (Zofran) 4 mg 1X ONCE IV Last administered on 11/01/19at 13:26; Start 11/01/19 at 13:00; Stop 11/01/19 at 13:13; Status DC Hydromorphone HCl (Dilaudid) 0.5 mg 1X STAT IVP Last administered on 11/01/19at 13:26; Start 11/01/19 at 12:59; Stop 11/01/19 at 13:13; Status DC Iohexol (Omnipaque 300 Mg/ml) 75 ml 1X ONCE IV Last administered on 11/01/19at 14:08; Start 11/01/19 at 13:45; Stop 11/01/19 at 13:46; Status DC Info (CONTRAST GIVEN -- Rx MONITORING) 1 each PRN DAILY PRN MC SEE COMMENTS; Start 11/01/19 at 14:00; Stop 11/03/19 at 13:59; Status DC Hydromorphone HCl (Dilaudid) 0.5 mg 1X STAT IVP Last administered on 11/01/19at 16:53; Start 11/01/19 at 16:21; Stop 11/01/19 at 16:23; Status DC Sodium Chloride 1,000 ml @ 1,000 mls/hr 1X ONCE IV Last administered on 11/01/19at 16:30; Start 11/01/19 at 16:30; Stop 11/01/19 at 17:29; Status DC Sodium Chloride 500 ml @ 500 mls/hr 1X ONCE IV Last administered on 11/01/19at 16:30; Start 11/01/19 at 16:30; Stop 11/01/19 at 17:29; Status DC Albuterol Sulfate (Ventolin Neb Soln) 2.5 mg PRN Q6HRS PRN INH SHORTNESS OF BREATH; Start 11/01/19 at 16:30; Status Cancel Alprazolam (Xanax) 0.25 mg PRN TID PRN PO anxiety; Start 11/01/19 at 16:30; Stop 11/01/19 at 17:11; Status DC Amlodipine Besylate (Norvasc) 5 mg DAILY PO Last administered on 11/16/19at 08:47; Start 11/02/19 at 09:00; Stop 11/18/19 at 09:18; Status DC Cyclosporine (Restasis) 1 drop BID OU Last administered on 11/19/19 08:54; Start 11/01/19 at 21:00 Fluticasone Propionate (Flonase) 2 spray DAILY NS Last administered on 11/19/19 08:54; Start 11/02/19 at 09:00 Lactobacillus Rhamnosus (Culturelle) 1 cap BID PO Last administered on 11/09/19at 08:28; Start 11/01/19 at 21:00; Stop 11/09/19 at 16:57; Status DC Lidocaine (Lidoderm) 1 patch DAILY TP ; Start 11/02/19 at 09:00; Stop 11/01/19 at 20:34; Status DC Metoprolol Succinate (Toprol Xl) 100 mg HS PO Last administered on 11/17/19 21:05; Start 11/01/19 at 21:00; Stop 11/18/19 at 09:18; Status DC Nystatin (Nystop) 1 raza BID TP Last administered on 11/18/19at 20:56; Start 11/01/19 at 21:00 Pantoprazole Sodium (Protonix) 40 mg DAILYAC PO Last administered on 11/09/19 08:28; Start 11/02/19 at 07:30; Stop 11/09/19 at 16:54; Status DC Senna/Docusate Sodium (Senna Plus) 1 tab BID PO Last administered on 11/18/19at 09:37; Start 11/01/19 at 21:00 Sucralfate (Carafate) 1 gm TIDAC PO Last administered on 11/19/19at 12:00; Start 11/01/19 at 17:30 Tramadol HCl (Ultram) 50 mg PRN Q8HRS PRN PO PAIN; Start 11/01/19 at 16:30; S top 11/01/19 at 19:43; Status DC Insulin Glargine (Lantus Syringe) 30 unit QHS SQ Last administered on 11/06/19at 21:16; Start 11/01/19 at 21:00; Stop 11/07/19 at 15:56; Status DC Ondansetron HCl (Zofran Odt) 8 mg PRN Q8HRS PRN PO NAUSEA/VOMITING Last administered on 11/17/19at 12:12; Start 11/01/19 at 17:15 Polyethylene Glycol (miraLAX PACKET) 17 gm PRN DAILY PRN PO CONSTIPATION, 1ST CHOICE Last administered on 11/17/19 08:30; Start 11/01/19 at 17:11 Atorvastatin Calcium (Lipitor) 80 mg QHS PO Last administered on 11/18/19 20:47; Start 11/01/19 at 21:00 Insulin Human Lispro (HumaLOG) 0-9 UNITS TIDAC SQ Last administered on 11/07/19at 12:20; Start 11/01/19 at 16:30; Stop 11/07/19 at 15:56; Status DC Dextrose (Dextrose 50%-Water Syringe) 12.5 gm PRN Q15MIN PRN IV SEE COMMENTS; Start 11/01/19 at 16:30; Stop 11/12/19 at 15:36; Status DC Ondansetron HCl (Zofran) 4 mg PRN Q8HRS PRN IV NAUSEA/VOMITING; Start 11/01/19 at 16:30; Stop 11/02/19 at 16:29; Status DC Alprazolam (Xanax) 0.25 mg PRN TID PRN PO anxiety Last administered on 11/19/19 08:53; Start 11/01/19 at 17:11 Miscellaneous (Lidoderm Patch Removal) 1 ea QHS MC ; Start 11/01/19 at 21:00; Stop 11/01/19 at 20:34; Status DC Ceftriaxone Sodium (Rocephin) 1 gm QHS IVP Last administered on 11/15/19at 21:26; Start 11/01/19 at 18:45; Stop 11/16/19 at 08:52; Status DC Tramadol HCl (Ultram) 50 mg PRN Q8HRS PRN PO MILD PAIN 1-3 Last administered on 11/15/19at 17:56; Start 11/01/19 at 19:45 Hydromorphone HCl (Dilaudid) 1 mg PRN Q4HRS PRN IV SEVERE PAIN Last administered on 11/19/19 10:03; Start 11/01/19 at 20:15 Lidocaine (Lidoderm) 1 patch QHS TP Last administered on 11/18/19at 20:49; Start 11/01/19 at 21:00 Miscellaneous (Lidoderm Patch Removal) 1 ea DAILY MC Last administered on 11/18/19 09:00; Start 11/02/19 at 09:00 Albumin Human 500 ml @ 125 mls/hr 1X ONCE IV ; Start 11/02/19 at 02:00; Stop 11/02/19 at 05:59; Status Cancel Acetaminophen (Tylenol) 650 mg 1X PRN PRN PO PRE-TRANSFUSION; Start 11/02/19 at 06:45; Stop 11/03/19 at 14:16; Status DC Diphenhydramine HCl (Benadryl Oral Elixir) 12.5 mg 1X PRN PRN PO PRE- TRANSFUSION; Start 11/02/19 at 06:45; Stop 11/03/19 at 14:16; Status DC Diphenhydramine HCl (Benadryl) 25 mg PRN 1X PRN PO PRE-TRANSFUSION; Start 1 01/03/19 at 06:45; Stop 11/03/19 at 14:16; Status DC Lactulose (LACTULOSE 300ML for RECTAL) 200 gm Q6HRS NC Last administered on 11/02/19at 18:00; Start 11/02/19 at 18:00; Stop 11/04/19 at 14:44; Status DC Sodium Chloride 1,000 ml @ 100 mls/hr Q10H IV Last administered on 11/13/19at 15:30; Start 11/02/19 at 12:00; Stop 11/14/19 at 11:28; Status DC Lactulose (Lactulose) 20 gm PRN DAILY PRN PO CONSTIPATION, 2ND CHOICE; Start 11/04/19 at 14:45 Oxycodone HCl (Roxicodone) 5 mg PRN Q6HRS PRN PO MODERATE TO SEVERE PAIN Last administered on 11/19/19at 12:00; Start 11/04/19 at 14:45 Lidocaine HCl (Buffered Lidocaine 1%) 3 ml STK-MED ONCE .ROUTE ; Start 11/05/19 at 08:13; Stop 11/05/19 at 08:13; Status DC Lidocaine HCl (Buffered Lidocaine 1%) 3 ml STK-MED ONCE .ROUTE ; Start 11/05/19 at 08:14; Stop 11/05/19 at 08:14; Status DC Midazolam HCl (Versed) 2 mg STK-MED ONCE .ROUTE ; Start 11/05/19 at 08:40; Stop 11/05/19 at 08:40; Status DC Fentanyl Citrate (Fentanyl 2ml Vial) 100 mcg STK-MED ONCE .ROUTE ; Start 11/05/19 at 08:40; Stop 11/05/19 at 08:41; Status DC Lidocaine HCl (Buffered Lidocaine 1%) 3 ml 1X ONCE IJ Last administered on 11/05/19at 08:45; Start 11/05/19 at 08:45; Stop 11/05/19 at 08:50; Status DC Midazolam HCl (Versed) 2 mg 1X ONCE IV Last administered on 11/05/19at 08:45; Start 11/05/19 at 08:45; Stop 11/05/19 at 08:50; Status DC Fentanyl Citrate (Fentanyl 2ml Vial) 100 mcg 1X ONCE IV Last administered on 11/05/19at 08:45; Start 11/05/19 at 08:45; Stop 11/05/19 at 08:50; Status DC Dexamethasone Sodium Phosphate (Decadron) 4 mg Q6HRS IVP Last administered on 11/17/19at 06:03; Start 11/06/19 at 09:00; Stop 11/17/19 at 08:53; Status DC Insulin Glargine (Lantus Syringe) 40 unit QHS SQ Last administered on 11/15/19at 21:00; Start 11/07/19 at 21:00; Stop 11/16/19 at 08:53; Status DC Insulin Human Lispro (HumaLOG) 10 units TIDAC SQ Last administered on 11/14/19at 17:31; Start 11/07/19 at 16:30; Stop 11/15/19 at 08:16; Status DC Insulin Human Lispro (HumaLOG) 0-9 UNITS TIDWMEALS SQ Last administered on 11/11/19at 17:13; Start 11/07/19 at 17:00; Stop 11/12/19 at 15:37; Status DC Insulin Human Lispro (HumaLOG) 19 units 1X ONCE SQ Last administered on 11/09/19at 12:41; Start 11/09/19 at 12:15; Stop 11/09/19 at 12:16; Status DC Insulin Human Lispro (HumaLOG) 5 units 1X ONCE SQ Last administered on 11/09/19at 13:52; Start 11/09/19 at 13:30; Stop 11/09/19 at 13:31; Status DC Non-Formulary Medication 1 ea DAILY PO ; Start 11/09/19 at 16:30; Status Cancel Ondansetron HCl (Zofran) 4 mg PRN Q6HRS PRN IV NAUSEA/VOMITING; Start 11/12/19 at 07:00; Stop 11/12/19 at 19:56; Status DC Fentanyl Citrate (Fentanyl 2ml Vial) 25 mcg PRN Q5MIN PRN IV MILD PAIN 1-3; Start 11/12/19 at 07:00; Stop 11/12/19 at 19:56; Status DC Fentanyl Citrate (Fentanyl 2ml Vial) 50 mcg PRN Q5MIN PRN IV MODERATE TO SEVERE PAIN; Start 11/12/19 at 07:00; Stop 11/12/19 at 19:56; Status DC Morphine Sulfate (Morphine Sulfate) 1 mg PRN Q10MIN PRN IV SEVERE PAIN 7-10; Start 11/12/19 at 07:00; Stop 11/09/19 at 17:30; Status DC Ringer's Solution 1,000 ml @ 30 mls/hr Q24H IV Last administered on 11/12/19at 10:00; Start 11/12/19 at 07:00; Stop 11/12/19 at 18:59; Status DC Lidocaine HCl (Xylocaine-Mpf 1% 2ml Vial) 2 ml PRN 1X PRN ID PRIOR TO IV START; Start 11/12/19 at 07:00; Stop 11/12/19 at 19:56; Status DC Hydromorphone HCl (Dilaudid) 0.5 mg PRN Q10MIN PRN IV SEV PAIN, Second choice; Start 11/12/19 at 07:00; Stop 11/12/19 at 19:56; Status DC Prochlorperazine Edisylate (Compazine) 5 mg PACU PRN PRN IV NAUSEA, MRX1; Start 11/12/19 at 07:00; Stop 11/12/19 at 19:56; Status DC Pantoprazole Sodium (Protonix) 40 mg DAILYAC PO Last administered on 11/14/19at 08:19; Start 11/09/19 at 18:30; Stop 11/15/19 at 09:25; Status DC Levetiracetam (Keppra) 500 mg BID PO Last administered on 11/19/19at 08:53; Start 11/09/19 at 21:00 Non-Formulary Medication 1 ea DAILY PO Last administered on 11/19/19at 10:02; Start 11/12/19 at 09:00 Insulin Human Lispro (HumaLOG) 8 units 1X ONCE SQ Last administered on 11/10/19at 12:32; Start 11/10/19 at 12:15; Stop 11/10/19 at 12:16; Status DC Propofol 20 ml @ As Directed STK-MED ONCE IV ; Start 11/12/19 at 07:48; Stop 11/12/19 at 07:48; Status DC Dexamethasone Sodium Phosphate (Decadron) 20 mg STK-MED ONCE .ROUTE ; Start 11/12/19 at 07:48; Stop 11/12/19 at 07:48; Status DC Lidocaine HCl (Lidocaine Pf 2% Vial) 5 ml STK-MED ONCE .ROUTE ; Start 11/12/19 at 07:48; Stop 11/12/19 at 07:48; Status DC Ondansetron HCl (Zofran) 4 mg STK-MED ONCE .ROUTE ; Start 11/12/19 at 07:48; Stop 11/12/19 at 07:48; Status DC Phenylephrine HCl (Tony-Synephrine Inj) 10 mg STK-MED ONCE .ROUTE ; Start 11/12/19 at 07:48; Stop 11/12/19 at 07:48; Status DC Propofol 50 ml @ As Directed STK-MED ONCE IV ; Start 11/12/19 at 07:48; Stop 11/12/19 at 07:48; Status DC Rocuronium [place] (Zemuron) 50 mg STK-MED ONCE .ROUTE ; Start 11/12/19 at 07:48; Stop 11/12/19 at 07:48; Status DC Remifentanil HCl (Ultiva) 2 mg STK-MED ONCE IV ; Start 11/12/19 at 07:48; Stop 11/12/19 at 07:49; Status DC Sodium Chloride (SODIUM CHLORIDE 20ml) 20 ml STK-MED ONCE IJ ; Start 11/12/19 at 07:49; Stop 11/12/19 at 07:49; Status DC Multi-Ingred Cream/Lotion/Oil/ Oint (Artificial Tears Eye Ointment) 7 raza STK- MED ONCE .ROUTE ; Start 11/12/19 at 07:49; Stop 11/12/19 at 07:49; Status DC Bacitracin 12044 unit/Sodium Chloride 1,000 ml @ 1,000 mls/hr 1X ONCE IRR Last administered on 11/12/19 11:26; Start 11/12/19 at 07:57; Stop 11/12/19 at 08:56; Status DC Sodium Chloride (SODIUM CHLORIDE 20ml) 20 ml STK-MED ONCE IJ ; Start 11/12/19 at 07:57; Stop 11/12/19 at 07:57; Status DC Gelatin (Gelfoam Size 100) 1 each STK-MED ONCE .ROUTE Last administered on 11/12/19 11:26; Start 11/12/19 at 07:59; Stop 11/12/19 at 07:59; Status DC Cellulose (Surgicel Hemostat 4x8) 1 each STK-MED ONCE .ROUTE Last administered on 11/12/19at 12:01; Start 11/12/19 at 07:59; Stop 11/12/19 at 08:00; Status DC Lidocaine/ Epinephrine (LIDOCAINE 1%-EPI 1:100,000 Multi-Dose) 20 ml STK-MED ONCE .ROUTE Last administered on 11/12/19 11:26; Start 11/12/19 at 07:59; Stop 11/12/19 at 08:00; Status DC Thrombin 20,000 unit STK-MED ONCE TP Last administered on 11/12/19 11:26; Start 11/12/19 at 08:00; Stop 11/12/19 at 08:00; Status DC Bacitracin (Bacitracin Zinc Oint Pkt) 1 pkt STK-MED ONCE TP ; Start 11/12/19 at 08:00; Stop 11/12/19 at 08:00; Status DC Propofol 100 ml @ As Directed STK-MED ONCE IV ; Start 11/12/19 at 08:02; Stop 11/12/19 at 08:02; Status DC Insulin Human Lispro (HumaLOG) 11 units 1X ONCE SQ Last administered on 11/12/19at 08:15; Start 11/12/19 at 08:15; Stop 11/12/19 at 08:16; Status DC Gadoterate Meglumine (Dotarem) 24.8 ml 1X ONCE IVP Last administered on 11/12/19at 08:15; Start 11/12/19 at 08:15; Stop 11/12/19 at 08:16; Status DC Insulin Human Regular 100 unit/ Sodium Chloride 101 ml @ 12.484 mls/ hr ONCE ONCE IV ; Start 11/12/19 at 08:15; Stop 11/12/19 at 16:20; Status DC Desflurane (Suprane) 90 ml STK-MED ONCE IH ; Start 11/12/19 at 08:11; Stop 11/12/19 at 08:11; Status DC Fentanyl Citrate (Fentanyl 2ml Vial) 100 mcg STK-MED ONCE .ROUTE ; Start 11/12/19 at 08:20; Stop 11/12/19 at 08:20; Status DC Midazolam HCl (Versed) 2 mg STK-MED ONCE .ROUTE ; Start 11/12/19 at 08:20; Stop 11/12/19 at 08:20; Status DC Rocuronium [place] (Zemuron) 50 mg STK-MED ONCE .ROUTE ; Start 11/12/19 at 09:11; Stop 11/12/19 at 09:12; Status DC Mannitol (Mannitol) 12.5 g STK-MED ONCE .ROUTE ; Start 11/12/19 at 09:22; Stop 11/12/19 at 09:23; Status DC Propofol 100 ml @ As Directed STK-MED ONCE IV ; Start 11/12/19 at 09:22; Stop 11/12/19 at 09:23; Status DC Lidocaine HCl (Xylocaine-Mpf 1% 2ml Vial) 2 ml STK-MED ONCE .ROUTE ; Start 11/12/19 at 09:24; Stop 11/12/19 at 09:24; Status DC Cefazolin Sodium 3 gm/Dextrose 100 ml @ 200 mls/hr 1X PREOP ONCE IV Last administered on 11/12/19at 10:53; Start 11/12/19 at 10:30; Stop 11/12/19 at 10:59; Status DC Gelatin (Gelfoam Size 12-7mm) 1 each STK-MED ONCE .ROUTE Last administered on 11/12/19 12:03; Start 11/12/19 at 11:59; Stop 11/12/19 at 12:01; Status DC Thrombin 20,000 unit STK-MED ONCE TP Last administered on 11/12/19 12:04; Start 11/12/19 at 12:00; Stop 11/12/19 at 12:01; Status DC Gelatin (Gelfoam Size 100) 1 each STK-MED ONCE .ROUTE Last administered on 11/12/19 12:25; Start 11/12/19 at 12:26; Stop 11/12/19 at 12:26; Status DC Gelatin (Gelfoam Size 12-7mm) 1 each STK-MED ONCE .ROUTE Last administered on 11/12/19 13:35; Start 11/12/19 at 13:32; Stop 11/12/19 at 13:33; Status DC Thrombin 20,000 unit STK-MED ONCE TP Last administered on 11/12/19 13:35; Start 11/12/19 at 13:32; Stop 11/12/19 at 13:33; Status DC Gelatin (Gelfoam Size 12-7mm) 1 each STK-MED ONCE .ROUTE Last administered on 11/12/19 13:55; Start 11/12/19 at 13:55; Stop 11/12/19 at 13:55; Status DC Gelatin (Gelfoam Size 12-7mm) 1 each STK-MED ONCE .ROUTE Last administered on 11/12/19at 13:59; Start 11/12/19 at 13:59; Stop 11/12/19 at 13:59; Status DC Labetalol HCl (Normodyne Iv Push) 5 mg PRN Q15MIN PRN IVP HYPERTENSION; Start 11/12/19 at 15:15 Nicardipine HCl 50 mg/Sodium Chloride 250 ml @ 25 mls/hr TITRATE PRN IV SBP 90-140; Start 11/12/19 at 15:15; Stop 11/15/19 at 08:16; Status DC Hydralazine HCl (Apresoline Inj) 5 mg PRN Q6HRS PRN IVP TO KEEP SBP<140mmHg; Start 11/12/19 at 15:15 Al Hydroxide/Mg Hydroxide (Mylanta Plus Xs) 30 ml PRN Q3HRS PRN PO HEARTBURN / GAS; Start 11/12/19 at 15:15 Calcium Carbonate/ Glycine (Tums) 500 mg PRN Q3HRS PRN PO INDIGESTION; Start 11/12/19 at 15:15 Diphenhydramine HCl (Benadryl) 25 mg PRN Q6HRS PRN PO ITCHING; Start 11/12/19 at 15:15 Diphenhydramine HCl (Benadryl) 25 mg PRN Q6HRS PRN IV ITCHING; Start 11/12/19 at 15:15 Sodium Chloride (Normal Saline Flush) 3 ml QSHIFT PRN IV AFTER MEDS AND BLOOD DRAWS; Start 11/12/19 at 15:15 Insulin Human Lispro (HumaLOG) 0-5 UNITS TIDWMEALS SQ Last administered on 11/17/19at 08:39; Start 11/12/19 at 17:00; Stop 11/17/19 at 08:54; Status DC Dextrose (Dextrose 50%-Water Syringe) 12.5 gm PRN Q15MIN PRN IV SEE COMMENTS; Start 11/12/19 at 15:15 Dextrose (Iv Dextrose 5%) 250 ml PRN Q15MIN PRN IV SEE COMMENTS; Start 11/12/19 at 15:15; Stop 11/18/19 at 08:17; Status DC Hydromorphone HCl (Dilaudid) 0.2 mg PRN Q1HR PRN IV MODERATE PAIN Last administered on 11/19/19at 03:58; Start 11/12/19 at 15:15 Insulin Human Lispro (HumaLOG VIAL for OP,RR ONLY) 0-10 units PRN Q1HR PRN SQ PER PROTOCOL Last administered on 11/12/19at 15:50; Start 11/12/19 at 16:00; Stop 11/12/19 at 19:54; Status DC Insulin Human Lispro (HumaLOG VIAL for OP,RR ONLY) 4 unit 1X ONCE SQ ; Start 11/12/19 at 16:45; Stop 11/12/19 at 16:46; Status DC Ferrous Sulfate (Iron Oral Solution) 300 mg QD PO Last administered on 11/19/19at 08:55; Start 11/13/19 at 10:00 Gadoterate Meglumine (Dotarem) 10 ml 1X ONCE IVP Last administered on 11/13/19at 15:00; Start 11/13/19 at 14:45; Stop 11/13/19 at 14:48; Status DC Gadoterate Meglumine (Dotarem) 15 ml 1X ONCE IVP Last administered on 11/13/19at 15:00; Start 11/13/19 at 14:45; Stop 11/13/19 at 14:48; Status DC Insulin Human Lispro (HumaLOG) 15 units TIDAC SQ Last administered on 11/15/19at 17:08; Start 11/15/19 at 08:15; Stop 11/16/19 at 08:53; Status DC Insulin Glargine (Lantus Syringe) 20 unit DAILY SQ Last administered on 11/15/19at 09:20; Start 11/15/19 at 09:00; Stop 11/16/19 at 08:53; Status DC Enoxaparin Sodium (Lovenox 40mg Syringe) 40 mg Q12H SQ Last administered on 11/15/19at 23:36; Start 11/15/19 at 10:00; Stop 11/16/19 at 07:50; Status DC Enoxaparin Sodium (Lovenox 40mg Syringe) 40 mg DAILY SQ Last administered on 11/19/19at 08:55; Start 11/16/19 at 09:00 Meropenem 1 gm/ Sodium Chloride 100 ml @ 200 mls/hr Q8HRS IV ; Start 11/16/19 at 14:00; Stop 11/16/19 at 12:31; Status DC Insulin Glargine (Lantus Syringe) 40 unit BID SQ Last administered on 9at 09:08; Start 11/16/19 at 09:00 Insulin Human Lispro (HumaLOG) 20 units TIDAC SQ Last administered on 11/18/19at 08:35; Start 11/16/19 at 11:30; Stop 11/18/19 at 09:19; Status DC Insulin Glargine (Lantus Syringe) 20 unit 1X ONCE SQ Last administered on 11/16/19at 09:48; Start 11/16/19 at 09:15; Stop 11/16/19 at 09:16; Status DC Fosfomycin Tromethamine (Monurol) 3 gm 1X ONCE PO Last administered on 11/16/19at 12:49; Start 11/16/19 at 12:30; Stop 11/16/19 at 12:33; Status DC Fosfomycin Tromethamine (Monurol) 3 gm 1X ONCE PO Last administered on 11/18/19at 09:57; Start 11/18/19 at 09:00; Stop 11/18/19 at 09:01; Status DC Dexamethasone (Decadron) 4 mg QID PO Last administered on 11/19/19at 08:54; Start 11/17/19 at 13:00 Insulin Human Lispro (HumaLOG) 0-9 UNITS TIDWMEALS SQ Last administered on 11/19/19at 12:07; Start 11/17/19 at 12:00 Dextrose (Dextrose 50%-Water Syringe) 12.5 gm PRN Q15MIN PRN IV SEE COMMENTS; Start 11/17/19 at 09:00; Status UNV Dextrose (Iv Dextrose 5%) 250 ml PRN Q15MIN PRN IV SEE COMMENTS; Start 11/17/19 at 09:00 Metoprolol Succinate (Toprol Xl) 50 mg HS PO ; Start 11/18/19 at 21:00 Insulin Human Lispro (HumaLOG) 30 units TIDAC SQ Last administered on 11/19/19at 12:08; Start 11/18/19 at 09:30 Active Scripts Active Enoxaparin Sodium 120 Mg/0.8 Ml Disp.syrin 120 Mg SQ Q12HR 28 Days Dexamethasone 4 Mg Tablet 4 Mg PO BID 14 Days Culturelle (Lactobacillus Rhamnosus Gg) 1 Each Cap.sprink 1 Cap PO BID 30 Days Amlodipine Besylate 5 Mg Tablet 5 Mg PO DAILY 30 Days Cefdinir 300 Mg Capsule 300 Mg PO BID 10 Days Reported Cymbalta (Duloxetine Hcl) 60 Mg Capsule.dr 1 Cap PO BID Lyrica (Pregabalin) 150 Mg Capsule 1 Cap PO BID Novolog (Insulin Aspart) 100 Unit/1 Ml Cartridge 10-45 Unit SQ QIDACHS Levemir (Insulin Detemir) 100 Unit/1 Ml Vial 30 Unit SQ HS Linzess (Linaclotide) 145 Mcg Capsule 145 Mcg PO PRN PRN Crestor (Rosuvastatin Calcium) 40 Mg Tablet 0.5 Tab PO DAILY Polyethylene Glycol 3350 2,500 Gm Powder 17 Gm PO PRN PRN Xanax (Alprazolam) 1 Mg Tablet 1 Tab PO TID Restasis (Cyclosporine) 1 Each Droperette 1 Drop EACHEYE BID Proair Hfa Inhaler (Albuterol Sulfate) 8.5 Gm Hfa.aer.ad 1 Puff INH PRN Q6HRS PRN Tramadol Hcl 50 Mg Tablet 1 Tab PO PRN Q8HRS PRN Ondansetron Hcl 4 Mg Tablet 2 Tab PO PRN Q8HRS PRN Nystatin 15 Gm Powder 1 [place] TP BID Lidocaine PATCH (Lidocaine) 1 Each Adh..patch 1 Each TP DAILY Fluticasone Propionate Nasal [place] (Fluticasone Propionate) 16 Gm [place].susp 2 [place] NS DAILY Percocet 5-325 Mg Tablet (Oxycodone/Acetaminophen) 1 Each Tablet 1-2 Tab PO Q4-6HRS PRN LAST DOSE AT NEXT DOSE Senna-Docusate Sodium Tablet (Sennosides/Docusate Sodium) 1 Each Tablet 1 Each PO BID LAST DOSE THIS AM NEXT DOSE TONIGHT Robaxin-750 (Methocarbamol) 750 Mg Tablet 1 Tab PO TID LAST DOSE AT 1400 (2PM) MAY HAVE THE NEXT DOSE AT 10 PM Protonix (Pantoprazole Sodium) 40 Mg Tablet.dr 40 Mg PO DAILY LST DOSE THIS AM NEXT DOSE TOMORROW AM Carafate (Sucralfate) 1 Gm Tablet 1 Tab PO TID Meds not given this hospital admission. May resume home medications as approved by Physician. MAY TAKE WHEN AVAILABLE Xarelto (Rivaroxaban) 15 Mg Tablet 15 Mg PO DAILY Meds not given this hospital admission. May resume home medications as approved by Physician. MAY RESUME WHEN AVAILABLE Metoprolol Succinate ( Xl ) (Metoprolol Succinate) 100 Mg Tab.er.24h 100 Mg PO HS LAST DOSE THIS AM NEXT DOSE TOMORROW AM Vitals/I & O Vital Sign - Last 24 Hours 11/18/19 11/18/19 11/18/19 11/18/19 14:04 14:31 14:34 15:00 Temp 98.1 98.1 Pulse 94 Resp 16 16 16 16 B/P (MAP) 108/55 (72) Pulse Ox 96 O2 Delivery Room Air Room Air Room Air Room Air 11/18/19 11/18/19 11/18/19 11/18/19 16:04 18:01 18:18 19:00 Temp 98.2 98.2 Pulse 92 Resp 16 16 16 20 B/P (MAP) 93/46 (62) Pulse Ox 95 O2 Delivery Room Air Room Air Room Air Nasal Cannula 11/18/19 11/18/19 11/18/19 11/18/19 19:14 20:46 20:48 21:46 Pulse 92 B/P (MAP) 93/46 O2 Delivery Room Air Room Air Room Air 11/18/19 11/18/19 11/18/19 11/19/19 21:48 22:18 23:00 01:39 Temp 97.9 97.9 Pulse 91 Resp 19 B/P (MAP) 93/53 (66) Pulse Ox 99 99 O2 Delivery Room Air Room Air Nasal Cannula Room Air O2 Flow Rate 2.0 2.0 11/19/19 11/19/19 11/19/19 11/19/19 02:09 02:59 03:56 03:58 Temp 97.9 97.9 Pulse 80 Resp 19 B/P (MAP) 110/59 (76) Pulse Ox 99 100 100 O2 Delivery Room Air Room Air Nasal Cannula Room Air O2 Flow Rate 2.0 2.0 2.0 11/19/19 11/19/19 11/19/19 11/19/19 04:28 04:56 05:53 06:23 Pulse Ox 100 100 100 O2 Delivery Room Air Room Air Room Air Room Air O2 Flow Rate 2.0 2.0 2.0 11/19/19 11/19/19 11/19/19 11/19/19 07:00 10:03 10:30 11:00 Temp 98.2 97.6 98.2 97.6 Pulse 70 95 Resp 16 18 B/P (MAP) 104/51 (68) 107/48 (67) Pulse Ox 99 99 98 98 O2 Delivery Room Air Room Air Room Air Room Air 11/19/19 12:00 Pulse Ox 98 O2 Delivery Room Air Nutrition Consultation Dietary Evaluation: Recommendations by RD: Dietary education by RD, Increase Calorie Intake, Protein supplementation Comments: REC ADA/cardiac diet ,glucerna tid Expected Outcomes/Goals: PO intake to meet >75% est needs- met at times, goal ongoing Interpretation of weight loss: >5% in 1 month Malnutrition Findings: Food and Nutrition Intake (Sev: <50% est energy req 5days Weight Status: Morbidly Obese BINH WELCH MD Nov 19, 2019 12:16
--- NOTE | 2019-11-19 14:38 | PDOC ---
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 Vasogenic edema with 4 mm left to right midline shift Headaches. Right side hemiplegia, UE > LE. Cognitive impairment. Staring spells. CML. HTN. HLD. DM. KRISS. ADHD. PE Hx. Leukocytosis. Obesity. RECOMMENDATIONS/PLAN: Pain control for headache. Continue Decadron 4 mg IV q6h. Continue Lipitor HS. Treat medical diseases. FU with Neurosurgery and Oncology. FU pathology reports. Weight reduction. OT/PT. Rehab. EEG on 11/06/19: normal. Past Medical History Cardiovascular: HTN, Hyperlipidemia, Other (tachycardia) Pulmonary: Asthma, Pulmonary embolus ( DVT, on [place]), Other (sleep apnea) CENTRAL NERVOUS SYSTEM: Periperal neuropathy, Other (right L5 radiculopathy) GI: Peptic Ulcer disease, Other (pancreatitis, hiatal hernia) Psych: Anxiety, Depression, Other (ADHD) Musculoskeletal: low back pain Renal/: Other (nephrolithiasis) Endocrine: Diabetes Past Surgical History Appendectomy, Cholecystectomy, , Hysterectomy (fbrioids), Other (lumbar laminectomy) Family History Cancer, CAD Social History ex smoker, no alcohol, disabled Allergies Coded Allergies: azithromycin (Verified Allergy, Intermediate, 10/12/19) codeine (Verified Allergy, Intermediate, 05/06/17) morphine (Verified Allergy, Intermediate, 05/06/17) ROS Negative for fever, chills, weight loss, shortness of breath, chest pain, indigestion, hematochezia, melena, and dysuria. Full 14-point review of systems is negative. MEDICATIONS: Refer to [facility] PHYSICAL EXAMINATION: General appearance in subacute distress. HEENT: Normocephalic and nontraumatic. Eyes, nose, ears, and throat are unremarkable. Hearing decrease. Neck is supple. No lymphadenopathy. No Crepitus. Cardiovascular: S1, S2, regular rate and rhythm. Pulmonary: Clear to auscultation bilaterally. Abdomen: Bowel sounds are positive. Abdomen is soft, nontender, and nondistended. Extremities: No rash, lesions, or edema. No restriction of range of motion NEUROLOGICAL EXAMINATION: Alert. Oriented to time, place and person. PERRL. EOMI. CN: no focal findings. Muscle tone: within normal. Muscle strength: 0 right UE, 2 right LE, 4+ left side. DTR: 0-1 right side, 1+ left side. Plantar reflex: neutral response bilaterally Gait: Not able to walk a few steps. Sensory exam: Decreased to light touch in right LE below the knee. No cerebellar signs elicited. F-T-N test fine in left side. Unable to move right UE.. Objective Objective Vital Signs Date Time Temp Pulse Resp B/P (MAP) Pulse Ox O2 Delivery O2 Flow Rate FiO2 11/19/19 14:06 98 Room Air 11/19/19 11:00 97.6 95 18 107/48 (67) 97.6 11/19/19 06:23 2.0 Vitals Signs Vitals VS - Last 72 Hours, by Label Date Time Temp Pulse Resp B/P (MAP) Pulse Ox O2 Delivery O2 Flow Rate FiO2 11/19/19 14:06 98 Room Air 11/19/19 13:00 98 Room Air 11/19/19 12:00 98 Room Air 11/19/19 11:00 97.6 95 18 107/48 (67) 98 Room Air 97.6 11/19/19 10:30 98 Room Air 11/19/19 10:03 99 Room Air 11/19/19 08:00 Room Air 11/19/19 07:00 98.2 70 16 104/51 (68) 99 Room Air 98.2 11/19/19 06:23 100 Room Air 2.0 11/19/19 05:53 100 Room Air 2.0 11/19/19 04:56 Room Air 11/19/19 04:28 100 Room Air 2.0 11/19/19 03:58 100 Room Air 2.0 11/19/19 03:56 Nasal Cannula 2.0 11/19/19 02:59 97.9 80 19 110/59 (76) 100 Room Air 97.9 11/19/19 02:09 99 Room Air 2.0 11/19/19 01:39 99 Room Air 2.0 11/18/19 23:00 97.9 91 19 93/53 (66) 99 Nasal Cannula 2.0 97.9 11/18/19 22:18 Room Air 11/18/19 21:48 Room Air 11/18/19 21:46 Room Air 11/18/19 20:48 92 93/46 11/18/19 20:46 Room Air 11/18/19 19:14 Room Air 11/18/19 19:00 98.2 92 20 93/46 (62) 95 Nasal Cannula 98.2 11/18/19 18:18 16 Room Air 11/18/19 18:01 16 Room Air 11/18/19 16:04 16 Room Air 11/18/19 15:00 98.1 94 16 108/55 (72) 96 Room Air 98.1 11/18/19 14:34 16 Room Air 11/18/19 14:31 16 Room Air 11/18/19 14:04 16 Room Air 11/18/19 11:00 97.9 87 18 102/49 (66) 96 Room Air 97.9 11/18/19 10:16 16 Room Air 11/18/19 09:50 16 Room Air 11/18/19 09:36 16 Room Air 11/18/19 08:32 16 Room Air 11/18/19 08:00 Room Air 11/18/19 07:00 97.6 72 18 109/55 (73) 96 Room Air 97.6 Laboratory Laboratory Laboratory Tests Test 11/18/19 16:42 11/18/19 20:29 11/19/19 07:13 11/19/19 11:44 Glucose (Fingerstick) 102 mg/dL (70-99) 269 mg/dL (70-99) 204 mg/dL (70-99) 183 mg/dL (70-99) Microbiology 11/10/19 Urine Culture - Final, Complete 11/10/19 Urine Culture Result 1 (СВЕТЛАНА) - Final, Complete 11/10/19 Antimicrobic Susceptibility - Final, Complete 11/01/19 Blood Culture - Final, Complete NO GROWTH AFTER 5 DAYS Medication Medications Current Medications Metoprolol Succinate (Toprol Xl) 50 mg HS PO ; Start 11/18/19 at 21:00 Comment Review of Relevant I have reviewed the following items mustapha (where applicable) has been applied. JOHNATHON OGLESBY MD Nov 19, 2019 14:38
[2019-11-19] MEDS ORDERED: DEXA4TAB PO (14:52)
[2019-11-19 15:00] VITALS: BP 108/66
[2019-11-19] MEDS ORDERED: LEVE500T56 PO (15:02)
[2019-11-19] MEDS ORDERED: FERR325T14 PO (15:03)
[2019-11-19] MEDS ORDERED: DASA100T PO (15:03)
[2019-11-19] MEDS ORDERED: OXYC5TAB88 PO (15:04)
[2019-11-19 19:00] VITALS: BP 104/60
[2019-11-19] MEDS: ATORVASTATIN CALCIUM 40 MG TABLET. PO SCH (20:54)
[2019-11-19] MEDS: LIDOCAINE (700MG/PATCH) PATCH. TP SCH (21:00)
[2019-11-19] MEDS: METOPROLOL SUCC 24HR ER 50 MG TAB.ER.24H. PO SCH (21:00)
[2019-11-19 23:00] VITALS: BP 104/61
[2019-11-20] MEDS: HYDROmorphone 2 MG/ML VIAL IV PRN ×5 (02:58→20:14)
[2019-11-20 03:00] VITALS: BP 118/66
[2019-11-20] MEDS: oxyCODONE IR 5 MG TABLET PO PRN ×2 (04:13→17:12)
[2019-11-20 05:45] LABS: BASO % 0 % (0-3); EOS % 0 % (0-3); HEMATOCRIT 28.7 % (36.0-47.0); HEMOGLOBIN 9.2 g/dL (12.0-15.5); LYMPH # 0.6 x10^3/uL (1.0-4.8); LYMPH % 5 % (24-48); MEAN CORPUSCULAR HEMOGLOBIN 30 pg (25-35); MEAN CORPUSCULAR HGB CONC 32 g/dL (31-37); MEAN CORPUSCULAR VOLUME 94 fL (79-100); MONO # 0.2 x10^3/uL (0.0-1.1); MONO % 2 % (0-9); NEUT # 10.4 x10^3/uL (1.8-7.7); NEUT % 92 % (31-73); PLATELET COUNT 313 x10^3/uL (140-400); RED BLOOD COUNT 3.06 x10^6/uL (3.50-5.40); RED CELL DISTRIBUTION WIDTH 19.6 % (11.5-14.5); WHITE BLOOD COUNT 11.3 x10^3/uL (4.0-11.0)
[2019-11-20 07:00] VITALS: BP 98/59
[2019-11-20] MEDS: SUCRALFATE 1 GM TABLET. PO SCH ×3 (07:22→16:11)
[2019-11-20] MEDS: SENNOSIDES/DOCUSATE 8.6/50MG TABLET. PO SCH ×2 (07:27→21:00)
[2019-11-20] MEDS: INSULIN LISPRO 300 UNITS/3 ML VIAL. SQ SCH ×6 (07:30→17:00)
[2019-11-20 07:51] LABS: % BANDS 2 % (0-9); % LYMPHS 1 % (24-48); % METAS 2 % (0-0); % MONOS 1 % (0-10); % SEGS 94 % (35-66); PLT ESTIMATE ADEQUATE (ADEQUATE)
[2019-11-20 07:52] LABS: ANISOCYTOSIS MOD; POLYCHROMASIA MOD; TEAR DROP CELLS FEW; TOXIC GRANULATION SLIGHT
[2019-11-20] MEDS: NYSTATIN TOPICAL POWDER 15GM BOTTLE. TP SCH ×2 (08:43→21:00)
[2019-11-20] MEDS: ENOXAPARIN 40 MG/0.4 ML SYRINGE. SQ SCH (08:43)
[2019-11-20] MEDS: PATCH REMOVAL. MC SCH (08:44)
[2019-11-20] MEDS: cycloSPORINE 0.05% OPHTH DROPERETTE. OU SCH ×2 (08:44→21:27)
[2019-11-20] MEDS: levETIRAcetam 500 MG TABLET PO SCH ×2 (08:44→21:26)
[2019-11-20] MEDS: FERROUS SULFATE ORAL 300 MG/5 ML SOLUTION. PO SCH (08:44)
[2019-11-20] MEDS: FLUTICASONE 50MCG/NASAL SPRAY 16GM BOTTLE. NS SCH (08:44)
[2019-11-20] MEDS: ALPRAZolam 0.25 MG TABLET PO PRN ×2 (08:44→16:11)
[2019-11-20] MEDS ORDERED: DEXA4TAB63 PO (08:46)
--- NOTE | 2019-11-20 08:47 | SNU/HH DC ---
DISCHARGE ORDERS DISCHARGE INFORMATION: DISCHARGE DATE: Nov 20, 2019 FINAL DIAGNOSIS Problems Medical Problems: (1) Abdominal hemorrhage Status: Acute (2) Generalized weakness Status: Acute (3) Lactic acidosis Status: Acute (4) Leukocytosis Status: Acute CONDITION ON DISCHARGE: Stable CODE STATUS: Code Status: Full POST DISCHARGE ORDERS: ACTIVITY ORDERS: Activity as tolerated WEIGHT BEARING STATUS: As tolerated BATHING ORDERS: Shower-keep dressing dry, No Tub Bath until see DIET AFTER DISCHARGE: Cardiac WOUND/INCISION CARE: Ice to area for comfort, Keep wound/cast CDI CHECKS AFTER DISCHARGE: CHECKS AFTER DISCHARGE: Check blood sugar, ac/hs, Check your Temp as needed, Weigh Yourself Daily FOLLOW-UP: PHYSICIAN FOLLOW-UP: ANTON TO BE REMOVED IN 7-10 DAYS ADDITIONAL FOLLOW-UP: start decadRON taper, keep keppra indefinitely TREATMENT/EQUIPMENT ORDERS: ADAPTIVE EQUIPMENT NEEDED: Front wheeled walker Physical Therapy For: Evalulation/Treatment Occupational Therapy For: Evaluation/Treatment Speech Language Pathology For: Evaluation/Treatment DISCHARGE MEDICATIONS: Home Meds Active Scripts Dexamethasone (Decadron) 4 Mg Tablet, 1 TAB PO BID for START TO TAPER AT [facility] for 3 Days, #6 TAB 0 Refills Prov:RAFAEL CAT MD 11/20/19 Lactobacillus Rhamnosus Gg (CULTURELLE) 1 Each Cap.sprink, 1 CAP PO BID for supplement for 30 Days, #60 CAP Prov:LUANNE OWUSU MD 10/24/19 Reported Medications Oxycodone HCl (Roxicodone) 5 Mg Tablet, 1 TAB PO PRN Q6HRS PRN for SEVERE PAIN 7-10, TAB 11/19/19 Ferrous Sulfate (FERROUS SULFATE) 325 Mg Tablet, 1 TAB PO DAILY for Anemia, #30 TAB 3 Refills 11/19/19 Dasatinib (SPRYCEL) 100 Mg Tablet, 100 MG PO BID for Cancer, TAB 11/19/19 Levetiracetam (KEPPRA) 500 Mg Tablet, 1 TAB PO BID for Seizures for 30 Days, #60 TAB 0 Refills 11/19/19 Duloxetine Hcl (CYMBALTA) 60 Mg Capsule.dr, 1 CAP PO BID for Depression, #90 CAP 3 Refills 10/19/19 Pregabalin (LYRICA) 150 Mg Capsule, 1 CAP PO BID for PAIN, #60 CAP 5 Refills 10/19/19 Insulin Aspart (NOVOLOG) 100 Unit/1 Ml Cartridge, 10-45 UNIT SQ QIDACHS for blood sugar, EACH 10/19/19 Insulin Detemir (LEVEMIR) 100 Unit/1 Ml Vial, 30 UNIT SQ HS for Blood Sugar, VIAL 10/19/19 Linaclotide (LINZESS) 145 Mcg Capsule, 145 MCG PO PRN PRN for CONSTIPATION, CAP 10/19/19 Rosuvastatin Calcium (CRESTOR) 40 Mg Tablet, 0.5 TAB PO DAILY for HLD, #30 TAB 5 Refills 10/19/19 Polyethylene Glycol 3350 (POLYETHYLENE GLYCOL 3350) 2,500 Gm Powder, 17 GM PO PRN PRN for CONSTIPATION, #255 GM 0 Refills 10/19/19 Alprazolam (XANAX) 1 Mg Tablet, 1 TAB PO TID for Anxiety, #90 TAB 10/19/19 Cyclosporine (RESTASIS) 1 Each Droperette, 1 DROP EACHEYE BID, #60 VIAL 3 Refills 11/26/17 Albuterol Sulfate (PROAIR HFA INHALER) 8.5 Gm Hfa.aer.ad, 1 PUFF INH PRN Q6HRS PRN for SHORTNESS OF BREATH, INHALER 0 Refills 11/25/17 Tramadol Hcl (TRAMADOL HCL) 50 Mg Tablet, 1 TAB PO PRN Q8HRS PRN for PAIN, #30 TAB 11/25/17 Ondansetron Hcl (ONDANSETRON HCL) 4 Mg Tablet, 2 TAB PO PRN Q8HRS PRN for NAUSEA/VOMITING, #10 TAB 1 Refill 11/25/17 Nystatin (NYSTATIN) 15 Gm Powder, 1 BRET TP BID, #1 BOTTLE 11/25/17 Fluticasone Propionate (FLUTICASONE PROPIONATE NASAL SPRAY) 16 Gm [place].susp, 2 SPRAY NS DAILY, #1 INHALER 11 Refills 11/25/17 Sennosides/Docusate Sodium (SENNA-DOCUSATE SODIUM TABLET) 1 Each Tablet, 1 EACH PO BID for CONSTIPATION, #60 TAB 0 Refills LAST DOSE THIS AM NEXT DOSE TONIGHT 11/09/17 Methocarbamol (ROBAXIN-750) 750 Mg Tablet, 1 TAB PO TID for MUSCLE SPASMS, #90 TAB 0 Refills LAST DOSE AT 1400 (2PM) MAY HAVE THE NEXT DOSE AT 10 PM 11/09/17 Pantoprazole Sodium (PROTONIX ) 40 Mg Tablet.dr, 40 MG PO DAILY for STOMACH, TAB LST DOSE THIS AM NEXT DOSE TOMORROW AM 05/05/17 Sucralfate (CARAFATE) 1 Gm Tablet, 1 TAB PO TID, #120 TAB 3 Refills Meds not given this hospital admission. May resume home medications as approved by Physician. MAY TAKE WHEN AVAILABLE 05/05/17 Rivaroxaban (XARELTO) 15 Mg Tablet, 15 MG PO DAILY for BLOOD THINNER, TAB Meds not given this hospital admission. May resume home medications as approved by Physician. MAY RESUME WHEN AVAILABLE 05/05/17 Metoprolol Succinate (METOPROLOL SUCCINATE ( XL )) 100 Mg Tab.er.24h, 50 MG PO HS for FOR HYPERTENSION, #30 TAB 0 Refills 05/05/17 Discontinued Reported Medications Dexamethasone (DEXAMETHASONE) 4 Mg Tablet, 4 MG PO QID for Swelling in head, TAB 11/19/19 RAFAEL CAT MD Nov 20, 2019 08:47
--- NOTE | 2019-11-20 08:50 | PDOC3 ---
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 11/05 Leukocytosis on decadron - has gotten 44 iV doses, shifted to PO decadron 11.17 Acute encephalopathy -POA, resolved Headaches stable DM2 uncontrolled on decadron IV Chronic Back Pain and Sciatica Rt Leg Acute blood loss anemia Brain Mass Hx PE Hypotension resolved Epistaxis resolved GEnw eakness, - REhab on dc Urnary retention off de la o 11/17 MDR ESBL UTI Final Diagnosis Problems Medical Problems: (1) Abdominal hemorrhage Status: Acute (2) Generalized weakness Status: Acute (3) Lactic acidosis Status: Acute (4) Leukocytosis Status: Acute Brief Hospital Course Allergies Allergies Coded Allergies Type Severity Reaction Last Updated Verified azithromycin Allergy Intermediate 10/12/19 Yes codeine Allergy Intermediate 05/06/17 Yes morphine Allergy Intermediate 11/01/19 Yes I S O L A T I O N *CONTACT* Allergy Unknown 11/16/19 Yes Vital Signs Vital Signs Date Time Temp Pulse Resp B/P (MAP) Pulse Ox O2 Delivery O2 Flow Rate FiO2 11/20/19 07:25 Room Air 11/20/19 07:00 98.7 59 18 98/59 (72) 95 98.7 11/20/19 05:13 2.0 Lab Results Laboratory Tests Test 11/18/19 10:59 11/18/19 16:42 11/18/19 20:29 11/19/19 07:13 Glucose (Fingerstick) 277 mg/dL (70-99) 102 mg/dL (70-99) 269 mg/dL (70-99) 204 mg/dL (70-99) Test 11/19/19 11:44 11/19/19 16:37 11/19/19 20:26 11/20/19 04:22 Glucose (Fingerstick) 183 mg/dL (70-99) 112 mg/dL (70-99) 102 mg/dL (70-99) 173 mg/dL (70-99) Test 11/20/19 05:35 11/20/19 07:38 White Blood Count 11.3 x10^3/uL (4.0-11.0) Red Blood Count 3.06 x10^6/uL (3.50-5.40) Hemoglobin 9.2 g/dL (12.0-15.5) Hematocrit 28.7 % (36.0-47.0) Mean Corpuscular Volume 94 fL (79-100) Mean Corpuscular Hemoglobin 30 pg (25-35) Mean Corpuscular Hemoglobin Concent 32 g/dL (31-37) Red Cell Distribution Width 19.6 % (11.5-14.5) Platelet Count 313 x10^3/uL (140-400) Neutrophils (%) (Auto) 92 % (31-73) Lymphocytes (%) (Auto) 5 % (24-48) Monocytes (%) (Auto) 2 % (0-9) Eosinophils (%) (Auto) 0 % (0-3) Basophils (%) (Auto) 0 % (0-3) Neutrophils # (Auto) 10.4 x10^3/uL (1.8-7.7) Lymphocytes # (Auto) 0.6 x10^3/uL (1.0-4.8) Monocytes # (Auto) 0.2 x10^3/uL (0.0-1.1) Eosinophils # (Auto) 0.0 x10^3/uL (0.0-0.7) Basophils # (Auto) 0.0 x10^3/uL (0.0-0.2) Segmented Neutrophils % 94 % (35-66) Band Neutrophils % 2 % (0-9) Lymphocytes % 1 % (24-48) Monocytes % 1 % (0-10) Metamyelocytes % 2 % (0-0) Toxic Granulation Slight Platelet Estimate Adequate (ADEQUATE) Polychromasia Mod Anisocytosis Mod Tear Drop Cells Few Glucose (Fingerstick) 176 mg/dL (70-99) Laboratory Tests Test 11/19/19 11:44 11/19/19 16:37 11/19/19 20:26 11/20/19 04:22 Glucose (Fingerstick) 183 mg/dL (70-99) 112 mg/dL (70-99) 102 mg/dL (70-99) 173 mg/dL (70-99) Test 11/20/19 05:35 11/20/19 07:38 White Blood Count 11.3 x10^3/uL (4.0-11.0) Red Blood Count 3.06 x10^6/uL (3.50-5.40) Hemoglobin 9.2 g/dL (12.0-15.5) Hematocrit 28.7 % (36.0-47.0) Mean Corpuscular Volume 94 fL (79-100) Mean Corpuscular Hemoglobin 30 pg (25-35) Mean Corpuscular Hemoglobin Concent 32 g/dL (31-37) Red Cell Distribution Width 19.6 % (11.5-14.5) Platelet Count 313 x10^3/uL (140-400) Neutrophils (%) (Auto) 92 % (31-73) Lymphocytes (%) (Auto) 5 % (24-48) Monocytes (%) (Auto) 2 % (0-9) Eosinophils (%) (Auto) 0 % (0-3) Basophils (%) (Auto) 0 % (0-3) Neutrophils # (Auto) 10.4 x10^3/uL (1.8-7.7) Lymphocytes # (Auto) 0.6 x10^3/uL (1.0-4.8) Monocytes # (Auto) 0.2 x10^3/uL (0.0-1.1) Eosinophils # (Auto) 0.0 x10^3/uL (0.0-0.7) Basophils # (Auto) 0.0 x10^3/uL (0.0-0.2) Segmented Neutrophils % 94 % (35-66) Band Neutrophils % 2 % (0-9) Lymphocytes % 1 % (24-48) Monocytes % 1 % (0-10) Metamyelocytes % 2 % (0-0) Toxic Granulation Slight Platelet Estimate Adequate (ADEQUATE) Polychromasia Mod Anisocytosis Mod Tear Drop Cells Few Glucose (Fingerstick) 176 mg/dL (70-99) Brief Hospital Course Ms. Alejo is a 49 old WHITE FEMALE WHO CAMe IN WITH HUGE BRAIN MASS THAT NEEDED RESECTION BY NS, PATH IS STILL PENDING. COURSE REMARKABLE FOR URINARY RETENTION (DE LA O LONG DAYS AND MDR ESBL UTI CO MANAGED WITH ID AND NOW OFF ABX, CAN START STEROID TAPER PER NS AT [facility] and edd to be removed 7-10 days, COnt keppra for now per neuro indefinitely, Ff upNS and yvonne upon [facility] PT has better strength, able to move RT leg but RT arm may seem still weak, CONVERSANT and eating reg diet FULL CODE dw RN PT seen and examined Discharge Information Condition at Discharge: Improved, Stable Disposition/Orders: Other ([facility]) Scheduled Alprazolam (Xanax) 1 Mg Tablet, 1 TAB PO TID for Anxiety, #90 (Reported) Entered as Reported by: HOLLI PONCE RN on 10/19/19 0042 Last Action: Continued on 11/01/191628 by DEVEN BAZZI MD Cyclosporine (Restasis) 1 Each Droperette, 1 DROP EACHEYE BID, #60 Ref 3 (Reported) Entered as Reported by: MELITA ONOFRE on 11/26/17 1351 Last Action: Continued on 11/01/191628 by DEVEN BAZZI MD Dasatinib (Sprycel) 100 Mg Tablet, 100 MG PO BID for Cancer, (Reported) Entered as Reported by: ARTEM RUSSELL on 11/19/19 1503 Dexamethasone (Decadron) 4 Mg Tablet, 1 TAB PO BID for START TO TAPER AT [facility] for 3 Days, #6 Ref 0 Prescribed by: RAFAEL CAT on 11/20/19 0846 Duloxetine Hcl (Cymbalta) 60 Mg Capsule.dr, 1 CAP PO BID for Depression, #90 Ref 3 (Reported) Entered as Reported by: HOLLI PONCE RN on 10/19/19 0112 Ferrous Sulfate (Ferrous Sulfate) 325 Mg Tablet, 1 TAB PO DAILY for Anemia, #30 Ref 3 (Reported) Entered as Reported by: ARTEM RUSSELL on 11/19/19 1503 Fluticasone Propionate (Fluticasone Propionate Nasal [place]) 16 Gm [place].susp, 2 SPRAY NS DAILY, #1 Ref 11 (Reported) Entered as Reported by: Romy Rivera on 11/25/17 2330 Last Action: Continued on 11/01/191628 by DEVEN BAZZI MD Insulin Aspart (Novolog) 100 Unit/1 Ml Cartridge, 10-45 UNIT SQ QIDACHS for blood sugar, (Reported) Entered as Reported by: HOLLI PONCE RN on 10/19/19 0110 Insulin Detemir (Levemir) 100 Unit/1 Ml Vial, 30 UNIT SQ HS for Blood Sugar, (Reported) Entered as Reported by: HOLLI PONCE RN on 10/19/19 005 Last Action: Converted on 11/01/191628 by DEVEN BAZZI MD Lactobacillus Rhamnosus Gg (Culturelle) 1 Each Cap.sprink, 1 CAP PO BID for supplement for 30 Days, #60 Prescribed by: LUANNE OWUSU MD on 10/24/19 1435 Last Action: Continued on 11/01/191628 by DEVEN BAZZI MD Levetiracetam (Keppra) 500 Mg Tablet, 1 TAB PO BID for Seizures for 30 Days, #60 Ref 0 (Reported) Entered as Reported by: ARTEM RUSSELL on 11/19/19 1502 Methocarbamol (Robaxin-750) 750 Mg Tablet, 1 TAB PO TID for MUSCLE SPASMS, #90 Ref 0 (Reported) LAST DOSE AT 1400 (2PM) MAY HAVE THE NEXT DOSE AT 10 PM Entered as Reported by: KHANG SCOTT on 11/09/17 1346 Metoprolol Succinate (Metoprolol Succinate ( Xl )) 100 Mg Tab.er.24h, 50 MG PO HS for FOR HYPERTENSION, #30 Ref 0 (Reported) Entered as Reported by: TARI GONSALES on 05/05/1757 Last Action: Continued on 11/01/191628 by DEVEN BAZZI MD Nystatin (Nystatin) 15 Gm Powder, 1 BRET TP BID, #1 (Reported) Entered as Reported by: Romy Rivera on 11/25/17 2330 Last Action: Continued on 11/01/191628 by DEVEN BAZZI MD Pantoprazole Sodium (Protonix ) 40 Mg Tablet.dr, 40 MG PO DAILY for STOMACH, (Reported) LST DOSE THIS AM NEXT DOSE TOMORROW AM Entered as Reported by: TARI GONSALES on 05/05/1757 Last Action: Continued on 11/01/191628 by DEVEN BAZZI MD Pregabalin (Lyrica) 150 Mg Capsule, 1 CAP PO BID for PAIN, #60 Ref 5 (Reported) Entered as Reported by: HOLLI PONCE RN on 10/19/19 0112 Rivaroxaban (Xarelto) 15 Mg Tablet, 15 MG PO DAILY for BLOOD THINNER, (Reported) Meds not given this hospital admission. May resume home medications as approved by Physician. MAY RESUME WHEN AVAILABLE Entered as Reported by: TARI GONSALES on 05/05/1757 Rosuvastatin Calcium (Crestor) 40 Mg Tablet, 0.5 TAB PO DAILY for HLD, #30 Ref 5 (Reported) Entered as Reported by: HOLLI PONCE RN on 10/19/1941 Last Action: Converted on 11/01/191628 by DEVEN BAZZI MD Sennosides/Docusate Sodium (Senna-Docusate Sodium Tablet) 1 Each Tablet, 1 EACH PO BID for CONSTIPATION, #60 Ref 0 (Reported) LAST DOSE THIS AM NEXT DOSE TONIGHT Entered as Reported by: KHANG SCOTT on 11/09/17 1347 Last Action: Continued on 11/01/191628 by DEVEN BAZZI MD Sucralfate (Carafate) 1 Gm Tablet, 1 TAB PO TID, #120 Ref 3 (Reported) Meds not given this hospital admission. May resume home medications as approved by Physician. MAY TAKE WHEN AVAILABLE Entered as Reported by: TARI GONSALES on 05/05/1757 Last Action: Continued on 11/01/191628 by DEVEN BAZZI MD Scheduled PRN Albuterol Sulfate (Proair Hfa Inhaler) 8.5 Gm Hfa.aer.ad, 1 PUFF INH PRN Q6HRS PRN for SHORTNESS OF BREATH, Ref 0 (Reported) Entered as Reported by: Romy Rivera on 11/25/172329 Last Action: Continued on 11/01/191628 by DEVEN BAZZI MD Linaclotide (Linzess) 145 Mcg Capsule, 145 MCG PO PRN PRN for CONSTIPATION, (Reported) Entered as Reported by: HOLLI PONCE RN on 10/19/1941 Ondansetron Hcl (Ondansetron Hcl) 4 Mg Tablet, 2 TAB PO PRN Q8HRS PRN for NAUSEA/VOMITING, #10 Ref 1 (Reported) Entered as Reported by: Romy Rivera on 11/25/172329 Last Action: Converted on 11/01/191628 by DEVEN BAZZI MD Oxycodone HCl (Roxicodone) 5 Mg Tablet, 1 TAB PO PRN Q6HRS PRN for SEVERE PAIN 7-10, (Reported) Entered as Reported by: ARTEM RUSSELL on 11/19/19 1504 Polyethylene Glycol 3350 (Polyethylene Glycol 3350) 2,500 Gm Powder, 17 GM PO PRN PRN for CONSTIPATION, #255 Ref 0 (Reported) Entered as Reported by: HOLLI PONCE RN on 10/19/19 0042 Last Action: Converted on 11/01/191628 by DEVEN BAZZI MD Tramadol Hcl (Tramadol Hcl) 50 Mg Tablet, 1 TAB PO PRN Q8HRS PRN for PAIN, #30 (Reported) Entered as Reported by: Romy Rivera on 11/25/17 2330 Last Action: Continued on 11/01/191628 by DEVEN BAZZI MD Discontinued Medications Dexamethasone (Dexamethasone) 4 Mg Tablet, 4 MG PO QID for Swelling in head, (Reported) Entered as Reported by: ARTEM RUSSELL on 11/19/19 1452 RAFAEL CAT MD Nov 20, 2019 08:50
--- NOTE | 2019-11-20 08:50 | NUR ---
LORRAINE following pt. [facility] declined to take pt due to acuity. They do not believe they will be able to get pt home in 7-10days. LORRAINE spoke with Ceci at [facility]. She will have their clinical liaison call SWer back. LORRAINE informed Ceci, they will need to sisal picker referral in person since it's large packet. Awaiting on a phone call back.
[2019-11-20] MEDS: DEXAMETHASONE 4 MG TABLET PO SCH ×2 (08:53→21:26)
[2019-11-20] MEDS: INSULIN GLARGINE SYRINGE. SQ SCH ×2 (08:53→21:33)
[2019-11-20] MEDS ORDERED: INSU100I13 SQ (08:54)
[2019-11-20] MEDS ORDERED: INSU100I17 SQ (08:54)
[2019-11-20] MEDS ORDERED: DASA100T PO (08:58)
[2019-11-20] MEDS ORDERED: TRAM50TA PO (08:58)
--- NOTE | 2019-11-20 10:18 | PDOC ---
SUBJECTIVE Subjective S: Had debulking of parietal mass on 11/12, with resultant right-sided weakness still, stable MRI on 11/13, wbc near normal O: Physical exam: Gen.: obese, resting in bed, NAD, R sided weakness, incision at scalp healing Lungs: Breathing comfortably Psychiatric: Pleasant mood and affect Labs: Ferritin 82, iron sat 12%, TIBC low White blood cell 11.3, hemoglobin 9.2, platelets 313 BM showed CML in CP Path Pending from craniotomy, prelim meningioma, poss atyp (suspected clinically), no CML brain mri 11/12 pre op: homogeneously enhancing left parietal convexity extra- axial mass measuring 3.8 x 3.9 x 3.3 cm with associated dural tail. The mass abuts the superior sagittal sinus without definite involvement onthis examination. Associated vasogenic edema with minimal mass effect and midline shift to the right by approximately 8 mm, stable. There is persistent mass effect on the atria of the left lateral ventricle without hydrocephalus. head ct 11/12 post op:Left lateral vertex level hematoma which may represent subdural or epidural hematoma in this postoperative patient. Left vertex intraparenchymal hematomas also are seen. Parafalcine hemorrhage which extends along the left tentorium also noted. Postoperative findings are present with the left vertex level mass no longer being delineated. Left maxillary sinusitis. brain MRI 11/13 MPRESSION: Post left parietal craniotomy with resection of the extra-axial mass from the left parietal region. Residual enhancing mass is seen superiorly and medially within the left region which measures 2.8 cm in size. Intraparenchymal and extra-axial hemorrhage is seen within the left parietal region as discussed above. Edema is seen involving the left parietal lobe. The hemorrhage and edema does not appear significantly changed since the patient's CT scan from yesterday. 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, meningeal involvement is extremely rare especially in chronic phase, can be seen in blast crisis, does not have blast crisis based on bone marrow or on meingioma resection per path Leukocytosis: CML, on dasatinib, cont q day Abdominal Hematoma: Improved w/ stopping anticoagulation, now on ppx only Anemia: transfuse prn Hb <7, suspect AOCI in addition to superficial abdom bleed w/ hematoma, on po Fe Brain mass: per NSG, steroid taper per others, still w/ R weakness, meningioma on path thus far, pending [facility] review h/o clotting: only on ppx lovenox at the moment, can move to full dose anticoagulation soon likely? Dispo: to rehab, we'll f/u as outpt prn Thank you kindly and please do not hesitate to call with questions. OBJECTIVE Vital Signs Vital Signs Date Time Temp Pulse Resp B/P (MAP) Pulse Ox O2 Delivery O2 Flow Rate FiO2 11/20/19 08:44 Room Air 11/20/19 07:25 Room Air 11/20/19 07:22 Room Air 11/20/19 07:00 98.7 59 18 98/59 (72) 95 Room Air 98.7 11/20/19 05:13 95 Room Air 2.0 11/20/19 04:13 95 Room Air 2.0 11/20/19 03:28 95 Room Air 2.0 11/20/19 03:00 98.6 94 18 118/66 (83) 95 Room Air 98.6 11/20/19 02:58 94 Room Air 2.0 11/19/19 23:27 94 Room Air 2.0 11/19/19 23:00 98.8 109 18 104/61 (75) 94 Room Air 98.8 11/19/19 22:57 92 Room Air 2.0 11/19/19 21:55 92 Room Air 2.0 11/19/19 20:55 92 Room Air 2.0 11/19/19 20:00 Room Air 11/19/19 19:00 99.6 111 18 104/60 (75) 92 Room Air 99.6 11/19/19 19:00 92 Room Air 2.0 11/19/19 18:30 95 Room Air 11/19/19 15:00 98.4 103 16 108/66 (80) 95 Room Air 98.4 11/19/19 14:48 98 Room Air 11/19/19 14:06 98 Room Air 11/19/19 13:00 98 Room Air 11/19/19 12:00 98 Room Air 11/19/19 11:00 97.6 95 18 107/48 (67) 98 Room Air 97.6 11/19/19 10:30 98 Room Air I & O Intake and Output 11/20/19 07:00 Intake Total 100 ml Balance 100 ml Intake Oral 100 ml # Voids 3 # Bowel Movements 2 COMMENT Lab Laboratory Tests Test 11/19/19 11:44 11/19/19 16:37 11/19/19 20:26 11/20/19 04:22 Glucose (Fingerstick) 183 mg/dL (70-99) 112 mg/dL (70-99) 102 mg/dL (70-99) 173 mg/dL (70-99) Test 11/20/19 05:35 11/20/19 07:38 White Blood Count 11.3 x10^3/uL (4.0-11.0) Red Blood Count 3.06 x10^6/uL (3.50-5.40) Hemoglobin 9.2 g/dL (12.0-15.5) Hematocrit 28.7 % (36.0-47.0) Mean Corpuscular Volume 94 fL (79-100) Mean Corpuscular Hemoglobin 30 pg (25-35) Mean Corpuscular Hemoglobin Concent 32 g/dL (31-37) Red Cell Distribution Width 19.6 % (11.5-14.5) Platelet Count 313 x10^3/uL (140-400) Neutrophils (%) (Auto) 92 % (31-73) Lymphocytes (%) (Auto) 5 % (24-48) Monocytes (%) (Auto) 2 % (0-9) Eosinophils (%) (Auto) 0 % (0-3) Basophils (%) (Auto) 0 % (0-3) Neutrophils # (Auto) 10.4 x10^3/uL (1.8-7.7) Lymphocytes # (Auto) 0.6 x10^3/uL (1.0-4.8) Monocytes # (Auto) 0.2 x10^3/uL (0.0-1.1) Eosinophils # (Auto) 0.0 x10^3/uL (0.0-0.7) Basophils # (Auto) 0.0 x10^3/uL (0.0-0.2) Segmented Neutrophils % 94 % (35-66) Band Neutrophils % 2 % (0-9) Lymphocytes % 1 % (24-48) Monocytes % 1 % (0-10) Metamyelocytes % 2 % (0-0) Toxic Granulation Slight Platelet Estimate Adequate (ADEQUATE) Polychromasia Mod Anisocytosis Mod Tear Drop Cells Few Glucose (Fingerstick) 176 mg/dL (70-99) Nutrition Consultation Dietary Evaluation: Recommendations by RD: Dietary education by RD, Increase Calorie Intake, Protein supplementation Comments: REC ADA/cardiac diet ,glucerna tid Expected Outcomes/Goals: PO intake to meet >75% est needs- met at times, goal ongoing Interpretation of weight loss: >5% in 1 month Malnutrition Findings: Food and Nutrition Intake (Sev: <50% est energy req 5days Weight Status: Morbidly Obese ENEDELIA HUYNH MD Nov 20, 2019 10:18
[2019-11-20 11:00] VITALS: BP 102/58
--- NOTE | 2019-11-20 12:06 | NUR ---
LORRAINE following pt. LORRAINE provided referral packet to [facility] from [facility]. Referral also faxed to rehab. Pt acceptance and admission pending. Discussed with Pt in Length at bedside.
--- NOTE | 2019-11-20 12:14 | PN ---
DATE: 11/19/2019 CHIEF COMPLAINT: Postop meningioma resection with right hemiparesis. HISTORY OF PRESENT ILLNESS: The patient is a pleasant 49-year-old female who underwent a resection of her meningioma last week. She has residual right sided paralysis. Currently being examined on the medical floor where she is hoping to go to [facility] later today. PHYSICAL EXAMINATION: VITAL SIGNS: Stable. GENERAL: She is alert, cooperative, working with physical therapy. His therapist name is Junior. He does show me that she is now starting to move her right side a little bit. HEART: Distant S1, S2. LUNGS: Clear to auscultation. ABDOMEN: Soft. EXTREMITIES: No edema. ASSESSMENT AND PLAN: Postop meningioma resection. We will discharge to [facility] if it can be arranged today. [facility]. Activity as tolerated. For now, until she is actually discharged, we will continue our wound care, IV steroids, home meds, deep venous thrombosis prophylaxis. VANGIE MAC DO DR: NAYLA/violetta JOB#: [id number] / [id number]
--- NOTE | 2019-11-20 13:43 | PDOC ---
PROGRESS NOTES Subjective Subjective Denies acute changes. Discharge to a rehab facility pending insurance issues. Objective Objective Vital Signs Date Time Temp Pulse Resp B/P (MAP) Pulse Ox O2 Delivery O2 Flow Rate FiO2 11/20/19 12:49 Room Air 11/20/19 11:00 98.7 99 18 102/58 (73) 95 98.7 11/20/19 05:13 2.0 Intake and Output 11/20/19 07:00 Intake Total 100 ml Balance 100 ml Intake Oral 100 ml # Voids 3 # Bowel Movements 2 Physical Exam Physical Exam AAOx4, NAD, speech stable, strength unchanged compared to yesterday, sensation unchanged compared to yesterday. Assessment Assessment Problems Medical Problems: (1) Abdominal hemorrhage Status: Acute (2) Generalized weakness Status: Acute (3) Lactic acidosis Status: Acute (4) Leukocytosis Status: Acute Plan Plan of Care -continue therapies and supportive care -steroid taper to off over four weeks -d/c edd 7-10days -rehab transfer pending insurance issues Comment Review of Relevant I have reviewed the following items mustapha (where applicable) has been applied. Labs Laboratory Tests Test 11/18/19 16:42 11/18/19 20:29 11/19/19 07:13 11/19/19 11:44 Glucose (Fingerstick) 102 mg/dL (70-99) 269 mg/dL (70-99) 204 mg/dL (70-99) 183 mg/dL (70-99) Test 11/19/19 16:37 11/19/19 20:26 11/20/19 04:22 11/20/19 05:35 Glucose (Fingerstick) 112 mg/dL (70-99) 102 mg/dL (70-99) 173 mg/dL (70-99) White Blood Count 11.3 x10^3/uL (4.0-11.0) Red Blood Count 3.06 x10^6/uL (3.50-5.40) Hemoglobin 9.2 g/dL (12.0-15.5) Hematocrit 28.7 % (36.0-47.0) Mean Corpuscular Volume 94 fL (79-100) Mean Corpuscular Hemoglobin 30 pg (25-35) Mean Corpuscular Hemoglobin Concent 32 g/dL (31-37) Red Cell Distribution Width 19.6 % (11.5-14.5) Platelet Count 313 x10^3/uL (140-400) Neutrophils (%) (Auto) 92 % (31-73) Lymphocytes (%) (Auto) 5 % (24-48) Monocytes (%) (Auto) 2 % (0-9) Eosinophils (%) (Auto) 0 % (0-3) Basophils (%) (Auto) 0 % (0-3) Neutrophils # (Auto) 10.4 x10^3/uL (1.8-7.7) Lymphocytes # (Auto) 0.6 x10^3/uL (1.0-4.8) Monocytes # (Auto) 0.2 x10^3/uL (0.0-1.1) Eosinophils # (Auto) 0.0 x10^3/uL (0.0-0.7) Basophils # (Auto) 0.0 x10^3/uL (0.0-0.2) Segmented Neutrophils % 94 % (35-66) Band Neutrophils % 2 % (0-9) Lymphocytes % 1 % (24-48) Monocytes % 1 % (0-10) Metamyelocytes % 2 % (0-0) Toxic Granulation Slight Platelet Estimate Adequate (ADEQUATE) Polychromasia Mod Anisocytosis Mod Tear Drop Cells Few Test 11/20/19 07:38 11/20/19 10:59 Glucose (Fingerstick) 176 mg/dL (70-99) 246 mg/dL (70-99) Laboratory Tests Test 11/19/19 16:37 11/19/19 20:26 11/20/19 04:22 11/20/19 05:35 Glucose (Fingerstick) 112 mg/dL (70-99) 102 mg/dL (70-99) 173 mg/dL (70-99) White Blood Count 11.3 x10^3/uL (4.0-11.0) Red Blood Count 3.06 x10^6/uL (3.50-5.40) Hemoglobin 9.2 g/dL (12.0-15.5) Hematocrit 28.7 % (36.0-47.0) Mean Corpuscular Volume 94 fL (79-100) Mean Corpuscular Hemoglobin 30 pg (25-35) Mean Corpuscular Hemoglobin Concent 32 g/dL (31-37) Red Cell Distribution Width 19.6 % (11.5-14.5) Platelet Count 313 x10^3/uL (140-400) Neutrophils (%) (Auto) 92 % (31-73) Lymphocytes (%) (Auto) 5 % (24-48) Monocytes (%) (Auto) 2 % (0-9) Eosinophils (%) (Auto) 0 % (0-3) Basophils (%) (Auto) 0 % (0-3) Neutrophils # (Auto) 10.4 x10^3/uL (1.8-7.7) Lymphocytes # (Auto) 0.6 x10^3/uL (1.0-4.8) Monocytes # (Auto) 0.2 x10^3/uL (0.0-1.1) Eosinophils # (Auto) 0.0 x10^3/uL (0.0-0.7) Basophils # (Auto) 0.0 x10^3/uL (0.0-0.2) Segmented Neutrophils % 94 % (35-66) Band Neutrophils % 2 % (0-9) Lymphocytes % 1 % (24-48) Monocytes % 1 % (0-10) Metamyelocytes % 2 % (0-0) Toxic Granulation Slight Platelet Estimate Adequate (ADEQUATE) Polychromasia Mod Anisocytosis Mod Tear Drop Cells Few Test 11/20/19 07:38 11/20/19 10:59 Glucose (Fingerstick) 176 mg/dL (70-99) 246 mg/dL (70-99) Microbiology 11/10/19 Urine Culture - Final, Complete 11/10/19 Urine Culture Result 1 (СВЕТЛАНА) - Final, Complete 11/10/19 Antimicrobic Susceptibility - Final, Complete 11/01/19 Blood Culture - Final, Complete NO GROWTH AFTER 5 DAYS Medications Current Medications Sodium Chloride 500 ml @ 500 mls/hr 1X ONCE IV Last administered on 11/01/19at 13:00; Start 11/01/19 at 13:00; Stop 11/01/19 at 13:59; Status DC Ondansetron HCl (Zofran) 4 mg 1X ONCE IV Last administered on 11/01/19at 13:26; Start 11/01/19 at 13:00; Stop 11/01/19 at 13:13; Status DC Hydromorphone HCl (Dilaudid) 0.5 mg 1X STAT IVP Last administered on 11/01/19at 13:26; Start 11/01/19 at 12:59; Stop 11/01/19 at 13:13; Status DC Iohexol (Omnipaque 300 Mg/ml) 75 ml 1X ONCE IV Last administered on 11/01/19 14:08; Start 11/01/19 at 13:45; Stop 11/01/19 at 13:46; Status DC Info (CONTRAST GIVEN -- Rx MONITORING) 1 each PRN DAILY PRN MC SEE COMMENTS; Start 11/01/19 at 14:00; Stop 11/03/19 at 13:59; Status DC Hydromorphone HCl (Dilaudid) 0.5 mg 1X STAT IVP Last administered on 1 01/02/19at 16:53; Start 11/01/19 at 16:21; Stop 11/01/19 at 16:23; Status DC Sodium Chloride 1,000 ml @ 1,000 mls/hr 1X ONCE IV Last administered on 11/01/19at 16:30; Start 11/01/19 at 16:30; Stop 11/01/19 at 17:29; Status DC Sodium Chloride 500 ml @ 500 mls/hr 1X ONCE IV Last administered on 11/01/19at 16:30; Start 11/01/19 at 16:30; Stop 11/01/19 at 17:29; Status DC Albuterol Sulfate (Ventolin Neb Soln) 2.5 mg PRN Q6HRS PRN INH SHORTNESS OF BREATH; Start 11/01/19 at 16:30; Status Cancel Alprazolam (Xanax) 0.25 mg PRN TID PRN PO anxiety; Start 11/01/19 at 16:30; Stop 11/01/19 at 17:11; Status DC Amlodipine Besylate (Norvasc) 5 mg DAILY PO Last administered on 11/16/19at 08:47; Start 11/02/19 at 09:00; Stop 11/18/19 at 09:18; Status DC Cyclosporine (Restasis) 1 drop BID OU Last administered on 11/20/19at 08:44; Start 11/01/19 at 21:00 Fluticasone Propionate (Flonase) 2 spray DAILY NS Last administered on 11/20/19at 08:44; Start 11/02/19 at 09:00 Lactobacillus Rhamnosus (Culturelle) 1 cap BID PO Last administered on 11/09/19 08:28; Start 11/01/19 at 21:00; Stop 11/09/19 at 16:57; Status DC Lidocaine (Lidoderm) 1 patch DAILY TP ; Start 11/02/19 at 09:00; Stop 11/01/19 at 20:34; Status DC Metoprolol Succinate (Toprol Xl) 100 mg HS PO Last administered on 11/17/19 21:05; Start 11/01/19 at 21:00; Stop 11/18/19 at 09:18; Status DC Nystatin (Nystop) 1 raza BID TP Last administered on 11/20/19 08:43; Start 11/01/19 at 21:00 Pantoprazole Sodium (Protonix) 40 mg DAILYAC PO Last administered on 11/09/19 08:28; Start 11/02/19 at 07:30; Stop 11/09/19 at 16:54; Status DC Senna/Docusate Sodium (Senna Plus) 1 tab BID PO Last administered on 11/18/19 09:37; Start 11/01/19 at 21:00 Sucralfate (Carafate) 1 gm TIDAC PO Last administered on 11/20/19 12:18; Start 11/01/19 at 17:30 Tramadol HCl (Ultram) 50 mg PRN Q8HRS PRN PO PAIN; Start 11/01/19 at 16:30; Stop 11/01/19 at 19:43; Status DC Insulin Glargine (Lantus Syringe) 30 unit QHS SQ Last administered on 11/06/19 21:16; Start 11/01/19 at 21:00; Stop 11/07/19 at 15:56; Status DC Ondansetron HCl (Zofran Odt) 8 mg PRN Q8HRS PRN PO NAUSEA/VOMITING Last administered on 11/17/19 12:12; Start 11/01/19 at 17:15 Polyethylene Glycol (miraLAX PACKET) 17 gm PRN DAILY PRN PO CONSTIPATION, 1ST CHOICE Last administered on 11/17/19 08:30; Start 11/01/19 at 17:11 Atorvastatin Calcium (Lipitor) 80 mg QHS PO Last administered on 11/19/19at 20:54; Start 11/01/19 at 21:00 Insulin Human Lispro (HumaLOG) 0-9 UNITS TIDAC SQ Last administered on 11/07/19at 12:20; Start 11/01/19 at 16:30; Stop 11/07/19 at 15:56; Status DC Dextrose (Dextrose 50%-Water Syringe) 12.5 gm PRN Q15MIN PRN IV SEE COMMENTS; Start 11/01/19 at 16:30; Stop 11/12/19 at 15:36; Status DC Ondansetron HCl (Zofran) 4 mg PRN Q8HRS PRN IV NAUSEA/VOMITING; Start 11/01/19 at 16:30; Stop 11/02/19 at 16:29; Status DC Alprazolam (Xanax) 0.25 mg PRN TID PRN PO anxiety Last administered on 11/20/19 08:44; Start 11/01/19 at 17:11 Miscellaneous (Lidoderm Patch Removal) 1 ea QHS MC ; Start 11/01/19 at 21:00; Stop 11/01/19 at 20:34; Status DC Ceftriaxone Sodium (Rocephin) 1 gm QHS IVP Last administered on 11/15/19at 21:26; Start 11/01/19 at 18:45; Stop 11/16/19 at 08:52; Status DC Tramadol HCl (Ultram) 50 mg PRN Q8HRS PRN PO MILD PAIN 1-3 Last administered on 11/15/19at 17:56; Start 11/01/19 at 19:45 Hydromorphone HCl (Dilaudid) 1 mg PRN Q4HRS PRN IV SEVERE PAIN Last administered on 11/20/19 12:18; Start 11/01/19 at 20:15 Lidocaine (Lidoderm) 1 patch QHS TP Last administered on 11/18/19 20:49; Start 11/01/19 at 21:00 Miscellaneous (Lidoderm Patch Removal) 1 ea DAILY MC Last administered on 11/18/19at 09:00; Start 11/02/19 at 09:00 Albumin Human 500 ml @ 125 mls/hr 1X ONCE IV ; Start 11/02/19 at 02:00; Stop 11/02/19 at 05:59; Status Cancel Acetaminophen (Tylenol) 650 mg 1X PRN PRN PO PRE-TRANSFUSION; Start 11/02/19 a t 06:45; Stop 11/03/19 at 14:16; Status DC Diphenhydramine HCl (Benadryl Oral Elixir) 12.5 mg 1X PRN PRN PO PRE- TRANSFUSION; Start 11/02/19 at 06:45; Stop 11/03/19 at 14:16; Status DC Diphenhydramine HCl (Benadryl) 25 mg PRN 1X PRN PO PRE-TRANSFUSION; Start 11/02/19 at 06:45; Stop 11/03/19 at 14:16; Status DC Lactulose (LACTULOSE 300ML for RECTAL) 200 gm Q6HRS [place] Last administered on 11/02/19at 18:00; Start 11/02/19 at 18:00; Stop 11/04/19 at 14:44; Status DC Sodium Chloride 1,000 ml @ 100 mls/hr Q10H IV Last administered on 11/13/19at 15:30; Start 11/02/19 at 12:00; Stop 11/14/19 at 11:28; Status DC Lactulose (Lactulose) 20 gm PRN DAILY PRN PO CONSTIPATION, 2ND CHOICE; Start 11/04/19 at 14:45 Oxycodone HCl (Roxicodone) 5 mg PRN Q6HRS PRN PO MODERATE TO SEVERE PAIN Last administered on 11/20/19at 04:13; Start 11/04/19 at 14:45 Lidocaine HCl (Buffered Lidocaine 1%) 3 ml STK-MED ONCE .ROUTE ; Start 11/05/19 at 08:13; Stop 11/05/19 at 08:13; Status DC Lidocaine HCl (Buffered Lidocaine 1%) 3 ml STK-MED ONCE .ROUTE ; Start 11/05/19 at 08:14; Stop 11/05/19 at 08:14; Status DC Midazolam HCl (Versed) 2 mg STK-MED ONCE .ROUTE ; Start 11/05/19 at 08:40; Stop 11/05/19 at 08:40; Status DC Fentanyl Citrate (Fentanyl 2ml Vial) 100 mcg STK-MED ONCE .ROUTE ; Start 11/05/19 at 08:40; Stop 11/05/19 at 08:41; Status DC Lidocaine HCl (Buffered Lidocaine 1%) 3 ml 1X ONCE IJ Last administered on 11/05/19at 08:45; Start 11/05/19 at 08:45; Stop 11/05/19 at 08:50; Status DC Midazolam HCl (Versed) 2 mg 1X ONCE IV Last administered on 11/05/19at 08:45; Start 11/05/19 at 08:45; Stop 11/05/19 at 08:50; Status DC Fentanyl Citrate (Fentanyl 2ml Vial) 100 mcg 1X ONCE IV Last administered on 11/05/19at 08:45; Start 11/05/19 at 08:45; Stop 11/05/19 at 08:50; Status DC Dexamethasone Sodium Phosphate (Decadron) 4 mg Q6HRS IVP Last administered on 11/17/19at 06:03; Start 11/06/19 at 09:00; Stop 11/17/19 at 08:53; Status DC Insulin Glargine (Lantus Syringe) 40 unit QHS SQ Last administered on at 21:00; Start 11/07/19 at 21:00; Stop 11/16/19 at 08:53; Status DC Insulin Human Lispro (HumaLOG) 10 units TIDAC SQ Last administered on 11/14/19at 17:31; Start 11/07/19 at 16:30; Stop 11/15/19 at 08:16; Status DC Insulin Human Lispro (HumaLOG) 0-9 UNITS TIDWMEALS SQ Last administered on 11/11/19at 17:13; Start 11/07/19 at 17:00; Stop 11/12/19 at 15:37; Status DC Insulin Human Lispro (HumaLOG) 19 units 1X ONCE SQ Last administered on 11/09/19at 12:41; Start 11/09/19 at 12:15; Stop 11/09/19 at 12:16; Status DC Insulin Human Lispro (HumaLOG) 5 units 1X ONCE SQ Last administered on 11/09/19at 13:52; Start 11/09/19 at 13:30; Stop 11/09/19 at 13:31; Status DC Non-Formulary Medication 1 ea DAILY PO ; Start 11/09/19 at 16:30; Status Ca ncel Ondansetron HCl (Zofran) 4 mg PRN Q6HRS PRN IV NAUSEA/VOMITING; Start 11/12/19 at 07:00; Stop 11/12/19 at 19:56; Status DC Fentanyl Citrate (Fentanyl 2ml Vial) 25 mcg PRN Q5MIN PRN IV MILD PAIN 1-3; Start 11/12/19 at 07:00; Stop 11/12/19 at 19:56; Status DC Fentanyl Citrate (Fentanyl 2ml Vial) 50 mcg PRN Q5MIN PRN IV MODERATE TO SEVERE PAIN; Start 11/12/19 at 07:00; Stop 11/12/19 at 19:56; Status DC Morphine Sulfate (Morphine Sulfate) 1 mg PRN Q10MIN PRN IV SEVERE PAIN 7-10; Start 11/12/19 at 07:00; Stop 11/09/19 at 17:30; Status DC Ringer's Solution 1,000 ml @ 30 mls/hr Q24H IV Last administered on 11/12/19at 10:00; Start 11/12/19 at 07:00; Stop 11/12/19 at 18:59; Status DC Lidocaine HCl (Xylocaine-Mpf 1% 2ml Vial) 2 ml PRN 1X PRN ID PRIOR TO IV START; Start 11/12/19 at 07:00; Stop 11/12/19 at 19:56; Status DC Hydromorphone HCl (Dilaudid) 0.5 mg PRN Q10MIN PRN IV SEV PAIN, Second choice; Start 11/12/19 at 07:00; Stop 11/12/19 at 19:56; Status DC Prochlorperazine Edisylate (Compazine) 5 mg PACU PRN PRN IV NAUSEA, MRX1; Start 11/12/19 at 07:00; Stop 11/12/19 at 19:56; Status DC Pantoprazole Sodium (Protonix) 40 mg DAILYAC PO Last administered on 11/14/19at 08:19; Start 11/09/19 at 18:30; Stop 11/15/19 at 09:25; Status DC Levetiracetam (Keppra) 500 mg BID PO Last administered on 11/20/19at 08:44; Start 11/09/19 at 21:00 Non-Formulary Medication 1 ea DAILY PO Last administered on 11/20/19at 08:44; Start 11/12/19 at 09:00 Insulin Human Lispro (HumaLOG) 8 units 1X ONCE SQ Last administered on 11/10/19at 12:32; Start 11/10/19 at 12:15; Stop 11/10/19 at 12:16; Status DC Propofol 20 ml @ As Directed STK-MED ONCE IV ; Start 11/12/19 at 07:48; Stop 11/12/19 at 07:48; Status DC Dexamethasone Sodium Phosphate (Decadron) 20 mg STK-MED ONCE .ROUTE ; Start 11/12/19 at 07:48; Stop 11/12/19 at 07:48; Status DC Lidocaine HCl (Lidocaine Pf 2% Vial) 5 ml STK-MED ONCE .ROUTE ; Start 11/12/19 at 07:48; Stop 11/12/19 at 07:48; Status DC Ondansetron HCl (Zofran) 4 mg STK-MED ONCE .ROUTE ; Start 11/12/19 at 07:48; Stop 11/12/19 at 07:48; Status DC Phenylephrine HCl (Tony-Synephrine Inj) 10 mg STK-MED ONCE .ROUTE ; Start 11/12/19 at 07:48; Stop 11/12/19 at 07:48; Status DC Propofol 50 ml @ As Directed STK-MED ONCE IV ; Start 11/12/19 at 07:48; Stop 11/12/19 at 07:48; Status DC Rocuronium Prospect (Zemuron) 50 mg STK-MED ONCE .ROUTE ; Start 11/12/19 at 07:48; Stop 11/12/19 at 07:48; Status DC Remifentanil HCl (Ultiva) 2 mg STK-MED ONCE IV ; Start 11/12/19 at 07:48; Stop 11/12/19 at 07:49; Status DC Sodium Chloride (SODIUM CHLORIDE 20ml) 20 ml STK-MED ONCE IJ ; Start 11/12/19 at 07:49; Stop 11/12/19 at 07:49; Status DC Multi-Ingred Cream/Lotion/Oil/ Oint (Artificial Tears Eye Ointment) 7 raza STK- MED ONCE .ROUTE ; Start 11/12/19 at 07:49; Stop 11/12/19 at 07:49; Status DC Bacitracin 22431 unit/Sodium Chloride 1,000 ml @ 1,000 mls/hr 1X ONCE IRR Last administered on 11/12/19 11:26; Start 11/12/19 at 07:57; Stop 11/12/19 at 08:56; Status DC Sodium Chloride (SODIUM CHLORIDE 20ml) 20 ml STK-MED ONCE IJ ; Start 11/12/19 at 07:57; Stop 11/12/19 at 07:57; Status DC Gelatin (Gelfoam Size 100) 1 each STK-MED ONCE .ROUTE Last administered on 11/12/19 11:26; Start 11/12/19 at 07:59; Stop 11/12/19 at 07:59; Status DC Cellulose (Surgicel Hemostat 4x8) 1 each STK-MED ONCE .ROUTE Last administered on 11/12/19 12:01; Start 11/12/19 at 07:59; Stop 11/12/19 at 08:00; Status DC Lidocaine/ Epinephrine (LIDOCAINE 1%-EPI 1:100,000 Multi-Dose) 20 ml STK-MED ONCE .ROUTE Last administered on 11/12/19 11:26; Start 11/12/19 at 07:59; Stop 11/12/19 at 08:00; Status DC Thrombin 20,000 unit STK-MED ONCE TP Last administered on 11/12/19 11:26; Start 11/12/19 at 08:00; Stop 11/12/19 at 08:00; Status DC Bacitracin (Bacitracin Zinc Oint Pkt) 1 pkt STK-MED ONCE TP ; Start 11/12/19 at 08:00; Stop 11/12/19 at 08:00; Status DC Propofol 100 ml @ As Directed STK-MED ONCE IV ; Start 11/12/19 at 08:02; Stop 11/12/19 at 08:02; Status DC Insulin Human Lispro (HumaLOG) 11 units 1X ONCE SQ Last administered on 11/12/19 08:15; Start 11/12/19 at 08:15; Stop 11/12/19 at 08:16; Status DC Gadoterate Meglumine (Dotarem) 24.8 ml 1X ONCE IVP Last administered on 11/12/19 08:15; Start 11/12/19 at 08:15; Stop 11/12/19 at 08:16; Status DC Insulin Human Regular 100 unit/ Sodium Chloride 101 ml @ 12.484 mls/ hr ONCE ONCE IV ; Start 11/12/19 at 08:15; Stop 11/12/19 at 16:20; Status DC Desflurane (Suprane) 90 ml STK-MED ONCE IH ; Start 11/12/19 at 08:11; Stop 11/12/19 at 08:11; Status DC Fentanyl Citrate (Fentanyl 2ml Vial) 100 mcg STK-MED ONCE .ROUTE ; Start 11/12/19 at 08:20; Stop 11/12/19 at 08:20; Status DC Midazolam HCl (Versed) 2 mg STK-MED ONCE .ROUTE ; Start 11/12/19 at 08:20; Stop 11/12/19 at 08:20; Status DC Rocuronium Prospect (Zemuron) 50 mg STK-MED ONCE .ROUTE ; Start 11/12/19 at 09:11; Stop 11/12/19 at 09:12; Status DC Mannitol (Mannitol) 12.5 g STK-MED ONCE .ROUTE ; Start 11/12/19 at 09:22; Stop 11/12/19 at 09:23; Status DC Propofol 100 ml @ As Directed STK-MED ONCE IV ; Start 11/12/19 at 09:22; Stop 11/12/19 at 09:23; Status DC Lidocaine HCl (Xylocaine-Mpf 1% 2ml Vial) 2 ml STK-MED ONCE .ROUTE ; Start 11/12/19 at 09:24; Stop 11/12/19 at 09:24; Status DC Cefazolin Sodium 3 gm/Dextrose 100 ml @ 200 mls/hr 1X PREOP ONCE IV Last administered on 11/12/19at 10:53; Start 11/12/19 at 10:30; Stop 11/12/19 at 10:59; Status DC Gelatin (Gelfoam Size 12-7mm) 1 each STK-MED ONCE .ROUTE Last administered on 11/12/19at 12:03; Start 11/12/19 at 11:59; Stop 11/12/19 at 12:01; Status DC Thrombin 20,000 unit STK-MED ONCE TP Last administered on 11/12/19at 12:04; Start 11/12/19 at 12:00; Stop 11/12/19 at 12:01; Status DC Gelatin (Gelfoam Size 100) 1 each STK-MED ONCE .ROUTE Last administered on 11/12/19at 12:25; Start 11/12/19 at 12:26; Stop 11/12/19 at 12:26; Status DC Gelatin (Gelfoam Size 12-7mm) 1 each STK-MED ONCE .ROUTE Last administered on 11/12/19at 13:35; Start 11/12/19 at 13:32; Stop 11/12/19 at 13:33; Status DC Thrombin 20,000 unit STK-MED ONCE TP Last administered on 11/12/19at 13:35; Start 11/12/19 at 13:32; Stop 11/12/19 at 13:33; Status DC Gelatin (Gelfoam Size 12-7mm) 1 each STK-MED ONCE .ROUTE Last administered on 11/12/19at 13:55; Start 11/12/19 at 13:55; Stop 11/12/19 at 13:55; Status DC Gelatin (Gelfoam Size 12-7mm) 1 each STK-MED ONCE .ROUTE Last administered on 11/12/19at 13:59; Start 11/12/19 at 13:59; Stop 11/12/19 at 13:59; Status DC Labetalol HCl (Normodyne Iv Push) 5 mg PRN Q15MIN PRN IVP HYPERTENSION; Start 11/12/19 at 15:15 Nicardipine HCl 50 mg/Sodium Chloride 250 ml @ 25 mls/hr TITRATE PRN IV SBP 90-140; Start 11/12/19 at 15:15; Stop 11/15/19 at 08:16; Status DC Hydralazine HCl (Apresoline Inj) 5 mg PRN Q6HRS PRN IVP TO KEEP SBP<140mmHg; Start 11/12/19 at 15:15 Al Hydroxide/Mg Hydroxide (Mylanta Plus Xs) 30 ml PRN Q3HRS PRN PO HEARTBURN / GAS; Start 11/12/19 at 15:15 Calcium Carbonate/ Glycine (Tums) 500 mg PRN Q3HRS PRN PO INDIGESTION; Start 11/12/19 at 15:15 Diphenhydramine HCl (Benadryl) 25 mg PRN Q6HRS PRN PO ITCHING; Start 11/12/19 at 15:15 Diphenhydramine HCl (Benadryl) 25 mg PRN Q6HRS PRN IV ITCHING; Start 11/12/19 at 15:15 Sodium Chloride (Normal Saline Flush) 3 ml QSHIFT PRN IV AFTER MEDS AND BLOOD DRAWS; Start 11/12/19 at 15:15 Insulin Human Lispro (HumaLOG) 0-5 UNITS TIDWMEALS SQ Last administered on 11/17/19at 08:39; Start 11/12/19 at 17:00; Stop 11/17/19 at 08:54; Status DC Dextrose (Dextrose 50%-Water Syringe) 12.5 gm PRN Q15MIN PRN IV SEE COMMENTS; Start 11/12/19 at 15:15 Dextrose (Iv Dextrose 5%) 250 ml PRN Q15MIN PRN IV SEE COMMENTS; Start 11/12/19 at 15:15; Stop 11/18/19 at 08:17; Status DC Hydromorphone HCl (Dilaudid) 0.2 mg PRN Q1HR PRN IV MODERATE PAIN Last administered on 11/19/19at 03:58; Start 11/12/19 at 15:15 Insulin Human Lispro (HumaLOG VIAL for OP,RR ONLY) 0-10 units PRN Q1HR PRN SQ PER PROTOCOL Last administered on 11/12/19at 15:50; Start 11/12/19 at 16:00; Stop 11/12/19 at 19:54; Status DC Insulin Human Lispro (HumaLOG VIAL for OP,RR ONLY) 4 unit 1X ONCE SQ ; Start 11/12/19 at 16:45; Stop 11/12/19 at 16:46; Status DC Ferrous Sulfate (Iron Oral Solution) 300 mg QD PO Last administered on 11/20/19at 08:44; Start 11/13/19 at 10:00 Gadoterate Meglumine (Dotarem) 10 ml 1X ONCE IVP Last administered on 11/13/19at 15:00; Start 11/13/19 at 14:45; Stop 11/13/19 at 14:48; Status DC Gadoterate Meglumine (Dotarem) 15 ml 1X ONCE IVP Last administered on 11/13/19at 15:00; Start 11/13/19 at 14:45; Stop 11/13/19 at 14:48; Status DC Insulin Human Lispro (HumaLOG) 15 units TIDAC SQ Last administered on 11/15/19at 17:08; Start 11/15/19 at 08:15; Stop 11/16/19 at 08:53; Status DC Insulin Glargine (Lantus Syringe) 20 unit DAILY SQ Last administered on 11/15/19at 09:20; Start 11/15/19 at 09:00; Stop 11/16/19 at 08:53; Status DC Enoxaparin Sodium (Lovenox 40mg Syringe) 40 mg Q12H SQ Last administered on 11/15/19at 23:36; Start 11/15/19 at 10:00; Stop 11/16/19 at 07:50; Status DC Enoxaparin Sodium (Lovenox 40mg Syringe) 40 mg DAILY SQ Last administered on 11/20/19at 08:43; Start 11/16/19 at 09:00 Meropenem 1 gm/ Sodium Chloride 100 ml @ 200 mls/hr Q8HRS IV ; Start 11/16/19 at 14:00; Stop 11/16/19 at 12:31; Status DC Insulin Glargine (Lantus Syringe) 40 unit BID SQ Last administered on 11/20/19at 08:53; Start 11/16/19 at 09:00 Insulin Human Lispro (HumaLOG) 20 units TIDAC SQ Last administered on 11/18/19at 08:35; Start 11/16/19 at 11:30; Stop 11/18/19 at 09:19; Status DC Insulin Glargine (Lantus Syringe) 20 unit 1X ONCE SQ Last administered on 11/16/19at 09:48; Start 11/16/19 at 09:15; Stop 11/16/19 at 09:16; Status DC Fosfomycin Tromethamine (Monurol) 3 gm 1X ONCE PO Last administered on 11/16/19at 12:49; Start 11/16/19 at 12:30; Stop 11/16/19 at 12:33; Status DC Fosfomycin Tromethamine (Monurol) 3 gm 1X ONCE PO Last administered on 11/18/19at 09:57; Start 11/18/19 at 09:00; Stop 11/18/19 at 09:01; Status DC Dexamethasone (Decadron) 4 mg QID PO Last administered on 11/19/19at 20:55; Start 11/17/19 at 13:00; Stop 11/20/19 at 08:47; Status DC Insulin Human Lispro (HumaLOG) 0-9 UNITS TIDWMEALS SQ Last administered on 11/20/19at 12:22; Start 11/17/19 at 12:00 Dextrose (Dextrose 50%-Water Syringe) 12.5 gm PRN Q15MIN PRN IV SEE COMMENTS; Start 11/17/19 at 09:00; Status UNV Dextrose (Iv Dextrose 5%) 250 ml PRN Q15MIN PRN IV SEE COMMENTS; Start 11/17/19 at 09:00 Metoprolol Succinate (Toprol Xl) 50 mg HS PO ; Start 11/18/19 at 21:00 Insulin Human Lispro (HumaLOG) 30 units TIDAC SQ Last administered on 11/20/19at 12:22; Start 11/18/19 at 09:30 Dexamethasone (Decadron) 4 mg BID PO ; Start 11/20/19 at 09:00 Active Scripts Active Sprycel (Dasatinib) 100 Mg Tablet 100 Mg PO BID 30 Days Tramadol Hcl 50 Mg Tablet 50 Mg PO PRN Q8HRS PRN Novolog Flexpen (Insulin Aspart) 100 Unit/1 Ml Insuln.pen 30 Unit SQ TID 30 Days Lantus Solostar (Insulin Glargine,Hum.rec.anlog) 100 Unit/1 Ml Insuln.pen 40 Unit SQ BID Decadron (Dexamethasone) 4 Mg Tablet 1 Tab PO BID 3 Days Culturelle (Lactobacillus Rhamnosus Gg) 1 Each Cap.sprink 1 Cap PO BID 30 Days Reported Roxicodone (Oxycodone HCl) 5 Mg Tablet 1 Tab PO PRN Q6HRS PRN Ferrous Sulfate 325 Mg Tablet 1 Tab PO DAILY Keppra (Levetiracetam) 500 Mg Tablet 1 Tab PO BID 30 Days Cymbalta (Duloxetine Hcl) 60 Mg Capsule.dr 1 Cap PO BID Lyrica (Pregabalin) 150 Mg Capsule 1 Cap PO BID Crestor (Rosuvastatin Calcium) 40 Mg Tablet 0.5 Tab PO DAILY Polyethylene Glycol 3350 2,500 Gm Powder 17 Gm PO PRN PRN Xanax (Alprazolam) 1 Mg Tablet 1 Tab PO TID Restasis (Cyclosporine) 1 Each Droperette 1 Drop EACHEYE BID Proair Hfa Inhaler (Albuterol Sulfate) 8.5 Gm Hfa.aer.ad 1 Puff INH PRN Q6HRS PRN Ondansetron Hcl 4 Mg Tablet 2 Tab PO PRN Q8HRS PRN Nystatin 15 Gm Powder 1 Raza TP BID Fluticasone Propionate Nasal [place] (Fluticasone Propionate) 16 Gm [place].susp 2 [place] NS DAILY Senna-Docusate Sodium Tablet (Sennosides/Docusate Sodium) 1 Each Tablet 1 Each PO BID LAST DOSE THIS AM NEXT DOSE TONIGHT Protonix (Pantoprazole Sodium) 40 Mg Tablet.dr 40 Mg PO DAILY LST DOSE THIS AM NEXT DOSE TOMORROW AM Carafate (Sucralfate) 1 Gm Tablet 1 Tab PO TID Meds not given this hospital admission. May resume home medications as approved by Physician. MAY TAKE WHEN AVAILABLE Metoprolol Succinate ( Xl ) (Metoprolol Succinate) 100 Mg Tab.er.24h 50 Mg PO HS Vitals/I & O Vital Sign - Last 24 Hours 11/19/19 11/19/19 11/19/19 11/19/19 14:06 14:48 15:00 18:30 Temp 98.4 98.4 Pulse 103 Resp 16 B/P (MAP) 108/66 (80) Pulse Ox 98 98 95 95 O2 Delivery Room Air Room Air Room Air Room Air 11/19/19 11/19/19 11/19/19 11/19/19 19:00 19:00 20:00 20:55 Temp 99.6 99.6 Pulse 111 Resp 18 B/P (MAP) 104/60 (75) Pulse Ox 92 92 92 O2 Delivery Room Air Room Air Room Air Room Air O2 Flow Rate 2.0 2.0 11/19/19 11/19/19 11/19/19 11/19/19 21:55 22:57 23:00 23:27 Temp 98.8 98.8 Pulse 109 Resp 18 B/P (MAP) 104/61 (75) Pulse Ox 92 92 94 94 O2 Delivery Room Air Room Air Room Air Room Air O2 Flow Rate 2.0 2.0 2.0 11/20/19 11/20/19 11/20/19 11/20/19 02:58 03:00 03:28 04:13 Temp 98.6 98.6 Pulse 94 Resp 18 B/P (MAP) 118/66 (83) Pulse Ox 94 95 95 95 O2 Delivery Room Air Room Air Room Air Room Air O2 Flow Rate 2.0 2.0 2.0 11/20/19 11/20/19 11/20/19 11/20/19 05:13 07:00 07:22 07:25 Temp 98.7 98.7 Pulse 59 Resp 18 B/P (MAP) 98/59 (72) Pulse Ox 95 95 O2 Delivery Room Air Room Air Room Air Room Air O2 Flow Rate 2.0 11/20/19 11/20/19 11/20/19 11/20/19 08:44 11:00 12:18 12:49 Temp 98.7 98.7 Pulse 99 Resp 18 B/P (MAP) 102/58 (73) Pulse Ox 95 O2 Delivery Room Air Room Air Room Air Room Air Intake and Output 11/19/19 11/19/19 11/20/19 15:00 23:00 07:00 Intake Total 100 ml Balance 100 ml Nutrition Consultation Dietary Evaluation: Recommendations by RD: Dietary education by RD, Increase Calorie Intake, Protein supplementation Comments: REC ADA/cardiac diet ,glucerna tid Expected Outcomes/Goals: PO intake to meet >75% est needs- met at times, goal ongoing Interpretation of weight loss: >5% in 1 month Malnutrition Findings: Food and Nutrition Intake (Sev: <50% est energy req 5days Weight Status: Morbidly Obese BINH WELCH MD Nov 20, 2019 13:43
[2019-11-20 15:00] VITALS: BP 93/53
--- NOTE | 2019-11-20 15:27 | PDOC ---
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 Vasogenic edema with 4 mm left to right midline shift Headaches. Right side hemiplegia, UE > LE. Cognitive impairment. Staring spells. CML. HTN. HLD. DM. KRISS. ADHD. PE Hx. Leukocytosis. Obesity. RECOMMENDATIONS/PLAN: Pain control for headache. Continue Decadron 4 mg IV q6h, duration per NS. Continue Lipitor HS. Treat medical diseases. FU with Neurosurgery and Oncology. FU pathology reports. Weight reduction. OT/PT. Rehab. EEG on 11/06/19: normal. Past Medical History Cardiovascular: HTN, Hyperlipidemia, Other (tachycardia) Pulmonary: Asthma, Pulmonary embolus ( DVT, on [place]), Other (sleep apnea) CENTRAL NERVOUS SYSTEM: Periperal neuropathy, Other (right L5 radiculopathy) GI: Peptic Ulcer disease, Other (pancreatitis, hiatal hernia) Psych: Anxiety, Depression, Other (ADHD) Musculoskeletal: low back pain Renal/: Other (nephrolithiasis) Endocrine: Diabetes Past Surgical History Appendectomy, Cholecystectomy, , Hysterectomy (fbrioids), Other (lumbar laminectomy) Family History Cancer, CAD Social History ex smoker, no alcohol, disabled Allergies Coded Allergies: azithromycin (Verified Allergy, Intermediate, 10/12/19) codeine (Verified Allergy, Intermediate, 05/06/17) morphine (Verified Allergy, Intermediate, 05/06/17) ROS Negative for fever, chills, weight loss, shortness of breath, chest pain, indigestion, hematochezia, melena, and dysuria. Full 14-point review of systems is negative. MEDICATIONS: Refer to [facility] PHYSICAL EXAMINATION: General appearance in subacute distress. HEENT: Normocephalic and nontraumatic. Eyes, nose, ears, and throat are unremarkable. Hearing decrease. Neck is supple. No lymphadenopathy. No Crepitus. Cardiovascular: S1, S2, regular rate and rhythm. Pulmonary: Clear to auscultation bilaterally. Abdomen: Bowel sounds are positive. Abdomen is soft, nontender, and nondistended. Extremities: No rash, lesions, or edema. No restriction of range of motion NEUROLOGICAL EXAMINATION: Alert. Oriented to time, place and person. PERRL. EOMI. CN: no focal findings. Muscle tone: within normal. Muscle strength: 0 right UE, 2 right LE, 4+ left side. DTR: 0-1 right side, 1+ left side. Plantar reflex: neutral response bilaterally Gait: Not able to walk a few steps. Sensory exam: Decreased to light touch in right LE below the knee. No cerebellar signs elicited. F-T-N test fine in left side. Unable to move right UE. Objective Objective Vital Signs Date Time Temp Pulse Resp B/P (MAP) Pulse Ox O2 Delivery O2 Flow Rate FiO2 11/20/19 12:49 Room Air 11/20/19 11:00 98.7 99 18 102/58 (73) 95 98.7 11/20/19 05:13 2.0 Intake and Output 11/20/19 07:00 Intake Total 100 ml Balance 100 ml Intake Oral 100 ml # Voids 3 # Bowel Movements 2 Vitals Signs Vitals VS - Last 72 Hours, by Label Date Time Temp Pulse Resp B/P (MAP) Pulse Ox O2 Delivery O2 Flow Rate FiO2 11/20/19 12:49 Room Air 11/20/19 12:18 Room Air 11/20/19 11:00 98.7 99 18 102/58 (73) 95 Room Air 98.7 11/20/19 08:44 Room Air 11/20/19 07:25 Room Air 11/20/19 07:22 Room Air 11/20/19 07:00 98.7 59 18 98/59 (72) 95 Room Air 98.7 11/20/19 05:13 95 Room Air 2.0 11/20/19 04:13 95 Room Air 2.0 11/20/19 03:28 95 Room Air 2.0 11/20/19 03:00 98.6 94 18 118/66 (83) 95 Room Air 98.6 11/20/19 02:58 94 Room Air 2.0 11/19/19 23:27 94 Room Air 2.0 11/19/19 23:00 98.8 109 18 104/61 (75) 94 Room Air 98.8 11/19/19 22:57 92 Room Air 2.0 11/19/19 21:55 92 Room Air 2.0 11/19/19 20:55 92 Room Air 2.0 11/19/19 20:00 Room Air 11/19/19 19:00 99.6 111 18 104/60 (75) 92 Room Air 99.6 11/19/19 19:00 92 Room Air 2.0 11/19/19 18:30 95 Room Air 11/19/19 15:00 98.4 103 16 108/66 (80) 95 Room Air 98.4 11/19/19 14:48 98 Room Air 11/19/19 14:06 98 Room Air 11/19/19 13:00 98 Room Air 11/19/19 12:00 98 Room Air 11/19/19 11:00 97.6 95 18 107/48 (67) 98 Room Air 97.6 11/19/19 10:30 98 Room Air 11/19/19 10:03 99 Room Air 11/19/19 08:00 Room Air 11/19/19 07:00 98.2 70 16 104/51 (68) 99 Room Air 98.2 Laboratory Laboratory Laboratory Tests Test 11/19/19 16:37 11/19/19 20:26 11/20/19 04:22 11/20/19 05:35 Glucose (Fingerstick) 112 mg/dL (70-99) 102 mg/dL (70-99) 173 mg/dL (70-99) White Blood Count 11.3 x10^3/uL (4.0-11.0) Red Blood Count 3.06 x10^6/uL (3.50-5.40) Hemoglobin 9.2 g/dL (12.0-15.5) Hematocrit 28.7 % (36.0-47.0) Mean Corpuscular Volume 94 fL (79-100) Mean Corpuscular Hemoglobin 30 pg (25-35) Mean Corpuscular Hemoglobin Concent 32 g/dL (31-37) Red Cell Distribution Width 19.6 % (11.5-14.5) Platelet Count 313 x10^3/uL (140-400) Neutrophils (%) (Auto) 92 % (31-73) Lymphocytes (%) (Auto) 5 % (24-48) Monocytes (%) (Auto) 2 % (0-9) Eosinophils (%) (Auto) 0 % (0-3) Basophils (%) (Auto) 0 % (0-3) Neutrophils # (Auto) 10.4 x10^3/uL (1.8-7.7) Lymphocytes # (Auto) 0.6 x10^3/uL (1.0-4.8) Monocytes # (Auto) 0.2 x10^3/uL (0.0-1.1) Eosinophils # (Auto) 0.0 x10^3/uL (0.0-0.7) Basophils # (Auto) 0.0 x10^3/uL (0.0-0.2) Segmented Neutrophils % 94 % (35-66) Band Neutrophils % 2 % (0-9) Lymphocytes % 1 % (24-48) Monocytes % 1 % (0-10) Metamyelocytes % 2 % (0-0) Toxic Granulation Slight Platelet Estimate Adequate (ADEQUATE) Polychromasia Mod Anisocytosis Mod Tear Drop Cells Few Test 11/20/19 07:38 11/20/19 10:59 Glucose (Fingerstick) 176 mg/dL (70-99) 246 mg/dL (70-99) Microbiology 11/10/19 Urine Culture - Final, Complete 11/10/19 Urine Culture Result 1 ([id number]) - Final, Complete 11/10/19 Antimicrobic Susceptibility - Final, Complete 11/01/19 Blood Culture - Final, Complete NO GROWTH AFTER 5 DAYS Medication Medications Current Medications Dexamethasone (Decadron) 4 mg BID PO ; Start 11/20/19 at 09:00 Comment Review of Relevant I have reviewed the following items mustapha (where applicable) has been applied. JOHNATHON OGLESBY MD Nov 20, 2019 15:27
--- NOTE | 2019-11-20 17:10 | NUR ---
Pt. c/o RLE pain. No redness or edema noted. Pt. states she thinks her sensation is coming back. 2+ pedal pulses. Pain meds given, will continue to monitor. No pain with flexion or movement.
[2019-11-20 19:00] VITALS: BP 98/53
[2019-11-20] MEDS: LIDOCAINE (700MG/PATCH) PATCH. TP SCH (21:00)
[2019-11-20] MEDS: ATORVASTATIN CALCIUM 40 MG TABLET. PO SCH (21:26)
[2019-11-20] MEDS: METOPROLOL SUCC 24HR ER 50 MG TAB.ER.24H. PO SCH (21:26)
[2019-11-20 23:00] VITALS: BP 98/49
[2019-11-21] MEDS: ALPRAZolam 0.25 MG TABLET PO PRN ×2 (00:25→21:22)
[2019-11-21] MEDS: HYDROmorphone 2 MG/ML VIAL IV PRN ×6 (00:25→21:23)
[2019-11-21] MEDS: oxyCODONE IR 5 MG TABLET PO PRN ×3 (02:32→17:34)
[2019-11-21 03:00] VITALS: BP 96/53
[2019-11-21 07:00] VITALS: BP 98/53
[2019-11-21] MEDS: INSULIN LISPRO 300 UNITS/3 ML VIAL. SQ SCH ×6 (08:00→17:07)
[2019-11-21] MEDS: SUCRALFATE 1 GM TABLET. PO SCH ×3 (08:42→17:02)
[2019-11-21] MEDS: ENOXAPARIN 40 MG/0.4 ML SYRINGE. SQ SCH (08:42)
[2019-11-21] MEDS: DEXAMETHASONE 4 MG TABLET PO SCH ×2 (08:42→21:22)
[2019-11-21] MEDS: FERROUS SULFATE ORAL 300 MG/5 ML SOLUTION. PO SCH (08:43)
[2019-11-21] MEDS: NYSTATIN TOPICAL POWDER 15GM BOTTLE. TP SCH ×2 (08:43→21:00)
[2019-11-21] MEDS: FLUTICASONE 50MCG/NASAL SPRAY 16GM BOTTLE. NS SCH (08:43)
[2019-11-21] MEDS: levETIRAcetam 500 MG TABLET PO SCH ×2 (08:43→21:22)
[2019-11-21] MEDS: cycloSPORINE 0.05% OPHTH DROPERETTE. OU SCH ×2 (08:43→21:21)
[2019-11-21] MEDS: INSULIN GLARGINE SYRINGE. SQ SCH ×2 (08:51→21:29)
[2019-11-21] MEDS: PATCH REMOVAL. MC SCH (08:52)
[2019-11-21] MEDS: SENNOSIDES/DOCUSATE 8.6/50MG TABLET. PO SCH ×3 (08:52→21:22)
--- NOTE | 2019-11-21 10:06 | PDOC ---
PROGRESS NOTES Chief Complaint Chief Complaint IMPRESSION Postop day craniotomy with meningioma resection (11/12) Chronic Myelogenous Leukemia - s/p bone marrow biopsy 11/05 Leukocytosis on decadron - has gotten 44 iV doses, shifted to PO decadron 11.17 Acute encephalopathy -POA, resolved Headaches stable DM2 uncontrolled on decadron IV Chronic Back Pain and Sciatica Rt Leg Acute blood loss anemia Brain Mass Hx PE Hypotension resolved Epistaxis resolved GEnw eakness, - REhab on dc Urnary retention off bateman 11/17 MULTIPLE DRUG RESISTANT ESBL UTI -d/c to rehab pending insurance -taper decadron to off over four weeks -oxycodone for po pain control -unless acute changes, no new post-op imaging prior to d/c -d/c edd in approx 1 week, for f/u with NS 11/21/19 STILL HAS HEADACHE IMPAIRED FUNCTIONAL MOBILITY, MODERATE-SEVERE History of Present Illness History of Present Illness BS still high despite my inc insulin coverage NEeded to be straight cath'd at least 3x - had bateman for about a week MDR ESBL UTI< was on rocephin for longest time NOW on PO x 2 doses q48 hrs per Dr Mitchel suero STable headache Slated for Rehab tuesday CAN TAKE OUT RT CENTRAL LINE ON TUESDAY PRIOR TO DC EARLIER ENTRY transferred out of ICU 12. PAssed swallow (reg diet thin liq) ABle to move RT leg! UNable to lift RT arm JUst worked with PT today - only to chair - rehab screen in the works - TUESDAY DC HAd rt craniotomy with mass resection 11/12 - intra op path stilll pending BS high, on IV decadron - has gotten 44 doses iV decadron - i shfted to PO . 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 No oropharyngeal lesion. Scalp incision well approximated w/ stables. no drainage or no surrounding redness NECK: Supple. LUNGS: Clear bilaterally HEART: S1, S2. No gallops or murmurs. ABDOMEN: Obese, soft, nontender, bowel sounds active. Ecchymosis present EXTREMITIES: Right lower extremity edema. No cyanosis. SKIN: Warm and dry. No rash NURSE OBGYN: Alert and oriented. Right-sided weakness, unable to move arm or leg; able to distinguish cold sensation. RIJ clean General: Cooperative, mild distress, Other (extremely weak and depressed) Heart: Regular rate, Normal S1, Normal S2 Lungs: Wheezing Abdomen: Soft, Other (eechymosis improving) Extremities: No clubbing, No cyanosis, No edema, Normal pulses, No tenderness/swelling Skin: No rashes, No breakdown, Other (Ecchymosis on right abdomen) Labs LABS Laboratory Tests Test 11/20/19 10:59 11/20/19 16:42 11/20/19 20:39 11/21/19 08:05 Glucose (Fingerstick) 246 mg/dL (70-99) 117 mg/dL (70-99) 214 mg/dL (70-99) 155 mg/dL (70-99) Assessment and Plan Assessmemt and Plan Problems Medical Problems: (1) Abdominal hemorrhage Status: Acute (2) Generalized weakness Status: Acute (3) Lactic acidosis Status: Acute (4) Leukocytosis Status: Acute * Leg Press (manual resist) Supine Exercises Comments * to fatigue (5-10 reps) x3 sets Learning Preferences * One-on-One Instruction Problem List (body system elements) * Impaired fnctnl mobility * Heart Rate * Strength * Obesity * Balance * Pain Pt/caregiver agrees with plan of care/goals * Yes Patient condition at conclusion of therapy * Pt in bed * Call light in reach * Phone in reach * PtIn no apparent distress * Pt denies further needs Goal 1 - Bed Mobility Assistance Required * Independent Goal 1 Assessment * Appropriate - Continue Goal 2 - Transfers Assistance Required * Independent Goal 2 - Transfer Type * Stand-Step Goal 2 Assessment * Appropriate - Continue Goal 3 - Ambulation Assistance Required * Independent Goal 3 - Ambulation Distance * 50' Goal 3 - Ambulation Device * Roller Walker Treatment Plan * Therapeutic Exercise * Bed Mobility Training * Transfer training * Gait Training * Dynamic Balance Training Frequency of Treatment Expected * 11 visits/week Duration of Treatment Expected * 2 weeks Discharge Recommendations * Acute Rehab facility Discharge Recommendation Comments * TBD Comment Review of Relevant I have reviewed the following items mustapha (where applicable) has been applied. Labs Laboratory Tests Test 11/19/19 11:44 11/19/19 16:37 11/19/19 20:26 11/20/19 04:22 Glucose (Fingerstick) 183 mg/dL (70-99) 112 mg/dL (70-99) 102 mg/dL (70-99) 173 mg/dL (70-99) Test 11/20/19 05:35 11/20/19 07:38 11/20/19 10:59 11/20/19 16:42 White Blood Count 11.3 x10^3/uL (4.0-11.0) Red Blood Count 3.06 x10^6/uL (3.50-5.40) Hemoglobin 9.2 g/dL (12.0-15.5) Hematocrit 28.7 % (36.0-47.0) Mean Corpuscular Volume 94 fL (79-100) Mean Corpuscular Hemoglobin 30 pg (25-35) Mean Corpuscular Hemoglobin Concent 32 g/dL (31-37) Red Cell Distribution Width 19.6 % (11.5-14.5) Platelet Count 313 x10^3/uL (140-400) Neutrophils (%) (Auto) 92 % (31-73) Lymphocytes (%) (Auto) 5 % (24-48) Monocytes (%) (Auto) 2 % (0-9) Eosinophils (%) (Auto) 0 % (0-3) Basophils (%) (Auto) 0 % (0-3) Neutrophils # (Auto) 10.4 x10^3/uL (1.8-7.7) Lymphocytes # (Auto) 0.6 x10^3/uL (1.0-4.8) Monocytes # (Auto) 0.2 x10^3/uL (0.0-1.1) Eosinophils # (Auto) 0.0 x10^3/uL (0.0-0.7) Basophils # (Auto) 0.0 x10^3/uL (0.0-0.2) Segmented Neutrophils % 94 % (35-66) Band Neutrophils % 2 % (0-9) Lymphocytes % 1 % (24-48) Monocytes % 1 % (0-10) Metamyelocytes % 2 % (0-0) Toxic Granulation Slight Platelet Estimate Adequate (ADEQUATE) Polychromasia Mod Anisocytosis Mod Tear Drop Cells Few Glucose (Fingerstick) 176 mg/dL (70-99) 246 mg/dL (70-99) 117 mg/dL (70-99) Test 11/20/19 20:39 11/21/19 08:05 Glucose (Fingerstick) 214 mg/dL (70-99) 155 mg/dL (70-99) Laboratory Tests Test 11/20/19 10:59 11/20/19 16:42 11/20/19 20:39 11/21/19 08:05 Glucose (Fingerstick) 246 mg/dL (70-99) 117 mg/dL (70-99) 214 mg/dL (70-99) 155 mg/dL (70-99) Microbiology 11/10/19 Urine Culture - Final, Complete 11/10/19 Urine Culture Result 1 (СВЕТЛАНА) - Final, Complete 11/10/19 Antimicrobic Susceptibility - Final, Complete 11/01/19 Blood Culture - Final, Complete NO GROWTH AFTER 5 DAYS Medications Current Medications Sodium Chloride 500 ml @ 500 mls/hr 1X ONCE IV Last administered on 11/01/19at 13:00; Start 11/01/19 at 13:00; Stop 11/01/19 at 13:59; Status DC Ondansetron HCl (Zofran) 4 mg 1X ONCE IV Last administered on 11/01/19at 13:26; Start 11/01/19 at 13:00; Stop 11/01/19 at 13:13; Status DC Hydromorphone HCl (Dilaudid) 0.5 mg 1X STAT IVP Last administered on 11/01/19at 13:26; Start 11/01/19 at 12:59; Stop 11/01/19 at 13:13; Status DC Iohexol (Omnipaque 300 Mg/ml) 75 ml 1X ONCE IV Last administered on 11/01/19at 14:08; Start 11/01/19 at 13:45; Stop 11/01/19 at 13:46; Status DC Info (CONTRAST GIVEN -- Rx MONITORING) 1 each PRN DAILY PRN MC SEE COMMENTS; Start 11/01/19 at 14:00; Stop 11/03/19 at 13:59; Status DC Hydromorphone HCl (Dilaudid) 0.5 mg 1X STAT IVP Last administered on 11/01/19at 16:53; Start 11/01/19 at 16:21; Stop 11/01/19 at 16:23; Status DC Sodium Chloride 1,000 ml @ 1,000 mls/hr 1X ONCE IV Last administered on 11/01/19at 16:30; Start 11/01/19 at 16:30; Stop 11/01/19 at 17:29; Status DC Sodium Chloride 500 ml @ 500 mls/hr 1X ONCE IV Last administered on 11/01/19at 16:30; Start 11/01/19 at 16:30; Stop 11/01/19 at 17:29; Status DC Albuterol Sulfate (Ventolin Neb Soln) 2.5 mg PRN Q6HRS PRN INH SHORTNESS OF BREATH; Start 11/01/19 at 16:30; Status Cancel Alprazolam (Xanax) 0.25 mg PRN TID PRN PO anxiety; Start 11/01/19 at 16:30; Stop 11/01/19 at 17:11; Status DC Amlodipine Besylate (Norvasc) 5 mg DAILY PO Last administered on 11/16/19at 08:47; Start 11/02/19 at 09:00; Stop 11/18/19 at 09:18; Status DC Cyclosporine (Restasis) 1 drop BID OU Last administered on 11/21/19at 08:43; Start 11/01/19 at 21:00 Fluticasone Propionate (Flonase) 2 spray DAILY NS Last administered on 11/21/19 08:43; Start 11/02/19 at 09:00 Lactobacillus Rhamnosus (Culturelle) 1 cap BID PO Last administered on 11/09/19at 08:28; Start 11/01/19 at 21:00; Stop 11/09/19 at 16:57; Status DC Lidocaine (Lidoderm) 1 patch DAILY TP ; Start 11/02/19 at 09:00; Stop 11/01/19 at 20:34; Status DC Metoprolol Succinate (Toprol Xl) 100 mg HS PO Last administered on 11/17/19at 21:05; Start 11/01/19 at 21:00; Stop 11/18/19 at 09:18; Status DC Nystatin (Nystop) 1 raza BID TP Last administered on 11/21/19at 08:43; Start 11/01/19 at 21:00 Pantoprazole Sodium (Protonix) 40 mg DAILYAC PO Last administered on 11/09/19at 08:28; Start 11/02/19 at 07:30; Stop 11/09/19 at 16:54; Status DC Senna/Docusate Sodium (Senna Plus) 1 tab BID PO Last administered on 11/18/19at 09:37; Start 11/01/19 at 21:00 Sucralfate (Carafate) 1 gm TIDAC PO Last administered on 11/21/19at 08:42; Start 11/01/19 at 17:30 Tramadol HCl (Ultram) 50 mg PRN Q8HRS PRN PO PAIN; Start 11/01/19 at 16:30; Stop 11/01/19 at 19:43; Status DC Insulin Glargine (Lantus Syringe) 30 unit QHS SQ Last administered on 11/06/19at 21:16; Start 11/01/19 at 21:00; Stop 11/07/19 at 15:56; Status DC Ondansetron HCl (Zofran Odt) 8 mg PRN Q8HRS PRN PO NAUSEA/VOMITING Last administered on 11/17/19at 12:12; Start 11/01/19 at 17:15 Polyethylene Glycol (miraLAX PACKET) 17 gm PRN DAILY PRN PO CONSTIPATION, 1ST CHOICE Last administered on 11/17/19 08:30; Start 11/01/19 at 17:11 Atorvastatin Calcium (Lipitor) 80 mg QHS PO Last administered on 11/20/19 21:26; Start 11/01/19 at 21:00 Insulin Human Lispro (HumaLOG) 0-9 UNITS TIDAC SQ Last administered on 10/21 07/09at 12:20; Start 11/01/19 at 16:30; Stop 11/07/19 at 15:56; Status DC Dextrose (Dextrose 50%-Water Syringe) 12.5 gm PRN Q15MIN PRN IV SEE COMMENTS; Start 11/01/19 at 16:30; Stop 11/12/19 at 15:36; Status DC Ondansetron HCl (Zofran) 4 mg PRN Q8HRS PRN IV NAUSEA/VOMITING; Start 11/01/19 at 16:30; Stop 11/02/19 at 16:29; Status DC Alprazolam (Xanax) 0.25 mg PRN TID PRN PO anxiety Last administered on 11/21/19at 00:25; Start 11/01/19 at 17:11 Miscellaneous (Lidoderm Patch Removal) 1 ea QHS MC ; Start 11/01/19 at 21:00; Stop 11/01/19 at 20:34; Status DC Ceftriaxone Sodium (Rocephin) 1 gm QHS IVP Last administered on 11/15/19at 21:26; Start 11/01/19 at 18:45; Stop 11/16/19 at 08:52; Status DC Tramadol HCl (Ultram) 50 mg PRN Q8HRS PRN PO MILD PAIN 1-3 Last administered on 11/15/19at 17:56; Start 11/01/19 at 19:45 Hydromorphone HCl (Dilaudid) 1 mg PRN Q4HRS PRN IV SEVERE PAIN Last administered on 11/21/19at 08:42; Start 11/01/19 at 20:15 Lidocaine (Lidoderm) 1 patch QHS TP Last administered on 11/18/19at 20:49; Start 11/01/19 at 21:00 Miscellaneous (Lidoderm Patch Removal) 1 ea DAILY MC Last administered on 11/21/19at 08:52; Start 11/02/19 at 09:00 Albumin Human 500 ml @ 125 mls/hr 1X ONCE IV ; Start 11/02/19 at 02:00; Stop 11/02/19 at 05:59; Status Cancel Acetaminophen (Tylenol) 650 mg 1X PRN PRN PO PRE-TRANSFUSION; Start 11/02/19 at 06:45; Stop 11/03/19 at 14:16; Status DC Diphenhydramine HCl (Benadryl Oral Elixir) 12.5 mg 1X PRN PRN PO PRE- TRANSFUSION; Start 11/02/19 at 06:45; Stop 11/03/19 at 14:16; Status DC Diphenhydramine HCl (Benadryl) 25 mg PRN 1X PRN PO PRE-TRANSFUSION; Start 11/02/19 at 06:45; Stop 11/03/19 at 14:16; Status DC Lactulose (LACTULOSE 300ML for RECTAL) 200 gm Q6HRS NH Last administered on 11/02/19at 18:00; Start 11/02/19 at 18:00; Stop 11/04/19 at 14:44; Status DC Sodium Chloride 1,000 ml @ 100 mls/hr Q10H IV Last administered on 11/13/19at 15:30; Start 11/02/19 at 12:00; Stop 11/14/19 at 11:28; Status DC Lactulose (Lactulose) 20 gm PRN DAILY PRN PO CONSTIPATION, 2ND CHOICE; Start 11/04/19 at 14:45 Oxycodone HCl (Roxicodone) 5 mg PRN Q6HRS PRN PO MODERATE TO SEVERE PAIN Last administered on 11/21/19at 02:32; Start 11/04/19 at 14:45 Lidocaine HCl (Buffered Lidocaine 1%) 3 ml STK-MED ONCE .ROUTE ; Start 11/05/19 at 08:13; Stop 11/05/19 at 08:13; Status DC Lidocaine HCl (Buffered Lidocaine 1%) 3 ml STK-MED ONCE .ROUTE ; Start 11/05/19 at 08:14; Stop 11/05/19 at 08:14; Status DC Midazolam HCl (Versed) 2 mg STK-MED ONCE .ROUTE ; Start 11/05/19 at 08:40; Stop 11/05/19 at 08:40; Status DC Fentanyl Citrate (Fentanyl 2ml Vial) 100 mcg STK-MED ONCE .ROUTE ; Start 11/05/19 at 08:40; Stop 11/05/19 at 08:41; Status DC Lidocaine HCl (Buffered Lidocaine 1%) 3 ml 1X ONCE IJ Last administered on 11/05/19at 08:45; Start 11/05/19 at 08:45; Stop 11/05/19 at 08:50; Status DC Midazolam HCl (Versed) 2 mg 1X ONCE IV Last administered on 11/05/19at 08:45; Start 11/05/19 at 08:45; Stop 11/05/19 at 08:50; Status DC Fentanyl Citrate (Fentanyl 2ml Vial) 100 mcg 1X ONCE IV Last administered on 11/05/19at 08:45; Start 11/05/19 at 08:45; Stop 11/05/19 at 08:50; Status DC Dexamethasone Sodium Phosphate (Decadron) 4 mg Q6HRS IVP Last administered on 11/17/19at 06:03; Start 11/06/19 at 09:00; Stop 11/17/19 at 08:53; Status DC Insulin Glargine (Lantus Syringe) 40 unit QHS SQ Last administered on 11/15/19at 21:00; Start 11/07/19 at 21:00; Stop 11/16/19 at 08:53; Status DC Insulin Human Lispro (HumaLOG) 10 units TIDAC SQ Last administered on 11/14/19at 17:31; Start 11/07/19 at 16:30; Stop 11/15/19 at 08:16; Status DC Insulin Human Lispro (HumaLOG) 0-9 UNITS TIDWMEALS SQ Last administered on 11/11/19at 17:13; Start 11/07/19 at 17:00; Stop 11/12/19 at 15:37; Status DC Insulin Human Lispro (HumaLOG) 19 units 1X ONCE SQ Last administered on 11/09/19at 12:41; Start 11/09/19 at 12:15; Stop 11/09/19 at 12:16; Status DC Insulin Human Lispro (HumaLOG) 5 units 1X ONCE SQ Last administered on 11/09/19at 13:52; Start 11/09/19 at 13:30; Stop 11/09/19 at 13:31; Status DC Non-Formulary Medication 1 ea DAILY PO ; Start 11/09/19 at 16:30; Status Cancel Ondansetron HCl (Zofran) 4 mg PRN Q6HRS PRN IV NAUSEA/VOMITING; Start 11/12/19 at 07:00; Stop 11/12/19 at 19:56; Status DC Fentanyl Citrate (Fentanyl 2ml Vial) 25 mcg PRN Q5MIN PRN IV MILD PAIN 1-3; Start 11/12/19 at 07:00; Stop 11/12/19 at 19:56; Status DC Fentanyl Citrate (Fentanyl 2ml Vial) 50 mcg PRN Q5MIN PRN IV MODERATE TO SEVERE PAIN; Start 11/12/19 at 07:00; Stop 11/12/19 at 19:56; Status DC Morphine Sulfate (Morphine Sulfate) 1 mg PRN Q10MIN PRN IV SEVERE PAIN 7-10; Start 11/12/19 at 07:00; Stop 11/09/19 at 17:30; Status DC Ringer's Solution 1,000 ml @ 30 mls/hr Q24H IV Last administered on 11/12/19at 10:00; Start 11/12/19 at 07:00; Stop 11/12/19 at 18:59; Status DC Lidocaine HCl (Xylocaine-Mpf 1% 2ml Vial) 2 ml PRN 1X PRN ID PRIOR TO IV START; Start 11/12/19 at 07:00; Stop 11/12/19 at 19:56; Status DC Hydromorphone HCl (Dilaudid) 0.5 mg PRN Q10MIN PRN IV SEV PAIN, Second choice; Start 11/12/19 at 07:00; Stop 11/12/19 at 19:56; Status DC Prochlorperazine Edisylate (Compazine) 5 mg PACU PRN PRN IV NAUSEA, MRX1; Start 11/12/19 at 07:00; Stop 11/12/19 at 19:56; Status DC Pantoprazole Sodium (Protonix) 40 mg DAILYAC PO Last administered on 11/14/19at 08:19; Start 11/09/19 at 18:30; Stop 11/15/19 at 09:25; Status DC Levetiracetam (Keppra) 500 mg BID PO Last administered on 11/21/19at 08:43; Start 11/09/19 at 21:00 Non-Formulary Medication 1 ea DAILY PO Last administered on 11/21/19at 09:53; Start 11/12/19 at 09:00 Insulin Human Lispro (HumaLOG) 8 units 1X ONCE SQ Last administered on 11/10/19at 12:32; Start 11/10/19 at 12:15; Stop 11/10/19 at 12:16; Status DC Propofol 20 ml @ As Directed STK-MED ONCE IV ; Start 11/12/19 at 07:48; Stop 11/12/19 at 07:48; Status DC Dexamethasone Sodium Phosphate (Decadron) 20 mg STK-MED ONCE .ROUTE ; Start 11/12/19 at 07:48; Stop 11/12/19 at 07:48; Status DC Lidocaine HCl (Lidocaine Pf 2% Vial) 5 ml STK-MED ONCE .ROUTE ; Start 11/12/19 at 07:48; Stop 11/12/19 at 07:48; Status DC Ondansetron HCl (Zofran) 4 mg STK-MED ONCE .ROUTE ; Start 11/12/19 at 07:48; Stop 11/12/19 at 07:48; Status DC Phenylephrine HCl (Tony-Synephrine Inj) 10 mg STK-MED ONCE .ROUTE ; Start 11/12/19 at 07:48; Stop 11/12/19 at 07:48; Status DC Propofol 50 ml @ As Directed STK-MED ONCE IV ; Start 11/12/19 at 07:48; Stop 11/12/19 at 07:48; Status DC Rocuronium [place] (Zemuron) 50 mg STK-MED ONCE .ROUTE ; Start 11/12/19 at 07:48; Stop 11/12/19 at 07:48; Status DC Remifentanil HCl (Ultiva) 2 mg STK-MED ONCE IV ; Start 11/12/19 at 07:48; Stop 11/12/19 at 07:49; Status DC Sodium Chloride (SODIUM CHLORIDE 20ml) 20 ml STK-MED ONCE IJ ; Start 11/12/19 at 07:49; Stop 11/12/19 at 07:49; Status DC Multi-Ingred Cream/Lotion/Oil/ Oint (Artificial Tears Eye Ointment) 7 raza STK- MED ONCE .ROUTE ; Start 11/12/19 at 07:49; Stop 11/12/19 at 07:49; Status DC Bacitracin 56326 unit/Sodium Chloride 1,000 ml @ 1,000 mls/hr 1X ONCE IRR Last administered on 11/12/19at 11:26; Start 11/12/19 at 07:57; Stop 11/12/19 at 08:56; Status DC Sodium Chloride (SODIUM CHLORIDE 20ml) 20 ml STK-MED ONCE IJ ; Start 11/12/19 at 07:57; Stop 11/12/19 at 07:57; Status DC Gelatin (Gelfoam Size 100) 1 each STK-MED ONCE .ROUTE Last administered on 11/12/19 11:26; Start 11/12/19 at 07:59; Stop 11/12/19 at 07:59; Status DC Cellulose (Surgicel Hemostat 4x8) 1 each STK-MED ONCE .ROUTE Last administered on 11/12/19 12:01; Start 11/12/19 at 07:59; Stop 11/12/19 at 08:00; Status DC Lidocaine/ Epinephrine (LIDOCAINE 1%-EPI 1:100,000 Multi-Dose) 20 ml STK-MED ONCE .ROUTE Last administered on 11/12/19 11:26; Start 11/12/19 at 07:59; Stop 11/12/19 at 08:00; Status DC Thrombin 20,000 unit STK-MED ONCE TP Last administered on 11/12/19 11:26; Start 11/12/19 at 08:00; Stop 11/12/19 at 08:00; Status DC Bacitracin (Bacitracin Zinc Oint Pkt) 1 pkt STK-MED ONCE TP ; Start 11/12/19 at 08:00; Stop 11/12/19 at 08:00; Status DC Propofol 100 ml @ As Directed STK-MED ONCE IV ; Start 11/12/19 at 08:02; Stop 11/12/19 at 08:02; Status DC Insulin Human Lispro (HumaLOG) 11 units 1X ONCE SQ Last administered on 11/12/19at 08:15; Start 11/12/19 at 08:15; Stop 11/12/19 at 08:16; Status DC Gadoterate Meglumine (Dotarem) 24.8 ml 1X ONCE IVP Last administered on 11/12/19at 08:15; Start 11/12/19 at 08:15; Stop 11/12/19 at 08:16; Status DC Insulin Human Regular 100 unit/ Sodium Chloride 101 ml @ 12.484 mls/ hr ONCE ONCE IV ; Start 11/12/19 at 08:15; Stop 11/12/19 at 16:20; Status DC Desflurane (Suprane) 90 ml STK-MED ONCE IH ; Start 11/12/19 at 08:11; Stop 11/12/19 at 08:11; Status DC Fentanyl Citrate (Fentanyl 2ml Vial) 100 mcg STK-MED ONCE .ROUTE ; Start 11/12/19 at 08:20; Stop 11/12/19 at 08:20; Status DC Midazolam HCl (Versed) 2 mg STK-MED ONCE .ROUTE ; Start 11/12/19 at 08:20; Stop 11/12/19 at 08:20; Status DC Rocuronium [place] (Zemuron) 50 mg STK-MED ONCE .ROUTE ; Start 11/12/19 at 09:11; Stop 11/12/19 at 09:12; Status DC Mannitol (Mannitol) 12.5 g STK-MED ONCE .ROUTE ; Start 11/12/19 at 09:22; Stop 11/12/19 at 09:23; Status DC Propofol 100 ml @ As Directed STK-MED ONCE IV ; Start 11/12/19 at 09:22; Stop 11/12/19 at 09:23; Status DC Lidocaine HCl (Xylocaine-Mpf 1% 2ml Vial) 2 ml STK-MED ONCE .ROUTE ; Start 11/12/19 at 09:24; Stop 11/12/19 at 09:24; Status DC Cefazolin Sodium 3 gm/Dextrose 100 ml @ 200 mls/hr 1X PREOP ONCE IV Last administered on 11/12/19at 10:53; Start 11/12/19 at 10:30; Stop 11/12/19 at 10:59; Status DC Gelatin (Gelfoam Size 12-7mm) 1 each STK-MED ONCE .ROUTE Last administered on 11/12/19at 12:03; Start 11/12/19 at 11:59; Stop 11/12/19 at 12:01; Status DC Thrombin 20,000 unit STK-MED ONCE TP Last administered on 11/12/19at 12:04; Start 11/12/19 at 12:00; Stop 11/12/19 at 12:01; Status DC Gelatin (Gelfoam Size 100) 1 each STK-MED ONCE .ROUTE Last administered on 11/12/19at 12:25; Start 11/12/19 at 12:26; Stop 11/12/19 at 12:26; Status DC Gelatin (Gelfoam Size 12-7mm) 1 each STK-MED ONCE .ROUTE Last administered on 11/12/19at 13:35; Start 11/12/19 at 13:32; Stop 11/12/19 at 13:33; Status DC Thrombin 20,000 unit STK-MED ONCE TP Last administered on 11/12/19at 13:35; Start 11/12/19 at 13:32; Stop 11/12/19 at 13:33; Status DC Gelatin (Gelfoam Size 12-7mm) 1 each STK-MED ONCE .ROUTE Last administered on 11/12/19at 13:55; Start 11/12/19 at 13:55; Stop 11/12/19 at 13:55; Status DC Gelatin (Gelfoam Size 12-7mm) 1 each STK-MED ONCE .ROUTE Last administered on 11/12/19at 13:59; Start 11/12/19 at 13:59; Stop 11/12/19 at 13:59; Status DC Labetalol HCl (Normodyne Iv Push) 5 mg PRN Q15MIN PRN IVP HYPERTENSION; Start 11/12/19 at 15:15 Nicardipine HCl 50 mg/Sodium Chloride 250 ml @ 25 mls/hr TITRATE PRN IV SBP 90-140; Start 11/12/19 at 15:15; Stop 11/15/19 at 08:16; Status DC Hydralazine HCl (Apresoline Inj) 5 mg PRN Q6HRS PRN IVP TO KEEP SBP<140mmHg; Start 11/12/19 at 15:15 Al Hydroxide/Mg Hydroxide (Mylanta Plus Xs) 30 ml PRN Q3HRS PRN PO HEARTBURN / GAS; Start 11/12/19 at 15:15 Calcium Carbonate/ Glycine (Tums) 500 mg PRN Q3HRS PRN PO INDIGESTION Last administered on 11/20/19at 16:15; Start 11/12/19 at 15:15 Diphenhydramine HCl (Benadryl) 25 mg PRN Q6HRS PRN PO ITCHING; Start 11/12/19 at 15:15 Diphenhydramine HCl (Benadryl) 25 mg PRN Q6HRS PRN IV ITCHING; Start 11/12/19 at 15:15 Sodium Chloride (Normal Saline Flush) 3 ml QSHIFT PRN IV AFTER MEDS AND BLOOD DRAWS; Start 11/12/19 at 15:15 Insulin Human Lispro (HumaLOG) 0-5 UNITS TIDWMEALS SQ Last administered on 11/17/19at 08:39; Start 11/12/19 at 17:00; Stop 11/17/19 at 08:54; Status DC Dextrose (Dextrose 50%-Water Syringe) 12.5 gm PRN Q15MIN PRN IV SEE COMMENTS; Start 11/12/19 at 15:15 Dextrose (Iv Dextrose 5%) 250 ml PRN Q15MIN PRN IV SEE COMMENTS; Start 11/12/19 at 15:15; Stop 11/18/19 at 08:17; Status DC Hydromorphone HCl (Dilaudid) 0.2 mg PRN Q1HR PRN IV MODERATE PAIN Last administered on 11/19/19at 03:58; Start 11/12/19 at 15:15 Insulin Human Lispro (HumaLOG VIAL for OP,RR ONLY) 0-10 units PRN Q1HR PRN SQ PER PROTOCOL Last administered on 11/12/19at 15:50; Start 11/12/19 at 16:00; Stop 11/12/19 at 19:54; Status DC Insulin Human Lispro (HumaLOG VIAL for OP,RR ONLY) 4 unit 1X ONCE SQ ; Start 11/12/19 at 16:45; Stop 11/12/19 at 16:46; Status DC Ferrous Sulfate (Iron Oral Solution) 300 mg QD PO Last administered on 11/21/19at 08:43; Start 11/13/19 at 10:00 Gadoterate Meglumine (Dotarem) 10 ml 1X ONCE IVP Last administered on 11/13/19at 15:00; Start 11/13/19 at 14:45; Stop 11/13/19 at 14:48; Status DC Gadoterate Meglumine (Dotarem) 15 ml 1X ONCE IVP Last administered on 11/13/19at 15:00; Start 11/13/19 at 14:45; Stop 11/13/19 at 14:48; Status DC Insulin Human Lispro (HumaLOG) 15 units TIDAC SQ Last administered on 11/15/19at 17:08; Start 11/15/19 at 08:15; Stop 11/16/19 at 08:53; Status DC Insulin Glargine (Lantus Syringe) 20 unit DAILY SQ Last administered on 11/15/19at 09:20; Start 11/15/19 at 09:00; Stop 11/16/19 at 08:53; Status DC Enoxaparin Sodium (Lovenox 40mg Syringe) 40 mg Q12H SQ Last administered on 11/15/19at 23:36; Start 11/15/19 at 10:00; Stop 11/16/19 at 07:50; Status DC Enoxaparin Sodium (Lovenox 40mg Syringe) 40 mg DAILY SQ Last administered on 11/21/19at 08:42; Start 11/16/19 at 09:00 Meropenem 1 gm/ Sodium Chloride 100 ml @ 200 mls/hr Q8HRS IV ; Start 11/16/19 at 14:00; Stop 11/16/19 at 12:31; Status DC Insulin Glargine (Lantus Syringe) 40 unit BID SQ Last administered on 11/21/19at 08:51; Start 11/16/19 at 09:00 Insulin Human Lispro (HumaLOG) 20 units TIDAC SQ Last administered on 11/18/19at 08:35; Start 11/16/19 at 11:30; Stop 11/18/19 at 09:19; Status DC Insulin Glargine (Lantus Syringe) 20 unit 1X ONCE SQ Last administered on 11/16/19at 09:48; Start 11/16/19 at 09:15; Stop 11/16/19 at 09:16; Status DC Fosfomycin Tromethamine (Monurol) 3 gm 1X ONCE PO Last administered on 11/16/19at 12:49; Start 11/16/19 at 12:30; Stop 11/16/19 at 12:33; Status DC Fosfomycin Tromethamine (Monurol) 3 gm 1X ONCE PO Last administered on 11/18/19at 09:57; Start 11/18/19 at 09:00; Stop 11/18/19 at 09:01; Status DC Dexamethasone (Decadron) 4 mg QID PO Last administered on 11/19/19at 20:55; Start 11/17/19 at 13:00; Stop 11/20/19 at 08:47; Status DC Insulin Human Lispro (HumaLOG) 0-9 UNITS TIDWMEALS SQ Last administered on 11/20/19at 12:22; Start 11/17/19 at 12:00 Dextrose (Dextrose 50%-Water Syringe) 12.5 gm PRN Q15MIN PRN IV SEE COMMENTS; Start 11/17/19 at 09:00; Status UNV Dextrose (Iv Dextrose 5%) 250 ml PRN Q15MIN PRN IV SEE COMMENTS; Start 11/17/19 at 09:00 Metoprolol Succinate (Toprol Xl) 50 mg HS PO Last administered on 11/20/19at 21:26; Start 11/18/19 at 21:00 Insulin Human Lispro (HumaLOG) 30 units TIDAC SQ Last administered on 11/21/19at 08:51; Start 11/18/19 at 09:30 Dexamethasone (Decadron) 4 mg BID PO Last administered on 11/21/19at 08:42; Start 11/20/19 at 09:00 Active Scripts Active Sprycel (Dasatinib) 100 Mg Tablet 100 Mg PO BID 30 Days Tramadol Hcl 50 Mg Tablet 50 Mg PO PRN Q8HRS PRN Novolog Flexpen (Insulin Aspart) 100 Unit/1 Ml Insuln.pen 30 Unit SQ TID 30 Days Lantus Solostar (Insulin Glargine,Hum.rec.anlog) 100 Unit/1 Ml Insuln.pen 40 Unit SQ BID Decadron (Dexamethasone) 4 Mg Tablet 1 Tab PO BID 3 Days Culturelle (Lactobacillus Rhamnosus Gg) 1 Each Cap.sprink 1 Cap PO BID 30 Days Reported Roxicodone (Oxycodone HCl) 5 Mg Tablet 1 Tab PO PRN Q6HRS PRN Ferrous Sulfate 325 Mg Tablet 1 Tab PO DAILY Keppra (Levetiracetam) 500 Mg Tablet 1 Tab PO BID 30 Days Cymbalta (Duloxetine Hcl) 60 Mg Capsule.dr 1 Cap PO BID Lyrica (Pregabalin) 150 Mg Capsule 1 Cap PO BID Crestor (Rosuvastatin Calcium) 40 Mg Tablet 0.5 Tab PO DAILY Polyethylene Glycol 3350 2,500 Gm Powder 17 Gm PO PRN PRN Xanax (Alprazolam) 1 Mg Tablet 1 Tab PO TID Restasis (Cyclosporine) 1 Each Droperette 1 Drop EACHEYE BID Proair Hfa Inhaler (Albuterol Sulfate) 8.5 Gm Hfa.aer.ad 1 Puff INH PRN Q6HRS PRN Ondansetron Hcl 4 Mg Tablet 2 Tab PO PRN Q8HRS PRN Nystatin 15 Gm Powder 1 Raza TP BID Fluticasone Propionate Nasal [place] (Fluticasone Propionate) 16 Gm [place].susp 2 [place] NS DAILY Senna-Docusate Sodium Tablet (Sennosides/Docusate Sodium) 1 Each Tablet 1 Each PO BID LAST DOSE THIS AM NEXT DOSE TONIGHT Protonix (Pantoprazole Sodium) 40 Mg Tablet.dr 40 Mg PO DAILY LST DOSE THIS AM NEXT DOSE TOMORROW AM Carafate (Sucralfate) 1 Gm Tablet 1 Tab PO TID Meds not given this hospital admission. May resume home medications as approved by Physician. MAY TAKE WHEN AVAILABLE Metoprolol Succinate ( Xl ) (Metoprolol Succinate) 100 Mg Tab.er.24h 50 Mg PO HS Vitals/I & O Vital Sign - Last 24 Hours 11/20/19 11/20/19 11/20/19 11/20/19 11:00 12:18 12:49 15:00 Temp 98.7 98.5 98.7 98.5 Pulse 99 105 Resp 18 18 B/P (MAP) 102/58 (73) 93/53 (66) Pulse Ox 95 100 O2 Delivery Room Air Room Air Room Air Room Air 11/20/19 11/20/19 11/20/19 11/20/19 16:12 17:12 17:15 18:24 O2 Delivery Room Air Room Air Room Air Room Air 11/20/19 11/20/19 11/20/19 11/20/19 19:00 20:00 20:14 20:44 Temp 98.9 98.9 Pulse 111 Resp 22 20 20 B/P (MAP) 98/53 (68) Pulse Ox 96 O2 Delivery Room Air Room Air Room Air Room Air 11/20/19 11/20/19 11/21/19 11/21/19 21:26 23:00 00:25 00:55 Temp 98.9 98.9 Pulse 111 111 Resp 22 20 20 B/P (MAP) 98/53 98/49 (65) Pulse Ox 96 O2 Delivery Room Air Room Air Room Air 11/21/19 11/21/19 11/21/1911/21/20 02:32 03:00 03:32 04:30 Temp 98.4 98.4 Pulse 89 Resp 20 20 B/P (MAP) 96/53 (67) Pulse Ox 96 O2 Delivery Room Air Room Air Room Air Room Air 11/21/19 11/21/19 11/21/19 11/21/19 05:00 07:00 08:42 09:54 Temp 98.2 98.2 Pulse 83 Resp 20 16 16 B/P (MAP) 98/53 (68) Pulse Ox 96 O2 Delivery Room Air Room Air Room Air Room Air Intake and Output 11/20/19 11/20/19 11/21/19 15:00 23:00 07:00 Intake Total 240 ml 340 ml Balance 240 ml 340 ml Nutrition Consultation Dietary Evaluation: Recommendations by RD: Dietary education by RD, Increase Calorie Intake, Protein supplementation Comments: REC ADA/cardiac diet ,glucerna tid Expected Outcomes/Goals: PO intake to meet >75% est needs- met at times, goal ongoing Interpretation of weight loss: >5% in 1 month Malnutrition Findings: Food and Nutrition Intake (Sev: <50% est energy req 5days Weight Status: Morbidly Obese LUANNE OWUSU MD Nov 21, 2019 10:06
[2019-11-21] MEDS ORDERED: PHENYLEPH/MINERAL OIL/PETROLAT RECTAL OINTMENT TUBE. RC PRN (10:15)
--- NOTE | 2019-11-21 10:27 | PDOC ---
PROGRESS NOTES Subjective Subjective Denies acute changes. Overall reports moving right leg better. Objective Objective Vital Signs Date Time Temp Pulse Resp B/P (MAP) Pulse Ox O2 Delivery O2 Flow Rate FiO2 11/21/19 09:54 16 Room Air 11/21/19 07:00 98.2 83 98/53 (68) 96 98.2 11/20/19 05:13 2.0 Intake and Output 11/21/19 07:00 Intake Total 580 ml Balance 580 ml Intake Oral 580 ml # Voids 1 # Bowel Movements 2 Physical Exam Physical Exam AAOx4, NAD, strength stable, sensation slight improved LT, incision c/d/i with edd. Assessment Assessment Problems Medical Problems: (1) Abdominal hemorrhage Status: Acute (2) Generalized weakness Status: Acute (3) Lactic acidosis Status: Acute (4) Leukocytosis Status: Acute Plan Plan of Care -d/c to rehab pending insurance -taper decadron to off over four weeks -oxycodone for po pain control -unless acute changes, no new post-op imaging prior to d/c -d/c edd in approx 1 week, for f/u with NS Comment Review of Relevant I have reviewed the following items mustapha (where applicable) has been applied. Labs Laboratory Tests Test 11/19/19 11:44 11/19/19 16:37 11/19/19 20:26 11/20/19 04:22 Glucose (Fingerstick) 183 mg/dL (70-99) 112 mg/dL (70-99) 102 mg/dL (70-99) 173 mg/dL (70-99) Test 11/20/19 05:35 11/20/19 07:38 11/20/19 10:59 11/20/19 16:42 White Blood Count 11.3 x10^3/uL (4.0-11.0) Red Blood Count 3.06 x10^6/uL (3.50-5.40) Hemoglobin 9.2 g/dL (12.0-15.5) Hematocrit 28.7 % (36.0-47.0) Mean Corpuscular Volume 94 fL (79-100) Mean Corpuscular Hemoglobin 30 pg (25-35) Mean Corpuscular Hemoglobin Concent 32 g/dL (31-37) Red Cell Distribution Width 19.6 % (11.5-14.5) Platelet Count 313 x10^3/uL (140-400) Neutrophils (%) (Auto) 92 % (31-73) Lymphocytes (%) (Auto) 5 % (24-48) Monocytes (%) (Auto) 2 % (0-9) Eosinophils (%) (Auto) 0 % (0-3) Basophils (%) (Auto) 0 % (0-3) Neutrophils # (Auto) 10.4 x10^3/uL (1.8-7.7) Lymphocytes # (Auto) 0.6 x10^3/uL (1.0-4.8) Monocytes # (Auto) 0.2 x10^3/uL (0.0-1.1) Eosinophils # (Auto) 0.0 x10^3/uL (0.0-0.7) Basophils # (Auto) 0.0 x10^3/uL (0.0-0.2) Segmented Neutrophils % 94 % (35-66) Band Neutrophils % 2 % (0-9) Lymphocytes % 1 % (24-48) Monocytes % 1 % (0-10) Metamyelocytes % 2 % (0-0) Toxic Granulation Slight Platelet Estimate Adequate (ADEQUATE) Polychromasia Mod Anisocytosis Mod Tear Drop Cells Few Glucose (Fingerstick) 176 mg/dL (70-99) 246 mg/dL (70-99) 117 mg/dL (70-99) Test 11/20/19 20:39 11/21/19 08:05 Glucose (Fingerstick) 214 mg/dL (70-99) 155 mg/dL (70-99) Laboratory Tests Test 11/20/19 10:59 11/20/19 16:42 11/20/19 20:39 11/21/19 08:05 Glucose (Fingerstick) 246 mg/dL (70-99) 117 mg/dL (70-99) 214 mg/dL (70-99) 155 mg/dL (70-99) Microbiology 11/10/19 Urine Culture - Final, Complete 11/10/19 Urine Culture Result 1 (СВЕТЛАНА) - Final, Complete 11/10/19 Antimicrobic Susceptibility - Final, Complete 11/01/19 Blood Culture - Final, Complete NO GROWTH AFTER 5 DAYS Medications Current Medications Sodium Chloride 500 ml @ 500 mls/hr 1X ONCE IV Last administered on 11/01/19at 13:00; Start 11/01/19 at 13:00; Stop 11/01/19 at 13:59; Status DC Ondansetron HCl (Zofran) 4 mg 1X ONCE IV Last administered on 11/01/19at 13:26; Start 11/01/19 at 13:00; Stop 11/01/19 at 13:13; Status DC Hydromorphone HCl (Dilaudid) 0.5 mg 1X STAT IVP Last administered on 11/01/19at 13:26; Start 11/01/19 at 12:59; Stop 11/01/19 at 13:13; Status DC Iohexol (Omnipaque 300 Mg/ml) 75 ml 1X ONCE IV Last administered on 11/01/19at 14:08; Start 11/01/19 at 13:45; Stop 11/01/19 at 13:46; Status DC Info (CONTRAST GIVEN -- Rx MONITORING) 1 each PRN DAILY PRN MC SEE COMMENTS; Start 11/01/19 at 14:00; Stop 11/03/19 at 13:59; Status DC Hydromorphone HCl (Dilaudid) 0.5 mg 1X STAT IVP Last administered on at 16:53; Start 11/01/19 at 16:21; Stop 11/01/19 at 16:23; Status DC Sodium Chloride 1,000 ml @ 1,000 mls/hr 1X ONCE IV Last administered on 11/01/19at 16:30; Start 11/01/19 at 16:30; Stop 11/01/19 at 17:29; Status DC Sodium Chloride 500 ml @ 500 mls/hr 1X ONCE IV Last administered on 11/01/19at 16:30; Start 11/01/19 at 16:30; Stop 11/01/19 at 17:29; Status DC Albuterol Sulfate (Ventolin Neb Soln) 2.5 mg PRN Q6HRS PRN INH SHORTNESS OF BREATH; Start 11/01/19 at 16:30; Status Cancel Alprazolam (Xanax) 0.25 mg PRN TID PRN PO anxiety; Start 11/01/19 at 16:30; Stop 11/01/19 at 17:11; Status DC Amlodipine Besylate (Norvasc) 5 mg DAILY PO Last administered on 11/16/19at 08:47; Start 11/02/19 at 09:00; Stop 11/18/19 at 09:18; Status DC Cyclosporine (Restasis) 1 drop BID OU Last administered on 11/21/19 08:43; Start 11/01/19 at 21:00 Fluticasone Propionate (Flonase) 2 spray DAILY NS Last administered on 11/21/19 08:43; Start 11/02/19 at 09:00 Lactobacillus Rhamnosus (Culturelle) 1 cap BID PO Last administered on 11/09/19at 08:28; Start 11/01/19 at 21:00; Stop 11/09/19 at 16:57; Status DC Lidocaine (Lidoderm) 1 patch DAILY TP ; Start 11/02/19 at 09:00; Stop 11/01/19 at 20:34; Status DC Metoprolol Succinate (Toprol Xl) 100 mg HS PO Last administered on 11/17/19at 21:05; Start 11/01/19 at 21:00; Stop 11/18/19 at 09:18; Status DC Nystatin (Nystop) 1 raza BID TP Last administered on 11/21/19 08:43; Start 11/01/19 at 21:00 Pantoprazole Sodium (Protonix) 40 mg DAILYAC PO Last administered on 11/09/19at 08:28; Start 11/02/19 at 07:30; Stop 11/09/19 at 16:54; Status DC Senna/Docusate Sodium (Senna Plus) 1 tab BID PO Last administered on 11/18/19at 09:37; Start 11/01/19 at 21:00 Sucralfate (Carafate) 1 gm TIDAC PO Last administered on 11/21/19 08:42; Start 11/01/19 at 17:30 Tramadol HCl (Ultram) 50 mg PRN Q8HRS PRN PO PAIN; Start 11/01/19 at 16:30; Stop 11/01/19 at 19:43; Status DC Insulin Glargine (Lantus Syringe) 30 unit QHS SQ Last administered on 11/06/19at 21:16; Start 11/01/19 at 21:00; Stop 11/07/19 at 15:56; Status DC Ondansetron HCl (Zofran Odt) 8 mg PRN Q8HRS PRN PO NAUSEA/VOMITING Last administered on 11/17/19at 12:12; Start 11/01/19 at 17:15 Polyethylene Glycol (miraLAX PACKET) 17 gm PRN DAILY PRN PO CONSTIPATION, 1ST CHOICE Last administered on 11/17/19 08:30; Start 11/01/19 at 17:11 Atorvastatin Calcium (Lipitor) 80 mg QHS PO Last administered on 11/20/19at 21:26; Start 11/01/19 at 21:00 Insulin Human Lispro (HumaLOG) 0-9 UNITS TIDAC SQ Last administered on 11/07/19at 12:20; Start 11/01/19 at 16:30; Stop 11/07/19 at 15:56; Status DC Dextrose (Dextrose 50%-Water Syringe) 12.5 gm PRN Q15MIN PRN IV SEE COMMENTS; Start 11/01/19 at 16:30; Stop 11/12/19 at 15:36; Status DC Ondansetron HCl (Zofran) 4 mg PRN Q8HRS PRN IV NAUSEA/VOMITING; Start 11/01/19 at 16:30; Stop 11/02/19 at 16:29; Status DC Alprazolam (Xanax) 0.25 mg PRN TID PRN PO anxiety Last administered on 11/21/19at 00:25; Start 11/01/19 at 17:11 Miscellaneous (Lidoderm Patch Removal) 1 ea QHS MC ; Start 11/01/19 at 21:00; Stop 11/01/19 at 20:34; Status DC Ceftriaxone Sodium (Rocephin) 1 gm QHS IVP Last administered on 11/15/19at 21:26; Start 11/01/19 at 18:45; Stop 11/16/19 at 08:52; Status DC Tramadol HCl (Ultram) 50 mg PRN Q8HRS PRN PO MILD PAIN 1-3 Last administered on 11/15/19at 17:56; Start 11/01/19 at 19:45 Hydromorphone HCl (Dilaudid) 1 mg PRN Q4HRS PRN IV SEVERE PAIN Last administered on 11/21/19at 08:42; Start 11/01/19 at 20:15 Lidocaine (Lidoderm) 1 patch QHS TP Last administered on 11/18/19at 20:49; Start 11/01/19 at 21:00 Miscellaneous (Lidoderm Patch Removal) 1 ea DAILY MC Last administered on 11/21/19at 08:52; Start 11/02/19 at 09:00 Albumin Human 500 ml @ 125 mls/hr 1X ONCE IV ; Start 11/02/19 at 02:00; Stop 11/02/19 at 05:59; Status Cancel Acetaminophen (Tylenol) 650 mg 1X PRN PRN PO PRE-TRANSFUSION; Start 11/02/19 at 06:45; Stop 11/03/19 at 14:16; Status DC Diphenhydramine HCl (Benadryl Oral Elixir) 12.5 mg 1X PRN PRN PO PRE- TRANSFUSION; Start 11/02/19 at 06:45; Stop 11/03/19 at 14:16; Status DC Diphenhydramine HCl (Benadryl) 25 mg PRN 1X PRN PO PRE-TRANSFUSION; Start 11/02/19 at 06:45; Stop 11/03/19 at 14:16; Status DC Lactulose (LACTULOSE 300ML for RECTAL) 200 gm Q6HRS OK Last administered on 01/03/19at 18:00; Start 11/02/19 at 18:00; Stop 11/04/19 at 14:44; Status DC Sodium Chloride 1,000 ml @ 100 mls/hr Q10H IV Last administered on 11/13/19at 15:30; Start 11/02/19 at 12:00; Stop 11/14/19 at 11:28; Status DC Lactulose (Lactulose) 20 gm PRN DAILY PRN PO CONSTIPATION, 2ND CHOICE; Start 11/04/19 at 14:45 Oxycodone HCl (Roxicodone) 5 mg PRN Q6HRS PRN PO MODERATE TO SEVERE PAIN Last administered on 11/21/19at 02:32; Start 11/04/19 at 14:45 Lidocaine HCl (Buffered Lidocaine 1%) 3 ml STK-MED ONCE .ROUTE ; Start 11/05/19 at 08:13; Stop 11/05/19 at 08:13; Status DC Lidocaine HCl (Buffered Lidocaine 1%) 3 ml STK-MED ONCE .ROUTE ; Start 11/05/19 at 08:14; Stop 11/05/19 at 08:14; Status DC Midazolam HCl (Versed) 2 mg STK-MED ONCE .ROUTE ; Start 11/05/19 at 08:40; Stop 11/05/19 at 08:40; Status DC Fentanyl Citrate (Fentanyl 2ml Vial) 100 mcg STK-MED ONCE .ROUTE ; Start 11/05/19 at 08:40; Stop 11/05/19 at 08:41; Status DC Lidocaine HCl (Buffered Lidocaine 1%) 3 ml 1X ONCE IJ Last administered on 11/05/19at 08:45; Start 11/05/19 at 08:45; Stop 11/05/19 at 08:50; Status DC Midazolam HCl (Versed) 2 mg 1X ONCE IV Last administered on 11/05/19at 08:45; Start 11/05/19 at 08:45; Stop 11/05/19 at 08:50; Status DC Fentanyl Citrate (Fentanyl 2ml Vial) 100 mcg 1X ONCE IV Last administered on 11/05/19at 08:45; Start 11/05/19 at 08:45; Stop 11/05/19 at 08:50; Status DC Dexamethasone Sodium Phosphate (Decadron) 4 mg Q6HRS IVP Last administered on 11/17/19at 06:03; Start 11/06/19 at 09:00; Stop 11/17/19 at 08:53; Status DC Insulin Glargine (Lantus Syringe) 40 unit QHS SQ Last administered on 11/15/19at 21:00; Start 11/07/19 at 21:00; Stop 11/16/19 at 08:53; Status DC Insulin Human Lispro (HumaLOG) 10 units TIDAC SQ Last administered on 11/14/19at 17:31; Start 11/07/19 at 16:30; Stop 11/15/19 at 08:16; Status DC Insulin Human Lispro (HumaLOG) 0-9 UNITS TIDWMEALS SQ Last administered on 11/11/19at 17:13; Start 11/07/19 at 17:00; Stop 11/12/19 at 15:37; Status DC Insulin Human Lispro (HumaLOG) 19 units 1X ONCE SQ Last administered on 11/09/19at 12:41; Start 11/09/19 at 12:15; Stop 11/09/19 at 12:16; Status DC Insulin Human Lispro (HumaLOG) 5 units 1X ONCE SQ Last administered on 11/09/19at 13:52; Start 11/09/19 at 13:30; Stop 11/09/19 at 13:31; Status DC Non-Formulary Medication 1 ea DAILY PO ; Start 11/09/19 at 16:30; Status Cancel Ondansetron HCl (Zofran) 4 mg PRN Q6HRS PRN IV NAUSEA/VOMITING; Start 11/12/19 at 07:00; Stop 11/12/19 at 19:56; Status DC Fentanyl Citrate (Fentanyl 2ml Vial) 25 mcg PRN Q5MIN PRN IV MILD PAIN 1-3; Start 11/12/19 at 07:00; Stop 11/12/19 at 19:56; Status DC Fentanyl Citrate (Fentanyl 2ml Vial) 50 mcg PRN Q5MIN PRN IV MODERATE TO SEVERE PAIN; Start 11/12/19 at 07:00; Stop 11/12/19 at 19:56; Status DC Morphine Sulfate (Morphine Sulfate) 1 mg PRN Q10MIN PRN IV SEVERE PAIN 7-10; Start 11/12/19 at 07:00; Stop 11/09/19 at 17:30; Status DC Ringer's Solution 1,000 ml @ 30 mls/hr Q24H IV Last administered on 11/12/19at 10:00; Start 11/12/19 at 07:00; Stop 11/12/19 at 18:59; Status DC Lidocaine HCl (Xylocaine-Mpf 1% 2ml Vial) 2 ml PRN 1X PRN ID PRIOR TO IV START; Start 11/12/19 at 07:00; Stop 11/12/19 at 19:56; Status DC Hydromorphone HCl (Dilaudid) 0.5 mg PRN Q10MIN PRN IV SEV PAIN, Second choice; Start 11/12/19 at 07:00; Stop 11/12/19 at 19:56; Status DC Prochlorperazine Edisylate (Compazine) 5 mg PACU PRN PRN IV NAUSEA, MRX1; Start 11/12/19 at 07:00; Stop 11/12/19 at 19:56; Status DC Pantoprazole Sodium (Protonix) 40 mg DAILYAC PO Last administered on 11/14/19at 08:19; Start 11/09/19 at 18:30; Stop 11/15/19 at 09:25; Status DC Levetiracetam (Keppra) 500 mg BID PO Last administered on 11/21/19at 08:43; Start 11/09/19 at 21:00 Non-Formulary Medication 1 ea DAILY PO Last administered on 11/21/19at 09:53; Start 11/12/19 at 09:00 Insulin Human Lispro (HumaLOG) 8 units 1X ONCE SQ Last administered on 11/10/19at 12:32; Start 11/10/19 at 12:15; Stop 11/10/19 at 12:16; Status DC Propofol 20 ml @ As Directed STK-MED ONCE IV ; Start 11/12/19 at 07:48; Stop 11/12/19 at 07:48; Status DC Dexamethasone Sodium Phosphate (Decadron) 20 mg STK-MED ONCE .ROUTE ; Start 11/12/19 at 07:48; Stop 11/12/19 at 07:48; Status DC Lidocaine HCl (Lidocaine Pf 2% Vial) 5 ml STK-MED ONCE .ROUTE ; Start 11/12/19 at 07:48; Stop 11/12/19 at 07:48; Status DC Ondansetron HCl (Zofran) 4 mg STK-MED ONCE .ROUTE ; Start 11/12/19 at 07:48; Stop 11/12/19 at 07:48; Status DC Phenylephrine HCl (Tony-Synephrine Inj) 10 mg STK-MED ONCE .ROUTE ; Start 1 01/13/19 at 07:48; Stop 11/12/19 at 07:48; Status DC Propofol 50 ml @ As Directed STK-MED ONCE IV ; Start 11/12/19 at 07:48; Stop 11/12/19 at 07:48; Status DC Rocuronium [place] (Zemuron) 50 mg STK-MED ONCE .ROUTE ; Start 11/12/19 at 07:48; Stop 11/12/19 at 07:48; Status DC Remifentanil HCl (Ultiva) 2 mg STK-MED ONCE IV ; Start 11/12/19 at 07:48; Stop 11/12/19 at 07:49; Status DC Sodium Chloride (SODIUM CHLORIDE 20ml) 20 ml STK-MED ONCE IJ ; Start 11/12/19 at 07:49; Stop 11/12/19 at 07:49; Status DC Multi-Ingred Cream/Lotion/Oil/ Oint (Artificial Tears Eye Ointment) 7 raza STK- MED ONCE .ROUTE ; Start 11/12/19 at 07:49; Stop 11/12/19 at 07:49; Status DC Bacitracin 06339 unit/Sodium Chloride 1,000 ml @ 1,000 mls/hr 1X ONCE IRR Last administered on 11/12/19at 11:26; Start 11/12/19 at 07:57; Stop 11/12/19 at 08:56; Status DC Sodium Chloride (SODIUM CHLORIDE 20ml) 20 ml STK-MED ONCE IJ ; Start 11/12/19 at 07:57; Stop 11/12/19 at 07:57; Status DC Gelatin (Gelfoam Size 100) 1 each STK-MED ONCE .ROUTE Last administered on 11/12/19 11:26; Start 11/12/19 at 07:59; Stop 11/12/19 at 07:59; Status DC Cellulose (Surgicel Hemostat 4x8) 1 each STK-MED ONCE .ROUTE Last administered on 11/12/19at 12:01; Start 11/12/19 at 07:59; Stop 11/12/19 at 08:00; Status DC Lidocaine/ Epinephrine (LIDOCAINE 1%-EPI 1:100,000 Multi-Dose) 20 ml STK-MED ONCE .ROUTE Last administered on 11/12/19at 11:26; Start 11/12/19 at 07:59; Stop 11/12/19 at 08:00; Status DC Thrombin 20,000 unit STK-MED ONCE TP Last administered on 11/12/19at 11:26; Start 11/12/19 at 08:00; Stop 11/12/19 at 08:00; Status DC Bacitracin (Bacitracin Zinc Oint Pkt) 1 pkt STK-MED ONCE TP ; Start 11/12/19 at 08:00; Stop 11/12/19 at 08:00; Status DC Propofol 100 ml @ As Directed STK-MED ONCE IV ; Start 11/12/19 at 08:02; Stop 11/12/19 at 08:02; Status DC Insulin Human Lispro (HumaLOG) 11 units 1X ONCE SQ Last administered on 11/12/19at 08:15; Start 11/12/19 at 08:15; Stop 11/12/19 at 08:16; Status DC Gadoterate Meglumine (Dotarem) 24.8 ml 1X ONCE IVP Last administered on 11/12/19at 08:15; Start 11/12/19 at 08:15; Stop 11/12/19 at 08:16; Status DC Insulin Human Regular 100 unit/ Sodium Chloride 101 ml @ 12.484 mls/ hr ONCE ONCE IV ; Start 11/12/19 at 08:15; Stop 11/12/19 at 16:20; Status DC Desflurane (Suprane) 90 ml STK-MED ONCE IH ; Start 11/12/19 at 08:11; Stop 11/12/19 at 08:11; Status DC Fentanyl Citrate (Fentanyl 2ml Vial) 100 mcg STK-MED ONCE .ROUTE ; Start 11/12/19 at 08:20; Stop 11/12/19 at 08:20; Status DC Midazolam HCl (Versed) 2 mg STK-MED ONCE .ROUTE ; Start 11/12/19 at 08:20; Stop 11/12/19 at 08:20; Status DC Rocuronium [place] (Zemuron) 50 mg STK-MED ONCE .ROUTE ; Start 11/12/19 at 09:11; Stop 11/12/19 at 09:12; Status DC Mannitol (Mannitol) 12.5 g STK-MED ONCE .ROUTE ; Start 11/12/19 at 09:22; Stop 11/12/19 at 09:23; Status DC Propofol 100 ml @ As Directed STK-MED ONCE IV ; Start 11/12/19 at 09:22; Stop 11/12/19 at 09:23; Status DC Lidocaine HCl (Xylocaine-Mpf 1% 2ml Vial) 2 ml STK-MED ONCE .ROUTE ; Start 11/12/19 at 09:24; Stop 11/12/19 at 09:24; Status DC Cefazolin Sodium 3 gm/Dextrose 100 ml @ 200 mls/hr 1X PREOP ONCE IV Last administered on 11/12/19at 10:53; Start 11/12/19 at 10:30; Stop 11/12/19 at 10:59; Status DC Gelatin (Gelfoam Size 12-7mm) 1 each STK-MED ONCE .ROUTE Last administered on 11/12/19 12:03; Start 11/12/19 at 11:59; Stop 11/12/19 at 12:01; Status DC Thrombin 20,000 unit STK-MED ONCE TP Last administered on 11/12/19 12:04; Start 11/12/19 at 12:00; Stop 11/12/19 at 12:01; Status DC Gelatin (Gelfoam Size 100) 1 each STK-MED ONCE .ROUTE Last administered on 11/12/19 12:25; Start 11/12/19 at 12:26; Stop 11/12/19 at 12:26; Status DC Gelatin (Gelfoam Size 12-7mm) 1 each STK-MED ONCE .ROUTE Last administered on 11/12/19 13:35; Start 11/12/19 at 13:32; Stop 11/12/19 at 13:33; Status DC Thrombin 20,000 unit STK-MED ONCE TP Last administered on 11/12/19 13:35; Start 11/12/19 at 13:32; Stop 11/12/19 at 13:33; Status DC Gelatin (Gelfoam Size 12-7mm) 1 each STK-MED ONCE .ROUTE Last administered on 11/12/19 13:55; Start 11/12/19 at 13:55; Stop 11/12/19 at 13:55; Status DC Gelatin (Gelfoam Size 12-7mm) 1 each STK-MED ONCE .ROUTE Last administered on 11/12/19at 13:59; Start 11/12/19 at 13:59; Stop 11/12/19 at 13:59; Status DC Labetalol HCl (Normodyne Iv Push) 5 mg PRN Q15MIN PRN IVP HYPERTENSION; Start 11/12/19 at 15:15 Nicardipine HCl 50 mg/Sodium Chloride 250 ml @ 25 mls/hr TITRATE PRN IV SBP 90-140; Start 11/12/19 at 15:15; Stop 11/15/19 at 08:16; Status DC Hydralazine HCl (Apresoline Inj) 5 mg PRN Q6HRS PRN IVP TO KEEP SBP<140mmHg; Start 11/12/19 at 15:15 Al Hydroxide/Mg Hydroxide (Mylanta Plus Xs) 30 ml PRN Q3HRS PRN PO HEARTBURN / GAS; Start 11/12/19 at 15:15 Calcium Carbonate/ Glycine (Tums) 500 mg PRN Q3HRS PRN PO INDIGESTION Last administered on 11/20/19at 16:15; Start 11/12/19 at 15:15 Diphenhydramine HCl (Benadryl) 25 mg PRN Q6HRS PRN PO ITCHING; Start 11/12/19 at 15:15 Diphenhydramine HCl (Benadryl) 25 mg PRN Q6HRS PRN IV ITCHING; Start 11/12/19 at 15:15 Sodium Chloride (Normal Saline Flush) 3 ml QSHIFT PRN IV AFTER MEDS AND BLOOD DRAWS; Start 11/12/19 at 15:15 Insulin Human Lispro (HumaLOG) 0-5 UNITS TIDWMEALS SQ Last administered on 11/17/19at 08:39; Start 11/12/19 at 17:00; Stop 11/17/19 at 08:54; Status DC Dextrose (Dextrose 50%-Water Syringe) 12.5 gm PRN Q15MIN PRN IV SEE COMMENTS; Start 11/12/19 at 15:15 Dextrose (Iv Dextrose 5%) 250 ml PRN Q15MIN PRN IV SEE COMMENTS; Start 11/12/19 at 15:15; Stop 11/18/19 at 08:17; Status DC Hydromorphone HCl (Dilaudid) 0.2 mg PRN Q1HR PRN IV MODERATE PAIN Last administered on 11/19/19at 03:58; Start 11/12/19 at 15:15 Insulin Human Lispro (HumaLOG VIAL for OP,RR ONLY) 0-10 units PRN Q1HR PRN SQ PER PROTOCOL Last administered on 11/12/19at 15:50; Start 11/12/19 at 16:00; Stop 11/12/19 at 19:54; Status DC Insulin Human Lispro (HumaLOG VIAL for OP,RR ONLY) 4 unit 1X ONCE SQ ; Start 11/12/19 at 16:45; Stop 11/12/19 at 16:46; Status DC Ferrous Sulfate (Iron Oral Solution) 300 mg QD PO Last administered on 11/21/19at 08:43; Start 11/13/19 at 10:00 Gadoterate Meglumine (Dotarem) 10 ml 1X ONCE IVP Last administered on 11/13/19at 15:00; Start 11/13/19 at 14:45; Stop 11/13/19 at 14:48; Status DC Gadoterate Meglumine (Dotarem) 15 ml 1X ONCE IVP Last administered on 11/13/19at 15:00; Start 11/13/19 at 14:45; Stop 11/13/19 at 14:48; Status DC Insulin Human Lispro (HumaLOG) 15 units TIDAC SQ Last administered on 11/15/19at 17:08; Start 11/15/19 at 08:15; Stop 11/16/19 at 08:53; Status DC Insulin Glargine (Lantus Syringe) 20 unit DAILY SQ Last administered on 11/15/19at 09:20; Start 11/15/19 at 09:00; Stop 11/16/19 at 08:53; Status DC Enoxaparin Sodium (Lovenox 40mg Syringe) 40 mg Q12H SQ Last administered on 11/15/19at 23:36; Start 11/15/19 at 10:00; Stop 11/16/19 at 07:50; Status DC Enoxaparin Sodium (Lovenox 40mg Syringe) 40 mg DAILY SQ Last administered on 11/21/19at 08:42; Start 11/16/19 at 09:00 Meropenem 1 gm/ Sodium Chloride 100 ml @ 200 mls/hr Q8HRS IV ; Start 11/16/19 at 14:00; Stop 11/16/19 at 12:31; Status DC Insulin Glargine (Lantus Syringe) 40 unit BID SQ Last administered on 11/21/19at 08:51; Start 11/16/19 at 09:00 Insulin Human Lispro (HumaLOG) 20 units TIDAC SQ Last administered on 11/18/19at 08:35; Start 11/16/19 at 11:30; Stop 11/18/19 at 09:19; Status DC Insulin Glargine (Lantus Syringe) 20 unit 1X ONCE SQ Last administered on 11/16/19at 09:48; Start 11/16/19 at 09:15; Stop 11/16/19 at 09:16; Status DC Fosfomycin Tromethamine (Monurol) 3 gm 1X ONCE PO Last administered on 11/16/19at 12:49; Start 11/16/19 at 12:30; Stop 11/16/19 at 12:33; Status DC Fosfomycin Tromethamine (Monurol) 3 gm 1X ONCE PO Last administered on 11/18/19at 09:57; Start 11/18/19 at 09:00; Stop 11/18/19 at 09:01; Status DC Dexamethasone (Decadron) 4 mg QID PO Last administered on 11/19/19at 20:55; Start 11/17/19 at 13:00; Stop 11/20/19 at 08:47; Status DC Insulin Human Lispro (HumaLOG) 0-9 UNITS TIDWMEALS SQ Last administered on 11/20/19at 12:22; Start 11/17/19 at 12:00 Dextrose (Dextrose 50%-Water Syringe) 12.5 gm PRN Q15MIN PRN IV SEE COMMENTS; Start 11/17/19 at 09:00; Status UNV Dextrose (Iv Dextrose 5%) 250 ml PRN Q15MIN PRN IV SEE COMMENTS; Start 11/17/19 at 09:00 Metoprolol Succinate (Toprol Xl) 50 mg HS PO Last administered on 11/20/19at 21:26; Start 11/18/19 at 21:00 Insulin Human Lispro (HumaLOG) 30 units TIDAC SQ Last administered on 11/21/19at 08:51; Start 11/18/19 at 09:30 Dexamethasone (Decadron) 4 mg BID PO Last administered on 11/21/19at 08:42; Start 11/20/19 at 09:00 Phenyleph/Shark Oil/Min Oil/Petrol (Preparation H) 1 raza PRN QID PRN RC RECTAL PAIN; Start 11/21/19 at 10:15; Status UNV Active Scripts Active Sprycel (Dasatinib) 100 Mg Tablet 100 Mg PO BID 30 Days Tramadol Hcl 50 Mg Tablet 50 Mg PO PRN Q8HRS PRN Novolog Flexpen (Insulin Aspart) 100 Unit/1 Ml Insuln.pen 30 Unit SQ TID 30 Days Lantus Solostar (Insulin Glargine,Hum.rec.anlog) 100 Unit/1 Ml Insuln.pen 40 Unit SQ BID Decadron (Dexamethasone) 4 Mg Tablet 1 Tab PO BID 3 Days Culturelle (Lactobacillus Rhamnosus Gg) 1 Each Cap.sprink 1 Cap PO BID 30 Days Reported Roxicodone (Oxycodone HCl) 5 Mg Tablet 1 Tab PO PRN Q6HRS PRN Ferrous Sulfate 325 Mg Tablet 1 Tab PO DAILY Keppra (Levetiracetam) 500 Mg Tablet 1 Tab PO BID 30 Days Cymbalta (Duloxetine Hcl) 60 Mg Capsule.dr 1 Cap PO BID Lyrica (Pregabalin) 150 Mg Capsule 1 Cap PO BID Crestor (Rosuvastatin Calcium) 40 Mg Tablet 0.5 Tab PO DAILY Polyethylene Glycol 3350 2,500 Gm Powder 17 Gm PO PRN PRN Xanax (Alprazolam) 1 Mg Tablet 1 Tab PO TID Restasis (Cyclosporine) 1 Each Droperette 1 Drop EACHEYE BID Proair Hfa Inhaler (Albuterol Sulfate) 8.5 Gm Hfa.aer.ad 1 Puff INH PRN Q6HRS PRN Ondansetron Hcl 4 Mg Tablet 2 Tab PO PRN Q8HRS PRN Nystatin 15 Gm Powder 1 Raza TP BID Fluticasone Propionate Nasal Angela (Fluticasone Propionate) 16 Gm Angela.susp 2 Angela NS DAILY Senna-Docusate Sodium Tablet (Sennosides/Docusate Sodium) 1 Each Tablet 1 Each PO BID LAST DOSE THIS AM NEXT DOSE TONIGHT Protonix (Pantoprazole Sodium) 40 Mg Tablet.dr 40 Mg PO DAILY LST DOSE THIS AM NEXT DOSE TOMORROW AM Carafate (Sucralfate) 1 Gm Tablet 1 Tab PO TID Meds not given this hospital admission. May resume home medications as approved by Physician. MAY TAKE WHEN AVAILABLE Metoprolol Succinate ( Xl ) (Metoprolol Succinate) 100 Mg Tab.er.24h 50 Mg PO HS Vitals/I & O Vital Sign - Last 24 Hours 11/20/19 11/20/19 11/20/19 11/20/19 11:00 12:18 12:49 15:00 Temp 98.7 98.5 98.7 98.5 Pulse 99 105 Resp 18 18 B/P (MAP) 102/58 (73) 93/53 (66) Pulse Ox 95 100 O2 Delivery Room Air Room Air Room Air Room Air 11/20/19 11/20/19 11/20/19 11/20/19 16:12 17:12 17:15 18:24 O2 Delivery Room Air Room Air Room Air Room Air 11/20/19 11/20/19 11/20/19 11/20/19 19:00 20:00 20:14 20:44 Temp 98.9 98.9 Pulse 111 Resp 20 B/P (MAP) 98/53 (68) Pulse Ox 96 O2 Delivery Room Air Room Air Room Air Room Air 11/20/19 11/20/19 11/21/19 11/21/19 21:26 23:00 00:25 00:55 Temp 98.9 98.9 Pulse 111 111 Resp 20 B/P (MAP) 98/53 98/49 (65) Pulse Ox 96 O2 Delivery Room Air Room Air Room Air 11/21/19 11/21/19 11/21/19 11/21/19 02:32 03:00 03:32 04:30 Temp 98.4 98.4 Pulse 89 Resp 20 20 B/P (MAP) 96/53 (67) Pulse Ox 96 O2 Delivery Room Air Room Air Room Air Room Air 11/21/19 11/21/19 11/21/19 11/21/19 05:00 07:00 08:42 09:54 Temp 98.2 98.2 Pulse 83 Resp 16 16 B/P (MAP) 98/53 (68) Pulse Ox 96 O2 Delivery Room Air Room Air Room Air Room Air Intake and Output 11/20/19 11/20/19 11/21/19 15:00 23:00 07:00 Intake Total 240 ml 340 ml Balance 240 ml 340 ml Nutrition Consultation Dietary Evaluation: Recommendations by RD: Dietary education by RD, Increase Calorie Intake, Protein supplementation Comments: REC ADA/cardiac diet ,glucerna tid Expected Outcomes/Goals: PO intake to meet >75% est needs- met at times, goal ongoing Interpretation of weight loss: >5% in 1 month Malnutrition Findings: Food and Nutrition Intake (Sev: <50% est energy req 5days Weight Status: Morbidly Obese BINH WELCH MD Nov 21, 2019 10:27
[2019-11-21 11:00] VITALS: BP 102/53
[2019-11-21 15:00] VITALS: BP 107/94
[2019-11-21 19:00] VITALS: BP 82/50
[2019-11-21] MEDS: LIDOCAINE (700MG/PATCH) PATCH. TP SCH (21:00)
[2019-11-21] MEDS: METOPROLOL SUCC 24HR ER 50 MG TAB.ER.24H. PO SCH (21:00)
[2019-11-21] MEDS: ATORVASTATIN CALCIUM 40 MG TABLET. PO SCH (21:22)
[2019-11-21 23:00] VITALS: BP 122/61
[2019-11-22] MEDS: HYDROmorphone 2 MG/ML VIAL IV PRN ×6 (01:42→22:15)
[2019-11-22 03:00] VITALS: BP 112/60
[2019-11-22] MEDS: oxyCODONE IR 5 MG TABLET PO PRN ×3 (03:25→15:28)
[2019-11-22 07:00] VITALS: BP 92/61
[2019-11-22] MEDS: INSULIN LISPRO 300 UNITS/3 ML VIAL. SQ SCH ×6 (08:00→16:53)
[2019-11-22] MEDS: SENNOSIDES/DOCUSATE 8.6/50MG TABLET. PO SCH ×2 (08:27→21:00)
[2019-11-22] MEDS: PATCH REMOVAL. MC SCH (09:00)
[2019-11-22] MEDS: ENOXAPARIN 40 MG/0.4 ML SYRINGE. SQ SCH (09:12)
[2019-11-22] MEDS: FLUTICASONE 50MCG/NASAL SPRAY 16GM BOTTLE. NS SCH (09:12)
[2019-11-22] MEDS: cycloSPORINE 0.05% OPHTH DROPERETTE. OU SCH ×2 (09:12→22:06)
[2019-11-22] MEDS: NYSTATIN TOPICAL POWDER 15GM BOTTLE. TP SCH ×2 (09:12→21:00)
[2019-11-22] MEDS: FERROUS SULFATE ORAL 300 MG/5 ML SOLUTION. PO SCH (09:12)
[2019-11-22] MEDS: ALPRAZolam 0.25 MG TABLET PO PRN ×3 (09:13→22:06)
[2019-11-22] MEDS: DEXAMETHASONE 4 MG TABLET PO SCH ×2 (09:13→22:07)
[2019-11-22] MEDS: SUCRALFATE 1 GM TABLET. PO SCH ×3 (09:13→16:59)
[2019-11-22] MEDS: levETIRAcetam 500 MG TABLET PO SCH ×2 (09:13→22:06)
--- NOTE | 2019-11-22 09:15 | PDOC ---
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 Acute encephalopathy -POA, resolved Headaches stable DM2 uncontrolled on decadron IV Chronic Back Pain and Sciatica Rt Leg Acute blood loss anemia Brain Mass Hx PE Hypotension resolved Epistaxis resolved GEnw eakness, - REhab on dc Urnary retention off bateman 11/17 MULTIPLE DRUG RESISTANT ESBL UTI -d/c to rehab pending insurance -taper decadron to off over four weeks -oxycodone for po pain control -unless acute changes, no new post-op imaging prior to d/c -d/c edd in approx 1 week, for f/u with NS 11/22/19 STILL HAS HEADACHE, fatigues easily IMPAIRED FUNCTIONAL MOBILITY, MODERATE-SEVERE Discharge Recommendations * Acute Rehab facility History of Present Illness History of Present Illness BS still high despite my inc insulin coverage NEeded to be straight cath'd at least 3x - had bateman for about a week MDR ESBL UTI< was on rocephin for longest time NOW on PO x 2 doses q48 hrs per Dr Mitchel suero STable headache Slated for Rehab tuesday CAN TAKE OUT RT CENTRAL LINE ON TUESDAY PRIOR TO DC EARLIER ENTRY transferred out of ICU 12. PAssed swallow (reg diet thin liq) ABle to move RT leg! UNable to lift RT arm JUst worked with PT today - only to chair - rehab screen in the works - TUESDAY DC HAd rt craniotomy with mass resection 11/12 - intra op path stilll pending BS high, on IV decadron - has gotten 44 doses iV decadron - i shfted to PO . 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 PLAN; REHAb tuesday TAKE OUT CENTRAL LINE BEFORE DC MAke sure ABX PO by ID FOR MDR ESBL UTI before dc if needed NO bateman for now, I THINK SHE is regaining her bladder muscle back Further inc lispro to 30 TID with emals from 20 TID COnt long acting 40 BID COnt PO decadron 4 QID on dc FF UP NS as instructed by service Vitals Vitals Vital Signs Date Time Temp Pulse Resp B/P (MAP) Pulse Ox O2 Delivery O2 Flow Rate FiO2 11/22/19 08:00 Room Air 11/22/19 07:00 98.2 54 16 92/61 (71) 92 98.2 11/22/19 06:14 2.0 Physical Exam Physical Exam GENERAL: Propped up in bed, alert, in NAD HEENT: Oral mucosa moist. No oropharyngeal lesion. Scalp incision well approximated w/ stables. no drainage or no surrounding redness NECK: Supple. LUNGS: Clear bilaterally HEART: S1, S2. No gallops or murmurs. ABDOMEN: Obese, soft, nontender, bowel sounds active. Ecchymosis present EXTREMITIES: Right lower extremity edema. No cyanosis. SKIN: Warm and dry. No rash SERVICE ENGINEER: Alert and oriented. Right-sided weakness, unable to move arm or leg; able to distinguish cold sensation. RIJ clean General: Alert, Oriented X3, Cooperative, No acute distress, Other (extremely weak and depressed) Heart: Regular rate, Normal S1, Normal S2 Lungs: Wheezing Abdomen: Normal bowel sounds, Soft, Other (eechymosis improving) Extremities: No clubbing, No cyanosis, No edema, Normal pulses, No tenderness/swelling Skin: No rashes, No breakdown, Other (Ecchymosis on right abdomen) Labs LABS Laboratory Tests Test 11/21/19 11:44 11/21/19 16:23 11/21/19 21:01 11/22/19 07:36 Glucose (Fingerstick) 132 mg/dL (70-99) 225 mg/dL (70-99) 196 mg/dL (70-99) 145 mg/dL (70-99) Assessment and Plan Assessmemt and Plan Problems Medical Problems: (1) Abdominal hemorrhage Status: Acute (2) Generalized weakness Status: Acute (3) Lactic acidosis Status: Acute (4) Leukocytosis Status: Acute * Sit to Stand Transfer Comments * standing x2. ~30 seconds each. Right LE not as active today when standing. Could be due to fatigue after exercises. Supine Exercises * Short Arc Quads * Leg Press (manual resist) Supine Exercises Comments * to fatigue (5-10 reps) x3 sets Learning Preferences * One-on-One Instruction Problem List (body system elements) * Impaired fnctnl mobility * Heart Rate * Strength * Obesity * Balance * Pain Pt/caregiver agrees with plan of care/goals * Yes Patient condition at conclusion of therapy * Pt in bed * Call light in reach * Phone in reach * PtIn no apparent distress * Pt denies further needs Goal 1 - Bed Mobility Assistance Required * Independent Goal 1 Assessment * Appropriate - Continue Goal 2 - Transfers Assistance Required * Independent Goal 2 - Transfer Type * Stand-Step Goal 2 Assessment * Appropriate - Continue Goal 3 - Ambulation Assistance Required * Independent Goal 3 - Ambulation Distance * 50' Goal 3 - Ambulation Device * Roller Walker Treatment Plan * Therapeutic Exercise * Bed Mobility Training * Transfer training * Gait Training * Dynamic Balance Training Frequency of Treatment Expected * 11 visits/week Duration of Treatment Expected * 2 weeks Discharge Recommendations * Acute Rehab facility Discharge Recommendation Comments * TBD Comment Review of Relevant I have reviewed the following items mustapha (where applicable) has been applied. Labs Laboratory Tests Test 11/20/19 10:59 11/20/19 16:42 11/20/19 20:39 11/21/19 08:05 Glucose (Fingerstick) 246 mg/dL (70-99) 117 mg/dL (70-99) 214 mg/dL (70-99) 155 mg/dL (70-99) Test 11/21/19 11:44 11/21/19 16:23 11/21/19 21:01 11/22/19 07:36 Glucose (Fingerstick) 132 mg/dL (70-99) 225 mg/dL (70-99) 196 mg/dL (70-99) 145 mg/dL (70-99) Laboratory Tests Test 11/21/19 11:44 11/21/19 16:23 11/21/19 21:01 11/22/19 07:36 Glucose (Fingerstick) 132 mg/dL (70-99) 225 mg/dL (70-99) 196 mg/dL (70-99) 145 mg/dL (70-99) Microbiology 11/10/19 Urine Culture - Final, Complete 11/10/19 Urine Culture Result 1 (СВЕТЛАНА) - Final, Complete 11/10/19 Antimicrobic Susceptibility - Final, Complete 11/01/19 Blood Culture - Final, Complete NO GROWTH AFTER 5 DAYS Medications Current Medications Sodium Chloride 500 ml @ 500 mls/hr 1X ONCE IV Last administered on 11/01/19at 13:00; Start 11/01/19 at 13:00; Stop 11/01/19 at 13:59; Status DC Ondansetron HCl (Zofran) 4 mg 1X ONCE IV Last administered on 11/01/19at 13:26; Start 11/01/19 at 13:00; Stop 11/01/19 at 13:13; Status DC Hydromorphone HCl (Dilaudid) 0.5 mg 1X STAT IVP Last administered on 11/01/19at 13:26; Start 11/01/19 at 12:59; Stop 11/01/19 at 13:13; Status DC Iohexol (Omnipaque 300 Mg/ml) 75 ml 1X ONCE IV Last administered on 11/01/19at 14:08; Start 11/01/19 at 13:45; Stop 11/01/19 at 13:46; Status DC Info (CONTRAST GIVEN -- Rx MONITORING) 1 each PRN DAILY PRN MC SEE COMMENTS; Start 11/01/19 at 14:00; Stop 11/03/19 at 13:59; Status DC Hydromorphone HCl (Dilaudid) 0.5 mg 1X STAT IVP Last administered on 11/01/19at 16:53; Start 11/01/19 at 16:21; Stop 11/01/19 at 16:23; Status DC Sodium Chloride 1,000 ml @ 1,000 mls/hr 1X ONCE IV Last administered on 11/01/19at 16:30; Start 11/01/19 at 16:30; Stop 11/01/19 at 17:29; Status DC Sodium Chloride 500 ml @ 500 mls/hr 1X ONCE IV Last administered on 11/01/19at 16:30; Start 11/01/19 at 16:30; Stop 11/01/19 at 17:29; Status DC Albuterol Sulfate (Ventolin Neb Soln) 2.5 mg PRN Q6HRS PRN INH SHORTNESS OF BREATH; Start 11/01/19 at 16:30; Status Cancel Alprazolam (Xanax) 0.25 mg PRN TID PRN PO anxiety; Start 11/01/19 at 16:30; Stop 11/01/19 at 17:11; Status DC Amlodipine Besylate (Norvasc) 5 mg DAILY PO Last administered on 11/16/19at 08:47; Start 11/02/19 at 09:00; Stop 11/18/19 at 09:18; Status DC Cyclosporine (Restasis) 1 drop BID OU Last administered on 11/21/19 21:21; Start 11/01/19 at 21:00 Fluticasone Propionate (Flonase) 2 spray DAILY NS Last administered on 11/21/19 08:43; Start 11/02/19 at 09:00 Lactobacillus Rhamnosus (Culturelle) 1 cap BID PO Last administered on 11/09/19 at 08:28; Start 11/01/19 at 21:00; Stop 11/09/19 at 16:57; Status DC Lidocaine (Lidoderm) 1 patch DAILY TP ; Start 11/02/19 at 09:00; Stop 11/01/19 at 20:34; Status DC Metoprolol Succinate (Toprol Xl) 100 mg HS PO Last administered on 11/17/19at 21:05; Start 11/01/19 at 21:00; Stop 11/18/19 at 09:18; Status DC Nystatin (Nystop) 1 raza BID TP Last administered on 11/21/19at 08:43; Start 11/01/19 at 21:00 Pantoprazole Sodium (Protonix) 40 mg DAILYAC PO Last administered on 11/09/19at 08:28; Start 11/02/19 at 07:30; Stop 11/09/19 at 16:54; Status DC Senna/Docusate Sodium (Senna Plus) 1 tab BID PO Last administered on 11/18/19at 09:37; Start 11/01/19 at 21:00 Sucralfate (Carafate) 1 gm TIDAC PO Last administered on 11/21/19at 17:02; Start 11/01/19 at 17:30 Tramadol HCl (Ultram) 50 mg PRN Q8HRS PRN PO PAIN; Start 11/01/19 at 16:30; Stop 11/01/19 at 19:43; Status DC Insulin Glargine (Lantus Syringe) 30 unit QHS SQ Last administered on 11/06/19at 21:16; Start 11/01/19 at 21:00; Stop 11/07/19 at 15:56; Status DC Ondansetron HCl (Zofran Odt) 8 mg PRN Q8HRS PRN PO NAUSEA/VOMITING Last administered on 11/17/19 12:12; Start 11/01/19 at 17:15 Polyethylene Glycol (miraLAX PACKET) 17 gm PRN DAILY PRN PO CONSTIPATION, 1ST CHOICE Last administered on 11/17/19 08:30; Start 11/01/19 at 17:11 Atorvastatin Calcium (Lipitor) 80 mg QHS PO Last administered on 11/21/19 21:22; Start 11/01/19 at 21:00 Insulin Human Lispro (HumaLOG) 0-9 UNITS TIDAC SQ Last administered on 11/07/19 12:20; Start 11/01/19 at 16:30; Stop 11/07/19 at 15:56; Status DC Dextrose (Dextrose 50%-Water Syringe) 12.5 gm PRN Q15MIN PRN IV SEE COMMENTS; Start 11/01/19 at 16:30; Stop 11/12/19 at 15:36; Status DC Ondansetron HCl (Zofran) 4 mg PRN Q8HRS PRN IV NAUSEA/VOMITING; Start 11/01/19 at 16:30; Stop 11/02/19 at 16:29; Status DC Alprazolam (Xanax) 0.25 mg PRN TID PRN PO anxiety Last administered on 11/21/19 21:22; Start 11/01/19 at 17:11 Miscellaneous (Lidoderm Patch Removal) 1 ea QHS MC ; Start 11/01/19 at 21:00; Stop 11/01/19 at 20:34; Status DC Ceftriaxone Sodium (Rocephin) 1 gm QHS IVP Last administered on 11/15/19at 21:26; Start 11/01/19 at 18:45; Stop 11/16/19 at 08:52; Status DC Tramadol HCl (Ultram) 50 mg PRN Q8HRS PRN PO MILD PAIN 1-3 Last administered on 11/15/19at 17:56; Start 11/01/19 at 19:45 Hydromorphone HCl (Dilaudid) 1 mg PRN Q4HRS PRN IV SEVERE PAIN Last administered on 11/22/19 05:40; Start 11/01/19 at 20:15 Lidocaine (Lidoderm) 1 patch QHS TP Last administered on 12/29/19at 20:49; Start 11/01/19 at 21:00 Miscellaneous (Lidoderm Patch Removal) 1 ea DAILY MC Last administered on 11/21/19at 08:52; Start 11/02/19 at 09:00 Albumin Human 500 ml @ 125 mls/hr 1X ONCE IV ; Start 11/02/19 at 02:00; Stop 11/02/19 at 05:59; Status Cancel Acetaminophen (Tylenol) 650 mg 1X PRN PRN PO PRE-TRANSFUSION; Start 11/02/19 at 06:45; Stop 11/03/19 at 14:16; Status DC Diphenhydramine HCl (Benadryl Oral Elixir) 12.5 mg 1X PRN PRN PO PRE- TRANSFUSION; Start 11/02/19 at 06:45; Stop 11/03/19 at 14:16; Status DC Diphenhydramine HCl (Benadryl) 25 mg PRN 1X PRN PO PRE-TRANSFUSION; Start 11/02/19 at 06:45; Stop 11/03/19 at 14:16; Status DC Lactulose (LACTULOSE 300ML for RECTAL) 200 gm Q6HRS [place] Last administered on 11/02/19at 18:00; Start 11/02/19 at 18:00; Stop 11/04/19 at 14:44; Status DC Sodium Chloride 1,000 ml @ 100 mls/hr Q10H IV Last administered on 11/13/19at 15:30; Start 11/02/19 at 12:00; Stop 11/14/19 at 11:28; Status DC Lactulose (Lactulose) 20 gm PRN DAILY PRN PO CONSTIPATION, 2ND CHOICE; Start 11/04/19 at 14:45 Oxycodone HCl (Roxicodone) 5 mg PRN Q6HRS PRN PO MODERATE TO SEVERE PAIN Last administered on 11/22/19at 03:25; Start 11/04/19 at 14:45 Lidocaine HCl (Buffered Lidocaine 1%) 3 ml STK-MED ONCE .ROUTE ; Start 11/05/19 at 08:13; Stop 11/05/19 at 08:13; Status DC Lidocaine HCl (Buffered Lidocaine 1%) 3 ml STK-MED ONCE .ROUTE ; Start 11/05/19 at 08:14; Stop 11/05/19 at 08:14; Status DC Midazolam HCl (Versed) 2 mg STK-MED ONCE .ROUTE ; Start 11/05/19 at 08:40; Stop 11/05/19 at 08:40; Status DC Fentanyl Citrate (Fentanyl 2ml Vial) 100 mcg STK-MED ONCE .ROUTE ; Start 11/05/19 at 08:40; Stop 11/05/19 at 08:41; Status DC Lidocaine HCl (Buffered Lidocaine 1%) 3 ml 1X ONCE IJ Last administered on 11/05/19at 08:45; Start 11/05/19 at 08:45; Stop 11/05/19 at 08:50; Status DC Midazolam HCl (Versed) 2 mg 1X ONCE IV Last administered on 11/05/19at 08:45; Start 11/05/19 at 08:45; Stop 11/05/19 at 08:50; Status DC Fentanyl Citrate (Fentanyl 2ml Vial) 100 mcg 1X ONCE IV Last administered on 11/05/19at 08:45; Start 11/05/19 at 08:45; Stop 11/05/19 at 08:50; Status DC Dexamethasone Sodium Phosphate (Decadron) 4 mg Q6HRS IVP Last administered on 11/17/19at 06:03; Start 11/06/19 at 09:00; Stop 11/17/19 at 08:53; Status DC Insulin Glargine (Lantus Syringe) 40 unit QHS SQ Last administered on 11/15/19at 21:00; Start 11/07/19 at 21:00; Stop 11/16/19 at 08:53; Status DC Insulin Human Lispro (HumaLOG) 10 units TIDAC SQ Last administered on 11/14/19at 17:31; Start 11/07/19 at 16:30; Stop 11/15/19 at 08:16; Status DC Insulin Human Lispro (HumaLOG) 0-9 UNITS TIDWMEALS SQ Last administered on 11/11/19at 17:13; Start 11/07/19 at 17:00; Stop 11/12/19 at 15:37; Status DC Insulin Human Lispro (HumaLOG) 19 units 1X ONCE SQ Last administered on 11/09/19at 12:41; Start 11/09/19 at 12:15; Stop 11/09/19 at 12:16; Status DC Insulin Human Lispro (HumaLOG) 5 units 1X ONCE SQ Last administered on 11/09/19at 13:52; Start 11/09/19 at 13:30; Stop 11/09/19 at 13:31; Status DC Non-Formulary Medication 1 ea DAILY PO ; Start 11/09/19 at 16:30; Status Cancel Ondansetron HCl (Zofran) 4 mg PRN Q6HRS PRN IV NAUSEA/VOMITING; Start 11/12/19 at 07:00; Stop 11/12/19 at 19:56; Status DC Fentanyl Citrate (Fentanyl 2ml Vial) 25 mcg PRN Q5MIN PRN IV MILD PAIN 1-3; Start 11/12/19 at 07:00; Stop 11/12/19 at 19:56; Status DC Fentanyl Citrate (Fentanyl 2ml Vial) 50 mcg PRN Q5MIN PRN IV MODERATE TO SEVERE PAIN; Start 11/12/19 at 07:00; Stop 11/12/19 at 19:56; Status DC Morphine Sulfate (Morphine Sulfate) 1 mg PRN Q10MIN PRN IV SEVERE PAIN 7-10; Start 11/12/19 at 07:00; Stop 11/09/19 at 17:30; Status DC Ringer's Solution 1,000 ml @ 30 mls/hr Q24H IV Last administered on 11/12/19at 10:00; Start 11/12/19 at 07:00; Stop 11/12/19 at 18:59; Status DC Lidocaine HCl (Xylocaine-Mpf 1% 2ml Vial) 2 ml PRN 1X PRN ID PRIOR TO IV START; Start 11/12/19 at 07:00; Stop 11/12/19 at 19:56; Status DC Hydromorphone HCl (Dilaudid) 0.5 mg PRN Q10MIN PRN IV SEV PAIN, Second choice; Start 11/12/19 at 07:00; Stop 11/12/19 at 19:56; Status DC Prochlorperazine Edisylate (Compazine) 5 mg PACU PRN PRN IV NAUSEA, MRX1; Start 11/12/19 at 07:00; Stop 11/12/19 at 19:56; Status DC Pantoprazole Sodium (Protonix) 40 mg DAILYAC PO Last administered on 11/14/19at 08:19; Start 11/09/19 at 18:30; Stop 11/15/19 at 09:25; Status DC Levetiracetam (Keppra) 500 mg BID PO Last administered on 11/21/19at 21:22; Start 11/09/19 at 21:00 Non-Formulary Medication 1 ea DAILY PO Last administered on 11/21/19at 09:53; Start 11/12/19 at 09:00 Insulin Human Lispro (HumaLOG) 8 units 1X ONCE SQ Last administered on 11/10/19at 12:32; Start 11/10/19 at 12:15; Stop 11/10/19 at 12:16; Status DC Propofol 20 ml @ As Directed STK-MED ONCE IV ; Start 11/12/19 at 07:48; Stop 11/12/19 at 07:48; Status DC Dexamethasone Sodium Phosphate (Decadron) 20 mg STK-MED ONCE .ROUTE ; Start 11/12/19 at 07:48; Stop 11/12/19 at 07:48; Status DC Lidocaine HCl (Lidocaine Pf 2% Vial) 5 ml STK-MED ONCE .ROUTE ; Start 11/12/19 at 07:48; Stop 11/12/19 at 07:48; Status DC Ondansetron HCl (Zofran) 4 mg STK-MED ONCE .ROUTE ; Start 11/12/19 at 07:48; Stop 11/12/19 at 07:48; Status DC Phenylephrine HCl (Tony-Synephrine Inj) 10 mg STK-MED ONCE .ROUTE ; Start 11/12/19 at 07:48; Stop 11/12/19 at 07:48; Status DC Propofol 50 ml @ As Directed STK-MED ONCE IV ; Start 11/12/19 at 07:48; Stop 11/12/19 at 07:48; Status DC Rocuronium [place] (Zemuron) 50 mg STK-MED ONCE .ROUTE ; Start 11/12/19 at 07:48; Stop 11/12/19 at 07:48; Status DC Remifentanil HCl (Ultiva) 2 mg STK-MED ONCE IV ; Start 11/12/19 at 07:48; Stop 11/12/19 at 07:49; Status DC Sodium Chloride (SODIUM CHLORIDE 20ml) 20 ml STK-MED ONCE IJ ; Start 11/12/19 at 07:49; Stop 11/12/19 at 07:49; Status DC Multi-Ingred Cream/Lotion/Oil/ Oint (Artificial Tears Eye Ointment) 7 raza STK- MED ONCE .ROUTE ; Start 11/12/19 at 07:49; Stop 11/12/19 at 07:49; Status DC Bacitracin 41707 unit/Sodium Chloride 1,000 ml @ 1,000 mls/hr 1X ONCE IRR Last administered on 11/12/19 11:26; Start 11/12/19 at 07:57; Stop 11/12/19 at 08:56; Status DC Sodium Chloride (SODIUM CHLORIDE 20ml) 20 ml STK-MED ONCE IJ ; Start 11/12/19 at 07:57; Stop 11/12/19 at 07:57; Status DC Gelatin (Gelfoam Size 100) 1 each STK-MED ONCE .ROUTE Last administered on 11/12/19 11:26; Start 11/12/19 at 07:59; Stop 11/12/19 at 07:59; Status DC Cellulose (Surgicel Hemostat 4x8) 1 each STK-MED ONCE .ROUTE Last administered on 11/12/19at 12:01; Start 11/12/19 at 07:59; Stop 11/12/19 at 08:00; Status DC Lidocaine/ Epinephrine (LIDOCAINE 1%-EPI 1:100,000 Multi-Dose) 20 ml STK-MED ONCE .ROUTE Last administered on 11/12/19 11:26; Start 11/12/19 at 07:59; Stop 11/12/19 at 08:00; Status DC Thrombin 20,000 unit STK-MED ONCE TP Last administered on 11/12/19 11:26; Start 11/12/19 at 08:00; Stop 11/12/19 at 08:00; Status DC Bacitracin (Bacitracin Zinc Oint Pkt) 1 pkt STK-MED ONCE TP ; Start 11/12/19 at 08:00; Stop 11/12/19 at 08:00; Status DC Propofol 100 ml @ As Directed STK-MED ONCE IV ; Start 11/12/19 at 08:02; Stop 11/12/19 at 08:02; Status DC Insulin Human Lispro (HumaLOG) 11 units 1X ONCE SQ Last administered on 11/12/19at 08:15; Start 11/12/19 at 08:15; Stop 11/12/19 at 08:16; Status DC Gadoterate Meglumine (Dotarem) 24.8 ml 1X ONCE IVP Last administered on 11/12/19at 08:15; Start 11/12/19 at 08:15; Stop 11/12/19 at 08:16; Status DC Insulin Human Regular 100 unit/ Sodium Chloride 101 ml @ 12.484 mls/ hr ONCE ONCE IV ; Start 11/12/19 at 08:15; Stop 11/12/19 at 16:20; Status DC Desflurane (Suprane) 90 ml STK-MED ONCE IH ; Start 11/12/19 at 08:11; Stop 11/12/19 at 08:11; Status DC Fentanyl Citrate (Fentanyl 2ml Vial) 100 mcg STK-MED ONCE .ROUTE ; Start 11/12/19 at 08:20; Stop 11/12/19 at 08:20; Status DC Midazolam HCl (Versed) 2 mg STK-MED ONCE .ROUTE ; Start 11/12/19 at 08:20; Stop 11/12/19 at 08:20; Status DC Rocuronium [place] (Zemuron) 50 mg STK-MED ONCE .ROUTE ; Start 11/12/19 at 09:11; Stop 11/12/19 at 09:12; Status DC Mannitol (Mannitol) 12.5 g STK-MED ONCE .ROUTE ; Start 11/12/19 at 09:22; Stop 11/12/19 at 09:23; Status DC Propofol 100 ml @ As Directed STK-MED ONCE IV ; Start 11/12/19 at 09:22; Stop 11/12/19 at 09:23; Status DC Lidocaine HCl (Xylocaine-Mpf 1% 2ml Vial) 2 ml STK-MED ONCE .ROUTE ; Start 11/12/19 at 09:24; Stop 11/12/19 at 09:24; Status DC Cefazolin Sodium 3 gm/Dextrose 100 ml @ 200 mls/hr 1X PREOP ONCE IV Last administered on 11/12/19at 10:53; Start 11/12/19 at 10:30; Stop 11/12/19 at 10:59; Status DC Gelatin (Gelfoam Size 12-7mm) 1 each STK-MED ONCE .ROUTE Last administered on 11/12/19 12:03; Start 11/12/19 at 11:59; Stop 11/12/19 at 12:01; Status DC Thrombin 20,000 unit STK-MED ONCE TP Last administered on 11/12/19 12:04; Start 11/12/19 at 12:00; Stop 11/12/19 at 12:01; Status DC Gelatin (Gelfoam Size 100) 1 each STK-MED ONCE .ROUTE Last administered on 11/12/19 12:25; Start 11/12/19 at 12:26; Stop 11/12/19 at 12:26; Status DC Gelatin (Gelfoam Size 12-7mm) 1 each STK-MED ONCE .ROUTE Last administered on 11/12/19 13:35; Start 11/12/19 at 13:32; Stop 11/12/19 at 13:33; Status DC Thrombin 20,000 unit STK-MED ONCE TP Last administered on 11/12/19 13:35; S tart 11/12/19 at 13:32; Stop 11/12/19 at 13:33; Status DC Gelatin (Gelfoam Size 12-7mm) 1 each STK-MED ONCE .ROUTE Last administered on 11/12/19 13:55; Start 11/12/19 at 13:55; Stop 11/12/19 at 13:55; Status DC Gelatin (Gelfoam Size 12-7mm) 1 each STK-MED ONCE .ROUTE Last administered on 11/12/19at 13:59; Start 11/12/19 at 13:59; Stop 11/12/19 at 13:59; Status DC Labetalol HCl (Normodyne Iv Push) 5 mg PRN Q15MIN PRN IVP HYPERTENSION; Start 11/12/19 at 15:15 Nicardipine HCl 50 mg/Sodium Chloride 250 ml @ 25 mls/hr TITRATE PRN IV SBP 90-140; Start 11/12/19 at 15:15; Stop 11/15/19 at 08:16; Status DC Hydralazine HCl (Apresoline Inj) 5 mg PRN Q6HRS PRN IVP TO KEEP SBP<140mmHg; Start 11/12/19 at 15:15 Al Hydroxide/Mg Hydroxide (Mylanta Plus Xs) 30 ml PRN Q3HRS PRN PO HEARTBURN / GAS; Start 11/12/19 at 15:15 Calcium Carbonate/ Glycine (Tums) 500 mg PRN Q3HRS PRN PO INDIGESTION Last administered on 11/20/19at 16:15; Start 11/12/19 at 15:15 Diphenhydramine HCl (Benadryl) 25 mg PRN Q6HRS PRN PO ITCHING; Start 11/12/19 at 15:15 Diphenhydramine HCl (Benadryl) 25 mg PRN Q6HRS PRN IV ITCHING; Start 11/12/19 at 15:15 Sodium Chloride (Normal Saline Flush) 3 ml QSHIFT PRN IV AFTER MEDS AND BLOOD DRAWS; Start 11/12/19 at 15:15 Insulin Human Lispro (HumaLOG) 0-5 UNITS TIDWMEALS SQ Last administered on 11/17/19at 08:39; Start 11/12/19 at 17:00; Stop 11/17/19 at 08:54; Status DC Dextrose (Dextrose 50%-Water Syringe) 12.5 gm PRN Q15MIN PRN IV SEE COMMENTS; Start 11/12/19 at 15:15 Dextrose (Iv Dextrose 5%) 250 ml PRN Q15MIN PRN IV SEE COMMENTS; Start 11/12/19 at 15:15; Stop 11/18/19 at 08:17; Status DC Hydromorphone HCl (Dilaudid) 0.2 mg PRN Q1HR PRN IV MODERATE PAIN Last administered on 11/19/19at 03:58; Start 11/12/19 at 15:15 Insulin Human Lispro (HumaLOG VIAL for OP,RR ONLY) 0-10 units PRN Q1HR PRN SQ PER PROTOCOL Last administered on 11/12/19at 15:50; Start 11/12/19 at 16:00; Stop 11/12/19 at 19:54; Status DC Insulin Human Lispro (HumaLOG VIAL for OP,RR ONLY) 4 unit 1X ONCE SQ ; Start 11/12/19 at 16:45; Stop 11/12/19 at 16:46; Status DC Ferrous Sulfate (Iron Oral Solution) 300 mg QD PO Last administered on 11/21/19at 08:43; Start 11/13/19 at 10:00 Gadoterate Meglumine (Dotarem) 10 ml 1X ONCE IVP Last administered on 11/13/19at 15:00; Start 11/13/19 at 14:45; Stop 11/13/19 at 14:48; Status DC Gadoterate Meglumine (Dotarem) 15 ml 1X ONCE IVP Last administered on 11/13/19at 15:00; Start 11/13/19 at 14:45; Stop 11/13/19 at 14:48; Status DC Insulin Human Lispro (HumaLOG) 15 units TIDAC SQ Last administered on 11/15/19at 17:08; Start 11/15/19 at 08:15; Stop 11/16/19 at 08:53; Status DC Insulin Glargine (Lantus Syringe) 20 unit DAILY SQ Last administered on 11/15/19at 09:20; Start 11/15/19 at 09:00; Stop 11/16/19 at 08:53; Status DC Enoxaparin Sodium (Lovenox 40mg Syringe) 40 mg Q12H SQ Last administered on 11/15/19at 23:36; Start 11/15/19 at 10:00; Stop 11/16/19 at 07:50; Status DC Enoxaparin Sodium (Lovenox 40mg Syringe) 40 mg DAILY SQ Last administered on 11/21/19at 08:42; Start 11/16/19 at 09:00 Meropenem 1 gm/ Sodium Chloride 100 ml @ 200 mls/hr Q8HRS IV ; Start 11/16/19 at 14:00; Stop 11/16/19 at 12:31; Status DC Insulin Glargine (Lantus Syringe) 40 unit BID SQ Last administered on 11/21/19at 21:29; Start 11/16/19 at 09:00 Insulin Human Lispro (HumaLOG) 20 units TIDAC SQ Last administered on 11/18/19at 08:35; Start 11/16/19 at 11:30; Stop 11/18/19 at 09:19; Status DC Insulin Glargine (Lantus Syringe) 20 unit 1X ONCE SQ Last administered on 11/16/19at 09:48; Start 11/16/19 at 09:15; Stop 11/16/19 at 09:16; Status DC Fosfomycin Tromethamine (Monurol) 3 gm 1X ONCE PO Last administered on 11/16/19at 12:49; Start 11/16/19 at 12:30; Stop 11/16/19 at 12:33; Status DC Fosfomycin Tromethamine (Monurol) 3 gm 1X ONCE PO Last administered on 11/18/19at 09:57; Start 11/18/19 at 09:00; Stop 11/18/19 at 09:01; Status DC Dexamethasone (Decadron) 4 mg QID PO Last administered on 11/19/19at 20:55; Start 11/17/19 at 13:00; Stop 11/20/19 at 08:47; Status DC Insulin Human Lispro (HumaLOG) 0-9 UNITS TIDWMEALS SQ Last administered on 11/21/19at 17:07; Start 11/17/19 at 12:00 Dextrose (Dextrose 50%-Water Syringe) 12.5 gm PRN Q15MIN PRN IV SEE COMMENTS; Start 11/17/19 at 09:00; Status UNV Dextrose (Iv Dextrose 5%) 250 ml PRN Q15MIN PRN IV SEE COMMENTS; Start 11/17/19 at 09:00 Metoprolol Succinate (Toprol Xl) 50 mg HS PO Last administered on 11/20/19at 21:26; Start 11/18/19 at 21:00 Insulin Human Lispro (HumaLOG) 30 units TIDAC SQ Last administered on 11/21/19at 17:06; Start 11/18/19 at 09:30 Dexamethasone (Decadron) 4 mg BID PO Last administered on 11/21/19at 21:22; Start 11/20/19 at 09:00 Phenyleph/Shark Oil/Min Oil/Petrol (Preparation H) 1 raza PRN QID PRN RC RECTAL PAIN Last administered on 11/21/19at 11:01; Start 11/21/19 at 10:15 Active Scripts Active Sprycel (Dasatinib) 100 Mg Tablet 100 Mg PO BID 30 Days Tramadol Hcl 50 Mg Tablet 50 Mg PO PRN Q8HRS PRN Novolog Flexpen (Insulin Aspart) 100 Unit/1 Ml Insuln.pen 30 Unit SQ TID 30 Days Lantus Solostar (Insulin Glargine,Hum.rec.anlog) 100 Unit/1 Ml Insuln.pen 40 Unit SQ BID Decadron (Dexamethasone) 4 Mg Tablet 1 Tab PO BID 3 Days Culturelle (Lactobacillus Rhamnosus Gg) 1 Each Cap.sprink 1 Cap PO BID 30 Days Reported Roxicodone (Oxycodone HCl) 5 Mg Tablet 1 Tab PO PRN Q6HRS PRN Ferrous Sulfate 325 Mg Tablet 1 Tab PO DAILY Keppra (Levetiracetam) 500 Mg Tablet 1 Tab PO BID 30 Days Cymbalta (Duloxetine Hcl) 60 Mg Capsule.dr 1 Cap PO BID Lyrica (Pregabalin) 150 Mg Capsule 1 Cap PO BID Crestor (Rosuvastatin Calcium) 40 Mg Tablet 0.5 Tab PO DAILY Polyethylene Glycol 3350 2,500 Gm Powder 17 Gm PO PRN PRN Xanax (Alprazolam) 1 Mg Tablet 1 Tab PO TID Restasis (Cyclosporine) 1 Each Droperette 1 Drop EACHEYE BID Proair Hfa Inhaler (Albuterol Sulfate) 8.5 Gm Hfa.aer.ad 1 Puff INH PRN Q6HRS PRN Ondansetron Hcl 4 Mg Tablet 2 Tab PO PRN Q8HRS PRN Nystatin 15 Gm Powder 1 [place] TP BID Fluticasone Propionate Nasal [place] (Fluticasone Propionate) 16 Gm [place].susp 2 [place] NS DAILY Senna-Docusate Sodium Tablet (Sennosides/Docusate Sodium) 1 Each Tablet 1 Each PO BID LAST DOSE THIS AM NEXT DOSE TONIGHT Protonix (Pantoprazole Sodium) 40 Mg Tablet.dr 40 Mg PO DAILY LST DOSE THIS AM NEXT DOSE TOMORROW AM Carafate (Sucralfate) 1 Gm Tablet 1 Tab PO TID Meds not given this hospital admission. May resume home medications as approved by Physician. MAY TAKE WHEN AVAILABLE Metoprolol Succinate ( Xl ) (Metoprolol Succinate) 100 Mg Tab.er.24h 50 Mg PO HS Vitals/I & O Vital Sign - Last 24 Hours 11/21/19 11/21/19 11/21/19 11/21/19 09:54 11:00 11:01 12:02 Temp 98.5 98.5 Pulse 89 Resp 16 20 16 16 B/P (MAP) 102/53 (69) Pulse Ox 97 O2 Delivery Room Air Room Air Room Air Room Air 11/21/19 11/21/19 11/21/19 11/21/19 12:51 13:26 15:00 17:03 Temp 98.2 98.2 Pulse 95 Resp 16 16 18 16 B/P (MAP) 107/94 (98) Pulse Ox 94 O2 Delivery Room Air Room Air Room Air Room Air 11/21/19 11/21/19 11/21/19 11/21/19 17:34 17:35 18:33 19:00 Temp 98.8 98.8 Pulse 100 Resp 16 16 16 18 B/P (MAP) 82/50 (61) Pulse Ox 95 O2 Delivery Room Air Room Air Room Air Room Air 11/21/19 11/21/19 11/21/19 11/21/19 20:00 21:00 21:23 22:07 Pulse 100 B/P (MAP) 82/50 O2 Delivery Room Air Room Air Room Air 11/21/19 11/22/19 11/22/19 11/22/19 23:00 01:42 02:13 03:00 Temp 99.2 98.5 99.2 98.5 Pulse 100 87 Resp 18 18 B/P (MAP) 122/61 (81) 112/60 (77) Pulse Ox 99 97 O2 Delivery Room Air Room Air Nasal Cannula Room Air O2 Flow Rate 2.0 11/22/19 11/22/19 11/22/19 11/22/19 03:25 04:27 05:40 06:14 O2 Delivery Nasal Cannula Nasal Cannula Nasal Cannula Nasal Cannula O2 Flow Rate 2.0 2.0 2.0 2.0 11/22/19 11/22/19 07:00 08:00 Temp 98.2 98.2 Pulse 54 Resp 16 B/P (MAP) 92/61 (71) Pulse Ox 92 O2 Delivery Room Air Room Air Intake and Output 11/21/19 11/21/19 11/22/19 15:00 23:00 07:00 Intake Total 100 ml Balance 100 ml Nutrition Consultation Dietary Evaluation: Recommendations by RD: Dietary education by RD, Increase Calorie Intake, Protein supplementation Comments: REC ADA/cardiac diet ,glucerna tid Expected Outcomes/Goals: PO intake to meet >75% est needs- met at times, goal ongoing Interpretation of weight loss: >5% in 1 month Malnutrition Findings: Food and Nutrition Intake (Sev: <50% est energy req 5days Weight Status: Morbidly Obese LUANNE OWUSU MD Nov 22, 2019 09:15
[2019-11-22] MEDS: INSULIN GLARGINE SYRINGE. SQ SCH ×2 (09:21→22:19)
--- NOTE | 2019-11-22 10:10 | PDOC ---
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 The mass abuts the superior sagittal sinus without definite involvement onthis examination. Associated vasogenic edema with minimal mass effect and midline shift to the right by approximately 8 mm, stable. There is persistent mass effect on the atria of the left lateral ventricle without hydrocephalus. head ct 11/12 post op:Left lateral vertex level hematoma which may represent subdural or epidural hematoma in this postoperative patient. Left vertex intraparenchymal hematomas also are seen. Parafalcine hemorrhage which extends along the left tentorium also noted. Postoperative findings are present with the left vertex level mass no longer being delineated. Left maxillary sinusitis. brain MRI 11/13 MPRESSION: Post left parietal craniotomy with resection of the extra-axial mass from the left parietal region. Residual enhancing mass is seen superiorly and medially within the left region which measures 2.8 cm in size. Intraparenchymal and extra-axial hemorrhage is seen within the left parietal region as discussed above. Edema is seen involving the left parietal lobe. The hemorrhage and edema does not appear significantly changed since the patient's CT scan from yesterday. 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, meningeal involvement is extremely rare especially in chronic phase, can be seen in blast crisis, does not have blast crisis based on bone marrow or on meingioma resection per path Leukocytosis: CML, on dasatinib, cont q day Abdominal Hematoma: Improved w/ stopping anticoagulation, now on ppx only, will change the lovenox ppx to apixaban ppx Anemia: transfuse prn Hb <7, suspect AOCI in addition to superficial abdom bleed w/ hematoma, on po Fe Brain mass: per NSG, steroid taper per others, still w/ R weakness, meningioma on path thus far, pending [place] review h/o clotting: only on ppx lovenox at the moment, can move to ppx apix starting 11/23, and later to full dose anticoagulation w/ apixaban as tolerated Dispo: to rehab, we'll f/u as outpt prn Thank you kindly and please do not hesitate to call with questions. OBJECTIVE Vital Signs Vital Signs Date Time Temp Pulse Resp B/P (MAP) Pulse Ox O2 Delivery O2 Flow Rate FiO2 11/22/19 10:03 16 Room Air 11/22/19 09:15 16 Room Air 11/22/19 08:00 Room Air 11/22/19 07:00 98.2 54 16 92/61 (71) 92 Room Air 98.2 11/22/19 06:14 Nasal Cannula 2.0 11/22/19 05:40 Nasal Cannula 2.0 11/22/19 04:27 Nasal Cannula 2.0 11/22/19 03:25 Nasal Cannula 2.0 11/22/19 03:00 98.5 87 18 112/60 (77) 97 Room Air 98.5 11/22/19 02:13 Nasal Cannula 2.0 11/22/19 01:42 Room Air 11/21/19 23:00 99.2 100 18 122/61 (81) 99 Room Air 99.2 11/21/19 22:07 Room Air 11/21/19 21:23 Room Air 11/21/19 21:00 100 82/50 11/21/19 20:00 Room Air 11/21/19 19:00 98.8 100 18 82/50 (61) 95 Room Air 98.8 11/21/19 18:33 16 Room Air 11/21/19 17:35 16 Room Air 11/21/19 17:34 16 Room Air 11/21/19 17:03 16 Room Air 11/21/19 15:00 98.2 95 18 107/94 (98) 94 Room Air 98.2 11/21/19 13:26 16 Room Air 11/21/19 12:51 16 Room Air 11/21/19 12:02 16 Room Air 11/21/19 11:01 16 Room Air 11/21/19 11:00 98.5 89 20 102/53 (69) 97 Room Air 98.5 I & O Intake and Output 11/22/19 07:00 Intake Total 100 ml Balance 100 ml Intake Oral 100 ml # Voids 2 # Bowel Movements 2 COMMENT Lab Laboratory Tests Test 11/21/19 11:44 11/21/19 16:23 11/21/19 21:01 11/22/19 07:36 Glucose (Fingerstick) 132 mg/dL (70-99) 225 mg/dL (70-99) 196 mg/dL (70-99) 145 mg/dL (70-99) Nutrition Consultation Dietary Evaluation: Recommendations by RD: Dietary education by RD, Increase Calorie Intake, Protein supplementation Comments: REC ADA/cardiac diet ,glucerna tid Expected Outcomes/Goals: PO intake to meet >75% est needs- met at times, goal ongoing Interpretation of weight loss: >5% in 1 month Malnutrition Findings: Food and Nutrition Intake (Sev: <50% est energy req 5days Weight Status: Morbidly Obese ENEDELIA HUYNH MD Nov 22, 2019 10:10
--- NOTE | 2019-11-22 10:57 | NUR ---
[facility] with [facility] and they will need updated notes for MD to review. SW phoned and faxed [facility]. Left a VM to Eusebia at . Acceptance pending.
[2019-11-22 11:00] VITALS: BP 101/56
--- NOTE | 2019-11-22 11:42 | PDOC ---
PROGRESS NOTES Subjective Subjective Denies acute changes. Objective Objective Vital Signs Date Time Temp Pulse Resp B/P (MAP) Pulse Ox O2 Delivery O2 Flow Rate FiO2 11/22/19 10:48 16 Room Air 11/22/19 07:00 98.2 54 92/61 (71) 92 98.2 11/22/19 06:14 2.0 Intake and Output 11/22/19 06:59 Intake Total 100 ml Balance 100 ml Intake Oral 100 ml # Voids 2 # Bowel Movements 2 Physical Exam Physical Exam AAOx4, NAD, speech improving, RLE strength slight improved compared to yesterday, RUE unchanged, reports improving sensation LT right side, incision c/d/i with edd Assessment Assessment Problems Medical Problems: (1) Abdominal hemorrhage Status: Acute (2) Generalized weakness Status: Acute (3) Lactic acidosis Status: Acute (4) Leukocytosis Status: Acute Plan Plan of Care -d/c to rehab pending insurance -continue therapies -steroid taper over four weeks -edd out end of next week Comment Review of Relevant I have reviewed the following items mustapha (where applicable) has been applied. Labs Laboratory Tests Test 11/20/19 16:42 11/20/19 20:39 11/21/19 08:05 11/21/19 11:44 Glucose (Fingerstick) 117 mg/dL (70-99) 214 mg/dL (70-99) 155 mg/dL (70-99) 132 mg/dL (70-99) Test 11/21/19 16:23 11/21/19 21:01 11/22/19 07:36 Glucose (Fingerstick) 225 mg/dL (70-99) 196 mg/dL (70-99) 145 mg/dL (70-99) Laboratory Tests Test 11/21/19 11:44 11/21/19 16:23 11/21/19 21:01 11/22/19 07:36 Glucose (Fingerstick) 132 mg/dL (70-99) 225 mg/dL (70-99) 196 mg/dL (70-99) 145 mg/dL (70-99) Microbiology 11/10/19 Urine Culture - Final, Complete 11/10/19 Urine Culture Result 1 (СВЕТЛАНА) - Final, Complete 11/10/19 Antimicrobic Susceptibility - Final, Complete 11/01/19 Blood Culture - Final, Complete NO GROWTH AFTER 5 DAYS Medications Current Medications Sodium Chloride 500 ml @ 500 mls/hr 1X ONCE IV Last administered on 11/01/19at 13:00; Start 11/01/19 at 13:00; Stop 11/01/19 at 13:59; Status DC Ondansetron HCl (Zofran) 4 mg 1X ONCE IV Last administered on 11/01/19at 13:26; Start 11/01/19 at 13:00; Stop 11/01/19 at 13:13; Status DC Hydromorphone HCl (Dilaudid) 0.5 mg 1X STAT IVP Last administered on 11/01/19at 13:26; Start 11/01/19 at 12:59; Stop 11/01/19 at 13:13; Status DC Iohexol (Omnipaque 300 Mg/ml) 75 ml 1X ONCE IV Last administered on 11/01/19at 14:08; Start 11/01/19 at 13:45; Stop 11/01/19 at 13:46; Status DC Info (CONTRAST GIVEN -- Rx MONITORING) 1 each PRN DAILY PRN MC SEE COMMENTS; Start 11/01/19 at 14:00; Stop 11/03/19 at 13:59; Status DC Hydromorphone HCl (Dilaudid) 0.5 mg 1X STAT IVP Last administered on 11/01/19at 16:53; Start 11/01/19 at 16:21; Stop 11/01/19 at 16:23; Status DC Sodium Chloride 1,000 ml @ 1,000 mls/hr 1X ONCE IV Last administered on 11/01/19at 16:30; Start 11/01/19 at 16:30; Stop 11/01/19 at 17:29; Status DC Sodium Chloride 500 ml @ 500 mls/hr 1X ONCE IV Last administered on 11/01/19at 16:30; Start 11/01/19 at 16:30; Stop 11/01/19 at 17:29; Status DC Albuterol Sulfate (Ventolin Neb Soln) 2.5 mg PRN Q6HRS PRN INH SHORTNESS OF BREATH; Start 11/01/19 at 16:30; Status Cancel Alprazolam (Xanax) 0.25 mg PRN TID PRN PO anxiety; Start 11/01/19 at 16:30; Stop 11/01/19 at 17:11; Status DC Amlodipine Besylate (Norvasc) 5 mg DAILY PO Last administered on 11/16/19at 08:47; Start 11/02/19 at 09:00; Stop 11/18/19 at 09:18; Status DC Cyclosporine (Restasis) 1 drop BID OU Last administered on 11/22/19 09:12; Start 11/01/19 at 21:00 Fluticasone Propionate (Flonase) 2 spray DAILY NS Last administered on 11/22/19 09:12; Start 11/02/19 at 09:00 Lactobacillus Rhamnosus (Culturelle) 1 cap BID PO Last administered on 11/09/19 08:28; Start 11/01/19 at 21:00; Stop 11/09/19 at 16:57; Status DC Lidocaine (Lidoderm) 1 patch DAILY TP ; Start 11/02/19 at 09:00; Stop 11/01/19 at 20:34; Status DC Metoprolol Succinate (Toprol Xl) 100 mg HS PO Last administered on 11/17/19at 21:05; Start 11/01/19 at 21:00; Stop 11/18/19 at 09:18; Status DC Nystatin (Nystop) 1 raza BID TP Last administered on 11/22/19 09:12; Start 11/01/19 at 21:00 Pantoprazole Sodium (Protonix) 40 mg DAILYAC PO Last administered on 11/09/19at 08:28; Start 11/02/19 at 07:30; Stop 11/09/19 at 16:54; Status DC Senna/Docusate Sodium (Senna Plus) 1 tab BID PO Last administered on 11/18/19at 09:37; Start 11/01/19 at 21:00 Sucralfate (Carafate) 1 gm TIDAC PO Last administered on 11/22/19 09:13; Start 11/01/19 at 17:30 Tramadol HCl (Ultram) 50 mg PRN Q8HRS PRN PO PAIN; Start 11/01/19 at 16:30; Stop 11/01/19 at 19:43; Status DC Insulin Glargine (Lantus Syringe) 30 unit QHS SQ Last administered on 11/06/19at 21:16; Start 11/01/19 at 21:00; Stop 11/07/19 at 15:56; Status DC Ondansetron HCl (Zofran Odt) 8 mg PRN Q8HRS PRN PO NAUSEA/VOMITING Last administered on 11/17/19at 12:12; Start 11/01/19 at 17:15 Polyethylene Glycol (miraLAX PACKET) 17 gm PRN DAILY PRN PO CONSTIPATION, 1ST CHOICE Last administered on 11/17/19at 08:30; Start 11/01/19 at 17:11 Atorvastatin Calcium (Lipitor) 80 mg QHS PO Last administered on 11/21/19at 21:22; Start 11/01/19 at 21:00 Insulin Human Lispro (HumaLOG) 0-9 UNITS TIDAC SQ Last administered on 11/07/19at 12:20; Start 11/01/19 at 16:30; Stop 11/07/19 at 15:56; Status DC Dextrose (Dextrose 50%-Water Syringe) 12.5 gm PRN Q15MIN PRN IV SEE COMMENTS; Start 11/01/19 at 16:30; Stop 11/12/19 at 15:36; Status DC Ondansetron HCl (Zofran) 4 mg PRN Q8HRS PRN IV NAUSEA/VOMITING; Start 11/01/19 at 16:30; Stop 11/02/19 at 16:29; Status DC Alprazolam (Xanax) 0.25 mg PRN TID PRN PO anxiety Last administered on 11/22/19at 09:13; Start 11/01/19 at 17:11 Miscellaneous (Lidoderm Patch Removal) 1 ea QHS MC ; Start 11/01/19 at 21:00; Stop 11/01/19 at 20:34; Status DC Ceftriaxone Sodium (Rocephin) 1 gm QHS IVP Last administered on 11/15/19at 21:26; Start 11/01/19 at 18:45; Stop 11/16/19 at 08:52; Status DC Tramadol HCl (Ultram) 50 mg PRN Q8HRS PRN PO MILD PAIN 1-3 Last administered on 11/15/19at 17:56; Start 11/01/19 at 19:45 Hydromorphone HCl (Dilaudid) 1 mg PRN Q4HRS PRN IV SEVERE PAIN Last administered on 11/22/19at 10:03; Start 11/01/19 at 20:15 Lidocaine (Lidoderm) 1 patch QHS TP Last administered on 11/18/19at 20:49; Start 11/01/19 at 21:00 Miscellaneous (Lidoderm Patch Removal) 1 ea DAILY MC Last administered on 11/22/19 09:00; Start 11/02/19 at 09:00 Albumin Human 500 ml @ 125 mls/hr 1X ONCE IV ; Start 11/02/19 at 02:00; Stop 11/02/19 at 05:59; Status Cancel Acetaminophen (Tylenol) 650 mg 1X PRN PRN PO PRE-TRANSFUSION; Start 11/02/19 at 06:45; Stop 11/03/19 at 14:16; Status DC Diphenhydramine HCl (Benadryl Oral Elixir) 12.5 mg 1X PRN PRN PO PRE- TRANSFUSION; Start 11/02/19 at 06:45; Stop 11/03/19 at 14:16; Status DC Diphenhydramine HCl (Benadryl) 25 mg PRN 1X PRN PO PRE-TRANSFUSION; Start 11/02/19 at 06:45; Stop 11/03/19 at 14:16; Status DC Lactulose (LACTULOSE 300ML for RECTAL) 200 gm Q6HRS OH Last administered on 11/02/19at 18:00; Start 11/02/19 at 18:00; Stop 11/04/19 at 14:44; Status DC Sodium Chloride 1,000 ml @ 100 mls/hr Q10H IV Last administered on 11/13/19at 15:30; Start 11/02/19 at 12:00; Stop 11/14/19 at 11:28; Status DC Lactulose (Lactulose) 20 gm PRN DAILY PRN PO CONSTIPATION, 2ND CHOICE; Start 11/04/19 at 14:45 Oxycodone HCl (Roxicodone) 5 mg PRN Q6HRS PRN PO MODERATE TO SEVERE PAIN Last administered on 11/22/19at 09:15; Start 11/04/19 at 14:45 Lidocaine HCl (Buffered Lidocaine 1%) 3 ml STK-MED ONCE .ROUTE ; Start 11/05/19 at 08:13; Stop 11/05/19 at 08:13; Status DC Lidocaine HCl (Buffered Lidocaine 1%) 3 ml STK-MED ONCE .ROUTE ; Start 11/05/19 at 08:14; Stop 11/05/19 at 08:14; Status DC Midazolam HCl (Versed) 2 mg STK-MED ONCE .ROUTE ; Start 11/05/19 at 08:40; Stop 11/05/19 at 08:40; Status DC Fentanyl Citrate (Fentanyl 2ml Vial) 100 mcg STK-MED ONCE .ROUTE ; Start 11/05/19 at 08:40; Stop 11/05/19 at 08:41; Status DC Lidocaine HCl (Buffered Lidocaine 1%) 3 ml 1X ONCE IJ Last administered on 11/05/19at 08:45; Start 11/05/19 at 08:45; Stop 11/05/19 at 08:50; Status DC Midazolam HCl (Versed) 2 mg 1X ONCE IV Last administered on 11/05/19at 08:45; Start 11/05/19 at 08:45; Stop 11/05/19 at 08:50; Status DC Fentanyl Citrate (Fentanyl 2ml Vial) 100 mcg 1X ONCE IV Last administered on 11/05/19at 08:45; Start 11/05/19 at 08:45; Stop 11/05/19 at 08:50; Status DC Dexamethasone Sodium Phosphate (Decadron) 4 mg Q6HRS IVP Last administered on 11/17/19at 06:03; Start 11/06/19 at 09:00; Stop 11/17/19 at 08:53; Status DC Insulin Glargine (Lantus Syringe) 40 unit QHS SQ Last administered on 11/15/19at 21:00; Start 11/07/19 at 21:00; Stop 11/16/19 at 08:53; Status DC Insulin Human Lispro (HumaLOG) 10 units TIDAC SQ Last administered on 11/14/19at 17:31; Start 11/07/19 at 16:30; Stop 11/15/19 at 08:16; Status DC Insulin Human Lispro (HumaLOG) 0-9 UNITS TIDWMEALS SQ Last administered on 11/11/19at 17:13; Start 11/07/19 at 17:00; Stop 11/12/19 at 15:37; Status DC Insulin Human Lispro (HumaLOG) 19 units 1X ONCE SQ Last administered on 11/09/19at 12:41; Start 11/09/19 at 12:15; Stop 11/09/19 at 12:16; Status DC Insulin Human Lispro (HumaLOG) 5 units 1X ONCE SQ Last administered on 11/09/19at 13:52; Start 11/09/19 at 13:30; Stop 11/09/19 at 13:31; Status DC Non-Formulary Medication 1 ea DAILY PO ; Start 11/09/19 at 16:30; Status Cancel Ondansetron HCl (Zofran) 4 mg PRN Q6HRS PRN IV NAUSEA/VOMITING; Start 11/12/19 at 07:00; Stop 11/12/19 at 19:56; Status DC Fentanyl Citrate (Fentanyl 2ml Vial) 25 mcg PRN Q5MIN PRN IV MILD PAIN 1-3; Start 11/12/19 at 07:00; Stop 11/12/19 at 19:56; Status DC Fentanyl Citrate (Fentanyl 2ml Vial) 50 mcg PRN Q5MIN PRN IV MODERATE TO SEVERE PAIN; Start 11/12/19 at 07:00; Stop 11/12/19 at 19:56; Status DC Morphine Sulfate (Morphine Sulfate) 1 mg PRN Q10MIN PRN IV SEVERE PAIN 7-10; Start 11/12/19 at 07:00; Stop 11/09/19 at 17:30; Status DC Ringer's Solution 1,000 ml @ 30 mls/hr Q24H IV Last administered on 11/12/19at 10:00; Start 11/12/19 at 07:00; Stop 11/12/19 at 18:59; Status DC Lidocaine HCl (Xylocaine-Mpf 1% 2ml Vial) 2 ml PRN 1X PRN ID PRIOR TO IV START; Start 11/12/19 at 07:00; Stop 11/12/19 at 19:56; Status DC Hydromorphone HCl (Dilaudid) 0.5 mg PRN Q10MIN PRN IV SEV PAIN, Second choice; Start 11/12/19 at 07:00; Stop 11/12/19 at 19:56; Status DC Prochlorperazine Edisylate (Compazine) 5 mg PACU PRN PRN IV NAUSEA, MRX1; Start 11/12/19 at 07:00; Stop 11/12/19 at 19:56; Status DC Pantoprazole Sodium (Protonix) 40 mg DAILYAC PO Last administered on 11/14/19at 08:19; Start 11/09/19 at 18:30; Stop 11/15/19 at 09:25; Status DC Levetiracetam (Keppra) 500 mg BID PO Last administered on 11/22/19at 09:13; Start 11/09/19 at 21:00 Non-Formulary Medication 1 ea DAILY PO Last administered on 11/22/19at 09:12; Start 11/12/19 at 09:00 Insulin Human Lispro (HumaLOG) 8 units 1X ONCE SQ Last administered on 11/10/19at 12:32; Start 11/10/19 at 12:15; Stop 11/10/19 at 12:16; Status DC Propofol 20 ml @ As Directed STK-MED ONCE IV ; Start 11/12/19 at 07:48; Stop 11/12/19 at 07:48; Status DC Dexamethasone Sodium Phosphate (Decadron) 20 mg STK-MED ONCE .ROUTE ; Start 11/12/19 at 07:48; Stop 11/12/19 at 07:48; Status DC Lidocaine HCl (Lidocaine Pf 2% Vial) 5 ml STK-MED ONCE .ROUTE ; Start 11/12/19 at 07:48; Stop 11/12/19 at 07:48; Status DC Ondansetron HCl (Zofran) 4 mg STK-MED ONCE .ROUTE ; Start 11/12/19 at 07:48; S top 11/12/19 at 07:48; Status DC Phenylephrine HCl (Tony-Synephrine Inj) 10 mg STK-MED ONCE .ROUTE ; Start 11/12/19 at 07:48; Stop 11/12/19 at 07:48; Status DC Propofol 50 ml @ As Directed STK-MED ONCE IV ; Start 11/12/19 at 07:48; Stop 11/12/19 at 07:48; Status DC Rocuronium [place] (Zemuron) 50 mg STK-MED ONCE .ROUTE ; Start 11/12/19 at 07:48; Stop 11/12/19 at 07:48; Status DC Remifentanil HCl (Ultiva) 2 mg STK-MED ONCE IV ; Start 11/12/19 at 07:48; Stop 12/23/19 at 07:49; Status DC Sodium Chloride (SODIUM CHLORIDE 20ml) 20 ml STK-MED ONCE IJ ; Start 11/12/19 at 07:49; Stop 11/12/19 at 07:49; Status DC Multi-Ingred Cream/Lotion/Oil/ Oint (Artificial Tears Eye Ointment) 7 raza STK- MED ONCE .ROUTE ; Start 11/12/19 at 07:49; Stop 11/12/19 at 07:49; Status DC Bacitracin 90423 unit/Sodium Chloride 1,000 ml @ 1,000 mls/hr 1X ONCE IRR Last administered on 11/12/19 11:26; Start 11/12/19 at 07:57; Stop 11/12/19 at 08:56; Status DC Sodium Chloride (SODIUM CHLORIDE 20ml) 20 ml STK-MED ONCE IJ ; Start 11/12/19 at 07:57; Stop 11/12/19 at 07:57; Status DC Gelatin (Gelfoam Size 100) 1 each STK-MED ONCE .ROUTE Last administered on 11/12/19 11:26; Start 11/12/19 at 07:59; Stop 11/12/19 at 07:59; Status DC Cellulose (Surgicel Hemostat 4x8) 1 each STK-MED ONCE .ROUTE Last administered on 11/12/19at 12:01; Start 11/12/19 at 07:59; Stop 11/12/19 at 08:00; Status DC Lidocaine/ Epinephrine (LIDOCAINE 1%-EPI 1:100,000 Multi-Dose) 20 ml STK-MED ONCE .ROUTE Last administered on 11/12/19 11:26; Start 11/12/19 at 07:59; Stop 11/12/19 at 08:00; Status DC Thrombin 20,000 unit STK-MED ONCE TP Last administered on 11/12/19 11:26; Start 11/12/19 at 08:00; Stop 11/12/19 at 08:00; Status DC Bacitracin (Bacitracin Zinc Oint Pkt) 1 pkt STK-MED ONCE TP ; Start 11/12/19 at 08:00; Stop 11/12/19 at 08:00; Status DC Propofol 100 ml @ As Directed STK-MED ONCE IV ; Start 11/12/19 at 08:02; Stop 11/12/19 at 08:02; Status DC Insulin Human Lispro (HumaLOG) 11 units 1X ONCE SQ Last administered on 1 01/13/19at 08:15; Start 11/12/19 at 08:15; Stop 11/12/19 at 08:16; Status DC Gadoterate Meglumine (Dotarem) 24.8 ml 1X ONCE IVP Last administered on 11/12/19at 08:15; Start 11/12/19 at 08:15; Stop 11/12/19 at 08:16; Status DC Insulin Human Regular 100 unit/ Sodium Chloride 101 ml @ 12.484 mls/ hr ONCE ONCE IV ; Start 11/12/19 at 08:15; Stop 11/12/19 at 16:20; Status DC Desflurane (Suprane) 90 ml STK-MED ONCE IH ; Start 11/12/19 at 08:11; Stop 11/12/19 at 08:11; Status DC Fentanyl Citrate (Fentanyl 2ml Vial) 100 mcg STK-MED ONCE .ROUTE ; Start 11/12/19 at 08:20; Stop 11/12/19 at 08:20; Status DC Midazolam HCl (Versed) 2 mg STK-MED ONCE .ROUTE ; Start 11/12/19 at 08:20; Stop 11/12/19 at 08:20; Status DC Rocuronium [place] (Zemuron) 50 mg STK-MED ONCE .ROUTE ; Start 11/12/19 at 09:11; Stop 11/12/19 at 09:12; Status DC Mannitol (Mannitol) 12.5 g STK-MED ONCE .ROUTE ; Start 11/12/19 at 09:22; Stop 11/12/19 at 09:23; Status DC Propofol 100 ml @ As Directed STK-MED ONCE IV ; Start 11/12/19 at 09:22; Stop 11/12/19 at 09:23; Status DC Lidocaine HCl (Xylocaine-Mpf 1% 2ml Vial) 2 ml STK-MED ONCE .ROUTE ; Start at 09:24; Stop 11/12/19 at 09:24; Status DC Cefazolin Sodium 3 gm/Dextrose 100 ml @ 200 mls/hr 1X PREOP ONCE IV Last administered on 11/12/19at 10:53; Start 11/12/19 at 10:30; Stop 11/12/19 at 10:59; Status DC Gelatin (Gelfoam Size 12-7mm) 1 each STK-MED ONCE .ROUTE Last administered on 11/12/19 12:03; Start 11/12/19 at 11:59; Stop 11/12/19 at 12:01; Status DC Thrombin 20,000 unit STK-MED ONCE TP Last administered on 11/12/19 12:04; Start 11/12/19 at 12:00; Stop 11/12/19 at 12:01; Status DC Gelatin (Gelfoam Size 100) 1 each STK-MED ONCE .ROUTE Last administered on 11/12/19at 12:25; Start 11/12/19 at 12:26; Stop 11/12/19 at 12:26; Status DC Gelatin (Gelfoam Size 12-7mm) 1 each STK-MED ONCE .ROUTE Last administered on 11/12/19at 13:35; Start 11/12/19 at 13:32; Stop 11/12/19 at 13:33; Status DC Thrombin 20,000 unit STK-MED ONCE TP Last administered on 11/12/19 13:35; Start 11/12/19 at 13:32; Stop 11/12/19 at 13:33; Status DC Gelatin (Gelfoam Size 12-7mm) 1 each STK-MED ONCE .ROUTE Last administered on 11/12/19 13:55; Start 11/12/19 at 13:55; Stop 11/12/19 at 13:55; Status DC Gelatin (Gelfoam Size 12-7mm) 1 each STK-MED ONCE .ROUTE Last administered on 11/12/19at 13:59; Start 11/12/19 at 13:59; Stop 11/12/19 at 13:59; Status DC Labetalol HCl (Normodyne Iv Push) 5 mg PRN Q15MIN PRN IVP HYPERTENSION; Start 11/12/19 at 15:15 Nicardipine HCl 50 mg/Sodium Chloride 250 ml @ 25 mls/hr TITRATE PRN IV SBP 90-140; Start 11/12/19 at 15:15; Stop 11/15/19 at 08:16; Status DC Hydralazine HCl (Apresoline Inj) 5 mg PRN Q6HRS PRN IVP TO KEEP SBP<140mmHg; Start 11/12/19 at 15:15 Al Hydroxide/Mg Hydroxide (Mylanta Plus Xs) 30 ml PRN Q3HRS PRN PO HEARTBURN / GAS; Start 11/12/19 at 15:15 Calcium Carbonate/ Glycine (Tums) 500 mg PRN Q3HRS PRN PO INDIGESTION Last administered on 11/20/19at 16:15; Start 11/12/19 at 15:15 Diphenhydramine HCl (Benadryl) 25 mg PRN Q6HRS PRN PO ITCHING; Start 11/12/19 at 15:15 Diphenhydramine HCl (Benadryl) 25 mg PRN Q6HRS PRN IV ITCHING; Start 11/12/19 at 15:15 Sodium Chloride (Normal Saline Flush) 3 ml QSHIFT PRN IV AFTER MEDS AND BLOOD DRAWS; Start 11/12/19 at 15:15 Insulin Human Lispro (HumaLOG) 0-5 UNITS TIDWMEALS SQ Last administered on 11/17/19at 08:39; Start 11/12/19 at 17:00; Stop 11/17/19 at 08:54; Status DC Dextrose (Dextrose 50%-Water Syringe) 12.5 gm PRN Q15MIN PRN IV SEE COMMENTS; Start 11/12/19 at 15:15 Dextrose (Iv Dextrose 5%) 250 ml PRN Q15MIN PRN IV SEE COMMENTS; Start 11/12/19 at 15:15; Stop 11/18/19 at 08:17; Status DC Hydromorphone HCl (Dilaudid) 0.2 mg PRN Q1HR PRN IV MODERATE PAIN Last administered on 11/19/19at 03:58; Start 11/12/19 at 15:15 Insulin Human Lispro (HumaLOG VIAL for OP,RR ONLY) 0-10 units PRN Q1HR PRN SQ PER PROTOCOL Last administered on 11/12/19at 15:50; Start 11/12/19 at 16:00; Stop 11/12/19 at 19:54; Status DC Insulin Human Lispro (HumaLOG VIAL for OP,RR ONLY) 4 unit 1X ONCE SQ ; Start 11/12/19 at 16:45; Stop 11/12/19 at 16:46; Status DC Ferrous Sulfate (Iron Oral Solution) 300 mg QD PO Last administered on 11/22/19at 09:12; Start 11/13/19 at 10:00 Gadoterate Meglumine (Dotarem) 10 ml 1X ONCE IVP Last administered on 11/13/19at 15:00; Start 11/13/19 at 14:45; Stop 11/13/19 at 14:48; Status DC Gadoterate Meglumine (Dotarem) 15 ml 1X ONCE IVP Last administered on 11/13/19at 15:00; Start 11/13/19 at 14:45; Stop 11/13/19 at 14:48; Status DC Insulin Human Lispro (HumaLOG) 15 units TIDAC SQ Last administered on 11/15/19at 17:08; Start 11/15/19 at 08:15; Stop 11/16/19 at 08:53; Status DC Insulin Glargine (Lantus Syringe) 20 unit DAILY SQ Last administered on 11/15/19at 09:20; Start 11/15/19 at 09:00; Stop 11/16/19 at 08:53; Status DC Enoxaparin Sodium (Lovenox 40mg Syringe) 40 mg Q12H SQ Last administered on 11/15/19at 23:36; Start 11/15/19 at 10:00; Stop 11/16/19 at 07:50; Status DC Enoxaparin Sodium (Lovenox 40mg Syringe) 40 mg DAILY SQ Last administered on 11/22/19at 09:12; Start 11/16/19 at 09:00; Stop 11/22/19 at 10:06; Status DC Meropenem 1 gm/ Sodium Chloride 100 ml @ 200 mls/hr Q8HRS IV ; Start 11/16/19 at 14:00; Stop 11/16/19 at 12:31; Status DC Insulin Glargine (Lantus Syringe) 40 unit BID SQ Last administered on 11/22/19at 09:21; Start 11/16/19 at 09:00 Insulin Human Lispro (HumaLOG) 20 units TIDAC SQ Last administered on 11/18/19at 08:35; Start 11/16/19 at 11:30; Stop 11/18/19 at 09:19; Status DC Insulin Glargine (Lantus Syringe) 20 unit 1X ONCE SQ Last administered on 11/16/19at 09:48; Start 11/16/19 at 09:15; Stop 11/16/19 at 09:16; Status DC Fosfomycin Tromethamine (Monurol) 3 gm 1X ONCE PO Last administered on 11/16/19at 12:49; Start 11/16/19 at 12:30; Stop 11/16/19 at 12:33; Status DC Fosfomycin Tromethamine (Monurol) 3 gm 1X ONCE PO Last administered on 11/18/19at 09:57; Start 11/18/19 at 09:00; Stop 11/18/19 at 09:01; Status DC Dexamethasone (Decadron) 4 mg QID PO Last administered on 11/19/19at 20:55; Start 11/17/19 at 13:00; Stop 11/20/19 at 08:47; Status DC Insulin Human Lispro (HumaLOG) 0-9 UNITS TIDWMEALS SQ Last administered on 11/21/19at 17:07; Start 11/17/19 at 12:00 Dextrose (Dextrose 50%-Water Syringe) 12.5 gm PRN Q15MIN PRN IV SEE COMMENTS; Start 11/17/19 at 09:00; Status UNV Dextrose (Iv Dextrose 5%) 250 ml PRN Q15MIN PRN IV SEE COMMENTS; Start 11/17/19 at 09:00 Metoprolol Succinate (Toprol Xl) 50 mg HS PO Last administered on 11/20/19at 21:26; Start 11/18/19 at 21:00 Insulin Human Lispro (HumaLOG) 30 units TIDAC SQ Last administered on 11/22/19at 09:22; Start 11/18/19 at 09:30 Dexamethasone (Decadron) 4 mg BID PO Last administered on 11/22/19at 09:13; Start 11/20/19 at 09:00 Phenyleph/Shark Oil/Min Oil/Petrol (Preparation H) 1 raza PRN QID PRN RC RECTAL PAIN Last administered on 11/21/19at 11:01; Start 11/21/19 at 10:15 Apixaban (Eliquis) 2.5 mg BID PO ; Start 11/23/19 at 09:00 Active Scripts Active Sprycel (Dasatinib) 100 Mg Tablet 100 Mg PO BID 30 Days Tramadol Hcl 50 Mg Tablet 50 Mg PO PRN Q8HRS PRN Novolog Flexpen (Insulin Aspart) 100 Unit/1 Ml Insuln.pen 30 Unit SQ TID 30 Days Lantus Solostar (Insulin Glargine,Hum.rec.anlog) 100 Unit/1 Ml Insuln.pen 40 Unit SQ BID Decadron (Dexamethasone) 4 Mg Tablet 1 Tab PO BID 3 Days Culturelle (Lactobacillus Rhamnosus Gg) 1 Each Cap.sprink 1 Cap PO BID 30 Days Reported Roxicodone (Oxycodone HCl) 5 Mg Tablet 1 Tab PO PRN Q6HRS PRN Ferrous Sulfate 325 Mg Tablet 1 Tab PO DAILY Keppra (Levetiracetam) 500 Mg Tablet 1 Tab PO BID 30 Days Cymbalta (Duloxetine Hcl) 60 Mg Capsule.dr 1 Cap PO BID Lyrica (Pregabalin) 150 Mg Capsule 1 Cap PO BID Crestor (Rosuvastatin Calcium) 40 Mg Tablet 0.5 Tab PO DAILY Polyethylene Glycol 3350 2,500 Gm Powder 17 Gm PO PRN PRN Xanax (Alprazolam) 1 Mg Tablet 1 Tab PO TID Restasis (Cyclosporine) 1 Each Droperette 1 Drop EACHEYE BID Proair Hfa Inhaler (Albuterol Sulfate) 8.5 Gm Hfa.aer.ad 1 Puff INH PRN Q6HRS PRN Ondansetron Hcl 4 Mg Tablet 2 Tab PO PRN Q8HRS PRN Nystatin 15 Gm Powder 1 [place] TP BID Fluticasone Propionate Nasal [place] (Fluticasone Propionate) 16 Gm [place].susp 2 [place] NS DAILY Senna-Docusate Sodium Tablet (Sennosides/Docusate Sodium) 1 Each Tablet 1 Each PO BID LAST DOSE THIS AM NEXT DOSE TONIGHT Protonix (Pantoprazole Sodium) 40 Mg Tablet.dr 40 Mg PO DAILY LST DOSE THIS AM NEXT DOSE TOMORROW AM Carafate (Sucralfate) 1 Gm Tablet 1 Tab PO TID Meds not given this hospital admission. May resume home medications as approved by Physician. MAY TAKE WHEN AVAILABLE Metoprolol Succinate ( Xl ) (Metoprolol Succinate) 100 Mg Tab.er.24h 50 Mg PO HS Vitals/I & O Vital Sign - Last 24 Hours 11/21/19 11/21/19 11/21/19 1/1/20 12:02 12:51 13:26 15:00 Temp 98.2 98.2 Pulse 95 Resp 16 16 16 18 B/P (MAP) 107/94 (98) Pulse Ox 94 O2 Delivery Room Air Room Air Room Air Room Air 11/21/19 11/21/19 11/21/19 11/21/19 17:03 17:34 17:35 18:33 Resp 16 16 16 16 O2 Delivery Room Air Room Air Room Air Room Air 11/21/19 11/21/19 11/21/19 11/21/19 19:00 20:00 21:00 21:23 Temp 98.8 98.8 Pulse 100 100 Resp 18 B/P (MAP) 82/50 (61) 82/50 Pulse Ox 95 O2 Delivery Room Air Room Air Room Air 11/21/19 11/21/19 11/22/19 11/22/19 22:07 23:00 01:42 02:13 Temp 99.2 99.2 Pulse 100 Resp 18 B/P (MAP) 122/61 (81) Pulse Ox 99 O2 Delivery Room Air Room Air Room Air Nasal Cannula O2 Flow Rate 2.0 11/22/19 11/22/19 11/22/19 11/22/19 03:00 03:25 04:27 05:40 Temp 98.5 98.5 Pulse 87 Resp 18 B/P (MAP) 112/60 (77) Pulse Ox 97 O2 Delivery Room Air Nasal Cannula Nasal Cannula Nasal Cannula O2 Flow Rate 2.0 2.0 2.0 11/22/19 11/22/19 11/22/19 11/22/19 06:14 07:00 08:00 09:15 Temp 98.2 98.2 Pulse 54 Resp 16 16 B/P (MAP) 92/61 (71) Pulse Ox 92 O2 Delivery Nasal Cannula Room Air Room Air Room Air O2 Flow Rate 2.0 11/22/19 11/22/19 11/22/19 10:03 10:14 10:48 Resp 16 16 16 O2 Delivery Room Air Room Air Room Air Intake and Output 11/21/19 11/21/19 11/22/19 14:59 22:59 06:59 Intake Total 100 ml Balance 100 ml Nutrition Consultation Dietary Evaluation: Recommendations by RD: Dietary education by RD, Increase Calorie Intake, Protein supplementation Comments: REC ADA/cardiac diet ,glucerna tid Expected Outcomes/Goals: PO intake to meet >75% est needs- met at times, goal ongoing Interpretation of weight loss: >5% in 1 month Malnutrition Findings: Food and Nutrition Intake (Sev: <50% est energy req 5days Weight Status: Morbidly Obese BINH WELCH MD Nov 22, 2019 11:42
--- NOTE | 2019-11-22 14:09 | PDOC ---
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 Vasogenic edema with 4 mm left to right midline shift Headaches. Right side hemiplegia, UE > LE. Cognitive impairment. Staring spells. CML. HTN. HLD. DM. KRISS. ADHD. PE Hx. Leukocytosis. Obesity. RECOMMENDATIONS/PLAN: Decadron duration per NS. Continue Lipitor HS. Treat medical diseases. FU with Neurosurgery and Oncology. FU pathology reports. Weight reduction. OT/PT. Rehab. EEG on 11/06/19: normal. Past Medical History Cardiovascular: HTN, Hyperlipidemia, Other (tachycardia) Pulmonary: Asthma, Pulmonary embolus ( DVT, on [place]), Other (sleep apnea) CENTRAL NERVOUS SYSTEM: Periperal neuropathy, Other (right L5 radiculopathy) GI: Peptic Ulcer disease, Other (pancreatitis, hiatal hernia) Psych: Anxiety, Depression, Other (ADHD) Musculoskeletal: low back pain Renal/: Other (nephrolithiasis) Endocrine: Diabetes Past Surgical History Appendectomy, Cholecystectomy, , Hysterectomy (fbrioids), Other (lumbar laminectomy) Family History Cancer, CAD Social History ex smoker, no alcohol, disabled Allergies Coded Allergies: azithromycin (Verified Allergy, Intermediate, 10/12/19) codeine (Verified Allergy, Intermediate, 05/06/17) morphine (Verified Allergy, Intermediate, 05/06/17) ROS Negative for fever, chills, weight loss, shortness of breath, chest pain, indigestion, hematochezia, melena, and dysuria. Full 14-point review of systems is negative. MEDICATIONS: Refer to [facility] PHYSICAL EXAMINATION: General appearance in subacute distress. HEENT: Normocephalic and nontraumatic. Eyes, nose, ears, and throat are unremarkable. Hearing decrease. Neck is supple. No lymphadenopathy. No Crepitus. Cardiovascular: S1, S2, regular rate and rhythm. Pulmonary: Clear to auscultation bilaterally. Abdomen: Bowel sounds are positive. Abdomen is soft, nontender, and nondistended. Extremities: No rash, lesions, or edema. No restriction of range of motion NEUROLOGICAL EXAMINATION: Alert. Oriented to time, place and person. PERRL. EOMI. CN: no focal findings. Muscle tone: within normal. Muscle strength: 0 right UE, 2 right LE, 5- left side. DTR: 0-1 right side, 1+ left side. Plantar reflex: neutral response bilaterally Gait: Not able to walk a few steps. Sensory exam: Decreased to light touch in right LE below the knee. No cerebellar signs elicited. F-T-N test fine in left side. Unable to move right UE. Objective Objective Vital Signs Date Time Temp Pulse Resp B/P (MAP) Pulse Ox O2 Delivery O2 Flow Rate FiO2 11/22/19 11:00 97.8 99 16 101/56 (71) 100 Nasal Cannula 2.0 97.8 Intake and Output 11/22/19 07:00 Intake Total 100 ml Balance 100 ml Intake Oral 100 ml # Voids 2 # Bowel Movements 2 Vitals Signs Vitals VS - Last 72 Hours, by Label Date Time Temp Pulse Resp B/P (MAP) Pulse Ox O2 Delivery O2 Flow Rate FiO2 11/22/19 11:00 97.8 99 16 101/56 (71) 100 Nasal Cannula 2.0 97.8 11/22/19 10:48 16 Room Air 11/22/19 10:14 16 Room Air 11/22/19 10:03 16 Room Air 11/22/19 09:15 16 Room Air 11/22/19 08:00 Room Air 11/22/19 07:00 98.2 54 16 92/61 (71) 92 Room Air 98.2 11/22/19 06:14 Nasal Cannula 2.0 11/22/19 05:40 Nasal Cannula 2.0 11/22/19 04:27 Nasal Cannula 2.0 11/22/19 03:25 Nasal Cannula 2.0 11/22/19 03:00 98.5 87 18 112/60 (77) 97 Room Air 98.5 11/22/19 02:13 Nasal Cannula 2.0 11/22/19 01:42 Room Air 11/21/19 23:00 99.2 100 18 122/61 (81) 99 Room Air 99.2 11/21/19 22:07 Room Air 11/21/19 21:23 Room Air 11/21/19 21:00 100 82/50 11/21/19 20:00 Room Air 11/21/19 19:00 98.8 100 18 82/50 (61) 95 Room Air 98.8 11/21/19 18:33 16 Room Air 11/21/19 17:35 16 Room Air 11/21/19 17:34 16 Room Air 11/21/19 17:03 16 Room Air 11/21/19 15:00 98.2 95 18 107/94 (98) 94 Room Air 98.2 11/21/19 13:26 16 Room Air 11/21/19 12:51 16 Room Air 11/21/19 12:02 16 Room Air 11/21/19 11:01 16 Room Air 11/21/19 11:00 98.5 89 20 102/53 (69) 97 Room Air 98.5 11/21/19 09:54 16 Room Air 11/21/19 08:42 16 Room Air 11/21/19 08:00 Room Air 11/21/19 07:00 98.2 83 20 98/53 (68) 96 Room Air 98.2 Laboratory Laboratory Laboratory Tests Test 11/21/19 16:23 11/21/19 21:01 11/22/19 07:36 11/22/19 11:06 Glucose (Fingerstick) 225 mg/dL (70-99) 196 mg/dL (70-99) 145 mg/dL (70-99) 173 mg/dL (70-99) Microbiology 11/10/19 Urine Culture - Final, Complete 11/10/19 Urine Culture Result 1 (СВЕТЛАНА) - Final, Complete 11/10/19 Antimicrobic Susceptibility - Final, Complete 11/01/19 Blood Culture - Final, Complete NO GROWTH AFTER 5 DAYS Medication Medications Current Medications Apixaban (Eliquis) 2.5 mg BID PO ; Start 11/23/19 at 09:00 Comment Review of Relevant I have reviewed the following items mustapha (where applicable) has been applied. JOHNATHON OGLESBY MD Nov 22, 2019 14:09
[2019-11-22 15:00] VITALS: BP 102/56
--- NOTE | 2019-11-22 16:26 | NUR ---
Pt was accepted at both [facility] and [facility]. Pt [facility] and had met with Maynor from [facility]. [facility] for [facility]hab pending.
[2019-11-22 19:15] VITALS: BP 109/58
[2019-11-22] MEDS: LIDOCAINE (700MG/PATCH) PATCH. TP SCH (21:00)
[2019-11-22] MEDS: ATORVASTATIN CALCIUM 40 MG TABLET. PO SCH (22:07)
[2019-11-22] MEDS: METOPROLOL SUCC 24HR ER 50 MG TAB.ER.24H. PO SCH (22:07)
[2019-11-22 23:09] VITALS: BP 93/52
[2019-11-23] MEDS: oxyCODONE IR 5 MG TABLET PO PRN ×2 (00:10→11:49)
[2019-11-23] MEDS: HYDROmorphone 2 MG/ML VIAL IV PRN ×5 (00:47→17:52)
[2019-11-23 03:39] VITALS: BP 106/55
[2019-11-23 05:21] LABS: BASO % 0 % (0-3); EOS % 0 % (0-3); HEMATOCRIT 27.4 % (36.0-47.0); LYMPH # 0.3 x10^3/uL (1.0-4.8); LYMPH % 4 % (24-48); MEAN CORPUSCULAR HEMOGLOBIN 31 pg (25-35); MEAN CORPUSCULAR HGB CONC 33 g/dL (31-37); MEAN CORPUSCULAR VOLUME 93 fL (79-100); MONO # 0.1 x10^3/uL (0.0-1.1); MONO % 2 % (0-9); NEUT # 7.3 x10^3/uL (1.8-7.7); NEUT % 94 % (31-73); PLATELET COUNT 262 x10^3/uL (140-400); RED BLOOD COUNT 2.94 x10^6/uL (3.50-5.40); RED CELL DISTRIBUTION WIDTH 19.5 % (11.5-14.5); WHITE BLOOD COUNT 7.8 x10^3/uL (4.0-11.0)
[2019-11-23 05:35] LABS: ALBUMIN 2.6 g/dL (3.4-5.0); CALCIUM 7.9 mg/dL (8.5-10.1); CREATININE 0.4 mg/dL (0.6-1.0); GFR 171.1; POTASSIUM 4.3 mmol/L (3.5-5.1); TOTAL BILIRUBIN 0.8 mg/dL (0.2-1.0); TOTAL PROTEIN 5.3 g/dL (6.4-8.2)
[2019-11-23 07:00] VITALS: BP 105/59
[2019-11-23] MEDS ORDERED: APIXABAN 2.5 MG TABLET. PO SCH (09:00)
[2019-11-23] MEDS: PATCH REMOVAL. MC SCH (09:00)
[2019-11-23] MEDS: SENNOSIDES/DOCUSATE 8.6/50MG TABLET. PO SCH (09:00)
--- NOTE | 2019-11-23 09:29 | PDOC ---
PROGRESS NOTES Subjective Subjective Denies acute changes. Some headache. No visual disturbance. Objective Objective Vital Signs Date Time Temp Pulse Resp B/P (MAP) Pulse Ox O2 Delivery O2 Flow Rate FiO2 11/23/19 07:00 98.6 77 18 105/59 (74) 100 Room Air 98.6 11/23/19 05:41 2.0 Intake and Output 11/23/19 07:00 Intake Total 720 ml Balance 720 ml Intake Oral 720 ml # Voids 5 # Bowel Movements 3 Physical Exam Physical Exam AAOx4, NAD, EOMI, strength and sensation stable compared to yesterday, incision c/d/i with edd Assessment Assessment Problems Medical Problems: (1) Abdominal hemorrhage Status: Acute (2) Generalized weakness Status: Acute (3) Lactic acidosis Status: Acute (4) Leukocytosis Status: Acute Plan Plan of Care -d/c to rehab as able -headache likely related to initiation of steroid taper, neurologically stable otherwise, continued resolution of preop visual disturbances -d/c edd end of next week -total duration of steroid taper to off - four weeks -f/u with NS/[facility] [phone] Comment Review of Relevant I have reviewed the following items mustapha (where applicable) has been applied. Labs Laboratory Tests Test 11/21/19 11:44 11/21/19 16:23 11/21/19 21:01 11/22/19 07:36 Glucose (Fingerstick) 132 mg/dL (70-99) 225 mg/dL (70-99) 196 mg/dL (70-99) 145 mg/dL (70-99) Test 11/22/19 11:06 11/22/19 16:47 11/22/19 21:06 11/23/19 05:00 Glucose (Fingerstick) 173 mg/dL (70-99) 84 mg/dL (70-99) 277 mg/dL (70-99) White Blood Count 7.8 x10^3/uL (4.0-11.0) Red Blood Count 2.94 x10^6/uL (3.50-5.40) Hemoglobin 9.0 g/dL (12.0-15.5) Hematocrit 27.4 % (36.0-47.0) Mean Corpuscular Volume 93 fL (79-100) Mean Corpuscular Hemoglobin 31 pg (25-35) Mean Corpuscular Hemoglobin Concent 33 g/dL (31-37) Red Cell Distribution Width 19.5 % (11.5-14.5) Platelet Count 262 x10^3/uL (140-400) Neutrophils (%) (Auto) 94 % (31-73) Lymphocytes (%) (Auto) 4 % (24-48) Monocytes (%) (Auto) 2 % (0-9) Eosinophils (%) (Auto) 0 % (0-3) Basophils (%) (Auto) 0 % (0-3) Neutrophils # (Auto) 7.3 x10^3/uL (1.8-7.7) Lymphocytes # (Auto) 0.3 x10^3/uL (1.0-4.8) Monocytes # (Auto) 0.1 x10^3/uL (0.0-1.1) Eosinophils # (Auto) 0.0 x10^3/uL (0.0-0.7) Basophils # (Auto) 0.0 x10^3/uL (0.0-0.2) Sodium Level 136 mmol/L (136-145) Potassium Level 4.3 mmol/L (3.5-5.1) Chloride Level 101 mmol/L (98-107) Carbon Dioxide Level 27 mmol/L (21-32) Anion Gap 8 (6-14) Blood Urea Nitrogen 18 mg/dL (7-20) Creatinine 0.4 mg/dL (0.6-1.0) Estimated GFR (Cockcroft-Gault) 171.1 BUN/Creatinine Ratio 45 (6-20) Glucose Level 291 mg/dL (70-99) Calcium Level 7.9 mg/dL (8.5-10.1) Total Bilirubin 0.8 mg/dL (0.2-1.0) Aspartate Amino Transf (AST/SGOT) 43 U/L (15-37) Alanine Aminotransferase (ALT/SGPT) 106 U/L (14-59) Alkaline Phosphatase 67 U/L (46-116) Total Protein 5.3 g/dL (6.4-8.2) Albumin 2.6 g/dL (3.4-5.0) Albumin/Globulin Ratio 1.0 (1.0-1.7) Test 11/23/19 08:01 Glucose (Fingerstick) 217 mg/dL (70-99) Laboratory Tests Test 11/22/19 11:06 11/22/19 16:47 11/22/19 21:06 11/23/19 05:00 Glucose (Fingerstick) 173 mg/dL (70-99) 84 mg/dL (70-99) 277 mg/dL (70-99) White Blood Count 7.8 x10^3/uL (4.0-11.0) Red Blood Count 2.94 x10^6/uL (3.50-5.40) Hemoglobin 9.0 g/dL (12.0-15.5) Hematocrit 27.4 % (36.0-47.0) Mean Corpuscular Volume 93 fL (79-100) Mean Corpuscular Hemoglobin 31 pg (25-35) Mean Corpuscular Hemoglobin Concent 33 g/dL (31-37) Red Cell Distribution Width 19.5 % (11.5-14.5) Platelet Count 262 x10^3/uL (140-400) Neutrophils (%) (Auto) 94 % (31-73) Lymphocytes (%) (Auto) 4 % (24-48) Monocytes (%) (Auto) 2 % (0-9) Eosinophils (%) (Auto) 0 % (0-3) Basophils (%) (Auto) 0 % (0-3) Neutrophils # (Auto) 7.3 x10^3/uL (1.8-7.7) Lymphocytes # (Auto) 0.3 x10^3/uL (1.0-4.8) Monocytes # (Auto) 0.1 x10^3/uL (0.0-1.1) Eosinophils # (Auto) 0.0 x10^3/uL (0.0-0.7) Basophils # (Auto) 0.0 x10^3/uL (0.0-0.2) Sodium Level 136 mmol/L (136-145) Potassium Level 4.3 mmol/L (3.5-5.1) Chloride Level 101 mmol/L (98-107) Carbon Dioxide Level 27 mmol/L (21-32) Anion Gap 8 (6-14) Blood Urea Nitrogen 18 mg/dL (7-20) Creatinine 0.4 mg/dL (0.6-1.0) Estimated GFR (Cockcroft-Gault) 171.1 BUN/Creatinine Ratio 45 (6-20) Glucose Level 291 mg/dL (70-99) Calcium Level 7.9 mg/dL (8.5-10.1) Total Bilirubin 0.8 mg/dL (0.2-1.0) Aspartate Amino Transf (AST/SGOT) 43 U/L (15-37) Alanine Aminotransferase (ALT/SGPT) 106 U/L (14-59) Alkaline Phosphatase 67 U/L (46-116) Total Protein 5.3 g/dL (6.4-8.2) Albumin 2.6 g/dL (3.4-5.0) Albumin/Globulin Ratio 1.0 (1.0-1.7) Test 11/23/19 08:01 Glucose (Fingerstick) 217 mg/dL (70-99) Microbiology 11/10/19 Urine Culture - Final, Complete 11/10/19 Urine Culture Result 1 (СВЕТЛАНА) - Final, Complete 11/10/19 Antimicrobic Susceptibility - Final, Complete 11/01/19 Blood Culture - Final, Complete NO GROWTH AFTER 5 DAYS Medications Current Medications Sodium Chloride 500 ml @ 500 mls/hr 1X ONCE IV Last administered on 11/01/19at 13:00; Start 11/01/19 at 13:00; Stop 11/01/19 at 13:59; Status DC Ondansetron HCl (Zofran) 4 mg 1X ONCE IV Last administered on 11/01/19at 13:26; Start 11/01/19 at 13:00; Stop 11/01/19 at 13:13; Status DC Hydromorphone HCl (Dilaudid) 0.5 mg 1X STAT IVP Last administered on 11/01/19at 13:26; Start 11/01/19 at 12:59; Stop 11/01/19 at 13:13; Status DC Iohexol (Omnipaque 300 Mg/ml) 75 ml 1X ONCE IV Last administered on 11/01/19at 14:08; Start 11/01/19 at 13:45; Stop 11/01/19 at 13:46; Status DC Info (CONTRAST GIVEN -- Rx MONITORING) 1 each PRN DAILY PRN MC SEE COMMENTS; Start 11/01/19 at 14:00; Stop 11/03/19 at 13:59; Status DC Hydromorphone HCl (Dilaudid) 0.5 mg 1X STAT IVP Last administered on 11/01/19at 16:53; Start 11/01/19 at 16:21; Stop 11/01/19 at 16:23; Status DC Sodium Chloride 1,000 ml @ 1,000 mls/hr 1X ONCE IV Last administered on 11/01/19at 16:30; Start 11/01/19 at 16:30; Stop 11/01/19 at 17:29; Status DC Sodium Chloride 500 ml @ 500 mls/hr 1X ONCE IV Last administered on 11/01/19at 16:30; Start 11/01/19 at 16:30; Stop 11/01/19 at 17:29; Status DC Albuterol Sulfate (Ventolin Neb Soln) 2.5 mg PRN Q6HRS PRN INH SHORTNESS OF BREATH; Start 11/01/19 at 16:30; Status Cancel Alprazolam (Xanax) 0.25 mg PRN TID PRN PO anxiety; Start 11/01/19 at 16:30; Stop 11/01/19 at 17:11; Status DC Amlodipine Besylate (Norvasc) 5 mg DAILY PO Last administered on 11/16/19at 08:47; Start 11/02/19 at 09:00; Stop 11/18/19 at 09:18; Status DC Cyclosporine (Restasis) 1 drop BID OU Last administered on 11/22/19at 22:06; Start 11/01/19 at 21:00 Fluticasone Propionate (Flonase) 2 spray DAILY NS Last administered on 11/22/19at 09:12; Start 11/02/19 at 09:00 Lactobacillus Rhamnosus (Culturelle) 1 cap BID PO Last administered on 11/09/19at 08:28; Start 11/01/19 at 21:00; Stop 11/09/19 at 16:57; Status DC Lidocaine (Lidoderm) 1 patch DAILY TP ; Start 11/02/19 at 09:00; Stop 11/01/19 at 20:34; Status DC Metoprolol Succinate (Toprol Xl) 100 mg HS PO Last administered on 11/17/19at 21:05; Start 11/01/19 at 21:00; Stop 11/18/19 at 09:18; Status DC Nystatin (Nystop) 1 raza BID TP Last administered on 11/22/19 09:12; Start 11/01/19 at 21:00 Pantoprazole Sodium (Protonix) 40 mg DAILYAC PO Last administered on 11/09/19 08:28; Start 11/02/19 at 07:30; Stop 11/09/19 at 16:54; Status DC Senna/Docusate Sodium (Senna Plus) 1 tab BID PO Last administered on 11/18/19at 09:37; Start 11/01/19 at 21:00 Sucralfate (Carafate) 1 gm TIDAC PO Last administered on 11/22/19 16:59; Start 11/01/19 at 17:30 Tramadol HCl (Ultram) 50 mg PRN Q8HRS PRN PO PAIN; Start 11/01/19 at 16:30; Stop 11/01/19 at 19:43; Status DC Insulin Glargine (Lantus Syringe) 30 unit QHS SQ Last administered on 11/06/19at 21:16; Start 11/01/19 at 21:00; Stop 11/07/19 at 15:56; Status DC Ondansetron HCl (Zofran Odt) 8 mg PRN Q8HRS PRN PO NAUSEA/VOMITING Last administered on 11/17/19at 12:12; Start 11/01/19 at 17:15 Polyethylene Glycol (miraLAX PACKET) 17 gm PRN DAILY PRN PO CONSTIPATION, 1ST CHOICE Last administered on 11/17/19 08:30; Start 11/01/19 at 17:11 Atorvastatin Calcium (Lipitor) 80 mg QHS PO Last administered on 11/22/19at 22:07; Start 11/01/19 at 21:00 Insulin Human Lispro (HumaLOG) 0-9 UNITS TIDAC SQ Last administered on 11/07/19at 12:20; Start 11/01/19 at 16:30; Stop 11/07/19 at 15:56; Status DC Dextrose (Dextrose 50%-Water Syringe) 12.5 gm PRN Q15MIN PRN IV SEE COMMENTS; Start 11/01/19 at 16:30; Stop 11/12/19 at 15:36; Status DC Ondansetron HCl (Zofran) 4 mg PRN Q8HRS PRN IV NAUSEA/VOMITING; Start 11/01/19 at 16:30; Stop 11/02/19 at 16:29; Status DC Alprazolam (Xanax) 0.25 mg PRN TID PRN PO anxiety Last administered on 11/22/19 22:06; Start 11/01/19 at 17:11 Miscellaneous (Lidoderm Patch Removal) 1 ea QHS MC ; Start 11/01/19 at 21:00; Stop 11/01/19 at 20:34; Status DC Ceftriaxone Sodium (Rocephin) 1 gm QHS IVP Last administered on 11/15/19at 21:26; Start 11/01/19 at 18:45; Stop 11/16/19 at 08:52; Status DC Tramadol HCl (Ultram) 50 mg PRN Q8HRS PRN PO MILD PAIN 1-3 Last administered on 11/15/19at 17:56; Start 11/01/19 at 19:45 Hydromorphone HCl (Dilaudid) 1 mg PRN Q4HRS PRN IV SEVERE PAIN Last administered on 11/23/19at 05:41; Start 11/01/19 at 20:15 Lidocaine (Lidoderm) 1 patch QHS TP Last administered on 11/18/19at 20:49; Start 11/01/19 at 21:00 Miscellaneous (Lidoderm Patch Removal) 1 ea DAILY MC Last administered on 11/22/19at 09:00; Start 11/02/19 at 09:00 Albumin Human 500 ml @ 125 mls/hr 1X ONCE IV ; Start 11/02/19 at 02:00; Stop 11/02/19 at 05:59; Status Cancel Acetaminophen (Tylenol) 650 mg 1X PRN PRN PO PRE-TRANSFUSION; Start 11/02/19 at 06:45; Stop 11/03/19 at 14:16; Status DC Diphenhydramine HCl (Benadryl Oral Elixir) 12.5 mg 1X PRN PRN PO PRE-TRA NSFUSION; Start 11/02/19 at 06:45; Stop 11/03/19 at 14:16; Status DC Diphenhydramine HCl (Benadryl) 25 mg PRN 1X PRN PO PRE-TRANSFUSION; Start 11/02/19 at 06:45; Stop 11/03/19 at 14:16; Status DC Lactulose (LACTULOSE 300ML for RECTAL) 200 gm Q6HRS OH Last administered on 11/02/19at 18:00; Start 11/02/19 at 18:00; Stop 11/04/19 at 14:44; Status DC Sodium Chloride 1,000 ml @ 100 mls/hr Q10H IV Last administered on 11/13/19at 15:30; Start 11/02/19 at 12:00; Stop 11/14/19 at 11:28; Status DC Lactulose (Lactulose) 20 gm PRN DAILY PRN PO CONSTIPATION, 2ND CHOICE; Start 11/04/19 at 14:45 Oxycodone HCl (Roxicodone) 5 mg PRN Q6HRS PRN PO MODERATE TO SEVERE PAIN Last administered on 11/23/19at 00:10; Start 11/04/19 at 14:45 Lidocaine HCl (Buffered Lidocaine 1%) 3 ml STK-MED ONCE .ROUTE ; Start 11/05/19 at 08:13; Stop 11/05/19 at 08:13; Status DC Lidocaine HCl (Buffered Lidocaine 1%) 3 ml STK-MED ONCE .ROUTE ; Start 11/05/19 at 08:14; Stop 11/05/19 at 08:14; Status DC Midazolam HCl (Versed) 2 mg STK-MED ONCE .ROUTE ; Start 11/05/19 at 08:40; Stop 11/05/19 at 08:40; Status DC Fentanyl Citrate (Fentanyl 2ml Vial) 100 mcg STK-MED ONCE .ROUTE ; Start 11/05/19 at 08:40; Stop 11/05/19 at 08:41; Status DC Lidocaine HCl (Buffered Lidocaine 1%) 3 ml 1X ONCE IJ Last administered on 11/05/19at 08:45; Start 11/05/19 at 08:45; Stop 11/05/19 at 08:50; Status DC Midazolam HCl (Versed) 2 mg 1X ONCE IV Last administered on 11/05/19at 08:45; Start 11/05/19 at 08:45; Stop 11/05/19 at 08:50; Status DC Fentanyl Citrate (Fentanyl 2ml Vial) 100 mcg 1X ONCE IV Last administered on 11/05/19at 08:45; Start 11/05/19 at 08:45; Stop 11/05/19 at 08:50; Status DC Dexamethasone Sodium Phosphate (Decadron) 4 mg Q6HRS IVP Last administered on 11/17/19at 06:03; Start 11/06/19 at 09:00; Stop 11/17/19 at 08:53; Status DC Insulin Glargine (Lantus Syringe) 40 unit QHS SQ Last administered on 11/15/19at 21:00; Start 11/07/19 at 21:00; Stop 11/16/19 at 08:53; Status DC Insulin Human Lispro (HumaLOG) 10 units TIDAC SQ Last administered on 11/14/19at 17:31; Start 11/07/19 at 16:30; Stop 11/15/19 at 08:16; Status DC Insulin Human Lispro (HumaLOG) 0-9 UNITS TIDWMEALS SQ Last administered on 11/11/19at 17:13; Start 11/07/19 at 17:00; Stop 11/12/19 at 15:37; Status DC Insulin Human Lispro (HumaLOG) 19 units 1X ONCE SQ Last administered on 11/09/19at 12:41; Start 11/09/19 at 12:15; Stop 11/09/19 at 12:16; Status DC Insulin Human Lispro (HumaLOG) 5 units 1X ONCE SQ Last administered on 11/09/19at 13:52; Start 11/09/19 at 13:30; Stop 11/09/19 at 13:31; Status DC Non-Formulary Medication 1 ea DAILY PO ; Start 11/09/19 at 16:30; Status Cancel Ondansetron HCl (Zofran) 4 mg PRN Q6HRS PRN IV NAUSEA/VOMITING; Start 11/12/19 at 07:00; Stop 11/12/19 at 19:56; Status DC Fentanyl Citrate (Fentanyl 2ml Vial) 25 mcg PRN Q5MIN PRN IV MILD PAIN 1-3; Start 11/12/19 at 07:00; Stop 11/12/19 at 19:56; Status DC Fentanyl Citrate (Fentanyl 2ml Vial) 50 mcg PRN Q5MIN PRN IV MODERATE TO SEVERE PAIN; Start 11/12/19 at 07:00; Stop 11/12/19 at 19:56; Status DC Morphine Sulfate (Morphine Sulfate) 1 mg PRN Q10MIN PRN IV SEVERE PAIN 7-10; Start 11/12/19 at 07:00; Stop 11/09/19 at 17:30; Status DC Ringer's Solution 1,000 ml @ 30 mls/hr Q24H IV Last administered on 11/12/19at 10:00; Start 11/12/19 at 07:00; Stop 11/12/19 at 18:59; Status DC Lidocaine HCl (Xylocaine-Mpf 1% 2ml Vial) 2 ml PRN 1X PRN ID PRIOR TO IV START; Start 11/12/19 at 07:00; Stop 11/12/19 at 19:56; Status DC Hydromorphone HCl (Dilaudid) 0.5 mg PRN Q10MIN PRN IV SEV PAIN, Second choice; Start 11/12/19 at 07:00; Stop 11/12/19 at 19:56; Status DC Prochlorperazine Edisylate (Compazine) 5 mg PACU PRN PRN IV NAUSEA, MRX1; Start 11/12/19 at 07:00; Stop 11/12/19 at 19:56; Status DC Pantoprazole Sodium (Protonix) 40 mg DAILYAC PO Last administered on 11/14/19at 08:19; Start 11/09/19 at 18:30; Stop 11/15/19 at 09:25; Status DC Levetiracetam (Keppra) 500 mg BID PO Last administered on 11/22/19at 22:06; Start 11/09/19 at 21:00 Non-Formulary Medication 1 ea DAILY PO Last administered on 11/22/19at 09:12; Start 11/12/19 at 09:00 Insulin Human Lispro (HumaLOG) 8 units 1X ONCE SQ Last administered on 11/10/19at 12:32; Start 11/10/19 at 12:15; Stop 11/10/19 at 12:16; Status DC Propofol 20 ml @ As Directed STK-MED ONCE IV ; Start 11/12/19 at 07:48; Stop 11/12/19 at 07:48; Status DC Dexamethasone Sodium Phosphate (Decadron) 20 mg STK-MED ONCE .ROUTE ; Start 11/12/19 at 07:48; Stop 11/12/19 at 07:48; Status DC Lidocaine HCl (Lidocaine Pf 2% Vial) 5 ml STK-MED ONCE .ROUTE ; Start 11/12/19 at 07:48; Stop 11/12/19 at 07:48; Status DC Ondansetron HCl (Zofran) 4 mg STK-MED ONCE .ROUTE ; Start 11/12/19 at 07:48; Stop 11/12/19 at 07:48; Status DC Phenylephrine HCl (Tony-Synephrine Inj) 10 mg STK-MED ONCE .ROUTE ; Start 11/12/19 at 07:48; Stop 11/12/19 at 07:48; Status DC Propofol 50 ml @ As Directed STK-MED ONCE IV ; Start 11/12/19 at 07:48; Stop 11/12/19 at 07:48; Status DC Rocuronium [place] (Zemuron) 50 mg STK-MED ONCE .ROUTE ; Start 11/12/19 at 07:48; Stop 11/12/19 at 07:48; Status DC Remifentanil HCl (Ultiva) 2 mg STK-MED ONCE IV ; Start 11/12/19 at 07:48; Stop 11/12/19 at 07:49; Status DC Sodium Chloride (SODIUM CHLORIDE 20ml) 20 ml STK-MED ONCE IJ ; Start 11/12/19 at 07:49; Stop 11/12/19 at 07:49; Status DC Multi-Ingred Cream/Lotion/Oil/ Oint (Artificial Tears Eye Ointment) 7 raza STK- MED ONCE .ROUTE ; Start 11/12/19 at 07:49; Stop 11/12/19 at 07:49; Status DC Bacitracin 25023 unit/Sodium Chloride 1,000 ml @ 1,000 mls/hr 1X ONCE IRR Last administered on 11/12/19at 11:26; Start 11/12/19 at 07:57; Stop 11/12/19 at 08:56; Status DC Sodium Chloride (SODIUM CHLORIDE 20ml) 20 ml STK-MED ONCE IJ ; Start 11/12/19 at 07:57; Stop 11/12/19 at 07:57; Status DC Gelatin (Gelfoam Size 100) 1 each STK-MED ONCE .ROUTE Last administered on 11/12/19at 11:26; Start 11/12/19 at 07:59; Stop 11/12/19 at 07:59; Status DC Cellulose (Surgicel Hemostat 4x8) 1 each STK-MED ONCE .ROUTE Last administered on 11/12/19at 12:01; Start 11/12/19 at 07:59; Stop 11/12/19 at 08:00; Status DC Lidocaine/ Epinephrine (LIDOCAINE 1%-EPI 1:100,000 Multi-Dose) 20 ml STK-MED ONCE .ROUTE Last administered on 11/12/19at 11:26; Start 11/12/19 at 07:59; Stop 11/12/19 at 08:00; Status DC Thrombin 20,000 unit STK-MED ONCE TP Last administered on 11/12/19at 11:26; Start 11/12/19 at 08:00; Stop 11/12/19 at 08:00; Status DC Bacitracin (Bacitracin Zinc Oint Pkt) 1 pkt STK-MED ONCE TP ; Start 11/12/19 at 08:00; Stop 11/12/19 at 08:00; Status DC Propofol 100 ml @ As Directed STK-MED ONCE IV ; Start 11/12/19 at 08:02; Stop 11/12/19 at 08:02; Status DC Insulin Human Lispro (HumaLOG) 11 units 1X ONCE SQ Last administered on 11/12/19at 08:15; Start 11/12/19 at 08:15; Stop 11/12/19 at 08:16; Status DC Gadoterate Meglumine (Dotarem) 24.8 ml 1X ONCE IVP Last administered on 11/12/19at 08:15; Start 11/12/19 at 08:15; Stop 11/12/19 at 08:16; Status DC Insulin Human Regular 100 unit/ Sodium Chloride 101 ml @ 12.484 mls/ hr ONCE ONCE IV ; Start 11/12/19 at 08:15; Stop 11/12/19 at 16:20; Status DC Desflurane (Suprane) 90 ml STK-MED ONCE IH ; Start 11/12/19 at 08:11; Stop 11/12/19 at 08:11; Status DC Fentanyl Citrate (Fentanyl 2ml Vial) 100 mcg STK-MED ONCE .ROUTE ; Start 11/12/19 at 08:20; Stop 11/12/19 at 08:20; Status DC Midazolam HCl (Versed) 2 mg STK-MED ONCE .ROUTE ; Start 11/12/19 at 08:20; Stop 11/12/19 at 08:20; Status DC Rocuronium [place] (Zemuron) 50 mg STK-MED ONCE .ROUTE ; Start 11/12/19 at 09:11; Stop 11/12/19 at 09:12; Status DC Mannitol (Mannitol) 12.5 g STK-MED ONCE .ROUTE ; Start 11/12/19 at 09:22; Stop 11/12/19 at 09:23; Status DC Propofol 100 ml @ As Directed STK-MED ONCE IV ; Start 11/12/19 at 09:22; Stop 11/12/19 at 09:23; Status DC Lidocaine HCl (Xylocaine-Mpf 1% 2ml Vial) 2 ml STK-MED ONCE .ROUTE ; Start 11/12/19 at 09:24; Stop 11/12/19 at 09:24; Status DC Cefazolin Sodium 3 gm/Dextrose 100 ml @ 200 mls/hr 1X PREOP ONCE IV Last administered on 11/12/19at 10:53; Start 11/12/19 at 10:30; Stop 11/12/19 at 10:59; Status DC Gelatin (Gelfoam Size 12-7mm) 1 each STK-MED ONCE .ROUTE Last administered on 11/12/19at 12:03; Start 11/12/19 at 11:59; Stop 11/12/19 at 12:01; Status DC Thrombin 20,000 unit STK-MED ONCE TP Last administered on 11/12/19at 12:04; Start 11/12/19 at 12:00; Stop 11/12/19 at 12:01; Status DC Gelatin (Gelfoam Size 100) 1 each STK-MED ONCE .ROUTE Last administered on 11/12/19at 12:25; Start 11/12/19 at 12:26; Stop 11/12/19 at 12:26; Status DC Gelatin (Gelfoam Size 12-7mm) 1 each STK-MED ONCE .ROUTE Last administered on 11/12/19at 13:35; Start 11/12/19 at 13:32; Stop 11/12/19 at 13:33; Status DC Thrombin 20,000 unit STK-MED ONCE TP Last administered on 11/12/19at 13:35; Start 11/12/19 at 13:32; Stop 11/12/19 at 13:33; Status DC Gelatin (Gelfoam Size 12-7mm) 1 each STK-MED ONCE .ROUTE Last administered on 11/12/19at 13:55; Start 11/12/19 at 13:55; Stop 11/12/19 at 13:55; Status DC Gelatin (Gelfoam Size 12-7mm) 1 each STK-MED ONCE .ROUTE Last administered on 11/12/19at 13:59; Start 11/12/19 at 13:59; Stop 11/12/19 at 13:59; Status DC Labetalol HCl (Normodyne Iv Push) 5 mg PRN Q15MIN PRN IVP HYPERTENSION; Start 11/12/19 at 15:15 Nicardipine HCl 50 mg/Sodium Chloride 250 ml @ 25 mls/hr TITRATE PRN IV SBP 90-140; Start 11/12/19 at 15:15; Stop 11/15/19 at 08:16; Status DC Hydralazine HCl (Apresoline Inj) 5 mg PRN Q6HRS PRN IVP TO KEEP SBP<140mmHg; Start 11/12/19 at 15:15 Al Hydroxide/Mg Hydroxide (Mylanta Plus Xs) 30 ml PRN Q3HRS PRN PO HEARTBURN / GAS; Start 11/12/19 at 15:15 Calcium Carbonate/ Glycine (Tums) 500 mg PRN Q3HRS PRN PO INDIGESTION Last administered on 11/20/19at 16:15; Start 11/12/19 at 15:15 Diphenhydramine HCl (Benadryl) 25 mg PRN Q6HRS PRN PO ITCHING; Start 11/12/19 at 15:15 Diphenhydramine HCl (Benadryl) 25 mg PRN Q6HRS PRN IV ITCHING; Start 11/12/19 at 15:15 Sodium Chloride (Normal Saline Flush) 3 ml QSHIFT PRN IV AFTER MEDS AND BLOOD DRAWS; Start 11/12/19 at 15:15 Insulin Human Lispro (HumaLOG) 0-5 UNITS TIDWMEALS SQ Last administered on at 08:39; Start 11/12/19 at 17:00; Stop 11/17/19 at 08:54; Status DC Dextrose (Dextrose 50%-Water Syringe) 12.5 gm PRN Q15MIN PRN IV SEE COMMENTS; Start 11/12/19 at 15:15 Dextrose (Iv Dextrose 5%) 250 ml PRN Q15MIN PRN IV SEE COMMENTS; Start 01/13/19 at 15:15; Stop 11/18/19 at 08:17; Status DC Hydromorphone HCl (Dilaudid) 0.2 mg PRN Q1HR PRN IV MODERATE PAIN Last ad ministered on 11/19/19at 03:58; Start 11/12/19 at 15:15 Insulin Human Lispro (HumaLOG VIAL for OP,RR ONLY) 0-10 units PRN Q1HR PRN SQ PER PROTOCOL Last administered on 11/12/19at 15:50; Start 11/12/19 at 16:00; Stop 11/12/19 at 19:54; Status DC Insulin Human Lispro (HumaLOG VIAL for OP,RR ONLY) 4 unit 1X ONCE SQ ; Start 11/12/19 at 16:45; Stop 11/12/19 at 16:46; Status DC Ferrous Sulfate (Iron Oral Solution) 300 mg QD PO Last administered on 11/22/19at 09:12; Start 11/13/19 at 10:00 Gadoterate Meglumine (Dotarem) 10 ml 1X ONCE IVP Last administered on 11/13/19at 15:00; Start 11/13/19 at 14:45; Stop 11/13/19 at 14:48; Status DC Gadoterate Meglumine (Dotarem) 15 ml 1X ONCE IVP Last administered on 11/13/19at 15:00; Start 11/13/19 at 14:45; Stop 11/13/19 at 14:48; Status DC Insulin Human Lispro (HumaLOG) 15 units TIDAC SQ Last administered on 11/15/19at 17:08; Start 11/15/19 at 08:15; Stop 11/16/19 at 08:53; Status DC Insulin Glargine (Lantus Syringe) 20 unit DAILY SQ Last administered on 11/15/19at 09:20; Start 11/15/19 at 09:00; Stop 11/16/19 at 08:53; Status DC Enoxaparin Sodium (Lovenox 40mg Syringe) 40 mg Q12H SQ Last administered on 11/15/19at 23:36; Start 11/15/19 at 10:00; Stop 11/16/19 at 07:50; Status DC Enoxaparin Sodium (Lovenox 40mg Syringe) 40 mg DAILY SQ Last administered on 11/22/19at 09:12; Start 11/16/19 at 09:00; Stop 11/22/19 at 10:06; Status DC Meropenem 1 gm/ Sodium Chloride 100 ml @ 200 mls/hr Q8HRS IV ; Start 11/16/19 at 14:00; Stop 11/16/19 at 12:31; Status DC Insulin Glargine (Lantus Syringe) 40 unit BID SQ Last administered on 11/22/19at 22:19; Start 11/16/19 at 09:00 Insulin Human Lispro (HumaLOG) 20 units TIDAC SQ Last administered on 11/18/19at 08:35; Start 11/16/19 at 11:30; Stop 11/18/19 at 09:19; Status DC Insulin Glargine (Lantus Syringe) 20 unit 1X ONCE SQ Last administered on 11/16/19at 09:48; Start 11/16/19 at 09:15; Stop 11/16/19 at 09:16; Status DC Fosfomycin Tromethamine (Monurol) 3 gm 1X ONCE PO Last administered on 11/16/19at 12:49; Start 11/16/19 at 12:30; Stop 11/16/19 at 12:33; Status DC Fosfomycin Tromethamine (Monurol) 3 gm 1X ONCE PO Last administered on 11/18/19at 09:57; Start 11/18/19 at 09:00; Stop 11/18/19 at 09:01; Status DC Dexamethasone (Decadron) 4 mg QID PO Last administered on 11/19/19at 20:55; Start 11/17/19 at 13:00; Stop 11/20/19 at 08:47; Status DC Insulin Human Lispro (HumaLOG) 0-9 UNITS TIDWMEALS SQ Last administered on 11/21/19at 17:07; Start 11/17/19 at 12:00 Dextrose (Dextrose 50%-Water Syringe) 12.5 gm PRN Q15MIN PRN IV SEE COMMENTS; Start 11/17/19 at 09:00; Status UNV Dextrose (Iv Dextrose 5%) 250 ml PRN Q15MIN PRN IV SEE COMMENTS; Start 11/17/19 at 09:00 Metoprolol Succinate (Toprol Xl) 50 mg HS PO Last administered on 11/22/19at 22:07; Start 11/18/19 at 21:00 Insulin Human Lispro (HumaLOG) 30 units TIDAC SQ Last administered on 11/22/19at 11:39; Start 11/18/19 at 09:30 Dexamethasone (Decadron) 4 mg BID PO Last administered on 11/22/19at 22:07; Start 11/20/19 at 09:00 Phenyleph/Shark Oil/Min Oil/Petrol (Preparation H) 1 raza PRN QID PRN RC RECTAL PAIN Last administered on 11/21/19at 11:01; Start 11/21/19 at 10:15 Apixaban (Eliquis) 2.5 mg BID PO ; Start 11/23/19 at 09:00 Active Scripts Active Sprycel (Dasatinib) 100 Mg Tablet 100 Mg PO BID 30 Days Tramadol Hcl 50 Mg Tablet 50 Mg PO PRN Q8HRS PRN Novolog Flexpen (Insulin Aspart) 100 Unit/1 Ml Insuln.pen 30 Unit SQ TID 30 Days Lantus Solostar (Insulin Glargine,Hum.rec.anlog) 100 Unit/1 Ml Insuln.pen 40 Unit SQ BID Decadron (Dexamethasone) 4 Mg Tablet 1 Tab PO BID 3 Days Culturelle (Lactobacillus Rhamnosus Gg) 1 Each Cap.sprink 1 Cap PO BID 30 Days Reported Roxicodone (Oxycodone HCl) 5 Mg Tablet 1 Tab PO PRN Q6HRS PRN Ferrous Sulfate 325 Mg Tablet 1 Tab PO DAILY Keppra (Levetiracetam) 500 Mg Tablet 1 Tab PO BID 30 Days Cymbalta (Duloxetine Hcl) 60 Mg Capsule.dr 1 Cap PO BID Lyrica (Pregabalin) 150 Mg Capsule 1 Cap PO BID Crestor (Rosuvastatin Calcium) 40 Mg Tablet 0.5 Tab PO DAILY Polyethylene Glycol 3350 2,500 Gm Powder 17 Gm PO PRN PRN Xanax (Alprazolam) 1 Mg Tablet 1 Tab PO TID Restasis (Cyclosporine) 1 Each Droperette 1 Drop EACHEYE BID Proair Hfa Inhaler (Albuterol Sulfate) 8.5 Gm Hfa.aer.ad 1 Puff INH PRN Q6HRS PRN Ondansetron Hcl 4 Mg Tablet 2 Tab PO PRN Q8HRS PRN Nystatin 15 Gm Powder 1 [place] TP BID Fluticasone Propionate Nasal [place] (Fluticasone Propionate) 16 Gm [place].susp 2 [place] NS DAILY Senna-Docusate Sodium Tablet (Sennosides/Docusate Sodium) 1 Each Tablet 1 Each PO BID LAST DOSE THIS AM NEXT DOSE TONIGHT Protonix (Pantoprazole Sodium) 40 Mg Tablet.dr 40 Mg PO DAILY LST DOSE THIS AM NEXT DOSE TOMORROW AM Carafate (Sucralfate) 1 Gm Tablet 1 Tab PO TID Meds not given this hospital admission. May resume home medications as approved by Physician. MAY TAKE WHEN AVAILABLE Metoprolol Succinate ( Xl ) (Metoprolol Succinate) 100 Mg Tab.er.24h 50 Mg PO HS Vitals/I & O Vital Sign - Last 24 Hours 11/22/19 11/22/19 11/22/19 11/22/19 10:03 10:14 10:48 11:00 Temp 97.8 97.8 Pulse 99 Resp 16 16 16 16 B/P (MAP) 101/56 (71) Pulse Ox 100 O2 Delivery Room Air Room Air Room Air Nasal Cannula O2 Flow Rate 2.0 11/22/19 11/22/19 11/22/19 11/22/19 14:12 14:38 15:00 15:28 Temp 98.2 98.2 Pulse 106 Resp 16 18 16 B/P (MAP) 102/56 (71) Pulse Ox 100 91 O2 Delivery Room Air Room Air Room Air Room Air 11/22/19 11/22/19 11/22/19 11/22/19 16:52 18:06 19:15 19:50 Temp 99.3 99.3 Pulse 106 Resp 16 16 18 B/P (MAP) 109/58 (75) Pulse Ox 94 O2 Delivery Room Air Room Air Room Air Room Air 11/22/19 11/22/19 11/22/19 11/22/19 22:07 22:15 22:45 23:09 Temp 99.1 99.1 Pulse 106 105 Resp 20 20 20 B/P (MAP) 109/58 93/52 (66) Pulse Ox 98 O2 Delivery Nasal Cannula Nasal Cannula Room Air O2 Flow Rate 2.0 11/23/19 11/23/19 11/23/19 11/23/19 00:10 00:47 01:17 01:17 Resp O2 Delivery Nasal Cannula Nasal Cannula Nasal Cannula Nasal Cannula O2 Flow Rate 2.0 2.0 11/23/19 11/23/19 11/23/19 03:39 05:41 07:00 Temp 99.0 98.6 99.0 98.6 Pulse 94 77 Resp 18 B/P (MAP) 106/55 (72) 105/59 (74) Pulse Ox 94 100 O2 Delivery Room Air Nasal Cannula Room Air O2 Flow Rate 2.0 Intake and Output 11/22/19 11/22/19 11/23/19 15:00 23:00 07:00 Intake Total 240 ml 480 ml Balance 240 ml 480 ml Nutrition Consultation Dietary Evaluation: Recommendations by RD: Dietary education by RD, Increase Calorie Intake, Protein supplementation Comments: REC continue ADA/cardiac diet ,glucerna tid Expected Outcomes/Goals: PO intake to meet >75% est needs- met at times, goal ongoing Interpretation of weight loss: >5% in 1 month Malnutrition Findings: Food and Nutrition Intake (Sev: <50% est energy req 5days Weight Status: Morbidly Obese BINH WELCH MD Nov 23, 2019 09:29
--- NOTE | 2019-11-23 09:42 | PDOC ---
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 The mass abuts the superior sagittal sinus without definite involvement onthis examination. Associated vasogenic edema with minimal mass effect and midline shift to the right by approximately 8 mm, stable. There is persistent mass effect on the atria of the left lateral ventricle without hydrocephalus. head ct 11/12 post op:Left lateral vertex level hematoma which may represent subdural or epidural hematoma in this postoperative patient. Left vertex intraparenchymal hematomas also are seen. Parafalcine hemorrhage which extends along the left tentorium also noted. Postoperative findings are present with the left vertex level mass no longer being delineated. Left maxillary sinusitis. brain MRI 11/13 MPRESSION: Post left parietal craniotomy with resection of the extra-axial mass from the left parietal region. Residual enhancing mass is seen superiorly and medially within the left region which measures 2.8 cm in size. Intraparenchymal and extra-axial hemorrhage is seen within the left parietal region as discussed above. Edema is seen involving the left parietal lobe. The hemorrhage and edema does not appear significantly changed since the patient's CT scan from yesterday. 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, meningeal involvement is extremely rare especially in chronic phase, can be seen in blast crisis, does not have blast crisis based on bone marrow or on meingioma resection per path Leukocytosis: nl, now that she is on on dasatinib, cont q day Abdominal Hematoma: Improved w/ stopping anticoagulation, now on apixaban ppx Anemia: transfuse prn Hb <7, suspect AOCI in addition to superficial abdom bleed w/ hematoma, on po Fe Brain mass: per NSG, steroid taper per others, still w/ R weakness, VYAS, meningioma on path thus far, pending Eva review h/o clotting: only on ppx at the moment, can move to full dose apixban at 5 bid soon in f/u Dispo: to rehab for 10 days at [facility] likely?, we'll f/u as outpt prn Thank you kindly and please do not hesitate to call with questions. OBJECTIVE Vital Signs Vital Signs Date Time Temp Pulse Resp B/P (MAP) Pulse Ox O2 Delivery O2 Flow Rate FiO2 11/23/19 07:00 98.6 77 18 105/59 (74) 100 Room Air 98.6 11/23/19 05:41 20 Nasal Cannula 2.0 11/23/19 03:39 99.0 94 20 106/55 (72) 94 Room Air 99.0 11/23/19 01:17 20 Nasal Cannula 2.0 11/23/19 01:17 20 Nasal Cannula 2.0 11/23/19 00:47 20 Nasal Cannula 11/23/19 00:10 20 Nasal Cannula 11/22/19 23:09 99.1 105 20 93/52 (66) 98 Room Air 99.1 11/22/19 22:45 20 Nasal Cannula 2.0 11/22/19 22:15 20 Nasal Cannula 11/22/19 22:07 106 109/58 11/22/19 19:50 Room Air 11/22/19 19:15 99.3 106 18 109/58 (75) 94 Room Air 99.3 11/22/19 18:06 16 Room Air 11/22/19 16:52 16 Room Air 11/22/19 15:28 16 Room Air 11/22/19 15:00 98.2 106 18 102/56 (71) 91 Room Air 98.2 11/22/19 14:38 16 Room Air 11/22/19 14:12 100 Room Air 11/22/19 11:00 97.8 99 16 101/56 (71) 100 Nasal Cannula 2.0 97.8 11/22/19 10:48 16 Room Air 11/22/19 10:14 16 Room Air 11/22/19 10:03 16 Room Air I & O Intake and Output 11/23/19 07:00 Intake Total 720 ml Balance 720 ml Intake Oral 720 ml # Voids 5 # Bowel Movements 3 COMMENT Lab Laboratory Tests Test 11/22/19 11:06 11/22/19 16:47 11/22/19 21:06 11/23/19 05:00 Glucose (Fingerstick) 173 mg/dL (70-99) 84 mg/dL (70-99) 277 mg/dL (70-99) White Blood Count 7.8 x10^3/uL (4.0-11.0) Red Blood Count 2.94 x10^6/uL (3.50-5.40) Hemoglobin 9.0 g/dL (12.0-15.5) Hematocrit 27.4 % (36.0-47.0) Mean Corpuscular Volume 93 fL (79-100) Mean Corpuscular Hemoglobin 31 pg (25-35) Mean Corpuscular Hemoglobin Concent 33 g/dL (31-37) Red Cell Distribution Width 19.5 % (11.5-14.5) Platelet Count 262 x10^3/uL (140-400) Neutrophils (%) (Auto) 94 % (31-73) Lymphocytes (%) (Auto) 4 % (24-48) Monocytes (%) (Auto) 2 % (0-9) Eosinophils (%) (Auto) 0 % (0-3) Basophils (%) (Auto) 0 % (0-3) Neutrophils # (Auto) 7.3 x10^3/uL (1.8-7.7) Lymphocytes # (Auto) 0.3 x10^3/uL (1.0-4.8) Monocytes # (Auto) 0.1 x10^3/uL (0.0-1.1) Eosinophils # (Auto) 0.0 x10^3/uL (0.0-0.7) Basophils # (Auto) 0.0 x10^3/uL (0.0-0.2) Sodium Level 136 mmol/L (136-145) Potassium Level 4.3 mmol/L (3.5-5.1) Chloride Level 101 mmol/L (98-107) Carbon Dioxide Level 27 mmol/L (21-32) Anion Gap 8 (6-14) Blood Urea Nitrogen 18 mg/dL (7-20) Creatinine 0.4 mg/dL (0.6-1.0) Estimated GFR (Cockcroft-Gault) 171.1 BUN/Creatinine Ratio 45 (6-20) Glucose Level 291 mg/dL (70-99) Calcium Level 7.9 mg/dL (8.5-10.1) Total Bilirubin 0.8 mg/dL (0.2-1.0) Aspartate Amino Transf (AST/SGOT) 43 U/L (15-37) Alanine Aminotransferase (ALT/SGPT) 106 U/L (14-59) Alkaline Phosphatase 67 U/L (46-116) Total Protein 5.3 g/dL (6.4-8.2) Albumin 2.6 g/dL (3.4-5.0) Albumin/Globulin Ratio 1.0 (1.0-1.7) Test 11/23/19 08:01 Glucose (Fingerstick) 217 mg/dL (70-99) Nutrition Consultation Dietary Evaluation: Recommendations by RD: Dietary education by RD, Increase Calorie Intake, Protein supplementation Comments: REC continue ADA/cardiac diet ,glucerna tid Expected Outcomes/Goals: PO intake to meet >75% est needs- met at times, goal ongoing Interpretation of weight loss: >5% in 1 month Malnutrition Findings: Food and Nutrition Intake (Sev: <50% est energy req 5days Weight Status: Morbidly Obese ENEDELIA HUYNH MD Nov 23, 2019 09:42
[2019-11-23] MEDS: SUCRALFATE 1 GM TABLET. PO SCH ×3 (09:45→16:43)
[2019-11-23] MEDS: levETIRAcetam 500 MG TABLET PO SCH (09:45)
[2019-11-23] MEDS: NYSTATIN TOPICAL POWDER 15GM BOTTLE. TP SCH (09:45)
[2019-11-23] MEDS: DEXAMETHASONE 4 MG TABLET PO SCH (09:46)
[2019-11-23] MEDS: ALPRAZolam 0.25 MG TABLET PO PRN ×2 (09:46→16:43)
[2019-11-23] MEDS: FLUTICASONE 50MCG/NASAL SPRAY 16GM BOTTLE. NS SCH (09:47)
[2019-11-23] MEDS: FERROUS SULFATE ORAL 300 MG/5 ML SOLUTION. PO SCH (09:47)
[2019-11-23] MEDS: cycloSPORINE 0.05% OPHTH DROPERETTE. OU SCH (09:47)
[2019-11-23] MEDS: INSULIN GLARGINE SYRINGE. SQ SCH (09:57)
[2019-11-23] MEDS: INSULIN LISPRO 300 UNITS/3 ML VIAL. SQ SCH ×6 (09:58→16:46)
[2019-11-23 11:00] VITALS: BP_SYST 161; BP_SYST 99; BP_DIAS 62; BP_DIAS 75
--- NOTE | 2019-11-23 11:24 | PDOC ---
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 Leukocytosis on decadron - has gotten 44 iV doses, shifted to PO decadron 11.17 Acute encephalopathy -POA, resolved Headaches stable DM2 uncontrolled on decadron IV Chronic Back Pain and Sciatica Rt Leg Acute blood loss anemia Brain Mass Hx PE Hypotension resolved Epistaxis resolved GENERALIZED WEAKNESS - REhab on dc Urnary retention off bateman 11/17 MULTIPLE DRUG RESISTANT ESBL UTI -d/c to rehab pending insurance -taper decadron to off over four weeks -oxycodone for po pain control -unless acute changes, no new post-op imaging prior to d/c -d/c edd in approx 1 week, for f/u with NS 11/22/19 STILL HAS HEADACHE, fatigues easily IMPAIRED FUNCTIONAL MOBILITY, MODERATE-SEVERE Discharge Recommendations * Acute Rehab facility * * * D/C PLANNING 35 MIN History of Present Illness History of Present Illness BS still high despite my inc insulin coverage NEeded to be straight cath'd at least 3x - had bateman for about a week MDR ESBL UTI< was on rocephin for longest time NOW on PO x 2 doses q48 hrs per Dr Mitchel suero STable headache Slated for Rehab tuesday CAN TAKE OUT RT CENTRAL LINE ON TUESDAY PRIOR TO DC EARLIER ENTRY transferred out of ICU 12. PAssed swallow (reg diet thin liq) ABle to move RT leg! UNable to lift RT arm JUst worked with PT today - only to chair - rehab screen in the works - TUESDAY DC HAd rt craniotomy with mass resection 11/12 - intra op path stilll pending BS high, on IV decadron - has gotten 44 doses iV decadron - i shfted to PO . 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 PLAN; REHAb tuesday TAKE OUT CENTRAL LINE BEFORE DC MAke sure ABX PO by ID FOR MDR ESBL UTI before dc if needed NO bateman for now, I THINK SHE is regaining her bladder muscle back Further inc lispro to 30 TID with emals from 20 TID COnt long acting 40 BID COnt PO decadron 4 QID on dc FF UP NS as instructed by service Vitals Vitals Vital Signs Date Time Temp Pulse Resp B/P (MAP) Pulse Ox O2 Delivery O2 Flow Rate FiO2 11/23/19 10:26 Room Air 11/23/19 07:00 98.6 77 18 105/59 (74) 100 98.6 11/23/19 05:41 2.0 Physical Exam Physical Exam GENERAL: Propped up in bed, alert, in NAD HEENT: Oral mucosa moist. No oropharyngeal lesion. Scalp incision well approximated w/ stables. no drainage or no surrounding redness NECK: Supple. LUNGS: Clear bilaterally HEART: S1, S2. No gallops or murmurs. ABDOMEN: Obese, soft, nontender, bowel sounds active. Ecchymosis present EXTREMITIES: Right lower extremity edema. No cyanosis. SKIN: Warm and dry. 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 Right-sided weakness, unable to move arm or leg; able to distinguish cold sensation. RIJ clean General: Alert, Oriented X3, Cooperative, No acute distress, Other (extremely weak and depressed) Heart: Regular rate, Normal S1, Normal S2 Lungs: Wheezing Abdomen: Normal bowel sounds, Soft, Other (eechymosis improving) Extremities: No clubbing, No cyanosis, No edema, Normal pulses, No tenderness/swelling Skin: No rashes, No breakdown, Other (Ecchymosis on right abdomen) Labs LABS Laboratory Tests Test 11/22/19 16:47 11/22/19 21:06 11/23/19 05:00 11/23/19 08:01 Glucose (Fingerstick) 84 mg/dL (70-99) 277 mg/dL (70-99) 217 mg/dL (70-99) White Blood Count 7.8 x10^3/uL (4.0-11.0) Red Blood Count 2.94 x10^6/uL (3.50-5.40) Hemoglobin 9.0 g/dL (12.0-15.5) Hematocrit 27.4 % (36.0-47.0) Mean Corpuscular Volume 93 fL (79-100) Mean Corpuscular Hemoglobin 31 pg (25-35) Mean Corpuscular Hemoglobin Concent 33 g/dL (31-37) Red Cell Distribution Width 19.5 % (11.5-14.5) Platelet Count 262 x10^3/uL (140-400) Neutrophils (%) (Auto) 94 % (31-73) Lymphocytes (%) (Auto) 4 % (24-48) Monocytes (%) (Auto) 2 % (0-9) Eosinophils (%) (Auto) 0 % (0-3) Basophils (%) (Auto) 0 % (0-3) Neutrophils # (Auto) 7.3 x10^3/uL (1.8-7.7) Lymphocytes # (Auto) 0.3 x10^3/uL (1.0-4.8) Monocytes # (Auto) 0.1 x10^3/uL (0.0-1.1) Eosinophils # (Auto) 0.0 x10^3/uL (0.0-0.7) Basophils # (Auto) 0.0 x10^3/uL (0.0-0.2) Sodium Level 136 mmol/L (136-145) Potassium Level 4.3 mmol/L (3.5-5.1) Chloride Level 101 mmol/L (98-107) Carbon Dioxide Level 27 mmol/L (21-32) Anion Gap 8 (6-14) Blood Urea Nitrogen 18 mg/dL (7-20) Creatinine 0.4 mg/dL (0.6-1.0) Estimated GFR (Cockcroft-Gault) 171.1 BUN/Creatinine Ratio 45 (6-20) Glucose Level 291 mg/dL (70-99) Calcium Level 7.9 mg/dL (8.5-10.1) Total Bilirubin 0.8 mg/dL (0.2-1.0) Aspartate Amino Transf (AST/SGOT) 43 U/L (15-37) Alanine Aminotransferase (ALT/SGPT) 106 U/L (14-59) Alkaline Phosphatase 67 U/L (46-116) Total Protein 5.3 g/dL (6.4-8.2) Albumin 2.6 g/dL (3.4-5.0) Albumin/Globulin Ratio 1.0 (1.0-1.7) Assessment and Plan Assessmemt and Plan Problems Medical Problems: (1) Abdominal hemorrhage Status: Acute (2) Generalized weakness Status: Acute (3) Lactic acidosis Status: Acute (4) Leukocytosis Status: Acute Comment Review of Relevant I have reviewed the following items mustapha (where applicable) has been applied. Labs Laboratory Tests Test 11/21/19 11:44 11/21/19 16:23 11/21/19 21:01 11/22/19 07:36 Glucose (Fingerstick) 132 mg/dL (70-99) 225 mg/dL (70-99) 196 mg/dL (70-99) 145 mg/dL (70-99) Test 11/22/19 11:06 11/22/19 16:47 11/22/19 21:06 11/23/19 05:00 Glucose (Fingerstick) 173 mg/dL (70-99) 84 mg/dL (70-99) 277 mg/dL (70-99) White Blood Count 7.8 x10^3/uL (4.0-11.0) Red Blood Count 2.94 x10^6/uL (3.50-5.40) Hemoglobin 9.0 g/dL (12.0-15.5) Hematocrit 27.4 % (36.0-47.0) Mean Corpuscular Volume 93 fL (79-100) Mean Corpuscular Hemoglobin 31 pg (25-35) Mean Corpuscular Hemoglobin Concent 33 g/dL (31-37) Red Cell Distribution Width 19.5 % (11.5-14.5) Platelet Count 262 x10^3/uL (140-400) Neutrophils (%) (Auto) 94 % (31-73) Lymphocytes (%) (Auto) 4 % (24-48) Monocytes (%) (Auto) 2 % (0-9) Eosinophils (%) (Auto) 0 % (0-3) Basophils (%) (Auto) 0 % (0-3) Neutrophils # (Auto) 7.3 x10^3/uL (1.8-7.7) Lymphocytes # (Auto) 0.3 x10^3/uL (1.0-4.8) Monocytes # (Auto) 0.1 x10^3/uL (0.0-1.1) Eosinophils # (Auto) 0.0 x10^3/uL (0.0-0.7) Basophils # (Auto) 0.0 x10^3/uL (0.0-0.2) Sodium Level 136 mmol/L (136-145) Potassium Level 4.3 mmol/L (3.5-5.1) Chloride Level 101 mmol/L (98-107) Carbon Dioxide Level 27 mmol/L (21-32) Anion Gap 8 (6-14) Blood Urea Nitrogen 18 mg/dL (7-20) Creatinine 0.4 mg/dL (0.6-1.0) Estimated GFR (Cockcroft-Gault) 171.1 BUN/Creatinine Ratio 45 (6-20) Glucose Level 291 mg/dL (70-99) Calcium Level 7.9 mg/dL (8.5-10.1) Total Bilirubin 0.8 mg/dL (0.2-1.0) Aspartate Amino Transf (AST/SGOT) 43 U/L (15-37) Alanine Aminotransferase (ALT/SGPT) 106 U/L (14-59) Alkaline Phosphatase 67 U/L (46-116) Total Protein 5.3 g/dL (6.4-8.2) Albumin 2.6 g/dL (3.4-5.0) Albumin/Globulin Ratio 1.0 (1.0-1.7) Test 11/23/19 08:01 Glucose (Fingerstick) 217 mg/dL (70-99) Laboratory Tests Test 11/22/19 16:47 11/22/19 21:06 11/23/19 05:00 11/23/19 08:01 Glucose (Fingerstick) 84 mg/dL (70-99) 277 mg/dL (70-99) 217 mg/dL (70-99) White Blood Count 7.8 x10^3/uL (4.0-11.0) Red Blood Count 2.94 x10^6/uL (3.50-5.40) Hemoglobin 9.0 g/dL (12.0-15.5) Hematocrit 27.4 % (36.0-47.0) Mean Corpuscular Volume 93 fL (79-100) Mean Corpuscular Hemoglobin 31 pg (25-35) Mean Corpuscular Hemoglobin Concent 33 g/dL (31-37) Red Cell Distribution Width 19.5 % (11.5-14.5) Platelet Count 262 x10^3/uL (140-400) Neutrophils (%) (Auto) 94 % (31-73) Lymphocytes (%) (Auto) 4 % (24-48) Monocytes (%) (Auto) 2 % (0-9) Eosinophils (%) (Auto) 0 % (0-3) Basophils (%) (Auto) 0 % (0-3) Neutrophils # (Auto) 7.3 x10^3/uL (1.8-7.7) Lymphocytes # (Auto) 0.3 x10^3/uL (1.0-4.8) Monocytes # (Auto) 0.1 x10^3/uL (0.0-1.1) Eosinophils # (Auto) 0.0 x10^3/uL (0.0-0.7) Basophils # (Auto) 0.0 x10^3/uL (0.0-0.2) Sodium Level 136 mmol/L (136-145) Potassium Level 4.3 mmol/L (3.5-5.1) Chloride Level 101 mmol/L (98-107) Carbon Dioxide Level 27 mmol/L (21-32) Anion Gap 8 (6-14) Blood Urea Nitrogen 18 mg/dL (7-20) Creatinine 0.4 mg/dL (0.6-1.0) Estimated GFR (Cockcroft-Gault) 171.1 BUN/Creatinine Ratio 45 (6-20) Glucose Level 291 mg/dL (70-99) Calcium Level 7.9 mg/dL (8.5-10.1) Total Bilirubin 0.8 mg/dL (0.2-1.0) Aspartate Amino Transf (AST/SGOT) 43 U/L (15-37) Alanine Aminotransferase (ALT/SGPT) 106 U/L (14-59) Alkaline Phosphatase 67 U/L (46-116) Total Protein 5.3 g/dL (6.4-8.2) Albumin 2.6 g/dL (3.4-5.0) Albumin/Globulin Ratio 1.0 (1.0-1.7) Microbiology 11/10/19 Urine Culture - Final, Complete 11/10/19 Urine Culture Result 1 (СВЕТЛАНА) - Final, Complete 11/10/19 Antimicrobic Susceptibility - Final, Complete 11/01/19 Blood Culture - Final, Complete NO GROWTH AFTER 5 DAYS Medications Current Medications Sodium Chloride 500 ml @ 500 mls/hr 1X ONCE IV Last administered on 11/01/19at 13:00; Start 11/01/19 at 13:00; Stop 11/01/19 at 13:59; Status DC Ondansetron HCl (Zofran) 4 mg 1X ONCE IV Last administered on 11/01/19at 13:26; Start 11/01/19 at 13:00; Stop 11/01/19 at 13:13; Status DC Hydromorphone HCl (Dilaudid) 0.5 mg 1X STAT IVP Last administered on 11/01/19at 13:26; Start 11/01/19 at 12:59; Stop 11/01/19 at 13:13; Status DC Iohexol (Omnipaque 300 Mg/ml) 75 ml 1X ONCE IV Last administered on 11/01/19at 14:08; Start 11/01/19 at 13:45; Stop 11/01/19 at 13:46; Status DC Info (CONTRAST GIVEN -- Rx MONITORING) 1 each PRN DAILY PRN MC SEE COMMENTS; Start 11/01/19 at 14:00; Stop 11/03/19 at 13:59; Status DC Hydromorphone HCl (Dilaudid) 0.5 mg 1X STAT IVP Last administered on 11/01/19at 16:53; Start 11/01/19 at 16:21; Stop 11/01/19 at 16:23; Status DC Sodium Chloride 1,000 ml @ 1,000 mls/hr 1X ONCE IV Last administered on 11/01/19at 16:30; Start 11/01/19 at 16:30; Stop 11/01/19 at 17:29; Status DC Sodium Chloride 500 ml @ 500 mls/hr 1X ONCE IV Last administered on 11/01/19at 16:30; Start 11/01/19 at 16:30; Stop 11/01/19 at 17:29; Status DC Albuterol Sulfate (Ventolin Neb Soln) 2.5 mg PRN Q6HRS PRN INH SHORTNESS OF BREATH; Start 11/01/19 at 16:30; Status Cancel Alprazolam (Xanax) 0.25 mg PRN TID PRN PO anxiety; Start 11/01/19 at 16:30; Stop 11/01/19 at 17:11; Status DC Amlodipine Besylate (Norvasc) 5 mg DAILY PO Last administered on 11/16/19 08:47; Start 11/02/19 at 09:00; Stop 11/18/19 at 09:18; Status DC Cyclosporine (Restasis) 1 drop BID OU Last administered on 11/23/19 09:47; Start 11/01/19 at 21:00 Fluticasone Propionate (Flonase) 2 spray DAILY NS Last administered on 11/23/19 09:47; Start 11/02/19 at 09:00 Lactobacillus Rhamnosus (Culturelle) 1 cap BID PO Last administered on 11/09/19 08:28; Start 11/01/19 at 21:00; Stop 11/09/19 at 16:57; Status DC Lidocaine (Lidoderm) 1 patch DAILY TP ; Start 11/02/19 at 09:00; Stop 11/01/19 at 20:34; Status DC Metoprolol Succinate (Toprol Xl) 100 mg HS PO Last administered on 11/17/19 21:05; Start 11/01/19 at 21:00; Stop 11/18/19 at 09:18; Status DC Nystatin (Nystop) 1 raza BID TP Last administered on 11/23/19 09:45; Start 11/01/19 at 21:00 Pantoprazole Sodium (Protonix) 40 mg DAILYAC PO Last administered on 11/09/19 08:28; Start 11/02/19 at 07:30; Stop 11/09/19 at 16:54; Status DC Senna/Docusate Sodium (Senna Plus) 1 tab BID PO Last administered on 11/18/19at 09:37; Start 11/01/19 at 21:00 Sucralfate (Carafate) 1 gm TIDAC PO Last administered on 11/23/19 09:45; Start 11/01/19 at 17:30 Tramadol HCl (Ultram) 50 mg PRN Q8HRS PRN PO PAIN; Start 11/01/19 at 16:30; Stop 11/01/19 at 19:43; Status DC Insulin Glargine (Lantus Syringe) 30 unit QHS SQ Last administered on 11/06/19at 21:16; Start 11/01/19 at 21:00; Stop 11/07/19 at 15:56; Status DC Ondansetron HCl (Zofran Odt) 8 mg PRN Q8HRS PRN PO NAUSEA/VOMITING Last administered on 11/17/19 12:12; Start 11/01/19 at 17:15 Polyethylene Glycol (miraLAX PACKET) 17 gm PRN DAILY PRN PO CONSTIPATION, 1ST CHOICE Last administered on 11/17/19 08:30; Start 11/01/19 at 17:11 Atorvastatin Calcium (Lipitor) 80 mg QHS PO Last administered on 11/22/19 22:07; Start 11/01/19 at 21:00 Insulin Human Lispro (HumaLOG) 0-9 UNITS TIDAC SQ Last administered on 11/07/19 12:20; Start 11/01/19 at 16:30; Stop 11/07/19 at 15:56; Status DC Dextrose (Dextrose 50%-Water Syringe) 12.5 gm PRN Q15MIN PRN IV SEE COMMENTS; Start 11/01/19 at 16:30; Stop 11/12/19 at 15:36; Status DC Ondansetron HCl (Zofran) 4 mg PRN Q8HRS PRN IV NAUSEA/VOMITING; Start 11/01/19 at 16:30; Stop 11/02/19 at 16:29; Status DC Alprazolam (Xanax) 0.25 mg PRN TID PRN PO anxiety Last administered on 11/23/19 09:46; Start 11/01/19 at 17:11 Miscellaneous (Lidoderm Patch Removal) 1 ea QHS ; Start 11/01/19 at 21:00; Stop 11/01/19 at 20:34; Status DC Ceftriaxone Sodium (Rocephin) 1 gm QHS IVP Last administered on 11/15/19 21:26; Start 11/01/19 at 18:45; Stop 11/16/19 at 08:52; Status DC Tramadol HCl (Ultram) 50 mg PRN Q8HRS PRN PO MILD PAIN 1-3 Last administered on 11/15/19 17:56; Start 11/01/19 at 19:45 Hydromorphone HCl (Dilaudid) 1 mg PRN Q4HRS PRN IV SEVERE PAIN Last administered on 11/23/19 09:43; Start 11/01/19 at 20:15 Lidocaine (Lidoderm) 1 patch QHS TP Last administered on 11/18/19at 20:49; Start 11/01/19 at 21:00 Miscellaneous (Lidoderm Patch Removal) 1 ea DAILY MC Last administered on 11/22/19at 09:00; Start 11/02/19 at 09:00 Albumin Human 500 ml @ 125 mls/hr 1X ONCE IV ; Start 11/02/19 at 02:00; Stop 11/02/19 at 05:59; Status Cancel Acetaminophen (Tylenol) 650 mg 1X PRN PRN PO PRE-TRANSFUSION; Start 11/02/19 at 06:45; Stop 11/03/19 at 14:16; Status DC Diphenhydramine HCl (Benadryl Oral Elixir) 12.5 mg 1X PRN PRN PO PRE- TRANSFUSION; Start 11/02/19 at 06:45; Stop 11/03/19 at 14:16; Status DC Diphenhydramine HCl (Benadryl) 25 mg PRN 1X PRN PO PRE-TRANSFUSION; Start 11/02/19 at 06:45; Stop 11/03/19 at 14:16; Status DC Lactulose (LACTULOSE 300ML for RECTAL) 200 gm Q6HRS MO Last administered on 11/02/19at 18:00; Start 11/02/19 at 18:00; Stop 11/04/19 at 14:44; Status DC Sodium Chloride 1,000 ml @ 100 mls/hr Q10H IV Last administered on 11/13/19at 15:30; Start 11/02/19 at 12:00; Stop 11/14/19 at 11:28; Status DC Lactulose (Lactulose) 20 gm PRN DAILY PRN PO CONSTIPATION, 2ND CHOICE; Start 11/04/19 at 14:45 Oxycodone HCl (Roxicodone) 5 mg PRN Q6HRS PRN PO MODERATE TO SEVERE PAIN Last administered on 11/23/19at 00:10; Start 11/04/19 at 14:45 Lidocaine HCl (Buffered Lidocaine 1%) 3 ml STK-MED ONCE .ROUTE ; Start 11/05/19 at 08:13; Stop 11/05/19 at 08:13; Status DC Lidocaine HCl (Buffered Lidocaine 1%) 3 ml STK-MED ONCE .ROUTE ; Start 11/05/19 at 08:14; Stop 11/05/19 at 08:14; Status DC Midazolam HCl (Versed) 2 mg STK-MED ONCE .ROUTE ; Start 11/05/19 at 08:40; Stop 11/05/19 at 08:40; Status DC Fentanyl Citrate (Fentanyl 2ml Vial) 100 mcg STK-MED ONCE .ROUTE ; Start 11/05/19 at 08:40; Stop 11/05/19 at 08:41; Status DC Lidocaine HCl (Buffered Lidocaine 1%) 3 ml 1X ONCE IJ Last administered on 11/05/19at 08:45; Start 11/05/19 at 08:45; Stop 11/05/19 at 08:50; Status DC Midazolam HCl (Versed) 2 mg 1X ONCE IV Last administered on 11/05/19at 08:45; Start 11/05/19 at 08:45; Stop 11/05/19 at 08:50; Status DC Fentanyl Citrate (Fentanyl 2ml Vial) 100 mcg 1X ONCE IV Last administered on 11/05/19at 08:45; Start 11/05/19 at 08:45; Stop 11/05/19 at 08:50; Status DC Dexamethasone Sodium Phosphate (Decadron) 4 mg Q6HRS IVP Last administered on 11/17/19at 06:03; Start 11/06/19 at 09:00; Stop 11/17/19 at 08:53; Status DC Insulin Glargine (Lantus Syringe) 40 unit QHS SQ Last administered on 11/15/19at 21:00; Start 11/07/19 at 21:00; Stop 11/16/19 at 08:53; Status DC Insulin Human Lispro (HumaLOG) 10 units TIDAC SQ Last administered on 11/14/19at 17:31; Start 11/07/19 at 16:30; Stop 11/15/19 at 08:16; Status DC Insulin Human Lispro (HumaLOG) 0-9 UNITS TIDWMEALS SQ Last administered on 11/11/19at 17:13; Start 11/07/19 at 17:00; Stop 11/12/19 at 15:37; Status DC Insulin Human Lispro (HumaLOG) 19 units 1X ONCE SQ Last administered on 11/09/19at 12:41; Start 11/09/19 at 12:15; Stop 11/09/19 at 12:16; Status DC Insulin Human Lispro (HumaLOG) 5 units 1X ONCE SQ Last administered on 11/09/19at 13:52; Start 11/09/19 at 13:30; Stop 11/09/19 at 13:31; Status DC Non-Formulary Medication 1 ea DAILY PO ; Start 11/09/19 at 16:30; Status Cancel Ondansetron HCl (Zofran) 4 mg PRN Q6HRS PRN IV NAUSEA/VOMITING; Start 11/12/19 at 07:00; Stop 11/12/19 at 19:56; Status DC Fentanyl Citrate (Fentanyl 2ml Vial) 25 mcg PRN Q5MIN PRN IV MILD PAIN 1-3; Start 11/12/19 at 07:00; Stop 11/12/19 at 19:56; Status DC Fentanyl Citrate (Fentanyl 2ml Vial) 50 mcg PRN Q5MIN PRN IV MODERATE TO SEVERE PAIN; Start 11/12/19 at 07:00; Stop 11/12/19 at 19:56; Status DC Morphine Sulfate (Morphine Sulfate) 1 mg PRN Q10MIN PRN IV SEVERE PAIN 7-10; Start 11/12/19 at 07:00; Stop 11/09/19 at 17:30; Status DC Ringer's Solution 1,000 ml @ 30 mls/hr Q24H IV Last administered on 11/12/19at 10:00; Start 11/12/19 at 07:00; Stop 11/12/19 at 18:59; Status DC Lidocaine HCl (Xylocaine-Mpf 1% 2ml Vial) 2 ml PRN 1X PRN ID PRIOR TO IV START; Start 11/12/19 at 07:00; Stop 11/12/19 at 19:56; Status DC Hydromorphone HCl (Dilaudid) 0.5 mg PRN Q10MIN PRN IV SEV PAIN, Second choice; Start 11/12/19 at 07:00; Stop 11/12/19 at 19:56; Status DC Prochlorperazine Edisylate (Compazine) 5 mg PACU PRN PRN IV NAUSEA, MRX1; Start 11/12/19 at 07:00; Stop 11/12/19 at 19:56; Status DC Pantoprazole Sodium (Protonix) 40 mg DAILYAC PO Last administered on 11/14/19at 08:19; Start 11/09/19 at 18:30; Stop 11/15/19 at 09:25; Status DC Levetiracetam (Keppra) 500 mg BID PO Last administered on 11/23/19at 09:45; Start 11/09/19 at 21:00 Non-Formulary Medication 1 ea DAILY PO Last administered on 11/23/19at 09:45; Start 11/12/19 at 09:00 Insulin Human Lispro (HumaLOG) 8 units 1X ONCE SQ Last administered on 11/10/19at 12:32; Start 11/10/19 at 12:15; Stop 11/10/19 at 12:16; Status DC Propofol 20 ml @ As Directed STK-MED ONCE IV ; Start 11/12/19 at 07:48; Stop 11/12/19 at 07:48; Status DC Dexamethasone Sodium Phosphate (Decadron) 20 mg STK-MED ONCE .ROUTE ; Start 11/12/19 at 07:48; Stop 11/12/19 at 07:48; Status DC Lidocaine HCl (Lidocaine Pf 2% Vial) 5 ml STK-MED ONCE .ROUTE ; Start 11/12/19 at 07:48; Stop 11/12/19 at 07:48; Status DC Ondansetron HCl (Zofran) 4 mg STK-MED ONCE .ROUTE ; Start 11/12/19 at 07:48; Stop 11/12/19 at 07:48; Status DC Phenylephrine HCl (Toyn-Synephrine Inj) 10 mg STK-MED ONCE .ROUTE ; Start 11/12/19 at 07:48; Stop 11/12/19 at 07:48; Status DC Propofol 50 ml @ As Directed STK-MED ONCE IV ; Start 11/12/19 at 07:48; Stop 11/12/19 at 07:48; Status DC Rocuronium Pearl (Zemuron) 50 mg STK-MED ONCE .ROUTE ; Start 11/12/19 at 07:48; Stop 11/12/19 at 07:48; Status DC Remifentanil HCl (Ultiva) 2 mg STK-MED ONCE IV ; Start 11/12/19 at 07:48; Stop 11/12/19 at 07:49; Status DC Sodium Chloride (SODIUM CHLORIDE 20ml) 20 ml STK-MED ONCE IJ ; Start 11/12/19 at 07:49; Stop 11/12/19 at 07:49; Status DC Multi-Ingred Cream/Lotion/Oil/ Oint (Artificial Tears Eye Ointment) 7 raza STK- MED ONCE .ROUTE ; Start 11/12/19 at 07:49; Stop 11/12/19 at 07:49; Status DC Bacitracin 94597 unit/Sodium Chloride 1,000 ml @ 1,000 mls/hr 1X ONCE IRR Last administered on 11/12/19at 11:26; Start 11/12/19 at 07:57; Stop 11/12/19 at 08:56; Status DC Sodium Chloride (SODIUM CHLORIDE 20ml) 20 ml STK-MED ONCE IJ ; Start 11/12/19 at 07:57; Stop 11/12/19 at 07:57; Status DC Gelatin (Gelfoam Size 100) 1 each STK-MED ONCE .ROUTE Last administered on 11/12/19at 11:26; Start 11/12/19 at 07:59; Stop 11/12/19 at 07:59; Status DC Cellulose (Surgicel Hemostat 4x8) 1 each STK-MED ONCE .ROUTE Last administered on 11/12/19at 12:01; Start 11/12/19 at 07:59; Stop 11/12/19 at 08:00; Status DC Lidocaine/ Epinephrine (LIDOCAINE 1%-EPI 1:100,000 Multi-Dose) 20 ml STK-MED O NCE .ROUTE Last administered on 11/12/19at 11:26; Start 11/12/19 at 07:59; Stop 11/12/19 at 08:00; Status DC Thrombin 20,000 unit STK-MED ONCE TP Last administered on 11/12/19at 11:26; Start 11/12/19 at 08:00; Stop 11/12/19 at 08:00; Status DC Bacitracin (Bacitracin Zinc Oint Pkt) 1 pkt STK-MED ONCE TP ; Start 11/12/19 at 08:00; Stop 11/12/19 at 08:00; Status DC Propofol 100 ml @ As Directed STK-MED ONCE IV ; Start 11/12/19 at 08:02; Stop 11/12/19 at 08:02; Status DC Insulin Human Lispro (HumaLOG) 11 units 1X ONCE SQ Last administered on 11/12/19at 08:15; Start 11/12/19 at 08:15; Stop 11/12/19 at 08:16; Status DC Gadoterate Meglumine (Dotarem) 24.8 ml 1X ONCE IVP Last administered on 11/12/19at 08:15; Start 11/12/19 at 08:15; Stop 11/12/19 at 08:16; Status DC Insulin Human Regular 100 unit/ Sodium Chloride 101 ml @ 12.484 mls/ hr ONCE ONCE IV ; Start 11/12/19 at 08:15; Stop 11/12/19 at 16:20; Status DC Desflurane (Suprane) 90 ml STK-MED ONCE IH ; Start 11/12/19 at 08:11; Stop 1 01/13/19 at 08:11; Status DC Fentanyl Citrate (Fentanyl 2ml Vial) 100 mcg STK-MED ONCE .ROUTE ; Start 11/12/19 at 08:20; Stop 11/12/19 at 08:20; Status DC Midazolam HCl (Versed) 2 mg STK-MED ONCE .ROUTE ; Start 11/12/19 at 08:20; Stop 11/12/19 at 08:20; Status DC Rocuronium Pearl (Zemuron) 50 mg STK-MED ONCE .ROUTE ; Start 11/12/19 at 09:11; Stop 11/12/19 at 09:12; Status DC Mannitol (Mannitol) 12.5 g STK-MED ONCE .ROUTE ; Start 11/12/19 at 09:22; Stop 11/12/19 at 09:23; Status DC Propofol 100 ml @ As Directed STK-MED ONCE IV ; Start 11/12/19 at 09:22; Stop 11/12/19 at 09:23; Status DC Lidocaine HCl (Xylocaine-Mpf 1% 2ml Vial) 2 ml STK-MED ONCE .ROUTE ; Start 11/12/19 at 09:24; Stop 11/12/19 at 09:24; Status DC Cefazolin Sodium 3 gm/Dextrose 100 ml @ 200 mls/hr 1X PREOP ONCE IV Last administered on 11/12/19at 10:53; Start 11/12/19 at 10:30; Stop 11/12/19 at 10:59; Status DC Gelatin (Gelfoam Size 12-7mm) 1 each STK-MED ONCE .ROUTE Last administered on 11/12/19 12:03; Start 11/12/19 at 11:59; Stop 11/12/19 at 12:01; Status DC Thrombin 20,000 unit STK-MED ONCE TP Last administered on 11/12/19at 12:04; Start 11/12/19 at 12:00; Stop 11/12/19 at 12:01; Status DC Gelatin (Gelfoam Size 100) 1 each STK-MED ONCE .ROUTE Last administered on 11/12/19 12:25; Start 11/12/19 at 12:26; Stop 11/12/19 at 12:26; Status DC Gelatin (Gelfoam Size 12-7mm) 1 each STK-MED ONCE .ROUTE Last administered on 11/12/19 13:35; Start 11/12/19 at 13:32; Stop 11/12/19 at 13:33; Status DC Thrombin 20,000 unit STK-MED ONCE TP Last administered on 11/12/19 13:35; Start 11/12/19 at 13:32; Stop 11/12/19 at 13:33; Status DC Gelatin (Gelfoam Size 12-7mm) 1 each STK-MED ONCE .ROUTE Last administered on 11/12/19 13:55; Start 11/12/19 at 13:55; Stop 11/12/19 at 13:55; Status DC Gelatin (Gelfoam Size 12-7mm) 1 each STK-MED ONCE .ROUTE Last administered on 11/12/19at 13:59; Start 11/12/19 at 13:59; Stop 11/12/19 at 13:59; Status DC Labetalol HCl (Normodyne Iv Push) 5 mg PRN Q15MIN PRN IVP HYPERTENSION; Start 11/12/19 at 15:15 Nicardipine HCl 50 mg/Sodium Chloride 250 ml @ 25 mls/hr TITRATE PRN IV SBP 90-140; Start 11/12/19 at 15:15; Stop 11/15/19 at 08:16; Status DC Hydralazine HCl (Apresoline Inj) 5 mg PRN Q6HRS PRN IVP TO KEEP SBP<140mmHg; Start 11/12/19 at 15:15 Al Hydroxide/Mg Hydroxide (Mylanta Plus Xs) 30 ml PRN Q3HRS PRN PO HEARTBURN / GAS; Start 11/12/19 at 15:15 Calcium Carbonate/ Glycine (Tums) 500 mg PRN Q3HRS PRN PO INDIGESTION Last administered on 11/20/19at 16:15; Start 11/12/19 at 15:15 Diphenhydramine HCl (Benadryl) 25 mg PRN Q6HRS PRN PO ITCHING; Start 11/12/19 at 15:15 Diphenhydramine HCl (Benadryl) 25 mg PRN Q6HRS PRN IV ITCHING; Start 11/12/19 at 15:15 Sodium Chloride (Normal Saline Flush) 3 ml QSHIFT PRN IV AFTER MEDS AND BLOOD DRAWS; Start 11/12/19 at 15:15 Insulin Human Lispro (HumaLOG) 0-5 UNITS TIDWMEALS SQ Last administered on 11/17/19at 08:39; Start 11/12/19 at 17:00; Stop 11/17/19 at 08:54; Status DC Dextrose (Dextrose 50%-Water Syringe) 12.5 gm PRN Q15MIN PRN IV SEE COMMENTS; Start 11/12/19 at 15:15 Dextrose (Iv Dextrose 5%) 250 ml PRN Q15MIN PRN IV SEE COMMENTS; Start 11/12/19 at 15:15; Stop 11/18/19 at 08:17; Status DC Hydromorphone HCl (Dilaudid) 0.2 mg PRN Q1HR PRN IV MODERATE PAIN Last administered on 11/19/19at 03:58; Start 11/12/19 at 15:15 Insulin Human Lispro (HumaLOG VIAL for OP,RR ONLY) 0-10 units PRN Q1HR PRN SQ PER PROTOCOL Last administered on 11/12/19at 15:50; Start 11/12/19 at 16:00; Stop 11/12/19 at 19:54; Status DC Insulin Human Lispro (HumaLOG VIAL for OP,RR ONLY) 4 unit 1X ONCE SQ ; Start 11/12/19 at 16:45; Stop 11/12/19 at 16:46; Status DC Ferrous Sulfate (Iron Oral Solution) 300 mg QD PO Last administered on 11/23/19at 09:47; Start 11/13/19 at 10:00 Gadoterate Meglumine (Dotarem) 10 ml 1X ONCE IVP Last administered on 11/13/19at 15:00; Start 11/13/19 at 14:45; Stop 11/13/19 at 14:48; Status DC Gadoterate Meglumine (Dotarem) 15 ml 1X ONCE IVP Last administered on 11/13/19at 15:00; Start 11/13/19 at 14:45; Stop 11/13/19 at 14:48; Status DC Insulin Human Lispro (HumaLOG) 15 units TIDAC SQ Last administered on 11/15/19at 17:08; Start 11/15/19 at 08:15; Stop 11/16/19 at 08:53; Status DC Insulin Glargine (Lantus Syringe) 20 unit DAILY SQ Last administered on 11/15/19at 09:20; Start 11/15/19 at 09:00; Stop 11/16/19 at 08:53; Status DC Enoxaparin Sodium (Lovenox 40mg Syringe) 40 mg Q12H SQ Last administered on 11/15/19at 23:36; Start 11/15/19 at 10:00; Stop 11/16/19 at 07:50; Status DC Enoxaparin Sodium (Lovenox 40mg Syringe) 40 mg DAILY SQ Last administered on 11/22/19at 09:12; Start 11/16/19 at 09:00; Stop 11/22/19 at 10:06; Status DC Meropenem 1 gm/ Sodium Chloride 100 ml @ 200 mls/hr Q8HRS IV ; Start 11/16/19 at 14:00; Stop 11/16/19 at 12:31; Status DC Insulin Glargine (Lantus Syringe) 40 unit BID SQ Last administered on 11/23/19at 09:57; Start 11/16/19 at 09:00 Insulin Human Lispro (HumaLOG) 20 units TIDAC SQ Last administered on 11/18/19at 08:35; Start 11/16/19 at 11:30; Stop 11/18/19 at 09:19; Status DC Insulin Glargine (Lantus Syringe) 20 unit 1X ONCE SQ Last administered on 11/16/19at 09:48; Start 11/16/19 at 09:15; Stop 11/16/19 at 09:16; Status DC Fosfomycin Tromethamine (Monurol) 3 gm 1X ONCE PO Last administered on 11/16/19at 12:49; Start 11/16/19 at 12:30; Stop 11/16/19 at 12:33; Status DC Fosfomycin Tromethamine (Monurol) 3 gm 1X ONCE PO Last administered on 11/18/19at 09:57; Start 11/18/19 at 09:00; Stop 11/18/19 at 09:01; Status DC Dexamethasone (Decadron) 4 mg QID PO Last administered on 11/19/19at 20:55; Start 11/17/19 at 13:00; Stop 11/20/19 at 08:47; Status DC Insulin Human Lispro (HumaLOG) 0-9 UNITS TIDWMEALS SQ Last administered on 11/23/19 09:58; Start 11/17/19 at 12:00 Dextrose (Dextrose 50%-Water Syringe) 12.5 gm PRN Q15MIN PRN IV SEE COMMENTS; Start 11/17/19 at 09:00; Status UNV Dextrose (Iv Dextrose 5%) 250 ml PRN Q15MIN PRN IV SEE COMMENTS; Start 11/17/19 at 09:00 Metoprolol Succinate (Toprol Xl) 50 mg HS PO Last administered on 11/22/19at 22: 07; Start 11/18/19 at 21:00 Insulin Human Lispro (HumaLOG) 30 units TIDAC SQ Last administered on 11/23/19 09:58; Start 11/18/19 at 09:30 Dexamethasone (Decadron) 4 mg BID PO Last administered on 11/23/19 09:46; Start 11/20/19 at 09:00 Phenyleph/Shark Oil/Min Oil/Petrol (Preparation H) 1 raza PRN QID PRN RC RECTAL PAIN Last administered on 11/21/19 11:01; Start 11/21/19 at 10:15 Apixaban (Eliquis) 2.5 mg BID PO Last administered on 11/23/19 09:46; Start 11/23/19 at 09:00 Active Scripts Active Sprycel (Dasatinib) 100 Mg Tablet 100 Mg PO BID 30 Days Tramadol Hcl 50 Mg Tablet 50 Mg PO PRN Q8HRS PRN Novolog Flexpen (Insulin Aspart) 100 Unit/1 Ml Insuln.pen 30 Unit SQ TID 30 Days Lantus Solostar (Insulin Glargine,Hum.rec.anlog) 100 Unit/1 Ml Insuln.pen 40 Unit SQ BID Decadron (Dexamethasone) 4 Mg Tablet 1 Tab PO BID 3 Days Culturelle (Lactobacillus Rhamnosus Gg) 1 Each Cap.sprink 1 Cap PO BID 30 Days Reported Roxicodone (Oxycodone HCl) 5 Mg Tablet 1 Tab PO PRN Q6HRS PRN Ferrous Sulfate 325 Mg Tablet 1 Tab PO DAILY Keppra (Levetiracetam) 500 Mg Tablet 1 Tab PO BID 30 Days Cymbalta (Duloxetine Hcl) 60 Mg Capsule.dr 1 Cap PO BID Lyrica (Pregabalin) 150 Mg Capsule 1 Cap PO BID Crestor (Rosuvastatin Calcium) 40 Mg Tablet 0.5 Tab PO DAILY Polyethylene Glycol 3350 2,500 Gm Powder 17 Gm PO PRN PRN Xanax (Alprazolam) 1 Mg Tablet 1 Tab PO TID Restasis (Cyclosporine) 1 Each Droperette 1 Drop EACHEYE BID Proair Hfa Inhaler (Albuterol Sulfate) 8.5 Gm Hfa.aer.ad 1 Puff INH PRN Q6HRS PRN Ondansetron Hcl 4 Mg Tablet 2 Tab PO PRN Q8HRS PRN Nystatin 15 Gm Powder 1 [place] TP BID Fluticasone Propionate Nasal [place] (Fluticasone Propionate) 16 Gm [place].susp 2 [place] NS DAILY Senna-Docusate Sodium Tablet (Sennosides/Docusate Sodium) 1 Each Tablet 1 Each PO BID LAST DOSE THIS AM NEXT DOSE TONIGHT Protonix (Pantoprazole Sodium) 40 Mg Tablet.dr 40 Mg PO DAILY LST DOSE THIS AM NEXT DOSE TOMORROW AM Carafate (Sucralfate) 1 Gm Tablet 1 Tab PO TID Meds not given this hospital admission. May resume home medications as approved by Physician. MAY TAKE WHEN AVAILABLE Metoprolol Succinate ( Xl ) (Metoprolol Succinate) 100 Mg Tab.er.24h 50 Mg PO HS Vitals/I & O Vital Sign - Last 24 Hours 11/22/19 11/22/19 11/22/19 11/22/19 14:12 14:38 15:00 15:28 Temp 98.2 98.2 Pulse 106 Resp 16 18 16 B/P (MAP) 102/56 (71) Pulse Ox 100 91 O2 Delivery Room Air Room Air Room Air Room Air 11/22/19 11/22/19 11/22/19 11/22/19 16:52 18:06 19:15 19:50 Temp 99.3 99.3 Pulse 106 Resp 16 16 18 B/P (MAP) 109/58 (75) Pulse Ox 94 O2 Delivery Room Air Room Air Room Air Room Air 11/22/19 11/22/19 11/22/19 11/22/19 22:07 22:15 22:45 23:09 Temp 99.1 99.1 Pulse 106 105 Resp 20 20 20 B/P (MAP) 109/58 93/52 (66) Pulse Ox 98 O2 Delivery Nasal Cannula Nasal Cannula Room Air O2 Flow Rate 2.0 11/23/19 11/23/19 11/23/19 11/23/19 00:10 00:47 01:17 01:17 Resp 20 20 20 20 O2 Delivery Nasal Cannula Nasal Cannula Nasal Cannula Nasal Cannula O2 Flow Rate 2.0 2.0 11/23/19 11/23/19 11/23/19 11/23/19 03:39 05:41 07:00 08:20 Temp 99.0 98.6 99.0 98.6 Pulse 94 77 Resp 20 20 18 B/P (MAP) 106/55 (72) 105/59 (74) Pulse Ox 94 100 O2 Delivery Room Air Nasal Cannula Room Air Room Air O2 Flow Rate 2.0 11/23/19 11/23/19 09:43 10:26 O2 Delivery Room Air Room Air Intake and Output 11/22/19 11/22/19 11/23/19 15:00 23:00 07:00 Intake Total 240 ml 480 ml Balance 240 ml 480 ml Nutrition Consultation Dietary Evaluation: Recommendations by RD: Dietary education by RD, Increase Calorie Intake, Protein supplementation Comments: REC continue ADA/cardiac diet ,glucerna tid Expected Outcomes/Goals: PO intake to meet >75% est needs- met at times, goal ongoing Interpretation of weight loss: >5% in 1 month Malnutrition Findings: Food and Nutrition Intake (Sev: <50% est energy req 5days Weight Status: Morbidly Obese FULBRIGHT,LUANNE W MD Nov 23, 2019 11:24
--- NOTE | 2019-11-23 12:02 | NUR ---
SW following. Discussed with RN, pt is wanting OP rehab. Awaiting insurance auth. SW will continue to follow.
--- NOTE | 2019-11-23 13:28 | PDOC ---
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 Vasogenic edema with 4 mm left to right midline shift Headaches. Right side hemiplegia, UE > LE. Cognitive impairment. Staring spells. CML. HTN. HLD. DM. KRISS. ADHD. PE Hx. Leukocytosis. Obesity. RECOMMENDATIONS/PLAN: Decadron duration per NS. Continue Lipitor HS. Treat medical diseases. FU with Neurosurgery and Oncology. FU pathology reports. Weight reduction. OT/PT. Rehab. EEG on 11/06/19: normal. Past Medical History Cardiovascular: HTN, Hyperlipidemia, Other (tachycardia) Pulmonary: Asthma, Pulmonary embolus ( DVT, on [place]), Other (sleep apnea) CENTRAL NERVOUS SYSTEM: Periperal neuropathy, Other (right L5 radiculopathy) GI: Peptic Ulcer disease, Other (pancreatitis, hiatal hernia) Psych: Anxiety, Depression, Other (ADHD) Musculoskeletal: low back pain Renal/: Other (nephrolithiasis) Endocrine: Diabetes Past Surgical History Appendectomy, Cholecystectomy, , Hysterectomy (fbrioids), Other (lumbar laminectomy) Family History Cancer, CAD Social History ex smoker, no alcohol, disabled Allergies Coded Allergies: azithromycin (Verified Allergy, Intermediate, 10/12/19) codeine (Verified Allergy, Intermediate, 05/06/17) morphine (Verified Allergy, Intermediate, 05/06/17) ROS Negative for fever, chills, weight loss, shortness of breath, chest pain, indigestion, hematochezia, melena, and dysuria. Full 14-point review of systems is negative. MEDICATIONS: Refer to MAR PHYSICAL EXAMINATION: General appearance in subacute distress. HEENT: Normocephalic and nontraumatic. Eyes, nose, ears, and throat are unremarkable. Hearing decrease. Neck is supple. No lymphadenopathy. No Crepitus. Cardiovascular: S1, S2, regular rate and rhythm. Pulmonary: Clear to auscultation bilaterally. Abdomen: Bowel sounds are positive. Abdomen is soft, nontender, and nondistended. Extremities: No rash, lesions, or edema. No restriction of range of motion NEUROLOGICAL EXAMINATION: Alert. Sitting in chair. Oriented to time, place and person. PERRL. EOMI. CN: no focal findings. Muscle tone: within normal. Muscle strength: 0 right UE, 2 right LE, 5- left side. DTR: 0-1 right side, 1+ left side. Plantar reflex: neutral response bilaterally Gait: Not able to walk a few steps. Sensory exam: Decreased to light touch in right LE below the knee. No cerebellar signs elicited. F-T-N test fine in left side. Unable to move right UE. Objective Objective Vital Signs Date Time Temp Pulse Resp B/P (MAP) Pulse Ox O2 Delivery O2 Flow Rate FiO2 11/23/19 13:09 Room Air 11/23/19 11:00 97.7 93 18 99/62 (74) 97 97.7 11/23/19 05:41 2.0 Intake and Output 11/23/19 06:59 Intake Total 720 ml Balance 720 ml Intake Oral 720 ml # Voids 5 # Bowel Movements 3 Vitals Signs Vitals VS - Last 72 Hours, by Label Date Time Temp Pulse Resp B/P (MAP) Pulse Ox O2 Delivery O2 Flow Rate FiO2 11/23/19 13:09 Room Air 11/23/19 11:49 Room Air 11/23/19 11:00 97.7 93 18 99/62 (74) 97 Room Air 97.7 11/23/19 10:26 Room Air 11/23/19 09:43 Room Air 11/23/19 08:20 Room Air 11/23/19 07:00 98.6 77 18 105/59 (74) 100 Room Air 98.6 11/23/19 05:41 20 Nasal Cannula 2.0 11/23/19 03:39 99.0 94 20 106/55 (72) 94 Room Air 99.0 11/23/19 01:17 20 Nasal Cannula 2.0 11/23/19 01:17 20 Nasal Cannula 2.0 11/23/19 00:47 20 Nasal Cannula 11/23/19 00:10 20 Nasal Cannula 11/22/19 23:09 99.1 105 20 93/52 (66) 98 Room Air 99.1 11/22/19 22:45 20 Nasal Cannula 2.0 11/22/19 22:15 20 Nasal Cannula 11/22/19 22:07 106 109/58 11/22/19 19:50 Room Air 11/22/19 19:15 99.3 106 18 109/58 (75) 94 Room Air 99.3 11/22/19 18:06 16 Room Air 11/22/19 16:52 16 Room Air 11/22/19 15:28 16 Room Air 11/22/19 15:00 98.2 106 18 102/56 (71) 91 Room Air 98.2 11/22/19 14:38 16 Room Air 11/22/19 14:12 100 Room Air 11/22/19 11:00 97.8 99 16 101/56 (71) 100 Nasal Cannula 2.0 97.8 11/22/19 10:48 16 Room Air 11/22/19 10:14 16 Room Air 11/22/19 10:03 16 Room Air 11/22/19 09:15 16 Room Air 11/22/19 08:00 Room Air 11/22/19 07:00 98.2 54 16 92/61 (71) 92 Room Air 98.2 Laboratory Laboratory Laboratory Tests Test 11/22/19 16:47 11/22/19 21:06 11/23/19 05:00 11/23/19 08:01 Glucose (Fingerstick) 84 mg/dL (70-99) 277 mg/dL (70-99) 217 mg/dL (70-99) White Blood Count 7.8 x10^3/uL (4.0-11.0) Red Blood Count 2.94 x10^6/uL (3.50-5.40) Hemoglobin 9.0 g/dL (12.0-15.5) Hematocrit 27.4 % (36.0-47.0) Mean Corpuscular Volume 93 fL (79-100) Mean Corpuscular Hemoglobin 31 pg (25-35) Mean Corpuscular Hemoglobin Concent 33 g/dL (31-37) Red Cell Distribution Width 19.5 % (11.5-14.5) Platelet Count 262 x10^3/uL (140-400) Neutrophils (%) (Auto) 94 % (31-73) Lymphocytes (%) (Auto) 4 % (24-48) Monocytes (%) (Auto) 2 % (0-9) Eosinophils (%) (Auto) 0 % (0-3) Basophils (%) (Auto) 0 % (0-3) Neutrophils # (Auto) 7.3 x10^3/uL (1.8-7.7) Lymphocytes # (Auto) 0.3 x10^3/uL (1.0-4.8) Monocytes # (Auto) 0.1 x10^3/uL (0.0-1.1) Eosinophils # (Auto) 0.0 x10^3/uL (0.0-0.7) Basophils # (Auto) 0.0 x10^3/uL (0.0-0.2) Sodium Level 136 mmol/L (136-145) Potassium Level 4.3 mmol/L (3.5-5.1) Chloride Level 101 mmol/L (98-107) Carbon Dioxide Level 27 mmol/L (21-32) Anion Gap 8 (6-14) Blood Urea Nitrogen 18 mg/dL (7-20) Creatinine 0.4 mg/dL (0.6-1.0) Estimated GFR (Cockcroft-Gault) 171.1 BUN/Creatinine Ratio 45 (6-20) Glucose Level 291 mg/dL (70-99) Calcium Level 7.9 mg/dL (8.5-10.1) Total Bilirubin 0.8 mg/dL (0.2-1.0) Aspartate Amino Transf (AST/SGOT) 43 U/L (15-37) Alanine Aminotransferase (ALT/SGPT) 106 U/L (14-59) Alkaline Phosphatase 67 U/L (46-116) Total Protein 5.3 g/dL (6.4-8.2) Albumin 2.6 g/dL (3.4-5.0) Albumin/Globulin Ratio 1.0 (1.0-1.7) Test 11/23/19 11:37 Glucose (Fingerstick) 287 mg/dL (70-99) Microbiology 11/10/19 Urine Culture - Final, Complete 11/10/19 Urine Culture Result 1 (СВЕТЛАНА) - Final, Complete 11/10/19 Antimicrobic Susceptibility - Final, Complete 11/01/19 Blood Culture - Final, Complete NO GROWTH AFTER 5 DAYS Medication Medications Current Medications Apixaban (Eliquis) 2.5 mg BID PO Last administered on 11/23/19at 09:46; Start 11/23/19 at 09:00 Comment Review of Relevant I have reviewed the following items mustapha (where applicable) has been applied. JOHNATHON OGLESBY MD Nov 23, 2019 13:28
[2019-11-23 15:00] VITALS: BP 125/77
--- NOTE | 2019-11-23 16:08 | NUR ---
SW following pt. Insurance has approved rehab. Orders faxed to OP rehab and SW arranged transport via [facility] at [phone]. RN notified.
--- NOTE | 2019-11-23 16:31 | NUR ---
attempted to call and give report at this time they stated they were busy and unable to take my call at this time and they would call me back. left my name and phone number
--- NOTE | 2019-11-23 16:44 | NUR ---
pt refusing iv bag of dextrose at this time. states she just wants apple juice and jello
--- NOTE | 2019-11-23 17:39 | PDOC3 ---
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/05 Leukocytosis on decadron - has gotten 44 iV doses, shifted to PO decadron 11.17 Acute encephalopathy -POA, resolved Headaches stable DM2 uncontrolled on decadron IV Chronic Back Pain and Sciatica Rt Leg Acute blood loss anemia Brain Mass Hx PE Hypotension resolved Epistaxis resolved GENERALIZED WEAKNESS - REhab on dc Urnary retention off bateman 11/17 MULTIPLE DRUG RESISTANT ESBL UTI -d/c to rehab pending insurance -taper decadron to off over four weeks -oxycodone for po pain control -unless acute changes, no new post-op imaging prior to d/c -d/c edd in approx 1 week, for f/u with NS 11/22/19 STILL HAS HEADACHE, fatigues easily IMPAIRED FUNCTIONAL MOBILITY, MODERATE-SEVERE Discharge Recommendations * Acute Rehab facility * * * D/C PLANNING 35 MIN History of Present Illness History of Present Illness BS still high despite my inc insulin coverage NEeded to be straight cath'd at least 3x - had bateman for about a week MDR ESBL UTI< was on rocephin for longest time NOW on PO x 2 doses q48 hrs per Dr Mitchel suero STable headache Slated for Rehab tuesday CAN TAKE OUT RT CENTRAL LINE ON TUESDAY PRIOR TO DC EARLIER ENTRY transferred out of ICU 11.14 PAssed swallow (reg diet thin liq) ABle to move RT leg! 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 PLAN; REHAb tuesday TAKE OUT CENTRAL LINE BEFORE DC MAke sure ABX PO by ID FOR MDR ESBL UTI before dc if needed NO bateman for now, I THINK SHE is regaining her bladder muscle back Further inc lispro to 30 TID with emals from 20 TID COnt long acting 40 BID COnt PO decadron 4 QID on dc FF UP NS as instructed by service Vitals Vitals Vital Signs Date Time Temp Pulse Resp B/P (MAP) Pulse Ox O2 Delivery O2 Flow Rate FiO2 11/23/19 10:26 Room Air 11/23/19 07:00 98.6 77 18 105/59 (74) 100 98.6 11/23/19 05:41 2.0 Physical Exam Physical Exam GENERAL: Propped up in bed, alert, in NAD HEENT: Oral mucosa moist. No oropharyngeal lesion. Scalp incision well approximated w/ stables. no drainage or no surrounding redness NECK: Supple. LUNGS: Clear bilaterally HEART: S1, S2. No gallops or murmurs. ABDOMEN: Obese, soft, nontender, bowel sounds active. Ecchymosis present EXTREMITIES: Right lower extremity edema. No cyanosis. SKIN: Warm and dry. No rash CO TEACHER: Alert and oriented. Right-sided weakness, unable to move arm or leg; able to distinguish cold sensation. RIJ clean General: Alert, Oriented X3, Cooperative, No acute distress, Other (extremely weak and depressed) Heart: Regular rate, Normal S1, Normal S2 Lungs: Wheezing Abdomen: Normal bowel sounds, Soft, Other (eechymosis improving) Extremities: No clubbing, No cyanosis, No edema, Normal pulses, No tenderness/swelling Skin: No rashes, No breakdown, Other (Ecchymosis on right abdomen) FINAL DIAGNOSIS Problems Medical Problems: (1) Abdominal hemorrhage Status: Acute (2) Generalized weakness Status: Acute (3) Lactic acidosis Status: Acute (4) Leukocytosis Status: Acute Brief Hospital Course Ms. Alejo is a 49 old [sex] who presented with [ BRAIN MASS, LEUKEMIA] CONDITION AT DISCHARGE: Improved Discharge Medications Current Medications Sodium Chloride 500 ml @ 500 mls/hr 1X ONCE IV Last administered on 11/01/19at 13:00; Start 11/01/19 at 13:00; Stop 11/01/19 at 13:59; Status DC Ondansetron HCl (Zofran) 4 mg 1X ONCE IV Last administered on 11/01/19at 13:26; Start 11/01/19 at 13:00; Stop 11/01/19 at 13:13; Status DC Hydromorphone HCl (Dilaudid) 0.5 mg 1X STAT IVP Last administered on 11/01/19at 13:26; Start 11/01/19 at 12:59; Stop 11/01/19 at 13:13; Status DC Iohexol (Omnipaque 300 Mg/ml) 75 ml 1X ONCE IV Last administered on 11/01/19at 14:08; Start 11/01/19 at 13:45; Stop 11/01/19 at 13:46; Status DC Info (CONTRAST GIVEN -- Rx MONITORING) 1 each PRN DAILY PRN MC SEE COMMENTS; Start 11/01/19 at 14:00; Stop 11/03/19 at 13:59; Status DC Hydromorphone HCl (Dilaudid) 0.5 mg 1X STAT IVP Last administered on 11/01/19at 16:53; Start 11/01/19 at 16:21; Stop 11/01/19 at 16:23; Status DC Sodium Chloride 1,000 ml @ 1,000 mls/hr 1X ONCE IV Last administered on 11/01/19at 16:30; Start 11/01/19 at 16:30; Stop 11/01/19 at 17:29; Status DC Sodium Chloride 500 ml @ 500 mls/hr 1X ONCE IV Last administered on 11/01/19at 16:30; Start 11/01/19 at 16:30; Stop 11/01/19 at 17:29; Status DC Albuterol Sulfate (Ventolin Neb Soln) 2.5 mg PRN Q6HRS PRN INH SHORTNESS OF BREATH; Start 11/01/19 at 16:30; Status Cancel Alprazolam (Xanax) 0.25 mg PRN TID PRN PO anxiety; Start 11/01/19 at 16:30; Stop 11/01/19 at 17:11; Status DC Amlodipine Besylate (Norvasc) 5 mg DAILY PO Last administered on 11/16/19at 08:47; Start 11/02/19 at 09:00; Stop 11/18/19 at 09:18; Status DC Cyclosporine (Restasis) 1 drop BID OU Last administered on 11/23/19at 09:47; Start 11/01/19 at 21:00 Fluticasone Propionate (Flonase) 2 spray DAILY NS Last administered on 11/23/19 09:47; Start 11/02/19 at 09:00 Lactobacillus Rhamnosus (Culturelle) 1 cap BID PO Last administered on 11/09/19 08:28; Start 11/01/19 at 21:00; Stop 11/09/19 at 16:57; Status DC Lidocaine (Lidoderm) 1 patch DAILY TP ; Start 11/02/19 at 09:00; Stop 11/01/19 at 20:34; Status DC Metoprolol Succinate (Toprol Xl) 100 mg HS PO Last administered on 11/17/19 21:05; Start 11/01/19 at 21:00; Stop 11/18/19 at 09:18; Status DC Nystatin (Nystop) 1 raza BID TP Last administered on 11/23/19 09:45; Start 11/01/19 at 21:00 Pantoprazole Sodium (Protonix) 40 mg DAILYAC PO Last administered on 11/09/19 08:28; Start 11/02/19 at 07:30; Stop 11/09/19 at 16:54; Status DC Senna/Docusate Sodium (Senna Plus) 1 tab BID PO Last administered on 11/18/19 09:37; Start 11/01/19 at 21:00 Sucralfate (Carafate) 1 gm TIDAC PO Last administered on 11/23/19 16:43; Start 11/01/19 at 17:30 Tramadol HCl (Ultram) 50 mg PRN Q8HRS PRN PO PAIN; Start 11/01/19 at 16:30; Stop 11/01/19 at 19:43; Status DC Insulin Glargine (Lantus Syringe) 30 unit QHS SQ Last administered on 11/06/19at 21:16; Start 11/01/19 at 21:00; Stop 11/07/19 at 15:56; Status DC Ondansetron HCl (Zofran Odt) 8 mg PRN Q8HRS PRN PO NAUSEA/VOMITING Last administered on 11/17/19at 12:12; Start 11/01/19 at 17:15 Polyethylene Glycol (miraLAX PACKET) 17 gm PRN DAILY PRN PO CONSTIPATION, 1ST CHOICE Last administered on 11/17/19 08:30; Start 11/01/19 at 17:11 Atorvastatin Calcium (Lipitor) 80 mg QHS PO Last administered on 11/22/19 22:07; Start 11/01/19 at 21:00 Insulin Human Lispro (HumaLOG) 0-9 UNITS TIDAC SQ Last administered on 11/07/19at 12:20; Start 11/01/19 at 16:30; Stop 11/07/19 at 15:56; Status DC Dextrose (Dextrose 50%-Water Syringe) 12.5 gm PRN Q15MIN PRN IV SEE COMMENTS; Start 11/01/19 at 16:30; Stop 11/12/19 at 15:36; Status DC Ondansetron HCl (Zofran) 4 mg PRN Q8HRS PRN IV NAUSEA/VOMITING; Start 11/01/19 at 16:30; Stop 11/02/19 at 16:29; Status DC Alprazolam (Xanax) 0.25 mg PRN TID PRN PO anxiety Last administered on 11/23/19at 16:43; Start 11/01/19 at 17:11 Miscellaneous (Lidoderm Patch Removal) 1 ea QHS MC ; Start 11/01/19 at 21:00; Stop 11/01/19 at 20:34; Status DC Ceftriaxone Sodium (Rocephin) 1 gm QHS IVP Last administered on 11/15/19at 21:26; Start 11/01/19 at 18:45; Stop 11/16/19 at 08:52; Status DC Tramadol HCl (Ultram) 50 mg PRN Q8HRS PRN PO MILD PAIN 1-3 Last administered on 11/15/19at 17:56; Start 11/01/19 at 19:45 Hydromorphone HCl (Dilaudid) 1 mg PRN Q4HRS PRN IV SEVERE PAIN Last administered on 11/23/19 14:07; Start 11/01/19 at 20:15 Lidocaine (Lidoderm) 1 patch QHS TP Last administered on 11/18/19at 20:49; Start 11/01/19 at 21:00 Miscellaneous (Lidoderm Patch Removal) 1 ea DAILY MC Last administered on 11/22/19at 09:00; Start 11/02/19 at 09:00 Albumin Human 500 ml @ 125 mls/hr 1X ONCE IV ; Start 11/02/19 at 02:00; Stop 11/02/19 at 05:59; Status Cancel Acetaminophen (Tylenol) 650 mg 1X PRN PRN PO PRE-TRANSFUSION; Start 11/02/19 at 06:45; Stop 11/03/19 at 14:16; Status DC Diphenhydramine HCl (Benadryl Oral Elixir) 12.5 mg 1X PRN PRN PO PRE- TRANSFUSION; Start 11/02/19 at 06:45; Stop 11/03/19 at 14:16; Status DC Diphenhydramine HCl (Benadryl) 25 mg PRN 1X PRN PO PRE-TRANSFUSION; Start 11/02/19 at 06:45; Stop 11/03/19 at 14:16; Status DC Lactulose (LACTULOSE 300ML for RECTAL) 200 gm Q6HRS MN Last administered on 11/02/19at 18:00; Start 11/02/19 at 18:00; Stop 11/04/19 at 14:44; Status DC Sodium Chloride 1,000 ml @ 100 mls/hr Q10H IV Last administered on 11/13/19at 15:30; Start 11/02/19 at 12:00; Stop 11/14/19 at 11:28; Status DC Lactulose (Lactulose) 20 gm PRN DAILY PRN PO CONSTIPATION, 2ND CHOICE; Start 11/04/19 at 14:45 Oxycodone HCl (Roxicodone) 5 mg PRN Q6HRS PRN PO MODERATE TO SEVERE PAIN Last administered on 11/23/19at 11:49; Start 11/04/19 at 14:45 Lidocaine HCl (Buffered Lidocaine 1%) 3 ml STK-MED ONCE .ROUTE ; Start 11/05/19 at 08:13; Stop 11/05/19 at 08:13; Status DC Lidocaine HCl (Buffered Lidocaine 1%) 3 ml STK-MED ONCE .ROUTE ; Start 11/05/19 at 08:14; Stop 11/05/19 at 08:14; Status DC Midazolam HCl (Versed) 2 mg STK-MED ONCE .ROUTE ; Start 11/05/19 at 08:40; Stop 11/05/19 at 08:40; Status DC Fentanyl Citrate (Fentanyl 2ml Vial) 100 mcg STK-MED ONCE .ROUTE ; Start 11/05/19 at 08:40; Stop 11/05/19 at 08:41; Status DC Lidocaine HCl (Buffered Lidocaine 1%) 3 ml 1X ONCE IJ Last administered on 11/05/19at 08:45; Start 11/05/19 at 08:45; Stop 11/05/19 at 08:50; Status DC Midazolam HCl (Versed) 2 mg 1X ONCE IV Last administered on 11/05/19at 08:45; Start 11/05/19 at 08:45; Stop 11/05/19 at 08:50; Status DC Fentanyl Citrate (Fentanyl 2ml Vial) 100 mcg 1X ONCE IV Last administered on 11/05/19at 08:45; Start 11/05/19 at 08:45; Stop 11/05/19 at 08:50; Status DC Dexamethasone Sodium Phosphate (Decadron) 4 mg Q6HRS IVP Last administered on 11/17/19at 06:03; Start 11/06/19 at 09:00; Stop 11/17/19 at 08:53; Status DC Insulin Glargine (Lantus Syringe) 40 unit QHS SQ Last administered on 11/15/19at 21:00; Start 11/07/19 at 21:00; Stop 11/16/19 at 08:53; Status DC Insulin Human Lispro (HumaLOG) 10 units TIDAC SQ Last administered on 11/14/19at 17:31; Start 11/07/19 at 16:30; Stop 11/15/19 at 08:16; Status DC Insulin Human Lispro (HumaLOG) 0-9 UNITS TIDWMEALS SQ Last administered on 11/11/19at 17:13; Start 11/07/19 at 17:00; Stop 11/12/19 at 15:37; Status DC Insulin Human Lispro (HumaLOG) 19 units 1X ONCE SQ Last administered on 11/09/19at 12:41; Start 11/09/19 at 12:15; Stop 11/09/19 at 12:16; Status DC Insulin Human Lispro (HumaLOG) 5 units 1X ONCE SQ Last administered on 11/09/19at 13:52; Start 11/09/19 at 13:30; Stop 11/09/19 at 13:31; Status DC Non-Formulary Medication 1 ea DAILY PO ; Start 11/09/19 at 16:30; Status Cancel Ondansetron HCl (Zofran) 4 mg PRN Q6HRS PRN IV NAUSEA/VOMITING; Start 11/12/19 at 07:00; Stop 11/12/19 at 19:56; Status DC Fentanyl Citrate (Fentanyl 2ml Vial) 25 mcg PRN Q5MIN PRN IV MILD PAIN 1-3; Start 11/12/19 at 07:00; Stop 11/12/19 at 19:56; Status DC Fentanyl Citrate (Fentanyl 2ml Vial) 50 mcg PRN Q5MIN PRN IV MODERATE TO SEVERE PAIN; Start 11/12/19 at 07:00; Stop 11/12/19 at 19:56; Status DC Morphine Sulfate (Morphine Sulfate) 1 mg PRN Q10MIN PRN IV SEVERE PAIN 7-10; Start 11/12/19 at 07:00; Stop 11/09/19 at 17:30; Status DC Ringer's Solution 1,000 ml @ 30 mls/hr Q24H IV Last administered on 11/12/19at 10:00; Start 11/12/19 at 07:00; Stop 11/12/19 at 18:59; Status DC Lidocaine HCl (Xylocaine-Mpf 1% 2ml Vial) 2 ml PRN 1X PRN ID PRIOR TO IV START; Start 11/12/19 at 07:00; Stop 11/12/19 at 19:56; Status DC Hydromorphone HCl (Dilaudid) 0.5 mg PRN Q10MIN PRN IV SEV PAIN, Second choice; Start 11/12/19 at 07:00; Stop 11/12/19 at 19:56; Status DC Prochlorperazine Edisylate (Compazine) 5 mg PACU PRN PRN IV NAUSEA, MRX1; Start 11/12/19 at 07:00; Stop 11/12/19 at 19:56; Status DC Pantoprazole Sodium (Protonix) 40 mg DAILYAC PO Last administered on 11/14/19at 08:19; Start 11/09/19 at 18:30; Stop 11/15/19 at 09:25; Status DC Levetiracetam (Keppra) 500 mg BID PO Last administered on 11/23/19at 09:45; Start 11/09/19 at 21:00 Non-Formulary Medication 1 ea DAILY PO Last administered on 11/23/19at 09:45; Start 11/12/19 at 09:00 Insulin Human Lispro (HumaLOG) 8 units 1X ONCE SQ Last administered on 11/10/19at 12:32; Start 11/10/19 at 12:15; Stop 11/10/19 at 12:16; Status DC Propofol 20 ml @ As Directed STK-MED ONCE IV ; Start 11/12/19 at 07:48; Stop 11/12/19 at 07:48; Status DC Dexamethasone Sodium Phosphate (Decadron) 20 mg STK-MED ONCE .ROUTE ; Start 11/12/19 at 07:48; Stop 11/12/19 at 07:48; Status DC Lidocaine HCl (Lidocaine Pf 2% Vial) 5 ml STK-MED ONCE .ROUTE ; Start 11/12/19 at 07:48; Stop 11/12/19 at 07:48; Status DC Ondansetron HCl (Zofran) 4 mg STK-MED ONCE .ROUTE ; Start 11/12/19 at 07:48; Stop 11/12/19 at 07:48; Status DC Phenylephrine HCl (Tony-Synephrine Inj) 10 mg STK-MED ONCE .ROUTE ; Start 11/12/19 at 07:48; Stop 11/12/19 at 07:48; Status DC Propofol 50 ml @ As Directed STK-MED ONCE IV ; Start 11/12/19 at 07:48; Stop 11/12/19 at 07:48; Status DC Rocuronium [place] (Zemuron) 50 mg STK-MED ONCE .ROUTE ; Start 11/12/19 at 07:48; Stop 11/12/19 at 07:48; Status DC Remifentanil HCl (Ultiva) 2 mg STK-MED ONCE IV ; Start 11/12/19 at 07:48; Stop 11/12/19 at 07:49; Status DC Sodium Chloride (SODIUM CHLORIDE 20ml) 20 ml STK-MED ONCE IJ ; Start 11/12/19 at 07:49; Stop 11/12/19 at 07:49; Status DC Multi-Ingred Cream/Lotion/Oil/ Oint (Artificial Tears Eye Ointment) 7 raza STK- MED ONCE .ROUTE ; Start 11/12/19 at 07:49; Stop 11/12/19 at 07:49; Status DC Bacitracin 59967 unit/Sodium Chloride 1,000 ml @ 1,000 mls/hr 1X ONCE IRR Last administered on 11/12/19 11:26; Start 11/12/19 at 07:57; Stop 11/12/19 at 08:56; Status DC Sodium Chloride (SODIUM CHLORIDE 20ml) 20 ml STK-MED ONCE IJ ; Start 11/12/19 at 07:57; Stop 11/12/19 at 07:57; Status DC Gelatin (Gelfoam Size 100) 1 each STK-MED ONCE .ROUTE Last administered on 11/12/19 11:26; Start 11/12/19 at 07:59; Stop 11/12/19 at 07:59; Status DC Cellulose (Surgicel Hemostat 4x8) 1 each STK-MED ONCE .ROUTE Last administered on 11/12/19 12:01; Start 11/12/19 at 07:59; Stop 11/12/19 at 08:00; Status DC Lidocaine/ Epinephrine (LIDOCAINE 1%-EPI 1:100,000 Multi-Dose) 20 ml STK-MED ONCE .ROUTE Last administered on 11/12/19 11:26; Start 11/12/19 at 07:59; Stop 11/12/19 at 08:00; Status DC Thrombin 20,000 unit STK-MED ONCE TP Last administered on 11/12/19 11:26; Start 11/12/19 at 08:00; Stop 11/12/19 at 08:00; Status DC Bacitracin (Bacitracin Zinc Oint Pkt) 1 pkt STK-MED ONCE TP ; Start 11/12/19 at 08:00; Stop 11/12/19 at 08:00; Status DC Propofol 100 ml @ As Directed STK-MED ONCE IV ; Start 11/12/19 at 08:02; Stop 11/12/19 at 08:02; Status DC Insulin Human Lispro (HumaLOG) 11 units 1X ONCE SQ Last administered on 11/12/19at 08:15; Start 11/12/19 at 08:15; Stop 11/12/19 at 08:16; Status DC Gadoterate Meglumine (Dotarem) 24.8 ml 1X ONCE IVP Last administered on 11/12at 08:15; Start 11/12/19 at 08:15; Stop 11/12/19 at 08:16; Status DC Insulin Human Regular 100 unit/ Sodium Chloride 101 ml @ 12.484 mls/ hr ONCE ONCE IV ; Start 11/12/19 at 08:15; Stop 11/12/19 at 16:20; Status DC Desflurane (Suprane) 90 ml STK-MED ONCE IH ; Start 11/12/19 at 08:11; Stop 11/12/19 at 08:11; Status DC Fentanyl Citrate (Fentanyl 2ml Vial) 100 mcg STK-MED ONCE .ROUTE ; Start 11/12/19 at 08:20; Stop 11/12/19 at 08:20; Status DC Midazolam HCl (Versed) 2 mg STK-MED ONCE .ROUTE ; Start 11/12/19 at 08:20; Stop 11/12/19 at 08:20; Status DC Rocuronium [place] (Zemuron) 50 mg STK-MED ONCE .ROUTE ; Start 11/12/19 at 09:11; Stop 11/12/19 at 09:12; Status DC Mannitol (Mannitol) 12.5 g STK-MED ONCE .ROUTE ; Start 11/12/19 at 09:22; Stop 11/12/19 at 09:23; Status DC Propofol 100 ml @ As Directed STK-MED ONCE IV ; Start 11/12/19 at 09:22; Stop 11/12/19 at 09:23; Status DC Lidocaine HCl (Xylocaine-Mpf 1% 2ml Vial) 2 ml STK-MED ONCE .ROUTE ; Start 11/12/19 at 09:24; Stop 11/12/19 at 09:24; Status DC Cefazolin Sodium 3 gm/Dextrose 100 ml @ 200 mls/hr 1X PREOP ONCE IV Last administered on 11/12/19at 10:53; Start 11/12/19 at 10:30; Stop 11/12/19 at 10:59; Status DC Gelatin (Gelfoam Size 12-7mm) 1 each STK-MED ONCE .ROUTE Last administered on 11/12/19at 12:03; Start 11/12/19 at 11:59; Stop 11/12/19 at 12:01; Status DC Thrombin 20,000 unit STK-MED ONCE TP Last administered on 11/12/19at 12:04; Start 11/12/19 at 12:00; Stop 11/12/19 at 12:01; Status DC Gelatin (Gelfoam Size 100) 1 each STK-MED ONCE .ROUTE Last administered on 11/12/19at 12:25; Start 11/12/19 at 12:26; Stop 11/12/19 at 12:26; Status DC Gelatin (Gelfoam Size 12-7mm) 1 each STK-MED ONCE .ROUTE Last administered on 11/12/19at 13:35; Start 11/12/19 at 13:32; Stop 11/12/19 at 13:33; Status DC Thrombin 20,000 unit STK-MED ONCE TP Last administered on 11/12/19at 13:35; Start 11/12/19 at 13:32; Stop 11/12/19 at 13:33; Status DC Gelatin (Gelfoam Size 12-7mm) 1 each STK-MED ONCE .ROUTE Last administered on 11/12/19at 13:55; Start 11/12/19 at 13:55; Stop 11/12/19 at 13:55; Status DC Gelatin (Gelfoam Size 12-7mm) 1 each STK-MED ONCE .ROUTE Last administered on 11/12/19at 13:59; Start 11/12/19 at 13:59; Stop 11/12/19 at 13:59; Status DC Labetalol HCl (Normodyne Iv Push) 5 mg PRN Q15MIN PRN IVP HYPERTENSION; Start 11/12/19 at 15:15 Nicardipine HCl 50 mg/Sodium Chloride 250 ml @ 25 mls/hr TITRATE PRN IV SBP 90-140; Start 11/12/19 at 15:15; Stop 11/15/19 at 08:16; Status DC Hydralazine HCl (Apresoline Inj) 5 mg PRN Q6HRS PRN IVP TO KEEP SBP<140mmHg; Start 11/12/19 at 15:15 Al Hydroxide/Mg Hydroxide (Mylanta Plus Xs) 30 ml PRN Q3HRS PRN PO HEARTBURN / GAS; Start 11/12/19 at 15:15 Calcium Carbonate/ Glycine (Tums) 500 mg PRN Q3HRS PRN PO INDIGESTION Last administered on 11/20/19at 16:15; Start 11/12/19 at 15:15 Diphenhydramine HCl (Benadryl) 25 mg PRN Q6HRS PRN PO ITCHING; Start 11/12/19 at 15:15 Diphenhydramine HCl (Benadryl) 25 mg PRN Q6HRS PRN IV ITCHING; Start 11/12/19 at 15:15 Sodium Chloride (Normal Saline Flush) 3 ml QSHIFT PRN IV AFTER MEDS AND BLOOD DRAWS; Start 11/12/19 at 15:15 Insulin Human Lispro (HumaLOG) 0-5 UNITS TIDWMEALS SQ Last administered on 11/17/19at 08:39; Start 11/12/19 at 17:00; Stop 11/17/19 at 08:54; Status DC Dextrose (Dextrose 50%-Water Syringe) 12.5 gm PRN Q15MIN PRN IV SEE COMMENTS; Start 11/12/19 at 15:15 Dextrose (Iv Dextrose 5%) 250 ml PRN Q15MIN PRN IV SEE COMMENTS; Start 11/12/19 at 15:15; Stop 11/18/19 at 08:17; Status DC Hydromorphone HCl (Dilaudid) 0.2 mg PRN Q1HR PRN IV MODERATE PAIN Last administered on 11/19/19at 03:58; Start 11/12/19 at 15:15 Insulin Human Lispro (HumaLOG VIAL for OP,RR ONLY) 0-10 units PRN Q1HR PRN SQ PER PROTOCOL Last administered on 11/12/19at 15:50; Start 11/12/19 at 16:00; Stop 11/12/19 at 19:54; Status DC Insulin Human Lispro (HumaLOG VIAL for OP,RR ONLY) 4 unit 1X ONCE SQ ; Start 1 01/13/19 at 16:45; Stop 11/12/19 at 16:46; Status DC Ferrous Sulfate (Iron Oral Solution) 300 mg QD PO Last administered on 11/23/19at 09:47; Start 11/13/19 at 10:00 Gadoterate Meglumine (Dotarem) 10 ml 1X ONCE IVP Last administered on 11/13/19at 15:00; Start 11/13/19 at 14:45; Stop 11/13/19 at 14:48; Status DC Gadoterate Meglumine (Dotarem) 15 ml 1X ONCE IVP Last administered on 11/13/19at 15:00; Start 11/13/19 at 14:45; Stop 11/13/19 at 14:48; Status DC Insulin Human Lispro (HumaLOG) 15 units TIDAC SQ Last administered on 11/15/19at 17:08; Start 11/15/19 at 08:15; Stop 11/16/19 at 08:53; Status DC Insulin Glargine (Lantus Syringe) 20 unit DAILY SQ Last administered on 11/15/19at 09:20; Start 11/15/19 at 09:00; Stop 11/16/19 at 08:53; Status DC Enoxaparin Sodium (Lovenox 40mg Syringe) 40 mg Q12H SQ Last administered on 11/15/19at 23:36; Start 11/15/19 at 10:00; Stop 11/16/19 at 07:50; Status DC Enoxaparin Sodium (Lovenox 40mg Syringe) 40 mg DAILY SQ Last administered on 11/22/19at 09:12; Start 11/16/19 at 09:00; Stop 11/22/19 at 10:06; Status DC Meropenem 1 gm/ Sodium Chloride 100 ml @ 200 mls/hr Q8HRS IV ; Start 11/16/19 at 14:00; Stop 11/16/19 at 12:31; Status DC Insulin Glargine (Lantus Syringe) 40 unit BID SQ Last administered on 11/23/19at 09:57; Start 11/16/19 at 09:00 Insulin Human Lispro (HumaLOG) 20 units TIDAC SQ Last administered on 11/18/19at 08:35; Start 11/16/19 at 11:30; Stop 11/18/19 at 09:19; Status DC Insulin Glargine (Lantus Syringe) 20 unit 1X ONCE SQ Last administered on 11/16/19at 09:48; Start 11/16/19 at 09:15; Stop 11/16/19 at 09:16; Status DC Fosfomycin Tromethamine (Monurol) 3 gm 1X ONCE PO Last administered on 11/16/19at 12:49; Start 11/16/19 at 12:30; Stop 11/16/19 at 12:33; Status DC Fosfomycin Tromethamine (Monurol) 3 gm 1X ONCE PO Last administered on 11/18/19at 09:57; Start 11/18/19 at 09:00; Stop 11/18/19 at 09:01; Status DC Dexamethasone (Decadron) 4 mg QID PO Last administered on 11/19/19at 20:55; Start 11/17/19 at 13:00; Stop 11/20/19 at 08:47; Status DC Insulin Human Lispro (HumaLOG) 0-9 UNITS TIDWMEALS SQ Last administered on 11/23/19at 11:48; Start 11/17/19 at 12:00 Dextrose (Dextrose 50%-Water Syringe) 12.5 gm PRN Q15MIN PRN IV SEE COMMENTS; Start 11/17/19 at 09:00; Status UNV Dextrose (Iv Dextrose 5%) 250 ml PRN Q15MIN PRN IV SEE COMMENTS; Start 11/17/19 at 09:00 Metoprolol Succinate (Toprol Xl) 50 mg HS PO Last administered on 11/22/19at 22:07; Start 11/18/19 at 21:00 Insulin Human Lispro (HumaLOG) 30 units TIDAC SQ Last administered on 11/23/19 11:48; Start 11/18/19 at 09:30 Dexamethasone (Decadron) 4 mg BID PO Last administered on 11/23/19 09:46; Start 11/20/19 at 09:00 Phenyleph/Shark Oil/Min Oil/Petrol (Preparation H) 1 raza PRN QID PRN RC RECTAL PAIN Last administered on 11/21/19 11:01; Start 11/21/19 at 10:15 Apixaban (Eliquis) 2.5 mg BID PO Last administered on 11/23/19 09:46; Start 11/23/19 at 09:00 Active Scripts Active Sprycel (Dasatinib) 100 Mg Tablet 100 Mg PO BID 30 Days Tramadol Hcl 50 Mg Tablet 50 Mg PO PRN Q8HRS PRN Novolog Flexpen (Insulin Aspart) 100 Unit/1 Ml Insuln.pen 30 Unit SQ TID 30 Days Lantus Solostar (Insulin Glargine,Hum.rec.anlog) 100 Unit/1 Ml Insuln.pen 40 Unit SQ BID Decadron (Dexamethasone) 4 Mg Tablet 1 Tab PO BID 3 Days Culturelle (Lactobacillus Rhamnosus Gg) 1 Each Cap.sprink 1 Cap PO BID 30 Days Reported Roxicodone (Oxycodone HCl) 5 Mg Tablet 1 Tab PO PRN Q6HRS PRN Ferrous Sulfate 325 Mg Tablet 1 Tab PO DAILY Keppra (Levetiracetam) 500 Mg Tablet 1 Tab PO BID 30 Days Cymbalta (Duloxetine Hcl) 60 Mg Capsule.dr 1 Cap PO BID Lyrica (Pregabalin) 150 Mg Capsule 1 Cap PO BID Crestor (Rosuvastatin Calcium) 40 Mg Tablet 0.5 Tab PO DAILY Polyethylene Glycol 3350 2,500 Gm Powder 17 Gm PO PRN PRN Xanax (Alprazolam) 1 Mg Tablet 1 Tab PO TID Restasis (Cyclosporine) 1 Each Droperette 1 Drop EACHEYE BID Proair Hfa Inhaler (Albuterol Sulfate) 8.5 Gm Hfa.aer.ad 1 Puff INH PRN Q6HRS PRN Ondansetron Hcl 4 Mg Tablet 2 Tab PO PRN Q8HRS PRN Nystatin 15 Gm Powder 1 [place] TP BID Fluticasone Propionate Nasal [place] (Fluticasone Propionate) 16 Gm [place].susp 2 [place] NS DAILY Senna-Docusate Sodium Tablet (Sennosides/Docusate Sodium) 1 Each Tablet 1 Each PO BID LAST DOSE THIS AM NEXT DOSE TONIGHT Protonix (Pantoprazole Sodium) 40 Mg Tablet. 40 Mg PO DAILY LST DOSE THIS AM NEXT DOSE TOMORROW AM Carafate (Sucralfate) 1 Gm Tablet 1 Tab PO TID Meds not given this hospital admission. May resume home medications as approved by Physician. MAY TAKE WHEN AVAILABLE Metoprolol Succinate ( Xl ) (Metoprolol Succinate) 100 Mg Tab.er.24h 50 Mg PO HS Vital Signs Vital Signs Date Time Temp Pulse Resp B/P (MAP) Pulse Ox O2 Delivery O2 Flow Rate FiO2 11/23/19 15:00 98.7 101 18 125/77 (93) 99 Room Air 98.7 11/23/19 05:41 2.0 Labs Laboratory Tests Test 11/21/19 21:01 11/22/19 07:36 11/22/19 11:06 11/22/19 16:47 Glucose (Fingerstick) 196 mg/dL (70-99) 145 mg/dL (70-99) 173 mg/dL (70-99) 84 mg/dL (70-99) Test 11/22/19 21:06 11/23/19 05:00 11/23/19 08:01 11/23/19 11:37 Glucose (Fingerstick) 277 mg/dL (70-99) 217 mg/dL (70-99) 287 mg/dL (70-99) White Blood Count 7.8 x10^3/uL (4.0-11.0) Red Blood Count 2.94 x10^6/uL (3.50-5.40) Hemoglobin 9.0 g/dL (12.0-15.5) Hematocrit 27.4 % (36.0-47.0) Mean Corpuscular Volume 93 fL (79-100) Mean Corpuscular Hemoglobin 31 pg (25-35) Mean Corpuscular Hemoglobin Concent 33 g/dL (31-37) Red Cell Distribution Width 19.5 % (11.5-14.5) Platelet Count 262 x10^3/uL (140-400) Neutrophils (%) (Auto) 94 % (31-73) Lymphocytes (%) (Auto) 4 % (24-48) Monocytes (%) (Auto) 2 % (0-9) Eosinophils (%) (Auto) 0 % (0-3) Basophils (%) (Auto) 0 % (0-3) Neutrophils # (Auto) 7.3 x10^3/uL (1.8-7.7) Lymphocytes # (Auto) 0.3 x10^3/uL (1.0-4.8) Monocytes # (Auto) 0.1 x10^3/uL (0.0-1.1) Eosinophils # (Auto) 0.0 x10^3/uL (0.0-0.7) Basophils # (Auto) 0.0 x10^3/uL (0.0-0.2) Sodium Level 136 mmol/L (136-145) Potassium Level 4.3 mmol/L (3.5-5.1) Chloride Level 101 mmol/L (98-107) Carbon Dioxide Level 27 mmol/L (21-32) Anion Gap 8 (6-14) Blood Urea Nitrogen 18 mg/dL (7-20) Creatinine 0.4 mg/dL (0.6-1.0) Estimated GFR (Cockcroft-Gault) 171.1 BUN/Creatinine Ratio 45 (6-20) Glucose Level 291 mg/dL (70-99) Calcium Level 7.9 mg/dL (8.5-10.1) Total Bilirubin 0.8 mg/dL (0.2-1.0) Aspartate Amino Transf (AST/SGOT) 43 U/L (15-37) Alanine Aminotransferase (ALT/SGPT) 106 U/L (14-59) Alkaline Phosphatase 67 U/L (46-116) Total Protein 5.3 g/dL (6.4-8.2) Albumin 2.6 g/dL (3.4-5.0) Albumin/Globulin Ratio 1.0 (1.0-1.7) Test 11/23/19 16:39 11/23/19 17:13 Glucose (Fingerstick) 62 mg/dL (70-99) 138 mg/dL (70-99) Laboratory Tests Test 11/22/19 21:06 11/23/19 05:00 11/23/19 08:01 11/23/19 11:37 Glucose (Fingerstick) 277 mg/dL (70-99) 217 mg/dL (70-99) 287 mg/dL (70-99) White Blood Count 7.8 x10^3/uL (4.0-11.0) Red Blood Count 2.94 x10^6/uL (3.50-5.40) Hemoglobin 9.0 g/dL (12.0-15.5) Hematocrit 27.4 % (36.0-47.0) Mean Corpuscular Volume 93 fL (79-100) Mean Corpuscular Hemoglobin 31 pg (25-35) Mean Corpuscular Hemoglobin Concent 33 g/dL (31-37) Red Cell Distribution Width 19.5 % (11.5-14.5) Platelet Count 262 x10^3/uL (140-400) Neutrophils (%) (Auto) 94 % (31-73) Lymphocytes (%) (Auto) 4 % (24-48) Monocytes (%) (Auto) 2 % (0-9) Eosinophils (%) (Auto) 0 % (0-3) Basophils (%) (Auto) 0 % (0-3) Neutrophils # (Auto) 7.3 x10^3/uL (1.8-7.7) Lymphocytes # (Auto) 0.3 x10^3/uL (1.0-4.8) Monocytes # (Auto) 0.1 x10^3/uL (0.0-1.1) Eosinophils # (Auto) 0.0 x10^3/uL (0.0-0.7) Basophils # (Auto) 0.0 x10^3/uL (0.0-0.2) Sodium Level 136 mmol/L (136-145) Potassium Level 4.3 mmol/L (3.5-5.1) Chloride Level 101 mmol/L (98-107) Carbon Dioxide Level 27 mmol/L (21-32) Anion Gap 8 (6-14) Blood Urea Nitrogen 18 mg/dL (7-20) Creatinine 0.4 mg/dL (0.6-1.0) Estimated GFR (Cockcroft-Gault) 171.1 BUN/Creatinine Ratio 45 (6-20) Glucose Level 291 mg/dL (70-99) Calcium Level 7.9 mg/dL (8.5-10.1) Total Bilirubin 0.8 mg/dL (0.2-1.0) Aspartate Amino Transf (AST/SGOT) 43 U/L (15-37) Alanine Aminotransferase (ALT/SGPT) 106 U/L (14-59) Alkaline Phosphatase 67 U/L (46-116) Total Protein 5.3 g/dL (6.4-8.2) Albumin 2.6 g/dL (3.4-5.0) Albumin/Globulin Ratio 1.0 (1.0-1.7) Test 11/23/19 16:39 11/23/19 17:13 Glucose (Fingerstick) 62 mg/dL (70-99) 138 mg/dL (70-99) Allergies Allergies Coded Allergies Type Severity Reaction Last Updated Verified azithromycin Allergy Intermediate 10/12/19 Yes codeine Allergy Intermediate 05/06/17 Yes morphine Allergy Intermediate 11/01/19 Yes I S O L A T I O N *CONTACT* Allergy Unknown 11/16/19 Yes Disposition/Orders: Other (D/C TO REHAB ) Patient Instructions D/C PLANNING 35 MIN LUANNE OWUSU MD Nov 23, 2019 17:39
--- NOTE | 2019-11-23 17:41 | SNU/HH DC ---
DISCHARGE ORDERS DISCHARGE INFORMATION: DISCHARGE DATE: Nov 20, 2019 FINAL DIAGNOSIS Problems Medical Problems: (1) Abdominal hemorrhage Status: Acute (2) Generalized weakness Status: Acute (3) Lactic acidosis Status: Acute (4) Leukocytosis Status: Acute CONDITION ON DISCHARGE: Stable CODE STATUS: Code Status: Full LONGTERM: SNF STAY <30 DAYS: No HOSPICE: HOSPICE: No HOSPICE EVAL & TREAT: No POST DISCHARGE ORDERS: ACTIVITY ORDERS: Activity as tolerated WEIGHT BEARING STATUS: As tolerated BATHING ORDERS: Shower-keep dressing dry, No Tub Bath until see DIET AFTER DISCHARGE: Cardiac WOUND/INCISION CARE: Ice to area for comfort, Keep wound/cast CDI CHECKS AFTER DISCHARGE: CHECKS AFTER DISCHARGE: Check blood press - daily, Check blood sugar, ac/hs, Check your Temp as needed, Weigh Yourself Daily FOLLOW-UP: PHYSICIAN FOLLOW-UP: ANTON TO BE REMOVED IN 7-10 DAYS ADDITIONAL FOLLOW-UP: start decadRON taper, keep keppra indefinitely TREATMENT/EQUIPMENT ORDERS: ADAPTIVE EQUIPMENT NEEDED: Front wheeled walker RESPIRATORY EQUIPMENT NEEDED: Oxygen Physical Therapy For: Evalulation/Treatment Occupational Therapy For: Evaluation/Treatment Speech Language Pathology For: Evaluation/Treatment DISCHARGE MEDICATIONS: Home Meds Active Scripts Dasatinib (SPRYCEL) 100 Mg Tablet, 100 MG PO BID for cancer for 30 Days, #60 TAB Prov:RAFAEL CAT MD 11/20/19 Tramadol Hcl (TRAMADOL HCL) 50 Mg Tablet, 50 MG PO PRN Q8HRS PRN for MILD PAIN 1-3, #30 TAB Prov:RAFAEL CAT MD 11/20/19 Insulin Aspart (NOVOLOG FLEXPEN) 100 Unit/1 Ml Insuln.pen, 30 UNIT SQ TID for DM for 30 Days, #1 SYR Prov:RAFAEL CAT MD 11/20/19 Insulin Glargine,Hum.rec.anlog (LANTUS SOLOSTAR) 100 Unit/1 Ml Insuln.pen, 40 UNIT SQ BID for 30, #15 ML 5 Refills Prov:RAFAEL CAT MD 11/20/19 Dexamethasone (Decadron) 4 Mg Tablet, 1 TAB PO BID for START TO TAPER AT marh for 3 Days, #6 TAB 0 Refills Prov:RAFAEL CAT MD 11/20/19 Lactobacillus Rhamnosus Gg (CULTURELLE) 1 Each Cap.sprink, 1 CAP PO BID for supplement for 30 Days, #60 CAP Prov:LUANNE OWUSU MD 10/24/19 Reported Medications Oxycodone HCl (Roxicodone) 5 Mg Tablet, 1 TAB PO PRN Q6HRS PRN for SEVERE PAIN 7-10, TAB 11/19/19 Ferrous Sulfate (FERROUS SULFATE) 325 Mg Tablet, 1 TAB PO DAILY for Anemia, #30 TAB 3 Refills 11/19/19 Levetiracetam (KEPPRA) 500 Mg Tablet, 1 TAB PO BID for Seizures for 30 Days, #60 TAB 0 Refills 11/19/19 Duloxetine Hcl (CYMBALTA) 60 Mg Capsule.dr, 1 CAP PO BID for Depression, #90 CAP 3 Refills 10/19/19 Pregabalin (LYRICA) 150 Mg Capsule, 1 CAP PO BID for PAIN, #60 CAP 5 Refills 10/19/19 Rosuvastatin Calcium (CRESTOR) 40 Mg Tablet, 0.5 TAB PO DAILY for HLD, #30 TAB 5 Refills 10/19/19 Polyethylene Glycol 3350 (POLYETHYLENE GLYCOL 3350) 2,500 Gm Powder, 17 GM PO PRN PRN for CONSTIPATION, #255 GM 0 Refills 10/19/19 Alprazolam (XANAX) 1 Mg Tablet, 1 TAB PO TID for Anxiety, #90 TAB 10/19/19 Cyclosporine (RESTASIS) 1 Each Droperette, 1 DROP EACHEYE BID, #60 VIAL 3 Refills 11/26/17 Albuterol Sulfate (PROAIR HFA INHALER) 8.5 Gm Hfa.aer.ad, 1 PUFF INH PRN Q6HRS PRN for SHORTNESS OF BREATH, INHALER 0 Refills 11/25/17 Ondansetron Hcl (ONDANSETRON HCL) 4 Mg Tablet, 2 TAB PO PRN Q8HRS PRN for NAUSEA/VOMITING, #10 TAB 1 Refill 11/25/17 Nystatin (NYSTATIN) 15 Gm Powder, 1 BRET TP BID, #1 BOTTLE 11/25/17 Fluticasone Propionate (FLUTICASONE PROPIONATE NASAL SPRAY) 16 Gm [place].susp, 2 SPRAY NS DAILY, #1 INHALER 11 Refills 11/25/17 Sennosides/Docusate Sodium (SENNA-DOCUSATE SODIUM TABLET) 1 Each Tablet, 1 EACH PO BID for CONSTIPATION, #60 TAB 0 Refills LAST DOSE THIS AM NEXT DOSE TONIGHT 11/09/17 Pantoprazole Sodium (PROTONIX ) 40 Mg Tablet.dr, 40 MG PO DAILY for STOMACH, TAB LST DOSE THIS AM NEXT DOSE TOMORROW AM 05/05/17 Sucralfate (CARAFATE) 1 Gm Tablet, 1 TAB PO TID, #120 TAB 3 Refills Meds not given this hospital admission. May resume home medications as approved by Physician. MAY TAKE WHEN AVAILABLE 05/05/17 Metoprolol Succinate (METOPROLOL SUCCINATE ( XL )) 100 Mg Tab.er.24h, 50 MG PO HS for FOR HYPERTENSION, #30 TAB 0 Refills 05/05/17 Discontinued Reported Medications Dasatinib (SPRYCEL) 100 Mg Tablet, 100 MG PO BID for Cancer, TAB 11/19/19 Dexamethasone (DEXAMETHASONE) 4 Mg Tablet, 4 MG PO QID for Swelling in head, TAB 11/19/19 Insulin Aspart (NOVOLOG) 100 Unit/1 Ml Cartridge, 10-45 UNIT SQ QIDACHS for blood sugar, EACH 10/19/19 Insulin Detemir (LEVEMIR) 100 Unit/1 Ml Vial, 30 UNIT SQ HS for Blood Sugar, VIAL 10/19/19 Linaclotide (LINZESS) 145 Mcg Capsule, 145 MCG PO PRN PRN for CONSTIPATION, CAP 10/19/19 Tramadol Hcl (TRAMADOL HCL) 50 Mg Tablet, 1 TAB PO PRN Q8HRS PRN for PAIN, #30 TAB 11/25/17 Methocarbamol (ROBAXIN-750) 750 Mg Tablet, 1 TAB PO TID for MUSCLE SPASMS, #90 TAB 0 Refills LAST DOSE AT 1400 (2PM) MAY HAVE THE NEXT DOSE AT 10 PM 11/09/17 Rivaroxaban (XARELTO) 15 Mg Tablet, 15 MG PO DAILY for BLOOD THINNER, TAB Meds not given this hospital admission. May resume home medications as approved by Physician. MAY RESUME WHEN AVAILABLE 05/05/17 LUANNE OWUSU MD Nov 23, 2019 17:41
--- NOTE | 2019-11-23 18:56 | NUR ---
pt is discharged to [facility] via EMS via ambulance personnel at 1759 in stable condition. pt has all belongings with her and family. gave report to Julien at [facility] and she stated she had no further questions for me. prescriptions placed in discharge packet and discharge packet was given to ambulance personnel. pt had her TL central line intact upon discharge for use at [facility]. Julien instructed to call dr vang before removal of edd and those can be removed 11/30/19. to taper steroids over 4 weeks, and to received ST at [facility]. dr suero (ID) stated she did not need any antibiotics.
--- NOTE | 2019-12-04 13:07 | PATHOLOGY ---
[facility] Accession Number: [id number] . 01 Material submitted: . PART A: brain - BRAIN MASS - FS PART B: brain - BRAIN MASS PART C: brain - BRAIN MASS . 01 Clinical history: . Left parietal mass . 02 Frozen section diagnosis: . FROZEN SECTION FINAL DIAGNOSIS: FAS1. Brain mass: - Diagnostic tissue present, favor neoplastic. (SHA:[facility]; 11/12/2019) . FROZEN SECTION GROSS DESCRIPTION: A. Specimen received fresh labeled, "Vero Alejo, #1 brain mass", consists of a gibbs piece of tissue measuring 0.3 x 0.3 x 0.2 cm. It is frozen and submitted in cassette FSA1. Two touch preps were also prepared. . B. Specimen received fresh labeled, "Vero Alejo", consists of a gibbs piece of tissue measuring 0.3 x 0.2 x 0.1 cm. It is bisected and a portion of this is sent for flow at the patient has a diagnosis of lymphoma and the rest is sent for permanent sections. (SHA:[facility]; 11/12/2019) . Frozen section performed at [facility], [address] [place] [address]. ALVIN/MBR . 03 Diagnosis: Special studies report received from [place] [id number], on case [id number], labeled with their number [id number], dated 11/23/2019. . PATH Pathology Consultation . Pathology Consult . Interpretation . 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 . Description The tumor cells are positive for CALDERON, supporting the diagnosis of meningioma (immunostain performed at the referring institution and reviewed here). This meningioma is predominantly composed of the microcystic variant, with regions showing angiomatous and meningothelial features. Mitotic activity is inconspicuous., and no features of significant histological atypia are identified. Separate fragments of brain parenchyma are noted, which do not show invasion by the meningioma. These overall features support the WHO grade I designation. Of note, few small foci of extramedullary trilineage hematopoiesis are noted. . Material Received A. [id number]: Brain 17 stained slides, 1 block . Report electronically signed by Joe Yuen M.D. [id number] . I verify that I have examined all relevant slides/materials for the specimen(s) and rendered or confirmed the diagnosis. . . . Disclaimer This test was developed and its performance characteristics determined by [facility] in a manner consistent with CLIA requirements. This test has not been cleared or approved by the U.S. Food and Drug Administration. . A complete copy of the report is on file. . Professional services performed by [address] [address]. Technical services performed by [address], [address], [place] [address]. . (SKM:poppy 11/23/2019) . AZJ 11/23/2019 1619 Local . 03 Electronically signed: . Rah Tello MD, Pathologist NPI- [id number] . 01 Gross description: . PLEASE SEE FROZEN SECTION GROSS DESCRIPTION. . C. The specimen is received in formalin, labeled "Vero Alejo, brain mass". Received are multiple segments of pale gibbs to pink-ashley friable soft tissue measuring 6.2 x 5.1 x 1.1 cm in aggregate dimensions. The specimen is filtered and entirely submitted in cassettes A1 through A5. (CAA; 11/13/2019) QAC/MBR 11/13/2019 1602 Local . 03 Pathologist provided ICD-10: D32.0 . 03 CPT . 099889, 555494, 365546 Specimen Comment: A courtesy copy of this report has been sent to [phone], [phone] Specimen Comment: [phone], Specimen Comment: Report sent to ,DR BAZZI / DR MOSLEY Performed at: 01 [facility] [address] [id number] MD Barry Gan MD Phone: [phone] Performed at: 02 [facility] [address] [place], [place] [id number] MD Raffaele Cerda MD Phone: [phone] Performed at: 03 [facility] [address] [id number] MD Darell Tracy MD Phone: [phone]
--- NOTE | 2019-12-06 16:21 | OP ---
DATE OF SURGERY: 11/13/2019 SURGEON: Deacon Welch MD DUPLICATE MAKER: None. PROCEDURE: Stereotactic MRI-guided left parietal craniotomy for debulking of extraaxial dural base mass. ANESTHESIA: General. INDICATIONS FOR PROCEDURE: The patient is a 49-year-old female, who developed right-sided weakness and was found to have a large dural base parafalcine mass. It was felt that she would benefit from definitive diagnosis as well as debulking of this lesion. She was also recently diagnosed with chronic myeloid leukemia. DESCRIPTION OF PROCEDURE: After informed consent was obtained, the patient was brought into the operating room. She was placed under general anesthesia. She was placed in the prone position with the Mayberry head men's golf coach attached and affixed to the bed in a neutral position exposing the left parietal region. Stereotactic localization was completed with good accuracy to a stereotactic MRI obtained just prior to the procedure. The lesion was localized relative to the surface anatomy with the stereotaxis and the region was prepped and draped in usual sterile fashion. A vertical incision centered over the region of the stereotactically localized mass was made with a 10-blade scalpel. Sindhu clips were applied and the retraction was instituted. The lesion was then localized to the underlying bone utilizing stereotaxis. Outsole Leveler was utilized to create osteotomies around the periphery of this lesion and these were gently undermined with the [place] as well as a #2 [place] and a #3 [place] to separate the dura from the overlying bone. An osteotome was utilized to connect the periphery of the elba holes to fashion a craniotomy. The bone was set aside in bacitracin. It was noted that there was some hemorrhage from the adjacent sinus. This was promptly made hemostatic with Gelfoam, thrombin, and tamponade. The mass was directly visualized under the adjacent dura and also stereotactically verified. Durotomy was performed around the periphery of the mass with care to avoid damaging the adjacent parenchyma. The mass was readily visualized and bipolar electrocautery was utilized to cauterize the periphery of the mass with from the adjacent parenchyma. This mass was gently debulked around the sac and some of the specimens were sent for frozen section. The official diagnosis was lesional tissue; however, discussion with Pathology suggested meningioma with a possible atypical component. The remainder of the mass was gently dissected free from the adjacent parenchyma carefully using bipolar electrocautery with cottonoids to protect the adjacent parenchyma. The adjacent dura attached to the mass was dissected free. The remainder of the mass was sent to Pathology for permanent section. There was a small portion of the mass, which was significantly adherent to the adjacent sinus. It was left to avoid invasion of the sinus. Pristine hemostasis was then achieved with Gelfoam, thrombin, generous gentle irrigation, and Surgicel. Once this was complete, onlay duraplasty with Duragen was instituted. The bone was reapproximated to its original orientation with good anatomical contour and secured with titanium plates and screws. The region was generously irrigated with antibiotic irrigation prior to final closure. The galea was reapproximated with 2-0 Vicryl in interrupted inverted fashion. The subcutaneous tissues were reapproximated with 2-0 Vicryl in interrupted inverted fashion. The skin was reapproximated with edd. Drapes were taken down and the patient was freed from the [place]. The pin sites were inspected for hemorrhage and no hemorrhage was observed. She was turned supine onto the adjacent gurney. She was extubated in the operating room and taken to Recovery in stable condition. DEACON WELCH MD DR: MICHAELA/violetta JOB#: [id number] / [id number]
== END 2019-11-23 17:59 | DRG 25 ==
LOC: ER 12:23 → 1 WEST ICU 12:42 → 5 SOUTH 11-04 17:53 → 1 WEST ICU 11-12 12:30 → 4 NORTH 11-14 13:23
PROVIDERS: ADMIT Internal Medicine; ATTEND Internal Medicine
PROC: 02HV33Z Insertion of Infusion Device into Superior Vena Cava, Percutaneous Approach (ICD-10-PCS; 2019-11-02)
PROC: B548ZZA Ultrasonography of Superior Vena Cava, Guidance (ICD-10-PCS; 2019-11-02)
PROC: 30233N1 Transfusion of Nonautologous Red Blood Cells into Peripheral Vein, Percutaneous Approach (ICD-10-PCS; principal; 2019-11-04)
PROC: 07DR3ZX Extraction of Iliac Bone Marrow, Percutaneous Approach, Diagnostic (ICD-10-PCS; 2019-11-05)
PROC: 00B10ZZ Excision of Cerebral Meninges, Open Approach (ICD-10-PCS; 2019-11-12)
DX: D32.0 Benign neoplasm of cerebral meninges (principal); G93.6 Cerebral edema; C92.10 Chronic myeloid leukemia, BCR/ABL-positive, not having achieved remission; D62 Acute posthemorrhagic anemia; E87.2 Acidosis; G81.91 Hemiplegia, unspecified affecting right dominant side; J98.11 Atelectasis; N39.0 Urinary tract infection, site not specified; Z16.24 Resistance to multiple antibiotics; Z16.12 Extended spectrum beta lactamase (ESBL) resistance; Z68.42 Body mass index [BMI] 45.0-49.9, adult; G93.49 Other encephalopathy; B96.20 Unspecified Escherichia coli [E. coli] as the cause of diseases classified elsewhere; E11.65 Type 2 diabetes mellitus with hyperglycemia; E66.9 Obesity, unspecified; E78.00 Pure hypercholesterolemia, unspecified; E78.5 Hyperlipidemia, unspecified; F32.9 Major depressive disorder, single episode, unspecified; F41.9 Anxiety disorder, unspecified; F90.9 Attention-deficit hyperactivity disorder, unspecified type; G47.33 Obstructive sleep apnea (adult) (pediatric); G62.9 Polyneuropathy, unspecified; G89.29 Other chronic pain; I10 Essential (primary) hypertension; I25.10 Atherosclerotic heart disease of native coronary artery without angina pectoris; J45.909 Unspecified asthma, uncomplicated; K27.9 Peptic ulcer, site unspecified, unspecified as acute or chronic, without hemorrhage or perforation; K59.00 Constipation, unspecified; M54.41 Lumbago with sciatica, right side; N28.9 Disorder of kidney and ureter, unspecified; S30.1XXA Contusion of abdominal wall, initial encounter; Z79.4 Long term (current) use of insulin; I95.9 Hypotension, unspecified; Z79.899 Other long term (current) drug therapy; Z80.0 Family history of malignant neoplasm of digestive organs; Z82.49 Family history of ischemic heart disease and other diseases of the circulatory system; Z86.011 Personal history of benign neoplasm of the brain; Z86.711 Personal history of pulmonary embolism; Z86.718 Personal history of other venous thrombosis and embolism; Z87.01 Personal history of pneumonia (recurrent); Z87.11 Personal history of peptic ulcer disease; Z87.442 Personal history of urinary calculi; Z87.891 Personal history of nicotine dependence; Z90.49 Acquired absence of other specified parts of digestive tract; Z90.710 Acquired absence of both cervix and uterus; Z88.8 Allergy status to other drugs, medicaments and biological substances
CPT/HCPCS: 36415; 36430; 36556; 38222; 70450; 70552; 70553; 71045; 74177; 76937; 77012; 80048; 80053; 81001; 82550; 82728; 82962; 83036; 83540; 83550; 83605; 83735; 84484; 85007; 85014; 85018; 85025; 85027; 85610; 85730; 86704; 86705; 86706; 86709; 86803; 86850; 86900; 86901; 86920; 87040; 87086; 87186; 87340; 88184; 88185; 88237; 88305; 88307; 88311; 88313; 88331; 88342; 88364; 88365; 93005; 93971; 95816; 96361; 96374; 96375; 96376; 99152; A7015; A9575; C1713; C1892; J0690; J0696; J1100; J1170; J1650; J1815; J2001; J2150; J2250; J2405; J2704; J3010; J3490; J7030; J7040; J7120; J8540; P9016; Q0162; Q9967; 92523; 92526; 92610; 97110; 97116; 97530; 97535; 99285-25; G0378

== ENCOUNTER 2020-01-03 18:28 | Emergency (ER) | payer OTHER ==
[~2020-01-03] VITALS: Ht 165.1 cm; Wt 114.0 kg
[~2020-01-03 18:28] MED LIST changes: +DASA100T PO; +DEXA4TAB63 PO; +FERR325T14 PO; +INSU100I13 SQ; +INSU100I17 SQ; +LEVE500T56 PO; +OXYC5TAB88 PO
--- NOTE | 2020-01-03 19:05 | PHYS DOC ---
Past Medical History Past Medical History: Diabetes-Type II, Hypertension, Other Additional Past Medical Histor: ELEVATED D-DIMER, PALPITATIONS, BACK PAIN, PE, brain tumor Past Surgical History: Appendectomy, Cholecystectomy, , Hysterectomy, Other Additional Past Surgical Histo: LOW BACK Smoking Status: Former Smoker Alcohol Use: None Drug Use: None Adult General Chief Complaint Chief Complaint: SHORTNESS OF BREATH HPI HPI Patient is a 49 year old female with a past medical history of hypertension, diabetes, hyperlipidemia, Pulmonary embolisms presents with the chief complaint of shortness of breath and right sided chest pain. Patient states pain and shortness of breath started a few hours ago. Patient states she has had a cough without sputum production for the last several days. Patient states chest pain is similar to previous PE's. Patient is on eliquis and states she has not missed a dose. Review of Systems Review of Systems Constitutional: Denies fever or chills [] Eyes: Denies change in visual acuity, redness, or eye pain [] HENT: Denies nasal congestion or sore throat [] Respiratory: positive cough positive shortness of breath [] Cardiovascular: positive chest pain GI: Denies abdominal pain, nausea, vomiting, bloody stools or diarrhea [] : Denies dysuria or hematuria [] Musculoskeletal: Denies back pain or joint pain [] Integument: Denies rash or skin lesions [] Neurologic: Denies headache, focal weakness or sensory changes [] Endocrine: Denies polyuria or polydipsia [] All other systems were reviewed and found to be within normal limits, except as documented in this note. Current Medications Current Medications Current Medications Medications (Trade) Dose Ordered Sig/Nikki Start Time Stop Time Status Last Admin Dose Admin Acetaminophen/ Hydrocodone Bitart (Lortab 5/325) 1 tab 1X ONCE 01/03/20 22:30 01/03/20 22:31 DC 01/03/20 22:29 1 TAB Albuterol Sulfate (Ventolin Neb Soln) 2.5 mg 1X ONCE 01/03/20 19:45 01/03/20 19:46 DC 01/03/20 20:39 2.5 MG Info (CONTRAST GIVEN -- Rx MONITORING) 1 each PRN DAILY PRN 01/03/20 20:00 01/05/20 19:59 Iohexol (Omnipaque 350 Mg/ml) 100 ml 1X ONCE 01/03/20 19:45 01/03/20 19:46 DC 01/03/20 19:55 100 ML Ketorolac Tromethamine (Toradol 30mg Vial) 30 mg 1X ONCE 01/03/20 20:30 01/03/20 20:31 DC 01/03/20 20:33 30 MG Allergies Allergies Allergies Coded Allergies Type Severity Reaction Last Updated Verified azithromycin Allergy Intermediate 10/12/19 Yes codeine Allergy Intermediate 05/06/17 Yes morphine Allergy Intermediate 11/01/19 Yes I S O L A T I O N *CONTACT* Allergy Unknown 11/16/19 Yes Physical Exam Physical Exam Constitutional: Well developed, well nourished, no acute distress, non-toxic appearance. [] HENT: Normocephalic, atraumatic, bilateral external ears normal, oropharynx moist, no oral exudates, nose normal. [] Eyes: PERRLA, EOMI, conjunctiva normal, no discharge. [] Neck: Normal range of motion, no tenderness, supple, no stridor. [] Cardiovascular:tachycardia Lungs & Thorax: wheezing bilateral Abdomen: Bowel sounds normal, soft, no tenderness, no masses, no pulsatile masses. [] Skin: Warm, dry, no erythema, no rash. [] Back: No tenderness, no CVA tenderness. [] Extremities: No tenderness, no cyanosis, no clubbing, ROM intact, no edema. [] Neurologic: Alert and oriented X 3, normal motor function, normal sensory function, no focal deficits noted. [] Psychologic: Affect normal, judgement normal, mood normal. [] Current Patient Data Vital Signs Vital Signs Date Time Temp Pulse Resp B/P (MAP) Pulse Ox O2 Delivery O2 Flow Rate FiO2 01/03/20 22:29 16 97 Room Air 01/03/20 20:41 2.0 01/03/20 19:32 107 118/79 (92) 01/03/20 18:30 99.6 99.6 Lab Values Laboratory Tests Test 01/03/20 19:15 01/03/20 19:29 01/03/20 21:30 White Blood Count 9.6 x10^3/uL (4.0-11.0) Red Blood Count 3.32 x10^6/uL (3.50-5.40) L Hemoglobin 10.4 g/dL (12.0-15.5) L Hematocrit 31.8 % (36.0-47.0) L Mean Corpuscular Volume 96 fL (79-100) Mean Corpuscular Hemoglobin 31 pg (25-35) Mean Corpuscular Hemoglobin Concent 33 g/dL (31-37) Red Cell Distribution Width 19.3 % (11.5-14.5) H Platelet Count 431 x10^3/uL (140-400) H Neutrophils (%) (Auto) 50 % (31-73) Lymphocytes (%) (Auto) 37 % (24-48) Monocytes (%) (Auto) 12 % (0-9) H Eosinophils (%) (Auto) 1 % (0-3) Basophils (%) (Auto) 0 % (0-3) Neutrophils # (Auto) 4.8 x10^3/uL (1.8-7.7) Lymphocytes # (Auto) 3.5 x10^3/uL (1.0-4.8) Monocytes # (Auto) 1.1 x10^3/uL (0.0-1.1) Eosinophils # (Auto) 0.1 x10^3/uL (0.0-0.7) Basophils # (Auto) 0.0 x10^3/uL (0.0-0.2) D-Dimer (Samia) 3.22 ug/mlFEU (0.00-0.50) H Sodium Level 143 mmol/L (136-145) Potassium Level 3.4 mmol/L (3.5-5.1) L Chloride Level 107 mmol/L (98-107) Carbon Dioxide Level 23 mmol/L (21-32) Anion Gap 13 (6-14) Blood Urea Nitrogen 11 mg/dL (7-20) Creatinine 0.5 mg/dL (0.6-1.0) L Estimated GFR (Cockcroft-Gault) 132.2 BUN/Creatinine Ratio 22 (6-20) H Glucose Level 154 mg/dL (70-99) H Calcium Level 8.8 mg/dL (8.5-10.1) Total Bilirubin 0.4 mg/dL (0.2-1.0) Aspartate Amino Transferase (AST) 26 U/L (15-37) Alanine Aminotransferase (ALT) 30 U/L (14-59) Alkaline Phosphatase 77 U/L (46-116) Troponin I Quantitative < 0.017 ng/mL (0.000-0.055) < 0.017 ng/mL (0.000-0.055) Total Protein 6.8 g/dL (6.4-8.2) Albumin 2.9 g/dL (3.4-5.0) L Albumin/Globulin Ratio 0.7 (1.0-1.7) L Influenza Type A Antigen Negative (NEGATIVE) Influenza Type B Antigen Negative (NEGATIVE) Laboratory Tests 01/03/20 19:15 Laboratory Tests 01/03/20 19:15 EKG EKG [] Interpretation Time: 1846-- HR 113 sinus tachycardia no stemi Radiology/Procedures Radiology/Procedures [] Impressions: CT chest -- no PE Course & Med Decision Making Course & Med Decision Making Pertinent Labs and Imaging studies reviewed. (See chart for details) []Patient was evaluated for chief complaint. Workup consisted of laboratory analysis and radiologic imaging and EKG. Results reviewed and discussed with patient and family. Patient EKG without acute ischemic changes. Patient initially tachycardic heart rate improved to 66. Troponin 2 negative. Patient's pain controlled with pain medications. CT angios no pulmonary embolism. Patient discharged home with pain medications and placed on Augmentin. Dragon Disclaimer Dragon Disclaimer This electronic medical record was generated, in whole or in part, using a voice recognition dictation system. Departure Departure Impression: Primary Impression: Chest pain Additional Impression: Bronchitis Disposition: HOME, SELF-CARE Condition: STABLE Referrals: LADY MOSLEY APRN (PCP) Patient Instructions: Bronchitis, Chest Pain (Nonspecific) Scripts Hydrocodone/Apap 5-325 (NORCO 5-325 TABLET) 1 Each Tablet 1 TAB PO TID, #14 TAB Prov: ROWAN RIVAS DO 01/03/20 Amoxicillin (AMOXICILLIN) 875 Mg Tablet 1 TAB PO BID, #14 TAB Prov: ROWAN RIVAS DO 01/03/20 Problem Qualifiers ROWAN RIVAS DO Jan 03, 2020 19:05
[2020-01-03 19:29] LABS: BASO % 0 % (0-3); EOS # 0.1 x10^3/uL (0.0-0.7); EOS % 1 % (0-3); HEMATOCRIT 31.8 % (36.0-47.0); HEMOGLOBIN 10.4 g/dL (12.0-15.5); LYMPH # 3.5 x10^3/uL (1.0-4.8); LYMPH % 37 % (24-48); MEAN CORPUSCULAR HEMOGLOBIN 31 pg (25-35); MEAN CORPUSCULAR HGB CONC 33 g/dL (31-37); MEAN CORPUSCULAR VOLUME 96 fL (79-100); MONO # 1.1 x10^3/uL (0.0-1.1); MONO % 12 % (0-9); NEUT # 4.8 x10^3/uL (1.8-7.7); NEUT % 50 % (31-73); PLATELET COUNT 431 x10^3/uL (140-400); RED BLOOD COUNT 3.32 x10^6/uL (3.50-5.40); RED CELL DISTRIBUTION WIDTH 19.3 % (11.5-14.5); WHITE BLOOD COUNT 9.6 x10^3/uL (4.0-11.0)
[2020-01-03 19:37] LABS: CALCIUM 8.8 mg/dL (8.5-10.1); CREATININE 0.5 mg/dL (0.6-1.0); GFR 132.2; POTASSIUM 3.4 mmol/L (3.5-5.1)
[2020-01-03 19:42] LABS: ALBUMIN 2.9 g/dL (3.4-5.0); ALBUMIN/GLOBULIN RATIO 0.7 (1.0-1.7); TOTAL BILIRUBIN 0.4 mg/dL (0.2-1.0); TOTAL PROTEIN 6.8 g/dL (6.4-8.2)
[2020-01-03] MEDS ORDERED: IOHEXOL 350 MG/ML 100 ML VIAL. IV ONE (19:45)
[2020-01-03] MEDS ORDERED: ALBUTEROL SULFATE 2.5 MG/3 ML NEBU. NEB ONE (19:45)
[2020-01-03 20:00] LABS: INFLUENZA A PATIENT NEGATIVE (NEGATIVE); INFLUENZA B PATIENT NEGATIVE (NEGATIVE)
[2020-01-03] MEDS ORDERED: CONTRAST GIVEN. MC PRN (20:00)
[2020-01-03] MEDS ORDERED: KETOROLAC 30 MG/ML VIAL. IVP ONE (20:30)
--- NOTE | 2020-01-03 20:39 | RAD ---
Study: CT CHEST WITH CONTRAST - PULMONARY ANGIOGRAM History: Right-sided chest pain. Comparison: Most recent CT chest from 10/23/2019. CT angiography of the chest from 11/25/2017 Technique: Helical CT of the chest performed after the administration of 100 cc Omnipaque 350 intravenous contrast and timed for angiographic evaluation of the pulmonary arteries per PE protocol. Coronal and sagittal 3D MIP reformations were obtained. One or more of the following individualized dose reduction techniques were utilized for this examination: 1. Automated exposure control 2. Adjustment of the mA and/or kV according to patient size 3. Use of iterative reconstruction technique. Findings: Degraded study secondary to patient body habitus. Pulmonary Arteries: No main or lobar pulmonary embolism. Many segmental and the majority of subsegmental pulmonary arteries are not well evaluated but no pulmonary embolism is definitively seen at these locations. No CT findings of overt right heart strain. Heart/Systemic Vasculature: Unchanged aortic caliber. Patent great vessel origins. Mediastinum: Interval enlargement of multiple mediastinal and hilar lymph nodes most significantly at the right hilum though these are still relatively small in size at no more than 1 cm short axis. Lungs: Multifocal groundglass attenuation involving the majority of the right lung and with a basilar predominance. Less pronounced involvement of the left lung. The patient is imaged during the expiratory phase with the posterior aspect of the trachea collapsed and a component of this hazy attenuation could be physiologic. Soft tissue fullness along the airways to the right more so than left lower lobes in part related to lymph nodes. Right more so than left basilar volume loss. No pleural effusion or pneumothorax. Very small right upper lobe nodule, image 36 series 3, measuring approximately 3 mm. Adjacent larger nodule measures 5 mm. Peripheral nodule at the mid to lower right lung, image 51 series 3, measures 4 mm. These last two nodules appear to have been present previously but are slightly larger. Neck/Axilla/Body Wall: Scattered mildly prominent axillary lymph nodes with maintained fatty annemarie are redemonstrated. The visualized thyroid is unremarkable. Asymmetric fat stranding of the subcutaneous tissues along the right aspect of the lower chest and upper abdomen that is partially included in the [id number]. Upper Abdomen: Hepatic steatosis. Cholecystectomy. Redemonstrated ventral midline fat-containing hernia at the upper abdomen, image 127 series 3. Bones: No newly seen osseous abnormality. Miscellaneous: None. IMPRESSION: 1. The study is degraded by patient body habitus with resultant quantum mottle. Taking this into consideration, no pulmonary embolism is identified. 2. Lymph nodes scattered throughout the mediastinum and annemarie have essentially all increased in size from the 10/23/2019 study though still measure at or less than a centimeter in short axis dimension. Though ultimately indeterminate, a reactive etiology is favored over a malignant one. An additional consideration would be a process such as sarcoidosis. 3. Hazy increased attenuation of the right more so than left lungs in part related to expiratory phase of imaging with physiologic alveolar collapse. Soft tissue fullness along the central airways at the right more so than left lower lobes. An infectious etiology is not exlcuded though there is no confluent infiltrate typical of an organizing pneumonia. 4. Three right lung pulmonary nodules measuring 5 mm or less, as detailed above, are either new or enlarging. Given concomitant increase in size of lymph nodes, recommend follow-up CT in 3 to 6 months to document improvement or stability. 5. Partially visualized asymmetric subcutaneous fat stranding at the right lateral aspect of the lower chest and upper abdomen. Correlate with regional erythema that would suggest an infectious process. Electronically signed by: SHALONDA BAEZA MD (01/03/2020 8:36 PM) [id number]
--- NOTE | 2020-01-03 21:59 | EKG ---
[facility] [address] [place] [address] Test Date: 2020-01-03 Test Time: 18:46:52 Pat Name: ANKIT KWONSKY Department: Room: Gender: F Developer Designer: : 1970 Requested By: ROWAN RIVAS Order Number: [id number] Reading MD: Measurements Intervals [place] Rate: 113 P: 119 AK: 132 QRS: 59 QRSD: 86 T: 34 QT: 332 QTc: 461 Interpretive Statements SINUS TACHYCARDIA NO SPECIFIC ECG ABNORMALITIES RI6.01 No previous ECG available for comparison
[2020-01-03 22:02] VITALS: BP 99/68
[2020-01-03] MEDS ORDERED: HYDR-3164 PO (22:20)
[2020-01-03] MEDS ORDERED: AMOX875T PO (22:20)
[2020-01-03] MEDS ORDERED: HYDROcodone/APAP 5/325MG 1 TAB TABLET PO ONE (22:30)
== END 2020-01-03 22:45 | disposition home or self-care (01) ==
LOC: ER 18:28
DX: J40 Bronchitis, not specified as acute or chronic (principal); I10 Essential (primary) hypertension; E11.9 Type 2 diabetes mellitus without complications; Z87.891 Personal history of nicotine dependence; Z88.1 Allergy status to other antibiotic agents; Z88.5 Allergy status to narcotic agent; Z91.041 Radiographic dye allergy status
CPT/HCPCS: 36415; 71275; 80053; 84484; 85025; 85379; 87804; 93005; 94640; 94760; 96374; 99285; J1885; J7613; Q9967

== ENCOUNTER 2021-01-16 12:00 | Inpatient (IN) | payer OTHER ==
[~2021-01-16] VITALS: Ht 172.7 cm; Wt 122.6 kg
[~2021-01-16 12:00] MED LIST changes: +ACET325T21 PO; +AMLO-186 PO; -AMLO5TAB10 PO; +AMOX875T PO; +APIX5TAB PO; +BISA10SU4 PR; +CALC500T14 PO; -CETI10TA24 PO; +CETI10TA74 PO; +CLON1TAB PO; +DICY10CA3 PO; +GLEEVEC400 MG PO; +HYDR-3164 PO; +INSU100V35 SQ; +INSU100V8 SQ; +MAG30ORA2 PO; +METF500T16 PO; +METO100T7 PO; +METO50TA6 PO; +OXYC1TAB19 PO; +POLY17PO52 PO; +POTA20TA4 PO; +TIOT18CA IH
--- NOTE | 2021-01-16 12:14 | PHYS DOC ---
Past Medical History Past Medical History: Cancer, CVA, Diabetes-Type II, Hypertension, Other Additional Past Medical Histor: PE, brain tumor, LEUKEMIA, CVA WITH R. SIDED DEFICIT Past Surgical History: Appendectomy, Cholecystectomy, , Hysterectomy, Other Additional Past Surgical Histo: LOW BACK, BRAIN SX-TUMOR Smoking Status: Former Smoker Alcohol Use: None Drug Use: None General Adult HPI: HPI: 49-year-old female with PMHx Anxiety, CAD, Diabetes, CML high Cholesterol, Hypertension, Kidney Stones, Ovarian Cyst, Pneumonia, history pulmonary embolism, CVA with right-sided deficits and meningioma, who presents to the ED with complaints of headache nausea vomiting. Patient is overall a poor historian. She was just discharged from the hospital yesterday per discharge instructions she was here for colitis and chest pain. Patient reports she was sent home on antibiotics. However, I do not see this on her discharge instructions. She is on Eliquis. Patient reports she has not been able to keep anything down today. She has had a headache but this is not new. She does have a history of meningioma s/p craniectomy. Patient reports diffuse abdominal tenderness. Mild shortness of breath. Unsure about fever. Patient arrived by EMS. Patient is not a smoker. Denies drugs or alcohol. Review of Systems: Review of Systems: Review of Systems: Constitutional: Denies fever or chills Eyes: Denies redness or eye pain HENT: Denies nasal congestion or sore throat Respiratory: Denies cough or shortness of breath Cardiovascular: Denies chest pain or palpitations GI: denies abdominal pain or diarrhea. +nausea vomiting : Denies dysuria or hematuria Musculoskeletal: Denies back pain or joint pain Integument: Denies rash or skin lesions Neurologic: Denies focal weakness or sensory changes +headache Allergies: Allergies: Allergies Coded Allergies Type Severity Reaction Last Updated Verified azithromycin Allergy Intermediate 10/12/19 Yes codeine Allergy Intermediate 05/06/17 Yes morphine Allergy Intermediate 11/01/19 Yes I S O L A T I O N *CONTACT* Allergy Unknown 11/16/19 Yes Physical Exam: PE: GENERAL APPEARANCE: Awake and alert. Cooperative. In distress HEAD: Normocephalic. Atraumatic. EYES: EOM's grossly intact. Sclera anicteric. Conjunctiva clear ENT:. Airway patent. Mucous membranes moist. No trismus. Tolerating secretions. NECK: Supple. Trachea midline. HEART: Regular rate and rhythm. Radial pulses 2+. Good capillary refill. LUNGS: Respirations unlabored. Clear to auscultation bilaterally. No rales, rhonchi, wheezing or retractions. ABDOMEN: Soft. Diffuse tenderness no guarding or rebound. No CVA tenderness. No palpable or pulsatile mass. EXTREMITIES: No acute deformities. No edema, erythema or calf tenderness. SKIN: Warm and dry. No rash. NEUROLOGICAL: Alert and oriented x3. Cranial nerves II through XII intact. Sensation is normal. Speech normal. Weakness in the right upper and lower extremity patient reports this is baseline from previous CVA. PSYCHIATRIC: Normal mood. Current Patient Data: Labs: Laboratory Tests Test 01/16/21 12:09 Glucose (Fingerstick) 118 mg/dL (70-99) H EKG: EKG: EKG interpretation shows sinus tachycardia ventricular rate of 119 bpm. NV interval 104 ms. QRS duration 86 ms. QTc of [address] segment elevations. [] Radiology/Procedures: Radiology/Procedures: PROCEDURE: CHEST AP ONLY XR CHEST 1V History: Reason: nausea vomiting / Spl. Instructions: / History: Comparison: 11/02/2019 Technique: Portable AP chest radiograph. Findings: The lungs are hyperinflated with elevation of the right diaphragm. Minimal basilar opacities likely atelectasis. No pleural effusion or pneumothorax. Prominent cardiac silhouette accentuated by technique and hypoinflation. Osseous structures and soft tissues are unremarkable. Impression: 1. Hypoinflation with presumed basilar atelectasis. Electronically signed by: Ronald Meza MD (01/16/2021 1:34 PM) [facility] DICTATED and SIGNED BY: RONLAD MEZA MD DATE: 01/16/21 [id number] 0 PROCEDURE: CT CHEST ABDOMEN PELVIS WO CT CHEST_ABDOMEN_ AND PELVIS WITHOUT CONTRAST History: Reason: vomiting / Spl. Instructions: / History: Comparison: CT angiogram chest abdomen and pelvis 01/09/2021, 11/02/2017. Technique: Noncontrast CT of the chest, abdomen and pelvis. Findings: Noncontrast technique and body habitus limits evaluation. No supraclavicular adenopathy. The mediastinum is unremarkable without adenopathy. Mild coronary artery calcification. No pericardial effusion. The aorta and pulmonary arteries are unremarkable in noncontrast appearance. Expiratory imaging of the lungs with motion artifact. Patchy right lower lobe predominant airspace opacities. No pleural effusion. The liver is unremarkable. Cholecystectomy clips. No biliary ductal dilatation. Fatty atrophy of the pancreas. Unremarkable spleen. Adrenal glands are within normal limits. Redemonstrated left posterior hilar renal cyst measuring 3.2 cm with likely proteinaceous or hemorrhagic content. The stomach and small bowel are unremarkable. Normal appendix. The colon is unremarkable. Hysterectomy changes. Unremarkable bladder. Mild aortoiliac atherosclerotic calcification. Incidental retroaortic left renal vein. No abdominopelvic adenopathy. No free air or free fluid. Small fat-containing umbilical hernia. Osseous structures are unremarkable. Impression: 1. A few patchy right greater than left lung opacities may represent pneumonia in the appropriate clinical setting. 2. No acute findings in the abdomen and pelvis. ------ Exposure: One or more of the following individualized dose reduction techniques were utilized for this examination: 1. Automated exposure control 2. Adjustment of the mA and/or kV according to patient size 3. Use of iterative reconstruction technique. Electronically signed by: Ronald Meza MD (01/16/2021 3:12 PM) [facility] DICTATED and SIGNED BY: RONALD MEZA MD DATE: 01/16/21 [id number] 0 PROCEDURE: CHEST AP ONLY XR CHEST 1V History: Reason: nausea vomiting / Spl. Instructions: / History: Comparison: 11/02/2019 Technique: Portable AP chest radiograph. Findings: The lungs are hyperinflated with elevation of the right diaphragm. Minimal basilar opacities likely atelectasis. No pleural effusion or pneumothorax. Prominent cardiac silhouette accentuated by technique and hypoinflation. Osseous structures and soft tissues are unremarkable. Impression: 1. Hypoinflation with presumed basilar atelectasis. Electronically signed by: Ronald Meza MD (01/16/2021 1:34 PM) [facility] DICTATED and SIGNED BY: RONALD MEZA MD DATE: 01/16/21 [id number] 0 Course & Med Decision Making: Course & Med Decision Making Medical decision making: This is a 50-year-old female arrives by EMS for headache nausea vomiting. Upon arrival to the emergency department patient does have some right-sided weakness. Patient does report this is baseline. She reports she has not been able to keep anything down since this morning. She was discharged from the hospital yesterday for colitis. Patient continues to have abdominal pain. Patient's temperature 101.6. Heart rate of 116. Blood pressure 151/79. Patient is 91% on room air. Blood cultures fluids and antibiotics were ordered. COVID pending. Alcohol acetaminophen and salicylate negative. Urine does not appear infected. No leukocytosis. Lactic acid normal. Chest x-ray shows hypoinflation with basilar atelectasis. CT of the head showed no acute intracranial abnormality. CT of the chest abdomen pelvis without contrast shows patchy right greater than left lung opacities. May represent pneumonia. No acute findings in the pelvis. Patient is not . On reevaluation patient appears slightly more comfortable. She is on 2 L of oxygen. At this time based on patient's symptoms and findings will admit to the hospital for further observation and evaluation. Spoke with patient. Agreeable to admission. They are aware of all labs and imaging. All questions answered and patient stable at time of admission. Amanda Disclaimer: Amanda Disclaimer: This electronic medical record was generated, in whole or in part, using a voice recognition dictation system. Departure Departure Impression: Primary Impression: Nausea & vomiting Qualified Codes: R11.2 - Nausea with vomiting, unspecified Additional Impressions: Headache Qualified Codes: R51.9 - Headache, unspecified Pneumonia Qualified Codes: J18.9 - Pneumonia, unspecified organism Disposition: 09 ADMITTED INPT THIS HOSP [facility] Condition: IMPROVED Referrals: KAVYA ELIAS DO (PCP) BRYAN DE LA ROSA DO Jan 16, 2021 12:14
[2021-01-16] MEDS ORDERED: IV NORMAL SALINE 1000ML BAG 1,000 ML IV ONE (12:30)
[2021-01-16] MEDS ORDERED: VANCOMYCIN 1.25 GM in IV NORMAL SALINE 250ML 250 ML IV ONE (12:30)
[2021-01-16] MEDS ORDERED: ONDANSETRON PF 4 MG/2 ML VIAL. IM ONE (12:30)
[2021-01-16] MEDS ORDERED: cefTRIAXone IV Push 1 GM VIAL. IVP ONE (12:30)
[2021-01-16] MEDS ORDERED: VANCOMYCIN 2 GM in IV NORMAL SALINE 500ML BAG 500 ML IV ONE (12:45)
--- NOTE | 2021-01-16 13:12 | EKG ---
[facility] [address] [place] [address] Test Date: 2021-01-16 Test Time: 12:08:13 Pat Name: ANKIT MCGREGOR Department: Room: Gender: F Nylon Operator: : 1970 Requested By: BRYAN DE LA ROSA Order Number: [id number] Reading MD: Measurements Intervals [place] Rate: 119 P: -51 ID: [id number] QRS: 72 QRSD: 86 T: 56 QT: 318 QTc: 448 Interpretive Statements SINUS TACHYCARDIA QRS(T) CONTOUR ABNORMALITY CONSISTENT WITH INFERIOR INFARCT PROBABLY OLD ABNORMAL ECG RI6.01 No previous ECG available for comparison
[2021-01-16 13:16] LABS: BILIRUBIN,URINE NEGATIVE (NEG); CLARITY,URINE CLEAR; COLOR,URINE YELLOW; NITRITE,URINE NEGATIVE (NEG); PROTEIN,URINE NEGATIVE (NEG-TRACE); UROBILINOGEN,URINE 0.2 mg/dL (0.2 mg/dL)
[2021-01-16 13:17] LABS: BACTERIA,URINE 0 /HPF (0-FEW)
[2021-01-16 13:21] LABS: BASO % 0 % (0-3); EOS % 1 % (0-3); HEMATOCRIT 35.7 % (36.0-47.0); HEMOGLOBIN 11.7 g/dL (12.0-15.5); LYMPH # 0.7 x10^3/uL (1.0-4.8); LYMPH % 9 % (24-48); MEAN CORPUSCULAR HEMOGLOBIN 31 pg (25-35); MEAN CORPUSCULAR HGB CONC 33 g/dL (31-37); MEAN CORPUSCULAR VOLUME 96 fL (79-100); MONO # 0.3 x10^3/uL (0.0-1.1); MONO % 3 % (0-9); NEUT # 7.3 x10^3/uL (1.8-7.7); NEUT % 87 % (31-73); PLATELET COUNT 221 x10^3/uL (140-400); RED BLOOD COUNT 3.73 x10^6/uL (3.50-5.40); RED CELL DISTRIBUTION WIDTH 14.4 % (11.5-14.5); WHITE BLOOD COUNT 8.4 x10^3/uL (4.0-11.0)
[2021-01-16 13:32] LABS: CALCIUM 8.1 mg/dL (8.5-10.1); CREATININE 0.9 mg/dL (0.6-1.0); GFR 66.8; POTASSIUM 4.3 mmol/L (3.5-5.1)
[2021-01-16 13:36] LABS: ETHANOL < 10 mg/dL (0-10); SALIC < 2.8 mg/dL (2.8-20.0)
--- NOTE | 2021-01-16 13:36 | RAD ---
XR CHEST 1V History: Reason: nausea vomiting / Spl. Instructions: / History: Comparison: 11/02/2019 Technique: Portable AP chest radiograph. Findings: The lungs are hyperinflated with elevation of the right diaphragm. Minimal basilar opacities likely a telectasis. No pleural effusion or pneumothorax. Prominent cardiac silhouette accentuated by techniqu e and hypoinflation. Osseous structures and soft tissues are unremarkable. Impression: 1. Hypoinflation with presumed basilar atelectasis. Electronically signed by: Ronald Meza MD (01/16/2021 1:34 PM) [facility]
[2021-01-16 13:37] LABS: ACETAMIN < 2.0 mcg/ml (10-30)
[2021-01-16 13:38] LABS: ALBUMIN 3.5 g/dL (3.4-5.0); TOTAL BILIRUBIN 0.5 mg/dL (0.2-1.0)
[2021-01-16] MEDS ORDERED: CONTRAST GIVEN. MC PRN (14:00)
[2021-01-16] MEDS ORDERED: IOHEXOL 300 MG/ML 100ML VIAL. IV ONE (14:00)
[2021-01-16 14:35] LABS: % EOS 1 % (0-5); % LYMPHS 9 % (24-48); % SEGS 90 % (35-66)
[2021-01-16 14:37] LABS: POLYCHROMASIA SLIGHT
[2021-01-16 14:38] LABS: ANISOCYTOSIS SLIGHT
[2021-01-16 14:39] LABS: PLT ESTIMATE ADEQUATE (ADEQUATE)
[2021-01-16] MEDS ORDERED: ACETAMINOPHEN 500 MG TABLET PO ONE (14:45)
--- NOTE | 2021-01-16 14:58 | RAD ---
CT HEAD/BRAIN WO History: Reason: headache / Spl. Instructions: / History: Comparison: CT 01/09/2021. MRI 10/19/2019. Technique: Noncontrast CT imaging was performed of the head. Findings: Redemonstrated left frontoparietal craniotomy changes with mild cephalization change along the adjacent cortex. No intracranial hemorrhage. No mass effect. No hydrocephalus. Extra-axial spaces are unremarkable. Imaged orbits are unremarkable. Imaged paranasal sinuses and mastoid air cells are clear. No acute ca lvarial fracture. Impression: 1. No acute intracranial abnormality. 2. Stable postsurgical changes from left frontal extra-axial mass excision. ----- Exposure: One or more of the following individualized dose reduction techniques were utilized for thi s examination: 1. Automated exposure control 2. Adjustment of the mA and/or kV according to patient size 3. Use of iterative reconstruction technique. Electronically signed by: Ronald Meza MD (01/16/2021 2:56 PM) [facility]
--- NOTE | 2021-01-16 15:14 | RAD ---
CT CHEST_ABDOMEN_ AND PELVIS WITHOUT CONTRAST History: Reason: vomiting / Spl. Instructions: / History: Comparison: CT angiogram chest abdomen and pelvis 01/09/2021, 11/02/2017. Technique: Noncontrast CT of the chest, abdomen and pelvis. Findings: Noncontrast technique and body habitus limits evaluation. No supraclavicular adenopathy. The mediastinum is unremarkable without adenopathy. Mild coronary vera ry calcification. No pericardial effusion. The aorta and pulmonary arteries are unremarkable in nonco ntrast appearance. Expiratory imaging of the lungs with motion artifact. Patchy right lower lobe predominant airspace op acities. No pleural effusion. The liver is unremarkable. Cholecystectomy clips. No biliary ductal dilatation. Fatty atrophy of the pancreas. Unremarkable spleen. Adrenal glands are within normal limits. Redemonstrated left posterior hilar renal cyst measuring 3.2 cm with likely proteinaceous or hemorrhagic content. The stomach and small bowel are unremarkable. Normal appendix. The colon is unremarkable. Hysterectomy changes. Unremarkable bladder. Mild aortoiliac atherosclerotic calcification. Incidental retroaortic left renal vein. No abdominopelvic adenopathy. No free air or free fluid. Small fat-cont aining umbilical hernia. Osseous structures are unremarkable. Impression: 1. A few patchy right greater than left lung opacities may represent pneumonia in the appropriate cl inical setting. 2. No acute findings in the abdomen and pelvis. ------ Exposure: One or more of the following individualized dose reduction techniques were utilized for thi s examination: 1. Automated exposure control 2. Adjustment of the mA and/or kV according to patient size 3. Use of iterative reconstruction technique. Electronically signed by: Ronald Meza MD (01/16/2021 3:12 PM) [facility]
[2021-01-16 16:21] LABS: PREG TEST PT QUAL NEGATIVE (NEG)
[2021-01-16] MEDS ORDERED: ONDANSETRON PF 4 MG/2 ML VIAL. IV PRN (17:30)
[2021-01-16 19:00] VITALS: BP 104/58
[2021-01-16] MEDS: CEFEPIME HCL IV Push 1 GM VIAL. IVP SCH ×2 (19:58→21:23)
[2021-01-16 23:00] VITALS: BP 90/53
[2021-01-16] MEDS: oxyCODONE/APAP 7.5/325 1 TAB TABLET PO PRN (23:58)
[2021-01-17] MEDS: fentaNYL PF VIAL 100 MCG/2 ML VIAL IVP PRN ×3 (02:56→21:07)
[2021-01-17 03:00] VITALS: BP 86/46
[2021-01-17 07:00] VITALS: BP 122/67
[2021-01-17] MEDS ORDERED: ALBUTEROL SULFATE 2.5 MG/3 ML NEBU. INH PRN (07:42)
[2021-01-17] MEDS ORDERED: ACETAMINOPHEN 325 MG TABLET. PO PRN (07:45)
[2021-01-17] MEDS ORDERED: DEXTROSE 50% 25 GM / 50ML DISP.SYRIN. IV PRN (07:45)
[2021-01-17] MEDS: INSULIN LISPRO 300 UNITS/3 ML VIAL. SQ SCH ×3 (08:00→17:21)
[2021-01-17] MEDS ORDERED: BISACODYL 10 MG SUPP.RECT. PR PRN (08:30)
[2021-01-17] MEDS ORDERED: NON FORMULARY ITEM (Tiotropium Bromide (Spiriva) 1 CAP) IH SCH (09:00)
[2021-01-17] MEDS: FLUTICASONE 50MCG/NASAL SPRAY 16GM BOTTLE. NS SCH (09:31)
[2021-01-17] MEDS: CEFEPIME HCL IV Push 1 GM VIAL. IVP SCH ×2 (09:31→20:43)
[2021-01-17] MEDS: cycloSPORINE 0.05% OPHTH DROPERETTE. OU SCH ×2 (09:31→20:57)
[2021-01-17] MEDS: ATORVASTATIN CALCIUM 40 MG TABLET. PO SCH (09:32)
[2021-01-17] MEDS: SUCRALFATE 1 GM TABLET. PO SCH ×2 (09:32→20:44)
[2021-01-17] MEDS: PREGABALIN 75 MG CAPSULE PO SCH ×3 (09:32→20:57)
[2021-01-17] MEDS: METOPROLOL TART IMMED RELEASE 50 MG TABLET. PO SCH ×2 (09:33→20:56)
[2021-01-17] MEDS: PANTOPRAZOLE 40 MG TABLET.DR. PO SCH (09:33)
[2021-01-17] MEDS: traMADol 50 MG TABLET PO PRN (09:33)
[2021-01-17] MEDS: APIXABAN 5 MG TABLET. PO SCH ×2 (09:34→20:44)
[2021-01-17] MEDS: CETIRIZINE HCL 10 MG TABLET. PO SCH (09:34)
[2021-01-17] MEDS: POTASSIUM CHLORIDE 20 MEQ TABLET.ER. PO SCH (09:34)
[2021-01-17] MEDS: CALCIUM CARBONATE 500 MG TABLET PO SCH ×3 (09:34→17:20)
--- NOTE | 2021-01-17 09:55 | CONS ---
DATE OF CONSULTATION: 01/17/2021 REFERRING PHYSICIAN: Dr. Lubin. REASON FOR CONSULTATION: Possible HCAP. HISTORY OF PRESENT ILLNESS: A 50-year-old female with history of diabetes, leukemia, brain mass, hyperlipidemia, hypertension, kidney stone, right sided weakness, history of meningioma resection, and history of recent colitis who was just discharged from the hospital on Cipro and Flagyl. The patient is a poor historian. She returned back to the ED within a day with complaints of nausea and vomiting, which started while she was lying down. The patient has headache, which is not new for her. She was febrile at 101. White count was normal. Chest x-ray showed hypoinflation with presumed bibasilar atelectasis. CTA showed few patchy right than left lung opacities, may represent pneumonia, no acute findings in the abdomen and pelvis. The patient was started on IV cefepime and ID consult has been requested for antibiotic management. The patient denies any sore throat. Denies any further episodes of nausea and vomiting. Still feels very weak. Continues to have right sided weakness, which is chronic. Last admission, she was seen by Radiation Oncology and plans were to start palliative radiation for recurrent meningioma. The patient also has a history of PE and asthma. The patient denies any further episodes of diarrhea this hospitalization. PAST MEDICAL HISTORY: Hypertension, hyperlipidemia, history of PE, history of leukemia, history of meningioma, status post resection, right sided weakness, peripheral neuropathy, morbid obesity, KRISS. PAST SURGICAL HISTORY: Appendectomy, cholecystectomy, , hysterectomy, splenectomy. FAMILY HISTORY: Coronary artery disease, hypertension. SOCIAL HISTORY: Quit smoking 10 years ago. ALLERGIES: AZITHROMYCIN, CODEINE, MORPHINE. CURRENT MEDICATIONS: Cefepime and other medications reviewed in JAN. REVIEW OF SYSTEMS: Negative except for above in HPI, though limited as the patient is a poor historian. PHYSICAL EXAMINATION: VITAL SIGNS: Temperature 96.1, T-max was 101.6, pulse 77, respiratory rate 18, blood pressure 122/67, oxygen saturation 100% on 2 liters O2 by nasal cannula. GENERAL: Alert, awake female, talking on phone, in no acute distress, on nasal O2. HEENT: Normocephalic, atraumatic. Oral mucosa moist. No thrush. NECK: Supple, no JVD. LUNGS: Decreased breath sounds at the bases, otherwise clear. No wheezing. HEART: S1, S2. No gallops or murmurs. ABDOMEN: Soft, mild diffuse tenderness present. No rebound, no guarding. EXTREMITIES: No edema, no cyanosis. DERMATOLOGIC: Warm, dry. No generalized rash. NEUROLOGIC: Alert, oriented x 3. Weakness of the right upper and lower extremity, which is baseline from previous is chronic. PSYCHIATRIC: Calm and cooperative. LABORATORY DATA: WBC 8.4, hemoglobin 11.7, hematocrit 35.7, platelets 221, lactate 1.5. Sodium 140, potassium 4.3, chloride 101, bicarbonate 31, BUN 11, creatinine 0.9, glucose 156. LFTs normal except for AST at 39. Beta hCG negative. Troponin negative. IMAGING: CT abdomen and pelvis as above. Chest x-ray as above. CT head, no acute abnormality. Stable postsurgical changes from the left frontal extraaxial mass excision. MICROBIOLOGY: Blood culture pending. Coronavirus PCR pending. IMPRESSION: 1. Fever, could be from aspiration pneumonitis. 2. Nausea and vomiting. 3. Aspiration pneumonitis. 4. History of pulmonary embolism. 5. History of obstructive sleep apnea. 6. History of chronic myelogenous leukemia, status post bone marrow biopsy in 10/2019. 7. History of brain mass with recurrence awaiting palliative radiation. 8. History of recent colitis, discharged on Cipro and Flagyl. 9. ALLERGIES TO AZITHROMYCIN. 10. COVID-19 PUI. RECOMMENDATIONS: 1. Continue cefepime. 2. Maintain aspiration precaution. 3. If the patient does have diarrhea, check for C. diff with recent history of Cipro and Flagyl. 4. Maintain aspiration precaution. 5. Follow up labs and cultures. 6. Follow up COVID-19 PCR. 7. Continue supportive care. Thank you for allowing me to participate in this patient's care. If you have any questions, do not hesitate to contact me. FATOU SIMMONS MD DR: DEBBIE/violetta JOB#: [id number] / [id number] EDU
[2021-01-17 11:00] VITALS: BP 119/67
--- NOTE | 2021-01-17 12:01 | HP ---
ADMIT DATE: 01/17/2021 CHIEF COMPLAINT: Nausea, headache, vomiting. HISTORY OF PRESENT ILLNESS: The patient is a pleasant 50-year-old female, who has a large meningioma and leukemia. She was actually just discharged here a day or two ago, apparently was being treated for colitis and chest pain. Now, she has got some nausea and vomiting and a headache. We did a CAT scan of her chest, which is showing probable pneumonia. We suspect the headache could be from her meningioma. I discussed the case with ER physician. We are going to admit the patient and consult Infectious Disease and Hematology/Oncology. It should be noted that the patient rates her symptoms at 10/10. She has associated weakness, this has been occurring for several days' worth. PAST MEDICAL HISTORY: Meningioma, leukemia, pulmonary embolism, stroke, diabetes, hypertension, colitis, cholecystectomy, , hysterectomy, low back surgery, brain surgery, previous tobacco abuse. ALLERGIES: AZITHROMYCIN, CODEINE AND MORPHINE. FAMILY HISTORY: Diabetes. SOCIAL HISTORY: She quit smoking. No drinking or drugs. MEDICATIONS: Reviewed, please refer to the MRAD. REVIEW OF SYSTEMS: GENERAL: No history of weight change, weakness or fevers. SKIN: No bruising, hair changes or rashes. HEAD: She complains of headache. EYES: No blurred, double or loss of vision. NOSE AND THROAT: No history of nosebleeds, hoarseness or sore throat. HEART: No history of palpitations, chest pain or shortness of breath on exertion. LUNGS: Denies cough, hemoptysis, wheezing or shortness of breath. GASTROINTESTINAL: Denies changes in appetite, vomiting, diarrhea or constipation. She complains of nausea. GENITOURINARY: No history of frequency, urgency, hesitancy or nocturia. NEUROLOGIC: Denies history of numbness, tingling, or tremor. She complains of some weakness. PSYCHIATRIC: No history of panic, anxiety or depression. ENDOCRINE: No history of heat or cold intolerance, polyuria or polydipsia. EXTREMITIES: Denies muscle weakness, joint pain, pain on walking or stiffness. PHYSICAL EXAMINATION: VITALS: Within normal limits and are stable. GENERAL: No apparent distress. Alert and oriented. HEENT: Normocephalic atraumatic, external auditory canals are patent. EYES: Extraocular muscles are intact, pupils are equally round and reactive to light and accommodation. MUSCULOSKELETAL: Well developed, well nourished, good range of motion. ENDOCRINE: No thyromegaly was palpated. LYMPHATICS: No cervical chain or axillary nodes were noted. HEMATOPOIETIC: No bruising. NECK: Supple, no JVD, no thyromegaly was noted. LUNGS: Clear to auscultation in all lung whitten without rhonchi or wheezing. HEART: RRR, S1, S2 present. Peripheral pulses intact, no obvious murmurs were noted. ABDOMEN: Soft, nontender. Positive bowel sounds no organomegaly, normal bowel sounds. EXTREMITIES: Without any cyanosis, clubbing, or edema. Pedal pulses intact, Homans sign is negative. NEUROLOGIC: Normal speech, normal tone. A & O x 3, moves all extremities, no obvious focal deficits. PSYCHIATRIC: Normal affect, normal mood. Stable. SKIN: No ulcerations or rashes, good skin turgor, no jaundice. VASCULAR: Good capillary refill, neurovascular bundle appears to be intact. LABORATORY DATA: White count 8, hemoglobin 11, platelets 221. Electrolytes are pending. Troponin is 0. CT of the chest shows probable pneumonia, right greater than left. ASSESSMENT AND PLAN: Pneumonia and headache in a middle-aged female, who has multiple comorbidities. The patient has been admitted. We will consult Infectious Disease, consult Hematology/Oncology. IV antibiotics, O2 per nasal cannula, DuoNebs, aspiration precautions. We are rechecking her for COVID-19. Trend labs. PT/OT. We will consider Radiation Oncology consultation too if Hematology/Oncology agrees. VANGIE MAC DO DR: NAYLA/violetta JOB#: [id number] / [id number]
[2021-01-17] MEDS: IPRATROPIUM/ALBUTEROL 20/100mcg/INH INHALER. INH SCH ×3 (12:16→20:43)
--- NOTE | 2021-01-17 12:38 | PDOC2 ---
CONSULT Date of Consult Date of Consult DATE: 01/17/21 TIME: 12:27 Reason for Consult Reason for Consult: Chronic myelogenous leukemia Referring Physician Referring Physician: Dr. Huynh Identification/Chief Complaint Chief Complaint Headaches Source Source: Chart review, Patient History of Present Illness Reason for Visit: Vero Funez is a 50-year-old female with chronic myelogenous leukemia, antiphospholipid syndrome and meningioma who has been admitted to the hospital for further evaluation and management of severe headache. Vero was recently hospitalized at [facility] for similar symptoms of headache. She was diagnosed with meningioma in 2018 when she similarly presented with headache, right-sided neck and mental status changes. Brain MRI obtained in October 2019 showed an enhancing left parietal extra-axial mass measuring 3.8 x 3.9 x 3.3 cm. She underwent meningioma resection on 11/12/2019. Pathology showed meningioma, microcystic variant, WHO grade 1, no atypia and, no invasion into brain parenchyma and a few foci of extramedullary trilineage hematopoiesis. Repeat brain MRI obtained during her recent hospitalization in December 2020 showed postoperative changes of previous left parietal craniotomy for resection of underlying extra-axial mass. More concerningly, increased left parafalcine lobulated enhancing lesion measuring 3.0 x 2.0 x 2.3 cm was seen, with thickening and enhancement extending along the falx, increased mass effect on the adjacent frontal parietal lobe. She was seen by radiation oncology and radiotherapy has been planned. He has been readmitted with similar symptoms of headache she reports a 10 out of 10. Vero's medical history is also pertinent for chronic myelogenous leukemia which she follows with Dr. Laverne Yousif. She had been diagnosed in October 2019. She initially began dasatinib in October 2019 but stopped it in July 2020 due to development of pulmonary hypertension. She had subsequently switched to Gleevec and has tolerated Gleevec well. Her most recent BCR ABL PCR in October 2020 showed undetectable BCR ABL fusion product. Past Medical History Cardiovascular: HTN, Hyperlipidemia, Other Pulmonary: Asthma, Pulmonary embolus, Other CENTRAL NERVOUS SYSTEM: Periperal neuropathy, Other GI: Peptic Ulcer disease, Other Heme/Onc: Cancer Hepatobiliary: No pertinent hx Psych: Anxiety, Depression, Other Musculoskeletal: low back pain Rheumatologic: No pertinent hx Infectious disease: No pertinent hx Renal/: Other Endocrine: Diabetes Past Surgical History Past Surgical History: Appendectomy, Cholecystectomy, , Hysterectomy, Other Family History Family History: Cancer, Coronary Artery Disease, Hypertension Social History ALCOHOL: occassional Drugs: None Lives: with Family Current Problem List Problem List Problems Medical Problems: (1) Headache Status: Acute (2) Nausea & vomiting Status: Acute (3) Pneumonia Status: Acute Current Medications Current Medications Current Medications Sodium Chloride 1,000 ml @ 0 mls/hr 1X ONCE IV Last administered on 01/16/21at 14:04; Start 01/16/21 at 12:30; Stop 01/16/21 at 12:31; Status DC Ondansetron HCl (Zofran) 4 mg 1X ONCE IM Last administered on 01/16/21at 14:04; Start 01/16/21 at 12:30; Stop 01/16/21 at 12:31; Status DC Ceftriaxone Sodium (Rocephin) 1 gm 1X ONCE IVP Last administered on 01/16/21at 14:02; Start 01/16/21 at 12:30; Stop 01/16/21 at 12:33; Status DC Vancomycin HCl 1.25 gm/Sodium Chloride 250 ml @ 166.667 mls/hr 1X ONCE IV ; Start 01/16/21 at 12:30; Stop 01/16/21 at 12:34; Status DC Vancomycin HCl 2 gm/Sodium Chloride 500 ml @ 250 mls/hr 1X ONCE IV Last administered on 01/16/21at 14:12; Start 01/16/21 at 12:45; Stop 01/16/21 at 14:44; Status DC Iohexol (Omnipaque 300 Mg/ml) 75 ml 1X ONCE IV ; Start 01/16/21 at 14:00; Stop 01/16/21 at 14:01; Status DC Info (CONTRAST GIVEN -- Rx MONITORING) 1 each PRN DAILY PRN MC SEE COMMENTS; Start 01/16/21 at 14:00; Stop 01/18/21 at 13:59 Acetaminophen (Tylenol) 1,000 mg 1X ONCE PO Last administered on 01/16/21at 19:57; Start 01/16/21 at 14:45; Stop 01/16/21 at 14:46; Status DC Cefepime HCl (Maxipime) 1 gm BID IVP Last administered on 01/17/21at 09:31; Start 01/16/21 at 17:00 Ondansetron HCl (Zofran) 4 mg PRN Q8HRS PRN IV NAUSEA/VOMITING; Start 01/16/21 at 17:30; Stop 01/17/21 at 17:29 Oxycodone/ Acetaminophen (Percocet 7.5/ 325) 1 tab PRN Q4HRS PRN PO MODERATE PAIN 4-6 Last administered on 01/16/21at 23:58; Start 01/17/21 at 00:00 Fentanyl Citrate (Fentanyl 2ml Vial) 50 mcg PRN Q3HRS PRN IVP severe pain Last administered on 01/17/21at 02:56; Start 01/17/21 at 00:00 Acetaminophen (Tylenol) 650 mg PRN Q6HRS PRN PO Temp > 101.5F; Start 01/17/21 at 07:45 Albuterol Sulfate (Ventolin Neb Soln) 2.5 mg PRN Q6HRS PRN INH SHORTNESS OF BREATH; Start 01/17/21 at 07:42 Insulin Human Lispro (HumaLOG) 0-7 UNITS TIDWMEALS SQ ; Start 01/17/21 at 08:00 Dextrose (Dextrose 50%-Water Syringe) 12.5 gm PRN Q15MIN PRN IV SEE COMMENTS; Start 01/17/21 at 07:45 Apixaban (Eliquis) 5 mg BID PO Last administered on 01/17/21at 09:34; Start 01/17/21 at 09:00 Bisacodyl (Dulcolax Supp) 10 mg PRN DAILY PRN WI CONSTIPATION; Start 01/17/21 at 08:30 Calcium Carbonate/ Glycine (Oscal) 500 mg TIDAFTMEAL PO Last administered on 01/17/21at 12:15; Start 01/17/21 at 09:00 Cetirizine HCl (ZyrTEC) 10 mg DAILY PO Last administered on 01/17/21at 09:34; Start 01/17/21 at 09:00 Cyclosporine (Restasis) 1 drop BID OU Last administered on 01/17/21at 09:31; Start 01/17/21 at 09:00 Fluticasone Propionate (Flonase) 2 spray DAILY NS Last administered on 01/17/21at 09:31; Start 01/17/21 at 09:00 Metoprolol Tartrate (Lopressor) 50 mg HS PO ; Start 01/17/21 at 21:00 Pantoprazole Sodium (Protonix) 40 mg DAILYAC PO Last administered on 01/17/21 09:33; Start 01/17/21 at 09:00 Potassium Chloride (Klor-Con) 20 meq DAILYWBKFT PO Last administered on 09:34; Start 01/17/21 at 09:00 Sucralfate (Carafate) 1 gm BID PO Last administered on 01/17/21at 09:32; Start 01/17/21 at 09:00 Tramadol HCl (Ultram) 50 mg PRN Q8HRS PRN PO MILD PAIN 1-3 Last administered on 01/17/21 09:33; Start 01/17/21 at 08:30 Clonazepam (KlonoPIN) 1 mg HS PO ; Start 01/17/21 at 21:00 Non-Formulary Medication (Imatinib Mesylate (Gleevec)) 400 mg HS PO ; Start 01/17/21 at 21:00; Status UNV Metoprolol Tartrate (Lopressor) 100 mg DAILY08 PO Last administered on 01/17/21at 09:33; Start 01/17/21 at 09:00 Pregabalin (Lyrica) 150 mg TID PO Last administered on 01/17/21 09:32; Start 01/17/21 at 09:00 Atorvastatin Calcium (Lipitor) 80 mg DAILY PO Last administered on 01/17/21at 09:32; Start 01/17/21 at 09:00 Non-Formulary Medication (Tiotropium [place] (Spiriva)) 1 cap DAILY IH ; Start 01/17/21 at 09:00; Status UNV Albuterol/ Ipratropium (Combivent Respimat 20-100 Mcg) 1 puff RTQID INH Last administered on 01/17/21at 12:16; Start 01/17/21 at 12:00 Active Scripts Active Admelog (Insulin Lispro) 100 Unit/1 Ml Vial 8 Units SQ TIDWMEALS 30 Days Lantus (Insulin Glargine,Hum.rec.anlog) 100 Unit/1 Ml Vial 25 Unit SQ QHS 30 Days Pantoprazole Sodium (Pantoprazole Sodium) 40 Mg Tablet.dr 40 Mg PO DAILYAC 30 Days Polyethylene Glycol 3350 17 Gm Powd.pack 17 Gm PO PRN DAILY PRN 30 Days Bisacodyl 10 Mg Supp.rect 10 Mg [place] PRN DAILY PRN 30 Days Mag-Al Plus Xs Suspension (Mag Hydrox/Al Hydrox/Simeth) 30 Ml Oral.susp 30 Ml PO PRN Q3HRS PRN 10 Days Klor-Con M20 (Potassium Chloride) 20 Meq Tab.er.prt 20 Meq PO DAILYWBKFT 14 Days Oyster Shell Calcium (Calcium Carbonate) 500 Mg Tablet 500 Mg PO TIDAFTMEAL 30 Days Acetaminophen 325 Mg Tablet 650 Mg PO PRN Q6HRS PRN 30 Days Percocet 7.5-325 Mg Tablet (Oxycodone/Acetaminophen) 1 Each Tablet 1 Tab PO PRN Q8HRS PRN 14 Days Dicyclomine Hcl 10 Mg Capsule 10 Mg PO PRN QID PRN 14 Days Tramadol Hcl 50 Mg Tablet 50 Mg PO PRN Q8HRS PRN Reported Gleevec (Imatinib Mesylate) 400 Mg Tablet 400 Mg PO HS Spiriva (Tiotropium [place]ye) 18 Mcg Cap.w.dev 1 Cap IH DAILY Klonopin (Clonazepam) 1 Mg Tablet 1 Tab PO HS Metoprolol Tartrate 50 Mg Tablet 1 Tab PO HS Metoprolol Tartrate 100 Mg Tablet 1 Tab PO DAILY08 Eliquis (Apixaban) 5 Mg Tablet 5 Mg PO BID Lyrica (Pregabalin) 150 Mg Capsule 1 Cap PO TID Crestor (Rosuvastatin Calcium) 40 Mg Tablet 0.5 Tab PO DAILY Restasis (Cyclosporine) 1 Each Droperette 1 Drop EACHEYE BID Proair Hfa Inhaler (Albuterol Sulfate) 8.5 Gm Hfa.aer.ad 1 Puff INH PRN Q6HRS PRN Ondansetron Hcl 4 Mg Tablet 2 Tab PO PRN Q8HRS PRN Fluticasone Propionate Nasal [place] (Fluticasone Propionate) 16 Gm [place].susp 2 [place] NS DAILY Carafate (Sucralfate) 1 Gm Tablet 1 Tab PO BID Meds not given this hospital admission. May resume home medications as approved by Physician. MAY TAKE WHEN AVAILABLE Zyrtec (Cetirizine Hcl) 10 Mg Tablet 1 Tab PO DAILY Allergies Allergies: Coded Allergies: azithromycin (Verified Allergy, Intermediate, 10/12/19) codeine (Verified Allergy, Intermediate, 05/06/17) morphine (Verified Allergy, Intermediate, 11/01/19) Tolerates hydromorphone and oxycodone I S O L A T I O N *CONTACT* (Verified Allergy, Unknown, 11/16/19) ESBL ROS General: YES: Fatigue, Malaise PSYCHOLOGICAL ROS: No: Hallucinations, Hostility Eyes: Yes Eye Pain; No Itchy Eyes HEENT: YES: Heacaches, Visual Changes ALLERGY AND IMMUNOLOGY: No: Nasal Congestion, Post Nasal Drip Hematological and Lymphatic: No: Pallor ENDOCRINE: YES: Malaise/lethargy Respiratory: No: Shortness of breath Cardiovascular: No Edema Gastrointestinal: No Constipation Musculoskeletal: No Muscle Pain Neurological: No Impaired Coord/balance, No Seizures Skin: No Mole Changes Physical Exam General: Alert, Oriented X3 HEENT: Atraumatic, PERRLA Heart: Regular rate, Normal S1 Abdomen: Normal bowel sounds, Soft Extremities: No clubbing Psych/Mental Status: Mental status NL MUSCULOSKELETAL: No deformity Vitals VITALS Vital Signs Date Time Temp Pulse Resp B/P (MAP) Pulse Ox O2 Delivery O2 Flow Rate FiO2 01/17/21 11:00 98.3 82 20 119/67 (84) 97 Room Air 98.3 01/17/21 07:00 2.0 Labs Labs Laboratory Tests Test 01/16/21 12:09 01/16/21 12:54 01/16/21 13:10 01/16/21 21:22 Glucose (Fingerstick) 118 mg/dL (70-99) 134 mg/dL (70-99) Urine Collection Type U cath Urine Color Yellow Urine Clarity Clear Urine pH 7.0 (<5.0-8.0) Urine Specific [place] 1.020 (1.000-1.030) Urine Protein Negative mg/dL (NEG-TRACE) Urine Glucose (UA) Negative mg/dL (NEG) Urine Ketones (Stick) Negative mg/dL (NEG) Urine Blood Negative (NEG) Urine Nitrite Negative (NEG) Urine Bilirubin Negative (NEG) Urine Urobilinogen Dipstick 0.2 mg/dL (0.2 mg/dL) Urine Leukocyte Esterase Negative (NEG) Urine RBC 1-2 /HPF (0-2) Urine WBC 1-4 /HPF (0-4) Urine Transitional Epithelial Cells Occ /LPF Urine Bacteria 0 /HPF (0-FEW) White Blood Count 8.4 x10^3/uL (4.0-11.0) Red Blood Count 3.73 x10^6/uL (3.50-5.40) Hemoglobin 11.7 g/dL (12.0-15.5) Hematocrit 35.7 % (36.0-47.0) Mean Corpuscular Volume 96 fL (79-100) Mean Corpuscular Hemoglobin 31 pg (25-35) Mean Corpuscular Hemoglobin Concent 33 g/dL (31-37) Red Cell Distribution Width 14.4 % (11.5-14.5) Platelet Count 221 x10^3/uL (140-400) Neutrophils (%) (Auto) 87 % (31-73) Lymphocytes (%) (Auto) 9 % (24-48) Monocytes (%) (Auto) 3 % (0-9) Eosinophils (%) (Auto) 1 % (0-3) Basophils (%) (Auto) 0 % (0-3) Neutrophils # (Auto) 7.3 x10^3/uL (1.8-7.7) Lymphocytes # (Auto) 0.7 x10^3/uL (1.0-4.8) Monocytes # (Auto) 0.3 x10^3/uL (0.0-1.1) Eosinophils # (Auto) 0.0 x10^3/uL (0.0-0.7) Basophils # (Auto) 0.0 x10^3/uL (0.0-0.2) Segmented Neutrophils % 90 % (35-66) Lymphocytes % 9 % (24-48) Eosinophils % 1 % (0-5) Platelet Estimate Adequate (ADEQUATE) Large Platelets Occ Polychromasia Slight Anisocytosis Slight Macrocytosis Slight Sodium Level 140 mmol/L (136-145) Potassium Level 4.3 mmol/L (3.5-5.1) Chloride Level 101 mmol/L (98-107) Carbon Dioxide Level 31 mmol/L (21-32) Anion Gap 8 (6-14) Blood Urea Nitrogen 11 mg/dL (7-20) Creatinine 0.9 mg/dL (0.6-1.0) Estimated GFR (Cockcroft-Gault) 66.8 BUN/Creatinine Ratio 12 (6-20) Glucose Level 156 mg/dL (70-99) Lactic Acid Level 1.5 mmol/L (0.4-2.0) Calcium Level 8.1 mg/dL (8.5-10.1) Total Bilirubin 0.5 mg/dL (0.2-1.0) Aspartate Amino Transf (AST/SGOT) 39 U/L (15-37) Alanine Aminotransferase (ALT/SGPT) 28 U/L (14-59) Alkaline Phosphatase 80 U/L (46-116) Troponin I Quantitative < 0.017 ng/mL (0.000-0.055) Total Protein 7.0 g/dL (6.4-8.2) Albumin 3.5 g/dL (3.4-5.0) Albumin/Globulin Ratio 1.0 (1.0-1.7) Serum Test, Qualitative Negative (NEG) Salicylates Level < 2.8 mg/dL (2.8-20.0) Salicylate Last Dose Date Unk Salicylate Last Dose Time Unk Acetaminophen Level < 2.0 mcg/ml (10-30) Acetaminophen Last Dose Date Unk Acetaminophen Last Dose Time Unk Ethyl Alcohol Level < 10 mg/dL (0-10) Test 01/17/21 06:57 01/17/21 10:30 Glucose (Fingerstick) 106 mg/dL (70-99) 125 mg/dL (70-99) Laboratory Tests Test 01/16/21 12:54 01/16/21 13:10 01/16/21 21:22 01/17/21 06:57 Urine Collection Type U cath Urine Color Yellow Urine Clarity Clear Urine pH 7.0 (<5.0-8.0) Urine Specific [place] 1.020 (1.000-1.030) Urine Protein Negative mg/dL (NEG-TRACE) Urine Glucose (UA) Negative mg/dL (NEG) Urine Ketones (Stick) Negative mg/dL (NEG) Urine Blood Negative (NEG) Urine Nitrite Negative (NEG) Urine Bilirubin Negative (NEG) Urine Urobilinogen Dipstick 0.2 mg/dL (0.2 mg/dL) Urine Leukocyte Esterase Negative (NEG) Urine RBC 1-2 /HPF (0-2) Urine WBC 1-4 /HPF (0-4) Urine Transitional Epithelial Cells Occ /LPF Urine Bacteria 0 /HPF (0-FEW) White Blood Count 8.4 x10^3/uL (4.0-11.0) Red Blood Count 3.73 x10^6/uL (3.50-5.40) Hemoglobin 11.7 g/dL (12.0-15.5) Hematocrit 35.7 % (36.0-47.0) Mean Corpuscular Volume 96 fL (79-100) Mean Corpuscular Hemoglobin 31 pg (25-35) Mean Corpuscular Hemoglobin Concent 33 g/dL (31-37) Red Cell Distribution Width 14.4 % (11.5-14.5) Platelet Count 221 x10^3/uL (140-400) Neutrophils (%) (Auto) 87 % (31-73) Lymphocytes (%) (Auto) 9 % (24-48) Monocytes (%) (Auto) 3 % (0-9) Eosinophils (%) (Auto) 1 % (0-3) Basophils (%) (Auto) 0 % (0-3) Neutrophils # (Auto) 7.3 x10^3/uL (1.8-7.7) Lymphocytes # (Auto) 0.7 x10^3/uL (1.0-4.8) Monocytes # (Auto) 0.3 x10^3/uL (0.0-1.1) Eosinophils # (Auto) 0.0 x10^3/uL (0.0-0.7) Basophils # (Auto) 0.0 x10^3/uL (0.0-0.2) Segmented Neutrophils % 90 % (35-66) Lymphocytes % 9 % (24-48) Eosinophils % 1 % (0-5) Platelet Estimate Adequate (ADEQUATE) Large Platelets Occ Polychromasia Slight Anisocytosis Slight Macrocytosis Slight Sodium Level 140 mmol/L (136-145) Potassium Level 4.3 mmol/L (3.5-5.1) Chloride Level 101 mmol/L (98-107) Carbon Dioxide Level 31 mmol/L (21-32) Anion Gap 8 (6-14) Blood Urea Nitrogen 11 mg/dL (7-20) Creatinine 0.9 mg/dL (0.6-1.0) Estimated GFR (Cockcroft-Gault) 66.8 BUN/Creatinine Ratio 12 (6-20) Glucose Level 156 mg/dL (70-99) Lactic Acid Level 1.5 mmol/L (0.4-2.0) Calcium Level 8.1 mg/dL (8.5-10.1) Total Bilirubin 0.5 mg/dL (0.2-1.0) Aspartate Amino Transf (AST/SGOT) 39 U/L (15-37) Alanine Aminotransferase (ALT/SGPT) 28 U/L (14-59) Alkaline Phosphatase 80 U/L (46-116) Troponin I Quantitative < 0.017 ng/mL (0.000-0.055) Total Protein 7.0 g/dL (6.4-8.2) Albumin 3.5 g/dL (3.4-5.0) Albumin/Globulin Ratio 1.0 (1.0-1.7) Serum Test, Qualitative Negative (NEG) Salicylates Level < 2.8 mg/dL (2.8-20.0) Salicylate Last Dose Date Unk Salicylate Last Dose Time Unk Acetaminophen Level < 2.0 mcg/ml (10-30) Acetaminophen Last Dose Date Unk Acetaminophen Last Dose Time Unk Ethyl Alcohol Level < 10 mg/dL (0-10) Glucose (Fingerstick) 134 mg/dL (70-99) 106 mg/dL (70-99) Test 01/17/21 10:30 Glucose (Fingerstick) 125 mg/dL (70-99) Assessment/Plan Assessment/Plan Assessment: Chronic myelogenous leukemia, in chronic phase Meningioma, WHO grade 1, recurrent Intractable headache secondary to meningioma Community-acquired pneumonia Recommendations: -Continue with imatinib 400 mg daily. Patient may take own supply -Continue with radiation with Dr. Norris. Anticipate clinical improvement from radiotherapy with meningioma -Outpatient follow-up with hematology. -Rest per Dr. Amina Obrien MD Medical Oncology/Hematology Ph: [phone] KIARA OBRIEN MD Jan 17, 2021 12:37
[2021-01-17] MEDS: oxyCODONE/APAP 7.5/325 1 TAB TABLET PO PRN ×3 (13:02→21:09)
[2021-01-17 15:00] VITALS: BP 114/58
--- NOTE | 2021-01-17 17:15 | RAD ---
Exam: Chest one view INDICATION: PICC line verification TECHNIQUE: Frontal view of the chest Comparisons: 01/16/2021 FINDINGS: Left-sided PICC with tip coiled at the expected area of the upper SVC, may be within azygos branch. Heart is mildly enlarged. Pulmonary vessels are within normal limits. The lung and pleural spaces are clear. IMPRESSION: Left-sided PICC with tip coiled at the SVC, tip may be within the azygos branch. Recommend adjustment . Electronically signed by: Conrado Crocker MD (01/17/2021 5:13 PM) TRISTAN
[2021-01-17 19:00] VITALS: BP 108/60
--- NOTE | 2021-01-17 19:11 | NUR ---
Left message for Leo for routine consult by this RN.
[2021-01-17] MEDS: clonazePAM 0.5 MG TABLET PO SCH (20:57)
[2021-01-17] MEDS: NON FORMULARY ITEM (Imatinib Mesylate (Gleevec) 400 MG) PO SCH (20:58)
[2021-01-17 23:00] VITALS: BP 117/64
[2021-01-18] MEDS: oxyCODONE/APAP 7.5/325 1 TAB TABLET PO PRN ×5 (01:33→23:07)
[2021-01-18] MEDS: fentaNYL PF VIAL 100 MCG/2 ML VIAL IVP PRN ×3 (01:34→21:13)
[2021-01-18 03:00] VITALS: BP 144/75
[2021-01-18 07:00] VITALS: BP 95/63
[2021-01-18] MEDS: INSULIN LISPRO 300 UNITS/3 ML VIAL. SQ SCH ×3 (08:00→17:24)
[2021-01-18] MEDS: IPRATROPIUM/ALBUTEROL 20/100mcg/INH INHALER. INH SCH ×4 (08:45→21:02)
[2021-01-18] MEDS: FLUTICASONE 50MCG/NASAL SPRAY 16GM BOTTLE. NS SCH (08:45)
[2021-01-18] MEDS: PREGABALIN 75 MG CAPSULE PO SCH ×3 (08:46→21:03)
[2021-01-18] MEDS: CEFEPIME HCL IV Push 1 GM VIAL. IVP SCH ×2 (08:46→21:03)
[2021-01-18] MEDS: ATORVASTATIN CALCIUM 40 MG TABLET. PO SCH (08:46)
[2021-01-18] MEDS: SUCRALFATE 1 GM TABLET. PO SCH ×2 (08:47→21:03)
[2021-01-18] MEDS: METOPROLOL TART IMMED RELEASE 50 MG TABLET. PO SCH ×2 (08:47→21:02)
[2021-01-18] MEDS: POTASSIUM CHLORIDE 20 MEQ TABLET.ER. PO SCH (08:47)
[2021-01-18] MEDS: PANTOPRAZOLE 40 MG TABLET.DR. PO SCH (08:47)
[2021-01-18] MEDS: CALCIUM CARBONATE 500 MG TABLET PO SCH ×3 (08:47→17:22)
[2021-01-18] MEDS: APIXABAN 5 MG TABLET. PO SCH ×2 (08:47→21:03)
[2021-01-18] MEDS: CETIRIZINE HCL 10 MG TABLET. PO SCH (08:47)
[2021-01-18] MEDS: cycloSPORINE 0.05% OPHTH DROPERETTE. OU SCH ×2 (08:48→21:02)
--- NOTE | 2021-01-18 09:54 | PDOC ---
Infectious Disease Note Subjective: Subjective Patient continues to have headache which she says is chronic Denies any fever chills Has some nausea No vomiting Has loose bowel movements Vital Signs: Vital Signs Vital Signs Date Time Temp Pulse Resp B/P (MAP) Pulse Ox O2 Delivery O2 Flow Rate FiO2 01/18/21 08:49 Room Air 01/18/21 08:47 77 95/63 01/18/21 07:00 97.2 18 90 97.2 01/17/21 07:00 2.0 Physical Exam: PHYSICAL EXAM GENERAL: Alert, awake female, talking on phone, in no acute distress, on nasal O2. HEENT: Normocephalic, atraumatic. Oral mucosa moist. No thrush. NECK: Supple, no JVD. LUNGS: Decreased breath sounds at the bases, otherwise clear. No wheezing. HEART: S1, S2. No gallops or murmurs. ABDOMEN: Soft, mild diffuse tenderness present. No rebound, no guarding. EXTREMITIES: No edema, no cyanosis. DERMATOLOGIC: Warm, dry. No generalized rash. NEUROLOGIC: Alert, oriented x 3. Weakness of the right upper and lower extremity, which is baseline from previous is chronic. PSYCHIATRIC: Calm and cooperative. Medications: Inpatient Meds: Medications reviewed. Labs: Lab Laboratory Tests Test 01/17/21 10:30 01/17/21 17:02 01/17/21 21:02 01/18/21 06:57 Glucose (Fingerstick) 125 mg/dL (70-99) 160 mg/dL (70-99) 130 mg/dL (70-99) 113 mg/dL (70-99) Objective: Assessment: 1. Fever, could be from aspiration pneumonitis. 2. Nausea and vomiting. 3. Aspiration pneumonitis. 4. History of pulmonary embolism. 5. History of obstructive sleep apnea. 6. History of chronic myelogenous leukemia, status post bone marrow biopsy in 10/2019. 7. History of brain mass with recurrence awaiting palliative radiation. 8. History of recent colitis, discharged on Cipro and Flagyl. 9. ALLERGIES TO AZITHROMYCIN. 10. COVID-19 PUI. Plan: Plan of Care Continue cefepime. Maintain aspiration precaution. If the patient does have diarrhea, check for C. diff Follow up labs and cultures. Follow up COVID-19 PCR. Continue supportive care. FATOU SIMMONS MD Jan 18, 2021 09:54
[2021-01-18 11:00] VITALS: BP 141/66
[2021-01-18] MEDS: traMADol 50 MG TABLET PO PRN ×2 (11:15→19:47)
--- NOTE | 2021-01-18 11:57 | PDOC ---
[employer] PROGRESS NOTE Date of Service DOS: DATE: 01/18/21 TIME: 11:41 Chief Complaint Chief Complaint Nausea Deadache Vomiting Aspiration pneumonia History of Present Illness History of Present Illness 01/18- Seen pt in between meetings with other staff. Pt is laying comfortably in bed. Discussed plan with staff, pain management. Pt states her headache was acute with the episode of vommiting but has noticed persistent episodes of lightheadedness for the past 2wks. Denies any progressive neurological symptoms on the right side of body as this never really returned. The head ct was negative for any acute pathology, but still has the long-term moieties of previous meningioma and surgery. Denies heartburn, and is due for a chemotherapy treatment for the Leukemia in january. Is currently on RA but takes oxygen at night. The patient is a pleasant 50-year-old female, who has a large meningioma and leukemia. She was actually just discharged here a day or two ago, apparently was being treated for colitis and chest pain. Now, she has got some nausea and vomiting and a headache. We did a CAT scan of her chest, which is showing probable pneumonia. We suspect the headache could be from her meningioma. I discussed the case with ER physician. We are going to admit the patient and consult Infectious Disease and Hematology/Oncology. It should be noted that the patient rates her symptoms at 10/10. She has associated weakness, this has been occurring for several days' worth. Vitals/I&O Vitals/I&O: Vital Signs Date Time Temp Pulse Resp B/P (MAP) Pulse Ox O2 Delivery O2 Flow Rate FiO2 01/18/21 11:15 90 Room Air 2.0 01/18/21 11:00 97.3 81 18 141/66 (91) 97.3 I & O 01/17/21 01/17/21 01/18/21 15:00 23:00 07:00 Intake Total 0 ml 700 ml Output Total 300 ml Balance 0 ml 400 ml Physical Exam Physical Exam: GENERAL: Alert, awake female, talking on phone, in no acute distress, on nasal O2. HEENT: Normocephalic, atraumatic. Oral mucosa moist. No thrush. NECK: Supple, no JVD. LUNGS: Decreased breath sounds at the bases, otherwise clear. No wheezing. HEART: S1, S2. No gallops or murmurs. ABDOMEN: Soft, mild diffuse tenderness present. No rebound, no guarding. EXTREMITIES: No edema, no cyanosis. DERMATOLOGIC: Warm, dry. No generalized rash. NEUROLOGIC: Alert, oriented x 3. Weakness of the right upper and lower extremity, which is baseline from previous is chronic. PSYCHIATRIC: Calm and cooperative. General: Alert, Oriented X3 Heart: Regular rate, Normal S1 Lungs: Clear, Wheezing Abdomen: Normal bowel sounds, Soft Extremities: No clubbing Skin: No rashes, No breakdown Labs Labs: Laboratory Tests Test 01/17/21 17:02 01/17/21 21:02 01/18/21 06:57 Glucose (Fingerstick) 160 mg/dL (70-99) 130 mg/dL (70-99) 113 mg/dL (70-99) Review of Systems Review of Systems: No new complaints Assessment and Plan Assessmemt and Plan Assessment Aspiration Pneumonia Headache in a middle-aged female, who has multiple comorbidities Covid negative Plan IV antibiotics Consider neuro consult Appreciate ID, Heme/onc consults Aspiration precautions O2 management PT/OT Home meds Cardiac monitoring Full Code Comment Review of Relevant I have reviewed the following items mustapha (where applicable) has been applied. Medications: Current Medications Medications (Trade) Dose Ordered Sig/Nikki Route PRN Reason Start Time Stop Time Status Last Admin Dose Admin Metoprolol Tartrate (Lopressor) 50 mg HS PO 01/17/21 21:00 01/17/21 20:56 Clonazepam (KlonoPIN) 1 mg HS PO 01/17/21 21:00 01/17/21 20:57 Albuterol/ Ipratropium (Combivent Respimat 20-100 Mcg) 1 puff RTQID INH 01/17/21 12:00 01/18/21 08:45 Justifications for Admission Other Justification Chest pain, hematochezia VANGIE MAC III DO Jan 18, 2021 11:57 am
[2021-01-18] MEDS: ANTI-COAG MONITOR BY PHARMACY. MC PRN (14:11)
[2021-01-18 15:00] VITALS: BP 135/69
[2021-01-18 19:00] VITALS: BP 121/69
[2021-01-18] MEDS: NON FORMULARY ITEM (Imatinib Mesylate (Gleevec) 400 MG) PO SCH (21:03)
[2021-01-18] MEDS: clonazePAM 0.5 MG TABLET PO SCH (21:03)
[2021-01-18 23:00] VITALS: BP 153/82
[2021-01-19] VITALS (7 sets, daily range): BP systolic 109–139; BP diastolic 57–86
[2021-01-19] MEDS: oxyCODONE/APAP 7.5/325 1 TAB TABLET PO PRN ×2 (03:36→08:55)
[2021-01-19] MEDS: fentaNYL PF VIAL 100 MCG/2 ML VIAL IVP PRN ×2 (05:48→12:58)
--- NOTE | 2021-01-19 06:44 | NUR ---
Pt is COVID negative, however has had a recent ESBL in urine requiring pt to be in contact precautions.
[2021-01-19] MEDS: INSULIN LISPRO 300 UNITS/3 ML VIAL. SQ SCH ×3 (08:00→17:08)
[2021-01-19] MEDS: cycloSPORINE 0.05% OPHTH DROPERETTE. OU SCH ×2 (08:05→21:11)
[2021-01-19] MEDS: FLUTICASONE 50MCG/NASAL SPRAY 16GM BOTTLE. NS SCH (08:43)
[2021-01-19] MEDS: PREGABALIN 75 MG CAPSULE PO SCH ×3 (08:50→21:10)
[2021-01-19] MEDS: POTASSIUM CHLORIDE 20 MEQ TABLET.ER. PO SCH (08:51)
[2021-01-19] MEDS: METOPROLOL TART IMMED RELEASE 50 MG TABLET. PO SCH ×2 (08:51→21:10)
[2021-01-19] MEDS: CALCIUM CARBONATE 500 MG TABLET PO SCH ×3 (08:52→17:06)
[2021-01-19] MEDS: SUCRALFATE 1 GM TABLET. PO SCH ×2 (08:52→21:09)
[2021-01-19] MEDS: APIXABAN 5 MG TABLET. PO SCH ×2 (08:53→21:10)
[2021-01-19] MEDS: ATORVASTATIN CALCIUM 40 MG TABLET. PO SCH (08:53)
[2021-01-19] MEDS: CETIRIZINE HCL 10 MG TABLET. PO SCH (08:53)
[2021-01-19] MEDS: PANTOPRAZOLE 40 MG TABLET.DR. PO SCH (08:53)
[2021-01-19] MEDS: CEFEPIME HCL IV Push 1 GM VIAL. IVP SCH (08:54)
[2021-01-19] MEDS: IPRATROPIUM/ALBUTEROL 20/100mcg/INH INHALER. INH SCH ×2 (08:55→21:08)
[2021-01-19 09:21] LABS: BASO % 1 % (0-3); EOS # 0.1 x10^3/uL (0.0-0.7); EOS % 3 % (0-3); HEMATOCRIT 30.1 % (36.0-47.0); HEMOGLOBIN 9.9 g/dL (12.0-15.5); LYMPH # 1.9 x10^3/uL (1.0-4.8); LYMPH % 40 % (24-48); MEAN CORPUSCULAR HEMOGLOBIN 32 pg (25-35); MEAN CORPUSCULAR HGB CONC 33 g/dL (31-37); MEAN CORPUSCULAR VOLUME 96 fL (79-100); MONO # 0.5 x10^3/uL (0.0-1.1); MONO % 10 % (0-9); NEUT # 2.1 x10^3/uL (1.8-7.7); NEUT % 46 % (31-73); PLATELET COUNT 157 x10^3/uL (140-400); RED BLOOD COUNT 3.15 x10^6/uL (3.50-5.40); RED CELL DISTRIBUTION WIDTH 14.3 % (11.5-14.5); WHITE BLOOD COUNT 4.6 x10^3/uL (4.0-11.0)
[2021-01-19 09:42] LABS: CALCIUM 7.9 mg/dL (8.5-10.1); CREATININE 0.8 mg/dL (0.6-1.0); GFR 76.6; POTASSIUM 3.3 mmol/L (3.5-5.1)
--- NOTE | 2021-01-19 10:07 | NUR ---
Placed routine consult to Dr. Moran for constant headaches not decreasing in pain.
--- NOTE | 2021-01-19 11:00 | NUR ---
transfer from . hx of stroke in 11/12 with right side residual. r hand is contracted and had right foot drop. skin is intact. she has headache ; she is rating the pain a 10/10. turns to be placed on bedpan. urine is clear yellow. Dr. Man here. awaiting Dr. Botello for consult on headache. high probability to be discharged to home.
--- NOTE | 2021-01-19 11:09 | PDOC ---
Infectious Disease Note Subjective Subjective pt is feeling good, ready to go home ROS ROS no n/v/d/sob Vital Sign Vital Signs Vital Signs Date Time Temp Pulse Resp B/P (MAP) Pulse Ox O2 Delivery O2 Flow Rate FiO2 01/19/21 10:20 Room Air 01/19/21 08:51 76 134/75 01/19/21 06:42 98.6 20 93 98.6 01/19/21 03:20 2.0 Physical Exam PHYSICAL EXAM GENERAL: Alert, awake female, talking on phone, in no acute distress, on nasal O2. HEENT: Normocephalic, atraumatic. Oral mucosa moist. No thrush. NECK: Supple, no JVD. LUNGS: Decreased breath sounds at the bases, otherwise clear. No wheezing. HEART: S1, S2. No gallops or murmurs. ABDOMEN: Soft, mild diffuse tenderness present. No rebound, no guarding. EXTREMITIES: No edema, no cyanosis. DERMATOLOGIC: Warm, dry. No generalized rash. NEUROLOGIC: Alert, oriented x 3. Weakness of the right upper and lower extremity, which is baseline from previous is chronic. PSYCHIATRIC: Calm and cooperative. Labs Lab Laboratory Tests Test 01/18/21 13:17 01/18/21 16:32 01/18/21 20:34 01/19/21 07:35 Glucose (Fingerstick) 166 mg/dL (70-99) 159 mg/dL (70-99) 120 mg/dL (70-99) 113 mg/dL (70-99) Test 01/19/21 09:05 White Blood Count 4.6 x10^3/uL (4.0-11.0) Red Blood Count 3.15 x10^6/uL (3.50-5.40) Hemoglobin 9.9 g/dL (12.0-15.5) Hematocrit 30.1 % (36.0-47.0) Mean Corpuscular Volume 96 fL (79-100) Mean Corpuscular Hemoglobin 32 pg (25-35) Mean Corpuscular Hemoglobin Concent 33 g/dL (31-37) Red Cell Distribution Width 14.3 % (11.5-14.5) Platelet Count 157 x10^3/uL (140-400) Neutrophils (%) (Auto) 46 % (31-73) Lymphocytes (%) (Auto) 40 % (24-48) Monocytes (%) (Auto) 10 % (0-9) Eosinophils (%) (Auto) 3 % (0-3) Basophils (%) (Auto) 1 % (0-3) Neutrophils # (Auto) 2.1 x10^3/uL (1.8-7.7) Lymphocytes # (Auto) 1.9 x10^3/uL (1.0-4.8) Monocytes # (Auto) 0.5 x10^3/uL (0.0-1.1) Eosinophils # (Auto) 0.1 x10^3/uL (0.0-0.7) Basophils # (Auto) 0.0 x10^3/uL (0.0-0.2) Sodium Level 144 mmol/L (136-145) Potassium Level 3.3 mmol/L (3.5-5.1) Chloride Level 109 mmol/L (98-107) Carbon Dioxide Level 28 mmol/L (21-32) Anion Gap 7 (6-14) Blood Urea Nitrogen 6 mg/dL (7-20) Creatinine 0.8 mg/dL (0.6-1.0) Estimated GFR (Cockcroft-Gault) 76.6 Glucose Level 163 mg/dL (70-99) Calcium Level 7.9 mg/dL (8.5-10.1) Micro Microbiology 01/16/21 Blood Culture - Preliminary, Resulted NO GROWTH AFTER 2 DAYS Objective Assessment 1. Fever, could be from aspiration pneumonitis. 2. Nausea and vomiting. resolved 3. Aspiration pneumonitis. 4. History of pulmonary embolism. 5. History of obstructive sleep apnea. 6. History of chronic myelogenous leukemia, status post bone marrow biopsy in 10/2019. 7. History of brain mass with recurrence awaiting palliative radiation. 8. History of recent colitis, discharged on Cipro and Flagyl. 9. ALLERGIES TO AZITHROMYCIN. 10. COVID-19 PUI. Plan Plan of Care change cefepime. to augmentin Maintain aspiration precaution. Follow up labs and cultures. COVID-19 PCR. neg Continue supportive care. MAIDA SIMMONS MD Jan 19, 2021 11:09
--- NOTE | 2021-01-19 11:15 | NUR ---
Transferred patient with all belongings and cahrt. Gave report to Kim. APARICIO telemonitor.
[2021-01-19] MEDS: ANTI-COAG MONITOR BY PHARMACY. MC PRN (11:29)
--- NOTE | 2021-01-19 11:39 | PDOC ---
PROGRESS NOTES Date of Service: DATE: 01/19/21 TIME: 11:38 Chief Complaint Chief Complaint Nausea Deadache Vomiting Aspiration pneumonia History of Present Illness History of Present Illness 01/19, still headache, has celia lift and assist at home can try to DC later today Neuro eval to try to help with headaches, on percocet and fentanyl here, with some benefit 01/18- Seen pt in between meetings with other staff. Pt is laying comfortably in bed. Discussed plan with staff, pain management. Pt states her headache was acute with the episode of vommiting but has noticed persistent episodes of lightheadedness for the past 2wks. Denies any progressive neurological symptoms on the right side of body as this never really returned. The head ct was negative for any acute pathology, but still has the long-term moieties of previous meningioma and surgery. Denies heartburn, and is due for a chemotherapy treatment for the Leukemia in january. Is currently on RA but takes oxygen at night. The patient is a pleasant 50-year-old female, who has a large meningioma and leukemia. She was actually just discharged here a day or two ago, apparently was being treated for colitis and chest pain. Now, she has got some nausea and vomiting and a headache. We did a CAT scan of her chest, which is showing probable pneumonia. We suspect the headache could be from her meningioma. I discussed the case with ER physician. We are going to admit the patient and consult Infectious Disease and Hematology/Oncology. It should be noted that the patient rates her symptoms at 10/10. She has associated weakness, this has been occurring for several days' worth. Vitals Vitals Vital Signs Date Time Temp Pulse Resp B/P (MAP) Pulse Ox O2 Delivery O2 Flow Rate FiO2 01/19/21 11:00 98.6 79 16 109/57 (74) 99 Room Air 98.6 01/19/21 03:20 2.0 Physical Exam Physical Exam GENERAL: Alert, awake female, talking on phone, in no acute distress, on nasal O2. HEENT: Normocephalic, atraumatic. Oral mucosa moist. No thrush. NECK: Supple, no JVD. LUNGS: Decreased breath sounds at the bases, otherwise clear. No wheezing. HEART: S1, S2. No gallops or murmurs. ABDOMEN: Soft, mild diffuse tenderness present. No rebound, no guarding. EXTREMITIES: No edema, no cyanosis. DERMATOLOGIC: Warm, dry. No generalized rash. NEUROLOGIC: Alert, oriented x 3. Weakness of the right upper and lower extremity, which is baseline from previous is chronic. PSYCHIATRIC: Calm and cooperative. General: Alert, Oriented X3 Heart: Regular rate, Normal S1 Lungs: Clear, Wheezing Abdomen: Normal bowel sounds, Soft Extremities: No clubbing Skin: No rashes, No breakdown Labs LABS Laboratory Tests Test 01/18/21 13:17 01/18/21 16:32 01/18/21 20:34 01/19/21 07:35 Glucose (Fingerstick) 166 mg/dL (70-99) 159 mg/dL (70-99) 120 mg/dL (70-99) 113 mg/dL (70-99) Test 01/19/21 09:05 White Blood Count 4.6 x10^3/uL (4.0-11.0) Red Blood Count 3.15 x10^6/uL (3.50-5.40) Hemoglobin 9.9 g/dL (12.0-15.5) Hematocrit 30.1 % (36.0-47.0) Mean Corpuscular Volume 96 fL (79-100) Mean Corpuscular Hemoglobin 32 pg (25-35) Mean Corpuscular Hemoglobin Concent 33 g/dL (31-37) Red Cell Distribution Width 14.3 % (11.5-14.5) Platelet Count 157 x10^3/uL (140-400) Neutrophils (%) (Auto) 46 % (31-73) Lymphocytes (%) (Auto) 40 % (24-48) Monocytes (%) (Auto) 10 % (0-9) Eosinophils (%) (Auto) 3 % (0-3) Basophils (%) (Auto) 1 % (0-3) Neutrophils # (Auto) 2.1 x10^3/uL (1.8-7.7) Lymphocytes # (Auto) 1.9 x10^3/uL (1.0-4.8) Monocytes # (Auto) 0.5 x10^3/uL (0.0-1.1) Eosinophils # (Auto) 0.1 x10^3/uL (0.0-0.7) Basophils # (Auto) 0.0 x10^3/uL (0.0-0.2) Sodium Level 144 mmol/L (136-145) Potassium Level 3.3 mmol/L (3.5-5.1) Chloride Level 109 mmol/L (98-107) Carbon Dioxide Level 28 mmol/L (21-32) Anion Gap 7 (6-14) Blood Urea Nitrogen 6 mg/dL (7-20) Creatinine 0.8 mg/dL (0.6-1.0) Estimated GFR (Cockcroft-Gault) 76.6 Glucose Level 163 mg/dL (70-99) Calcium Level 7.9 mg/dL (8.5-10.1) Assessment and Plan Assessmemt and Plan Problems Medical Problems: (1) Headache Status: Acute (2) Nausea & vomiting Status: Acute (3) Pneumonia Status: Acute Comment Review of Relevant I have reviewed the following items mustapha (where applicable) has been applied. Labs Laboratory Tests Test 01/17/21 17:02 01/17/21 21:02 01/18/21 06:57 01/18/21 13:17 Glucose (Fingerstick) 160 mg/dL (70-99) 130 mg/dL (70-99) 113 mg/dL (70-99) 166 mg/dL (70-99) Test 01/18/21 16:32 01/18/21 20:34 01/19/21 07:35 01/19/21 09:05 Glucose (Fingerstick) 159 mg/dL (70-99) 120 mg/dL (70-99) 113 mg/dL (70-99) White Blood Count 4.6 x10^3/uL (4.0-11.0) Red Blood Count 3.15 x10^6/uL (3.50-5.40) Hemoglobin 9.9 g/dL (12.0-15.5) Hematocrit 30.1 % (36.0-47.0) Mean Corpuscular Volume 96 fL (79-100) Mean Corpuscular Hemoglobin 32 pg (25-35) Mean Corpuscular Hemoglobin Concent 33 g/dL (31-37) Red Cell Distribution Width 14.3 % (11.5-14.5) Platelet Count 157 x10^3/uL (140-400) Neutrophils (%) (Auto) 46 % (31-73) Lymphocytes (%) (Auto) 40 % (24-48) Monocytes (%) (Auto) 10 % (0-9) Eosinophils (%) (Auto) 3 % (0-3) Basophils (%) (Auto) 1 % (0-3) Neutrophils # (Auto) 2.1 x10^3/uL (1.8-7.7) Lymphocytes # (Auto) 1.9 x10^3/uL (1.0-4.8) Monocytes # (Auto) 0.5 x10^3/uL (0.0-1.1) Eosinophils # (Auto) 0.1 x10^3/uL (0.0-0.7) Basophils # (Auto) 0.0 x10^3/uL (0.0-0.2) Sodium Level 144 mmol/L (136-145) Potassium Level 3.3 mmol/L (3.5-5.1) Chloride Level 109 mmol/L (98-107) Carbon Dioxide Level 28 mmol/L (21-32) Anion Gap 7 (6-14) Blood Urea Nitrogen 6 mg/dL (7-20) Creatinine 0.8 mg/dL (0.6-1.0) Estimated GFR (Cockcroft-Gault) 76.6 Glucose Level 163 mg/dL (70-99) Calcium Level 7.9 mg/dL (8.5-10.1) Laboratory Tests Test 01/18/21 13:17 01/18/21 16:32 01/18/21 20:34 01/19/21 07:35 Glucose (Fingerstick) 166 mg/dL (70-99) 159 mg/dL (70-99) 120 mg/dL (70-99) 113 mg/dL (70-99) Test 01/19/21 09:05 White Blood Count 4.6 x10^3/uL (4.0-11.0) Red Blood Count 3.15 x10^6/uL (3.50-5.40) Hemoglobin 9.9 g/dL (12.0-15.5) Hematocrit 30.1 % (36.0-47.0) Mean Corpuscular Volume 96 fL (79-100) Mean Corpuscular Hemoglobin 32 pg (25-35) Mean Corpuscular Hemoglobin Concent 33 g/dL (31-37) Red Cell Distribution Width 14.3 % (11.5-14.5) Platelet Count 157 x10^3/uL (140-400) Neutrophils (%) (Auto) 46 % (31-73) Lymphocytes (%) (Auto) 40 % (24-48) Monocytes (%) (Auto) 10 % (0-9) Eosinophils (%) (Auto) 3 % (0-3) Basophils (%) (Auto) 1 % (0-3) Neutrophils # (Auto) 2.1 x10^3/uL (1.8-7.7) Lymphocytes # (Auto) 1.9 x10^3/uL (1.0-4.8) Monocytes # (Auto) 0.5 x10^3/uL (0.0-1.1) Eosinophils # (Auto) 0.1 x10^3/uL (0.0-0.7) Basophils # (Auto) 0.0 x10^3/uL (0.0-0.2) Sodium Level 144 mmol/L (136-145) Potassium Level 3.3 mmol/L (3.5-5.1) Chloride Level 109 mmol/L (98-107) Carbon Dioxide Level 28 mmol/L (21-32) Anion Gap 7 (6-14) Blood Urea Nitrogen 6 mg/dL (7-20) Creatinine 0.8 mg/dL (0.6-1.0) Estimated GFR (Cockcroft-Gault) 76.6 Glucose Level 163 mg/dL (70-99) Calcium Level 7.9 mg/dL (8.5-10.1) Microbiology 01/16/21 Blood Culture - Preliminary, Resulted NO GROWTH AFTER 2 DAYS Medications Current Medications Sodium Chloride 1,000 ml @ 0 mls/hr 1X ONCE IV Last administered on 01/16/21at 14:04; Start 01/16/21 at 12:30; Stop 01/16/21 at 12:31; Status DC Ondansetron HCl (Zofran) 4 mg 1X ONCE IM Last administered on 01/16/21at 14:04; Start 01/16/21 at 12:30; Stop 01/16/21 at 12:31; Status DC Ceftriaxone Sodium (Rocephin) 1 gm 1X ONCE IVP Last administered on 01/16/21at 14:02; Start 01/16/21 at 12:30; Stop 01/16/21 at 12:33; Status DC Vancomycin HCl 1.25 gm/Sodium Chloride 250 ml @ 166.667 mls/hr 1X ONCE IV ; Start 01/16/21 at 12:30; Stop 01/16/21 at 12:34; Status DC Vancomycin HCl 2 gm/Sodium Chloride 500 ml @ 250 mls/hr 1X ONCE IV Last administered on 01/16/21at 14:12; Start 01/16/21 at 12:45; Stop 01/16/21 at 14:44; Status DC Iohexol (Omnipaque 300 Mg/ml) 75 ml 1X ONCE IV ; Start 01/16/21 at 14:00; Stop 01/16/21 at 14:01; Status DC Info (CONTRAST GIVEN -- Rx MONITORING) 1 each PRN DAILY PRN MC SEE COMMENTS; Start 01/16/21 at 14:00; Stop 01/18/21 at 13:59; Status DC Acetaminophen (Tylenol) 1,000 mg 1X ONCE PO Last administered on 01/16/21at 19:57; Start 01/16/21 at 14:45; Stop 01/16/21 at 14:46; Status DC Cefepime HCl (Maxipime) 1 gm BID IVP Last administered on 01/19/21at 08:54; Start 01/16/21 at 17:00; Stop 01/19/21 at 11:10; Status DC Ondansetron HCl (Zofran) 4 mg PRN Q8HRS PRN IV NAUSEA/VOMITING; Start 01/16/21 at 17:30; Stop 01/17/21 at 17:29; Status DC Oxycodone/ Acetaminophen (Percocet 7.5/ 325) 1 tab PRN Q4HRS PRN PO MODERATE PAIN 4-6 Last administered on 01/19/21at 08:55; Start 01/17/21 at 00:00 Fentanyl Citrate (Fentanyl 2ml Vial) 50 mcg PRN Q3HRS PRN IVP severe pain Last administered on 01/19/21at 05:48; Start 01/17/21 at 00:00 Acetaminophen (Tylenol) 650 mg PRN Q6HRS PRN PO Temp > 101.5F; Start 01/17/21 at 07:45 Albuterol Sulfate (Ventolin Neb Soln) 2.5 mg PRN Q6HRS PRN INH SHORTNESS OF BREATH; Start 01/17/21 at 07:42 Insulin Human Lispro (HumaLOG) 0-7 UNITS TIDWMEALS SQ Last administered on 01/18/21 17:24; Start 01/17/21 at 08:00 Dextrose (Dextrose 50%-Water Syringe) 12.5 gm PRN Q15MIN PRN IV SEE COMMENTS; Start 01/17/21 at 07:45 Apixaban (Eliquis) 5 mg BID PO Last administered on 01/19/21 08:53; Start 01/17/21 at 09:00 Bisacodyl (Dulcolax Supp) 10 mg PRN DAILY PRN MA CONSTIPATION; Start 01/17/21 at 08:30 Calcium Carbonate/ Glycine (Oscal) 500 mg TIDAFTMEAL PO Last administered on 01/19/21 08:52; Start 01/17/21 at 09:00 Cetirizine HCl (ZyrTEC) 10 mg DAILY PO Last administered on 01/19/21 08:53; St art 01/17/21 at 09:00 Cyclosporine (Restasis) 1 drop BID OU Last administered on 01/18/21 21:02; Start 01/17/21 at 09:00 Fluticasone Propionate (Flonase) 2 spray DAILY NS Last administered on 01/19/21 08:43; Start 01/17/21 at 09:00 Metoprolol Tartrate (Lopressor) 50 mg HS PO Last administered on 01/18/21 21:02; Start 01/17/21 at 21:00 Pantoprazole Sodium (Protonix) 40 mg DAILYAC PO Last administered on 01/19/21 08:53; Start 01/17/21 at 09:00 Potassium Chloride (Klor-Con) 20 meq DAILYWBKFT PO Last administered on 01/19/21 08:51; Start 01/17/21 at 09:00 Sucralfate (Carafate) 1 gm BID PO Last administered on 01/19/21 08:52; Start 01/17/21 at 09:00 Tramadol HCl (Ultram) 50 mg PRN Q8HRS PRN PO MILD PAIN 1-3 Last administered on 01/18/21at 19:47; Start 01/17/21 at 08:30 Clonazepam (KlonoPIN) 1 mg HS PO Last administered on 01/18/21at 21:03; Start 01/17/21 at 21:00 Non-Formulary Medication (Imatinib Mesylate (Gleevec)) 400 mg HS PO ; Start 01/17/21 at 21:00; Status UNV Metoprolol Tartrate (Lopressor) 100 mg DAILY08 PO Last administered on 01/19/21at 08:51; Start 01/17/21 at 09:00 Pregabalin (Lyrica) 150 mg TID PO Last administered on 01/19/21at 08:50; Start 01/17/21 at 09:00 Atorvastatin Calcium (Lipitor) 80 mg DAILY PO Last administered on 01/19/21at 08:53; Start 01/17/21 at 09:00 Non-Formulary Medication (Tiotropium [place] (Spiriva)) 1 cap DAILY IH ; Start 01/17/21 at 09:00; Status UNV Albuterol/ Ipratropium (Combivent Respimat 20-100 Mcg) 1 puff RTQID INH Last administered on 01/19/21at 08:55; Start 01/17/21 at 12:00 Info (Anti-Coagulation Monitoring By Pharmacy) 1 each PRN DAILY PRN MC SEE COMMENTS Last administered on 01/18/21at 14:11; Start 01/18/21 at 14:15 Amoxicillin/ Clavulanate Potassium (Augmentin 875/ 125mg) 1 tab BID PO ; Start 01/19/21 at 21:00 Active Scripts Active Admelog (Insulin Lispro) 100 Unit/1 Ml Vial 8 Units SQ TIDWMEALS 30 Days Lantus (Insulin Glargine,Hum.rec.anlog) 100 Unit/1 Ml Vial 25 Unit SQ QHS 30 Days Pantoprazole Sodium (Pantoprazole Sodium) 40 Mg Tablet.dr 40 Mg PO DAILYAC 30 Days Polyethylene Glycol 3350 17 Gm Powd.pack 17 Gm PO PRN DAILY PRN 30 Days Bisacodyl 10 Mg Supp.rect 10 Mg MA PRN DAILY PRN 30 Days Mag-Al Plus Xs Suspension (Mag Hydrox/Al Hydrox/Simeth) 30 Ml Oral.susp 30 Ml PO PRN Q3HRS PRN 10 Days Klor-Con M20 (Potassium Chloride) 20 Meq Tab.er.prt 20 Meq PO DAILYWBKFT 14 Days Oyster Shell Calcium (Calcium Carbonate) 500 Mg Tablet 500 Mg PO TIDAFTMEAL 30 Days Acetaminophen 325 Mg Tablet 650 Mg PO PRN Q6HRS PRN 30 Days Percocet 7.5-325 Mg Tablet (Oxycodone/Acetaminophen) 1 Each Tablet 1 Tab PO PRN Q8HRS PRN 14 Days Dicyclomine Hcl 10 Mg Capsule 10 Mg PO PRN QID PRN 14 Days Tramadol Hcl 50 Mg Tablet 50 Mg PO PRN Q8HRS PRN Reported Gleevec (Imatinib Mesylate) 400 Mg Tablet 400 Mg PO HS Spiriva (Tiotropium [place]) 18 Mcg Cap.w.dev 1 Cap IH DAILY Klonopin (Clonazepam) 1 Mg Tablet 1 Tab PO HS Metoprolol Tartrate 50 Mg Tablet 1 Tab PO HS Metoprolol Tartrate 100 Mg Tablet 1 Tab PO DAILY08 Eliquis (Apixaban) 5 Mg Tablet 5 Mg PO BID Lyrica (Pregabalin) 150 Mg Capsule 1 Cap PO TID Crestor (Rosuvastatin Calcium) 40 Mg Tablet 0.5 Tab PO DAILY Restasis (Cyclosporine) 1 Each Droperette 1 Drop EACHEYE BID Proair Hfa Inhaler (Albuterol Sulfate) 8.5 Gm Hfa.aer.ad 1 Puff INH PRN Q6HRS PRN Ondansetron Hcl 4 Mg Tablet 2 Tab PO PRN Q8HRS PRN Fluticasone Propionate Nasal [place] (Fluticasone Propionate) 16 Gm [place].susp 2 [place] NS DAILY Carafate (Sucralfate) 1 Gm Tablet 1 Tab PO BID Meds not given this hospital admission. May resume home medications as approved by Physician. MAY TAKE WHEN AVAILABLE Zyrtec (Cetirizine Hcl) 10 Mg Tablet 1 Tab PO DAILY Vitals/I & O Vital Sign - Last 24 Hours 01/18/21 01/18/21 01/18/21 01/18/21 14:11 14:11 15:00 18:33 Temp 98.0 98.0 Pulse 79 Resp 18 B/P (MAP) 135/69 (91) Pulse Ox 93 O2 Delivery Room Air Room Air Room Air Room Air 01/18/21 01/18/21 01/18/21 01/18/21 19:00 20:05 21:02 23:00 Temp 99.1 98.1 99.1 98.1 Pulse 77 77 84 Resp 18 20 B/P (MAP) 121/69 (86) 121/69 153/82 (105) Pulse Ox 93 93 O2 Delivery Room Air Room Air Room Air 01/19/21 01/19/21 01/19/21 01/19/21 03:19 03:20 06:42 08:00 Temp 97.3 97.3 98.6 97.3 97.3 98.6 Pulse 74 74 76 Resp 18 20 B/P (MAP) 119/80 (93) 119/80 (93) 134/75 (94) Pulse Ox 93 93 O2 Delivery Room Air Room Air Room Air Room Air O2 Flow Rate 2.0 01/19/21 01/19/21 01/19/21 01/19/21 08:51 08:55 10:20 11:00 Temp 98.6 98.6 Pulse 76 79 Resp 16 B/P (MAP) 134/75 109/57 (74) Pulse Ox 99 O2 Delivery Room Air Room Air Room Air Intake and Output 01/18/21 01/18/21 01/19/21 15:00 23:00 07:00 Intake Total 400 ml 200 ml Output Total 300 ml Balance 400 ml 200 ml -300 ml Justicifation of Admission Dx: Justifications for Admission: Justification of Admission Dx: Yes ANNELIESE CHAVES MD Jan 19, 2021 11:39
[2021-01-19] MEDS ORDERED: SUMAtriptan SUCC 6 MG/0.5 ML VIAL. SQ ONE (13:15)
--- NOTE | 2021-01-19 13:27 | PDOC2 ---
NEUROLOGY CONSULT Date of Service DOS: DATE: 01/19/21 TIME: 13:10 Reason for Consult Reason for Consult: Headache, meningioma Referring Physician Referring Physician: Dr. Man Source Source: Chart review, Patient History of Present Illness History of Present Illness The patient is a 50-year-old right-handed female with history of left frontoparietal meningioma status post resection in October 2019, which is the last time [place] neurology saw her. She says that she has had chronic headaches ever since her resection, but starting about a month ago has had increased headaches. She has had some nausea. She has had photophobia in the past. She describes constant throbbing pain, 10/10. She was here last week with what was thought to be colitis. Dr Clark, her original neurosurgeon, saw her, and recommended radiation oncology. They are set to start treatment this week. Patient also sees oncology, as she also has chronic myelogenous leukemia. Patient has had right hemiparesis ever since the original presentation 2 years ago. She has had some staring spells in the past, with a negative EEG, 11/06/2019. General appearance in subacute distress. Past Medical History Cardiovascular: HTN, Hyperlipidemia, Other (Tachycardia) Pulmonary: Asthma, Pulmonary embolus, Other (Sleep apnea) CENTRAL NERVOUS SYSTEM: Periperal neuropathy, Other (Right L5 radiculopathy, left frontal parietal meningioma) GI: Peptic Ulcer disease, Other (pancreatitis, hiatal hernia) Heme/Onc: Cancer (CML) Psych: Anxiety, Depression, Other (ADHD) Musculoskeletal: low back pain Renal/: Other (nephrolithiasis) Endocrine: Diabetes Past Surgical History Past Surgical History: Appendectomy, Cholecystectomy, , Hysterectomy, Other (lumbar laminectomy, craniotomy) Family History Family History: Cancer, CAD Social History Social History , lives with ex- and children, ex smoker, no alcohol, disabled Current Medications Current Medications Current Medications Sodium Chloride 1,000 ml @ 0 mls/hr 1X ONCE IV Last administered on 01/16/21at 14:04; Start 01/16/21 at 12:30; Stop 01/16/21 at 12:31; Status DC Ondansetron HCl (Zofran) 4 mg 1X ONCE IM Last administered on 01/16/21at 14:04; Start 01/16/21 at 12:30; Stop 01/16/21 at 12:31; Status DC Ceftriaxone Sodium (Rocephin) 1 gm 1X ONCE IVP Last administered on 01/16/21at 14:02; Start 01/16/21 at 12:30; Stop 01/16/21 at 12:33; Status DC Vancomycin HCl 1.25 gm/Sodium Chloride 250 ml @ 166.667 mls/hr 1X ONCE IV ; Start 01/16/21 at 12:30; Stop 01/16/21 at 12:34; Status DC Vancomycin HCl 2 gm/Sodium Chloride 500 ml @ 250 mls/hr 1X ONCE IV Last administered on 01/16/21at 14:12; Start 01/16/21 at 12:45; Stop 01/16/21 at 14:44; Status DC Iohexol (Omnipaque 300 Mg/ml) 75 ml 1X ONCE IV ; Start 01/16/21 at 14:00; Stop 01/16/21 at 14:01; Status DC Info (CONTRAST GIVEN -- Rx MONITORING) 1 each PRN DAILY PRN MC SEE COMMENTS; Start 01/16/21 at 14:00; Stop 01/18/21 at 13:59; Status DC Acetaminophen (Tylenol) 1,000 mg 1X ONCE PO Last administered on 01/16/21at 19:57; Start 01/16/21 at 14:45; Stop 01/16/21 at 14:46; Status DC Cefepime HCl (Maxipime) 1 gm BID IVP Last administered on 01/19/21at 08:54; Start 01/16/21 at 17:00; Stop 01/19/21 at 11:10; Status DC Ondansetron HCl (Zofran) 4 mg PRN Q8HRS PRN IV NAUSEA/VOMITING; Start 01/16/21 at 17:30; Stop 01/17/21 at 17:29; Status DC Oxycodone/ Acetaminophen (Percocet 7.5/ 325) 1 tab PRN Q4HRS PRN PO MODERATE PAIN 4-6 Last administered on 01/19/21at 08:55; Start 01/17/21 at 00:00 Fentanyl Citrate (Fentanyl 2ml Vial) 50 mcg PRN Q3HRS PRN IVP severe pain Last administered on 01/19/21at 12:58; Start 01/17/21 at 00:00 Acetaminophen (Tylenol) 650 mg PRN Q6HRS PRN PO Temp > 101.5F; Start 01/17/21 at 07:45 Albuterol Sulfate (Ventolin Neb Soln) 2.5 mg PRN Q6HRS PRN INH SHORTNESS OF BREATH; Start 01/17/21 at 07:42 Insulin Human Lispro (HumaLOG) 0-7 UNITS TIDWMEALS SQ Last administered on 01/19/21at 12:39; Start 01/17/21 at 08:00 Dextrose (Dextrose 50%-Water Syringe) 12.5 gm PRN Q15MIN PRN IV SEE COMMENTS; Start 01/17/21 at 07:45 Apixaban (Eliquis) 5 mg BID PO Last administered on 01/19/21 08:53; Start 01/17/21 at 09:00 Bisacodyl (Dulcolax Supp) 10 mg PRN DAILY PRN VT CONSTIPATION; Start 01/17/21 at 08:30 Calcium Carbonate/ Glycine (Oscal) 500 mg TIDAFTMEAL PO Last administered on 01/19/21at 13:04; Start 01/17/21 at 09:00 Cetirizine HCl (ZyrTEC) 10 mg DAILY PO Last administered on 01/19/21 08:53; S tart 01/17/21 at 09:00 Cyclosporine (Restasis) 1 drop BID OU Last administered on 01/18/21at 21:02; Start 01/17/21 at 09:00 Fluticasone Propionate (Flonase) 2 spray DAILY NS Last administered on 01/19/21 08:43; Start 01/17/21 at 09:00 Metoprolol Tartrate (Lopressor) 50 mg HS PO Last administered on 01/18/21 21:02; Start 01/17/21 at 21:00 Pantoprazole Sodium (Protonix) 40 mg DAILYAC PO Last administered on 01/19/21 08:53; Start 01/17/21 at 09:00 Potassium Chloride (Klor-Con) 20 meq DAILYWBKFT PO Last administered on 01/19/21 08:51; Start 01/17/21 at 09:00 Sucralfate (Carafate) 1 gm BID PO Last administered on 01/19/21 08:52; Start 01/17/21 at 09:00 Tramadol HCl (Ultram) 50 mg PRN Q8HRS PRN PO MILD PAIN 1-3 Last administered on 01/18/21at 19:47; Start 01/17/21 at 08:30 Clonazepam (KlonoPIN) 1 mg HS PO Last administered on 01/18/21at 21:03; Start 01/17/21 at 21:00 Non-Formulary Medication (Imatinib Mesylate (Gleevec)) 400 mg HS PO ; Start 01/17/21 at 21:00; Status UNV Metoprolol Tartrate (Lopressor) 100 mg DAILY08 PO Last administered on 01/19/21at 08:51; Start 01/17/21 at 09:00 Pregabalin (Lyrica) 150 mg TID PO Last administered on 01/19/21at 13:03; Start 01/17/21 at 09:00 Atorvastatin Calcium (Lipitor) 80 mg DAILY PO Last administered on 01/19/21at 08:53; Start 01/17/21 at 09:00 Non-Formulary Medication (Tiotropium Cornelia (Spiriva)) 1 cap DAILY IH ; Start 01/17/21 at 09:00; Status UNV Albuterol/ Ipratropium (Combivent Respimat 20-100 Mcg) 1 puff RTQID INH Last administered on 01/19/21at 08:55; Start 01/17/21 at 12:00 Info (Anti-Coagulation Monitoring By Pharmacy) 1 each PRN DAILY PRN MC SEE COMMENTS Last administered on 01/19/21at 11:29; Start 01/18/21 at 14:15 Amoxicillin/ Clavulanate Potassium (Augmentin 875/ 125mg) 1 tab BID PO ; Start 01/19/21 at 21:00 Active Scripts Active Admelog (Insulin Lispro) 100 Unit/1 Ml Vial 8 Units SQ TIDWMEALS 30 Days Lantus (Insulin Glargine,Hum.rec.anlog) 100 Unit/1 Ml Vial 25 Unit SQ QHS 30 Days Pantoprazole Sodium (Pantoprazole Sodium) 40 Mg Tablet.dr 40 Mg PO DAILYAC 30 Days Polyethylene Glycol 3350 17 Gm Powd.pack 17 Gm PO PRN DAILY PRN 30 Days Bisacodyl 10 Mg Supp.rect 10 Mg VT PRN DAILY PRN 30 Days Mag-Al Plus Xs Suspension (Mag Hydrox/Al Hydrox/Simeth) 30 Ml Oral.susp 30 Ml PO PRN Q3HRS PRN 10 Days Klor-Con M20 (Potassium Chloride) 20 Meq Tab.er.prt 20 Meq PO DAILYWBKFT 14 Days Oyster Shell Calcium (Calcium Carbonate) 500 Mg Tablet 500 Mg PO TIDAFTMEAL 30 Days Acetaminophen 325 Mg Tablet 650 Mg PO PRN Q6HRS PRN 30 Days Percocet 7.5-325 Mg Tablet (Oxycodone/Acetaminophen) 1 Each Tablet 1 Tab PO PRN Q8HRS PRN 14 Days Dicyclomine Hcl 10 Mg Capsule 10 Mg PO PRN QID PRN 14 Days Tramadol Hcl 50 Mg Tablet 50 Mg PO PRN Q8HRS PRN Reported Gleevec (Imatinib Mesylate) 400 Mg Tablet 400 Mg PO HS Spiriva (Tiotropium Cornelia) 18 Mcg Cap.w.dev 1 Cap IH DAILY Klonopin (Clonazepam) 1 Mg Tablet 1 Tab PO HS Metoprolol Tartrate 50 Mg Tablet 1 Tab PO HS Metoprolol Tartrate 100 Mg Tablet 1 Tab PO DAILY08 Eliquis (Apixaban) 5 Mg Tablet 5 Mg PO BID Lyrica (Pregabalin) 150 Mg Capsule 1 Cap PO TID Crestor (Rosuvastatin Calcium) 40 Mg Tablet 0.5 Tab PO DAILY Restasis (Cyclosporine) 1 Each Droperette 1 Drop EACHEYE BID Proair Hfa Inhaler (Albuterol Sulfate) 8.5 Gm Hfa.aer.ad 1 Puff INH PRN Q6HRS PRN Ondansetron Hcl 4 Mg Tablet 2 Tab PO PRN Q8HRS PRN Fluticasone Propionate Nasal Morton (Fluticasone Propionate) 16 Gm Morton.susp 2 Morton NS DAILY Carafate (Sucralfate) 1 Gm Tablet 1 Tab PO BID Meds not given this hospital admission. May resume home medications as approved by Physician. MAY TAKE WHEN AVAILABLE Zyrtec (Cetirizine Hcl) 10 Mg Tablet 1 Tab PO DAILY Allergies Allergies: Coded Allergies: azithromycin (Verified Allergy, Intermediate, 10/12/19) codeine (Verified Allergy, Intermediate, 05/06/17) morphine (Verified Allergy, Intermediate, 11/01/19) Tolerates hydromorphone and oxycodone I S O L A T I O N *CONTACT* (Verified Allergy, Unknown, 11/16/19) ESBL ROS Review of System Negative for fever, chills, weight loss, shortness of breath, chest pain, i ndigestion, hematochezia, melena, and dysuria. Full 14-point review of systems is negative. Physical Exam Physical Examination General: Well-developed, well-nourished white female in no acute distress HEENT: Normocephalic andatraumatic. Temporal arteriespulsatile and nontender.Fundoscopic exam unremarkable Neck: Supple without bruit, no meningismus Musculoskeletal: Stability:see neurologic. Gait exam:see neurologic. Tone:see neurologic.Strength:see neurologic. Neurological: Mental Status:intact, orientation, memory, attention span/concentration, language, fund of knowledge normal. Cranial Nerves:Pupils equal and reactive to light, extraocular movements areintact, visual whitten are full to confrontation. Facial sensation is normal. There is a slight right central facial weakness. Vestibulo-ocular reflex is intact. Palate elevates and tongue protrudes in midline. All other cranial related problems are negative except as mentioned before.Reflexes:2+ and symmetric with flexor plantar responses. Motor:3/5 right hemiparesis, increased tone on the right. Coordination:Finger- nose finger and [id number]-lq-coqf testing are normal on the left. Rapid alternating movements and fine finger movements are intact. Gait:Not tested. Sensory:Right hemisensory loss, stocking loss left foot. Vitals VITALS Vital Signs Date Time Temp Pulse Resp B/P (MAP) Pulse Ox O2 Delivery O2 Flow Rate FiO2 01/19/21 11:41 Room Air 01/19/21 11:00 98.6 79 16 109/57 (74) 99 98.6 01/19/21 03:20 2.0 Labs Labs Laboratory Tests Test 01/17/21 17:02 01/17/21 21:02 01/18/21 06:57 01/18/21 13:17 Glucose (Fingerstick) 160 mg/dL (70-99) 130 mg/dL (70-99) 113 mg/dL (70-99) 166 mg/dL (70-99) Test 01/18/21 16:32 01/18/21 20:34 01/19/21 07:35 01/19/21 09:05 Glucose (Fingerstick) 159 mg/dL (70-99) 120 mg/dL (70-99) 113 mg/dL (70-99) White Blood Count 4.6 x10^3/uL (4.0-11.0) Red Blood Count 3.15 x10^6/uL (3.50-5.40) Hemoglobin 9.9 g/dL (12.0-15.5) Hematocrit 30.1 % (36.0-47.0) Mean Corpuscular Volume 96 fL (79-100) Mean Corpuscular Hemoglobin 32 pg (25-35) Mean Corpuscular Hemoglobin Concent 33 g/dL (31-37) Red Cell Distribution Width 14.3 % (11.5-14.5) Platelet Count 157 x10^3/uL (140-400) Neutrophils (%) (Auto) 46 % (31-73) Lymphocytes (%) (Auto) 40 % (24-48) Monocytes (%) (Auto) 10 % (0-9) Eosinophils (%) (Auto) 3 % (0-3) Basophils (%) (Auto) 1 % (0-3) Neutrophils # (Auto) 2.1 x10^3/uL (1.8-7.7) Lymphocytes # (Auto) 1.9 x10^3/uL (1.0-4.8) Monocytes # (Auto) 0.5 x10^3/uL (0.0-1.1) Eosinophils # (Auto) 0.1 x10^3/uL (0.0-0.7) Basophils # (Auto) 0.0 x10^3/uL (0.0-0.2) Sodium Level 144 mmol/L (136-145) Potassium Level 3.3 mmol/L (3.5-5.1) Chloride Level 109 mmol/L (98-107) Carbon Dioxide Level 28 mmol/L (21-32) Anion Gap 7 (6-14) Blood Urea Nitrogen 6 mg/dL (7-20) Creatinine 0.8 mg/dL (0.6-1.0) Estimated GFR (Cockcroft-Gault) 76.6 Glucose Level 163 mg/dL (70-99) Calcium Level 7.9 mg/dL (8.5-10.1) Test 3/1/21 11:55 Glucose (Fingerstick) 152 mg/dL (70-99) Laboratory Tests Test 01/18/21 13:17 01/18/21 16:32 01/18/21 20:34 01/19/21 07:35 Glucose (Fingerstick) 166 mg/dL (70-99) 159 mg/dL (70-99) 120 mg/dL (70-99) 113 mg/dL (70-99) Test 01/19/21 09:05 01/19/21 11:55 White Blood Count 4.6 x10^3/uL (4.0-11.0) Red Blood Count 3.15 x10^6/uL (3.50-5.40) Hemoglobin 9.9 g/dL (12.0-15.5) Hematocrit 30.1 % (36.0-47.0) Mean Corpuscular Volume 96 fL (79-100) Mean Corpuscular Hemoglobin 32 pg (25-35) Mean Corpuscular Hemoglobin Concent 33 g/dL (31-37) Red Cell Distribution Width 14.3 % (11.5-14.5) Platelet Count 157 x10^3/uL (140-400) Neutrophils (%) (Auto) 46 % (31-73) Lymphocytes (%) (Auto) 40 % (24-48) Monocytes (%) (Auto) 10 % (0-9) Eosinophils (%) (Auto) 3 % (0-3) Basophils (%) (Auto) 1 % (0-3) Neutrophils # (Auto) 2.1 x10^3/uL (1.8-7.7) Lymphocytes # (Auto) 1.9 x10^3/uL (1.0-4.8) Monocytes # (Auto) 0.5 x10^3/uL (0.0-1.1) Eosinophils # (Auto) 0.1 x10^3/uL (0.0-0.7) Basophils # (Auto) 0.0 x10^3/uL (0.0-0.2) Sodium Level 144 mmol/L (136-145) Potassium Level 3.3 mmol/L (3.5-5.1) Chloride Level 109 mmol/L (98-107) Carbon Dioxide Level 28 mmol/L (21-32) Anion Gap 7 (6-14) Blood Urea Nitrogen 6 mg/dL (7-20) Creatinine 0.8 mg/dL (0.6-1.0) Estimated GFR (Cockcroft-Gault) 76.6 Glucose Level 163 mg/dL (70-99) Calcium Level 7.9 mg/dL (8.5-10.1) Glucose (Fingerstick) 152 mg/dL (70-99) Images Images CT HEAD/BRAIN WO, 01/16 History: Reason: headache / Spl. Instructions: / History: Comparison: CT 01/09/2021. MRI 10/19/2019. Technique: Noncontrast CT imaging was performed of the head. Findings: Redemonstrated left frontoparietal craniotomy changes with mild cephalization change along the adjacent cortex. No intracranial hemorrhage. No mass effect. No hydrocephalus. Extra-axial spaces are unremarkable. Imaged orbits are unremarkable. Imaged paranasal sinuses and mastoid air cells are clear. No acute calvarial fracture. Impression: 1. No acute intracranial abnormality. 2. Stable postsurgical changes from left frontal extra-axial mass excision. MRI BRAIN WO+W, 01/13 History:Reason: meningioma 25mL CLARISCAN / Spl. Instructions: valium 5mg po x1 one hour prior to MRI / History: Technique: Multiplanar, multi sequential without and with intravenous contrast M R imaging was performed of the brain. Comparison: CT January 09, 2021. MRI October 24, 2019 Findings: Postoperative changes left parietal craniotomy for resection of underlying extra-axial mass. Increased left parafalcine lobulated enhancing lesion measures 3.0 x 2.0 x 2.3 cm. There is thickening and enhancement extending along the falx. Increased mass effect on the adjacent frontal parietal lobe. There is decreased FLAIR hyperintensity with in the adjacent frontal parietal lobe compared to immediate postoperative evaluation. Left frontoparietal encephalomalacia underlying the craniotomy. Ex vacuo dilatation of the left lateral ventricle, increased compared to prior. Wallerian degeneration extending into the brainstem is noted on the left. No acute infarct. No acute intracranial hemorrhage. No hydrocephalus. Potential enhancement within the left garret (series 10 image 11 and 10). Imaged orbits are unremarkable. Secretions within the left posterior ethmoid air cell. Mastoid air cells are clear. Impression: 1. Increased left parafalcine enhancing mass with thickened enhancement along the falx, compatible with meningioma progression. 2. Potential enhancement within the left garret in the region of the exiting cranial nerves, may relate to artifact. Recommend correlation with symptoms. If persistent clinical concern, MRI with and without contrast internal auditory canal protocol can further assess. Assessment/Plan Assessment/Plan Impression: Migraine-type headache Increased left parafalcine enhancing mass with thickened enhancement along the falx, compatible with meningioma progression. Potential enhancement within the left garret in the region of the exiting cranial nerves, may relate to artifact. Diabetic neuropathy Chronic right L5 radiculopathy General debility Recommendations: As both a test and treatment, a single sumatriptan injection, side effects discussed including fatal heart attacks. CT angiogram and venogram to assess for thrombosis. Consider lumbar puncture, we would have to stop her anticoagulation. Supportive care Radiation treatment is commencing for the meningioma. Thank you for letting me help with the patient's care. CISCO KLEIN MD Jan 19, 2021 13:27
[2021-01-19] MEDS ORDERED: CONTRAST GIVEN. MC PRN (13:30)
[2021-01-19] MEDS ORDERED: IOHEXOL 300 MG/ML 100ML VIAL. IV ONE ×2 (13:30→14:00)
--- NOTE | 2021-01-19 13:55 | NUR ---
SW following for discharge planning. Spoke with RN and reviewed chart. SW consulted for multiple admissions and recent discharge. Pt from home with her ex- and HCBS through [employer]. Pt on room air, IV pain medication, cardiac diet. Pt has [place] Medicaid. Pt at baseline per PT notes. Pt uses a celia. Consult to neurology today and transfer to room 448. Discharge plan is home with resumption of HCBS. No further needs from this SW.
--- NOTE | 2021-01-19 15:18 | NUR ---
prior to lunch was complaining of headache; she was rating it 10/10. she was medicated with fentanyl. headache went down to an 8. Imitrex was given. upon returning from ct scan was a "5". continue to monitor.
--- NOTE | 2021-01-19 15:45 | NUR ---
Vero states that her headache is still a "5"
[2021-01-19] MEDS ORDERED: SUMAtriptan SUCC 6 MG/0.5 ML VIAL. SQ PRN ×2 (16:15→23:30)
--- NOTE | 2021-01-19 17:20 | RAD ---
STUDY: CT angiography of the head INDICATION: Headache. Known meningioma. COMPARISON: CT head without contrast 01/16/2021; MRI of the brain 01/13/2021 TECHNIQUE: CT angiography of the head performed after the intravenous administration of 75 cc Omnipaq ue 300 contrast. 3D MIP acquisitions were obtained. Encountered areas of stenosis are measured per NA SCET criteria. One or more of the following individualized dose reduction techniques were utilized for this examinat ion: 1. Automated exposure control 2. Adjustment of the mA and/or kV according to patient size 3. Use of iterative reconstruction technique. FINDINGS: Redemonstration of an enhancing, lobulated, extra-axial mass along the left aspect of the falx extend ing to the vertex measuring up to approximately 3.2 cm AP by 1.8 cm transverse by 2.3 cm craniocaudal . This is again consistent with a meningioma. This results in segmental occlusion of the superior sag ittal sinus over a length of 2 cm, image 447 series 5, but with maintained opacification of the super ior sagittal sinus both anterior and posterior to this segment. The rest of the dural sinuses remain patent as do the dominant cerebral veins extending along the convexities. Small vessels enhance withi n the mass which appear mostly venous. It is favored that small left anterior cerebral artery branche s feed the mass. Dominant draining vein along the right/superior margin of the mass, image 448 series 5. Diminutive but patent left intracranial vertebral artery. Patent basilar artery. Widely patent tattooer ior communicating artery on both the right and left. No branch vessel occlusion or flow-limiting sten osis throughout the adequately assessed anterior, middle and posterior cerebral arteries. High left frontal parietal craniotomy. Small areas of inner table scalloping of the parietal calvariu m overlying the meningioma, image 23 series 6. Subtle hypoattenuation of the diploic space over this scalloping is nonspecific for osseus involvement or related to hyperemia. IMPRESSION: 1. Left parafalcine meningioma measuring approximately 3.2 x 1.8 x 2.3 cm that involves/occludes a 2 cm segment of the superior sagittal sinus. The sinus remains well-opacified both anterior and posteri or to this area of occlusion as do the major draining veins along the convexities. Small vessels cour se within the meningioma, appearing predominately on account of veins, though the mass is likely fed by small branches of the left anterior cerebral artery. The dominant draining vein is along the super ior/right lateral aspect of the mass, images 448 series 5. 2. Either a small area of osseous involvement by the meningioma or alteration in calvarial density fr om draining vessels/hyperemia (image 23 series 6 on the current study - image 7 series 11 on the rece nt MRI). 3. No branch vessel occlusion, flow-limiting stenosis or aneurysm of the adequately assessed anterior and posterior arterial circulation. Electronically signed by: SHALONDA BAEZA MD (01/19/2021 5:18 PM) [facility]
[2021-01-19] MEDS ORDERED: ONDANSETRON ODT 4 MG TAB.RAPDIS. PO PRN (20:30)
[2021-01-19] MEDS ORDERED: ONDANSETRON PF 4 MG/2 ML VIAL. IVP PRN (20:30)
[2021-01-19] MEDS: AMOXICILLIN/K CLAV 875/125MG TABLET. PO SCH (21:11)
[2021-01-19] MEDS: clonazePAM 0.5 MG TABLET PO SCH (21:11)
[2021-01-19] MEDS: NON FORMULARY ITEM (Imatinib Mesylate (Gleevec) 400 MG) PO SCH (21:15)
--- NOTE | 2021-01-19 23:30 | NUR ---
Patient c/o "Headache" Imitrex6 mg SQ given per order(see EMAR).
[2021-01-20 03:00] VITALS: BP 112/62
[2021-01-20] MEDS: PANTOPRAZOLE 40 MG TABLET.DR. PO SCH (06:38)
[2021-01-20 06:45] VITALS: BP 130/76
[2021-01-20] MEDS: INSULIN LISPRO 300 UNITS/3 ML VIAL. SQ SCH ×3 (07:44→17:09)
[2021-01-20] MEDS: IPRATROPIUM/ALBUTEROL 20/100mcg/INH INHALER. INH SCH ×3 (08:15→15:37)
[2021-01-20] MEDS: cycloSPORINE 0.05% OPHTH DROPERETTE. OU SCH (08:15)
[2021-01-20] MEDS: ATORVASTATIN CALCIUM 40 MG TABLET. PO SCH (08:18)
[2021-01-20] MEDS: FLUTICASONE 50MCG/NASAL SPRAY 16GM BOTTLE. NS SCH (08:18)
[2021-01-20] MEDS: POTASSIUM CHLORIDE 20 MEQ TABLET.ER. PO SCH (08:19)
[2021-01-20] MEDS: CETIRIZINE HCL 10 MG TABLET. PO SCH (08:20)
[2021-01-20] MEDS: SUCRALFATE 1 GM TABLET. PO SCH (08:20)
[2021-01-20] MEDS: PREGABALIN 75 MG CAPSULE PO SCH ×2 (08:21→12:26)
[2021-01-20] MEDS: METOPROLOL TART IMMED RELEASE 50 MG TABLET. PO SCH (08:21)
[2021-01-20] MEDS: APIXABAN 5 MG TABLET. PO SCH (08:21)
[2021-01-20] MEDS: CALCIUM CARBONATE 500 MG TABLET PO SCH ×3 (08:25→15:36)
[2021-01-20 08:28] VITALS: BP 136/84
[2021-01-20] MEDS: AMOXICILLIN/K CLAV 875/125MG TABLET. PO SCH (09:12)
[2021-01-20] MEDS: fentaNYL PF VIAL 100 MCG/2 ML VIAL IVP PRN (09:17)
--- NOTE | 2021-01-20 09:29 | PDOC ---
Infectious Disease Note Subjective Subjective pt is feeling good, ready to go home ROS ROS no n/v/d/sob Vital Sign Vital Signs Vital Signs Date Time Temp Pulse Resp B/P (MAP) Pulse Ox O2 Delivery O2 Flow Rate FiO2 01/20/21 09:17 20 01/20/21 08:28 77 136/84 (101) Room Air 01/20/21 06:45 98.3 94 98.3 Physical Exam PHYSICAL EXAM GENERAL: Alert, awake female, talking on phone, in no acute distress, on nasal O2. HEENT: Normocephalic, atraumatic. Oral mucosa moist. No thrush. NECK: Supple, no JVD. LUNGS: Decreased breath sounds at the bases, otherwise clear. No wheezing. HEART: S1, S2. No gallops or murmurs. ABDOMEN: Soft, mild diffuse tenderness present. No rebound, no guarding. EXTREMITIES: No edema, no cyanosis. DERMATOLOGIC: Warm, dry. No generalized rash. NEUROLOGIC: Alert, oriented x 3. Weakness of the right upper and lower extremity, which is baseline from previous is chronic. PSYCHIATRIC: Calm and cooperative. Labs Lab Laboratory Tests Test 01/19/21 11:55 01/19/21 16:52 01/20/21 06:53 Glucose (Fingerstick) 152 mg/dL (70-99) 173 mg/dL (70-99) 134 mg/dL (70-99) Micro Microbiology 01/16/21 Blood Culture - Preliminary, Resulted NO GROWTH AFTER 2 DAYS Objective Assessment 1. Fever, could be from aspiration pneumonitis. 2. Nausea and vomiting. resolved 3. Aspiration pneumonitis. 4. History of pulmonary embolism. 5. History of obstructive sleep apnea. 6. History of chronic myelogenous leukemia, status post bone marrow biopsy in 10/2019. 7. History of brain mass with recurrence awaiting palliative radiation. 8. History of recent colitis, discharged on Cipro and Flagyl. 9. ALLERGIES TO AZITHROMYCIN. 10. COVID-19 PUI. Plan Plan of Care augmentin Maintain aspiration precaution. Follow up labs and cultures. COVID-19 PCR. neg Continue supportive care. MAIDA SIMMONS MD Jan 20, 2021 09:29
--- NOTE | 2021-01-20 10:44 | PDOC ---
[employer] PROGRESS NOTE Date of Service DOS: DATE: 01/20/21 TIME: 10:41 Chief Complaint Chief Complaint Nausea Deadache Vomiting Aspiration pneumonia History of Present Illness History of Present Illness 01/20: Evaluated by neurology for migraine headaches. Recommended single sumatriptan injection, side effects discussed with patient. Antibiotics changed to oral Augmentin. >30 minutes was spent managing the discharge of this patient. 01/19, still headache, has celia lift and assist at home can try to DC later today Neuro eval to try to help with headaches, on percocet and fentanyl here, with some benefit 01/18- Seen pt in between meetings with other staff. Pt is laying comfortably in bed. Discussed plan with staff, pain management. Pt states her headache was acute with the episode of vommiting but has noticed persistent episodes of lightheadedness for the past 2wks. Denies any progressive neurological symptoms on the right side of body as this never really returned. The head ct was negative for any acute pathology, but still has the long-term moieties of previous meningioma and surgery. Denies heartburn, and is due for a chemotherapy treatment for the Leukemia in january. Is currently on RA but takes oxygen at night. The patient is a pleasant 50-year-old female, who has a large meningioma and leukemia. She was actually just discharged here a day or two ago, apparently was being treated for colitis and chest pain. Now, she has got some nausea and vomiting and a headache. We did a CAT scan of her chest, which is showing probable pneumonia. We suspect the headache could be from her meningioma. I discussed the case with ER physician. We are going to admit the patient and consult Infectious Disease and Hematology/Oncology. It should be noted that the patient rates her symptoms at 10/10. She has associated weakness, this has been occurring for several days' worth. Vitals/I&O Vitals/I&O: Vital Signs Date Time Temp Pulse Resp B/P (MAP) Pulse Ox O2 Delivery O2 Flow Rate FiO2 01/20/21 09:45 16 Room Air 01/20/21 08:28 77 136/84 (101) 01/20/21 06:45 98.3 94 98.3 I & O 01/19/21 01/19/21 01/20/21 15:00 23:00 07:00 Intake Total 200 ml 200 ml Balance 200 ml 200 ml Physical Exam General: Alert, Oriented X3 Heart: Regular rate, Normal S1 Lungs: Clear, Wheezing Abdomen: Normal bowel sounds, Soft Extremities: No clubbing Skin: No rashes, No breakdown Labs Labs: Laboratory Tests Test 01/19/21 11:55 01/19/21 16:52 01/20/21 06:53 Glucose (Fingerstick) 152 mg/dL (70-99) 173 mg/dL (70-99) 134 mg/dL (70-99) Assessment and Plan Assessmemt and Plan Problems Medical Problems: (1) Headache Status: Acute (2) Nausea & vomiting Status: Acute (3) Pneumonia Status: Acute Comment Review of Relevant I have reviewed the following items mustapha (where applicable) has been applied. Medications: Current Medications Medications (Trade) Dose Ordered Sig/Nikki Route PRN Reason Start Time Stop Time Status Last Admin Dose Admin Amoxicillin/ Clavulanate Potassium (Augmentin 875/ 125mg) 1 tab BID PO 01/19/21 21:00 01/20/21 09:12 Sumatriptan Succinate (Imitrex) 6 mg 1X ONCE SQ 01/19/21 13:15 01/19/21 13:16 DC 01/19/21 13:43 Iohexol (Omnipaque 300 Mg/ml) 75 ml 1X ONCE IV 01/19/21 13:30 01/19/21 13:31 DC 01/19/21 13:30 Ondansetron HCl (Zofran Odt) 4 mg PRN Q6HRS PRN PO NAUSEA/VOMITING 01/19/21 20:30 01/19/21 21:11 Sumatriptan Succinate (Imitrex) 6 mg PRN BID PRN SQ severe mcclure 01/19/21 23:30 01/19/21 23:30 Justifications for Admission Other Justification Chest pain, hematochezia BILL NAIK MD Jan 20, 2021 10:44
--- NOTE | 2021-01-20 10:54 | SNU/HH DC ---
DISCHARGE WITH HOME HEALTH DISCHARGE INFORMATION: Discharge Date: Jan 20, 2021 Final Diagnosis: Problems Medical Problems: (1) Headache Status: Acute (2) Nausea & vomiting Status: Acute (3) Pneumonia Status: Acute Condition on Discharge: Stable CODE STATUS: Code Status: Full HOME HEALTH: Face to Face: I certify this patient is under my care and that I, or a nurse practitioner or physician's assistant farm operations manager working with me, had a face to face encounter that meets the physician face to face encounter requirements with this patient on 01/20/2021. RN For Eval/Treatment: Yes Home Health Aide For: Self-care Pt Meets Homebound Status: Limited distance walking, Unable to negotiate home POST DISCHARGE ORDERS: Activity Instructions for Disc: No restrictions, Resume previous activity, Activity as tolerated Weight Bearing Status after Di: No restrictions, As tolerated Bathing Instructions: Shower-keep dressing dry, No Tub Bath until see Dr. MARQUEZ AFTER DISCHARGE: Cardiac Wound/Incision Care: No wound care needed CHECKS AFTER DISCHARGE: Checks after discharge: Check blood press - daily, Check blood sugar, ac/hs, Check your Temp as needed, Weigh Yourself Daily TREATMENT/EQUIPMENT ORDERS: Adaptive Equipment Issued: None Discharge Respiratory Equipmen: Oxygen CERTIFICATION STATEMENT: Certification Statement: Certification Statement: Based on the above finding, I certify that this patient is confined to the home and needs intermittent fpc care, physical therapy and/or speech therapy, or continues to need occupational therapy.~ This patient is under my care, and I have initiated the establishment of the plan of care.~ This patient will be followed by myself or a community physician who will periodically review the plan of care. Home Meds Active Scripts Insulin Lispro (Admelog) 100 Unit/1 Ml Vial, 8 UNITS SQ TIDWMEALS for DIABETES for 30 Days, #2 EACH Prov:LUANNE OWUSU MD 01/15/21 Insulin Glargine,Hum.rec.anlog (LANTUS) 100 Unit/1 Ml Vial, 25 UNIT SQ QHS for DIABETES for 30 Days, #2 EACH Prov:LUANNE OWUSU MD 01/15/21 Pantoprazole Sodium (PANTOPRAZOLE SODIUM ) 40 Mg Tablet., 40 MG PO DAILYAC for GERD for 30 Days, #30 TAB.SR Prov:LUANNE OWUSU MD 01/15/21 Polyethylene Glycol 3350 (POLYETHYLENE GLYCOL 3350) 17 Gm Powd.pack, 17 GM PO PRN DAILY PRN for CONSTIPATION 2ND CHOICE for 30 Days, #30 PKT Prov:LUANNE OWUSU MD 01/15/21 Bisacodyl (BISACODYL) 10 Mg Supp.rect, 10 MG RI PRN DAILY PRN for CONSTIPATION for 30 Days, #30 SUPP.RECT Prov:LUANNE OWUSU MD 01/15/21 Mag Hydrox/Al Hydrox/Simeth (MAG-AL PLUS XS SUSPENSION) 30 Ml Oral.susp, 30 ML PO PRN Q3HRS PRN for HEARTBURN / GAS for 10 Days, #240 MISC Prov:LUANNE OWUSU MD 01/15/21 Potassium Chloride (KLOR-CON M20) 20 Meq Tab.er.prt, 20 MEQ PO DAILYWBKFT for SUPPLEMENT for 14 Days, #14 TAB.SR Prov:LUANNE OWUSU MD 01/15/21 Calcium Carbonate (OYSTER SHELL CALCIUM) 500 Mg Tablet, 500 MG PO TIDAFTMEAL for BONE HEALTH for 30 Days, #90 TAB Prov:LUANNE OWUSU MD 01/15/21 Acetaminophen (ACETAMINOPHEN) 325 Mg Tablet, 650 MG PO PRN Q6HRS PRN for Headaches, Temp > 101.5F for 30 Days, #100 TAB Prov:LUANNE OWUSU MD 01/15/21 Oxycodone/Apap 7.5-325 (PERCOCET 7.5-325 MG TABLET ) 1 Each Tablet, 1 TAB PO P RN Q8HRS PRN for PAIN SEVERE for 14 Days, #60 TAB Prov:LUANNE OWUSU MD 01/15/21 Dicyclomine Hcl (DICYCLOMINE HCL) 10 Mg Capsule, 10 MG PO PRN QID PRN for ABDOMINAL CRAMPS for 14 Days, #60 CAP Prov:LUANNE OWUSU MD 01/15/21 Tramadol Hcl (TRAMADOL HCL) 50 Mg Tablet, 50 MG PO PRN Q8HRS PRN for MILD PAIN 1-3, #30 TAB Prov:RAFAEL CAT MD 11/20/19 Reported Medications Imatinib Mesylate (GLEEVEC) 400 Mg Tablet, 400 MG PO HS for chemotherapy agent , TAB 01/10/21 Tiotropium Clifford (SPIRIVA) 18 Mcg Cap.w.dev, 1 CAP IH DAILY for inhaler , #30 CAP 3 Refills 01/10/21 Clonazepam (KLONOPIN) 1 Mg Tablet, 1 TAB PO HS for anxiety , #90 TAB 1 Refill 01/10/21 Metoprolol Tartrate (METOPROLOL TARTRATE) 50 Mg Tablet, 1 TAB PO HS for heart rate, heart function , #60 TAB 5 Refills 01/10/21 Metoprolol Tartrate (METOPROLOL TARTRATE) 100 Mg Tablet, 1 TAB PO DAILY08 for heart rate, heart function , #60 TAB 5 Refills 01/10/21 Apixaban (ELIQUIS) 5 Mg Tablet, 5 MG PO BID for blood thinner , TAB 01/10/21 Pregabalin (LYRICA) 150 Mg Capsule, 1 CAP PO TID for PAIN, #60 CAP 5 Refills 10/19/19 Rosuvastatin Calcium (CRESTOR) 40 Mg Tablet, 0.5 TAB PO DAILY for HLD, #30 TAB 5 Refills 10/19/19 Cyclosporine (RESTASIS) 1 Each Droperette, 1 DROP EACHEYE BID, #60 VIAL 3 Refills 11/26/17 Albuterol Sulfate (PROAIR HFA INHALER) 8.5 Gm Hfa.aer.ad, 1 PUFF INH PRN Q6HRS PRN for SHORTNESS OF BREATH, INHALER 0 Refills 11/25/17 Ondansetron Hcl (ONDANSETRON HCL) 4 Mg Tablet, 2 TAB PO PRN Q8HRS PRN for NAUSEA/VOMITING, #10 TAB 1 Refill 11/25/17 Fluticasone Propionate (FLUTICASONE PROPIONATE [place]AL SPRAY) 16 Gm [place].susp, 2 SPRAY NS DAILY, #1 INHALER 11 Refills 11/25/17 Sucralfate (CARAFATE) 1 Gm Tablet, 1 TAB PO BID for acid reflux , #120 TAB 3 Refills Meds not given this hospital admission. May resume home medications as approved by Physician. MAY TAKE WHEN AVAILABLE 05/05/17 Cetirizine Hcl (ZYRTEC) 10 Mg Tablet, 1 TAB PO DAILY, #30 TAB 5 Refills 07/28/14 Discontinued Reported Medications Insulin Aspart (NOVOLOG) 100 Unit/1 Ml Cartridge, 100 UNIT SQ TIDACHC for insu tracy , EACH 01/10/21 Insulin Detemir (LEVEMIR) 100 Unit/1 Ml Vial, 30 UNIT SQ HS for insulin , EACH 01/10/21 Metformin Hcl (METFORMIN HCL) 500 Mg Tablet, 500 MG PO BIDWMEALS for ANTI- DIABETIC, TAB 0 Refills 01/10/21 Duloxetine Hcl (CYMBALTA) 60 Mg Capsule.dr, 1 CAP PO BID for Depression, #90 CAP 3 Refills 10/19/19 Polyethylene Glycol 3350 (POLYETHYLENE GLYCOL 3350) 2,500 Gm Powder, 17 GM PO PRN PRN for CONSTIPATION, #255 GM 0 Refills 10/19/19 Alprazolam (XANAX) 0.5 Mg Tablet, 0.5 MG PO PRN TID PRN for ANXIETY / AGITATION, TAB 0 Refills 07/28/14 BILL NAIK MD Jan 20, 2021 10:54
[2021-01-20 11:02] VITALS: BP 152/89
[2021-01-20] MEDS: ANTI-COAG MONITOR BY PHARMACY. MC PRN (11:06)
[2021-01-20] MEDS ORDERED: TOPI25TA52 PO (11:08)
[2021-01-20] MEDS ORDERED: SUMA100T3 PO (11:08)
[2021-01-20] MEDS ORDERED: AMOX1TAB11 PO (11:08)
--- NOTE | 2021-01-20 11:21 | PDOC3 ---
Discharge Summary Visit Information Date of Admission: Jan 16, 2021 Date of Discharge: Jan 20, 2021 Final Diagnosis Problems Medical Problems: (1) Headache Status: Acute (2) Nausea & vomiting Status: Acute (3) Pneumonia Status: Acute Brief Hospital Course Allergies Allergies Coded Allergies Type Severity Reaction Last Updated Verified azithromycin Allergy Intermediate 10/12/19 Yes codeine Allergy Intermediate 05/06/17 Yes morphine Allergy Intermediate 11/01/19 Yes I S O L A T I O N *CONTACT* Allergy Unknown 11/16/19 Yes Vital Signs Vital Signs Date Time Temp Pulse Resp B/P (MAP) Pulse Ox O2 Delivery O2 Flow Rate FiO2 01/20/21 09:45 16 Room Air 01/20/21 08:28 77 136/84 (101) 01/20/21 06:45 98.3 94 98.3 Lab Results Laboratory Tests Test 01/18/21 13:17 01/18/21 16:32 01/18/21 20:34 01/19/21 07:35 Glucose (Fingerstick) 166 mg/dL (70-99) 159 mg/dL (70-99) 120 mg/dL (70-99) 113 mg/dL (70-99) Test 01/19/21 09:05 01/19/21 11:55 01/19/21 16:52 01/20/21 06:53 White Blood Count 4.6 x10^3/uL (4.0-11.0) Red Blood Count 3.15 x10^6/uL (3.50-5.40) Hemoglobin 9.9 g/dL (12.0-15.5) Hematocrit 30.1 % (36.0-47.0) Mean Corpuscular Volume 96 fL (79-100) Mean Corpuscular Hemoglobin 32 pg (25-35) Mean Corpuscular Hemoglobin Concent 33 g/dL (31-37) Red Cell Distribution Width 14.3 % (11.5-14.5) Platelet Count 157 x10^3/uL (140-400) Neutrophils (%) (Auto) 46 % (31-73) Lymphocytes (%) (Auto) 40 % (24-48) Monocytes (%) (Auto) 10 % (0-9) Eosinophils (%) (Auto) 3 % (0-3) Basophils (%) (Auto) 1 % (0-3) Neutrophils # (Auto) 2.1 x10^3/uL (1.8-7.7) Lymphocytes # (Auto) 1.9 x10^3/uL (1.0-4.8) Monocytes # (Auto) 0.5 x10^3/uL (0.0-1.1) Eosinophils # (Auto) 0.1 x10^3/uL (0.0-0.7) Basophils # (Auto) 0.0 x10^3/uL (0.0-0.2) Sodium Level 144 mmol/L (136-145) Potassium Level 3.3 mmol/L (3.5-5.1) Chloride Level 109 mmol/L (98-107) Carbon Dioxide Level 28 mmol/L (21-32) Anion Gap 7 (6-14) Blood Urea Nitrogen 6 mg/dL (7-20) Creatinine 0.8 mg/dL (0.6-1.0) Estimated GFR (Cockcroft-Gault) 76.6 Glucose Level 163 mg/dL (70-99) Calcium Level 7.9 mg/dL (8.5-10.1) Glucose (Fingerstick) 152 mg/dL (70-99) 173 mg/dL (70-99) 134 mg/dL (70-99) Laboratory Tests Test 01/19/21 11:55 01/19/21 16:52 01/20/21 06:53 Glucose (Fingerstick) 152 mg/dL (70-99) 173 mg/dL (70-99) 134 mg/dL (70-99) Brief Hospital Course Ms. Alejo is a 50 old female who presented with aspiration pneumonitis, fever, nausea, and vomiting. She was treated with IV antibiotics. Consultation was placed to infectious disease. Due to history of chronic myelogenous leukemia, consultation was placed to Hematology/Oncology. She was recommended to continue with imatinib 400 mg daily and continue with radiation with Dr. Norris, for clinical improvement of meningioma. Consultation was placed to neurology for her intractable migraines. Recommended sumatriptan, side effects discussed including fatal heart attacks. CT angiogram and venogram was ordered that demonstrated left parafalcine meningioma but no branch vessel occlusion, flow-limiting stenosis or aneurysm of the adequately assessed anterior and posterior arterial circulation. She was discharged home with home health. Discharge Information Condition at Discharge: Improved Follow Up: Weeks Disposition/Orders: D/C to Home w/ HH Scheduled Amoxicillin/Potassium Clav (Amox Tr-K Clv 875-125 Mg Tab) 1 Each Tablet, 1 TAB PO BID for PNA for 5 Days, #10 Prescribed by: BILL NAIK MD on 01/20/21 1108 Apixaban (Eliquis) 5 Mg Tablet, 5 MG PO BID for blood thinner , (Reported) Entered as Reported by: AMARILIS GONGORA RN on 01/10/21 011 Last Action: Continued on 01/17/21823 by TONYA LOVETT RN Calcium Carbonate (Oyster Shell Calcium) 500 Mg Tablet, 500 MG PO TIDAFTMEAL for BONE HEALTH for 30 Days, #90 Prescribed by: LUANNE OWUSU MD on 01/15/21 0958 Last Action: Continued on 01/17/21823 by TONYA LOVETT RN Cetirizine Hcl (Zyrtec) 10 Mg Tablet, 1 TAB PO DAILY, #30 Ref 5 (Reported) Entered as Reported by: ROMAIN ORTEGA on 07/28/14 1534 Last Action: Continued on 01/17/21823 by TONYA LOVETT RN Clonazepam (Klonopin) 1 Mg Tablet, 1 TAB PO HS for anxiety , #90 Ref 1 (Reported) Entered as Reported by: AMARILIS GONGORA RN on 01/10/21111 Last Action: Converted on 01/17/21823 by TONYA LOVETT RN Cyclosporine (Restasis) 1 Each Droperette, 1 DROP EACHEYE BID, #60 Ref 3 (Reported) Entered as Reported by: MELITA ONOFRE on 11/26/17 1351 Last Action: Continued on 01/17/21823 by TONYA LOVETT RN Fluticasone Propionate (Fluticasone Propionate Nasal [place]) 16 Gm [place].susp, 2 SPRAY NS DAILY, #1 Ref 11 (Reported) Entered as Reported by: Romy Rivera on 11/25/17 2330 Last Action: Continued on 01/17/21823 by TONYA LOVETT RN Imatinib Mesylate (Gleevec) 400 Mg Tablet, 400 MG PO HS for chemotherapy agent , (Reported) Entered as Reported by: AMARILIS GONGORA RN on 01/10/21 0401 Last Action: Converted on 01/17/21823 by TONYA LOVETT RN Insulin Glargine,Hum.rec.anlog (Lantus) 100 Unit/1 Ml Vial, 25 UNIT SQ QHS for DIABETES for 30 Days, #2 Prescribed by: LUANNE OWUSU MD on 01/15/21957 Insulin Lispro (Admelog) 100 Unit/1 Ml Vial, 8 UNITS SQ TIDWMEALS for DIABETES for 30 Days, #2 Prescribed by: LUANNE OWUSU MD on 01/15/21957 Metoprolol Tartrate (Metoprolol Tartrate) 100 Mg Tablet, 1 TAB PO DAILY08 for heart rate, heart function , #60 Ref 5 (Reported) Entered as Reported by: AMARILIS GONGORA RN on 01/10/21110 Last Action: Converted on 01/17/21823 by TONYA LOVETT RN Metoprolol Tartrate (Metoprolol Tartrate) 50 Mg Tablet, 1 TAB PO HS for heart rate, heart function , #60 Ref 5 (Reported) Entered as Reported by: AMARILIS GONGORA RN on 01/10/21110 Last Action: Continued on 01/17/21823 by TONYA LOVETT RN Pantoprazole Sodium (Pantoprazole Sodium ) 40 Mg Tablet.dr, 40 MG PO DAILYAC for GERD for 30 Days, #30 Prescribed by: LUANNE OWUSU MD on 01/15/21957 Last Action: Continued on 01/17/21823 by TONYA LOVETT RN Potassium Chloride (Klor-Con M20) 20 Meq Tab.er.prt, 20 MEQ PO DAILYWBKFT for SUPPLEMENT for 14 Days, #14 Prescribed by: LUANNE OWUSU MD on 01/15/21957 Last Action: Continued on 01/17/21823 by TONYA LOVETT RN Pregabalin (Lyrica) 150 Mg Capsule, 1 CAP PO TID for PAIN, #60 Ref 5 (Reported) Entered as Reported by: HOLLI PONCE RN on 10/19/19111 Last Action: Converted on 01/17/21823 by TONYA LOVETT RN Rosuvastatin Calcium (Crestor) 40 Mg Tablet, 0.5 TAB PO DAILY for HLD, #30 Ref 5 (Reported) Entered as Reported by: HOLLI PONCE RN on 10/19/19 0042 Last Action: Converted on 01/17/21823 by TONYA LOVETT RN Sucralfate (Carafate) 1 Gm Tablet, 1 TAB PO BID for acid reflux , #120 Ref 3 (Reported) Meds not given this hospital admission. May resume home medications as approved by Physician. MAY TAKE WHEN AVAILABLE Entered as Reported by: TARI GONSALES on 05/05/17 0058 Last Action: Continued on 01/17/21823 by TONYA LOVETT RN Tiotropium [place] (Spiriva) 18 Mcg Cap.w.dev, 1 CAP IH DAILY for inhaler , #30 Ref 3 (Reported) Entered as Reported by: AMARILIS GONGORA RN on 01/10/21 0401 Last Action: Converted on 01/17/21823 by TONYA LOVETT RN Topiramate (Topamax) 25 Mg Tablet, 25 MG PO QHS for Migraines, #30 Prescribed by: BILL NAIK MD on 01/20/21 1108 Scheduled PRN Albuterol Sulfate (Proair Hfa Inhaler) 8.5 Gm Hfa.aer.ad, 1 PUFF INH PRN Q6HRS PRN for SHORTNESS OF BREATH, Ref 0 (Reported) Entered as Reported by: Romy Rivera on 11/25/172329 Last Action: Continued on 01/17/21 0744 by TONYA LOVETT RN Dicyclomine Hcl (Dicyclomine Hcl) 10 Mg Capsule, 10 MG PO PRN QID PRN for ABDOMINAL CRAMPS for 14 Days, #60 Prescribed by: LUANNE OWUSU MD on 01/15/21 0958 Ondansetron Hcl (Ondansetron Hcl) 4 Mg Tablet, 2 TAB PO PRN Q8HRS PRN for NAUSEA/VOMITING, #10 Ref 1 (Reported) Entered as Reported by: Romy Rivera on 11/25/172329 Oxycodone/Apap 7.5-325 (Percocet 7.5-325 Mg Tablet ) 1 Each Tablet, 1 TAB PO PRN Q8HRS PRN for PAIN SEVERE for 14 Days, #60 Prescribed by: LUANNE OWUSU MD on 2/25/21 0958 Polyethylene Glycol 3350 (Polyethylene Glycol 3350) 17 Gm Powd.pack, 17 GM PO PRN DAILY PRN for CONSTIPATION 2ND CHOICE for 30 Days, #30 Prescribed by: LUANNE OWUSU MD on 01/15/21957 Sumatriptan Succinate (Imitrex) 100 Mg Tablet, 100 MG PO PRN Q2HR PRN for MIGRAINE HEADACHE, #9 Ref 0 Prescribed by: BILL NAIK MD on 01/20/21 1108 Tramadol Hcl (Tramadol Hcl) 50 Mg Tablet, 50 MG PO PRN Q8HRS PRN for MILD PAIN 1-3, #30 Prescribed by: RAFAEL CAT on 11/20/19857 Last Action: Continued on 01/17/21823 by TONYA LOVETT RN Discontinued Medications Acetaminophen (Acetaminophen) 325 Mg Tablet, 650 MG PO PRN Q6HRS PRN for Headaches, Temp > 101.5F for 30 Days, #100 Prescribed by: LUANNE OWUSU MD on 01/15/21957 Last Action: Continued on 01/17/21743 by TONYA LOVETT RN Alprazolam (Xanax) 0.5 Mg Tablet, 0.5 MG PO PRN TID PRN for ANXIETY / AGITATION, Ref 0 (Reported) Entered as Reported by: ROMAIN ORTEGA on 07/28/14 153 Bisacodyl (Bisacodyl) 10 Mg Supp.rect, 10 MG [place] PRN DAILY PRN for CONSTIPATION for 30 Days, #30 Prescribed by: LUANNE OWUSU MD on 01/15/21957 Last Action: Continued on 01/17/21823 by TONYA LOVETT RN Duloxetine Hcl (Cymbalta) 60 Mg Capsule.dr, 1 CAP PO BID for Depression, #90 Ref 3 (Reported) Entered as Reported by: HOLLI PONCE RN on 10/19/19111 Insulin Aspart (Novolog) 100 Unit/1 Ml Cartridge, 100 UNIT SQ TIDACHC for insulin , (Reported) Entered as Reported by: AMARILIS GONGORA RN on 01/10/21110 Insulin Detemir (Levemir) 100 Unit/1 Ml Vial, 30 UNIT SQ HS for insulin , (Reported) Entered as Reported by: AMARILIS GONGORA RN on 01/10/21110 Mag Hydrox/Al Hydrox/Simeth (Mag-Al Plus Xs Suspension) 30 Ml Oral.susp, 30 ML PO PRN Q3HRS PRN for HEARTBURN / GAS for 10 Days, #240 Prescribed by: LUANNE OWUSU MD on 01/15/21 0958 Metformin Hcl (Metformin Hcl) 500 Mg Tablet, 500 MG PO BIDWMEALS for ANTI- DIABETIC, Ref 0 (Reported) Entered as Reported by: AMARILIS GONGORA RN on 01/10/21110 Polyethylene Glycol 3350 (Polyethylene Glycol 3350) 2,500 Gm Powder, 17 GM PO PRN PRN for CONSTIPATION, #255 Ref 0 (Reported) Entered as Reported by: HOLLI PONCE RN on 10/19/19 0042 Justicifation of Admission Dx: Justifications for Admission: Justification of Admission Dx: Yes BILL NAIK MD Jan 20, 2021 11:21
--- NOTE | 2021-01-20 13:16 | PDOC ---
PROGRESS NOTES Date of Service DATE: 01/20/21 TIME: 13:12 Assessment Problems Medical Problems: (1) Headache Status: Acute (2) Nausea & vomiting Status: Acute (3) Pneumonia Status: Acute Migraine-type headache, better with sumatriptan Increased left parafalcine enhancing mass with thickened enhancement along the falx, compatible with meningioma progression. Potential enhancement within the left garret in the region of the exiting cranial nerves, may relate to artifact. Meningioma occludes a 2 cm segment of the superior sagittal sinus, but it reconstitutes via collaterals Diabetic neuropathy Chronic right L5 radiculopathy General debility Plan Start topiramate for migraine prevention, she has been on this before. Consideration for CGRP inhibitor Switch to oral sumatriptan at discharge I sent in prescriptions for all of these Follow-up with me or my nurse practitioner in 4-6 weeks Okay for discharge Hold on lumbar puncture, we would have to stop her anticoagulation. Supportive care Radiation treatment is commencing for the meningioma. Objective Vital Signs Date Time Temp Pulse Resp B/P (MAP) Pulse Ox O2 Delivery O2 Flow Rate FiO2 01/20/21 11:02 97.8 72 20 152/89 (110) 96 Room Air 97.8 Intake and Output 01/20/21 07:00 Intake Total 400 ml Balance 400 ml Intake Oral 400 ml # Voids 8 # Bowel Movements 3 PHYSICAL EXAM Alert. Oriented to time, place and person. PERRL. EOMI. CN: no focal findings. Muscle tone: increased on the right Muscle strength: 3/5 right DTR: 2+ Plantar reflex: Flexor Gait: not examined in bed. Sensory exam: Decreased on the right side as well as a stocking loss in the left foot. No cerebellar signs elicited. Review of Relevant I have reviewed the following items mustapha (where applicable) has been applied. Labs Laboratory Tests Test 01/18/21 13:17 01/18/21 16:32 01/18/21 20:34 01/19/21 07:35 Glucose (Fingerstick) 166 mg/dL (70-99) 159 mg/dL (70-99) 120 mg/dL (70-99) 113 mg/dL (70-99) Test 01/19/21 09:05 01/19/21 11:55 01/19/21 16:52 01/20/21 06:53 White Blood Count 4.6 x10^3/uL (4.0-11.0) Red Blood Count 3.15 x10^6/uL (3.50-5.40) Hemoglobin 9.9 g/dL (12.0-15.5) Hematocrit 30.1 % (36.0-47.0) Mean Corpuscular Volume 96 fL (79-100) Mean Corpuscular Hemoglobin 32 pg (25-35) Mean Corpuscular Hemoglobin Concent 33 g/dL (31-37) Red Cell Distribution Width 14.3 % (11.5-14.5) Platelet Count 157 x10^3/uL (140-400) Neutrophils (%) (Auto) 46 % (31-73) Lymphocytes (%) (Auto) 40 % (24-48) Monocytes (%) (Auto) 10 % (0-9) Eosinophils (%) (Auto) 3 % (0-3) Basophils (%) (Auto) 1 % (0-3) Neutrophils # (Auto) 2.1 x10^3/uL (1.8-7.7) Lymphocytes # (Auto) 1.9 x10^3/uL (1.0-4.8) Monocytes # (Auto) 0.5 x10^3/uL (0.0-1.1) Eosinophils # (Auto) 0.1 x10^3/uL (0.0-0.7) Basophils # (Auto) 0.0 x10^3/uL (0.0-0.2) Sodium Level 144 mmol/L (136-145) Potassium Level 3.3 mmol/L (3.5-5.1) Chloride Level 109 mmol/L (98-107) Carbon Dioxide Level 28 mmol/L (21-32) Anion Gap 7 (6-14) Blood Urea Nitrogen 6 mg/dL (7-20) Creatinine 0.8 mg/dL (0.6-1.0) Estimated GFR (Cockcroft-Gault) 76.6 Glucose Level 163 mg/dL (70-99) Calcium Level 7.9 mg/dL (8.5-10.1) Glucose (Fingerstick) 152 mg/dL (70-99) 173 mg/dL (70-99) 134 mg/dL (70-99) Test 01/20/21 12:26 Glucose (Fingerstick) 157 mg/dL (70-99) Laboratory Tests Test 01/19/21 16:52 01/20/21 06:53 01/20/21 12:26 Glucose (Fingerstick) 173 mg/dL (70-99) 134 mg/dL (70-99) 157 mg/dL (70-99) Microbiology 01/16/21 Blood Culture - Preliminary, Resulted NO GROWTH AFTER 3 DAYS Medications Current Medications Sodium Chloride 1,000 ml @ 0 mls/hr 1X ONCE IV Last administered on 01/16/21at 14:04; Start 01/16/21 at 12:30; Stop 01/16/21 at 12:31; Status DC Ondansetron HCl (Zofran) 4 mg 1X ONCE IM Last administered on 01/16/21at 14:04; Start 01/16/21 at 12:30; Stop 01/16/21 at 12:31; Status DC Ceftriaxone Sodium (Rocephin) 1 gm 1X ONCE IVP Last administered on 01/16/21at 14:02; Start 01/16/21 at 12:30; Stop 01/16/21 at 12:33; Status DC Vancomycin HCl 1.25 gm/Sodium Chloride 250 ml @ 166.667 mls/hr 1X ONCE IV ; Start 01/16/21 at 12:30; Stop 01/16/21 at 12:34; Status DC Vancomycin HCl 2 gm/Sodium Chloride 500 ml @ 250 mls/hr 1X ONCE IV Last administered on 01/16/21at 14:12; Start 01/16/21 at 12:45; Stop 01/16/21 at 14:44; Status DC Iohexol (Omnipaque 300 Mg/ml) 75 ml 1X ONCE IV ; Start 01/16/21 at 14:00; Stop 01/16/21 at 14:01; Status DC Info (CONTRAST GIVEN -- Rx MONITORING) 1 each PRN DAILY PRN MC SEE COMMENTS; Start 01/16/21 at 14:00; Stop 01/18/21 at 13:59; Status DC Acetaminophen (Tylenol) 1,000 mg 1X ONCE PO Last administered on 01/16/21at 19:57; Start 01/16/21 at 14:45; Stop 01/16/21 at 14:46; Status DC Cefepime HCl (Maxipime) 1 gm BID IVP Last administered on 01/19/21 08:54; Start 01/16/21 at 17:00; Stop 01/19/21 at 11:10; Status DC Ondansetron HCl (Zofran) 4 mg PRN Q8HRS PRN IV NAUSEA/VOMITING; Start 01/16/21 at 17:30; Stop 01/17/21 at 17:29; Status DC Oxycodone/ Acetaminophen (Percocet 7.5/ 325) 1 tab PRN Q4HRS PRN PO MODERATE P AIN 4-6 Last administered on 01/19/21at 08:55; Start 01/17/21 at 00:00 Fentanyl Citrate (Fentanyl 2ml Vial) 50 mcg PRN Q3HRS PRN IVP severe pain Last administered on 01/20/21at 09:17; Start 01/17/21 at 00:00 Acetaminophen (Tylenol) 650 mg PRN Q6HRS PRN PO Temp > 101.5F; Start 01/17/21 at 07:45 Albuterol Sulfate (Ventolin Neb Soln) 2.5 mg PRN Q6HRS PRN INH SHORTNESS OF BREATH; Start 01/17/21 at 07:42 Insulin Human Lispro (HumaLOG) 0-7 UNITS TIDWMEALS SQ Last administered on 01/20/21 12:29; Start 01/17/21 at 08:00 Dextrose (Dextrose 50%-Water Syringe) 12.5 gm PRN Q15MIN PRN IV SEE COMMENTS; Start 01/17/21 at 07:45 Apixaban (Eliquis) 5 mg BID PO Last administered on 01/20/21at 08:21; Start 01/17/21 at 09:00 Bisacodyl (Dulcolax Supp) 10 mg PRN DAILY PRN MO CONSTIPATION; Start 01/17/21 at 08:30 Calcium Carbonate/ Glycine (Oscal) 500 mg TIDAFTMEAL PO Last administered on 01/20/21at 12:25; Start 01/17/21 at 09:00 Cetirizine HCl (ZyrTEC) 10 mg DAILY PO Last administered on 01/20/21 08:20; Start 01/17/21 at 09:00 Cyclosporine (Restasis) 1 drop BID OU Last administered on 01/20/21at 08:15; Start 01/17/21 at 09:00 Fluticasone Propionate (Flonase) 2 spray DAILY NS Last administered on 01/20/21 08:18; Start 01/17/21 at 09:00 Metoprolol Tartrate (Lopressor) 50 mg HS PO Last administered on 01/19/21at 21:10; Start 01/17/21 at 21:00 Pantoprazole Sodium (Protonix) 40 mg DAILYAC PO Last administered on 01/20/21at 06:38; Start 01/17/21 at 09:00 Potassium Chloride (Klor-Con) 20 meq DAILYWBKFT PO Last administered on 01/20/21 08:19; Start 01/17/21 at 09:00 Sucralfate (Carafate) 1 gm BID PO Last administered on 01/20/21 08:20; Start 01/17/21 at 09:00 Tramadol HCl (Ultram) 50 mg PRN Q8HRS PRN PO MILD PAIN 1-3 Last administered on 01/18/21at 19:47; Start 01/17/21 at 08:30 Clonazepam (KlonoPIN) 1 mg HS PO Last administered on 01/19/21 21:11; Start 01/17/21 at 21:00 Non-Formulary Medication (Imatinib Mesylate (Gleevec)) 400 mg HS PO ; Start 01/17/21 at 21:00; Status UNV Metoprolol Tartrate (Lopressor) 100 mg DAILY08 PO Last administered on 01/20/21 08:21; Start 01/17/21 at 09:00 Pregabalin (Lyrica) 150 mg TID PO Last administered on 01/20/21 12:26; Start 01/17/21 at 09:00 Atorvastatin Calcium (Lipitor) 80 mg DAILY PO Last administered on 01/20/21 08:18; Start 01/17/21 at 09:00 Non-Formulary Medication (Tiotropium [place] (Spiriva)) 1 cap DAILY IH ; Start 01/17/21 at 09:00; Status UNV Albuterol/ Ipratropium (Combivent Respimat 20-100 Mcg) 1 puff RTQID INH Last administered on 01/20/21at 12:25; Start 01/17/21 at 12:00 Info (Anti-Coagulation Monitoring By Pharmacy) 1 each PRN DAILY PRN MC SEE COMMENTS Last administered on 01/20/21at 11:06; Start 01/18/21 at 14:15 Amoxicillin/ Clavulanate Potassium (Augmentin 875/ 125mg) 1 tab BID PO Last administered on 01/20/21at 09:12; Start 01/19/21 at 21:00 Sumatriptan Succinate (Imitrex) 6 mg 1X ONCE SQ Last administered on 01/19/21at 13:43; Start 01/19/21 at 13:15; Stop 01/19/21 at 13:16; Status DC Iohexol (Omnipaque 300 Mg/ml) 75 ml 1X ONCE IV Last administered on 01/19/21at 13:30; Start 01/19/21 at 13:30; Stop 01/19/21 at 13:31; Status DC Info (CONTRAST GIVEN -- Rx MONITORING) 1 each PRN DAILY PRN MC SEE COMMENTS; Start 01/19/21 at 13:30; Stop 01/21/21 at 13:29 Iohexol (Omnipaque 300 Mg/ml) 75 ml 1X ONCE IV ; Start 01/19/21 at 14:00; Stop 01/19/21 at 14:06; Status DC Sumatriptan Succinate (Imitrex) 6 mg BID PRN SQ severe mcclure; Start 01/19/21 at 16:15; Stop 01/19/21 at 23:22; Status DC Ondansetron HCl (Zofran) 4 mg PRN Q6HRS PRN IVP NAUSEA/VOMITING; Start 01/19/21 at 20:30 Ondansetron HCl (Zofran Odt) 4 mg PRN Q6HRS PRN PO NAUSEA/VOMITING Last administered on 01/19/21at 21:11; Start 01/19/21 at 20:30 Sumatriptan Succinate (Imitrex) 6 mg PRN BID PRN SQ severe mcclure Last administered on 01/19/21at 23:30; Start 01/19/21 at 23:30 Topiramate (Topamax) 25 mg QHS PO ; Start 01/20/21 at 21:00 Sumatriptan Succinate (Imitrex) 100 mg PRN Q2HR PRN PO MIGRAINE HEADACHE; Start 01/20/21 at 09:00 Active Scripts Active Topamax (Topiramate) 25 Mg Tablet 25 Mg PO QHS Imitrex (Sumatriptan Succinate) 100 Mg Tablet 100 Mg PO PRN Q2HR PRN Amox Tr-K Clv 875-125 Mg Tab (Amoxicillin/Potassium Clav) 1 Each Tablet 1 Tab PO BID 5 Days Admelog (Insulin Lispro) 100 Unit/1 Ml Vial 8 Units SQ TIDWMEALS 30 Days Lantus (Insulin Glargine,Hum.rec.anlog) 100 Unit/1 Ml Vial 25 Unit SQ QHS 30 Days Pantoprazole Sodium (Pantoprazole Sodium) 40 Mg Tablet.dr 40 Mg PO DAILYAC 30 Days Polyethylene Glycol 3350 17 Gm Powd.pack 17 Gm PO PRN DAILY PRN 30 Days Klor-Con M20 (Potassium Chloride) 20 Meq Tab.er.prt 20 Meq PO DAILYWBKFT 14 Days Oyster Shell Calcium (Calcium Carbonate) 500 Mg Tablet 500 Mg PO TIDAFTMEAL 30 Days Percocet 7.5-325 Mg Tablet (Oxycodone/Acetaminophen) 1 Each Tablet 1 Tab PO PRN Q8HRS PRN 14 Days Dicyclomine Hcl 10 Mg Capsule 10 Mg PO PRN QID PRN 14 Days Tramadol Hcl 50 Mg Tablet 50 Mg PO PRN Q8HRS PRN Reported Gleevec (Imatinib Mesylate) 400 Mg Tablet 400 Mg PO HS Spiriva (Tiotropium [place]) 18 Mcg Cap.w.dev 1 Cap IH DAILY Klonopin (Clonazepam) 1 Mg Tablet 1 Tab PO HS Metoprolol Tartrate 50 Mg Tablet 1 Tab PO HS Metoprolol Tartrate 100 Mg Tablet 1 Tab PO DAILY08 Eliquis (Apixaban) 5 Mg Tablet 5 Mg PO BID Lyrica (Pregabalin) 150 Mg Capsule 1 Cap PO TID Crestor (Rosuvastatin Calcium) 40 Mg Tablet 0.5 Tab PO DAILY Restasis (Cyclosporine) 1 Each Droperette 1 Drop EACHEYE BID Proair Hfa Inhaler (Albuterol Sulfate) 8.5 Gm Hfa.aer.ad 1 Puff INH PRN Q6HRS PRN Ondansetron Hcl 4 Mg Tablet 2 Tab PO PRN Q8HRS PRN Fluticasone Propionate Nasal [place] (Fluticasone Propionate) 16 Gm [place].susp 2 [place] NS DAILY Carafate (Sucralfate) 1 Gm Tablet 1 Tab PO BID Meds not given this hospital admission. May resume home medications as approved by Physician. MAY TAKE WHEN AVAILABLE Zyrtec (Cetirizine Hcl) 10 Mg Tablet 1 Tab PO DAILY Vitals/I & O Vital Sign - Last 24 Hours 01/19/21 01/19/21 01/19/21 01/19/21 15:00 19:00 20:20 21:10 Temp 97.9 98.0 97.9 98.0 Pulse 76 80 88 Resp 16 18 B/P (MAP) 112/66 (81) 139/86 (103) 130/84 Pulse Ox 96 97 O2 Delivery Room Air Room Air Room Air 01/19/21 01/20/21 01/20/21 01/20/21 23:00 03:00 06:45 08:00 Temp 99.7 97.7 98.3 99.7 97.7 98.3 Pulse 86 69 68 Resp 18 18 18 B/P (MAP) 132/79 (96) 112/62 (79) 130/76 (94) Pulse Ox 91 100 94 O2 Delivery Room Air Room Air Room Air Room Air 01/20/21 01/20/21 01/20/21 01/20/21 08:21 08:28 09:17 09:45 Pulse 77 77 Resp 20 20 16 B/P (MAP) 136/84 136/84 (101) O2 Delivery Room Air Room Air 01/20/21 11:02 Temp 97.8 97.8 Pulse 72 Resp 20 B/P (MAP) 152/89 (110) Pulse Ox 96 O2 Delivery Room Air Intake and Output 01/19/21 01/19/21 01/20/21 15:00 23:00 07:00 Intake Total 200 ml 200 ml Balance 200 ml [address] angiography of the head INDICATION: Headache. Known meningioma. COMPARISON: CT head without contrast 01/16/2021; MRI of the brain 01/13/2021 TECHNIQUE: CT angiography of the head performed after the intravenous administration of 75 cc Omnipaque 300 contrast. 3D MIP acquisitions were obtained. Encountered areas of stenosis are measured per NASCET criteria. One or more of the following individualized dose reduction techniques were utilized for this examination: 1. Automated exposure control 2. Adjustment of the mA and/or kV according to patient size 3. Use of iterative reconstruction technique. FINDINGS: Redemonstration of an enhancing, lobulated, extra-axial mass along the left aspect of the falx extending to the vertex measuring up to approximately 3.2 cm AP by 1.8 cm transverse by 2.3 cm craniocaudal. This is again consistent with a meningioma. This results in segmental occlusion of the superior sagittal sinus over a length of 2 cm, image 447 series 5, but with maintained opacification of the superior sagittal sinus both anterior and posterior to this segment. The rest of the dural sinuses remain patent as do the dominant cerebral veins extending along the convexities. Small vessels enhance within the mass which appear mostly venous. It is favored that small left anterior cerebral artery branches feed the mass. Dominant draining vein along the right/superior margin of the mass, image 448 series 5. Diminutive but patent left intracranial vertebral artery. Patent basilar artery. Widely patent posterior communicating artery on both the right and left. No branch vessel occlusion or flow-limiting stenosis throughout the adequately assessed anterior, middle and posterior cerebral arteries. High left frontal parietal craniotomy. Small areas of inner table scalloping of the parietal calvarium overlying the meningioma, image 23 series 6. Subtle hypoattenuation of the diploic space over this scalloping is nonspecific for osseus involvement or related to hyperemia. IMPRESSION: 1. Left parafalcine meningioma measuring approximately 3.2 x 1.8 x 2.3 cm that involves/occludes a 2 cm segment of the superior sagittal sinus. The sinus remains well-opacified both anterior and posterior to this area of occlusion as do the major draining veins along the convexities. Small vessels course within the meningioma, appearing predominately on account of veins, though the mass is likely fed by small branches of the left anterior cerebral artery. The dominant draining vein is along the superior/right lateral aspect of the mass, images 448 series 5. 2. Either a small area of osseous involvement by the meningioma or alteration in calvarial density from draining vessels/hyperemia (image 23 series 6 on the current study - image 7 series 11 on the recent MRI). 3. No branch vessel occlusion, flow-limiting stenosis or aneurysm of the adequately assessed anterior and posterior arterial circulation. Justicifation of Admission Dx: Justifications for Admission: Justification of Admission Dx: Yes CISCO KLEIN MD Jan 20, 2021 13:16
[2021-01-20 14:59] VITALS: BP 129/77
[2021-01-20] MEDS: oxyCODONE/APAP 7.5/325 1 TAB TABLET PO PRN (15:36)
--- NOTE | 2021-01-20 17:00 | NUR ---
reviewed discharge instructions with Vero and her sign other. PICC was discontinued without difficulty; tolerated well. will potato picker the script at [facility] and start tonight her antibiotic and migraine medication. all questions answered awaiting fire department
[2021-01-20 17:59] VITALS: BP 130/81
--- NOTE | 2021-01-20 18:02 | NUR ---
EMS here. transferred to [facility]. she had phone dismissed to home. had her personal belongings.
[2021-01-20] MEDS ORDERED: TOPIRAMATE 25 MG TABLET. PO SCH (21:00)
== END 2021-01-20 18:00 | disposition home health service (06) | DRG 871 ==
LOC: ER 12:00 → ED HOLD 16:00 → 6 SOUTH 19:30 → 4 SOUTHEST 01-19 10:49
PROVIDERS: ADMIT Family Medicine; ATTEND Family Medicine
DX: A41.9 Sepsis, unspecified organism (principal); J69.0 Pneumonitis due to inhalation of food and vomit; J98.11 Atelectasis; C92.10 Chronic myeloid leukemia, BCR/ABL-positive, not having achieved remission; D68.61 Antiphospholipid syndrome; G81.91 Hemiplegia, unspecified affecting right dominant side; K52.9 Noninfective gastroenteritis and colitis, unspecified; D32.9 Benign neoplasm of meninges, unspecified; Z20.822 Contact with and (suspected) exposure to COVID-19; F41.9 Anxiety disorder, unspecified; F32.9 Major depressive disorder, single episode, unspecified; D32.0 Benign neoplasm of cerebral meninges; E11.40 Type 2 diabetes mellitus with diabetic neuropathy, unspecified; E78.00 Pure hypercholesterolemia, unspecified; E78.5 Hyperlipidemia, unspecified; G43.919 Migraine, unspecified, intractable, without status migrainosus; I10 Essential (primary) hypertension; I25.10 Atherosclerotic heart disease of native coronary artery without angina pectoris; I27.20 Pulmonary hypertension, unspecified; J45.909 Unspecified asthma, uncomplicated; M54.16 Radiculopathy, lumbar region; Z79.01 Long term (current) use of anticoagulants; Z90.81 Acquired absence of spleen; Z88.1 Allergy status to other antibiotic agents; Z88.5 Allergy status to narcotic agent; Z90.49 Acquired absence of other specified parts of digestive tract; Z90.710 Acquired absence of both cervix and uterus; Z87.891 Personal history of nicotine dependence; Z87.442 Personal history of urinary calculi; Z87.11 Personal history of peptic ulcer disease; Z86.73 Personal history of transient ischemic attack (TIA), and cerebral infarction without residual deficits; Z86.711 Personal history of pulmonary embolism; Z86.011 Personal history of benign neoplasm of the brain; Z83.3 Family history of diabetes mellitus; Z82.49 Family history of ischemic heart disease and other diseases of the circulatory system
CPT/HCPCS: 36415; 36569; 70450; 70496; 71045; 71250; 74176; 80048; 80053; 80329; 81001; 82962; 83605; 84484; 84703; 85007; 85025; 87040; 93005; 96361; 96372; 96374; G0480; J0692; J0696; J1815; J2405; J3010; J3030; J3370; J7030; J7040; Q9967; U0003; 99285-25; G0378

== ENCOUNTER 2021-02-02 23:50 | Observation (INO) | payer OTHER ==
[~2021-02-02] VITALS: Ht 167.6 cm; Wt 126.0 kg
[~2021-02-02 23:50] MED LIST changes: +AMOX1TAB11 PO; +SUMA100T3 PO; +TOPI25TA52 PO
[2021-02-03 00:30] LABS: BASO % 0 % (0-3); EOS # 0.1 x10^3/uL (0.0-0.7); EOS % 2 % (0-3); HEMATOCRIT 32.2 % (36.0-47.0); HEMOGLOBIN 10.7 g/dL (12.0-15.5); LYMPH # 2.2 x10^3/uL (1.0-4.8); LYMPH % 36 % (24-48); MEAN CORPUSCULAR HEMOGLOBIN 31 pg (25-35); MEAN CORPUSCULAR HGB CONC 33 g/dL (31-37); MEAN CORPUSCULAR VOLUME 93 fL (79-100); MONO # 0.5 x10^3/uL (0.0-1.1); MONO % 8 % (0-9); NEUT # 3.3 x10^3/uL (1.8-7.7); NEUT % 54 % (31-73); PLATELET COUNT 295 x10^3/uL (140-400); RED BLOOD COUNT 3.46 x10^6/uL (3.50-5.40); RED CELL DISTRIBUTION WIDTH 13.8 % (11.5-14.5); WHITE BLOOD COUNT 6.1 x10^3/uL (4.0-11.0)
[2021-02-03] MEDS ORDERED: ACETAMINOPHEN 325 MG TABLET. PO ONE (00:30)
[2021-02-03] MEDS ORDERED: ONDANSETRON PF 4 MG/2 ML VIAL. IVP ONE (00:30)
[2021-02-03] MEDS ORDERED: IV NORMAL SALINE 1000ML BAG 1,000 ML IV ONE ×2 (00:30→07:00)
[2021-02-03] MEDS ORDERED: HYDROmorphone 2 MG/ML VIAL IVP ONE (00:30)
--- NOTE | 2021-02-03 00:31 | PHYS DOC ---
Past Medical History Past Medical History: Cancer, CVA, Diabetes-Type II, Hypertension, Other Additional Past Medical Histor: PE, brain tumor, LEUKEMIA, CVA WITH R. SIDED DEFICIT Past Surgical History: Appendectomy, Cholecystectomy, , Hysterectomy, Other Additional Past Surgical Histo: LOW BACK, BRAIN SX-TUMOR Smoking Status: Former Smoker Alcohol Use: None Drug Use: None General Adult EDM: Chief Complaint: HEADACHE HPI: HPI: Patient is a 50 year old female with past medical history of hypertension, right-sided CVA, type 2 diabetes, and brain cancer status post radiation currently taking chemo medications, presents for fever and headache. Patient starting to experiencing headache since 8 PM last night. Described the headache is the worst she ever had and its around the side and the base of her head. Patient reports that she has headaches sometimes in similar location but never this severe. She tried some [id number]-twn-mweibym and her Rx pain medication with no symptomatic relief. Patient had fevers at home and upon EMT evaluation patient had a fever of 101F. Patient denies any recent sick contacts or any exposure to COVID-19. Patient denies chest pain, shortness of air, abdominal pain, change in visual or hearing. Patient is the main historian. Review of Systems: Review of Systems: Review of systems: Constitutional symptoms- No fever, no chills. Eyes- No Discharge, No Visual Loss Respiratory symptoms- No shortness of breath, No wheezing, No Dyspnea on Exertion Cardiovascular Systems; No chest pain, No Palpitations, No syncope Gastrointestinal symptoms: NO abdominal pain, no nausea, no vomiting or diarrhea. Genitourinary symptoms: No dysuria. Musculoskeletal symptoms: No back pain No extremity pain. NEUROLOGICAL Symptoms: Endorses severe headache around the lateral sides, and the base of the head. Heart Score: C/O Chest Pain: No Risk Factors: Risk Factors: DM, Current or recent (<one month) smoker, HTN, HLP, family history of CAD, obesity. Risk Scores: Score 0 - 3: 2.5% MACE over next 6 weeks - Discharge Home Score 4 - 6: 20.3% MACE over next 6 weeks - Admit for Clinical Observation Score 7 - 10: 72.7% MACE over next 6 weeks - Early Invasive Strategies Current Medications: Current Medications Medications (Trade) Dose Ordered Sig/Nikki Start Time Stop Time Status Last Admin Dose Admin Acetaminophen (Tylenol) 650 mg 1X ONCE 3/16/21 00:30 02/03/21 00:31 Hydromorphone HCl (Dilaudid) 1 mg 1X ONCE 02/03/21 00:30 02/03/21 00:31 Ondansetron HCl (Zofran) 4 mg 1X ONCE 02/03/21 00:30 02/03/21 00:31 Sodium Chloride 1,000 ml @ 1,000 mls/hr 1X ONCE 02/03/21 00:30 02/03/21 01:29 Allergies: Allergies: Allergies Coded Allergies Type Severity Reaction Last Updated Verified azithromycin Allergy Intermediate 10/12/19 Yes codeine Allergy Intermediate 05/06/17 Yes morphine Allergy Intermediate 11/01/19 Yes I S O L A T I O N *CONTACT* Allergy Unknown 11/16/19 Yes Physical Exam: PE: General: alert, no acute distress. Skin: warm, dry and intact. Head:: Normocephalic, atraumatic. Neck: Trachea midline. Eyes: EOMI, Normal conjunctiva, No drainage CARDIOVASCULAR: Regular rate and rhythm RESPIRATORY: No respiratory distress Back: Full range of motion. MUSCULOSKELETAL: Full range of motion of bilateral upper and lower extremities. GASTROINTESTINAL: Abdomen soft without rebound or guarding. NEUROLOGICAL: Alert and noted to person, place and time. No neurological deficits observed Psychiatric: Cooperative. Normal judgment EKG: EKG: KG performed at 1917 heart rate [address] elevation no ST depression no acute OK [] Radiology/Procedures: Radiology/Procedures: [] Impression: Chest AP portable at 12:30 AM: Reason for examination: Headache and fever. Comparison is made to previous study dated 01/17/2021. Inspiratory effort is poor. Heart and mediastinum are unchanged. Lung whitten show some elevation of the right hemidiaphragm. No infiltrates or pleural effusions are evident. No acute bony abnormality seen. IMPRESSION: For inspiratory effort with elevated right hemidiaphragm. No gross infiltrates or pleural effusions evident. CT head without contrast: Comparison is made to previous study dated 01/16/2021. Helical images were obtained through the brain with no contrast administered. Exposure: One or more of the following individualized dose reduction techniques were utilized for this examination: 1. Automated exposure control 2. Adjustment of the mA and/or kV according to patient size 3. Use of iterative reconstruction technique. Ventricular systems are symmetric and not abnormally dilated. No midline shift is seen. There is no evidence of intracranial hemorrhage, infarct, mass or edema. There are some chronic changes of encephalomalacia in the left parietal convexity with previous left parietal convexity craniotomy. No abnormalities of seen at the orbits. The paranasal sinuses and mastoid air cells are clear. No acute skull abnormality is seen. IMPRESSION: No acute intracranial abnormality evident. Chronic postop change with some encephalomalacia in the left parietal convexity without change. Electronically signed by: Karla Garcia MD (02/03/2021 12:59 AM) [facility] Course & Med Decision Making: Course & Med Decision Making Pertinent Labs and Imaging studies reviewed. (See chart for details) [] Patient was evaluated for chief complaint. Work-up consisted of laboratory analysis radiologic imaging. Results reviewed and discussed with patient. CT imaging head negative for acute abnormalities. Urine consistent with urinary tract infection. Patient's pain treated with Dilaudid with improvement. Patient received Rocephin for urinary tract infection. Patient's fever was treated with Tylenol. Amanda Disclaimer: Amanda Disclaimer: This electronic medical record was generated, in whole or in part, using a voice recognition dictation system. Departure Departure Impression: Primary Impression: Headache Additional Impressions: Fever Person under investigation for COVID-19 UTI (urinary tract infection) Disposition: ADMITTED INPT THIS HOSP Condition: STABLE Referrals: KAVYA ELIAS DO (PCP) ROWAN RIVAS DO Feb 03, 2021 00:31
[2021-02-03 00:42] LABS: CALCIUM 8.1 mg/dL (8.5-10.1); CREATININE 0.9 mg/dL (0.6-1.0); GFR 66.8; POTASSIUM 3.7 mmol/L (3.5-5.1)
[2021-02-03 00:46] LABS: ALBUMIN 3.3 g/dL (3.4-5.0); TOTAL BILIRUBIN 0.3 mg/dL (0.2-1.0); TOTAL PROTEIN 6.7 g/dL (6.4-8.2)
[2021-02-03 00:54] LABS: INFLUENZA A PATIENT NEGATIVE (NEGATIVE); INFLUENZA B PATIENT NEGATIVE (NEGATIVE)
--- NOTE | 2021-02-03 01:02 | RAD ---
Chest AP portable at 12:30 AM: Reason for examination: Headache and fever. Comparison is made to previous study dated 01/17/2021. Inspiratory effort is poor. Heart and mediastinum are unchanged. Lung whitten show some elevation of t he right hemidiaphragm. No infiltrates or pleural effusions are evident. No acute bony abnormality se en. IMPRESSION: For inspiratory effort with elevated right hemidiaphragm. No gross infiltrates or pleural effusions e vident. CT head without contrast: Comparison is made to previous study dated 01/16/2021. Helical images were obtained through the brain with no contrast administered. Exposure: One or more of the following individualized dose reduction techniques were utilized for thi s examination: 1. Automated exposure control 2. Adjustment of the mA and/or kV according to patient size 3. Use of iterative reconstruction technique. Ventricular systems are symmetric and not abnormally dilated. No midline shift is seen. There is no e vidence of intracranial hemorrhage, infarct, mass or edema. There are some chronic changes of encepha lomalacia in the left parietal convexity with previous left parietal convexity craniotomy. No abnorma lities of seen at the orbits. The paranasal sinuses and mastoid air cells are clear. No acute skull a bnormality is seen. IMPRESSION: No acute intracranial abnormality evident. Chronic postop change with some encephalomalacia in the left parietal convexity without change. Electronically signed by: Karla Garcia MD (02/03/2021 12:59 AM) ANG[facility]LICA
[2021-02-03 01:17] LABS: BILIRUBIN,URINE NEGATIVE (NEG); CLARITY,URINE CLEAR; COLOR,URINE YELLOW; NITRITE,URINE NEGATIVE (NEG); PH,URINE 7.5 (<5.0-8.0); PROTEIN,URINE 30 mg/dL (NEG-TRACE)
[2021-02-03 01:24] LABS: AMORPHOUS SEDIMENT,UR PRESENT /HPF; BACTERIA,URINE FEW /HPF (0-FEW); RBC,URINE OCC /HPF (0-2)
[2021-02-03] MEDS ORDERED: ONDANSETRON PF 4 MG/2 ML VIAL. IV PRN (01:30)
[2021-02-03 03:00] VITALS: BP 121/66
[2021-02-03] MEDS: HYDROmorphone 2 MG/ML VIAL IVP PRN ×2 (03:55→09:03)
[2021-02-03] MEDS ORDERED: INSU100V13 SQ (04:21)
[2021-02-03] MEDS ORDERED: TOPI50TA38 PO (04:21)
--- NOTE | 2021-02-03 06:50 | PDOC1 ---
History and Physical Date of Admission Date of Admission DATE: 02/03/21 TIME: 06:30 Identification/Chief Complaint Chief Complaint Headache Source Source: Chart review, Patient History of Present Illness History of Present Illness Ms Alejo is a 49-year-old female with PMHx Anxiety, CAD, Diabetes, High Cholesterol, Hypertension, Kidney Stones, Ovarian Cyst, Pneumonia, history pulmonary embolism, and meningioma, who presents to the ED with complaints of acute headache since yesterday evening. She reports a left-sided, frontal, throbbing headache, 05/30. She is currently undergoing chemotherapy and radiation for her meningioma and has history of similar headaches, but never this severe. She has taken tyyv-edx-gaphhri and prescription medications without relief. Upon EMS arrival she was noted to be febrile at 101 F. She denies any recent sick contacts, shortness of breath, chest pain, or known COVID-19 exposure. Chest x-ray and CT head on admission showed no acute pathology. Will admit patient for further medical management. Past Medical History Cardiovascular: HTN, Hyperlipidemia, Other Pulmonary: Asthma, Pulmonary embolus, Other CENTRAL NERVOUS SYSTEM: Periperal neuropathy, Other GI: Peptic Ulcer disease, Other Heme/Onc: Cancer Hepatobiliary: No pertinent hx Psych: Anxiety, Depression, Other Musculoskeletal: low back pain Rheumatologic: No pertinent hx Infectious disease: No pertinent hx Renal/: Other Endocrine: Diabetes Past Surgical History Past Surgical History: Appendectomy, Cholecystectomy, , Hysterectomy, Other Family History Family History: Cancer, Coronary Artery Disease, Hypertension Social History Smoke: No ALCOHOL: occassional Drugs: None Current Problem List Problem List Problems Medical Problems: (1) Fever Status: Acute (2) Headache Status: Acute (3) Person under investigation for COVID-19 Status: Acute (4) UTI (urinary tract infection) Status: Acute Current Medications Current Medications Current Medications Acetaminophen (Tylenol) 650 mg 1X ONCE PO Last administered on 02/03/21at 00:59; Start 02/03/21 at 00:30; Stop 02/03/21 at 00:31; Status DC Hydromorphone HCl (Dilaudid) 1 mg 1X ONCE IVP Last administered on 02/03/21at 01:05; Start 02/03/21 at 00:30; Stop 02/03/21 at 00:31; Status DC Sodium Chloride 1,000 ml @ 1,000 mls/hr 1X ONCE IV Last administered on 02/03/21at 00:55; Start 02/03/21 at 00:30; Stop 02/03/21 at 01:29; Status DC Ondansetron HCl (Zofran) 4 mg 1X ONCE IVP Last administered on 02/03/21at 01:00; Start 02/03/21 at 00:30; Stop 02/03/21 at 00:31; Status DC Ondansetron HCl (Zofran) 4 mg PRN Q8HRS PRN IV NAUSEA/VOMITING 1ST CHOICE; Start 02/03/21 at 01:30; Stop 02/04/21 at 01:29 Hydromorphone HCl (Dilaudid) 1 mg PRN Q4HRS PRN IVP SEVERE PAIN 7-10 Last administered on 02/03/21at 03:55; Start 02/03/21 at 03:45 Active Scripts Active Imitrex (Sumatriptan Succinate) 100 Mg Tablet 100 Mg PO PRN Q2HR PRN Admelog (Insulin Lispro) 100 Unit/1 Ml Vial 8 Units SQ TIDWMEALS 30 Days Pantoprazole Sodium (Pantoprazole Sodium) 40 Mg Tablet.dr 40 Mg PO DAILYAC 30 Days Polyethylene Glycol 3350 17 Gm Powd.pack 17 Gm PO PRN DAILY PRN 30 Days Klor-Con M20 (Potassium Chloride) 20 Meq Tab.er.prt 20 Meq PO DAILYWBKFT 14 Days Oyster Shell Calcium (Calcium Carbonate) 500 Mg Tablet 500 Mg PO TIDAFTMEAL 30 Days Percocet 7.5-325 Mg Tablet (Oxycodone/Acetaminophen) 1 Each Tablet 1 Tab PO PRN Q8HRS PRN 14 Days Dicyclomine Hcl 10 Mg Capsule 10 Mg PO PRN QID PRN 14 Days Tramadol Hcl 50 Mg Tablet 50 Mg PO PRN Q8HRS PRN Reported Topamax (Topiramate) 50 Mg Tablet 75 Mg PO BID Levemir (Insulin Detemir) 100 Unit/1 Ml Vial 30 Unit SQ HS Gleevec (Imatinib Mesylate) 400 Mg Tablet 400 Mg PO HS Spiriva (Tiotropium [place]) 18 Mcg Cap.w.dev 1 Cap IH DAILY Klonopin (Clonazepam) 1 Mg Tablet 1 Tab PO HS Metoprolol Tartrate 50 Mg Tablet 1 Tab PO HS Metoprolol Tartrate 100 Mg Tablet 1 Tab PO DAILY08 Eliquis (Apixaban) 5 Mg Tablet 5 Mg PO BID Lyrica (Pregabalin) 150 Mg Capsule 1 Cap PO TID Crestor (Rosuvastatin Calcium) 40 Mg Tablet 0.5 Tab PO DAILY Restasis (Cyclosporine) 1 Each Droperette 1 Drop EACHEYE BID Proair Hfa Inhaler (Albuterol Sulfate) 8.5 Gm Hfa.aer.ad 1 Puff INH PRN Q6HRS PRN Ondansetron Hcl 4 Mg Tablet 2 Tab PO PRN Q8HRS PRN Fluticasone Propionate Nasal [place] (Fluticasone Propionate) 16 Gm [place].susp 2 [place] NS DAILY Carafate (Sucralfate) 1 Gm Tablet 1 Tab PO BID Meds not given this hospital admission. May resume home medications as approved by Physician. MAY TAKE WHEN AVAILABLE Zyrtec (Cetirizine Hcl) 10 Mg Tablet 1 Tab PO DAILY Allergies Allergies: Coded Allergies: azithromycin (Verified Allergy, Intermediate, 10/12/19) codeine (Verified Allergy, Intermediate, 05/06/17) morphine (Verified Allergy, Intermediate, 11/01/19) Tolerates hydromorphone and oxycodone I S O L A T I O N *CONTACT* (Verified Allergy, Unknown, 11/16/19) ESBL ROS Review of System GENERAL: No history of weight change, weakness or fevers. SKIN: No bruising, hair changes or rashes. EYES: No blurred, double or loss of vision. NOSE AND THROAT: No history of nosebleeds, hoarseness or sore throat. HEART: Denies chest pain, denies palpitations. LUNGS: Denies cough, hemoptysis, wheezing or shortness of breath. GASTROINTESTINAL: Denies nausea, vomiting, abdominal pain. GENITOURINARY: Denies dysuria, frequency, urgency, hematuria. NEUROLOGIC: Headache. Denies history of numbness, tingling, tremor or weakness. PSYCHIATRIC: Denies anxiety, denies depression. ENDOCRINE: No history of heat or cold intolerance, polyuria or polydipsia. EXTREMITIES: Denies muscle weakness, joint pain, pain on walking or stiffness. Physical Exam Physical Exam General: Alert, Oriented X3, Cooperative, moderate distress HEENT: PERRLA, EOMI Lungs: Clear to auscultation, Normal air movement Heart: RRR, no murmurs Cardiovascular: S1, S2 Abdomen: Normal bowel sounds, Soft, No tenderness Extremities: No clubbing, No cyanosis Skin: No rashes, No significant lesion Neuro: Normal speech, Normal tone, Sensation intact Psych/Mental Status: Mental status NL, Mood NL Vitals Vitals Vital Signs Date Time Temp Pulse Resp B/P (MAP) Pulse Ox O2 Delivery O2 Flow Rate FiO2 02/03/21 03:00 97.2 87 14 121/66 (84) 100 97.2 02/03/21 02:58 Nasal Cannula 2.0 Labs Labs Laboratory Tests Test 02/03/21 00:13 02/03/21 00:53 White Blood Count 6.1 x10^3/uL (4.0-11.0) Red Blood Count 3.46 x10^6/uL (3.50-5.40) Hemoglobin 10.7 g/dL (12.0-15.5) Hematocrit 32.2 % (36.0-47.0) Mean Corpuscular Volume 93 fL (79-100) Mean Corpuscular Hemoglobin 31 pg (25-35) Mean Corpuscular Hemoglobin Concent 33 g/dL (31-37) Red Cell Distribution Width 13.8 % (11.5-14.5) Platelet Count 295 x10^3/uL (140-400) Neutrophils (%) (Auto) 54 % (31-73) Lymphocytes (%) (Auto) 36 % (24-48) Monocytes (%) (Auto) 8 % (0-9) Eosinophils (%) (Auto) 2 % (0-3) Basophils (%) (Auto) 0 % (0-3) Neutrophils # (Auto) 3.3 x10^3/uL (1.8-7.7) Lymphocytes # (Auto) 2.2 x10^3/uL (1.0-4.8) Monocytes # (Auto) 0.5 x10^3/uL (0.0-1.1) Eosinophils # (Auto) 0.1 x10^3/uL (0.0-0.7) Basophils # (Auto) 0.0 x10^3/uL (0.0-0.2) Sodium Level 142 mmol/L (136-145) Potassium Level 3.7 mmol/L (3.5-5.1) Chloride Level 107 mmol/L (98-107) Carbon Dioxide Level 27 mmol/L (21-32) Anion Gap 8 (6-14) Blood Urea Nitrogen 11 mg/dL (7-20) Creatinine 0.9 mg/dL (0.6-1.0) Estimated GFR (Cockcroft-Gault) 66.8 BUN/Creatinine Ratio 12 (6-20) Glucose Level 239 mg/dL (70-99) Lactic Acid Level 1.6 mmol/L (0.4-2.0) Calcium Level 8.1 mg/dL (8.5-10.1) Total Bilirubin 0.3 mg/dL (0.2-1.0) Aspartate Amino Transf (AST/SGOT) 28 U/L (15-37) Alanine Aminotransferase (ALT/SGPT) 44 U/L (14-59) Alkaline Phosphatase 100 U/L (46-116) Total Protein 6.7 g/dL (6.4-8.2) Albumin 3.3 g/dL (3.4-5.0) Albumin/Globulin Ratio 1.0 (1.0-1.7) Influenza Type A Antigen Negative (NEGATIVE) Influenza Type B Antigen Negative (NEGATIVE) Urine Collection Type Unknown Urine Color Yellow Urine Clarity Clear Urine pH 7.5 (<5.0-8.0) Urine Specific [place] >=1.030 (1.000-1.030) Urine Protein 30 mg/dL (NEG-TRACE) Urine Glucose (UA) Negative mg/dL (NEG) Urine Ketones (Stick) Negative mg/dL (NEG) Urine Blood Negative (NEG) Urine Nitrite Negative (NEG) Urine Bilirubin Negative (NEG) Urine Urobilinogen Dipstick 1.0 mg/dL (0.2 mg/dL) Urine Leukocyte Esterase Moderate (NEG) Urine RBC Occ /HPF (0-2) Urine WBC 11-20 /HPF (0-4) Urine Squamous Epithelial Cells Mod /LPF Urine Renal Epithelial Cells Occ /LPF Urine Amorphous Sediment Present /HPF Urine Bacteria Few /HPF (0-FEW) Urine Mucus Mod /LPF Laboratory Tests Test 02/03/21 00:13 02/03/21 00:53 White Blood Count 6.1 x10^3/uL (4.0-11.0) Red Blood Count 3.46 x10^6/uL (3.50-5.40) Hemoglobin 10.7 g/dL (12.0-15.5) Hematocrit 32.2 % (36.0-47.0) Mean Corpuscular Volume 93 fL (79-100) Mean Corpuscular Hemoglobin 31 pg (25-35) Mean Corpuscular Hemoglobin Concent 33 g/dL (31-37) Red Cell Distribution Width 13.8 % (11.5-14.5) Platelet Count 295 x10^3/uL (140-400) Neutrophils (%) (Auto) 54 % (31-73) Lymphocytes (%) (Auto) 36 % (24-48) Monocytes (%) (Auto) 8 % (0-9) Eosinophils (%) (Auto) 2 % (0-3) Basophils (%) (Auto) 0 % (0-3) Neutrophils # (Auto) 3.3 x10^3/uL (1.8-7.7) Lymphocytes # (Auto) 2.2 x10^3/uL (1.0-4.8) Monocytes # (Auto) 0.5 x10^3/uL (0.0-1.1) Eosinophils # (Auto) 0.1 x10^3/uL (0.0-0.7) Basophils # (Auto) 0.0 x10^3/uL (0.0-0.2) Sodium Level 142 mmol/L (136-145) Potassium Level 3.7 mmol/L (3.5-5.1) Chloride Level 107 mmol/L (98-107) Carbon Dioxide Level 27 mmol/L (21-32) Anion Gap 8 (6-14) Blood Urea Nitrogen 11 mg/dL (7-20) Creatinine 0.9 mg/dL (0.6-1.0) Estimated GFR (Cockcroft-Gault) 66.8 BUN/Creatinine Ratio 12 (6-20) Glucose Level 239 mg/dL (70-99) Lactic Acid Level 1.6 mmol/L (0.4-2.0) Calcium Level 8.1 mg/dL (8.5-10.1) Total Bilirubin 0.3 mg/dL (0.2-1.0) Aspartate Amino Transf (AST/SGOT) 28 U/L (15-37) Alanine Aminotransferase (ALT/SGPT) 44 U/L (14-59) Alkaline Phosphatase 100 U/L (46-116) Total Protein 6.7 g/dL (6.4-8.2) Albumin 3.3 g/dL (3.4-5.0) Albumin/Globulin Ratio 1.0 (1.0-1.7) Influenza Type A Antigen Negative (NEGATIVE) Influenza Type B Antigen Negative (NEGATIVE) Urine Collection Type Unknown Urine Color Yellow Urine Clarity Clear Urine pH 7.5 (<5.0-8.0) Urine Specific [place] >=1.030 (1.000-1.030) Urine Protein 30 mg/dL (NEG-TRACE) Urine Glucose (UA) Negative mg/dL (NEG) Urine Ketones (Stick) Negative mg/dL (NEG) Urine Blood Negative (NEG) Urine Nitrite Negative (NEG) Urine Bilirubin Negative (NEG) Urine Urobilinogen Dipstick 1.0 mg/dL (0.2 mg/dL) Urine Leukocyte Esterase Moderate (NEG) Urine RBC Occ /HPF (0-2) Urine WBC 11-20 /HPF (0-4) Urine Squamous Epithelial Cells Mod /LPF Urine Renal Epithelial Cells Occ /LPF Urine Amorphous Sediment Present /HPF Urine Bacteria Few /HPF (0-FEW) Urine Mucus Mod /LPF Images Images CT HEAD WO CONTRAST Chest AP portable at 12:30 AM: Reason for examination: Headache and fever. Comparison is made to previous study dated 01/17/2021. Inspiratory effort is poor. Heart and mediastinum are unchanged. Lung whitten show some elevation of the right hemidiaphragm. No infiltrates or pleural effusions are evident. No acute bony abnormality seen. IMPRESSION: For inspiratory effort with elevated right hemidiaphragm. No gross infiltrates or pleural effusions evident. CT head without contrast: Comparison is made to previous study dated 01/16/2021. Helical images were obtained through the brain with no contrast administered. Exposure: One or more of the following individualized dose reduction techniques were utilized for this examination: 1. Automated exposure control 2. Adjustment of the mA and/or kV according to patient size 3. Use of iterative reconstruction technique. Ventricular systems are symmetric and not abnormally dilated. No midline shift is seen. There is no evidence of intracranial hemorrhage, infarct, mass or edema. There are some chronic changes of encephalomalacia in the left parietal convexity with previous left parietal convexity craniotomy. No abnormalities of seen at the orbits. The paranasal sinuses and mastoid air cells are clear. No acute skull abnormality is seen. IMPRESSION: No acute intracranial abnormality evident. Chronic postop change with some encephalomalacia in the left parietal convexity without change. CHEST AP ONLY Chest AP portable at 12:30 AM: Reason for examination: Headache and fever. Comparison is made to previous study dated 01/17/2021. Inspiratory effort is poor. Heart and mediastinum are unchanged. Lung whitten show some elevation of the right hemidiaphragm. No infiltrates or pleural effusions are evident. No acute bony abnormality seen. IMPRESSION: For inspiratory effort with elevated right hemidiaphragm. No gross infiltrates or pleural effusions evident. CT head without contrast: Comparison is made to previous study dated 01/16/2021. Helical images were obtained through the brain with no contrast administered. Exposure: One or more of the following individualized dose reduction techniques were utilized for this examination: 1. Automated exposure control 2. Adjustment of the mA and/or kV according to patient size 3. Use of iterative reconstruction technique. Ventricular systems are symmetric and not abnormally dilated. No midline shift is seen. There is no evidence of intracranial hemorrhage, infarct, mass or edema. There are some chronic changes of encephalomalacia in the left parietal convexity with previous left parietal convexity craniotomy. No abnormalities of seen at the orbits. The paranasal sinuses and mastoid air cells are clear. No acute skull abnormality is seen. IMPRESSION: No acute intracranial abnormality evident. Chronic postop change with some encephalomalacia in the left parietal convexity without change. VTE Prophylaxis Ordered VTE Prophylaxis Devices: No VTE Pharmacological Prophylaxi: Yes Assessment/Plan Assessment/Plan Intractable headache DM2 with hyperglycemia Hemangioma PUI Plan: UA shows moderate leukocyte esterase, urine WBC 1120; will treat with Rocephin Provide IV fluids Pain management and antiemetics Influenza negative, COVID-19 pending Resume home medications FEN - Cardiac diet PPX - Eliquis FULL CODE Dispo - observation for above Justifications for Admission Other Justification Chest pain, hematochezia BILL NAIK MD Feb 03, 2021 06:50
[2021-02-03 07:00] VITALS: BP 89/66
[2021-02-03] MEDS ORDERED: BISACODYL 10 MG SUPP.RECT. PR PRN (07:00)
[2021-02-03] MEDS ORDERED: ZOLPIDEM 5 MG TABLET. PO PRN (07:00)
[2021-02-03] MEDS ORDERED: MAG HYDROX/ALUMINUM HYD/SIMETH 30 ML ORAL.SUSP PO PRN (07:00)
[2021-02-03] MEDS ORDERED: MAGNESIUM HYDROXIDE 2,400 MG/30 ML ORAL.SUSP. PO PRN (07:00)
[2021-02-03] MEDS ORDERED: cefTRIAXone IV Push 1 GM VIAL. IVP SCH (07:00)
[2021-02-03] MEDS ORDERED: ACETAMINOPHEN 325 MG TABLET. PO PRN (07:00)
[2021-02-03] MEDS ORDERED: CALCIUM CARBONATE 500 MG TAB.CHEW PO PRN (07:00)
[2021-02-03] MEDS ORDERED: IV DEXTROSE 5% 250 ML BAG. IV PRN (07:00)
[2021-02-03] MEDS ORDERED: KETOROLAC 30 MG/ML VIAL. IVP PRN (07:00)
[2021-02-03] MEDS ORDERED: POLYETHYLENE GLYCOL 3350 17 GM PACKET. PO PRN (07:00)
[2021-02-03] MEDS ORDERED: DEXTROSE 50% 25 GM / 50ML DISP.SYRIN. IV PRN (07:00)
[2021-02-03] MEDS ORDERED: KETOROLAC 15 MG/ML VIAL. IVP PRN (07:00)
[2021-02-03] MEDS ORDERED: ONDANSETRON PF 4 MG/2 ML VIAL. IVP PRN (07:00)
[2021-02-03] MEDS ORDERED: oxyCODONE/APAP 7.5/325 1 TAB TABLET PO PRN (07:00)
[2021-02-03] MEDS ORDERED: PROMETHAZINE 12.5 MG TABLET. PO PRN (07:15)
[2021-02-03] MEDS ORDERED: ANTI-COAG MONITOR BY PHARMACY. MC PRN (07:15)
[2021-02-03] MEDS ORDERED: PANTOPRAZOLE 40 MG TABLET.DR. PO SCH (07:30)
[2021-02-03] MEDS ORDERED: IPRATRPIUM/ALBUTEROL 0.5/2.5MG 3 ML NEBU. NEB SCH (08:00)
[2021-02-03] MEDS: CALCIUM CARBONATE 500 MG TABLET PO SCH ×2 (09:00→13:24)
[2021-02-03] MEDS ORDERED: NON FORMULARY ITEM (Tiotropium Bromide (Spiriva) 1 CAP) IH SCH (09:00)
[2021-02-03] MEDS ORDERED: TOPIRAMATE 25 MG TABLET. PO SCH (09:00)
[2021-02-03] MEDS ORDERED: APIXABAN 5 MG TABLET. PO SCH (09:00)
[2021-02-03] MEDS: INSULIN LISPRO 300 UNITS/3 ML VIAL. SQ SCH ×2 (10:05→13:29)
[2021-02-03 11:00] VITALS: BP 99/64
--- NOTE | 2021-02-03 11:32 | NUR ---
LORRAINE following for discharge planning. Spoke with RN and reviewed chart. SW familiar with this pt from previous admission. Pt at high risk for readmission. Pt from home with spouse and HCBS through [employer]. Pt has had [facility] from [facility] in the past. Pt discharged home on room air on last admission. Pt currently on 2l 02, IV Rocephin. Pt uses a celia for transfers. Possible discharge home today, 02/03. LORRAINE asked about blood gas for possible home 02 setup. SW following. Addendum: 02/03/21 at 1551 by NOE PETERS Blood gas results indicated that pt does not qualify for home 02. Pt to discharge home today, 02/03 self-care. LORRAINE met with pt prior to discharge. Pt asked SW to contact her Medicaid CM Ruthlissette Lester and provided contact info. [facility] for Ruth at [phone] to coordinate care. Pt asking about a monthly nurse visit to arrange medications. LORRAINE informed pt that her pharmacy can do medication box setups. Pt does have HCBS through [employer]. Pt to discharge downstairs for out-patient radiation and then return home via Medicaid transport. LORRAINE called [place] [facility] Medicaid Transportation line and arranged for transportation home. Ride Trip # [id number]. LORRAINE called and spoke with Caterina with out-patient radiation ([phone]) to coordinate care. No further SW needs at this time. Addendum: 02/03/21 at 1707 by NOE PETERS Caterina called to check on status of pt's transport. LORRAINE explained that [place] Medicaid gives a three hour window so that it could be anytime between 1430 and 1730. LORRAINE provided contact number for [place] Medicaid transportation ( ) and ride trip number ([id number]). Nathalia from the clinic then called to say pt does not have her motorized wc for transport via Medicaid transport but that pt is in a [facility] wheelchair. Pt is not able to stand to transfer per her report and requires a celia lift. LORRAINE completed PCS form and called [facility]. LORRAINE informed that they don't have a bariatric ambulance transport at this time and to call [facility]. LORRAINE called [facility] and they would not be able to get pt prior to 9pm and would cost over $600. LORRAINE called [facility] and while they can't transfer pt out of [facility] wc they will cost about $150. LORRAINE arranged for transport at 6:30pm and provided them pt's cell number to call her if they can arrive sooner. Pt cell number is [phone]. Pt waiting at main entrance of the hospital. LORRAINE went down and met with pt and provided contact information for [facility]. Pt's spouse at work but can assist with transferring pt once he gets home. LORRAINE called [facility] back to confirm they are NOT picking pt up. LORRAINE spoke with Fransico, who confirmed no [facility] transport. No further LORRAINE needs at this time.
--- NOTE | 2021-02-03 13:27 | SNU/HH DC ---
DISCHARGE WITH HOME HEALTH DISCHARGE INFORMATION: Discharge Date: Feb 03, 2021 Final Diagnosis: Problems Medical Problems: (1) Fever Status: Acute (2) Headache Status: Acute (3) Person under investigation for COVID-19 Status: Acute (4) UTI (urinary tract infection) Status: Acute Condition on Discharge: Stable CODE STATUS: Code Status: Full HOME HEALTH: Face to Face: I certify this patient is under my care and that I, or a nurse practitioner or physician's life science research assistant working with me, had a face to face encounter that meets the physician face to face encounter requirements with this patient on 02/03/2021. RN For Eval/Treatment: Yes Pt Meets Homebound Status: Unsteady balance w/ amb,, Extreme weakness w/ amb., Limited distance walking POST DISCHARGE ORDERS: Activity Instructions for Disc: Activity as tolerated Weight Bearing Status after Di: No restrictions, As tolerated Bathing Instructions: Shower-keep dressing dry, No Tub Bath until see DIET AFTER DISCHARGE: Cardiac Wound/Incision Care: No wound care needed CHECKS AFTER DISCHARGE: Checks after discharge: Check blood press - daily, Check blood sugar, ac/hs, Check your Temp as needed, Weigh Yourself Daily TREATMENT/EQUIPMENT ORDERS: Adaptive Equipment Issued: None Discharge Respiratory Equipmen: Oxygen CERTIFICATION STATEMENT: Certification Statement: Certification Statement: Based on the above finding, I certify that this patient is confined to the home and needs intermittent alf care, physical therapy and/or speech therapy, or continues to need occupational therapy.~ This patient is under my care, and I have initiated the establishment of the plan of care.~ This patient will be followed by myself or a community physician who will periodically review the plan of care. Home Meds Active Scripts Sumatriptan Succinate (IMITREX) 100 Mg Tablet, 100 MG PO PRN Q2HR PRN for MIGRAINE HEADACHE, #9 TAB 0 Refills Prov:BILL NAIK MD 01/20/21 Insulin Lispro (Admelog) 100 Unit/1 Ml Vial, 8 UNITS SQ TIDWMEALS for DIABETES for 30 Days, #2 EACH Prov:LUANNE OWUSU MD 01/15/21 Pantoprazole Sodium (PANTOPRAZOLE SODIUM ) 40 Mg Tablet.dr 40 MG PO DAILYAC for GERD for 30 Days, #30 TAB.SR Prov:LUANNE OWUSU MD 01/15/21 Polyethylene Glycol 3350 (POLYETHYLENE GLYCOL 3350) 17 Gm Powd.pack, 17 GM PO PRN DAILY PRN for CONSTIPATION 2ND CHOICE for 30 Days, #30 PKT Prov:LUANNE OWUSU MD 01/15/21 Potassium Chloride (KLOR-CON M20) 20 Meq Tab.er.prt, 20 MEQ PO DAILYWBKFT for SUPPLEMENT for 14 Days, #14 TAB.SR Prov:LUANNE OWUSU MD 01/15/21 Calcium Carbonate ([place] SHELL CALCIUM) 500 Mg Tablet, 500 MG PO TIDAFTMEAL for BONE HEALTH for 30 Days, #90 TAB Prov:LUANNE OWUSU MD 01/15/21 Oxycodone/Apap 7.5-325 (PERCOCET 7.5-325 MG TABLET ) 1 Each Tablet, 1 TAB PO PRN Q8HRS PRN for PAIN SEVERE for 14 Days, #60 TAB Prov:LUANNE OWUSU MD 01/15/21 Dicyclomine Hcl (DICYCLOMINE HCL) 10 Mg Capsule, 10 MG PO PRN QID PRN for ABDOMINAL CRAMPS for 14 Days, #60 CAP Prov:LUANNE OWUSU MD 01/15/21 Tramadol Hcl (TRAMADOL HCL) 50 Mg Tablet, 50 MG PO PRN Q8HRS PRN for MILD PAIN 1-3, #30 TAB Prov:RAFAEL CAT MD 11/20/19 Reported Medications Topiramate (TOPAMAX) 50 Mg Tablet, 75 MG PO BID for VYAS, TAB 02/03/21 Insulin Detemir (LEVEMIR) 100 Unit/1 Ml Vial, 30 UNIT SQ HS for DM, EACH 02/03/21 Imatinib Mesylate (GLEEVEC) 400 Mg Tablet, 400 MG PO HS for chemotherapy agent , TAB 01/10/21 Tiotropium [place] (SPIRIVA) 18 Mcg Cap.w.dev, 1 CAP IH DAILY for inhaler , #30 CAP 3 Refills 01/10/21 Clonazepam (KLONOPIN) 1 Mg Tablet, 1 TAB PO HS for anxiety , #90 TAB 1 Refill 01/10/21 Metoprolol Tartrate (METOPROLOL TARTRATE) 50 Mg Tablet, 1 TAB PO HS for heart rate, heart function , #60 TAB 5 Refills 01/10/21 Metoprolol Tartrate (METOPROLOL TARTRATE) 100 Mg Tablet, 1 TAB PO DAILY08 for heart rate, heart function , #60 TAB 5 Refills 01/10/21 Apixaban (ELIQUIS) 5 Mg Tablet, 5 MG PO BID for blood thinner , TAB 01/10/21 Pregabalin (LYRICA) 150 Mg Capsule, 1 CAP PO TID for PAIN, #60 CAP 5 Refills 10/19/19 Rosuvastatin Calcium (CRESTOR) 40 Mg Tablet, 0.5 TAB PO DAILY for HLD, #30 TAB 5 Refills 10/19/19 Cyclosporine (RESTASIS) 1 Each Droperette, 1 DROP EACHEYE BID for dry eyes, #60 VIAL 3 Refills 11/26/17 Albuterol Sulfate (PROAIR HFA INHALER) 8.5 Gm Hfa.aer.ad, 1 PUFF INH PRN Q6HRS PRN for SHORTNESS OF BREATH, INHALER 0 Refills 11/25/17 Ondansetron Hcl (ONDANSETRON HCL) 4 Mg Tablet, 2 TAB PO PRN Q8HRS PRN for NAUSEA/VOMITING, #10 TAB 1 Refill 11/25/17 Fluticasone Propionate (FLUTICASONE PROPIONATE [place]AL SPRAY) 16 Gm [place].susp, 2 SPRAY NS DAILY, #1 INHALER 11 Refills 11/25/17 Sucralfate (CARAFATE) 1 Gm Tablet, 1 TAB PO BID for acid reflux , #120 TAB 3 Refills Meds not given this hospital admission. May resume home medications as approved by Physician. MAY TAKE WHEN AVAILABLE 05/05/17 Cetirizine Hcl (ZYRTEC) 10 Mg Tablet, 1 TAB PO DAILY for allergies, #30 TAB 5 Refills 07/28/14 BILL NAIK MD Feb 03, 2021 13:27
--- NOTE | 2021-02-03 13:29 | PDOC3 ---
Discharge Summary Visit Information Date of Admission: Feb 03, 2021 Date of Discharge: Feb 03, 2021 Final Diagnosis Problems Medical Problems: (1) Fever Status: Acute (2) Headache Status: Acute (3) Person under investigation for COVID-19 Status: Acute (4) UTI (urinary tract infection) Status: Acute Brief Hospital Course Allergies Allergies Coded Allergies Type Severity Reaction Last Updated Verified azithromycin Allergy Intermediate 10/12/19 Yes codeine Allergy Intermediate 05/06/17 Yes morphine Allergy Intermediate 11/01/19 Yes I S O L A T I O N *CONTACT* Allergy Unknown 11/16/19 Yes Vital Signs Vital Signs Date Time Temp Pulse Resp B/P (MAP) Pulse Ox O2 Delivery O2 Flow Rate FiO2 02/03/21 11:00 96.2 85 18 99/64 (76) 100 Nasal Cannula 2.0 96.2 Lab Results Laboratory Tests Test 02/03/21 00:13 02/03/21 00:53 02/03/21 09:27 02/03/21 10:59 White Blood Count 6.1 x10^3/uL (4.0-11.0) Red Blood Count 3.46 x10^6/uL (3.50-5.40) Hemoglobin 10.7 g/dL (12.0-15.5) Hematocrit 32.2 % (36.0-47.0) Mean Corpuscular Volume 93 fL (79-100) Mean Corpuscular Hemoglobin 31 pg (25-35) Mean Corpuscular Hemoglobin Concent 33 g/dL (31-37) Red Cell Distribution Width 13.8 % (11.5-14.5) Platelet Count 295 x10^3/uL (140-400) Neutrophils (%) (Auto) 54 % (31-73) Lymphocytes (%) (Auto) 36 % (24-48) Monocytes (%) (Auto) 8 % (0-9) Eosinophils (%) (Auto) 2 % (0-3) Basophils (%) (Auto) 0 % (0-3) Neutrophils # (Auto) 3.3 x10^3/uL (1.8-7.7) Lymphocytes # (Auto) 2.2 x10^3/uL (1.0-4.8) Monocytes # (Auto) 0.5 x10^3/uL (0.0-1.1) Eosinophils # (Auto) 0.1 x10^3/uL (0.0-0.7) Basophils # (Auto) 0.0 x10^3/uL (0.0-0.2) Sodium Level 142 mmol/L (136-145) Potassium Level 3.7 mmol/L (3.5-5.1) Chloride Level 107 mmol/L (98-107) Carbon Dioxide Level 27 mmol/L (21-32) Anion Gap 8 (6-14) Blood Urea Nitrogen 11 mg/dL (7-20) Creatinine 0.9 mg/dL (0.6-1.0) Estimated GFR (Cockcroft-Gault) 66.8 BUN/Creatinine Ratio 12 (6-20) Glucose Level 239 mg/dL (70-99) Lactic Acid Level 1.6 mmol/L (0.4-2.0) Calcium Level 8.1 mg/dL (8.5-10.1) Total Bilirubin 0.3 mg/dL (0.2-1.0) Aspartate Amino Transf (AST/SGOT) 28 U/L (15-37) Alanine Aminotransferase (ALT/SGPT) 44 U/L (14-59) Alkaline Phosphatase 100 U/L (46-116) Total Protein 6.7 g/dL (6.4-8.2) Albumin 3.3 g/dL (3.4-5.0) Albumin/Globulin Ratio 1.0 (1.0-1.7) Influenza Type A Antigen Negative (NEGATIVE) Influenza Type B Antigen Negative (NEGATIVE) Urine Collection Type Unknown Urine Color Yellow Urine Clarity Clear Urine pH 7.5 (<5.0-8.0) Urine Specific [place] >=1.030 (1.000-1.030) Urine Protein 30 mg/dL (NEG-TRACE) Urine Glucose (UA) Negative mg/dL (NEG) Urine Ketones (Stick) Negative mg/dL (NEG) Urine Blood Negative (NEG) Urine Nitrite Negative (NEG) Urine Bilirubin Negative (NEG) Urine Urobilinogen Dipstick 1.0 mg/dL (0.2 mg/dL) Urine Leukocyte Esterase Moderate (NEG) Urine RBC Occ /HPF (0-2) Urine WBC 11-20 /HPF (0-4) Urine Squamous Epithelial Cells Mod /LPF Urine Renal Epithelial Cells Occ /LPF Urine Amorphous Sediment Present /HPF Urine Bacteria Few /HPF (0-FEW) Urine Mucus Mod /LPF Glucose (Fingerstick) 180 mg/dL (70-99) 177 mg/dL (70-99) Laboratory Tests Test 02/03/21 00:13 02/03/21 00:53 02/03/21 09:27 02/03/21 10:59 White Blood Count 6.1 x10^3/uL (4.0-11.0) Red Blood Count 3.46 x10^6/uL (3.50-5.40) Hemoglobin 10.7 g/dL (12.0-15.5) Hematocrit 32.2 % (36.0-47.0) Mean Corpuscular Volume 93 fL (79-100) Mean Corpuscular Hemoglobin 31 pg (25-35) Mean Corpuscular Hemoglobin Concent 33 g/dL (31-37) Red Cell Distribution Width 13.8 % (11.5-14.5) Platelet Count 295 x10^3/uL (140-400) Neutrophils (%) (Auto) 54 % (31-73) Lymphocytes (%) (Auto) 36 % (24-48) Monocytes (%) (Auto) 8 % (0-9) Eosinophils (%) (Auto) 2 % (0-3) Basophils (%) (Auto) 0 % (0-3) Neutrophils # (Auto) 3.3 x10^3/uL (1.8-7.7) Lymphocytes # (Auto) 2.2 x10^3/uL (1.0-4.8) Monocytes # (Auto) 0.5 x10^3/uL (0.0-1.1) Eosinophils # (Auto) 0.1 x10^3/uL (0.0-0.7) Basophils # (Auto) 0.0 x10^3/uL (0.0-0.2) Sodium Level 142 mmol/L (136-145) Potassium Level 3.7 mmol/L (3.5-5.1) Chloride Level 107 mmol/L (98-107) Carbon Dioxide Level 27 mmol/L (21-32) Anion Gap 8 (6-14) Blood Urea Nitrogen 11 mg/dL (7-20) Creatinine 0.9 mg/dL (0.6-1.0) Estimated GFR (Cockcroft-Gault) 66.8 BUN/Creatinine Ratio 12 (6-20) Glucose Level 239 mg/dL (70-99) Lactic Acid Level 1.6 mmol/L (0.4-2.0) Calcium Level 8.1 mg/dL (8.5-10.1) Total Bilirubin 0.3 mg/dL (0.2-1.0) Aspartate Amino Transf (AST/SGOT) 28 U/L (15-37) Alanine Aminotransferase (ALT/SGPT) 44 U/L (14-59) Alkaline Phosphatase 100 U/L (46-116) Total Protein 6.7 g/dL (6.4-8.2) Albumin 3.3 g/dL (3.4-5.0) Albumin/Globulin Ratio 1.0 (1.0-1.7) Influenza Type A Antigen Negative (NEGATIVE) Influenza Type B Antigen Negative (NEGATIVE) Urine Collection Type Unknown Urine Color Yellow Urine Clarity Clear Urine pH 7.5 (<5.0-8.0) Urine Specific [place] >=1.030 (1.000-1.030) Urine Protein 30 mg/dL (NEG-TRACE) Urine Glucose (UA) Negative mg/dL (NEG) Urine Ketones (Stick) Negative mg/dL (NEG) Urine Blood Negative (NEG) Urine Nitrite Negative (NEG) Urine Bilirubin Negative (NEG) Urine Urobilinogen Dipstick 1.0 mg/dL (0.2 mg/dL) Urine Leukocyte Esterase Moderate (NEG) Urine RBC Occ /HPF (0-2) Urine WBC 11-20 /HPF (0-4) Urine Squamous Epithelial Cells Mod /LPF Urine Renal Epithelial Cells Occ /LPF Urine Amorphous Sediment Present /HPF Urine Bacteria Few /HPF (0-FEW) Urine Mucus Mod /LPF Glucose (Fingerstick) 180 mg/dL (70-99) 177 mg/dL (70-99) Brief Hospital Course Ms. Alejo is a 50 old female who presented with intractable headache. She was admitted received IV fluids and pain management. She did note improvement in her headache and was requesting to be discharged so she could make her afternoon radiation appointment. Discharge Information Condition at Discharge: Improved Follow Up: Weeks Disposition/Orders: D/C to Home w/ HH Scheduled Apixaban (Eliquis) 5 Mg Tablet, 5 MG PO BID for blood thinner , (Reported) Entered as Reported by: AMARILIS GONGORA RN on 01/10/21110 Last Action: Continued on 02/03/21649 by BILL NAIK MD Calcium Carbonate (Oyster Shell Calcium) 500 Mg Tablet, 500 MG PO TIDAFTMEAL for BONE HEALTH for 30 Days, #90 Prescribed by: LUANNE OWUSU MD on 01/15/21 0958 Last Action: Continued on 02/03/21649 by BILL NAIK MD Cetirizine Hcl (Zyrtec) 10 Mg Tablet, 1 TAB PO DAILY for allergies, #30 Ref 5 (Reported) Entered as Reported by: ROMAIN ORTEGA on 07/28/14 1534 Last Action: Reviewed on 02/03/21420 by GINGER CHERRY Clonazepam (Klonopin) 1 Mg Tablet, 1 TAB PO HS for anxiety , #90 Ref 1 (Reported) Entered as Reported by: AMARILIS GONGORA RN on 01/10/21111 Last Action: Converted on 02/03/21649 by BILL NAIK MD Cyclosporine (Restasis) 1 Each Droperette, 1 DROP EACHEYE BID for dry eyes, #60 Ref 3 (Reported) Entered as Reported by: MELITA ONOFRE on 11/26/17 1351 Last Action: Reviewed on 02/03/21420 by GINGER CHERRY Fluticasone Propionate (Fluticasone Propionate Nasal [place]) 16 Gm [place].susp, 2 SPRAY NS DAILY, #1 Ref 11 (Reported) Entered as Reported by: Romy Rivera on 11/25/17 2330 Last Action: Reviewed on 02/03/21420 by GINGER CHERRY Imatinib Mesylate (Gleevec) 400 Mg Tablet, 400 MG PO HS for chemotherapy agent , (Reported) Entered as Reported by: AMARILIS GONGORA RN on 01/10/21400 Last Action: Reviewed on 02/03/21420 by GINGER CHERRY Insulin Detemir (Levemir) 100 Unit/1 Ml Vial, 30 UNIT SQ HS for DM, (Reported) Entered as Reported by: GINGER CHERRY on 02/03/21420 Last Action: New Order on 02/03/21420 by GINGER CHERRY Insulin Lispro (Admelog) 100 Unit/1 Ml Vial, 8 UNITS SQ TIDWMEALS for DIABETES for 30 Days, #2 Prescribed by: LUANNE OWUSU MD on 01/15/21957 Last Action: Reviewed on 02/03/21420 by GINGER CHERRY Metoprolol Tartrate (Metoprolol Tartrate) 100 Mg Tablet, 1 TAB PO DAILY08 for heart rate, heart function , #60 Ref 5 (Reported) Entered as Reported by: AMARILIS GONGORA RN on 01/10/21110 Last Action: Reviewed on 02/03/21420 by GINGER CHERRY Metoprolol Tartrate (Metoprolol Tartrate) 50 Mg Tablet, 1 TAB PO HS for heart rate, heart function , #60 Ref 5 (Reported) Entered as Reported by: AMARILIS GONGORA RN on 01/10/21110 Last Action: Continued on 02/03/21649 by BILL NAIK MD Pantoprazole Sodium (Pantoprazole Sodium ) 40 Mg Tablet.dr, 40 MG PO DAILYAC for GERD for 30 Days, #30 Prescribed by: LUANNE OWUSU MD on 01/15/21957 Last Action: Continued on 02/03/21649 by BILL NAIK MD Potassium Chloride (Klor-Con M20) 20 Meq Tab.er.prt, 20 MEQ PO DAILYWBKFT for SUPPLEMENT for 14 Days, #14 Prescribed by: LUANNE OWUSU MD on 01/15/21957 Last Action: Reviewed on 02/03/21420 by GINGER CHERRY Pregabalin (Lyrica) 150 Mg Capsule, 1 CAP PO TID for PAIN, #60 Ref 5 (Reported) Entered as Reported by: HOLLI PONCE RN on 10/19/19111 Last Action: Reviewed on 02/03/21420 by GINGER CHERRY Rosuvastatin Calcium (Crestor) 40 Mg Tablet, 0.5 TAB PO DAILY for HLD, #30 Ref 5 (Reported) Entered as Reported by: HOLLI PONCE RN on 10/19/1941 Last Action: Converted on 02/03/21649 by BILL NAIK MD Sucralfate (Carafate) 1 Gm Tablet, 1 TAB PO BID for acid reflux , #120 Ref 3 (Reported) Meds not given this hospital admission. May resume home medications as approved by Physician. MAY TAKE WHEN AVAILABLE Entered as Reported by: TARI GONSALES on 05/05/17 005 Last Action: Reviewed on 02/03/21420 by GIGNER CHERRY Tiotropium [place] (Spiriva) 18 Mcg Cap.w.dev, 1 CAP IH DAILY for inhaler , #30 Ref 3 (Reported) Entered as Reported by: AMARILIS GONGORA RN on 01/10/21400 Last Action: Converted on 02/03/21649 by BILL NAIK MD Topiramate (Topamax) 50 Mg Tablet, 75 MG PO BID for VYAS, (Reported) Entered as Reported by: GINGER CHERRY on 02/03/21420 Last Action: Converted on 02/03/21649 by BILL NAIK MD Scheduled PRN Albuterol Sulfate (Proair Hfa Inhaler) 8.5 Gm Hfa.aer.ad, 1 PUFF INH PRN Q6HRS PRN for SHORTNESS OF BREATH, Ref 0 (Reported) Entered as Reported by: Romy Rivera on 11/25/172329 Last Action: Reviewed on 02/03/21420 by GINGER CHERRY Dicyclomine Hcl (Dicyclomine Hcl) 10 Mg Capsule, 10 MG PO PRN QID PRN for ABDOMINAL CRAMPS for 14 Days, #60 Prescribed by: LUANNE OWUSU MD on 01/15/21957 Last Action: Reviewed on 02/03/21420 by GINGER CHERRY Ondansetron Hcl (Ondansetron Hcl) 4 Mg Tablet, 2 TAB PO PRN Q8HRS PRN for NAUSEA/VOMITING, #10 Ref 1 (Reported) Entered as Reported by: Romy Rivera on 11/25/172329 Last Action: Reviewed on 02/03/21420 by GINEGR CHERRY Oxycodone/Apap 7.5-325 (Percocet 7.5-325 Mg Tablet ) 1 Each Tablet, 1 TAB PO PRN Q8HRS PRN for PAIN SEVERE for 14 Days, #60 Prescribed by: LUANNE OWUSU MD on 01/15/21957 Last Action: Continued on 02/03/21649 by BILL NAIK MD Polyethylene Glycol 3350 (Polyethylene Glycol 3350) 17 Gm Powd.pack, 17 GM PO PRN DAILY PRN for CONSTIPATION 2ND CHOICE for 30 Days, #30 Prescribed by: LUANNE OWUSU MD on 01/15/21 0958 Last Action: Continued on 02/03/21 0650 by BILL NAIK MD Sumatriptan Succinate (Imitrex) 100 Mg Tablet, 100 MG PO PRN Q2HR PRN for MIGRAINE HEADACHE, #9 Ref 0 Prescribed by: BILL NAIK MD on 01/20/21 1108 Last Action: Continued on 02/03/21 0650 by BILL NAIK MD Discontinued Medications Tramadol Hcl (Tramadol Hcl) 50 Mg Tablet, 50 MG PO PRN Q8HRS PRN for MILD PAIN 1-3, #30 Prescribed by: RAFAEL CAT on 11/20/19 0858 Justicifation of Admission Dx: Justifications for Admission: Justification of Admission Dx: Yes BILL NAIK MD Feb 03, 2021 13:29
[2021-02-03 14:19] LABS: BASE EXCESS COOX -3 mmol/L (-3-3); HCO3 COOX 22 mmol/L (21-28); METHEMOGLOBIN 0.5 % (0.0-1.9); OXYHEMOGLOBIN 94.9 %; PCO2 COOX 39 mmHg (35-46); PO2 COOX 83 mmHg (75-108); SAT O2 COOX 96 % (92-99)
--- NOTE | 2021-02-03 18:20 | NUR ---
Patient discharged home at approximately 1500. Discharge education given and patient verbalized understanding.
[2021-02-03] MEDS ORDERED: METOPROLOL TART IMMED RELEASE 50 MG TABLET. PO SCH (21:00)
[2021-02-03] MEDS ORDERED: INSULIN GLARGINE SYRINGE. SQ SCH (21:00)
[2021-02-03] MEDS ORDERED: ATORVASTATIN CALCIUM 40 MG TABLET. PO SCH (21:00)
[2021-02-03] MEDS ORDERED: clonazePAM 0.5 MG TABLET PO SCH (21:00)
--- NOTE | 2021-02-04 13:41 | NUR ---
IP: Informed pt of negative COVID test. Pt verbalized understanding.
== END 2021-02-03 15:00 | disposition home health service (06) ==
LOC: ER 23:50 → 6 SOUTH 02-03 01:27
PROVIDERS: ADMIT Family Medicine; ATTEND Family Medicine
DX: R51.9 Headache, unspecified (principal); Z20.822 Contact with and (suspected) exposure to COVID-19; N39.0 Urinary tract infection, site not specified; R50.9 Fever, unspecified; I10 Essential (primary) hypertension; E78.5 Hyperlipidemia, unspecified; J45.909 Unspecified asthma, uncomplicated; K27.9 Peptic ulcer, site unspecified, unspecified as acute or chronic, without hemorrhage or perforation; F41.9 Anxiety disorder, unspecified; F32.9 Major depressive disorder, single episode, unspecified; M54.5 Low back pain; E11.65 Type 2 diabetes mellitus with hyperglycemia; E78.00 Pure hypercholesterolemia, unspecified; I25.10 Atherosclerotic heart disease of native coronary artery without angina pectoris; D32.9 Benign neoplasm of meninges, unspecified; G93.89 Other specified disorders of brain; G62.9 Polyneuropathy, unspecified; D18.00 Hemangioma unspecified site; Z86.711 Personal history of pulmonary embolism; Z85.6 Personal history of leukemia; Z85.841 Personal history of malignant neoplasm of brain; Z86.73 Personal history of transient ischemic attack (TIA), and cerebral infarction without residual deficits; Z87.11 Personal history of peptic ulcer disease; Z87.442 Personal history of urinary calculi; Z87.891 Personal history of nicotine dependence; Z90.49 Acquired absence of other specified parts of digestive tract; Z90.710 Acquired absence of both cervix and uterus; Z98.891 History of uterine scar from previous surgery; Z79.4 Long term (current) use of insulin; Z79.899 Other long term (current) drug therapy
CPT/HCPCS: 36415; 36600; 70450; 71045; 80053; 81001; 82805; 82962; 83605; 85025; 87086; 87804; 96361; 96372; 96374; 96375; 96376; 99285; G0378; J0696; J1170; J1815; J2405; J7030; U0003; G0379

== ENCOUNTER 2021-03-18 05:02 | Inpatient (IN) | payer OTHER ==
[~2021-03-18] VITALS: Ht 165.1 cm; Wt 126.3 kg
[~2021-03-18 05:02] MED LIST changes: +TOPI50TA38 PO
[2021-03-18] MEDS ORDERED: ONDANSETRON PF 4 MG/2 ML VIAL. IVP PRN (06:15)
--- NOTE | 2021-03-18 06:28 | NUR ---
IP: Pt has a hx of ESBL in urine on 11/10/19. Pt to be in contact precautions until there is a negative Urine culture.
[2021-03-18] MEDS: IV NORMAL SALINE 1000ML BAG 1,000 ML IV SCH ×2 (06:34→16:18)
[2021-03-18 07:00] VITALS: BP 142/80
[2021-03-18] MEDS: fentaNYL PF VIAL 100 MCG/2 ML VIAL IVP PRN ×5 (08:56→23:31)
[2021-03-18 11:00] VITALS: BP 140/85
--- NOTE | 2021-03-18 11:27 | NUR ---
SW following. Discussed with RN, pt from home with family, room air, NPO. Pt had a stroke about a year ago, uses a celia lift. RN advised no SW needs at this time. SW will continue to follow.
[2021-03-18] MEDS ORDERED: DEXTROSE 50% 25 GM / 50ML DISP.SYRIN. IV PRN (12:15)
[2021-03-18] MEDS: POTASSIUM CL 20MEQ D5-0.2%NACL 1,000 ML IV SCH ×2 (12:52→23:28)
[2021-03-18] MEDS: DEXAMETHASONE SOD PHOS 4 MG/ML VIAL IVP SCH (12:54)
[2021-03-18] MEDS: INSULIN LISPRO 300 UNITS/3 ML VIAL. SQ SCH ×2 (13:06→18:29)
--- NOTE | 2021-03-18 14:00 | HP ---
ADMIT DATE: 03/18/2021 HISTORY OF PRESENT ILLNESS: The patient is a 51-year-old female patient who presented to the Emergency Room at [facility] with a complaint of abdominal pain. She had also some nausea and vomiting. Her last bowel movement was yesterday. She presented with sharp, cramping sensation, moderate to severe intensity, comes and goes in waves. Denied any fever or chills. She APPARENTLY IS ALLERGIC TO MORPHINE, but has tolerated Dilaudid and fentanyl in the past. She was extensively investigated in the Emergency Room and had had lab work, which showed a white cell count of 11,200. Her chemistry was unremarkable; however, CT scan of the abdomen and pelvis showed that the patient has dilated, fluid filled loops of proximal small bowel with relative distal small bowel collapse and a small amount of fluid in the mesentery. This could be related to early small-bowel obstruction or partial obstruction, infectious inflammatory enteritis is another consideration. She has also fatty infiltration of the liver and therefore, the patient was transferred to [facility], kept n.p.o., started on IV fluid, IV pain medication as well as antiemetic. PAST MEDICAL HISTORY: Significant for type 2 diabetes mellitus, hypertension, hyperlipidemia, morbid obesity and obstructive sleep apnea, history of bronchial asthma/COPD. She also has a history of brain tumor that was resected on 11/12/2017 at [facility]. She has been followed by the oncology team and apparently she has recurrence of her tumor treated with radiation therapy on 03/18/2021. PAST SURGICAL HISTORY: Significant for multiple ovarian cysts removal, 3 C-sections. She has also abdominal hysterectomy, bilateral salpingo-oophorectomy, cholecystectomy, appendectomy and obviously the back surgery and brain tumor resection done at [facility]. ALLERGIES: SHE IS ALLERGIC TO AZITHROMYCIN, CODEINE AND MORPHINE. MEDICATIONS: She is currently on the following medication: She is on albuterol sulfate by inhaler 2 puffs every 4 hours, clonazepam 1 mg every day, dexamethasone 4 mg one tablet twice a day, Eliquis 5 mg twice a day, fluticasone propionate 1 spray to each nostril twice a day, Levemir - she takes 34 units daily, Lyrica 150 mg 3 times a day, metoprolol succinate 50 mg - she takes three tablets every day. She is also on Novolog insulin as per insulin sliding scale before meals, ondansetron 4 mg disintegrating tablet - she takes 8 mg every 12 hours, oxycodone 10 mg twice a day, Crestor 20 mg at bedtime, sucralfate 1 gram 3 times a day, tramadol 50 mg every 6 hours, Zyrtec 10 mg every day by oral route. FAMILY HISTORY: She has two brothers and three sisters, one brother is older and the rest are younger, all have hypertension and diabetes. Her father at the age of 60 due to massive myocardial infarction. Mother is still alive in her 70s and has diabetes and ovarian, liver and thyroid cancer. SOCIAL HISTORY: She is , has one daughter and two sons. She quit smoking about 2 years ago. She does not drink alcohol or use recreational drugs. 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 PHYSICAL EXAMINATION: GENERAL: On arrival to the Emergency Room, she looked well and was clear in no apparent distress. She was pale, but no jaundice, cyanosis or thyromegaly. No jugular venous distention. No limb edema. VITAL SIGNS: Her heart rate was 92, blood pressure was 142/96, temperature was 98.4, respiratory rate was 18 and oxygen saturation was 97%. HEAD, EYES, EARS, NOSE, AND THROAT: Normocephalic, atraumatic. NECK: Supple. HEART: Normal first and second heart sounds, no gallop, rub or murmur. CHEST: Clear to auscultation. No crepitation or rhonchi. ABDOMEN: Distended with tenderness mostly in the left lower quadrant. There is no guarding or rigidity. No organomegaly. All hernial orifice intact. Bowel sounds normal. NEUROLOGIC: She is awake, alert, responding appropriately; however, she does have right-sided hemiplegia. She has been on a large dose of dexamethasone. She has clearly cushingoid appearance. LABORATORY AND DIAGNOSTIC DATA: Her lab work at [facility] Emergency Room showed a serum sodium 144, potassium 3.7, chloride 106, bicarbonate 31, anion gap of 7, BUN 29, creatinine 0.8, estimated GFR was 76 mL per minute, her glucose 137, lactic acid is 1.5, calcium was 8.9, total bilirubin, AST, ALT, alkaline phosphatase were normal, total protein 6.6, albumin was 3.3, lipase was 93. Her white cell count was 11,200, hemoglobin 14, hematocrit 42, MCV 95 and platelet count 238,000 with normal manual differential. The CT scan of the abdomen and pelvis showed that the patient has limited images of the lung bases, showed linear scar or atelectasis in the right lower lobe. Heart size upper limit of normal, but no pleural effusion, no pericardial effusion. The liver is diffusely low density compatible with fatty infiltration. No apparent mass. Trace amount of perihepatic ascites. The portal vein is patent. No biliary ductal dilatation. Gallbladder is surgically absent. The spleen is normal size. Pancreas, adrenal glands and kidneys are unremarkable with no hydronephrosis. There is well circumscribed low density focus in the lower pole of the left kidney 4 cm and the Hounsfield value of 7 consistent with a cyst. There are some mildly dilated fluid filled loops of proximal small bowel with small amount of free fluid in the mesentery. No wall thickening. No definite transition point. There are more distal loops of small bowel that are relatively collapsed. Appendix not clearly identified. Colon was unremarkable. No adenopathy or ascites. Abdominal aorta is normal in course and caliber. The pelvis shows nondistended urinary bladder. The uterus is surgically absent. No free fluid or pelvic lymphadenopathy. Bone windows show no acute finding except multilevel spondylosis. IMPRESSION: The patient has dilated fluid filled loops of proximal small bowel with relative distal small bowel collapse and a small amount of fluid in the mesentery. This could be related to early small-bowel obstruction versus partial obstruction, infectious inflammatory enteritis and other consideration, correlate clinically. The patient was transferred to [facility], admitted to [facility] for possible complete versus partial small-bowel obstruction. She was kept n.p.o. and we started her on IV fluid, IV pain medication as well as antiemetic. We will obviously hold her Eliquis. We will continue with dexamethasone 4 mg IV twice a day as before and consult the surgical team as well as the oncologist to follow. GABRIEL GARCIA: Amairani TID: [id number]
[2021-03-18 15:00] VITALS: BP 143/82
[2021-03-18 19:00] VITALS: BP 155/92
--- NOTE | 2021-03-18 19:09 | PDOC2 ---
CONSULT Date of Consult Date of Consult DATE: 03/18/21 TIME: 18:47 Reason for Consult Reason for Consult: SBO Referring Physician Referring Physician: Dr. Ang Identification/Chief Complaint Chief Complaint abd pain History of Present Illness Reason for Visit: 51 yo F with c/o abd pain. Imaging at [facility] suggests SBO. Pt seen in hospital room and c/o abd pain. Denies significant N/v. No flatus or stools currently. Past Medical History Cardiovascular: HTN, Hyperlipidemia, Other Pulmonary: Asthma, Pulmonary embolus, Other CENTRAL NERVOUS SYSTEM: Periperal neuropathy, Other GI: Peptic Ulcer disease, Other Heme/Onc: Cancer Hepatobiliary: No pertinent hx Psych: Anxiety, Depression, Other Musculoskeletal: low back pain Rheumatologic: No pertinent hx Infectious disease: No pertinent hx Renal/: Other Endocrine: Diabetes Past Surgical History Past Surgical History: Appendectomy, Cholecystectomy, , Hysterectomy, Other Family History Family History: Cancer, Coronary Artery Disease, Hypertension Social History ALCOHOL: occassional Drugs: None Lives: with Family Current Medications Current Medications Current Medications Sodium Chloride 1,000 ml @ 100 mls/hr Q10H IV Last administered on 03/18/21at 06:34; Start 03/18/21 at 06:30 Fentanyl Citrate (Fentanyl 2ml Vial) 50 mcg PRN Q3HRS PRN IVP SEVERE PAIN 7-10 Last administered on 03/18/21at 16:18; Start 03/18/21 at 06:15 Ondansetron HCl (Zofran) 4 mg PRN Q4HRS PRN IVP NAUSEA/VOMITING 1ST CHOICE; Start 03/18/21 at 06:15 Dexamethasone Sodium Phosphate (Decadron) 4 mg Q12H IVP Last administered on 03/18/21at 12:54; Start 03/18/21 at 12:15 Potassium Chloride/Dextrose/ Sod Cl 1,000 ml @ 100 mls/hr Q10H IV Last administered on 03/18/21at 12:52; Start 03/18/21 at 12:15 Insulin Human Lispro (HumaLOG) 0-9 UNITS Q6HRS SQ Last administered on 03/18/21at 18:29; Start 03/18/21 at 12:15 Dextrose (Dextrose 50%-Water Syringe) 12.5 gm PRN Q15MIN PRN IV SEE COMMENTS; Start 03/18/21 at 12:15 Active Scripts Active Imitrex (Sumatriptan Succinate) 100 Mg Tablet 100 Mg PO PRN Q2HR PRN Admelog (Insulin Lispro) 100 Unit/1 Ml Vial 8 Units SQ TIDWMEALS 30 Days Pantoprazole Sodium (Pantoprazole Sodium) 40 Mg Tablet.dr 40 Mg PO DAILYAC 30 Days Polyethylene Glycol 3350 17 Gm Powd.pack 17 Gm PO PRN DAILY PRN 30 Days Klor-Con M20 (Potassium Chloride) 20 Meq Tab.er.prt 20 Meq PO DAILYWBKFT 14 Days Oyster Shell Calcium (Calcium Carbonate) 500 Mg Tablet 500 Mg PO TIDAFTMEAL 30 Days Percocet 7.5-325 Mg Tablet (Oxycodone/Acetaminophen) 1 Each Tablet 1 Tab PO PRN Q8HRS PRN 14 Days Dicyclomine Hcl 10 Mg Capsule 10 Mg PO PRN QID PRN 14 Days Reported Topamax (Topiramate) 50 Mg Tablet 75 Mg PO BID Levemir (Insulin Detemir) 100 Unit/1 Ml Vial 30 Unit SQ HS Gleevec (Imatinib Mesylate) 400 Mg Tablet 400 Mg PO HS Spiriva (Tiotropium [place]) 18 Mcg Cap.w.dev 1 Cap IH DAILY Klonopin (Clonazepam) 1 Mg Tablet 1 Tab PO HS Metoprolol Tartrate 50 Mg Tablet 1 Tab PO HS Metoprolol Tartrate 100 Mg Tablet 1 Tab PO DAILY08 Eliquis (Apixaban) 5 Mg Tablet 5 Mg PO BID Lyrica (Pregabalin) 150 Mg Capsule 1 Cap PO TID Crestor (Rosuvastatin Calcium) 40 Mg Tablet 0.5 Tab PO DAILY Restasis (Cyclosporine) 1 Each Droperette 1 Drop EACHEYE BID Proair Hfa Inhaler (Albuterol Sulfate) 8.5 Gm Hfa.aer.ad 1 Puff INH PRN Q6HRS PRN Ondansetron Hcl 4 Mg Tablet 2 Tab PO PRN Q8HRS PRN Fluticasone Propionate Nasal [place] (Fluticasone Propionate) 16 Gm [place].susp 2 [place] NS DAILY Carafate (Sucralfate) 1 Gm Tablet 1 Tab PO BID Meds not given this hospital admission. May resume home medications as approved by Physician. MAY TAKE WHEN AVAILABLE Zyrtec (Cetirizine Hcl) 10 Mg Tablet 1 Tab PO DAILY Allergies Allergies: Coded Allergies: azithromycin (Verified Allergy, Intermediate, 10/12/19) codeine (Verified Allergy, Intermediate, 05/06/17) morphine (Verified Allergy, Intermediate, 11/01/19) Tolerates hydromorphone and oxycodone I S O L A T I O N *CONTACT* (Verified Allergy, Unknown, 11/16/19) ESBL ROS Gastrointestinal: Yes Abdominal Pain Physical Exam General: Alert, Oriented X3, Cooperative, mild distress, Other (obese) HEENT: EOMI Lungs: Normal air movement Abdomen: Soft, Other (mild TTP, obese) Extremities: No clubbing, No cyanosis Skin: No rashes, No breakdown Neuro: Normal speech, Sensation intact Psych/Mental Status: Mental status NL, Mood NL Vitals VITALS Vital Signs Date Time Temp Pulse Resp B/P (MAP) Pulse Ox O2 Delivery O2 Flow Rate FiO2 03/18/21 16:48 20 98 Room Air 03/18/21 15:00 98.6 80 143/82 (102) 98.6 Labs Labs Laboratory Tests Test 03/18/21 06:18 03/18/21 08:10 03/18/21 12:09 03/18/21 17:03 Glucose (Fingerstick) 277 mg/dL (70-99) 236 mg/dL (70-99) 218 mg/dL (70-99) 228 mg/dL (70-99) Laboratory Tests Test 03/18/21 06:18 03/18/21 08:10 03/18/21 12:09 03/18/21 17:03 Glucose (Fingerstick) 277 mg/dL (70-99) 236 mg/dL (70-99) 218 mg/dL (70-99) 228 mg/dL (70-99) Images Images CT at [facility] SBO Assessment/Plan Assessment/Plan SBO agree with bowel rest will recheck KUB in AM Thanks for consult! MAXI DUKE MD Mar 18, 2021 19:09
[2021-03-18 23:00] VITALS: BP 145/87
[2021-03-19] MEDS: DEXAMETHASONE SOD PHOS 4 MG/ML VIAL IVP SCH ×2 (00:58→12:24)
[2021-03-19] MEDS ORDERED: DEXA4TAB PO (01:51)
[2021-03-19] MEDS ORDERED: METO50TA4 PO (01:51)
[2021-03-19] MEDS ORDERED: TRAM50TA PO (01:51)
[2021-03-19] MEDS ORDERED: OXYC1TAB22 PO (01:51)
[2021-03-19] MEDS ORDERED: PROAIR RESPICL90 MCG IH (01:51)
[2021-03-19] MEDS: HYDROmorphone 2 MG/ML VIAL IVP PRN ×5 (02:59→20:41)
[2021-03-19 03:00] VITALS: BP 149/94
[2021-03-19] MEDS: INSULIN LISPRO 300 UNITS/3 ML VIAL. SQ SCH ×4 (06:36→18:23)
[2021-03-19 07:15] VITALS: BP 145/92
[2021-03-19 07:44] LABS: HEMATOCRIT 36.9 % (36.0-47.0); HEMOGLOBIN 12.3 g/dL (12.0-15.5); RED BLOOD COUNT 3.85 x10^6/uL (3.50-5.40); RED CELL DISTRIBUTION WIDTH 14.9 % (11.5-14.5)
[2021-03-19 08:00] LABS: ALBUMIN 2.9 g/dL (3.4-5.0); CALCIUM 8.2 mg/dL (8.5-10.1); CREATININE 0.6 mg/dL (0.6-1.0); GFR 106.3; POTASSIUM 4.2 mmol/L (3.5-5.1); TOTAL BILIRUBIN 0.7 mg/dL (0.2-1.0); TOTAL PROTEIN 5.7 g/dL (6.4-8.2)
--- NOTE | 2021-03-19 08:59 | RAD ---
EXAM: Abdomen, 2 views. HISTORY: Small bowel obstruction. COMPARISON: 03/18/2021. FINDINGS: 2 views of the abdomen are obtained. There is gas and stool within the colon and rectal vau lt. There is a relative paucity of bowel gas within the midabdomen. The possibility of distended flui d-filled loops of bowel is not excluded. There is no free air. The previously demonstrated gastric di stention has resolved. There are cholecystomy clips. IMPRESSION: Gas and stool within the colon and rectal vault. There is a relative paucity of bowel ga s within the midabdomen. There is no convincing transition point to suggest obstruction. Electronically signed by: Mone Pandey MD (03/19/2021 8:57 AM) [id number]
[2021-03-19] MEDS: POTASSIUM CL 20MEQ D5-0.2%NACL 1,000 ML IV SCH ×2 (09:25→18:41)
[2021-03-19 11:06] VITALS: BP 150/85
--- NOTE | 2021-03-19 12:03 | PDOC ---
MONI CHOI [employer] TECHNICIAN 03/19/21 1203: SURGICAL PROGRESS NOTE DATE: 03/19/21 TIME: 12:02 Subjective some pain no emesis no flatus Vital Signs Vital Signs Date Time Temp Pulse Resp B/P (MAP) Pulse Ox O2 Delivery O2 Flow Rate FiO2 03/19/21 11:40 20 96 Room Air 03/19/21 11:06 97.7 73 150/85 (106) 97.7 I&O Intake and Output 03/19/21 07:00 Intake Total 1000 ml Output Total 700 ml Balance 300 ml Intake Oral 0 ml IV Total 1000 ml Output Urine Total 700 ml # Voids 1 General: Alert, Oriented X3, Cooperative Abdomen: Soft, No tenderness Labs Laboratory Tests Test 03/18/21 06:18 03/18/21 08:10 03/18/21 12:09 03/18/21 17:03 Glucose (Fingerstick) 277 mg/dL (70-99) 236 mg/dL (70-99) 218 mg/dL (70-99) 228 mg/dL (70-99) Test 03/18/21 21:09 03/19/21 06:27 03/19/21 06:50 03/19/21 07:22 Glucose (Fingerstick) 239 mg/dL (70-99) 244 mg/dL (70-99) 236 mg/dL (70-99) White Blood Count 6.0 x10^3/uL (4.0-11.0) Red Blood Count 3.85 x10^6/uL (3.50-5.40) Hemoglobin 12.3 g/dL (12.0-15.5) Hematocrit 36.9 % (36.0-47.0) Mean Corpuscular Volume 96 fL (79-100) Mean Corpuscular Hemoglobin 32 pg (25-35) Mean Corpuscular Hemoglobin Concent 33 g/dL (31-37) Red Cell Distribution Width 14.9 % (11.5-14.5) Platelet Count 168 x10^3/uL (140-400) Sodium Level 140 mmol/L (136-145) Potassium Level 4.2 mmol/L (3.5-5.1) Chloride Level 106 mmol/L (98-107) Carbon Dioxide Level 29 mmol/L (21-32) Anion Gap 5 (6-14) Blood Urea Nitrogen 19 mg/dL (7-20) Creatinine 0.6 mg/dL (0.6-1.0) Estimated GFR (Cockcroft-Gault) 106.3 BUN/Creatinine Ratio 32 (6-20) Glucose Level 241 mg/dL (70-99) Calcium Level 8.2 mg/dL (8.5-10.1) Total Bilirubin 0.7 mg/dL (0.2-1.0) Aspartate Amino Transf (AST/SGOT) 20 U/L (15-37) Alanine Aminotransferase (ALT/SGPT) 51 U/L (14-59) Alkaline Phosphatase 56 U/L (46-116) Total Protein 5.7 g/dL (6.4-8.2) Albumin 2.9 g/dL (3.4-5.0) Albumin/Globulin Ratio 1.0 (1.0-1.7) Test 03/19/21 11:26 Glucose (Fingerstick) 200 mg/dL (70-99) Laboratory Tests Test 03/18/21 12:09 03/18/21 17:03 03/18/21 21:09 03/19/21 06:27 Glucose (Fingerstick) 218 mg/dL (70-99) 228 mg/dL (70-99) 239 mg/dL (70-99) 244 mg/dL (70-99) Test 03/19/21 06:50 03/19/21 07:22 03/19/21 11:26 White Blood Count 6.0 x10^3/uL (4.0-11.0) Red Blood Count 3.85 x10^6/uL (3.50-5.40) Hemoglobin 12.3 g/dL (12.0-15.5) Hematocrit 36.9 % (36.0-47.0) Mean Corpuscular Volume 96 fL (79-100) Mean Corpuscular Hemoglobin 32 pg (25-35) Mean Corpuscular Hemoglobin Concent 33 g/dL (31-37) Red Cell Distribution Width 14.9 % (11.5-14.5) Platelet Count 168 x10^3/uL (140-400) Sodium Level 140 mmol/L (136-145) Potassium Level 4.2 mmol/L (3.5-5.1) Chloride Level 106 mmol/L (98-107) Carbon Dioxide Level 29 mmol/L (21-32) Anion Gap 5 (6-14) Blood Urea Nitrogen 19 mg/dL (7-20) Creatinine 0.6 mg/dL (0.6-1.0) Estimated GFR (Cockcroft-Gault) 106.3 BUN/Creatinine Ratio 32 (6-20) Glucose Level 241 mg/dL (70-99) Calcium Level 8.2 mg/dL (8.5-10.1) Total Bilirubin 0.7 mg/dL (0.2-1.0) Aspartate Amino Transf (AST/SGOT) 20 U/L (15-37) Alanine Aminotransferase (ALT/SGPT) 51 U/L (14-59) Alkaline Phosphatase 56 U/L (46-116) Total Protein 5.7 g/dL (6.4-8.2) Albumin 2.9 g/dL (3.4-5.0) Albumin/Globulin Ratio 1.0 (1.0-1.7) Glucose (Fingerstick) 236 mg/dL (70-99) 200 mg/dL (70-99) Assessment/Plan xr with air and stool in colon trial clears Justicifation of Admission Dx: Justifications for Admission: Justification of Admission Dx: Yes LUANNE GEIGER MD 03/19/21 1216: SURGICAL PROGRESS NOTE Assessment/Plan Agree with Анна assessment and plan MONI CHOI [employer] TECHNICIAN Mar 19, 2021 12:03 LUANNE GEIGER MD Mar 19, 2021 12:16
[2021-03-19 15:08] VITALS: BP 168/94
[2021-03-19 19:00] VITALS: BP 135/88
[2021-03-19] MEDS: INSULIN GLARGINE SYRINGE. SQ SCH (20:50)
[2021-03-19 23:00] VITALS: BP 138/82
[2021-03-20] MEDS: DEXAMETHASONE SOD PHOS 4 MG/ML VIAL IVP SCH ×2 (00:51→13:17)
[2021-03-20] MEDS: HYDROmorphone 2 MG/ML VIAL IVP PRN ×5 (00:52→19:07)
--- NOTE | 2021-03-20 01:10 | PN ---
DATE: 03/19/2021 SUBJECTIVE: The patient is resting, slightly propped up in bed, in no apparent respiratory distress. She is awake, alert, continued to complain of nausea, but no vomiting. Continued to have abdominal pain, but has not had any bowel movement or passed any gas. Her x-ray showed that there is gas and stool within the colon and rectal vault. There is a relative paucity of bowel gas within the mid abdomen, possibility of distended fluid-filled loops, bowel is not excluded. There is no free air. The previously demonstrated gastric distention has resolved. There are cholecystectomy clips. PHYSICAL EXAMINATION: GENERAL: When I examined her this morning, she looked well and was clearly in no apparent respiratory distress. She was cushingoid, but there is no pallor, jaundice, or cyanosis. No thyromegaly or jugular venous distention. No lower limb edema. VITAL SIGNS: Her heart rate was 69, blood pressure was 145/92, temperature 97.8, respiratory rate was 18, and oxygen saturation was 96% on room air. HEENT: Normocephalic, atraumatic. NECK: Supple. HEART: Normal first and second heart sounds. No gallop or murmur. CHEST: Clear to auscultation and percussion. No rhonchi. ABDOMEN: Distended, soft. Tenderness mostly in the left lower quadrant. There is no guarding or rigidity. No organomegaly. All hernial orifices intact. Bowel sounds normal. NEUROLOGIC: She is awake, alert, responding appropriately. All her cranial nerves intact. She has right-sided hemiplegia. Her intake and output were incompletely recorded. LABORATORY DATA: This morning showed a white cell count of 6000, hemoglobin 12, hematocrit 36, MCV 96, and platelet count of 168,000. Her serum sodium was 140, potassium 4.2, chloride 106, bicarbonate 29, anion gap of 5, BUN 19, and creatinine 0.6. Estimated GFR was 106 mL per minute. Her glucose was 141 and calcium was 8.2. Total bilirubin, AST, ALT, and alkaline phosphatase were normal. Total protein 5.7 and albumin was 2.9. ASSESSMENT: Small-bowel obstruction. The patient continued to have nausea, has not had any bowel movement or passed any gas, although x-ray showed that there is gas and stool within the colon in the rectal vault. There is a relative paucity of bowel gas within the mid abdomen. PLAN: My plan is to continue with n.p.o. status. Continue with IV fluid, continue to monitor the blood sugar and adjust insulin as needed. Continue with pain management and antiemetic. MANUELA/ANASTASIA/BYRON DR: Amairani TID: [id number]
[2021-03-20 03:00] VITALS: BP 146/90
[2021-03-20] MEDS: POTASSIUM CL 20MEQ D5-0.2%NACL 1,000 ML IV SCH ×2 (05:00→15:04)
[2021-03-20] MEDS: INSULIN LISPRO 300 UNITS/3 ML VIAL. SQ SCH ×4 (06:30→17:55)
[2021-03-20 07:00] VITALS: BP 140/90
[2021-03-20 07:50] LABS: HEMATOCRIT 38.1 % (36.0-47.0); HEMOGLOBIN 12.8 g/dL (12.0-15.5); RED BLOOD COUNT 4.01 x10^6/uL (3.50-5.40); RED CELL DISTRIBUTION WIDTH 15.1 % (11.5-14.5); WHITE BLOOD COUNT 6.5 x10^3/uL (4.0-11.0)
[2021-03-20 07:56] LABS: ALBUMIN 3.2 g/dL (3.4-5.0); ALBUMIN/GLOBULIN RATIO 1.1 (1.0-1.7); CALCIUM 8.5 mg/dL (8.5-10.1); CREATININE 0.5 mg/dL (0.6-1.0); GFR 131.1; POTASSIUM 3.9 mmol/L (3.5-5.1); TOTAL BILIRUBIN 0.8 mg/dL (0.2-1.0); TOTAL PROTEIN 6.2 g/dL (6.4-8.2)
--- NOTE | 2021-03-20 10:25 | NUR ---
SW following. Discussed with RN, pt from home with family, room air, clear liquid diet. Surgery following. RN advised no SW needs at this time. SW will continue to follow.
[2021-03-20 10:44] VITALS: BP 143/87
--- NOTE | 2021-03-20 14:10 | PDOC ---
SURGICAL PROGRESS NOTE DATE: 03/20/21 TIME: 14:06 Subjective no nausea, taking clears + flatus, no stool Vital Signs Vital Signs Date Time Temp Pulse Resp B/P (MAP) Pulse Ox O2 Delivery O2 Flow Rate FiO2 03/20/21 10:44 98.1 88 16 143/87 (105) 97 98.1 03/20/21 10:24 Room Air I&O Intake and Output 03/20/21 07:00 Intake Total 5120 ml Output Total 1100 ml Balance 4020 ml Intake Oral 2120 ml IV Total 3000 ml Output Urine Total 1100 ml # Voids 18 General: Alert, Oriented X3, Cooperative Abdomen: Soft, No tenderness Labs Laboratory Tests Test 03/18/21 17:03 03/18/21 21:09 03/19/21 06:27 03/19/21 06:50 Glucose (Fingerstick) 228 mg/dL (70-99) 239 mg/dL (70-99) 244 mg/dL (70-99) White Blood Count 6.0 x10^3/uL (4.0-11.0) Red Blood Count 3.85 x10^6/uL (3.50-5.40) Hemoglobin 12.3 g/dL (12.0-15.5) Hematocrit 36.9 % (36.0-47.0) Mean Corpuscular Volume 96 fL (79-100) Mean Corpuscular Hemoglobin 32 pg (25-35) Mean Corpuscular Hemoglobin Concent 33 g/dL (31-37) Red Cell Distribution Width 14.9 % (11.5-14.5) Platelet Count 168 x10^3/uL (140-400) Sodium Level 140 mmol/L (136-145) Potassium Level 4.2 mmol/L (3.5-5.1) Chloride Level 106 mmol/L (98-107) Carbon Dioxide Level 29 mmol/L (21-32) Anion Gap 5 (6-14) Blood Urea Nitrogen 19 mg/dL (7-20) Creatinine 0.6 mg/dL (0.6-1.0) Estimated GFR (Cockcroft-Gault) 106.3 BUN/Creatinine Ratio 32 (6-20) Glucose Level 241 mg/dL (70-99) Calcium Level 8.2 mg/dL (8.5-10.1) Total Bilirubin 0.7 mg/dL (0.2-1.0) Aspartate Amino Transf (AST/SGOT) 20 U/L (15-37) Alanine Aminotransferase (ALT/SGPT) 51 U/L (14-59) Alkaline Phosphatase 56 U/L (46-116) Total Protein 5.7 g/dL (6.4-8.2) Albumin 2.9 g/dL (3.4-5.0) Albumin/Globulin Ratio 1.0 (1.0-1.7) Test 03/19/21 07:22 03/19/21 11:26 03/19/21 16:53 03/19/21 20:40 Glucose (Fingerstick) 236 mg/dL (70-99) 200 mg/dL (70-99) 229 mg/dL (70-99) 199 mg/dL (70-99) Test 03/20/21 00:04 03/20/21 06:14 03/20/21 06:15 03/20/21 11:01 Glucose (Fingerstick) 175 mg/dL (70-99) 228 mg/dL (70-99) 218 mg/dL (70-99) White Blood Count 6.5 x10^3/uL (4.0-11.0) Red Blood Count 4.01 x10^6/uL (3.50-5.40) Hemoglobin 12.8 g/dL (12.0-15.5) Hematocrit 38.1 % (36.0-47.0) Mean Corpuscular Volume 95 fL (79-100) Mean Corpuscular Hemoglobin 32 pg (25-35) Mean Corpuscular Hemoglobin Concent 34 g/dL (31-37) Red Cell Distribution Width 15.1 % (11.5-14.5) Platelet Count 199 x10^3/uL (140-400) Sodium Level 139 mmol/L (136-145) Potassium Level 3.9 mmol/L (3.5-5.1) Chloride Level 104 mmol/L (98-107) Carbon Dioxide Level 28 mmol/L (21-32) Anion Gap 7 (6-14) Blood Urea Nitrogen 16 mg/dL (7-20) Creatinine 0.5 mg/dL (0.6-1.0) Estimated GFR (Cockcroft-Gault) 131.1 BUN/Creatinine Ratio 32 (6-20) Glucose Level 226 mg/dL (70-99) Calcium Level 8.5 mg/dL (8.5-10.1) Total Bilirubin 0.8 mg/dL (0.2-1.0) Aspartate Amino Transf (AST/SGOT) 30 U/L (15-37) Alanine Aminotransferase (ALT/SGPT) 57 U/L (14-59) Alkaline Phosphatase 60 U/L (46-116) Total Protein 6.2 g/dL (6.4-8.2) Albumin 3.2 g/dL (3.4-5.0) Albumin/Globulin Ratio 1.1 (1.0-1.7) Laboratory Tests Test 03/19/21 16:53 03/19/21 20:40 03/20/21 00:04 03/20/21 06:14 Glucose (Fingerstick) 229 mg/dL (70-99) 199 mg/dL (70-99) 175 mg/dL (70-99) 228 mg/dL (70-99) Test 03/20/21 06:15 03/20/21 11:01 White Blood Count 6.5 x10^3/uL (4.0-11.0) Red Blood Count 4.01 x10^6/uL (3.50-5.40) Hemoglobin 12.8 g/dL (12.0-15.5) Hematocrit 38.1 % (36.0-47.0) Mean Corpuscular Volume 95 fL (79-100) Mean Corpuscular Hemoglobin 32 pg (25-35) Mean Corpuscular Hemoglobin Concent 34 g/dL (31-37) Red Cell Distribution Width 15.1 % (11.5-14.5) Platelet Count 199 x10^3/uL (140-400) Sodium Level 139 mmol/L (136-145) Potassium Level 3.9 mmol/L (3.5-5.1) Chloride Level 104 mmol/L (98-107) Carbon Dioxide Level 28 mmol/L (21-32) Anion Gap 7 (6-14) Blood Urea Nitrogen 16 mg/dL (7-20) Creatinine 0.5 mg/dL (0.6-1.0) Estimated GFR (Cockcroft-Gault) 131.1 BUN/Creatinine Ratio 32 (6-20) Glucose Level 226 mg/dL (70-99) Calcium Level 8.5 mg/dL (8.5-10.1) Total Bilirubin 0.8 mg/dL (0.2-1.0) Aspartate Amino Transf (AST/SGOT) 30 U/L (15-37) Alanine Aminotransferase (ALT/SGPT) 57 U/L (14-59) Alkaline Phosphatase 60 U/L (46-116) Total Protein 6.2 g/dL (6.4-8.2) Albumin 3.2 g/dL (3.4-5.0) Albumin/Globulin Ratio 1.1 (1.0-1.7) Glucose (Fingerstick) 218 mg/dL (70-99) Problem List try full liquids Justicifation of Admission Dx: Justifications for Admission: Justification of Admission Dx: Yes MONI CHOI AGRICULTURAL LENDER Mar 20, 2021 14:10
[2021-03-20 14:39] VITALS: BP 132/89
[2021-03-20 19:00] VITALS: BP 156/104
[2021-03-20] MEDS: INSULIN GLARGINE SYRINGE. SQ SCH (21:35)
[2021-03-20 23:00] VITALS: BP 108/82
[2021-03-21] MEDS: INSULIN LISPRO 300 UNITS/3 ML VIAL. SQ SCH ×3 (00:10→12:29)
[2021-03-21] MEDS: POTASSIUM CL 20MEQ D5-0.2%NACL 1,000 ML IV SCH ×2 (00:41→10:15)
[2021-03-21 03:00] VITALS: BP 154/95
--- NOTE | 2021-03-21 04:29 | PN ---
DATE: 03/20/2021 SUBJECTIVE: The patient is resting, slightly propped up in bed in no apparent distress, awake, alert. On questioning her, she stated that she has passed gas, did complain of cramping abdominal pain, but denied any nausea or vomiting. She is tolerating her clear liquid diet. PHYSICAL EXAMINATION: GENERAL: When I examined her, she looked well, mostly carcinoid, but there is no pallor, jaundice, cyanosis. No lymphadenopathy. No thyromegaly. No jugular venous distention. No limb edema. VITAL SIGNS: Her heart rate was 87, blood pressure 140/90, temperature was 98.2, respiratory rate was 18 and oxygen saturation was 94%. HEAD, EYES, EARS, NOSE, AND THROAT: Normocephalic, atraumatic. NECK: Supple. HEART: Normal first and second heart sounds, no gallop or murmur. CHEST: Clear to auscultation. No crepitation or rhonchi. ABDOMEN: Distended, soft. No tenderness. No guarding or rigidity. Bowel sounds audible. NEUROLOGIC: She has right-sided hemiplegia. Her intake was 1000, output was 700. LABORATORY DATA: As of this morning, her white cell count was 6500, hemoglobin 13, hematocrit 38, MCV 95, and platelet count of 199,000. Serum sodium was 139, potassium 3.9, chloride 104, bicarbonate 28, anion gap of 7, BUN 16, creatinine 0.5, estimated GFR was 131 mL per minute. Her glucose was 126, calcium was 8.5. Total bilirubin, AST, ALT, alkaline phosphatase were normal. Total protein was 6.2, albumin was 3.2. ASSESSMENT: Small-bowel obstruction. The patient has had no further complaint of nausea and has had passed gas. Her x-ray showed that stool is within the colon and the rectal vault. She was started on clear liquid diet and tolerating very well. PLAN: To continue with a clear liquid. Continue with IV fluid. Continue to monitor blood sugar and adjust insulin as needed. Continue with pain management. Await the surgical evaluation. I will advance her diet. I will discontinue the IV fluids and start perhaps physical and occupational therapy. MANUELA/YAZAN/CORNELIO DR: Amairani TID: [id number]
[2021-03-21 07:00] VITALS: BP 149/92
[2021-03-21] MEDS: HYDROmorphone 2 MG/ML VIAL IVP PRN ×2 (08:29)
--- NOTE | 2021-03-21 08:37 | PDOC ---
SURGICAL PROGRESS NOTE DATE: 03/21/21 TIME: 08:36 Subjective feels better had BM, no nausea tolerating diet intermittent pain but overall feels ready to go home Vital Signs Vital Signs Date Time Temp Pulse Resp B/P (MAP) Pulse Ox O2 Delivery O2 Flow Rate FiO2 03/21/21 08:29 Room Air 03/21/21 03:00 98.4 71 18 154/95 (114) 98 98.4 I&O Intake and Output 03/21/21 07:00 Intake Total 2000 ml Output Total 0 ml Balance 2000 ml IV Total 2000 ml Output Urine Total 0 ml # Voids 3 General: Alert, Oriented X3, Cooperative Abdomen: Soft, Other (obese ) Labs Laboratory Tests Test 03/19/21 11:26 03/19/21 16:53 03/19/21 20:40 03/20/21 00:04 Glucose (Fingerstick) 200 mg/dL (70-99) 229 mg/dL (70-99) 199 mg/dL (70-99) 175 mg/dL (70-99) Test 03/20/21 06:14 03/20/21 06:15 03/20/21 11:01 03/20/21 16:09 Glucose (Fingerstick) 228 mg/dL (70-99) 218 mg/dL (70-99) 128 mg/dL (70-99) White Blood Count 6.5 x10^3/uL (4.0-11.0) Red Blood Count 4.01 x10^6/uL (3.50-5.40) Hemoglobin 12.8 g/dL (12.0-15.5) Hematocrit 38.1 % (36.0-47.0) Mean Corpuscular Volume 95 fL (79-100) Mean Corpuscular Hemoglobin 32 pg (25-35) Mean Corpuscular Hemoglobin Concent 34 g/dL (31-37) Red Cell Distribution Width 15.1 % (11.5-14.5) Platelet Count 199 x10^3/uL (140-400) Sodium Level 139 mmol/L (136-145) Potassium Level 3.9 mmol/L (3.5-5.1) Chloride Level 104 mmol/L (98-107) Carbon Dioxide Level 28 mmol/L (21-32) Anion Gap 7 (6-14) Blood Urea Nitrogen 16 mg/dL (7-20) Creatinine 0.5 mg/dL (0.6-1.0) Estimated GFR (Cockcroft-Gault) 131.1 BUN/Creatinine Ratio 32 (6-20) Glucose Level 226 mg/dL (70-99) Calcium Level 8.5 mg/dL (8.5-10.1) Total Bilirubin 0.8 mg/dL (0.2-1.0) Aspartate Amino Transf (AST/SGOT) 30 U/L (15-37) Alanine Aminotransferase (ALT/SGPT) 57 U/L (14-59) Alkaline Phosphatase 60 U/L (46-116) Total Protein 6.2 g/dL (6.4-8.2) Albumin 3.2 g/dL (3.4-5.0) Albumin/Globulin Ratio 1.1 (1.0-1.7) Test 03/20/21 20:37 03/20/21 23:59 03/21/21 05:32 03/21/21 08:22 Glucose (Fingerstick) 218 mg/dL (70-99) 234 mg/dL (70-99) 173 mg/dL (70-99) 225 mg/dL (70-99) Laboratory Tests Test 03/20/21 11:01 03/20/21 16:09 03/20/21 20:37 03/20/21 23:59 Glucose (Fingerstick) 218 mg/dL (70-99) 128 mg/dL (70-99) 218 mg/dL (70-99) 234 mg/dL (70-99) Test 03/21/21 05:32 03/21/21 08:22 Glucose (Fingerstick) 173 mg/dL (70-99) 225 mg/dL (70-99) Problem List improved, had stool, + flatus tolerating diet stable surgically, no surgery plans Justicifation of Admission Dx: Justifications for Admission: Justification of Admission Dx: Yes MONI CHOI SUPPLY ANALYST March 21, 2021 08:37
--- NOTE | 2021-03-21 09:52 | DS ---
DATE OF DISCHARGE: 03/21/2021 HOSPITAL COURSE: The patient is sitting propped up in bed, in no apparent respiratory distress. She has eaten her breakfast without difficulty. She had a bowel movement. Denied any nausea or vomiting. She stated that she is generally feeling well and would like to go home. PHYSICAL EXAMINATION: GENERAL: On examining her, she looked well and was clearly in no apparent respiratory distress. There was no pallor, jaundice, cyanosis, thyromegaly. No jugular venous distention or no lower limb edema. VITAL SIGNS: Her heart rate was 79, blood pressure is 149/92, temperature 98.1, respiratory rate was 18, and oxygen saturation 100% on room air. HEAD, EYES, EARS, NOSE AND THROAT: Normocephalic, atraumatic. NECK: Supple. HEART: Normal first and second heart sounds. No gallop or murmur. CHEST: Clear to auscultation. No crepitation or rhonchi. ABDOMEN: Distended, soft, nontender, no guarding or rigidity. No organomegaly. All hernial orifice intact. Bowel sounds normal. NEUROLOGICAL: She is awake, alert, responding appropriately. All cranial nerves intact. She has right-sided hemiplegia. Her intake was 5000 and output was 1100. LABORATORY DATA: Her lab work yesterday showed a white cell count 6500, hemoglobin 13, hematocrit 38, MCV 95 and platelet count of 199,000. Serum sodium was 140, potassium 4.2, chloride 106, bicarbonate 29, anion gap of 5, BUN 19 and creatinine 0.6. Estimated GFR was 160 mL per minute. Her glucose 241, calcium was 8.2. Total bilirubin, AST, ALT and alkaline phosphatase were normal. Total protein 5.7 and albumin was 2.9. DISCHARGE MEDICATIONS: She was discharged home to continue on her albuterol sulfate 2 puffs every 4-6 hours, apixaban 5 mg twice a day, cetirizine 10 mg once a day, clonazepam 1 mg daily, dexamethasone 4 mg twice a day, fluticasone propionate 2 sprays to each nostril once a day, Gleevec 400 mg at bedtime, Levemir insulin 34 units daily, she is on insulin lispro 8 units 3 times a day with meals, metoprolol succinate 150 mg daily, ondansetron 8 mg every 8 hours, oxycodone/APAP 10/325 one tablet twice a day, pregabalin for Lyrica 150 mg 3 times a day and Crestor 40 mg, takes 20 daily. She is also on sucralfate 1 gram 3 times a day and tramadol 50 mg every 6 hours as needed. FINAL DISCHARGE DIAGNOSES: Bowel obstruction, resolved. The patient has had no more nausea, no vomiting and has bowel movement. X-ray showed stools within the colon and rectal vault. She is tolerating her diet very well. She has multiple other medical problems including: A. Type 2 diabetes mellitus. B. Hypertension. C. Hyperlipidemia. D. Morbid obesity and obstructive sleep apnea. E. Bronchial asthma/chronic obstructive pulmonary disease. F. Brain tumor that was resected on 11/12/2017 with recurrence for which she is now treated with chemotherapy and radiation treatment. MANUELA/LAUREN DR: Amairani TID: [id number]
[2021-03-21 11:00] VITALS: BP 159/82
[2021-03-21] MEDS: DEXAMETHASONE SOD PHOS 4 MG/ML VIAL IVP SCH ×2 (12:23)
--- NOTE | 2021-03-21 13:38 | NUR ---
Patient discharged home today with self care today via stretcher accompanied by ambulance personal. Patient is stable, IV removed, prescriptions, and discharge paperwork given to patient. Patient verbalized understanding of followup and discharge instruction.
== END 2021-03-21 13:45 | disposition home or self-care (01) | DRG 389 ==
LOC: 4 NORTH 05:02
PROVIDERS: ADMIT Internal Medicine; ATTEND Internal Medicine
DX: K56.609 Unspecified intestinal obstruction, unspecified as to partial versus complete obstruction (principal); Z68.42 Body mass index [BMI] 45.0-49.9, adult; E66.01 Morbid (severe) obesity due to excess calories; E78.5 Hyperlipidemia, unspecified; G47.33 Obstructive sleep apnea (adult) (pediatric); I10 Essential (primary) hypertension; J44.9 Chronic obstructive pulmonary disease, unspecified; K76.0 Fatty (change of) liver, not elsewhere classified; Z80.8 Family history of malignant neoplasm of other organs or systems; Z82.49 Family history of ischemic heart disease and other diseases of the circulatory system; Z83.3 Family history of diabetes mellitus; Z86.711 Personal history of pulmonary embolism; Z87.11 Personal history of peptic ulcer disease; Z87.891 Personal history of nicotine dependence; Z88.5 Allergy status to narcotic agent; Z90.710 Acquired absence of both cervix and uterus; Z92.21 Personal history of antineoplastic chemotherapy; Z92.3 Personal history of irradiation; F32.9 Major depressive disorder, single episode, unspecified; F41.9 Anxiety disorder, unspecified; E11.42 Type 2 diabetes mellitus with diabetic polyneuropathy; Z79.4 Long term (current) use of insulin; Z88.8 Allergy status to other drugs, medicaments and biological substances; Z90.722 Acquired absence of ovaries, bilateral
CPT/HCPCS: 36415; 74021; 80053; 82962; 85027; J1100; J1170; J1815; J3010; J3480; J7030; G0378; J7042

== ENCOUNTER → 2021-04-13 | Outpatient (CLI) | payer OTHER ==
[2021-03-21 11:00] VITALS: BP 159/82
[~2021-04-13] MED LIST changes: +GADOTERATE 7.5 MMOL/15ML VIAL. IVP ONE; +METO50TA4 PO; +OXYC1TAB22 PO; +PROAIR RESPICL90 MCG IH
--- NOTE | 2021-04-13 14:44 | RAD ---
EXAM: MRI BRAIN WITH AND WITHOUT CONTRAST. HISTORY: Meningioma, cancer staging. TECHNIQUE: Magnetic resonance images of the brain were obtained before and after the intravenous admi nistration of 20 mL Clariscan. COMPARISON: 02/03/2021, 01/13/2021. FINDINGS: A left parietal parafalcine enhancing mass is consistent with a meningioma status post cran iotomy. It measures 2.9 x 1.6 x 2.4 cm. There is no interval change. There is mild associated mass ef fect. Dural tails extend inferiorly and anteriorly along the falx. The main portion of the mass demon strates diffusion restriction, unchanged. There are no enhancing parenchymal lesions. Previously noted enhancement along the anterior garret is n o longer seen and was likely artifactual. There is no parenchymal diffusion restriction. There is mod erate white matter T2 hyperintensity along the left frontal lobe. This extends inferiorly into the le ft garret, consistent with a component of wall area degeneration. There is asymmetric mild to moderate atrophy of the left hemisphere with ex vacuo dilatation of the left lateral ventricle. The ventricles are normal in size and position. The paranasal sinuses are clear. The orbits are unremarkable. The temporal bones are unremarkable. Th e calvarium demonstrates no suspicious lesions. IMPRESSION: 1. Stable 2.9 x 2.4 x 1.6 in the left parietal parafalcine meningioma status post craniotomy. 2. 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 3. No evidence of metastatic disease. Electronically signed by: Tay Head MD (04/13/2021 2:41 PM) [facility]
== END ==
LOC: MRI 10:39
PROVIDERS: ATTEND Radiology Radiation Oncology
DX: D32.0 Benign neoplasm of cerebral meninges (principal)
CPT/HCPCS: 70553; A9575

== ENCOUNTER 2021-07-27 15:23 | Inpatient (IN) | payer OTHER ==
[~2021-07-27] VITALS: Ht 165.1 cm; Wt 137.6 kg
[~2021-07-27 15:23] MED LIST changes: -GADOTERATE 7.5 MMOL/15ML VIAL. IVP ONE; +LEVO500T8 PO; +MULT1TAB92 PO; +POTA-121 PO; -POTA20TA4 PO
[2021-07-27 16:00] LABS: BASO # 0.1 x10^3/uL (0.0-0.2); BASO % 1 % (0-3); EOS # 0.3 x10^3/uL (0.0-0.7); EOS % 4 % (0-3); LYMPH # 1.7 x10^3/uL (1.0-4.8); LYMPH % 20 % (24-48); MEAN CORPUSCULAR HEMOGLOBIN 31 pg (25-35); MEAN CORPUSCULAR HGB CONC 33 g/dL (31-37); MEAN CORPUSCULAR VOLUME 92 fL (79-100); MONO % 12 % (0-9); NEUT # 5.4 x10^3/uL (1.8-7.7); NEUT % 64 % (31-73); PLATELET COUNT 327 x10^3/uL (140-400); RED BLOOD COUNT 2.93 x10^6/uL (3.50-5.40); RED CELL DISTRIBUTION WIDTH 16.4 % (11.5-14.5); WHITE BLOOD COUNT 8.6 x10^3/uL (4.0-11.0)
[2021-07-27 16:08] LABS: CALCIUM 9.5 mg/dL (8.5-10.1); CREATININE 3.4 mg/dL (0.6-1.0); GFR 14.4; POTASSIUM 5.5 mmol/L (3.5-5.1)
--- NOTE | 2021-07-27 16:09 | PHYS DOC ---
Past Medical History Past Medical History: Cancer, CVA, Diabetes-Type II, Hypertension, Other Additional Past Medical Histor: PE, brain tumor, LEUKEMIA, CVA WITH R. SIDED DEFICIT Past Surgical History: Appendectomy, Cholecystectomy, , Hysterectomy, Other Additional Past Surgical Histo: LOW BACK, BRAIN SX-TUMOR Smoking Status: Former Smoker Alcohol Use: None Drug Use: None General Adult EDM: Chief Complaint: SHORTNESS OF BREATH HPI: HPI: Patient is a 51 year old female who presents with here by EMS for shortness of breath and chest pain that started couple hours ago. Patient is normally on 4 L of oxygen. From [facility] after she was transferred to [facility] few weeks ago before that she is promised. Patient has a [place] catheter in place that has not been replaced since May 27 of which it was stated. Patient states they have not bathe her for the last 2 weeks she has been there. Patient states that she has been getting dialysis for renal failure every Tuesday. Patient denies chest pain, fever, cough, diarrhea, numbness or tingling, new focal weakness, headache, dizziness, abdominal pain, nausea, vomit ing. Patient has history of end-stage renal disease, type 2 diabetes, renal failure on dialysis, COPD, morbid obesity, anxiety, brain cancer with surgery, leukemia, hyperlipidemia, chronic DVT, sleep apnea, hypertension, chronic pain, muscle weakness, lack of coordination. Review of Systems: Review of Systems: Constitutional: Denies fever or chills. [] Eyes: Denies change in visual acuity. [] HENT: Denies nasal congestion or sore throat. [] Respiratory: Denies cough or +shortness of breath. [] Cardiovascular: + chest pain or denies edema. [] GI: Denies abdominal pain, nausea, vomiting, bloody stools or diarrhea. [] : Denies dysuria. [] Musculoskeletal: Denies back pain or joint pain. [] Integument: Denies rash. [] Neurologic: Denies headache, focal weakness or sensory changes. [] Endocrine: Denies polyuria or polydipsia. [] Lymphatic: Denies swollen glands. [] Psychiatric: Denies depression or anxiety. [] Heart Score: C/O Chest Pain: Yes HEART Score for Chest Pain: HEART Score for Chest Pain Response (Comments) Value History Slighlty/Non-Suspicious 0 ECG Nonspecific Repolarizatio 1 Age >45 - < 65 1 Risk Factors >3 Risk Factors or Hx CAD 2 Troponin < Normal Limit 0 Total 4 Risk Factors: Risk Factors: DM, Current or recent (<one month) smoker, HTN, HLP, family history of CAD, obesity. Risk Scores: Score 0 - 3: 2.5% MACE over next 6 weeks - Discharge Home Score 4 - 6: 20.3% MACE over next 6 weeks - Admit for Clinical Observation Score 7 - 10: 72.7% MACE over next 6 weeks - Early Invasive Strategies Allergies: Allergies: Allergies Coded Allergies Type Severity Reaction Last Updated Verified azithromycin Allergy Intermediate 10/12/19 Yes codeine Allergy Intermediate 05/06/17 Yes morphine Allergy Intermediate 11/01/19 Yes I S O L A T I O N *CONTACT* Allergy Unknown 11/16/19 Yes Physical Exam: PE: Constitutional: Well developed, well nourished, no acute distress, non-toxic appearance. [] HENT: Normocephalic, atraumatic, bilateral external ears normal, oropharynx moist, no oral exudates, nose normal. [] Eyes: PERRLA, EOMI, conjunctiva normal, no discharge. [] Neck: Normal range of motion, no tenderness, supple, no stridor. [] Cardiovascular:Heart rate regular rhythm, no murmur [] Lungs & Thorax: Bilateral upper breath sounds clear and lower dimiished to auscultation [] Abdomen: Bowel sounds normal, soft, no tenderness, no masses, no pulsatile masses. Mid abdominal hernia.[] Skin: Warm, dry, no erythema, no rash. [] Back: No tenderness, no CVA tenderness. [] Extremities: No tenderness, no cyanosis, no clubbing, ROM intact, bilateral lower 2+ edema. [] Neurologic: Alert and oriented X 3, normal motor function, normal sensory function, no focal deficits noted. [] Psychologic: Affect normal, judgement normal, mood normal. [] EKG: EK and read by Dr Flores as sinus Rhythm but no stemi Radiology/Procedures: Radiology/Procedures: [] Impression: [facility] [address] [place], [place] [id number] IMAGING REPORT Signed PATIENT: ANKIT MCGREGOR LACCOUNT: [id number] : 1970 LOCATION: ER AGE: 51 SEX: F EXAM STATUS: REG ER ORD. PHYSICIAN: MARELY LOVING APRN REASON: SOA PROCEDURE: PORTABLE CHEST 1V Exam Date: 07/27/2021 3:40 PM XR CHEST 1V Indication: Reason: SOA / Spl. Instructions: / History: . Comparison: May 24, 2021 FINDINGS/ IMPRESSION: Lung volumes are low with elevation of the right hemidiaphragm. Right central venous catheter terminates near the cavoatrial junction. The cardiac silhouette is enlarged without significant congestion. There is no focal consolidation, pleural effusion or pneumothorax. Electronically signed by: Sara Castellano MD (07/27/2021 5:08 PM) [facility] DICTATED and SIGNED BY: SARA CASTELLANO MD DATE: 07/27/21 [id number] Course & Med Decision Making: Course & Med Decision Making Pertinent Labs and Imaging studies reviewed. (See chart for details) See HPI. Alert and oriented x4. Skin pink warm and dry. Peripheral edema 3+. Lungs are clear in upper lobes and diminished in lower lobes. [place] catheter is changed due to the last one being in placed May 27. She is afebrile. She has not made urine since she has been here with a new [place] catheter in. Spoke to Dr. Ang for her admission. We will continue to try to get urine. Chest x- ray is clear. Dragon Disclaimer: Amanda Disclaimer: This electronic medical record was generated, in whole or in part, using a voice recognition dictation system. Departure Departure Impression: Primary Impression: Chest pain Qualified Codes: R07.9 - Chest pain, unspecified Disposition: ADMITTED INPATIENT Admitting Physician: MAGGI Condition: STABLE Referrals: KAVYA ELIAS DO (PCP) MARELY LOVING APRN Jul 27, 2021 16:09
[2021-07-27 16:13] LABS: ALBUMIN 3.3 g/dL (3.4-5.0); MAGNESIUM 1.9 mg/dL (1.8-2.4); TOTAL BILIRUBIN 0.5 mg/dL (0.2-1.0); TOTAL PROTEIN 6.6 g/dL (6.4-8.2)
[2021-07-27 16:41] LABS: PROTHROMBIN TIME PATIENT 17.4 SEC (11.7-14.0)
--- NOTE | 2021-07-27 16:44 | EKG ---
[facility] [address] [place] [address] Test Date: 2021-07-27 Test Time: 15:23:28 Pat Name: ANKIT MCGREGOR Department: Room: Gender: F [employer]er: : 1970 Requested By: MARELY LOVING Order Number: [id number] Reading MD: Rod Conroy MD Measurements Intervals [place] Rate: 88 P: 151 MD: 134 QRS: 141 QRSD: 98 T: 126 QT: 364 QTc: 444 Interpretive Statements SINUS RHYTHM ABNORMAL RIGHT AXIS DEVIATION T ABNORMALITY IN HIGH LATERAL LEADS ABNORMAL EKG CANNOT RULE OUT LIMB LEAD REVERSAL Electronically Signed On 07-30-2021 9:31:51 CDT by Rod Conroy MD
--- NOTE | 2021-07-27 17:11 | RAD ---
Exam Date: 07/27/2021 3:40 PM XR CHEST 1V Indication: Reason: SOA / Spl. Instructions: / History: . Comparison: May 24, 2021 FINDINGS/ IMPRESSION: Lung volumes are low with elevation of the right hemidiaphragm. Right central venous catheter termin ates near the cavoatrial junction. The cardiac silhouette is enlarged without significant congestion. There is no focal consolidation, pleural effusion or pneumothorax. Electronically signed by: Mynor Castellano MD (07/27/2021 5:08 PM) [facility]
[2021-07-27] MEDS ORDERED: IV NORMAL SALINE 500ML BAG 250 ML IV ONE (17:45)
[2021-07-27 18:27] LABS: BILIRUBIN,URINE NEGATIVE (NEG); CLARITY,URINE TURBID; COLOR,URINE YELLOW; NITRITE,URINE NEGATIVE (NEG); PROTEIN,URINE 100 mg/dL (NEG-TRACE); UROBILINOGEN,URINE 0.2 mg/dL (0.2 mg/dL)
[2021-07-27 18:37] LABS: HYALINE CASTS, URINE FEW /HPF
[2021-07-27 18:38] LABS: BACTERIA,URINE MANY /HPF (0-FEW); WBC,URINE TNTC /HPF (0-4); YEAST,URINE PRESENT /HPF
[2021-07-27 20:12] VITALS: BP 103/59
[2021-07-27] MEDS ORDERED: ATOR40TA59 PO (20:50)
[2021-07-27] MEDS ORDERED: ASCO100T4 PO (20:50)
[2021-07-27] MEDS ORDERED: ONDA-84 PO (20:51)
[2021-07-27] MEDS ORDERED: ONDANSETRON ODT 4 MG TAB.RAPDIS. PO PRN (21:45)
[2021-07-27] MEDS ORDERED: ALBUTEROL SULFATE 2.5 MG/3 ML NEBU. NEB PRN (21:45)
[2021-07-27 22:00] VITALS: BP 104/62
[2021-07-27] MEDS: INSULIN GLARGINE SYRINGE. SQ SCH (22:00)
[2021-07-27] MEDS: clonazePAM 0.5 MG TABLET PO SCH (22:04)
[2021-07-27] MEDS: oxyCODONE/APAP 10/325 1 TAB TABLET PO PRN (22:05)
[2021-07-27] MEDS: APIXABAN 5 MG TABLET. PO SCH (22:05)
[2021-07-27] MEDS: PREGABALIN 75 MG CAPSULE PO SCH (22:05)
[2021-07-28 03:43] VITALS: BP 94/63
[2021-07-28] MEDS: oxyCODONE/APAP 10/325 1 TAB TABLET PO PRN ×3 (03:49→19:06)
[2021-07-28 07:00] VITALS: BP 86/58
[2021-07-28] MEDS: INSULIN LISPRO 300 UNITS/3 ML VIAL. SQ SCH ×3 (08:00→17:00)
[2021-07-28] MEDS: METOPROLOL SUCC 24HR ER 50 MG TAB.ER.24H. PO SCH (09:00)
[2021-07-28] MEDS: ASCORBIC ACID 500 MG TABLET PO SCH (10:11)
[2021-07-28] MEDS: APIXABAN 5 MG TABLET. PO SCH ×2 (10:11→20:11)
[2021-07-28] MEDS: MULTIVITAMIN with MINERAL TABLET. PO SCH (10:11)
[2021-07-28] MEDS: FLUTICASONE 50MCG/NASAL SPRAY 16GM BOTTLE. NS SCH (10:11)
[2021-07-28] MEDS: PREGABALIN 75 MG CAPSULE PO SCH ×2 (10:12→20:12)
[2021-07-28] MEDS: CETIRIZINE HCL 10 MG TABLET. PO SCH (10:12)
[2021-07-28] MEDS ORDERED: traMADol 50 MG TABLET PO PRN (10:15)
--- NOTE | 2021-07-28 10:20 | PDOC2 ---
PIETRO AYOUB APRN 07/28/21 1020: CARDIAC CONSULT DATE OF CONSULT Date of Consult DATE: 07/28/21 TIME: 10:07 REASON FOR CONSULT Reason for Consult: Chest pain REFERRING PHYSICIAN Referring Physician: May Arizmendi APRN SOURCE Source: Chart review, Patient HISTORY OF PRESENT ILLNESS HISTORY OF PRESENT ILLNESS This is a 51 yo female who presented from [facility] secondary to shortness of breath and central chest pressures. Is new ESRD on HD Tuesday, , Tuesday. Reports compliance with HD. PAST MEDICAL HISTORY Cardiovascular: HTN, Hyperlipidemia Pulmonary: Pulmonary embolus, Other (KRISS) CENTRAL NERVOUS SYSTEM: CVA, Other ( meningioma and prior brain surgery.) GI: GERD, Other (GIB ) Heme/Onc: Other (DVT, Leukemia ) Psych: Anxiety, Depression Musculoskeletal: Osteoarthritis Renal/: Chronic renal failure (ESRD ) Endocrine: Diabetes PAST SURGICAL HISTORY Past Surgical History: Appendectomy, Cholecystectomy, Hysterectomy FAMILY HISTORY Family History: Heart Disease, Hypertension SOCIAL HISTORY Smoke: Quit ALCOHOL: none Drugs: None Lives: [facility] (rehab ) CURRENT MEDICATIONS CURRENT MEDICATIONS Current Medications Medications (Trade) Dose Ordered Sig/Nikki Route PRN Reason Start Time Stop Time Status Last Admin Dose Admin Sodium Chloride 250 ml @ 250 mls/hr 1X ONCE IV 07/27/21 17:45 07/27/21 18:44 DC 07/27/21 17:55 Apixaban (Eliquis) 5 mg BID PO 07/27/21 22:00 07/27/21 22:05 Clonazepam (KlonoPIN) 1 mg HS PO 07/27/21 22:00 07/27/21 22:04 Insulin Glargine (Lantus Syringe) 34 unit QHS SQ 07/27/21 22:00 07/27/21 22:00 Pregabalin (Lyrica) 150 mg BID PO 07/27/21 22:00 07/27/21 22:05 Oxycodone/ Acetaminophen (Percocet 10/325) 1 tab PRN Q4HRS PRN PO PAIN 07/27/21 21:00 07/28/21 03:49 ALLERGIES ALLERGIES: Coded Allergies: azithromycin (Verified Allergy, Intermediate, 10/12/19) codeine (Verified Allergy, Intermediate, 05/06/17) morphine (Verified Allergy, Intermediate, 11/01/19) Tolerates hydromorphone and oxycodone I S O L A T I O N *CONTACT* (Verified Allergy, Unknown, 11/16/19) ESBL ROS Review of System 14 point ROS conducted with pertinent positives noted above in HPI PHYSICAL EXAM General: Alert, Oriented X3, Cooperative, No acute distress HEENT: Atraumatic, Mucous membr. moist/pink Lungs: Other (diminished, fine expiratory wheezes ) Abdomen: Soft, Other (obese) Extremities: Other (anasarca ) Skin: No significant lesion Neuro: Normal speech, Sensation intact Psych/Mental Status: Mental status NL, Mood NL MUSCULOSKELETAL: Osteoarthritic changes both hands VITALS/I&O VITALS/I&O: Vital Signs Date Time Temp Pulse Resp B/P (MAP) Pulse Ox O2 Delivery O2 Flow Rate FiO2 07/28/21 07:00 98.5 88 16 86/58 (67) 92 Nasal Cannula 2.0 98.5 I & O 07/27/21 07/27/21 07/28/21 15:00 23:00 07:00 Intake Total 370 ml 120 ml Balance 370 ml 120 ml LABS Lab: Laboratory Tests Test 07/27/21 15:45 07/27/21 16:20 07/27/21 16:34 07/27/21 18:10 White Blood Count 8.6 x10^3/uL (4.0-11.0) Red Blood Count 2.93 x10^6/uL (3.50-5.40) L Hemoglobin 9.0 g/dL (12.0-15.5) L Hematocrit 27.0 % (36.0-47.0) L Mean Corpuscular Volume 92 fL (79-100) Mean Corpuscular Hemoglobin 31 pg (25-35) Mean Corpuscular Hemoglobin Concent 33 g/dL (31-37) Red Cell Distribution Width 16.4 % (11.5-14.5) H Platelet Count 327 x10^3/uL (140-400) Neutrophils (%) (Auto) 64 % (31-73) Lymphocytes (%) (Auto) 20 % (24-48) L Monocytes (%) (Auto) 12 % (0-9) H Eosinophils (%) (Auto) 4 % (0-3) H Basophils (%) (Auto) 1 % (0-3) Neutrophils # (Auto) 5.4 x10^3/uL (1.8-7.7) Lymphocytes # (Auto) 1.7 x10^3/uL (1.0-4.8) Monocytes # (Auto) 1.0 x10^3/uL (0.0-1.1) Eosinophils # (Auto) 0.3 x10^3/uL (0.0-0.7) Basophils # (Auto) 0.1 x10^3/uL (0.0-0.2) Sodium Level 132 mmol/L (136-145) L Potassium Level 5.5 mmol/L (3.5-5.1) H Chloride Level 95 mmol/L (98-107) L Carbon Dioxide Level 29 mmol/L (21-32) Anion Gap 8 (6-14) Blood Urea Nitrogen 26 mg/dL (7-20) H Creatinine 3.4 mg/dL (0.6-1.0) H Estimated GFR (Cockcroft-Gault) 14.4 BUN/Creatinine Ratio 8 (6-20) Glucose Level 205 mg/dL (70-99) H Calcium Level 9.5 mg/dL (8.5-10.1) Magnesium Level 1.9 mg/dL (1.8-2.4) Total Bilirubin 0.5 mg/dL (0.2-1.0) Aspartate Amino Transferase (AST) 37 U/L (15-37) Alanine Aminotransferase (ALT) 55 U/L (14-59) Alkaline Phosphatase 112 U/L (46-116) Troponin I Quantitative < 0.017 ng/mL (0.000-0.055) MJ-Syi-F-Type Natriuretic Peptide 604 pg/mL (0-124) H Total Protein 6.6 g/dL (6.4-8.2) Albumin 3.3 g/dL (3.4-5.0) L Albumin/Globulin Ratio 1.0 (1.0-1.7) Lipase 163 U/L (73-393) Prothrombin Time 17.4 SEC (11.7-14.0) H Prothrombin Time INR 1.4 (0.8-1.1) H SARS-CoV-2 RNA (VIN) Negative (Negative) SARS-CoV-2 Antigen (Rapid) Negative (NEGATIVE) Urine Collection Type Unknown Urine Color Yellow Urine Clarity Turbid Urine pH 5.0 (<5.0-8.0) Urine Specific [place] 1.020 (1.000-1.030) Urine Protein 100 mg/dL (NEG-TRACE) Urine Glucose (UA) Negative mg/dL (NEG) Urine Ketones (Stick) Trace mg/dL (NEG) Urine Blood Large (NEG) Urine Nitrite Negative (NEG) Urine Bilirubin Negative (NEG) Urine Urobilinogen Dipstick 0.2 mg/dL (0.2 mg/dL) Urine Leukocyte Esterase Large (NEG) Urine RBC 11-20 /HPF (0-2) Urine WBC Tntc /HPF (0-4) Urine Bacteria Many /HPF (0-FEW) Urine Hyaline Casts Few /HPF Urine Yeast Present /HPF Test 07/27/21 19:50 07/27/21 21:21 07/27/21 22:05 07/28/21 08:14 Troponin I Quantitative < 0.017 ng/mL (0.000-0.055) < 0.017 ng/mL (0.000-0.055) Glucose (Fingerstick) 184 mg/dL (70-99) H 145 mg/dL (70-99) H Laboratory Tests 07/27/21 15:45 Laboratory Tests 07/27/21 15:45 ECHOCARDIOGRAM ECHOCARDIOGRAM <Conclusion> The left ventricular systolic function is normal and the ejection fraction is within normal range. The Ejection Fraction is 55-60%. There is normal LV segmental wall motion. Doppler and Color Flow revealed trace to mild tricuspid regurgitation. There is moderate pulmonary hypertension. The PA pressure was estimated at 47 mmHg. DATE: 01/12/21 [id number] ASSESSMENT/PLAN ASSESSMENT/PLAN 1. Chest pain, mixed features; AMI ruled out. Echo 01/11 with preserved LV systolic function. EKG shows lateral and anteroseptal twave inversions that were not present in May of this year. 2. Mild acute on chronic diastolic CHF 2. Hypertension; controlled 3. Hyperlipidemia; statin 4. History of a brain tumor s/p resection and recent recurrence. s/p chemo and radiation 5. Diabetes, II 6. ESRD on HD, hyperkalemia 7. H/o DVTPE; on Eliquis. 8. H/o CVA 10. KRISS with CPAP 11. Chronic [place] with UTI 12. Anasarca Recommendations Continue ASA/statin therapy Fluid offloading via HD Limited echo to assess LV systolic function Probable outpatient ischemic evaluation Eliquis for PE/DVT prophylaxis Supportive care ALL WALKER MD 07/28/21 1838: CARDIAC CONSULT ASSESSMENT/PLAN ASSESSMENT/PLAN Patient seen and examined I agree with our nurse practitioners assessment and plan. Chest pain, mixed features; AMI ruled out. Echo 01/11 with preserved LV systolic function. EKG shows lateral and anteroseptal t wave inversions that were not present in May of this year. Continue medical treatment. Probable outpatient ischemia evaluation based on clinical course. Mild acute on chronic diastolic CHF. Continue present treatment. Fluid management as per dialysis. Hypertension; controlled Hyperlipidemia; statin History of a brain tumor s/p resection and recent recurrence. s/p chemo and radiation Diabetes, II ESRD on HD, as per renal. H/o DVTPE; on Eliquis. H/o CVA KRISS with CPAP PIETRO AYOUB APRN Jul 28, 2021 10:20 ALL WALKER MD Jul 28, 2021 18:38
[2021-07-28] MEDS ORDERED: clonazePAM 0.5 MG TABLET PO ONE (10:30)
--- NOTE | 2021-07-28 10:31 | PN ---
DATE: 07/28/2021 SUBJECTIVE: The patient is resting, slightly propped up in bed, in no apparent distress. On questioning her this morning, she has had no further episodes of chest pain. Denied any shortness of breath and said that she has slept well overnight. OBJECTIVE: GENERAL: When I examined her, she looked pale, but no jaundice, cyanosis, no lymphadenopathy, no thyromegaly, no jugular venous distention, but generalized anasarca. VITAL SIGNS: Her heart rate was 88, blood pressure was 86/58, temperature was 98.5, respiratory rate was 16 and oxygen saturation was 92% on 2 liters of oxygen. HEAD, EYES, EARS, NOSE, AND THROAT: Normocephalic, atraumatic. NECK: Supple. HEART: Normal first and second heart sounds, no gallop or murmur. CHEST: Clear to auscultation. No crepitation or rhonchi. ABDOMEN: Distended, soft, nontender. NEUROLOGIC: She is awake, alert, responding appropriately. She has right-sided hemiplegia. LABORATORY DATA: She has two more sets of cardiac enzymes, showed the troponin was less than 0.017, excluding acute myocardial infarction. Her urinalysis showed that the urine was yellow, turbid with a pH of 5, specific gravity of 1.020. The urine was positive for large leukocyte esterase, 11-20 RBCs and too numerous to count wbc's and many bacteria. Apparently, her urine was sent for culture and sensitivity. PLAN: Plan is to obviously resume all her medications. We will consult the social work assistant as the patient is not satisfied with her care at the [facility] and would like to go home with home health. ELDA DR: Amairani TID: [id number]
--- NOTE | 2021-07-28 10:52 | PDOC2 ---
CONSULT Date of Consult Date of Consult DATE: 07/28/21 TIME: 10:45 Reason for Consult Reason for Consult: RENAL FAILURE Referring Physician Referring Physician: MICHELET Identification/Chief Complaint Chief Complaint SOB Source Source: Chart review, Patient History of Present Illness Reason for Visit: THIS IS A 51 YR WITH SOB AND GENERALIZED WEAKNESS. SHE HAS HAD CARRINGTON-ATN VS INTERSTITIAL NEPHRITIS AND HAS BEEN ON HD SINCE MAY. SHE IS NOTED TO HAVE EDEMA AND VOLUME OVERLOAD. HAS COMPLAINED OF SOME CHEST PAIN AND CARDIOLOGY EVALUATION IS ONGOING AT THIS TIME. LABS INDICATED A CR OF 3.5, HYPERKALEMIA AND HYPONATREMIA. CARRINGTON FELT TO BE DUE TO CHEMO, VANC AND SEPSIS IN MAY. HEMODYNAMICA LLY STABLE. POOR URINE DESPITE LASIX AND NO IMPROVEMENT IN CLEARANCE NOTED. HAS BEEN GETTING OP HD ON TTS VIA A RIGHT IJ TDC Past Medical History Cardiovascular: CAD, HTN, Hyperlipidemia Pulmonary: Pulmonary embolus, Other (KRISS) CENTRAL NERVOUS SYSTEM: CVA, Other ( meningioma and prior brain surgery.) GI: GERD, Other (GIB ) Heme/Onc: Other (DVT, Leukemia ) Hepatobiliary: No pertinent hx Psych: Anxiety, Depression Musculoskeletal: Osteoarthritis Rheumatologic: No pertinent hx Infectious disease: No pertinent hx Renal/: Acute renal failure, Chronic renal failure (ESRD ) Endocrine: Diabetes Past Surgical History Past Surgical History: Appendectomy, Cholecystectomy, Hysterectomy Family History Family History: Heart Disease, Hypertension Social History Quit ALCOHOL: occassional Drugs: None Lives: with Family Current Problem List Problem List Problems Medical Problems: (1) Chest pain Status: Acute Current Medications Current Medications Current Medications Sodium Chloride 250 ml @ 250 mls/hr 1X ONCE IV Last administered on 07/27/21at 17:55; Start 07/27/21 at 17:45; Stop 07/27/21 at 18:44; Status DC Apixaban (Eliquis) 5 mg BID PO Last administered on 07/28/21at 10:11; Start 07/27/21 at 22:00 Cetirizine HCl (ZyrTEC) 10 mg DAILY PO Last administered on 07/28/21at 10:12; Start 07/28/21 at 09:00 Fluticasone Propionate (Flonase) 2 spray DAILY NS Last administered on 07/28/21at 10:11; Start 07/28/21 at 09:00 Insulin Human Lispro (HumaLOG) 8 units TIDWMEALS SQ ; Start 07/28/21 at 08:00 Metoprolol Succinate (Toprol Xl) 150 mg DAILY PO ; Start 07/28/21 at 09:00 Multivitamins (Thera M Plus) 1 tab DAILY PO Last administered on 07/28/21at 10:11; Start 07/28/21 at 09:00 Albuterol Sulfate (Ventolin Neb Soln) 2.5 mg PRN Q4HRS PRN NEB SHORTNESS OF BREATH; Start 07/27/21 at 21:45 Ascorbic Acid (Vitamin C) 500 mg DAILY PO Last administered on 07/28/21at 10:11; Start 07/28/21 at 09:00 Clonazepam (KlonoPIN) 1 mg HS PO Last administered on 07/27/21at 22:04; Start 07/27/21 at 22:00 Insulin Glargine (Lantus Syringe) 34 unit QHS SQ Last administered on 07/27/21at 22:00; Start 07/27/21 at 22:00 Ondansetron HCl (Zofran Odt) 4 mg PRN Q6HRS PRN PO NAUSEA/VOMITING; Start 07/27/21 at 21:45 Pregabalin (Lyrica) 150 mg BID PO Last administered on 07/28/21at 10:12; Start 07/27/21 at 22:00 Oxycodone/ Acetaminophen (Percocet 10/325) 1 tab PRN Q4HRS PRN PO PAIN Last administered on 07/28/21at 03:49; Start 07/27/21 at 21:00 Atorvastatin Calcium (Lipitor) 80 mg HS PO ; Start 07/28/21 at 21:00 Oxycodone/ Acetaminophen (Percocet 10/325) 1 tab PRN Q4HRS PRN PO MODERATE TO SEVERE PAIN; Start 07/28/21 at 10:15 Tramadol HCl (Ultram) 50 mg PRN Q6HRS PRN PO MILD TO MODERATE PAIN; Start 07/28/21 at 10:15 Clonazepam (KlonoPIN) 1 mg ONCE ONCE PO ; Start 07/28/21 at 10:30; Stop 07/28/21 at 10:31; Status DC Hydromorphone HCl (Dilaudid) 2 mg QHS PO ; Start 07/28/21 at 21:00 Active Scripts Active Thera-M Tablet (Multivits,Ca,Minerals/Iron/Fa) 1 Each Tablet 1 Tab PO DAILY 30 Days Admelog (Insulin Lispro) 100 Unit/1 Ml Vial 8 Units SQ TIDWMEALS 30 Days Reported Ondansetron Hcl 4 Mg Tablet 1 Tab PO PRN Q6HRS Atorvastatin Calcium 40 Mg Tablet 80 Mg PO HS Vitamin C (Ascorbic Acid) 100 Mg Tablet 1 Tab PO DAILY 30 Days Tramadol Hcl 50 Mg Tablet 50 Mg PO PRN Q6HRS PRN Percocet 10-325 Mg Tablet (Oxycodone/Acetaminophen) 1 Each Tablet 1 Tab PO Q4HRS PRN Proair Respiclick (Albuterol Sulfate) 90 Mcg Aer.pow.ba 2 Puff IH PRN Q4-6HRS PRN Toprol XL (Metoprolol Succinate) 50 Mg Tab.er.24h 150 Mg PO DAILY Levemir (Insulin Detemir) 100 Unit/1 Ml Vial 34 Unit SQ HS Klonopin (Clonazepam) 1 Mg Tablet 1 Tab PO HS Eliquis (Apixaban) 5 Mg Tablet 5 Mg PO BID Lyrica (Pregabalin) 150 Mg Capsule 1 Cap PO TID Fluticasone Propionate Nasal [place] (Fluticasone Propionate) 16 Gm [place].susp 2 [place] NS DAILY Zyrtec (Cetirizine Hcl) 10 Mg Tablet 1 Tab PO DAILY Allergies Allergies: Coded Allergies: azithromycin (Verified Allergy, Intermediate, 10/12/19) codeine (Verified Allergy, Intermediate, 05/06/17) morphine (Verified Allergy, Intermediate, 11/01/19) Tolerates hydromorphone and oxycodone I S O L A T I O N *CONTACT* (Verified Allergy, Unknown, 11/16/19) ESBL ROS General: YES: Fatigue, Malaise, Appetite PSYCHOLOGICAL ROS: YES: Anxiety, Depression Eyes: Yes Decreased vision HEENT: YES: Duy ALLERGY AND IMMUNOLOGY: YES: Seasonal Allergies Respiratory: YES: Cough, Orthopnea, Shortness of breath Cardiovascular: yes Orthopnea, yes Edema Gastrointestinal: Yes Constipation Genitourinary: YES Other (ANURIA) Musculoskeletal: Yes Muscular Weakness Neurological: Yes Weakness Skin: Yes Dry Skin Physical Exam General: Alert, Oriented X3, Cooperative, mild distress HEENT: Atraumatic, PERRLA, EOMI Lungs: Other (DECREASED AT BASES) Heart: Regular rate Abdomen: Normal bowel sounds, Soft Extremities: No cyanosis Skin: No breakdown Neuro: Normal speech Psych/Mental Status: Mental status NL, Mood NL MUSCULOSKELETAL: No joint tenderness, No deformity, Other (3+ EDEMA) Vitals VITALS Vital Signs Date Time Temp Pulse Resp B/P (MAP) Pulse Ox O2 Delivery O2 Flow Rate FiO2 07/28/21 09:00 88 86/58 07/28/21 07:00 98.5 16 92 Nasal Cannula 2.0 98.5 Labs Labs Laboratory Tests Test 07/27/21 15:45 07/27/21 16:20 07/27/21 16:34 07/27/21 18:10 White Blood Count 8.6 x10^3/uL (4.0-11.0) Red Blood Count 2.93 x10^6/uL (3.50-5.40) Hemoglobin 9.0 g/dL (12.0-15.5) Hematocrit 27.0 % (36.0-47.0) Mean Corpuscular Volume 92 fL (79-100) Mean Corpuscular Hemoglobin 31 pg (25-35) Mean Corpuscular Hemoglobin Concent 33 g/dL (31-37) Red Cell Distribution Width 16.4 % (11.5-14.5) Platelet Count 327 x10^3/uL (140-400) Neutrophils (%) (Auto) 64 % (31-73) Lymphocytes (%) (Auto) 20 % (24-48) Monocytes (%) (Auto) 12 % (0-9) Eosinophils (%) (Auto) 4 % (0-3) Basophils (%) (Auto) 1 % (0-3) Neutrophils # (Auto) 5.4 x10^3/uL (1.8-7.7) Lymphocytes # (Auto) 1.7 x10^3/uL (1.0-4.8) Monocytes # (Auto) 1.0 x10^3/uL (0.0-1.1) Eosinophils # (Auto) 0.3 x10^3/uL (0.0-0.7) Basophils # (Auto) 0.1 x10^3/uL (0.0-0.2) Sodium Level 132 mmol/L (136-145) Potassium Level 5.5 mmol/L (3.5-5.1) Chloride Level 95 mmol/L (98-107) Carbon Dioxide Level 29 mmol/L (21-32) Anion Gap 8 (6-14) Blood Urea Nitrogen 26 mg/dL (7-20) Creatinine 3.4 mg/dL (0.6-1.0) Estimated GFR (Cockcroft-Gault) 14.4 BUN/Creatinine Ratio 8 (6-20) Glucose Level 205 mg/dL (70-99) Calcium Level 9.5 mg/dL (8.5-10.1) Magnesium Level 1.9 mg/dL (1.8-2.4) Total Bilirubin 0.5 mg/dL (0.2-1.0) Aspartate Amino Transf (AST/SGOT) 37 U/L (15-37) Alanine Aminotransferase (ALT/SGPT) 55 U/L (14-59) Alkaline Phosphatase 112 U/L (46-116) Troponin I Quantitative < 0.017 ng/mL (0.000-0.055) NN-Ojq-V-Type Natriuretic Peptide 604 pg/mL (0-124) Total Protein 6.6 g/dL (6.4-8.2) Albumin 3.3 g/dL (3.4-5.0) Albumin/Globulin Ratio 1.0 (1.0-1.7) Lipase 163 U/L (73-393) Prothrombin Time 17.4 SEC (11.7-14.0) Prothromb Time International Ratio 1.4 (0.8-1.1) SARS-CoV-2 RNA (VIN) Negative (Negative) SARS-CoV-2 Antigen (Rapid) Negative (NEGATIVE) Urine Collection Type Unknown Urine Color Yellow Urine Clarity Turbid Urine pH 5.0 (<5.0-8.0) Urine Specific [place] 1.020 (1.000-1.030) Urine Protein 100 mg/dL (NEG-TRACE) Urine Glucose (UA) Negative mg/dL (NEG) Urine Ketones (Stick) Trace mg/dL (NEG) Urine Blood Large (NEG) Urine Nitrite Negative (NEG) Urine Bilirubin Negative (NEG) Urine Urobilinogen Dipstick 0.2 mg/dL (0.2 mg/dL) Urine Leukocyte Esterase Large (NEG) Urine RBC 11-20 /HPF (0-2) Urine WBC Tntc /HPF (0-4) Urine Bacteria Many /HPF (0-FEW) Urine Hyaline Casts Few /HPF Urine Yeast Present /HPF Test 07/27/21 19:50 07/27/21 21:21 07/27/21 22:05 07/28/21 08:14 Troponin I Quantitative < 0.017 ng/mL (0.000-0.055) < 0.017 ng/mL (0.000-0.055) Glucose (Fingerstick) 184 mg/dL (70-99) 145 mg/dL (70-99) Laboratory Tests Test 07/27/21 15:45 07/27/21 16:20 07/27/21 16:34 07/27/21 18:10 White Blood Count 8.6 x10^3/uL (4.0-11.0) Red Blood Count 2.93 x10^6/uL (3.50-5.40) Hemoglobin 9.0 g/dL (12.0-15.5) Hematocrit 27.0 % (36.0-47.0) Mean Corpuscular Volume 92 fL (79-100) Mean Corpuscular Hemoglobin 31 pg (25-35) Mean Corpuscular Hemoglobin Concent 33 g/dL (31-37) Red Cell Distribution Width 16.4 % (11.5-14.5) Platelet Count 327 x10^3/uL (140-400) Neutrophils (%) (Auto) 64 % (31-73) Lymphocytes (%) (Auto) 20 % (24-48) Monocytes (%) (Auto) 12 % (0-9) Eosinophils (%) (Auto) 4 % (0-3) Basophils (%) (Auto) 1 % (0-3) Neutrophils # (Auto) 5.4 x10^3/uL (1.8-7.7) Lymphocytes # (Auto) 1.7 x10^3/uL (1.0-4.8) Monocytes # (Auto) 1.0 x10^3/uL (0.0-1.1) Eosinophils # (Auto) 0.3 x10^3/uL (0.0-0.7) Basophils # (Auto) 0.1 x10^3/uL (0.0-0.2) Sodium Level 132 mmol/L (136-145) Potassium Level 5.5 mmol/L (3.5-5.1) Chloride Level 95 mmol/L (98-107) Carbon Dioxide Level 29 mmol/L (21-32) Anion Gap 8 (6-14) Blood Urea Nitrogen 26 mg/dL (7-20) Creatinine 3.4 mg/dL (0.6-1.0) Estimated GFR (Cockcroft-Gault) 14.4 BUN/Creatinine Ratio 8 (6-20) Glucose Level 205 mg/dL (70-99) Calcium Level 9.5 mg/dL (8.5-10.1) Magnesium Level 1.9 mg/dL (1.8-2.4) Total Bilirubin 0.5 mg/dL (0.2-1.0) Aspartate Amino Transf (AST/SGOT) 37 U/L (15-37) Alanine Aminotransferase (ALT/SGPT) 55 U/L (14-59) Alkaline Phosphatase 112 U/L (46-116) Troponin I Quantitative < 0.017 ng/mL (0.000-0.055) VN-Qgv-U-Type Natriuretic Peptide 604 pg/mL (0-124) Total Protein 6.6 g/dL (6.4-8.2) Albumin 3.3 g/dL (3.4-5.0) Albumin/Globulin Ratio 1.0 (1.0-1.7) Lipase 163 U/L (73-393) Prothrombin Time 17.4 SEC (11.7-14.0) Prothromb Time International Ratio 1.4 (0.8-1.1) SARS-CoV-2 RNA (VIN) Negative (Negative) SARS-CoV-2 Antigen (Rapid) Negative (NEGATIVE) Urine Collection Type Unknown Urine Color Yellow Urine Clarity Turbid Urine pH 5.0 (<5.0-8.0) Urine Specific [place] 1.020 (1.000-1.030) Urine Protein 100 mg/dL (NEG-TRACE) Urine Glucose (UA) Negative mg/dL (NEG) Urine Ketones (Stick) Trace mg/dL (NEG) Urine Blood Large (NEG) Urine Nitrite Negative (NEG) Urine Bilirubin Negative (NEG) Urine Urobilinogen Dipstick 0.2 mg/dL (0.2 mg/dL) Urine Leukocyte Esterase Large (NEG) Urine RBC 11-20 /HPF (0-2) Urine WBC Tntc /HPF (0-4) Urine Bacteria Many /HPF (0-FEW) Urine Hyaline Casts Few /HPF Urine Yeast Present /HPF Test 07/27/21 19:50 07/27/21 21:21 07/27/21 22:05 07/28/21 08:14 Troponin I Quantitative < 0.017 ng/mL (0.000-0.055) < 0.017 ng/mL (0.000-0.055) Glucose (Fingerstick) 184 mg/dL (70-99) 145 mg/dL (70-99) Images Images Exam Date: 07/27/2021 3:40 PM XR CHEST 1V Indication: Reason: SOA / Spl. Instructions: / History: . Comparison: May 24, 2021 FINDINGS/ IMPRESSION: Lung volumes are low with elevation of the right hemidiaphragm. Right central venous catheter terminates near the cavoatrial junction. The cardiac silhouette is enlarged without significant congestion. There is no focal consolidation, pleural effusion or pneumothorax. Electronically signed by: Mynor Castellano MD (07/27/2021 5:08 PM) [facility] Assessment/Plan Assessment/Plan IMP VOLUME OVERLOAD ACUTE ON CHRONIC DIASTOLIC CHF CARRINGTON - ATN-NO [id number]/VANC/CHEMO MORBID OBESITY ANASARCA S/P CHEMO AND RAD TX FOR BRAIN TUMOR PLAN HD TODAY AND DAILY FOR NOW-ATTEMPT 4.0 LITERS UF WILL USE HER RIGHT IJ TUNNELED HD LINE CONT EPOGEN RESUME LASIX WILL NEED LTAC WILL CONT WITH SUPPORTIVE CARE CARDIOLOGY EVAL AND TX LISA ARZOLA MD Jul 28, 2021 10:52
[2021-07-28] MEDS ORDERED: EPOETIN ALFA-EPBX for ESRD 20,000 UNIT/ML VIAL. SQ ONE (11:00)
[2021-07-28 11:16] VITALS: BP 102/54
--- NOTE | 2021-07-28 14:14 | HP ---
ADMIT DATE: 07/28/2021 HISTORY OF PRESENT ILLNESS: The patient is a 51-year-old female, resident at [facility], who was brought to the Emergency Room with complaints of shortness of breath and chest pain. She is on hemodialysis and she dialyzes on Tuesday, , Tuesday. She was at [facility] for extended period of time and was transferred to [facility] and from there, she was admitted to [facility] and has been there for the last 2 weeks. She has a [place] catheter in place that has not been changed or replaced since 05/27, when it was placed in. She stated that she has not had a bath for the last 2 weeks that she has been at [facility]. She has been getting dialysis at the [facility]. She did actually complain of chest pain, but denied any cough or phlegm and denied any fever. She was evaluated in the Emergency Room and has had lab work, which showed that she has normochromic normocytic anemia. Her prothrombin time and INR are slightly elevated. Her chemistry is variable as she is hemodialysis dependent. Her sodium was 132, potassium 5.5. She is scheduled to be dialyzed today. Her first set of cardiac enzyme was less than 0.017 and therefore, the patient was admitted to do more sets of cardiac enzyme, to consult the fiscal analyst as well as the auto bench mechanic. PAST MEDICAL HISTORY: Significant for type 2 diabetes mellitus, hypertension, hyperlipidemia, morbid obesity, obstructive sleep apnea, history of bronchial asthma/COPD, history of brain tumor that was resected on 11/12/2017 at [facility] and she has been followed by Oncology team. She had a recurrence, however, tumor was treated with radiation therapy on 03/18/2021. On most recent admission, also had left upper extremity cellulitis and she also has UTI and acute kidney injury, for which she has been on hemodialysis. PAST SURGICAL HISTORY: Significant for multiple ovarian cysts removal with 3 C-sections. She had also abdominal hysterectomy, bilateral salpingo-oophorectomy, cholecystectomy, appendectomy, back surgery, and brain tumor resection done at [facility]. ALLERGIES: SHE IS ALLERGIC TO AZITHROMYCIN, CODEINE AND MORPHINE. FAMILY HISTORY: She has 2 brothers and 3 sisters, 1 brother is older and the rest are younger, all have hypertension and diabetes. Her father at the age of 60 due to massive myocardial infarction. Her mother is still alive in her 70s, has diabetes and ovarian, liver and thyroid cancers. SOCIAL HISTORY: She is , has 1 daughter and 2 sons. She quit smoking about 2 years ago. She does not drink alcohol or do recreational drugs. 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 MEDICATIONS: She is currently on following medications: She is on cetirizine 10 mg once a day, albuterol sulfate 2 puffs every 4-6 hours, apixaban 5 mg twice a day, atorvastatin calcium 40 mg at bedtime, metoprolol succinate 150 mg once a day, oxycodone/APAP 10/325 one tablet every 4 hours, tramadol 50 mg every 6 hours as needed, clonazepam 1 mg at bedtime, pregabalin 150 mg 3 times a day, Flonase 2 sprays to each nostril once a day, ondansetron 4 mg every 6 hours. She is on insulin detemir 54 units at bedtime and Novolog 8 units before meals. She is on ascorbic acid 500 mg once a day, multivitamin with mineral 1 tablet once a day. REVIEW OF SYSTEMS: As per history of present illness. PHYSICAL EXAMINATION: GENERAL: On arrival to the Emergency Room, the patient was pale, but not jaundiced or cyanosed. No lymphadenopathy, no thyromegaly, no jugular venous distention, but generalized anasarca. VITAL SIGNS: Her heart rate was 87, blood pressure was 114/70, temperature was 98.5, respiratory rate was 20 and oxygen saturation was 95%. HEAD, EYES, EARS, NOSE, AND THROAT: Normocephalic, atraumatic. NECK: Supple. HEART: Showed normal first and second heart sounds, no gallop, rub or murmur. CHEST: Clear to auscultation. No crepitation or rhonchi. ABDOMEN: Markedly distended, soft, nontender. NEUROLOGIC: The patient is awake, alert, responding appropriately. She has right-sided hemiplegia. She has an indwelling [place] catheter. LABORATORY DATA: On admission showed a white cell count of 8600, hemoglobin 9, hematocrit 27, MCV of 92, and platelet count of 327,000 with manual differential. Her chemistry showed a serum sodium 132, potassium 5.5, chloride 95, bicarbonate 29, anion gap of 8, BUN 26, creatinine 3.4, estimated GFR was 14 mL per minute, her glucose was 205, calcium was 9.5, magnesium was 1.9. Total bilirubin, AST, ALT, alkaline phosphatase were normal. Total protein 6.6, albumin 3.2 and lipase was 163. Her first set of cardiac enzyme showed troponin to be less than 0.017. Her EKG showed that she was in sinus rhythm, but no ST-segment elevation. ASSESSMENT: In summary, this is a 51-year-old female patient with multiple medical problems, who came in with chest pain and shortness of breath. Her first set of cardiac enzyme showed troponin to be less than 0.017. Her chest x-ray was unremarkable and showed that the patient's lung volumes are low with elevation of the right hemidiaphragm, right central venous catheter terminates near the cavoatrial junction, the cardiac silhouette is enlarged without significant congestion. There is no focal consolidation, pleural effusion or pneumothorax. Her EKG showed sinus rhythm without ST-segment elevation. PLAN: To do more sets of cardiac enzymes, consult the fiscal analyst as well as the auto bench mechanic. She is already on apixaban. MAGDALENA/JOSUE DR: Amairani TID: [id number]
[2021-07-28] MEDS ORDERED: DIALYSIS PATIENT. MC PRN ×2 (14:45)
[2021-07-28 15:00] VITALS: BP 108/56
--- NOTE | 2021-07-28 15:55 | NUR ---
SS following for discharge planning. SS reviewed pt chart and discussed with pt RN. Pt is LTC resident from [facility], ; fax [phone]. Pt is currently requiring oxygen at two liters nasal canula. COVID19 negative. Pt has outpatient dialysis at [facility], ; fax [phone], Tuesday, , and Tuesday. Cardiology and Nephrology following. SS met with pt and pt stating that she will not return to [facility]. Pt reported that she will return to home with ex- and two sons. Pt reported that her daughter visits the home daily and helps. Pt reported that Medicaid will arrange home care and transportation to and from dialysis. Pt's RN notified. SS will continue to follow for discharge planning.
[2021-07-28] MEDS: clonazePAM 0.5 MG TABLET PO SCH (20:11)
[2021-07-28] MEDS: HYDROmorphone 2 MG TABLET PO SCH (20:11)
[2021-07-28] MEDS: ATORVASTATIN CALCIUM 40 MG TABLET. PO SCH (20:12)
[2021-07-28] MEDS: INSULIN GLARGINE SYRINGE. SQ SCH (20:54)
[2021-07-28 22:40] VITALS: BP 87/42
[2021-07-29 03:00] VITALS: BP 81/56
[2021-07-29 07:00] VITALS: BP 95/48
[2021-07-29] MEDS: INSULIN LISPRO 300 UNITS/3 ML VIAL. SQ SCH ×3 (08:00→17:29)
[2021-07-29] MEDS: METOPROLOL SUCC 24HR ER 50 MG TAB.ER.24H. PO SCH (09:00)
[2021-07-29] MEDS: MULTIVITAMIN with MINERAL TABLET. PO SCH (09:46)
[2021-07-29] MEDS: CETIRIZINE HCL 10 MG TABLET. PO SCH (09:46)
[2021-07-29] MEDS: APIXABAN 5 MG TABLET. PO SCH ×2 (09:46→20:53)
[2021-07-29] MEDS: ASCORBIC ACID 500 MG TABLET PO SCH (09:47)
[2021-07-29] MEDS: PREGABALIN 75 MG CAPSULE PO SCH ×2 (09:47→20:53)
[2021-07-29] MEDS: FLUTICASONE 50MCG/NASAL SPRAY 16GM BOTTLE. NS SCH (09:47)
[2021-07-29] MEDS: oxyCODONE/APAP 10/325 1 TAB TABLET PO PRN ×2 (09:49→18:36)
--- NOTE | 2021-07-29 10:50 | PDOC ---
Renal-Progress Notes Subjective Notes Notes FEELING BETTER History of Present Illness Hx of present illness STABLE Vitals Vitals Vital Signs Date Time Temp Pulse Resp B/P (MAP) Pulse Ox O2 Delivery O2 Flow Rate FiO2 07/29/21 09:49 100 Nasal Cannula 4.0 07/29/21 09:00 87 95/48 07/29/21 07:00 97.3 20 97.3 Weight Weight [ ] I.O. Intake and Output Intake and Output 07/29/21 07:00 Intake Total 520 ml Output Total 250 ml Balance 270 ml Intake Oral 520 ml Output Urine Total 250 ml Labs Labs Laboratory Tests Test 07/28/21 11:51 07/28/21 15:43 07/28/21 20:16 07/29/21 07:22 Glucose (Fingerstick) 151 mg/dL (70-99) 139 mg/dL (70-99) 163 mg/dL (70-99) Hepatitis B Surface Antigen Nonreactive (Nonreactive) Micro Micro Microbiology 07/27/21 Urine Culture - Final, Complete 07/27/21 Blood Culture - Preliminary, Resulted NO GROWTH AFTER 1 DAY Review of Systems Constitutional: yes: weakness, alert, oriented Ears/Nose/Throat: Yes: no symptom reported Pulmonary: Yes dyspnea Cardiovascular: Yes edema Gastrointestional: Yes: no symptom reported Genitourinary: Yes: no symptom reported Musculoskeletal: Yes: no symptom reported Skin: Yes no symptom reported Psychiatric/Neurological: Yes: no symptom reported Endocrine: Yes: no symptom reported Physical Exam General Appearance: no apparent distress Skin: warm Respiratory: decreased breath sounds Heart: S1S2 Abdomen: soft, bowel sounds present Genitourinary: bladder flat Extremities: pulses present, edema Neurology: alert Musculoskeletal: Osteoarthritis Assessment Assessment IMP VOLUME OVERLOAD ACUTE ON CHRONIC DIASTOLIC CHF CARRINGTON - ATN-NO [id number]/VANC/CHEMO MORBID OBESITY ANASARCA S/P CHEMO AND RAD TX FOR BRAIN TUMOR PLAN PLANNED FOR HD TODAY BUT SOMEWHAT HYPOTENSIVE PLAN HD TOMORROW WILL USE HER RIGHT IJ TUNNELED HD LINE CONT EPOGEN CONT LASIX WILL NEED LTAC WILL CONT WITH SUPPORTIVE CARE CARDIOLOGY EVAL AND TX LISA ARZOLA MD Jul 29, 2021 10:50
[2021-07-29 11:00] VITALS: BP 83/42
[2021-07-29] MEDS: FUROSEMIDE 80 MG TABLET. PO SCH (11:30)
--- NOTE | 2021-07-29 11:45 | PDOC ---
CARDIO Progress Notes Date and Time Date of Service 07/29/21 Time of Evaluation 1145 Subjective Subjective: No Chest Pain, No Palpitations, Other (breathing improved) Vitals Vitals Vital Signs Date Time Temp Pulse Resp B/P (MAP) Pulse Ox O2 Delivery O2 Flow Rate FiO2 07/29/21 10:19 100 Nasal Cannula 4.0 07/29/21 09:00 87 95/48 07/29/21 07:00 97.3 20 97.3 Weight Weight [ ] Input and Output Intake and Output Intake and Output 07/29/21 07:00 Intake Total 520 ml Output Total 250 ml Balance 270 ml Intake Oral 520 ml Output Urine Total 250 ml Laboratory Labs Laboratory Tests Test 07/28/21 11:51 07/28/21 15:43 07/28/21 20:16 07/29/21 07:22 Glucose (Fingerstick) 151 mg/dL (70-99) 139 mg/dL (70-99) 163 mg/dL (70-99) Hepatitis B Surface Antigen Nonreactive (Nonreactive) Test 07/29/21 11:32 Glucose (Fingerstick) 189 mg/dL (70-99) Microbiology Micro Microbiology 07/27/21 Urine Culture - Final, Complete 07/27/21 Blood Culture - Preliminary, Resulted NO GROWTH AFTER 1 DAY Review of Systems Constitutional: yes: weakness, alert, oriented Ears/Nose/Throat: Yes: no symptom reported Pulmonary: Yes dyspnea Cardiovascular: Yes edema Gastrointestional: Yes: no symptom reported Genitourinary: Yes: no symptom reported Musculoskeletal: Yes: no symptom reported Skin: Yes no symptom reported Psychiatric/Neurological: Yes: no symptom reported Endocrine: Yes: no symptom reported Physical Exam HEENT: Neck Supple W Full Motion Chest: Symmetric LUNGS: Other (diminished bases) Heart: RRR Abdomen: Other (obese) Extremities: Other (anasarca ) Neurology: alert, oriented, follow commands Assessment Assessment 1. Chest pain, mixed features; AMI ruled out. Echo shows preserved LV systolic function 2. Mild acute on chronic diastolic CHF 2. H/o hypertension; presently low end. s/p fluid bolus 3. Hyperlipidemia; statin 4. History of a brain tumor s/p resection and recent recurrence. s/p chemo and radiation 5. Diabetes, II 6. ESRD on HD, hyperkalemia 7. H/o DVTPE; on Eliquis. 8. H/o CVA 10. KRISS with CPAP 11. Chronic [place] with UTI 12. Anasarca Recommendations Continue ASA/statin therapy Fluid offloading via HD as BP allow Hold metoprolol Start midodrine Consider albumin Probable outpatient ischemic evaluation Eliquis for PE/DVT prophylaxis Supportive care Justicifation of Admission Dx: Justifications for Admission: Justification of Admission Dx: Yes PIETRO AYOUB APRN Jul 29, 2021 11:45
[2021-07-29] MEDS ORDERED: IV NORMAL SALINE 1000ML BAG 1,000 ML IV ONE ×2 (12:00)
[2021-07-29] MEDS ORDERED: IV NORMAL SALINE 500ML BAG 500 ML IV ONE (12:15)
--- NOTE | 2021-07-29 12:16 | PN ---
DATE: 07/29/2021 SUBJECTIVE: The patient is resting almost flat in bed, in no apparent distress, awake, alert. On questioning her, she stated she is just tired. The nursing staff are concerned that her blood pressure is very low. She was dialyzed yesterday and about 4.5 L were ultrafiltrated. Recommended to give her back at least half a liter of normal saline and son talked to Dr. Fuentes. OBJECTIVE: GENERAL: When I examined her, she was pale, but no jaundice, cyanosis or thyromegaly. No jugular venous distention. No lower limb edema. VITAL SIGNS: Her heart rate was 87, blood pressure was 95/48, temperature was 97.3, respiratory rate was 20 and oxygen saturation was 100% on 4 liters of oxygen. The rest of clinical exam stable. ASSESSMENT AND PLAN: 1. Chest pain, acute myocardial infarction ruled out. 2. End-stage renal disease, on hemodialysis Tuesday, Tuesday, Tuesday. 3. Other medical problems include type 2 diabetes mellitus. 4. Morbid obesity and obstructive sleep apnea. 5. Chronic obstructive pulmonary disease/bronchial asthma. 6. Brain tumor, status post resection and chemotherapy and radiation treatment. MANUELA/NATHANAEL DR: Amairani TID: [id number]
[2021-07-29] MEDS ORDERED: PERFLUTREN PROTEIN-A MICROSPHR 0.22 MG/ML 3 ML VIAL. IV ONE ×2 (12:19→13:45)
--- NOTE | 2021-07-29 14:06 | NUR ---
SS following up with discharge planning. SS reviewed pt chart and discussed with pt RN. Pt is currently requiring oxygen at four liters nasal canula. COVID19 negative. Pt has outpatient dialysis at [facility] in [place], ; fax [phone]. Pt is LTC resident from [facility] and has expressed that she does not want to return. SS discussed with pt's spouse and pt's spouse reported that they are having a family discussion because he does not think that they can provide the care that she needs right now. Pt's spouse requested referral to [facility] in [place], ; fax [phone], for LTC placement. Pt's spouse reported that he will speak with sons and daughter and pt and will notify SS of there decision. SS discussed with Juan Pablo at [facility] and Juan Pablo reported that he will contact pt's spouse to discuss. Referral phoned and faxed to [facility]. SS will continue to follow for discharge planning.
[2021-07-29 15:00] VITALS: BP 84/57
--- NOTE | 2021-07-29 15:28 | CARD ---
MR#: [id number] Date of Study: 07/29/2021 Ordering Physician: PIETRO AYOUB, Referring Physician: PIETRO AYOUB, Tech: Polina Bass [facility] APPROVED REPORT EXAM: Two-dimensional and M-mode echocardiogram with Doppler and color Doppler. Other Information Quality : Technically LimitedHR: 86bpm Rhythm : NSR INDICATION Dyspnea RISK FACTORS Hypertension Obesity Hyperlipidemia Diabetes 2D DIMENSIONS Left Atrium(2D)4.2 (1.6-4.0cm)IVSd1.1 (0.7-1.1cm) Aortic Root(2D)3.4 (2.0-3.7cm)LVDd4.6 (3.9-5.9cm) LVOT Diameter2.2 (1.8-2.4cm)PWd1.1 (0.7-1.1cm) LVDs2.6 (2.5-4.0cm)FS (%) 44.5 % SV75.6 ml Aortic Valve AoV Peak Xavi.187.3cm/sAoV VTI34.8cm AO Peak GR.14.0mmHgLVOT Peak Xavi.146.9cm/s AO Mean GR.6mmHgAVA (VMAX)3.10cm2 Mitral Valve MV E Qxsbzabo951.1cm/sMV DECEL ZALF256hj MV A Gnwprrvv99.7cm/sE/A Ratio1.1 Pulmonary Valve PV Peak Vbqpxvxj75.8cm/s Tricuspid Valve TR P. Qtlnvpxl713ep/sTR Peak Gr.24mmHg LEFT VENTRICLE The left ventricle is normal size. There is mild concentric left ventricular hypertrophy. The left ve ntricular systolic function is normal and the ejection fraction is within normal range. Estimated ej ection fraction 55-60%. There is normal LV segmental wall motion. The left ventricular diastolic func tion and filling is normal for age. RIGHT VENTRICLE The right ventricle is normal size. The right ventricle is mildly hypertrophied. The right ventricula r systolic function is normal. ATRIA The left atrium size is normal. The right atrium size is normal. AORTIC VALVE The aortic valve is normal in structure and function. Doppler and Color Flow revealed no significant aortic regurgitation. There is no significant aortic valvular stenosis. MITRAL VALVE The mitral valve is normal in structure and function. There is no evidence of mitral valve prolapse. There is no mitral valve stenosis. Doppler and Color Flow revealed no mitral valve regurgitation note d. TRICUSPID VALVE The tricuspid valve is normal in structure and function. Doppler and Color Flow revealed trace tricus pid regurgitation. PULMONIC VALVE The pulmonary valve is normal in structure and function. Doppler and Color Flow revealed no pulmonic valvular regurgitation. GREAT VESSELS The aortic root is normal in size. The ascending aorta is normal in size. The IVC was not visualized. PERICARDIAL EFFUSION There is no evidence of significant pericardial effusion. Critical Notification Critical Value: No <Conclusion> The left ventricle is normal size. The left ventricular systolic function is normal and the ejection fraction is within normal range. Estimated ejection fraction 55-60%. There is mild concentric left ventricular hypertrophy. Doppler and Color Flow revealed no significant aortic regurgitation. There is no significant aortic valvular stenosis. Doppler and Color Flow revealed no mitral valve regurgitation noted. Doppler and Color Flow revealed trace tricuspid regurgitation. Signed by : Hector Valladares MD Electronically Approved : 07/29/2021 15:28:01
--- NOTE | 2021-07-29 15:49 | NUR ---
Wound/Ostomy Care Wound Type/Assessment: Patient seen per wound care consult. See wound assessment. 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 Wound cleansed, assessed, and measured. Patient states she is paralyzed on the right side and therefore is in bed most times. wound is red and sloughy and pale pink, patient reports significant amount of pain with this wound. Patient also stating her catheter is causing pain and irritation. Patient bedding and chux is dirty from blood/food/drainage/etc. Patient cleaned and all linens changed. Treatment Recommendations/Plan: Recommendations for Calazime cream to right ischium/coccyx/buttocks. patient is to be turned every 2 hours using wedge. Calazime applied. Patient also has yeast to bilateral breast, RN will order nystatin to be applied as directed. Education provided: Patient educated regarding wound care and PU treatment and management. Offloading surface/device: Patient turned to right side using wedge and turns very well with assist. Patient does not need P-500 bed unless she prefers the P-500 bed, but not necessary. Recommended Referrals/Tests: N/A Discharge Recommendations for dressings: Dressing change instructions left in room. No other wounds noted. Bed lowered and call light in reach. Spoke with RN regarding POC. Wound care will follow up on 08/05/21.
[2021-07-29] MEDS: MIDODRINE 2.5 MG TABLET PO SCH (16:37)
[2021-07-29 19:04] VITALS: BP 92/43
[2021-07-29] MEDS: HYDROmorphone 2 MG TABLET PO SCH (20:52)
[2021-07-29] MEDS: ATORVASTATIN CALCIUM 40 MG TABLET. PO SCH (20:53)
[2021-07-29] MEDS: clonazePAM 0.5 MG TABLET PO SCH (20:53)
[2021-07-29] MEDS: NYSTATIN TOPICAL POWDER 15GM BOTTLE. TP SCH (20:54)
[2021-07-29] MEDS: INSULIN GLARGINE SYRINGE. SQ SCH (20:55)
[2021-07-29 22:15] VITALS: BP 88/52
[2021-07-30 03:02] VITALS: BP 87/47
[2021-07-30 06:22] VITALS: BP 113/64
[2021-07-30] MEDS: MIDODRINE 2.5 MG TABLET PO SCH ×3 (06:27→17:44)
[2021-07-30] MEDS: oxyCODONE/APAP 10/325 1 TAB TABLET PO PRN ×3 (08:37→17:44)
[2021-07-30] MEDS: MULTIVITAMIN with MINERAL TABLET. PO SCH (08:37)
[2021-07-30] MEDS: CETIRIZINE HCL 10 MG TABLET. PO SCH (08:37)
[2021-07-30] MEDS: APIXABAN 5 MG TABLET. PO SCH ×2 (08:37→22:07)
[2021-07-30] MEDS: ASCORBIC ACID 500 MG TABLET PO SCH (08:37)
[2021-07-30] MEDS: FUROSEMIDE 80 MG TABLET. PO SCH (08:38)
[2021-07-30] MEDS: PREGABALIN 75 MG CAPSULE PO SCH ×2 (08:38→22:07)
[2021-07-30] MEDS: NYSTATIN TOPICAL POWDER 15GM BOTTLE. TP SCH ×2 (08:39→22:20)
[2021-07-30] MEDS: FLUTICASONE 50MCG/NASAL SPRAY 16GM BOTTLE. NS SCH (08:39)
[2021-07-30] MEDS: INSULIN LISPRO 300 UNITS/3 ML VIAL. SQ SCH ×3 (08:46→17:49)
[2021-07-30] MEDS ORDERED: DIALYSIS PATIENT. MC PRN ×2 (10:15)
[2021-07-30] MEDS ORDERED: ALBUMIN HUMAN 25% 200 ML IV PRN (10:15)
--- NOTE | 2021-07-30 10:49 | PDOC ---
Renal-Progress Notes Subjective Notes Notes FEELING BETTER History of Present Illness Hx of present illness STABLE Vitals Vitals Vital Signs Date Time Temp Pulse Resp B/P (MAP) Pulse Ox O2 Delivery O2 Flow Rate FiO2 07/30/21 09:07 100 Nasal Cannula 4.0 07/30/21 06:27 87 110/64 07/30/21 06:22 97.9 16 97.9 Weight Weight [ ] I.O. Intake and Output Intake and Output 07/30/21 07:00 Intake Total 1300 ml Output Total 100 ml Balance 1200 ml Intake Oral 1300 ml Output Urine Total 100 ml Labs Labs Laboratory Tests Test 07/29/21 11:32 07/29/21 16:55 07/29/21 20:54 07/30/21 07:40 Glucose (Fingerstick) 189 mg/dL (70-99) 188 mg/dL (70-99) 214 mg/dL (70-99) White Blood Count 7.1 x10^3/uL (4.0-11.0) Red Blood Count 5.01 x10^6/uL (3.50-5.40) Hemoglobin 15.4 g/dL (12.0-15.5) Hematocrit 46.0 % (36.0-47.0) Mean Corpuscular Volume 92 fL (79-100) Mean Corpuscular Hemoglobin 31 pg (25-35) Mean Corpuscular Hemoglobin Concent 33 g/dL (31-37) Red Cell Distribution Width 14.6 % (11.5-14.5) Platelet Count 203 x10^3/uL (140-400) Neutrophils (%) (Auto) 84 % (31-73) Lymphocytes (%) (Auto) 14 % (24-48) Monocytes (%) (Auto) 1 % (0-9) Eosinophils (%) (Auto) 0 % (0-3) Basophils (%) (Auto) 0 % (0-3) Neutrophils # (Auto) 6.0 x10^3/uL (1.8-7.7) Lymphocytes # (Auto) 1.0 x10^3/uL (1.0-4.8) Monocytes # (Auto) 0.1 x10^3/uL (0.0-1.1) Eosinophils # (Auto) 0.0 x10^3/uL (0.0-0.7) Basophils # (Auto) 0.0 x10^3/uL (0.0-0.2) Erythrocyte Sedimentation Rate 20 (0-25) Sodium Level 144 mmol/L (136-145) Potassium Level 3.6 mmol/L (3.5-5.1) Chloride Level 109 mmol/L (98-107) Carbon Dioxide Level 26 mmol/L (21-32) Anion Gap 9 (6-14) Blood Urea Nitrogen 11 mg/dL (7-20) Creatinine 0.8 mg/dL (0.6-1.0) Estimated GFR (Cockcroft-Gault) 76.2 BUN/Creatinine Ratio 14 (6-20) Glucose Level 126 mg/dL (70-99) Lactic Acid Level 0.9 mmol/L (0.4-2.0) Calcium Level 9.0 mg/dL (8.5-10.1) Total Bilirubin 0.4 mg/dL (0.2-1.0) Aspartate Amino Transf (AST/SGOT) 44 U/L (15-37) Alanine Aminotransferase (ALT/SGPT) 52 U/L (14-59) Alkaline Phosphatase 113 U/L (46-116) C-Reactive Protein, Quantitative 1.5 mg/L (0-3.3) Total Protein 7.6 g/dL (6.4-8.2) Albumin 3.6 g/dL (3.4-5.0) Albumin/Globulin Ratio 0.9 (1.0-1.7) Procalcitonin < 0.10 ng/mL (0.00-0.10) Test 07/30/21 08:24 Glucose (Fingerstick) 171 mg/dL (70-99) Micro Micro Microbiology 07/27/21 Urine Culture - Final, Complete 07/27/21 Blood Culture - Preliminary, Resulted NO GROWTH AFTER 2 DAYS Review of Systems Constitutional: yes: weakness, alert, oriented Ears/Nose/Throat: Yes: no symptom reported Pulmonary: Yes dyspnea Cardiovascular: Yes edema Gastrointestional: Yes: no symptom reported Genitourinary: Yes: no symptom reported Musculoskeletal: Yes: no symptom reported Skin: Yes no symptom reported Psychiatric/Neurological: Yes: no symptom reported Endocrine: Yes: no symptom reported Physical Exam General Appearance: no apparent distress Skin: warm Respiratory: decreased breath sounds Heart: S1S2 Abdomen: soft, bowel sounds present Genitourinary: bladder flat Extremities: pulses present, edema Neurology: alert, oriented, follow commands Musculoskeletal: Osteoarthritis Assessment Assessment IMP VOLUME OVERLOAD ACUTE ON CHRONIC DIASTOLIC CHF CARRINGTON - ATN-NO [id number]-EUMVOP/VANC/CHEMO MORBID OBESITY ANASARCA S/P CHEMO AND RAD TX FOR BRAIN TUMOR PLAN HD TODAY EXTRA ATTEMPT TO UF ABOUT 4.0 OR MORE IF TOLERATED WILL USE HER RIGHT IJ TUNNELED HD LINE CONT EPOGEN CONT LASIX WILL NEED LTAC WILL CONT WITH SUPPORTIVE CARE CARDIOLOGY EVAL AND TX LISA ARZOLA MD Jul 30, 2021 10:49
[2021-07-30 11:20] VITALS: BP 96/50
--- NOTE | 2021-07-30 11:42 | PDOC ---
PIETRO AYOUB COFFEE ATTENDANT 07/30/21 1142: CARDIO Progress Notes Date and Time Date of Service 07/30/21 Time of Evaluation 1140 Subjective Subjective: No Chest Pain, No Palpitations, Other (breathing improved) Vitals Vitals Vital Signs Date Time Temp Pulse Resp B/P (MAP) Pulse Ox O2 Delivery O2 Flow Rate FiO2 07/30/21 11:20 98.1 85 18 96/50 (65) 99 Nasal Cannula 4.0 98.1 Weight Weight [ ] Input and Output Intake and Output Intake and Output 07/30/21 07:00 Intake Total 1300 ml Output Total 100 ml Balance 1200 ml Intake Oral 1300 ml Output Urine Total 100 ml Laboratory Labs Laboratory Tests Test 07/29/21 16:55 07/29/21 20:54 07/30/21 07:40 07/30/21 08:24 Glucose (Fingerstick) 188 mg/dL (70-99) 214 mg/dL (70-99) 171 mg/dL (70-99) White Blood Count 7.1 x10^3/uL (4.0-11.0) Red Blood Count 5.01 x10^6/uL (3.50-5.40) Hemoglobin 15.4 g/dL (12.0-15.5) Hematocrit 46.0 % (36.0-47.0) Mean Corpuscular Volume 92 fL (79-100) Mean Corpuscular Hemoglobin 31 pg (25-35) Mean Corpuscular Hemoglobin Concent 33 g/dL (31-37) Red Cell Distribution Width 14.6 % (11.5-14.5) Platelet Count 203 x10^3/uL (140-400) Neutrophils (%) (Auto) 84 % (31-73) Lymphocytes (%) (Auto) 14 % (24-48) Monocytes (%) (Auto) 1 % (0-9) Eosinophils (%) (Auto) 0 % (0-3) Basophils (%) (Auto) 0 % (0-3) Neutrophils # (Auto) 6.0 x10^3/uL (1.8-7.7) Lymphocytes # (Auto) 1.0 x10^3/uL (1.0-4.8) Monocytes # (Auto) 0.1 x10^3/uL (0.0-1.1) Eosinophils # (Auto) 0.0 x10^3/uL (0.0-0.7) Basophils # (Auto) 0.0 x10^3/uL (0.0-0.2) Erythrocyte Sedimentation Rate 20 (0-25) Sodium Level 144 mmol/L (136-145) Potassium Level 3.6 mmol/L (3.5-5.1) Chloride Level 109 mmol/L (98-107) Carbon Dioxide Level 26 mmol/L (21-32) Anion Gap 9 (6-14) Blood Urea Nitrogen 11 mg/dL (7-20) Creatinine 0.8 mg/dL (0.6-1.0) Estimated GFR (Cockcroft-Gault) 76.2 BUN/Creatinine Ratio 14 (6-20) Glucose Level 126 mg/dL (70-99) Lactic Acid Level 0.9 mmol/L (0.4-2.0) Calcium Level 9.0 mg/dL (8.5-10.1) Total Bilirubin 0.4 mg/dL (0.2-1.0) Aspartate Amino Transf (AST/SGOT) 44 U/L (15-37) Alanine Aminotransferase (ALT/SGPT) 52 U/L (14-59) Alkaline Phosphatase 113 U/L (46-116) C-Reactive Protein, Quantitative 1.5 mg/L (0-3.3) Total Protein 7.6 g/dL (6.4-8.2) Albumin 3.6 g/dL (3.4-5.0) Albumin/Globulin Ratio 0.9 (1.0-1.7) Procalcitonin < 0.10 ng/mL (0.00-0.10) Microbiology Micro Microbiology 07/27/21 Urine Culture - Final, Complete 07/27/21 Blood Culture - Preliminary, Resulted NO GROWTH AFTER 2 DAYS Review of Systems Constitutional: yes: weakness, alert, oriented Ears/Nose/Throat: Yes: no symptom reported Pulmonary: Yes dyspnea Cardiovascular: Yes edema Gastrointestional: Yes: no symptom reported Genitourinary: Yes: no symptom reported Musculoskeletal: Yes: no symptom reported Skin: Yes no symptom reported Psychiatric/Neurological: Yes: no symptom reported Endocrine: Yes: no symptom reported Physical Exam HEENT: Neck Supple W Full Motion Chest: Symmetric LUNGS: Other (diminished bases) Heart: RRR Abdomen: Other (obese) Extremities: Other (anasarca ) Neurology: alert, oriented, follow commands Assessment Assessment 1. Chest pain, mixed features; AMI ruled out. Echo shows preserved LV systolic function 2. Mild acute on chronic diastolic CHF; better compensated with fluid offloading 2. H/o hypertension; presently low end. metoprolol discontinued. 3. Hyperlipidemia; statin 4. History of a brain tumor s/p resection and recent recurrence. s/p chemo and radiation 5. Diabetes, II 6. ESRD on HD, hyperkalemia 7. H/o DVTPE; on Eliquis. 8. H/o CVA 10. KRISS with CPAP 11. Chronic [place] 12. Anasarca Recommendations Continue ASA/statin therapy Fluid offloading via HD as BP allow Continue midodrine Probable outpatient ischemic evaluation Eliquis for PE/DVT prophylaxis Supportive care Justicifation of Admission Dx: Justifications for Admission: Justification of Admission Dx: Yes ALL WALKER MD 07/30/21 1623: CARDIO Progress Notes Assessment Assessment Patient seen and evaluated. I agree with our nurse practitioners assessment and plan. Chest pain, mixed features; AMI ruled out. Echo shows preserved LV systolic function. Continuing medical treatment. Outpatient follow-up. Mild acute on chronic diastolic CHF; better compensated with fluid offloading H/o hypertension; presently low end. metoprolol discontinued. Hyperlipidemia; statin History of a brain tumor s/p resection and recent recurrence. s/p chemo and radiation Diabetes, II ESRD on HD, hyperkalemia H/o DVTPE; on Eliquis. H/o CVA KRISS with CPAP PIETRO AYOUB APRN Jul 30, 2021 11:42 ALL WALKER MD Jul 30, 2021 16:23
[2021-07-30 12:49] LABS: BASO % 1 % (0-3); EOS # 0.2 x10^3/uL (0.0-0.7); EOS % 2 % (0-3); HEMATOCRIT 23.9 % (36.0-47.0); LYMPH # 1.6 x10^3/uL (1.0-4.8); LYMPH % 23 % (24-48); MEAN CORPUSCULAR HEMOGLOBIN 31 pg (25-35); MEAN CORPUSCULAR HGB CONC 33 g/dL (31-37); MEAN CORPUSCULAR VOLUME 92 fL (79-100); MONO # 0.9 x10^3/uL (0.0-1.1); MONO % 13 % (0-9); NEUT # 4.2 x10^3/uL (1.8-7.7); NEUT % 61 % (31-73); PLATELET COUNT 258 x10^3/uL (140-400); RED BLOOD COUNT 2.59 x10^6/uL (3.50-5.40); RED CELL DISTRIBUTION WIDTH 16.2 % (11.5-14.5)
[2021-07-30 13:09] LABS: CALCIUM 9.4 mg/dL (8.5-10.1); CREATININE 2.9 mg/dL (0.6-1.0); GFR 17.2; POTASSIUM 4.6 mmol/L (3.5-5.1)
--- NOTE | 2021-07-30 15:26 | NUR ---
SS following up with discharge planning. SS reviewed pt chart and discussed with pt RN. Pt is currently requiring oxygen at four liters nasal canula. COVID19 negative. Pt has outpatient dialysis at [facility] in [place], ; fax [phone]. Pt is LTC resident from [facility] and has expressed that she does not want to return. SS discussed with pt's spouse and pt's spouse reported that they had a family discussion and although pt wants to return to home they do not feel that it would be safe. Pt's spouse reported that he spoke with Juan Pablo at [facility] in [place] and no beds are available at this time. Pt's spouse reported that he drove by [facility] in [place], [place] but was not impressed. Pt's spouse requesting referral to [facility] at this time. SS phoned and faxed referral as requested. SS will continue to follow for discharge planning.
--- NOTE | 2021-07-30 17:14 | PN ---
DATE: 07/30/2021 SUBJECTIVE: The patient is resting, slightly propped up in bed, in no apparent distress. On questioning her, she denied any complaint. Nursing staff did not voice any concern. She has lab work that seems to be not hers as her kidney function seemed to have normalized and her hemoglobin has risen from 9 to 15 indicating that these are not her lab work. The plan is for them to be repeated again. She is scheduled for hemodialysis this morning. PHYSICAL EXAMINATION: GENERAL: When I examined her, she looked pale, but no jaundice, cyanosis or thyromegaly. No jugular venous distention. No limb edema. VITAL SIGNS: Her heart rate was 83, blood pressure was 113/64, temperature 97.9, respiratory rate was 16 and oxygen saturation was 100% on 4 liters of oxygen. The rest of clinical exam stable. LABORATORY DATA: Definitely not hers. ASSESSMENT: 1. Chest pain, acute myocardial infarction was ruled out. 2. End-stage renal disease, on hemodialysis Tuesday, Tuesday, Tuesday. 3. Other medical problems include: A. Type 2 diabetes mellitus. B. Morbid obesity and obstructive sleep apnea. C. Chronic obstructive pulmonary disease/bronchial asthma. D. Brain tumor, status post resection, chemotherapy and radiation treatment. PLAN: To continue with hemodialysis. Apparently, her family was not able to take care of her at home and the plan is to continue working on [place] [facility] [place] [facility] NARCISO/VICENTE DR: Amairani TID: [id number]
[2021-07-30 19:21] VITALS: BP 137/75
[2021-07-30] MEDS: ATORVASTATIN CALCIUM 40 MG TABLET. PO SCH (22:08)
[2021-07-30] MEDS: clonazePAM 0.5 MG TABLET PO SCH (22:08)
[2021-07-30] MEDS: HYDROmorphone 2 MG TABLET PO SCH (22:08)
[2021-07-30] MEDS: INSULIN GLARGINE SYRINGE. SQ SCH (22:16)
[2021-07-30 22:45] VITALS: BP 111/71
[2021-07-31] MEDS: oxyCODONE/APAP 10/325 1 TAB TABLET PO PRN ×4 (02:21→16:21)
[2021-07-31 03:04] VITALS: BP 118/65
[2021-07-31 05:27] LABS: CALCIUM 9.3 mg/dL (8.5-10.1); CREATININE 2.1 mg/dL (0.6-1.0); POTASSIUM 3.8 mmol/L (3.5-5.1)
[2021-07-31 07:52] VITALS: BP 112/56
[2021-07-31] MEDS: FLUTICASONE 50MCG/NASAL SPRAY 16GM BOTTLE. NS SCH (08:33)
[2021-07-31] MEDS: INSULIN LISPRO 300 UNITS/3 ML VIAL. SQ SCH ×3 (08:33→16:34)
[2021-07-31] MEDS: NYSTATIN TOPICAL POWDER 15GM BOTTLE. TP SCH (08:33)
[2021-07-31] MEDS: FUROSEMIDE 80 MG TABLET. PO SCH (08:40)
[2021-07-31] MEDS: CETIRIZINE HCL 10 MG TABLET. PO SCH (08:40)
[2021-07-31] MEDS: PREGABALIN 75 MG CAPSULE PO SCH (08:41)
[2021-07-31] MEDS: ASCORBIC ACID 500 MG TABLET PO SCH (08:41)
[2021-07-31] MEDS: MULTIVITAMIN with MINERAL TABLET. PO SCH (08:41)
[2021-07-31] MEDS: MIDODRINE 2.5 MG TABLET PO SCH ×3 (08:41→16:22)
[2021-07-31 10:39] VITALS: BP 116/67
--- NOTE | 2021-07-31 10:42 | PDOC ---
Renal-Progress Notes Subjective Notes Notes FEELING BETTER, NO NEW COMPLAINTS History of Present Illness Hx of present illness STABLE Vitals Vitals Vital Signs Date Time Temp Pulse Resp B/P (MAP) Pulse Ox O2 Delivery O2 Flow Rate FiO2 07/31/21 10:39 97.8 86 18 116/67 (83) 100 Nasal Cannula 4.0 97.8 Weight Weight [ ] I.O. Intake and Output Intake and Output 07/31/21 07:00 Intake Total 1200 ml Output Total 500 ml Balance 700 ml Intake Oral 1200 ml Output Urine Total 500 ml # Bowel Movements 1 Labs Labs Laboratory Tests Test 07/30/21 11:54 07/30/21 12:28 07/30/21 17:18 07/30/21 20:21 Glucose (Fingerstick) 168 mg/dL (70-99) 119 mg/dL (70-99) 191 mg/dL (70-99) White Blood Count 7.0 x10^3/uL (4.0-11.0) Red Blood Count 2.59 x10^6/uL (3.50-5.40) Hemoglobin 8.0 g/dL (12.0-15.5) Hematocrit 23.9 % (36.0-47.0) Mean Corpuscular Volume 92 fL (79-100) Mean Corpuscular Hemoglobin 31 pg (25-35) Mean Corpuscular Hemoglobin Concent 33 g/dL (31-37) Red Cell Distribution Width 16.2 % (11.5-14.5) Platelet Count 258 x10^3/uL (140-400) Neutrophils (%) (Auto) 61 % (31-73) Lymphocytes (%) (Auto) 23 % (24-48) Monocytes (%) (Auto) 13 % (0-9) Eosinophils (%) (Auto) 2 % (0-3) Basophils (%) (Auto) 1 % (0-3) Neutrophils # (Auto) 4.2 x10^3/uL (1.8-7.7) Lymphocytes # (Auto) 1.6 x10^3/uL (1.0-4.8) Monocytes # (Auto) 0.9 x10^3/uL (0.0-1.1) Eosinophils # (Auto) 0.2 x10^3/uL (0.0-0.7) Basophils # (Auto) 0.0 x10^3/uL (0.0-0.2) Sodium Level 131 mmol/L (136-145) Potassium Level 4.6 mmol/L (3.5-5.1) Chloride Level 96 mmol/L (98-107) Carbon Dioxide Level 29 mmol/L (21-32) Anion Gap 6 (6-14) Blood Urea Nitrogen 30 mg/dL (7-20) Creatinine 2.9 mg/dL (0.6-1.0) Estimated GFR (Cockcroft-Gault) 17.2 Glucose Level 183 mg/dL (70-99) Calcium Level 9.4 mg/dL (8.5-10.1) Test 07/31/21 04:30 07/31/21 08:00 Sodium Level 136 mmol/L (136-145) Potassium Level 3.8 mmol/L (3.5-5.1) Chloride Level 99 mmol/L (98-107) Carbon Dioxide Level 32 mmol/L (21-32) Anion Gap 5 (6-14) Blood Urea Nitrogen 16 mg/dL (7-20) Creatinine 2.1 mg/dL (0.6-1.0) Estimated GFR (Cockcroft-Gault) 25.0 Glucose Level 169 mg/dL (70-99) Calcium Level 9.3 mg/dL (8.5-10.1) Glucose (Fingerstick) 152 mg/dL (70-99) Micro Micro Microbiology 07/27/21 Urine Culture - Final, Complete 07/27/21 Blood Culture - Preliminary, Resulted NO GROWTH AFTER 3 DAYS Review of Systems Constitutional: yes: weakness, alert, oriented Ears/Nose/Throat: Yes: no symptom reported Pulmonary: Yes dyspnea Cardiovascular: Yes edema Gastrointestional: Yes: no symptom reported Genitourinary: Yes: no symptom reported Musculoskeletal: Yes: no symptom reported Skin: Yes no symptom reported Psychiatric/Neurological: Yes: no symptom reported Endocrine: Yes: no symptom reported Physical Exam General Appearance: no apparent distress Skin: warm Respiratory: decreased breath sounds Heart: S1S2 Abdomen: soft, bowel sounds present Genitourinary: bladder flat Extremities: pulses present, edema Neurology: alert, oriented, follow commands Musculoskeletal: Osteoarthritis Assessment Assessment IMP VOLUME OVERLOAD ACUTE ON CHRONIC DIASTOLIC CHF CARR[place] - ATN-NO [id number]-YLBHMT/VANC/CHEMO-OP HD TTS MORBID OBESITY ANASARCA S/P CHEMO AND RAD TX FOR BRAIN TUMOR PLAN HD TODAY ATTEMPT TO UF ABOUT 4.0 OR MORE IF TOLERATED WILL NEED SPA PRE DIALYSIS CONT EPOGEN CONT LASIX WILL NEED LTAC WILL CONT WITH SUPPORTIVE CARE CARDIOLOGY EVAL AND TX LISA ARZOLA MD Jul 31, 2021 10:42
[2021-07-31] MEDS ORDERED: PREG150C PO ×2 (11:46→12:00)
[2021-07-31] MEDS ORDERED: CLONAZEPAM1 MG PO ×2 (11:46→12:00)
[2021-07-31] MEDS ORDERED: OXYC1TAB22 PO ×2 (11:46→12:00)
[2021-07-31] MEDS ORDERED: TRAM50TA PO ×2 (11:46→12:00)
--- NOTE | 2021-07-31 11:50 | SNU/HH DC ---
DISCHARGE ORDERS DISCHARGE INFORMATION: DISCHARGE DATE: Jul 31, 2021 FINAL DIAGNOSIS Problems Medical Problems: (1) Chest pain Status: Acute CONDITION ON DISCHARGE: Stable CODE STATUS: Code Status: Full CUSTODIAL: SNF STAY <30 DAYS: No POST DISCHARGE ORDERS: ACTIVITY ORDERS: Resume previous activity WEIGHT BEARING STATUS: As tolerated BATHING ORDERS: Shower-keep dressing dry, No Tub Bath until see DIET AFTER DISCHARGE: Renal WOUND/INCISION CARE: Other, see below CHECKS AFTER DISCHARGE: CHECKS AFTER DISCHARGE: Check blood press - daily, Check blood sugar, ac/hs, Check your Temp as needed TREATMENT/EQUIPMENT ORDERS: ADAPTIVE EQUIPMENT NEEDED: None RESPIRATORY EQUIPMENT NEEDED: Oxygen DISCHARGE MEDICATIONS: Home Meds Active Scripts Multivits,Ca,Minerals/Iron/Fa (THERA-M TABLET) 1 Each Tablet, 1 TAB PO DAILY for crf for 30 Days, #30 TAB Prov:ARMANDO ORNELAS MD 06/10/21 Insulin Lispro (Admelog) 100 Unit/1 Ml Vial, 8 UNITS SQ TIDWMEALS for DIABETES for 30 Days, #2 EACH Prov:LUANNE OWUSU MD 01/15/21 Reported Medications Ondansetron Hcl (ONDANSETRON HCL) 4 Mg Tablet, 1 TAB PO PRN Q6HRS, #10 TAB 1 Refill 07/27/21 Atorvastatin Calcium (ATORVASTATIN CALCIUM) 40 Mg Tablet, 80 MG PO HS for FOR CHOLESTEROL, #30 TAB 0 Refills 07/27/21 Ascorbic Acid (VITAMIN C) 100 Mg Tablet, 1 TAB PO DAILY for 30 Days, #30 TAB 0 Refills 07/27/21 Tramadol Hcl (TRAMADOL HCL) 50 Mg Tablet, 50 MG PO PRN Q6HRS PRN for PAIN, TAB 03/19/21 Oxycodone/Apap 10-325 (PERCOCET 10-325 MG TABLET ) 1 Each Tablet, 1 TAB PO Q4HRS PRN for PAIN, TAB 0 Refills 03/19/21 Albuterol Sulfate (Proair Respiclick) 90 Mcg Aer.pow.ba, 2 PUFF IH PRN Q4-6HRS PRN for shortness of breath, #1 INHALER 0 Refills 03/19/21 Metoprolol Succinate (Toprol XL) 50 Mg Tab.er.24h, 150 MG PO DAILY for FOR HYPERTENSION, TAB.SR 03/19/21 Insulin Detemir (LEVEMIR) 100 Unit/1 Ml Vial, 34 UNIT SQ HS for DM, EACH 02/03/21 Clonazepam (KLONOPIN) 1 Mg Tablet, 1 TAB PO HS for anxiety , #90 TAB 1 Refill 01/10/21 Apixaban (ELIQUIS) 5 Mg Tablet, 5 MG PO BID for blood thinner , TAB 01/10/21 Pregabalin (LYRICA) 150 Mg Capsule, 1 CAP PO TID for PAIN, #60 CAP 5 Refills 10/19/19 Fluticasone Propionate (FLUTICASONE PROPIONATE NASAL SPRAY) 16 Gm Gordon.susp, 2 SPRAY NS DAILY, #1 INHALER 11 Refills 11/25/17 Cetirizine Hcl (ZYRTEC) 10 Mg Tablet, 1 TAB PO DAILY for allergies, #30 TAB 5 Refills 07/28/14 Discontinued Reported Medications Dexamethasone (DEXAMETHASONE) 4 Mg Tablet, 4 TAB PO BID for inflammation, #8 TAB 03/19/21 Imatinib Mesylate (GLEEVEC) 400 Mg Tablet, 400 MG PO HS for chemotherapy agent , TAB 01/10/21 Rosuvastatin Calcium (CRESTOR) 40 Mg Tablet, 0.5 TAB PO DAILY for HLD, #30 TAB 5 Refills 10/19/19 Ondansetron Hcl (ONDANSETRON HCL) 4 Mg Tablet, 2 TAB PO PRN Q8HRS PRN for NAUSEA/VOMITING, #10 TAB 1 Refill 11/25/17 Sucralfate (CARAFATE) 1 Gm Tablet, 1 TAB PO TID for acid reflux , #120 TAB 3 Refills Meds not given this hospital admission. May resume home medications as approved by Physician. MAY TAKE WHEN AVAILABLE 05/05/17 Discontinued Scripts Levofloxacin (LEVOFLOXACIN) 500 Mg Tablet, 500 MG PO Q48H for infection, #4 TAB Prov:ARMANDO ORNELAS MD 06/10/21 KENROY TAFOYA MD Jul 31, 2021 11:50
[2021-07-31] MEDS: APIXABAN 5 MG TABLET. PO SCH (12:11)
--- NOTE | 2021-07-31 13:00 | PDOC ---
ANN MACHADO DEPUTY FIRE MARSHAL 07/31/21 1300: CARDIO Progress Notes Date and Time Date of Service 07/31/2021 Time of Evaluation 1245 Subjective Subjective: No Chest Pain, No shortness of breath, No Palpitations Vitals Vitals Vital Signs Date Time Temp Pulse Resp B/P (MAP) Pulse Ox O2 Delivery O2 Flow Rate FiO2 07/31/21 12:11 18 Nasal Cannula 07/31/21 12:08 86 116/67 07/31/21 10:39 97.8 100 4.0 97.8 Weight Weight [ ] Input and Output Intake and Output Intake and Output 07/31/21 07:00 Intake Total 1200 ml Output Total 500 ml Balance 700 ml Intake Oral 1200 ml Output Urine Total 500 ml # Bowel Movements 1 Laboratory Labs Laboratory Tests Test 07/30/21 17:18 07/30/21 20:21 07/31/21 04:30 07/31/21 08:00 Glucose (Fingerstick) 119 mg/dL (70-99) 191 mg/dL (70-99) 152 mg/dL (70-99) Sodium Level 136 mmol/L (136-145) Potassium Level 3.8 mmol/L (3.5-5.1) Chloride Level 99 mmol/L (98-107) Carbon Dioxide Level 32 mmol/L (21-32) Anion Gap 5 (6-14) Blood Urea Nitrogen 16 mg/dL (7-20) Creatinine 2.1 mg/dL (0.6-1.0) Estimated GFR (Cockcroft-Gault) 25.0 Glucose Level 169 mg/dL (70-99) Calcium Level 9.3 mg/dL (8.5-10.1) Test 07/31/21 11:22 Glucose (Fingerstick) 218 mg/dL (70-99) Microbiology Micro Microbiology 07/27/21 Urine Culture - Final, Complete 07/27/21 Blood Culture - Preliminary, Resulted NO GROWTH AFTER 3 DAYS Review of Systems Constitutional: yes: weakness, alert, oriented Ears/Nose/Throat: Yes: no symptom reported Pulmonary: Yes dyspnea Cardiovascular: Yes edema Gastrointestional: Yes: no symptom reported Genitourinary: Yes: no symptom reported Musculoskeletal: Yes: no symptom reported Skin: Yes no symptom reported Psychiatric/Neurological: Yes: no symptom reported Endocrine: Yes: no symptom reported Physical Exam HEENT: Neck Supple W Full Motion Chest: Symmetric LUNGS: Other (diminished bases) Heart: RRR (SR no ectopies) Abdomen: Other (obese) Extremities: Other (anasarca ) Neurology: alert, oriented, follow commands Assessment Assessment 1. Chest pain, mixed features; AMI ruled out. Echo shows preserved LV systolic function 2. Mild acute on chronic diastolic CHF; better compensated with fluid offloading 2. H/o hypertension; presently low end. metoprolol discontinued. 3. Hyperlipidemia; statin 4. History of a brain tumor s/p resection and recent recurrence. s/p chemo and radiation 5. Diabetes, II 6. ESRD on HD, hyperkalemia 7. H/o DVTPE; on Eliquis. 8. H/o CVA 10. KRISS with CPAP 11. Chronic [place] 12. Anasarca Recommendations Continue ASA/statin therapy Fluid offloading via HD as BP allow Continue midodrine Probable outpatient ischemic evaluation. Follow up with Dr. Ozzy Nicholas for PE/DVT prophylaxis Supportive care Justicifation of Admission Dx: Justifications for Admission: Justification of Admission Dx: Yes ALL WALKER MD 07/31/21 1625: CARDIO Progress Notes Assessment Assessment Patient seen and evaluated. I agree with our nurse practitioner assessment and plan Chest pain, mixed features; AMI ruled out. Echo shows preserved LV systolic function. Feeling better. Mild acute on chronic diastolic CHF; better compensated with fluid offloading H/o hypertension; metoprolol discontinued. Hyperlipidemia; statin History of a brain tumor s/p resection and recent recurrence. s/p chemo and radiation Diabetes, II ESRD on HD, hyperkalemia H/o DVTPE; on Eliquis. H/o CVA KRISS with CPAP ANN MACHADO APRN Jul 31, 2021 13:00 ALL WALKER MD Jul 31, 2021 16:25
--- NOTE | 2021-07-31 14:08 | NUR ---
SS following up with discharge planning. SS reviewed pt chart and discussed with pt RN. Pt is currently requiring oxygen at four liters nasal canula. COVID19 negative. Pt has outpatient dialysis at [facility] in [place], ; fax [phone]. Rona reported that they are on a bed hold at this time. Discharge orders received. SS discussed with pt and pt's spouse. Pt's spouse reported that he is unable to care for pt at home at this time and is agreeable to return to [facility], ; fax [phone], until bed at other facility can be found. Discharge orders phoned and faxed to [facility]. SS discussed with Shaka at [facility] to provide stretcher transportation. [facility] to contact SS with transport time. Pt's RN notified. SS will continue to follow for discharge planning. Addendum: 07/31/21 at 1534 by ELIZABETH MAC SS Pt will discharge and return to [facility] between 1700 and 1730. Pt, pt's RN, and pt's spouse notified.
[2021-07-31 14:26] VITALS: BP 98/59
[2021-07-31 16:22] VITALS: BP 98/59
--- NOTE | 2021-07-31 19:00 | NUR ---
Discharge Note: ANKIT MCGREGOR Discharge instructions and discharge home medications reviewed with [facility] and a copy given. All questions have been answered and understanding verbalized. All belongings taken with patient. Discontinued lines and drains: Peripheral IV intact. Patient discharged to [facility] with Self via Stretcher
== END 2021-07-31 19:00 | disposition still patient (30) | DRG 291 ==
LOC: ER 15:23 → ED HOLD 17:30 → OBSVTOIN 17:30 → 6 SOUTH 18:39
PROVIDERS: ADMIT Internal Medicine; ATTEND Internal Medicine
PROC: 5A09357 Assistance with Respiratory Ventilation, Less than 24 Consecutive Hours, Continuous Positive Airway Pressure (ICD-10-PCS; principal; 2021-07-28)
PROC: 5A1D70Z Performance of Urinary Filtration, Intermittent, Less than 6 Hours Per Day (ICD-10-PCS; 2021-07-30)
DX: I13.2 Hypertensive heart and chronic kidney disease with heart failure and with stage 5 chronic kidney disease, or end stage renal disease (principal); I50.33 Acute on chronic diastolic (congestive) heart failure; N18.6 End stage renal disease; N17.0 Acute kidney failure with tubular necrosis; N39.0 Urinary tract infection, site not specified; E87.1 Hypo-osmolality and hyponatremia; Z68.43 Body mass index [BMI] 50.0-59.9, adult; Z99.2 Dependence on renal dialysis; E11.22 Type 2 diabetes mellitus with diabetic chronic kidney disease; J44.9 Chronic obstructive pulmonary disease, unspecified; E66.01 Morbid (severe) obesity due to excess calories; G47.33 Obstructive sleep apnea (adult) (pediatric); F41.9 Anxiety disorder, unspecified; F32.9 Major depressive disorder, single episode, unspecified; K21.9 Gastro-esophageal reflux disease without esophagitis; G89.29 Other chronic pain; M19.90 Unspecified osteoarthritis, unspecified site; E78.5 Hyperlipidemia, unspecified; D64.9 Anemia, unspecified; E87.5 Hyperkalemia; D49.6 Neoplasm of unspecified behavior of brain; I25.10 Atherosclerotic heart disease of native coronary artery without angina pectoris; Z20.822 Contact with and (suspected) exposure to COVID-19; Z85.841 Personal history of malignant neoplasm of brain; Z85.6 Personal history of leukemia; Z90.49 Acquired absence of other specified parts of digestive tract; Z92.3 Personal history of irradiation; Z92.21 Personal history of antineoplastic chemotherapy; Z90.710 Acquired absence of both cervix and uterus; Z87.891 Personal history of nicotine dependence; Z86.73 Personal history of transient ischemic attack (TIA), and cerebral infarction without residual deficits; Z86.711 Personal history of pulmonary embolism; Z86.011 Personal history of benign neoplasm of the brain; Z83.3 Family history of diabetes mellitus; Z82.49 Family history of ischemic heart disease and other diseases of the circulatory system; Z88.1 Allergy status to other antibiotic agents
CPT/HCPCS: 96360; 99285; C8924; 36415; 71045; 80048; 80053; 81001; 82962; 83605; 83690; 83735; 83880; 84145; 84484; 85025; 85610; 85651; 87040; 87086; 87340; 87426; 93005; J1815; J7040; P9046; Q9956; U0003; U0005; G0378

== ENCOUNTER 2021-09-18 11:16 | Emergency (ER) | payer OTHER ==
[~2021-09-18] VITALS: Ht 165.1 cm; Wt 145.4 kg
[~2021-09-18 11:16] MED LIST changes: +ASCO100T4 PO; +ATOR40TA59 PO; +CLONAZEPAM1 MG PO; +CYCL10TA19 PO; -CYCL10TA2 PO; -DULO60CA6 PO; +DULO60CA7 PO; -LEVO500T8 PO; +LEVO500T9 PO
[2021-09-18] MEDS ORDERED: IV RINGERS,LACTATED 1000ML 1,000 ML IV SCH (11:45)
[2021-09-18] MEDS ORDERED: ACETAMINOPHEN 325 MG TABLET. PO ONE (11:45)
--- NOTE | 2021-09-18 11:54 | PHYS DOC ---
Past Medical History Past Medical History: Cancer, CVA, Diabetes-Type II, Hypertension, Other Additional Past Medical Histor: PE, brain tumor,LEUKEMIA,CVA WITH R. SIDED DEFICIT,SBO,ESRD,FOOT DROP Past Surgical History: Appendectomy, Cholecystectomy, , Hysterectomy, Other Additional Past Surgical Histo: LOW BACK, BRAIN SX-TUMOR Smoking Status: Never Smoker Alcohol Use: None Drug Use: None General Adult HPI: HPI: 51-year-old female past medical history of ESRD, diabetes, CVA with right-sided paralysis (bedbound, on eliquis with chronic indwelling Bateman), pAF, HTN, HLD, HFpEF and COPD on 3L NC, presents to the ED brought by EMS from assisted facility, with complaints of fever of three days, rapid covid test came back positive today. Has not had dialysis for the past week and a half, due to being "weaned off" dialysis-facility becky labs today and a U/A yesterday. Is not requiring any more oxygen than baseline. Has been vaccinated for covid. Review of Systems: Review of Systems: Constitutional: Denies chills or rigors Eyes: Denies change in visual acuity. [] HENT: Denies nasal congestion or sore throat. [] Respiratory: Denies cough or shortness of breath. [] Cardiovascular: Denies chest pain or edema. [] GI: Denies abdominal pain, nausea, vomiting, : Denies hematuria or vaginal bleeding Musculoskeletal: Denies back pain or joint pain. [] Integument: Denies rash or diaphoresis Neurologic: Denies headache, focal weakness or sensory changes. [] Endocrine: Denies polyuria or polydipsia. [] Lymphatic: Denies swollen glands. [] Psychiatric: Denies depression or anxiety. [] Heart Score: C/O Chest Pain: No Risk Factors: Risk Factors: DM, Current or recent (<one month) smoker, HTN, HLP, family history of CAD, obesity. Risk Scores: Score 0 - 3: 2.5% MACE over next 6 weeks - Discharge Home Score 4 - 6: 20.3% MACE over next 6 weeks - Admit for Clinical Observation Score 7 - 10: 72.7% MACE over next 6 weeks - Early Invasive Strategies Allergies: Allergies: Allergies Coded Allergies Type Severity Reaction Last Updated Verified azithromycin Allergy Intermediate 10/12/19 Yes codeine Allergy Intermediate 05/06/17 Yes morphine Allergy Intermediate 11/01/19 Yes I S O L A T I O N *CONTACT* Allergy Unknown 11/16/19 Yes Physical Exam: PE: Constitutional: no acute distress, flu appearing but non-toxic appearance. HENT: Normocephalic, atraumatic, Eyes: EOMI, conjunctiva normal, no discharge. Neck: Normal range of motion, supple, Cardiovascular: S1/2 present, tachycardic Lungs & Thorax: Speaking in full sentences, bilateral equal chest rise, no tachypnea or increased work of breathing Abdomen: soft, no tenderness, obese Skin: Warm, dry, no erythema, no rash. [] Extremities: No tenderness, no cyanosis, no unilateral lower extremity edema Neurologic: Alert and oriented X 3, normal motor function, normal sensory function, no focal deficits noted. [] Psychologic: Affect normal, judgement normal, mood normal. [] Bateman: yellow urine w/sediment in bateman (per rn, bateman was changed yesterday) EKG: EK Concern for limb lead discordance, sinus tachycardia 109 bpm, extreme rad, T wave inversion aVL, QTC 468, no ST elevation or ST depression, q waves 2, 3 & aVF 1225 sinus tachycardia 107 bpm, NAD, qtc 473, q waves 2, 3 & aVF, no T wave inversion, no ST elevation or ST depression, no active chest pain Radiology/Procedures: Radiology/Procedures: []IMAGING REPORT Signed PATIENT: ANKIT MCGREGOR LACCOUNT: [id number] : 1970 LOCATION: ER AGE: 51 SEX: F EXAM STATUS: PRE ER ORD. PHYSICIAN: ANKIT REICH DO REASON: fever PROCEDURE: PORTABLE CHEST 1V Exam performed: One view chest. Indication: Reason: fever / Spl. Instructions: / History: Date of Service: 09/18/2021 11:48 AM Comparison: One view chest from 07/27/2021. Single AP upright portable view chest findings: Cardiomediastinal silhouette is within limits of normal. No acute infiltrates, effusion or pneumothorax is detected. There is chronic elevation of the right hemidiaphragm. There is a right-sided dialysis-type catheter in place. The bony structures are normal. Impression: No acute cardiopulmonary process is detected. Electronically signed by: Edna Ha MD (09/18/2021 12:24 PM) [id number] DICTATED and SIGNED BY: EDNA HA MD DATE: 09/18/21 [id number] Course & Med Decision Making: Course & Med Decision Making Pertinent Labs and Imaging studies reviewed. (See chart for details) Concern for fever in the setting of known COVID-19 infection and urinary tract infection. Urinalysis reviewed from prior- sensitive to Bactrim in the past. Repeat map is 79. Patient not requiring any further supplemental oxygen. Pt tolerating oral intake and is nontoxic-appearing. Patient resides in a assisted-no need for inpatient stay at this time. Patient with no persistent hypotension and is nontoxic-appearing. Will discharge home with strict ED return precautions were given for hypotension, altered mental status, worsening fever, dehydration or persistent tachycardia. Encouraged urgent outpatient follow-up with PMD in 24 to 48 hours for reevaluation. Life-threatening processes were considered but are low suspicion at this time, given history, physical exam and ED workup. Pt was educated on all prescription medications and adverse effects. All patient's questions were answered and pt was stable at time of discharge. Life/limb-threatening differential includes but is not limited to, surgical abdomen (appendicitis, cholecystitis, diverticulitis, inflammatory bowel disease, abscess, perforation), meningitis, encephalitis, Rojelio's angina, endocarditis, myocarditis, life-threatening rash (necrotizing fasciitis), gynecologic and urologic emergencies (endometritis, ovarian/testicular torsion, TOA, obstructive nephropathy, prostatitis), head and neck abscess, infection concerning for sepsis or shock, or respiratory failure. I have spoken with the patient and/or caregivers. I explained the patient's condition, diagnoses and treatment plan based on the information available to me at this time. I have answered the patient and/or caregiver's questions and addressed any concerns. The patient and/or caregivers have a good understanding of patient's diagnosis, condition and treatment plan as can be expected at this point. Vital signs have been stable. Patient's condition is stable and appropriate for discharge from the emergency department. Patient will pursue further outpatient evaluation with primary care physician or other designated or consulting physician as outlined in the discharge instructions. The patient and/or caregivers are agreeable to this plan of care and follow-up instructions have been explained in detail. The patient and/or caregivers have received these instructions in written form and have expressed an understanding of the discharge instructions. The patient and/or caregivers are aware that any significant change of condition or worsening of symptoms should prompt immediate return to this or the closest emergency department or call to 911. Amanda Disclaimer: Dragon Disclaimer: This electronic medical record was generated, in whole or in part, using a voice recognition dictation system. Departure Departure Impression: Primary Impression: COVID-19 Additional Impressions: CKD (chronic kidney disease) UTI (urinary tract infection) due to urinary indwelling Bateman catheter Normocytic anemia Disposition: HOME / SELF CARE / HOMELESS Condition: STABLE Referrals: KENROY TAFOYA MD (PCP) Follow-up with your primary care physician in 24 to 48 hours OR FOLLOW UP WITH FAMILY MEDICINE: [id number] [facility], [facility] [address] [place] [address] Patient Instructions: Catheter-Associated Urinary Tract Infection FAQs - ALBARADO Additional Instructions: FOLLOW UP WITH NEPHROLOGY: FOR DEFINITIVE MANAGEMENT of renal disease Nephrology MD [place], [place] [address] [place] [address] FOLLOW UP WITH NEPHROLOGY: FOR DEFINITIVE MANAGEMENT of renal disease Nephkeo John MD, [place] [address] [place] [address] Return to ED immediately if your oxygen level drops below 90% (purchase a pulse oximetry at a medical supply store), difficulties breathing including rapid breathing or increased work of breathing (skin sucking under ribs), chest pain or stroke-like symptoms (facial droop, speech changes, arm/leg weakness). You have been tested for or diagnosed with COVID-19. It is an infection caused by a new type of coronavirus. COVID-19 will cause cold-like or mild flu symptoms in most. It can cause more severe symptoms like problems breathing in some. There is no treatment for COVID-19. The body will clear the infection over time. Self-care will help to ease discomfort. Steps to Take: Self-Care Rest as needed. Healthy habits may help you feel better. Steps include: Choose healthy foods including fruits and vegetables. Drink water throughout the day. Get plenty of sleep each night. If you smoke, try to quit. It may ease breathing. Avoid alcohol. Keep Others Healthy The virus can spread to others. Droplets are released every time you sneeze or cough. The droplets can get into the mouth, nose, or eyes of people near you and lead to infection. To lower the chances of spreading COVID-19 to others: Stay at home until your doctor has said it is safe to leave. If you tested positive this will mean staying isolated until both of the following are true: At least 7 days have passed since the start of illness. You are free of fever for at least 72 hours without the use of medicine. During this time: - Avoid public areas, events, or transportation. Do not return to work or school until your doctor has said it is safe to do so. - Call ahead if you need to go to a medical center. Let them know you may have COVID-19. It will help them guide you where to go. They may also ask you to wear a facemask when you come to the office. - If you call for emergency medical services, let them know you may have COVID- 19. While at home: - Try to avoid close contact with others. Stay about 6 feet away. - If possible, spend most of your time in a separate room from others. - Use a face mask if you will be in close contact with others such as sharing a room or vehicle. - Have someone wipe down common surfaces in the home. Use household guitar instructor every day on areas like doorknobs, counters, or sinks. - Cough or sneeze into a tissue. Throw the tissue away right after use. If a tissue is not available, cough or sneeze into your elbow. - Wash your hands often. Wash them after sneezing or coughing. Use soap and water and wash for at least 20 seconds. Alcohol based hand truck cleaner can be used if soap and water is not available. - Do not prepare food for others. Avoid sharing personal items like forks, spoons, or toothbrushes. - Avoid close contact with pets while you are sick. There is no evidence of the virus passing to pets. This is a safety step until more is known about this virus. Isolation can be frustrating. Social interaction can help. Keep in touch with friends and family through phone and tech options. You can still interact with others in your home, just keep a safe distance of about 6 feet. Follow-up: Your doctors office will check in with you to see if there are any changes in your health. You may be asked to keep track of symptoms to share with them. They will also let you know when you are clear to be in public again. Problems to Look Out For: Contact your doctor if your recovery is not going as you expect. Get emergency care if you have problems such as: - Trouble breathing - Nonstop chest pain or pressure - Changes in awareness, confusion, or problems waking - Lips or face have bluish color - Worsening of symptoms If you think you have an emergency, call for emergency medical services right away. As taken from [facility] Sulfamethoxazole/Trimethoprim (BACTRIM DS TABLET) 1 Each Tablet 1 TAB PO BID for infection for 10 Days, #20 TAB Prov: ANKIT REICH DO 09/18/21 ANKIT REICH DO Sep 18, 2021 11:54
[2021-09-18 12:24] LABS: BASO % 0 % (0-3); EOS % 0 % (0-3); HEMATOCRIT 25.6 % (36.0-47.0); HEMOGLOBIN 8.3 g/dL (12.0-15.5); LYMPH # 1.3 x10^3/uL (1.0-4.8); LYMPH % 30 % (24-48); MEAN CORPUSCULAR HEMOGLOBIN 30 pg (25-35); MEAN CORPUSCULAR HGB CONC 33 g/dL (31-37); MEAN CORPUSCULAR VOLUME 93 fL (79-100); MONO # 0.7 x10^3/uL (0.0-1.1); MONO % 15 % (0-9); NEUT # 2.5 x10^3/uL (1.8-7.7); NEUT % 55 % (31-73); PLATELET COUNT 154 x10^3/uL (140-400); RED BLOOD COUNT 2.77 x10^6/uL (3.50-5.40); WHITE BLOOD COUNT 4.5 x10^3/uL (4.0-11.0)
--- NOTE | 2021-09-18 12:26 | RAD ---
Exam performed: One view chest. Indication: Reason: fever / Spl. Instructions: / History: Date of Service: 09/18/2021 11:48 AM Comparison: One view chest from 07/27/2021. Single AP upright portable view chest findings: Cardiomediastinal silhouette is within limits of normal. No acute infiltrates, effusion or pneumotho rax is detected. There is chronic elevation of the right hemidiaphragm. There is a right-sided dialys is-type catheter in place. The bony structures are normal. Impression: No acute cardiopulmonary process is detected. Electronically signed by: Edna Ha MD (09/18/2021 12:24 PM) [id number]
[2021-09-18 12:32] LABS: CALCIUM 8.9 mg/dL (8.5-10.1); CREATININE 2.1 mg/dL (0.6-1.0); POTASSIUM 4.2 mmol/L (3.5-5.1)
[2021-09-18 12:37] LABS: PROTHROMBIN TIME PATIENT 18.5 SEC (11.7-14.0)
[2021-09-18 12:45] LABS: ALBUMIN 3.2 g/dL (3.4-5.0); DIRECT BILIRUBIN 0.1 mg/dL (0.0-0.2); TOTAL BILIRUBIN 0.3 mg/dL (0.2-1.0); TOTAL PROTEIN 7.2 g/dL (6.4-8.2)
[2021-09-18 13:06] LABS: BILIRUBIN,URINE NEGATIVE (NEG); CLARITY,URINE TURBID; COLOR,URINE YELLOW; NITRITE,URINE POSITIVE (NEG); PH,URINE 5.5 (<5.0-8.0); PROTEIN,URINE NEGATIVE (NEG-TRACE); UROBILINOGEN,URINE 0.2 mg/dL (0.2 mg/dL)
[2021-09-18 13:12] LABS: BACTERIA,URINE MANY /HPF (0-FEW); WBC,URINE TNTC /HPF (0-4)
[2021-09-18 13:14] LABS: RBC,URINE 0 /HPF (0-2)
[2021-09-18 13:28] LABS: INFLUENZA A PATIENT NEGATIVE (NEGATIVE); INFLUENZA B PATIENT NEGATIVE (NEGATIVE)
[2021-09-18] MEDS ORDERED: oxyCODONE IR 5 MG TABLET PO ONE (13:45)
[2021-09-18] MEDS ORDERED: SULF1TAB24 PO (14:17)
[2021-09-18 15:21] VITALS: BP 109/60
--- NOTE | 2021-09-18 15:59 | EKG ---
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
--- NOTE | 2021-09-18 16:00 | EKG ---
[facility] [address] [place] [address] Test Date: 2021-09-18 Test Time: 12:25:28 Pat Name: ANKIT KWONSKY Department: Room: Gender: F Library Page: : 1970 Requested By: ANKIT REICH Order Number: [id number] Reading MD: Aryan Feliz Measurements Intervals [place] Rate: 107 P: 38 OR: 136 QRS: 55 QRSD: 84 T: 54 QT: 350 QTc: 473 Interpretive Statements SINUS TACHYCARDIA QRS(T) CONTOUR ABNORMALITY CONSISTENT WITH INFERIOR INFARCT PROBABLY OLD ABNORMAL ECG Electronically Signed On 09-20-2021 13:30:40 CDT by Aryan Feliz
== END 2021-09-18 16:00 | disposition home or self-care (01) ==
LOC: ER 11:16
DX: U07.1 COVID-19 (principal); T83.511A Infection and inflammatory reaction due to indwelling urethral catheter, initial encounter; N39.0 Urinary tract infection, site not specified; D64.9 Anemia, unspecified; E11.22 Type 2 diabetes mellitus with diabetic chronic kidney disease; I12.0 Hypertensive chronic kidney disease with stage 5 chronic kidney disease or end stage renal disease; N18.6 End stage renal disease; E78.5 Hyperlipidemia, unspecified; J44.9 Chronic obstructive pulmonary disease, unspecified; Z86.73 Personal history of transient ischemic attack (TIA), and cerebral infarction without residual deficits; Z88.1 Allergy status to other antibiotic agents; Z88.5 Allergy status to narcotic agent; Z88.8 Allergy status to other drugs, medicaments and biological substances
CPT/HCPCS: 36415; 71045; 80048; 80076; 81001; 83605; 85025; 85610; 85730; 87040; 87077; 87086; 87186; 87804; 93005; 96360; 99285; J7120; 96365

== ENCOUNTER → 2021-10-22 | Outpatient (CLI) | payer OTHER ==
[~2021-10-22] MED LIST changes: +SULF1TAB24 PO
[2021-10-22] MEDS: GADOTERATE 7.5 MMOL/15ML VIAL. IVP ONE (13:26)
--- NOTE | 2021-10-22 13:54 | RAD ---
EXAMINATION: Magnetic resonance imaging (MRI) of the brain and brainstem without and with contrast 12:38 PM HISTORY: Meningioma TECHNIQUE: Multiplanar multi-weighted MRI of the brain and brainstem was performed without and with i ntravenous contrast using the general brain protocol. Contrast information: 24 mL Gadolinium based contrast COMPARISON: MRI brain 06/05/2021 FINDINGS: Left frontoparietal craniotomy changes are identified for resection of a extra-axial mass. Sclerotic changes of the calvaria are identified. There is a left parafalcine residual extra-axial mass measuri ng 3.3 x 1.9 x 2.4 cm. The mass abuts the superior sagittal sinus with likely invasion. There is asso ciated vasogenic edema within the posterior left frontal lobe and left perirolandic gyri. Linear T2 s uch FLAIR signal hyperintensity identified along the left corticospinal tract suggestive of an area o f demyelination/wallerian degeneration. The corpus callosum is normal in shape and signal intensity. The posterior fossa is unremarkable. The pituitary and sella are normal. The brainstem and cranioc ervical junction are unremarkable. Diffusion weighted images reveal no hyperintensities to suggest acute cerebral infarction. Ventricles , sulci and basal cisterns are prominent compatible with mild generalized cerebral volume loss. The paranasal sinuses are normal. The visualized portions of the mastoids are unremarkable. The orbi ts appear normal. Normal flow voids are demonstrated in the carotid arteries and basilar artery. IMPRESSION: Left parietal parafalcine extra-axial homogeneously enhancing mass appears stable as compared to prio r examination, in keeping with provided history of meningioma. There is associated vasogenic edema wi thin the left perirolandic gyri. There is suspected invasion of the superior sagittal sinus. Electronically signed by: Candice Romo MD (10/22/2021 1:51 PM) [id number]
== END ==
LOC: MRI 11:04
PROVIDERS: ATTEND Radiology Radiation Oncology
DX: D32.0 Benign neoplasm of cerebral meninges (principal)
CPT/HCPCS: 70553; A9575